=== PATIENT | female | born 1945 | race Caucasian/White ===

== ENCOUNTER 2017-03-30 16:43 | Observation (INO) | payer OTHER ==
[~2017-03-30] VITALS: Ht 160 cm; Wt 78.1 kg
[2017-03-30] MEDS ORDERED: SODIUM CHLORIDE 0.9% 1000ML 1,000 ML IV STA (17:08)
--- NOTE | 2017-03-30 17:30 | DIAGNOSTIC IMAGING REPORT ---
CHEST ONE VIEW PORTABLE CLINICAL HISTORY: 72 years-old Female presenting with EVALUATE WEAKNESS, carbon monoxide poisoning. TECHNIQUE: Portable upright AP view of the chest was obtained. COMPARISON: 08/19/2006. FINDINGS: Left subclavian implanted cardiac defibrillator with leads to the right atrium, right ventricular apex, and coronary sinus, which is new from prior exam in 2006. Atherosclerosis of aortic arch. Cardiac silhouette mildly prominent, unchanged. Lungs and pleural spaces clear. Osseous structures normal. Upper abdomen normal. IMPRESSION: 1. No acute cardiopulmonary disease. Electronically signed by: Filiberto Elizabeth M.D. 03/30/2017 5:28 PM Dictated Date/Time: 03/30/2017 5:27 PM
[2017-03-30 17:39] LABS: URINE APPEARANCE CLOUDY (CLEAR); URINE BILIRUBIN NEG (NEG); URINE COLOR YELLOW; URINE EPITHELIAL CELL AUTO >30 /lpf (0-5); URINE NITRITE NEG (NEG); URINE SPECIFIC GRAVITY 1.022 (1.000-1.030); UROBILINOGEN NEG (NEG)
[2017-03-30 17:40] LABS: MANUAL MICROSCOPIC REQUIRED? NO; REVIEW REQ? YES
[2017-03-30] MEDS ORDERED: ASPI81TA28 PO (17:56)
[2017-03-30] MEDS ORDERED: OXYC-609 PO (17:56)
[2017-03-30] MEDS ORDERED: LISI20TA3 PO (17:56)
[2017-03-30] MEDS ORDERED: CTP/1 PO (17:56)
[2017-03-30] MEDS ORDERED: METO100T44 PO (17:56)
[2017-03-30] MEDS ORDERED: AMLO2.5T PO (17:56)
[2017-03-30] MEDS ORDERED: ATOR-24 PO (17:56)
[2017-03-30] MEDS ORDERED: PANT40TA PO (18:01)
[2017-03-30 18:10] LABS: PROTHROMBIN TIME (PATIENT) 10.7 SECONDS (9.0-12.0)
[2017-03-30 18:18] LABS: ALT/SGPT 40 U/L (12-78); BLOOD UREA NITROGEN 53 mg/dl (7-18); BUN/CREATININE RATIO 32.1 (10-20); CALCIUM 8.7 mg/dl (8.5-10.1); CARBON DIOXIDE 27 mmol/L (21-32); CHLORIDE 98 mmol/L (98-107); CREATININE 1.64 mg/dl (0.60-1.20); GLUCOSE 90 mg/dl (70-99); MAGNESIUM 2.1 mg/dl (1.8-2.4); POTASSIUM 3.9 mmol/L (3.5-5.1); SODIUM 131 mmol/L (136-145)
[2017-03-30 18:29] LABS: ALKALINE PHOSPHATASE 73 U/L (45-117); AST/SGOT 56 U/L (15-37); THYROID STIMULATING HORMONE 0.313 uIu/ml (0.300-4.500)
[2017-03-30 18:37] LABS: HEMATOCRIT 38.3 % (37-47); MEAN CELL VOLUME 97.7 fL (80-100); MEAN CORPUSCULAR HEMOGLOBIN 33.2 pg (25-34); MEAN CORPUSCULAR HGB CONC 33.9 g/dl (32-36); MEAN PLATELET VOLUME 12.1 fL (7.4-10.4); PLATELET COUNT 107 K/uL (130-400); RED BLOOD COUNT 3.92 M/uL (4.2-5.4); WHITE BLOOD COUNT 10.16 K/uL (4.8-10.8)
[2017-03-30 18:39] LABS: BASO % 0.1 %; BASO ABS # 0.01 K/uL (0-0.2); COMPLETE YES; EOS % 1.2 %; IG% 0.3 %; LYMPH % 31.6 %; LYMPH ABS # 3.21 K/uL (1.2-3.4); MONO % 10.4 %; NEUT % 56.4 %; PLT ESTIMATE DECREASED
--- NOTE | 2017-03-30 18:52 | DIAGNOSTIC IMAGING REPORT ---
CT SCAN OF THE BRAIN WITHOUT IV CONTRAST CLINICAL HISTORY: Weakness. Change in mental status. COMPARISON STUDY: No priors. TECHNIQUE: Unenhanced axial CT scan of the brain is performed from the vertex to the skull base. CT DOSE: 537.48 mGy.cm FINDINGS: Brain parenchyma: There are age-related involutional changes noting mild subcortical and periventricular microangiopathic change. There is no hemorrhage, mass effect, or evidence of acute territorial ischemia by CT criteria. Roman-white matter is preserved. No extra-axial fluid collection is seen. Ventricles, sulci, cisterns: Prominent secondary to involutional change. Intracranial vasculature: There is atherosclerotic calcification of the cavernous carotid arteries. Calvarium: Unremarkable. Sinuses and mastoids: The visualized paranasal sinuses are clear. The mastoid air cells are well pneumatized. Orbits: The bony orbits are grossly intact. There is a right ocular lens implant. IMPRESSION: There is no hemorrhage, mass effect, or evidence of acute territorial ischemia by CT criteria. Electronically signed by: Saeed Guallpa M.D. 03/30/2017 6:51 PM Dictated Date/Time: 03/30/2017 6:49 PM
--- NOTE | 2017-03-30 20:35 | EMERGENCY ROOM VISIT NOTE ---
History Report prepared by Elida: Cely Naik Under the Supervision of: Dr. Roman Sanabria M.D. First contact with patient: 17:01 Chief Complaint: OTHER COMPLAINT Stated Complaint: CARBON MONOXIDE INTAKE/ COAX4 History of Present Illness The patient is a 72 year old female who presents to the Emergency Room with complaints of an episode of carbon monoxide intake occurring two hours ago. Per nursing staff, the patient was at the doctor today and went out to her car. They state that the patient was found 2 hours later, according to staff at [facility], sleeping in her car with the smell of exhaust. They state that the [place] sewer that found her removed her from the car and she was not able to ambulate on her own. They report that at this time they called 911. The patient states that she was confused last night and [place]. She states that she did today as well. She reports that she went to [facility] today for what she believed was an abscess on her eye. She states that while she was driving there she noticed that she had blurry vision and was struggling to focus her eyes. The patient complains of fatigue, vomiting this week, nausea this week, cough with phlegm production, shortness of breath, shakes recently, and difficulty urinating due to a prolapsed uterus. The patient denies remembering what happened. She notes that her car does have an exhaust leak. The patient notes that her 3 months ago. The patient currently rates her pain as a 4/10 in severity. Pt denies headache, fevers, chills, diaphoresis neck pain, chest pain, abdominal pain, new back pain, melena, hematochezia, numbness, weakness, lymphadenopathy, rash, or other complaints. Source of History: patient, nursing staff Onset: two hours ago Position: other (global) Symptom Intensity: 4/10 Quality: other (global) Timing: other (episode) Associated Symptoms: + cough, + SOB, + nausea, + vomiting, + urinary symptoms, + fatigue Note: The patient complains of vision changes and the shakes. Review of Systems See HPI for pertinent positives and negatives. A total of ten systems were reviewed and were otherwise negative. Past Medical & Surgical Medical Problems: (1) Altered mental status (2) H/O cardiac pacemaker Family History No pertinent family history Social History Smoking Status: Current Every Day Smoker Marital Status: Housing Status: lives alone Current/Historical Medications Scheduled Amlodipine (Norvasc), 2.5 MG PO QAM Aspirin (Aspirin Ec), 81 MG PO QAM Atorvastatin (Lipitor), 40 MG PO QPM Clonidine Hcl (Catapres), 0.1 MG PO BID Lisinopril (Prinivil), 20 MG PO BID Metoprolol Succ (Toprol Xl) (Toprol-Xl ), 100 MG PO QAM Pantoprazole (Protonix), 40 MG PO QAM Scheduled PRN Oxycodone HCl (Oxycodone HCl), 5 MG PO Q6 PRN for Pain Allergies Coded Allergies: NSAIDs (Unverified Allergy, Severe, GI ISSUES, 03/30/17) Isosorbide Nitrate (Unverified Allergy, Unknown, VOMIT/HEADACHE, 03/30/17) Tramadol (Unverified Allergy, Unknown, VOMITING, 03/30/17) Uncoded Allergies: NONSTEROIDAL (Allergy, Mild, 06/26/09) Physical Exam Vital Signs Date Time Temp Pulse Resp B/P (MAP) Pulse Ox O2 Delivery O2 Flow Rate FiO2 03/30/17 19:11 93 18 120/70 93 Room Air 03/30/17 18:17 89 20 96/60 97 Non-Rebreather 15.0 03/30/17 18:13 68 20 107/64 100 Non-Rebreather 15.0 72 107/67 75 93/60 03/30/17 17:22 99 Oxymask 15.0 03/30/17 17:22 99 Mask 15.0 03/30/17 17:20 69 03/30/17 16:57 37.0 64 20 93/58 91 Room Air Physical Exam GENERAL: Awake, alert, mildly depressed appearing, no distress HENT: Normocephalic, atraumatic. TM's normal. Oropharynx unremarkable. EYES: PERRL. EOMI. Normal conjunctiva. Sclera non-icteric. NECK: Supple. No nuchal rigidity. FROM. No JVD or bruit. RESPIRATORY: CTA CARDIAC: RRR. No murmur. ABDOMEN: Soft, non distended. No tenderness to palpation. No rebound or guarding. No masses. RECTAL: Deferred. MUSCULOSKELETAL: Unremarkable. No edema. No discoloration. Gross motor strength symmetric. NEURO: Cranial nerves 2-12 grossly intact. Normal sensorium. No sensory or motor deficits noted. Speech normal. No pronator drift. SKIN: No rash or jaundice noted. LYMPH: No adenopathy. Medical Decision & Procedures ER Provider Diagnostic Interpretation: Radiology results as stated below per my review and radiologist interpretation: CHEST ONE VIEW PORTABLE CLINICAL HISTORY: 72 years-old Female presenting with EVALUATE WEAKNESS, carbon monoxide poisoning. TECHNIQUE: Portable upright AP view of the chest was obtained. COMPARISON: 08/19/2006. FINDINGS: Left subclavian implanted cardiac defibrillator with leads to the right atrium, right ventricular apex, and coronary sinus, which is new from prior exam in 2006. Atherosclerosis of aortic arch. Cardiac silhouette mildly prominent, unchanged. Lungs and pleural spaces clear. Osseous structures normal. Upper abdomen normal. IMPRESSION: 1. No acute cardiopulmonary disease. Electronically signed by: Filiberto Elizabeth M.D. 03/30/2017 5:28 PM Dictated Date/Time: 03/30/2017 5:[address] SCAN OF THE BRAIN WITHOUT IV CONTRAST CLINICAL HISTORY: Weakness. Change in mental status. COMPARISON STUDY: No priors. TECHNIQUE: Unenhanced axial CT scan of the brain is performed from the vertex to the skull base. CT DOSE: 537.48 mGy.cm FINDINGS: Brain parenchyma: There are age-related involutional changes noting mild subcortical and periventricular microangiopathic change. There is no hemorrhage, mass effect, or evidence of acute territorial ischemia by CT criteria. Roman-white matter is preserved. No extra-axial fluid collection is seen. Ventricles, sulci, cisterns: Prominent secondary to involutional change. Intracranial vasculature: There is atherosclerotic calcification of the cavernous carotid arteries. Calvarium: Unremarkable. Sinuses and mastoids: The visualized paranasal sinuses are clear. The mastoid air cells are well pneumatized. Orbits: The bony orbits are grossly intact. There is a right ocular lens implant. IMPRESSION: There is no hemorrhage, mass effect, or evidence of acute territorial ischemia by CT criteria. Electronically signed by: Saeed Guallpa M.D. 03/30/2017 6:51 PM Dictated Date/Time: 03/30/2017 6:49 PM Laboratory Results 03/30/17 17:35 Red Blood Count 3.92, Mean Corpuscular Volume 97.7, Mean Corpuscular Hemoglobin 33.2, Mean Corpuscular Hemoglobin Concent 33.9, Mean Platelet Volume 12.1, Neutrophils (%) (Auto) 56.4, Lymphocytes (%) (Auto) 31.6, Monocytes (%) (Auto) 10.4, Eosinophils (%) (Auto) 1.2, Basophils (%) (Auto) 0.1, Neutrophils # (Auto ) 5.73, Lymphocytes # (Auto) 3.21, Monocytes # (Auto) 1.06, Eosinophils # (Auto ) 0.12, Basophils # (Auto) 0.01 03/30/17 17:35 Test 03/30/17 17:20 03/30/17 17:35 03/30/17 17:44 03/30/17 18:07 Urine Color YELLOW Urine Appearance CLOUDY (CLEAR) Urine pH 5.0 (4.5-7.5) Urine Specific [place] 1.022 (1.000-1.030) Urine Protein TRACE (NEG) Urine Glucose (UA) NEG (NEG) Urine Ketones NEG (NEG) Urine Occult Blood NEG (NEG) Urine Nitrite NEG (NEG) Urine Bilirubin NEG (NEG) Urine Urobilinogen NEG (NEG) Urine Leukocyte Esterase TRACE (NEG) Urine WBC (Auto) 5-10 /hpf (0-5) Urine RBC (Auto) 0-4 /hpf (0-4) Urine Hyaline Casts (Auto) 10-30 /lpf (0-5) Urine Epithelial Cells (Auto) >30 /lpf (0-5) Urine Bacteria (Auto) NEG (NEG) Urine Crystals CALCIUM OXALATE (NONE White Blood Count 10.16 K/uL (4.8-10.8) Red Blood Count 3.92 M/uL (4.2-5.4) Hemoglobin 13.0 g/dL (12.0-16.0) Hematocrit 38.3 % (37-47) Mean Corpuscular Volume 97.7 fL (80-100) Mean Corpuscular Hemoglobin 33.2 pg (25-34) Mean Corpuscular Hemoglobin Concent 33.9 g/dl (32-36) Platelet Count 107 K/uL (130-400) Mean Platelet Volume 12.1 fL (7.4-10.4) Neutrophils (%) (Auto) 56.4 % Lymphocytes (%) (Auto) 31.6 % Monocytes (%) (Auto) 10.4 % Eosinophils (%) (Auto) 1.2 % Basophils (%) (Auto) 0.1 % Neutrophils # (Auto) 5.73 K/uL (1.4-6.5) Lymphocytes # (Auto) 3.21 K/uL (1.2-3.4) Monocytes # (Auto) 1.06 K/uL (0.11-0.59) Eosinophils # (Auto) 0.12 K/uL (0-0.5) Basophils # (Auto) 0.01 K/uL (0-0.2) RDW Standard Deviation 46.7 fL (36.4-46.3) RDW Coefficient of Variation 13.1 % (11.5-14.5) Immature Granulocyte % (Auto) 0.3 % Immature Granulocyte # (Auto) 0.03 K/uL (0.00-0.02) Platelet Estimate DECREASED Prothrombin Time 10.7 SECONDS (9.0-12.0) Prothromb Time International Ratio 1.0 (0.9-1.1) Activated Partial Thromboplast Time 25.5 SECONDS (21.0-31.0) Partial Thromboplastin Ratio 1.0 Anion Gap 7.0 mmol/L (3-11) Est Creatinine Clear Calc Drug Dose 31.1 ml/min Estimated GFR () 36.3 Estimated GFR (Non- 31.4 BUN/Creatinine Ratio 32.1 (10-20) Calcium Level 8.7 mg/dl (8.5-10.1) Magnesium Level 2.1 mg/dl (1.8-2.4) Total Bilirubin 0.8 mg/dl (0.2-1) Direct Bilirubin 0.3 mg/dl (0-0.2) Aspartate Amino Transf (AST/SGOT) 56 U/L (15-37) Alanine Aminotransferase (ALT/SGPT) 40 U/L (12-78) Alkaline Phosphatase 73 U/L (45-117) Troponin I < 0.015 ng/ml (0-0.045) Total Protein 6.9 gm/dl (6.4-8.2) Albumin 3.3 gm/dl (3.4-5.0) Lipase 177 U/L (73-393) Thyroid Stimulating Hormone (TSH) 0.313 uIu/ml (0.300-4.500) Bedside Glucose 93 mg/dl (70-90) Carboxyhemoglobin 2.2 % [facility] results reviewed by me Medications Administered Medications (Trade) Dose Ordered Sig/Dnaiel Route Start Time Stop Time Status Last Admin Dose Admin Sodium Chloride 1,000 ml @ 125 mls/hr Q8H STAT IV 03/30/17 17:08 03/31/17 01:07 03/30/17 18:11 125 MLS/HR ECG Indication: toxicologic Rate (beats per minute): 63 Rhythm: other (paced rhythm) Findings: no acute ischemic change, no ectopy ED Course 1704: The patient was evaluated in room C11B. A complete history and physical exam was performed. 1707: Ordered NSS 1000 ml @ 125 mls/hr IV. 1937: I reevaluated the patient and she was resting comfortably. I updated her on her test results. 1941: Discussed the patient's case with Dr. Shin. The patient will be evaluated for further treatment and disposition. Medical Decision Triage Nursing notes reviewed. The patient's presentation and history were concerning for AMS. Etiologies such as metabolic, infection, hypo/hyperglycemia, electrolyte abnormalities, cardiac sources, intracerebral event, toxicologic, neurologic, as well as others were entertained. Patient was evaluated. She had a nonfocal examination. She noted confusion over the last [address] was unremarkable. Chest x-ray revealed no acute pathology. Her metabolic workup revealed some mild dehydration on chemistry panel. She had no significant abnormalities on CBC. She has a mild thrombocytopenia. The patient had an unremarkable urinalysis. She was hydrated. She was given dinner. Because of the confusion and situation further evaluation and management in the hospital was felt to be appropriate. The patient had a consultation placed with internal medicine. She was evaluated in the Emergency Room for further management. Medication Reconcilliation Current Medication List: was personally reviewed by me Blood Pressure Screening Patient's blood pressure: Normal blood pressure Will be further monitored by hospitalist. Consults Time Called: 1931 Consulting Physician: Dr. Pratik Henry Returned Call: 1941 Discussed the patient's case with Dr. Shin. The patient will be evaluated for further treatment and disposition. Impression Primary Impression: Altered mental status Additional Impression: Dehydration Scribe Attestation The scribe's documentation has been prepared under my direction and personally reviewed by me in its entirety. I confirm that the note above accurately reflects all work, treatment, procedures, and medical decision making performed by me. Departure Information Dispostion Being Evaluated By Hospitalist Referrals Rikki Beaulieu M.D. (PCP) Patient Instructions My [facility] Problem Qualifiers
[2017-03-30] MEDS ORDERED: NTRGSL/4 UT (20:48)
[2017-03-30] MEDS ORDERED: AMOX875T PO (20:48)
[2017-03-30] MEDS ORDERED: ACETAMINOPHEN 325 MG TAB PO PRN (21:00)
[2017-03-30 21:02] VITALS: BP 86/54; PULSE 75; TEMP 37; Ht 160 cm; Wt 78.1 kg
[2017-03-30] MEDS ORDERED: IV FLUIDS COMPLETED PRN (21:15)
[2017-03-30 22:39] VITALS: BP 83/53; PULSE 72; TEMP 37.2; O2SAT 95
--- NOTE | 2017-03-30 22:53 | History and Physical ---
History & Physical Date & Time of Service: Mar 30, 2017 at 20:45 Chief Complaint: Carbon Monoxide Intake/ Coax4 Primary Care Physician: Roman Ennis III, M.D. History of Present Illness Source: patient, clinic records, hospital records, friend 72 year old female with PMH LV mural thrombus, pacemaker, Dyslipidemia, Ischemic cardiomyopathy was brought to the Emergency Room with complaints of altered mental status. As per [facility] document Pt was at the [facility] to see Dr. Giron for cellulitis of right eyelid for which she was given Augmentin. She was sent home. Pt was found by a bystander in the parking lot inside her car with the engine one. As per ER chart, She was found 2 hours later after her office appointment, sleeping in her car with the smell of exhaust. She said that her car has an exhaust leaks. She was assessed by the [facility] staff and she was found to be confused and weak. Pt said that she had been vomiting for the last 4 days. She said that last night she got lost because she was not able to find her way to go home. She said that she recently moved to a new house about 1 week ago and she is not very familiar with the area. She said that she could not see well because of the right eyelid cellulitis that caused her to have blurry vision. Pt lost her 3 months ago. She said that her urine has been very concentrated. Currently she said that she feels better. she said that she is having neck pain because she fell asleep in her car. She denies any chest pain, palpitation, dizziness and SOB. Family History No pertinent family history Social History Smoking Status: Current Every Day Smoker Marital Status: Multi-Drug Resistant Organisms History of MDRO: No Allergies Coded Allergies: NSAIDs (Unverified Allergy, Severe, GI ISSUES, 03/30/17) Isosorbide Nitrate (Unverified Allergy, Unknown, VOMIT/HEADACHE, 03/30/17) Tramadol (Unverified Allergy, Unknown, VOMITING, 03/30/17) Uncoded Allergies: NONSTEROIDAL (Allergy, Mild, 06/26/09) Home Medications Scheduled Amlodipine (Norvasc), 2.5 MG PO QAM Amoxicillin & Pot Clavulanate (Augmentin 875-125 mg), 875 MG PO BID Aspirin (Aspirin Ec), 81 MG PO QAM Atorvastatin (Lipitor), 40 MG PO QPM Clonidine Hcl (Catapres), 0.1 MG PO BID Lisinopril (Prinivil), 20 MG PO BID Metoprolol Succ (Toprol Xl) (Toprol-Xl ), 100 MG PO QAM Nitroglycerin (Nitrostat), 0.4 MG UT PRN Pantoprazole (Protonix), 40 MG PO QAM Scheduled PRN Oxycodone HCl (Oxycodone HCl), 5 MG PO Q6 PRN for Pain Review of Systems Constitutional: + weakness, No fever, No chills Eyes: + worsening of vision, + diplopia ENT: No nasal symptoms, No sore throat Respiratory: No cough, No wheezing, No shortness of breath Cardiovascular: No chest pain, No orthopnea, No palpitations Abdomen: + nausea, + vomiting, No pain Musculoskeletal: No swelling, No calf pain Genitourinary - Female: + problem reported (urine concentrate) Neurologic: + weakness, + problem reported (altered mental status) Psychiatric: No substance abuse Endocrine: + fatigue Hematologic / Lymphatic: No abnormal bleeding/bruising Integumentary: No rash, No itch Physical Exam Vital Signs Date Time Temp Pulse Resp B/P (MAP) Pulse Ox O2 Delivery O2 Flow Rate FiO2 03/30/17 19:11 93 18 120/70 93 Room Air 03/30/17 18:17 89 20 96/60 97 Non-Rebreather 15.0 03/30/17 18:13 68 20 107/64 100 Non-Rebreather 15.0 72 107/67 75 93/60 03/30/17 17:22 99 Oxymask 15.0 03/30/17 17:22 99 Mask 15.0 03/30/17 17:20 69 03/30/17 16:57 37.0 64 20 93/58 91 Room Air General Appearance: WD/WN, no apparent distress Head: normocephalic, atraumatic Eyes: PERRL, EOMI, + pertinent finding (inferior right eyelid swelling) ENT: hearing grossly normal Neck: no JVD, trachea midline Respiratory/Chest: lungs clear, normal breath sounds, no respiratory distress, no accessory muscle use Cardiovascular: regular rate, rhythm, no JVD Abdomen/GI: normal bowel sounds, soft Back: no CVA tenderness Extremities/Musculoskelatal: no calf tenderness, no pedal edema Neurologic/Psych: neuro ophthalmologist II-XII nml as tested, no motor/sensory deficits, alert, normal mood/affect, oriented x 3 Skin: warm/dry, no rash Diagnostics Laboratory Results Results Past 24 Hours Test 03/30/17 17:20 03/30/17 17:35 03/30/17 17:44 03/30/17 18:07 Range/Units Urine Color YELLOW Urine Appearance CLOUDY CLEAR Urine pH 5.0 4.5-7.5 Urine Specific [place] 1.022 1.000-1.030 Urine Protein TRACE NEG Urine Glucose (UA) NEG NEG Urine Ketones NEG NEG Urine Occult Blood NEG NEG Urine Nitrite NEG NEG Urine Bilirubin NEG NEG Urine Urobilinogen NEG NEG Urine Leukocyte Esterase TRACE NEG Urine WBC (Auto) 5-10 0-5 /hpf Urine RBC (Auto) 0-4 0-4 /hpf Urine Hyaline Casts (Auto) 10-30 0-5 /lpf Urine Epithelial Cells (Auto) >30 0-5 /lpf Urine Bacteria (Auto) NEG NEG Urine Crystals CALCIUM OXALATE NONE PRSENT White Blood Count 10.16 4.8-10.8 K/uL Red Blood Count 3.92 4.2-5.4 M/uL Hemoglobin 13.0 12.0-16.0 g/dL Hematocrit 38.3 37-47 % Mean Corpuscular Volume 97.7 80-100 fL Mean Corpuscular Hemoglobin 33.2 25-34 pg Mean Corpuscular Hemoglobin Concent 33.9 32-36 g/dl Platelet Count 107 130-400 K/uL Mean Platelet Volume 12.1 7.4-10.4 fL Neutrophils (%) (Auto) 56.4 % Lymphocytes (%) (Auto) 31.6 % Monocytes (%) (Auto) 10.4 % Eosinophils (%) (Auto) 1.2 % Basophils (%) (Auto) 0.1 % Neutrophils # (Auto) 5.73 1.4-6.5 K/uL Lymphocytes # (Auto) 3.21 1.2-3.4 K/uL Monocytes # (Auto) 1.06 0.11-0.59 K/uL Eosinophils # (Auto) 0.12 0-0.5 K/uL Basophils # (Auto) 0.01 0-0.2 K/uL RDW Standard Deviation 46.7 36.4-46.3 fL RDW Coefficient of Variation 13.1 11.5-14.5 % Immature Granulocyte % (Auto) 0.3 % Immature Granulocyte # (Auto) 0.03 0.00-0.02 K/uL Platelet Estimate DECREASED Prothrombin Time 10.7 9.0-12.0 SECONDS Prothromb Time International Ratio 1.0 0.9-1.1 Activated Partial Thromboplast Time 25.5 21.0-31.0 SECONDS Partial Thromboplastin Ratio 1.0 Sodium Level 131 136-145 mmol/L Potassium Level 3.9 3.5-5.1 mmol/L Chloride Level 98 98-107 mmol/L Carbon Dioxide Level 27 21-32 mmol/L Anion Gap 7.0 3-11 mmol/L Blood Urea Nitrogen 53 7-18 mg/dl Creatinine 1.64 0.60-1.20 mg/dl Est Creatinine Clear Calc Drug Dose 31.1 ml/min Estimated GFR () 36.3 Estimated GFR (Non- 31.4 BUN/Creatinine Ratio 32.1 10-20 Random Glucose 90 70-99 mg/dl Calcium Level 8.7 8.5-10.1 mg/dl Magnesium Level 2.1 1.8-2.4 mg/dl Total Bilirubin 0.8 0.2-1 mg/dl Direct Bilirubin 0.3 0-0.2 mg/dl Aspartate Amino Transf (AST/SGOT) 56 15-37 U/L Alanine Aminotransferase (ALT/SGPT) 40 12-78 U/L Alkaline Phosphatase 73 45-117 U/L Troponin I < 0.015 0-0.045 ng/ml Total Protein 6.9 6.4-8.2 gm/dl Albumin 3.3 3.4-5.0 gm/dl Lipase 177 73-393 U/L Thyroid Stimulating Hormone (TSH) 0.313 0.300-4.500 uIu/ml Bedside Glucose 93 70-90 mg/dl Carboxyhemoglobin 2.2 % [facility] Microbiology Results 03/30/17 Urine Culture, Received Pending Diagnostic Radiology CT SCAN OF THE BRAIN WITHOUT IV CONTRAST CLINICAL HISTORY: Weakness. Change in mental status. COMPARISON STUDY: No priors. TECHNIQUE: Unenhanced axial CT scan of the brain is performed from the vertex to the skull base. CT DOSE: 537.48 mGy.cm FINDINGS: Brain parenchyma: There are age-related involutional changes noting mild subcortical and periventricular microangiopathic change. There is no hemorrhage, mass effect, or evidence of acute territorial ischemia by CT criteria. Roman-white matter is preserved. No extra-axial fluid collection is seen. Ventricles, sulci, cisterns: Prominent secondary to involutional change. Intracranial vasculature: There is atherosclerotic calcification of the cavernous carotid arteries. Calvarium: Unremarkable. Sinuses and mastoids: The visualized paranasal sinuses are clear. The mastoid air cells are well pneumatized. Orbits: The bony orbits are grossly intact. There is a right ocular lens implant. IMPRESSION: There is no hemorrhage, mass effect, or evidence of acute territorial ischemia by CT criteria. Electronically signed by: Saeed Guallpa M.D. 03/30/2017 6:51 PM Dictated Date/Time: 03/30/2017 6:49 PM CHEST ONE VIEW PORTABLE CLINICAL HISTORY: 72 years-old Female presenting with EVALUATE WEAKNESS, carbon monoxide poisoning. TECHNIQUE: Portable upright AP view of the chest was obtained. COMPARISON: 08/19/2006. FINDINGS: Left subclavian implanted cardiac defibrillator with leads to the right atrium, right ventricular apex, and coronary sinus, which is new from prior exam in 2006. Atherosclerosis of aortic arch. Cardiac silhouette mildly prominent, unchanged. Lungs and pleural spaces clear. Osseous structures normal. Upper abdomen normal. IMPRESSION: 1. No acute cardiopulmonary disease. Electronically signed by: Filiberto Elizabeth M.D. 03/30/2017 5:28 PM Dictated Date/Time: 03/30/2017 5:27 PM The status of this report is Signed. Impression Assessment and Plan Altered Mental Status Etiology Unknown Possible related to dehydration CT head showed no acute intracranial abnormality No focal neuro deficit Carboxyhemoglobin wnl UA showed trace leukocytes Continue neuro check Received IVF Unable to get MRI head due to pacemaker If symptoms reoccurs or develops any focal neuro deficit recommend to repeat CT head tomorrow PT/OT eval fall precaution Acute kidney injury Mostly related to hypovolemia, dehydration due to recent GI symptoms ( vomiting) Creatine on admission 1.64 Last creatine was 0.7 on 08/03 Received IVF 1L NS hold Lisinopril Avoid nephrotoxic agents Monitor BMP Viral Gastroenteritis Tolerated diet Received IVF symptoms resolved Hypotension Related to Hypovolemia/ dehydration Hold BP med for now Continue monitor BP Biventricular Pacemaker/ AICD Stable Weakness Fall precaution PT/OT CAD/Ischemic Cardiomyopathy Denies any chest pain Continue Lipitor/Asa Metoprolol on hold due to low BP Continue monitor in telemetry Recent ECHO on 03/07 The examination is adequate to evaluate the referral indication. The left ventricular cavity size is normal. The wall thickness is mildly increased in segments with normal wall motion. There is severe hypokinesis of the base and mid level wall segments of the inferior inferoseptal celeste and basal posterior wall. The qualitative LV ejection fraction is 4549% (mildly reduced). The left ventricular diastolic function is mildly abnormal (grade I). There is no left ventricular mural thrombus. No significant valvular disease is present. DVT px on heparin subq Code Status DNR Disposition Discharge home tomorrow if medically stable Level of Care Telemetry Resuscitation Status DO NOT RESUSCITATE VTE Prophylaxis VTE Risk Assessment Done? Y/N: Yes Risk Level: Moderate Given or contraindicated: Unfractionated heparin SQ
[2017-03-30] MEDS: AMOXICILLIN/CLAVULANATE TAB 875 MG TAB PO SCH (23:03)
[2017-03-30] MEDS: OXYCODONE HCL IR 5 MG TAB (IMMEDIATE RELEASE) PO PRN (23:04)
[2017-03-30] MEDS: ATORVASTATIN 20 MG TAB PO SCH (23:04)
[2017-03-30] MEDS: HEPARIN SOD 5000 UNIT/0.5 ML CARP SQ SCH (23:04)
[2017-03-30 23:49] VITALS: BP 80/51; PULSE 74; TEMP 36.7; O2SAT 91
[2017-03-31] VITALS (8 sets, daily range): BP systolic 85–128; BP diastolic 57–92; PULSE 77–92; TEMP 36.7–37.5; O2SAT 92–97
[2017-03-31] MEDS ORDERED: SODIUM CHLORIDE 0.9% 1000ML 1,000 ML IV SCH (01:15)
[2017-03-31] MEDS: HEPARIN SOD 5000 UNIT/0.5 ML CARP SQ SCH ×3 (05:51→20:58)
[2017-03-31 06:59] LABS: BUN/CREATININE RATIO 33.9 (10-20); CREATININE 1.1 mg/dl (0.60-1.20)
[2017-03-31 07:12] LABS: HEMATOCRIT 36.8 % (37-47); MEAN CELL VOLUME 97.6 fL (80-100); MEAN CORPUSCULAR HEMOGLOBIN 31.3 pg (25-34); MEAN CORPUSCULAR HGB CONC 32.1 g/dl (32-36); MEAN PLATELET VOLUME 12.3 fL (7.4-10.4); PLATELET COUNT 97 K/uL (130-400); RED BLOOD COUNT 3.77 M/uL (4.2-5.4)
[2017-03-31 07:13] LABS: PLT ESTIMATE DECREASED
[2017-03-31] MEDS: ASPIRIN 81 MG ECTAB PO SCH (07:58)
[2017-03-31] MEDS: PANTOprazole SOD 40 MG TAB PO SCH (07:58)
[2017-03-31] MEDS: AMOXICILLIN/CLAVULANATE TAB 875 MG TAB PO SCH ×2 (07:58→16:48)
[2017-03-31] MEDS ORDERED: SODIUM CHLORIDE 0.9% 500ML 500 ML IV ONE (11:30)
[2017-03-31] MEDS: SODIUM CHLORIDE 0.9% 1000ML 1,000 ML IV SCH ×2 (12:15→21:58)
[2017-03-31] MEDS: OXYCODONE HCL IR 5 MG TAB (IMMEDIATE RELEASE) PO PRN (13:48)
--- NOTE | 2017-03-31 16:48 | Progress Note ---
Internal Med Progress Note Date of Service: Mar 31, 2017. Provider Documentation: SUBJECTIVE: resting comfortably denies any chest pain or sob no nausea today tolerating regular diet says since last four days was having vomiting yesterday after seeing pcp for right eye lid infection when she went to car she suddenly passed out. Says felt somewhat shivering before passed out and dont remember what happened later.Denies any incontinence OBJECTIVE: Vital Signs-as noted below Exam: General-alert and oriented. Not in distress ENT-normal hearing Neck-no neck masses Lungs- cta b/l no wheezing or crackles Heart-s1 and s2 heard regular rate and rhythm no murmurs Abdomen-soft bowel sounds present no tenderness present no distension Extremities-no edema no erythema Neuro-alert and oriented moves extremities Lab data as noted below. ASSESSMENT & PLAN: Altered Mental Status Syncope CT head showed no acute intracranial abnormality Carboxyhemoglobin wnl Unable to get MRI head due to pacemaker possible dehydration as was having vomiting last few days and BP on lower side in ER IV fluids pace maker interrogation, echo, carotid Doppler and eeg monitor in tele Acute kidney injury Mostly related to hypovolemia, dehydration due to recent GI symptoms ( vomiting) Creatine on admission 1.64 holding Lisinopril on fluids resolved Viral Gastroenteritis n/v for last few days Tolerated regular diet today symptoms resolved Hypotension Related to Hypovolemia/ dehydration Holding BP med for now on iv fluids will monitor Biventricular Pacemaker/ AICD will do pace maker check Weakness Fall precaution PT/OT CAD/Ischemic Cardiomyopathy asymptomatic Continue Lipitor/Asa Metoprolol on hold due to low BP f/u echo. DVT px on heparin subq Code Status DNR Disposition pt/ot to be determined Vital Signs: Date Time Temp Pulse Resp B/P (MAP) Pulse Ox O2 Delivery O2 Flow Rate FiO2 03/31/17 12:39 37.5 77 16 109/62 (78) 94 03/31/17 12:00 Room Air 03/31/17 08:00 Room Air 03/31/17 07:29 37.2 77 18 93/58 (70) 92 Room Air 03/31/17 04:00 Room Air 03/31/17 03:55 36.7 79 16 91/57 (68) 94 Room Air 03/31/17 00:25 16 85/57 (66) Room Air 03/31/17 00:00 Room Air 03/30/17 23:49 36.7 74 16 80/51 (61) 91 Room Air 03/30/17 22:39 37.2 72 17 83/53 (63) 95 03/30/17 21:58 73 18 86/54 93 03/30/17 21:11 75 18 83/59 94 Room Air 03/30/17 21:02 37.0 75 18 86/54 Room Air 03/30/17 19:11 93 18 120/70 93 Room Air 03/30/17 18:17 89 20 96/60 97 Non-Rebreather 15.0 03/30/17 18:13 68 20 107/64 100 Non-Rebreather 15.0 72 107/67 75 93/60 03/30/17 17:22 99 Oxymask 15.0 03/30/17 17:22 99 Mask 15.0 03/30/17 17:20 69 03/30/17 16:57 37.0 64 20 93/58 91 Room Air Lab Results: Results Past 24 Hours Test 03/30/17 17:20 03/30/17 17:34 03/30/17 17:35 03/30/17 17:44 Range/Units Urine Color YELLOW Urine Appearance CLOUDY CLEAR Urine pH 5.0 4.5-7.5 Urine Specific [place] 1.022 1.000-1.030 Urine Protein TRACE NEG Urine Glucose (UA) NEG NEG Urine Ketones NEG NEG Urine Occult Blood NEG NEG Urine Nitrite NEG NEG Urine Bilirubin NEG NEG Urine Urobilinogen NEG NEG Urine Leukocyte Esterase TRACE NEG Urine WBC (Auto) 5-10 0-5 /hpf Urine RBC (Auto) 0-4 0-4 /hpf Urine Hyaline Casts (Auto) 10-30 0-5 /lpf Urine Epithelial Cells (Auto) >30 0-5 /lpf Urine Bacteria (Auto) NEG NEG Urine Crystals CALCIUM OXALATE NONE PRSENT Hepatitis C Antibody Screen PRELIM POS NEG White Blood Count 10.16 4.8-10.8 K/uL Red Blood Count 3.92 4.2-5.4 M/uL Hemoglobin 13.0 12.0-16.0 g/dL Hematocrit 38.3 37-47 % Mean Corpuscular Volume 97.7 80-100 fL Mean Corpuscular Hemoglobin 33.2 25-34 pg Mean Corpuscular Hemoglobin Concent 33.9 32-36 g/dl Platelet Count 107 130-400 K/uL Mean Platelet Volume 12.1 7.4-10.4 fL Neutrophils (%) (Auto) 56.4 % Lymphocytes (%) (Auto) 31.6 % Monocytes (%) (Auto) 10.4 % Eosinophils (%) (Auto) 1.2 % Basophils (%) (Auto) 0.1 % Neutrophils # (Auto) 5.73 1.4-6.5 K/uL Lymphocytes # (Auto) 3.21 1.2-3.4 K/uL Monocytes # (Auto) 1.06 0.11-0.59 K/uL Eosinophils # (Auto) 0.12 0-0.5 K/uL Basophils # (Auto) 0.01 0-0.2 K/uL RDW Standard Deviation 46.7 36.4-46.3 fL RDW Coefficient of Variation 13.1 11.5-14.5 % Immature Granulocyte % (Auto) 0.3 % Immature Granulocyte # (Auto) 0.03 0.00-0.02 K/uL Platelet Estimate DECREASED Prothrombin Time 10.7 9.0-12.0 SECONDS Prothromb Time International Ratio 1.0 0.9-1.1 Activated Partial Thromboplast Time 25.5 21.0-31.0 SECONDS Partial Thromboplastin Ratio 1.0 Sodium Level 131 136-145 mmol/L Potassium Level 3.9 3.5-5.1 mmol/L Chloride Level 98 98-107 mmol/L Carbon Dioxide Level 27 21-32 mmol/L Anion Gap 7.0 3-11 mmol/L Blood Urea Nitrogen 53 7-18 mg/dl Creatinine 1.64 0.60-1.20 mg/dl Est Creatinine Clear Calc Drug Dose 31.1 ml/min Estimated GFR () 36.3 Estimated GFR (Non- 31.4 BUN/Creatinine Ratio 32.1 10-20 Random Glucose 90 70-99 mg/dl Calcium Level 8.7 8.5-10.1 mg/dl Magnesium Level 2.1 1.8-2.4 mg/dl Total Bilirubin 0.8 0.2-1 mg/dl Direct Bilirubin 0.3 0-0.2 mg/dl Aspartate Amino Transf (AST/SGOT) 56 15-37 U/L Alanine Aminotransferase (ALT/SGPT) 40 12-78 U/L Alkaline Phosphatase 73 45-117 U/L Troponin I < 0.015 0-0.045 ng/ml Total Protein 6.9 6.4-8.2 gm/dl Albumin 3.3 3.4-5.0 gm/dl Lipase 177 73-393 U/L Thyroid Stimulating Hormone (TSH) 0.313 0.300-4.500 uIu/ml Bedside Glucose 93 70-90 mg/dl Test 03/30/17 18:07 03/31/17 06:04 03/31/17 12:38 Range/Units Carboxyhemoglobin 2.2 % [facility] White Blood Count 5.90 4.8-10.8 K/uL Red Blood Count 3.77 4.2-5.4 M/uL Hemoglobin 11.8 12.0-16.0 g/dL Hematocrit 36.8 37-47 % Mean Corpuscular Volume 97.6 80-100 fL Mean Corpuscular Hemoglobin 31.3 25-34 pg Mean Corpuscular Hemoglobin Concent 32.1 32-36 g/dl RDW Standard Deviation 46.1 36.4-46.3 fL RDW Coefficient of Variation 13.1 11.5-14.5 % Platelet Count 97 130-400 K/uL Mean Platelet Volume 12.3 7.4-10.4 fL Platelet Estimate DECREASED Sodium Level 137 136-145 mmol/L Potassium Level 4.0 3.5-5.1 mmol/L Chloride Level 104 98-107 mmol/L Carbon Dioxide Level 26 21-32 mmol/L Anion Gap 7.0 3-11 mmol/L Blood Urea Nitrogen 37 7-18 mg/dl Creatinine 1.10 0.60-1.20 mg/dl Est Creatinine Clear Calc Drug Dose 47.4 ml/min Estimated GFR () 58.9 Estimated GFR (Non- 50.8 BUN/Creatinine Ratio 33.9 10-20 Random Glucose 121 70-99 mg/dl Calcium Level 8.0 8.5-10.1 mg/dl Troponin I < 0.015 0-0.045 ng/ml Microbiology Results 03/30/17 Urine Culture - Preliminary, Resulted NO GROWTH - LESS THAN 1,000 COLONIES/...
--- NOTE | 2017-03-31 17:26 | ECHOCARDIOGRAM REPORT ---
*NOTICE TO RECEIVING CONSTITUTION PARTY AGENCY This information is strictly Confidential and protected under [place] law. [place] law prohibits you from making any further disclosure of this information unless further disclosure is expressly permitted by the written consent of the person to whom it pertains or is authorized by law. A general authorization for the release of medical or other information is not sufficient for this purpose. Hospital accepts no responsibility if the information is made available to any other person, INCLUDING THE PATIENT. Interpretation Summary * Name: JEAN-CLAUDE MIRELES Study Date: 03/31/2017 12:31 PM BP: 93/58 mmHg * Patient Location: .[facility]\S\N286\S\2 HR: 77 * : 1945 (M/d/yyyy) Gender: Female Height: 62 in * Age: 72 yrs Ethnicity: CA Weight: 169 lb * Ordering Physician: Humberto Rosenberg * Referring Physician: Self, Referred * Performed By: Danita Santiago RDCS * * Reason For Study: Syncope * BSA: 1.8 m2 * -- Conclusions -- * The left ventricle is normal in size. * There is normal left ventricular wall thickness. * There is severe hypokinesis of the base and mid level wall segments of the inferior inferoseptal celeste and basal posterior wall. * Apical wall motion abnormality may reflect pacemaker activation. * Ejection Fraction = 50-55%. * Grade I diastolic dysfunction, (abnormal relaxation pattern). * Aortic valve sclerosis mild, without significant aortic valvular stenosis. Procedure Details * A complete two-dimensional transthoracic echocardiogram was performed (2D, M-mode, Doppler and color flow Doppler). Left Ventricle * The left ventricle is normal in size. * There is normal left ventricular wall thickness. * Ejection Fraction = 50-55%. * Apical wall motion abnormality may reflect pacemaker activation. * There is severe hypokinesis of the base and mid level wall segments of the inferior inferoseptal celeste and basal posterior wall. Right Ventricle * The right ventricle is normal in size and function. * There is a pacemaker lead in the right ventricle. Atria * The left atrial size is normal. * Right atrial size is normal. * No ASD detected; PFO is not assessed. Mitral Valve * The mitral valve is normal. * There is no mitral valve stenosis. * There is trace mitral regurgitation. Tricuspid Valve * The tricuspid valve anatomy is normal. * There is no tricuspid stenosis. * There is trace tricuspid regurgitation. * Doppler findings do not suggest pulmonary hypertension. Aortic Valve * The aortic valve is trileaflet. * Aortic valve sclerosis mild, without significant aortic valvular stenosis. * No hemodynamically significant valvular aortic stenosis. * No aortic regurgitation is present. Pulmonic Valve * The pulmonic valve is not well visualized. Great Vessels * The aortic root is normal size. Pericardium/Pleural * There is no pericardial effusion. Great Vessels * Normal inferior vena cava diameter and respiratory variation suggests normal central venous pressure. Left Ventricular Diastolic Function * Grade I diastolic dysfunction, (abnormal relaxation pattern). MMode 2D Measurements and Calculations IVSd 0.88 cm IVSs 1.1 cm LVIDd 4.7 cm LVIDs 3.3 cm LVPWd 1.0 cm LVPWs 1.6 cm IVS/LVPW 0.85 FS 30.3 % EDV(Teich) 103.6 ml ESV(Teich) 43.9 ml EF(Teich) 57.7 % EDV(cubed) 105.5 ml ESV(cubed) 35.7 ml EF(cubed) 66.2 % % IVS thick 27.9 % % LVPW thick 53.8 % LV mass(C)d 156.6 grams LV mass(C)dI 88.0 grams/m\S\2 LV mass(C)s 151.7 grams LV mass(C)sI 85.2 grams/m\S\2 SV(Teich) 59.8 ml SI(Teich) 33.6 ml/m\S\2 SV(cubed) 69.8 ml SI(cubed) 39.2 ml/m\S\2 Ao root diam 2.8 cm Ao root area 6.3 cm\S\2 ACS 1.9 cm LA dimension 3.6 cm LA/Ao 1.3 LVOT diam 1.9 cm LVOT area 2.8 cm\S\2 LVAd ap4 29.1 cm\S\2 LVLd ap4 8.0 cm EDV(MOD-sp4) 89.1 ml EDV(sp4-el) 89.9 ml LVAs ap4 17.4 cm\S\2 LVLs ap4 6.2 cm ESV(MOD-sp4) 44.1 ml ESV(sp4-el) 41.7 ml EF(MOD-sp4) 50.5 % EF(sp4-el) 53.7 % LVAd ap2 27.8 cm\S\2 LVLd ap2 8.2 cm EDV(MOD-sp2) 87.6 ml EDV(sp2-el) 79.6 ml LVAs ap2 13.8 cm\S\2 LVLs ap2 6.7 cm ESV(MOD-sp2) 27.2 ml ESV(sp2-el) 24.2 ml EF(MOD-sp2) 69.0 % EF(sp2-el) 69.5 % LVLd %diff 3.0 % EDV(MOD-bp) 86.3 ml LVLs %diff 7.8 % ESV(MOD-bp) 35.4 ml EF(MOD-bp) 58.9 % SV(MOD-sp4) 45.0 ml SI(MOD-sp4) 25.3 ml/m\S\2 SV(MOD-sp2) 60.4 ml SI(MOD-sp2) 34.0 ml/m\S\2 SV(MOD-bp) 50.8 ml SI(MOD-bp) 28.6 ml/m\S\2 SV(sp4-el) 48.3 ml SI(sp4-el) 27.1 ml/m\S\2 SV(sp2-el) 55.3 ml SI(sp2-el) 31.1 ml/m\S\2 Doppler Measurements and Calculations MV E max josemanuel 66.0 cm/sec MV A max josemanuel 94.1 cm/sec MV E/A 0.70 MV dec time 0.15 sec Ao V2 max 202.7 cm/sec Ao max PG 16.5 mmHg Ao max PG (full) 7.5 mmHg Ao V2 mean 122.2 cm/sec Ao mean PG 7.2 mmHg Ao mean PG (full) 3.3 mmHg Ao V2 VTI 34.0 cm RAJESH(I,A) 2.0 cm\S\2 RAJESH(I,D) 2.0 cm\S\2 RAJESH(V,A) 2.1 cm\S\2 RAJESH(V,D) 2.1 cm\S\2 LV V1 max PG 8.9 mmHg LV V1 mean PG 3.9 mmHg LV V1 max 149.4 cm/sec LV V1 mean 92.0 cm/sec LV V1 VTI 23.6 cm SV(Ao) 215.6 ml SI(Ao) 121.2 ml/m\S\2 SV(LVOT) 66.3 ml SI(LVOT) 37.3 ml/m\S\2 PA V2 max 120.2 cm/sec PA max PG 5.8 mmHg TR max josemanuel 250.1 cm/sec
[2017-03-31] MEDS: ATORVASTATIN 20 MG TAB PO SCH (21:00)
[2017-04-01 04:00] VITALS: BP 128/75; PULSE 92; TEMP 37; O2SAT 93
[2017-04-01] MEDS: OXYCODONE HCL IR 5 MG TAB (IMMEDIATE RELEASE) PO PRN (04:44)
[2017-04-01] MEDS: HEPARIN SOD 5000 UNIT/0.5 ML CARP SQ SCH ×2 (05:53→14:00)
[2017-04-01 07:53] VITALS: BP 101/64; PULSE 81; TEMP 37; O2SAT 92
[2017-04-01 08:00] VITALS: O2SAT 92
[2017-04-01] MEDS: SODIUM CHLORIDE 0.9% 1000ML 1,000 ML IV SCH (08:00)
[2017-04-01 08:10] LABS: HEMATOCRIT 33.6 % (37-47); MEAN CELL VOLUME 96.6 fL (80-100); MEAN CORPUSCULAR HEMOGLOBIN 32.5 pg (25-34); MEAN CORPUSCULAR HGB CONC 33.6 g/dl (32-36); RED BLOOD COUNT 3.48 M/uL (4.2-5.4); WHITE BLOOD COUNT 5.33 K/uL (4.8-10.8)
[2017-04-01] MEDS: PANTOprazole SOD 40 MG TAB PO SCH (08:12)
[2017-04-01] MEDS: AMOXICILLIN/CLAVULANATE TAB 875 MG TAB PO SCH (08:12)
[2017-04-01] MEDS: ASPIRIN 81 MG ECTAB PO SCH (08:12)
[2017-04-01 08:25] LABS: BASO % 0.2 %; BASO ABS # 0.01 K/uL (0-0.2); COMPLETE YES; EOS % 1.9 %; IG% 0.4 %; LYMPH % 35.3 %; LYMPH ABS # 1.88 K/uL (1.2-3.4); MEAN PLATELET VOLUME 11.4 fL (7.4-10.4); MONO % 12.4 %; NEUT % 49.8 %; PLATELET COUNT 92 K/uL (130-400)
[2017-04-01 08:50] LABS: CALCIUM 7.9 mg/dl (8.5-10.1); CREATININE 0.69 mg/dl (0.60-1.20); MAGNESIUM 1.5 mg/dl (1.8-2.4); POTASSIUM 3.9 mmol/L (3.5-5.1)
[2017-04-01 12:00] VITALS: O2SAT 95
[2017-04-01 13:04] VITALS: BP 159/75; PULSE 93; TEMP 36.8; O2SAT 95
[2017-04-01] MEDS: MAGNESIUM SULFATE 1GM / D5W 1 GM in PREMIXED IN D5W 100 ML IV SCH ×2 (13:54→14:57)
--- NOTE | 2017-04-01 14:59 | Discharge Instructions ---
Discharge Instructions Date of Service Apr 01, 2017. Admission Reason for Admission: Altered Mental Status Discharge Discharge Diagnosis / Problem: SYNCOPE Discharge Goals Goal(s): Decrease discomfort, Improve function Activity Recommendations Activity Limitations: resume your previous activity . Instructions / Follow-Up Instructions / Follow-Up FOLLOWUP WITH FAMILY DOCTOR Roman Howe III, M.D ON Mar AT 10:45AM STOPPING METOPROLOL, AMLODIPINE AND LISINOPRIL UNTIL SEEN BY FAMILY DOCTOR. TO CONTINUE CLONIDINE TO CHECK BLOOD PRESSURE DAILY AT HOME AND IF ELEVATED PRIOR TO SEEING FAMILY DOCTOR CAN RESTART METOPROLOL Current Hospital Diet Patient's current hospital diet: Regular Diet Discharge Diet Recommended Diet: AHA Diet (Heart Healthy) Pending Studies Studies pending at discharge: no Medical Emergencies . Who to Call and When: Medical Emergencies: If at any time you feel your situation is an emergency, please call 911 immediately. . Non-Emergent Contact Non-Emergency issues call your: Primary Care Provider . . "Provider Documentation" section prepared by Humberto Rosenberg. . VTE Core Measure Inpt VTE Proph given/why not?: Unfractionated heparin SQ
[2017-04-01 15:43] VITALS: BP 159/75; PULSE 93; TEMP 36.8; O2SAT 95
--- NOTE | 2017-04-01 16:51 | Progress Note ---
Internal Med Progress Note Date of Service: Apr 01, 2017. Provider Documentation: SUBJECTIVE: resting comfortably denies any chest pain or sob no fevers eating fine afebrile wants to go home OBJECTIVE: Vital Signs-as noted below Exam: General-alert and oriented. Not in distress ENT-normal hearing Neck-no neck masses Lungs- cta b/l no wheezing or crackles Heart-s1 and s2 heard regular rate and rhythm no murmurs Abdomen-soft bowel sounds present no tenderness present no distension Extremities-no edema no erythema Neuro-alert and oriented moves extremities Lab data as noted below. ASSESSMENT & PLAN: Altered Mental Status Syncope CT head showed no acute intracranial abnormality Carboxyhemoglobin wnl Unable to get MRI head due to pacemaker possible dehydration as was having vomiting last few days and BP on lower side in ER IV fluids echo unremarkable stable wants to go home f/u with pcp closely Acute kidney injury Mostly related to hypovolemia, dehydration due to recent GI symptoms ( vomiting) Creatine on admission 1.64 holding Lisinopril on fluids resolved Viral Gastroenteritis n/v for last few days Tolerated regular diet today symptoms resolved Hypotension Related to Hypovolemia/ dehydration Holding BP med for now on iv fluids resolved HTN on clonidine, Metoprol. lisinopril and amlodipine all are held for hypotension on presentation restart clonidioe on discharge close followup with PCP on coming Monday for further adjustments Biventricular Pacemaker/ AICD says was checked recently Weakness Fall precaution PT/OT CAD/Ischemic Cardiomyopathy asymptomatic Continue Lipitor/Asa Metoprolol on hold due to low BP echo unremarkable. discharged home Vital Signs: Date Time Temp Pulse Resp B/P (MAP) Pulse Ox O2 Delivery O2 Flow Rate FiO2 04/01/17 15:43 36.8 93 20 95 Room Air 04/01/17 13:04 36.8 93 20 159/75 (103) 95 Room Air 04/01/17 12:00 95 Room Air 04/01/17 08:00 92 Room Air 04/01/17 07:53 37.0 81 20 101/64 (76) 92 Room Air 04/01/17 04:00 Room Air 04/01/17 04:00 37.0 92 20 128/75 (92) 93 Room Air 04/01/17 00:00 Room Air 03/31/17 22:59 36.7 83 20 125/73 (90) 97 Room Air 03/31/17 20:10 95 Room Air 03/31/17 19:28 36.9 92 20 128/64 (85) 96 Room Air Lab Results: Results Past 24 Hours Test 04/01/17 07:49 Range/Units White Blood Count 5.33 4.8-10.8 K/uL Red Blood Count 3.48 4.2-5.4 M/uL Hemoglobin 11.3 12.0-16.0 g/dL Hematocrit 33.6 37-47 % Mean Corpuscular Volume 96.6 80-100 fL Mean Corpuscular Hemoglobin 32.5 25-34 pg Mean Corpuscular Hemoglobin Concent 33.6 32-36 g/dl Platelet Count 92 130-400 K/uL Mean Platelet Volume 11.4 7.4-10.4 fL Neutrophils (%) (Auto) 49.8 % Lymphocytes (%) (Auto) 35.3 % Monocytes (%) (Auto) 12.4 % Eosinophils (%) (Auto) 1.9 % Basophils (%) (Auto) 0.2 % Neutrophils # (Auto) 2.66 1.4-6.5 K/uL Lymphocytes # (Auto) 1.88 1.2-3.4 K/uL Monocytes # (Auto) 0.66 0.11-0.59 K/uL Eosinophils # (Auto) 0.10 0-0.5 K/uL Basophils # (Auto) 0.01 0-0.2 K/uL RDW Standard Deviation 45.0 36.4-46.3 fL RDW Coefficient of Variation 12.9 11.5-14.5 % Immature Granulocyte % (Auto) 0.4 % Immature Granulocyte # (Auto) 0.02 0.00-0.02 K/uL Sodium Level 138 136-145 mmol/L Potassium Level 3.9 3.5-5.1 mmol/L Chloride Level 107 98-107 mmol/L Carbon Dioxide Level 25 21-32 mmol/L Anion Gap 6.0 3-11 mmol/L Blood Urea Nitrogen 15 7-18 mg/dl Creatinine 0.69 0.60-1.20 mg/dl Est Creatinine Clear Calc Drug Dose 75.1 ml/min Estimated GFR () 102.2 Estimated GFR (Non- 88.2 BUN/Creatinine Ratio 22.0 10-20 Random Glucose 100 70-99 mg/dl Calcium Level 7.9 8.5-10.1 mg/dl Magnesium Level 1.5 1.8-2.4 mg/dl
--- NOTE | 2017-04-01 18:24 | Discharge Summary ---
Discharge Summary Date of Service Apr 01, 2017. Discharge Summary Admission Date: Mar 30, 2017 at 20:34 Discharge Date: Apr 01, 2017 Discharge Disposition: Home Principal Diagnosis: AMS, syncope Secondary Diagnoses/Problems: LV mural thrombus, pacemaker, Dyslipidemia, Ischemic cardiomyopathy Procedures: CT HEAD: There is no hemorrhage, mass effect, or evidence of acute territorial ischemia by CT criteria. CXR: 1. No acute cardiopulmonary disease. ECHO: * The left ventricle is normal in size. * There is normal left ventricular wall thickness. * There is severe hypokinesis of the base and mid level wall segments of the inferior inferoseptal celeste and basal posterior wall. * Apical wall motion abnormality may reflect pacemaker activation. * Ejection Fraction = 50-55%. * Grade I diastolic dysfunction, (abnormal relaxation pattern). * Aortic valve sclerosis mild, without significant aortic valvular stenosis. Medication Reconciliation Continued Medications: Amoxicillin & Pot Clavulanate (Augmentin 875-125 mg) 1 Tab Tab 875 MG PO BID for 10 Days, TAB Aspirin (Aspirin Ec) 81 Mg Tab 81 MG PO QAM Atorvastatin (Lipitor) 40 Mg Tab 40 MG PO QPM, TAB Clonidine Hcl (Catapres) 0.1 Mg Tab 0.1 MG PO BID, TAB Nitroglycerin (Nitrostat) 0.4 Mg Tab 0.4 MG UT PRN, BTL Oxycodone HCl (Oxycodone HCl) 5 Mg Tab 5 MG PO Q6 PRN for Pain Pantoprazole (Protonix) 40 Mg Tab 40 MG PO QAM, #30 TAB Discontinued Medications: Amlodipine (Norvasc) 2.5 Mg Tab 2.5 MG PO QAM, TAB Lisinopril (Prinivil) 20 Mg Tab 20 MG PO BID, TAB Metoprolol Succ (Toprol Xl) (Toprol-Xl ) 100 Mg Tabcr 100 MG PO QAM, TAB Admission Information HPI (per Admitting provider): 72 year old female with PMH LV mural thrombus, pacemaker, Dyslipidemia, Ischemic cardiomyopathy was brought to the Emergency Room with complaints of altered mental status. As per Epic document Pt was at the [facility] to see Dr. Giron for cellulitis of right eyelid for which she was given Augmentin. She was sent home. Pt was found by a bystander in the parking lot inside her car with the engine one. As per ER chart, She was found 2 hours later after her office appointment, sleeping in her car with the smell of exhaust. She said that her car has an exhaust leaks. She was assessed by the [facility] staff and she was found to be confused and weak. Pt said that she had been vomiting for the last 4 days. She said that last night she got lost because she was not able to find her way to go home. She said that she recently moved to a new house about 1 week ago and she is not very familiar with the area. She said that she could not see well because of the right eyelid cellulitis that caused her to have blurry vision. Pt lost her 3 months ago. She said that her urine has been very concentrated. Currently she said that she feels better. she said that she is having neck pain because she fell asleep in her car. She denies any chest pain, palpitation, dizziness and SOB. Physical Exam (per Admitting): General Appearance: WD/WN, no apparent distress Head: normocephalic, atraumatic Eyes: PERRL, EOMI, + pertinent finding (inferior right eyelid swelling) ENT: hearing grossly normal Neck: no JVD, trachea midline Respiratory/Chest: lungs clear, normal breath sounds, no respiratory distress, no accessory muscle use Cardiovascular: regular rate, rhythm, no JVD Abdomen/GI: normal bowel sounds, soft Back: no CVA tenderness Extremities/Musculoskelatal: no calf tenderness, no pedal edema Neurologic/Psych: cardiac cath lab radiology technologist II-XII nml as tested, no motor/sensory deficits, alert , normal mood/affect, oriented x 3 Skin: warm/dry, no rash Hospital Course Altered Mental Status Syncope CT head showed no acute intracranial abnormality Carboxyhemoglobin wnl Unable to get MRI head due to pacemaker possible dehydration as was having vomiting last few days and BP on lower side in ER IV fluids echo unremarkable stable wants to go home f/u with pcp closely Acute kidney injury Mostly related to hypovolemia, dehydration due to recent GI symptoms ( vomiting) Creatine on admission 1.64 holding Lisinopril on fluids resolved Viral Gastroenteritis n/v for last few days Tolerated regular diet today symptoms resolved Hypotension Related to Hypovolemia/ dehydration Holding BP med for now on iv fluids resolved HTN on clonidine, Metoprol. lisinopril and amlodipine all are held for hypotension on presentation restart clonidioe on discharge close followup with PCP on coming Monday for further adjustments Biventricular Pacemaker/ AICD says was checked recently Weakness Fall precaution PT/OT CAD/Ischemic Cardiomyopathy asymptomatic Continue Lipitor/Asa Metoprolol on hold due to low BP echo unremarkable. discharged home Total time spent on discharge = 35MINUTES This includes examination of the patient, discharge planning, medication reconciliation, and communication with other providers. Discharge Instructions Discharge Instructions Date of Service Apr 01, 2017. Admission Reason for Admission: Altered Mental Status Discharge Discharge Diagnosis / Problem: SYNCOPE Discharge Goals Goal(s): Decrease discomfort, Improve function Activity Recommendations Activity Limitations: resume your previous activity . Instructions / Follow-Up Instructions / Follow-Up FOLLOWUP WITH FAMILY DOCTOR Roman Howe III, M.D ON Mar AT 10:45AM STOPPING METOPROLOL, AMLODIPINE AND LISINOPRIL UNTIL SEEN BY FAMILY DOCTOR. TO CONTINUE CLONIDINE TO CHECK BLOOD PRESSURE DAILY AT HOME AND IF ELEVATED PRIOR TO SEEING FAMILY DOCTOR CAN RESTART METOPROLOL Current Hospital Diet Patient's current hospital diet: Regular Diet Discharge Diet Recommended Diet: AHA Diet (Heart Healthy) Pending Studies Studies pending at discharge: no Medical Emergencies . Who to Call and When: Medical Emergencies: If at any time you feel your situation is an emergency, please call 911 immediately. . Non-Emergent Contact Non-Emergency issues call your: Primary Care Provider . . "Provider Documentation" section prepared by Humberto Rosenberg. . VTE Core Measure Inpt VTE Proph given/why not?: Unfractionated heparin SQ
== END 2017-04-01 16:22 | disposition home or self-care (01) ==
LOC: EDBD 16:43 → C.EDC 16:44 → C.MED 20:34 → ENRESERV 21:08
PROVIDERS: ADMIT Internal Medicine; ATTEND Internal Medicine
DX: R41.82 Altered mental status, unspecified (principal); R55 Syncope and collapse; I23.6 Thrombosis of atrium, auricular appendage, and ventricle as current complications following acute myocardial infarction; Z95.0 Presence of cardiac pacemaker; E78.5 Hyperlipidemia, unspecified; I25.5 Ischemic cardiomyopathy; N17.9 Acute kidney failure, unspecified; A08.4 Viral intestinal infection, unspecified; I95.9 Hypotension, unspecified; I25.10 Atherosclerotic heart disease of native coronary artery without angina pectoris; F17.200 Nicotine dependence, unspecified, uncomplicated; Z79.82 Long term (current) use of aspirin; Z79.899 Other long term (current) drug therapy

== ENCOUNTER 2017-07-27 08:42 | Inpatient (IN) | payer OTHER ==
[~2017-07-27] VITALS: Ht 160 cm; Wt 70.8 kg
[~2017-07-27 08:42] MED LIST: AMOX875T PO; ASPI81TA28 PO; ATOR-24 PO; CTP/1 PO; NTRGSL/4 UT; OXYC-609 PO; PANT40TA PO
--- NOTE | 2017-07-27 08:54 | EMERGENCY ROOM VISIT NOTE ---
History Report prepared by Elida: Earl Aguero Under the Supervision of: Dr. Sixto Baker M.D. First contact with patient: 08:49 Chief Complaint: CHEST PAIN Stated Complaint: CHEST PAIN History of Present Illness The patient is a 72 year old female with hepatitis C who presents to the Emergency Room via EMS with complaints of persistent chest pressure that started upon waking this morning. She states that she has a defibrillator. The patient says that she felt like "she was suffocating", and she still feels the chest pressure. She adds that she is very anxious. She notes that there is no pain. The patient says that she was given Nitroglycerin in the ambulance, which took "some" of the pressure away. The patient notes that she then started to get a headache. She says that she does not use breathing treatments at home. She denies any abdominal pain. The patient quit smoking 10 years ago. The medic was ordered to give 1 mg Ativan but the medic did not give anything. Source of History: patient Onset: This morning Position: chest Symptom Intensity: no pain Quality: other (pressure) Timing: other (persistent) Modifying Factors (Relieving): other (Nitro somewhat) Associated Symptoms: + headache Note: Associated symptoms: Very anxious. Review of Systems See HPI for pertinent positives & negatives. A total of 10 systems reviewed and were otherwise negative. Past Medical & Surgical Medical Problems: (1) Altered mental status (2) H/O cardiac pacemaker (3) Hypoxia Family History No pertinent family history Social History Smoking Status: Current Every Day Smoker Marital Status: Housing Status: lives alone Occupation Status: retired Current/Historical Medications Scheduled Albuterol (Ventolin Hfa), 2 PUFF INH Q4 Amlodipine (Norvasc), 0.5 TAB PO DAILY Aspirin (Aspirin Ec), 81 MG PO QAM Clonidine Hcl (Catapres), 0.1 MG PO BID Lisinopril (Lisinopril), 20 MG PO BID Metoprolol Succ (Toprol Xl) (Toprol-Xl ), 100 MG PO DAILY Nitroglycerin (Nitrostat), 0.4 MG UT PRN Pantoprazole (Protonix), 40 MG PO QAM Scheduled PRN Oxycodone HCl (Oxycodone HCl), 5 MG PO Q6 PRN for Pain Allergies Coded Allergies: NSAIDs (Unverified Allergy, Severe, GI ISSUES, 07/27/17) Isosorbide Nitrate (Unverified Allergy, Unknown, VOMIT/HEADACHE, 07/27/17) Statins (Unverified Allergy, Unknown, LIVER FUNCTION ELEVATES, 07/27/17) Tramadol (Unverified Allergy, Unknown, VOMITING, 07/27/17) Physical Exam Vital Signs Date Time Temp Pulse Resp B/P (MAP) Pulse Ox O2 Delivery O2 Flow Rate FiO2 07/27/17 12:46 77 20 123/61 95 Room Air 07/27/17 12:04 70 16 135/95 95 Nasal Cannula 3.0 07/27/17 10:49 Nasal Cannula 3.0 07/27/17 10:30 69 16 129/71 98 Nasal Cannula 3.0 07/27/17 09:51 95 Nasal Cannula 3.0 07/27/17 09:44 69 17 165/78 88 Room Air 07/27/17 09:32 73 16 90 Room Air 07/27/17 09:06 75 07/27/17 08:55 95 Room Air 07/27/17 08:47 37.2 81 19 183/114 94 Room Air 07/27/17 08:47 96 Room Air Physical Exam GENERAL: Awake, alert, well-appearing, in no acute distress HENT: Normocephalic, atraumatic. Oropharynx unremarkable. EYES: Normal conjunctiva. Sclera non-icteric. NECK: Supple. No nuchal rigidity. FROM. No JVD. RESPIRATORY: Bilateral wheezes throughout. CARDIAC: Regular rate, normal rhythm. Extremities warm and well perfused. Pulses equal. ABDOMEN: Soft, non-distended. No tenderness to palpation. No rebound or guarding. No masses. RECTAL: Deferred. MUSCULOSKELETAL: Chest examination reveals no tenderness. The back is symmetrical on inspection without obvious abnormality. There is no CVA tenderness to palpation. No joint edema. LOWER EXTREMITIES: Calves are equal size bilaterally and non-tender. No edema. No discoloration. NEURO: Normal sensorium. No sensory or motor deficits noted. SKIN: No rash or jaundice noted. Medical Decision & Procedures ER Provider Diagnostic Interpretation: X-ray results as stated below per interpretation by me and the radiologist: CHEST ONE VIEW PORTABLE CLINICAL HISTORY: Atypical chest pain COMPARISON STUDY: 03/30/2017 FINDINGS: The heart is mildly enlarged. There is a left subclavian pacer/defibrillator present. There is no focal pulmonary consolidation. There is mild interstitial thickening.[ No pleural effusions are visualized. IMPRESSION: 1. No evidence of focal pulmonary consolidation 2. Mild interstitial thickening Electronically signed by: Ant Reynaga M.D. 07/27/2017 9:27 AM Dictated Date/Time: 07/27/2017 9:26 AM Laboratory Results 07/27/17 09:30 Red Blood Count 4.62, Mean Corpuscular Volume 94.2, Mean Corpuscular Hemoglobin 32.5, Mean Corpuscular Hemoglobin Concent 34.5, Mean Platelet Volume 10.5, Neutrophils (%) (Auto) 76.8, Lymphocytes (%) (Auto) 16.7, Monocytes (%) (Auto) 5.9, Eosinophils (%) (Auto) 0.4, Basophils (%) (Auto) 0.0, Neutrophils # (Auto) 4.19, Lymphocytes # (Auto) 0.91, Monocytes # (Auto) 0.32, Eosinophils # (Auto) 0.02, Basophils # (Auto) 0.00 07/27/17 09:30 Test 07/27/17 09:30 White Blood Count 5.45 K/uL (4.8-10.8) Red Blood Count 4.62 M/uL (4.2-5.4) Hemoglobin 15.0 g/dL (12.0-16.0) Hematocrit 43.5 % (37-47) Mean Corpuscular Volume 94.2 fL (80-100) Mean Corpuscular Hemoglobin 32.5 pg (25-34) Mean Corpuscular Hemoglobin Concent 34.5 g/dl (32-36) Platelet Count 172 K/uL (130-400) Mean Platelet Volume 10.5 fL (7.4-10.4) Neutrophils (%) (Auto) 76.8 % Lymphocytes (%) (Auto) 16.7 % Monocytes (%) (Auto) 5.9 % Eosinophils (%) (Auto) 0.4 % Basophils (%) (Auto) 0.0 % Neutrophils # (Auto) 4.19 K/uL (1.4-6.5) Lymphocytes # (Auto) 0.91 K/uL (1.2-3.4) Monocytes # (Auto) 0.32 K/uL (0.11-0.59) Eosinophils # (Auto) 0.02 K/uL (0-0.5) Basophils # (Auto) 0.00 K/uL (0-0.2) RDW Standard Deviation 46.3 fL (36.4-46.3) RDW Coefficient of Variation 13.6 % (11.5-14.5) Immature Granulocyte % (Auto) 0.2 % Immature Granulocyte # (Auto) 0.01 K/uL (0.00-0.02) Anion Gap 6.0 mmol/L (3-11) Est Creatinine Clear Calc Drug Dose 75.0 ml/min Estimated GFR () 103.2 Estimated GFR (Non- 89.1 BUN/Creatinine Ratio 20.7 (10-20) Calcium Level 8.3 mg/dl (8.5-10.1) Magnesium Level 2.0 mg/dl (1.8-2.4) Total Bilirubin 0.3 mg/dl (0.2-1) Direct Bilirubin < 0.1 mg/dl (0-0.2) Aspartate Amino Transf (AST/SGOT) 33 U/L (15-37) Alanine Aminotransferase (ALT/SGPT) 38 U/L (12-78) Alkaline Phosphatase 74 U/L (45-117) Total Creatine Kinase 85 U/L (26-192) Creatine Kinase MB 2.2 ng/ml (0.5-3.6) Creatine Kinase MB Ratio 2.6 (0-3.0) Troponin I < 0.015 ng/ml (0-0.045) Total Protein 7.2 gm/dl (6.4-8.2) Albumin 3.2 gm/dl (3.4-5.0) Lipase 114 U/L (73-393) Influenza Type A Antigen Neg for Influ A (NEG) Influenza Type B Antigen Neg for Influ B (NEG) Labs reviewed by ED physician. Medications Administered Medications (Trade) Dose Ordered Sig/Daniel Route Start Time Stop Time Status Last Admin Dose Admin Lorazepam (Ativan Inj) 1 mg NOW STAT IV 07/27/17 08:55 07/27/17 08:59 DC 07/27/17 09:13 1 MG Metoclopramide HCl (Reglan Inj) 10 mg NOW STAT IV 07/27/17 08:55 3/8/18 08:59 DC 07/27/17 09:13 10 MG Nitroglycerin (Nitroglycerin 2% Oint) 1 inch NOW STAT EXT 07/27/17 08:55 07/27/17 08:59 DC 07/27/17 09:13 1 INCH Levalbuterol (Xopenex 1.25MG/ 3ML Neb) 1.25 mg NOW STAT INH 07/27/17 08:55 07/27/17 08:59 DC 07/27/17 08:55 1.25 MG Methylprednisolone Sodium Succinate (Solu-Medrol IV) 60 mg NOW STAT IV 07/27/17 10:12 07/27/17 10:13 DC 07/27/17 10:29 60 MG ECG Per My Interpretation Indication: chest pain Rate (beats per minute): 78 Rhythm: other (paced rhythm) Findings: other (no st elevation or depression) ED Course 0850: Past medical records reviewed. The patient was evaluated in room B9. A complete history and physical examination was performed. 0855: Xopenex 1.25MG/3ML Neb 1.25 mg INH, Nitroglycerin 2% Oint 1 inch EXT, Reglan Inj 10 mg IV, Ativan Inj 1 mg IV. 1012: Solu-Medrol IV 60 mg. 1025: Upon reexamination the patient is resting. I discussed results and treatment plan with the patient. She verbalizes agreement and understanding. The patient will be evaluated for further management. 1027: I discussed the patient's case with YOGESH Smith - she has agreed to evaluate the patient for further management and care. Medical Decision Differential diagnosis: Etiologies such as cardiac ischemia, aortic dissection, pulmonary embolism, pneumonia, pneumothorax, musculoskeletal, infections, pericarditis, myocarditis , esophageal rupture, gastrointestinal, as well as others were entertained. This is a 72-year-old female who presents the emergency department angry and belligerent. She arrives cursing at the Dr. the patient is upset that she did not receive Ativan in the ambulance. I explained to the patient that I did order Ativan for the ambulance however the medical did not give it. I also offered for the patient to see another physician coming on at 9:30 in the morning. The patient declined this however is demanding Ativan. She is wheezing in all lung gutierrez. She was given Xopenex breathing treatment here in the emergency department as well as Ativan. Chest x-ray does not show any evidence of pneumonia. She is flu negative. She is requiring oxygen here in the emergency department therefore I felt that the patient should be admitted. Patient was in agreement with treatment plan. Medication Reconcilliation Current Medication List: was personally reviewed by me Blood Pressure Screening Patient's blood pressure: Elevated blood pressure Referred to hospitalist. Consults Time Called: 1025 Consulting Physician: YOGESH Smith Returned Call: 1022 I discussed the patient's case with YOGESH Smith - she has agreed to evaluate the patient for further management and care. Impression Primary Impression: Precordial chest pain Scribe Attestation The scribe's documentation has been prepared under my direction and personally reviewed by me in its entirety. I confirm that the note above accurately reflects all work, treatment, procedures, and medical decision making performed by me. Departure Information Dispostion Being Evaluated By Hospitalist Referrals Roman Ennis III, M.D. (PCP) Patient Instructions My [facility]
[2017-07-27] MEDS ORDERED: METOCLOPRAMIDE HCL INJ 5 MG/ML 2 ML VIAL IV STA (08:55)
[2017-07-27] MEDS ORDERED: LEVALBUTEROL 1.25MG/3ML NEB INH STA (08:55)
[2017-07-27] MEDS ORDERED: LORAZEPAM 2 MG/ML 1 ML VIAL IV STA (08:55)
[2017-07-27] MEDS ORDERED: NITROGLYCERIN 2% OINTMENT 30GM TUBE EXT STA (08:55)
[2017-07-27] MEDS ORDERED: LSN20 PO (08:58)
[2017-07-27] MEDS ORDERED: METO100T44 PO (08:58)
[2017-07-27] MEDS ORDERED: AMLO2.5T PO (08:58)
--- NOTE | 2017-07-27 09:29 | DIAGNOSTIC IMAGING REPORT ---
CHEST ONE VIEW PORTABLE CLINICAL HISTORY: Atypical chest pain COMPARISON STUDY: 03/30/2017 FINDINGS: The heart is mildly enlarged. There is a left subclavian pacer/defibrillator present. There is no focal pulmonary consolidation. There is mild interstitial thickening.[ No pleural effusions are visualized. IMPRESSION: 1. No evidence of focal pulmonary consolidation 2. Mild interstitial thickening Electronically signed by: Ant Reynaga M.D. 07/27/2017 9:27 AM Dictated Date/Time: 07/27/2017 9:26 AM
[2017-07-27 09:32] VITALS: PULSE 73; O2SAT 90
[2017-07-27 10:02] LABS: ALBUMIN 3.2 gm/dl (3.4-5.0); ALT/SGPT 38 U/L (12-78); AST/SGOT 33 U/L (15-37); BLOOD UREA NITROGEN 14 mg/dl (7-18); CALCIUM 8.3 mg/dl (8.5-10.1); CARBON DIOXIDE 26 mmol/L (21-32); CREATININE 0.67 mg/dl (0.60-1.20); GLUCOSE 123 mg/dl (70-99); LIPASE 114 U/L (73-393); POTASSIUM 4.1 mmol/L (3.5-5.1); SODIUM 135 mmol/L (136-145)
[2017-07-27 10:08] LABS: ALKALINE PHOSPHATASE 74 U/L (45-117); CKMB 2.2 ng/ml (0.5-3.6); TOTAL PROTEIN 7.2 gm/dl (6.4-8.2)
[2017-07-27] MEDS ORDERED: METHYLPREDNISOLONE 125 MG VIAL IV STA (10:12)
[2017-07-27 10:13] LABS: INFLUENZA B ANTIGEN Neg for Influ B (NEG)
[2017-07-27 10:20] LABS: EOS % 0.4 %; EOS ABS # 0.02 K/uL (0-0.5); HEMATOCRIT 43.5 % (37-47); IG# 0.01 K/uL (0.00-0.02); LYMPH % 16.7 %; LYMPH ABS # 0.91 K/uL (1.2-3.4); MEAN CELL VOLUME 94.2 fL (80-100); MEAN CORPUSCULAR HEMOGLOBIN 32.5 pg (25-34); MEAN CORPUSCULAR HGB CONC 34.5 g/dl (32-36); MEAN PLATELET VOLUME 10.5 fL (7.4-10.4); MONO % 5.9 %; MONO ABS # 0.32 K/uL (0.11-0.59); NEUT % 76.8 %; NEUT ABS # 4.19 K/uL (1.4-6.5); PLATELET COUNT 172 K/uL (130-400); RED CELL DISTRIBUTION WIDTH CV 13.6 % (11.5-14.5); RED CELL DISTRIBUTION WIDTH SD 46.3 fL (36.4-46.3); WHITE BLOOD COUNT 5.45 K/uL (4.8-10.8)
[2017-07-27 10:49] VITALS: Ht 160 cm; Wt 70.8 kg
[2017-07-27] MEDS ORDERED: NITROGLYCERIN 0.4 MG SL PER TAB CHARGE SL PRN (11:45)
[2017-07-27] MEDS ORDERED: OPTIRAY 320 IV PRN (11:45)
[2017-07-27] MEDS ORDERED: ACETAMINOPHEN 325 MG TAB PO PRN (11:45)
[2017-07-27] MEDS ORDERED: PRVHFAIN INH (11:57)
[2017-07-27] MEDS ORDERED: AMLO-110 PO (11:57)
[2017-07-27] MEDS ORDERED: METOCLOPRAMIDE HCL INJ 5 MG/ML 2 ML VIAL IV. PRN (12:15)
[2017-07-27] MEDS ORDERED: LORAZEPAM 1 MG TAB PO PRN (12:30)
--- NOTE | 2017-07-27 12:52 | DIAGNOSTIC IMAGING REPORT ---
(CHEST FOR PE) ANGIO WITH CT DOSE: 320.10 mGy.cm HISTORY: Chest pain dyspnea TECHNIQUE: Multiaxial CT images of the chest were performed following the intravenous administration of contrast to evaluate the pulmonary arteries. Maximal intensity projection images were also obtained. A dose lowering technique was utilized adhering to the principles of ALARA. COMPARISON STUDY: None. FINDINGS: Moderate atherosclerotic change thoracic aorta. No evidence for aneurysm or dissection. Pulmonary vasculature enhances appropriately. Degenerative changes thoracic spine. Poorly defined bibasilar infiltrative/atelectatic change. Mid and upper lungs are considered clear. IMPRESSION: 1. Study is negative for pulmonary embolus. 2. Mild bibasilar infiltrative change The above report was generated using voice recognition software. It may contain grammatical, syntax or spelling errors. Electronically signed by: Joshua Shoemaker M.D. 07/27/2017 12:50 PM Dictated Date/Time: 07/27/2017 12:47 PM
[2017-07-27] MEDS ORDERED: IV FLUIDS COMPLETED PRN (13:45)
[2017-07-27 14:32] VITALS: BP 105/70; PULSE 85; TEMP 36.9; O2SAT 90
--- NOTE | 2017-07-27 14:46 | ECHOCARDIOGRAM REPORT ---
*NOTICE TO RECEIVING REPUBLICAN AGENCY This information is strictly Confidential and protected under [place] law. [place] law prohibits you from making any further disclosure of this information unless further disclosure is expressly permitted by the written consent of the person to whom it pertains or is authorized by law. A general authorization for the release of medical or other information is not sufficient for this purpose. Hospital accepts no responsibility if the information is made available to any other person, INCLUDING THE PATIENT. Interpretation Summary * Name: JEAN-CLAUDE MIRELES Study Date: 07/27/2017 01:23 PM BP: 123/61 mmHg * Patient Location: C.EDB\S\N286\S\2 HR: 77 * : 1945 (M/d/yyyy) Gender: Female Height: 62 in * Age: 72 yrs Ethnicity: CA Weight: 162 lb * Ordering Physician: Markos Matson * Referring Physician: Self, Referred * Performed By: Danita Santiago RDCS * * Reason For Study: Chest Pain * BSA: 1.7 m2 * -- Conclusions -- * The left ventricle is normal in size. * Left ventricular systolic function is normal. * Ejection Fraction = 60-65%. * The left ventricular wall motion is normal. * The right ventricular systolic function is normal. * No significant valvular pathology. * When compared to the previous study March 2017 the wall motion abnormalities described are no longer present. Procedure Details * A complete two-dimensional transthoracic echocardiogram was performed (2D, M-mode, Doppler and color flow Doppler). Left Ventricle * The left ventricle is normal in size. * There is normal left ventricular wall thickness. * Ejection Fraction = 60-65%. * Left ventricular systolic function is normal. * The left ventricular wall motion is normal. Right Ventricle * The right ventricle is normal size. * There is a pacemaker lead in the right ventricle. * The right ventricular systolic function is normal. Atria * The left atrial size is normal. * Right atrial size is normal. * The interatrial septum is intact with no evidence for an atrial septal defect. Mitral Valve * The mitral valve anatomy is normal. * Significant mitral regurgitation is absent. Tricuspid Valve * The tricuspid valve anatomy is normal. * Significant tricuspid regurgitation is absent. Aortic Valve * The aortic valve is tricuspid. The leaflet thickness if normal. There is no aortic stenosis, and no significant insufficiency. * The aortic valve opens well. * There is no significant aortic regurgitation. Pulmonic Valve * The pulmonic valve is not well visualized. * There is no significant pulmonary regurgitation. Great Vessels * The aortic root and proximal ascending aorta are normal sized. Pericardium/Pleural * There is no pericardial effusion. MMode 2D Measurements and Calculations IVSd 1.2 cm IVSs 1.4 cm LVIDd 4.0 cm LVIDs 2.6 cm LVPWd 1.2 cm LVPWs 1.8 cm IVS/LVPW 1.1 FS 35.3 % EDV(Teich) 72.1 ml ESV(Teich) 25.1 ml EF(Teich) 65.2 % EDV(cubed) 66.4 ml ESV(cubed) 18.0 ml EF(cubed) 72.9 % % IVS thick 11.6 % % LVPW thick 49.8 % LV mass(C)d 172.3 grams LV mass(C)dI 98.6 grams/m\S\2 LV mass(C)s 147.2 grams LV mass(C)sI 84.2 grams/m\S\2 SV(Teich) 47.0 ml SI(Teich) 26.9 ml/m\S\2 SV(cubed) 48.4 ml SI(cubed) 27.7 ml/m\S\2 Ao root diam 2.9 cm Ao root area 6.5 cm\S\2 LA dimension 3.2 cm LA/Ao 1.1 LVAd ap4 23.6 cm\S\2 LVLd ap4 7.9 cm EDV(MOD-sp4) 58.1 ml EDV(sp4-el) 59.6 ml LVAs ap4 12.6 cm\S\2 LVLs ap4 6.4 cm ESV(MOD-sp4) 23.4 ml ESV(sp4-el) 21.3 ml EF(MOD-sp4) 59.6 % EF(sp4-el) 64.3 % LVAd ap2 23.9 cm\S\2 LVLd ap2 7.8 cm EDV(MOD-sp2) 66.3 ml EDV(sp2-el) 62.1 ml LVAs ap2 13.7 cm\S\2 LVLs ap2 7.1 cm ESV(MOD-sp2) 26.3 ml ESV(sp2-el) 22.5 ml EF(MOD-sp2) 60.3 % EF(sp2-el) 63.8 % LVLd %diff -1.26 % EDV(MOD-bp) 61.8 ml LVLs %diff 9.6 % ESV(MOD-bp) 26.0 ml EF(MOD-bp) 57.9 % SV(MOD-sp4) 34.6 ml SI(MOD-sp4) 19.8 ml/m\S\2 SV(MOD-sp2) 40.0 ml SI(MOD-sp2) 22.9 ml/m\S\2 SV(MOD-bp) 35.8 ml SI(MOD-bp) 20.5 ml/m\S\2 SV(sp4-el) 38.3 ml SI(sp4-el) 21.9 ml/m\S\2 SV(sp2-el) 39.6 ml SI(sp2-el) 22.7 ml/m\S\2 Doppler Measurements and Calculations MV E max josemanuel 44.8 cm/sec MV A max josemanuel 93.3 cm/sec MV E/A 0.48 MV dec time 0.29 sec Ao V2 max 148.9 cm/sec Ao max PG 8.9 mmHg Ao max PG (full) 4.0 mmHg LV V1 max PG 4.9 mmHg LV V1 max 110.5 cm/sec PA V2 max 104.7 cm/sec PA max PG 4.4 mmHg TR max josemanuel 256.1 cm/sec
[2017-07-27] MEDS ORDERED: LEVALBUTEROL/IPRATROPIUM NEB INH SCH (15:00)
--- NOTE | 2017-07-27 15:43 | History and Physical ---
History & Physical Date & Time of Service: Jul 27, 2017 at 12:09 Chief Complaint: Chest Pain Primary Care Physician: Roman Ennis III, M.D. History of Present Illness Source: patient, clinic records, hospital records Pt is 72 y/o F with PMH CAD, ME in 2006, s/p PCI/Stent RCA, ischemic cardiomyopathy, biventricular ICD, HTN, HLD, migraine RODRIGUEZ, OA, GERD presented to ER with c/o chest pressure and SOB. Patient states was awakened from sleep this morning with anterior chest pressure and shortness of breath. She reports that she believes she was dreaming she was being suffocated and woke up to this chest pressure and shortness of breath. Patient states symptoms were making her feel very anxious. She reports with history of previous ME had chest pressure and she was concerned today. EMS was called and patient received aspirin and 1 spray of nitroglycerin in route. Patient reports improvement of the shortness of breath and chest pressure. Upon arrival to ER patient was given Ativan, Nitropaste. She was also given neb treatment and Solu-Medrol 60 mg IV. Patient denies any further chest pain or pressure or shortness of breath.Patient reports a possible history of COPD. Does not believe she has ever had PFTs. Does have albuterol inhaler to use as needed. Patient reports lost her inhaler approximately 6 months ago. Not on home oxygen. Patient reports that has had cough and nasal congestion 2 weeks. Cough is productive of yellow/green sputum. She has felt like she has had some wheezing with this. No prior treatment or OTC meds. Patient reports has been eating and drinking well. Patient does discuss that had a loss of her back in December 2016 and since she has been feeling sad and lonely. Patient denies any suicidal ideations and does not feel that she has been anxious until today. Denies fever/ chills, diaphoresis, N/V/D/C, RODRIGUEZ, dizziness, syncope, vision changes, neck pain , hemoptysis, orthopnea, palpitations, sore throat, choking, otalgia, abdominal pain, paresthesias, weakness, extremity edema, rashes, urinary symptoms. Past Medical/Surgical History Medical Problems: (1) Altered mental status Status: Resolved (2) CAD (coronary artery disease) Permanent Comment: ME 2006. S/P PCI/Stent RCA Status: Chronic (3) GERD (gastroesophageal reflux disease) Status: Chronic (4) HTN (hypertension) Status: Chronic (5) Hyperlipidemia Status: Chronic (6) Ischemic cardiomyopathy Status: Chronic (7) Migraine Status: Chronic (8) OA (osteoarthritis) Status: Chronic Surgical Problems: (1) Biventricular ICD (implantable cardioverter-defibrillator) in place Status: Resolved (2) Hx of cardiac catheterization Permanent Comment: 2007 - RCA bare metal stent Status: Resolved (3) Hx of cataract removal with insertion of prosthetic lens Status: Resolved (4) Hx of cholecystectomy Status: Resolved Family History FH: CAD (coronary artery disease) FH: prostate cancer FH: thyroid disease Social History Smoking Status: Former Smoker (quit 2006, smoked 1ppd x 20 years) Smokeless Tobacco Use: No Alcohol Use: none Drug Use: none Marital Status: Housing status: lives with family Occupational Status: retired Allergies Coded Allergies: NSAIDs (Unverified Allergy, Severe, GI ISSUES, 07/27/17) Isosorbide Nitrate (Unverified Allergy, Unknown, VOMIT/HEADACHE, 07/27/17) Statins (Unverified Allergy, Unknown, LIVER FUNCTION ELEVATES, 07/27/17) Tramadol (Unverified Allergy, Unknown, VOMITING, 07/27/17) Home Medications Scheduled Albuterol (Ventolin Hfa), 2 PUFF INH Q4 Amlodipine (Norvasc), 0.5 TAB PO DAILY Aspirin (Aspirin Ec), 81 MG PO QAM Clonidine Hcl (Catapres), 0.1 MG PO BID Lisinopril (Lisinopril), 20 MG PO BID Metoprolol Succ (Toprol Xl) (Toprol-Xl ), 100 MG PO DAILY Nitroglycerin (Nitrostat), 0.4 MG UT PRN Pantoprazole (Protonix), 40 MG PO QAM Scheduled PRN Oxycodone HCl (Oxycodone HCl), 5 MG PO Q6 PRN for Pain Review of Systems See HPI for pertinent positives & negatives. All other systems reviewed and were otherwise negative Physical Exam Vital Signs Date Time Temp Pulse Resp B/P (MAP) Pulse Ox O2 Delivery O2 Flow Rate FiO2 07/27/17 10:49 Nasal Cannula 3.0 07/27/17 10:30 69 16 129/71 98 Nasal Cannula 3.0 07/27/17 09:51 95 Nasal Cannula 3.0 07/27/17 09:44 69 17 165/78 88 Room Air 07/27/17 09:32 73 16 90 Room Air 07/27/17 09:06 75 07/27/17 08:55 95 Room Air 07/27/17 08:47 37.2 81 19 183/114 94 Room Air 07/27/17 08:47 96 Room Air General Appearance: WD/WN, no apparent distress Head: normocephalic, atraumatic Eyes: normal inspection, PERRL, EOMI, sclerae normal ENT: hearing grossly normal, pharynx normal, + pertinent finding (mucous membranes moist) Neck: supple, no JVD, trachea midline Respiratory/Chest: no respiratory distress, no accessory muscle use, + decreased breath sounds (diminished breath sounds throughout, no active wheezing at this time (pt received neb tx), no rales or rhonchi) Cardiovascular: regular rate, rhythm, no edema, normal peripheral pulses Abdomen/GI: normal bowel sounds, non tender, soft Extremities/Musculoskelatal: normal inspection, no calf tenderness, no pedal edema, normal range of motion Neurologic/Psych: alert, oriented x 3, + pertinent finding (pt does become tearful when talks about the passing of her , otherwise at this time does not appear anxious.) Skin: normal color, warm/dry Diagnostics Laboratory Results Results Past 24 Hours Test 07/27/17 09:30 Range/Units White Blood Count 5.45 4.8-10.8 K/uL Red Blood Count 4.62 4.2-5.4 M/uL Hemoglobin 15.0 12.0-16.0 g/dL Hematocrit 43.5 37-47 % Mean Corpuscular Volume 94.2 80-100 fL Mean Corpuscular Hemoglobin 32.5 25-34 pg Mean Corpuscular Hemoglobin Concent 34.5 32-36 g/dl Platelet Count 172 130-400 K/uL Mean Platelet Volume 10.5 7.4-10.4 fL Neutrophils (%) (Auto) 76.8 % Lymphocytes (%) (Auto) 16.7 % Monocytes (%) (Auto) 5.9 % Eosinophils (%) (Auto) 0.4 % Basophils (%) (Auto) 0.0 % Neutrophils # (Auto) 4.19 1.4-6.5 K/uL Lymphocytes # (Auto) 0.91 1.2-3.4 K/uL Monocytes # (Auto) 0.32 0.11-0.59 K/uL Eosinophils # (Auto) 0.02 0-0.5 K/uL Basophils # (Auto) 0.00 0-0.2 K/uL RDW Standard Deviation 46.3 36.4-46.3 fL RDW Coefficient of Variation 13.6 11.5-14.5 % Immature Granulocyte % (Auto) 0.2 % Immature Granulocyte # (Auto) 0.01 0.00-0.02 K/uL Sodium Level 135 136-145 mmol/L Potassium Level 4.1 3.5-5.1 mmol/L Chloride Level 103 98-107 mmol/L Carbon Dioxide Level 26 21-32 mmol/L Anion Gap 6.0 3-11 mmol/L Blood Urea Nitrogen 14 7-18 mg/dl Creatinine 0.67 0.60-1.20 mg/dl Est Creatinine Clear Calc Drug Dose 75.0 ml/min Estimated GFR () 103.2 Estimated GFR (Non- 89.1 BUN/Creatinine Ratio 20.7 10-20 Random Glucose 123 70-99 mg/dl Calcium Level 8.3 8.5-10.1 mg/dl Total Bilirubin 0.3 0.2-1 mg/dl Direct Bilirubin < 0.1 0-0.2 mg/dl Aspartate Amino Transf (AST/SGOT) 33 15-37 U/L Alanine Aminotransferase (ALT/SGPT) 38 12-78 U/L Alkaline Phosphatase 74 45-117 U/L Total Creatine Kinase 85 26-192 U/L Creatine Kinase MB 2.2 0.5-3.6 ng/ml Creatine Kinase MB Ratio 2.6 0-3.0 Troponin I < 0.015 0-0.045 ng/ml Total Protein 7.2 6.4-8.2 gm/dl Albumin 3.2 3.4-5.0 gm/dl Lipase 114 73-393 U/L Influenza Type A Antigen Neg for Influ A NEG Influenza Type B Antigen Neg for Influ B NEG Diagnostic Radiology CXR: IMPRESSION: 1. No evidence of focal pulmonary consolidation 2. Mild interstitial thickening CT CHEST: IMPRESSION: 1. Study is negative for pulmonary embolus. 2. Mild bibasilar infiltrative change EKG EKG: paced rhythm, rate 78 Impression Assessment and Plan CHEST PRESSURE/SOB Pt woke up with chest pressure and SOB. Pt given ASA and 1 spray nitro by EMS with relief CP. In ER had nitro paste placed and was given Ativan 1mg. No further CP or SOB. Negative CT chest for PE. R/O ACS Risk factors: HTN, hyperlipidemia, hx CAD. DDX: anxiety, bronchitis. -Monitor Vitals -Repeat EKG in am -Will trend troponin -ECHO -Cardiology consult -lipid panel, pt intolerant to statins -continue ASA & continue beta ann-marie -Nitro prn CP and repeat EKG for CP -ativan prn anxiety -pacer interrogation BRONCHITIS Pt with cough x 2 weeks with wheezing. No Infiltrate noted on CXR. Given neb and solumedrol 60mg in ER. No wheezing noted after neb tx. -xopenex/atrovent nebs HTN Initially BP: 183/114 down to 129/71 -continue amlodipine, lisinopril, clonidine OA -continue oxycodone prn pain GERD -continue PPI DVT Prophylaxis -heparin SQ Disposition admit tele DNR/DNI as per discussion with pt Follows with Dr Ennis for routine care Pt was seen with Dr Matson. See addendum Attending Physician Dr. Matson Addendum I have seen and examined the patient with SAVITA Evans and agree with the assessment and plan as above and would like to comment that since ED presentation and examine by hospitalist, the patient has been asymptomatic and blood pressure as improved significantly since initial ED vital sign. Troponins now negative x 2. Third troponin to be done. Further risk stratification for acute coronary artery disease given history of myocardial infarction years ago was discussed with cardiology and patient to be scheduled for nuclear stress test starting tomorrow. Patient agrees to the plan that she will be staying overnight for these tests to be performed as inpatient Advanced Directives Existing Living Will: Yes Existing Power of Training Mgr: Yes Resuscitation Status DNR/DNI VTE Prophylaxis Will order VTE Prophylaxis: Yes Additional Copies To Roman Ennis III, M.D.
[2017-07-27] MEDS: OXYCODONE HCL IR 5 MG TAB (IMMEDIATE RELEASE) PO PRN ×2 (16:09→22:15)
[2017-07-27] MEDS: NITROGLYCERIN 2% OINTMENT 30GM TUBE EXT SCH ×2 (16:10→21:03)
[2017-07-27 19:28] VITALS: PULSE 109; O2SAT 93
[2017-07-27] MEDS: IPRATROPIUM BROMIDE NEB SOLN 0.02% 2.5 ML VIAL INH SCH (19:28)
[2017-07-27] MEDS: LEVALBUTEROL 1.25MG/0.5ML NEB INH SCH (19:29)
[2017-07-27 19:49] VITALS: BP 113/76; PULSE 98; TEMP 37; O2SAT 92
[2017-07-27] MEDS: HEPARIN SOD 5000 UNIT/0.5 ML CARP SQ SCH (21:02)
[2017-07-27] MEDS: LISINOPRIL 20 MG TAB PO SCH (21:04)
[2017-07-27] MEDS: CLONIDINE HCL 0.1 MG TAB PO SCH (21:04)
[2017-07-27 23:10] VITALS: BP 115/74; PULSE 89; TEMP 36.8; O2SAT 92
[2017-07-28] VITALS (9 sets, daily range): BP systolic 125–149; BP diastolic 75–83; PULSE 75–98; TEMP 36.6–36.8; O2SAT 85–98
[2017-07-28] MEDS: IPRATROPIUM BROMIDE NEB SOLN 0.02% 2.5 ML VIAL INH SCH ×4 (01:50→19:27)
[2017-07-28] MEDS: LEVALBUTEROL 1.25MG/0.5ML NEB INH SCH ×4 (01:50→19:27)
[2017-07-28] MEDS: NITROGLYCERIN 2% OINTMENT 30GM TUBE EXT SCH (03:10)
[2017-07-28] MEDS: OXYCODONE HCL IR 5 MG TAB (IMMEDIATE RELEASE) PO PRN ×3 (04:04→16:05)
[2017-07-28] MEDS: HEPARIN SOD 5000 UNIT/0.5 ML CARP SQ SCH ×2 (06:00→14:00)
[2017-07-28 06:12] LABS: HEMATOCRIT 42.1 % (37-47); HEMOGLOBIN 14.2 g/dL (12.0-16.0); MEAN CELL VOLUME 94.6 fL (80-100); MEAN CORPUSCULAR HEMOGLOBIN 31.9 pg (25-34); MEAN CORPUSCULAR HGB CONC 33.7 g/dl (32-36); MEAN PLATELET VOLUME 10.7 fL (7.4-10.4); PLATELET COUNT 189 K/uL (130-400); RED CELL DISTRIBUTION WIDTH CV 13.7 % (11.5-14.5); RED CELL DISTRIBUTION WIDTH SD 47.4 fL (36.4-46.3); WHITE BLOOD COUNT 11.28 K/uL (4.8-10.8)
[2017-07-28 06:43] LABS: CALCIUM 8.6 mg/dl (8.5-10.1); CREATININE 0.79 mg/dl (0.60-1.20); POTASSIUM 4.5 mmol/L (3.5-5.1)
[2017-07-28] MEDS: CLONIDINE HCL 0.1 MG TAB PO SCH (08:30)
[2017-07-28] MEDS: LISINOPRIL 20 MG TAB PO SCH (08:31)
[2017-07-28] MEDS ORDERED: METOPROLOL SUCC 50MG EXT REL TAB PO SCH (09:00)
[2017-07-28] MEDS ORDERED: AMLODIPINE BESYLATE 5 MG TAB PO SCH (09:00)
[2017-07-28] MEDS ORDERED: PANTOprazole SOD 40 MG TAB PO SCH (09:00)
[2017-07-28] MEDS ORDERED: DOXYCYCLINE IV 100 MG in DEXTROSE 5% 100ML 100 ML IV SCH (09:00)
[2017-07-28] MEDS ORDERED: ASPIRIN 81 MG ECTAB PO SCH (09:00)
--- NOTE | 2017-07-28 09:48 | Clinical Documentation Query ---
CLINICAL DOCUMENTATION QUERY 72 yo female admitted with chest pressure and SOB/bronchitis. Patient states she may have a history of COPD, former 20 year pack smoker, and uses an albuterol inhaler at home. In your clinical opinion is this patient being managed for: ( ) Acute bronchitis with COPD ( ) Not Agree ( x ) Other explanation of clinical findings (Please Explain) ( ) Unable to determine (Please Define) ( ) Need to Discuss Patient primarily being managed to rule out acute coronary syndrome Patient does not appear to have pneumonia Not appear to be in COPD exacerbation Possible bronchitis given chronic cough The medical record reflects the following clinical findings, treatment, and risk factors. Clinical Indicators: As above Treatment: O2, CXR, Atrovent/Albuterol neb txs Risk Factors: Age, former smoker Please clarify and document your clinical opinion in the progress notes and discharge summary. Terms such as "probable", "suspected", "likely", "questionable", "possible", or "still to be ruled out" are acceptable. IF IN AGREEMENT, YOU MUST DOCUMENT ABOVE DIAGNOSTIC STATEMENT IN DAILY PROGRESS NOTES AND DISCHARGE SUMMARY. This document is not part of the patient's record. Thank You, Barbi Thomas RN [phone]
[2017-07-28] MEDS ORDERED: REGADENOSON 0.4 MG/5 ML SYR ONE (10:45)
[2017-07-28] MEDS ORDERED: NURSING VERBAL MED ORDER ONE (12:15)
[2017-07-28] MEDS ORDERED: BENZONATATE 100MG CAP PO ONE (16:30)
[2017-07-28] MEDS ORDERED: DXY100 OR (18:06)
[2017-07-28] MEDS ORDERED: BENZ100C7 PO (18:09)
--- NOTE | 2017-07-28 18:11 | Progress Note ---
Internal Med Progress Note Date of Service: Jul 28, 2017. Provider Documentation: SUBJECTIVE: Patient s/p nuclear stress test. Having coughs similar to yesterday OBJECTIVE: General- no distress, coughing, breathing on room air Eyes- EOMI Neck- no JVD Lungs- coughs, but no wheezing and lung exam is clear Heart- regular rate Abdomen- soft, nontender, + bowel sounds Extremities- no edema Neuro- awake, alert, no focal deficits ASSESSMENT & PLAN: Pt is 72 y/o F with PMH CAD, [place] in 2006, s/p PCI/Stent RCA, ischemic cardiomyopathy, biventricular ICD, HTN, HLD, migraine RODRIGUEZ, OA, GERD presented to ER for chest pressure and SOB and found to have blood pressure 183/114 Hypertension resolved in the ED, possible component of anxiety induced elevation in blood pressure Patient admitted for rule out acute coronary syndrome. has negative troponins and negative cardiac imaging studies Patient also reports of chronic cough CXR: 1. No evidence of focal pulmonary consolidation. 2. Mild interstitial thickening CTA: 1. Study is negative for pulmonary embolus. 2. Mild bibasilar infiltrative change Echocardiogram The left ventricle is normal in size. Left ventricular systolic function is normal. Ejection Fraction = 60-65%. The left ventricular wall motion is normal. The right ventricular systolic function is normal. No significant valvular pathology. When compared to the previous study March 2017 the wall motion abnormalities described are no longer present. Procedure Details A complete two-dimensional transthoracic echocardiogram was performed (2D, M- mode, Doppler and color flow Doppler). Left Ventricle The left ventricle is normal in size. There is normal left ventricular wall thickness. Ejection Fraction = 60-65%. Left ventricular systolic function is normal. The left ventricular wall motion is normal. Right Ventricle The right ventricle is normal size. There is a pacemaker lead in the right ventricle. The right ventricular systolic function is normal. Atria The left atrial size is normal. Right atrial size is normal. The interatrial septum is intact with no evidence for an atrial septal defect. Mitral Valve The mitral valve anatomy is normal. Significant mitral regurgitation is absent. Tricuspid Valve The tricuspid valve anatomy is normal. Significant tricuspid regurgitation is absent. Aortic Valve The aortic valve is tricuspid. The leaflet thickness if normal. There is no aortic stenosis, and no significant insufficiency. The aortic valve opens well. There is no significant aortic regurgitation. Pulmonic Valve The pulmonic valve is not well visualized. There is no significant pulmonary regurgitation. Great Vessels The aortic root and proximal ascending aorta are normal sized. Pericardium/Pleural There is no pericardial effusion. Patient had nuclear stress test - full report pending but preliminary read is nonischemic Patient also having chronic cough without evidence of pneumonia and likely has bronchitis Discharge diagnosis Noncardiac chest pain Hypertension bronchitis Discharge to home; continue home medications, new prescriptions for doxycycline and Tessalon Perles Upcoming appointments 08/01/2017 11:00 AM Pacer Clinic [facility] Cardiology [facility] 08/02/2017 11:00 AM Roman Ennis III, MD [facility] 08/03/2017 8:00 AM Tech Ultrasound Mov Radiology [facility] 08/04/2017 6:10 AM [facility] [place] [facility] [place] [facility] [place] Vital Signs: Date Time Temp Pulse Resp B/P (MAP) Pulse Ox O2 Delivery O2 Flow Rate FiO2 07/28/17 16:00 93 Room Air 07/28/17 14:57 36.8 75 18 135/79 (97) 92 Room Air 07/28/17 12:00 92 Room Air 07/28/17 11:13 36.8 78 18 149/83 (105) 91 Room Air 07/28/17 08:00 98 Room Air 07/28/17 07:08 36.8 78 16 137/76 (96) 98 07/28/17 04:00 Room Air 07/28/17 03:54 36.6 90 18 125/75 (92) 85 Room Air 07/28/17 01:50 98 16 90 Room Air 07/28/17 00:00 Room Air 07/27/17 23:10 36.8 89 18 115/74 (88) 92 Room Air 07/27/17 20:00 Room Air 07/27/17 19:49 37.0 98 20 113/76 (88) 92 Room Air 07/27/17 19:28 109 16 93 Room Air Lab Results: Results Past 24 Hours Test 07/27/17 21:43 07/28/17 05:54 Range/Units Troponin I < 0.015 0-0.045 ng/ml White Blood Count 11.28 4.8-10.8 K/uL Red Blood Count 4.45 4.2-5.4 M/uL Hemoglobin 14.2 12.0-16.0 g/dL Hematocrit 42.1 37-47 % Mean Corpuscular Volume 94.6 80-100 fL Mean Corpuscular Hemoglobin 31.9 25-34 pg Mean Corpuscular Hemoglobin Concent 33.7 32-36 g/dl RDW Standard Deviation 47.4 36.4-46.3 fL RDW Coefficient of Variation 13.7 11.5-14.5 % Platelet Count 189 130-400 K/uL Mean Platelet Volume 10.7 7.4-10.4 fL Sodium Level 135 136-145 mmol/L Potassium Level 4.5 3.5-5.1 mmol/L Chloride Level 102 98-107 mmol/L Carbon Dioxide Level 27 21-32 mmol/L Anion Gap 6.0 3-11 mmol/L Blood Urea Nitrogen 25 7-18 mg/dl Creatinine 0.79 0.60-1.20 mg/dl Est Creatinine Clear Calc Drug Dose 62.5 ml/min Estimated GFR () 87.9 Estimated GFR (Non- 75.8 BUN/Creatinine Ratio 32.3 10-20 Random Glucose 107 70-99 mg/dl Calcium Level 8.6 8.5-10.1 mg/dl Chemistry Specimen Hemolysis
--- NOTE | 2017-07-28 18:23 | Discharge Instructions ---
Discharge Instructions Date of Service Jul 28, 2017. Admission Reason for Admission: Chest Pain Discharge Discharge Diagnosis / Problem: non cardiac chest pain, hypertension, anxiety, bronchitis Discharge Goals Goal(s): Decrease discomfort Activity Recommendations Activity Limitations: per Instructions/Follow-up section Shower/Bathe: no limitations . Instructions / Follow-Up Instructions / Follow-Up Pt is 72 y/o F with PMH CAD, DC in 2007, s/p PCI/Stent RCA, ischemic cardiomyopathy, biventricular ICD, HTN, HLD, migraine RODRIGUEZ, OA, GERD presented to ER for chest pressure and SOB and found to have blood pressure 183/114 Hypertension resolved in the ED, possible component of anxiety induced elevation in blood pressure Patient admitted for rule out acute coronary syndrome. has negative troponins and negative cardiac imaging studies Patient also reports of chronic cough CXR: 1. No evidence of focal pulmonary consolidation. 2. Mild interstitial thickening CTA: 1. Study is negative for pulmonary embolus. 2. Mild bibasilar infiltrative change Echocardiogram The left ventricle is normal in size. Left ventricular systolic function is normal. Ejection Fraction = 60-65%. The left ventricular wall motion is normal. The right ventricular systolic function is normal. No significant valvular pathology. When compared to the previous study March 2017 the wall motion abnormalities described are no longer present. Procedure Details A complete two-dimensional transthoracic echocardiogram was performed (2D, M- mode, Doppler and color flow Doppler). Left Ventricle The left ventricle is normal in size. There is normal left ventricular wall thickness. Ejection Fraction = 60-65%. Left ventricular systolic function is normal. The left ventricular wall motion is normal. Right Ventricle The right ventricle is normal size. There is a pacemaker lead in the right ventricle. The right ventricular systolic function is normal. Atria The left atrial size is normal. Right atrial size is normal. The interatrial septum is intact with no evidence for an atrial septal defect. Mitral Valve The mitral valve anatomy is normal. Significant mitral regurgitation is absent. Tricuspid Valve The tricuspid valve anatomy is normal. Significant tricuspid regurgitation is absent. Aortic Valve The aortic valve is tricuspid. The leaflet thickness if normal. There is no aortic stenosis, and no significant insufficiency. The aortic valve opens well. There is no significant aortic regurgitation. Pulmonic Valve The pulmonic valve is not well visualized. There is no significant pulmonary regurgitation. Great Vessels The aortic root and proximal ascending aorta are normal sized. Pericardium/Pleural There is no pericardial effusion. Patient had nuclear stress test - full report pending but preliminary read is nonischemic Patient also having chronic cough without evidence of pneumonia and likely has bronchitis Discharge diagnosis Noncardiac chest pain Hypertension bronchitis Discharge to home; continue home medications, new prescriptions for doxycycline and Tessalon Perles Upcoming appointments 08/01/2017 11:00 AM Pacer Clinic [facility] [place] 08/02/2017 11:00 AM Roman Ennis III, MD [facility] 08/03/2017 8:00 AM Tech Ultrasound [facility]iology [place] 08/04/2017 6:10 AM [facility] [place] [facility], [facility] Diet Patient's current hospital diet: AHA Diet (Heart Healthy) Discharge Diet Recommended Diet: AHA Diet (Heart Healthy) Pending Studies Studies pending at discharge: yes List of pending studies: full report of nuclear stress test 07/28/17 Medical Emergencies . Who to Call and When: Medical Emergencies: If at any time you feel your situation is an emergency, please call 911 immediately. . Non-Emergent Contact Non-Emergency issues call your: Primary Care Provider Call Non-Emergent contact if: you have any medication questions . . "Provider Documentation" section prepared by Markos Matson. .
--- NOTE | 2017-07-28 18:24 | Discharge Summary ---
Discharge Summary Date of Service Jul 28, 2017. Discharge Summary Admission Date: Jul 27, 2017 at 13:13 Discharge Date: Jul 28, 2017 Discharge Disposition: Home Principal Diagnosis: non cardiac chest pain, hypertension, anxiety, bronchitis Medication Reconciliation New Medications: Doxycycline Hyclate (Doxycycline Hyclate) 100 Mg Cap 1 TAB OR BID for 5 Days, #10 TAB Benzonatate (Benzonatate) 100 Mg Cap 100 MG PO TID for 5 Days, #15 CAP Continued Medications: Albuterol (Ventolin Hfa) 60 Puffs/5400 Mcg Aers 2 PUFF INH Q4 for SOB/Wheezing Amlodipine (Norvasc) 5 Mg Tab 0.5 TAB PO DAILY, TAB Aspirin (Aspirin Ec) 81 Mg Tab 81 MG PO QAM Clonidine Hcl (Catapres) 0.1 Mg Tab 0.1 MG PO BID, TAB Lisinopril (Lisinopril) 20 Mg Tab 20 MG PO BID Metoprolol Succ (Toprol Xl) (Toprol-Xl ) 100 Mg Tabcr 100 MG PO DAILY, TAB Nitroglycerin (Nitrostat) 0.4 Mg Tab 0.4 MG UT PRN, BTL Oxycodone HCl (Oxycodone HCl) 5 Mg Tab 5 MG PO Q6 PRN for Pain Pantoprazole (Protonix) 40 Mg Tab 40 MG PO QAM, #30 TAB Admission Information HPI (per Admitting provider): Pt is 72 y/o F with PMH CAD, IA in 2006, s/p PCI/Stent RCA, ischemic cardiomyopathy, biventricular ICD, HTN, HLD, migraine RODRIGUEZ, OA, GERD presented to ER with c/o chest pressure and SOB. Patient states was awakened from sleep this morning with anterior chest pressure and shortness of breath. She reports that she believes she was dreaming she was being suffocated and woke up to this chest pressure and shortness of breath. Patient states symptoms were making her feel very anxious. She reports with history of previous IA had chest pressure and she was concerned today. EMS was called and patient received aspirin and 1 spray of nitroglycerin in route. Patient reports improvement of the shortness of breath and chest pressure. Upon arrival to ER patient was given Ativan, Nitropaste. She was also given neb treatment and Solu-Medrol 60 mg IV. Patient denies any further chest pain or pressure or shortness of breath.Patient reports a possible history of COPD. Does not believe she has ever had PFTs. Does have albuterol inhaler to use as needed. Patient reports lost her inhaler approximately 6 months ago. Not on home oxygen. Patient reports that has had cough and nasal congestion 2 weeks. Cough is productive of yellow/green sputum. She has felt like she has had some wheezing with this. No prior treatment or OTC meds. Patient reports has been eating and drinking well. Patient does discuss that had a loss of her back in December 2016 and since she has been feeling sad and lonely. Patient denies any suicidal ideations and does not feel that she has been anxious until today. Denies fever/ chills, diaphoresis, N/V/D/C, RODRIGUEZ, dizziness, syncope, vision changes, neck pain , hemoptysis, orthopnea, palpitations, sore throat, choking, otalgia, abdominal pain, paresthesias, weakness, extremity edema, rashes, urinary symptoms. Physical Exam (per Admitting): General Appearance: WD/WN, no apparent distress Head: normocephalic, atraumatic Eyes: normal inspection, PERRL, EOMI, sclerae normal ENT: hearing grossly normal, pharynx normal, + pertinent finding (mucous membranes moist) Neck: supple, no JVD, trachea midline Respiratory/Chest: no respiratory distress, no accessory muscle use, + decreased breath sounds (diminished breath sounds throughout, no active wheezing at this time (pt received neb tx), no rales or rhonchi) Cardiovascular: regular rate, rhythm, no edema, normal peripheral pulses Abdomen/GI: normal bowel sounds, non tender, soft Extremities/Musculoskelatal: normal inspection, no calf tenderness, no pedal edema, normal range of motion Neurologic/Psych: alert, oriented x 3, + pertinent finding (pt does become tearful when talks about the passing of her , otherwise at this time does not appear anxious.) Skin: normal color, warm/dry Hospital Course Pt is 72 y/o F with PMH CAD, IA in 2006, s/p PCI/Stent RCA, ischemic cardiomyopathy, biventricular ICD, HTN, HLD, migraine RODRIGUEZ, OA, GERD presented to ER for chest pressure and SOB and found to have blood pressure 183/114 Hypertension resolved in the ED, possible component of anxiety induced elevation in blood pressure Patient admitted for rule out acute coronary syndrome. has negative troponins and negative cardiac imaging studies Patient also reports of chronic cough CXR: 1. No evidence of focal pulmonary consolidation. 2. Mild interstitial thickening CTA: 1. Study is negative for pulmonary embolus. 2. Mild bibasilar infiltrative change Echocardiogram The left ventricle is normal in size. Left ventricular systolic function is normal. Ejection Fraction = 60-65%. The left ventricular wall motion is normal. The right ventricular systolic function is normal. No significant valvular pathology. When compared to the previous study March 2017 the wall motion abnormalities described are no longer present. Procedure Details A complete two-dimensional transthoracic echocardiogram was performed (2D, M- mode, Doppler and color flow Doppler). Left Ventricle The left ventricle is normal in size. There is normal left ventricular wall thickness. Ejection Fraction = 60-65%. Left ventricular systolic function is normal. The left ventricular wall motion is normal. Right Ventricle The right ventricle is normal size. There is a pacemaker lead in the right ventricle. The right ventricular systolic function is normal. Atria The left atrial size is normal. Right atrial size is normal. The interatrial septum is intact with no evidence for an atrial septal defect. Mitral Valve The mitral valve anatomy is normal. Significant mitral regurgitation is absent. Tricuspid Valve The tricuspid valve anatomy is normal. Significant tricuspid regurgitation is absent. Aortic Valve The aortic valve is tricuspid. The leaflet thickness if normal. There is no aortic stenosis, and no significant insufficiency. The aortic valve opens well. There is no significant aortic regurgitation. Pulmonic Valve The pulmonic valve is not well visualized. There is no significant pulmonary regurgitation. Great Vessels The aortic root and proximal ascending aorta are normal sized. Pericardium/Pleural There is no pericardial effusion. Patient had nuclear stress test - full report pending but preliminary read is nonischemic Patient also having chronic cough without evidence of pneumonia and likely has bronchitis Discharge diagnosis Noncardiac chest pain Hypertension bronchitis Discharge to home; continue home medications, new prescriptions for doxycycline and Tessalon Perles Upcoming appointments 08/01/2017 11:00 AM Pacer Clinic [facility] 08/02/2017 11:00 AM Roman Ennis III, MD [facility] 08/03/2017 8:00 AM Tech Ultrasound Mov Radiology [facility] 08/04/2017 6:10 AM [facility] [place] [facility] [place] Total time spent on discharge = 60 minutes This includes examination of the patient, discharge planning, medication reconciliation, and communication with other providers. Discharge Instructions see above
--- NOTE | 2017-07-28 19:02 | MYOCARDIAL PERFUSION SCAN ---
TECHNIQUE: For the stress portion of the study, 33.2 mCi of intravenous technetium-99m sestamibi was given by IV injection at 1340 p.m. on 07/28/2017. Thirty minutes following the injection, imaging of the heart was performed in multiple projections. The rest portion of the study, 10.8 mCi of technetium-99m sestamibi was injected IV at 11:45 a.m. One hour following the injection, imaging of the heart was performed in the same projections. Following the injection of Lexiscan, there were no significant EKG changes that would suggest ischemia and the patient was asymptomatic. When comparing the rest to stress sestamibi scans there is a large amount of radioisotope uptake within the diaphragm and the mesentery which washes out the inferior myocardium on both the rest and stress images. Gated analysis is helpful with this study. I believe overall myocardial perfusion is normal. There is normal wall motion during gaiting. The estimated left ventricular ejection fraction is around 50%. SUMMARY: Overall, this Lexiscan Cardiolite study is negative for ischemia and denotes a low probability for hemodynamically significant coronary artery disease.
[2017-07-28] MEDS ORDERED: BENZONATATE 100MG CAP PO SCH (21:00)
== END 2017-07-28 20:03 | disposition home or self-care (01) | DRG 203 ==
LOC: EDBD 08:42 → C.EDB 08:43 → ENRESERV 12:37 → C.MED 13:13
PROVIDERS: ADMIT Hospitalist; ATTEND Hospitalist
DX: J40 Bronchitis, not specified as acute or chronic (principal); F41.9 Anxiety disorder, unspecified; R07.89 Other chest pain; I10 Essential (primary) hypertension; I25.10 Atherosclerotic heart disease of native coronary artery without angina pectoris; I25.5 Ischemic cardiomyopathy; E78.5 Hyperlipidemia, unspecified; M19.90 Unspecified osteoarthritis, unspecified site; K21.9 Gastro-esophageal reflux disease without esophagitis; Z66 Do not resuscitate; I25.2 Old myocardial infarction; Z95.5 Presence of coronary angioplasty implant and graft; Z95.810 Presence of automatic (implantable) cardiac defibrillator; Z87.891 Personal history of nicotine dependence; Z79.52 Long term (current) use of systemic steroids; Z79.899 Other long term (current) drug therapy; Z88.5 Allergy status to narcotic agent; Z88.6 Allergy status to analgesic agent; Z88.8 Allergy status to other drugs, medicaments and biological substances; Z82.49 Family history of ischemic heart disease and other diseases of the circulatory system; Z83.49 Family history of other endocrine, nutritional and metabolic diseases; Z80.42 Family history of malignant neoplasm of prostate

== ENCOUNTER 2020-08-16 11:27 | Observation (INO) ==
[2020-08-16] MEDS ORDERED: ONDANSETRON INJ 2 MG/ML 2 ML VIAL IV STA (11:40)
[2020-08-16] MEDS ORDERED: SODIUM CHLORIDE 0.9% 1000ML 1,000 ML IV SCH (11:45)
[2020-08-16] MEDS ORDERED: ACETAMINOPHEN 500 MG TAB PO STA (11:48)
--- NOTE | 2020-08-16 11:48 | Emergency Department Note ---
Impression & Plan COVID-19, Nausea, Non-ST elevation RI (NSTEMI), Dehydration, Weakness, Abdominal pain ED Provider Note Provider: Herbert Jarrell MD DATE OF SERVICE: 08/16/2020 CHIEF COMPLAINT: Weakness, nausea, lethargy HISTORY OF PRESENT ILLNESS: Patient is a 75-year-old female with a past medical history including CAD and ischemic cardiomyopathy, hypertension, hyperlipidemia, migraine presenting today via ambulance from her home reportedly was lethargic this morning and very weak. Patient evidently tested positive on the for coronavirus and was hospitalized until yesterday at [facility]. Ports the patient was discharged home on 2 L of oxygen which is new for her. Patient states he got home yesterday and lives with other family members. She reports she was unable to eat or drink much overnight felt very nauseous had multiple episodes of nonbloody diarrhea. Denies significant chest pain but reports a headache. Patient's records also indicates she was treated for a Klebsiella UTI in [place] but she states she was not discharged on any antibiotics. EMS report they gave her 300 cc normal saline fluid bolus prior to arrival and she appeared more alert and awake she was initially lethargic upon their arrival in her house. Patient denies any falls or trauma. Patient states she is not that short of breath but still has a slight cough. EMS does report that the patient had negative Covid test prior to discharge from the hospital yesterday. REVIEW OF SYSTEMS: A total of 10 review of systems was obtained and negative except as stated above in the HPI. PAST MEDICAL HISTORY: As noted above MEDICATIONS: Reviewed home medication list SOCIAL HISTORY: Lives at home with family, former smoker PHYSICAL EXAM: GENERAL: alert and oriented in no acute distress on stretcher but appears fatigued resting initially with eyes closed Head: normocephalic and atraumatic EYES: No injection, discharge or icterus. NECK: Trachea midline. Supple. ENT: Mucous membranes pink and moist. LUNGS: Airway patent. No retractions. Breath sounds clear bilaterally HEART: Regular rate and rhythm. No chest wall tenderness ABDOMEN: Soft with some mild mid abdominal tenderness. No peritonitis. SKIN: Acyanotic, warm, dry, without rashes EXTREMITIES: Without swelling, tenderness or deformity NEUROLOGICAL: No focal deficits moving all extremities. No aphasia. No facial droop or slurred speech. EK bpm atrially sensed ventricular paced rhythm without PVC. No acute ST segment elevation is noted with some anterior T wave inversions and in comparison to previous from July 282017 the anterior T wave inversions do appear new. CONTINUOUS CARDIAC MONITORING: was ordered and showed a heart rate of 60s-50s bpm in normal sinus rhythm to sinus bradycardia Patient's laboratory studies and imaging reviewed. Differential includes Infection, dehydration, metabolic abnormality, hypo/hyperglycemia, electrolyte disturbance, anemia, hypoxia, cardiac sources, intracerebral event, toxicologic, neurologic, as well as other pathologies. IMPRESSION/MEDICAL DECISION MAKING: Patient presents with recent hospitalization for UTI and coronavirus at outside hospital with weakness lethargy and nausea persisting. Borderline hypoxic on room air at 89 to 90%. Placed on 2 L that she was discharged on. Nonfocal exam complains of some headache. Has some abdominal pain as well as some tenderness. Blood work was sent as well as repeat Covid test given her significant persistent symptoms. Lactate and cultures were sent. Patient denies active chest pain although EKG does show what appears to be some new T wave inversions. Nonfocal neurological exam and appears more alert now and do not believe she is suffering from acute stroke or CVA. Believe the weakness and lethargy she experienced are likely more metabolic and infectious related to some dehydration or coronavirus infection. EKG with a paced rhythm with new anterior T wave inversions. Troponin is mildly elevated. Patient denies active chest pain. Patient states she is on daily aspirin but given additional for full dose today. Patient with evidence of slight leukocytosis and still positive Covid test today. Urine looks clean today. No evidence influenza. Lipase not elevated and no significant transa minitis. Creatinine BUN elevated believe likely some component of dehydration and given a liter of IV fluid. Cautious given her history of some cardiac ischemic myopathy to prevent fluid overload. CRP is mildly elevated likely consistent with Covid infection. Lactate is not elevated. No acute parenchymal pneumonia or inflammatory process is no other question of possible pulmonary nodule. Lower suspicion at this time for acute sepsis. Patient also improved after fluid hydration. Discussed with her obtaining a CT of the abdomen pelvis without contrast given her renal function to exclude obstruction or possible renal stone. No acute pathologies concerning for obstruction or renal stone. Inflammatory pneumonitis of the lungs noted at the bases on the CT abdomen pelvis again consistent with Covid. She was in agreement with plan for admission here. Hospitalist was contacted. DIAGNOSIS: COVID-19, dehydration, nausea, abdominal pain, NSTEMI, weakness DISPOSITION: Hospitalist will evaluate Patient was agreeable with this plan. Critical Care I have personally spent 32 minutes of critical care time in the direct management of this patient. This includes bedside care, interpretation of diagnostic studies, and testing, discussion with consultants, patient, and family members, and other required patient management activities. These 32 minutes is in excess of all separately billable procedures. Past Med/Surg History Medical History (Updated 08/16/20 @ 18:19 by Herbert Jarrell M.D.) Acute anterior wall RI Anxiety CAD (coronary artery disease) "RI 2006. S/P PCI/Stent RCA" Chronic hepatitis C without hepatic coma CKD (chronic kidney disease), stage III COPD, group C, by GOLD 2017 classification Elevated troponin GERD (gastroesophageal reflux disease) H/O cardiac pacemaker HTN (hypertension) Hyperlipidemia Hypoxia Ischemic cardiomyopathy LBBB (left bundle branch block) Migraine OA (osteoarthritis) Surgical History (Updated 08/16/20 @ 15:11 by Erna Dunn PA-C) H/O release of tendon H/O: hysterectomy History of carpal tunnel surgery History of implantable cardioverter-defibrillator (ICD) placement Hx of cataract surgery S/P cardiac cath S/P cholecystectomy Family History (Updated 08/16/20 @ 15:12 by Erna Dunn PA-C) Father Prostate cancer Heart disease Thyroid disorder Mother Cancer Cervical Coronary heart disease s/p CABG Diabetes Social History (Updated 08/16/20 @ 15:12 by Erna Dunn PA-C) Smoking Status: Former smoker Tobacco Type: Cigarettes packs per day: 0.5; Years Smoked: 30; Second Hand Exposure: No; Do You Dip or Chew Tobacco: No; Tobacco Cessation Education Requested by Patient: No Hx Alcohol Use: No Hx Substance Use: No Preferred Language: Romanian Communication Ability: Effective Pulper Tender Required: No Beliefs That Will Affect Care: None Current Living Situation: Family Other Information That Helps Us Care for You: No Feels Safe at Home: Yes Safety Concerns: Feels Safe At This Time Assistive Devices: Denture - Upper and Denture - Lower Allergies Allergies Allergy/AdvReac Type Severity Reaction Status Date / Time NSAIDS (Non-Steroidal Allergy Severe GI ISSUES Unverified 08/16/20 12:39 Anti-Inflamma isosorbide Allergy Unknown VOMIT/HEADA Unverified 08/16/20 12:39 CARLOS Gwazlxs-Yeb-Sfx Reductase Allergy Unknown LIVER Unverified 08/16/20 12:39 Inhibitor FUNCTION ELEVATES tramadol Allergy Unknown VOMITING Unverified 08/16/20 12:39 Home Meds Home Medications Medication Instructions Recorded Confirmed aspirin [Aspirin Low-Strength] 81 mg PO DAILY #0 03/30/17 08/16/20 clonidine HCl 0.1 mg PO BID #0 tab 03/30/17 08/16/20 nitroglycerin 0.4 mg SUBLINGUAL UD #0 btl 03/30/17 08/16/20 pantoprazole 40 mg PO DAILY #30 tab 03/30/17 08/16/20 albuterol sulfate 2 puff INHALATION Q4H #0 07/27/17 08/16/20 lisinopril 20 mg PO BID #0 07/27/17 08/16/20 metoprolol succinate 100 mg PO DAILY #0 tab 07/27/17 08/16/20 hydroxyzine HCl 25 mg PO TID PRN 08/16/20 08/16/20 indapamide 2.5 mg PO DAILY 08/16/20 08/16/20 lorazepam 0.5 mg PO UD PRN 08/16/20 08/16/20 oxycodone 5 mg PO QID PRN 08/16/20 08/16/20 rosuvastatin 5 mg PO DAILY 08/16/20 08/16/20 trazodone 25 mg PO HS 08/16/20 08/16/20 umeclidinium-vilanterol [Anoro 1 inh INHALATION DAILY 08/16/20 08/16/20 Ellipta] venlafaxine 75 mg PO HS 08/16/20 08/16/20 Results & Data (ED) Vital Signs Vital Signs - 24 hr 08/16/20 11:27 08/16/20 11:33 08/16/20 11:38 Temperature 36.6 C Temperature Source Oral Pulse Rate 72 70 71 Pulse Rate [Apical] 72 Pulse Rate from SpO2 Sensor 70 72 Respiratory Rate 18 20 16 Respiratory Effort / Characteristics SOB on Exertion Blood Pressure 115/69 115/69 Blood Pressure [Left Arm] 111/88 Blood Pressure Mean 84 84 Blood Pressure Mean [Left Arm] 95 Blood Pressure Position Lying Blood Pressure Position [Left Arm] Lying Pulse Oximetry 89 L 93 94 Oxygen Delivery Method Room Air Oxygen Flow Rate Sepsis Recent Fever Within 48 Hours No Sepsis New/Unexplained Change in Mental Status N/A Sepsis Action Taken by Nursing No Action Required 08/16/20 12:00 08/16/20 12:01 08/16/20 12:30 Temperature Temperature Source Pulse Rate 56 L 57 L 57 L Pulse Rate [Apical] Pulse Rate from SpO2 Sensor 55 L 57 L 58 L Respiratory Rate 19 21 17 Respiratory Effort / Characteristics Blood Pressure 104/57 L Blood Pressure [Left Arm] Blood Pressure Mean 72 Blood Pressure Mean [Left Arm] Blood Pressure Position Blood Pressure Position [Left Arm] Pulse Oximetry 96 96 98 Oxygen Delivery Method Nasal Cannula Oxygen Flow Rate 2 Sepsis Recent Fever Within 48 Hours Sepsis New/Unexplained Change in Mental Status Sepsis Action Taken by Nursing 08/16/20 13:00 08/16/20 13:01 08/16/20 13:30 Temperature Temperature Source Pulse Rate 58 L 59 L 60 Pulse Rate [Apical] Pulse Rate from SpO2 Sensor 59 L 59 L 60 Respiratory Rate 17 24 16 Respiratory Effort / Characteristics Blood Pressure 128/56 L Blood Pressure [Left Arm] Blood Pressure Mean 80 Blood Pressure Mean [Left Arm] Blood Pressure Position Blood Pressure Position [Left Arm] Pulse Oximetry 99 98 97 Oxygen Delivery Method Oxygen Flow Rate Sepsis Recent Fever Within 48 Hours Sepsis New/Unexplained Change in Mental Status Sepsis Action Taken by Nursing 08/16/20 13:31 08/16/20 13:32 08/16/20 14:00 Temperature Temperature Source Pulse Rate 58 L 55 L 55 L Pulse Rate [Apical] Pulse Rate from SpO2 Sensor 58 L 54 L 54 L Respiratory Rate 23 23 20 Respiratory Effort / Characteristics Blood Pressure 119/83 119/80 Blood Pressure [Left Arm] Blood Pressure Mean 95 93 Blood Pressure Mean [Left Arm] Blood Pressure Position Blood Pressure Position [Left Arm] Pulse Oximetry 97 97 97 Oxygen Delivery Method Oxygen Flow Rate Sepsis Recent Fever Within 48 Hours Sepsis New/Unexplained Change in Mental Status Sepsis Action Taken by Nursing Laboratory Data Result diagrams: 08/16/20 12:31 08/16/20 12:31 Lab Results 08/16/20 08/16/20 08/16/20 Range/Units 11:43 11:43 11:52 WBC (4.8-10.8) K/uL RBC (4.2-5.4) M/uL Hgb (12.0-16.0) g/dL Hct (37-47) % MCV (80-100) fL MCH (25-34) pg MCHC (32-36) g/dL RDW Std Deviation (36.4-46.3) fL RDW Coeff of Julia (11.5-14.5) % Plt Count (130-400) K/uL MPV (7.4-10.4) fL Immature Gran % (Auto) % Neut % (Auto) % Lymph % (Auto) % [place] % (Auto) % Eos % (Auto) % Baso % (Auto) % Neut # (Auto) (1.4-6.5) K/uL Lymph # (Auto) (1.2-3.4) K/uL [place] # (Auto) (0.11-0.59) K/uL Eos # (Auto) (0-0.5) K/uL Baso # (Auto) (0-0.2) K/uL Immature Gran # (Auto) (0.00-0.02) K/uL PT (9.0-12.0) Seconds INR (0.9-1.1) D-Dimer (0-500) ug/L FEU Sodium (136-145) mmol/L Potassium (3.5-5.1) mmol/L Chloride (98-107) mmol/L Carbon Dioxide (21-32) mmol/L Anion Gap (3-11) BUN (7-18) mg/dl Creatinine (0.6-1.2) mg/dl Est Cr Clr Drug Dosing ml/min Est GFR ( Amer) Est GFR (Non-Af Amer) BUN/Creatinine Ratio (10-20) Glucose (70-99) mg/dl Lactate (0.4-2.0) mmol/L Calcium (8.5-10.1) mg/dl Magnesium (1.8-2.4) mg/dl Total Bilirubin (0.2-1) mg/dl AST (15-37) U/L ALT (12-78) U/L Alkaline Phosphatase (45-117) U/L Troponin I (0-0.045) ng/ml C-Reactive Protein (0-0.29) mg/dl Total Protein (6.4-8.2) gm/dl Albumin (3.4-5.0) gm/dl Globulin (2.5-4.0) gm/dl Albumin/Globulin Ratio (0.9-2) Lipase (73-393) U/L TSH (0.300-4.500) uIu/ml Urine Color Yellow Urine Appearance Clear (Clear) Urine pH 5.5 (4.5-7.5) Ur Specific [place] 1.022 (1.000-1.030) Urine Protein 2+ H (Negative) Urine Glucose (UA) Negative (Negative) Urine Ketones Negative (Negative) Urine Blood Negative (Negative) Urine Nitrite Negative (Negative) Urine Bilirubin Negative (Negative) Urine Urobilinogen Negative (Negative) Ur Leukocyte Esterase Negative (Negative) Urine WBC (Auto) 1-5 (0-5) /hpf Urine RBC (Auto) 0-4 (0-4) /hpf U Hyaline Cast (Auto) 5-10 H (0-5) /lpf U Epithel Cells (Auto) >30 H (0-5) /lpf Urine Bacteria (Auto) Negative (Negative) Ur Renal Epithelial Cell Not Reportable COVID-19 Eval Order [facility]FluRsv at [facility] SARS-CoV-2 (PCR) POSITIVE A* (Negative) Influenza Type A (PCR) Negative (Neg) Influenza Type B (PCR) Negative (Neg) RSV (RT-PCR) Negative (Neg) 08/16/20 08/16/20 08/16/20 Range/Units 12:31 12:31 12:31 WBC 11.40 H (4.8-10.8) K/uL RBC 4.54 (4.2-5.4) M/uL Hgb 15.3 (12.0-16.0) g/dL Hct 42.4 (37-47) % MCV 93.4 (80-100) fL MCH 33.7 (25-34) pg MCHC 36.1 H (32-36) g/dL RDW Std Deviation 45.4 (36.4-46.3) fL RDW Coeff of Julia 13.2 (11.5-14.5) % Plt Count 166 (130-400) K/uL MPV 11.8 H (7.4-10.4) fL Immature Gran % (Auto) 0.7 % Neut % (Auto) 82.8 % Lymph % (Auto) 11.9 % Cocke % (Auto) 4.5 % Eos % (Auto) 0.0 % Baso % (Auto) 0.1 % Neut # (Auto) 9.44 H (1.4-6.5) K/uL Lymph # (Auto) 1.36 (1.2-3.4) K/uL [place] # (Auto) 0.51 (0.11-0.59) K/uL Eos # (Auto) 0.00 (0-0.5) K/uL Baso # (Auto) 0.01 (0-0.2) K/uL Immature Gran # (Auto) 0.08 H (0.00-0.02) K/uL PT 11.7 (9.0-12.0) Seconds INR 1.2 H (0.9-1.1) D-Dimer 2310 H* (0-500) ug/L FEU Sodium 132 L (136-145) mmol/L Potassium 4.1 (3.5-5.1) mmol/L Chloride 98 (98-107) mmol/L Carbon Dioxide 27 (21-32) mmol/L Anion Gap 7.0 (3-11) BUN 73 H (7-18) mg/dl Creatinine 1.76 H (0.6-1.2) mg/dl Est Cr Clr Drug Dosing 26.3 ml/min Est GFR ( Amer) 32.7 Est GFR (Non-Af Amer) 28.2 BUN/Creatinine Ratio 41.6 H (10-20) Glucose 156 H (70-99) mg/dl Lactate (0.4-2.0) mmol/L Calcium 8.3 L (8.5-10.1) mg/dl Magnesium 2.5 H (1.8-2.4) mg/dl Total Bilirubin 0.6 (0.2-1) mg/dl AST 19 (15-37) U/L ALT 24 (12-78) U/L Alkaline Phosphatase 50 (45-117) U/L Troponin I 0.090 H* (0-0.045) ng/ml C-Reactive Protein 4.03 H (0-0.29) mg/dl Total Protein 7.0 (6.4-8.2) gm/dl Albumin 2.7 L (3.4-5.0) gm/dl Globulin 4.3 H (2.5-4.0) gm/dl Albumin/Globulin Ratio 0.6 L (0.9-2) Lipase 283 (73-393) U/L TSH 0.478 (0.300-4.500) uIu/ml Urine Color Urine Appearance (Clear) Urine pH (4.5-7.5) Ur Specific [place] (1.000-1.030) Urine Protein (Negative) Urine Glucose (UA) (Negative) Urine Ketones (Negative) Urine Blood (Negative) Urine Nitrite (Negative) Urine Bilirubin (Negative) Urine Urobilinogen (Negative) Ur Leukocyte Esterase (Negative) Urine WBC (Auto) (0-5) /hpf Urine RBC (Auto) (0-4) /hpf U Hyaline Cast (Auto) (0-5) /lpf U Epithel Cells (Auto) (0-5) /lpf Urine Bacteria (Auto) (Negative) Ur Renal Epithelial Cell COVID-19 Eval Order SARS-CoV-2 (PCR) (Negative) Influenza Type A (PCR) (Neg) Influenza Type B (PCR) (Neg) RSV (RT-PCR) (Neg) 08/16/20 Range/Units 12:31 WBC (4.8-10.8) K/uL RBC (4.2-5.4) M/uL Hgb (12.0-16.0) g/dL Hct (37-47) % MCV (80-100) fL MCH (25-34) pg MCHC (32-36) g/dL RDW Std Deviation (36.4-46.3) fL RDW Coeff of Julia (11.5-14.5) % Plt Count (130-400) K/uL MPV (7.4-10.4) fL Immature Gran % (Auto) % Neut % (Auto) % Lymph % (Auto) % [place] % (Auto) % Eos % (Auto) % Baso % (Auto) % Neut # (Auto) (1.4-6.5) K/uL Lymph # (Auto) (1.2-3.4) K/uL [place] # (Auto) (0.11-0.59) K/uL Eos # (Auto) (0-0.5) K/uL Baso # (Auto) (0-0.2) K/uL Immature Gran # (Auto) (0.00-0.02) K/uL PT (9.0-12.0) Seconds INR (0.9-1.1) D-Dimer (0-500) ug/L FEU Sodium (136-145) mmol/L Potassium (3.5-5.1) mmol/L Chloride (98-107) mmol/L Carbon Dioxide (21-32) mmol/L Anion Gap (3-11) BUN (7-18) mg/dl Creatinine (0.6-1.2) mg/dl Est Cr Clr Drug Dosing ml/min Est GFR ( Amer) Est GFR (Non-Af Amer) BUN/Creatinine Ratio (10-20) Glucose (70-99) mg/dl Lactate 1.6 (0.4-2.0) mmol/L Calcium (8.5-10.1) mg/dl Magnesium (1.8-2.4) mg/dl Total Bilirubin (0.2-1) mg/dl AST (15-37) U/L ALT (12-78) U/L Alkaline Phosphatase (45-117) U/L Troponin I (0-0.045) ng/ml C-Reactive Protein (0-0.29) mg/dl Total Protein (6.4-8.2) gm/dl Albumin (3.4-5.0) gm/dl Globulin (2.5-4.0) gm/dl Albumin/Globulin Ratio (0.9-2) Lipase (73-393) U/L TSH (0.300-4.500) uIu/ml Urine Color Urine Appearance (Clear) Urine pH (4.5-7.5) Ur Specific [place] (1.000-1.030) Urine Protein (Negative) Urine Glucose (UA) (Negative) Urine Ketones (Negative) Urine Blood (Negative) Urine Nitrite (Negative) Urine Bilirubin (Negative) Urine Urobilinogen (Negative) Ur Leukocyte Esterase (Negative) Urine WBC (Auto) (0-5) /hpf Urine RBC (Auto) (0-4) /hpf U Hyaline Cast (Auto) (0-5) /lpf U Epithel Cells (Auto) (0-5) /lpf Urine Bacteria (Auto) (Negative) Ur Renal Epithelial Cell COVID-19 Eval Order SARS-CoV-2 (PCR) (Negative) Influenza Type A (PCR) (Neg) Influenza Type B (PCR) (Neg) RSV (RT-PCR) (Neg) Administered Medications Al Hydrox/Mg Hydrox/Simethicone (Aluminum/Magnesium/Simeth (Maalox Max) 30 Ml Udc) 15 ml PO Q6H PRN PRN Reason: Dyspepsia Stop: 09/15/20 16:03 Last Admin: 08/16/20 17:32 Dose: 15 ml Documented by: [id number] Famotidine (Famotidine 10 Mg Tablet) 10 mg PO BID LISHA Stop: 09/15/20 15:42 Last Admin: 08/16/20 17:39 Dose: 10 mg Documented by: [id number] Sodium Chloride (Nss 1000ml) 1,000 mls @ 100 mls/hr IV .Q10H LISHA Stop: 08/17/20 11:02 Last Admin: 08/16/20 15:36 Dose: 100 mls/hr Documented by: [id number] Discontinued Medications Acetaminophen (Acetaminophen 500 Mg Tab) 1,000 mg PO NOW STA Stop: 08/16/20 11:49 Last Admin: 08/16/20 11:53 Dose: 1,000 mg Documented by: [id number] Aspirin (Aspirin 81 Mg Chew) 243 mg PO NOW STA Stop: 08/16/20 13:37 Last Admin: 08/16/20 13:56 Dose: 243 mg Documented by: [id number] Dexamethasone Sodium Phosphate (DexamethasonePf 10 Mg/Ml Vial) 6 mg IV NOW ONE Stop: 08/16/20 13:26 Last Admin: 08/16/20 13:34 Dose: 6 mg Documented by: [id number] Sodium Chloride (Nss 1000ml) 1,000 mls @ 999 mls/hr IV .Q1H1M LISHA Stop: 08/16/20 12:45 Last Infusion: 08/16/20 12:52 Dose: 0 mls/hr Documented by: [id number] Admin: 08/16/20 11:51 Dose: 999 mls/hr Documented by: [id number] Ioversol (Ioversol 100ml) 93 ml IV ONCE ONE Stop: 08/16/20 11:54 Last Admin: 08/16/20 11:53 Dose: 93 ml Documented by: [id number] Ondansetron HCl (Ondansetron Inj 2 Mg/Ml 2 Ml Vial) 4 mg IV NOW STA Stop: 08/16/20 11:41 Last Admin: 08/16/20 11:51 Dose: 4 mg Documented by: [id number] Discharge Plan Visit Data Chief Complaint: Illness ED Provider: Herbert Jarrell Discharge Problem: COVID-19, Nausea, Non-ST elevation RI (NSTEMI), Dehydration, Weakness, Abdominal pain Patient Disposition: Admitted As Inpatient Discharge Instructions Interventions: ED Discharge Assessment Last Done: 08/16/20 14:36 Discharge Problem: Abdominal pain Qualifiers: Abdominal location: periumbilical Qualified Code(s): R10.33 - Periumbilical pain
[2020-08-16] MEDS ORDERED: OPTIRAY 320 100ml IV ONE (11:53)
[2020-08-16 12:09] LABS: Appearance Urine Clear (Clear); Bacteria Urine Automated Negative (Negative); Bilirubin Urine Negative (Negative); Blood Urine Negative (Negative); Color Urine Yellow; Epithelial Cell Urine Auto >30 /lpf (0-5); Glucose Urine UA Negative (Negative); Ketones Urine Negative (Negative); Leukocyte Esterase Urine Negative (Negative); Nitrite Urine Negative (Negative); Protein Urine 2+ (Negative); RBC Urine Automated 0-4 /hpf (0-4); Specific Gravity Urine 1.022 (1.000-1.030); Urobilinogen Urine Negative (Negative); pH Urine 5.5 (4.5-7.5)
--- NOTE | 2020-08-16 12:25 | XRay Report ---
XR chest 1V portable HISTORY: 75 years-old Female weakness acute weakness COMPARISON: Chest radiograph and CTA chest 07/27/2017 TECHNIQUE: Portable AP view the chest FINDINGS: Left subclavian pacer/AICD. Cardiomediastinal and hilar silhouettes are unchanged. Calcified plaque o f the thoracic aorta. No pneumothorax, pleural effusion, airspace consolidation or overt pulmonary ed akbar. Ill-defined 12 mm left midlung opacity. Degenerative changes of the shoulders and spine. Cholecy stectomy. Degenerative changes of the shoulders and spine. IMPRESSION: 1. No acute process. 2. Ill-defined 12 mm nodular opacity of the left midlung is likely secondary to summation density. A pulmonary nodule is considered less likely. ACT 112: Negative or not required by law. The above report was generated using voice recognition software. It may contain grammatical, syntax o r spelling errors. Electronically signed by: Dave Claros M.D. 08/16/2020 12:24 PM
[2020-08-16 12:44] LABS: Basophils # (auto) 0.01 K/uL (0-0.2); Basophils % (auto) 0.1 %; Hematocrit (blood only) 42.4 % (37-47); Hemoglobin 15.3 g/dL (12.0-16.0); Immature Granulocytes # (auto) 0.08 K/uL (0.00-0.02); Immature Granulocytes % (auto) 0.7 %; Lymphocytes # (auto) 1.36 K/uL (1.2-3.4); Lymphocytes % (auto) 11.9 %; Mean Corpuscular Hemoglobin 33.7 pg (25-34); Mean Corpuscular Hgb Conc 36.1 g/dL (32-36); Mean Corpuscular Volume 93.4 fL (80-100); Mean Platelet Volume 11.8 fL (7.4-10.4); Monocytes # (auto) 0.51 K/uL (0.11-0.59); Monocytes % (auto) 4.5 %; Neutrophils # (auto) 9.44 K/uL (1.4-6.5); Neutrophils % (auto) 82.8 %; Platelet Count 166 K/uL (130-400); RDW Coefficient of Variation 13.2 % (11.5-14.5); RDW Standard Deviation 45.4 fL (36.4-46.3); Red Blood Count 4.54 M/uL (4.2-5.4)
[2020-08-16 12:45] LABS: Influenza A virus by PCR Negative (Neg); Influenza B virus by PCR Negative (Neg); RSV by PCR Negative (Neg)
[2020-08-16 12:58] LABS: INR 1.2 (0.9-1.1); Prothrombin Time 11.7 Seconds (9.0-12.0)
[2020-08-16 13:01] LABS: Albumin Level 2.7 gm/dl (3.4-5.0); BUN Creatinine Ratio 41.6 (10-20); Calcium 8.3 mg/dl (8.5-10.1); Creatinine Clr Calc Pharmacy 26.3 ml/min; Est GFR (African American) 32.7; Est GFR (Non-African American) 28.2; Magnesium 2.5 mg/dl (1.8-2.4); Potassium 4.1 mmol/L (3.5-5.1)
[2020-08-16 13:02] LABS: D Dimer 2310 ug/L FEU (0-500)
[2020-08-16 13:05] LABS: SARS CoV2 RNA(COVID-19) InHosp POSITIVE (Negative)
[2020-08-16 13:12] LABS: Albumin Globulin Ratio 0.6 (0.9-2); Bilirubin,Total 0.6 mg/dl (0.2-1); C Reactive Protein 4.03 mg/dl (0-0.29); Globulin 4.3 gm/dl (2.5-4.0); Thyroid Stimulating Hormone 0.478 uIu/ml (0.300-4.500); Troponin I 0.09 ng/ml (0-0.045)
[2020-08-16] MEDS ORDERED: dexAMETHasone**PF** 10 MG/ML VIAL IV ONE (13:25)
[2020-08-16] MEDS ORDERED: ASPIRIN 81 MG CHEW PO STA (13:36)
--- NOTE | 2020-08-16 14:25 | CT Scan Report ---
ABDOMEN AND PELVIS CT WITHOUT CONTRAST CT DOSE: 245.53 mGy.cm HISTORY: Acute nodule the with acute kidney injury and abdominal pain covid, nausea, abdominal pain, esmer TECHNIQUE: Multiaxial CT images of the abdomen and pelvis were performed without contrast. A dose lo wering technique was utilized adhering to the principles of ALARA. COMPARISON STUDY: None. FINDINGS: Partially imaged pacer leads. Coronary artery calcifications. Left lung base tree-in-bud no dules and bibasilar groundglass opacities. No pneumatosis or pneumoperitoneum. Spleen and adrenal gla nds are unremarkable. Cholecystectomy with extrahepatic biliary ductal dilation, likely postsurgical. Mild generalized pancreatic atrophy. Unremarkable liver. Indeterminate exophytic 1.5 cm lesion of the interpolar left kidney with [place] of 26. 5 mm nonob structing calculus of the superior pole right kidney. No ureteral calculi or obstructive uropathy. Ur inary bladder is unremarkable. Hysterectomy. No adnexal mass lesion. Phleboliths of the pelvis. Exten sive calcified plaque the abdominal aorta. Fusiform aneurysmal infrarenal abdominal aortic aneurysm, 3.0 x 2.6 cm. There is no adenopathy. No bowel obstruction or bowel wall thickening. Colonic diverticulosis. Air-fluid levels of the ascend ing and transverse colon. Visualized appendix is noninflamed. No ascites or mesenteric inflammation. No acute fracture. Degenerative changes of the spine, pelvis and hips. IMPRESSION: 1. No bowel obstruction or bowel wall thickening. 2. Patchy bibasilar groundglass densities are compatible with infectious or inflammatory pneumonitis. Tree-in-bud nodules of the left lung base suggest an associated infectious or inflammatory bronchiol itis. 3. Nonobstructing right nephrolithiasis. No ureteral calculi or shifted uropathy. 4. Indeterminate 2.5 cm intermediate attenuating lesion of the inferior pole left kidney. This could be correlated with a nonemergent follow-up renal ultrasound. 5. 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 6. Additional findings as above. ACT 112: Negative or not required by law. The above report was generated using voice recognition software. It may contain grammatical, syntax o r spelling errors. Electronically signed by: Dave Claros M.D. 08/16/2020 2:24 PM
--- NOTE | 2020-08-16 14:38 | History & Physical Report ---
Date of Service August 16, 2020 Assessment & Plan (1) MARIELLA (acute kidney injury): (2) Diarrhea: (3) Nausea: (4) CKD (chronic kidney disease), stage III: Patient is a 75 yo female recently admitted for an extended stay to [facility] for COVID-19 infection and hypoxia. She was discharged to home yesterday. She presented today via EMS with new onset MARIELLA, weakness, and lethargy. Admit to telemetry for continued monitoring and management. She has had nausea, abdominal pain, and diarrhea since discharge. No formed stools Concern for hospital acquired infection. Check C Diff, Stool culture, Giardia Continue fluids NSS 100 ml/hr x 2 bags. Monitor electrolytes and volume status closely Repeat CMP, CBC tomorrow AM Zofran PRN nausea. Advance diet as tolerated. Hold indapamide, lisinopril, clonidine pending improvement in renal function. Monitor BP closely. Added PRN clonidine for systolic BP >170 (5) COVID-19: (6) COPD, group C, by GOLD 2017 classification: (7) Respiratory failure with hypoxia: Patient diagnosed with COVID-19 infection on 07/28. Continue isolation precautions Continue supplemental O2 to maintain SaO2 >92% Patient is stable from a respiratory standpoint today otherwise, but with continued desaturation and EKG changes, will check Perfusion study of lungs in the AM. Cannot do CTA Chest due to renal function. Consider addition of Duoneb if needed. (8) T wave inversion in EKG: (9) Elevated troponin: (10) History of implantable cardioverter-defibrillator (ICD) placement: (11) CAD (coronary artery disease): (12) Ischemic cardiomyopathy: (13) HTN (hypertension): (14) Hyperlipidemia: Patient has an extensive cardiac history. Upon presentation, she was noted to have elevation of troponin and new T wave inversions in anterior leads. Elevated troponin may be NSTEMI vs demand ischemia Trend troponin Repeat EKG in AM and PRN chest pain Nitro PRN chest pain, but patient currently has no pain. Cardiology consultation for input as well Echo NPO after midnight pending cardiac eval. Heart healthy diet otherwise Continue ASA 81 mg, statin Repeat Lipids AM (15) GERD (gastroesophageal reflux disease): Continue Protonix (16) DVT prophylaxis: Heparin Q12h History of Present Illness Chief Complaint: MARIELLA, diarrhea, weakness Primary Care Provider: Roman Ennis MD Patient is a 75 yo female with PMHx including COPD, group C, HTN, CAD with history of WI and stenting, ischemic cardiomyopathy, Biventricular pacer/ICD in place, CKD III, chronic migraines, and anxiety who presented to the ED via EMS for concern of SOB and lethargy starting this AM. I spoke with the patient on the phone to receive historical information. Patient was admitted to [facility] with COVID-19 infection from 07/28 (initial dx) until yesterday 08/15/20. [facility] records available for review are limited, but upon review of initial labs/H&P, patient was treated with Remdesivir and Dexamethasone. She was also tx with Ceftriaxone for Klebsiella UTI. She was ultimately d/c'd home with 2L/min of O2 via nasal cannula continuously. The patient got home last night and was feeling run down, but over night and into this morning, she started to feel worse. She had severe nausea overnight with multiple episodes of diarrhea. No blood in stool. No formed stool since discharge though. She does have pain in her epigastric region today which is moderate/severe. She does take PPI daily chronically. She has moderate continued SOB but no worse from hospitalization previously. No chest pain. She does have extensive cardiac history with CAD, hx WI, hx apical thrombus, Biventricular Pacer/ICD placement, and ischemic cardiomyopathy. Upon presentation to the ED today, she had new anterior T wave inversions on EKG and elevated troponin which was new. Today's EKG and prior EKG reviewed today by me. Repeat COVID testing here was also +. WBC count mildly elevated. UA clean. DDimer 2310. Creatinine up to 1.7 from baseline of 1.1 outpatient. She was mildly hypoxic upon arrival on room air, down to 89%. She is currently on 2 L/min via nasal cannula and saturating well. CXR showed no acute process. CT abd/pelvis without contrast showed patchy grounglass opacities in the B/L LL consistent with possible infectious process. Allergies Allergy/AdvReac Type Severity Reaction Status Date / Time NSAIDS (Non-Steroidal Allergy Severe GI ISSUES Unverified 08/16/20 12:39 Anti-Inflamma isosorbide Allergy Unknown VOMIT/HEADA Unverified 08/16/20 12:39 CARLOS Gxdkplh-Dpx-Lfx Reductase Allergy Unknown LIVER Unverified 08/16/20 12:39 Inhibitor FUNCTION ELEVATES tramadol Allergy Unknown VOMITING Unverified 08/16/20 12:39 Home Medications Medication Instructions Recorded Confirmed Type aspirin [Aspirin Low-Strength] 81 mg PO DAILY #0 03/30/17 08/16/20 History clonidine HCl 0.1 mg PO BID #0 tab 03/30/17 08/16/20 History nitroglycerin 0.4 mg SUBLINGUAL UD #0 btl 03/30/17 08/16/20 History pantoprazole 40 mg PO DAILY #30 tab 03/30/17 08/16/20 History albuterol sulfate 2 puff INHALATION Q4H #0 07/27/17 08/16/20 History lisinopril 20 mg PO BID #0 07/27/17 08/16/20 History metoprolol succinate 100 mg PO DAILY #0 tab 07/27/17 08/16/20 History hydroxyzine HCl 25 mg PO TID PRN 08/16/20 08/16/20 History indapamide 2.5 mg PO DAILY 08/16/20 08/16/20 History lorazepam 0.5 mg PO UD PRN 08/16/20 08/16/20 History oxycodone 5 mg PO QID PRN 08/16/20 08/16/20 History rosuvastatin 5 mg PO DAILY 08/16/20 08/16/20 History trazodone 25 mg PO HS 08/16/20 08/16/20 History umeclidinium-vilanterol [Anoro 1 inh INHALATION DAILY 08/16/20 08/16/20 History Ellipta] venlafaxine 75 mg PO HS 08/16/20 08/16/20 History Past Med/Surg History Medical History (Updated 08/16/20 @ 18:19 by Herbert Jarrell M.D.) Acute anterior wall WI Anxiety CAD (coronary artery disease) "[place] 2006. S/P PCI/Stent RCA" Chronic hepatitis C without hepatic coma CKD (chronic kidney disease), stage III COPD, group C, by GOLD 2017 classification Elevated troponin GERD (gastroesophageal reflux disease) H/O cardiac pacemaker HTN (hypertension) Hyperlipidemia Hypoxia Ischemic cardiomyopathy LBBB (left bundle branch block) Migraine OA (osteoarthritis) Surgical History (Updated 08/16/20 @ 15:11 by Erna Dunn PA-C) H/O release of tendon H/O: hysterectomy History of carpal tunnel surgery History of implantable cardioverter-defibrillator (ICD) placement Hx of cataract surgery S/P cardiac cath S/P cholecystectomy Family History (Updated 08/16/20 @ 15:12 by Erna Dunn PA-C) Father Prostate cancer Heart disease Thyroid disorder Mother Cancer Cervical Coronary heart disease s/p CABG Diabetes Social History (Updated 08/16/20 @ 15:12 by Erna Dunn PA-C) Smoking Status: Former smoker Tobacco Type: Cigarettes packs per day: 0.5; Years Smoked: 30; Second Hand Exposure: No; Do You Dip or Chew Tobacco: No; Tobacco Cessation Education Requested by Patient: No Hx Alcohol Use: No Hx Substance Use: No Preferred Language: Kinyarwanda Communication Ability: Effective Ecology Teacher Required: No Beliefs That Will Affect Care: None Current Living Situation: Family Other Information That Helps Us Care for You: No Feels Safe at Home: Yes Safety Concerns: Feels Safe At This Time Assistive Devices: Denture - Upper and Denture - Lower Review of Systems Review of Systems: All systems reviewed & are unremarkable except as noted in HPI & below Physical Exam Physical Exam: Refer to supervising physician exam. Results & Data Results & Data ([facility]) Vital Signs (Past 12 Hours) Vital Signs Temp Pulse Pulse Resp BP BP Pulse Ox 08/16/20 14:15 66 21 148/74 H 95 08/16/20 14:13 66 23 94 08/16/20 14:00 55 L 20 119/80 97 08/16/20 13:32 55 L 23 97 08/16/20 13:31 58 L 23 119/83 97 08/16/20 13:30 60 16 97 08/16/20 13:01 59 L 24 128/56 L 98 08/16/20 13:00 58 L 17 99 08/16/20 12:30 57 L 17 98 08/16/20 12:01 57 L 21 96 08/16/20 12:00 56 L 19 104/57 L 96 08/16/20 11:38 71 16 94 08/16/20 11:33 70 20 115/69 93 08/16/20 11:27 36.6 C 72 72 18 115/69 111/88 89 L Laboratory Results Laboratory Results - last 24 hr 08/16/20 08/16/20 08/16/20 11:43 11:43 11:52 WBC RBC Hgb Hct MCV MCH MCHC RDW Std Deviation RDW Coeff of Julia Plt Count MPV Immature Gran % (Auto) Neut % (Auto) Lymph % (Auto) [place] % (Auto) Eos % (Auto) Baso % (Auto) Neut # (Auto) Lymph # (Auto) [place] # (Auto) Eos # (Auto) Baso # (Auto) Immature Gran # (Auto) PT INR D-Dimer Sodium Potassium Chloride Carbon Dioxide Anion Gap BUN Creatinine Est Cr Clr Drug Dosing Est GFR ( Amer) Est GFR (Non-Af Amer) BUN/Creatinine Ratio Glucose Lactate Calcium Magnesium Total Bilirubin AST ALT Alkaline Phosphatase Troponin I C-Reactive Protein Total Protein Albumin Globulin Albumin/Globulin Ratio Lipase TSH Urine Color Yellow Urine Appearance Clear Urine pH 5.5 Ur Specific [place] 1.022 Urine Protein 2+ H Urine Glucose (UA) Negative Urine Ketones Negative Urine Blood Negative Urine Nitrite Negative Urine Bilirubin Negative Urine Urobilinogen Negative Ur Leukocyte Esterase Negative Urine WBC (Auto) 1-5 Urine RBC (Auto) 0-4 U Hyaline Cast (Auto) 5-10 H U Epithel Cells (Auto) >30 H Urine Bacteria (Auto) Negative Ur Renal Epithelial Cell Not Reportable COVID-19 Eval Order CovFluRsv at [facility] SARS-CoV-2 (PCR) POSITIVE A* Influenza Type A (PCR) Negative Influenza Type B (PCR) Negative RSV (RT-PCR) Negative 08/16/20 08/16/20 08/16/20 12:31 12:31 12:31 WBC 11.40 H RBC 4.54 Hgb 15.3 Hct 42.4 MCV 93.4 MCH 33.7 MCHC 36.1 H RDW Std Deviation 45.4 RDW Coeff of Julia 13.2 Plt Count 166 MPV 11.8 H Immature Gran % (Auto) 0.7 Neut % (Auto) 82.8 Lymph % (Auto) 11.9 [place] % (Auto) 4.5 Eos % (Auto) 0.0 Baso % (Auto) 0.1 Neut # (Auto) 9.44 H Lymph # (Auto) 1.36 [place] # (Auto) 0.51 Eos # (Auto) 0.00 Baso # (Auto) 0.01 Immature Gran # (Auto) 0.08 H PT 11.7 INR 1.2 H D-Dimer 2310 H* Sodium 132 L Potassium 4.1 Chloride 98 Carbon Dioxide 27 Anion Gap 7.0 BUN 73 H Creatinine 1.76 H Est Cr Clr Drug Dosing 26.3 Est GFR ( Amer) 32.7 Est GFR (Non-Af Amer) 28.2 BUN/Creatinine Ratio 41.6 H Glucose 156 H Lactate Calcium 8.3 L Magnesium 2.5 H Total Bilirubin 0.6 AST 19 ALT 24 Alkaline Phosphatase 50 Troponin I 0.090 H* C-Reactive Protein 4.03 H Total Protein 7.0 Albumin 2.7 L Globulin 4.3 H Albumin/Globulin Ratio 0.6 L Lipase 283 TSH 0.478 Urine Color Urine Appearance Urine pH Ur Specific [place] Urine Protein Urine Glucose (UA) Urine Ketones Urine Blood Urine Nitrite Urine Bilirubin Urine Urobilinogen Ur Leukocyte Esterase Urine WBC (Auto) Urine RBC (Auto) U Hyaline Cast (Auto) U Epithel Cells (Auto) Urine Bacteria (Auto) Ur Renal Epithelial Cell COVID-19 Eval Order SARS-CoV-2 (PCR) Influenza Type A (PCR) Influenza Type B (PCR) RSV (RT-PCR) 08/16/20 12:31 WBC RBC Hgb Hct MCV MCH MCHC RDW Std Deviation RDW Coeff of Julia Plt Count MPV Immature Gran % (Auto) Neut % (Auto) Lymph % (Auto) [place] % (Auto) Eos % (Auto) Baso % (Auto) Neut # (Auto) Lymph # (Auto) [place] # (Auto) Eos # (Auto) Baso # (Auto) Immature Gran # (Auto) PT INR D-Dimer Sodium Potassium Chloride Carbon Dioxide Anion Gap BUN Creatinine Est Cr Clr Drug Dosing Est GFR ( Amer) Est GFR (Non-Af Amer) BUN/Creatinine Ratio Glucose Lactate 1.6 Calcium Magnesium Total Bilirubin AST ALT Alkaline Phosphatase Troponin I C-Reactive Protein Total Protein Albumin Globulin Albumin/Globulin Ratio Lipase TSH Urine Color Urine Appearance Urine pH Ur Specific [place] Urine Protein Urine Glucose (UA) Urine Ketones Urine Blood Urine Nitrite Urine Bilirubin Urine Urobilinogen Ur Leukocyte Esterase Urine WBC (Auto) Urine RBC (Auto) U Hyaline Cast (Auto) U Epithel Cells (Auto) Urine Bacteria (Auto) Ur Renal Epithelial Cell COVID-19 Eval Order SARS-CoV-2 (PCR) Influenza Type A (PCR) Influenza Type B (PCR) RSV (RT-PCR) Diagnostic Findings CXR: IMPRESSION: 1. No acute process. 2. Ill-defined 12 mm nodular opacity of the left midlung is likely secondary to summation density. A pulmonary nodule is considered less likely. Abd/Pelvis CT: IMPRESSION: 1. No bowel obstruction or bowel wall thickening. 2. Patchy bibasilar groundglass densities are compatible with infectious or inflammatory pneumonitis. Tree-in-bud nodules of the left lung base suggest an associated infectious or inflammatory bronchiolitis. 3. Nonobstructing right nephrolithiasis. No ureteral calculi or shifted uropathy. 4. Indeterminate 2.5 cm intermediate attenuating lesion of the inferior pole left kidney. This could be correlated with a nonemergent follow-up renal ultrasound. 5. 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 6. Additional findings as above. Code Status & VTE Plan VTE Prophylaxis Plan VTE Prophylaxis will be ordered: Yes Supervising Physician Co-Signing Physician Notes Patient is a 75-year-old female with history of COPD, hepatitis C, hypertension, coronary artery disease, CKD and other medical problems presents with history of shortness of breath, lethargy, nausea, diarrhea. She also states having epigastric abdominal pain. She was discharged yesterday from [facility] after being treated for acute respiratory failure with hypoxia secondary to Covid pneumonia and Klebsiella UTI. Patient was discharged home on supplemental oxygen. Please review HPI for complete details of presentation. She was noted to have elevated D-dimer, MARIELLA, hyponatremia and minimal elevation in troponins. T wave inversion noted on anterior leads on EKG. Chest x-ray showed No acute process. CT abdomen findings suggestive of bibasilar pneumonitis, bronchiolitis, nonobstructive nephrolithiasis, left kidney lesion and infrarenal abdominal aortic aneurysm. Physical Exam: Vitals signs as noted above General Appearance:Moderately built and nourished, no apparent distress Head: normocephalic, Atraumatic Eyes: normal inspection, EOMI Neck: supple, Trachea midline Respiratory/Chest: Decreased breath sounds, CTA, No accessory muscle use Chest+Pacemaker Cardiovascular: S1, S2, No murmur Abdomen/GI:Soft, Epigastric tender, Bowel sounds present Extremities/Musculoskelatal:normal inspection, no edema Neurologic/Psych:AAOX3, grossly no focal neurological deficits Skin: normal color, warm MARIELLA on CKD stage III Prerenal secondary to GI losses Hold home diuretics, lisinopril Avoid nephrotoxic agents as able Monitor renal function Continue IV fluids Nausea, diarrhea, epigastric pain CT abdomen as above Check lipase levels Check stool studies Symptoms likely secondary to Covid infection, steroid use Continue PPI, add Pepcid We will consider GI eval if needed EKG changes Mild troponin elevation R/O NSTEMI Likely demand ischemia secondary to dehydration, renal insufficiency Check resting echo Cardiology consulted Repeat EKG in AM Hyponatremia Likely secondary to dehydration Continue efforts Monitor sodium level Respiratory failure with hypoxia Secondary to recent Covid infection Continue supplemental oxygen as needed Completed treatment for Covid at [facility] I personally reviewed the record. Patient is interviewed and examined at bedside. Patient's care is coordinated with Erna Dunn PA-C. Please refer to the documentation above for details of patient's presentation and for discussion of other issues.
[2020-08-16] MEDS ORDERED: ONDANSETRON INJ 2 MG/ML 2 ML VIAL IV PRN (14:57)
[2020-08-16] MEDS ORDERED: ACETAMINOPHEN 325 MG TAB PO PRN (15:03)
[2020-08-16] MEDS ORDERED: cloNIDine HCL 0.1 MG TAB PO PRN (15:03)
[2020-08-16] MEDS ORDERED: NITROGLYCERIN SL 0.4 MG/TAB TAB SL PRN (15:03)
[2020-08-16] MEDS ORDERED: LORazepam 0.5 MG TAB PO PRN (15:03)
[2020-08-16] MEDS ORDERED: hydrOXYzine HCl 25 MG TAB PO PRN (15:03)
--- NOTE | 2020-08-16 15:17 | Electrocardiogram Report ---
Test Reason : Blood Pressure : / mmHG Vent. Rate : 070 BPM Atrial Rate : 070 BPM P-R Int : 128 ms QRS Dur : 138 ms QT Int : 442 ms P-R-T Axes : 071 -44 077 degrees QTc Int : 477 ms Atrial-sensed ventricular-paced rhythm Abnormal ECG When compared with ECG of 28-JUL-2017 07:29, Electronic ventricular pacemaker has replaced Sinus rhythm Confirmed by Rudolph Lerma ([id number]) on 08/16/2020 3:17:23 PM Referred By: REFERRED SELF Confirmed By:Rudolph Lerma
[2020-08-16] MEDS: SODIUM CHLORIDE 0.9% 1000ML 1,000 ML IV SCH (15:36)
[2020-08-16] MEDS ORDERED: ALUMINUM/MAGNESIUM/SIMETH (MAALOX MAX) 30 ML UDC PO PRN (16:04)
[2020-08-16] MEDS: FAMOTIDINE 10 MG TABLET PO SCH ×2 (17:39→20:11)
[2020-08-16] MEDS: VENLAFAXINE HCL XR 75 MG CAPXR PO SCH (20:12)
[2020-08-16] MEDS: traZODone HCL 50 MG TAB PO SCH (20:12)
[2020-08-16] MEDS: HEPARIN SOD 5,000 UNIT/0.5 ML VIAL SQ SCH (20:12)
[2020-08-16] MEDS: oxyCODONE HCL IR 5 MG TAB (IMMEDIATE RELEASE) PO PRN (20:45)
[2020-08-17 06:10] LABS: Hemoglobin 14.4 g/dL (12.0-16.0); Mean Corpuscular Hemoglobin 32.8 pg (25-34); Mean Corpuscular Hgb Conc 35.1 g/dL (32-36); Mean Corpuscular Volume 93.4 fL (80-100); Mean Platelet Volume 11.5 fL (7.4-10.4); Platelet Count 159 K/uL (130-400); RDW Coefficient of Variation 13.1 % (11.5-14.5); RDW Standard Deviation 45.4 fL (36.4-46.3); Red Blood Count 4.39 M/uL (4.2-5.4); White Blood Count 9.03 K/uL (4.8-10.8)
[2020-08-17 06:32] LABS: Estimated Average Glucose 157 mg/dl; Hemoglobin A1C 7.1 % (4.5-5.6)
[2020-08-17 06:41] LABS: Albumin Level 2.7 gm/dl (3.4-5.0); BUN Creatinine Ratio 44.8 (10-20); Calcium 8.6 mg/dl (8.5-10.1); Creatinine Clr Calc Pharmacy 38.2 ml/min; Est GFR (African American) 65.5; Est GFR (Non-African American) 56.5; Potassium 3.9 mmol/L (3.5-5.1)
[2020-08-17 06:42] LABS: Albumin Globulin Ratio 0.7 (0.9-2); Bilirubin,Total 0.7 mg/dl (0.2-1); Globulin 3.7 gm/dl (2.5-4.0); Total Protein 6.4 gm/dl (6.4-8.2)
--- NOTE | 2020-08-17 07:04 | Ultrasound Report ---
BILATERAL LOWER EXTREMITY VENOUS DOPPLER CLINICAL HISTORY: Elevated D dimer, R/O DVT COMPARISON STUDY: Right lower extremity venous Doppler ultrasound November 24, 2014. TECHNIQUE: Sonography of the deep venous system of the bilateral lower extremities was performed. Co mpression and augmentation were evaluated. FINDINGS: The bilateral common femoral, superficial femoral and popliteal veins were compressible. A ugmentation was normal. Note is made of superficial thrombus within the proximal right greater saphen ous vein that extends for 3.8 cm. IMPRESSION: 1. Superficial thrombus within the proximal right greater saphenous vein that extends for 3.8 cm, les s than 5 cm from the confluence with the common femoral vein. 2. No evidence of deep venous thrombus within the bilateral lower extremities. ACT 112: Negative or not required by law. Electronically signed by: Korey Cobb M.D. 08/17/2020 7:03 AM
[2020-08-17] MEDS: oxyCODONE HCL IR 5 MG TAB (IMMEDIATE RELEASE) PO PRN ×3 (08:54→19:41)
[2020-08-17] MEDS: UMECLIDINIUM/VILANTEROL 62.5/25MCG 7 PUFFS/INHALER INH SCH (09:09)
[2020-08-17] MEDS: PANTOprazole 40 MG TAB PO SCH (09:10)
[2020-08-17] MEDS: METOPROLOL SUCC 50MG EXT REL TAB PO SCH (09:10)
[2020-08-17] MEDS: ASPIRIN 81 MG ECTAB PO SCH (09:10)
[2020-08-17] MEDS: ROSUVASTATIN CALCIUM 5 MG TAB PO SCH (09:10)
[2020-08-17] MEDS: FAMOTIDINE 10 MG TABLET PO SCH ×2 (09:10→21:25)
[2020-08-17] MEDS: HEPARIN SOD 5,000 UNIT/0.5 ML VIAL SQ SCH (09:18)
--- NOTE | 2020-08-17 11:17 | Cardiology Consultation ---
Date of Consultation August 17, 2020 Assessment & Plan (1) Elevated troponin: Patient with longstanding ischemic CM. No symptoms suggestive of angina. I believe her shortness of breath is explained by her SARS-Cov-2 pneumonia illness with ongoing hypoxia. The T wave inversions in EKG leads V2, V3 are new compared to historical tracings as an outpatient, but are not helpful in setting of chronically V-paced rhythm. Her troponin I is likely minimally elevated (0.09-->0.085--> 0.065 ) related to myocardial strain from her acute illness. I have cancelled the echocardiogram order , as I do not think it would change her management at present. I do not think symptoms are suggestive of COVID myocarditis. Creatinine level of 1.7 down to 0.99 this am with IV fluid. (2) COVID-19: Noted superficial phlebitis on LE venous duplex. Given COVID illness, and risk of hypercoagulability, stasis as she recovers, would consider short term course of anticoagulation with lovenox or Eliquis. (3) History of implantable cardioverter-defibrillator (ICD) placement: Last ICD interrogation was on 06/05/20, at which time 3 months of generator longevity noted. Has already seen EP as outpatient with regards to planning generator change when she reaches [facility]. Keep plans for outpatient interrogation scheduled for 08/25. History of Present Illness Attending Physician: Lam Freed MD History of Present Illness Radha Tong is a 75 year old male seen in cardiology consultation per the [facility] of Er[facility] Dunn [facility] for the evaluation of abnormal EKG and mild troponin elevation. Patient has a history of complex cardiac disease as noted below. She had recently been hospitalized at [facility] where she was treated with dexamethasone and Remdesivir for SARS-Cov-2 pneumonia. She presented to this institution one day after discharge for evaluation of shortness of breath and nausea. Patient seen personally in negative pressure room 214. She describes feeling much improved. She is on 2 L nasal cannula oxygen with pulse oximetry of 91% , improved from 89%. She denies any chest pain , with no symptoms similar to her prior angina. PAST CARDIAC HISTORY: History of ischemic cardiomyopathy, past inferoposterior myocardial infarction in August 2006 status post PCI of the RCA, PCI in December 2006 for recurrent symptoms post PCI with 4 BMS, past apical thrombus, chronic left bundle branch block, status post November 24, 2008 cardiac resynchronization defibrillator implantation with biventricular defibrillator pulse generator replacement on 08/06/2013 complicated by the right ventricular high voltage pin not engaged into the header s/p revision on 08/06/2013. Additional problems include hypertension, dyslipidemia, prior tobacco abuse with continued exposure to secondhand smoke, hepatitis C, migraine headaches, chronic back pain, and osteoarthritis. Outpatient echocardiogram 01/14/20:Calculated LV ejection Fraction = 52% (three dimensional volumes). There is a moderate sized septal, inferior, and posterior wall motion abnormality with hypokinesis of the segments. The septal motion is abnormal consistent with right ventricular pacemaker. Mild aortic valve sclerosis is present. Compared to prior study of 03/09/2017, there is no significant change. Nuclear stress test 01/14/20: Lexiscan nuclear cardiac stress test is abnormal revealing myocardial scar in the inferior and inferoseptalwall(s) without ischemia. Allergies Allergy/AdvReac Type Severity Reaction Status Date / Time NSAIDS (Non-Steroidal Allergy Severe GI ISSUES Unverified 08/16/20 12:39 Anti-Inflamma isosorbide Allergy Unknown VOMIT/HEADA Unverified 08/16/20 12:39 CARLOS Rpgkega-Oox-Knl Reductase Allergy Unknown LIVER Unverified 08/16/20 12:39 Inhibitor FUNCTION ELEVATES tramadol Allergy Unknown VOMITING Unverified 08/16/20 12:39 Home Medications Medication Instructions Recorded Confirmed Type aspirin [Aspirin Low-Strength] 81 mg PO DAILY #0 03/30/17 08/16/20 History clonidine HCl 0.1 mg PO BID #0 tab 03/30/17 08/16/20 History nitroglycerin 0.4 mg SUBLINGUAL UD #0 btl 03/30/17 08/16/20 History pantoprazole 40 mg PO DAILY #30 tab 03/30/17 08/16/20 History albuterol sulfate 2 puff INHALATION Q4H #0 07/27/17 08/16/20 History lisinopril 20 mg PO BID #0 07/27/17 08/16/20 History metoprolol succinate 100 mg PO DAILY #0 tab 07/27/17 08/16/20 History hydroxyzine HCl 25 mg PO TID PRN 08/16/20 08/16/20 History indapamide 2.5 mg PO DAILY 08/16/20 08/16/20 History lorazepam 0.5 mg PO UD PRN 08/16/20 08/16/20 History oxycodone 5 mg PO QID PRN 08/16/20 08/16/20 History rosuvastatin 5 mg PO DAILY 08/16/20 08/16/20 History trazodone 25 mg PO HS 08/16/20 08/16/20 History umeclidinium-vilanterol [Anoro 1 inh INHALATION DAILY 08/16/20 08/16/20 History Ellipta] venlafaxine 75 mg PO HS 08/16/20 08/16/20 History Patient History Medical History Acute anterior wall GA Anxiety CAD (coronary artery disease) "[place] 2006. S/P PCI/Stent RCA" Chronic hepatitis C without hepatic coma CKD (chronic kidney disease), stage III COPD, group C, by GOLD 2017 classification Elevated troponin GERD (gastroesophageal reflux disease) H/O cardiac pacemaker HTN (hypertension) Hyperlipidemia Hypoxia Ischemic cardiomyopathy LBBB (left bundle branch block) Migraine OA (osteoarthritis) Surgical History H/O release of tendon H/O: hysterectomy History of carpal tunnel surgery History of implantable cardioverter-defibrillator (ICD) placement Hx of cataract surgery S/P cardiac cath S/P cholecystectomy Family History Father Prostate cancer Heart disease Thyroid disorder Mother Cancer Cervical Coronary heart disease s/p CABG Diabetes Social History Smoking Status: Former smoker Tobacco Type: Cigarettes packs per day: 0.5; Years Smoked: 30; Second Hand Exposure: No; Do You Dip or Chew Tobacco: No; Tobacco Cessation Education Requested by Patient: No Hx Alcohol Use: No Hx Substance Use: No Preferred Language: Yakut Communication Ability: Effective Spring Tacker Required: No Beliefs That Will Affect Care: None Current Living Situation: Family Other Information That Helps Us Care for You: No Feels Safe at Home: Yes Safety Concerns: Feels Safe At This Time Assistive Devices: None Review of Systems Review of Systems: All systems reviewed & are unremarkable except as noted in HPI & below Physical Exam Physical Exam: Temp Pulse Resp BP Pulse Ox 36.8 C 70 19 111/52 L 91 08/17/20 11:04 08/17/20 11:04 08/17/20 11:04 08/17/20 11:04 08/17/20 11:04 Patient in no acute distress. In good spirits. Mental status appropriate Pulm : no conversational dyspnea Telemetry: SR, Ventricular paced rythm in the 60s to 70s. Results & Data ([facility]) Vital Signs (Past 12 Hours) Vital Signs Temp Pulse Pulse Resp BP Pulse Ox 08/17/20 11:04 36.8 C 70 19 111/52 L 91 08/17/20 07:07 36.8 C 73 19 120/70 94 08/17/20 03:00 36.6 C 62 19 100/60 92 08/17/20 00:00 79 Laboratory Results Cardiac Enzymes 08/16/20 08/16/20 08/16/20 Range/Units 12:31 16:34 21:34 AST 19 (15-37) U/L Troponin I 0.090 H* 0.085 H* 0.065 H* (0-0.045) ng/ml 08/17/20 Range/Units 05:33 AST 14 L (15-37) U/L Troponin I (0-0.045) ng/ml Coagulation 08/16/20 Range/Units 12:31 PT 11.7 (9.0-12.0) Seconds Lipids 08/17/20 Range/Units 05:33 Triglycerides 179 H (0-150) mg/dl Cholesterol 153 (0-200) mg/dl HDL Cholesterol 38 mg/dl Cholesterol/HDL Ratio 4 CBC 08/16/20 08/17/20 Range/Units 12:31 05:33 WBC 11.40 H 9.03 (4.8-10.8) K/uL RBC 4.54 4.39 (4.2-5.4) M/uL Hgb 15.3 14.4 (12.0-16.0) g/dL Hct 42.4 41.0 (37-47) % Plt Count 166 159 (130-400) K/uL Neut # (Auto) 9.44 H (1.4-6.5) K/uL Lymph # (Auto) 1.36 (1.2-3.4) K/uL Burke # (Auto) 0.51 (0.11-0.59) K/uL Eos # (Auto) 0.00 (0-0.5) K/uL Baso # (Auto) 0.01 (0-0.2) K/uL Comprehensive Metabolic Panel 08/16/20 08/17/20 Range/Units 12:31 05:33 Sodium 132 L 131 L (136-145) mmol/L Potassium 4.1 3.9 (3.5-5.1) mmol/L Chloride 98 100 (98-107) mmol/L Carbon Dioxide 27 25 (21-32) mmol/L BUN 73 H 44 H (7-18) mg/dl Creatinine 1.76 H 0.99 D (0.6-1.2) mg/dl Glucose 156 H 102 H (70-99) mg/dl Calcium 8.3 L 8.6 (8.5-10.1) mg/dl AST 19 14 L (15-37) U/L ALT 24 18 (12-78) U/L Alkaline Phosphatase 50 41 L (45-117) U/L Total Protein 7.0 6.4 (6.4-8.2) gm/dl Albumin 2.7 L 2.7 L (3.4-5.0) gm/dl Intake and Output 08/16/20 08/17/20 08/17/20 22:59 06:59 14:59 Intake Total 350 / 1650 1000 / 1000 Balance 350 / 1650 1000 / 1000 Intake: IV 1000 / 1000 Nss 1000ML 1,000 ml @ 100 mls/ 1000 / 1000 hr IV .Q10H LISHA Rx#:[id number] Oral 350 / 350 Other: # Unmeasured Voids 1 Weight 56.9 kg 53.206 kg Weight Measurement Method Built in Bedscale Standing Scale Diagnostic Findings EKG tracing from this am revealed SR, with atrial sensed , ventricular paced QRS complexes. T wave inversions in the precordial leads V2, V3. Unchanged compared to 08/16. LE venous duplex: summary of radiology report 1. Superficial thrombus within the proximal right greater saphenous vein that extends for 3.8 cm, less than 5 cm from the confluence with the common femoral vein. 2. No evidence of deep venous thrombus within the bilateral lower extremities.
[2020-08-17] MEDS ORDERED: CARBOHYDRATES FOR HYPOGLYCEMIA PO PRN (12:20)
[2020-08-17] MEDS ORDERED: GLUCAGON FOR INJ 1 MG VIAL SQ PRN (12:20)
[2020-08-17] MEDS ORDERED: DEXTROSE 50% 50 ML SYRINGE IV PRN (12:20)
[2020-08-17] MEDS ORDERED: GLUCOSE 40% GEL 15 GM TUBE PO PRN (12:20)
[2020-08-17] MEDS ORDERED: GLUCOSE 10 TABS/TUBE PO PRN (12:20)
--- NOTE | 2020-08-17 12:38 | Electrocardiogram Report ---
Test Reason : Blood Pressure : / mmHG Vent. Rate : 071 BPM Atrial Rate : 071 BPM P-R Int : 140 ms QRS Dur : 136 ms QT Int : 424 ms P-R-T Axes : 062 -48 088 degrees QTc Int : 460 ms Atrial-sensed ventricular-paced rhythm Biventricular pacemaker detected Abnormal ECG When compared with ECG of 16-AUG-2020 11:36, No significant change was found Confirmed by Rudolph Lerma ([id number]) on 08/17/2020 12:37:58 PM Referred By: REFERRED SELF Confirmed By:Rudolph Lerma
[2020-08-17] MEDS: APIXABAN 5 MG TABLET PO SCH ×2 (13:53→21:25)
[2020-08-17] MEDS: INSULIN ASPART 100 UNITS/ML 3 ML PEN SC SCH ×3 (13:54→21:33)
[2020-08-17] MEDS: SODIUM CHLORIDE 0.9% 1000ML 1,000 ML IV SCH (15:24)
--- NOTE | 2020-08-17 16:56 | Hospitalist Progress Note ---
Date of Service August 17, 2020 Assessment & Plan (1) MAIRELLA (acute kidney injury): (2) Diarrhea: (3) Nausea: (4) CKD (chronic kidney disease), stage III: MARIELLA on CKD stage III Prerenal secondary to GI losses Cr:1.76>0.99 Hold home diuretics, lisinopril Avoid nephrotoxic agents as able Received IV fluids Continue to monitor renal function If renal function remains stable, plan to resume lisinopril tomorrow Nausea, diarrhea, epigastric pain --CT abdomen:No bowel obstruction or bowel wall thickening. Patchy bibasilar groundglass densities are compatible with infectious or inflammatory pneumonitis. Tree-in-bud nodules of the left lung base suggest an associated infectious or inflammatory bronchiolitis. Nonobstructing right nephrolithiasis. No ureteral calculi or shifted uropathy. Indeterminate 2.5 cm intermediate attenuating lesion of the inferior pole left kidney. This could be correlated with a nonemergent follow-up renal ultrasound. 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 -Normal lipase levels We will obtain stool studies if diarrhea recurs Continue PPI Diarrhea resolved Tolerating regular diet DM II H/O prediabetes New diagnosis HbA1C:7.1 clinical systems educator consulted Continue insulin therapy while hospitalized Monitor BGs Superficial thrombophlebitis -Venous Doppler:Superficial thrombus within the proximal right greater saphenous vein that extends for 3.8 cm, less than 5 cm from the confluence with the common femoral vein. No evidence of deep venous thrombus within the bilateral lower extremities. -Started on Eliquis for DVT prophylaxis -Advised to repeat Dopplers in 2 weeks as outpatient Type II NH likely due to COVID, MARIELLA H/O CAD EKG changes Noted Mild troponin elevation Appreciate Cardiology Input Continue home medication Hyponatremia Likely secondary to dehydration Received IV fluids Monitor sodium level Respiratory failure with hypoxia Secondary to recent Covid infection Continue supplemental oxygen as needed Completed treatment for Covid at [facility] Elevated D-dimer Likely due to COVID Infection Venous Doppler as above Perfusion Scan pending (5) COVID-19: (6) COPD, group C, by GOLD 2017 classification: (7) Respiratory failure with hypoxia: management as above (8) T wave inversion in EKG: (9) Elevated troponin: (10) History of implantable cardioverter-defibrillator (ICD) placement: (11) CAD (coronary artery disease): (12) Ischemic cardiomyopathy: (13) HTN (hypertension): (14) Hyperlipidemia: On statin (15) GERD (gastroesophageal reflux disease): Continue Protonix (16) DVT prophylaxis: Eliquis Code Status Full Code Admission and Anticipated Discharge Date Admission Date: August 16, 2020 Subjective Patient is seen and examined at bedside States feeling a lot better today Abdominal epigastric pain much improved No diarrhea today Reports minimal cough with no expectoration Denies any shortness of breath Offers no other complaints Discussed with cardiology today Review of Systems Review of Systems: All systems reviewed & are unremarkable except as noted in HPI & below Physical Exam Physical Exam: Physical Exam: Vitals signs as noted above General Appearance:Moderately built and nourished, no apparent distress Head: normocephalic, Atraumatic Eyes: normal inspection, EOMI Neck: supple, Trachea midline Respiratory/Chest: Decreased breath sounds, CTA, No accessory muscle use Chest+Pacemaker Cardiovascular: S1, S2, No murmur Abdomen/GI:Soft, non tender, Bowel sounds present Extremities/Musculoskeletal:normal inspection, no edema Neurologic/Psych:AAOX3, grossly no focal neurological deficits Skin: normal color, warm Results & Data Results & Data ([facility]) Vital Signs (Past 12 Hours) Vital Signs Temp Pulse Resp BP Pulse Ox 08/17/20 16:21 36.7 C 68 18 106/60 95 08/17/20 11:04 36.8 C 70 19 111/52 L 91 08/17/20 07:07 36.8 C 73 19 120/70 94 Laboratory Results Short CBC 08/17/20 Range/Units 05:33 WBC 9.03 (4.8-10.8) K/uL Hgb 14.4 (12.0-16.0) g/dL Hct 41.0 (37-47) % Plt Count 159 (130-400) K/uL BMP 08/17/20 05:33 Sodium 131 L Potassium 3.9 Chloride 100 Carbon Dioxide 25 BUN 44 H Creatinine 0.99 D Glucose 102 H Calcium 8.6 Cardiac Enzymes 08/16/20 08/16/20 Range/Units 16:34 21:34 Troponin I 0.085 H* 0.065 H* (0-0.045) ng/ml Liver Function 08/17/20 Range/Units 05:33 Total Bilirubin 0.7 (0.2-1) mg/dl AST 14 L (15-37) U/L ALT 18 (12-78) U/L Alkaline Phosphatase 41 L (45-117) U/L Albumin 2.7 L (3.4-5.0) gm/dl
--- NOTE | 2020-08-17 18:33 | Nuclear Medicine Report ---
NUCLEAR PULMONARY PERFUSION SCAN CLINICAL HISTORY: Dyspnea. Covid. COMPARISON STUDY: Chest x-ray dated 08/16/2020. Chest CT dated 07/27/2017. TECHNIQUE: Nuclear perfusion scan is performed following the IV administration of 6.1 mCi of techneti um 99m MAA. Perfusion images were acquired in the anterior, posterior, and oblique projections. FINDINGS: A chest x-ray performed 08/16/2020 shows cardiomegaly and a cardiac AICD. No airspace consolidation or pleural effusion is identified. Perfusion of both lungs is markedly heterogeneous. A photopenic defect projecting over the left lung is consistent with the patient's pacemaker. No segmental perfusion defects are clearly identified. IMPRESSION: Heterogeneous perfusion of both lungs with no clear segmental defects to suggest pulmonar y embolus. Note that this examination is insensitive in detecting pulmonary emboli. If there is stron g clinical concern for pulmonary embolus a CT angiogram should be obtained. ACT 112: Negative or not required by law. Electronically signed by: Saeed Guallpa M.D. 08/17/2020 6:32 PM
[2020-08-17] MEDS: VENLAFAXINE HCL XR 75 MG CAPXR PO SCH (21:25)
[2020-08-17] MEDS: traZODone HCL 50 MG TAB PO SCH (21:25)
[2020-08-18] MEDS: oxyCODONE HCL IR 5 MG TAB (IMMEDIATE RELEASE) PO PRN ×2 (07:45→14:02)
[2020-08-18] MEDS ORDERED: SODIUM CHLORIDE 0.9% 1000ML 1,000 ML IV ONE (08:22)
[2020-08-18 08:27] LABS: BUN Creatinine Ratio 42.9 (10-20); Calcium 8.5 mg/dl (8.5-10.1); Creatinine Clr Calc Pharmacy 47.9 ml/min; Est GFR (African American) 86.1; Est GFR (Non-African American) 74.3; Potassium 3.5 mmol/L (3.5-5.1)
[2020-08-18] MEDS: INSULIN ASPART 100 UNITS/ML 3 ML PEN SC SCH ×4 (08:45→20:52)
[2020-08-18] MEDS: UMECLIDINIUM/VILANTEROL 62.5/25MCG 7 PUFFS/INHALER INH SCH (09:02)
[2020-08-18] MEDS: ASPIRIN 81 MG ECTAB PO SCH (09:04)
[2020-08-18] MEDS: METOPROLOL SUCC 50MG EXT REL TAB PO SCH (09:04)
[2020-08-18] MEDS: FAMOTIDINE 10 MG TABLET PO SCH ×2 (09:04→19:27)
[2020-08-18] MEDS: ROSUVASTATIN CALCIUM 5 MG TAB PO SCH (09:04)
[2020-08-18] MEDS: APIXABAN 5 MG TABLET PO SCH ×2 (09:05→19:27)
[2020-08-18] MEDS: PANTOprazole 40 MG TAB PO SCH (09:05)
[2020-08-18] MEDS ORDERED: POTASSIUM CHLORIDE 10 MEQ TABCR PO STA (10:46)
--- NOTE | 2020-08-18 10:52 | Cardiology Progress Note ---
Date of Service August 18, 2020 Assessment & Plan (1) Elevated troponin: (2) COVID-19: (3) MARIELLA (acute kidney injury): (4) Ischemic cardiomyopathy: (5) Sinus tachycardia: 75 year old female with history of CAD, past complex PCI procedures, h/o RCA territory scar. Pt recently treated in [place] for COVID-19 pneumonia. Presented to this institution with generalized fatigue. No symptoms suggestive of angina. Troponin I measurements x3 minimally elevated on presentation, equivocal EKG changes in the setting of chronic biventricular paced rhythm. Acute kidney injury noted on presentation which is improved with IV fluids. And the patient feels well. This morning between 7 and 8:00, sinus tachycardia was noted, with heart rates up to 120 bpm, and there was also a brief run of wide-complex tachycardia last evening 08/17/2020 at 1615 consistent with nonsustained ventricular tachycardia or supraventricular tachycardia with aberrant conduction (has conduction delay / bundle branch block at baseline) with rate up to 170s. Will supplement potassium. Continue metoprolol. Proceed with limited echocardiogram for evaluation of tachycardia. DC IV Fluids. Superficial thrombophlebitis on LE venous duplex in setting of recent COVID-19 illness, will therefore proceed with short term anticoagulation , Eliquis 5 mg BID for 1-3 months. Hypoxia improving. No cough, afebrile. Admission and Anticipated Discharge Date Admission Date: August 16, 2020 Subjective Ms Tong was seen in follow up. Denies chest pain, shortness of breath. Feels well. Review of Systems Review of Systems: All systems reviewed & are unremarkable except as noted in HPI & below Physical Exam Physical Exam: Temp Pulse Resp BP Pulse Ox 37.0 C 141 H 18 115/70 92 08/18/20 07:34 08/18/20 07:34 08/18/20 07:34 08/18/20 07:34 08/18/20 07:34 Constitutional: WD/WN, vitals as above Respiratory: no labored breathing Cardiovascular: Extremities: no edema Results & Data ([facility]) Vital Signs (Past 12 Hours) Vital Signs Temp Pulse Resp BP Pulse Ox 08/18/20 07:34 37.0 C 141 H 18 115/70 92 08/18/20 03:15 36.8 C 68 19 104/62 90 08/18/20 00:05 36.7 C 84 19 124/63 93 Laboratory Results Comprehensive Metabolic Panel 08/18/20 Range/Units 07:24 Sodium 133 L (136-145) mmol/L Potassium 3.5 (3.5-5.1) mmol/L Chloride 100 (98-107) mmol/L Carbon Dioxide 25 (21-32) mmol/L BUN 34 H (7-18) mg/dl Creatinine 0.79 (0.6-1.2) mg/dl Glucose 83 (70-99) mg/dl Calcium 8.5 (8.5-10.1) mg/dl Intake and Output 08/17/20 08/18/20 08/18/20 22:59 06:59 14:59 Intake Total 1959 Balance 1959 Intake: Oral 480 / 960 240 / 960 Other: Weight 56.8 kg Weight Measurement Method Built in [facility]
[2020-08-18] MEDS ORDERED: OPTIRAY 320 125ml IV ONE (11:30)
--- NOTE | 2020-08-18 11:55 | CT Scan Report ---
CT ANGIOGRAPHY OF THE CHEST, PULMONARY EMBOLUS PROTOCOL CLINICAL HISTORY: Shortness of breath. Covid. COMPARISON STUDY: Chest CT July 27, 2017. Chest radiograph August 08, 2020. Nuclear medicine ventilat ion study August 17, 2020. TECHNIQUE: Following IV administration of 118 mL of Optiray-320, helical axial images of the chest we re obtained utilizing the pulmonary embolus protocol. Maximal intensity projections and sagittal and coronal reformats were viewed on an independent 3D workstation. IV contrast was administered withou t complication. Automated exposure control was utilized for the study. A dose lowering technique wa s utilized adhering to the principles of ALARA. CT DOSE: 361.26 mGycm FINDINGS: A left subclavian biventricular pacer/AICD is in place. No pulmonary emboli are identified . There is no thoracic aortic dissection. Mild cardiomegaly is noted. There is moderate coronary kenna ry calcification. No enlarged thoracic lymph nodes are present. There is no pneumothorax or pleural e ffusion. Note is made of bronchial wall thickening of multifocal mucus plugging most evident within t he left lower lobe. Extensive tree-in-bud nodules within the left lower lobe are noted. In addition, there are numerous small cavitary opacities within the lungs. Lungs are suboptimally assessed given r espiratory motion. No suspicious lesion or acute fractures identified within the bony thorax. IMPRESSION: 1. No pulmonary emboli identified. 2. Extensive irregular tree-in-bud nodules within the left lower lobe with numerous small cavitary op acities within the lungs. The findings represent an infectious process. The findings may reflect mil l pneumonia however cavitation is somewhat uncommon in Covid. ACT 112: Negative or not required by law. Electronically signed by: Korey Cobb M.D. 08/18/2020 11:54 AM
--- NOTE | 2020-08-18 15:11 | Electrocardiogram Report ---
Test Reason : Blood Pressure : / mmHG Vent. Rate : 067 BPM Atrial Rate : 067 BPM P-R Int : 146 ms QRS Dur : 138 ms QT Int : 436 ms P-R-T Axes : 053 -44 076 degrees QTc Int : 460 ms Atrial-sensed ventricular-paced rhythm Abnormal ECG When compared with ECG of 17-AUG-2020 07:27, Vent. rate has decreased BY 4 BPM Confirmed by Rudolph Lerma ([id number]) on 08/18/2020 3:11:21 PM Referred By: REFERRED SELF Confirmed By:Rudolph Lerma
--- NOTE | 2020-08-18 16:42 | Hospitalist Progress Note ---
Date of Service August 18, 2020 Assessment & Plan (1) MARIELLA (acute kidney injury): (2) Diarrhea: (3) Nausea: (4) CKD (chronic kidney disease), stage III: MARIELLA on CKD stage III Prerenal secondary to GI losses Cr:1.76>0.99>0.79 Resume diuretics, lisinopril as able Avoid nephrotoxic agents as able Received IV fluids Continue to monitor renal function Nausea, diarrhea, epigastric pain --CT abdomen:No bowel obstruction or bowel wall thickening. Patchy bibasilar groundglass densities are compatible with infectious or inflammatory pneumonitis. Tree-in-bud nodules of the left lung base suggest an associated infectious or inflammatory bronchiolitis. Nonobstructing right nephrolithiasis. No ureteral calculi or shifted uropathy. Indeterminate 2.5 cm intermediate attenuating lesion of the inferior pole left kidney. This could be correlated with a nonemergent follow-up renal ultrasound. 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 No evidence of deep venous thrombus within the bilateral lower extremities. -Started on Eliquis for DVT prophylaxis -Advised to repeat Dopplers in 2 weeks as outpatient Type II WA likely due to COVID, MARIELLA H/O CAD EKG changes Noted Mild troponin elevation Appreciate Cardiology Input Continue home medication Hyponatremia Likely secondary to dehydration Received IV fluids Monitor sodium level Respiratory failure with hypoxia Secondary to recent Covid infection Continue supplemental oxygen as needed Completed treatment for Covid at [facility] CTA showed no PE. Findings suggestive of extensive irregular tree-in-bud nodules within the left lower lobe with numerous small cavitary opacities within the lungs. Needs repeat CT chest and follow-up with pulmonology as outpatient Needs 2 step prior to discharge Elevated D-dimer Likely due to COVID Infection Venous Doppler as above CT showed no PE (5) COVID-19: (6) COPD, group C, by GOLD 2017 classification: (7) Respiratory failure with hypoxia: management as above (8) T wave inversion in EKG: (9) Elevated troponin: (10) History of implantable cardioverter-defibrillator (ICD) placement: (11) CAD (coronary artery disease): (12) Ischemic cardiomyopathy: (13) HTN (hypertension): (14) Hyperlipidemia: On statin (15) GERD (gastroesophageal reflux disease): Continue Protonix (16) DVT prophylaxis: Eliquis Code Status Full Code Admission and Anticipated Discharge Date Admission Date: August 16, 2020 Subjective Patient is seen and examined at bedside Reports only minimal cough Eager to get discharged Denies chest pain, abdominal pain Saturating low 90s on room air Discussed with cardiology today Had NSVT yesterday evening Review of Systems Review of Systems: All systems reviewed & are unremarkable except as noted in HPI & below Physical Exam Physical Exam: Physical Exam: Vitals signs as noted above General Appearance:Moderately built and nourished, no apparent distress Head: normocephalic, Atraumatic Eyes: normal inspection, EOMI Neck: supple, Trachea midline Respiratory/Chest: Decreased breath sounds, CTA, No accessory muscle use Chest+Pacemaker Cardiovascular: S1, S2, No murmur Abdomen/GI:Soft, non tender, Bowel sounds present Extremities/Musculoskeletal:normal inspection, no edema Neurologic/Psych:AAOX3, grossly no focal neurological deficits Skin: normal color, warm Results & Data Results & Data ([facility]) Vital Signs (Past 12 Hours) Vital Signs Temp Pulse Resp BP Pulse Ox 08/18/20 15:20 36.7 C 70 19 101/53 L 93 08/18/20 07:34 37.0 C 141 H 18 115/70 92 Laboratory Results [facility] 08/18/20 07:24 Sodium 133 L Potassium 3.5 Chloride 100 Carbon Dioxide 25 BUN 34 H Creatinine 0.79 Glucose 83 Calcium 8.5
[2020-08-18] MEDS: traZODone HCL 50 MG TAB PO SCH (19:27)
[2020-08-18] MEDS: VENLAFAXINE HCL XR 75 MG CAPXR PO SCH (19:28)
[2020-08-19 07:41] LABS: Hematocrit (blood only) 37.7 % (37-47); Mean Corpuscular Hemoglobin 32.6 pg (25-34); Mean Corpuscular Hgb Conc 34.5 g/dL (32-36); Mean Corpuscular Volume 94.5 fL (80-100); Mean Platelet Volume 11.1 fL (7.4-10.4); Platelet Count 108 K/uL (130-400); RDW Coefficient of Variation 13.1 % (11.5-14.5); RDW Standard Deviation 45.6 fL (36.4-46.3); Red Blood Count 3.99 M/uL (4.2-5.4); White Blood Count 7.24 K/uL (4.8-10.8)
[2020-08-19 08:12] LABS: BUN Creatinine Ratio 32.7 (10-20); Calcium 8.4 mg/dl (8.5-10.1); Est GFR (African American) 99.6; Magnesium 1.8 mg/dl (1.8-2.4); Potassium 3.7 mmol/L (3.5-5.1)
[2020-08-19] MEDS: ASPIRIN 81 MG ECTAB PO SCH (08:19)
[2020-08-19] MEDS: oxyCODONE HCL IR 5 MG TAB (IMMEDIATE RELEASE) PO PRN (08:19)
[2020-08-19] MEDS: METOPROLOL SUCC 50MG EXT REL TAB PO SCH (08:20)
[2020-08-19] MEDS: ROSUVASTATIN CALCIUM 5 MG TAB PO SCH (08:20)
[2020-08-19] MEDS: FAMOTIDINE 10 MG TABLET PO SCH (08:20)
[2020-08-19] MEDS: UMECLIDINIUM/VILANTEROL 62.5/25MCG 7 PUFFS/INHALER INH SCH (08:20)
[2020-08-19] MEDS: PANTOprazole 40 MG TAB PO SCH (08:20)
[2020-08-19] MEDS: APIXABAN 5 MG TABLET PO SCH (08:20)
[2020-08-19] MEDS: INSULIN ASPART 100 UNITS/ML 3 ML PEN SC SCH ×2 (09:00→13:49)
--- NOTE | 2020-08-19 10:57 | Cardiology Progress Note ---
Date of Service August 19, 2020 Assessment & Plan (1) Elevated troponin: (2) COVID-19: 75-year-old female with history of coronary heart disease, inferior posterior myocardial infarction 2006. She underwent PCI to the RCA territory on 2 separate occasions. She has a history of underlying left bundle branch block, and left ventricular systolic dysfunction for which she underwent cardiac resynchronization enabled biventricular pacemaker ICD in 2008 with generator change in 2013. She had tested positive for COVID-19 on 07/28/2020 and had previously been hospitalized at [facility]. Shortly after discharge she presented to this institution with ongoing fatigue. No residual cough or fever. Acute renal insufficiency noted on presentation, has since resolved. Superficial facial lower extremity thrombophlebitis noted on lower extremity venous duplex without DVT, no PE on follow-up CT angiogram. Echocardiogram reveals normal wall motion, normal LVEF. I have been concerned of sinus tachycardia yesterday, I think this was just appropriate sinus tachycardia while she was walking in her room and cleaning up in the morning. This is since resolved. Patient stable from a cardiac perspective for discharge. She likely needs to be assessed for candidacy for home oxygen prior to discharge as she is still on 2 L nasal cannula with a pulse oximetry of 92%. She previously completed a course of dexamethasone and remdesivir at [facility]. She is being followed closely by the device clinic at [facility] for weaning generator longevity of her device. She is scheduled for an in office device interrogation on 08/25/2020 at 9:30 AM. Based on her clinical status, I think is reasonable for this in person appointment to be kept. Medication plan: Discharge on Eliquis 5 mg BID , for planned 1-3 month course depending on her mobility, given risk of VTE post COVID-19. Cardio follow up in 4-6 weeks. Admission and Anticipated Discharge Date Admission Date: August 16, 2020 Subjective I spoke to patient on the telephone. In person physical exam was performed. She states that she feels "great". She is eager for discharge. She denies any chest discomfort or shortness of breath. CT angiogram performed yesterday revealed no pulmonary embolism, ongoing findings suggestive of pneumonia noted. Telemetry reveals predominantly sinus rhythm with ventricular paced QRS complexes in the 80s. She has occasional brief asymptomatic runs of wide-complex tachycardia, but these could very well be supraventricular beats rather than VT, as she has a seminole left bundle branch block when she is not BiV paced. Review of Systems Review of Systems: All systems reviewed & are unremarkable except as noted in HPI & below Physical Exam Physical Exam: Temp Pulse Resp BP Pulse Ox 37.3 C 74 17 107/60 92 08/19/20 07:34 08/19/20 07:34 08/19/20 07:34 08/19/20 07:34 08/19/20 07:34 Respiratory: No conversational dyspnea Results & Data ([facility]) Vital Signs (Past 12 Hours) Vital Signs Temp Pulse Pulse Resp BP BP Pulse Ox 08/19/20 07:34 37.3 C 74 17 107/60 92 08/19/20 07:00 77 08/19/20 03:32 37.2 C 70 18 123/68 90 08/19/20 00:03 36.9 C 74 18 109/59 L 92
--- NOTE | 2020-08-19 11:26 | Communication Note ---
Date of Service: August 19, 2020 Pt admitted with COVID 19 , dehydration , fatigue symptoms has resolved completed a course of dexamethasone and remdesivir at [facility]. Superficial facial lower extremity thrombophlebitis noted on lower extremity venous duplex without DVT, no PE on follow-up CT angiogram. given hypercoagulable conditions associated with COVID 19 infection , pt will be treated for 6 weeks of Eliquis Sinus tachycardia : appreciate input from cardiology Echocardiogram reveals normal wall motion, normal LVEF. Patient stable from a cardiac perspective for discharge. already have home 02-has not been compliant , asked pt to continue to wear it 12/12 Pacemaker battery check She is scheduled for an in office device interrogation on 08/25/2020 at 9:30 AM. tested positive for COVID-19 on 07/28/2020 -per current guideline pt can be off quarantine ( 10-14 days post positive test , if no ongoing symptoms ) Discharge Medication: Discharge on Eliquis 5 mg BID , for 6 weeks PO Doxycycline 100 mg PO BID for 7 days ( tree in bud change noted in CT chest ) for possible viral pneumonitis /high risk for bacterial co infection pt will be discharged home today Mendy Salgado MD
--- NOTE | 2020-08-19 14:35 | Discharge Summary ---
Date of Service August 19, 2020 Admission HPI Per Admitting Provider Patient is a 75 yo female with PMHx including COPD, group C, HTN, CAD with history of ID and stenting, ischemic cardiomyopathy, Biventricular pacer/ICD in place, CKD III, chronic migraines, and anxiety who presented to the ED via EMS for concern of SOB and lethargy starting this AM. I spoke with the patient on the phone to receive historical information. Patient was admitted to [facility] with COVID-19 infection from 07/28 (initial dx) until yesterday 08/15/20. [place] records available for review are limited, but upon review of initial labs/H&P, patient was treated with Remdesivir and Dexamethasone. She was also tx with Ceftriaxone for Klebsiella UTI. She was ultimately d/c'd home with 2L/min of O2 via nasal cannula continuously. The patient got home last night and was feeling run down, but over night and into this morning, she started to feel worse. She had severe nausea overnight with multiple episodes of diarrhea. No blood in stool. No formed stool since discharge though. She does have pain in her epigastric region today which is moderate/severe. She does take PPI daily chronically. She has moderate continued SOB but no worse from hospitalization previously. No chest pain. She does have extensive cardiac history with CAD, hx ID, hx apical thrombus, Biventricular Pacer/ICD placement, and ischemic cardiomyopathy. Upon presentation to the ED today, she had new anterior T wave inversions on EKG and elevated troponin which was new. Today's EKG and prior EKG reviewed today by me. Repeat COVID testing here was also +. WBC count mildly elevated. UA clean. DDimer 2310. Creatinine up to 1.7 from baseline of 1.1 outpatient. She was mildly hypoxic upon arrival on room air, down to 89%. She is currently on 2 L/min via nasal cannula and saturating well. CXR showed no acute process. CT abd/pelvis without contrast showed patchy grounglass opacities in the B/L LL consistent with possible infectious process. Principal Diagnosis COVID 19 pneumonia Sinus Tachycardia Discharge Data Allergies Allergy/AdvReac Type Severity Reaction Status Date / Time NSAIDS (Non-Steroidal Allergy Severe GI ISSUES Unverified 08/16/20 12:39 Anti-Inflamma isosorbide Allergy Unknown VOMIT/HEADA Unverified 08/16/20 12:39 CARLOS Vcmzgdc-Utc-Orq Reductase Allergy Unknown LIVER Unverified 08/16/20 12:39 Inhibitor FUNCTION ELEVATES tramadol Allergy Unknown VOMITING Unverified 08/16/20 12:39 Consultations 08/16/20 13:41 ED Decision to Admit Stat 08/16/20 15:03 Consult Cardiology Routine Ordered Studies 08/16/20 13:26 CT abd pelvis wo con Stat 08/16/20 18:33 US venous doppler LE BI Urgent 08/18/20 08:20 CT angio chest PE protocol Urgent Hospital Course (1) MARIELLA (acute kidney injury): (2) Diarrhea: (3) Nausea: (4) CKD (chronic kidney disease), stage III: resolved MARIELLA on CKD stage III Prerenal secondary to GI losses Cr:1.76>0.99>0.79 Resume diuretics, lisinopril Nausea, diarrhea, epigastric pain symptoms has resolved --CT abdomen:No bowel obstruction or bowel wall thickening. Patchy bibasilar groundglass densities are compatible with infectious or inflammatory pneumonitis. Tree-in-bud nodules of the left lung base suggest an associated infectious or inflammatory bronchiolitis. Nonobstructing right nephrolithiasis. No ureteral calculi or shifted uropathy. Indeterminate 2.5 cm intermediate attenuating lesion of the inferior pole left kidney. This could be correlated with a nonemergent follow-up renal ultrasound. 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 No evidence of deep venous thrombus within the bilateral lower extremities. -Started on Eliquis for DVT prophylaxis - Type II ID likely due to COVID, MARIELLA H/O CAD EKG changes Noted Mild troponin elevation Appreciate Cardiology Input /no ACS Continue home medication Respiratory failure with hypoxia resolved , has home 02 already Secondary to recent Covid infection Continue supplemental oxygen as needed Completed treatment for Covid 19 with decadron /remdesivir at [facility] CTA showed no PE. Findings suggestive of extensive irregular tree-in-bud nodules within the left lower lobe with numerous small cavitary opacities within the lungs. will be discharged home with PO Doxycycline (5) COVID-19: (6) COPD, group C, by GOLD 2017 classification: (7) Respiratory failure with hypoxia: management as above (8) T wave inversion in EKG: (9) Elevated troponin: (10) History of implantable cardioverter-defibrillator (ICD) placement: (11) CAD (coronary artery disease): (12) Ischemic cardiomyopathy: (13) HTN (hypertension): (14) Hyperlipidemia: On statin (15) GERD (gastroesophageal reflux disease): Continue Protonix (16) DVT prophylaxis: Eliquis Code Status Full Code Disposition: stable to be discharged home today Total Time Total Time Spent Total Time Spent (In Minutes): 35 mins Total Time Includes: Examination of the Patient, Discharge Planning, Medication Reconciliation and Communication With Other Providers Discharge Plan Discharge Items Patient Disposition: Home - Self-Care Reason For Visit: MARIELLA, DIARRHEA, COVID+ Discharge Diagnosis: COVID 19 pneumonia Sinus Tachycardia Activity: Resume your previous activity Non-emergency contact: Primary Care Provider Call non-emergency contact if: you have any medication questions Follow-up/Referrals: Roman Ennis MD [Primary Care Provider] - 08/24/20 11:00 am (Date & Time 08/24/2020 11:00 AM Provider Roman Ennis III, MD Department [facility] PLEASE NOTE THAT THIS IS A TELEPHONE APPOINTMENT. YOUR PHYSICIAN WILL CALL YOU AT THE APPOINTMENT TIME. IF YOU HAVE ANY QUESTIONS REGARDING THIS APPOINTMENT, PLEASE CALL ) Precious Sifuentes, [Physician] - Diet: Carb Consistent or DM2 Addtl Attending Provider Instructions: Please take all medications as instructed on discharge list below. It is recommended that you follow-up with your primary care physician within 1-2 weeks of hospital discharge to ensure you are still doing well. Please call if you have any questions or problems. 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 You should restrict activities outside your home, except for getting medical care. Do not go to work, school, or public areas. Avoid using public transportation, ride-sharing, or taxis. Separate yourself from other people and animals in your home People: As much as possible, you should stay in a specific room and away from other people in your home. Also, you should use a separate bathroom, if available. Animals: You should restrict contact with pets and other animals while you are sick with COVID-19, just like you would around other people. Although there have not been reports of pets or other animals becoming sick with COVID-19, it is still recommended that people sick with COVID-19 limit contact with animals until more information is known about the virus. When possible, have another m ember of your household care for your animals while you are sick. If you are sick with COVID-19, avoid contact with your pet, including petting, snuggling, being kissed or licked, and sharing food. If you must care for your pet or be around animals while you are sick, wash your hands before and after you interact with pets and wear a face mask. Call ahead before visiting your doctor If you have a medical appointment, call the healthcare provider and tell them that you have or may have COVID-19. This will help the healthcare providers office take steps to keep other people from getting infected or exposed. Wear a face mask You should wear a face mask when you are around other people (e.g., sharing a room or vehicle) or pets and before you enter a healthcare providers office. If you are not able to wear a face mask (for example, because it causes trouble breathing), then people who live with you should not stay in the same room with you, or they should wear a face mask if they enter your room. Cover your coughs and sneezes Cover your mouth and nose with a tissue when you cough or sneeze. Throw used tissues in a lined trash can. Immediately wash your hands with soap and water for at least 20 seconds or, if soap and water are not available, clean your hands with an alcohol-based hand carbon grinder that contains at least 60% alcohol. Clean your hands often Wash your hands often with soap and water for at least 20 seconds, especially after blowing your nose, coughing, or sneezing; going to the bathroom; and before eating or preparing food. If soap and water are not readily available, use an alcohol-based hand carbon grinder with at least 60% alcohol, covering all surfaces of your hands and rubbing them together until they feel dry. Soap and water are the best option if hands are visibly dirty. Avoid touching your eyes, nose, and mouth with unwashed hands. Avoid sharing personal household items You should not share dishes, drinking glasses, cups, eating utensils, towels, or bedding with other people or pets in your home. After using these items, they should be washed thoroughly with soap and water. Clean all high-touch surfaces everyday High touch surfaces include counters, tabletops, doorknobs, bathroom fixtures, t oilets, phones, keyboards, tablets, and bedside tables. Also, clean any surfaces that may have blood, stool, or body fluids on them. Use a household cleaning spray or wipe, according to the label instructions. Labels contain instructions for safe and effective use of the cleaning product including precautions you should take when applying the product, such as wearing gloves and making sure you have good ventilation during use of the product. Monitor your symptoms Seek prompt medical attention if your illness is worsening (e.g., difficulty breathing).Beforeseeking care, call your healthcare provider and tell them that you have, or are being evaluated for, COVID-19. Put on a face mask before you enter the facility. These steps will help the healthcare providers office to keep other people in the office or waiting room from getting infected or exposed. Ask your healthcare provider to call the local or [facility] health department. Persons who are placed under active monitoring or facilitated self- monitoring should follow instructions provided by their local health department or occupational health professionals, as appropriate. When working with your local health department check their available hours. If you have a medical emergency and need to call 911, notify the dispatch personnel that you have, or are being evaluated for COVID-19. If possible, put on a face mask before emergency medical services arrive. Discontinuing home isolation Patients with confirmed COVID-19 should remain under home isolation precautions until the risk of secondary transmission to others is thought to be low. The decision to discontinue home isolation precautions should be made on a [id number] basis, in consultation with healthcare providers and state and local health departments. PER CURRENT CDC GUIDELINE ; YOU CAN DISCONTINUE STRICT HOME QUARANTINE 10 DAYS FROM THE ONSET OF YOUR SYMPTOMS OR POSITIVE COVID 19 TEST , WHICH EVER IS EARLIER PROVIDED YOU DO NOT HAVE ANY SYMPTOMS -NO COUGH , DIARRHEA , NO FEVER WITHOUT TAKING FEVER REDUCING MEDICATIONS ( TYLENOL , MOTRIN) FOR PAST 24 HRS Pending Studies at Discharge: No Stand-Alone Forms: My [employer], Smoking Cessation Medications and DC Order Prescriptions: New Eliquis 5 mg Tablet 5 mg PO BID 42 Days Qty: 84 RF: 0 doxycycline hyclate 100 mg capsule 100 mg PO BID 7 Days Qty: 14 RF: 0 Continued clonidine HCl 0.1 mg Tablet 0.1 mg PO BID Qty: 0 RF: 0 aspirin 81 mg Tablet,Delayed Release (Dr/Ec) 81 mg PO DAILY Qty: 0 RF: 0 pantoprazole 40 mg Tablet,Delayed Release (Dr/Ec) 40 mg PO DAILY Qty: 30 RF: 0 nitroglycerin 0.4 mg Tablet, Sublingual 0.4 mg sublingual UD Qty: 0 RF: 0 lisinopril 20 mg Tablet 20 mg PO BID Qty: 0 RF: 0 metoprolol succinate 100 mg Tablet Extended Release 24 Hr 100 mg PO DAILY Qty: 0 RF: 0 albuterol sulfate 90 mcg/actuation Hfa Aerosol Inhaler 2 puff INHALATION Q4H Qty: 0 RF: 0 lorazepam 0.5 mg tablet 0.5 mg PO UD PRN (Reason: Anxiety) RF: 0 indapamide 1.25 mg tablet 2.5 mg PO DAILY RF: 0 hydroxyzine HCl 25 mg tablet 25 mg PO TID PRN (Reason: Anxiety) RF: 0 venlafaxine 75 mg capsule,extended release 24hr 75 mg PO HS RF: 0 trazodone 50 mg tablet 25 mg PO HS RF: 0 oxycodone 5 mg tablet 5 mg PO QID PRN (Reason: Severe Pain (Scale Score 7-10)) RF: 0 rosuvastatin 5 mg tablet 5 mg PO DAILY RF: 0 Anoro Ellipta 62.5-25 mcg/actuation blister with device 1 inh INHALATION DAILY RF: 0 Discharge Orders: Discharge Order (Routine); Ordered 08/19/20 Ordered By: Mendy Arnold/Other Patient Handouts: High Blood Sugar (Hyperglycemia), A1C Admission Data Admit Date/Time: 08/16/20 14:02 Attending Provider: Mendy Salgado Admit Provider: Lam Freed Primary Care Provider: Roman Ennis Other Providers: Lam Freed ; Forest Jones Other Interventions: Discharge Summary Assessment (RN) Last Done: 08/19/20 11:58
== END 2020-08-19 15:14 | disposition home or self-care (01) ==
LOC: ED 11:27 → INTOOBSV 14:02 → 2S 14:02 → SUATTDRO 14:02 → 2S 14:36

== ENCOUNTER 2022-10-05 09:09 | Inpatient (IN) ==
--- NOTE | 2022-10-05 09:19 | Emergency Department Note ---
Impression & Plan Seizure, MARIELLA (acute kidney injury), Rhabdomyolysis, Acute dehydration ED Provider Note NAME: JEAN-CLAUDE MIRELES AGE: 77 SEX: F : 1945 ARRIVES VIA: Ambulance INFORMANT: Patient, EMS ED PROVIDER(S): Rudolph Dukes DO CHIEF COMPLAINT: Altered mental status HPI: The patient is a 77-year-old female who presented to the emergency department by ambulance for an evaluation of altered mental status. The patient was last seen normal 3 days ago. She was found by family on the floor. She was helped to the couch. I did receive a prehospital notification about this patient for medic command. There was concern because the patient was not acting appropriately. She did receive Narcan prior to arrival because she has a history of oxycodone use but not abuse. The patient did not have a significant improvement in her mental status but prior to arrival the patient did start to respond more appropriately. At this time the patient does not remember what happened. There was clotted blood around her mouth. The patient does not remember having a seizure or a history of seizures. She denies any recent alcohol or drug abuse. She states that she has been compliant with her outpatient medications. Initially she was found to be hypotensive but received 800 mL of fluid prior to arrival with significant improvement of her blood pressure. She complains of pain along her left side. She denies having any fever. ROS: See above HPI for pertinent positives & negatives. A total of 10 systems reviewed and were otherwise negative. PAST MEDICAL HISTORY: See Below PAST SURGICAL HISTORY: See Below FAMILY HISTORY: See Below SOCIAL HISTORY: See Below HOME MEDICATIONS: See Below ALLERGIES: See Below VITALS: See Below PHYSICAL EXAMINATION: GENERAL: The patient is awake and alert. She is somewhat anxious appearing but overall comfortable. EYES: The conjunctivae are clear. The pupils are round and reactive. EARS, NOSE, MOUTH AND THROAT: The nose is without any evidence of any deformity. There was clotted blood in the oropharynx. NECK: The neck is nontender and supple. RESPIRATORY: Normal respiratory effort is noted there is no evidence of wheezing rhonchi or rales CARDIOVASCULAR: Regular rate and rhythm noted there no murmurs rubs or gallops normal S1 normal S2. GASTROINTESTINAL: The abdomen is soft. Abdomen is nontender. MUSCULOSKELETAL/EXTREMITIES: There is no evidence of gross deformity full range of motion is noted in the hips and shoulders. SKIN: Skin was cool and dry. Trace pedal edema was noted bilaterally. Skin was pale. NEUROLOGIC: Patient is awake alert and oriented x3. Strength is symmetric in both hand grasps. The patient is able to hold each leg off the bed for greater than 5 seconds but has some trouble with her left leg reportedly because of pain. MEDICAL DECISION MAKING: The patient is a 77-year-old female who presented to the emergency department for an evaluation of altered mental status. The patient was found on the floor in her home. She initially was not awake or alert. She received Narcan because she does have a history of taking pain medication. The patient did not respond to Narcan but eventually when she arrived to the emergency department she was awake and alert. Initially she was hypotensive but this improved with IV fluids. The patient was evaluated. She her neurologic exam was normal on my evaluation. During the time in the emergency department she did have an episode of altered mental status. She appeared to be having a seizure. The patient was treated with Ativan as well as Keppra in the emergency department. She was reevaluated multiple times. Condition slowly improved but she did not return to baseline completely. She did not appear to be seizing. I discussed the patient's laboratory and radiographic studies with the on-call [facility] group. They have agreed to evaluate the patient in the emergency department for further management and disposition. Triage Nursing notes reviewed. Prior medical records reviewed Vital Signs: reviewed and remarkable for initial hypotension. Differential diagnosis: Infection, hypoglycemia, electrolyte abnormalities, overdose, toxicologic, cardiac sources, intracerebral event, neurologic, trauma, as well as other pathologies. ER treatment provided: See below Diagnostics interpreted by me: ECG: EKG was obtained in the emergency department. My interpretation is atrial sensed and ventricular paced rhythm at 80 bpm. There were no [place] beats. Poor R wave progression was noted. This was compared to a tracing from August 18, 2020. No changes were noted. Cardiac Monitoring: An order was placed for continuous cardiac monitoring. The monitor shows a rate of 76 bpm with sinus rhythm. Laboratory studies: As stated above and show below. Imaging studies: See below. Radiographic imaging was reviewed by myself Consultation(s): I discussed this case with Debbie who is on-call for the [facility] group. ED COURSE: Procedures: none Critical Care: I have personally spent greater than 40 minutes of critical care time in the direct management of this patient. This includes bedside care, interpretation of diagnostic studies, and testing, discussion with consultants, patient, and family members, and other required patient management activities. This 40 minutes is in excess of all separately billable procedures. Past Med/Surg History Medical History (Updated 10/05/22 @ 12:23 by OSCAR Arroyo) Acute anterior wall HI Anxiety CAD (coronary artery disease) "HI 2006. S/P PCI/Stent RCA" Chronic hepatitis C without hepatic coma CKD (chronic kidney disease), stage III COPD, group C, by GOLD 2017 classification Elevated troponin GERD (gastroesophageal reflux disease) H/O cardiac pacemaker HTN (hypertension) Hyperlipidemia Hypoxia Ischemic cardiomyopathy LBBB (left bundle branch block) Migraine OA (osteoarthritis) Respiratory acidosis Surgical History H/O release of tendon H/O: hysterectomy History of carpal tunnel surgery History of implantable cardioverter-defibrillator (ICD) placement Hx of cataract surgery S/P cardiac cath S/P cholecystectomy Family History Father Prostate cancer Heart disease Thyroid disorder Mother Cancer Cervical Coronary heart disease s/p CABG Diabetes Social History Smoking Status: Current every day smoker Tobacco Type: Cigarettes packs per day: 0.5; Second Hand Exposure: No; Do You Dip or Chew Tobacco: No; Hx Alcohol Use: No Hx Substance Use: No Preferred Language: Nepali Communication Ability: Effective Experimental Preflight Mechanic Required: No Beliefs That Will Affect Care: None Current Living Situation: Family Feels Safe at Home: Yes Assistive Devices: None Allergies Allergies Allergy/AdvReac Type Severity Reaction Status Date / Time NSAIDS (Non-Steroidal Allergy Severe GI ISSUES Verified 10/05/22 13:35 Anti-Inflamma isosorbide Allergy Unknown VOMIT/HEADA Verified 10/05/22 13:35 CARLOS Kkriejl-IAP-CfF Reductase Allergy Unknown LIVER Verified 10/05/22 13:35 Inhibitor FUNCTION [Mrbgurq-Hga-Zon Reductase ELEVATES Inhibitor] tramadol Allergy Unknown VOMITING Verified 10/05/22 13:35 Home Meds Home Medications Medication Instructions Recorded Confirmed aspirin 81 mg tablet,delayed 81 mg PO DAILY ##0 11/09/17 05/17/23 release clonidine HCl 0.1 mg tablet 0 mg PO DAILY #0 tabs 03/30/17 10/05/22 nitroglycerin 0.4 mg sublingual 0.4 mg sublingual UD #0 BTLS 03/30/17 10/05/22 tablet pantoprazole 40 mg tablet,delayed 40 mg PO DAILY #30 tabs 03/30/17 10/05/22 release albuterol sulfate 90 mcg/actuation 2 puff inhalation Q4H SOB/Wheezing 07/27/17 10/05/22 aerosol inhaler ##0 lisinopril 20 mg tablet 20 mg PO DAILY ##0 07/27/17 10/05/22 metoprolol succinate 100 mg 100 mg PO DAILY #0 tabs 07/27/17 10/05/22 tablet,extended release 24 hr oxycodone 5 mg tablet 5 mg PO QID PRN Severe Pain (Scale 08/16/20 10/05/22 Score 7-10) trazodone 50 mg tablet 25 mg PO HS 08/16/20 10/05/22 atorvastatin 40 mg tablet 40 mg PO DAILY 10/05/22 10/05/22 cyanocobalamin (vitamin B-12) 1,000 mcg PO QAM 10/05/22 10/05/22 1,000 mcg tablet furosemide 40 mg tablet 40 mg PO DAILY 10/05/22 10/05/22 gabapentin 300 mg capsule 300 mg PO TID 10/05/22 10/05/22 nystatin 100,000 unit/gram topical 1 applic topical BID Rash on chest 10/05/22 10/05/22 ointment potassium chloride 20 mEq 20 meq PO DAILY 10/05/22 10/05/22 tablet,extended release(part/cryst) venlafaxine 150 mg 150 mg PO DAILY 10/05/22 10/05/22 capsule,extended release 24 hr Results & Data (ED) Vital Signs Vital Signs - 24 hr 10/05/22 09:19 10/05/22 09:27 10/05/22 09:49 Temperature 36.7 C Temperature Source Oral Pulse Rate 86 79 Pulse Rate [Apical] Pulse Rate from SpO2 Sensor Respiratory Rate 20 Respiratory Depth Normal Blood Pressure 139/83 Blood Pressure [Left Arm] Blood Pressure Mean 101 Blood Pressure Mean [Left Arm] Blood Pressure Position Lying Pulse Oximetry 99 93 Oxygen Delivery Method Room Air Room Air Oxygen Flow Rate Sepsis Recent Fever Within 48 Hours No Sepsis New/Unexplained Change in Mental Status No Sepsis Action Taken by Nursing No Action Required 10/05/22 09:20 10/05/22 09:42 10/05/22 09:46 Temperature Temperature Source Pulse Rate 78 77 86 Pulse Rate [Apical] Pulse Rate from SpO2 Sensor 78 100 H Respiratory Rate 23 18 29 H Respiratory Depth Blood Pressure Blood Pressure [Left Arm] Blood Pressure Mean Blood Pressure Mean [Left Arm] Blood Pressure Position Pulse Oximetry 96 Oxygen Delivery Method Oxygen Flow Rate Sepsis Recent Fever Within 48 Hours Sepsis New/Unexplained Change in Mental Status Sepsis Action Taken by Nursing 10/05/22 09:46 10/05/22 10:00 10/05/22 10:01 Temperature Temperature Source Pulse Rate 77 Pulse Rate [Apical] Pulse Rate from SpO2 Sensor Respiratory Rate 20 24 Respiratory Depth Blood Pressure 122/64 Blood Pressure [Left Arm] Blood Pressure Mean 83 Blood Pressure Mean [Left Arm] Blood Pressure Position Pulse Oximetry Oxygen Delivery Method Oxygen Flow Rate Sepsis Recent Fever Within 48 Hours Sepsis New/Unexplained Change in Mental Status Sepsis Action Taken by Nursing 10/05/22 10:01 10/05/22 10:30 10/05/22 10:32 Temperature Temperature Source Pulse Rate 94 H 80 Pulse Rate [Apical] Pulse Rate from SpO2 Sensor 81 80 Respiratory Rate 24 23 Respiratory Depth Blood Pressure 130/56 L 89/50 L Blood Pressure [Left Arm] Blood Pressure Mean 80 63 Blood Pressure Mean [Left Arm] Blood Pressure Position Pulse Oximetry 97 92 98 Oxygen Delivery Method Nasal Cannula Nasal Cannula Nasal Cannula Oxygen Flow Rate 2 2 2 Sepsis Recent Fever Within 48 Hours Sepsis New/Unexplained Change in Mental Status Sepsis Action Taken by Nursing 10/05/22 10:33 10/05/22 10:36 10/05/22 10:45 Temperature Temperature Source Pulse Rate 79 77 74 Pulse Rate [Apical] Pulse Rate from SpO2 Sensor 80 79 73 Respiratory Rate 26 H 20 16 Respiratory Depth Blood Pressure 94/65 L 93/54 L Blood Pressure [Left Arm] Blood Pressure Mean 74 67 Blood Pressure Mean [Left Arm] Blood Pressure Position Pulse Oximetry 92 97 99 Oxygen Delivery Method Nasal Cannula Nasal Cannula Nasal Cannula Oxygen Flow Rate 2 2 2 Sepsis Recent Fever Within 48 Hours Sepsis New/Unexplained Change in Mental Status Sepsis Action Taken by Nursing 10/05/22 11:10 10/05/22 12:56 10/05/22 13:00 Temperature Temperature Source Pulse Rate 76 Pulse Rate [Apical] 77 76 Pulse Rate from SpO2 Sensor Respiratory Rate 18 18 Respiratory Depth Blood Pressure Blood Pressure [Left Arm] 96/72 L 101/57 L Blood Pressure Mean Blood Pressure Mean [Left Arm] 80 71 Blood Pressure Position Pulse Oximetry 93 97 Oxygen Delivery Method Nasal Cannula Nasal Cannula Oxygen Flow Rate 2 2 Sepsis Recent Fever Within 48 Hours Sepsis New/Unexplained Change in Mental Status Sepsis Action Taken by Snf Medications Current Medication List: was personally reviewed by me Laboratory Data Attestation: I reviewed the patient's lab results. 10/05/22 09:24 10/05/22 09:24 Lab Results 10/05/22 10/05/22 10/05/22 Range/Units 09:20 09: 09:24 WBC (4.8-10.8) K/ul RBC (4.20-5.40) M/uL Hgb (12.0-16.0) g/dl Hct (37.0-47.0) % MCV (80.0-100.0) fL MCH (25.0-34.0) pg MCHC (32.0-36.0) g/dL RDW Std Deviation (36.4-46.3) fL RDW Coeff of Julia (11.5-14.5) % Plt Count (130-400) K/uL MPV (9.4-12.4) fL Immature Gran % (Auto) % Neut % (Auto) % Lymph % (Auto) % [place] % (Auto) % Eos % (Auto) % Baso % (Auto) % Neut # (Auto) (1.40-6.50) K/uL Lymph # (Auto) (1.2-3.4) K/uL [place] # (Auto) (0.11-0.59) K/uL Eos # (Auto) (0-0.50) K/uL Baso # (Auto) (0-0.2) K/uL Immature Gran # (Auto) (0.01-0.20) K/uL PT (9.0-12.0) Seconds INR (0.9-1.1) APTT (21.0-31.0) Seconds PTT Ratio VBG pH 7.23 L (7.36-7.41) VBG pCO2 64 H (38-50) mmHg VBG pO2 24 mmHg VBG HCO3 27 mmol/L VBG O2 Saturation < 60.0 % VBG Base Excess -2.1 mEq/L Sodium 138 (136-145) mmol/L Potassium 4.9 (3.5-5.1) mmol/L Chloride 104 (98-107) mmol/L Carbon Dioxide 27 (21-32) mmol/L Anion Gap 7 (3-11) BUN 50 H (6-23) mg/dl Creatinine 2.23 H (0.6-1.2) mg/dl Est Cr Clr Drug Dosing 19.3 ml/min Est GFR ( Amer) 24.2 ml/min Est GFR (Non-Af Amer) 20.9 ml/min BUN/Creatinine Ratio 22.4 H (10-20) Glucose 98 (70-99(Fasting)) mg/dl POC Glucose (70-99) mg/dl Lactate (0.4-2.0) mmol/L Calcium 8.6 (8.6-10.3) mg/dl Magnesium 2.0 (1.7-2.4) mg/dl Total Bilirubin 0.2 (0.2-1.0) mg/dl Direct Bilirubin 0.1 (0-0.2) mg/dl AST 41 H (13-39) U/L ALT 17 (7-52) U/L Alkaline Phosphatase 82 (34-104) U/L Total Creatine Kinase 2701 H (26-192) U/L Troponin I High Sens 9.8 (0-14) pg/ml Total Protein 6.3 (6.0-8.3) gm/dl Albumin 3.8 (3.4-5.0) gm/dl Triglycerides Cholesterol LDL Cholesterol, Calc VLDL Cholesterol, Calc HDL Cholesterol Cholesterol/HDL Ratio Procalcitonin (0-0.5) ng/ml Urine Color Urine Appearance (Clear) Urine pH (4.5-7.5) Ur Specific [place] (1.000-1.030) Urine Protein (Negative) Urine Glucose (UA) (Negative) Urine Ketones (Negative) Urine Blood (Negative) Urine Nitrite (Negative) Urine Bilirubin (Negative) Urine Urobilinogen (Negative) Ur Leukocyte Esterase (Negative) Urine WBC (Auto) (0-5) /hpf Urine RBC (Auto) (0-4) /hpf U Hyaline Cast (Auto) (0-5) /lpf U Epithel Cells (Auto) (0-5) /lpf Urine Bacteria (Auto) (Negative) Urine Crystals Calcium Oxalate Crystal (None Prsent) Urine Opiates Screen (Neg) Ur Methadone, Qual (Neg) Urine Barbiturates (Neg) Ur Phencyclidine (PCP) (Neg) U Amphetamin/Meth Scrn (Neg) MDMA (Ecstasy) Screen (Neg) U Benzodiazepines Scrn (Neg) Ur Cocaine Metabolite (Neg) U Marijuana (THC) Screen (Neg) Ethyl Alcohol mg/dL < 10.0 (<10.0) mg/dl SARS-CoV-2, RNA, NAAT (NEGATIVE) 10/05/22 10/05/22 10/05/22 Range/Units 09:24 09:24 09:24 WBC 7.36 (4.8-10.8) K/ul RBC 3.75 L (4.20-5.40) M/uL Hgb 12.3 (12.0-16.0) g/dl Hct 37.9 (37.0-47.0) % MCV 101.1 H (80.0-100.0) fL MCH 32.8 (25.0-34.0) pg MCHC 32.5 (32.0-36.0) g/dL RDW Std Deviation 53.5 H (36.4-46.3) fL RDW Coeff of Julia 14.2 (11.5-14.5) % Plt Count 139 (130-400) K/uL MPV 11.4 (9.4-12.4) fL Immature Gran % (Auto) 0.4 % Neut % (Auto) 74.0 % Lymph % (Auto) 17.5 % [place] % (Auto) 7.3 % Eos % (Auto) 0.4 % Baso % (Auto) 0.4 % Neut # (Auto) 5.44 (1.40-6.50) K/uL Lymph # (Auto) 1.29 (1.2-3.4) K/uL [place] # (Auto) 0.54 (0.11-0.59) K/uL Eos # (Auto) 0.03 (0-0.50) K/uL Baso # (Auto) 0.03 (0-0.2) K/uL Immature Gran # (Auto) 0.03 (0.01-0.20) K/uL PT 11.3 (9.0-12.0) Seconds INR 1.0 (0.9-1.1) APTT 25.1 (21.0-31.0) Seconds PTT Ratio 0.9 VBG pH (7.36-7.41) VBG pCO2 (38-50) mmHg VBG pO2 mmHg VBG HCO3 mmol/L VBG O2 Saturation % VBG Base Excess mEq/L Sodium (136-145) mmol/L Potassium (3.5-5.1) mmol/L Chloride (98-107) mmol/L Carbon Dioxide (21-32) mmol/L Anion Gap (3-11) BUN (6-23) mg/dl Creatinine (0.6-1.2) mg/dl Est Cr Clr Drug Dosing ml/min Est GFR ( Amer) ml/min Est GFR (Non-Af Amer) ml/min BUN/Creatinine Ratio (10-20) Glucose (70-99(Fasting)) mg/dl POC Glucose (70-99) mg/dl Lactate 0.9 (0.4-2.0) mmol/L Calcium (8.6-10.3) mg/dl Magnesium (1.7-2.4) mg/dl Total Bilirubin (0.2-1.0) mg/dl Direct Bilirubin (0-0.2) mg/dl AST (13-39) U/L ALT (7-52) U/L Alkaline Phosphatase (34-104) U/L Total Creatine Kinase (26-192) U/L Troponin I High Sens (0-14) pg/ml Total Protein (6.0-8.3) gm/dl Albumin (3.4-5.0) gm/dl Triglycerides Cholesterol LDL Cholesterol, Calc VLDL Cholesterol, Calc HDL Cholesterol Cholesterol/HDL Ratio Procalcitonin (0-0.5) ng/ml Urine Color Urine Appearance (Clear) Urine pH (4.5-7.5) Ur Specific [place] (1.000-1.030) Urine Protein (Negative) Urine Glucose (UA) (Negative) Urine Ketones (Negative) Urine Blood (Negative) Urine Nitrite (Negative) Urine Bilirubin (Negative) Urine Urobilinogen (Negative) Ur Leukocyte Esterase (Negative) Urine WBC (Auto) (0-5) /hpf Urine RBC (Auto) (0-4) /hpf U Hyaline Cast (Auto) (0-5) /lpf U Epithel Cells (Auto) (0-5) /lpf Urine Bacteria (Auto) (Negative) Urine Crystals Calcium Oxalate Crystal (None Prsent) Urine Opiates Screen (Neg) Ur Methadone, Qual (Neg) Urine Barbiturates (Neg) Ur Phencyclidine (PCP) (Neg) U Amphetamin/Meth Scrn (Neg) MDMA (Ecstasy) Screen (Neg) U Benzodiazepines Scrn (Neg) Ur Cocaine Metabolite (Neg) U Marijuana (THC) Screen (Neg) Ethyl Alcohol mg/dL (<10.0) mg/dl SARS-CoV-2, RNA, NAAT (NEGATIVE) 10/05/22 10/05/22 10/05/22 Range/Units 09:24 09:24 10:02 WBC (4.8-10.8) K/ul RBC (4.20-5.40) M/uL Hgb (12.0-16.0) g/dl Hct (37.0-47.0) % MCV (80.0-100.0) fL MCH (25.0-34.0) pg MCHC (32.0-36.0) g/dL RDW Std Deviation (36.4-46.3) fL RDW Coeff of Julia (11.5-14.5) % Plt Count (130-400) K/uL MPV (9.4-12.4) fL Immature Gran % (Auto) % Neut % (Auto) % Lymph % (Auto) % [place] % (Auto) % Eos % (Auto) % Baso % (Auto) % Neut # (Auto) (1.40-6.50) K/uL Lymph # (Auto) (1.2-3.4) K/uL [place] # (Auto) (0.11-0.59) K/uL Eos # (Auto) (0-0.50) K/uL Baso # (Auto) (0-0.2) K/uL Immature Gran # (Auto) (0.01-0.20) K/uL PT (9.0-12.0) Seconds INR (0.9-1.1) APTT (21.0-31.0) Seconds PTT Ratio VBG pH (7.36-7.41) VBG pCO2 (38-50) mmHg VBG pO2 mmHg VBG HCO3 mmol/L VBG O2 Saturation % VBG Base Excess mEq/L Sodium (136-145) mmol/L Potassium (3.5-5.1) mmol/L Chloride (98-107) mmol/L Carbon Dioxide (21-32) mmol/L Anion Gap (3-11) BUN (6-23) mg/dl Creatinine (0.6-1.2) mg/dl Est Cr Clr Drug Dosing ml/min Est GFR ( Amer) ml/min Est GFR (Non-Af Amer) ml/min BUN/Creatinine Ratio (10-20) Glucose (70-99(Fasting)) mg/dl POC Glucose (70-99) mg/dl Lactate (0.4-2.0) mmol/L Calcium (8.6-10.3) mg/dl Magnesium (1.7-2.4) mg/dl Total Bilirubin (0.2-1.0) mg/dl Direct Bilirubin (0-0.2) mg/dl AST (13-39) U/L ALT (7-52) U/L Alkaline Phosphatase (34-104) U/L Total Creatine Kinase (26-192) U/L Troponin I High Sens (0-14) pg/ml Total Protein (6.0-8.3) gm/dl Albumin (3.4-5.0) gm/dl Triglycerides Cancelled Cholesterol Cancelled LDL Cholesterol, Calc Cancelled VLDL Cholesterol, Calc Cancelled HDL Cholesterol Cancelled Cholesterol/HDL Ratio Cancelled Procalcitonin < 0.05 (0-0.5) ng/ml Urine Color Yellow Urine Appearance Clear (Clear) Urine pH 5.0 (4.5-7.5) Ur Specific [place] 1.018 (1.000-1.030) Urine Protein 1+ H (Negative) Urine Glucose (UA) Negative (Negative) Urine Ketones Negative (Negative) Urine Blood 3+ H (Negative) Urine Nitrite Negative (Negative) Urine Bilirubin Negative (Negative) Urine Urobilinogen Negative (Negative) Ur Leukocyte Esterase Negative (Negative) Urine WBC (Auto) 0 (0-5) /hpf Urine RBC (Auto) 0-4 (0-4) /hpf U Hyaline Cast (Auto) 1-5 (0-5) /lpf U Epithel Cells (Auto) 5-10 H (0-5) /lpf Urine Bacteria (Auto) Negative (Negative) Urine Crystals Not Reportable Calcium Oxalate Crystal Present A (None Prsent) Urine Opiates Screen (Neg) Ur Methadone, Qual (Neg) Urine Barbiturates (Neg) Ur Phencyclidine (PCP) (Neg) U Amphetamin/Meth Scrn (Neg) MDMA (Ecstasy) Screen (Neg) U Benzodiazepines Scrn (Neg) Ur Cocaine Metabolite (Neg) U Marijuana (THC) Screen (Neg) Ethyl Alcohol mg/dL (<10.0) mg/dl SARS-CoV-2, RNA, NAAT (NEGATIVE) 10/05/22 10/05/22 10/05/22 Range/Units 10:02 10:21 11:00 WBC (4.8-10.8) K/ul RBC (4.20-5.40) M/uL Hgb (12.0-16.0) g/dl Hct (37.0-47.0) % MCV (80.0-100.0) fL MCH (25.0-34.0) pg MCHC (32.0-36.0) g/dL RDW Std Deviation (36.4-46.3) fL RDW Coeff of Julia (11.5-14.5) % Plt Count (130-400) K/uL MPV (9.4-12.4) fL Immature Gran % (Auto) % Neut % (Auto) % Lymph % (Auto) % [place] % (Auto) % Eos % (Auto) % Baso % (Auto) % Neut # (Auto) (1.40-6.50) K/uL Lymph # (Auto) (1.2-3.4) K/uL [place] # (Auto) (0.11-0.59) K/uL Eos # (Auto) (0-0.50) K/uL Baso # (Auto) (0-0.2) K/uL Immature Gran # (Auto) (0.01-0.20) K/uL PT (9.0-12.0) Seconds INR (0.9-1.1) APTT (21.0-31.0) Seconds PTT Ratio VBG pH (7.36-7.41) VBG pCO2 (38-50) mmHg VBG pO2 mmHg VBG HCO3 mmol/L VBG O2 Saturation % VBG Base Excess mEq/L Sodium (136-145) mmol/L Potassium (3.5-5.1) mmol/L Chloride (98-107) mmol/L Carbon Dioxide (21-32) mmol/L Anion Gap (3-11) BUN (6-23) mg/dl Creatinine (0.6-1.2) mg/dl Est Cr Clr Drug Dosing ml/min Est GFR ( Amer) ml/min Est GFR (Non-Af Amer) ml/min BUN/Creatinine Ratio (10-20) Glucose (70-99(Fasting)) mg/dl POC Glucose 82 (70-99) mg/dl Lactate (0.4-2.0) mmol/L Calcium (8.6-10.3) mg/dl Magnesium (1.7-2.4) mg/dl Total Bilirubin (0.2-1.0) mg/dl Direct Bilirubin (0-0.2) mg/dl AST (13-39) U/L ALT (7-52) U/L Alkaline Phosphatase (34-104) U/L Total Creatine Kinase (26-192) U/L Troponin I High Sens (0-14) pg/ml Total Protein (6.0-8.3) gm/dl Albumin (3.4-5.0) gm/dl Triglycerides Cholesterol LDL Cholesterol, Calc VLDL Cholesterol, Calc HDL Cholesterol Cholesterol/HDL Ratio Procalcitonin (0-0.5) ng/ml Urine Color Urine Appearance (Clear) Urine pH (4.5-7.5) Ur Specific [place] (1.000-1.030) Urine Protein (Negative) Urine Glucose (UA) (Negative) Urine Ketones (Negative) Urine Blood (Negative) Urine Nitrite (Negative) Urine Bilirubin (Negative) Urine Urobilinogen (Negative) Ur Leukocyte Esterase (Negative) Urine WBC (Auto) (0-5) /hpf Urine RBC (Auto) (0-4) /hpf U Hyaline Cast (Auto) (0-5) /lpf U Epithel Cells (Auto) (0-5) /lpf Urine Bacteria (Auto) (Negative) Urine Crystals Calcium Oxalate Crystal (None Prsent) Urine Opiates Screen Pos H (Neg) Ur Methadone, Qual Neg (Neg) Urine Barbiturates Neg (Neg) Ur Phencyclidine (PCP) Neg (Neg) U Amphetamin/Meth Scrn Neg (Neg) MDMA (Ecstasy) Screen Neg (Neg) U Benzodiazepines Scrn Neg (Neg) Ur Cocaine Metabolite Neg (Neg) U Marijuana (THC) Screen Neg (Neg) Ethyl Alcohol mg/dL (<10.0) mg/dl SARS-CoV-2, RNA, NAAT NEGATIVE (NEGATIVE) 10/05/22 10/05/22 Range/Units 12:48 12:52 WBC (4.8-10.8) K/ul RBC (4.20-5.40) M/uL Hgb (12.0-16.0) g/dl Hct (37.0-47.0) % MCV (80.0-100.0) fL MCH (25.0-34.0) pg MCHC (32.0-36.0) g/dL RDW Std Deviation (36.4-46.3) fL RDW Coeff of Julia (11.5-14.5) % Plt Count (130-400) K/uL MPV (9.4-12.4) fL Immature Gran % (Auto) % Neut % (Auto) % Lymph % (Auto) % [place] % (Auto) % Eos % (Auto) % Baso % (Auto) % Neut # (Auto) (1.40-6.50) K/uL Lymph # (Auto) (1.2-3.4) K/uL [place] # (Auto) (0.11-0.59) K/uL Eos # (Auto) (0-0.50) K/uL Baso # (Auto) (0-0.2) K/uL Immature Gran # (Auto) (0.01-0.20) K/uL PT (9.0-12.0) Seconds INR (0.9-1.1) APTT (21.0-31.0) Seconds PTT Ratio VBG pH (7.36-7.41) VBG pCO2 (38-50) mmHg VBG pO2 mmHg VBG HCO3 mmol/L VBG O2 Saturation % VBG Base Excess mEq/L Sodium (136-145) mmol/L Potassium (3.5-5.1) mmol/L Chloride (98-107) mmol/L Carbon Dioxide (21-32) mmol/L Anion Gap (3-11) BUN (6-23) mg/dl Creatinine (0.6-1.2) mg/dl Est Cr Clr Drug Dosing ml/min Est GFR ( Amer) ml/min Est GFR (Non-Af Amer) ml/min BUN/Creatinine Ratio (10-20) Glucose (70-99(Fasting)) mg/dl POC Glucose (70-99) mg/dl Lactate 0.9 (0.4-2.0) mmol/L Calcium (8.6-10.3) mg/dl Magnesium (1.7-2.4) mg/dl Total Bilirubin (0.2-1.0) mg/dl Direct Bilirubin (0-0.2) mg/dl AST (13-39) U/L ALT (7-52) U/L Alkaline Phosphatase (34-104) U/L Total Creatine Kinase 3432 H (26-192) U/L Troponin I High Sens (0-14) pg/ml Total Protein (6.0-8.3) gm/dl Albumin (3.4-5.0) gm/dl Triglycerides Cholesterol LDL Cholesterol, Calc VLDL Cholesterol, Calc HDL Cholesterol Cholesterol/HDL Ratio Procalcitonin (0-0.5) ng/ml Urine Color Urine Appearance (Clear) Urine pH (4.5-7.5) Ur Specific [place] (1.000-1.030) Urine Protein (Negative) Urine Glucose (UA) (Negative) Urine Ketones (Negative) Urine Blood (Negative) Urine Nitrite (Negative) Urine Bilirubin (Negative) Urine Urobilinogen (Negative) Ur Leukocyte Esterase (Negative) Urine WBC (Auto) (0-5) /hpf Urine RBC (Auto) (0-4) /hpf U Hyaline Cast (Auto) (0-5) /lpf U Epithel Cells (Auto) (0-5) /lpf Urine Bacteria (Auto) (Negative) Urine Crystals Calcium Oxalate Crystal (None Prsent) Urine Opiates Screen (Neg) Ur Methadone, Qual (Neg) Urine Barbiturates (Neg) Ur Phencyclidine (PCP) (Neg) U Amphetamin/Meth Scrn (Neg) MDMA (Ecstasy) Screen (Neg) U Benzodiazepines Scrn (Neg) Ur Cocaine Metabolite (Neg) U Marijuana (THC) Screen (Neg) Ethyl Alcohol mg/dL (<10.0) mg/dl SARS-CoV-2, RNA, NAAT (NEGATIVE) Administered Medications Discontinued Medications Levetiracetam 1,400 mg/ Sodium (Chloride) 114 mls @ 440 mls/hr IV NOW STA Stop: 10/05/22 10:28 Last Infusion: 10/05/22 10:55 Dose: 0 mls/hr Documented By: Admin: 10/05/22 10:38 Dose: 440 mls/hr Documented By: LLUVIA Sodium Chloride (Nss 1000ml) 1,000 mls @ 999 mls/hr IV .Q1H1M ONE Stop: 10/05/22 11:26 Last Infusion: 10/05/22 11:43 Dose: 0 mls/hr Documented By: Admin: 10/05/22 10:37 Dose: 999 mls/hr Documented By: LLUVIA Lorazepam (Lorazepam 2 Mg/1 Ml Vial) Confirm Administered Dose 2 mg .ROUTE .STK- MED ONE Stop: 10/05/22 10:14 Last Admin: 10/05/22 10:42 Dose: Not Given Documented By: LLUVIA Lorazepam (Lorazepam 2 Mg/1 Ml Vial) 1 mg IV NOW STA Stop: 10/05/22 10:40 Last Admin: 10/05/22 10:42 Dose: 1 mg Documented By: LLUVIA Imaging Data Attestation: I personally reviewed and interpreted this imaging study as follows: My Impression: CT of the head was obtained in the emergency department. My interpretation is no intracranial hemorrhage, no mass effect, final report below. Radiologist's Impression: Cervical Spine CT 10/05/22 09:16 CT SCAN OF THE CERVICAL SPINE CLINICAL HISTORY: Change in mental status. Found down. Possible fall. COMPARISON STUDY: Chest CT dated 08/18/2020. TECHNIQUE: CT scan of the cervical spine is performed from the skull base to the upper thoracic spine. Images are reviewed in the axial, sagittal, and coronal planes. IV contrast was not administered for this examination. A dose lowering technique was utilized adhering to the principles of ALARA. The examination is degraded by motion artifact. CT DOSE: 1436.21 mGy.cm FINDINGS: Skeletal structures: The skeletal structures are osteopenic. There is no evidence of fracture or subluxation involving the cervical spine. Vertebral body height and alignment are maintained. There is straightening of the cervical lordosis. Anterior osteophytes are seen throughout. The odontoid process and lateral masses are intact. The atlantoaxial articulation is preserved noting advanced productive degenerative change. The spinous processes appear intact. There is a mild chronic superior endplate compression deformity of T3. There is moderate multilevel cervical spondylosis. Uncovertebral and facet arthropathy contribute to neural foraminal narrowing at several levels. Intervertebral discs: There is moderate disc space narrowing at C5-C6. Mild narrowing is seen at the remaining cervical levels. Central canal: A posterior disc osteophyte complex at C5-C6 may contribute to acquired compromise of the central canal. Soft tissues: The prevertebral and paraspinous soft tissues are within normal limits. There is atherosclerotic calcification of the carotid bulbs. Pacemaker leads are seen at the left thoracic inlet. Calvarium: The visualized calvarium at the skull base appears intact. Brain parenchyma: Partially visualized brain parenchyma at the skull base is wi thin normal limits. Sinuses and mastoids: The visualized paranasal sinuses are clear. The mastoid air cells are well pneumatized. Lung apices: Clear as visualized. IMPRESSION: 1. There is no evidence of fracture or subluxation involving the cervical spine. 2. Osteopenia and spondylotic change as above. ACT 112: Negative or not required by law. Electronically signed by: Saeed Guallpa M.D. 10/05/2022 10:[address] 10/05/22 09:16 CT head/brain wo con CLINICAL HISTORY: 77 years-old Female with ams. Acutely altered mental status TECHNIQUE: Multiple axial CT images of the head were obtained without contrast. A dose lowering technique was utilized adhering to the principles of ALARA. COMPARISON: CT cervical spine of same day, head CT 03/30/2017 FINDINGS: No acute intracranial hemorrhage, midline shift, intracranial mass, hydrocephalus, territorial ischemia or abnormal extra-axial collection. Involutional changes with chronic microvascular ischemic disease. The study is motion degraded. There is also streak artifact from the patient's bilateral rings. The calvarium is intact. Prior bilateral lens repair. Asymmetric soft tissue fullness is noted within the right nasopharynx nasopharynx measuring 2.9 x 1.9 cm, similar in appearance to the 2017 study. The paranasal sinuses, mastoid air cells, and middle ear cavities are clear. IMPRESSION: 1. Motion degraded exam without acute intracranial abnormality identified. 2. Indeterminate asymmetric soft tissue fullness within the right nasopharynx. Correlation with direct visualization recommended in order to exclude an underlying mucosal lesion.. ACT 112: Negative or not required by law. The above report was generated using voice recognition software. It may contain grammatical, syntax or spelling errors. Electronically signed by: Gurdeep Claros M.D. 10/05/2022 10:02 AM Chest X-Ray 10/05/22 09:17 XR chest 1V not portable CLINICAL HISTORY: Sepsis TECHNIQUE: Single frontal radiograph of the chest was obtained. Comparison: Comparison is made to chest radiograph 08/16/2030 FINDINGS: Pacemaker defibrillator is seen. Cardiomegaly is noted. The aortic arch is calcified. Reticular interstitial opacities are seen. No evidence of pleural effusion or pneumothorax. IMPRESSION: Interstitial disease without evidence of pneumonia. ACT 112: Negative or not required by law. Electronically signed by: Dennis Tobar M.D. 10/05/2022 11:46 AM Hip/Pelvis X-Ray 10/05/22 09:22 XR hip LT 2V w pelvis CLINICAL HISTORY: found on floor TECHNIQUE: 2 views of the left hip and single frontal view of the pelvis were obtained. Comparison: None available at the time of this dictation. FINDINGS: There is no evidence of an acute fracture. Degenerative changes are seen in the hip joint. No soft tissue abnormality is seen. IMPRESSION: Degenerative changes without evidence of acute abnormality. ACT 112: Negative or not required by law. Electronically signed by: Dennis Tobar M.D. 10/05/2022 11:40 AM Discharge Plan Visit Data Chief Complaint: Fall ED Provider: Rudolph Dukes Discharge Problem: Seizure, MARIELLA (acute kidney injury), Rhabdomyolysis, Acute dehydration Patient Disposition: Being Evaluated by Hospitalist Discharge Instructions Interventions: ED Discharge Assessment Last Done: 10/05/22 13:47 Forms Stand Alone Forms: Training Advisor Prescriptions Prescriptions: No Action clonidine HCl 0.1 mg Tablet 0 mg PO DAILY Qty: 0 Rx Instructions: Patient takes 0.5 tablet by mouth once daily aspirin 81 mg Tablet,Delayed Release (Dr/Ec) 81 mg PO DAILY Qty: 0 pantoprazole 40 mg Tablet,Delayed Release (Dr/Ec) 40 mg PO DAILY Qty: 30 nitroglycerin 0.4 mg Tablet, Sublingual 0.4 mg sublingual UD Qty: 0 lisinopril 20 mg Tablet 20 mg PO DAILY Qty: 0 metoprolol succinate 100 mg Tablet Extended Release 24 Hr 100 mg PO DAILY Qty: 0 albuterol sulfate 90 mcg/actuation Hfa Aerosol Inhaler 2 puff INHALATION Q4H Qty: 0 trazodone 50 mg tablet 25 mg PO HS oxycodone 5 mg tablet 5 mg PO QID PRN (Reason: Severe Pain (Scale Score 7-10)) furosemide 40 mg tablet 40 mg PO DAILY atorvastatin 40 mg tablet 40 mg PO DAILY nystatin 100,000 unit/gram ointment 1 applic TOPICAL BID venlafaxine 150 mg capsule,extended release 24hr 150 mg PO DAILY cyanocobalamin (vitamin B-12) 1,000 mcg Tablet 1,000 mcg PO QAM potassium chloride 20 mEq tablet,ER particles/crystals 20 meq PO DAILY gabapentin 300 mg capsule 300 mg PO TID Referrals Referrals: Roman Ennis MD [Primary Care Provider] -
[2022-10-05 09:30] LABS: Base Excess VBG -2.1 mEq/L; HCO3 VBG 27 mmol/L; Oxygen Saturation VBG < 60.0 %; PCO2 VBG 64 mmHg (38-50); PO2 VBG 24 mmHg; pH VBG 7.23 (7.36-7.41)
[2022-10-05 09:46] LABS: Basophils # (auto) 0.03 K/uL (0-0.2); Basophils % (auto) 0.4 %; Eosinophils # (auto) 0.03 K/uL (0-0.50); Eosinophils % (auto) 0.4 %; Hematocrit (blood only) 37.9 % (37.0-47.0); Hemoglobin 12.3 g/dl (12.0-16.0); Immature Granulocytes # (auto) 0.03 K/uL (0.01-0.20); Immature Granulocytes % (auto) 0.4 %; Lymphocytes # (auto) 1.29 K/uL (1.2-3.4); Lymphocytes % (auto) 17.5 %; Mean Corpuscular Hemoglobin 32.8 pg (25.0-34.0); Mean Corpuscular Hgb Conc 32.5 g/dL (32.0-36.0); Mean Corpuscular Volume 101.1 fL (80.0-100.0); Mean Platelet Volume 11.4 fL (9.4-12.4); Monocytes # (auto) 0.54 K/uL (0.11-0.59); Monocytes % (auto) 7.3 %; Neutrophils # (auto) 5.44 K/uL (1.40-6.50); Platelet Count 139 K/uL (130-400); RDW Coefficient of Variation 14.2 % (11.5-14.5); RDW Standard Deviation 53.5 fL (36.4-46.3); Red Blood Count 3.75 M/uL (4.20-5.40); White Blood Count 7.36 K/ul (4.8-10.8)
--- NOTE | 2022-10-05 10:02 | CT Scan Report ---
CT SCAN OF THE CERVICAL SPINE CLINICAL HISTORY: Change in mental status. Found down. Possible fall. COMPARISON STUDY: Chest CT dated 08/18/2020. TECHNIQUE: CT scan of the cervical spine is performed from the skull base to the upper thoracic spine . Images are reviewed in the axial, sagittal, and coronal planes. IV contrast was not administered fo r this examination. A dose lowering technique was utilized adhering to the principles of ALARA. The examination is degraded by motion artifact. CT DOSE: 1436.21 mGy.cm FINDINGS: Skeletal structures: The skeletal structures are osteopenic. There is no evidence of fracture or subl uxation involving the cervical spine. Vertebral body height and alignment are maintained. There is st raightening of the cervical lordosis. Anterior osteophytes are seen throughout. The odontoid process and lateral masses are intact. The atlantoaxial articulation is preserved noting advanced productive degenerative change. The spinous processes appear intact. There is a mild chronic superior endplate c ompression deformity of T3. There is moderate multilevel cervical spondylosis. Uncovertebral and face t arthropathy contribute to neural foraminal narrowing at several levels. Intervertebral discs: There is moderate disc space narrowing at C5-C6. Mild narrowing is seen at the remaining cervical levels. Central canal: A posterior disc osteophyte complex at C5-C6 may contribute to acquired compromise of the central canal. Soft tissues: The prevertebral and paraspinous soft tissues are within normal limits. There is athero sclerotic calcification of the carotid bulbs. Pacemaker leads are seen at the left thoracic inlet. Calvarium: The visualized calvarium at the skull base appears intact. Brain parenchyma: Partially visualized brain parenchyma at the skull base is within normal limits. Sinuses and mastoids: The visualized paranasal sinuses are clear. The mastoid air cells are well pneu matized. Lung apices: Clear as visualized. IMPRESSION: 1. There is no evidence of fracture or subluxation involving the cervical spine. 2. Osteopenia and spondylotic change as above. ACT 112: Negative or not required by law. Electronically signed by: Saeed Guallpa M.D. 10/05/2022 10:00 AM
[2022-10-05 10:03] LABS: BUN Creatinine Ratio 22.4 (10-20); Calcium 8.6 mg/dl (8.6-10.3); Creatinine Clr Calc Pharmacy 19.3 ml/min; Est GFR (African American) 24.2 ml/min; Est GFR (Non-African American) 20.9 ml/min; Potassium 4.9 mmol/L (3.5-5.1)
--- NOTE | 2022-10-05 10:04 | CT Scan Report ---
CT head/brain wo con CLINICAL HISTORY: 77 years-old Female with ams. Acutely altered mental status TECHNIQUE: Multiple axial CT images of the head were obtained without contrast. A dose lowering tech nique was utilized adhering to the principles of ALARA. COMPARISON: CT cervical spine of same day, head CT 03/30/2017 FINDINGS: No acute intracranial hemorrhage, midline shift, intracranial mass, hydrocephalus, territorial ischem ia or abnormal extra-axial collection. Involutional changes with chronic microvascular ischemic disea se. The study is motion degraded. There is also streak artifact from the patient's bilateral rings. The calvarium is intact. Prior bilateral lens repair. Asymmetric soft tissue fullness is noted within the right nasopharynx nasopharynx measuring 2.9 x 1.9 cm, similar in appearance to the 2017 study. T he paranasal sinuses, mastoid air cells, and middle ear cavities are clear. IMPRESSION: 1. Motion degraded exam without acute intracranial abnormality identified. 2. Indeterminate asymmetric soft tissue fullness within the right nasopharynx. Correlation with direc t visualization recommended in order to exclude an underlying mucosal lesion.. ACT 112: Negative or not required by law. The above report was generated using voice recognition software. It may contain grammatical, syntax o r spelling errors. Electronically signed by: Gurdeep Claros M.D. 10/05/2022 10:02 AM
[2022-10-05 10:09] LABS: Troponin I High Sensitivity 9.8 pg/ml (0-14)
[2022-10-05] MEDS ORDERED: SODIUM CHLORIDE 0.9% IV STA (10:13)
[2022-10-05] MEDS ORDERED: LEVETIRACETAM IV STA (10:13)
[2022-10-05] MEDS ORDERED: LORazepam 2 MG/1 ML VIAL ONE (10:13)
[2022-10-05 10:16] LABS: Partial Thromboplastin Ratio 0.9; Partial Thromboplastin Time 25.1 Seconds (21.0-31.0); Prothrombin Time 11.3 Seconds (9.0-12.0)
[2022-10-05 10:19] LABS: Appearance Urine Clear (Clear); Bacteria Urine Automated Negative (Negative); Bilirubin Urine Negative (Negative); Blood Urine 3+ (Negative); Color Urine Yellow; Glucose Urine UA Negative (Negative); Ketones Urine Negative (Negative); Leukocyte Esterase Urine Negative (Negative); Nitrite Urine Negative (Negative); Protein Urine 1+ (Negative); RBC Urine Automated 0-4 /hpf (0-4); Specific Gravity Urine 1.018 (1.000-1.030); Urobilinogen Urine Negative (Negative); WBC Urine Automated 0 /hpf (0-5)
[2022-10-05 10:22] LABS: Albumin Level 3.8 gm/dl (3.4-5.0); Bilirubin Direct 0.1 mg/dl (0-0.2); Bilirubin,Total 0.2 mg/dl (0.2-1.0); Total Protein 6.3 gm/dl (6.0-8.3)
[2022-10-05] MEDS ORDERED: SODIUM CHLORIDE 0.9% 1000ML 1,000 ML IV ONE (10:26)
--- NOTE | 2022-10-05 10:31 | Electrocardiogram Report ---
Test Reason : Blood Pressure : / mmHG Vent. Rate : 080 BPM Atrial Rate : 080 BPM P-R Int : 164 ms QRS Dur : 136 ms QT Int : 430 ms P-R-T Axes : 108 232 116 degrees QTc Int : 495 ms Atrial-sensed ventricular-paced rhythm Abnormal ECG When compared with ECG of 18-AUG-2020 06:31, Vent. rate has increased BY 13 BPM Confirmed by Craig Frias ([id number]) on 10/05/2022 10:31:16 AM Referred By: Confirmed By:Krish Frias
[2022-10-05] MEDS ORDERED: LORazepam 2 MG/1 ML VIAL IV STA (10:39)
[2022-10-05 10:55] LABS: Calcium Oxalate Crystals Urine Present (None Prsent)
[2022-10-05 11:33] LABS: Amphetamines+Metham, Urine Neg (Neg); Barbiturates, Urine Neg (Neg); Benzodiazepine, Urine Neg (Neg); Cocaine, Urine Neg (Neg); MDMA (Ecstacy), Urine Neg (Neg); Methadone, Urine Neg (Neg); Opiate, Urine Pos (Neg); Phencyclidine, Urine Neg (Neg)
--- NOTE | 2022-10-05 11:41 | XRay Report ---
XR hip LT 2V w pelvis CLINICAL HISTORY: found on floor TECHNIQUE: 2 views of the left hip and single frontal view of the pelvis were obtained. Comparison: None available at the time of this dictation. FINDINGS: There is no evidence of an acute fracture. Degenerative changes are seen in the hip joint. No soft ti ssue abnormality is seen. IMPRESSION: Degenerative changes without evidence of acute abnormality. ACT 112: Negative or not required by law. Electronically signed by: Dennis Tobar M.D. 10/05/2022 11:40 AM
--- NOTE | 2022-10-05 11:47 | XRay Report ---
XR chest 1V not portable CLINICAL HISTORY: Sepsis TECHNIQUE: Single frontal radiograph of the chest was obtained. Comparison: Comparison is made to chest radiograph 08/16/2030 FINDINGS: Pacemaker defibrillator is seen. Cardiomegaly is noted. The aortic arch is calcified. Reticular inter stitial opacities are seen. No evidence of pleural effusion or pneumothorax. IMPRESSION: Interstitial disease without evidence of pneumonia. ACT 112: Negative or not required by law. Electronically signed by: Dennis Tobar M.D. 10/05/2022 11:46 AM
[2022-10-05] MEDS ORDERED: MAGNESIUM HYDROXIDE SUSP 30 ML UDC PO PRN (12:12)
[2022-10-05] MEDS ORDERED: ONDANSETRON INJ 2 MG/ML 2 ML VIAL IV PRN (12:12)
[2022-10-05] MEDS ORDERED: POLYETHYLENE (MIRALAX) 17 GM PACK PO PRN (12:12)
[2022-10-05] MEDS ORDERED: ALUMINUM/MAGNESIUM SUSP 30 ML UDC PO PRN (12:12)
--- NOTE | 2022-10-05 12:25 | History & Physical Report ---
Date of Service October 05, 2022 Assessment & Plan (1) Altered mental status: (2) MARIELLA (acute kidney injury): (3) CKD (chronic kidney disease), stage III: (4) COPD, group C, by GOLD 2017 classification: (5) Respiratory acidosis: (6) CAD (coronary artery disease): (7) Ischemic cardiomyopathy: (8) HTN (hypertension): (9) Hyperlipidemia: (10) Chronic pain: Plan 77 year old presented with AMS; found down at home. Work up for AMS, MARIELLA, possible seizures, and syncope as cause. Pt does have a ventricular pacer; will interrogate. 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 Pt independent at baseline. Altered mental status: Seizure like activity: last known well 3 days prior; found down by daughter. Narcan admin by EMS; little change. AAOx3 in ED; noted rhythmic 'seizure like activity' head CT: soft tissue inflammation; direct visual imaging recommended d/t possible underlying mucosal lesion MRI brain not performed due to pacer EEG ordered Seizure precautions ordered NPO Neuro consult placed; discussed with Dr. Winter via tiger text MARIELLA superimposed on CKD stage III: Creatinine 2.23; baseline 1.4 Suspect related to dehydration Renal US to r/o nephrolithiasis Total 1.8L in ED; appears euvolemic; keep on NSS @80mL/hour; recheck BMP at 1800 CK 2701; repeat in AM COPD with hypercapnia: Respiratory acidosis: Does not wear baseline supplemental O2; VBG done pH 7.23, CO2 64, HCO3 27; respiratory acidosis; place on Bipap ABG after 2 hours on Bipap; ordered for 150 CAD: Ischemic cardiomyopathy: AAA: HTN: Has V-pacer; will interrogate to r/o syncopal cause Recently had an aortic duplex scan on 09/22: 3.0 cm x 3.0 cm abdominal aortic aneurysm. ECHO: EF 60-65% with trace AR, no pHTN, normal LV wall motion. Takes Lisinopril; hold for now due to MARIELLA Takes Lasix daily; continue Takes Clonidine; continue appears euvolemic HLD: Takes Atorvastatin; continue Check lipid panel Chronic pain: Sciatica and feet neuropathy Current Pain Medications: Oxycodone 5 mg PRN, Venlafaxine, Gabapentin and Trazadone HOLD Oxycodone, Gabapentin, and Oxy for AMS; reassess with mental status improves Knee erythema: No leukocytosis WBC 7.36 Lactate 0.9 Will start Ceftriaxone; continue x5 days Does not appear any opportunity for wound culture R>L leg swelling; venous Doppler US ordered to r/o DVT GERD: Takes Protonic; continue Disposition: PCP: Dr. Ennis CODE STATUS: Full code VTE prophylaxis: TEDS and SCDS for now; may transition to heparin pending imaging testing I spent a total of 87 minutes coordinating, documenting, and providing care for this patient excluding time spent in the performance of separately billed services. All of the aforementioned completed while collaborating with the assigned attending physician for a full treatment plan. Please see their addendum for further details. History of Present Illness Chief Complaint: altered mental status Primary Care Provider: Roman Ennis MD Ms. Tong is a 77-year-old female that presented to the [facility] ED via EMS after family found her down on the floor with altered mental status. Patient last well seen 3 days ago. EMS gave Narcan due to chronic oxycodone use for chronic pain with minimal change after administration. Patient does have known history of alcohol use. Patient found to be hypotensive and given 800 mL fluid resuscitation prior to arrival to ED. In the ED, numerous imaging studies performed including cervical spine CT, head CT, chest x-ray, hip pelvic x-ray; all unremarkable outside of osteopenia. On arrival patient was AAO x3 with only complaint being left side pain due to her laying on her left side for numerous days. Patient denies history of seizures. 1L NSB in ED; SBP mid 90s. Nursing reported rhythmic shaking to ED physician started on Keppra and received a total of 3 mg of Ativan over a few hour period. Pt son Earl said she was complaining of not feeling well and had some (approximately 3) episodes of vomiting; was able to tolerate eating toast. Son said she did say it did not have blood in it. Patient VBG respiratory acidosis; pH 7.23, CO2 64. BUN 50, creatinine 2.23 (baseline 1.4), CK 2701, troponin 9.8, procalcitonin negative, drugs screen pending. Recently had an aortic duplex scan on 09/22: 3.0 cm x 3.0 cm abdominal aortic aneurysm. ECHO in ED: EF 60-65% with trace AR, no pHTN, normal LV wall motion. Additional PMH includes: AAA, ischemic cardiomyopathy with left bundle branch block, CAD AMI 2007 status post PCI with stent to RCA, COPD, CKD, osteoarthritis, HLD. Patient does hav chronic sciatica pain; Previous medications that patient took for pain that did not provide relief: Tylenol , Percocet Vicodin and Cymbalta 60 mg daily -nausea. Currently patient takes Oxy PRN, Velafaxine, Gabapentin and Trazadone; will hold sedative meds. Upon examination patient is obtunded likely secondary to Ativan administration. Patient does grimace with pressing on her abdomen and per attending physician who saw her separately did say she had pain in her leg. Patient left leg is greater in size than the right for which we will rule out DVT as she may have had a syncopal episode. Patient unable to participate in ROS. Patient will be admitted for further evaluation and management. Please see A/P for further details. Allergies Allergy/AdvReac Type Severity Reaction Status Date / Time NSAIDS (Non-Steroidal Allergy Severe GI ISSUES Verified 10/05/22 13:35 Anti-Inflamma isosorbide Allergy Unknown VOMIT/HEADA Verified 10/05/22 13:35 CARLOS Gjzgcvl-EWN-QxV Reductase Allergy Unknown LIVER Verified 10/05/22 13:35 Inhibitor FUNCTION [Wezpefq-Cip-Vze Reductase ELEVATES Inhibitor] tramadol Allergy Unknown VOMITING Verified 10/05/22 13:35 Home Medications Medication Instructions Recorded Confirmed Type aspirin 81 mg tablet,delayed 81 mg PO DAILY ##0 03/30/17 10/05/22 History release clonidine HCl 0.1 mg tablet 0.1 mg PO DAILY #0 tabs 03/30/17 10/05/22 History nitroglycerin 0.4 mg sublingual 0.4 mg sublingual UD #0 BTLS 03/30/17 10/05/22 History tablet pantoprazole 40 mg tablet,delayed 40 mg PO DAILY #30 tabs 03/30/17 10/05/22 History release albuterol sulfate 90 mcg/actuation 2 puff inhalation Q4H SOB/Wheezing 07/27/17 10/05/22 History aerosol inhaler ##0 lisinopril 20 mg tablet 20 mg PO DAILY ##0 07/27/17 10/05/22 History metoprolol succinate 100 mg 100 mg PO DAILY #0 tabs 07/27/17 10/05/22 History tablet,extended release 24 hr oxycodone 5 mg tablet 5 mg PO QID PRN Severe Pain (Scale 08/16/20 10/05/22 History Score 7-10) trazodone 50 mg tablet 25 mg PO HS 08/16/20 10/05/22 History atorvastatin 40 mg tablet 40 mg PO DAILY 10/05/22 10/05/22 History cyanocobalamin (vitamin B-12) 1,000 mcg PO QAM 10/05/22 10/05/22 History 1,000 mcg tablet furosemide 40 mg tablet 40 mg PO DAILY 10/05/22 10/05/22 History gabapentin 300 mg capsule 300 mg PO TID 10/05/22 10/05/22 History nystatin 100,000 unit/gram topical 1 applic topical BID Rash on chest 10/05/22 10/05/22 History ointment potassium chloride 20 mEq 20 meq PO DAILY 10/05/22 10/05/22 History tablet,extended release(part/cryst) venlafaxine 150 mg 150 mg PO DAILY 10/05/22 10/05/22 History capsule,extended release 24 hr Past Med/Surg History Medical History (Updated 10/05/22 @ 14:26 by OSCAR Arroyo) Acute anterior wall VT Anxiety CAD (coronary artery disease) "VT 2006. S/P PCI/Stent RCA" Chronic hepatitis C without hepatic coma Chronic pain CKD (chronic kidney disease), stage III COPD, group C, by GOLD 2017 classification Elevated troponin GERD (gastroesophageal reflux disease) H/O cardiac pacemaker HTN (hypertension) Hyperlipidemia Hypoxia Ischemic cardiomyopathy LBBB (left bundle branch block) Migraine OA (osteoarthritis) Respiratory acidosis Surgical History H/O release of tendon H/O: hysterectomy History of carpal tunnel surgery History of implantable cardioverter-defibrillator (ICD) placement Hx of cataract surgery S/P cardiac cath S/P cholecystectomy Family History Father Prostate cancer Heart disease Thyroid disorder Mother Cancer Cervical Coronary heart disease s/p CABG Diabetes Social History (Reviewed 05/17/23 @ 09:19 by FELIX Boateng Smoking Status: Current every day smoker Tobacco Type: Cigarettes packs per day: 0.5; Second Hand Exposure: No; Do You Dip or Chew Tobacco: No; Tobacco Cessation Education Requested by Patient: No Hx Alcohol Use: No Hx Substance Use: No Preferred Language: Kinyarwanda Communication Ability: Effective Bleach Chlorinator Required: No Beliefs That Will Affect Care: None Current Living Situation: Family Other Information That Helps Us Care for You: No Feels Safe at Home: Yes Safety Concerns: Feels Safe At This Time Assistive Devices: None Review of Systems Review of Systems: Unobtainable due to reduced consciousness Physical Exam Physical Exam: Neuro: AAOx4, PERRLA, no aphagia, memory changes, CNII-XII grossly intact HEENT: head normocephalic, moist mucus membranes CV: S1/S2, (-) M/G/R, (-) edema, cap refill < 3 seconds Resp: Lungs CTA in all gutierrez. On RA; placing on bipap for respiratory acidosis GI: Abdomen S/NT/ND, no grimacing with palpation, Ax4 bowel sounds, (-) CVA tenderness Musculoskeletal: unable to participate Skin: (-) rashes , (+) erythema over right knee. Psych: euthymic mood Results & Data Results & Data Vital Signs (Past 12 Hours) Vital Signs Temp Pulse Pulse Resp BP BP Pulse Ox 10/05/22 11:10 77 18 96/72 L 93 10/05/22 10:45 74 16 93/54 L 99 10/05/22 10:36 77 20 94/65 L 97 10/05/22 10:33 79 26 H 92 10/05/22 10:32 80 23 89/50 L 98 10/05/22 10:30 94 H 24 92 10/05/22 10:01 130/56 L 97 10/05/22 10:01 24 10/05/22 10:00 77 20 10/05/22 09:46 122/64 10/05/22 09:46 86 29 H 10/05/22 09:42 77 18 10/05/22 09:20 78 23 96 10/05/22 09:49 93 10/05/22 09:27 79 10/05/22 09:19 36.7 C 86 20 139/83 99 O2 Del Method O2 Flow Rate 10/05/22 11:10 Nasal Cannula 2 10/05/22 10:45 Nasal Cannula 2 10/05/22 10:36 Nasal Cannula 2 10/05/22 10:33 Nasal Cannula 2 10/05/22 10:32 Nasal Cannula 2 10/05/22 10:30 Nasal Cannula 2 10/05/22 10:01 Nasal Cannula 2 10/05/22 10:01 10/05/22 10:00 10/05/22 09:46 10/05/22 09:46 10/05/22 09:42 10/05/22 09:20 10/05/22 09:49 Room Air 10/05/22 09:27 10/05/22 09:19 Room Air Laboratory Results Short CBC 10/05/22 Range/Units 09:24 WBC 7.36 (4.8-10.8) K/ul Hgb 12.3 (12.0-16.0) g/dl Hct 37.9 (37.0-47.0) % Plt Count 139 (130-400) K/uL BMP 10/05/22 09:24 Sodium 138 Potassium 4.9 Chloride 104 Carbon Dioxide 27 BUN 50 H Creatinine 2.23 H Glucose 98 Calcium 8.6 Cardiac Enzymes 10/05/22 Range/Units 09:24 Total Creatine Kinase 2701 H (26-192) U/L Liver Function 10/05/22 Range/Units 09:24 Total Bilirubin 0.2 (0.2-1.0) mg/dl Direct Bilirubin 0.1 (0-0.2) mg/dl AST 41 H (13-39) U/L ALT 17 (7-52) U/L Alkaline Phosphatase 82 (34-104) U/L Albumin 3.8 (3.4-5.0) gm/dl Urine 10/05/22 Range/Units 10:02 Urine Color Yellow Urine Appearance Clear (Clear) Urine pH 5.0 (4.5-7.5) Ur Specific [place] 1.018 (1.000-1.030) Urine Protein 1+ H (Negative) Urine Glucose (UA) Negative (Negative) Diagnostic Findings Cervical Spine CT 10/05/22 09:16 CT SCAN OF THE CERVICAL SPINE CLINICAL HISTORY: Change in mental status. Found down. Possible fall. COMPARISON STUDY: Chest CT dated 08/18/2020. TECHNIQUE: CT scan of the cervical spine is performed from the skull base to the upper thoracic spine. Images are reviewed in the axial, sagittal, and coronal planes. IV contrast was not administered for this examination. A dose lowering technique was utilized adhering to the principles of ALARA. The examination is degraded by motion artifact. CT DOSE: 1436.21 mGy.cm FINDINGS: Skeletal structures: The skeletal structures are osteopenic. There is no evidence of fracture or subluxation involving the cervical spine. Vertebral body height and alignment are maintained. There is straightening of the cervical lordosis. Anterior osteophytes are seen throughout. The odontoid process and lateral masses are intact. The atlantoaxial articulation is preserved noting advanced productive degenerative change. The spinous processes appear intact. There is a mild chronic superior endplate compression deformity of T3. There is moderate multilevel cervical spondylosis. Uncovertebral and facet arthropathy contribute to neural foraminal narrowing at several levels. Intervertebral discs: There is moderate disc space narrowing at C5-C6. Mild narrowing is seen at the remaining cervical levels. Central canal: A posterior disc osteophyte complex at C5-C6 may contribute to acquired compromise of the central canal. Soft tissues: The prevertebral and paraspinous soft tissues are within normal limits. There is atherosclerotic calcification of the carotid bulbs. Pacemaker leads are seen at the left thoracic inlet. Calvarium: The visualized calvarium at the skull base appears intact. Brain parenchyma: Partially visualized brain parenchyma at the skull base is within normal limits. Sinuses and mastoids: The visualized paranasal sinuses are clear. The mastoid air cells are well pneumatized. Lung apices: Clear as visualized. IMPRESSION: 1. There is no evidence of fracture or subluxation involving the cervical spine. 2. Osteopenia and spondylotic change as above. ACT 112: Negative or not required by law. Electronically signed by: Saeed Guallpa M.D. 10/05/2022 10:[address] 10/05/22 09:16 CT head/brain wo con CLINICAL HISTORY: 77 years-old Female with ams. Acutely altered mental status TECHNIQUE: Multiple axial CT images of the head were obtained without contrast. A dose lowering technique was utilized adhering to the principles of ALARA. COMPARISON: CT cervical spine of same day, head CT 03/30/2017 FINDINGS: No acute intracranial hemorrhage, midline shift, intracranial mass, hydrocephalus, territorial ischemia or abnormal extra-axial collection. Involutional changes with chronic microvascular ischemic disease. The study is motion degraded. There is also streak artifact from the patient's bilateral rings. The calvarium is intact. Prior bilateral lens repair. Asymmetric soft tissue fullness is noted within the right nasopharynx nasopharynx measuring 2.9 x 1.9 cm, similar in appearance to the 2017 study. The paranasal sinuses, mastoid air cells, and middle ear cavities are clear. IMPRESSION: 1. Motion degraded exam without acute intracranial abnormality identified. 2. Indeterminate asymmetric soft tissue fullness within the right nasopharynx. Correlation with direct visualization recommended in order to exclude an underlying mucosal lesion.. ACT 112: Negative or not required by law. The above report was generated using voice recognition software. It may contain grammatical, syntax or spelling errors. Electronically signed by: Gurdeep Claros M.D. 10/05/2022 10:02 AM Chest X-Ray 10/05/22 09:17 XR chest 1V not portable CLINICAL HISTORY: Sepsis TECHNIQUE: Single frontal radiograph of the chest was obtained. Comparison: Comparison is made to chest radiograph 08/16/2030 FINDINGS: Pacemaker defibrillator is seen. Cardiomegaly is noted. The aortic arch is calcified. Reticular interstitial opacities are seen. No evidence of pleural effusion or pneumothorax. IMPRESSION: Interstitial disease without evidence of pneumonia. ACT 112: Negative or not required by law. Electronically signed by: Dennis Tobar M.D. 10/05/2022 11:46 AM Hip/Pelvis X-Ray 10/05/22 09:22 XR hip LT 2V w pelvis CLINICAL HISTORY: found on floor TECHNIQUE: 2 views of the left hip and single frontal view of the pelvis were obtained. Comparison: None available at the time of this dictation. FINDINGS: There is no evidence of an acute fracture. Degenerative changes are seen in the hip joint. No soft tissue abnormality is seen. IMPRESSION: Degenerative changes without evidence of acute abnormality. ACT 112: Negative or not required by law. Electronically signed by: Dennis Tobar M.D. 10/05/2022 11:40 AM Code Status & VTE Plan Code Status Full code in the event of cardiac or respiratory arrest. VTE Prophylaxis Plan VTE Prophylaxis will be ordered: Yes Supervising Physician Co-Signing Physician Notes Patient seen and examined independently. Discussed with above provider. Patient is a 77-year-old female with multiple comorbid condition found down at her home. In the ED, patient had seizure-like activity for which she was loaded with Keppra. She was also given IV Ativan. Assessment/plan Fall/syncope at home; questionable seizure. Started on Keppra. Neuro consult. EEG ordered. MRI brain not performed due to pacer. Pacemaker interrogation. Also obtain venous duplex to rule out DVT as her right leg appears to be slightly bigger than her left. MARIELLA, rhabdomyolysis -continue IV fluids. BMP and CK tomorrow AM. Hold Lasix Acute hypercapnic respiratory failure; likely due to hypoventilation secondary to seizure. Placed on BiPAP. Repeat ABG shows improvement. Continue to monitor On antibiotic for right knee erythema.
--- NOTE | 2022-10-05 14:45 | XRay Report ---
XR knee RT 1 or 2V routine HISTORY: 77 years-old Female s/p fall acute right knee pain status post fall COMPARISON: None TECHNIQUE: 2 views of the right knee FINDINGS: Demineralized appearance of the bones. Minimal tricompartment osteoarthritis. No acute fracture, disl ocation or radiopaque foreign body. Arterial calcifications. IMPRESSION: No acute fracture or dislocation. ACT 112: Negative or not required by law. The above report was generated using voice recognition software. It may contain grammatical, syntax o r spelling errors. Electronically signed by: Gurdeep Claros M.D. 10/05/2022 2:44 PM
[2022-10-05] MEDS: cefTRIAXone SODIUM 1,000 MG in DEXTROSE 5% AD-VAN 50 ML IV SCH (15:03)
[2022-10-05] MEDS: SODIUM CHLORIDE 0.9% 1000ML 1,000 ML IV SCH (15:03)
[2022-10-05 16:02] LABS: Base Excess ABG -3.6 mEq/L (-9-1.8); HCO3 ABG 23 mmol/L (19-24); Oxygen Saturation ABG 97.4 % (90-95); PCO2 ABG 48 mmHg (35-46); PO2 ABG 80 mmHg (80-95); pH ABG 7.29 (7.35-7.45)
[2022-10-05 16:08] LABS: Allen Test Pos (Pos)
[2022-10-05 18:47] LABS: BUN Creatinine Ratio 27.2 (10-20); Calcium 8.5 mg/dl (8.6-10.3); Creatinine Clr Calc Pharmacy 28.7 ml/min; Est GFR (African American) 36.7 ml/min; Est GFR (Non-African American) 31.7 ml/min; Potassium 4.7 mmol/L (3.5-5.1)
[2022-10-05] MEDS: levETIRAcetam 500 MG in 0.9 % SODIUM CHLORIDE 100 ML IV SCH (20:43)
[2022-10-05] MEDS ORDERED: GABAPENTIN 300 MG CAP PO SCH (21:00)
--- NOTE | 2022-10-05 21:09 | Ultrasound Report ---
Exam(s): US VENOUS BILATERAL LOWER EXTREMITIES EXAM: US Duplex Bilateral Lower Extremities Veins CLINICAL HISTORY: Reason for exam: rule out DVT. TECHNIQUE: Real-time duplex ultrasound scan of the bilateral lower extremity veins integrating B-mode two-dimensional vascular structure, Doppler spectral analysis, color flow Doppler imaging and compression. COMPARISON: No relevant prior studies available. FINDINGS: Right deep veins: Positive for DVT in 1 of the 2 RIGHT posterior tibial veins. Right superficial veins: Chronic thrombus in the superficial RIGHT greater saphenous vein. Left deep veins: Unremarkable. No DVT in the left common femoral, femoral, proximal deep femoral or popliteal veins. The veins demonstrate normal color flow, are normally compressible, with normal phasic flow and/or augmentation response. Left superficial veins: Unremarkable. No thrombus in the visualized left great saphenous vein. Soft tissues: No acute findings. No popliteal cyst. IMPRESSION: 1. Positive for DVT in 1 of the 2 RIGHT posterior tibial veins. 2. Chronic thrombus in the superficial RIGHT greater saphenous vein. Electronically signed by: Sukhdev Callahan MD 10/05/22 21:09 PM
--- NOTE | 2022-10-05 23:01 | Ultrasound Report ---
ULTRASOUND KIDNEYS AND BLADDER CLINICAL HISTORY: Acute renal insufficiency. COMPARISON STUDY: Abdominal CT dated 08/16/2020 TECHNIQUE: Real-time, grayscale, and color flow sonography of the kidneys and bladder is performed. I mages are reviewed in the transverse and longitudinal planes. FINDINGS: Kidneys: The left kidney was suboptimally assessed due to body habitus. The kidneys are normal in siz e and echotexture. The right kidney measures 9.3 x 4.5 x 5.1 cm and the left kidney measures 8.0 x 4. 3 x 3.6 cm. There is no hydronephrosis. There is a 4 mm nonobstructing right renal calculus. A 1.4 c m cyst is seen in the right upper pole. There is no sonographic evidence of contour deforming renal m ass lesion. No perinephric fluid is identified. Bladder: The bladder is decompressed around a Horne catheter and not well evaluated. IMPRESSION: 1. The kidneys are normal in size and without hydronephrosis. 2. Right-sided nephrolithiasis. 3. The bladder was decompressed around a Horne catheter and not well evaluated. ACT 112: Negative or not required by law. Electronically signed by: Saeed Guallpa M.D. 10/05/2022 10:58 PM
[2022-10-05] MEDS ORDERED: Heparin IV Adult Wt-Based Low-Dose *NO* Bolus Protocol IV SCH (23:24)
[2022-10-05] MEDS: HEPARIN SODIUM/DEXTROSE 25,000 UNITS/500 ML BAG IV SCH (23:40)
[2022-10-06 00:16] LABS: Partial Thromboplastin Ratio 0.9; Partial Thromboplastin Time 24.9 Seconds (21.0-31.0)
[2022-10-06] MEDS: SODIUM CHLORIDE 0.9% 1000ML 1,000 ML IV SCH ×5 (02:34→17:53)
[2022-10-06 06:18] LABS: Hematocrit (blood only) 32.9 % (37.0-47.0); Hemoglobin 10.6 g/dl (12.0-16.0); Mean Corpuscular Hemoglobin 32.9 pg (25.0-34.0); Mean Corpuscular Hgb Conc 32.2 g/dL (32.0-36.0); Mean Corpuscular Volume 102.2 fL (80.0-100.0); Platelet Count 110 K/uL (130-400); RDW Coefficient of Variation 14.4 % (11.5-14.5); RDW Standard Deviation 53.8 fL (36.4-46.3); Red Blood Count 3.22 M/uL (4.20-5.40); White Blood Count 4.69 K/ul (4.8-10.8)
[2022-10-06 06:39] LABS: Albumin Globulin Ratio 1.5 (0.9-2); Albumin Level 3.2 gm/dl (3.4-5.0); BUN Creatinine Ratio 28.4 (10-20); Bilirubin,Total 0.3 mg/dl (0.2-1.0); Calcium 8.2 mg/dl (8.6-10.3); Creatinine Clr Calc Pharmacy 47.7 ml/min; Est GFR (African American) 67.9 ml/min; Est GFR (Non-African American) 58.6 ml/min; Globulin 2.1 gm/dl (2.5-4.0); Potassium 4.1 mmol/L (3.5-5.1); Total Protein 5.3 gm/dl (6.0-8.3)
[2022-10-06 06:47] LABS: Partial Thromboplastin Ratio 1.1; Partial Thromboplastin Time 32.2 Seconds (21.0-31.0)
[2022-10-06] MEDS ORDERED: HEPARIN SOD (PORCINE) 1000 UNIT/ML IV ONE (06:50)
[2022-10-06] MEDS: levETIRAcetam 500 MG in 0.9 % SODIUM CHLORIDE 100 ML IV SCH ×2 (07:53→19:54)
--- NOTE | 2022-10-06 08:05 | Electroencephalogram ---
EEG Procedure Note Date of Service October 06, 2022 Start / End Times Start Time: 726 End Time: 746 Referring Physician OSCAR Zhang History patient is a 77-year-old with history of seizure-like activity and confusion Home Medication List Medication Instructions Recorded Confirmed Type aspirin 81 mg tablet,delayed 81 mg PO DAILY ##0 03/30/17 10/05/22 History release clonidine HCl 0.1 mg tablet 0.1 mg PO DAILY #0 tabs 03/30/17 10/05/22 History nitroglycerin 0.4 mg sublingual 0.4 mg sublingual UD #0 BTLS 03/30/17 10/05/22 History tablet pantoprazole 40 mg tablet,delayed 40 mg PO DAILY #30 tabs 03/30/17 10/05/22 History release albuterol sulfate 90 mcg/actuation 2 puff inhalation Q4H SOB/Wheezing 07/27/17 10/05/22 History aerosol inhaler ##0 lisinopril 20 mg tablet 20 mg PO DAILY ##0 07/27/17 10/05/22 History metoprolol succinate 100 mg 100 mg PO DAILY #0 tabs 07/27/17 10/05/22 History tablet,extended release 24 hr oxycodone 5 mg tablet 5 mg PO QID PRN Severe Pain (Scale 08/16/20 10/05/22 History Score 7-10) trazodone 50 mg tablet 25 mg PO HS 08/16/20 10/05/22 History atorvastatin 40 mg tablet 40 mg PO DAILY 10/05/22 10/05/22 History cyanocobalamin (vitamin B-12) 1,000 mcg PO QAM 10/05/22 10/05/22 History 1,000 mcg tablet furosemide 40 mg tablet 40 mg PO DAILY 10/05/22 10/05/22 History gabapentin 300 mg capsule 300 mg PO TID 10/05/22 10/05/22 History nystatin 100,000 unit/gram topical 1 applic topical BID Rash on chest 10/05/22 10/05/22 History ointment potassium chloride 20 mEq 20 meq PO DAILY 10/05/22 10/05/22 History tablet,extended release(part/cryst) venlafaxine 150 mg 150 mg PO DAILY 10/05/22 10/05/22 History capsule,extended release 24 hr Inpatient Medication List Sodium Chloride (Nss 1000ml) 1,000 mls @ 125 mls/hr IV .Q8H LISHA Stop: 11/04/22 12:44 Last Admin: 10/06/22 07:54 Dose: 125 mls/hr Documented By: Infusion: 10/06/22 07:54 Dose: 125 mls/hr Documented By: Admin: 10/06/22 02:34 Dose: 125 mls/hr Documented By: Infusion: 10/06/22 02:34 Dose: 80 mls/hr Documented By: Infusion: 10/05/22 20:10 Dose: 80 mls/hr Documented By: AIDA(2) Infusion: 10/05/22 19:35 Dose: 0 mls/hr Documented By: AIDA(2) Admin: 10/05/22 15:03 Dose: 80 mls/hr Documented By: DENNYS Levetiracetam 500 mg/ Sodium (Chloride) 105 mls @ 440 mls/hr IV BID LISHA Stop: 11/04/22 20:59 Last Admin: 10/06/22 07:53 Dose: 440 mls/hr Documented By: Infusion: 10/05/22 21:20 Dose: 0 mls/hr Documented By: AIDA(2) Admin: 10/05/22 20:43 Dose: 440 mls/hr Documented By: AIDA(2) Ceftriaxone Sodium 1,000 mg/ (Dextrose) 50 mls @ 100 mls/hr IV Q24H LISHA; Protocol Stop: 10/12/22 14:29 Last Infusion: 10/05/22 15:35 Dose: 0 mls/hr Documented By: Admin: 10/05/22 15:03 Dose: 100 mls/hr Documented By: DENNYS Heparin Sodium/Dextrose (Heparin Sodium/Dextrose) 25,000 units in 500 mls @ 16 mls/hr IV .Q24H LISHA; Protocol Stop: 11/04/22 23:29 Last Titration: 10/06/22 07:09 Dose: 800 units/hr, 16 mls/hr Documented By: AIDA(2) Co-signed By: DENNYS Titration: 10/06/22 06:49 Dose: 800 units/hr, 16 mls/hr Documented By: AIDA(2) Co-signed By: AIDA Admin: 10/05/22 23:40 Dose: 700 units/hr, 14 mls/hr Documented By: AIDA(2) Co-signed By: NICK Discontinued Medications Heparin Sodium (Porcine) (Heparin Sod (Porcine) 1000 Unit/Ml) 2,000 units IV N OW ONE Stop: 10/06/22 06:51 Last Admin: 10/06/22 07:42 Dose: 2,000 units Documented By: DONA Co-signed By: DENNYS Levetiracetam 1,400 mg/ Sodium (Chloride) 114 mls @ 440 mls/hr IV NOW STA Stop: 10/05/22 10:28 Last Infusion: 10/05/22 10:55 Dose: 0 mls/hr Documented By: Admin: 10/05/22 10:38 Dose: 440 mls/hr Documented By: LLUVIA Sodium Chloride (Nss 1000ml) 1,000 mls @ 999 mls/hr IV .Q1H1M ONE Stop: 10/05/22 11:26 Last Infusion: 10/05/22 11:43 Dose: 0 mls/hr Documented By: Admin: 10/05/22 10:37 Dose: 999 mls/hr Documented By: LLUVIA Lorazepam (Lorazepam 2 Mg/1 Ml Vial) Confirm Administered Dose 2 mg .ROUTE .STK- MED ONE Stop: 10/05/22 10:14 Last Admin: 10/05/22 10:42 Dose: Not Given Documented By: LLUVIA Lorazepam (Lorazepam 2 Mg/1 Ml Vial) 1 mg IV NOW STA Stop: 10/05/22 10:40 Last Admin: 10/05/22 10:42 Dose: 1 mg Documented By: LLUVIA Description This is a 21 electrode EEG with a single channel dedicated to limited EKG. The electrodes were placed in accordance with the International 10-20 system. Interpretation The predominant background activity consists of an irregular 8 Hz activity, of up to 40 mV in amplitude, seen symmetrically distributed over the posterior head regions bilaterally, spreading anteriorly. This activity attenuates some with eye-opening and other alerting procedures. add mixed with this background activity with some irregular 6-7 hertz activity from time to time, diffusely. Photic stimulation was performed and elicited no change in the background activity and no abnormal responses were seen. Hyperventilation was not performed. A mild amount of muscle and movement artifact activity contaminated the recording, yet did not hinder interpretation to any significant degree. Throughout the waking portion of the recording, no focal abnormalities or potentially epileptogenic discharges are seen. The patient entered the drowsy state and brief periods of stage II sleep with no further activation. In summary, this EEG Showed evidence of some very mild generalized dysrhythmia during the wakeful state, with no further activation during drowsiness or sleep. No focal abnormalities or, potentially epileptogenic discharges were seen. Clinical Correlation The absence of potentially epileptogenic activity does not exclude a seizure disorder, since interictally, EEGs can be normal. The presence of very mild generalized cerebral dysrhythmia is indicative of very mild encephalopathy, which could be due to wide variety of causes. Clinical correlation is required. [facility] EEG Procedure Codes Indication for Procedure (1) Seizure: Neurology Neurology: [id number] EEG include record awake & sleepy
[2022-10-06 08:28] LABS: A calco-baum cmplx NotReported Not Detected (NotDetected); Bact fragilis Not Reported Not Detected (NotDetected); C auris Not Reported Not Detected (NotDetected); Calbicans Not Reported Not Detected (NotDetected); Candida glabrata Not Reported Not Detected (NotDetected); Candida krusei Not Reported Not Detected (NotDetected); Cneoformans/gatti Not Reported Not Detected (NotDetected); Cparapsilosis Not Reported Not Detected (NotDetected); Ctropicalis Not Reported Not Detected (NotDetected); E cloacae compx Not Reported Not Detected (NotDetected); Efaecalis Not Reported Not Detected (NotDetected); Efaecium Not Reported Not Detected (NotDetected); Enterobacterales Not Reported Not Detected (NotDetected); Escherichia coli Not Reported Not Detected (NotDetected); H influenzae Not Reported Not Detected (NotDetected); K aerogenes Not Reported Not Detected (NotDetected); Koxytoca Not Reported Not Detected (NotDetected); Kpneumoniae grp Not Reported Not Detected (NotDetected); Lmonocyt Not Reported Not Detected (NotDetected); N meningitidis Not Reported Not Detected (NotDetected); P aeruginosa Not Reported Not Detected (NotDetected); Proteus spp Not Reported Not Detected (NotDetected); Salmonella spp Not Reported Not Detected (NotDetected); Smarcescens Not Reported Not Detected (NotDetected); Staph lugdunensis Not Reported Not Detected (NotDetected); Staph spp. Not Reported DETECTED (NotDetected); Staphaureus Not Reported Not Detected (NotDetected); Staphepi Not Reported DETECTED (NotDetected); Staphylococcus spp. DETECTED (NotDetected); Stenmaltophilia Not Reported Not Detected (NotDetected); Strep agal(GrpB) Not Reported Not Detected (NotDetected); Strep pneum Not Reported Not Detected (NotDetected); Strep pyog (GrpA) Not Reported Not Detected (NotDetected); Strep spp Not Reported Not Detected (NotDetected); mecAC Resistant Gene DETECTED (NotDetected)
[2022-10-06 08:35] LABS: Allen Test Pos (Pos); Base Excess ABG -3.8 mEq/L (-9-1.8); HCO3 ABG 22 mmol/L (19-24); Oxygen Saturation ABG 97.2 % (90-95); PCO2 ABG 43 mmHg (35-46); PO2 ABG 77 mmHg (80-95); pH ABG 7.32 (7.35-7.45)
[2022-10-06 08:43] LABS: Basophils # (auto) 0.03 K/uL (0-0.2); Basophils % (auto) 0.5 %; Eosinophils # (auto) 0.06 K/uL (0-0.50); Hematocrit (blood only) 32.6 % (37.0-47.0); Hemoglobin 10.6 g/dl (12.0-16.0); Immature Granulocytes # (auto) 0.02 K/uL (0.01-0.20); Immature Granulocytes % (auto) 0.3 %; Lymphocytes # (auto) 1.24 K/uL (1.2-3.4); Lymphocytes % (auto) 21.2 %; Mean Corpuscular Hemoglobin 32.5 pg (25.0-34.0); Mean Corpuscular Hgb Conc 32.5 g/dL (32.0-36.0); Mean Platelet Volume 11.8 fL (9.4-12.4); Monocytes # (auto) 0.49 K/uL (0.11-0.59); Monocytes % (auto) 8.4 %; Neutrophils # (auto) 4.01 K/uL (1.40-6.50); Neutrophils % (auto) 68.6 %; Platelet Count 115 K/uL (130-400); RDW Coefficient of Variation 14.4 % (11.5-14.5); RDW Standard Deviation 52.2 fL (36.4-46.3); Red Blood Count 3.26 M/uL (4.20-5.40); White Blood Count 5.85 K/ul (4.8-10.8)
[2022-10-06 08:45] LABS: Staphylococcus epidermidis DETECTED (NotDetected)
[2022-10-06] MEDS ORDERED: ATORVASTATIN 40 MG TAB PO SCH (09:00)
[2022-10-06] MEDS ORDERED: FUROSEMIDE 40 MG TAB PO SCH (09:00)
[2022-10-06] MEDS ORDERED: POTASSIUM CHLORIDE CRTAB 20 MEQ TABCR PO SCH (09:00)
[2022-10-06 09:06] LABS: Albumin Globulin Ratio 1.5 (0.9-2); Albumin Level 3.2 gm/dl (3.4-5.0); BUN Creatinine Ratio 27.5 (10-20); Bilirubin,Total 0.3 mg/dl (0.2-1.0); Calcium 8.2 mg/dl (8.6-10.3); Creatinine Clr Calc Pharmacy 49.8 ml/min; Est GFR (African American) 71.5 ml/min; Est GFR (Non-African American) 61.7 ml/min; Globulin 2.1 gm/dl (2.5-4.0); Magnesium 1.8 mg/dl (1.7-2.4); Phosphorus 2.3 mg/dl (2.5-4.9); Potassium 4.1 mmol/L (3.5-5.1); Total Protein 5.3 gm/dl (6.0-8.3)
--- NOTE | 2022-10-06 09:26 | Neurology Consultation ---
Date of Consultation October 06, 2022 Assessment & Plan (1) Acute encephalopathy: (2) Seizure: (3) Myoclonic jerking: (4) Gait disturbance: (5) Idiopathic polyneuropathy: (6) Acute dehydration: (7) Rhabdomyolysis: (8) Right leg DVT: Plan This patient was found on the ground at home, confused, with a history of balance problems and falling of a progressive nature. This may have been going on as much as 2 years. She has progressive numbness in her legs since Covid-19 in July of 2020 and on examination displayed signs of a sensory polyneuropathy. This could give her a sensory ataxia and gait disturbance. Also, I note myoclonic jerking (not tremor ) right greater than left side, legs greater than arms. Etiology of this is not apparent. She does not have a history of seizure disorder but displayed some seizure-like activity in the ER 10/05. I am not convinced she has a primary seizure disorder. EEG was largely unremarkable. Her mental status has essentially cleared this morning. The patient has some brisk reflexes in the lower extremities with clonus but no other upper motor neuron signs. There is no abnormalities on exam that would suggest stroke, but never the less, I cannot exclude a small stroke. Patient has right leg DVT on heparin. She has multiple cardiac issues and multiple risk factors for stroke including hypertension, dyslipidemia, and cigarette smoking. Recommendations: 1. Obtain MRI of the brain with and without contrast -make sure this is obtainable with her pacemaker. 2. laboratory studies to include B12, folate, TSH, Lyme antibody titers, ESR 3. I may consider MRI of the spine depending on her clinical course and the abo ve test results. 4. It is reasonable, for now, to continue levetiracetam 500 mg twice a day. This can also be helpful for myoclonic jerking as well as seizures 5. Increase activity as able Overall, I spent a total of 120 minutes with this case including review of records, review of CT films, direct evaluation the patient at bedside, reports generation, and discussing the case with the patient and RN at bedside, and Dr. Gonzales, including differential diagnosis and treatment options. History of Present Illness Reason for Consultation: Patient is a 77-year-old, who was asked to see at the request of OSCAR Zhang, for neurologic evaluation regarding altered mental status and seizure-like activity. Requesting Physician: OSCAR Zhang Attending Physician: Vidal Gonzales MD History of Present Illness this patient has a history of multiple issues including coronary artery disease, post CO and stenting, ischemic cardiomyopathy, history of pacemaker, hypertension, COPD ( chronic smoker ), CKD 3, anxiety, remote history of migraines, and dyslipidemia. The patient has no history of seizures in the past. Patient tells me that ever since she had a Covid-19 infection ( July of 2020) she has had numbness in her feet and some pain in the soles of her feet. Gabapentin apparently was not of much help and the numbness has progressed up her lower extremities to her mid lower legs bilaterally. She denies numbness in the hands. She has had some balance problems over the last 2 years and has had falling. For the last month or so she has been "not feeling well". She has been experiencing "tremors", which seem like myoclonic jerking of her legs and arms. These jerks occur as single isolated transients and not repetitive. There are not associated with any alteration of consciousness and she has never had any incontinence of urine or tongue biting. When she is up and active she might notice a jerk of her limb but she can also get them when she is resting. Over the last month or so her balance has been off and she feels wobbly. She claims to have had numerous falls. She remembers going over to a friend's house 2 days prior to admission (probably October 04), in order to help that friend clean her house. She noted wobbling gait in the jerking of the limbs and then went home. She remembers being unable to navigate well feeling very to wobbly. She did not have lightheadedness or vertigo. She did not have headaches or pain. She was found on the floor in the morning of October 05, confused. She had some dry blood on her face and mouth but it was determined that she had had a nosebleed with the dry blood as opposed to biting her tongue. She arrived to the emergency room October 05 at 9:19 a.m. with a temperature of 36.7, pulse 86 and regular, respiratory rate 20, blood pressure 139/83, and O2 saturation 99%. She was given Narcan and this did not help. She was a little bit hypotensive at times and she had some left-sided pain. At 1 point in the emergency room, she had some rhythmic shaking of her limbs and was given Ativan 2 mg and then was loaded with levetiracetam. She has had no seizure activity since. CBC was unremarkable on a Chem profile showed a BUN of 50 and a car at BT if 2.2. AST was slightly elevated at 41 alcohol level was 0. Urinalysis was unremarkable and lactate was 0.9. Tox screen was negative. CK was elevated at 2701, and a repeat CK was 3432. CT scan of the head was unremarkable. CT of the cervical spine was under my for acute fractures. Chest x-ray was unremarkable plain x-rays of the hip and pelvis were without fracture. Ultrasound showed a right leg DVT. This morning the patient has been less confused and CBC shows mild anemia ( after hydration ). BUN was 27 and creatinine 0.95. Calcium is 8.2 and AST 45. CK was 2159. The patient has no complaint of pain or headache. She does feel like she is having the twitching and jerking of the limbs as before. She denies dizziness or lightheadedness, vision problems or confusion. An EEG this morning (729) showed very mild generalized cerebral dysrhythmia but nothing focal and no potentially epileptogenic discharges. Blood pressure this morning is 134/81 and she is afebrile. Allergies Allergy/AdvReac Type Severity Reaction Status Date / Time NSAIDS (Non-Steroidal Allergy Severe GI ISSUES Verified 10/05/22 13:35 Anti-Inflamma isosorbide Allergy Unknown VOMIT/HEADA Verified 10/05/22 13:35 CARLOS Uqqvmpo-CZY-TgS Reductase Allergy Unknown LIVER Verified 10/05/22 13:35 Inhibitor FUNCTION [Jqvsfmo-Yzu-Ppa Reductase ELEVATES Inhibitor] tramadol Allergy Unknown VOMITING Verified 10/05/22 13:35 Home Medications Medication Instructions Recorded Confirmed Type aspirin 81 mg tablet,delayed 81 mg PO DAILY ##0 03/30/17 10/05/22 History release clonidine HCl 0.1 mg tablet 0.1 mg PO DAILY #0 tabs 03/30/17 10/05/22 History nitroglycerin 0.4 mg sublingual 0.4 mg sublingual UD #0 BTLS 03/30/17 10/05/22 History tablet pantoprazole 40 mg tablet,delayed 40 mg PO DAILY #30 tabs 03/30/17 10/05/22 History release albuterol sulfate 90 mcg/actuation 2 puff inhalation Q4H SOB/Wheezing 07/27/17 10/05/22 History aerosol inhaler ##0 lisinopril 20 mg tablet 20 mg PO DAILY ##0 07/27/17 10/05/22 History metoprolol succinate 100 mg 100 mg PO DAILY #0 tabs 07/27/17 10/05/22 History tablet,extended release 24 hr oxycodone 5 mg tablet 5 mg PO QID PRN Severe Pain (Scale 08/16/20 10/05/22 History Score 7-10) trazodone 50 mg tablet 25 mg PO HS 08/16/20 10/05/22 History atorvastatin 40 mg tablet 40 mg PO DAILY 10/05/22 10/05/22 History cyanocobalamin (vitamin B-12) 1,000 mcg PO QAM 10/05/22 10/05/22 History 1,000 mcg tablet furosemide 40 mg tablet 40 mg PO DAILY 10/05/22 10/05/22 History gabapentin 300 mg capsule 300 mg PO TID 10/05/22 10/05/22 History nystatin 100,000 unit/gram topical 1 applic topical BID Rash on chest 10/05/22 10/05/22 History ointment potassium chloride 20 mEq 20 meq PO DAILY 10/05/22 10/05/22 History tablet,extended release(part/cryst) venlafaxine 150 mg 150 mg PO DAILY 10/05/22 10/05/22 History capsule,extended release 24 hr Patient History Medical History Acute anterior wall CO Anxiety CAD (coronary artery disease) "CO 2006. S/P PCI/Stent RCA" Chronic hepatitis C without hepatic coma Chronic pain CKD (chronic kidney disease), stage III COPD, group C, by GOLD 2017 classification Elevated troponin GERD (gastroesophageal reflux disease) H/O cardiac pacemaker HTN (hypertension) Hyperlipidemia Hypoxia Ischemic cardiomyopathy LBBB (left bundle branch block) Migraine OA (osteoarthritis) Respiratory acidosis Surgical History H/O release of tendon H/O: hysterectomy History of carpal tunnel surgery History of implantable cardioverter-defibrillator (ICD) placement Hx of cataract surgery S/P cardiac cath S/P cholecystectomy Family History (Updated 10/06/22 @ 09:45 by Silvestre Winter MD) Father , age 81 of lung cancer Prostate cancer Heart disease Thyroid disorder Lung cancer Mother , age 80 with COPD Cancer Cervical Coronary heart disease s/p CABG Diabetes COPD (chronic obstructive pulmonary disease) Social History Smoking Status: Current every day smoker Tobacco Type: Cigarettes Age Started Using Tobacco: 23; packs per day: 0.5; Second Hand Exposure: No; Do You Dip or Chew Tobacco: No; Hx Alcohol Use: No Hx Substance Use: No Preferred Language: Marshallese Communication Ability: Effective Garnetter Required: No Beliefs That Will Affect Care: None Current Living Situation: Family current occupational status: retired 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 [employer] Feels Safe at Home: Yes Assistive Devices: None Review of Systems Constitutional: + fatigue; no fever and no weakness Eyes: no diplopia, no eye pain and no worsening vision Ear, Nose, Mouth, Throat: + hearing loss; no ear pain, no tinnitus, no dizziness, no snoring, no hoarseness and no dysphagia Respiratory: no cough and no dyspnea Cardiovascular: no chest pain, no palpitations and no lightheadedness Gastrointestinal: no abdominal pain, no nausea and no vomiting Genitourinary: no dysuria, no urinary frequency and no urinary incontinence Musculoskeletal: no back pain, no neck pain, no radicular pain, no joint pain and no myalgia Integumentary: no rash and no lesions Neurologic: + gait abnormality, + numbness and + abnormal movements; no localized weakness, no generalized weakness, no tingling, no tremor(s), no headache(s), no abnormal speech, no confusion and no memory loss Psychiatric: no depression, no irritability, no anxiety, no difficulty concentrating, no confusion and no hallucinations Endocrine: no fatigue and no flushing Hematologic / Lymphatic: no easy bleeding and no easy bruising Allergy / Immunological: no urticaria and no problem reported Exam (Neuro) Physical Exam: The patient is right-handed. The patient is awake, alert, and attentive. Speech is normal without any aphasia or dysarthria. The patient can name objects, repeat phrases, and has normal spontaneous speech. Mentation and thought processes are intact, with orientation to person, place and time, and normal fund of knowledge. Attention and concentration are normal. Mood and affect are normal and appropriate. General appearance and grooming are normal. Short and long-term memory are reasonable to conversation Pupils are 3 mm bilaterally and reactive to light. Extraocular eye muscles are intact without nystagmus. Visual acuity and visual gutierrez seem normal grossly to confrontation. There are no deficits to sensation in the face in all 3 distributions of the fifth cranial nerve bilaterally. Corneal reflexes are positive bilaterally. Facial strength and symmetry was normal bilaterally. Hearing seems mildly decreased bilaterally. Palate moves well without asymmetry. There is normal sternocleidomastoid and trapezius (shoulder shrug) strength bilaterally. Tongue is midline with good strength bilaterally. Neck has a full range of motion without discomfort. There are no cervical bruits bilaterally. There are no cranial or ocular bruits. Heart is without murmur. There is a regular rhythm and rate. Cervical, thoracic, and lumbar spine are nontender to palpation. Gait is very cautious and narrow based with no ataxia. She tends to fall backwards with her stance. Sitting on bed with her feet dangling is normal. With outstretched arms there is no drift. There are no resting, postural, or action tremors. There is no ataxia with finger to nose testing. There is good facility in the hands. No other abnormal involuntary movements are noted. Although she does not have tried her, she does have twitching and myoclonic jerks in the right greater than left leg, and right upper extremity greater than left upper extremity. It was more frequent in the legs than the arms. Motor strength is 5/5 diffusely in the arms bilaterally including deltoids, biceps, triceps, brachioradialis, wrist flexors and extensors, head of talent management, and intrinsic hand muscles. Motor strength is 5/5 diffusely in the legs bilaterally including hip flexors, quadriceps, hamstrings, gastrocnemius, tibialis anterior, tibialis posterior, and Peroneii muscles. Toe extensors are normal and there is good bulk in the extensor digitorum brevis muscles bilaterally. The limbs have good tone without rigidity or spasticity. There is no atrophy noted in the muscles. Muscle bulk is normal, there is no tenderness to palpation, no myotonia to percussion, and no fasciculations seen. Sensory examination Reveals a stocking decreased pinprick to the mid lower legs bilaterally. Reflexes are 1/4 in the biceps, triceps, and brachioradialis tendons bilaterally. Quadriceps reflexes are 3/4 on the left and 2/4 on the right. Achilles tendon reflexes were absent bilaterally. There was 2-3 beats of clonus with the knee reflex on the left. Toes are downgoing with plantar stimulation bilaterally. Peripheral pulses are present and of normal quality distally in all 4 limbs. There is no peripheral edema noted in the limbs. Results & Data Vital Signs (Past 12 Hours) Vital Signs Temp Pulse Pulse Resp BP BP Pulse Ox 10/06/22 06:59 36.6 C 88 18 134/81 93 10/06/22 03:00 37.1 C 84 21 110/61 94 10/06/22 02:18 85 19 93 10/05/22 23:30 73 10/05/22 23:00 36.7 C 75 22 92/53 L 92 10/05/22 21:44 70 19 96 O2 Del Method O2 Flow Rate 10/06/22 06:59 Nasal Cannula 3 10/06/22 03:00 Nasal Cannula 10/06/22 02:18 4 10/05/22 23:30 10/05/22 23:00 Nasal Cannula 10/05/22 21:44 2 PG Care Time/CCT Total # of Minutes Spent Total Time Spent with Patient: Total time spent is greater than 50% in coordination of care (as documented) at patient's floor/unit and/or counseling patient: Coding Level of Care Code 38440 INT INP/OBS CARE 3/75MIN Diagnoses Acute encephalopathy G93.40 Seizure R56.9 Myoclonic jerking G25.3 Gait disturbance R26.9 Idiopathic polyneuropathy G60.9 Acute dehydration E86.0 Rhabdomyolysis M62.82 Rhabdomyolysis type: non-traumatic Right leg DVT I82.401 Time Spent (min) 120 (7) Rhabdomyolysis Rhabdomyolysis type: non-traumatic Qualified Code(s): M62.82 - Rhabdomyolysis
[2022-10-06] MEDS: DAPTOmycin 350 MG in SYRINGE 0 ML IV SCH (09:30)
[2022-10-06] MEDS: CYANOCOBALAMIN (B-12) 500 MCG TABLET PO SCH (09:30)
[2022-10-06] MEDS: ASPIRIN 81 MG ECTAB PO SCH (09:30)
[2022-10-06] MEDS: PANTOprazole 40 MG TAB PO SCH (09:30)
[2022-10-06] MEDS: VENLAFAXINE HCL XR 150 MG CAPXR PO SCH (09:30)
[2022-10-06] MEDS: cloNIDine HCL 0.1 MG TAB PO SCH (09:32)
--- NOTE | 2022-10-06 10:40 | Electrocardiogram Report ---
Test Reason : Blood Pressure : / mmHG Vent. Rate : 098 BPM Atrial Rate : 098 BPM P-R Int : 000 ms QRS Dur : 132 ms QT Int : 386 ms P-R-T Axes : 000 270 093 degrees QTc Int : 492 ms Poor data quality, interpretation may be adversely affected Ventricular-paced rhythm Biventricular pacemaker detected Abnormal ECG When compared with ECG of 05-OCT-2022 09:19, Vent. rate has increased BY 18 BPM Confirmed by Craig Frias ([id number]) on 10/06/2022 10:40:14 AM Referred By: REFERRED SELF Confirmed By:Krish Frias
[2022-10-06] MEDS: cefTRIAXone SODIUM 1,000 MG in DEXTROSE 5% AD-VAN 50 ML IV SCH (14:28)
[2022-10-06] MEDS ORDERED: Nursing to Pharmacy Communication SCH (14:30)
[2022-10-06 15:46] LABS: Partial Thromboplastin Ratio 1.6
--- NOTE | 2022-10-06 15:59 | Hospitalist Progress Note ---
Date of Service October 06, 2022 Assessment & Plan (1) Altered mental status: (2) MARIELLA (acute kidney injury): (3) CKD (chronic kidney disease), stage III: (4) COPD, group C, by GOLD 2017 classification: (5) Respiratory acidosis: (6) CAD (coronary artery disease): (7) Ischemic cardiomyopathy: (8) HTN (hypertension): (9) Hyperlipidemia: (10) Chronic pain: Plan Per admitting service notes with addendum: 77 year old presented with AMS; found down at home. Work up for AMS, MARIELLA, possible seizures, and syncope as cause. Pt does have a ventricular pacer; will interrogate. 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 Pt independent at baseline. Altered mental status, Multifactorial: Possible seizure Evaluated by neurology service EEG: Pending Brain MRI: Pending pacemaker compatibility check Continue Keppra 500 mg twice daily Acute respiratory acidosis From seizure? From oxycodone ABG improving, pH now 7.3, patient is awake and alert DC BiPAP at this point Continue to monitor closely Rule out arrhythmia Pacemaker check performed: Unrevealing May need to rule out PE Patient positive for right posterior tibial vein DVT Right posterior tibial vein DVT Right greater saphenous vein thrombus, chronic Currently on heparin drip Hematology service consulted CT chest rule out PE? Possible bacteremia Initial blood cultures: Positive 1 out of 2 bottles for gram-positive cocci Repeat blood cultures: Pending Start daptomycin MARIELLA superimposed on CKD stage III: Creatinine 2.23; baseline 1.4 Secondary to dehydration Creatinine now 0.9 CK level 2150 Continue gentle IV fluid COPD with hypercapnia: Respiratory acidosis: Management per above CAD: Ischemic cardiomyopathy: AAA: HTN: Has V-pacer; will interrogate to r/o syncopal cause Recently had an aortic duplex scan on 09/22: 3.0 cm x 3.0 cm abdominal aortic aneurysm. ECHO: EF 60-65% with trace AR, no pHTN, normal LV wall motion. Takes Lisinopril; hold for now due to MARIELLA Hold Lasix Takes Clonidine HLD: Takes Atorvastatin Chronic pain: Sciatica and feet neuropathy Current Pain Medications: Oxycodone 5 mg PRN, Venlafaxine, Gabapentin and Trazadone HOLD Oxycodone, Gabapentin, and Oxy for AMS; reassess with mental status improves Knee erythema: No leukocytosis WBC 7.36 Lactate 0.9 Continue ceftriaxone R>L leg swelling GERD: Takes Protonic; continue Disposition: PCP: Dr. Ennis CODE STATUS: Full code VTE prophylaxis: On a heparin drip will need PT and OT evaluate Admission and Anticipated Discharge Date Admission Date: October 05, 2022 Subjective Follow-up for altered mental status, etc. Seen resting in bed, comfortable, sleeping but easily awakened Using BiPAP but awake and alert, oriented x3, answers all questions appropriately States she feels fine overall No recollection of recent events, does not remember events preceding her syncopal episode, only remembers she was being picked up on the floor after being found Denies headache, dizziness, neurologic deficits, weakness or numbness Denies shortness of breath, chest pain, fevers or chills Has occasional dry cough Denies abdominal pain, nausea or vomiting, problems with urination or bowel movement Review of Systems Review of Systems: all noted and negative except for above Physical Exam Physical Exam: General- oriented x 3, not in distress, speaks in sentences with no effort or accessory muscle use Head- atraumatic Eyes- PERRL, EOMI, anicteric ENT- oropharynx clear Neck- supple, no JVD, no adenopathy, no thyromegaly; carotids +2/2, no bruits appreciated Lungs- clear to auscultation bilaterally, no rales/wheezes Heart- normal rate, regular rhythm; no murmur, no gallop, no rub appreciated Abdomen- normal bowel sounds, nondistended, soft, nontender, no masses or hepatosplenomegaly Extremities- no pretibial edema, no calf tenderness; peripheral pulses intact Neuro- alert, oriented x 3; CN 2-12 grossly intact; motor 5/5 bilaterally;sensation 100% on all extremities; no other gross focal neurologic deficits Skin- warm & dry Results & Data Results & Data Vital Signs (Past 12 Hours) Vital Signs Temp Pulse Resp BP BP Pulse Ox O2 Del Method 10/06/22 15:30 36.8 C 87 19 125/60 96 Room Air 10/06/22 10:59 37.4 C 84 22 119/72 95 BiPAP 10/06/22 08:00 Nasal Cannula 10/06/22 06:59 36.6 C 88 18 134/81 93 Nasal Cannula O2 Flow Rate 10/06/22 15:30 10/06/22 10:59 10/06/22 08:00 3 10/06/22 06:59 3 all noted and reviewed including below
[2022-10-06 16:23] LABS: Partial Thromboplastin Time 46.4 Seconds (21.0-31.0)
--- NOTE | 2022-10-06 18:44 | Consultation ---
Date of Consultation October 06, 2022 Assessment & Plan (1) Right leg DVT: Patient had a previous superficial thrombosis in the greater saphenous vein of the right leg this was apparently in the specific context of COVID-19 infection which she general has a well-established association with a "hypercoagulable" syndrome that can last at least 1 year after infection. Thus I think we can consider that initial event "provoked" She is admitted after what sounds like a collapse at home with prolonged immobility and almost certain compromise of venous return from the leg. DVT in this setting could also be considered "provoked." Although she never took control pills she had no issues during her 5 pregnancies and at least if her history is accurate there is no family history to suggest one of the familial hypercoagulable syndromes. Chest x-ray is unremarkable and she does not give specific symptoms but 1 always has to be concerned about an underlying malignancy exacerbating coagulation risk. Given her smoking history at some point a chest CT scan to exclude any occult lung process would be worthwhile though that is not necessarily an emergent procedure. Would otherwise be sure that she is up-to-date with "routine" cancer screening procedures (mammography, pelvic/Pap smears, colonoscopy, comprehensive skin exam) at least historically. Not sure how hard we need to press for those to be done past the usual cutoff age in the absence of other symptoms and again given that this current episode was provoked. Anticoagulation for a minimum of 3 months would certainly be worthwhile starting with heparin while she is an inpatient and then based on recovery of renal function deciding whether she should stay on anticoagulation as warfarin or can use apixaban. Duration of anticoagulation could be somewhat of a discussion. Although each event was theoretically "provoked," anytime there is recurrent thrombosis that has to make one be concerned about more prolonged risk. In fact, the persistent vascular changes related to the previous SVT in and of itself would suggest a postphlebitic syndrome that would further modulate that risk. Hypercoagulable work-up looking both for familial mutations and any APLS like changes might be to consideration to further inform discussions of duration of anticoagulation though likely low yield. Beyond the immediate anticoagulation and stabilization of her neurological and other medical issues, none of the other work-up is immediately required or would change immediate management. We can certainly let her stabilize more completely and then determine the degree to which we pursue screening chest CT, other cancer screening issues, hypercoagulable work-up, etc. The decision to go beyond 3 months of anticoagulation obviously does not need to be made until that time point is reached Plan 1. As she stabilizes can transition from heparin to an oral agent either apixaban or warfarin depending on renal function and patient choice 2. Would pursue chest CT screening for lung cancer in time given her smoking history and this presentation though that does not necessarily need to be done emergently 3. Would review historical "routine" cancer screening studies for any suggestion of a possible early indication of a malignancy elsewhere. Without major symptoms and with what appears to have been provoked episodes both in 202 and currently, not clear that we need to press too hard on extending screening beyond routine indicated studies and age thresholds but can certainly continue to discuss 4. Hypercoagulable work-up for familial mutations or APLS-like changes is not needed for acute management decisions and can be deferred to follow-up as an outpatient. Likely low yield but may help to enhance discussions regarding duration of anticoagulation. 5. We will certainly plan for a minimum of 3 months anticoagulation and then as we reached that time point based on whether or not additional information has been generated from some of the above suggested studies, determine whether defined or indefinite anticoagulation is a consideration My focus has been on the issues related to the DVT and would defer to the hospitalist and neurology teams for more general work-up and medical stabilization. History of Present Illness Reason for Consultation: Right leg acute DVT in the context of a previous right leg superficial thrombosis in 2020. Attending Physician: Vidal Gonzales MD History of Present Illness History is assembled from a combination of review of the hospital chart and speaking with the patient. Although she seems to be much improved in terms of mental status, she does not seem to have a completely reliable memory. In 2020 in the wake of a COVID19 infection she did develop a right leg superficial venous thrombosis in the greater with graft saphenous vein. She was treated with apixaban for 3 months and had seem to stabilize. She is now admitted after what may be up to a several day period of immobility with a right posterior tibial vein deep venous thrombosis and as well some persistent changes in the right leg greater saphenous vein. She is currently on heparin and without acute issues. Patient is unaware of other episodes of deep venous thrombosis or pulmonary embolism though she did not herself specifically recall the episode of superficial venous thrombosis. She did indicate that she had been on warfarin in the past for a "clot in my heart from atrial fibrillation" though I am not finding specific corroboration of that. She is 5 para 5 apparently with no miscarriages or other obstetrical complications and she reports there is no known family history of DVT/PE or major blood disorder. She is a longtime tobacco user who stopped just a couple of months ago. She has significant comorbidities including coronary artery disease status post AMI/ischemic cardiomyopathy/pacemaker with chronic kidney disease and acute exacerbation this admission, COPD, hypertension, hyperlipidemia, osteoarthritis, and an AAA. Allergies Allergy/AdvReac Type Severity Reaction Status Date / Time NSAIDS (Non-Steroidal Allergy Severe GI ISSUES Verified 10/05/22 13:35 Anti-Inflamma isosorbide Allergy Unknown VOMIT/HEADA Verified 10/05/22 13:35 CARLOS Rzskuuh-ISW-AzS Reductase Allergy Unknown LIVER Verified 10/05/22 13:35 Inhibitor FUNCTION [Phjqmqb-Zpz-Dmx Reductase ELEVATES Inhibitor] tramadol Allergy Unknown VOMITING Verified 10/05/22 13:35 Home Medications Medication Instructions Recorded Confirmed Type aspirin 81 mg tablet,delayed 81 mg PO DAILY ##0 03/30/17 10/05/22 History release clonidine HCl 0.1 mg tablet 0.1 mg PO DAILY #0 tabs 03/30/17 10/05/22 History nitroglycerin 0.4 mg sublingual 0.4 mg sublingual UD #0 BTLS 03/30/17 10/05/22 History tablet pantoprazole 40 mg tablet,delayed 40 mg PO DAILY #30 tabs 03/30/17 10/05/22 History release albuterol sulfate 90 mcg/actuation 2 puff inhalation Q4H SOB/Wheezing 07/27/17 10/05/22 History aerosol inhaler ##0 lisinopril 20 mg tablet 20 mg PO DAILY ##0 07/27/17 10/05/22 History metoprolol succinate 100 mg 100 mg PO DAILY #0 tabs 07/27/17 10/05/22 History tablet,extended release 24 hr oxycodone 5 mg tablet 5 mg PO QID PRN Severe Pain (Scale 08/16/20 10/05/22 History Score 7-10) trazodone 50 mg tablet 25 mg PO HS 08/16/20 10/05/22 History atorvastatin 40 mg tablet 40 mg PO DAILY 10/05/22 10/05/22 History cyanocobalamin (vitamin B-12) 1,000 mcg PO QAM 10/05/22 10/05/22 History 1,000 mcg tablet furosemide 40 mg tablet 40 mg PO DAILY 10/05/22 10/05/22 History gabapentin 300 mg capsule 300 mg PO TID 10/05/22 10/05/22 History nystatin 100,000 unit/gram topical 1 applic topical BID Rash on chest 10/05/22 10/05/22 History ointment potassium chloride 20 mEq 20 meq PO DAILY 10/05/22 10/05/22 History tablet,extended release(part/cryst) venlafaxine 150 mg 150 mg PO DAILY 10/05/22 10/05/22 History capsule,extended release 24 hr Patient History Medical History Acute anterior wall NV Anxiety CAD (coronary artery disease) "NV 2006. S/P PCI/Stent RCA" Chronic hepatitis C without hepatic coma Chronic pain CKD (chronic kidney disease), stage III COPD, group C, by GOLD 2017 classification Elevated troponin GERD (gastroesophageal reflux disease) H/O cardiac pacemaker HTN (hypertension) Hyperlipidemia Hypoxia Ischemic cardiomyopathy LBBB (left bundle branch block) Migraine OA (osteoarthritis) Respiratory acidosis Surgical History H/O release of tendon H/O: hysterectomy History of carpal tunnel surgery History of implantable cardioverter-defibrillator (ICD) placement Hx of cataract surgery S/P cardiac cath S/P cholecystectomy Family History (Updated 10/06/22 @ 09:45 by Silvestre Winter MD) Father , age 81 of lung cancer Prostate cancer Heart disease Thyroid disorder Lung cancer Mother , age 80 with COPD Cancer Cervical Coronary heart disease s/p CABG Diabetes COPD (chronic obstructive pulmonary disease) Social History Smoking Status: Current every day smoker Tobacco Type: Cigarettes Age Started Using Tobacco: 23; packs per day: 0.5; Second Hand Exposure: No; Do You Dip or Chew Tobacco: No; Tobacco Cessation Education Requested by Patient: No Hx Alcohol Use: No Hx Substance Use: No Preferred Language: Kyrgyz Communication Ability: Effective 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 No pathologic adenopathy in cervical supraclavicular or axillary regions Her lungs do seem clear Cardiac rhythm currently seems regular The abdomen is soft and nontender without suggestion of mass or organomegaly She has only some modest asymmetry of the right calf compared to the left with minimal compression tenderness and no dramatic cord Neurologically she is alert and her speech is fluent but she clearly struggles with memory suggesting only some cognitive dysfunction. There is no dramatic focality to her exam otherwise Results & Data Vital Signs (Past 12 Hours) Vital Signs Temp Pulse Resp BP BP Pulse Ox O2 Del Method 10/06/22 15:30 36.8 C 87 19 125/60 96 Room Air 10/06/22 10:59 37.4 C 84 22 119/72 95 BiPAP 10/06/22 08:00 Nasal Cannula 10/06/22 06:59 36.6 C 88 18 134/81 93 Nasal Cannula O2 Flow Rate 10/06/22 15:30 10/06/22 10:59 10/06/22 08:00 3 10/06/22 06:59 3 Laboratory Results Laboratory Results - last 24 hr 10/05/22 10/05/22 10/05/22 09:24 18:03 23:32 WBC RBC Hgb Hct MCV MCH MCHC RDW Std Deviation RDW Coeff of Julia Plt Count MPV Immature Gran % (Auto) Neut % (Auto) Lymph % (Auto) [place] % (Auto) Eos % (Auto) Baso % (Auto) Neut # (Auto) Lymph # (Auto) [place] # (Auto) Eos # (Auto) Baso # (Auto) Immature Gran # (Auto) APTT 24.9 PTT Ratio 0.9 ABG pH ABG pCO2 ABG pO2 ABG HCO3 ABG O2 Saturation ABG Base Excess Joaquin Test Oxygen Given Sodium 139 Potassium 4.7 Chloride 110 H Carbon Dioxide 23 Anion Gap 6 BUN 43 H Creatinine 1.58 H D Est Cr Clr Drug Dosing 28.7 Est GFR ( Amer) 36.7 Est GFR (Non-Af Amer) 31.7 BUN/Creatinine Ratio 27.2 H Glucose 70 Calcium 8.5 L Phosphorus Magnesium Total Bilirubin AST ALT Alkaline Phosphatase Total Creatine Kinase Total Protein Albumin Globulin Albumin/Globulin Ratio Staphylococcus sp PCR DETECTED A mecA/C-Methicil Resis Gene DETECTED A Staph epidermidis (PCR) DETECTED A Bld Cult ID Panel PCR See PCR Comment 10/06/22 10/06/22 10/06/22 05:44 05:44 05:44 WBC 4.69 L RBC 3.22 L Hgb 10.6 L Hct 32.9 L MCV 102.2 H MCH 32.9 MCHC 32.2 RDW Std Deviation 53.8 H RDW Coeff of Julia 14.4 Plt Count 110 L MPV 12.0 Immature Gran % (Auto) Neut % (Auto) Lymph % (Auto) [place] % (Auto) Eos % (Auto) Baso % (Auto) Neut # (Auto) Lymph # (Auto) [place] # (Auto) Eos # (Auto) Baso # (Auto) Immature Gran # (Auto) APTT 32.2 H PTT Ratio 1.1 ABG pH ABG pCO2 ABG pO2 ABG HCO3 ABG O2 Saturation ABG Base Excess Joaquin Test Oxygen Given Sodium 141 Potassium 4.1 Chloride 113 H Carbon Dioxide 23 Anion Gap 5 BUN 27 H Creatinine 0.95 D Est Cr Clr Drug Dosing 47.7 Est GFR ( Amer) 67.9 Est GFR (Non-Af Amer) 58.6 BUN/Creatinine Ratio 28.4 H Glucose 83 Calcium 8.2 L Phosphorus Magnesium Total Bilirubin 0.3 AST 45 H ALT 18 Alkaline Phosphatase 67 Total Creatine Kinase 2159 H Total Protein 5.3 L Albumin 3.2 L Globulin 2.1 L Albumin/Globulin Ratio 1.5 Staphylococcus sp PCR mecA/C-Methicil Resis Gene Staph epidermidis (PCR) Bld Cult ID Panel PCR 10/06/22 10/06/22 10/06/22 08:21 08:21 08:21 WBC 5.85 RBC 3.26 L Hgb 10.6 L Hct 32.6 L MCV 100.0 MCH 32.5 MCHC 32.5 RDW Std Deviation 52.2 H RDW Coeff of Julia 14.4 Plt Count 115 L MPV 11.8 Immature Gran % (Auto) 0.3 Neut % (Auto) 68.6 Lymph % (Auto) 21.2 [place] % (Auto) 8.4 Eos % (Auto) 1.0 Baso % (Auto) 0.5 Neut # (Auto) 4.01 Lymph # (Auto) 1.24 [place] # (Auto) 0.49 Eos # (Auto) 0.06 Baso # (Auto) 0.03 Immature Gran # (Auto) 0.02 APTT PTT Ratio ABG pH 7.32 L ABG pCO2 43 ABG pO2 77 L ABG HCO3 22 ABG O2 Saturation 97.2 H ABG Base Excess -3.8 Joaquin Test Pos Oxygen Given 2L Sodium 140 Potassium 4.1 Chloride 113 H Carbon Dioxide 22 Anion Gap 5 BUN 25 H Creatinine 0.91 Est Cr Clr Drug Dosing 49.8 Est GFR ( Amer) 71.5 Est GFR (Non-Af Amer) 61.7 BUN/Creatinine Ratio 27.5 H Glucose 80 Calcium 8.2 L Phosphorus 2.3 L Magnesium 1.8 Total Bilirubin 0.3 AST 45 H ALT 17 Alkaline Phosphatase 66 Total Creatine Kinase Total Protein 5.3 L Albumin 3.2 L Globulin 2.1 L Albumin/Globulin Ratio 1.5 Staphylococcus sp PCR mecA/C-Methicil Resis Gene Staph epidermidis (PCR) Bld Cult ID Panel PCR 10/06/22 14:54 WBC RBC Hgb Hct MCV MCH MCHC RDW Std Deviation RDW Coeff of Julia Plt Count MPV Immature Gran % (Auto) Neut % (Auto) Lymph % (Auto) [place] % (Auto) Eos % (Auto) Baso % (Auto) Neut # (Auto) Lymph # (Auto) [place] # (Auto) Eos # (Auto) Baso # (Auto) Immature Gran # (Auto) APTT 46.4 H* PTT Ratio 1.6 ABG pH ABG pCO2 ABG pO2 ABG HCO3 ABG O2 Saturation ABG Base Excess Joaquin Test Oxygen Given Sodium Potassium Chloride Carbon Dioxide Anion Gap BUN Creatinine Est Cr Clr Drug Dosing Est GFR ( Amer) Est GFR (Non-Af Amer) BUN/Creatinine Ratio Glucose Calcium Phosphorus Magnesium Total Bilirubin AST ALT Alkaline Phosphatase Total Creatine Kinase Total Protein Albumin Globulin Albumin/Globulin Ratio Staphylococcus sp PCR mecA/C-Methicil Resis Gene Staph epidermidis (PCR) Bld Cult ID Panel PCR Diagnostic Findings Cervical Spine CT 10/05/22 09:16 CT SCAN OF THE CERVICAL SPINE CLINICAL HISTORY: Change in mental status. Found down. Possible fall. COMPARISON STUDY: Chest CT dated 08/18/2020. TECHNIQUE: CT scan of the cervical spine is performed from the skull base to the upper thoracic spine. Images are reviewed in the axial, sagittal, and coronal planes. IV contrast was not administered for this examination. A dose lowering technique was utilized adhering to the principles of ALARA. The examination is degraded by motion artifact. CT DOSE: 1436.21 mGy.cm FINDINGS: Skeletal structures: The skeletal structures are osteopenic. There is no evidence of fracture or subluxation involving the cervical spine. Vertebral body height and alignment are maintained. There is straightening of the cervical lordosis. Anterior osteophytes are seen throughout. The odontoid process and lateral masses are intact. The atlantoaxial articulation is preserved noting advanced productive degenerative change. The spinous processes appear intact. There is a mild chronic superior endplate compression deformity of T3. There is moderate multilevel cervical spondylosis. Uncovertebral and facet arthropathy contribute to neural foraminal narrowing at several levels. Intervertebral discs: There is moderate disc space narrowing at C5-C6. Mild narrowing is seen at the remaining cervical levels. Central canal: A posterior disc osteophyte complex at C5-C6 may contribute to acquired compromise of the central canal. Soft tissues: The prevertebral and paraspinous soft tissues are within normal limits. There is atherosclerotic calcification of the carotid bulbs. Pacemaker leads are seen at the left thoracic inlet. Calvarium: The visualized calvarium at the skull base appears intact. Brain parenchyma: Partially visualized brain parenchyma at the skull base is within normal limits. Sinuses and mastoids: The visualized paranasal sinuses are clear. The mastoid air cells are well pneumatized. Lung apices: Clear as visualized. IMPRESSION: 1. There is no evidence of fracture or subluxation involving the cervical spine. 2. Osteopenia and spondylotic change as above. ACT 112: Negative or not required by law. Electronically signed by: Saeed Guallpa M.D. 10/05/2022 10:[address] 10/05/22 09:16 CT head/brain wo con CLINICAL HISTORY: 77 years-old Female with ams. Acutely altered mental status TECHNIQUE: Multiple axial CT images of the head were obtained without contrast. A dose lowering technique was utilized adhering to the principles of ALARA. COMPARISON: CT cervical spine of same day, head CT 03/30/2017 FINDINGS: No acute intracranial hemorrhage, midline shift, intracranial mass, hydrocephalus, territorial ischemia or abnormal extra-axial collection. Involutional changes with chronic microvascular ischemic disease. The study is motion degraded. There is also streak artifact from the patient's bilateral rings. The calvarium is intact. Prior bilateral lens repair. Asymmetric soft tissue fullness is noted within the right nasopharynx nasopharynx measuring 2.9 x 1.9 cm, similar in appearance to the 2017 study. The paranasal sinuses, mastoid air cells, and middle ear cavities are clear. IMPRESSION: 1. Motion degraded exam without acute intracranial abnormality identified. 2. Indeterminate asymmetric soft tissue fullness within the right nasopharynx. Correlation with direct visualization recommended in order to exclude an underlying mucosal lesion.. ACT 112: Negative or not required by law. The above report was generated using voice recognition software. It may contain grammatical, syntax or spelling errors. Electronically signed by: Gurdeep Claros M.D. 10/05/2022 10:02 AM Chest X-Ray 10/05/22 09:17 XR chest 1V not portable CLINICAL HISTORY: Sepsis TECHNIQUE: Single frontal radiograph of the chest was obtained. Comparison: Comparison is made to chest radiograph 08/16/2030 FINDINGS: Pacemaker defibrillator is seen. Cardiomegaly is noted. The aortic arch is calcified. Reticular interstitial opacities are seen. No evidence of pleural effusion or pneumothorax. IMPRESSION: Interstitial disease without evidence of pneumonia. ACT 112: Negative or not required by law. Electronically signed by: Dennis Tobar M.D. 10/05/2022 11:46 AM Hip/Pelvis X-Ray 10/05/22 09:22 XR hip LT 2V w pelvis CLINICAL HISTORY: found on floor TECHNIQUE: 2 views of the left hip and single frontal view of the pelvis were obtained. Comparison: None available at the time of this dictation. FINDINGS: There is no evidence of an acute fracture. Degenerative changes are seen in the hip joint. No soft tissue abnormality is seen. IMPRESSION: Degenerative changes without evidence of acute abnormality. ACT 112: Negative or not required by law. Electronically signed by: Dennis Tobar M.D. 10/05/2022 11:40 AM Renal Ultrasound 10/05/22 12:15 ULTRASOUND KIDNEYS AND BLADDER CLINICAL HISTORY: Acute renal insufficiency. COMPARISON STUDY: Abdominal CT dated 08/16/2020 TECHNIQUE: Real-time, grayscale, and color flow sonography of the kidneys and bladder is performed. Images are reviewed in the transverse and longitudinal planes. FINDINGS: Kidneys: The left kidney was suboptimally assessed due to body habitus. The kidneys are normal in size and echotexture. The right kidney measures 9.3 x 4.5 x 5.1 cm and the left kidney measures 8.0 x 4.3 x 3.6 cm. There is no hydronephrosis. There is a 4 mm nonobstructing right renal calculus. A 1.4 cm cyst is seen in the right upper pole. There is no sonographic evidence of contour deforming renal mass lesion. No perinephric fluid is identified. Bladder: The bladder is decompressed around a Horne catheter and not well eval uated. IMPRESSION: 1. The kidneys are normal in size and without hydronephrosis. 2. Right-sided nephrolithiasis. 3. The bladder was decompressed around a Horne catheter and not well evaluated. ACT 112: Negative or not required by law. Electronically signed by: Saeed Guallpa M.D. 10/05/2022 10:58 PM Knee X-Ray 10/05/22 12:58 XR knee RT 1 or 2V routine HISTORY: 77 years-old Female s/p fall acute right knee pain status post fall COMPARISON: None TECHNIQUE: 2 views of the right knee FINDINGS: Demineralized appearance of the bones. Minimal tricompartment osteoarthritis. No acute fracture, dislocation or radiopaque foreign body. Arterial calcifications. IMPRESSION: No acute fracture or dislocation. ACT 112: Negative or not required by law. The above report was generated using voice recognition software. It may contain grammatical, syntax or spelling errors. Electronically signed by: Gurdeep Claros M.D. 10/05/2022 2:44 PM Venous Doppler Study 10/05/22 13:22 Exam(s): US VENOUS BILATERAL LOWER EXTREMITIES EXAM: US Duplex Bilateral Lower Extremities Veins CLINICAL HISTORY: Reason for exam: rule out DVT. TECHNIQUE: Real-time duplex ultrasound scan of the bilateral lower extremity veins integrating B-mode two-dimensional vascular structure, Doppler spectral analysis, color flow Doppler imaging and compression. COMPARISON: No relevant prior studies available. FINDINGS: Right deep veins: Positive for DVT in 1 of the 2 RIGHT posterior tibial veins. Right superficial veins: Chronic thrombus in the superficial RIGHT greater saphenous vein. Left deep veins: Unremarkable. No DVT in the left common femoral, femoral, proximal deep femoral or popliteal veins. The veins demonstrate normal color flow, are normally compressible, with normal phasic flow and/or augmentation response. Left superficial veins: Unremarkable. No thrombus in the visualized left great saphenous vein. Soft tissues: No acute findings. No popliteal cyst. IMPRESSION: 1. Positive for DVT in 1 of the 2 RIGHT posterior tibial veins. 2. Chronic thrombus in the superficial RIGHT greater saphenous vein. Electronically signed by: Sukhdev Callahan MD 10/05/22 21:09 PM PG Care Time/CCT Total # of Minutes Spent Total Time Spent with Patient: Total time spent is greater than 50% in coordination of care (as documented) at patient's floor/unit and/or counseling patient: Coding Level of Care Code 26369 IN/OBS CONSULT LVL 4,60M History Expanded Problem Focused Exam Expanded Problem Focused Medical Decision Making Moderate Complexity Diagnoses Right leg DVT I82.401
[2022-10-06] MEDS: ACETAMINOPHEN 325 MG TAB PO PRN (19:53)
[2022-10-07] MEDS: HEPARIN SODIUM/DEXTROSE 25,000 UNITS/500 ML BAG IV SCH (05:01)
[2022-10-07 05:48] LABS: Basophils # (auto) 0.01 K/uL (0-0.2); Basophils % (auto) 0.2 %; Eosinophils # (auto) 0.05 K/uL (0-0.50); Hematocrit (blood only) 30.8 % (37.0-47.0); Hemoglobin 10.2 g/dl (12.0-16.0); Immature Granulocytes # (auto) 0.01 K/uL (0.01-0.20); Immature Granulocytes % (auto) 0.2 %; Lymphocytes # (auto) 1.08 K/uL (1.2-3.4); Lymphocytes % (auto) 21.2 %; Mean Corpuscular Hemoglobin 32.9 pg (25.0-34.0); Mean Corpuscular Hgb Conc 33.1 g/dL (32.0-36.0); Mean Corpuscular Volume 99.4 fL (80.0-100.0); Mean Platelet Volume 11.9 fL (9.4-12.4); Monocytes # (auto) 0.47 K/uL (0.11-0.59); Monocytes % (auto) 9.2 %; Neutrophils # (auto) 3.48 K/uL (1.40-6.50); Neutrophils % (auto) 68.2 %; Platelet Count 105 K/uL (130-400); RDW Coefficient of Variation 14.3 % (11.5-14.5); RDW Standard Deviation 52.1 fL (36.4-46.3)
[2022-10-07 06:05] LABS: Albumin Globulin Ratio 1.4 (0.9-2); BUN Creatinine Ratio 18.7 (10-20); Bilirubin,Total 0.3 mg/dl (0.2-1.0); Calcium 8.4 mg/dl (8.6-10.3); Creatinine Clr Calc Pharmacy 58.4 ml/min; Est GFR (African American) 90.4 ml/min; Globulin 2.2 gm/dl (2.5-4.0); Magnesium 1.6 mg/dl (1.7-2.4); Phosphorus 1.8 mg/dl (2.5-4.9); Potassium 3.8 mmol/L (3.5-5.1); Total Protein 5.2 gm/dl (6.0-8.3)
[2022-10-07 06:32] LABS: Partial Thromboplastin Ratio 1.6
[2022-10-07 06:42] LABS: Partial Thromboplastin Time 45.1 Seconds (21.0-31.0)
[2022-10-07] MEDS: VENLAFAXINE HCL XR 150 MG CAPXR PO SCH (08:15)
[2022-10-07] MEDS: ASPIRIN 81 MG ECTAB PO SCH (08:15)
[2022-10-07] MEDS: levETIRAcetam 500 MG in 0.9 % SODIUM CHLORIDE 100 ML IV SCH ×2 (08:16→20:23)
[2022-10-07] MEDS: PANTOprazole 40 MG TAB PO SCH (08:16)
[2022-10-07] MEDS: cloNIDine HCL 0.1 MG TAB PO SCH (08:16)
[2022-10-07] MEDS: CYANOCOBALAMIN (B-12) 500 MCG TABLET PO SCH (08:16)
[2022-10-07] MEDS: DAPTOmycin 350 MG in SYRINGE 0 ML IV SCH (08:32)
[2022-10-07 10:11] LABS: Codeine Urine NEGATIVE ng/mL (<50); Hydrocodone Urine NEGATIVE ng/mL (<50); Hydromor Urine NEGATIVE ng/mL (<50); Morphine Urine NEGATIVE ng/mL (<50); Norhydrocodone Conf Ur NEGATIVE ng/mL (<50); Noroxycodone Urine >10000 ng/mL (<50); Oxycodone Urine 2960 ng/mL (<50); Oxymorph Urine 2560 ng/mL (<50)
--- NOTE | 2022-10-07 13:57 | CT Scan Report ---
CT OF THE RIGHT KNEE WITHOUT CONTRAST CLINICAL HISTORY: Right knee pain, edema. COMPARISON STUDY: Right knee radiographs October 05, 2022. TECHNIQUE: Axial images of the right knee were obtained without IV contrast. Sagittal and coronal rec onstructions were viewed. Automated exposure control was utilized for the study. A dose lowering hua hnique was utilized adhering to the principles of ALARA FINDINGS: Alignment of the right knee is anatomic. There is no acute fracture. No osseous lesion is n oted. A small popliteal cyst measures 3.3 x 1.8 x 1.2 cm. There is a small joint effusion. The joint spaces are preserved. There is mild osteophytosis of the right knee. No fluid collection is present. There is no soft tissue gas. The adjacent musculature is unremarkable by CT. IMPRESSION: 1. No acute fracture. 2. Mild right knee osteoarthritis. 3. Small joint effusion and a small popliteal cyst. ACT 112: Negative or not required by law. Electronically signed by: Korey Cobb M.D. 10/07/2022 1:56 PM
[2022-10-07] MEDS: cefTRIAXone SODIUM 1,000 MG in DEXTROSE 5% AD-VAN 50 ML IV SCH (14:05)
[2022-10-07] MEDS ORDERED: MAGNESIUM SULFATE / D5W 1 GM/100 ML BAG IV ONE (14:33)
--- NOTE | 2022-10-07 15:16 | Neurology Progress Note ---
Date of Service October 07, 2022 Assessment & Plan (1) Myoclonic jerking: Plan A 77 year old female admitted with encephalopathy and possible seizure. EEG negative for epileptiform discharges or spike and wave. No involuntary movements or myoclonic jerks noted on examine this afternoon. Recommend to continue Keppra 500 mg BID as patient is tolerating well and denies any further myoclonic jerks. Recommend outpatient neurology follow up to consider where this should be continued or weaned off. PLease contact with any additional questions or concerns. Admission and Anticipated Discharge Date Admission Date: October 05, 2022 Subjective Patient was seen and examined this afternoon. She is awake and alert. Following command. Reports feeling tired but feeling better. Denies any involuntary movements. Physical Exam Physical Exam: Awake and alert. Face symmetric. Eyes midline. EOMI. No tremor or myoclonic jerks noted. No asterixis. No dysmetria. Sensation intact. Results & Data Vital Signs (Past 12 Hours) Vital Signs Temp Pulse Resp BP Pulse Ox O2 Del Method 10/07/22 11:54 37.5 C 78 18 131/71 94 Room Air 10/07/22 07:52 Room Air 10/07/22 07:47 37.2 C 84 18 170/75 H 93 Room Air Diagnostic Findings EEG Negative for epileptiform activity.
--- NOTE | 2022-10-07 15:28 | Electrocardiogram Report ---
Test Reason : Blood Pressure : / mmHG Vent. Rate : 085 BPM Atrial Rate : 085 BPM P-R Int : 156 ms QRS Dur : 136 ms QT Int : 430 ms P-R-T Axes : 077 -37 066 degrees QTc Int : 511 ms Atrial-sensed ventricular-paced rhythm Abnormal ECG When compared with ECG of 06-OCT-2022 05:12, Vent. rate has decreased BY 13 BPM Confirmed by Craig Frias ([id number]) on 10/07/2022 3:28:04 PM Referred By: REFERRED SELF Confirmed By:Krish Frias
--- NOTE | 2022-10-07 16:29 | Hospitalist Progress Note ---
Date of Service October 07, 2022 Assessment & Plan (1) Altered mental status: (2) MARIELLA (acute kidney injury): (3) CKD (chronic kidney disease), stage III: (4) COPD, group C, by GOLD 2017 classification: (5) Respiratory acidosis: (6) CAD (coronary artery disease): (7) Ischemic cardiomyopathy: (8) HTN (hypertension): (9) Hyperlipidemia: (10) Chronic pain: Plan Per admitting service notes with addendum: 77 year old presented with AMS; found down at home. Work up for AMS, MARIELLA, possible seizures, and syncope as cause. Pt does have a ventricular pacer; will interrogate. 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 Pt independent at baseline. Altered mental status, Multifactorial: Possible seizure Evaluated by neurology service EEG: Pending Brain MRI: cannot be done- PM not compatible with MRI Continue Keppra 500 mg twice daily discussed with Neuro Acute respiratory acidosis From seizure? From oxycodone ABG improving, pH now 7.3, patient is awake and alert DC BiPAP at this point -- resolved patient awake and alert Arrhythmia ruled out Pacemaker check performed: Unrevealing recommended to use Oxycodone only BID Right posterior tibial vein DVT Right greater saphenous vein thrombus, chronic Currently on heparin drip Hematology service consulted -- will transition to Eliquis tonight Possible bacteremia Initial blood cultures: Positive 1 out of 2 bottles for Coag Neg staph Repeat blood cultures: Pending on Ceftriaxone MARIELLA superimposed on CKD stage III: Creatinine 2.23; baseline 1.4 Secondary to dehydration Creatinine now 0.9 CK level 2150--> 1,000s given gentle IV fluid COPD with hypercapnia: Respiratory acidosis: Management per above CAD: Ischemic cardiomyopathy: AAA: HTN: Has V-pacer; will interrogate to r/o syncopal cause Recently had an aortic duplex scan on 09/22: 3.0 cm x 3.0 cm abdominal aortic aneurysm. ECHO: EF 60-65% with trace AR, no pHTN, normal LV wall motion. Takes Lisinopril; hold for now due to MARIELLA Hold Lasix Takes Clonidine HLD: Takes Atorvastatin Chronic pain: Sciatica and feet neuropathy Current Pain Medications: Oxycodone 5 mg PRN, Venlafaxine, Gabapentin and Trazadone HOLD Oxycodone, Gabapentin, and Oxy for AMS; reassess with mental status improves Knee erythema: No leukocytosis WBC 7.[address] scan: no hematoma, fractures monitor GERD: Takes Protonic; continue Disposition: PCP: Dr. Ennis CODE STATUS: Full code VTE prophylaxis: On a heparin drip--> eliquis tonight PT/OT eval patient lives with granddaughter Admission and Anticipated Discharge Date Admission Date: October 05, 2022 Subjective ff up for possible seizure, etc resting in bed, awake, alert, oriented x 3 in good spirits, bright states she feels fine overall no headache, dizziness no chest pain, dyspnea, palpitations, dizziness has mild R knee pain no other pain no bleeding no fever/chills no other symptoms Review of Systems Review of Systems: all noted and negative except for above Physical Exam Physical Exam: General- oriented x 3, not in distress, speaks in sentences with no effort or accessory muscle use Eyes- anicteric Neck- no JVD Lungs- clear breath sounds bilaterally, no rales/wheezes Heart- normal rate, regular rhythm; no murmurs Abdomen- normal bowel sounds, nondistended, soft, nontender Extremities-R knee: mild edema, no warmth, no tenderness, good ROM Neuro- alert, oriented x 3; no gross focal neurologic deficits Skin- warm & dry Results & Data Results & Data Vital Signs (Past 12 Hours) Vital Signs Temp Pulse Resp BP Pulse Ox O2 Del Method 10/07/22 15:50 37.2 C 79 20 151/73 H 94 Room Air 10/07/22 15:41 80 16 158/77 H Room Air 10/07/22 11:54 37.5 C 78 18 131/71 94 Room Air 10/07/22 07:52 Room Air 10/07/22 07:47 37.2 C 84 18 170/75 H 93 Room Air all noted and reviewed including below
[2022-10-07] MEDS ORDERED: POTASSIUM PHOS 3 MMOL/1 ML INFUSION IV STA (16:34)
[2022-10-07] MEDS: MAGNESIUM SULFATE / D5W 1 GM/100 ML BAG IV SCH ×2 (16:39→17:31)
[2022-10-07] MEDS ORDERED: POTASSIUM PHOSPHATE 21 MMOL in SODIUM CHLORIDE 0.9% 500 ML IV ONE (17:00)
[2022-10-07] MEDS ORDERED: HEPARIN STOP ORDER ONE (20:00)
[2022-10-07] MEDS: APIXABAN 5 MG TABLET PO SCH (20:23)
[2022-10-07] MEDS ORDERED: METOPROLOL TARTRATE 1 MG/ML VIAL IV STA (22:13)
[2022-10-08] MEDS ORDERED: METOPROLOL TARTRATE 1 MG/ML VIAL IV ONE (00:25)
[2022-10-08 06:24] LABS: Basophils # (auto) 0.02 K/uL (0-0.2); Basophils % (auto) 0.4 %; Eosinophils # (auto) 0.05 K/uL (0-0.50); Eosinophils % (auto) 1.1 %; Hematocrit (blood only) 31.7 % (37.0-47.0); Hemoglobin 10.7 g/dl (12.0-16.0); Immature Granulocytes # (auto) 0.02 K/uL (0.01-0.20); Immature Granulocytes % (auto) 0.4 %; Lymphocytes # (auto) 0.85 K/uL (1.2-3.4); Lymphocytes % (auto) 18.7 %; Mean Corpuscular Hemoglobin 32.8 pg (25.0-34.0); Mean Corpuscular Hgb Conc 33.8 g/dL (32.0-36.0); Mean Corpuscular Volume 97.2 fL (80.0-100.0); Mean Platelet Volume 11.4 fL (9.4-12.4); Monocytes # (auto) 0.42 K/uL (0.11-0.59); Monocytes % (auto) 9.3 %; Neutrophils # (auto) 3.18 K/uL (1.40-6.50); Neutrophils % (auto) 70.1 %; Platelet Count 116 K/uL (130-400); RDW Coefficient of Variation 13.9 % (11.5-14.5); RDW Standard Deviation 49.2 fL (36.4-46.3); Red Blood Count 3.26 M/uL (4.20-5.40); White Blood Count 4.54 K/ul (4.8-10.8)
[2022-10-08 06:39] LABS: Albumin Globulin Ratio 1.3 (0.9-2); Albumin Level 3.1 gm/dl (3.4-5.0); BUN Creatinine Ratio 11.5 (10-20); Bilirubin,Total 0.3 mg/dl (0.2-1.0); Calcium 8.3 mg/dl (8.6-10.3); Creatinine Clr Calc Pharmacy 69.2 ml/min; Est GFR (African American) 102.8 ml/min; Est GFR (Non-African American) 88.7 ml/min; Globulin 2.3 gm/dl (2.5-4.0); Potassium 3.8 mmol/L (3.5-5.1); Total Protein 5.4 gm/dl (6.0-8.3)
[2022-10-08 06:55] LABS: Partial Thromboplastin Time 29.2 Seconds (21.0-31.0)
[2022-10-08] MEDS: levETIRAcetam 500 MG in 0.9 % SODIUM CHLORIDE 100 ML IV SCH ×2 (08:26→20:42)
[2022-10-08] MEDS: ASPIRIN 81 MG ECTAB PO SCH (08:27)
[2022-10-08] MEDS: METOPROLOL SUCC 50MG EXT REL TAB PO SCH (08:27)
[2022-10-08] MEDS: CYANOCOBALAMIN (B-12) 500 MCG TABLET PO SCH (08:27)
[2022-10-08] MEDS: VENLAFAXINE HCL XR 150 MG CAPXR PO SCH (08:27)
[2022-10-08] MEDS: PANTOprazole 40 MG TAB PO SCH (08:27)
[2022-10-08] MEDS: APIXABAN 5 MG TABLET PO SCH ×2 (08:27→20:42)
[2022-10-08] MEDS: cloNIDine HCL 0.1 MG TAB PO SCH (08:27)
[2022-10-08] MEDS: ACETAMINOPHEN 325 MG TAB PO PRN (11:55)
--- NOTE | 2022-10-08 16:55 | Hospitalist Progress Note ---
Date of Service October 08, 2022 Assessment & Plan (1) Altered mental status: (2) MARIELLA (acute kidney injury): (3) CKD (chronic kidney disease), stage III: (4) COPD, group C, by GOLD 2017 classification: (5) Respiratory acidosis: (6) CAD (coronary artery disease): (7) Ischemic cardiomyopathy: (8) HTN (hypertension): (9) Hyperlipidemia: (10) Chronic pain: Plan Per admitting service notes with addendum: 77 year old presented with AMS; found down at home. Work up for AMS, MARIELLA, possible seizures, and syncope as cause. Pt does have a ventricular pacer; will interrogate. 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 Pt independent at baseline. Altered mental status, Multifactorial: Possible seizure Evaluated by neurology service EEG: Pending Brain MRI: cannot be done- PM not compatible with MRI Continue Keppra 500 mg twice daily discussed with Neuro -- tolerating Keppra well Acute respiratory acidosis From seizure? From oxycodone ABG improving, pH now 7.3, patient is awake and alert DC BiPAP at this point -- resolved patient awake and alert Arrhythmia ruled out Pacemaker check performed: Unrevealing recommended to use Oxycodone only BID Right posterior tibial vein DVT Right greater saphenous vein thrombus, chronic Currently on heparin drip Hematology service consulted -- tolerating Eliquis well Possible bacteremia Initial blood cultures: Positive 1 out of 2 bottles for Coag Neg staph Repeat blood cultures: negative d/c Ceftri check for Cdiff MARIELLA superimposed on CKD stage III: Creatinine 2.23; baseline 1.4 Secondary to dehydration Creatinine now 0.9 CK level 2150--> 1,000s given gentle IV fluid COPD with hypercapnia: Respiratory acidosis: Management per above CAD: Ischemic cardiomyopathy: AAA: HTN: Has V-pacer; will interrogate to r/o syncopal cause Recently had an aortic duplex scan on 09/22: 3.0 cm x 3.0 cm abdominal aortic aneurysm. ECHO: EF 60-65% with trace AR, no pHTN, normal LV wall motion. Resume Lisinopril Takes Clonidine HLD: Takes Atorvastatin Chronic pain: Sciatica and feet neuropathy Current Pain Medications: Oxycodone 5 mg PRN, Venlafaxine, Gabapentin and Trazadone HOLD Oxycodone, Gabapentin, and Oxy for AMS; reassess with mental status improves Knee erythema: No leukocytosis WBC 7.[address] scan: no hematoma, fractures monitor GERD: Takes Protonic; continue Disposition: PCP: Dr. Ennis CODE STATUS: Full code VTE prophylaxis: On a heparin drip--> eliquis tonight anticipate d/c home tomorrow Admission and Anticipated Discharge Date Admission Date: October 05, 2022 Subjective ff up for altered mental status, etc seen resting bed, sitting up in good spirits, bright, alert states she feels much better overall denies headache, dizziness, neuro deficits no chest pain, dyspnea, palpitations, dizziness no fever/chills (+) 3 diarrhea episodes no other symptoms eager for discharge Review of Systems Review of Systems: all noted and negative except for above Physical Exam Physical Exam: General- oriented x 3, not in distress, speaks in sentences with no effort or accessory muscle use Eyes- anicteric Neck- no JVD Lungs- clear BS BL Heart- normal rate, regular rhythm; no murmurs Abdomen- normal bowel sounds, nondistended, soft, no tenderness Extremities- R knee: edema improving no pretibial edema, no calf tenderness Neuro- alert, oriented x 3; no gross focal neurologic deficits Skin- warm & dry Results & Data Results & Data Vital Signs (Past 12 Hours) Vital Signs Temp Pulse Pulse Resp BP BP Pulse Ox 10/08/22 15:08 36.8 C 69 16 163/80 H 95 10/08/22 11:28 37.4 C 64 18 142/75 H 95 10/08/22 08:00 80 10/08/22 07:09 36.9 C 84 17 155/81 H 94 O2 Del Method 10/08/22 15:08 Room Air 10/08/22 11:28 Room Air 10/08/22 08:00 10/08/22 07:09 Room Air all noted and reviewed including below
[2022-10-08] MEDS: lisinopril 20 MG TAB PO SCH (18:10)
[2022-10-09 06:36] LABS: Basophils # (auto) 0.02 K/uL (0-0.2); Basophils % (auto) 0.4 %; Eosinophils # (auto) 0.05 K/uL (0-0.50); Eosinophils % (auto) 1.1 %; Hematocrit (blood only) 31.6 % (37.0-47.0); Hemoglobin 10.5 g/dl (12.0-16.0); Immature Granulocytes # (auto) 0.02 K/uL (0.01-0.20); Immature Granulocytes % (auto) 0.4 %; Lymphocytes # (auto) 1.01 K/uL (1.2-3.4); Mean Corpuscular Hemoglobin 32.7 pg (25.0-34.0); Mean Corpuscular Hgb Conc 33.2 g/dL (32.0-36.0); Mean Corpuscular Volume 98.4 fL (80.0-100.0); Mean Platelet Volume 11.4 fL (9.4-12.4); Monocytes # (auto) 0.44 K/uL (0.11-0.59); Monocytes % (auto) 9.6 %; Neutrophils # (auto) 3.05 K/uL (1.40-6.50); Neutrophils % (auto) 66.5 %; Platelet Count 125 K/uL (130-400); RDW Coefficient of Variation 14.1 % (11.5-14.5); Red Blood Count 3.21 M/uL (4.20-5.40); White Blood Count 4.59 K/ul (4.8-10.8)
[2022-10-09 06:56] LABS: Albumin Globulin Ratio 1.4 (0.9-2); Albumin Level 3.2 gm/dl (3.4-5.0); BUN Creatinine Ratio 13.2 (10-20); Bilirubin,Total 0.2 mg/dl (0.2-1.0); Calcium 8.5 mg/dl (8.6-10.3); Creatinine Clr Calc Pharmacy 62.4 ml/min; Est GFR (African American) 99.2 ml/min; Est GFR (Non-African American) 85.6 ml/min; Globulin 2.3 gm/dl (2.5-4.0); Potassium 3.9 mmol/L (3.5-5.1); Total Protein 5.5 gm/dl (6.0-8.3)
--- NOTE | 2022-10-09 07:38 | Hospitalist Progress Note ---
Date of Service October 09, 2022 Assessment & Plan (1) Right leg DVT: Plan: Uneventful transition from heparin to apixaban and from the strict standpoint of DVT is currently stable. Would continue treatment for at least 3 months but thereafter as this would qualify as a "provoked" event, in the absence of new concerns or issues could discontinue anticoagulation at that time. Combination of anticoagulation and antiplatelet therapy is certainly commonly needed approach but one associated with increased bleeding risk. Should be sure patient and her caregivers are aware and monitoring ongoing for any signs of such Plan Stable on apixaban, should continue for 3 months of anticoagulation and then after review of intervening situation consider its discontinuation and close monitoring. She will be at some risk for future DVT based on postphlebitic changes in her vascular valves Monitor for any signs of bleeding particularly as she is on dual anticoagulation and antiplatelet therapy We will sign off but are happy to see the patient in follow-up as an outpatient if additional questions or concerns arise Admission and Anticipated Discharge Date Admission Date: October 05, 2022 Subjective Stable with transition to apixaban Physical Exam Physical Exam: VSS Results & Data Results & Data Vital Signs (Past 12 Hours) Vital Signs Temp Pulse Resp BP BP Pulse Ox O2 Del Method 10/09/22 03:31 171/88 H 10/09/22 02:38 36.5 C 77 18 96 Room Air 10/08/22 22:51 37.2 C 72 18 156/85 H 95 Room Air PG Care Time/CCT Total # of Minutes Spent Total Time Spent with Patient: Total time spent is greater than 50% in coordination of care (as documented) at patient's floor/unit and/or counseling patient: Coding Level of Care Code None Diagnoses Right leg DVT I82.401
[2022-10-09] MEDS: lisinopril 20 MG TAB PO SCH (08:14)
[2022-10-09] MEDS: VENLAFAXINE HCL XR 150 MG CAPXR PO SCH (08:15)
[2022-10-09] MEDS: METOPROLOL SUCC 50MG EXT REL TAB PO SCH (08:15)
[2022-10-09] MEDS: CYANOCOBALAMIN (B-12) 500 MCG TABLET PO SCH (08:15)
[2022-10-09] MEDS: PANTOprazole 40 MG TAB PO SCH (08:15)
[2022-10-09] MEDS: cloNIDine HCL 0.1 MG TAB PO SCH (08:15)
[2022-10-09] MEDS: APIXABAN 5 MG TABLET PO SCH (08:16)
[2022-10-09] MEDS: ASPIRIN 81 MG ECTAB PO SCH (08:16)
[2022-10-09] MEDS: levETIRAcetam 500 MG in 0.9 % SODIUM CHLORIDE 100 ML IV SCH (10:26)
--- NOTE | 2022-10-09 19:13 | Hospitalist Progress Note ---
Date of Service October 09, 2022 Assessment & Plan (1) Altered mental status: (2) MARIELLA (acute kidney injury): (3) CKD (chronic kidney disease), stage III: (4) COPD, group C, by GOLD 2017 classification: (5) Respiratory acidosis: (6) CAD (coronary artery disease): (7) Ischemic cardiomyopathy: (8) HTN (hypertension): (9) Hyperlipidemia: (10) Chronic pain: Plan Per admitting service notes with addendum: 77 year old presented with AMS; found down at home. Work up for AMS, MARIELLA, possible seizures, and syncope as cause. Pt does have a ventricular pacer; will interrogate. 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 Pt independent at baseline. Altered mental status, Multifactorial: Possible seizure Evaluated by neurology service EEG: In summary, this EEG Showed evidence of some very mild generalized dysrhythmia during the wakeful state, with no further activation during drowsiness or sleep. No focal abnormalities or, potentially epileptogenic di scharges were seen. Brain MRI: cannot be done- PM not compatible with MRI Recommend Keppra 500 mg twice daily -- tolerating Keppra well Acute respiratory acidosis From seizure? From oxycodone Hypercapnia resolved with BiPAP -- resolved patient awake and alert -- Recommend to limit oxycodone use Arrhythmia ruled out Pacemaker check performed: Unrevealing Right posterior tibial vein DVT Right greater saphenous vein thrombus, chronic Currently on heparin drip Hematology service consulted Dr. Bettencourt-recommend Eliquis twice daily "continue treatment for at least 3 months but thereafter as this would qualify as a "provoked" event, in the absence of new concerns or issues could discontinue anticoagulation at that time." -- tolerating Eliquis well Monitor closely as patient is also on aspirin Bacteremia ruled out Initial blood cultures: Positive 1 out of 2 bottles for Coag Neg staph Repeat blood cultures: negative d/c Ceftri MARIELLA superimposed on CKD stage III: Creatinine 2.23; baseline 1.4 Secondary to dehydration Creatinine now 0.9 CK level 2150--> 1,000s given gentle IV fluid COPD with hypercapnia: Respiratory acidosis: Management per above CAD: Ischemic cardiomyopathy: AAA: HTN: Has V-pacer; will interrogate to r/o syncopal cause Recently had an aortic duplex scan on 09/22: 3.0 cm x 3.0 cm abdominal aortic aneurysm. ECHO: EF 60-65% with trace AR, no pHTN, normal LV wall motion. Resume Lisinopril Takes Clonidine HLD: Takes Atorvastatin Chronic pain: Sciatica and feet neuropathy Current Pain Medications: Oxycodone 5 mg PRN, Venlafaxine, Gabapentin and Trazadone Advised to limit oxycodone use Gabapentin decreased to 300 mg daily, then stop, in light of addition of Keppra for possible seizure Knee erythema: No leukocytosis WBC 7.[address] scan: no hematoma, fractures Likely secondary to fall Improved, no problems ambulating GERD: Takes Protonic; continue Disposition: Discharge to home Follow-up with PCP in 1 week Admission and Anticipated Discharge Date Admission Date: October 05, 2022 Subjective Follow-up for altered mental status, etc. Seen resting in bed, comfortable, not in distress In good spirits States she feels much better overall No headache, dizziness, drowsiness, neurologic deficits No abdominal pain, nausea vomiting, chest pain, shortness of breath Ambulating in the room with no problems No other symptoms States she is ready for discharge Review of Systems Review of Systems: all noted and negative except for above Physical Exam Physical Exam: General- oriented x 3, not in distress, speaks in sentences with no effort or accessory muscle use Eyes- anicteric Neck- no JVD Lungs- clear breath sounds bilaterally, no rales/wheezes Heart- normal rate, regular rhythm; no murmurs Abdomen- normal bowel sounds, nondistended, soft, nontender Extremities- no pretibial edema, no calf tenderness Neuro- alert, oriented x 3; no gross focal neurologic deficits Skin- warm & dry Results & Data Results & Data Vital Signs (Past 12 Hours) Vital Signs Temp Pulse Resp BP BP Pulse Ox O2 Del Method 10/09/22 11:11 36.4 C L 63 18 157/81 H 97 Room Air 10/09/22 11:04 37.0 C 81 16 156/85 H 144/92 H 93 10/09/22 07:33 37.0 C 81 16 144/92 H 93 Room Air all noted and reviewed including below
--- NOTE | 2022-10-10 16:42 | Discharge Summary ---
Discharge Summary Date of Service October 10, 2022 Notes For Next Care Provider Medication Changes From Visit KEPPRA- for treatment of seizure ELIQUIS- blood thinner, treatment for blood clot in the leg - take 10mg twice a day, until October 14, 2022, then take 5mg twice a day Gabapentin decreased to 300 mg daily Admission HPI Per Admitting Provider Ms. Tong is a 77-year-old female that presented to the [facility] ED via EMS after family found her down on the floor with altered mental status. Patient last well seen 3 days ago. EMS gave Narcan due to chronic oxycodone use for chronic pain with minimal change after administration. Patient does have known history of alcohol use. Patient found to be hypotensive and given 800 mL fluid resuscitation prior to arrival to ED. In the ED, numerous imaging studies performed including cervical spine CT, head CT, chest x-ray, hip pelvic x-ray; all unremarkable outside of osteopenia. On arrival patient was AAO x3 with only complaint being left side pain due to her laying on her left side for numerous days. Patient denies history of seizures. 1L NSB in ED; SBP mid 90s. Nursing reported rhythmic shaking to ED physician started on Keppra and received a total of 3 mg of Ativan over a few hour period. Pt son Earl said she was complaining of not feeling well and had some (approximately 3) episodes of vomiting; was able to tolerate eating toast. Son said she did say it did not have blood in it. Patient VBG respiratory acidosis; pH 7.23, CO2 64. BUN 50, creatinine 2.23 (baseline 1.4), CK 2701, troponin 9.8, procalcitonin negative, drugs screen pending. Recently had an aortic duplex scan on 09/22: 3.0 cm x 3.0 cm abdominal aortic aneurysm. ECHO in ED: EF 60-65% with trace AR, no pHTN, normal LV wall motion. Additional PMH includes: AAA, ischemic cardiomyopathy with left bundle branch block, CAD AMI 2006 status post PCI with stent to RCA, COPD, CKD, osteoarthritis, HLD. Patient does hav chronic sciatica pain; Previous medications that patient took for pain that did not provide relief: Tylenol , Percocet Vicodin and Cymbalta 60 mg daily -nausea. Currently patient takes Oxy PRN, Velafaxine, Gabapentin and Trazadone; will hold sedative meds. Upon examination patient is obtunded likely secondary to Ativan administration. Patient does grimace with pressing on her abdomen and per attending physician who saw her separately did say she had pain in her leg. Patient left leg is greater in size than the right for which we will rule out DVT as she may have had a syncopal episode. Patient unable to participate in ROS. Patient will be admitted for further evaluation and management. Please see A/P for further details. Admission Exam Per Admitting Provider Neuro: AAOx4, PERRLA, no aphagia, memory changes, CNII-XII grossly intact HEENT: head normocephalic, moist mucus membranes CV: S1/S2, (-) M/G/R, (-) edema, cap refill < 3 seconds Resp: Lungs CTA in all gutierrez. On RA; placing on bipap for respiratory acidosis GI: Abdomen S/NT/ND, no grimacing with palpation, Ax4 bowel sounds, (-) CVA tenderness Musculoskeletal: unable to participate Skin: (-) rashes , (+) erythema over right knee. Psych: euthymic mood Principal Dx & Hospital Course #1 = Principal Diagnosis (1) Altered mental status: (2) MARIELLA (acute kidney injury): (3) CKD (chronic kidney disease), stage III: (4) COPD, group C, by GOLD 2017 classification: (5) Respiratory acidosis: (6) CAD (coronary artery disease): (7) Ischemic cardiomyopathy: (8) HTN (hypertension): (9) Hyperlipidemia: (10) Chronic pain: Plan Per admitting service notes with addendum: 77 year old presented with AMS; found down at home. Work up for AMS, MARIELLA, possible seizures, and syncope as cause. Pt does have a ventricular pacer; will interrogate. Additional PMH includes: COPD with hypercapnia, CAD, AAA, ischemic [employer], HTN, HLD, MARIELLA superimposed on CKD stage III, and GERD. Pt independent at baseline. Altered mental status, Multifactorial: Possible seizure Evaluated by neurology service EEG: In summary, this EEG Showed evidence of some very mild generalized dysrhythmia during the wakeful state, with no further activation during drowsiness or sleep. No focal abnormalities or, potentially epileptogenic discharges were seen. Brain MRI: cannot be done- PM not compatible with MRI Recommend Keppra 500 mg twice daily -- tolerating Keppra well Acute respiratory acidosis From seizure? From oxycodone Hypercapnia resolved with BiPAP -- resolved patient awake and alert -- Recommend to limit oxycodone use Arrhythmia ruled out Pacemaker check performed: Unrevealing Right posterior tibial vein DVT Right greater saphenous vein thrombus, chronic Currently on heparin drip Hematology service consulted Dr. Bettencourt-recommend Eliquis twice daily "continue treatment for at least 3 months but thereafter as this would qualify as a "provoked" event, in the absence of new concerns or issues could discontinue anticoagulation at that time." -- tolerating Eliquis well Monitor closely as patient is also on aspirin Bacteremia ruled out Initial blood cultures: Positive 1 out of 2 bottles for Coag Neg staph Repeat blood cultures: negative d/c Ceftri Abnormal CT findings Indeterminate asymmetric soft tissue fullness within the right nasopharynx. Correlation with direct visualization recommended in order to exclude an underlying mucosal lesion.. Further work up, management, and ff up as outpatient MARIELLA superimposed on CKD stage III: Creatinine 2.23; baseline 1.4 Secondary to dehydration Creatinine now 0.9 CK level 2150--> 1,000s given gentle IV fluid COPD with hypercapnia: Respiratory acidosis: Management per above CAD: Ischemic cardiomyopathy: AAA: HTN: Has V-pacer; will interrogate to r/o syncopal cause Recently had an aortic duplex scan on 09/22: 3.0 cm x 3.0 cm abdominal aortic aneurysm. ECHO: EF 60-65% with trace AR, no pHTN, normal LV wall motion. Resume Lisinopril Takes Clonidine HLD: Takes Atorvastatin Chronic pain: Sciatica and feet neuropathy Current Pain Medications: Oxycodone 5 mg PRN, Venlafaxine, Gabapentin and Trazadone Advised to limit oxycodone use Gabapentin decreased to 300 mg daily, then stop, in light of addition of Keppra for possible seizure Knee erythema: No leukocytosis WBC 7.[address] scan: no hematoma, fractures Likely secondary to fall Improved, no problems ambulating GERD: Takes Protonic; continue Disposition: Discharge to home Follow-up with PCP in 1 week Discharge Exam General- oriented x 3, not in distress, speaks in sentences with no effort or accessory muscle use Eyes- anicteric Neck- no JVD Lungs- clear breath sounds bilaterally, no rales/wheezes Heart- normal rate, regular rhythm; no murmurs Abdomen- normal bowel sounds, nondistended, soft, nontender Extremities- no pretibial edema, no calf tenderness Neuro- alert, oriented x 3; no gross focal neurologic deficits Skin- warm & dry Updated Medication List Medication Instructions Recorded Confirmed Type aspirin 81 mg tablet,delayed 81 mg PO DAILY ##0 03/30/17 10/05/22 History release clonidine HCl 0.1 mg tablet 0.1 mg PO DAILY #0 tabs 03/30/17 10/05/22 History nitroglycerin 0.4 mg sublingual 0.4 mg sublingual UD #0 BTLS 03/30/17 10/05/22 History tablet pantoprazole 40 mg tablet,delayed 40 mg PO DAILY #30 tabs 03/30/17 10/05/22 History release albuterol sulfate 90 mcg/actuation 2 puff inhalation Q4H SOB/Wheezing 07/27/17 10/05/22 History aerosol inhaler ##0 lisinopril 20 mg tablet 20 mg PO DAILY ##0 07/27/17 10/05/22 History metoprolol succinate 100 mg 100 mg PO DAILY #0 tabs 07/27/17 10/05/22 History tablet,extended release 24 hr oxycodone 5 mg tablet 5 mg PO QID PRN Severe Pain (Scale 08/16/20 10/05/22 History Score 7-10) trazodone 50 mg tablet 25 mg PO HS 08/16/20 10/05/22 History atorvastatin 40 mg tablet 40 mg PO DAILY 10/05/22 10/05/22 History cyanocobalamin (vitamin B-12) 1,000 mcg PO QAM 10/05/22 10/05/22 History 1,000 mcg tablet furosemide 40 mg tablet 40 mg PO DAILY 10/05/22 10/05/22 History nystatin 100,000 unit/gram topical 1 applic topical BID Rash on chest 10/05/22 10/05/22 History ointment potassium chloride 20 mEq 20 meq PO DAILY 10/05/22 10/05/22 History tablet,extended release(part/cryst) venlafaxine 150 mg 150 mg PO DAILY 10/05/22 10/05/22 History capsule,extended release 24 hr apixaban 5 mg tablet (Eliquis) 5 mg PO BID #45 tabs 10/09/22 Rx gabapentin 300 mg capsule 300 mg PO DAILY 7 days #0 caps 10/09/22 10/05/22 Rx levetiracetam 500 mg tablet 500 mg PO BID 30 days #60 tabs 10/09/22 Rx Hospital Stay Data Consultations 10/05/22 11:59 ED Decision to Admit Stat 10/05/22 12:12 Consult Neurology Routine 10/06/22 08:00 Consult Hematology Routine Diagnostic Imagining Performed 10/05/22 09:16 CT cervical spine wo con Stat FINDINGS: Skeletal structures: The skeletal structures are osteopenic. There is no evidence of fracture or subluxation involving the cervical spine. Vertebral body height and alignment are maintained. There is straightening of the cervical lordosis. Anterior osteophytes are seen throughout. The odontoid process and lateral masses are intact. The atlantoaxial articulation is preserved noting advanced productive degenerative change. The spinous processes appear intact. There is a mild chronic superior endplate compression deformity of T3. There is moderate multilevel cervical spondylosis. Uncovertebral and facet arthropathy contribute to neural foraminal narrowing at several levels. Intervertebral discs: There is moderate disc space narrowing at C5-C6. Mild narrowing is seen at the remaining cervical levels. Central canal: A posterior disc osteophyte complex at C5-C6 may contribute to acquired compromise of the central canal. Soft tissues: The prevertebral and paraspinous soft tissues are within normal limits. There is atherosclerotic calcification of the carotid bulbs. Pacemaker leads are seen at the left thoracic inlet. Calvarium: The visualized calvarium at the skull base appears intact. Brain parenchyma: Partially visualized brain parenchyma at the skull base is within normal limits. Sinuses and mastoids: The visualized paranasal sinuses are clear. The mastoid air cells are well pneumatized. Lung apices: Clear as visualized. IMPRESSION: 1. There is no evidence of fracture or subluxation involving the cervical spine. 2. Osteopenia and spondylotic change as above. ACT 112: Negative or not required by law. CT head/brain wo con Stat COMPARISON: CT cervical spine of same day, head CT 03/30/2017 FINDINGS: No acute intracranial hemorrhage, midline shift, intracranial mass, h ydrocephalus, territorial ischemia or abnormal extra-axial collection. Involutional changes with chronic microvascular ischemic disease. The study is motion degraded. There is also streak artifact from the patient's bilateral rings. The calvarium is intact. Prior bilateral lens repair. Asymmetric soft tissue fullness is noted within the right nasopharynx nasopharynx measuring 2.9 x 1.9 cm, similar in appearance to the 2017 study. The paranasal sinuses, mastoid air cells, and middle ear cavities are clear. IMPRESSION: 1. Motion degraded exam without acute intracranial abnormality identified. 2. Indeterminate asymmetric soft tissue fullness within the right nasopharynx. Correlation with direct visualization recommended in order to exclude an underlying mucosal lesion.. ACT 112: Negative or not required by law. 10/05/22 12:15 US Kidney Bladder [US renal/blad retro comp] Routine IMPRESSION: 1. The kidneys are normal in size and without hydronephrosis. 2. Right-sided nephrolithiasis. 3. The bladder was decompressed around a Horne catheter and not well evaluated. ACT 112: Negative or not required by law. 10/05/22 13:22 US venous duplex leg [US venous doppler LE BI] Stat FINDINGS: Right deep veins: Positive for DVT in 1 of the 2 RIGHT posterior tibial veins. Right superficial veins: Chronic thrombus in the superficial RIGHT greater saphenous vein. Left deep veins: Unremarkable. No DVT in the left common femoral, femoral, proximal deep femoral or popliteal veins. The veins demonstrate normal color flow, are normally compressible, with normal phasic flow and/or augmentation response. Left superficial veins: Unremarkable. No thrombus in the visualized left great saphenous vein. Soft tissues: No acute findings. No popliteal cyst. IMPRESSION: 1. Positive for DVT in 1 of the 2 RIGHT posterior tibial veins. 2. Chronic thrombus in the superficial RIGHT greater saphenous vein. 10/07/22 11:15 CT knee RT wo con Routine FINDINGS: Alignment of the right knee is anatomic. There is no acute fracture. No osseous lesion is noted. A small popliteal cyst measures 3.3 x 1.8 x 1.2 cm. There is a small joint effusion. The joint spaces are preserved. There is mild osteophytosis of the right knee. No fluid collection is present. There is no soft tissue gas. The adjacent musculature is unremarkable by CT. IMPRESSION: 1. No acute fracture. 2. Mild right knee osteoarthritis. 3. Small joint effusion and a small popliteal cyst. ACT 112: Negative or not required by law. Pending Results Patient Have Any Pending Studies at Discharge: No Discharge Instructions Given to Patient (Per Discharging Provider) PLEASE REFER TO YOUR NEW MEDICATION LIST AND FOLLOW INSTRUCTIONS CAREFULLY. YOUR NEW MEDICATIONS INCLUDE: KEPPRA- for treatment of seizure ELIQUIS- blood thinner, treatment for blood clot in the leg - take 10mg twice a day, until October 14, 2022, then take 5mg twice a day PLEASE CALL YOUR PRIMARY CARE PHYSICIAN OR RETURN TO THE ER IF WITH WORSENING OF SYMPTOMS, INCLUDING altered mental state, confusion, seizure, headache, dizziness, chest pain, shortness of breath, leg pain or swelling, bleeding, etc FOLLOW UP WITH PRIMARY CARE PHYSICIAN IN 1 WEEK. THE CLINIC WILL BE CALLING YOU SOON FOR THE APPOINTMENT. FOLLOW UP WITH NEUROLOGIST DR. PALMA IN 2-3 WEEKS. PLEASE CALL HIS OFFICE FOR AN APPOINTMENT. CONTACT INFORMATION OUTLINED ABOVE. NO DRIVING, BATHING IN THE TUB, SWIMMING, OPERATING MACHINERIES, ETC. RETURN TO ER IMMEDIATELY IF YOU HAVE ANY HEAD TRAUMA. TAKE CARE! Total Time Total Time Spent Total Time Spent (In Minutes): >30 minutes
[2022-10-14] MEDS ORDERED: APIXABAN 5 MG TABLET PO SCH (21:00)
== END 2022-10-09 12:32 | disposition home or self-care (01) | DRG 312 ==
LOC: ED 09:09 → 2E 12:12 → SUATTDRO 12:12 → 2E 13:47
DX: Z79.899 Other long term (current) drug therapy; G89.29 Other chronic pain; K21.9 Gastro-esophageal reflux disease without esophagitis; Z88.5 Allergy status to narcotic agent; G93.40 Encephalopathy, unspecified; N18.30 Chronic kidney disease, stage 3 unspecified; F17.210 Nicotine dependence, cigarettes, uncomplicated; Z79.82 Long term (current) use of aspirin; N17.9 Acute kidney failure, unspecified; I12.9 Hypertensive chronic kidney disease with stage 1 through stage 4 chronic kidney disease, or unspecified chronic kidney disease; Z88.8 Allergy status to other drugs, medicaments and biological substances; M62.82 Rhabdomyolysis; I82.401 Acute embolism and thrombosis of unspecified deep veins of right lower extremity; J96.02 Acute respiratory failure with hypercapnia; I25.5 Ischemic cardiomyopathy; R55 Syncope and collapse; I25.10 Atherosclerotic heart disease of native coronary artery without angina pectoris; E87.29 Other acidosis; E78.5 Hyperlipidemia, unspecified; Z88.6 Allergy status to analgesic agent; Z79.52 Long term (current) use of systemic steroids; J44.9 Chronic obstructive pulmonary disease, unspecified

== ENCOUNTER 2022-12-17 19:54 | Inpatient (IN) ==
[2022-12-17] MEDS ORDERED: IOVERSOL 350 MG 125mL Prefilled Syringe IV ONE (20:09)
--- NOTE | 2022-12-17 20:11 | Emergency Department Note ---
Impression & Plan Acute CVA (cerebrovascular accident), Acute left-sided weakness, Arm paresthesia, left ED Provider Note Name: JEAN-CLAUDE MIRELES Age: 77 Sex: F Arrives Via: Walk-In Informant: Patient ED Provider: Manny Denney MD Chief Complaint: Left hand weakness Impression: As per impressions above Medical Decision Makin-year-old female with extensive past medical history include CAD, hypertension, cardiomyopathy, migraines, hyperlipidemia, GERD, COPD, CKD, who continues to be a daily smoker who had gone out to her garage to smoke a cigarette. Patient noted left arm paresthesia at around 7 PM and came in by private vehicle for evaluation. In triage nursing noted left arm weakness and leg weakness and thus called stroke alert. I emergently went over to CT to evaluate patient. Patient is very clear on initial arrival that she was awake at 7 PM when she noticed that the hand went numb and then weak. This was confirmed by nursing who are at bedside in CT scanner. She has left arm weakness ataxia and significant decrease sensation of left arm as well as proximal left leg weakness and decreased sensation. She is unable to lift the left leg off the bed even. CT of the head was obtained which on my initial read is negative thus Marta neurology was consulted. Discussed with Dr. Clinton who agreed the patient would likely be a TNKase candidate. Dr. Clinton evaluated the patient via telemetry stroke cart. It was at this point the pat ient actually notes that her stroke symptoms were noted at 7 PM but she had actually taken a nap between 5 PM and 7 PM. She is very clear though that at 5 PM as she was laying down for a nap she had no weakness. She also notes that she does not believe she slept awkwardly on the arm. Patient is still within 4 to 5 hours of initial symptoms even at 5 PM is last known well. Discussed risks benefits with patient x2 both by myself on initial arrival and by Dr. Clinton via telestroke. Patient agrees both times to receive the TNKase and understands the risks of bleeding, allergic reaction, no improvement, etc. She would like to proceed with TNKase. CT head is negative per stat rad for intracranial hemorrhage. I will note there was a slight display just discussing that patient surely is not on Eliquis any longer which she confirms was at least a month ago she last took it and that she has not had any nasal bleeding from the mass seen on CT. At this point TNKase was given at 8:45 PM. Patient did have mildly low blood pressure initially though on repeat when in the room it was systolic 115. She was given a 500 mL IV fluid bolus during her care. There is no evidence of sepsis or cardiac event at this time. Patient was reevaluated multiple times after TNKase. She has no headache abdominal pain, other complaints. Left arm did seem to improve some though she still has a fair amount of contracture of the left hand. Hospitalist was consulted for further management. In short this is a wake-up stroke arrives via private vehicle with acute left- sided weakness and received TNKase while in the ER. Patient has a reported history of seizures but she is adamant she is never act ually had a seizure. This does not appear to be seizure in nature either. Prior Medical Record and Triage/Nursing Notes reviewed by Me External chart reviewed by me including outpatient records Differentials:Stroke, large vessel occlusion, intracranial hemorrhage, mass eff ect, infectious etiology, rhabdo, neuropathy, DVT, atrial occlusion, metabolic abnormality, cardiac source, stroke amongst many other pathologies considered. Vital Signs: reviewed and remarkable for mildly hypotensive on triage with labs resolved on repeat when in the room. Interventions: Normal saline bolus 5 mL IV, TNKase IV Labs:Reviewed and remarkable for no significant abnormalities Imaging:CT of the head without contrast as per my informal interpretation there is no intracranial hemorrhage or mass appreciated. This was confirmed by radiologist who also note a soft tissue mass in the right naris partially visualized EKG:As per my interpretation. Indication strokelike symptoms. Atrial sensed ventricular paced at 71 bpm no ischemia. When compared to EKG of October 07, 2022 there is no significant change. Cardiac/Tele Monitoring: Cardiac Monitoring: An Order was placed for continuous cardiac monitoring. The monitor shows a rate of 70 with a paced rhythm. Consults:Dr Mary Beth Lozano neurologist who agrees with proceeding with TNKase Dr. Leon of [facility] Hospitalist consulted for admission Plan: Disposition:Hospitalization. Condition: Fair History of Present Illness: 77-year-old female arrives for evaluation of cute onset left-sided weakness. Patient states she had gone out to her garage to smoke a cigarette. At about 7 PM she noticed her left hand stopped working. It was associated with lack of sensation in the hand. She also felt like her left leg was a bit weak but she notes that her left leg always feels a bit weak. She immediately was concerned so she went inside and called a friend who drove her to the ER. Patient denies any headache, neck pain, visual changes, abdominal pain, chest pain, nausea, vomiting, fevers, chills or any other concerning signs or symptoms. She had no recent falls, trauma, injuries. Patient recently had a DVT and had been on Eliquis for 3 months. She states she has not been on the Eliquis for the last month now. She does have a history of cardiac disease with a pacemaker and is on aspirin 81 mg daily. She denies any headache, head trauma. She denies any abdominal pain or history of bleeding ulcer. She has not had any other bleeding or black stools recently. She has not had any bruising that she has noticed that is unusual. No medications prior to arrival. Patient denies any previous strokelike symptoms. Of note after evaluation by telestroke neurologist patient admits that she was actually taking a nap which she had gone to sleep at about 5 PM and then woke up at 7 PM when she had noticed the left hand weakness. Past Medical History:CAD, hypertension, cardiomyopathy, migraines, hyperlipidemia, GERD, COPD, CKD, Home Medications:See Below -patient makes clear she has not taken Eliquis in at least 1 month. Allergies:NSAIDs, statins, isosorbide, tramadol Vitals:Blood Pressure: 136/71, Pulse 64, RR 18, T 36.8C, O2 93% on RA Physical Exam: GENERAL: Patient is in appearing and in mild distress. HEAD: AT/NC EYES: No scleral icterus, unremarkable pupils. ENT: Mucous membranes moist, no nasal congestion. NECK: No masses appreciated, nomeningismus, trachea is midline. RESPIRATORY: No dyspnea. Clear to auscultation and equal bilaterally. No wheeze, no rhonchi. CARDIOVASCULAR: Regular rate and rhythm.No murmurs, rubs, gallops appreciated. GASTROINTESTINAL: Abdomen soft, non-tender, no peritonitis.Bowel sounds positive.No masses appreciated. BACK: No midline tenderness, no CVA tenderness EXTREMITIES: no cyanosis, no edema, normal pulses. NEUROLOGIC: Alert and oriented. Patient without any cranial nerve deficits on examination. Patient has 4-5 strength of the left proximal arm, 3-5 strength in the left hand and ataxia of the left hand. She has decreased sensation of the left arm as well. Patient has 4-5 strength proximal left leg with 5 out of 5 distal strength. She has mildly decreased sensation to left leg. Patient with 5 out of 5 strength right arm and leg with no ataxia noted of those extremities. SKIN: No rash, no jaundice, no diaphoresis. PSYCH: Appropriate GCS: 15 ED Course: Times/Reassessments: Stroke alert called from triage and I immediately went to CT to evaluate the patient. 8:01 PM patient arrived to ER stroke alert from triage. 8:08 PM I was at bedside and CT evaluating the patient 8:12 PM paged neurology 8:23 PM Neuro returned call (Dr Clinton) 8:28 PM stat rad reports negative CT head other than mass in the right naris. At this point TNKase was ordered. 8:44 PM decision to give TNKase made. 8:45 PM TNKase given 8:50 PM patient stable still weakness. 9:00 PM patient appears to have some mild improvement in her left arm and leg though still is unable to fully use her left hand Multiple repeat evaluations over the next hour or so patient stable no headache abdominal pain or other concerning signs. She continues to have some ataxia weakness in the left hand but it is markedly improved from arrival Critical Care: I have personally spent 45 minutes of critical care time in the direct management of this patient. Acute stroke requiring stroke alert and thrombolytics given. This was a life/limb threatening event. This 45 minutes is in excess of all separately billable procedures. Manny Denney MD Past Med/Surg History Medical History Acute anterior wall LA Anxiety CAD (coronary artery disease) "LA 2006. S/P PCI/Stent RCA" Chronic hepatitis C without hepatic coma Chronic pain CKD (chronic kidney disease), stage III COPD, group C, by GOLD 2017 classification Elevated troponin GERD (gastroesophageal reflux disease) H/O cardiac pacemaker HTN (hypertension) Hyperlipidemia Hypoxia Ischemic cardiomyopathy LBBB (left bundle branch block) Migraine OA (osteoarthritis) Respiratory acidosis Surgical History H/O release of tendon H/O: hysterectomy History of carpal tunnel surgery History of implantable cardioverter-defibrillator (ICD) placement Hx of cataract surgery S/P cardiac cath S/P cholecystectomy Family History (Updated 10/06/22 @ 09:45 by Silvestre Winter MD) Father , age 81 of lung cancer Prostate cancer Heart disease Thyroid disorder Lung cancer Mother , age 80 with COPD Cancer Cervical Coronary heart disease s/p CABG Diabetes COPD (chronic obstructive pulmonary disease) Social History Smoking Status: Current every day smoker Tobacco Type: Cigarettes Age Started Using Tobacco: 23; packs per day: 0.5; Second Hand Exposure: No; Do You Dip or Chew Tobacco: No; Hx Alcohol Use: No Hx Substance Use: No Preferred Language: [place] Communication Ability: Effective [employer] Required: No Beliefs That Will Affect Care: None Current Living Situation: Family current occupational status: retired 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 [employer] Feels Safe at Home: Yes Assistive Devices: None Allergies Allergies Allergy/AdvReac Type Severity Reaction Status Date / Time NSAIDS (Non-Steroidal AdvReac Severe GI ISSUES Verified 12/17/22 20:25 Anti-Inflamma Suarbyi-TPH-YqZ Reductase AdvReac Severe LIVER Verified 12/17/22 20:25 Inhibitor FUNCTION [Viyekax-Sdn-Yyv Reductase ELEVATES Inhibitor] isosorbide AdvReac Intermediate VOMIT/HEADA Verified 12/17/22 20:25 CARLOS tramadol AdvReac Intermediate VOMITING Verified 12/17/22 20:25 Home Meds Home Medications Medication Instructions Recorded Confirmed aspirin 81 mg tablet,delayed 81 mg PO DAILY ##0 03/30/17 12/17/22 release clonidine HCl 0.1 mg tablet 0.05 mg PO DAILY #0 tabs 03/30/17 12/17/22 nitroglycerin 0.4 mg sublingual 0.4 mg sublingual DIRECTED PRN 03/30/17 12/17/22 tablet Chest Pain #0 BTLS pantoprazole 40 mg tablet,delayed 40 mg PO DAILYBB #30 tabs 03/30/17 12/17/22 release lisinopril 20 mg tablet 20 mg PO DAILY ##0 07/27/17 12/17/22 metoprolol succinate 100 mg 100 mg PO DAILY #0 tabs 07/27/17 12/17/22 tablet,extended release 24 hr oxycodone 5 mg tablet 5 mg PO Q6H PRN Severe Pain (Scale 08/16/20 12/17/22 Score 7-10) trazodone 50 mg tablet 25 mg PO HS 08/16/20 12/17/22 atorvastatin 40 mg tablet 20 mg PO DAILY 10/05/22 12/17/22 furosemide 40 mg tablet 40 mg PO DAILY 10/05/22 12/17/22 potassium chloride 20 mEq 20 meq PO DAILY 10/05/22 12/17/22 tablet,extended release(part/cryst) venlafaxine 150 mg 150 mg PO HS 10/05/22 12/17/22 capsule,extended release 24 hr albuterol sulfate 90 mcg/actuation 2 puff inhalation Q4H PRN 12/17/22 12/17/22 aerosol inhaler Shortness Of Breath Or Wheezing gabapentin 300 mg capsule 300 mg PO TID 12/17/22 12/17/22 hydroxyzine HCl 25 mg tablet 25 mg PO TID PRN Anxiety 12/17/22 12/17/22 ondansetron HCl 4 mg tablet 4 mg PO Q8H PRN Nausea 12/17/22 12/17/22 umeclidinium 62.5 mcg-vilanterol 1 inh inhalation DAILY 12/17/22 12/17/22 25 mcg/actuation powdr for inhalation (Anoro Ellipta) Previous Rx's Medication Instructions Recorded apixaban 5 mg tablet (Eliquis) 5 mg PO BID #45 tabs 10/09/22 levetiracetam 500 mg tablet 500 mg PO BID 30 days #60 tabs 10/09/22 Results & Data (ED) Vital Signs Vital Signs - 24 hr 12/17/22 20:01 12/17/22 20:23 12/17/22 20:23 Temperature 36.8 C Temperature Source Temporal Artery Scan Pulse Rate 63 68 68 Pulse Rate [Right] Pulse Rate from SpO2 Sensor 69 Respiratory Rate 18 21 Respiratory Effort / Characteristics Respiratory Depth Normal Blood Pressure 98/58 L Blood Pressure [Right Arm] Blood Pressure Mean 71 Blood Pressure Mean [Right Arm] Pulse Oximetry 98 97 Oxygen Delivery Method Room Air Sepsis Recent Fever Within 48 Hours No Sepsis New/Unexplained Change in Mental Status No Sepsis Action Taken by Nursing No Action Required 12/17/22 20:30 12/17/22 20:40 12/17/22 20:42 Temperature Temperature Source Pulse Rate 68 70 69 Pulse Rate [Right] Pulse Rate from SpO2 Sensor 68 70 63 Respiratory Rate 20 28 H 20 Respiratory Effort / Characteristics Respiratory Depth Blood Pressure 115/78 Blood Pressure [Right Arm] Blood Pressure Mean 90 Blood Pressure Mean [Right Arm] Pulse Oximetry 98 97 95 Oxygen Delivery Method Sepsis Recent Fever Within 48 Hours Sepsis New/Unexplained Change in Mental Status Sepsis Action Taken by Nursing 12/17/22 20:49 12/17/22 20:50 12/17/22 21:00 Temperature Temperature Source Pulse Rate 68 68 71 Pulse Rate [Right] Pulse Rate from SpO2 Sensor 68 68 71 Respiratory Rate 21 21 18 Respiratory Effort / Characteristics Respiratory Depth Blood Pressure 126/71 122/87 Blood Pressure [Right Arm] Blood Pressure Mean 89 98 Blood Pressure Mean [Right Arm] Pulse Oximetry 98 97 98 Oxygen Delivery Method Sepsis Recent Fever Within 48 Hours Sepsis New/Unexplained Change in Mental Status Sepsis Action Taken by Nursing 12/17/22 21:10 12/17/22 21:15 12/17/22 21:30 Temperature Temperature Source Pulse Rate 69 69 Pulse Rate [Right] 67 Pulse Rate from SpO2 Sensor 70 69 Respiratory Rate 22 22 18 Respiratory Effort / Characteristics Non-Labored Respiratory Depth Normal Blood Pressure 130/69 Blood Pressure [Right Arm] 129/75 Blood Pressure Mean 89 Blood Pressure Mean [Right Arm] 93 Pulse Oximetry 96 95 97 Oxygen Delivery Method Room Air Sepsis Recent Fever Within 48 Hours Sepsis New/Unexplained Change in Mental Status Sepsis Action Taken by Nursing 12/17/22 21:45 12/17/22 22:00 12/17/22 22:15 Temperature Temperature Source Pulse Rate Pulse Rate [Right] 64 63 68 Pulse Rate from SpO2 Sensor Respiratory Rate 18 20 18 Respiratory Effort / Characteristics Non-Labored Non-Labored Respiratory Depth Normal Normal Blood Pressure Blood Pressure [Right Arm] 121/79 129/74 125/73 Blood Pressure Mean Blood Pressure Mean [Right Arm] 93 92 90 Pulse Oximetry 95 94 98 Oxygen Delivery Method Room Air Room Air Room Air Sepsis Recent Fever Within 48 Hours Sepsis New/Unexplained Change in Mental Status Sepsis Action Taken by Nursing Laboratory Data 12/17/22 20:10 12/17/22 20:10 Lab Results 12/17/22 12/17/22 12/17/22 Range/Units 20:10 20:10 20:10 WBC 7.39 (4.8-10.8) K/ul RBC 3.37 L (4.20-5.40) M/uL Hgb 10.5 L (12.0-16.0) g/dl Hct 32.6 L (37.0-47.0) % MCV 96.7 (80.0-100.0) fL MCH 31.2 (25.0-34.0) pg MCHC 32.2 (32.0-36.0) g/dL RDW Std Deviation 50.4 H (36.4-46.3) fL RDW Coeff of Julia 14.3 (11.5-14.5) % Plt Count 190 (130-400) K/uL MPV 10.8 (9.4-12.4) fL Immature Gran % (Auto) 0.4 % Neut % (Auto) 55.5 % Lymph % (Auto) 34.5 % Trego % (Auto) 8.0 % Eos % (Auto) 1.2 % Baso % (Auto) 0.4 % Neut # (Auto) 4.10 (1.40-6.50) K/uL Lymph # (Auto) 2.55 (1.2-3.4) K/uL Trego # (Auto) 0.59 (0.11-0.59) K/uL Eos # (Auto) 0.09 (0-0.50) K/uL Baso # (Auto) 0.03 (0-0.2) K/uL Immature Gran # (Auto) 0.03 (0.01-0.20) K/uL PT 11.4 (9.0-12.0) Seconds INR 1.0 (0.9-1.1) APTT 25.5 (21.0-31.0) Seconds PTT Ratio 0.9 Sodium 137 (136-145) mmol/L Potassium 3.7 (3.5-5.1) mmol/L Chloride 105 (98-107) mmol/L Carbon Dioxide 24 (21-32) mmol/L Anion Gap 8 (3-11) BUN 36 H (6-23) mg/dl Creatinine 1.82 H (0.6-1.2) mg/dl Est Cr Clr Drug Dosing 22.3 ml/min Est GFR ( Amer) 30.9 ml/min Est GFR (Non-Af Amer) 26.7 ml/min BUN/Creatinine Ratio 19.8 (10-20) Glucose 98 (70-99(Fasting)) mg/dl Calcium 8.6 (8.6-10.3) mg/dl Magnesium 1.8 (1.7-2.4) mg/dl Total Bilirubin 0.2 (0.2-1.0) mg/dl AST 13 (13-39) U/L ALT 7 (7-52) U/L Alkaline Phosphatase 46 (34-104) U/L Troponin I High Sens 6.1 (0-14) pg/ml Total Protein 6.7 (6.0-8.3) gm/dl Albumin 4.0 (3.4-5.0) gm/dl Globulin 2.7 (2.5-4.0) gm/dl Albumin/Globulin Ratio 1.5 (0.9-2) Blood Type Antibody Screen 12/17/22 Range/Units 20:23 WBC (4.8-10.8) K/ul RBC (4.20-5.40) M/uL Hgb (12.0-16.0) g/dl Hct (37.0-47.0) % MCV (80.0-100.0) fL MCH (25.0-34.0) pg MCHC (32.0-36.0) g/dL RDW Std Deviation (36.4-46.3) fL RDW Coeff of Julia (11.5-14.5) % Plt Count (130-400) K/uL MPV (9.4-12.4) fL Immature Gran % (Auto) % Neut % (Auto) % Lymph % (Auto) % Trego % (Auto) % Eos % (Auto) % Baso % (Auto) % Neut # (Auto) (1.40-6.50) K/uL Lymph # (Auto) (1.2-3.4) K/uL Trego # (Auto) (0.11-0.59) K/uL Eos # (Auto) (0-0.50) K/uL Baso # (Auto) (0-0.2) K/uL Immature Gran # (Auto) (0.01-0.20) K/uL PT (9.0-12.0) Seconds INR (0.9-1.1) APTT (21.0-31.0) Seconds PTT Ratio Sodium (136-145) mmol/L Potassium (3.5-5.1) mmol/L Chloride (98-107) mmol/L Carbon Dioxide (21-32) mmol/L Anion Gap (3-11) BUN (6-23) mg/dl Creatinine (0.6-1.2) mg/dl Est Cr Clr Drug Dosing ml/min Est GFR ( Amer) ml/min Est GFR (Non-Af Amer) ml/min BUN/Creatinine Ratio (10-20) Glucose (70-99(Fasting)) mg/dl Calcium (8.6-10.3) mg/dl Magnesium (1.7-2.4) mg/dl Total Bilirubin (0.2-1.0) mg/dl AST (13-39) U/L ALT (7-52) U/L Alkaline Phosphatase (34-104) U/L Troponin I High Sens (0-14) pg/ml Total Protein (6.0-8.3) gm/dl Albumin (3.4-5.0) gm/dl Globulin (2.5-4.0) gm/dl Albumin/Globulin Ratio (0.9-2) Blood Type A Positive Antibody Screen NEGATIVE Administered Medications Sodium Chloride (Nss 1000ml) 1,000 mls @ 60 mls/hr IV .[id number] ONE Stop: 12/18/22 14:22 Last Admin: 12/18/22 01:07 Dose: 60 mls/hr Documented By: ANIKA Insulin Aspart (Insulin Aspart Per Unit Charge) 0 units SC ACHS LISHA Stop: 01/17/23 00:00 Last Admin: 12/18/22 01:07 Dose: Not Given Documented By: ANIKA Discontinued Medications Sodium Chloride (Nss) 500 mls @ 999 mls/hr IV .Q31M ONE Stop: 12/17/22 20:55 Last Infusion: 12/17/22 21:07 Dose: 0 mls/hr Documented By: Admin: 12/17/22 20:29 Dose: 999 mls/hr Documented By: BASTHEVA Tenecteplase 15 mg/ Syringe 3 mls @ 36 mls/min IV NOW ONE; Protocol Stop: 12/17/22 20:39 Last Admin: 12/17/22 20:45 Dose: 36 mls/min Documented By: BATSHEVA Co-signed By: ULICES Magnesium Sulfate/Dextrose (Magnesium Sulfate / D5w) 1 gm in 100 mls @ 50 mls/hr IV ONE ONE Stop: 12/17/22 23:38 Last Admin: 12/17/22 21:49 Dose: 50 mls/hr Documented By: BATSHEVA Ioversol (Ioversol 350 Mg 125ml Prefilled Syringe) 113 ml IV ONCE ONE Stop: 12/17/22 20:10 Last Admin: 12/17/22 20:09 Dose: 113 ml Documented By: NARA Miscellaneous (Stat Iv) 1 each N/A NOW STA Stop: 12/17/22 20:29 Last Admin: 12/17/22 20:47 Dose: 1 each Documented By: BATSHEVA Sodium Chloride (Sodium Chloride 0.9% 10ml Flush) 20 ml IV NOW STA Stop: 12/17/22 20:29 Last Admin: 12/17/22 20:47 Dose: 20 ml Documented By: BATSHEVA Imaging Data Radiologist's Impression: Head CT 12/17/22 20:06 CR Exam(s): CT HEAD Without Contrast EXAM: CT Head Without Intravenous Contrast CLINICAL HISTORY: Reason for exam: neuro deficit, acute stroke suspected. TECHNIQUE: Axial computed tomography images of the head/brain without intravenous contrast. CTDI is 46.02 mGy and DLP is 1058.53 mGy-cm. Automated exposure control was utilized for the study. A dose lowering technique was utilized adhering to the principles of ALARA. COMPARISON: No relevant prior studies available. FINDINGS: Brain: Mild ischemic microangiopathy. No hemorrhage. Ventricles: Unremarkable. No ventriculomegaly. Bones/joints: Unremarkable. No acute fracture. Soft tissues: Unremarkable. Sinuses: Unremarkable as visualized. No acute sinusitis. Mastoid air cells: Unremarkable as visualized. No mastoid effusion. Nasopharynx: soft tissue mass within the right side of the nasopharynx incompletely evaluated on this exam. IMPRESSION: 1. Soft tissue mass in the right side of the nasopharynx is incompletely evaluated on this exam but may represent underlying mass. Direct visual inspection is recommended for further evaluation 2. Head CT negative for acute intracranial abnormality. Communications: Call Doctor Stroke Electronically signed by: Garry Fields MD 12/17/22 20:26 PM Head CTA 12/17/22 20:06 Exam(s): CTA HEAD With Contrast IV Amt: 113ML OPITRAY 350 EXAM: CT Angiography Head With Intravenous Contrast CLINICAL HISTORY: Reason for exam: neuro deficit, acute stroke suspected. TECHNIQUE: Axial computed tomographic angiography images of the head with intravenous contrast. CTDI is 46.02 mGy and DLP is 1058.53 mGy-cm. Automated exposure control was utilized for the study. A dose lowering technique was utilized adhering to the principles of ALARA. MIP reconstructed images were created and reviewed. CONTRAST: Patient received 113ML OPITRAY 350 of IV contrast COMPARISON: No relevant prior studies available. FINDINGS: Limitations: Exam somewhat limited secondary to venous contamination. Right internal carotid artery: No acute findings. Intracranial segment is patent with no significant stenosis. No aneurysm. Right anterior cerebral artery: Unremarkable. No occlusion or significant stenosis. No aneurysm. Right middle cerebral artery: Unremarkable. No occlusion or significant stenosis. No aneurysm. Right posterior cerebral artery: Unremarkable. No stenosis, dissection, or occlusion. There is a suggestion of a 0.5 cm aneurysm involving the distal branches of the [employer] best appreciated on axial image 31 series 64. Right vertebral artery: Unremarkable as visualized. Left internal carotid artery: No acute findings. Intracranial segment is patent with no significant stenosis. No aneurysm. Left anterior cerebral artery: Unremarkable. No occlusion or significant stenosis. No aneurysm. Left middle cerebral artery: Unremarkable. No occlusion or significant stenosis. No aneurysm. Left posterior cerebral artery: See above. Left vertebral artery: Unremarkable as visualized. Basilar artery: Unremarkable. No occlusion or significant stenosis. No aneurysm. IMPRESSION: 1. Exam limited as described above 2. 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 Electronically signed by: Garry Fields MD 12/17/22 20:47 PM Neck CTA 12/17/22 20:06 Exam(s): CTA NECK With Contrast IV Amt: 113ML OPTIRAY 350 EXAM: CT Angiography Neck With Intravenous Contrast CLINICAL HISTORY: Reason for exam: neuro deficit, acute stroke suspected. TECHNIQUE: Routine carotid CT angiography protocol was performed with intravenous contrast. NASCET criteria using the distal ICAs for comparison were used for evaluation of stenoses. CTDI is 46.02 mGy and DLP is 1058.53 mGy-cm. Automated exposure control was utilized for the study. A dose lowering technique was utilized adhering to the principles of ALARA. MIP reconstructed images were created and reviewed. CONTRAST: Patient received 113ML OPTIRAY 350 of IV contrast COMPARISON: None. FINDINGS: VASCULATURE: Right common carotid artery: Unremarkable. No occlusion or significant stenosis. No dissection. Right internal carotid artery: Unremarkable. Extracranial segment is patent with no occlusion or significant stenosis. No dissection. Right external carotid artery: Unremarkable. No occlusion. Right vertebral artery: Unremarkable. No occlusion or significant stenosis. No dissection. Left common carotid artery: Unremarkable. No occlusion or significant stenosis. No dissection. Left internal carotid artery: Unremarkable. Extracranial segment is patent with no occlusion or significant stenosis. No dissection. Left external carotid artery: Unremarkable. No occlusion. Left vertebral artery: Unremarkable. No occlusion or significant stenosis. No dissection. NECK: Bones/joints: Unremarkable. Soft tissues: Unremarkable. Nasopharynx: 2.9 x 2 cm soft tissue mass originating at the level of the right side of the nasopharynx extending inferiorly to the oropharynx consistent with asymmetric soft tissue prominence of the right palatine tonsil. Lung apices: Clear. CAROTID STENOSIS REFERENCE USING NASCET CRITERIA: % ICA stenosis = (1 - narrowest ICA diameter/diameter of distal cervical ICA) x 100. Mild - <50% stenosis. Moderate - 50-69% stenosis. Severe - 70-94% stenosis. Near occlusion - 95-99% stenosis. Occluded - 100% stenosis. IMPRESSION: 1. Extracranial circulation is within normal limits without evidence of dissection, aneurysm, stenosis or occlusion 2. 2.9 x 2 cm asymmetric soft tissue thickening involving the right palatine tonsil extending from the nasopharynx inferiorly is worrisome for underlying mass. Direct visual inspection is recommended. Electronically signed by: Garry Fields MD 12/17/22 20:58 PM Chest X-Ray 12/17/22 20:14 SINGLE VIEW CHEST CLINICAL HISTORY: Strokelike symptoms. FINDINGS: An AP, portable, upright chest radiograph is compared to study dated 10/05/2022. A 3-lead cardiac AICD is unchanged in position and partially obscures the left lower chest. The heart is enlarged and noting atherosclerotic calcification of the thoracic aorta. The pulmonary vasculature is noncongested. Chronic interstitial thickening is similar to previous. There is mild bibasilar scarring/atelectasis. No airspace consolidation or large pleural effusion is identified. No pneumothorax is seen. The skeletal structures are osteopenic. The bony thorax is grossly intact. Cholecystectomy clips are noted in the right upp er quadrant. IMPRESSION: 1. Cardiomegaly and AICD without radiographic evidence of congestive failure. 2. No airspace consolidation or large pleural effusion is identified. ACT 112: Negative or not required by law. Electronically signed by: Saeed Guallpa M.D. 12/17/2022 8:39 PM Discharge Plan Visit Data Chief Complaint: Stroke Alert Stated Complaint: LEFT HAND PAIN AND NUMB ED Provider: Manny Denney Discharge Problem: Acute CVA (cerebrovascular accident), Acute left-sided weakness, Arm paresthesia, left Patient Disposition: Admitted As Inpatient Discharge Instructions Interventions: ED Discharge Assessment Last Done: 12/17/22 23:19
[2022-12-17] MEDS ORDERED: SODIUM CHLORIDE 0.9% 500 ML IV ONE (20:25)
--- NOTE | 2022-12-17 20:27 | CT Scan Report ---
Exam(s): CT HEAD Without Contrast EXAM: CT Head Without Intravenous Contrast CLINICAL HISTORY: Reason for exam: neuro deficit, acute stroke suspected. TECHNIQUE: Axial computed tomography images of the head/brain without intravenous contrast. CTDI is 46.02 mGy and DLP is 1058.53 mGy-cm. Automated exposure control was utilized for the study. A dose lowering technique was utilized adhering to the principles of ALARA. COMPARISON: No relevant prior studies available. FINDINGS: Brain: Mild ischemic microangiopathy. No hemorrhage. Ventricles: Unremarkable. No ventriculomegaly. Bones/joints: Unremarkable. No acute fracture. Soft tissues: Unremarkable. Sinuses: Unremarkable as visualized. No acute sinusitis. Mastoid air cells: Unremarkable as visualized. No mastoid effusion. Nasopharynx: soft tissue mass within the right side of the nasopharynx incompletely evaluated on this exam. IMPRESSION: 1. Soft tissue mass in the right side of the nasopharynx is incompletely evaluated on this exam but may represent underlying mass. Direct visual inspection is recommended for further evaluation 2. Head CT negative for acute intracranial abnormality. Communications: Call Doctor Stroke Electronically signed by: Garry Fields MD 12/17/22 20:26 PM
[2022-12-17] MEDS ORDERED: SODIUM CHLORIDE 0.9% 10ML FLUSH IV STA (20:28)
[2022-12-17] MEDS ORDERED: STAT IV STA (20:28)
[2022-12-17] MEDS ORDERED: No Aspirin within 24hrs of THROMBOLYTIC-Stroke PO SCH (20:30)
[2022-12-17 20:33] LABS: Basophils # (auto) 0.03 K/uL (0-0.2); Basophils % (auto) 0.4 %; Eosinophils # (auto) 0.09 K/uL (0-0.50); Eosinophils % (auto) 1.2 %; Hematocrit (blood only) 32.6 % (37.0-47.0); Hemoglobin 10.5 g/dl (12.0-16.0); Immature Granulocytes # (auto) 0.03 K/uL (0.01-0.20); Immature Granulocytes % (auto) 0.4 %; Lymphocytes # (auto) 2.55 K/uL (1.2-3.4); Lymphocytes % (auto) 34.5 %; Mean Corpuscular Hemoglobin 31.2 pg (25.0-34.0); Mean Corpuscular Hgb Conc 32.2 g/dL (32.0-36.0); Mean Corpuscular Volume 96.7 fL (80.0-100.0); Mean Platelet Volume 10.8 fL (9.4-12.4); Monocytes # (auto) 0.59 K/uL (0.11-0.59); Neutrophils % (auto) 55.5 %; Platelet Count 190 K/uL (130-400); RDW Coefficient of Variation 14.3 % (11.5-14.5); RDW Standard Deviation 50.4 fL (36.4-46.3); Red Blood Count 3.37 M/uL (4.20-5.40); White Blood Count 7.39 K/ul (4.8-10.8)
[2022-12-17] MEDS ORDERED: TENECTEPLASE 15 MG in SYRINGE 0 ML IV ONE (20:38)
--- NOTE | 2022-12-17 20:40 | XRay Report ---
SINGLE VIEW CHEST CLINICAL HISTORY: Strokelike symptoms. FINDINGS: An AP, portable, upright chest radiograph is compared to study dated 10/05/2022. A 3-lead ca rdiac AICD is unchanged in position and partially obscures the left lower chest. The heart is enlarge d and noting atherosclerotic calcification of the thoracic aorta. The pulmonary vasculature is noncon gested. Chronic interstitial thickening is similar to previous. There is mild bibasilar scarring/atel ectasis. No airspace consolidation or large pleural effusion is identified. No pneumothorax is seen. The skeletal structures are osteopenic. The bony thorax is grossly intact. Cholecystectomy clips are noted in the right upper quadrant. IMPRESSION: 1. Cardiomegaly and AICD without radiographic evidence of congestive failure. 2. No airspace consolidation or large pleural effusion is identified. ACT 112: Negative or not required by law. Electronically signed by: Saeed Guallpa M.D. 12/17/2022 8:39 PM
[2022-12-17 20:44] LABS: Albumin Globulin Ratio 1.5 (0.9-2); BUN Creatinine Ratio 19.8 (10-20); Bilirubin,Total 0.2 mg/dl (0.2-1.0); Calcium 8.6 mg/dl (8.6-10.3); Creatinine Clr Calc Pharmacy 22.3 ml/min; Est GFR (African American) 30.9 ml/min; Est GFR (Non-African American) 26.7 ml/min; Globulin 2.7 gm/dl (2.5-4.0); Magnesium 1.8 mg/dl (1.7-2.4); Potassium 3.7 mmol/L (3.5-5.1); Total Protein 6.7 gm/dl (6.0-8.3)
--- NOTE | 2022-12-17 20:48 | CT Scan Report ---
Exam(s): CTA HEAD With Contrast IV Amt: 113ML OPITRAY 350 EXAM: CT Angiography Head With Intravenous Contrast CLINICAL HISTORY: Reason for exam: neuro deficit, acute stroke suspected. TECHNIQUE: Axial computed tomographic angiography images of the head with intravenous contrast. CTDI is 46.02 mGy and DLP is 1058.53 mGy-cm. Automated exposure control was utilized for the study. A dose lowering technique was utilized adhering to the principles of ALARA. MIP reconstructed images were created and reviewed. CONTRAST: Patient received 113ML OPITRAY 350 of IV contrast COMPARISON: No relevant prior studies available. FINDINGS: Limitations: Exam somewhat limited secondary to venous contamination. Right internal carotid artery: No acute findings. Intracranial segment is patent with no significant stenosis. No aneurysm. Right anterior cerebral artery: Unremarkable. No occlusion or significant stenosis. No aneurysm. Right middle cerebral artery: Unremarkable. No occlusion or significant stenosis. No aneurysm. Right posterior cerebral artery: Unremarkable. No stenosis, dissection, or occlusion. There is a suggestion of a 0.5 cm aneurysm involving the distal branches of the [employer] best appreciated on axial image 31 series 64. Right vertebral artery: Unremarkable as visualized. Left internal carotid artery: No acute findings. Intracranial segment is patent with no significant stenosis. No aneurysm. Left anterior cerebral artery: Unremarkable. No occlusion or significant stenosis. No aneurysm. Left middle cerebral artery: Unremarkable. No occlusion or significant stenosis. No aneurysm. Left posterior cerebral artery: See above. Left vertebral artery: Unremarkable as visualized. Basilar artery: Unremarkable. No occlusion or significant stenosis. No aneurysm. IMPRESSION: 1. Exam limited as described above 2. 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 Electronically signed by: Garry Fields MD 12/17/22 20:47 PM
[2022-12-17 20:51] LABS: Troponin I High Sensitivity 6.1 pg/ml (0-14)
[2022-12-17 20:57] LABS: Partial Thromboplastin Ratio 0.9; Partial Thromboplastin Time 25.5 Seconds (21.0-31.0); Prothrombin Time 11.4 Seconds (9.0-12.0)
--- NOTE | 2022-12-17 20:59 | CT Scan Report ---
Exam(s): CTA NECK With Contrast IV Amt: 113ML OPTIRAY 350 EXAM: CT Angiography Neck With Intravenous Contrast CLINICAL HISTORY: Reason for exam: neuro deficit, acute stroke suspected. TECHNIQUE: Routine carotid CT angiography protocol was performed with intravenous contrast. NASCET criteria using the distal ICAs for comparison were used for evaluation of stenoses. CTDI is 46.02 mGy and DLP is 1058.53 mGy-cm. Automated exposure control was utilized for the study. A dose lowering technique was utilized adhering to the principles of ALARA. MIP reconstructed images were created and reviewed. CONTRAST: Patient received 113ML OPTIRAY 350 of IV contrast COMPARISON: None. FINDINGS: VASCULATURE: Right common carotid artery: Unremarkable. No occlusion or significant stenosis. No dissection. Right internal carotid artery: Unremarkable. Extracranial segment is patent with no occlusion or significant stenosis. No dissection. Right external carotid artery: Unremarkable. No occlusion. Right vertebral artery: Unremarkable. No occlusion or significant stenosis. No dissection. Left common carotid artery: Unremarkable. No occlusion or significant stenosis. No dissection. Left internal carotid artery: Unremarkable. Extracranial segment is patent with no occlusion or significant stenosis. No dissection. Left external carotid artery: Unremarkable. No occlusion. Left vertebral artery: Unremarkable. No occlusion or significant stenosis. No dissection. NECK: Bones/joints: Unremarkable. Soft tissues: Unremarkable. Nasopharynx: 2.9 x 2 cm soft tissue mass originating at the level of the right side of the nasopharynx extending inferiorly to the oropharynx consistent with asymmetric soft tissue prominence of the right palatine tonsil. Lung apices: Clear. CAROTID STENOSIS REFERENCE USING NASCET CRITERIA: % ICA stenosis = (1 - narrowest ICA diameter/diameter of distal cervical ICA) x 100. Mild - <50% stenosis. Moderate - 50-69% stenosis. Severe - 70-94% stenosis. Near occlusion - 95-99% stenosis. Occluded - 100% stenosis. IMPRESSION: 1. Extracranial circulation is within normal limits without evidence of dissection, aneurysm, stenosis or occlusion 2. 2.9 x 2 cm asymmetric soft tissue thickening involving the right palatine tonsil extending from the nasopharynx inferiorly is worrisome for underlying mass. Direct visual inspection is recommended. Electronically signed by: Garry Fields MD 12/17/22 20:58 PM
[2022-12-17] MEDS ORDERED: MAGNESIUM SULFATE / D5W 1 GM/100 ML BAG IV ONE (21:39)
[2022-12-17] MEDS ORDERED: SODIUM CHLORIDE 0.9% 1000ML 1,000 ML IV ONE (21:43)
--- NOTE | 2022-12-17 22:19 | History & Physical Report ---
Date of Service December 17, 2022 Assessment & Plan (1) Acute CVA (cerebrovascular accident): Plan: Presenting as left upper extremity weakness ? Possible aspirin failure Significant improvement status post thrombolytic therapy at the ER chronic systolic/diastolic heart failure status post ICD (recent EF of 60 to 65%, TTE 2022), patient on the dry side ARF CAD status post stent chronic LBBB mild aortic regurgitation AAA, stable at 3 cm measurement as of 2022 outpatient aortic duplex hypertension, BP on the lower side hyperlipidemia, on statin Rx COPD, status at baseline DM2 diet-controlled, patient unaware of diagnosis documented in outpatient problem list. Documented inpatient hemoglobin A1c of 7.1 from 2020 HCV status post tx chronic anemia, hemoglobin at baseline history of RLE DVT, patient supposedly to complete 3 months Eliquis anticoagulation (last dose 01/05/2023), unable to take Eliquis the last 6 weeks due to PCP office miscommunication possible seizure disorder supposedly on Keppra Rx, patient prefers not to take Keppra until Neuroliogy follow-up right nasopharyngeal mass, outpatient ENT evaluation slated for January 2023 chronic pain ongoing tobacco abuse ICU monitoring post TNK Neurochecks Repeat CT head 24 hours post TNK MRI precluded by patient's ICD. TTE for stroke work-up Neurology consult Re: Left upper extremity weakness status post thrombolytic therapy Baseline UA, monitor creatinine response to IVF, appropriate to hold home diuretic, lisinopril until creatinine back to baseline. Hold clonidine, appropriate to decrease maintenance beta-ann-marie dose given borderline BP in the setting of acute CVA ISS BG goal 1 40-1 80, carb count coverage, update hemoglobin A1c Nicotine patch as needed DVT prophylaxis. SCDs Re: Recent TNK Resume Eliquis if follow-up CT head after 24 hours without bleed Full code Text document was generated using [employer] voice recognition software. It may contain grammatical or spelling errors. Kindly contact undersigned for clarification of any documentation item in [employer] ion. History of Present Illness Chief Complaint: Left upper extremity weakness, numbness Primary Care Provider: Roman Ennis MD History obtained from patient and records. Medical history significant for chronic systolic/diastolic heart failure status post ICD (recent EF of 60 to 65%, TTE 2022), CAD status post stent, chronic LBBB, mild aortic regurgitation, AAA, hypertension, hyperlipidemia, COPD, DM2 diet-controlled, HCV status post tx, chronic anemia (baseline hemoglobin of 10), history of DVT supposedly on Eliquis Rx, possible seizure disorder supposedly on Keppra Rx, right nasopharyngeal mass, 6 chronic pain, ongoing tobacco abuse. Recent confinement last September 2022 altered mental status. Patient noted to have myoclonic jerks. Neurology recommended Keppra for possible seizure disorder. Patient also discharged on 3-month course of Eliquis for new onset RLE DVT as per Hematology recommendations. Incidental finding of right nasopharyngeal mass noted on CT head. Outpatient ENT evaluation scheduled for January 2023. Patient stopped taking Keppra and Eliquis medications more than a month ago because she thought she did not need to take the 2 medications because PCP did not refill meds. Few hours ago, patient noted sudden onset left upper extremity weakness and numbness without neck pain or shoulder pain. Headache symptoms. Patient compliant with home aspirin Rx. No previous episodes. Stroke alert called upon arrival at the ER. TNK administered at the ER following [facility] telestroke recommendations. Improving LUE weakness/numbness. 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 Allergy/AdvReac Type Severity Reaction Status Date / Time NSAIDS (Non-Steroidal AdvReac Severe GI ISSUES Verified 12/17/22 20:25 Anti-Inflamma Mrwhvzs-WTX-LcG Reductase AdvReac Severe LIVER Verified 12/17/22 20:25 Inhibitor FUNCTION [Gwjzzdz-Bnc-Wvq Reductase ELEVATES Inhibitor] isosorbide AdvReac Intermediate VOMIT/HEADA Verified 12/17/22 20:25 CARLOS tramadol AdvReac Intermediate VOMITING Verified 12/17/22 20:25 Home Medications Medication Instructions Recorded Confirmed Type aspirin 81 mg tablet,delayed 81 mg PO DAILY ##0 03/30/17 12/17/22 History release clonidine HCl 0.1 mg tablet 0.05 mg PO DAILY #0 tabs 03/30/17 12/17/22 History nitroglycerin 0.4 mg sublingual 0.4 mg sublingual DIRECTED PRN 03/30/17 12/17/22 History tablet Chest Pain #0 BTLS pantoprazole 40 mg tablet,delayed 40 mg PO DAILYBB #30 tabs 03/30/17 12/17/22 History release lisinopril 20 mg tablet 20 mg PO DAILY ##0 07/27/17 12/17/22 History metoprolol succinate 100 mg 100 mg PO DAILY #0 tabs 07/27/17 12/17/22 History tablet,extended release 24 hr oxycodone 5 mg tablet 5 mg PO Q6H PRN Severe Pain (Scale 08/16/20 12/17/22 History Score 7-10) trazodone 50 mg tablet 25 mg PO HS 08/16/20 12/17/22 History atorvastatin 40 mg tablet 20 mg PO DAILY 10/05/22 12/17/22 History furosemide 40 mg tablet 40 mg PO DAILY 10/05/22 12/17/22 History potassium chloride 20 mEq 20 meq PO DAILY 10/05/22 12/17/22 History tablet,extended release(part/cryst) venlafaxine 150 mg 150 mg PO HS 10/05/22 12/17/22 History capsule,extended release 24 hr apixaban 5 mg tablet (Eliquis) 5 mg PO BID #45 tabs 10/09/22 12/17/22 Rx levetiracetam 500 mg tablet 500 mg PO BID 30 days #60 tabs 10/09/22 12/17/22 Rx albuterol sulfate 90 mcg/actuation 2 puff inhalation Q4H PRN 12/17/22 12/17/22 History aerosol inhaler Shortness Of Breath Or Wheezing gabapentin 300 mg capsule 300 mg PO TID 12/17/22 12/17/22 History hydroxyzine HCl 25 mg tablet 25 mg PO TID PRN Anxiety 12/17/22 12/17/22 History ondansetron HCl 4 mg tablet 4 mg PO Q8H PRN Nausea 12/17/22 12/17/22 History umeclidinium 62.5 mcg-vilanterol 1 inh inhalation DAILY 12/17/22 12/17/22 History 25 mcg/actuation powdr for inhalation (Anoro Ellipta) Past Med/Surg History Medical History Acute anterior wall [place] Anxiety CAD (coronary artery disease) "[place] 2006. S/P PCI/Stent RCA" Chronic hepatitis C without hepatic coma Chronic pain CKD (chronic kidney disease), stage III COPD, group C, by GOLD 2017 classification Elevated troponin GERD (gastroesophageal reflux disease) H/O cardiac pacemaker HTN (hypertension) Hyperlipidemia Hypoxia Ischemic cardiomyopathy LBBB (left bundle branch block) Migraine OA (osteoarthritis) Respiratory acidosis Surgical History H/O release of tendon H/O: hysterectomy History of carpal tunnel surgery History of implantable cardioverter-defibrillator (ICD) placement Hx of cataract surgery S/P cardiac cath S/P cholecystectomy Family History (Updated 10/06/22 @ 09:45 by Silvestre Winter MD) Father , age 81 of lung cancer Prostate cancer Heart disease Thyroid disorder Lung cancer Mother , age 80 with COPD Cancer Cervical Coronary heart disease s/p CABG Diabetes COPD (chronic obstructive pulmonary disease) Social History Smoking Status: Current every day smoker Tobacco Type: Cigarettes Age Started Using Tobacco: 23; packs per day: 0.5; Second Hand Exposure: No; Do You Dip or Chew Tobacco: No; Hx Alcohol Use: No Hx Substance Use: No Preferred Language: Luxembourgish Communication Ability: Effective Collections And Archives Director Required: No Beliefs That Will Affect Care: None Current Living Situation: Family current occupational status: retired 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 Feels Safe at Home: Yes Assistive Devices: None Review of Systems Review of Systems: As per HPI, all other systems reviewed and negative Physical Exam Physical Exam: GENERAL: Comfortable, pleasant, no respiratory distress SKIN: Pallor, warm HEENT: Pale palpebral conjunctivae, no ptosis, dry buccal mucosa NECK : Supple, no tenderness CHEST : Decreased breath sounds, no tenderness HEART : RRR, no obvious murmurs ABDOMEN: Some distention, nontender EXTREMITIES : Minimal LE swelling, no LE tenderness, no other conspicuous deformities noted NEUROLOGIC : Coherent, no facial asymmetry, slightly hard of hearing, MMTS BUE 4/5, BLE 4/5, gait and stance not assessed Results & Data Results & Data Vital Signs (Past 12 Hours) Vital Signs Temp Pulse Pulse Resp BP BP Pulse Ox 12/17/22 22:00 63 20 129/74 94 12/17/22 21:45 64 18 121/79 95 12/17/22 21:30 67 18 129/75 97 12/17/22 21:15 69 22 130/69 95 12/17/22 21:10 69 22 96 12/17/22 21:00 71 18 122/87 98 12/17/22 20:50 68 21 97 12/17/22 20:49 68 21 126/71 98 12/17/22 20:42 69 20 115/78 95 12/17/22 20:40 70 28 H 97 12/17/22 20:30 68 20 98 12/17/22 20:23 68 21 97 12/17/22 20:23 68 12/17/22 20:01 36.8 C 63 18 98/58 L 98 O2 Del Method 12/17/22 22:00 Room Air 12/17/22 21:45 Room Air 12/17/22 21:30 Room Air 12/17/22 21:15 12/17/22 21:10 12/17/22 21:00 12/17/22 20:50 12/17/22 20:49 12/17/22 20:42 12/17/22 20:40 12/17/22 20:30 12/17/22 20:23 12/17/22 20:23 12/17/22 20:01 Room Air Laboratory Results Laboratory Results WBC 7.39 K/ul (4.8-10.8) 12/17/22 20:10 RBC 3.37 M/uL (4.20-5.40) L 12/17/22 20:10 Hgb 10.5 g/dl (12.0-16.0) L 12/17/22 20:10 Hct 32.6 % (37.0-47.0) L 12/17/22 20:10 MCV 96.7 fL (80.0-100.0) 12/17/22 20:10 MCH 31.2 pg (25.0-34.0) 12/17/22 20:10 MCHC 32.2 g/dL (32.0-36.0) 12/17/22 20:10 RDW Std Deviation 50.4 fL (36.4-46.3) H 12/17/22 20:10 RDW Coeff of Julia 14.3 % (11.5-14.5) 12/17/22 20:10 Plt Count 190 K/uL (130-400) 12/17/22 20:10 MPV 10.8 fL (9.4-12.4) 12/17/22 20:10 Immature Gran % (Auto) 0.4 % 12/17/22 20:10 Neut % (Auto) 55.5 % 12/17/22 20:10 Lymph % (Auto) 34.5 % 12/17/22 20:10 Ble[place] % (Auto) 8.0 % 12/17/22 20:10 Eos % (Auto) 1.2 % 12/17/22 20:10 Baso % (Auto) 0.4 % 12/17/22 20:10 Neut # (Auto) 4.10 K/uL (1.40-6.50) 12/17/22 20:10 Lymph # (Auto) 2.55 K/uL (1.2-3.4) 12/17/22 20:10 Bleckley # (Auto) 0.59 K/uL (0.11-0.59) 12/17/22 20:10 Eos # (Auto) 0.09 K/uL (0-0.50) 12/17/22 20:10 Baso # (Auto) 0.03 K/uL (0-0.2) 12/17/22 20:10 Immature Gran # (Auto) 0.03 K/uL (0.01-0.20) 12/17/22 20:10 PT 11.4 Seconds (9.0-12.0) 12/17/22 20:10 INR 1.0 (0.9-1.1) 12/17/22 20:10 APTT 25.5 Seconds (21.0-31.0) 12/17/22 20:10 PTT Ratio 0.9 12/17/22 20:10 Sodium 137 mmol/L (136-145) 12/17/22 20:10 Potassium 3.7 mmol/L (3.5-5.1) 12/17/22 20:10 Chloride 105 mmol/L (98-107) 12/17/22 20:10 Carbon Dioxide 24 mmol/L (21-32) 12/17/22 20:10 Anion Gap 8 (3-11) 12/17/22 20:10 BUN 36 mg/dl (6-23) H 12/17/22 20:10 Creatinine 1.82 mg/dl (0.6-1.2) H 12/17/22 20:10 Est Cr Clr Drug Dosing 22.3 ml/min 12/17/22 20:10 Est GFR ( Amer) 30.9 ml/min 12/17/22 20:10 Est GFR (Non-Af Amer) 26.7 ml/min 12/17/22 20:10 BUN/Creatinine Ratio 19.8 (10-20) 12/17/22 20:10 Glucose 98 mg/dl (70-99(Fasting)) 12/17/22 20:10 Calcium 8.6 mg/dl (8.6-10.3) 12/17/22 20:10 Magnesium 1.8 mg/dl (1.7-2.4) 12/17/22 20:10 Total Bilirubin 0.2 mg/dl (0.2-1.0) 12/17/22 20:10 AST 13 U/L (13-39) 12/17/22 20:10 ALT 7 U/L (7-52) 12/17/22 20:10 Alkaline Phosphatase 46 U/L (34-104) 12/17/22 20:10 Troponin I High Sens 6.1 pg/ml (0-14) 12/17/22 20:10 Total Protein 6.7 gm/dl (6.0-8.3) 12/17/22 20:10 Albumin 4.0 gm/dl (3.4-5.0) 12/17/22 20:10 Globulin 2.7 gm/dl (2.5-4.0) 12/17/22 20:10 Albumin/Globulin Ratio 1.5 (0.9-2) 12/17/22 20:10 Blood Type A Positive 12/17/22 20:23 Antibody Screen NEGATIVE 12/17/22 20:[address] 12/17/22 20:06 CR Exam(s): CT HEAD Without Contrast EXAM: CT Head Without Intravenous Contrast CLINICAL HISTORY: Reason for exam: neuro deficit, acute stroke suspected. TECHNIQUE: Axial computed tomography images of the head/brain without intravenous contrast. CTDI is 46.02 mGy and DLP is 1058.53 mGy-cm. Automated exposure control was utilized for the study. A dose lowering technique was utilized adhering to the principles of ALARA. COMPARISON: No relevant prior studies available. FINDINGS: Brain: Mild ischemic microangiopathy. No hemorrhage. Ventricles: Unremarkable. No ventriculomegaly. Bones/joints: Unremarkable. No acute fracture. Soft tissues: Unremarkable. Sinuses: Unremarkable as visualized. No acute sinusitis. Mastoid air cells: Unremarkable as visualized. No mastoid effusion. Nasopharynx: soft tissue mass within the right side of the nasopharynx incompletely evaluated on this exam. IMPRESSION: 1. Soft tissue mass in the right side of the nasopharynx is incompletely evaluated on this exam but may represent underlying mass. Direct visual inspection is recommended for further evaluation 2. Head CT negative for acute intracranial abnormality. Communications: Call Doctor Stroke Electronically signed by: Garry Fields MD 12/17/22 20:26 PM Head CTA 12/17/22 20:06 Exam(s): CTA HEAD With Contrast IV Amt: 113ML OPITRAY 350 EXAM: CT Angiography Head With Intravenous Contrast CLINICAL HISTORY: Reason for exam: neuro deficit, acute stroke suspected. TECHNIQUE: Axial computed tomographic angiography images of the head with intravenous contrast. CTDI is 46.02 mGy and DLP is 1058.53 mGy-cm. Automated exposure control was utilized for the study. A dose lowering technique was utilized adhering to the principles of ALARA. MIP reconstructed images were created and reviewed. CONTRAST: Patient received 113ML OPITRAY 350 of IV contrast COMPARISON: No relevant prior studies available. FINDINGS: Limitations: Exam somewhat limited secondary to venous contamination. Right internal carotid artery: No acute findings. Intracranial segment is patent with no significant stenosis. No aneurysm. Right anterior cerebral artery: Unremarkable. No occlusion or significant stenosis. No aneurysm. Right middle cerebral artery: Unremarkable. No occlusion or significant stenosis. No aneurysm. Right posterior cerebral artery: Unremarkable. No stenosis, dissection, or occlusion. There is a suggestion of a 0.5 cm aneurysm involving the distal branches of the WOMEN SPECIALIST best appreciated on axial image 31 series 64. Right vertebral artery: Unremarkable as visualized. Left internal carotid artery: No acute findings. Intracranial segment is patent with no significant stenosis. No aneurysm. Left anterior cerebral artery: Unremarkable. No occlusion or significant stenosis. No aneurysm. Left middle cerebral artery: Unremarkable. No occlusion or significant stenosis. No aneurysm. Left posterior cerebral artery: See above. Left vertebral artery: Unremarkable as visualized. Basilar artery: Unremarkable. No occlusion or significant stenosis. No aneurysm. IMPRESSION: 1. Exam limited as described above 2. 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 Electronically signed by: Garry Fields MD 12/17/22 20:47 PM Neck CTA 12/17/22 20:06 Exam(s): CTA NECK With Contrast IV Amt: 113ML OPTIRAY 350 EXAM: CT Angiography Neck With Intravenous Contrast CLINICAL HISTORY: Reason for exam: neuro deficit, acute stroke suspected. TECHNIQUE: Routine carotid CT angiography protocol was performed with intravenous contrast. NASCET criteria using the distal ICAs for comparison were used for evaluation of stenoses. CTDI is 46.02 mGy and DLP is 1058.53 mGy-cm. Automated exposure control was utilized for the study. A dose lowering technique was utilized adhering to the principles of ALARA. MIP reconstructed images were created and reviewed. CONTRAST: Patient received 113ML OPTIRAY 350 of IV contrast COMPARISON: None. FINDINGS: VASCULATURE: Right common carotid artery: Unremarkable. No occlusion or significant stenosis. No dissection. Right internal carotid artery: Unremarkable. Extracranial segment is patent with no occlusion or significant stenosis. No dissection. Right external carotid artery: Unremarkable. No occlusion. Right vertebral artery: Unremarkable. No occlusion or significant stenosis. No dissection. Left common carotid artery: Unremarkable. No occlusion or significant stenosis. No dissection. Left internal carotid artery: Unremarkable. Extracranial segment is patent with no occlusion or significant stenosis. No dissection. Left external carotid artery: Unremarkable. No occlusion. Left vertebral artery: Unremarkable. No occlusion or significant stenosis. No dissection. NECK: Bones/joints: Unremarkable. Soft tissues: Unremarkable. Nasopharynx: 2.9 x 2 cm soft tissue mass originating at the level of the right side of the nasopharynx extending inferiorly to the oropharynx consistent with asymmetric soft tissue prominence of the right palatine tonsil. Lung apices: Clear. CAROTID STENOSIS REFERENCE USING NASCET CRITERIA: % ICA stenosis = (1 - narrowest ICA diameter/diameter of distal cervical ICA) x 100. Mild - <50% stenosis. Moderate - 50-69% stenosis. Severe - 70-94% stenosis. Near occlusion - 95-99% stenosis. Occluded - 100% stenosis. IMPRESSION: 1. Extracranial circulation is within normal limits without evidence of dissection, aneurysm, stenosis or occlusion 2. 2.9 x 2 cm asymmetric soft tissue thickening involving the right palatine tonsil extending from the nasopharynx inferiorly is worrisome for underlying mass. Direct visual inspection is recommended. Electronically signed by: Garry Fields MD 12/17/22 20:58 PM Chest X-Ray 12/17/22 20:14 SINGLE VIEW CHEST CLINICAL HISTORY: Strokelike symptoms. FINDINGS: An AP, portable, upright chest radiograph is compared to study dated 10/05/2022. A 3-lead cardiac AICD is unchanged in position and partially obscures the left lower chest. The heart is enlarged and noting atherosclerotic calcification of the thoracic aorta. The pulmonary vasculature is noncongested. Chronic interstitial thickening is similar to previous. There is mild bibasilar scarring/atelectasis. No airspace consolidation or large pleural effusion is identified. No pneumothorax is seen. The skeletal structures are osteopenic. The bony thorax is grossly intact. Cholecystectomy clips are noted in the right upper quadrant. IMPRESSION: 1. Cardiomegaly and AICD without radiographic evidence of congestive failure. 2. No airspace consolidation or large pleural effusion is identified. ACT 112: Negative or not required by law. Electronically signed by: Saeed Guallpa M.D. 12/17/2022 8:39 PM Diagnostic Findings EKG as per my interpretation : Rate 70, paced rhythm
[2022-12-18] MEDS ORDERED: hydrOXYzine HCl 25 MG TAB PO PRN
[2022-12-18] MEDS ORDERED: ACETAMINOPHEN 325 MG TAB PO PRN
[2022-12-18] MEDS ORDERED: CARBOHYDRATES FOR HYPOGLYCEMIA PO PRN
[2022-12-18] MEDS ORDERED: GLUCAGON FOR INJ 1 MG VIAL SQ PRN
[2022-12-18] MEDS ORDERED: GLUCOSE 10 TAB/TUBE PO PRN
[2022-12-18] MEDS ORDERED: oxyCODONE HCL IR 5 MG TAB (IMMEDIATE RELEASE) PO PRN
[2022-12-18] MEDS ORDERED: DEXTROSE 50% 50 ML SYRINGE IV PRN
[2022-12-18] MEDS ORDERED: PROMETHAZINE HCL 6.25 MG in SODIUM CHLORIDE 0.9% 50 ML IV PRN
[2022-12-18] MEDS ORDERED: GLUCOSE 40% GEL 15 GM TUBE PO PRN
--- NOTE | 2022-12-18 00:32 | Critical Care Consultation ---
Date of Consultation December 17, 2022 Assessment & Plan (1) Acute CVA (cerebrovascular accident): Impression: 77-year-old female presents to the ICU following strokelike symptoms with left-sided weakness, now s/p TNKase administration at 2044. Admitted to ICU for post TNKase 24-hour protocol. Neuro - Acute CVAlast NIH score of 2. Patient continues to have left hand weakness and numbness along with left lower extremity weakness and numbness. 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 Consider ENT consult? -Pacemaker incompatible for MRI -TNKase 24-hour monitoring in ICU per protocol -Neurology consulted, follow-up recommendations -Follow-up echo -Follow-up hemoglobin A1c, lipid profile -Follow-up 24-hour CT History of seizures?Questionable history of seizures and was temporarily on Keppra. Patient reports that she is no longer taking this medication and has not had episodes since. Cardiac - Ischemic cardiomyopathylast echo 10/11 with normal EF 60 to 65%, mild concentric left ventricular hypertrophy, trace aortic regurg -Repeat echo pending poststroke -Restart ASA after 24 hours post TNKase -Hold Lasix for now HLDcontinue statin HTNcontinue MTP, holding lisinopril for MARIELLA Respiratory - COPDno issue at this time. Lungs clear to auscultation. Continue nebs. Continuous monitoring pulse ox for now GI - N.p.o., advance diet pending swallow study GERDPPI RENAL/LYTES - MARIELLA on CKD stage IIIcreatinine 1.8 with prior baseline 0.68. Unsure of etiology at this time, although patient did receive - Strict I's and O's ENDO - No history of diabetes or thyroid disease. ICU hyperglycemic protocol -Follow-up hemoglobin A1c HEME - H&H stable, monitor routine CBCs. Monitor for signs of bleeding ID - No indication for infectious process at this time LINES/IV ACCESS - Peripheral IV DVT PROPHYLAXIS - SCDs, holding anticoagulation following TNKase administration DVT historypatient states that she was diagnosed with right lower extremity DVT and underwent 60 days of Eliquis. Patient reports that her doctor did not renew the prescription, so she stopped taking after 60 days. This happened a few months ago. Consider lower extremity Doppler. Thank you for allowing us to participate in the care of this patient. Please refer to my attending physician's documentation for any further recommendations. (2) MARIELLA (acute kidney injury): (3) DVT prophylaxis: (4) COPD, group C, by GOLD 2017 classification: (5) CKD (chronic kidney disease), stage III: (6) GERD (gastroesophageal reflux disease): (7) Hyperlipidemia: (8) H/O cardiac pacemaker: (9) CAD (coronary artery disease): (10) Ischemic cardiomyopathy: (11) HTN (hypertension): (12) OA (osteoarthritis): History of Present Illness History of Present Illness Patient is a 77-year-old female with a past medical history significant for COPD, ischemic cardiomyopathy, HTN, OA, GERD, HLD, CKD stage III, DVTs who presented to the emergency department earlier this afternoon with complaints of left-sided weakness and gait change. Patient began to have strokelike symptoms at approximately 1900 when she noticed that her left hand and left foot were numb. She was noted to have left-sided facial droop by EMS and was taken to the emergency department. She underwent CT head which was negative for acute intracranial findings. 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 Patient was evaluated by [facility] neurology telestroke, and decision was made to administer thrombolytics, which she received at 2044. Patient now transferred to the ICU for post TNKase 24-hour management. On arrival to the ICU the patient is alert and oriented, with no acute distress. She complains of left-sided numbness and weakness to the upper and lower extremities, but states this is improving from earlier. She denies headache, dizziness, visual changes, trouble speaking. She denies congestion or sore throat, shortness of breath, chest pain, palpitations, abdominal pain, nausea vomiting or diarrhea, fevers, recent illness. Allergies Allergy/AdvReac Type Severity Reaction Status Date / Time NSAIDS (Non-Steroidal AdvReac Severe GI ISSUES Verified 12/17/22 20:25 Anti-Inflamma Bfjslrc-NMU-SoB Reductase AdvReac Severe LIVER Verified 12/17/22 20:25 Inhibitor FUNCTION [Flnvfpz-Ozk-Raf Reductase ELEVATES Inhibitor] isosorbide AdvReac Intermediate VOMIT/HEADA Verified 12/17/22 20:25 CARLOS tramadol AdvReac Intermediate VOMITING Verified 12/17/22 20:25 Home Medications Medication Instructions Recorded Confirmed Type aspirin 81 mg tablet,delayed 81 mg PO DAILY ##0 03/30/17 12/17/22 History release clonidine HCl 0.1 mg tablet 0.05 mg PO DAILY #0 tabs 03/30/17 12/17/22 History nitroglycerin 0.4 mg sublingual 0.4 mg sublingual DIRECTED PRN 03/30/17 12/17/22 History tablet Chest Pain #0 BTLS pantoprazole 40 mg tablet,delayed 40 mg PO DAILYBB #30 tabs 03/30/17 12/17/22 History release lisinopril 20 mg tablet 20 mg PO DAILY ##0 07/27/17 12/17/22 History metoprolol succinate 100 mg 100 mg PO DAILY #0 tabs 07/27/17 12/17/22 History tablet,extended release 24 hr oxycodone 5 mg tablet 5 mg PO Q6H PRN Severe Pain (Scale 08/16/20 12/17/22 History Score 7-10) trazodone 50 mg tablet 25 mg PO HS 08/16/20 12/17/22 History atorvastatin 40 mg tablet 20 mg PO DAILY 10/05/22 12/17/22 History furosemide 40 mg tablet 40 mg PO DAILY 10/05/22 12/17/22 History potassium chloride 20 mEq 20 meq PO DAILY 10/05/22 12/17/22 History tablet,extended release(part/cryst) venlafaxine 150 mg 150 mg PO HS 10/05/22 12/17/22 History capsule,extended release 24 hr apixaban 5 mg tablet (Eliquis) 5 mg PO BID #45 tabs 10/09/22 12/17/22 Rx levetiracetam 500 mg tablet 500 mg PO BID 30 days #60 tabs 10/09/22 12/17/22 Rx albuterol sulfate 90 mcg/actuation 2 puff inhalation Q4H PRN 12/17/22 12/17/22 History aerosol inhaler Shortness Of Breath Or Wheezing gabapentin 300 mg capsule 300 mg PO TID 12/17/22 12/17/22 History hydroxyzine HCl 25 mg tablet 25 mg PO TID PRN Anxiety 12/17/22 12/17/22 History ondansetron HCl 4 mg tablet 4 mg PO Q8H PRN Nausea 12/17/22 12/17/22 History umeclidinium 62.5 mcg-vilanterol 1 inh inhalation DAILY 12/17/22 12/17/22 History 25 mcg/actuation powdr for inhalation (Anoro Ellipta) Patient History Medical History Acute anterior wall [place] Anxiety CAD (coronary artery disease) "[place] 2006. S/P PCI/Stent RCA" Chronic hepatitis C without hepatic coma Chronic pain CKD (chronic kidney disease), stage III COPD, group C, by GOLD 2017 classification Elevated troponin GERD (gastroesophageal reflux disease) H/O cardiac pacemaker HTN (hypertension) Hyperlipidemia Hypoxia Ischemic cardiomyopathy LBBB (left bundle branch block) Migraine OA (osteoarthritis) Respiratory acidosis Surgical History H/O release of tendon H/O: hysterectomy History of carpal tunnel surgery History of implantable cardioverter-defibrillator (ICD) placement Hx of cataract surgery S/P cardiac cath S/P cholecystectomy Family History (Updated 10/06/22 @ 09:45 by Silvestre Winter MD) Father , age 81 of lung cancer Prostate cancer Heart disease Thyroid disorder Lung cancer Mother , age 80 with COPD Cancer Cervical Coronary heart disease s/p CABG Diabetes COPD (chronic obstructive pulmonary disease) Social History Smoking Status: Current every day smoker Tobacco Type: Cigarettes Age Started Using Tobacco: 23; packs per day: 0.5; Second Hand Exposure: No; Do You Dip or Chew Tobacco: No; Hx Alcohol Use: No Hx Substance Use: No Preferred Language: Bulgarian Communication Ability: Effective Materials Technician Required: No Beliefs That Will Affect Care: None Current Living Situation: Family current occupational status: retired 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 Feels Safe at Home: Yes Assistive Devices: None Review of Systems Review of Systems: All systems reviewed & are unremarkable except as noted in HPI & below Physical Exam Constitutional: cooperative and comfortable; no acute distress Eyes: PERRL, conjunctivae normal, anicteric sclerae ENMT: external ear and nose normal, oropharynx normal Neck: trachea midline, no thyromegaly Respiratory: normal respiratory effort, lungs clear to auscultation Cardiovascular: RRR, no murmur, no edema Heart Sounds: normal S1 and normal S2 Extremities: no edema Gastrointestinal (Abdomen): normal bowel sounds, soft, nontender, no hepatosplenomegaly Musculoskeletal: no cyanosis or clubbing, extremities motor strength 5/5 Skin: no rashes, warm and dry Neurologic: Slight left-sided facial droop, left sided weakness in upper and lower extremity. No dysarthria. PERRLA Psychiatric: A+Ox3, euthymic affect Results & Data Results & Data Vital Signs (Past 12 Hours) Vital Signs Temp Pulse Pulse Resp BP BP Pulse Ox 12/17/22 23:15 64 18 136/71 93 12/17/22 22:45 63 18 118/71 98 12/17/22 22:30 67 18 134/78 98 12/17/22 22:15 68 18 125/73 98 12/17/22 22:00 63 20 129/74 94 12/17/22 21:45 64 18 121/79 95 12/17/22 21:30 67 18 129/75 97 12/17/22 21:15 69 22 130/69 95 12/17/22 21:10 69 22 96 12/17/22 21:00 71 18 122/87 98 12/17/22 20:50 68 21 97 12/17/22 20:49 68 21 126/71 98 12/17/22 20:42 69 20 115/78 95 12/17/22 20:40 70 28 H 97 12/17/22 20:30 68 20 98 12/17/22 20:23 68 21 97 12/17/22 20:23 68 12/17/22 20:01 36.8 C 63 18 98/58 L 98 O2 Del Method 12/17/22 23:15 Room Air 12/17/22 22:45 Room Air 12/17/22 22:30 Room Air 12/17/22 22:15 Room Air 12/17/22 22:00 Room Air 12/17/22 21:45 Room Air 12/17/22 21:30 Room Air 12/17/22 21:15 12/17/22 21:10 12/17/22 21:00 12/17/22 20:50 12/17/22 20:49 12/17/22 20:42 12/17/22 20:40 12/17/22 20:30 12/17/22 20:23 12/17/22 20:23 12/17/22 20:01 Room Air Coding Level of Care Code 13163 IN/OBS CONSULT LVL 3,45M Diagnoses Acute CVA (cerebrovascular accident) I63.9 MARIELLA (acute kidney injury) N17.9 DVT prophylaxis Z29.9 COPD, group C, by GOLD 2017 classification J44.9 CKD (chronic kidney disease), stage III N18.30 GERD (gastroesophageal reflux disease) K21.9 Hyperlipidemia E78.5 H/O cardiac pacemaker Z95.0 CAD (coronary artery disease) I25.10 Ischemic cardiomyopathy I25.5 HTN (hypertension) I10 OA (osteoarthritis) M19.90
[2022-12-18] MEDS: INSULIN ASPART PER UNIT CHARGE SC SCH ×5 (01:07→20:01)
[2022-12-18 04:57] LABS: Chol HDL Ratio 4.1 (0-5)
[2022-12-18 06:54] LABS: Basophils # (auto) 0.03 K/uL (0-0.2); Basophils % (auto) 0.4 %; Eosinophils # (auto) 0.14 K/uL (0-0.50); Eosinophils % (auto) 1.9 %; Hematocrit (blood only) 30.9 % (37.0-47.0); Hemoglobin 10.1 g/dl (12.0-16.0); Immature Granulocytes # (auto) 0.03 K/uL (0.01-0.20); Immature Granulocytes % (auto) 0.4 %; Lymphocytes # (auto) 2.75 K/uL (1.2-3.4); Lymphocytes % (auto) 37.9 %; Mean Corpuscular Hemoglobin 31.5 pg (25.0-34.0); Mean Corpuscular Hgb Conc 32.7 g/dL (32.0-36.0); Mean Corpuscular Volume 96.3 fL (80.0-100.0); Mean Platelet Volume 10.9 fL (9.4-12.4); Monocytes # (auto) 0.59 K/uL (0.11-0.59); Monocytes % (auto) 8.1 %; Neutrophils # (auto) 3.71 K/uL (1.40-6.50); Neutrophils % (auto) 51.3 %; Platelet Count 154 K/uL (130-400); RDW Coefficient of Variation 14.2 % (11.5-14.5); Red Blood Count 3.21 M/uL (4.20-5.40); White Blood Count 7.25 K/ul (4.8-10.8)
[2022-12-18 07:03] LABS: BUN Creatinine Ratio 21.3 (10-20); Calcium 8.3 mg/dl (8.6-10.3); Creatinine Clr Calc Pharmacy 29.9 ml/min; Magnesium 2.1 mg/dl (1.7-2.4); Phosphorus 2.8 mg/dl (2.5-4.9); Potassium 3.1 mmol/L (3.5-5.1)
[2022-12-18 07:46] LABS: Estimated Average Glucose 134 mg/dl; Hemoglobin A1C 6.3 % (4.5-5.6)
[2022-12-18] MEDS ORDERED: POTASSIUM CHLORIDE CRTAB 20 MEQ TABCR PO STA (08:06)
[2022-12-18 08:11] LABS: Appearance Urine Clear (Clear); Bacteria Urine Automated Negative (Negative); Bilirubin Urine Negative (Negative); Blood Urine Negative (Negative); Cast Urine Automated 0 /lpf (0-5); Color Urine Yellow; Epithelial Cell Urine Auto >30 /lpf (0-5); Glucose Urine UA Negative (Negative); Ketones Urine Negative (Negative); Leukocyte Esterase Urine Negative (Negative); Nitrite Urine Negative (Negative); Protein Urine Trace (Negative); RBC Urine Automated 0-4 /hpf (0-4); Specific Gravity Urine 1.025 (1.000-1.030); Urobilinogen Urine Negative (Negative); pH Urine 5.5 (4.5-7.5)
[2022-12-18] MEDS: METOPROLOL SUCC 25MG EXT REL TAB PO SCH (08:17)
[2022-12-18] MEDS: ATORVASTATIN 20 MG TAB PO SCH (08:17)
[2022-12-18] MEDS: PANTOprazole 40 MG TAB PO SCH (08:17)
[2022-12-18] MEDS: UMECLIDINIUM/VILANTEROL 62.5/25MCG 7 PUFFS/INHALER INH SCH (08:17)
[2022-12-18] MEDS: GABAPENTIN 100 MG CAP PO SCH ×3 (08:17→20:01)
[2022-12-18 09:59] LABS: Iron 63 mcg/dl (35-150); Unsaturated Iron Binding Cap 314 mcg/dl (155-355)
--- NOTE | 2022-12-18 11:17 | Electrocardiogram Report ---
Test Reason : Blood Pressure : / mmHG Vent. Rate : 071 BPM Atrial Rate : 071 BPM P-R Int : 144 ms QRS Dur : 132 ms QT Int : 460 ms P-R-T Axes : 061 -71 065 degrees QTc Int : 499 ms Atrial-sensed ventricular-paced rhythm Biventricular pacemaker detected Abnormal ECG When compared with ECG of 07-OCT-2022 05:22, Vent. rate has decreased BY 14 BPM Confirmed by Earnest Jauregui ([id number]) on 12/18/2022 11:17:26 AM Referred By: REFERRED SELF Confirmed By:Earnest Jaureugi
--- NOTE | 2022-12-18 11:29 | Critical Care Progress Note ---
Date of Service December 18, 2022 Assessment & Plan (1) Acute CVA (cerebrovascular accident): Plan: The patient presented with strokelike symptoms with left hand discoordination and left foot numbness. A head CT scan did not show any acute bleed or infarction so she received TNK without difficulty. She is scheduled to have her 24-hour CT scan at 9:00 tonight. There are some residual discoordination of her left hand and arm. But her left leg seems to be working well. We are managing her blood pressure and making sure she does not become excessively hypertensive. She will not receive any anticoagulation for 24 hours. The biggest concern is that on neck CT scan there was a 2.9 x 2.4 cm mass and asymmetry in her right tonsil. It could not be appreciated on physical exam. She is a current smoker and the concern would be for head and neck cancer. We have requested an ENT consult for tomorrow. 1. Neuropsych: Repeat head CT scan at 9:00 tonight is a 24-hour marker. She will need occupational and physical therapy for her discoordination of her left hand. I believe she is a righty so that is useful. She does have a history of seizures so we will resume her Keppra and she is already written for her home Neurontin. An MRI was recommended but apparently her pacemaker cannot be proven to be MRI compatible. Currently no clinical signs of deterioration or intracranial bleed from the TNK. 2. Cardiac: Her blood pressure is slightly elevated at 145/75 but do not want to bring it down too much further during this Jose stroke. But also would not want her to go much higher than 160 systolic. She is being maximized on her atorvastatin. Her metoprolol is home dose and it is being resumed. We are holding the lisinopril though because of some higher renal function. She does have a pacemaker and is continuously paced. She is on atorvastatin. 3. Pulmonary: She is on room air though has slightly low saturations about 92. We did discuss smoking cessation and for many reasons including her stroke, possible head and neck cancer and pending emphysema. Blood gas showed 7.3 62/43/77 so she is marginal with regards to her PO2. 4. GI. She is being seen by speech to sure that she could have a regular diet. 5. Renal: Concern with some relative acute renal failure. On admission she had a creatinine of 1.82 and it did come down today to 1.36. But her baseline from September 2022 is 0.68. I do not know if it is relative dehydration or the lisinopril but the latter has been stopped. She is also on Lasix and clonidine at home in the to have been discontinued. Her electrolytes are essentially normal except for potassium of 3.1 which is being repleted. Also to help normalize her creatinine she will be on normal saline with 40 of K at 60 an hour and follow her creatinine. We do not want to make her blood pressure go up too high though with the sodium load. 6. ID: There are is some yeast in her urine but only 1-5 white blood cells so that will not be treated for asymptomatic funguria. Also, her white count is normal at 7.25. A chest x-ray was done which shows no acute cardiopulmonary disease. 7. 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 All anticoagulation including her home Eliquis is being held until the 24-hour nicole when a head CT scan will be repeated. She is anemic but her iron level is normal at 63. Likely secondary to anemia of chronic disease. 8. Endocrine: No active issues at this time. (2) Acute left-sided weakness: (3) Acute CVA (cerebrovascular accident): (4) Seizure: (5) Tonsillar mass: Admission and Anticipated Discharge Date Admission Date: December 17, 2022 Subjective The patient is a 77-year-old woman who presented with strokelike symptoms. She received TNK yesterday in the emergency room without complications. There was some numbness in her left foot which now seems to have resolved. She is able to move her left hand but her fine motor skills are lacking and she has some ataxia in that left arm. It is hard for her to find her target consistently. She is denying any hemoptysis or hematemesis. There is no dysphagia or soreness in her throat or pain upon swallowing. No trouble speaking or feeling of fullness in her throat. No shortness of breath, cough or phlegm production. No chest pain arm or jaw pain. No nausea vomiting or diarrhea. No blurry vision or headache. Physical Exam Physical Exam: The patient is normocephalic atraumatic. There is no facial droop that I could appreciate on smile and her facies are symmetrical. 5/5 handgrip on both hands bicep and tricep. But her [id number] is very discoordinated with her left hand and having to compensate for finding a target. Intact neurologic function and strength in both lower extremities 5 out of 5. Neck is supple without adenopathy that could be appreciated. In viewing the back of her throat I could not appreciate any fullness or ulcerations. Abdomen is soft nontender without dependence and megaly extremities are with distant bilaterally heart is regular rate and rhythm without murmurs rubs or gallops. Results & Data Results & Data Vital Signs (Past 12 Hours) Vital Signs Temp Pulse Pulse Resp BP BP Pulse Ox 12/18/22 10:45 36.8 C 62 20 168/86 H 90 12/18/22 10:00 12/18/22 09:45 65 18 99/42 L 94 12/18/22 08:00 55 L 12/18/22 08:45 37.0 C 60 18 117/94 93 12/18/22 07:45 36.8 C 68 18 145/83 H 95 12/18/22 07:10 55 L 18 12/18/22 07:00 56 L 18 12/18/22 07:00 142/75 H 12/18/22 06:50 62 19 12/18/22 06:40 56 L 19 12/18/22 06:30 56 L 17 12/18/22 06:30 139/71 12/18/22 06:20 58 L 18 12/18/22 06:10 61 21 12/18/22 06:01 139/75 12/18/22 06:01 63 24 12/18/22 06:00 61 18 12/18/22 05:50 59 L 20 12/18/22 05:40 56 L 18 12/18/22 05:30 57 L 18 12/18/22 05:30 98/59 L 12/18/22 05:20 61 18 12/18/22 00:00 12/18/22 06:45 36.6 C 56 L 18 139/71 94 12/18/22 05:45 36.6 C 57 L 19 102/62 94 12/18/22 05:15 58 L 19 12/18/22 05:01 102/62 12/18/22 05:01 57 L 19 12/18/22 05:00 56 L 18 12/18/22 04:45 55 L 19 94 12/18/22 04:31 55 L 20 12/18/22 04:31 128/83 12/18/22 04:30 56 L 20 12/18/22 04:15 55 L 18 12/18/22 04:00 55 L 17 12/18/22 04:00 91/46 L 12/18/22 03:45 56 L 19 12/18/22 03:30 56 L 18 12/18/22 03:30 89/55 L 12/18/22 03:15 58 L 19 94 12/18/22 03:00 59 L 19 12/18/22 03:00 98/60 L 12/18/22 02:45 64 20 94 12/18/22 02:30 69 24 96 12/18/22 02:30 137/80 12/18/22 02:15 71 18 96 12/18/22 02:00 69 17 12/18/22 02:00 145/87 H 12/18/22 01:50 66 22 12/18/22 01:50 145/80 H 12/18/22 01:45 66 21 12/18/22 00:00 69 12/18/22 04:45 36.7 C 55 L 18 128/83 94 12/18/22 04:15 36.4 C L 53 L 17 91/46 L 94 12/18/22 03:45 36.6 C 54 L 18 89/55 L 94 12/18/22 03:15 37 C 60 20 98/60 L 95 12/18/22 02:45 36.6 C 64 19 137/80 95 12/18/22 02:15 36.6 C 73 14 145/87 H 95 12/18/22 01:45 36.5 C 68 21 145/80 H 96 12/18/22 01:31 71 24 12/18/22 01:30 25 H 12/18/22 01:18 67 18 97 12/18/22 01:18 142/75 H 12/18/22 01:15 64 18 12/18/22 01:00 67 17 100 12/18/22 00:45 65 24 12/18/22 00:30 28 H 96 12/18/22 00:30 141/85 H 12/18/22 00:15 87 21 97 12/18/22 00:00 92 H 19 12/18/22 00:00 142/75 H 12/17/22 23:45 22 96 12/17/22 23:44 21 96 12/17/22 23:44 151/77 H 12/17/22 23:35 74 36 H 12/17/22 23:35 164/96 H 12/17/22 23:33 98 H 23 12/18/22 01:15 36.6 C 65 19 142/75 H 96 12/18/22 00:45 36.8 C 56 L 23 140/80 94 12/18/22 00:15 36.6 C 62 21 141/85 H 98 12/17/22 23:45 36.5 C 70 21 151/77 H 99 12/17/22 23:44 36.5 C 88 18 142/75 H 94 12/17/22 23:15 64 18 136/71 93 O2 Del Method O2 Flow Rate 12/18/22 10:45 Room Air 12/18/22 10:00 Room Air 12/18/22 09:45 Nasal Cannula 4 12/18/22 08:00 12/18/22 08:45 Room Air 12/18/22 07:45 Room Air 12/18/22 07:10 12/18/22 07:00 12/18/22 07:00 12/18/22 06:50 12/18/22 06:40 12/18/22 06:30 12/18/22 06:30 12/18/22 06:20 12/18/22 06:10 12/18/22 06:01 12/18/22 06:01 12/18/22 06:00 12/18/22 05:50 12/18/22 05:40 12/18/22 05:30 12/18/22 05:30 12/18/22 05:20 12/18/22 00:00 Room Air 12/18/22 06:45 Room Air 12/18/22 05:45 Room Air 12/18/22 05:15 12/18/22 05:01 12/18/22 05:01 12/18/22 05:00 12/18/22 04:45 12/18/22 04:31 12/18/22 04:31 12/18/22 04:30 12/18/22 04:15 12/18/22 04:00 12/18/22 04:00 12/18/22 03:45 12/18/22 03:30 12/18/22 03:30 12/18/22 03:15 12/18/22 03:00 12/18/22 03:00 12/18/22 02:45 12/18/22 02:30 12/18/22 02:30 12/18/22 02:15 12/18/22 02:00 12/18/22 02:00 12/18/22 01:50 12/18/22 01:50 12/18/22 01:45 12/18/22 00:00 12/18/22 04:45 Room Air 12/18/22 04:15 Room Air 12/18/22 03:45 Room Air 12/18/22 03:15 Room Air 12/18/22 02:45 Room Air 12/18/22 02:15 Room Air 12/18/22 01:45 Room Air 12/18/22 01:31 12/18/22 01:30 12/18/22 01:18 12/18/22 01:18 12/18/22 01:15 12/18/22 01:00 12/18/22 00:45 12/18/22 00:30 12/18/22 00:30 12/18/22 00:15 12/18/22 00:00 12/18/22 00:00 12/17/22 23:45 12/17/22 23:44 12/17/22 23:44 12/17/22 23:35 12/17/22 23:35 12/17/22 23:33 12/18/22 01:15 Room Air 12/18/22 00:45 Room Air 12/18/22 00:15 Room Air 12/17/22 23:45 Room Air 12/17/22 23:44 Room Air 12/17/22 23:15 Room Air Laboratory Results Laboratory Results WBC 7.25 K/ul (4.8-10.8) 12/18/22 04:30 RBC 3.21 M/uL (4.20-5.40) L 12/18/22 04:30 Hgb 10.1 g/dl (12.0-16.0) L 12/18/22 04:30 Hct 30.9 % (37.0-47.0) L 12/18/22 04:30 MCV 96.3 fL (80.0-100.0) 12/18/22 04:30 MCH 31.5 pg (25.0-34.0) 12/18/22 04:30 MCHC 32.7 g/dL (32.0-36.0) 12/18/22 04:30 RDW Std Deviation 50.0 fL (36.4-46.3) H 12/18/22 04:30 RDW Coeff of Julia 14.2 % (11.5-14.5) 12/18/22 04:30 Plt Count 154 K/uL (130-400) 12/18/22 04:30 MPV 10.9 fL (9.4-12.4) 12/18/22 04:30 Immature Gran % (Auto) 0.4 % 12/18/22 04:30 Neut % (Auto) 51.3 % 12/18/22 04:30 Lymph % (Auto) 37.9 % 12/18/22 04:30 [place] % (Auto) 8.1 % 12/18/22 04:30 Eos % (Auto) 1.9 % 12/18/22 04:30 Baso % (Auto) 0.4 % 12/18/22 04:30 Neut # (Auto) 3.71 K/uL (1.40-6.50) 12/18/22 04:30 Lymph # (Auto) 2.75 K/uL (1.2-3.4) 12/18/22 04:30 [place] # (Auto) 0.59 K/uL (0.11-0.59) 12/18/22 04:30 Eos # (Auto) 0.14 K/uL (0-0.50) 12/18/22 04:30 Baso # (Auto) 0.03 K/uL (0-0.2) 12/18/22 04:30 Immature Gran # (Auto) 0.03 K/uL (0.01-0.20) 12/18/22 04:30 PT 11.4 Seconds (9.0-12.0) 12/17/22 20:10 INR 1.0 (0.9-1.1) 12/17/22 20:10 APTT 25.5 Seconds (21.0-31.0) 12/17/22 20:10 PTT Ratio 0.9 12/17/22 20:10 Sodium 139 mmol/L (136-145) 12/18/22 04:30 Potassium 3.1 mmol/L (3.5-5.1) L 12/18/22 04:30 Chloride 108 mmol/L (98-107) H 12/18/22 04:30 Carbon Dioxide 23 mmol/L (21-32) 12/18/22 04:30 Anion Gap 8 (3-11) 12/18/22 04:30 BUN 29 mg/dl (6-23) H 12/18/22 04:30 Creatinine 1.36 mg/dl (0.6-1.2) H D 12/18/22 04:30 Est Cr Clr Drug Dosing 29.9 ml/min 12/18/22 04:30 Est GFR ( Amer) 44.0 ml/min 12/18/22 04:30 Est GFR (Non-Af Amer) 38.0 ml/min 12/18/22 04:30 BUN/Creatinine Ratio 21.3 (10-20) H 12/18/22 04:30 Glucose 119 mg/dl (70-99(Fasting)) H 12/18/22 04:30 POC Glucose 90 mg/dl (70-99) 12/18/22 11:01 Estimat Average Glucose 134 mg/dl 12/18/22 04:30 Hemoglobin A1c 6.3 % (4.5-5.6) H 12/18/22 04:30 Calcium 8.3 mg/dl (8.6-10.3) L 12/18/22 04:30 Phosphorus 2.8 mg/dl (2.5-4.9) 12/18/22 04:30 Magnesium 2.1 mg/dl (1.7-2.4) 12/18/22 04:30 Iron 63 mcg/dl (35-150) 12/18/22 04:30 Unsaturated IBC 314 mcg/dl (155-355) 12/18/22 04:30 Total Bilirubin 0.2 mg/dl (0.2-1.0) 12/17/22 20:10 AST 13 U/L (13-39) 12/17/22 20:10 ALT 7 U/L (7-52) 12/17/22 20:10 Alkaline Phosphatase 46 U/L (34-104) 12/17/22 20:10 Troponin I High Sens 6.1 pg/ml (0-14) 12/17/22 20:10 Total Protein 6.7 gm/dl (6.0-8.3) 12/17/22 20:10 Albumin 4.0 gm/dl (3.4-5.0) 12/17/22 20:10 Globulin 2.7 gm/dl (2.5-4.0) 12/17/22 20:10 Albumin/Globulin Ratio 1.5 (0.9-2) 12/17/22 20:10 Triglycerides 216 mg/dl (0-150) H 12/18/22 04:30 Cholesterol 134 mg/dl (0-200) 12/18/22 04:30 LDL Cholesterol, Calc 58 mg/dl 12/18/22 04:30 VLDL Cholesterol, Calc 43 mg/dl (0-30) H 12/18/22 04:30 HDL Cholesterol 33 mg/dl 12/18/22 04:30 Cholesterol/HDL Ratio 4.1 (0-5) 12/18/22 04:30 Urine Color Yellow 12/18/22 07:50 Urine Appearance Clear (Clear) 12/18/22 07:50 Urine pH 5.5 (4.5-7.5) 12/18/22 07:50 Ur Specific [place] 1.025 (1.000-1.030) 12/18/22 07:50 Urine Protein Trace (Negative) H 12/18/22 07:50 Urine Glucose (UA) Negative (Negative) 12/18/22 07:50 Urine Ketones Negative (Negative) 12/18/22 07:50 Urine Blood Negative (Negative) 12/18/22 07:50 Urine Nitrite Negative (Negative) 12/18/22 07:50 Urine Bilirubin Negative (Negative) 12/18/22 07:50 Urine Urobilinogen Negative (Negative) 12/18/22 07:50 Ur Leukocyte Esterase Negative (Negative) 12/18/22 07:50 Urine WBC (Auto) 1-5 /hpf (0-5) 12/18/22 07:50 Urine RBC (Auto) 0-4 /hpf (0-4) 12/18/22 07:50 U Hyaline Cast (Auto) 0 /lpf (0-5) 12/18/22 07:50 U Epithel Cells (Auto) >30 /lpf (0-5) H 12/18/22 07:50 Urine Bacteria (Auto) Negative (Negative) 12/18/22 07:50 Urine Yeast Budding (None Prsent) A 12/18/22 07:50 Nasal Screen MRSA (PCR) Negative (Negative) 12/18/22 01:45 Blood Type A Positive 12/17/22 20:23 Antibody Screen NEGATIVE 12/17/22 20:[address] 12/17/22 20:06 CR Exam(s): CT HEAD Without Contrast EXAM: CT Head Without Intravenous Contrast CLINICAL HISTORY: Reason for exam: neuro deficit, acute stroke suspected. TECHNIQUE: Axial computed tomography images of the head/brain without intravenous contrast. CTDI is 46.02 mGy and DLP is 1058.53 mGy-cm. Automated exposure control was utilized for the study. A dose lowering technique was utilized adhering to the principles of ALARA. COMPARISON: No relevant prior studies available. FINDINGS: Brain: Mild ischemic microangiopathy. No hemorrhage. Ventricles: Unremarkable. No ventriculomegaly. Bones/joints: Unremarkable. No acute fracture. Soft tissues: Unremarkable. Sinuses: Unremarkable as visualized. No acute sinusitis. Mastoid air cells: Unremarkable as visualized. No mastoid effusion. Nasopharynx: soft tissue mass within the right side of the nasopharynx incompletely evaluated on this exam. IMPRESSION: 1. Soft tissue mass in the right side of the nasopharynx is incompletely evaluated on this exam but may represent underlying mass. Direct visual inspection is recommended for further evaluation 2. Head CT negative for acute intracranial abnormality. Communications: Call Doctor Stroke Electronically signed by: Garry Fields MD 12/17/22 20:26 PM Head CTA 12/17/22 20:06 Exam(s): CTA HEAD With Contrast IV Amt: 113ML OPITRAY 350 EXAM: CT Angiography Head With Intravenous Contrast CLINICAL HISTORY: Reason for exam: neuro deficit, acute stroke suspected. TECHNIQUE: Axial computed tomographic angiography images of the head with intravenous contrast. CTDI is 46.02 mGy and DLP is 1058.53 mGy-cm. Automated exposure control was utilized for the study. A dose lowering technique was utilized adhering to the principles of ALARA. MIP reconstructed images were created and reviewed. CONTRAST: Patient received 113ML OPITRAY 350 of IV contrast COMPARISON: No relevant prior studies available. FINDINGS: Limitations: Exam somewhat limited secondary to venous contamination. Right internal carotid artery: No acute findings. Intracranial segment is patent with no significant stenosis. No aneurysm. Right anterior cerebral artery: Unremarkable. No occlusion or significant stenosis. No aneurysm. Right middle cerebral artery: Unremarkable. No occlusion or significant stenosis. No aneurysm. Right posterior cerebral artery: Unremarkable. No stenosis, dissection, or occlusion. There is a suggestion of a 0.5 cm aneurysm involving the distal branches of the RODENT EXTERMINATOR best appreciated on axial image 31 series 64. Right vertebral artery: Unremarkable as visualized. Left internal carotid artery: No acute findings. Intracranial segment is patent with no significant stenosis. No aneurysm. Left anterior cerebral artery: Unremarkable. No occlusion or significant stenosis. No aneurysm. Left middle cerebral artery: Unremarkable. No occlusion or significant stenosis. No aneurysm. Left posterior cerebral artery: See above. Left vertebral artery: Unremarkable as visualized. Basilar artery: Unremarkable. No occlusion or significant stenosis. No aneurysm. IMPRESSION: 1. Exam limited as described above 2. 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 Electronically signed by: Garry Fields MD 12/17/22 20:47 PM Neck CTA 12/17/22 20:06 Exam(s): CTA NECK With Contrast IV Amt: 113ML OPTIRAY 350 EXAM: CT Angiography Neck With Intravenous Contrast CLINICAL HISTORY: Reason for exam: neuro deficit, acute stroke suspected. TECHNIQUE: Routine carotid CT angiography protocol was performed with intravenous contrast. NASCET criteria using the distal ICAs for comparison were used for evaluation of stenoses. CTDI is 46.02 mGy and DLP is 1058.53 mGy-cm. Automated exposure control was utilized for the study. A dose lowering technique was utilized adhering to the principles of ALARA. MIP reconstructed images were created and reviewed. CONTRAST: Patient received 113ML OPTIRAY 350 of IV contrast COMPARISON: None. FINDINGS: VASCULATURE: Right common carotid artery: Unremarkable. No occlusion or significant stenosis. No dissection. Right internal carotid artery: Unremarkable. Extracranial segment is patent with no occlusion or significant stenosis. No dissection. Right external carotid artery: Unremarkable. No occlusion. Right vertebral artery: Unremarkable. No occlusion or significant stenosis. No dissection. Left common carotid artery: Unremarkable. No occlusion or significant stenosis. No dissection. Left internal carotid artery: Unremarkable. Extracranial segment is patent with no occlusion or significant stenosis. No dissection. Left external carotid artery: Unremarkable. No occlusion. Left vertebral artery: Unremarkable. No occlusion or significant stenosis. No dissection. NECK: Bones/joints: Unremarkable. Soft tissues: Unremarkable. Nasopharynx: 2.9 x 2 cm soft tissue mass originating at the level of the right side of the nasopharynx extending inferiorly to the oropharynx consistent with asymmetric soft tissue prominence of the right palatine tonsil. Lung apices: Clear. CAROTID STENOSIS REFERENCE USING NASCET CRITERIA: % ICA stenosis = (1 - narrowest ICA diameter/diameter of distal cervical ICA) x 100. Mild - <50% stenosis. Moderate - 50-69% stenosis. Severe - 70-94% stenosis. Near occlusion - 95-99% stenosis. Occluded - 100% stenosis. IMPRESSION: 1. Extracranial circulation is within normal limits without evidence of dissection, aneurysm, stenosis or occlusion 2. 2.9 x 2 cm asymmetric soft tissue thickening involving the right palatine tonsil extending from the nasopharynx inferiorly is worrisome for underlying mass. Direct visual inspection is recommended. Electronically signed by: Garry Fields MD 12/17/22 20:58 PM Chest X-Ray 12/17/22 20:14 SINGLE VIEW CHEST CLINICAL HISTORY: Strokelike symptoms. FINDINGS: An AP, portable, upright chest radiograph is compared to study dated 10/05/2022. A 3-lead cardiac AICD is unchanged in position and partially obscures the left lower chest. The heart is enlarged and noting atherosclerotic calcification of the thoracic aorta. The pulmonary vasculature is noncongested. Chronic interstitial thickening is similar to previous. There is mild bibasilar scarring/atelectasis. No airspace consolidation or large pleural effusion is identified. No pneumothorax is seen. The skeletal structures are osteopenic. The bony thorax is grossly intact. Cholecystectomy clips are noted in the right upper quadrant. IMPRESSION: 1. Cardiomegaly and AICD without radiographic evidence of congestive failure. 2. No airspace consolidation or large pleural effusion is identified. ACT 112: Negative or not required by law. Electronically signed by: Saeed Guallpa M.D. 12/17/2022 8:39 PM Medications Administered Current Inpatient Medications Acetaminophen (Acetaminophen 325 Mg Tab) 650 mg PO Q6H PRN PRN Reason: Fever/Pain Stop: 01/17/23 00:00 Aspirin (No Aspirin Within 24hrs Of Thrombolytic-Stroke) 1 each PO UD [facility] Stop: 12/18/22 20:29 Atorvastatin Calcium (Atorvastatin 20 Mg Tab) 20 mg PO DAILY LISHA Stop: 01/17/23 08:59 Last Admin: 12/18/22 08:17 Dose: 20 mg Dextrose (Dextrose 50% 50 Ml Syringe) 25 - 50 ml IV UD PRN; Protocol PRN Reason: Hypoglycemia Protocol Stop: 01/17/23 00:00 Gabapentin (Gabapentin 100 Mg Cap) 200 mg PO TID LISHA Stop: 01/17/23 08:59 Last Admin: 12/18/22 08:17 Dose: 200 mg Glucagon (Glucagon For Inj 1 Mg Vial) 1 mg SQ UD PRN; Protocol PRN Reason: Hypoglycemia Protocol Stop: 01/17/23 00:00 Glucose (Glucose 10 Tab/Tube) 4 - 8 tab PO UD PRN; Protocol PRN Reason: Hypoglycemia Treatment Stop: 01/17/23 00:00 Glucose (Glucose 40% Gel 15 Gm Tube) 15 - 30 gm PO UD PRN; Protocol PRN Reason: Hypoglycemia Protocol Stop: 01/17/23 00:00 Hydroxyzine HCl (Hydroxyzine Hcl 25 Mg Tab) 25 mg PO TID PRN PRN Reason: Anxiety Stop: 01/17/23 00:00 Sodium Chloride (Nss 1000ml) 1,000 mls @ 60 mls/hr IV .[id number] ONE Stop: 12/18/22 14:22 Last Admin: 12/18/22 01:07 Dose: 60 mls/hr Promethazine HCl 6.25 mg/ (Sodium Chloride) 50.25 mls @ 201 mls/hr IV Q6H PRN PRN Reason: Nausea And Vomiting Stop: 01/17/23 00:00 Insulin Aspart (Insulin Aspart Per Unit Charge) 0 units SC ACHS [facility] Stop: 01/17/23 00:00 Last Admin: 12/18/22 08:17 Dose: 1 units Metoprolol Succinate (Metoprolol Succ 25mg Ext Rel Tab) 25 mg PO DAILY [facility] Stop: 01/17/23 08:59 Last Admin: 12/18/22 08:17 Dose: 25 mg Miscellaneous (Carbohydrates For Hypoglycemia ) 15 - 30 gm PO UD PRN PRN Reason: Hypoglycemia Protocol Stop: 01/17/23 00:00 Oxycodone HCl (Oxycodone Hcl Ir 5 Mg Tab (Immediate Release)) 5 mg PO Q4H PRN PRN Reason: Pain Stop: 01/01/23 00:00 Pantoprazole Sodium (Pantoprazole 40 Mg Tab) 40 mg PO DAILYBB LISHA Stop: 01/17/23 06:29 Last Admin: 12/18/22 08:17 Dose: 40 mg Trazodone HCl (Trazodone Hcl 50 Mg Tab) 25 mg PO HS [facility] Stop: 01/17/23 20:59 Umeclidinium/Vilanterol (Umeclidinium/Vilanterol 62.5/25mcg 7 Puffs/Inhaler) 1 puffs INH DAILY LISHA Stop: 01/17/23 08:59 Last Admin: 12/18/22 08:17 Dose: 1 puffs Venlafaxine HCl (Venlafaxine Hcl Xr 150 Mg Capxr) 150 mg PO HS [facility] Stop: 01/17/23 20:59 Coding Level of Care Code 75400 CRITICAL CARE 1ST 30-74M History Detailed Medical Decision Making Moderate Complexity Diagnoses Acute CVA (cerebrovascular accident) I63.9 Acute left-sided weakness R53.1 Seizure R56.9 Tonsillar mass J35.8 Time Spent (min) 45
[2022-12-18 12:32] LABS: BUN Creatinine Ratio 20.2 (10-20); Calcium 8.6 mg/dl (8.6-10.3); Creatinine Clr Calc Pharmacy 37.3 ml/min; Est GFR (African American) 57.5 ml/min; Est GFR (Non-African American) 49.6 ml/min; Potassium 3.9 mmol/L (3.5-5.1)
[2022-12-18] MEDS: NSS + 20MEQ KCL 20 MEQ/1,000 ML BAG IV SCH (13:06)
[2022-12-18] MEDS: levETIRAcetam 500 MG TAB PO SCH ×2 (13:06→22:09)
--- NOTE | 2022-12-18 13:46 | Hospitalist Progress Note ---
Date of Service December 18, 2022 Assessment & Plan (1) Acute CVA (cerebrovascular accident): Plan 77-year-old lady with PMH of chronic systolic/diastolic heart failure s/p ICD [recent EF of 60 to 65%, TTE 2022], CAD s/p stent, chronic LBBB, mild aortic regurgitation, AAA, HTN, HLD, COPD, DM 2 diet controlled, HCV status post treatment, chronic anemia [baseline hemoglobin of 10], history of DVT supposedly on Eliquis, possible seizure disorder supposedly on Keppra treatment, right n asopharyngeal mass, ongoing tobacco abuse presented to the ED 12/17 with acute onset of left upper extremity weakness and numbness without neck pain or shoulder pain. She is being managed for the following: Acute CVA Patient came in with LUE weakness and numbness, LLE numbness. CT head, CTA head and neck, CXR done at admission, reviewed. MRI could not be done/her pacemaker could not be verified as MRI compatible. Patient is status post TNKase evening of 12/17 at around 8:45 PM. Patient reports resolution of LLE numbness, reports improving LUE symptoms. No concerns of hemoptysis, GI bleed, headache. Aspirin and Eliquis on hold until 24 hours [address] T[address]ase. Repeat CT Head later in the evening today prior to resuming them. Of note, patient was not taking Eliquis for a month prior to arrival ?? Noncompliance LDL 58, A1c 6.3. Neurology consulted, await recommendation. Patient being monitored in ICU status post TNKase for 24 hours. Acute kidney injury: Creatinine of 1.82 at presentation, status post IV fluid, resolved. History of seizure disorder: Recent confinement in September 2022 with altered mental status when patient was noted to have myoclonic jerk and neurology evaluated, was discharged on Keppra. Patient has not been taking Keppra for about a month prior to arrival. Resume keppra. History of DVT: history of RLE DVT, patient supposedly to complete 3 months Eliquis anticoagulation (last dose 01/05/2023), unable to take Eliquis the last 6 weeks due to PCP office miscommunication Recent history of incidental finding of right nasopharyngeal mass: Again noted in CT head and neck this admission. ENT consult. Follow-up ENT as an outpatient. Appears outpatient ENT evaluation is scheduled for January 2023. Other chronic medical conditions: c/w or resume home meds as and when able. Systolic/diastolic heart failure s/p ICD (recent EF of 60 to 65%, TTE 2022), patient on the dry side CAD status post stent chronic LBBB mild aortic regurgitation AAA, stable at 3 cm measurement as of 2022 outpatient aortic duplex hypertension hyperlipidemia, on statin Rx COPD, status at baseline DM2 diet-controlled, patient unaware of diagnosis documented in outpatient problem list. Documented inpatient hemoglobin A1c of 7.1 from 2020. A1C 6.3 this admission. HCV status post tx chronic anemia, hemoglobin at baseline chronic pain ongoing tobacco abuse: needs counselling. DVT Px: SCDs, TNKase last evening Full Code. Admission and Anticipated Discharge Date Admission Date: December 17, 2022 Subjective Patient seen and examined at bedside as a follow-up of acute CVA. Patient was lying in bed, on room air, NAD, reports no new acute event overnight, denies any headache or dizziness, denies any chest pain or palpitation or belly pain, no acute problems with bowel or bladder habit per patient. Reports improving left upper extremity weakness and numbness tingling. Reports improvement in her numbness of the left foot. Physical Exam Physical Exam: GENERAL: Alert and oriented x3. NAD, on RA. HEENT: No pallor, no icterus. Pupils equal, round and reactive to light. Oral mucosa moist. NECK: No JVD, no neck masses. HEART: S1 and S2 heard. Regular rate and rhythm. No murmur, no gallop. RESPIRATORY SYSTEM: Normal AP diameter. No accessory muscle use. No wheezing, no crackles. ABDOMEN: Soft, bowel sounds present, nontender, no distention. CENTRAL NERVOUS SYSTEM: No facial droop. Speech is clear. Obeys simple commands. Moves extremities. 5/5 perfusionist BUE EXTREMITIES: No edema, no erythema seen. Results & Data Results & Data Vital Signs (Past 12 Hours) Vital Signs Temp Pulse Pulse Resp BP BP Pulse Ox 12/18/22 12:45 37.0 C 74 20 129/71 95 12/18/22 11:45 36.8 C 86 18 145/72 H 97 12/18/22 10:45 36.8 C 62 20 168/86 H 90 12/18/22 10:00 12/18/22 09:45 65 18 99/42 L 94 12/18/22 08:00 55 L 12/18/22 08:45 37.0 C 60 18 117/94 93 12/18/22 07:45 36.8 C 68 18 145/83 H 95 12/18/22 07:10 55 L 18 12/18/22 07:00 56 L 18 12/18/22 07:00 142/75 H 12/18/22 06:50 62 19 12/18/22 06:40 56 L 19 12/18/22 06:30 56 L 17 12/18/22 06:30 139/71 12/18/22 06:20 58 L 18 12/18/22 06:10 61 21 12/18/22 06:01 139/75 12/18/22 06:01 63 24 12/18/22 06:00 61 18 12/18/22 05:50 59 L 20 12/18/22 05:40 56 L 18 12/18/22 05:30 57 L 18 12/18/22 05:30 98/59 L 12/18/22 05:20 61 18 12/18/22 06:45 36.6 C 56 L 18 139/71 94 12/18/22 05:45 36.6 C 57 L 19 102/62 94 12/18/22 05:15 58 L 19 12/18/22 05:01 102/62 12/18/22 05:01 57 L 19 12/18/22 05:00 56 L 18 12/18/22 04:45 55 L 19 94 12/18/22 04:31 55 L 20 12/18/22 04:31 128/83 12/18/22 04:30 56 L 20 12/18/22 04:15 55 L 18 12/18/22 04:00 55 L 17 12/18/22 04:00 91/46 L 12/18/22 03:45 56 L 19 12/18/22 03:30 56 L 18 12/18/22 03:30 89/55 L 12/18/22 03:15 58 L 19 94 12/18/22 03:00 59 L 19 12/18/22 03:00 98/60 L 12/18/22 02:45 64 20 94 12/18/22 02:30 69 24 96 12/18/22 02:30 137/80 12/18/22 02:15 71 18 96 12/18/22 02:00 69 17 12/18/22 02:00 145/87 H 12/18/22 01:50 66 22 12/18/22 01:50 145/80 H 12/18/22 01:45 66 21 12/18/22 04:45 36.7 C 55 L 18 128/83 94 12/18/22 04:15 36.4 C L 53 L 17 91/46 L 94 12/18/22 03:45 36.6 C 54 L 18 89/55 L 94 12/18/22 03:15 37 C 60 20 98/60 L 95 12/18/22 02:45 36.6 C 64 19 137/80 95 12/18/22 02:15 36.6 C 73 14 145/87 H 95 12/18/22 01:45 36.5 C 68 21 145/80 H 96 12/18/22 01:31 71 24 12/18/22 01:30 25 H O2 Del Method O2 Flow Rate 12/18/22 12:45 Room Air 12/18/22 11:45 Room Air 12/18/22 10:45 Room Air 12/18/22 10:00 Room Air 12/18/22 09:45 Nasal Cannula 4 12/18/22 08:00 12/18/22 08:45 Room Air 12/18/22 07:45 Room Air 12/18/22 07:10 12/18/22 07:00 12/18/22 07:00 12/18/22 06:50 12/18/22 06:40 12/18/22 06:30 12/18/22 06:30 12/18/22 06:20 12/18/22 06:10 12/18/22 06:01 12/18/22 06:01 12/18/22 06:00 12/18/22 05:50 12/18/22 05:40 12/18/22 05:30 12/18/22 05:30 12/18/22 05:20 12/18/22 06:45 Room Air 12/18/22 05:45 Room Air 12/18/22 05:15 12/18/22 05:01 12/18/22 05:01 12/18/22 05:00 12/18/22 04:45 12/18/22 04:31 12/18/22 04:31 12/18/22 04:30 12/18/22 04:15 12/18/22 04:00 12/18/22 04:00 12/18/22 03:45 12/18/22 03:30 12/18/22 03:30 12/18/22 03:15 12/18/22 03:00 12/18/22 03:00 12/18/22 02:45 12/18/22 02:30 12/18/22 02:30 12/18/22 02:15 12/18/22 02:00 12/18/22 02:00 12/18/22 01:50 12/18/22 01:50 12/18/22 01:45 12/18/22 04:45 Room Air 12/18/22 04:15 Room Air 12/18/22 03:45 Room Air 12/18/22 03:15 Room Air 12/18/22 02:45 Room Air 12/18/22 02:15 Room Air 12/18/22 01:45 Room Air 12/18/22 01:31 12/18/22 01:30
--- NOTE | 2022-12-18 13:52 | Neurology Consultation ---
Date of Consultation December 18, 2022 Assessment & Plan (1) Acute ischemic right MCA stroke: A 77 year old female with multiple stroke risk factors including CAD s/p stent / defibillator on ASA, HTN, type II and chronic smoker admitted with acute onste left hand numbness and weakness s/p IV TNK. ON examine she has weakness with extension, flexion, and abduction of the fingers as well as wrist flexion. Face is symmetric. Suspect lacunar or smal vessel ischemic stroke. CT head and CTA head and neck Negative although unlikely to see small lacunar stroke on CT. Unable to get MRI brain due to defibulator. Agree with repeat CT head in 24 hours post TNK. Patient intolerant to statins (LDL is 58). Would start Plavix 75 daily for secondary stroke prevention. Would resume home Eliquis for DVT. Discussed importance of smoking cessation. HA1c is well controlled. Blood pressure is well controlled. PT/OT for rehab needs. Follow up with Neuro in 8 weeks as outpatient. (2) Acute left-sided weakness: History of Present Illness Reason for Consultation: Left hand weakness Requesting Physician: Dr. Crawford Attending Physician: Yonny Crawford MD History of Present Illness A 77-year-old female with Hx of chronic systolic/diastolic heart failure s/p ICD [recent EF of 60 to 65%, TTE 2022], CAD s/p stent on ASA, chronic LBBB, mild aortic regurgitation, AAA, HTN, HLD, COPD, type II DM, HCV status post treatment, chronic anemia [baseline hemoglobin of 10], history of DVT supposedly on Eliquis, possible seizure disorder supposedly on Keppra treatment, right nasopharyngeal mass, ongoing tobacco abuse admitted with acute left hand weakness. Symptom onset yesterday. Presented to the ER and recieve IV TNK. Patient continues to have left hand weakness and numbness. Symptoms occured after waking from a nap. She was in chair and did not sleep on hand. No EtOH. She smokes 8-10 cigarettes per day. Diagnosed w right leg DVT. Not on Eliquis due to miscommunication. Denies left leg or facial weakness. Has chronic left foot numbness. Allergies Allergy/AdvReac Type Severity Reaction Status Date / Time NSAIDS (Non-Steroidal AdvReac Severe GI ISSUES Verified 12/17/22 20:25 Anti-Inflamma Yhjrnum-OXK-YjC Reductase AdvReac Severe LIVER Verified 12/17/22 20:25 Inhibitor FUNCTION [Qeltpan-Txm-Was Reductase ELEVATES Inhibitor] isosorbide AdvReac Intermediate VOMIT/HEADA Verified 12/17/22 20:25 CARLOS tramadol AdvReac Intermediate VOMITING Verified 12/17/22 20:25 Home Medications Medication Instructions Recorded Confirmed Type aspirin 81 mg tablet,delayed 81 mg PO DAILY ##0 03/30/17 12/17/22 History release clonidine HCl 0.1 mg tablet 0.05 mg PO DAILY #0 tabs 03/30/17 12/17/22 History nitroglycerin 0.4 mg sublingual 0.4 mg sublingual DIRECTED PRN 03/30/17 12/17/22 History tablet Chest Pain #0 BTLS pantoprazole 40 mg tablet,delayed 40 mg PO DAILYBB #30 tabs 03/30/17 12/17/22 History release lisinopril 20 mg tablet 20 mg PO DAILY ##0 07/27/17 12/17/22 History metoprolol succinate 100 mg 100 mg PO DAILY #0 tabs 07/27/17 12/17/22 History tablet,extended release 24 hr oxycodone 5 mg tablet 5 mg PO Q6H PRN Severe Pain (Scale 08/16/20 12/17/22 History Score 7-10) trazodone 50 mg tablet 25 mg PO HS 08/16/20 12/17/22 History atorvastatin 40 mg tablet 20 mg PO DAILY 10/05/22 12/17/22 History furosemide 40 mg tablet 40 mg PO DAILY 10/05/22 12/17/22 History potassium chloride 20 mEq 20 meq PO DAILY 10/05/22 12/17/22 History tablet,extended release(part/cryst) venlafaxine 150 mg 150 mg PO HS 10/05/22 12/17/22 History capsule,extended release 24 hr apixaban 5 mg tablet (Eliquis) 5 mg PO BID #45 tabs 10/09/22 12/17/22 Rx levetiracetam 500 mg tablet 500 mg PO BID 30 days #60 tabs 10/09/22 12/17/22 Rx albuterol sulfate 90 mcg/actuation 2 puff inhalation Q4H PRN 12/17/22 12/17/22 History aerosol inhaler Shortness Of Breath Or Wheezing gabapentin 300 mg capsule 300 mg PO TID 12/17/22 12/17/22 History hydroxyzine HCl 25 mg tablet 25 mg PO TID PRN Anxiety 12/17/22 12/17/22 History ondansetron HCl 4 mg tablet 4 mg PO Q8H PRN Nausea 12/17/22 12/17/22 History umeclidinium 62.5 mcg-vilanterol 1 inh inhalation DAILY 12/17/22 12/17/22 History 25 mcg/actuation powdr for inhalation (Anoro Ellipta) Patient History Medical History Acute anterior wall AR Anxiety CAD (coronary artery disease) "AR 2006. S/P PCI/Stent RCA" Chronic hepatitis C without hepatic coma Chronic pain CKD (chronic kidney disease), stage III COPD, group C, by GOLD 2017 classification Elevated troponin GERD (gastroesophageal reflux disease) H/O cardiac pacemaker HTN (hypertension) Hyperlipidemia Hypoxia Ischemic cardiomyopathy LBBB (left bundle branch block) Migraine OA (osteoarthritis) Respiratory acidosis Surgical History H/O release of tendon H/O: hysterectomy History of carpal tunnel surgery History of implantable cardioverter-defibrillator (ICD) placement Hx of cataract surgery S/P cardiac cath S/P cholecystectomy Family History (Updated 10/06/22 @ 09:45 by Silvestre Winter MD) Father , age 81 of lung cancer Prostate cancer Heart disease Thyroid disorder Lung cancer Mother , age 80 with COPD Cancer Cervical Coronary heart disease s/p CABG Diabetes COPD (chronic obstructive pulmonary disease) Social History Smoking Status: Current every day smoker Tobacco Type: Cigarettes Age Started Using Tobacco: 23; packs per day: 0.5; Cigarettes Per Day: 8-10; Second Hand Exposure: No; Do You Dip or Chew Tobacco: No; Tobacco Cessation Education Requested by Patient: No Hx Alcohol Use: No Hx Substance Use: No Preferred Language: Tamazight Communication Ability: Effective Bog Cutter Required: No Beliefs That Will Affect Care: None Current Living Situation: Alone current occupational status: retired 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 Awake and alert. Speech is clear and fluent. Followin g command.s Eyes midline. EOMI. No drift in upper extremities. Left hand is weak unable to make fist or extend wrist. Interosseous are weak. Sensation reduced in left hand. Face symmetric . Tongue midline. Results & Data Vital Signs (Past 12 Hours) Vital Signs Temp Pulse Pulse Resp BP BP Pulse Ox 12/18/22 13:45 37.1 C 72 20 125/67 93 12/18/22 12:45 37.0 C 74 20 129/71 95 12/18/22 11:45 36.8 C 86 18 145/72 H 97 12/18/22 10:45 36.8 C 62 20 168/86 H 90 12/18/22 10:00 12/18/22 09:45 65 18 99/42 L 94 12/18/22 08:00 55 L 12/18/22 08:45 37.0 C 60 18 117/94 93 12/18/22 07:45 36.8 C 68 18 145/83 H 95 12/18/22 07:10 55 L 18 12/18/22 07:00 56 L 18 12/18/22 07:00 142/75 H 12/18/22 06:50 62 19 12/18/22 06:40 56 L 19 12/18/22 06:30 56 L 17 12/18/22 06:30 139/71 12/18/22 06:20 58 L 18 12/18/22 06:10 61 21 12/18/22 06:01 139/75 12/18/22 06:01 63 24 12/18/22 06:00 61 18 12/18/22 05:50 59 L 20 12/18/22 05:40 56 L 18 12/18/22 05:30 57 L 18 12/18/22 05:30 98/59 L 12/18/22 05:20 61 18 12/18/22 06:45 36.6 C 56 L 18 139/71 94 12/18/22 05:45 36.6 C 57 L 19 102/62 94 12/18/22 05:15 58 L 19 12/18/22 05:01 102/62 12/18/22 05:01 57 L 19 12/18/22 05:00 56 L 18 12/18/22 04:45 55 L 19 94 12/18/22 04:31 55 L 20 12/18/22 04:31 128/83 12/18/22 04:30 56 L 20 12/18/22 04:15 55 L 18 12/18/22 04:00 55 L 17 12/18/22 04:00 91/46 L 12/18/22 03:45 56 L 19 12/18/22 03:30 56 L 18 12/18/22 03:30 89/55 L 12/18/22 03:15 58 L 19 94 12/18/22 03:00 59 L 19 12/18/22 03:00 98/60 L 12/18/22 02:45 64 20 94 12/18/22 02:30 69 24 96 12/18/22 02:30 137/80 12/18/22 02:15 71 18 96 12/18/22 02:00 69 17 12/18/22 02:00 145/87 H 12/18/22 04:45 36.7 C 55 L 18 128/83 94 12/18/22 04:15 36.4 C L 53 L 17 91/46 L 94 12/18/22 03:45 36.6 C 54 L 18 89/55 L 94 12/18/22 03:15 37 C 60 20 98/60 L 95 12/18/22 02:45 36.6 C 64 19 137/80 95 12/18/22 02:15 36.6 C 73 14 145/87 H 95 O2 Del Method O2 Flow Rate 12/18/22 13:45 Room Air 12/18/22 12:45 Room Air 12/18/22 11:45 Room Air 12/18/22 10:45 Room Air 12/18/22 10:00 Room Air 12/18/22 09:45 Nasal Cannula 4 12/18/22 08:00 12/18/22 08:45 Room Air 12/18/22 07:45 Room Air 12/18/22 07:10 12/18/22 07:00 12/18/22 07:00 12/18/22 06:50 12/18/22 06:40 12/18/22 06:30 12/18/22 06:30 12/18/22 06:20 12/18/22 06:10 12/18/22 06:01 12/18/22 06:01 12/18/22 06:00 12/18/22 05:50 12/18/22 05:40 12/18/22 05:30 12/18/22 05:30 12/18/22 05:20 12/18/22 06:45 Room Air 12/18/22 05:45 Room Air 12/18/22 05:15 12/18/22 05:01 12/18/22 05:01 12/18/22 05:00 12/18/22 04:45 12/18/22 04:31 12/18/22 04:31 12/18/22 04:30 12/18/22 04:15 12/18/22 04:00 12/18/22 04:00 12/18/22 03:45 12/18/22 03:30 12/18/22 03:30 12/18/22 03:15 12/18/22 03:00 12/18/22 03:00 12/18/22 02:45 12/18/22 02:30 12/18/22 02:30 12/18/22 02:15 12/18/22 02:00 12/18/22 02:00 12/18/22 04:45 Room Air 12/18/22 04:15 Room Air 12/18/22 03:45 Room Air 12/18/22 03:15 Room Air 12/18/22 02:45 Room Air 12/18/22 02:15 Room Air Laboratory Results HA1c 6.3 LDL 58 Diagnostic Findings CTA head and neck Right internal carotid artery: No acute findings. Intracranial segment is patent with no significant stenosis. No aneurysm. Right anterior cerebral artery: Unremarkable. No occlusion or significant stenosis. No aneurysm. Right middle cerebral artery: Unremarkable. No occlusion or significant stenosis. No aneurysm. Right posterior cerebral artery: Unremarkable. No stenosis, dissection, or occlusion. There is a suggestion of a 0.5 cm aneurysm involving the distal branches of the SENIOR ENLISTED ADVISOR best appreciated on axial image 31 series 64. Right vertebral artery: Unremarkable as visualized. Left internal carotid artery: No acute findings. Intracranial segment is patent with no significant stenosis. No aneurysm. Left anterior cerebral artery: Unremarkable. No occlusion or significant stenosis. No aneurysm. Left middle cerebral artery: Unremarkable. No occlusion or significant stenosis. No aneurysm. Left posterior cerebral artery: See above. Left vertebral artery: Unremarkable as visualized. Basilar artery: Unremarkable. No occlusion or significant stenosis. No aneurysm. IMPRESSION: 1. Exam limited as described above 2. 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 head: Brain: Mild ischemic microangiopathy. No hemorrhage. Ventricles: Unremarkable. No ventriculomegaly. Bones/joints: Unremarkable. No acute fracture. Soft tissues: Unremarkable. Sinuses: Unremarkable as visualized. No acute sinusitis. Mastoid air cells: Unremarkable as visualized. No mastoid effusion. Nasopharynx: soft tissue mass within the right side of the nasopharynx incompletely evaluated on this exam. IMPRESSION: 1. Soft tissue mass in the right side of the nasopharynx is incompletely evaluated on this exam but may represent underlying mass. Direct visual inspection is recommended for further evaluation 2. Head CT negative for acute intracranial abnormality.
[2022-12-18] MEDS ORDERED: traZODone HCL 50 MG TAB PO SCH (21:00)
[2022-12-18] MEDS ORDERED: VENLAFAXINE HCL XR 150 MG CAPXR PO SCH (21:00)
--- NOTE | 2022-12-18 22:08 | CT Scan Report ---
Exam(s): CT HEAD Without Contrast EXAM: CT Head Without Intravenous Contrast CLINICAL HISTORY: Reason for exam: 24 hr post tnkase. TECHNIQUE: Axial computed tomography images of the head/brain without intravenous contrast. CTDI is 81.95 mGy and DLP is 741.31 mGy-cm. Automated exposure control was utilized for the study. A dose lowering technique was utilized adhering to the principles of ALARA. COMPARISON: No relevant prior studies available. FINDINGS: No acute intracranial hemorrhage. No midline shift or mass effect. The territorial ramirez-white matter differentiation is maintained throughout. Age-related cerebral volume loss. Periventricular and subcortical white matter hypoattenuation, consistent with chronic microangiopathy. The visualized orbits appear grossly unremarkable. The calvarium is intact. The visualized paranasal sinuses and mastoid air cells are grossly clear. IMPRESSION: No acute intracranial hemorrhage, midline shift, or mass effect. Electronically signed by: Sukhdev Callahan MD 12/18/22 22:07 PM
[2022-12-19] MEDS ORDERED: NOREPINEPHRINE/D5W 4 MG/250 ML IV ONE (04:54)
[2022-12-19 05:16] LABS: Basophils # (auto) 0.03 K/uL (0-0.2); Basophils % (auto) 0.6 %; Eosinophils # (auto) 0.08 K/uL (0-0.50); Eosinophils % (auto) 1.6 %; Hematocrit (blood only) 29.4 % (37.0-47.0); Hemoglobin 9.4 g/dl (12.0-16.0); Immature Granulocytes # (auto) 0.01 K/uL (0.01-0.20); Immature Granulocytes % (auto) 0.2 %; Lymphocytes % (auto) 32.5 %; Mean Corpuscular Hemoglobin 30.9 pg (25.0-34.0); Mean Corpuscular Volume 96.7 fL (80.0-100.0); Mean Platelet Volume 10.8 fL (9.4-12.4); Monocytes # (auto) 0.45 K/uL (0.11-0.59); Monocytes % (auto) 9.1 %; Neutrophils # (auto) 2.75 K/uL (1.40-6.50); Platelet Count 137 K/uL (130-400); RDW Coefficient of Variation 14.4 % (11.5-14.5); RDW Standard Deviation 50.8 fL (36.4-46.3); Red Blood Count 3.04 M/uL (4.20-5.40); White Blood Count 4.92 K/ul (4.8-10.8)
[2022-12-19 05:33] LABS: BUN Creatinine Ratio 17.6 (10-20); Creatinine Clr Calc Pharmacy 37.7 ml/min; Est GFR (African American) 58.2 ml/min; Est GFR (Non-African American) 50.2 ml/min; Magnesium 1.8 mg/dl (1.7-2.4); Phosphorus 2.2 mg/dl (2.5-4.9); Potassium 3.9 mmol/L (3.5-5.1)
[2022-12-19] MEDS: PANTOprazole 40 MG TAB PO SCH (05:57)
[2022-12-19] MEDS: NSS + 20MEQ KCL 20 MEQ/1,000 ML BAG IV SCH ×2 (05:58→09:31)
[2022-12-19] MEDS: levETIRAcetam 500 MG TAB PO SCH (08:10)
[2022-12-19] MEDS: METOPROLOL SUCC 25MG EXT REL TAB PO SCH (08:10)
[2022-12-19] MEDS: ATORVASTATIN 20 MG TAB PO SCH (08:10)
[2022-12-19] MEDS: GABAPENTIN 100 MG CAP PO SCH ×2 (08:10→13:20)
[2022-12-19] MEDS: UMECLIDINIUM/VILANTEROL 62.5/25MCG 7 PUFFS/INHALER INH SCH (08:11)
[2022-12-19] MEDS: INSULIN ASPART PER UNIT CHARGE SC SCH ×2 (08:14→12:34)
[2022-12-19] MEDS ORDERED: POTASSIUM PHOS 3 MMOL/1 ML INFUSION IV STA (08:30)
[2022-12-19] MEDS ORDERED: APIXABAN 5 MG TABLET PO SCH (09:00)
[2022-12-19] MEDS ORDERED: CLOPIDOGREL BISULFATE 75 MG TAB PO SCH (09:00)
[2022-12-19] MEDS ORDERED: POTASSIUM PHOSPHATE 9 MMOL in SODIUM CHLORIDE 0.9% 250 ML IV ONE (09:00)
--- NOTE | 2022-12-19 12:58 | Discharge Summary ---
Date of Service December 19, 2022 Admission HPI Per Admitting Provider History obtained from patient and records. Medical history significant for chronic systolic/diastolic heart failure status post ICD (recent EF of 60 to 65%, TTE 2022), CAD status post stent, chronic LBBB, mild aortic regurgitation, AAA, hypertension, hyperlipidemia, COPD, DM2 diet-controlled, HCV status post tx, chronic anemia (baseline hemoglobin of 10), history of DVT supposedly on Eliquis Rx, possible seizure disorder supposedly on Keppra Rx, right nasopharyngeal mass, 6 chronic pain, ongoing tobacco abuse. Recent confinement last September 2022 altered mental status. Patient noted to have myoclonic jerks. Neurology recommended Keppra for possible seizure disorder. Patient also discharged on 3-month course of Eliquis for new onset RLE DVT as per Hematology recommendations. Incidental finding of right nasopharyngeal mass noted on CT head. Outpatient ENT evaluation scheduled for January 2023. Patient stopped taking Keppra and Eliquis medications more than a month ago because she thought she did not need to take the 2 medications because PCP did not refill meds. Few hours ago, patient noted sudden onset left upper extremity weakness and numbness without neck pain or shoulder pain. Headache symptoms. Patient compliant with home aspirin Rx. No previous episodes. Stroke alert called upon arrival at the ER. TNK administered at the ER following [facility] telestroke recommendations. Improving LUE weakness/numbness. 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 Exam Per Admitting Provider GENERAL: Comfortable, pleasant, no respiratory distress SKIN: Pallor, warm HEENT: Pale palpebral conjunctivae, no ptosis, dry buccal mucosa NECK : Supple, no tenderness CHEST : Decreased breath sounds, no tenderness HEART : RRR, no obvious murmurs ABDOMEN: Some distention, nontender EXTREMITIES : Minimal LE swelling, no LE tenderness, no other conspicuous deformities noted NEUROLOGIC : Coherent, no facial asymmetry, slightly hard of hearing, MMTS BUE 4/5, BLE 4/5, gait and stance not assessed Principal Diagnosis Acute ischemic right MCA stroke Acute kidney injury History of seizure disorder History of DVT Incidental finding of right nasopharyngeal mass, patient to follow-up with ENT Discharge Exam GENERAL: Alert and oriented x3. NAD, on RA. HEENT: No pallor, no icterus. Pupils equal, round and reactive to light. Oral mucosa moist. NECK: No JVD, no neck masses. HEART: S1 and S2 heard. Regular rate and rhythm. No murmur, no gallop. RESPIRATORY SYSTEM: Normal AP diameter. No accessory muscle use. No wheezing, no crackles. ABDOMEN: Soft, bowel sounds present, nontender, no distention. CENTRAL NERVOUS SYSTEM: No facial droop. Speech is clear. Obeys simple commands. Moves extremities. 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 Discharge Data Allergies Allergy/AdvReac Type Severity Reaction Status Date / Time NSAIDS (Non-Steroidal AdvReac Severe GI ISSUES Verified 12/17/22 20:25 Anti-Inflamma Zzbhlwa-BCM-IgX Reductase AdvReac Severe LIVER Verified 12/17/22 20:25 Inhibitor FUNCTION [Upkyyfj-Ter-Swh Reductase ELEVATES Inhibitor] isosorbide AdvReac Intermediate VOMIT/HEADA Verified 12/17/22 20:25 CARLOS tramadol AdvReac Intermediate VOMITING Verified 12/17/22 20:25 Consultations 12/17/22 21:25 ED Decision to Admit Stat 12/18/22 00:00 Consult [employer] Routine Consult Neurology Routine 12/19/22 09:59 Consult Otolaryngology (Head and Neck) Routine Ordered Studies 12/17/22 20:06 CT angio head w con Stat CT angio neck with con Stat CT head/brain wo con Stat 12/18/22 06:59 CT head/brain wo con Routine Hospital Course (1) Acute CVA (cerebrovascular accident): Plan 77-year-old lady with PMH of chronic systolic/diastolic heart failure s/p ICD [recent EF of 60 to 65%, TTE 2022], CAD s/p stent, chronic LBBB, mild aortic regurgitation, AAA, HTN, HLD, COPD, DM 2 diet controlled, HCV status post treatment, chronic anemia [baseline hemoglobin of 10], history of DVT supposedly on Eliquis, possible seizure disorder supposedly on Keppra treatment, right nasopharyngeal mass, ongoing tobacco abuse presented to the ED 12/17 with acute onset of left upper extremity weakness and numbness without neck pain or shoulder pain. She was managed for the following: Acute CVA/Acute ischemic right MCA stroke: Patient came in with LUE weakness and numbness, LLE numbness. CT head, CTA head and neck, CXR done at admission, reviewed. MRI could not be done/her pacemaker could not be verified as MRI compatible. Patient is status post TNKase evening of 12/17 at around 8:45 PM. Patient reports resolution of LLE numbness, reports improving LUE symptoms - no numbness/significant improvement w/ weakness. No concerns of hemoptysis, GI bleed, headache. Repeat CT head 12/18 evening reviewed. Neurology evaluated, resumed Eliquis, Plavix added, aspirin discontinued. LDL 58, A1c 6.3. Patient intolerant to statin, continue with current low-dose. Patient to follow-up with neurology in 8 weeks time upon discharge. Acute kidney injury: Creatinine of 1.82 at presentation, status post IV fluid, resolved. History of seizure disorder: Recent confinement in September 2022 with altered mental status when patient was noted to have myoclonic jerk and neurology evaluated, was discharged on Keppra. Patient has not been taking Keppra for about a month prior to arrival. Resume keppra. History of DVT: history of RLE DVT, patient supposedly to complete 3 months Eliquis anticoagulation (last dose 01/05/2023), unable to take Eliquis the last 6 weeks due to PCP office miscommunication Recent history of incidental finding of right nasopharyngeal mass: Again noted in CT head and neck this admission. Follow-up ENT as an outpatient. Appears outpatient ENT evaluation is scheduled for January 2023 per patient. Other chronic medical conditions: c/w or resume home meds as and when able. Systolic/diastolic heart failure s/p ICD (recent EF of 60 to 65%, TTE 2022), patient on the dry side CAD status post stent chronic LBBB mild aortic regurgitation AAA, stable at 3 cm measurement as of 2022 outpatient aortic duplex hypertension hyperlipidemia, on statin Rx COPD, status at baseline DM2 diet-controlled, patient unaware of diagnosis documented in outpatient problem list. Documented inpatient hemoglobin A1c of 7.1 from 2020. A1C 6.3 this admission. HCV status post tx chronic anemia, hemoglobin at baseline chronic pain ongoing tobacco abuse: needs counselling. DVT Px: Eliquis Full Code. Patient being discharged to home with home health with following instruction at the point of discharge: Follow-up with your primary care physician within a week time and likely you will need labs CBC/CMP/magnesium/phosphorus. Neurology evaluated you while in the hospital for your acute stroke, you received IV therapy called Sara. You will continue your Eliquis as prior, your aspirin will be discontinued, you are started on Plavix. Follow-up with neurology in 8 weeks time. Continue with PT and OT upon discharge. For your history of seizure disorder, you were prescribed Keppra in your last admission. Please continue the medication, maintain compliance. For your history of right nasopharyngeal mass, follow-up with ENT doctor as an outpatient. Coordinate with your PCP office for referral. Take your medications as prescribed. Please make sure that you are able to get your medications today by calling your pharmacy before you leave the hospital so that your treatment continuity is not broken. Home Health Attestation I certify that this patient is under my care and that I, or a physicians kennel assistant working with me, had a face to-face encounter that meets the home health [id number] encounter requirements with this patient. The encounter with the patient was in whole, or in part, for the following medical condition, which is the primary reason for home health care (list medical condition): I certify that, based on my findings, the following services are medically necessary home health services: My clinical findings support the need for the above services because: Further, I certify that my clinical findings support that this patient is homebound (i.e. absences from home require considerable and taxing effort and are for medical reasons or faith services or infrequently or of short duration when for other reasons) because: Certification for Home Health Services: Based on the above findings, I certify that this patient is confined to the home and needs intermittent fdc care, physical therapy and/or speech therapy or continues to need occupational therapy. The patient is under my care, and I have initiated the establishment of the plan of care. This patient will be followed by a physician who will periodically review the plan of care. Total Time Total Time Spent Total Time Spent (In Minutes): 45 Discharge Plan Discharge Items Patient Disposition: Home - Home Health Services Reason For Visit: CVA Discharge Diagnosis: Acute ischemic right MCA stroke Acute kidney injury History of seizure disorder History of DVT Incidental finding of right nasopharyngeal mass, patient to follow-up with ENT Activity: Resume your previous activity Non-emergency contact: Primary Care Provider Call non-emergency contact if: you have any medication questions, your symptoms worsen and your temperature is above 101 Follow-up/Referrals: Roman Ennis MD [Primary Care Provider] - (Date & Time 12/26/2022 1:20 PM Provider Pamela Lopez PA-C Department [facility] ) Diet: Regular and Carb Consistent or DM2 Addtl Attending Provider Instructions: Follow-up with your primary care physician within a week time and likely you will need labs CBC/CMP/magnesium/phosphorus. Neurology evaluated you while in the hospital for your acute stroke, you received IV therapy called Sara. You will continue your Eliquis as prior, your aspirin will be discontinued, you are started on Plavix. Follow-up with neurology in 8 weeks time. Continue with PT and OT upon discharge. For your history of seizure disorder, you were prescribed Keppra in your last admission. Please continue the medication, maintain compliance. For your history of right nasopharyngeal mass, follow-up with ENT doctor as an outpatient. Coordinate with your PCP office for referral. Take your medications as prescribed. Please make sure that you are able to get your medications today by calling your pharmacy before you leave the hospital so that your treatment continuity is not broken. Pending Studies at Discharge: Yes Stand-Alone Forms: My [employer], Smoking Cessation Medications and DC Order Prescriptions: New clopidogrel 75 mg Tablet 75 mg PO QAM Qty: 30 0RF Continued clonidine HCl 0.1 mg Tablet 0.05 mg PO DAILY Qty: 0 pantoprazole 40 mg Tablet,Delayed Release (Dr/Ec) 40 mg PO DAILYBB Qty: 30 nitroglycerin 0.4 mg Tablet, Sublingual 0.4 mg sublingual DIRECTED PRN (Reason: Chest Pain) Qty: 0 lisinopril 20 mg Tablet 20 mg PO DAILY Qty: 0 metoprolol succinate 100 mg Tablet Extended Release 24 Hr 100 mg PO DAILY Qty: 0 ondansetron HCl [Zofran] 4 mg Tablet 4 mg PO Q8H PRN (Reason: Nausea) hydroxyzine HCl 25 mg Tablet 25 mg PO TID PRN (Reason: Anxiety) albuterol sulfate 90 mcg/actuation Hfa Aerosol Inhaler 2 puff INHALATION Q4H PRN (Reason: Shortness Of Breath Or Wheezing) Anoro Ellipta 62.5-25 mcg/actuation Blister With Device 1 inh INHALATION DAILY gabapentin 300 mg capsule 300 mg PO TID levetiracetam 500 mg tablet 500 mg PO BID 30 Days Qty: 60 1RF Eliquis 5 mg Tablet 5 mg PO BID Qty: 60 0RF trazodone 50 mg tablet 25 mg PO HS oxycodone 5 mg tablet 5 mg PO Q6H PRN (Reason: Severe Pain (Scale Score 7-10)) furosemide 40 mg tablet 40 mg PO DAILY atorvastatin 40 mg tablet 20 mg PO DAILY Rx Instructions: [place] [facility] [place] "PT TAKING 1/2 TAB DAILY". venlafaxine 150 mg capsule,extended release 24hr 150 mg PO HS potassium chloride 20 mEq tablet,ER particles/crystals 20 meq PO DAILY Discontinued aspirin 81 mg Tablet,Delayed Release (Dr/Ec) 81 mg PO DAILY Qty: 0 Discharge Orders: Discharge Order (Routine); Ordered 12/19/22 Ordered By: Yonny Arnold/Other Patient Handouts: A1C, 5 Steps for Eating Healthier Admission Data Admit Date/Time: 12/17/22 22:22 Attending Provider: Yonny Crawford Admit Provider: Trung Leon Primary Care Provider: Roman Ennis Other Providers: Trung Leon ; Adriano Lin ; Adriano Sweeney ; Silvestre Winter ; Precious Dominguez ; Roman Raya ; Precious Bales ; Charanjit Dhillon ; Janusz Giron ; Hernando Ha ; Vineet Villalpando ; Avelina Munoz ; Gil Pollock ; Rogelio Monteiro ; Yadira Yuen ; Alexi Yao ; Krista Pedraza ; Laurie Herrmann ; Nelly Dobbs ; Sonny Cormier ; Joshua Joyce
== END 2022-12-19 15:40 | disposition home health service (06) | DRG 65 ==
LOC: ED 19:54 → 1E 22:22
DX: F17.210 Nicotine dependence, cigarettes, uncomplicated; I25.10 Atherosclerotic heart disease of native coronary artery without angina pectoris; I25.2 Old myocardial infarction; Z87.891 Personal history of nicotine dependence; J44.9 Chronic obstructive pulmonary disease, unspecified; Z66 Do not resuscitate; I25.5 Ischemic cardiomyopathy; G89.29 Other chronic pain; N18.30 Chronic kidney disease, stage 3 unspecified; I63.511 Cerebral infarction due to unspecified occlusion or stenosis of right middle cerebral artery; Z88.8 Allergy status to other drugs, medicaments and biological substances; I50.42 Chronic combined systolic (congestive) and diastolic (congestive) heart failure; Z95.5 Presence of coronary angioplasty implant and graft; Z88.5 Allergy status to narcotic agent; Z79.82 Long term (current) use of aspirin; R56.9 Unspecified convulsions; M19.90 Unspecified osteoarthritis, unspecified site; Z88.6 Allergy status to analgesic agent; K21.9 Gastro-esophageal reflux disease without esophagitis; Z95.810 Presence of automatic (implantable) cardiac defibrillator; Z79.52 Long term (current) use of systemic steroids; E78.5 Hyperlipidemia, unspecified; I12.9 Hypertensive chronic kidney disease with stage 1 through stage 4 chronic kidney disease, or unspecified chronic kidney disease; Z79.899 Other long term (current) drug therapy

== ENCOUNTER 2022-12-27 19:30 | Inpatient (IN) ==
[2022-12-27] MEDS ORDERED: ALBUT/IPRATROP 3MG/0.5MG NEB 3 ML VIAL NEB STA ×2 (20:11→23:26)
[2022-12-27] MEDS ORDERED: methylPREDNISolone 125 MG/2 ML VIAL IV STA (20:11)
--- NOTE | 2022-12-27 20:33 | Emergency Department Note ---
History of Present Illness General Chief complaint: Abdominal Pain Stated complaint: N/V/D, Abdominal Pain Time Seen by Provider: 12/27/22 19:43 History of Present Illness Provider Complaint: + nausea, + vomiting, + diarrhea and + abdominal pain Onset (ago): day(s) 1 Description of Vomiting: no bilious, no blood-streaked, no bloody or no coffee grounds Description of Diarrhea: no mucousy, no tarry, no blood-streaked or no bloody (bright red) Associated Abdominal Pain: Yes Location of pain: + LLQ Severity: moderate Quality: + stabbing and + sharp Pain Consistency: + intermittent Relieved By: + none Exacerbated By: + none Context: no foreign travel, no recent antibiotic use, no alcohol abuse, no trauma, no anticoagulant use, no NSAID use, no caffeine, no smoking or no marijuana use Associated symptoms: + cough; no myalgias, no chest pain, no fever/chills, no dysuria or no syncope Home Medications Medication Instructions Recorded Confirmed Type clonidine HCl 0.1 mg tablet 0.05 mg PO QAM #0 tabs 03/30/17 12/27/22 History nitroglycerin 0.4 mg sublingual 0.4 mg sublingual DIRECTED PRN 03/30/17 12/27/22 History tablet Chest Pain #0 BTLS pantoprazole 40 mg tablet,delayed 40 mg PO DAILYBB #30 tabs 03/30/17 12/27/22 History release lisinopril 20 mg tablet 20 mg PO DAILY ##0 07/27/17 12/27/22 History metoprolol succinate 100 mg 100 mg PO DAILY #0 tabs 07/27/17 12/27/22 History tablet,extended release 24 hr oxycodone 5 mg tablet 5 mg PO Q6H PRN Severe Pain (Scale 08/16/20 12/27/22 History Score 7-10) trazodone 50 mg tablet 25 mg PO HS 08/16/20 12/27/22 History atorvastatin 40 mg tablet 20 mg PO DAILY 10/05/22 12/27/22 History furosemide 40 mg tablet 40 mg PO QAM 10/05/22 12/27/22 History potassium chloride 20 mEq 20 meq PO DAILY 10/05/22 12/27/22 History tablet,extended release(part/cryst) albuterol sulfate 90 mcg/actuation 2 puff inhalation Q4H PRN 12/17/22 12/27/22 History aerosol inhaler Shortness Of Breath Or Wheezing gabapentin 300 mg capsule 300 mg PO TID 12/17/22 12/27/22 History hydroxyzine HCl 25 mg tablet 25 mg PO TID PRN Anxiety 12/17/22 12/27/22 History ondansetron HCl 4 mg tablet 4 mg PO Q8H PRN Nausea 12/17/22 12/27/22 History umeclidinium 62.5 mcg-vilanterol 1 inh inhalation DAILY 12/17/22 12/27/22 History 25 mcg/actuation powdr for inhalation (Anoro Ellipta) apixaban 5 mg tablet (Eliquis) 5 mg PO BID #60 tabs 12/19/22 12/27/22 Rx clopidogrel 75 mg tablet 75 mg PO QAM #30 tabs 12/19/22 12/27/22 Rx levetiracetam 500 mg tablet 500 mg PO BID 30 days #60 tabs 12/19/22 12/27/22 Rx venlafaxine 75 mg capsule,extended 225 mg PO QAM 12/27/22 12/27/22 History release 24 hr Allergies Allergy/AdvReac Type Severity Reaction Status Date / Time NSAIDS (Non-Steroidal AdvReac Severe GI ISSUES Verified 12/17/22 20:25 Anti-Inflamma [id number] Reductase AdvReac Severe LIVER Verified 12/17/22 20:25 Inhibitor FUNCTION [[id number]-[id number]-Ucs Reductase ELEVATES Inhibitor] isosorbide AdvReac Intermediate VOMIT/HEADA Verified 12/17/22 20:25 CARLOS tramadol AdvReac Intermediate VOMITING Verified 12/17/22 20:25 Past Med/Surg History Medical History Acute anterior wall [place] Anxiety CAD (coronary artery disease) "[place] 2006. S/P PCI/Stent RCA" Chronic hepatitis C without hepatic coma Chronic pain CKD (chronic kidney disease), stage III COPD, group C, by GOLD 2017 classification Elevated troponin GERD (gastroesophageal reflux disease) H/O cardiac pacemaker HTN (hypertension) Hyperlipidemia Hypoxia Ischemic cardiomyopathy LBBB (left bundle branch block) Migraine OA (osteoarthritis) Respiratory acidosis Surgical History H/O release of tendon H/O: hysterectomy History of carpal tunnel surgery History of implantable cardioverter-defibrillator (ICD) placement Hx of cataract surgery S/P cardiac cath S/P cholecystectomy Family History Father , age 81 of lung cancer Prostate cancer Heart disease Thyroid disorder Lung cancer Mother , age 80 with COPD Cancer Cervical Coronary heart disease s/p CABG Diabetes COPD (chronic obstructive pulmonary disease) Social History Smoking Status: Current every day smoker Tobacco Type: Cigarettes Age Started Using Tobacco: 23; packs per day: 0.5; Cigarettes Per Day: 8-10; Second Hand Exposure: No; Do You Dip or Chew Tobacco: No; Hx Alcohol Use: No Hx Substance Use: No Preferred Language: Yi Communication Ability: Effective Diamond Expert Required: No Beliefs That Will Affect Care: None Current Living Situation: Alone current occupational status: retired 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 [employer] Feels Safe at Home: Yes Assistive Devices: None Physical Exam Vital Signs: Vital Signs - 24 hr 12/27/22 19:44 12/27/22 19:59 12/27/22 20:17 Temperature 36.8 C Temperature Source Oral Pulse Rate 64 63 67 Pulse Rate [Right Finger] Pulse Rhythm [Righ t Finger] Pulse Strength [Ri ght Finger] Respiratory Rate 22 22 Respiratory Effort / Characteristics Respiratory Depth Blood Pressure 113/67 Blood Pressure [Ri ght Arm] Blood Pressure Sidra n 82 Blood Pressure Sidra n [Right Arm] Blood Pressure Pos ition Lying Blood Pressure Pos ition [Right Arm] Pulse Oximetry 98 99 Oxygen Delivery Me thod Room Air Nasal Cannula Oxygen Flow Rate 2 Sepsis Recent Feve r Within 48 Hours No Sepsis New/Unexpla ined Change in Men anjum Status No Sepsis Action Take n by Nursing No Action Required Oxygen Flow Rate - Titration Pulse Oximetry Pos t Tiitration 12/27/22 20:17 12/27/22 20:56 12/27/22 21:17 Temperature 36.8 C Temperature Source Oral Pulse Rate Pulse Rate [Right Finger] 68 Pulse Rhythm [Righ t Finger] Regular Pulse Strength [Ri ght Finger] Normal Respiratory Rate 22 Respiratory Effort / Characteristics Respiratory Depth Blood Pressure Blood Pressure [Ri ght Arm] 113/67 Blood Pressure Sidra n Blood Pressure Sidra n [Right Arm] 82 Blood Pressure Pos ition Blood Pressure Pos ition [Right Arm] Semi-fowlers Pulse Oximetry 88 L 89 L 92 Oxygen Delivery Me thod Room Air Nasal Can nula Nasal Cannula Nasal Cannula Oxygen Flow Rate 2 2 Sepsis Recent Feve r Within 48 Hours Sepsis New/Unexpla ined Change in Men anjum Status Sepsis Action Take n by Nursing Oxygen Flow Rate - Titration 2 4 Pulse Oximetry Pos t Tiitration 92 92 12/27/22 23:03 12/27/22 23:57 Temperature Temperature Source Pulse Rate 64 Pulse Rate [Right Finger] 66 Pulse Rhythm [Righ t Finger] Regular Pulse Strength [Ri ght Finger] Normal Respiratory Rate 20 Respiratory Effort / Characteristics Non-Labored Sponta neous Respiratory Depth Normal Blood Pressure Blood Pressure [Ri ght Arm] 130/73 Blood Pressure Sidra n Blood Pressure Sidra n [Right Arm] 92 Blood Pressure Pos ition Blood Pressure Pos ition [Right Arm] Pulse Oximetry 94 Oxygen Delivery Me thod Nasal Cannula Oxygen Flow Rate 4 Sepsis Recent Feve r Within 48 Hours Sepsis New/Unexpla ined Change in Men anjum Status Sepsis Action Take n by Nursing Oxygen Flow Rate - Titration Pulse Oximetry Pos t Tiitration Physical Exam: Physical Exam GENERAL: She is oriented to person, place, and time. She appears well-developed and well-nourished. She does not appear distressed. HENT: Exam performed. -Head: Normocephalic and atraumatic. -Right Ear: External ear normal. No mastoid erythema -Left Ear: External ear normal. No mastoid erythema -Mouth/Throat: The oropharynx is clear and moist. No trismus in the jaw. No dental abscesses or uvula swelling. No oropharyngeal exudate or tonsillar abscesses. EYES: Conjunctivae and EOM are normal.Right eye exhibits no discharge. Left eye exhibits no discharge. No scleral icterus. NECK: Normal range of motion. Neck supple. No JVD present. No tracheal deviation and normal range of motion present. CV: Normal rate, regular rhythm, normal heart sounds and intact distal pulses. There is no peripheral edema. Palpable radial pulses bue. PULM/CHEST: Effort normal and breath sounds normal. Wheezing bilaterally. -Chest Wall: She exhibits no tenderness. ABD: The abdomen is soft. Bowel sounds are normal. She has no distension. No mass is present. There is tenderness to palpation of the left lower quadrant. There is no rebound, no guarding, no Estrada's sign and no tenderness at M cBurney's point. Rovsig negative MUSC/SKEL: Normal range of motion. There is no peripheral edema, tenderness or deformity. PSYCH: She has a normal mood and affect. Behavior is normal. Judgment and tho ught content normal. Course Course 1942: The patient was evaluated in room C6. A complete history and physical exam was performed Cardiac monitoring: An order was placed for continuous cardiac monitoring. The monitor shows a rate of 70 with sinus rhythm interpreted by me Patient found to be hypoxic on room air. Supplemental oxygen was applied via nasal cannula. DuoNeb treatment and steroids ordered for the patient. Patient does not usually use oxygen. 2330: Vital signs stable supplemental oxygen via nasal cannula. Labs within normal limits. Venous pH 7.26 venous PCO2 52. Normal leukocytosis. High-sensitivity troponin negative. Patient still wheezing. Patient was given additional DuoNebs. [facility] hypoxia. Dr. Rosenberg notified. Administered Medications Discontinued Medications Albuterol (Albut/Ipratrop 3mg/0.5mg Neb 3 Ml Vial) 3 ml NEB NOW STA; Protocol Stop: 12/27/22 20:12 Last Admin: 12/27/22 20:27 Dose: 3 ml Documented By: CHARITY Albuterol (Albut/Ipratrop 3mg/0.5mg Neb 3 Ml Vial) 3 ml NEB NOW STA; Protocol Stop: 12/27/22 23:27 Last Admin: 12/27/22 23:34 Dose: 3 ml Documented By: PATTI Ioversol (Optiray 350 500ml) 90 ml IV ONCE ONE Stop: 12/27/22 21:28 Last Admin: 12/27/22 21:27 Dose: 90 ml Documented By: DANITA Methylprednisolone (Methylprednisolone 125 Mg/2 Ml Vial) 125 mg IV NOW STA Stop: 12/27/22 20:12 Last Admin: 12/27/22 20:26 Dose: 125 mg Documented By: CHARITY Morphine Sulfate (Morphine Sulfate 2 Mg/Ml Carp) 2 mg IV NOW STA Stop: 12/27/22 22:07 Last Admin: 12/27/22 22:44 Dose: Not Given Documented By: QGV Medical Decision Making Laboratory Data Attestation: I reviewed the patient's lab results. 12/27/22 20:15 Lab Results 12/27/22 12/27/22 12/27/22 Range/Units 20:15 20:15 20:22 WBC 8.13 (4.8-10.8) K/ul RBC 3.09 L (4.20-5.40) M/uL Hgb 9.5 L (12.0-16.0) g/dl POC Hgb 10.2 L (12.0-16.0) g/dl Hct 29.9 L (37.0-47.0) % POC Hct 30 L (37-47) % MCV 96.8 (80.0-100.0) fL MCH 30.7 (25.0-34.0) pg MCHC 31.8 L (32.0-36.0) g/dL RDW Std Deviation 51.8 H (36.4-46.3) fL RDW Coeff of Julia 15.0 H (11.5-14.5) % Plt Count 258 (130-400) K/uL MPV 10.6 (9.4-12.4) fL Immature Gran % (Auto) 0.4 % Neut % (Auto) 70.6 % Lymph % (Auto) 19.4 % [place] % (Auto) 8.2 % Eos % (Auto) 1.2 % Baso % (Auto) 0.2 % Neut # (Auto) 5.73 (1.40-6.50) K/uL Lymph # (Auto) 1.58 (1.2-3.4) K/uL [place] # (Auto) 0.67 H (0.11-0.59) K/uL Eos # (Auto) 0.10 (0-0.50) K/uL Baso # (Auto) 0.02 (0-0.2) K/uL Immature Gran # (Auto) 0.03 (0.01-0.20) K/uL VBG pH (7.36-7.41) VBG pCO2 (38-50) mmHg VBG pO2 mmHg VBG HCO3 mmol/L VBG O2 Saturation % VBG Base Excess mEq/L POC Sodium 144 (135-144) mmol/L Sodium 142 (136-145) mmol/L POC Potassium 3.8 (3.3-5.0) mmol/L Potassium 3.8 (3.5-5.1) mmol/L POC Chloride 109 (101-112) mmol/L Chloride 112 H (98-107) mmol/L Carbon Dioxide 24 (21-32) mmol/L POC Total CO2 24 (24-31) mmol/L Anion Gap 6 (3-11) POC Anion Gap 16.0 (16-25) mmol/L POC BUN 33 H (7-18) mg/dl BUN 35 H (6-23) mg/dl Creatinine 1.20 (0.6-1.2) mg/dl POC Creatinine 1.3 (0.6-1.3) mg/dl Est Cr Clr Drug Dosing 30.6 ml/min Est GFR ( Amer) 51.2 ml/min Est GFR (Non-Af Amer) 44.2 ml/min BUN/Creatinine Ratio 29.2 H (10-20) Glucose 100 H (70-99(Fasting)) mg/dl POC Glucose (other) 101 H (70-99) mg/dl Calcium 8.4 L (8.6-10.3) mg/dl POC Ioniz Calcium Delvin 1.18 (1.12-1.32) mmol/l Total Bilirubin 0.2 (0.2-1.0) mg/dl Direct Bilirubin 0.0 (0-0.2) mg/dl AST 17 (13-39) U/L ALT 12 (7-52) U/L Alkaline Phosphatase 43 (34-104) U/L Troponin I High Sens 8.5 (0-14) pg/ml Total Protein 6.6 (6.0-8.3) gm/dl Albumin 3.9 (3.4-5.0) gm/dl Globulin 2.7 (2.5-4.0) gm/dl Albumin/Globulin Ratio 1.4 (0.9-2) Lipase 76 (11-82) U/L SARS-CoV-2, RNA, NAAT (NEGATIVE) 12/27/22 12/27/22 Range/Units 20:36 Unknown WBC (4.8-10.8) K/ul RBC (4.20-5.40) M/uL Hgb (12.0-16.0) g/dl POC Hgb (12.0-16.0) g/dl Hct (37.0-47.0) % POC Hct (37-47) % MCV (80.0-100.0) fL MCH (25.0-34.0) pg MCHC (32.0-36.0) g/dL RDW Std Deviation (36.4-46.3) fL RDW Coeff of Julia (11.5-14.5) % Plt Count (130-400) K/uL MPV (9.4-12.4) fL Immature Gran % (Auto) % Neut % (Auto) % Lymph % (Auto) % [place] % (Auto) % Eos % (Auto) % Baso % (Auto) % Neut # (Auto) (1.40-6.50) K/uL Lymph # (Auto) (1.2-3.4) K/uL [place] # (Auto) (0.11-0.59) K/uL Eos # (Auto) (0-0.50) K/uL Baso # (Auto) (0-0.2) K/uL Immature Gran # (Auto) (0.01-0.20) K/uL VBG pH 7.26 L (7.36-7.41) VBG pCO2 52 H (38-50) mmHg VBG pO2 24 mmHg VBG HCO3 23 mmol/L VBG O2 Saturation < 60.0 % VBG Base Excess -4.3 mEq/L POC Sodium (135-144) mmol/L Sodium (136-145) mmol/L POC Potassium (3.3-5.0) mmol/L Potassium (3.5-5.1) mmol/L POC Chloride (101-112) mmol/L Chloride (98-107) mmol/L Carbon Dioxide (21-32) mmol/L POC Total CO2 (24-31) mmol/L Anion Gap (3-11) POC Anion Gap (16-25) mmol/L POC BUN (7-18) mg/dl BUN (6-23) mg/dl Creatinine (0.6-1.2) mg/dl POC Creatinine (0.6-1.3) mg/dl Est Cr Clr Drug Dosing ml/min Est GFR ( Amer) ml/min Est GFR (Non-Af Amer) ml/min BUN/Creatinine Ratio (10-20) Glucose (70-99(Fasting)) mg/dl POC Glucose (other) (70-99) mg/dl Calcium (8.6-10.3) mg/dl POC Ioniz Calcium Delvin (1.12-1.32) mmol/l Total Bilirubin (0.2-1.0) mg/dl Direct Bilirubin (0-0.2) mg/dl AST (13-39) U/L ALT (7-52) U/L Alkaline Phosphatase (34-104) U/L Troponin I High Sens (0-14) pg/ml Total Protein (6.0-8.3) gm/dl Albumin (3.4-5.0) gm/dl Globulin (2.5-4.0) gm/dl Albumin/Globulin Ratio (0.9-2) Lipase (11-82) U/L SARS-CoV-2, RNA, NAAT NEGATIVE (NEGATIVE) Imaging Data Attestation: I personally reviewed and interpreted this imaging study as follows: My Impression: Chest x-ray negative. Airway clear. No pneumothorax. No consolidation. No cardiomegaly or cephalization.. No free air under the diaphragm. No fractures of the skeletal structures. Radiologist's Impression: Abdomen/Pelvis CT 12/27/22 20:03 Exam(s): CT ABDOMEN + PELVIS With Contrast IV Amt: 90 ml optiray 350 EXAM: CT Abdomen and Pelvis With Intravenous Contrast CLINICAL HISTORY: Reason for exam: llq pain. TECHNIQUE: Axial computed tomography images of the abdomen and pelvis with intravenous contrast. CTDI is 15.35 mGy and DLP is 649.02 mGy-cm. Automated exposure control was utilized for the study. A dose lowering technique was utilized adhering to the principles of ALARA. CONTRAST: Patient received 90 ml optiray 350 of IV contrast COMPARISON: August 16, 2020 FINDINGS: Lung bases: Unremarkable. No mass. No consolidation. ABDOMEN: Liver: Unremarkable. No mass. Gallbladder and bile ducts: Previous cholecystectomy. There is diffuse biliary duct dilation with the common bile duct measuring 1.2 cm. This is similar to previous. No choledocholithiasis is seen. Pancreas: Unremarkable. No mass. No ductal dilation. Spleen: Unremarkable. No splenomegaly. Adrenals: Unremarkable. No mass. Kidneys and ureters: Nonobstructive 7 mm calyceal calculus in the lower pole the right kidney. No hydronephrosis or ureterolithiasis is seen. Stomach and bowel: Bowel loops are nondilated. The colon is contracted which gives the appearance of mild wall thickening. No definite surrounding inflammation is seen but mild colitis is suspected. PELVIS: Appendix: No findings to suggest acute appendicitis. Bladder: Unremarkable. No mass. Reproductive: Unremarkable as visualized. ABDOMEN and PELVIS: Intraperitoneal space: The uterus has been removed. No free fluid is seen in the pelvis. No free air. Bones/joints: Mild degenerative changes throughout the spine. No acute fracture or subluxation is seen. Soft tissues: Unremarkable. Vasculature: There is a 3.4 cm infrarenal abdominal aortic aneurysm without evidence of rupture. Lymph nodes: Unremarkable. No enlarged lymph nodes. IMPRESSION: 1. Bowel loops are nondilated. The colon is contracted which gives the appearance of mild wall thickening. No definite surrounding inflammation is seen but mild colitis is suspected. 2. Previous cholecystectomy. There is diffuse biliary duct dilation with the common bile duct measuring 1.2 cm. This is similar to previous. No choledocholithiasis is seen. Electronically signed by: Herbert Oakley MD 12/27/22 22:59 PM ECG Data Attestation: I personally reviewed and interpreted this ECG as follows: Additional Comments: Paced rhythm with a rate of 65. WA 142 QRS 126 QTc 497. No ectopy. [facility] Narrative 194: The patient was evaluated in room C6. A complete history and physical exam was performed Cardiac monitoring: An order was placed for continuous cardiac monitoring. The monitor shows a rate of 70 with sinus rhythm interpreted by me Patient found to be hypoxic on room air. Supplemental oxygen was applied via nasal cannula. DuoNeb treatment and steroids ordered for the patient. Patient does not usually use oxygen. 2330: Vital signs stable supplemental oxygen via nasal cannula. Labs within normal limits. Venous pH 7.26 venous PCO2 52. Normal leukocytosis. High- sensitivity troponin negative. Patient still wheezing. Patient was given additional DuoNebs. [facility] hypoxia. Dr. Rosenberg notified. Impression & Plan Hypoxia, COPD exacerbation, Colitis Discharge Plan Visit Data Chief Complaint: Abdominal Pain Stated Complaint: N/V/D, Abdominal Pain ED Provider: Ran Jorgensen Discharge Problem: Hypoxia, COPD exacerbation, Colitis Patient Disposition: Admitted As Inpatient Forms Stand Alone Forms: My [facility] Prescriptions Prescriptions: No Action clonidine HCl 0.1 mg Tablet 0.05 mg PO QAM Qty: 0 pantoprazole 40 mg Tablet,Delayed Release (Dr/Ec) 40 mg PO DAILYBB Qty: 30 nitroglycerin 0.4 mg Tablet, Sublingual 0.4 mg sublingual DIRECTED PRN (Reason: Chest Pain) Qty: 0 lisinopril 20 mg Tablet 20 mg PO DAILY Qty: 0 metoprolol succinate 100 mg Tablet Extended Release 24 Hr 100 mg PO DAILY Qty: 0 ondansetron HCl 4 mg Tablet 4 mg PO Q8H PRN (Reason: Nausea) hydroxyzine HCl 25 mg Tablet 25 mg PO TID PRN (Reason: Anxiety) albuterol sulfate 90 mcg/actuation Hfa Aerosol Inhaler 2 puff INHALATION Q4H PRN (Reason: Shortness Of Breath Or Wheezing) Anoro Ellipta 62.5-25 mcg/actuation Blister With Device 1 inh INHALATION DAILY gabapentin 300 mg capsule 300 mg PO TID clopidogrel 75 mg Tablet 75 mg PO QAM Qty: 30 0RF levetiracetam 500 mg tablet 500 mg PO BID 30 Days Qty: 60 1RF Eliquis 5 mg Tablet 5 mg PO BID Qty: 60 0RF trazodone 50 mg tablet 25 mg PO HS oxycodone 5 mg tablet 5 mg PO Q6H PRN (Reason: Severe Pain (Scale Score 7-10)) furosemide 40 mg tablet 40 mg PO QAM atorvastatin 40 mg tablet 20 mg PO DAILY Rx Instructions: PER [facility] MED LIST "PT TAKING 1/2 TAB DAILY". potassium chloride 20 mEq tablet,ER particles/crystals 20 meq PO DAILY venlafaxine 75 mg capsule,extended release 24hr 225 mg PO QAM Referrals Referrals: Roman Ennis MD [Primary Care Provider] -
[2022-12-27 20:35] LABS: iSTAT Creatinine 1.3 mg/dl (0.6-1.3); iSTAT Hemoglobin 10.2 g/dl (12.0-16.0); iSTAT Ionized Calcium 1.18 mmol/l (1.12-1.32); iSTAT Potassium 3.8 mmol/L (3.3-5.0)
[2022-12-27 20:49] LABS: Albumin Globulin Ratio 1.4 (0.9-2); Albumin Level 3.9 gm/dl (3.4-5.0); BUN Creatinine Ratio 29.2 (10-20); Bilirubin,Total 0.2 mg/dl (0.2-1.0); Calcium 8.4 mg/dl (8.6-10.3); Creatinine Clr Calc Pharmacy 30.6 ml/min; Est GFR (African American) 51.2 ml/min; Est GFR (Non-African American) 44.2 ml/min; Globulin 2.7 gm/dl (2.5-4.0); Potassium 3.8 mmol/L (3.5-5.1); Total Protein 6.6 gm/dl (6.0-8.3)
[2022-12-27 20:52] LABS: Base Excess VBG -4.3 mEq/L; HCO3 VBG 23 mmol/L; Oxygen Saturation VBG < 60.0 %; PCO2 VBG 52 mmHg (38-50); PO2 VBG 24 mmHg; pH VBG 7.26 (7.36-7.41)
[2022-12-27 20:54] LABS: Troponin I High Sensitivity 8.5 pg/ml (0-14)
[2022-12-27] MEDS ORDERED: OPTIRAY 350 500ml IV ONE (21:27)
[2022-12-27] MEDS ORDERED: MoRPHine SULFATE 2 MG/ML CARP IV STA (22:06)
--- NOTE | 2022-12-27 23:00 | CT Scan Report ---
Exam(s): CT ABDOMEN + PELVIS With Contrast IV Amt: 90 ml optiray 350 EXAM: CT Abdomen and Pelvis With Intravenous Contrast CLINICAL HISTORY: Reason for exam: llq pain. TECHNIQUE: Axial computed tomography images of the abdomen and pelvis with intravenous contrast. CTDI is 15.35 mGy and DLP is 649.02 mGy-cm. Automated exposure control was utilized for the study. A dose lowering technique was utilized adhering to the principles of ALARA. CONTRAST: Patient received 90 ml optiray 350 of IV contrast COMPARISON: August 16, 2020 FINDINGS: Lung bases: Unremarkable. No mass. No consolidation. ABDOMEN: Liver: Unremarkable. No mass. Gallbladder and bile ducts: Previous cholecystectomy. There is diffuse biliary duct dilation with the common bile duct measuring 1.2 cm. This is similar to previous. No choledocholithiasis is seen. Pancreas: Unremarkable. No mass. No ductal dilation. Spleen: Unremarkable. No splenomegaly. Adrenals: Unremarkable. No mass. Kidneys and ureters: Nonobstructive 7 mm calyceal calculus in the lower pole the right kidney. No hydronephrosis or ureterolithiasis is seen. Stomach and bowel: Bowel loops are nondilated. The colon is contracted which gives the appearance of mild wall thickening. No definite surrounding inflammation is seen but mild colitis is suspected. PELVIS: Appendix: No findings to suggest acute appendicitis. Bladder: Unremarkable. No mass. Reproductive: Unremarkable as visualized. ABDOMEN and PELVIS: Intraperitoneal space: The uterus has been removed. No free fluid is seen in the pelvis. No free air. Bones/joints: Mild degenerative changes throughout the spine. No acute fracture or subluxation is seen. Soft tissues: Unremarkable. Vasculature: There is a 3.4 cm infrarenal abdominal aortic aneurysm without evidence of rupture. Lymph nodes: Unremarkable. No enlarged lymph nodes. IMPRESSION: 1. Bowel loops are nondilated. The colon is contracted which gives the appearance of mild wall thickening. No definite surrounding inflammation is seen but mild colitis is suspected. 2. Previous cholecystectomy. There is diffuse biliary duct dilation with the common bile duct measuring 1.2 cm. This is similar to previous. No choledocholithiasis is seen. Electronically signed by: Herbert Oakley MD 12/27/22 22:59 PM
[2022-12-27 23:12] LABS: Basophils # (auto) 0.02 K/uL (0-0.2); Basophils % (auto) 0.2 %; Eosinophils % (auto) 1.2 %; Hematocrit (blood only) 29.9 % (37.0-47.0); Hemoglobin 9.5 g/dl (12.0-16.0); Immature Granulocytes # (auto) 0.03 K/uL (0.01-0.20); Immature Granulocytes % (auto) 0.4 %; Lymphocytes # (auto) 1.58 K/uL (1.2-3.4); Lymphocytes % (auto) 19.4 %; Mean Corpuscular Hemoglobin 30.7 pg (25.0-34.0); Mean Corpuscular Hgb Conc 31.8 g/dL (32.0-36.0); Mean Corpuscular Volume 96.8 fL (80.0-100.0); Mean Platelet Volume 10.6 fL (9.4-12.4); Monocytes # (auto) 0.67 K/uL (0.11-0.59); Monocytes % (auto) 8.2 %; Neutrophils # (auto) 5.73 K/uL (1.40-6.50); Neutrophils % (auto) 70.6 %; Platelet Count 258 K/uL (130-400); RDW Standard Deviation 51.8 fL (36.4-46.3); Red Blood Count 3.09 M/uL (4.20-5.40); White Blood Count 8.13 K/ul (4.8-10.8)
--- NOTE | 2022-12-28 01:48 | History & Physical Report ---
Date of Service December 28, 2022 Assessment & Plan (1) COPD exacerbation: Plan: 76-year-old female with past med significant for chronic systolic/diastolic heart failure status post ICD EF of 60 to 65%, echo in November 2022, CAD status post stent, chronic LBBB, mild aortic regurgitation, AAA, hypertension, hyperlipidemia, COPD, DM2 diet-controlled, HCV status post tx, chronic anemia (baseline hemoglobin of 10), history of DVT on Eliquis , possible seizure disorder on Keppra Rx, right nasopharyngeal mass, chronic pain, ongoing tobacco abuse presents with cough with whitish phlegm and shortness of breath since last couple of days and also since yesterday has severe abdominal pain with nausea and vomiting and had 4 episodes of diarrhea yesterday. COPD exacerbation Says smoking 3 to 4 cigarettes daily IV Solu-Medrol, DuoNebs [id number] and as needed, doxycycline Monitor the response Abdominal pain nausea vomiting and diarrhea Seems currently diarrhea improved CT scan showing mild colitis We will follow stool for C. difficile N.p.o. for now and IV fluids Consult GI in a.m. Chronic acute systolic and diastolic CHF S/p ICD Echo in November 2022 shows EF of 60 to 65% Mild aortic, mitral, tricuspid regurgitation On Lasix and potassium supplements which we will continued Getting fluids we will monitor for volume overload CAD s/p stent On statin and Plavix and beta-ann-marie Possible seizures On Keppra Right lower extremity DVT diagnosed in September 2022 On Eliquis Recent CVA and status posttreatment with tPA On Plavix statin and Eliquis Hypertension On metoprolol succinate, lisinopril, clonidine and and diuretics will monitor Hyperlipidemia Statin Diabetes diet controlled We will follow HbA1c levels History of HCV s/p treatment Chronic anemia Baseline hemoglobin around 10 Hemoglobin 9.5 today We will follow labs Right nasopharyngeal mass Recently found on CT of the head Seems has appointment with ENT in January CKD stage III Presented with creatinine 1.2 We will follow labs DVT prophylaxis on Eliquis Disposition med/telemetry Full code History of Present Illness Chief Complaint: COPD exacerbation and abdominal pain Primary Care Provider: Roman Ennis MD 76-year-old female with past med significant for chronic systolic/diastolic heart failure status post ICD EF of 60 to 65%, echo in2022, CAD status post stent, chronic LBBB, mild aortic regurgitation, AAA, hypertension, hyperlipidemia, COPD, DM2 diet-controlled, HCV status post tx, chronic anemia (baseline hemoglobin of 10), history of DVT on Eliquis , possible seizure disorder on Keppra Rx, right nasopharyngeal mass, chronic pain, ongoing tobacco abuse presents with cough with whitish phlegm and shortness of breath since last couple of days and also since yesterday has severe abdominal pain associated with nausea and vomiting and had 4 episodes of diarrhea yesterday. Denies any blood in the stools or black stools. Currently sleepy but arousable and answers appropriately. Denies any chest pain. No fevers. No headaches. No earache or runny nose or sore throat. Normal micturition. Currently hemodynamically stable. Patient was admitted September 2022 with altered mental status and myoclonic jerks neurology recommended Keppra for possible seizure disorder at that time she was also found to have new onset right lower extremity DVT and discharged on 3-month course of Eliquis per heme-onc recommendations. There is incidental finding of right nasopharyngeal mass noted on CT head and outpatient ENT evaluation seems has appointment in January 2023. But she stopped taking Keppra and Eliquis a month prior to admission in end of November when she was admitted for acute CVA with left upper extremity weakness and LLE numbness and s/p tPA. At the time aspirin was stopped and Plavix were started and Eliquis was resumed. Supposed to follow with neurology in 8 weeks Allergies Allergy/AdvReac Type Severity Reaction Status Date / Time NSAIDS (Non-Steroidal AdvReac Severe GI ISSUES Verified 12/17/22 20:25 Anti-Inflamma [id number]-[id number]-[id number] Reductase AdvReac Severe LIVER Verified 12/17/22 20:25 Inhibitor FUNCTION [Gpcbpdx-Psm-Dwt Reductase ELEVATES Inhibitor] isosorbide AdvReac Intermediate VOMIT/HEADA Verified 12/17/22 20:25 CARLOS tramadol AdvReac Intermediate VOMITING Verified 12/17/22 20:25 Home Medications Medication Instructions Recorded Confirmed Type clonidine HCl 0.1 mg tablet 0.05 mg PO QAM #0 tabs 03/30/17 12/27/22 History nitroglycerin 0.4 mg sublingual 0.4 mg sublingual DIRECTED PRN 03/30/17 12/27/22 History tablet Chest Pain #0 BTLS pantoprazole 40 mg tablet,delayed 40 mg PO DAILYBB #30 tabs 03/30/17 12/27/22 History release lisinopril 20 mg tablet 20 mg PO DAILY ##0 07/27/17 12/27/22 History metoprolol succinate 100 mg 100 mg PO DAILY #0 tabs 07/27/17 12/27/22 History tablet,extended release 24 hr oxycodone 5 mg tablet 5 mg PO Q6H PRN Severe Pain (Scale 08/16/20 12/27/22 History Score 7-10) trazodone 50 mg tablet 25 mg PO HS 08/16/20 12/27/22 History atorvastatin 40 mg tablet 20 mg PO DAILY 10/05/22 12/27/22 History furosemide 40 mg tablet 40 mg PO QAM 10/05/22 12/27/22 History potassium chloride 20 mEq 20 meq PO DAILY 10/05/22 12/27/22 History tablet,extended release(part/cryst) albuterol sulfate 90 mcg/actuation 2 puff inhalation Q4H PRN 12/17/22 12/27/22 History aerosol inhaler Shortness Of Breath Or Wheezing gabapentin 300 mg capsule 300 mg PO TID 12/17/22 12/27/22 History hydroxyzine HCl 25 mg tablet 25 mg PO TID PRN Anxiety 12/17/22 12/27/22 History ondansetron HCl 4 mg tablet 4 mg PO Q8H PRN Nausea 12/17/22 12/27/22 History umeclidinium 62.5 mcg-vilanterol 1 inh inhalation DAILY 12/17/22 12/27/22 History 25 mcg/actuation powdr for inhalation (Anoro Ellipta) apixaban 5 mg tablet (Eliquis) 5 mg PO BID #60 tabs 12/19/22 12/27/22 Rx clopidogrel 75 mg tablet 75 mg PO QAM #30 tabs 12/19/22 12/27/22 Rx levetiracetam 500 mg tablet 500 mg PO BID 30 days #60 tabs 12/19/22 12/27/22 Rx venlafaxine 75 mg capsule,extended 225 mg PO QAM 12/27/22 12/27/22 History release 24 hr Past Med/Surg History Medical History Acute anterior wall AK Anxiety CAD (coronary artery disease) "AK 2006. S/P PCI/Stent RCA" Chronic hepatitis C without hepatic coma Chronic pain CKD (chronic kidney disease), stage III COPD, group C, by GOLD 2017 classification Elevated troponin GERD (gastroesophageal reflux disease) H/O cardiac pacemaker HTN (hypertension) Hyperlipidemia Hypoxia Ischemic cardiomyopathy LBBB (left bundle branch block) Migraine OA (osteoarthritis) Respiratory acidosis Surgical History H/O release of tendon H/O: hysterectomy History of carpal tunnel surgery History of implantable cardioverter-defibrillator (ICD) placement Hx of cataract surgery S/P cardiac cath S/P cholecystectomy Family History Father , age 81 of lung cancer Prostate cancer Heart disease Thyroid disorder Lung cancer Mother , age 80 with COPD Cancer Cervical Coronary heart disease s/p CABG Diabetes COPD (chronic obstructive pulmonary disease) Social History Smoking Status: Current every day smoker Tobacco Type: Cigarettes Age Started Using Tobacco: 23; packs per day: 0.5; Cigarettes Per Day: 4; Second Hand Exposure: No; Do You Dip or Chew Tobacco: No; Tobacco Cessation Education Requested by Patient: No Hx Alcohol Use: No Hx Substance Use: No Preferred Language: Montserratian Communication Ability: Effective Director Supply Chain Required: No Beliefs That Will Affect Care: None Current Living Situation: Alone current occupational status: retired 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 Extremities- no pretibial edema, no erythema seen Neuro- alert, oriented EOMI; no facial palsy; no dysarthria; obeys commands, moves extremities. Results & Data Results & Data Vital Signs (Past 12 Hours) Vital Signs Temp Pulse Pulse Resp BP BP Pulse Ox 12/27/22 23:57 64 12/27/22 23:03 66 20 130/73 94 12/27/22 21:17 36.8 C 68 22 113/67 92 12/27/22 20:56 89 L 12/27/22 20:17 88 L 12/27/22 20:17 67 22 99 12/27/22 19:59 63 12/27/22 19:44 36.8 C 64 22 113/67 98 O2 Del Method O2 Flow Rate 12/27/22 23:57 12/27/22 23:03 Nasal Cannula 4 12/27/22 21:17 Nasal Cannula 2 12/27/22 20:56 Nasal Cannula 2 12/27/22 20:17 Room Air, Nasal Cannula 12/27/22 20:17 Nasal Cannula 2 12/27/22 19:59 12/27/22 19:44 Room Air Diagnostic Findings Laboratory Results WBC 8.13 K/ul (4.8-10.8) 12/27/22 20:15 RBC 3.09 M/uL (4.20-5.40) L 12/27/22 20:15 Hgb 9.5 g/dl (12.0-16.0) L 12/27/22 20:15 POC Hgb 10.2 g/dl (12.0-16.0) L 12/27/22 20:22 Hct 29.9 % (37.0-47.0) L 12/27/22 20:15 POC Hct 30 % (37-47) L 12/27/22 20:22 MCV 96.8 fL (80.0-100.0) 12/27/22 20:15 MCH 30.7 pg (25.0-34.0) 12/27/22 20:15 MCHC 31.8 g/dL (32.0-36.0) L 12/27/22 20:15 RDW Std Deviation 51.8 fL (36.4-46.3) H 12/27/22 20:15 RDW Coeff of Julia 15.0 % (11.5-14.5) H 12/27/22 20:15 Plt Count 258 K/uL (130-400) 12/27/22 20:15 MPV 10.6 fL (9.4-12.4) 12/27/22 20:15 Immature Gran % (Auto) 0.4 % 12/27/22 20:15 Neut % (Auto) 70.6 % 12/27/22 20:15 Lymph % (Auto) 19.4 % 12/27/22 20:15 [place] % (Auto) 8.2 % 12/27/22 20:15 Eos % (Auto) 1.2 % 12/27/22 20:15 Baso % (Auto) 0.2 % 12/27/22 20:15 Neut # (Auto) 5.73 K/uL (1.40-6.50) 12/27/22 20:15 Lymph # (Auto) 1.58 K/uL (1.2-3.4) 12/27/22 20:15 [place] # (Auto) 0.67 K/uL (0.11-0.59) H 12/27/22 20:15 Eos # (Auto) 0.10 K/uL (0-0.50) 12/27/22 20:15 Baso # (Auto) 0.02 K/uL (0-0.2) 12/27/22 20:15 Immature Gran # (Auto) 0.03 K/uL (0.01-0.20) 12/27/22 20:15 VBG pH 7.26 (7.36-7.41) L 12/27/22 20:36 VBG pCO2 52 mmHg (38-50) H 12/27/22 20:36 VBG pO2 24 mmHg 12/27/22 20:36 VBG HCO3 23 mmol/L 12/27/22 20:36 VBG O2 Saturation < 60.0 % 12/27/22 20:36 VBG Base Excess -4.3 mEq/L 12/27/22 20:36 POC Sodium 144 mmol/L (135-144) 12/27/22 20:22 Sodium 142 mmol/L (136-145) 12/27/22 20:15 POC Potassium 3.8 mmol/L (3.3-5.0) 12/27/22 20:22 Potassium 3.8 mmol/L (3.5-5.1) 12/27/22 20:15 POC Chloride 109 mmol/L (101-112) 12/27/22 20:22 Chloride 112 mmol/L (98-107) H 12/27/22 20:15 Carbon Dioxide 24 mmol/L (21-32) 12/27/22 20:15 POC Total CO2 24 mmol/L (24-31) 12/27/22 20:22 Anion Gap 6 (3-11) 12/27/22 20:15 POC Anion Gap 16.0 mmol/L (16-25) 12/27/22 20:22 POC BUN 33 mg/dl (7-18) H 12/27/22 20:22 BUN 35 mg/dl (6-23) H 12/27/22 20:15 Creatinine 1.20 mg/dl (0.6-1.2) 12/27/22 20:15 POC Creatinine 1.3 mg/dl (0.6-1.3) 12/27/22 20:22 Est Cr Clr Drug Dosing 30.6 ml/min 12/27/22 20:15 Est GFR ( Amer) 51.2 ml/min 12/27/22 20:15 Est GFR (Non-Af Amer) 44.2 ml/min 12/27/22 20:15 BUN/Creatinine Ratio 29.2 (10-20) H 12/27/22 20:15 Glucose 100 mg/dl (70-99(Fasting)) H 12/27/22 20:15 POC Glucose (other) 101 mg/dl (70-99) H 12/27/22 20:22 Calcium 8.4 mg/dl (8.6-10.3) L 12/27/22 20:15 POC Ioniz Calcium Delvin 1.18 mmol/l (1.12-1.32) 12/27/22 20:22 Total Bilirubin 0.2 mg/dl (0.2-1.0) 12/27/22 20:15 Direct Bilirubin 0.0 mg/dl (0-0.2) 12/27/22 20:15 AST 17 U/L (13-39) 12/27/22 20:15 ALT 12 U/L (7-52) 12/27/22 20:15 Alkaline Phosphatase 43 U/L (34-104) 12/27/22 20:15 Troponin I High Sens 8.5 pg/ml (0-14) 12/27/22 20:15 Total Protein 6.6 gm/dl (6.0-8.3) 12/27/22 20:15 Albumin 3.9 gm/dl (3.4-5.0) 12/27/22 20:15 Globulin 2.7 gm/dl (2.5-4.0) 12/27/22 20:15 Albumin/Globulin Ratio 1.4 (0.9-2) 12/27/22 20:15 Lipase 76 U/L (11-82) 12/27/22 20:15 SARS-CoV-2, RNA, NAAT NEGATIVE (NEGATIVE) 12/27/22 Unknown Impressions Abdomen/Pelvis CT 12/27/22 20:03 Exam(s): CT ABDOMEN + PELVIS With Contrast IV Amt: 90 ml optiray 350 EXAM: CT Abdomen and Pelvis With Intravenous Contrast CLINICAL HISTORY: Reason for exam: llq pain. TECHNIQUE: Axial computed tomography images of the abdomen and pelvis with intravenous contrast. CTDI is 15.35 mGy and DLP is 649.02 mGy-cm. Automated exposure control was utilized for the study. A dose lowering technique was utilized adhering to the principles of ALARA. CONTRAST: Patient received 90 ml optiray 350 of IV contrast COMPARISON: August 16, 2020 FINDINGS: Lung bases: Unremarkable. No mass. No consolidation. ABDOMEN: Liver: Unremarkable. No mass. Gallbladder and bile ducts: Previous cholecystectomy. There is diffuse biliary duct dilation with the common bile duct measuring 1.2 cm. This is similar to previous. No choledocholithiasis is seen. Pancreas: Unremarkable. No mass. No ductal dilation. Spleen: Unremarkable. No splenomegaly. Adrenals: Unremarkable. No mass. Kidneys and ureters: Nonobstructive 7 mm calyceal calculus in the lower pole the right kidney. No hydronephrosis or ureterolithiasis is seen. Stomach and bowel: Bowel loops are nondilated. The colon is contracted which gives the appearance of mild wall thickening. No definite surrounding inflammation is seen but mild colitis is suspected. PELVIS: Appendix: No findings to suggest acute appendicitis. Bladder: Unremarkable. No mass. Reproductive: Unremarkable as visualized. ABDOMEN and PELVIS: Intraperitoneal space: The uterus has been removed. No free fluid is seen in the pelvis. No free air. Bones/joints: Mild degenerative changes throughout the spine. No acute fracture or subluxation is seen. Soft tissues: Unremarkable. Vasculature: There is a 3.4 cm infrarenal abdominal aortic aneurysm without evidence of rupture. Lymph nodes: Unremarkable. No enlarged lymph nodes. IMPRESSION: 1. Bowel loops are nondilated. The colon is contracted which gives the appearance of mild wall thickening. No definite surrounding inflammation is seen but mild colitis is suspected. 2. Previous cholecystectomy. There is diffuse biliary duct dilation with the common bile duct measuring 1.2 cm. This is similar to previous. No choledocholithiasis is seen. Electronically signed by: Herbert Oakley MD 12/27/22 22:59 PM ECG Additional Comments: ECG atrial sensed ventricular paced rhythm with rate of 65. Code Status & VTE Plan VTE Prophylaxis Plan VTE Prophylaxis will be ordered: Yes
[2022-12-28] MEDS ORDERED: SODIUM CHLORIDE 0.9% 1,000 ML IV SCH (02:57)
[2022-12-28] MEDS ORDERED: ACETAMINOPHEN 325 MG TAB PO PRN (02:57)
[2022-12-28] MEDS ORDERED: oxyCODONE HCL IR 5 MG TAB (IMMEDIATE RELEASE) PO PRN (02:57)
[2022-12-28] MEDS ORDERED: NITROGLYCERIN SL 0.4 MG/TAB TAB SL PRN ×2 (02:57)
[2022-12-28] MEDS ORDERED: ALBUT/IPRATROP 3MG/0.5MG NEB 3 ML VIAL NEB PRN (02:57)
[2022-12-28] MEDS ORDERED: ONDANSETRON INJ 2 MG/ML 2 ML VIAL IV PRN (02:57)
[2022-12-28] MEDS ORDERED: hydrOXYzine HCl 25 MG TAB PO PRN (02:57)
[2022-12-28] MEDS ORDERED: ALBUTEROL HFA 8 GM INHALER INH PRN (02:57)
[2022-12-28 03:20] LABS: Appearance Urine Clear (Clear); Bacteria Urine Automated Negative (Negative); Bilirubin Urine Negative (Negative); Blood Urine Negative (Negative); Color Urine Yellow; Epithelial Cell Urine Auto >30 /lpf (0-5); Glucose Urine UA Negative (Negative); Ketones Urine Negative (Negative); Leukocyte Esterase Urine Negative (Negative); Nitrite Urine Negative (Negative); Protein Urine Trace (Negative); RBC Urine Automated 0-4 /hpf (0-4); Urobilinogen Urine Negative (Negative); pH Urine 5.5 (4.5-7.5)
[2022-12-28] MEDS: methylPREDNISolone 40 MG in SYRINGE 0 ML IV SCH ×3 (04:21→21:10)
[2022-12-28] MEDS: PANTOprazole 40 MG TAB PO SCH (05:58)
[2022-12-28] MEDS: ALBUT/IPRATROP 3MG/0.5MG NEB 3 ML VIAL NEB SCH ×4 (07:24→19:12)
--- NOTE | 2022-12-28 07:40 | XRay Report ---
XR chest 1V portable CLINICAL HISTORY: sob TECHNIQUE: Single frontal radiograph of the chest was obtained. Comparison: Comparison is made to chest radiograph 12/17/2022 FINDINGS: Pacemaker defibrillator is seen. Calcified aortic knob is seen. The lungs are clear. No evidence of p leural effusion or pneumothorax. IMPRESSION: No acute chest disease. ACT 112: Negative or not required by law. Electronically signed by: Dennis Tobar M.D. 12/28/2022 7:39 AM
[2022-12-28 07:41] LABS: Basophils # (auto) 0.01 K/uL (0-0.2); Basophils % (auto) 0.2 %; Hematocrit (blood only) 30.4 % (37.0-47.0); Hemoglobin 9.6 g/dl (12.0-16.0); Immature Granulocytes # (auto) 0.04 K/uL (0.01-0.20); Immature Granulocytes % (auto) 0.8 %; Lymphocytes # (auto) 0.61 K/uL (1.2-3.4); Mean Corpuscular Hemoglobin 30.9 pg (25.0-34.0); Mean Corpuscular Hgb Conc 31.6 g/dL (32.0-36.0); Mean Corpuscular Volume 97.7 fL (80.0-100.0); Mean Platelet Volume 10.2 fL (9.4-12.4); Monocytes # (auto) 0.08 K/uL (0.11-0.59); Monocytes % (auto) 1.7 %; Neutrophils # (auto) 3.97 K/uL (1.40-6.50); Neutrophils % (auto) 84.3 %; Platelet Count 249 K/uL (130-400); RDW Coefficient of Variation 14.8 % (11.5-14.5); RDW Standard Deviation 53.1 fL (36.4-46.3); Red Blood Count 3.11 M/uL (4.20-5.40); White Blood Count 4.71 K/ul (4.8-10.8)
[2022-12-28 07:49] LABS: BUN Creatinine Ratio 27.7 (10-20); Calcium 8.8 mg/dl (8.6-10.3); Creatinine Clr Calc Pharmacy 35.5 ml/min; Est GFR (African American) 55.6 ml/min; Magnesium 1.9 mg/dl (1.7-2.4); Potassium 4.1 mmol/L (3.5-5.1)
[2022-12-28] MEDS: VENLAFAXINE HCL XR 75 MG CAPXR PO SCH (08:25)
[2022-12-28] MEDS: levETIRAcetam 500 MG TAB PO SCH ×2 (08:25→21:13)
[2022-12-28] MEDS: cloNIDine HCL 0.1 MG TAB PO SCH (08:25)
[2022-12-28] MEDS: ATORVASTATIN 20 MG TAB PO SCH (08:26)
[2022-12-28] MEDS: CLOPIDOGREL BISULFATE 75 MG TAB PO SCH (08:26)
[2022-12-28] MEDS: FUROSEMIDE 40 MG TAB PO SCH (08:27)
[2022-12-28] MEDS: METOPROLOL SUCC 50MG EXT REL TAB PO SCH (08:27)
[2022-12-28] MEDS: lisinopril 20 MG TAB PO SCH (08:27)
[2022-12-28] MEDS: APIXABAN 5 MG TABLET PO SCH ×2 (08:27→21:11)
[2022-12-28] MEDS: GABAPENTIN 300 MG CAP PO SCH ×3 (08:27→21:11)
[2022-12-28] MEDS: UMECLIDINIUM/VILANTEROL 62.5/25MCG 7 PUFFS/INHALER INH SCH (08:30)
[2022-12-28] MEDS: POTASSIUM CHLORIDE CRTAB 20 MEQ TABCR PO SCH (08:32)
[2022-12-28] MEDS: DOXYCYCLINE HYCLATE 100 MG in DEXTROSE 5% 100 ML IV SCH ×2 (08:40→21:13)
[2022-12-28] MEDS ORDERED: SODIUM CHLORIDE 0.45 % 1,000 ML IV SCH (09:15)
--- NOTE | 2022-12-28 09:24 | Gastrointestinal Consultation ---
Date of Consultation December 28, 2022 Assessment & Plan (1) Colitis: 77 year old female with chronic comorbidities admitted with nausea/vomiting and diarrhea, symptoms fully resolved, clinically feeling well from a gastrointestinal standpoint and would like to eat and be discharged. Can submit stools if diarrhea returns Start with a clear liquid diet, advance as tolerated She would like an outpatient colonoscopy to follow up findings on CT scan Thank you for allowing us to participate in the care of this patient. Please call with any acute changes, questions or concerns. Please see addendum below with additional recommendation from my supervising physician. Supervising Physician Co-Signing Physician Notes Attending attestation I have seen, examined this patient, and agree with the findings and above by our mid-level provider OSCAR Kilgore, with the following additions: Clinically improved Plan for outpt Colonoscopy History of Present Illness Reason for Consultation: N/V/D abd pain Requesting Physician: Ty Attending Physician: Yonny Crawford MD History of Present Illness 77 year old female with history of chronic systolic/diastolic heart failure status post ICD EF of 60 to 65%, echo in November 2022, CAD status post stent, chronic LBBB, mild aortic regurgitation, AAA, hypertension, hyperlipidemia, COPD, DM2 diet-controlled, HCV status post tx, chronic anemia (baseline hemoglobin of 10), history of DVT on Eliquis , possible seizure disorder on Keppra Rx, right nasopharyngeal mass, chronic pain, ongoing tobacco abuse admitted with COPD exacerbation - GI asked to evaluate for abd pain, n/v/d. Pt was seen and evaluated, chart reviewed. Notes yesterday she had generalized abd pain followed by severe nausea/vomiting and loose watery stools. Denies any black/bloody stools. Notes that this AM her symptoms are fully resolved. No abd pain. No nausea. Last episode of emesis was yesterday. No further episodes of loose stools. Wants to eat. Wants to go home. CTAP 2022: Bowel loops are nondilated. The colon is contracted which gives the appearance of mild wall thickening. No definite surrounding inflammation is seen but mild colitis is suspected. Previous cholecystectomy. There is diffuse biliary duct dilation with the common bile duct measuring 1.2 cm. This is similar to previous. No choledocholithiasis is seen. Allergies Allergy/AdvReac Type Severity Reaction Status Date / Time NSAIDS (Non-Steroidal AdvReac Severe GI ISSUES Verified 12/17/22 20:25 Anti-Inflamma Uhpkddp-IRG-MjA Reductase AdvReac Severe LIVER Verified 12/17/22 20:25 Inhibitor FUNCTION [Gbbnmbb-Kkc-Ssw Reductase ELEVATES Inhibitor] isosorbide AdvReac Intermediate VOMIT/HEADA Verified 12/17/22 20:25 CARLOS tramadol AdvReac Intermediate VOMITING Verified 12/17/22 20:25 Home Medications Medication Instructions Recorded Confirmed Type clonidine HCl 0.1 mg tablet 0.05 mg PO QAM #0 tabs 03/30/17 12/27/22 History nitroglycerin 0.4 mg sublingual 0.4 mg sublingual DIRECTED PRN 03/30/17 12/27/22 History tablet Chest Pain #0 BTLS pantoprazole 40 mg tablet,delayed 40 mg PO DAILYBB #30 tabs 03/30/17 12/27/22 History release lisinopril 20 mg tablet 20 mg PO DAILY ##0 07/27/17 12/27/22 History metoprolol succinate 100 mg 100 mg PO DAILY #0 tabs 07/27/17 12/27/22 History tablet,extended release 24 hr oxycodone 5 mg tablet 5 mg PO Q6H PRN Severe Pain (Scale 08/16/20 12/27/22 History Score 7-10) trazodone 50 mg tablet 25 mg PO HS 08/16/20 12/27/22 History atorvastatin 40 mg tablet 20 mg PO DAILY 10/05/22 12/27/22 History furosemide 40 mg tablet 40 mg PO QAM 10/05/22 12/27/22 History potassium chloride 20 mEq 20 meq PO DAILY 10/05/22 12/27/22 History tablet,extended release(part/cryst) albuterol sulfate 90 mcg/actuation 2 puff inhalation Q4H PRN 12/17/22 12/27/22 History aerosol inhaler Shortness Of Breath Or Wheezing gabapentin 300 mg capsule 300 mg PO TID 12/17/22 12/27/22 History hydroxyzine HCl 25 mg tablet 25 mg PO TID PRN Anxiety 12/17/22 12/27/22 History ondansetron HCl 4 mg tablet 4 mg PO Q8H PRN Nausea 12/17/22 12/27/22 History umeclidinium 62.5 mcg-vilanterol 1 inh inhalation DAILY 12/17/22 12/27/22 Hist ory 25 mcg/actuation powdr for inhalation (Anoro Ellipta) apixaban 5 mg tablet (Eliquis) 5 mg PO BID #60 tabs 12/19/22 12/27/22 Rx clopidogrel 75 mg tablet 75 mg PO QAM #30 tabs 12/19/22 12/27/22 Rx levetiracetam 500 mg tablet 500 mg PO BID 30 days #60 tabs 12/19/22 12/27/22 Rx venlafaxine 75 mg capsule,extended 225 mg PO QAM 12/27/22 12/27/22 History release 24 hr Patient History Medical History Acute anterior wall VT Anxiety CAD (coronary artery disease) "VT 2006. S/P PCI/Stent RCA" Chronic hepatitis C without hepatic coma Chronic pain CKD (chronic kidney disease), stage III COPD, group C, by GOLD 2017 classification Elevated troponin GERD (gastroesophageal reflux disease) H/O cardiac pacemaker HTN (hypertension) Hyperlipidemia Hypoxia Ischemic cardiomyopathy LBBB (left bundle branch block) Migraine OA (osteoarthritis) Respiratory acidosis Surgical History H/O release of tendon H/O: hysterectomy History of carpal tunnel surgery History of implantable cardioverter-defibrillator (ICD) placement Hx of cataract surgery S/P cardiac cath S/P cholecystectomy Family History Father , age 81 of lung cancer Prostate cancer Heart disease Thyroid disorder Lung cancer Mother , age 80 with COPD Cancer Cervical Coronary heart disease s/p CABG Diabetes COPD (chronic obstructive pulmonary disease) Social History Smoking Status: Current every day smoker Tobacco Type: Cigarettes Age Started Using Tobacco: 23; packs per day: 0.5; Cigarettes Per Day: 4; Second Hand Exposure: No; Do You Dip or Chew Tobacco: No; Tobacco Cessation Education Requested by Patient: No Hx Alcohol Use: No Hx Substance Use: No Preferred Language: Wolof Communication Ability: Effective Honeycomb Blanket Maker Required: No Beliefs That Will Affect Care: None Current Living Situation: Alone current occupational status: retired 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 Other Information That Helps Us Care for You: No Feels Safe at Home: Yes Safety Concerns: Feels Safe At This Time Assistive Devices: None Review of Systems Review of Systems: All systems reviewed & are unremarkable except as noted in HPI & below Physical Exam Constitutional: WD/WN, vitals as above Respiratory: normal respiratory effort, lungs clear to auscultation Cardiovascular: Rate/Rhythm: regular rate and regular rhythm Gastrointestinal (Abdomen): normal bowel sounds, soft, nontender, no hepatosplenomegaly Skin: no rashes, warm and dry Results & Data Vital Signs (Past 12 Hours) Vital Signs Temp Pulse Pulse Pulse Resp BP Pulse Ox 12/28/22 07:30 37.1 C 73 14 164/76 H 91 12/28/22 07:00 12/28/22 07:28 69 12/28/22 07:26 68 18 96 12/28/22 02:50 70 12/28/22 02:50 12/28/22 02:50 36.6 C 81 18 132/61 96 12/28/22 01:42 69 20 112/68 93 12/27/22 23:57 64 12/27/22 23:03 66 20 130/73 94 O2 Del Method O2 Flow Rate 12/28/22 07:30 Nasal Cannula 4 12/28/22 07:00 Nasal Cannula 2 12/28/22 07:28 12/28/22 07:26 Nasal Cannula 4 12/28/22 02:50 12/28/22 02:50 Nasal Cannula 4 12/28/22 02:50 Nasal Cannula 4 12/28/22 01:42 Nasal Cannula 4 12/27/22 23:57 12/27/22 23:03 Nasal Cannula 4 Laboratory Results 12/28/22 12/28/22 12/28/22 Range/Units 06:58 06:58 02:55 WBC 4.71 L (4.8-10.8) K/ul RBC 3.11 L (4.20-5.40) M/uL Hgb 9.6 L (12.0-16.0) g/dl POC Hgb (12.0-16.0) g/dl Hct 30.4 L (37.0-47.0) % POC Hct (37-47) % MCV 97.7 (80.0-100.0) fL MCH 30.9 (25.0-34.0) pg MCHC 31.6 L (32.0-36.0) g/dL RDW Std Deviation 53.1 H (36.4-46.3) fL RDW Coeff of Julia 14.8 H (11.5-14.5) % Plt Count 249 (130-400) K/uL MPV 10.2 (9.4-12.4) fL Immature Gran % (Auto) 0.8 % Neut % (Auto) 84.3 % Lymph % (Auto) 13.0 % [place] % (Auto) 1.7 % Eos % (Auto) 0.0 % Baso % (Auto) 0.2 % Neut # (Auto) 3.97 (1.40-6.50) K/uL Lymph # (Auto) 0.61 L (1.2-3.4) K/uL [place] # (Auto) 0.08 L (0.11-0.59) K/uL Eos # (Auto) 0.00 (0-0.50) K/uL Baso # (Auto) 0.01 (0-0.2) K/uL Immature Gran # (Auto) 0.04 (0.01-0.20) K/uL VBG pH (7.36-7.41) VBG pCO2 (38-50) mmHg VBG pO2 mmHg VBG HCO3 mmol/L VBG O2 Saturation % VBG Base Excess mEq/L POC Sodium (135-144) mmol/L Sodium 141 (136-145) mmol/L POC Potassium (3.3-5.0) mmol/L Potassium 4.1 (3.5-5.1) mmol/L POC Chloride (101-112) mmol/L Chloride 112 H (98-107) mmol/L Carbon Dioxide 23 (21-32) mmol/L POC Total CO2 (24-31) mmol/L Anion Gap 6 (3-11) POC Anion Gap (16-25) mmol/L POC BUN (7-18) mg/dl BUN 31 H (6-23) mg/dl Creatinine 1.12 (0.6-1.2) mg/dl POC Creatinine (0.6-1.3) mg/dl Est Cr Clr Drug Dosing 35.5 ml/min Est GFR ( Amer) 55.6 ml/min Est GFR (Non-Af Amer) 48.0 ml/min BUN/Creatinine Ratio 27.7 H (10-20) Glucose 164 H (70-99(Fasting)) mg/dl POC Glucose (other) (70-99) mg/dl Calcium 8.8 (8.6-10.3) mg/dl POC Ioniz Calcium Delvin (1.12-1.32) mmol/l Magnesium 1.9 (1.7-2.4) mg/dl Total Bilirubin (0.2-1.0) mg/dl Direct Bilirubin (0-0.2) mg/dl AST (13-39) U/L ALT (7-52) U/L Alkaline Phosphatase (34-104) U/L Troponin I High Sens (0-14) pg/ml Total Protein (6.0-8.3) gm/dl Albumin (3.4-5.0) gm/dl Globulin (2.5-4.0) gm/dl Albumin/Globulin Ratio (0.9-2) Lipase (11-82) U/L Urine Color Yellow Urine Appearance Clear (Clear) Urine pH 5.5 (4.5-7.5) Ur Specific [place] 1.040 H (1.000-1.030) Urine Protein Trace H (Negative) Urine Glucose (UA) Negative (Negative) Urine Ketones Negative (Negative) Urine Blood Negative (Negative) Urine Nitrite Negative (Negative) Urine Bilirubin Negative (Negative) Urine Urobilinogen Negative (Negative) Ur Leukocyte Esterase Negative (Negative) Urine WBC (Auto) 1-5 (0-5) /hpf Urine RBC (Auto) 0-4 (0-4) /hpf U Hyaline Cast (Auto) 1-5 (0-5) /lpf U Epithel Cells (Auto) >30 H (0-5) /lpf Urine Bacteria (Auto) Negative (Negative) SARS-CoV-2, RNA, NAAT (NEGATIVE) 12/27/22 12/27/22 12/27/22 Range/Units Unknown 20:36 20:22 WBC (4.8-10.8) K/ul RBC (4.20-5.40) M/uL Hgb (12.0-16.0) g/dl POC Hgb 10.2 L (12.0-16.0) g/dl Hct (37.0-47.0) % POC Hct 30 L (37-47) % MCV (80.0-100.0) fL MCH (25.0-34.0) pg MCHC (32.0-36.0) g/dL RDW Std Deviation (36.4-46.3) fL RDW Coeff of Julia (11.5-14.5) % Plt Count (130-400) K/uL MPV (9.4-12.4) fL Immature Gran % (Auto) % Neut % (Auto) % Lymph % (Auto) % [place] % (Auto) % Eos % (Auto) % Baso % (Auto) % Neut # (Auto) (1.40-6.50) K/uL Lymph # (Auto) (1.2-3.4) K/uL [place] # (Auto) (0.11-0.59) K/uL Eos # (Auto) (0-0.50) K/uL Baso # (Auto) (0-0.2) K/uL Immature Gran # (Auto) (0.01-0.20) K/uL VBG pH 7.26 L (7.36-7.41) VBG pCO2 52 H (38-50) mmHg VBG pO2 24 mmHg VBG HCO3 23 mmol/L VBG O2 Saturation < 60.0 % VBG Base Excess -4.3 mEq/L POC Sodium 144 (135-144) mmol/L Sodium (136-145) mmol/L POC Potassium 3.8 (3.3-5.0) mmol/L Potassium (3.5-5.1) mmol/L POC Chloride 109 (101-112) mmol/L Chloride (98-107) mmol/L Carbon Dioxide (21-32) mmol/L POC Total CO2 24 (24-31) mmol/L Anion Gap (3-11) POC Anion Gap 16.0 (16-25) mmol/L POC BUN 33 H (7-18) mg/dl BUN (6-23) mg/dl Creatinine (0.6-1.2) mg/dl POC Creatinine 1.3 (0.6-1.3) mg/dl Est Cr Clr Drug Dosing ml/min Est GFR ( Amer) ml/min Est GFR (Non-Af Amer) ml/min BUN/Creatinine Ratio (10-20) Glucose (70-99(Fasting)) mg/dl POC Glucose (other) 101 H (70-99) mg/dl Calcium (8.6-10.3) mg/dl POC Ioniz Calcium Delvin 1.18 (1.12-1.32) mmol/l Magnesium (1.7-2.4) mg/dl Total Bilirubin (0.2-1.0) mg/dl Direct Bilirubin (0-0.2) mg/dl AST (13-39) U/L ALT (7-52) U/L Alkaline Phosphatase (34-104) U/L Troponin I High Sens (0-14) pg/ml Total Protein (6.0-8.3) gm/dl Albumin (3.4-5.0) gm/dl Globulin (2.5-4.0) gm/dl Albumin/Globulin Ratio (0.9-2) Lipase (11-82) U/L Urine Color Urine Appearance (Clear) Urine pH (4.5-7.5) Ur Specific [place] (1.000-1.030) Urine Protein (Negative) Urine Glucose (UA) (Negative) Urine Ketones (Negative) Urine Blood (Negative) Urine Nitrite (Negative) Urine Bilirubin (Negative) Urine Urobilinogen (Negative) Ur Leukocyte Esterase (Negative) Urine WBC (Auto) (0-5) /hpf Urine RBC (Auto) (0-4) /hpf U Hyaline Cast (Auto) (0-5) /lpf U Epithel Cells (Auto) (0-5) /lpf Urine Bacteria (Auto) (Negative) SARS-CoV-2, RNA, NAAT NEGATIVE (NEGATIVE) 12/27/22 12/27/22 Range/Units 20:15 20:15 WBC 8.13 (4.8-10.8) K/ul RBC 3.09 L (4.20-5.40) M/uL Hgb 9.5 L (12.0-16.0) g/dl POC Hgb (12.0-16.0) g/dl Hct 29.9 L (37.0-47.0) % POC Hct (37-47) % MCV 96.8 (80.0-100.0) fL MCH 30.7 (25.0-34.0) pg MCHC 31.8 L (32.0-36.0) g/dL RDW Std Deviation 51.8 H (36.4-46.3) fL RDW Coeff of Julia 15.0 H (11.5-14.5) % Plt Count 258 (130-400) K/uL MPV 10.6 (9.4-12.4) fL Immature Gran % (Auto) 0.4 % Neut % (Auto) 70.6 % Lymph % (Auto) 19.4 % [place] % (Auto) 8.2 % Eos % (Auto) 1.2 % Baso % (Auto) 0.2 % Neut # (Auto) 5.73 (1.40-6.50) K/uL Lymph # (Auto) 1.58 (1.2-3.4) K/uL [place] # (Auto) 0.67 H (0.11-0.59) K/uL Eos # (Auto) 0.10 (0-0.50) K/uL Baso # (Auto) 0.02 (0-0.2) K/uL Immature Gran # (Auto) 0.03 (0.01-0.20) K/uL VBG pH (7.36-7.41) VBG pCO2 (38-50) mmHg VBG pO2 mmHg VBG HCO3 mmol/L VBG O2 Saturation % VBG Base Excess mEq/L POC Sodium (135-144) mmol/L Sodium 142 (136-145) mmol/L POC Potassium (3.3-5.0) mmol/L Potassium 3.8 (3.5-5.1) mmol/L POC Chloride (101-112) mmol/L Chloride 112 H (98-107) mmol/L Carbon Dioxide 24 (21-32) mmol/L POC Total CO2 (24-31) mmol/L Anion Gap 6 (3-11) POC Anion Gap (16-25) mmol/L POC BUN (7-18) mg/dl BUN 35 H (6-23) mg/dl Creatinine 1.20 (0.6-1.2) mg/dl POC Creatinine (0.6-1.3) mg/dl Est Cr Clr Drug Dosing 30.6 ml/min Est GFR ( Amer) 51.2 ml/min Est GFR (Non-Af Amer) 44.2 ml/min BUN/Creatinine Ratio 29.2 H (10-20) Glucose 100 H (70-99(Fasting)) mg/dl POC Glucose (other) (70-99) mg/dl Calcium 8.4 L (8.6-10.3) mg/dl POC Ioniz Calcium [place]vin (1.12-1.32) mmol/l Magnesium (1.7-2.4) mg/dl Total Bilirubin 0.2 (0.2-1.0) mg/dl Direct Bilirubin 0.0 (0-0.2) mg/dl AST 17 (13-39) U/L ALT 12 (7-52) U/L Alkaline Phosphatase 43 (34-104) U/L Troponin I High Sens 8.5 (0-14) pg/ml Total Protein 6.6 (6.0-8.3) gm/dl Albumin 3.9 (3.4-5.0) gm/dl Globulin 2.7 (2.5-4.0) gm/dl Albumin/Globulin Ratio 1.4 (0.9-2) Lipase 76 (11-82) U/L Urine Color Urine Appearance (Clear) Urine pH (4.5-7.5) Ur Specific [place] (1.000-1.030) Urine Protein (Negative) Urine Glucose (UA) (Negative) Urine Ketones (Negative) Urine Blood (Negative) Urine Nitrite (Negative) Urine Bilirubin (Negative) Urine Urobilinogen (Negative) Ur Leukocyte Esterase (Negative) Urine WBC (Auto) (0-5) /hpf Urine RBC (Auto) (0-4) /hpf U Hyaline Cast (Auto) (0-5) /lpf U Epithel Cells (Auto) (0-5) /lpf Urine Bacteria (Auto) (Negative) SARS-CoV-2, RNA, NAAT (NEGATIVE)
--- NOTE | 2022-12-28 14:13 | Electrocardiogram Report ---
Test Reason : Blood Pressure : / mmHG Vent. Rate : 065 BPM Atrial Rate : 065 BPM P-R Int : 142 ms QRS Dur : 126 ms QT Int : 478 ms P-R-T Axes : 067 -48 063 degrees QTc Int : 497 ms Atrial-sensed ventricular-paced rhythm Abnormal ECG When compared with ECG of 17-DEC-2022 20:21, Vent. rate has decreased BY 6 BPM Confirmed by Craig Frias ([id number]) on 12/28/2022 2:13:05 PM Referred By: REFERRED SELF Confirmed By:Krish Frias
--- NOTE | 2022-12-28 16:42 | Communication Note ---
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 She is being managed for the following: COPD exacerbation: Continues to smoke despite multiple counseling during your workup recent admission. 3 to 4 cigarettes daily. Continue with Solu-Medrol, RTC nebs, doxycycline. Improving. Abdominal pain: Associated with nausea, vomiting, diarrhea. Patient reports improvement in her symptoms. Does not have abdominal tenderness on exam. CTAP with no significant acute findings. GI evaluated, appreciate recommendation. C. difficile if with further diarrhea. Follow-up with GI as an outpatient for possible outpatient colonoscopy eval. Recent acute ischemic right MCA stroke: Continue with statin low-dose, follow-up with neurology in 4 to 6 weeks and discharge. Continue with Eliquis and Plavix. History of seizure disorder:Recent confinement in September 2022 with altered mental status when patient was noted to have myoclonic jerk and neurology evaluated, was discharged on Keppra. Continue with home Keppra. History of DVT:history of RLE DVT, continue with Eliquis. Recent history of incidental finding of right nasopharyngeal mass: Follow-up ENT as an outpatient. Appears outpatient ENT evaluation is scheduled for January 2023 per patient. Other chronic medical conditions:c/w or resume home meds as and when able. Systolic/diastolic heart failure s/p ICD (recent EF of 60 to 65%, TTE 2022), patient on the dry side CAD status post stent chronic LBBB mild aortic regurgitation AAA, stable at 3 cm measurement as of 2022 outpatient aortic duplex hypertension hyperlipidemia, on statin Rx DM2 diet-controlled, Documented inpatient hemoglobin A1c of 7.1 from 2020. A1C 6.3 in November HCV status post tx chronic anemia, hemoglobin at baseline chronic pain ongoing tobacco abuse: needs counselling. DVT Px: Eliquis Full Code. On examination, patient on 2 L oxygen, occasional wheezing bilaterally. Rest of the examination as per today's H&P note. For detailed information on the patient, refer to today's H&P note.
[2022-12-28] MEDS ORDERED: traZODone HCL 50 MG TAB PO SCH (21:00)
[2022-12-29] MEDS: PANTOprazole 40 MG TAB PO SCH (04:59)
[2022-12-29] MEDS: methylPREDNISolone 40 MG in SYRINGE 0 ML IV SCH (04:59)
[2022-12-29 06:29] LABS: Hematocrit (blood only) 27.4 % (37.0-47.0); Hemoglobin 8.7 g/dl (12.0-16.0); Mean Corpuscular Hgb Conc 31.8 g/dL (32.0-36.0); Mean Corpuscular Volume 97.5 fL (80.0-100.0); Platelet Count 249 K/uL (130-400); RDW Coefficient of Variation 14.8 % (11.5-14.5); RDW Standard Deviation 52.4 fL (36.4-46.3); Red Blood Count 2.81 M/uL (4.20-5.40); White Blood Count 9.49 K/ul (4.8-10.8)
[2022-12-29 06:34] LABS: BUN Creatinine Ratio 32.6 (10-20); Calcium 8.6 mg/dl (8.6-10.3); Creatinine Clr Calc Pharmacy 44.7 ml/min; Est GFR (African American) 73.5 ml/min; Est GFR (Non-African American) 63.4 ml/min; Magnesium 1.7 mg/dl (1.7-2.4); Phosphorus 3.3 mg/dl (2.5-4.9); Potassium 4.1 mmol/L (3.5-5.1)
[2022-12-29] MEDS: ALBUT/IPRATROP 3MG/0.5MG NEB 3 ML VIAL NEB SCH ×4 (07:00→19:21)
[2022-12-29] MEDS: APIXABAN 5 MG TABLET PO SCH (08:24)
[2022-12-29] MEDS: GABAPENTIN 300 MG CAP PO SCH ×2 (08:24→14:15)
[2022-12-29] MEDS: lisinopril 20 MG TAB PO SCH (08:25)
[2022-12-29] MEDS: VENLAFAXINE HCL XR 75 MG CAPXR PO SCH (08:25)
[2022-12-29] MEDS: POTASSIUM CHLORIDE CRTAB 20 MEQ TABCR PO SCH (08:25)
[2022-12-29] MEDS: levETIRAcetam 500 MG TAB PO SCH (08:25)
[2022-12-29] MEDS: cloNIDine HCL 0.1 MG TAB PO SCH (08:25)
[2022-12-29] MEDS: METOPROLOL SUCC 50MG EXT REL TAB PO SCH (08:25)
[2022-12-29] MEDS: ATORVASTATIN 20 MG TAB PO SCH (08:25)
[2022-12-29] MEDS: FUROSEMIDE 40 MG TAB PO SCH (08:26)
[2022-12-29] MEDS: CLOPIDOGREL BISULFATE 75 MG TAB PO SCH (08:26)
[2022-12-29] MEDS: UMECLIDINIUM/VILANTEROL 62.5/25MCG 7 PUFFS/INHALER INH SCH (08:28)
[2022-12-29] MEDS: DOXYCYCLINE HYCLATE 100 MG in DEXTROSE 5% 100 ML IV SCH (08:31)
[2022-12-29] MEDS ORDERED: guaiFENesin 600 MG TABCR PO SCH (10:40)
--- NOTE | 2022-12-29 15:59 | Discharge Summary ---
Date of Service December 29, 2022 Admission HPI Per Admitting Provider 76-year-old female with past med significant for chronic systolic/diastolic heart failure status post ICD EF of 60 to 65%, echo in2022, CAD status post stent, chronic LBBB, mild aortic regurgitation, AAA, hypertension, hyperlipidemia, COPD, DM2 diet-controlled, HCV status post tx, chronic anemia (baseline hemoglobin of 10), history of DVT on Eliquis , possible seizure disorder on Keppra Rx, right nasopharyngeal mass, chronic pain, ongoing tobacco abuse presents with cough with whitish phlegm and shortness of breath since last couple of days and also since yesterday has severe abdominal pain associated with nausea and vomiting and had 4 episodes of diarrhea yesterday. Denies any blood in the stools or black stools. Currently sleepy but arousable and answers appropriately. Denies any chest pain. No fevers. No headaches. No earache or runny nose or sore throat. Normal micturition. Currently hemodynamically stable. Patient was admitted September 2022 with altered mental status and myoclonic jerks neurology recommended Keppra for possible seizure disorder at that time she was also found to have new onset right lower extremity DVT and discharged on 3-month course of Eliquis per heme-onc recommendations. There is incidental finding of right nasopharyngeal mass noted on CT head and outpatient ENT evaluation seems has appointment in January 2023. But she stopped taking Keppra and Eliquis a month prior to admission in end of November when she was admitted for acute CVA with left upper extremity weakness and LLE numbness and s/p tPA. At the time aspirin was stopped and Plavix were started and Eliquis was resumed. Supposed to follow with neurology in 8 weeks Admission Exam Per Admitting Provider General- Not in distress Head- atraumatic Eyes- EOMI, ENT- oropharynx clear Neck- supple, no JVD, Lungs- clear to auscultation B/l rhonchi heard occasional wheezing Heart- regular rate and rhythm; no murmur, no gallop Abdomen- normal bowel sounds, soft, mild diffuse tenderness, no guarding, no distension. Extremities- no pretibial edema, no erythema seen Neuro- alert, oriented EOMI; no facial palsy; no dysarthria; obeys commands, moves extremities. Principal Diagnosis COPD exacerbation Abdominal pain Discharge Exam GENERAL: Alert and oriented x3. NAD, on 2L NC O2. HEENT: No pallor, no icterus. Pupils equal, round and reactive to light. Oral mucosa moist. NECK: No JVD, no neck masses. HEART: S1 and S2 heard. Regular rate and rhythm. No murmur, no gallop. RESPIRATORY SYSTEM: Normal AP diameter. No accessory muscle use. No wheezing, no crackles. ABDOMEN: Soft, bowel sounds present, nontender, no distention. CENTRAL NERVOUS SYSTEM: No facial droop. Speech is clear. Obeys simple commands. Moves extremities. EXTREMITIES: No edema, no erythema seen. Discharge Data Allergies Allergy/AdvReac Type Severity Reaction Status Date / Time NSAIDS (Non-Steroidal AdvReac Severe GI ISSUES Verified 12/17/22 20:25 Anti-Inflamma Jrouitl-YHI-PaA Reductase AdvReac Severe LIVER Verified 12/17/22 20:25 Inhibitor FUNCTION [Nvwlogn-Hhb-Ksb Reductase ELEVATES Inhibitor] isosorbide AdvReac Intermediate VOMIT/HEADA Verified 12/17/22 20:25 CARLOS tramadol AdvReac Intermediate VOMITING Verified 12/17/22 20:25 Consultations 12/27/22 23:28 ED Decision to Admit Stat 12/28/22 08:00 Consult Gastroenterology Routine Ordered Studies 12/27/22 20:03 CT abd pelvis IV con only Stat Hospital Course (1) COPD exacerbation: Plan 76-year-old female with PMH of chronic systolic/diastolic heart failure s/p ICD [recent EF of 60 to 65%, TTE 2022], CAD s/p stent, chronic LBBB, mild aortic regurgitation, AAA, HTN, HLD, COPD, DM 2 diet controlled, HCV status post treatment, chronic anemia [baseline hemoglobin of 10], history of DVT on Eliquis, possible seizure disorder on Keppra treatment, right nasopharyngeal mass, ongoing tobacco abuse presented to the ED 12/27 with cough with whitish phlegm and shortness of breath since last couple of days [employer] and had severe abdominal pain with nausea and vomiting and 4 episodes of diarrhea the day prior to admission. She was managed for the following: COPD exacerbation:Continues to smoke despite multiple counseling . 3 to 4 cigarettes daily. Continue with prednisone, home nebs, doxycycline. Improving. No rhonchi heard on exam today. Patient reports feeling better, two-step test was done and patient needs 2 L oxygen with rest and ambulation. Abdominal pain:Associated with nausea, vomiting, diarrhea. Patient reports improvement in her symptoms. Does not have abdominal tenderness on exam. CTAP with no significant acute findings. GI evaluated, appreciate recommendation. No further diarrhea. Follow-up with GI as an outpatient for possible outpatient colonoscopy eval. patient is aware about this. Recent acute ischemic right MCA stroke:Continue with statin low-dose, follow-up with neurology in 4 to 6 weeks and discharge. Continue with Eliquis and Plavix. History of seizure disorder:Recent confinement in September 2022 with altered mental status when patient was noted to have myoclonic jerk and neurology evaluated, was discharged on Keppra. Continue with home Keppra. History of DVT:history of RLE DVT, continue with Eliquis. Recent history of incidental finding of right nasopharyngeal mass:Follow-up ENT as an outpatient. Appears outpatient ENT evaluation is scheduled for January 2023 per patient. Other chronic medical conditions:c/w or resume home meds as and when able. Systolic/diastolic heart failure s/p ICD (recent EF of 60 to 65%, TTE 2022), patient on the dry side CAD status post stent chronic LBBB mild aortic regurgitation AAA, stable at 3 cm measurement as of 2022 outpatient aortic duplex hypertension hyperlipidemia, on statin Rx DM2 diet-controlled, Documented inpatient hemoglobin A1c of 7.1 from 2020. A1C 6.3 in November HCV status post tx chronic anemia, hemoglobin at baseline chronic pain ongoing tobacco abuse: needs counselling. DVT Px: Eliquis Full Code. Patient being discharged home with following instruction at the point of discharge: Follow-up with your primary care physician within a week time and likely you will need labs CBC/CMP/magnesium/phosphorus. For your COPD exacerbation, you will be discharged on doxycycline and prednisone. Continue with your nebulizations as prior. Again I strictly recommend smoking cessation. Follow-up with GI as an outpatient for possible outpatient colonoscopy eval Take your medications as prescribed. Please make sure that you are able to get your medications today by calling your pharmacy before you leave the hospital so that your treatment continuity is not broken. [facility] Attestation I certify that this patient is under my care and that I, or a physicians information assistant working with me, had a face to-face encounter that meets the [facility] [id number] encounter requirements with this patient. The encounter with the patient was in whole, or in part, for the following medical condition, which is the primary reason for home health care (list medical condition): I certify that, based on my findings, the following services are medically necessary home health services: My clinical findings support the need for the above services because: Further, I certify that my clinical findings support that this patient is homebound (i.e. absences from home require considerable and taxing effort and are for medical reasons or holiness services or infrequently or of short duration when for other reasons) because: Certification for Home Health Services: Based on the above findings, I certify that this patient is confined to the home and needs intermittent chcf care, physical therapy and/or speech therapy or continues to need occupational therapy. The patient is under my care, and I have initiated the establishment of the plan of care. This patient will be followed by a physician who will periodically review the plan of care. Total Time Total Time Spent Total Time Spent (In Minutes): 45 Discharge Plan Discharge Items Patient Disposition: Home - Home Health Services Reason For Visit: COPD EX, ABDOMIANL PAIN Discharge Diagnosis: COPD exacerbation Abdominal pain Activity: Resume your previous activity Non-emergency contact: Primary Care Provider Call non-emergency contact if: you have any medication questions, your symptoms worsen and your temperature is above 101 Follow-up/Referrals: Roman Ennis MD [Primary Care Provider] - (Date & Time 01/04/2023 5:00 PM Provider Pamela Lopez PA-C Department [facility] ) Ramila Quiros CRNP [Nurse Practitioner] - (The GI office will call you with an appointment for follow up.) Diet: Heart Healthy Diet Texture: Easy to Chew Addtl Attending Provider Instructions: Follow-up with your primary care physician within a week time and likely you will need labs CBC/CMP/magnesium/phosphorus. For your COPD exacerbation, you will be discharged on doxycycline and prednisone. Continue with your nebulizations as prior. Again I strictly recommend smoking cessation. Follow-up with GI as an outpatient for possible outpatient colonoscopy eval Take your medications as prescribed. Please make sure that you are able to get your medications today by calling your pharmacy before you leave the hospital so that your treatment continuity is not broken. Pending Studies at Discharge: No Stand-Alone Forms: [facility], Smoking Cessation Medications and DC Order Prescriptions: New guaifenesin [Mucinex] 600 mg Tablet Extended Release 12hr 600 mg PO Q12 5 Days Qty: 10 0RF doxycycline hyclate 100 mg tablet 100 mg PO BID 5 Days Qty: 10 0RF prednisone 20 mg tablet 40 mg PO DAILY 4 Days Qty: 8 0RF Continued clonidine HCl 0.1 mg Tablet 0.05 mg PO QAM Qty: 0 pantoprazole 40 mg Tablet,Delayed Release (Dr/Ec) 40 mg PO DAILYBB Qty: 30 nitroglycerin 0.4 mg Tablet, Sublingual 0.4 mg sublingual DIRECTED PRN (Reason: Chest Pain) Qty: 0 lisinopril 20 mg Tablet 20 mg PO DAILY Qty: 0 metoprolol succinate 100 mg Tablet Extended Release 24 Hr 100 mg PO DAILY Qty: 0 ondansetron HCl 4 mg Tablet 4 mg PO Q8H PRN (Reason: Nausea) hydroxyzine HCl 25 mg Tablet 25 mg PO TID PRN (Reason: Anxiety) albuterol sulfate 90 mcg/actuation Hfa Aerosol Inhaler 2 puff INHALATION Q4H PRN (Reason: Shortness Of Breath Or Wheezing) Anoro Ellipta 62.5-25 mcg/actuation Blister With Device 1 inh INHALATION DAILY gabapentin 300 mg capsule 300 mg PO TID clopidogrel 75 mg Tablet 75 mg PO QAM Qty: 30 0RF levetiracetam 500 mg tablet 500 mg PO BID 30 Days Qty: 60 1RF Eliquis 5 mg Tablet 5 mg PO BID Qty: 60 0RF trazodone 50 mg tablet 25 mg PO HS oxycodone 5 mg tablet 5 mg PO Q6H PRN (Reason: Severe Pain (Scale Score 7-10)) furosemide 40 mg tablet 40 mg PO QAM atorvastatin 40 mg tablet 20 mg PO DAILY Rx Instructions: PER [facility] MED LIST "PT TAKING 1/2 TAB DAILY". potassium chloride 20 mEq tablet,ER particles/crystals 20 meq PO DAILY venlafaxine 75 mg capsule,extended release 24hr 225 mg PO QAM Discharge Orders: Discharge Order (Routine); Ordered 12/29/22 Ordered By: Yonny Crawford Admission Data Admit Date/Time: 12/28/22 01:30 Attending Provider: Yonny Crawford Admit Provider: Humberto Rosenberg Primary Care Provider: Roman Ennis Other Providers: Humberto Rosenberg ; Yajaira Aguirre ; Andrea Velasquez ; Linda Montemayor ; Bettina Allison ; Mili Lawrence ; Gisell Howard ; Dre Patino ; Santos Saavedra ; Roxy Roberts ; Arvind Hawkins ; Maurice Palmer ; Ramila Quiros ; Jacki Prabhakar ; Yolanda Pollack ; Queenie Gonzalez ; Tammie Torres ; Godfrey Bal ; Link Fairchild ; Eunice Gayle ; Rodríguez French Jr
[2022-12-29] MEDS ORDERED: methylPREDNISolone 40 MG in SYRINGE 0 ML IV SCH (21:00)
== END 2022-12-29 20:35 | disposition home health service (06) | DRG 191 ==
LOC: ED 19:30 → 2W 12-28 01:30

== ENCOUNTER 2023-01-11 20:21 | Inpatient (IN) ==
--- NOTE | 2023-01-11 20:35 | Emergency Department Note ---
Impression & Plan ARF (acute renal failure), Elevated troponin, Dehydration, Weakness, Atrial fibrillation with RVR ED Provider Note NAME: JEAN-CLAUDE MIRELES AGE: 77 SEX: F : 1945 ARRIVES VIA: Ambulance INFORMANT: [Patient][, ] ED PROVIDER(S): [Kilo Osorio MD] CHIEF COMPLAINT: Found down in the garage MEDICAL DECISION MAKING: Patient presents after being found down in the garage for approximately 2 days in duration. IV was established and blood was obtained. Initial EKG did show A-fib with RVR but currently in a paced rhythm. Patient was ordered empiric cefepime IV fluids and Keppra. CT of the head obtained along with a chest and abdominal x-ray. Rectal temperature also obtained given to be 31.9. The patient did have a bear hugger applied and fluid warmer was also initiated to help with IV fluid administration. Patient's white count was 16 with mild anemia hemoglobin of 10. Platelet count was unremarkable. Acute renal failure with a BUN/creatinine of 21 and 4 respectively. Patient's magnesium is high at 3.2. CK5 52 and troponin is 63. Patient's initial plain x-ray does not show any obvious bowel obstruction. No evidence of obvious pneumothorax. Patient does have a metabolic acidosis and the patient does have a lactate of 2.9. Patient is awake alert and following commands. She did complain of some pain in her toes but do believe this is secondary to reperfusion given the patient's significant hypothermia and dehydration. I did speak the on-call hospitalist service Dr. Leon. CT of the head and cervical spine negative. The patient was admitted to the medicine service. Upon reassessment the patient did seem to be improving after her fluid administration. Critical Care: I have personally spent 45 minutes of critical care time in direct management of this patient. This includes bedside care, interpretation of diagnostic studies, and testing, discussion with consultants, patient, and family members, and other require inpatient management activities. This 45 minutes is in excess of all separately billable procedures. Prior /Outside records reviewed: Did review discharge summary from Dr. Crawford from December 19, 2022. Patient with history of chronic systolic diastolic heart failure status post AICD the TTE in 2022 showing an EF of 60 to 65% CAD status post stent chronic left lower branch block, mild aortic regurg, AAA, hypertension, hyperlipidemia, COPD, type 2 diabetes DVT on Eliquis and possible seizure disorder on Keppra patient did receive TNK at that time. Differential diagnosis: Rhabdomyolysis, seizure, dehydration, acute renal failure, electrolyte abnormality, infection among others were considered Diagnostics, as interpreted by me: ECG: A-fib with RVR, rate of 146, wide QRS, left axis deviation. Cardiac monitoring: An order was placed for continuous cardiac monitoring. The monitor shows a rate of 88 with paced rhythm. [Patient was placed on pulse oximetry] Medical decision rules: Citizen Of [place] head CT rule, Nexus rule Imaging studies: See below I informally reviewed the patient's chest and abdominal x-rays which does not show obvious evidence of pneumothorax or pneumoperitoneum. I informally reviewed the patient's CT of the head which does not show obvious ICH. HPI: Patient presents reportedly after being found down in the garage for approximately 2 days in duration. The patient states that she fell. The patient does complain of some mild left-sided posterior head pain. Patient's medication list does show Plavix and clopidogrel. Patient denies any abdominal pain nausea vomiting or diarrhea. Patient has not had her medications since she fell. The patient was found by her granddaughter in the garage today. The patient does complain of being very thirsty and cold. The patient denies any chest pains or shortness of breath. Patient reportedly had had a root witnessed seizure by the granddaughter lasting about 1 to 2 minutes. PAST MEDICAL HISTORY: [See Below] PAST SURGICAL HISTORY: [See Below] SOCIAL HISTORY: [See Below] HOME MEDICATIONS: [See Below] ALLERGIES: [See Below] VITALS: [See Below] PHYSICAL EXAMINATION: GENERAL: NAD, non-toxic. Dirty appearing face, wearing glasses. EYE EXAM: Normal conjunctiva. PERRL, no anisocoria and EOM's grossly intact w/o pain. OROPHARYNX: Moist mucus membranes, grossly normal dentition. NECK: Supple, no nuchal rigidity, no adenopathy, non-tender. No signs of meningismus. FROM of the neck with good chin to chest and neck extension. No stridor. LUNGS: Clear to auscultation. Normal chest wall mechanics. HEART: NSR, no MRG. ABDOMEN: Abdomen soft, mild epigastric discomfort without lower abdominal pain no masses, no rebound or guarding. BACK: No CVA TTP. SKIN: No rashes and no bruising. UPPER EXTREMITIES: Upper extremities are grossly normal. Cool to touch but sen sate. LOWER EXTREMITIES: Grossly normal, no edema. Cool to touch but sensate. NEURO EXAM: A&O x3, cranial nerves II-XII grossly intact, normal speech, moves all 4 extremities. Past Med/Surg History Medical History Acute anterior wall CT Anxiety CAD (coronary artery disease) "CT 2006. S/P PCI/Stent RCA" Chronic hepatitis C without hepatic coma Chronic pain CKD (chronic kidney disease), stage III COPD, group C, by GOLD 2017 classification Elevated troponin GERD (gastroesophageal reflux disease) H/O cardiac pacemaker HTN (hypertension) Hyperlipidemia Hypoxia Ischemic cardiomyopathy LBBB (left bundle branch block) Migraine OA (osteoarthritis) Respiratory acidosis Surgical History H/O release of tendon H/O: hysterectomy History of carpal tunnel surgery History of implantable cardioverter-defibrillator (ICD) placement Hx of cataract surgery S/P cardiac cath S/P cholecystectomy Family History Father , age 81 of lung cancer Prostate cancer Heart disease Thyroid disorder Lung cancer Mother , age 80 with COPD Cancer Cervical Coronary heart disease s/p CABG Diabetes COPD (chronic obstructive pulmonary disease) Social History Smoking Status: Current every day smoker Tobacco Type: Cigarettes Age Started Using Tobacco: 23; packs per day: 0.5; Cigarettes Per Day: 4; Second Hand Exposure: No; Do You Dip or Chew Tobacco: No; Hx Alcohol Use: No Hx Substance Use: No Preferred Language: Lithuanian Communication Ability: Impaired Training And Development Head Required: No Beliefs That Will Affect Care: None Current Living Situation: Alone current occupational status: retired 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 Other Information That Helps Us Care for You: No Feels Safe at Home: Declines to Answer Assistive Devices: Glasses Allergies Allergies Allergy/AdvReac Type Severity Reaction Status Date / Time NSAIDS (Non-Steroidal AdvReac Severe GI ISSUES Verified 12/17/22 20:25 Anti-Inflamma Xcvccim-ZGO-QiI Reductase AdvReac Severe LIVER Verified 12/17/22 20:25 Inhibitor FUNCTION [Gdlwbnh-Agq-Mfa Reductase ELEVATES Inhibitor] isosorbide AdvReac Intermediate VOMIT/HEADA Verified 12/17/22 20:25 CARLOS tramadol AdvReac Intermediate VOMITING Verified 12/17/22 20:25 Home Meds Home Medications Medication Instructions Recorded Confirmed clonidine HCl 0.1 mg tablet 0.05 mg PO QAM #0 tabs 03/30/17 01/11/23 nitroglycerin 0.4 mg sublingual 0.4 mg sublingual DIRECTED PRN 03/30/17 01/11/23 tablet Chest Pain #0 BTLS pantoprazole 40 mg tablet,delayed 40 mg PO DAILYBB #30 tabs 03/30/17 01/11/23 release lisinopril 20 mg tablet 20 mg PO DAILY ##0 07/27/17 01/11/23 metoprolol succinate 100 mg 100 mg PO DAILY #0 tabs 07/27/17 01/11/23 tablet,extended release 24 hr oxycodone 5 mg tablet 5 mg PO Q6H PRN Severe Pain (Scale 08/16/20 01/11/23 Score 7-10) trazodone 50 mg tablet 25 mg PO HS 08/16/20 01/11/23 atorvastatin 40 mg tablet 20 mg PO DAILY 10/05/22 01/11/23 furosemide 40 mg tablet 40 mg PO QAM 10/05/22 01/11/23 potassium chloride 20 mEq 20 meq PO DAILY 10/05/22 01/11/23 tablet,extended release(part/cryst) albuterol sulfate 90 mcg/actuation 2 puff inhalation Q4H PRN 12/17/22 01/11/23 aerosol inhaler Shortness Of Breath Or Wheezing gabapentin 300 mg capsule 300 mg PO TID 12/17/22 01/11/23 hydroxyzine HCl 25 mg tablet 25 mg PO TID PRN Anxiety 12/17/22 01/11/23 ondansetron HCl 4 mg tablet 4 mg PO Q8H PRN Nausea 12/17/22 01/11/23 umeclidinium 62.5 mcg-vilanterol 1 inh inhalation DAILY 12/17/22 01/11/23 25 mcg/actuation powdr for inhalation (Anoro Ellipta) venlafaxine 75 mg capsule,extended 225 mg PO QAM 12/27/22 01/11/23 release 24 hr levetiracetam 500 mg tablet 500 mg PO AMHS 01/11/23 01/11/23 Previous Rx's Medication Instructions Recorded apixaban 5 mg tablet (Eliquis) 5 mg PO BID #60 tabs 12/19/22 clopidogrel 75 mg tablet 75 mg PO QAM #30 tabs 12/19/22 Results & Data (ED) Vital Signs Vital Signs - 24 hr 01/11/23 20:28 01/11/23 20:53 01/11/23 21:36 Temperature 31.2 C L Temperature Source Rectal Pulse Rate 87 Pulse Rate [Apical] 82 93 H Pulse Rate from SpO2 Sensor Respiratory Rate 16 20 22 Blood Pressure 114/92 Blood Pressure [Left Arm] 114/92 140/67 Blood Pressure Mean 99 Blood Pressure Mean [Left Arm] 99 91 Pulse Oximetry 98 100 100 Oxygen Delivery Method Room Air Room Air Room Air Sepsis Recent Fever Within 48 Hours Yes Sepsis New/Unexplained Change in Mental Status No Sepsis Action Taken by Nursing No Action Required 01/11/23 21:58 01/11/23 22:32 01/11/23 21:37 Temperature 33.9 C L Temperature Source Rectal Pulse Rate 81 Pulse Rate [Apical] 96 H Pulse Rate from SpO2 Sensor 88 Respiratory Rate 16 19 Blood Pressure Blood Pressure [Left Arm] 116/60 Blood Pressure Mean Blood Pressure Mean [Left Arm] 78 Pulse Oximetry 100 100 Oxygen Delivery Method Room Air Sepsis Recent Fever Within 48 Hours Sepsis New/Unexplained Change in Mental Status Sepsis Action Taken by Nursing 01/11/23 21:50 01/11/23 21:50 01/11/23 22:00 Temperature Temperature Source Pulse Rate 86 87 Pulse Rate [Apical] Pulse Rate from SpO2 Sensor 87 88 Respiratory Rate 17 18 Blood Pressure 104/53 L 104/53 L Blood Pressure [Left Arm] Blood Pressure Mean 70 70 Blood Pressure Mean [Left Arm] Pulse Oximetry 99 100 Oxygen Delivery Method Sepsis Recent Fever Within 48 Hours Sepsis New/Unexplained Change in Mental Status Sepsis Action Taken by Nursing 01/11/23 22:30 01/11/23 22:33 01/11/23 23:00 Temperature Temperature Source Pulse Rate 96 H 93 H 94 H Pulse Rate [Apical] Pulse Rate from SpO2 Sensor 97 H 93 H 98 H Respiratory Rate 19 19 20 Blood Pressure 116/60 Blood Pressure [Left Arm] Blood Pressure Mean 78 Blood Pressure Mean [Left Arm] Pulse Oximetry 100 100 100 Oxygen Delivery Method Sepsis Recent Fever Within 48 Hours Sepsis New/Unexplained Change in Mental Status Sepsis Action Taken by Nursing 01/11/23 23:00 Temperature Temperature Source Pulse Rate Pulse Rate [Apical] Pulse Rate from SpO2 Sensor Respiratory Rate Blood Pressure Blood Pressure [Left Arm] 96/62 L Blood Pressure Mean Blood Pressure Mean [Left Arm] 73 Pulse Oximetry Oxygen Delivery Method Sepsis Recent Fever Within 48 Hours Sepsis New/Unexplained Change in Mental Status Sepsis Action Taken by Long Term Medications Current Medication List: was personally reviewed by me Laboratory Data Attestation: I reviewed the patient's lab results. 01/11/23 20:45 01/11/23 20:45 Lab Results 01/11/23 01/11/23 01/11/23 Range/Units 20:45 20:45 20:45 WBC 16.38 H (4.8-10.8) K/ul RBC 3.48 L (4.20-5.40) M/uL Hgb 10.3 L (12.0-16.0) g/dl Hct 31.1 L (37.0-47.0) % MCV 89.4 (80.0-100.0) fL MCH 29.6 (25.0-34.0) pg MCHC 33.1 (32.0-36.0) g/dL RDW Std Deviation 52.3 H (36.4-46.3) fL RDW Coeff of Julia 16.1 H (11.5-14.5) % Plt Count 209 (130-400) K/uL MPV 11.6 (9.4-12.4) fL Immature Gran % (Auto) 0.6 % Neut % (Auto) 90.6 % Lymph % (Auto) 3.9 % Assumption % (Auto) 4.8 % Eos % (Auto) 0.0 % Baso % (Auto) 0.1 % Neut # (Auto) 14.84 H (1.40-6.50) K/uL Lymph # (Auto) 0.64 L (1.20-3.40) K/uL Assumption # (Auto) 0.78 H (0.11-0.59) K/uL Eos # (Auto) 0.00 (0.00-0.50) K/uL Baso # (Auto) 0.02 (0.00-0.20) K/uL Immature Gran # (Auto) 0.10 (0.01-0.20) K/uL Echinocytes 1+ APTT (21.0-31.0) Seconds PTT Ratio Sodium 142 (136-145) mmol/L Potassium 4.3 (3.5-5.1) mmol/L Chloride 102 (98-107) mmol/L Carbon Dioxide 14 L (21-32) mmol/L Anion Gap 26 H (3-11) BUN 181 H (6-23) mg/dl Creatinine 4.27 H (0.6-1.2) mg/dl Est Cr Clr Drug Dosing Not Reportable Est GFR ( Amer) 11.0 ml/min Est GFR (Non-Af Amer) 9.5 ml/min BUN/Creatinine Ratio 42.4 H (10-20) Glucose 98 (70-99(Fasting)) mg/dl Lactate 2.9 H* (0.4-2.0) mmol/L Calcium 9.7 (8.6-10.3) mg/dl Phosphorus 12.9 H (2.5-4.9) mg/dl Magnesium 3.2 H (1.7-2.4) mg/dl Total Bilirubin 0.7 (0.2-1.0) mg/dl Direct Bilirubin 0.1 (0-0.2) mg/dl AST 44 H (13-39) U/L ALT 19 (7-52) U/L Alkaline Phosphatase 66 (34-104) U/L Total Creatine Kinase 552 H (26-192) U/L Troponin I High Sens 63.7 H* (0-14) pg/ml Total Protein 6.9 (6.0-8.3) gm/dl Albumin 3.7 (3.4-5.0) gm/dl Procalcitonin (0-0.5) ng/ml TSH (0.300-4.500) uIu/ml Free T4 (0.61-1.60) ng/dl 01/11/23 01/11/23 01/11/23 Range/Units 20:45 20:45 20:45 WBC (4.8-10.8) K/ul RBC (4.20-5.40) M/uL Hgb (12.0-16.0) g/dl Hct (37.0-47.0) % MCV (80.0-100.0) fL MCH (25.0-34.0) pg MCHC (32.0-36.0) g/dL RDW Std Deviation (36.4-46.3) fL RDW Coeff of Julia (11.5-14.5) % Plt Count (130-400) K/uL MPV (9.4-12.4) fL Immature Gran % (Auto) % Neut % (Auto) % Lymph % (Auto) % Assumption % (Auto) % Eos % (Auto) % Baso % (Auto) % Neut # (Auto) (1.40-6.50) K/uL Lymph # (Auto) (1.20-3.40) K/uL Assumption # (Auto) (0.11-0.59) K/uL Eos # (Auto) (0.00-0.50) K/uL Baso # (Auto) (0.00-0.20) K/uL Immature Gran # (Auto) (0.01-0.20) K/uL Echinocytes APTT 30.3 (21.0-31.0) Seconds PTT Ratio 1.1 Sodium (136-145) mmol/L Potassium (3.5-5.1) mmol/L Chloride (98-107) mmol/L Carbon Dioxide (21-32) mmol/L Anion Gap (3-11) BUN (6-23) mg/dl Creatinine (0.6-1.2) mg/dl Est Cr Clr Drug Dosing Est GFR ( Amer) ml/min Est GFR (Non-Af Amer) ml/min BUN/Creatinine Ratio (10-20) Glucose (70-99(Fasting)) mg/dl Lactate (0.4-2.0) mmol/L Calcium (8.6-10.3) mg/dl Phosphorus (2.5-4.9) mg/dl Magnesium (1.7-2.4) mg/dl Total Bilirubin (0.2-1.0) mg/dl Direct Bilirubin (0-0.2) mg/dl AST (13-39) U/L ALT (7-52) U/L Alkaline Phosphatase (34-104) U/L Total Creatine Kinase (26-192) U/L Troponin I High Sens (0-14) pg/ml Total Protein (6.0-8.3) gm/dl Albumin (3.4-5.0) gm/dl Procalcitonin 0.22 (0-0.5) ng/ml TSH 0.092 L (0.300-4.500) uIu/ml Free T4 1.30 (0.61-1.60) ng/dl Administered Medications Glucose (Glucose 10 Tab/Tube) 4 - 8 tab PO UD PRN; Protocol PRN Reason: Hypoglycemia Treatment Stop: 02/10/23 23:10 Last Admin: 01/12/23 02:12 Dose: 4 tab Documented By: ULICES Lactated Ringer's (Lr) 1,000 mls @ 100 mls/hr IV .Q10H LISHA Stop: 01/13/23 09:59 Last Infusion: 01/12/23 11:59 Dose: 0 mls/hr Documented By: Admin: 01/12/23 10:08 Dose: 100 mls/hr Documented By: BRYON Piperacillin Sod/Tazobactam (Sod 4.5 gm/ Dextrose) 120 mls @ 30 mls/hr IV Q12H LISHA; Protocol Stop: 01/14/23 17:59 Last Infusion: 01/12/23 19:03 Dose: 30 mls/hr Documented By: Admin: 01/12/23 18:54 Dose: 30 mls/hr Documented By: ANSELMO Levetiracetam 250 mg/ Sodium (Chloride) 102.5 mls @ 420 mls/hr IV Q12H LISHA Stop: 02/11/23 10:44 Last Infusion: 01/12/23 11:59 Dose: 0 mls/hr Documented By: Admin: 01/12/23 11:25 Dose: 420 mls/hr Documented By: CROW Norepinephrine Bitartrate (Levophed/D5w) 4 mg in 250 mls @ 28.275 mls/hr IV .Q8H51M LISHA; Protocol Stop: 02/11/23 12:59 Last Titration: 01/12/23 19:08 Dose: 0.13 mcg/kg/min, 28.3 mls/hr Documented By: PATRICK Co-signed By: ANSELMO Titration: 01/12/23 19:03 Dose: 0.13 mcg/kg/min, 28.3 mls/hr Documented By: ANSELMO Co-signed By: PATRICK Titration: 01/12/23 18:54 Dose: 0.13 mcg/kg/min, 28.3 mls/hr Documented By: Titration: 01/12/23 18:37 Dose: 0.15 mcg/kg/min, 32.6 mls/hr Documented By: Titration: 01/12/23 17:12 Dose: 0.2 mcg/kg/min, 43.5 mls/hr Documented By: Titration: 01/12/23 16:32 Dose: 0.17 mcg/kg/min, 37 mls/hr Documented By: Titration: 01/12/23 14:26 Dose: 0.15 mcg/kg/min, 32.6 mls/hr Documented By: Titration: 01/12/23 14:20 Dose: 0.1 mcg/kg/min, 21.8 mls/hr Documented By: Admin: 01/12/23 14:05 Dose: 0.05 mcg/kg/min, 10.9 mls/hr Documented By: ANSELMO Co-signed By: DONA Parenteral Electrolytes (Plasma-Lyte A Ph 7.4) 1,000 mls @ 100 mls/hr IV .Q10H LISHA Stop: 02/11/23 16:29 Last Infusion: 01/12/23 19:03 Dose: 100 mls/hr Documented By: Admin: 01/12/23 16:53 Dose: 100 mls/hr Documented By: ANSELMO Vasopressin 20 units/ Sodium (Chloride) 101 mls @ 12.12 mls/hr IV .Q8H20M LISHA Stop: 02/11/23 16:44 Last Infusion: 01/12/23 19:08 Dose: 0.04 unit/min, 12.1 mls/hr Documented By: PATRICK Co-signed By: ANSELMO Infusion: 01/12/23 19:03 Dose: 0.04 unit/min, 12.1 mls/hr Documented By: ANSELMO Co-signed By: PATRICK Admin: 01/12/23 17:39 Dose: 0.04 unit/min, 12.1 mls/hr Documented By: ANSELMO Co-signed By: BRIAN Insulin Aspart (Insulin Aspart Per Unit Charge) 0 units SC ACHS LISHA Stop: 02/11/23 00:59 Last Admin: 01/12/23 15:35 Dose: Not Given Documented By: Admin: 01/12/23 12:37 Dose: Not Given Documented By: Admin: 01/12/23 08:29 Dose: Not Given Documented By: BRYON Co-signed By: COLLINS Admin: 01/12/23 01:21 Dose: Not Given Documented By: ULIECS Miscellaneous (Carbohydrates For Hypoglycemia ) 15 - 30 gm PO UD PRN PRN Reason: Hypoglycemia Protocol Stop: 02/10/23 23:10 Last Admin: 01/12/23 01:35 Dose: 15 gm Documented By: Admin: 01/12/23 01:19 Dose: 15 gm Documented By: ULICES Umeclidinium/Vilanterol (Umeclidinium/Vilanterol 62.5/25mcg 7 Puffs/Inhaler) 1 puffs INH DAILY LISHA Stop: 02/11/23 08:59 Last Admin: 01/12/23 10:07 Dose: Not Given Documented By: BRYON Venlafaxine HCl (Venlafaxine Hcl Xr 37.5 Mg Capxr) 112.5 mg PO QAM LISHA Stop: 02/11/23 08:59 Last Admin: 01/12/23 10:08 Dose: Not Given Documented By: BRYON Discontinued Medications Hydromorphone HCl (Hydromorphone Inj 0.5 Mg/0.5 Ml Syr) 0.25 mg IV Q4H PRN PRN Reason: Pain Stop: 01/25/23 23:08 Last Admin: 01/12/23 02:48 Dose: 0.25 mg Documented By: ULICES Sodium Chloride (Nss 1000ml) 1,000 mls @ 999 mls/hr IV .Q1H1M LISHA Stop: 01/11/23 21:45 Last Infusion: 01/11/23 21:56 Dose: 0 mls/hr Documented By: Admin: 01/11/23 20:50 Dose: 999 mls/hr Documented By: RICHARD Cefepime HCl (Maxipime) 2,000 mg in 20 mls @ 5 mls/min IV NOW STA; Protocol Stop: 01/11/23 20:45 Last Admin: 01/11/23 21:44 Dose: 5 mls/min Documented By: RICHARD Levetiracetam 1,000 mg/ Sodium (Chloride) 110 mls @ 440 mls/hr IV NOW STA Stop: 01/11/23 20:56 Last Infusion: 01/11/23 22:31 Dose: 0 mls/hr Documented By: Admin: 01/11/23 21:56 Dose: 440 mls/hr Documented By: RICHARD Sodium Chloride (Nss) 500 mls @ 999 mls/hr IV .Q31M ONE Stop: 01/11/23 21:40 Last Infusion: 01/11/23 22:31 Dose: 0 mls/hr Documented By: Admin: 01/11/23 21:43 Dose: 999 mls/hr Documented By: RICHARD Sodium Chloride (Nss) 500 mls @ 999 mls/hr IV .Q31M ONE Stop: 01/11/23 22:41 Last Infusion: 01/12/23 00:07 Dose: 0 mls/hr Documented By: Admin: 01/11/23 22:35 Dose: 999 mls/hr Documented By: RICHARD Lactated Ringer's (Lr) 1,000 mls @ 100 mls/hr IV .Q10H ONE Stop: 01/12/23 09:59 Last Infusion: 01/12/23 12:47 Dose: 0 mls/hr Documented By: Admin: 01/12/23 01:21 Dose: 100 mls/hr Documented By: ULICES Piperacillin Sod/Tazobactam (Sod 4.5 gm/ Dextrose) 120 mls @ 240 mls/hr IV NOW ONE; Protocol Stop: 01/12/23 10:29 Last Infusion: 01/12/23 12:00 Dose: 0 mls/hr Documented By: Admin: 01/12/23 11:23 Dose: 240 mls/hr Documented By: CROW Sodium Bicarbonate 150 meq/Potassium Chloride 20 meq/Dextrose 1,160 mls @ 125 mls/hr IV .Q9H17M STA Stop: 01/12/23 21:10 Last Infusion: 01/12/23 18:57 Dose: 0 mls/hr Documented By: Infusion: 01/12/23 16:32 Dose: 0 mls/hr Documented By: Admin: 01/12/23 12:38 Dose: 125 mls/hr Documented By: CROW Parenteral Electrolytes (Plasma-Lyte A Ph 7.4) 1,000 mls @ 999 mls/hr IV .Q1H1M ONE Stop: 01/12/23 15:58 Last Infusion: 01/12/23 16:32 Dose: 0 mls/hr Documented By: Admin: 01/12/23 15:28 Dose: 999 mls/hr Documented By: ANSELMO Hydrocortisone Sodium (Succinate 200 mg/ Syringe) 4 mls @ 4 mls/min IV NOW STA Stop: 01/12/23 15:11 Last Admin: 01/12/23 15:36 Dose: 4 mls/min Documented By: ANSELMO Levetiracetam (Levetiracetam 250 Mg Tab) 250 mg PO AMHS LISHA Stop: 02/11/23 08:59 Last Admin: 01/12/23 10:07 Dose: Not Given Documented By: BRYON Metoprolol Succinate (Metoprolol Succ 25mg Ext Rel Tab) 25 mg PO DAILY LISHA Stop: 02/11/23 08:59 Last Admin: 01/12/23 10:00 Dose: Not Given Documented By: BRYON Naloxone HCl (Naloxone Hcl 0.4 Mg/1 Ml Vial/Carp) 0.4 mg IV NOW STA Stop: 01/12/23 15:20 Last Admin: 01/12/23 15:28 Dose: 0.4 mg Documented By: ANSELMO Ondansetron HCl (Ondansetron Inj 2 Mg/Ml 2 Ml Vial) Confirm Administered Dose 4 mg .ROUTE .STK-MED ONE Stop: 01/11/23 21:45 Last Admin: 01/11/23 21:47 Dose: Not Given Documented By: RANDA Ondansetron HCl (Ondansetron Inj 2 Mg/Ml 2 Ml Vial) 4 mg IV NOW STA Stop: 01/11/23 21:48 Last Admin: 01/11/23 21:48 Dose: 4 mg Documented By: RANDA Oxycodone HCl (Oxycodone Hcl Ir 5 Mg Tab (Immediate Release)) 5 mg PO NOW STA Stop: 01/11/23 23:03 Last Admin: 01/11/23 23:08 Dose: 5 mg Documented By: ULICES Pantoprazole Sodium (Pantoprazole 40 Mg Tab) 40 mg PO DAILYBB LISHA Stop: 02/11/23 06:29 Last Admin: 01/12/23 10:07 Dose: Not Given Documented By: SM Sodium Bicarbonate (Sodium Bicarb 8.4% Inj 50 Meq/50 Ml Syr) 100 meq IV NOW STA Stop: 01/12/23 17:36 Last Admin: 01/12/23 17:40 Dose: 100 meq Documented By: ANSELMO Imaging Data Radiologist's Impression: Cervical Spine CT 01/11/23 20:42 Exam(s): CT C SPINE EXAM: CT Cervical Spine Without Intravenous Contrast CLINICAL HISTORY: Reason for exam: fall, L sided paraspinal TTP. TECHNIQUE: Axial computed tomography images of the cervical spine without intravenous contrast. Automated exposure control was utilized for the study. A dose lowering technique was utilized adhering to the principles of ALARA. COMPARISON: 09/30/2022 FINDINGS: No fracture or subluxations are noted. The vertebral body heights and alignment are preserved. No prevertebral soft tissue swelling. Note is made of multilevel cervical spondylosis with varying degrees of central canal and foramina stenoses. IMPRESSION: 1. No cervical fractures. 2. Cervical spondylosis with varying degrees of central canal and foramina stenoses. Electronically signed by: Garry Fields MD 01/11/23 22:04 PM Chest/Abdomen X-ray 01/11/23 20:42 PA CHEST RADIOGRAPH AND UPRIGHT AND SUPINE AP RADIOGRAPHS OF THE ABDOMEN CLINICAL HISTORY: Abdominal discomfort. COMPARISON STUDY: CT of the abdomen and pelvis and chest radiograph December 27, 2022. FINDINGS: Left subclavian pacer/AICD is in place. There is no pneumothorax or pleural effusion. There is no consolidation to suggest pneumonia. There is no evidence for pulmonary edema. There is no evidence for free air. The bowel gas pattern is normal. There are cholecystectomy clips. Amount of stool is within normal limits. IMPRESSION: 1. No free air or evidence for a bowel obstruction. 2. No acute cardiopulmonary findings. ACT 112: Negative or not required by law. Electronically signed by: Korey Cobb M.D. 01/12/2023 6:[address] 01/11/23 20:42 Exam(s): CT HEAD Without Contrast EXAM: CT Head Without Intravenous Contrast CLINICAL HISTORY: Reason for exam: fall. TECHNIQUE: Axial computed tomography images of the head/brain without intravenous contrast. Automated exposure control was utilized for the study. A dose lowering technique was utilized adhering to the principles of ALARA. COMPARISON: 12/18/2022 FINDINGS: Brain: Mild ischemic microangiopathy. Age appropriate cerebral volume loss. No hemorrhage. Ventricles: Unremarkable. No ventriculomegaly. Bones/joints: Unremarkable. No acute fracture. Soft tissues: Unremarkable. Sinuses: Unremarkable as visualized. No acute sinusitis. Mastoid air cells: Unremarkable as visualized. No mastoid effusion. Oropharynx: Asymmetric enlargement of the right palatine tonsil is uncertain etiology. IMPRESSION: 1. Head CT negative for acute intracranial abnormality 2. Asymmetric enlargement of the right palatine tonsil this is of uncertain etiology underlying mass cannot be excluded. This is unchanged when compared with the prior exam. Electronically signed by: Garry Fields MD 01/11/23 21:54 PM Abdomen/Pelvis CT 01/11/23 23:02 Exam(s): CT ABDOMEN + PELVIS Without Contrast EXAM: CT Abdomen and Pelvis Without Intravenous Contrast CLINICAL HISTORY: Reason for exam: abd pain. TECHNIQUE: Axial computed tomography images of the abdomen and pelvis without intravenous contrast. CTDI is 10.96 mGy and DLP is 485.26 mGy-cm. Automated exposure control was utilized for the study. A dose lowering technique was utilized adhering to the principles of ALARA. COMPARISON: 12/27/2022 FINDINGS: Lung bases: Unremarkable. No mass. No consolidation. ABDOMEN: Liver: Unremarkable. Gallbladder and bile ducts: Postoperative changes prior cholecystectomy. No ductal dilation. Pancreas: Unremarkable. No ductal dilation. Spleen: Unremarkable. No splenomegaly. Adrenals: Unremarkable. No mass. Kidneys and ureters: Nonobstructing right renal calculi. No hydronephrosis. 1.5 cm hypodensity projecting off the lower pole left kidney. Stomach and bowel: Unremarkable. No obstruction. No mucosal thickening. PELVIS: Appendix: No findings to suggest acute appendicitis. Bladder: Unremarkable. No stones. Reproductive: Unremarkable as visualized. ABDOMEN and PELVIS: Intraperitoneal space: Unremarkable. No significant fluid collection. No free air or intestinal obstruction. Bones/joints: No acute fracture. No dislocation. Soft tissues: Unremarkable. Vasculature: Unremarkable. No abdominal aortic aneurysm. Lymph nodes: Unremarkable. No enlarged lymph nodes. IMPRESSION: 1. 1.5 cm hypodensity projecting of the lower pole left kidney is greater than fluid density and may represent a complicated cyst. Renal ultrasound recommended for further evaluation 2. Postoperative changes prior cholecystectomy Electronically signed by: Garry Fields MD 01/12/23 01:32 AM Discharge Plan Visit Data Chief Complaint: Seizure ED Provider: Kilo Osorio Discharge Problem: ARF (acute renal failure), Elevated troponin, Dehydration, Weakness, Atrial fibrillation with RVR Patient Disposition: Admitted As Inpatient Discharge Instructions Interventions: ED Discharge Assessment Last Done: 01/12/23 01:41
[2023-01-11] MEDS ORDERED: levETIRAcetam 1,000 MG in 0.9 % SODIUM CHLORIDE 100 ML IV STA (20:42)
[2023-01-11] MEDS ORDERED: CEFEPIME 2,000 MG/20 ML VIAL IV STA (20:42)
[2023-01-11] MEDS ORDERED: SODIUM CHLORIDE 0.9% 1,000 ML IV SCH (20:45)
[2023-01-11] MEDS ORDERED: SODIUM CHLORIDE 0.9% 500 ML IV ONE ×2 (21:10→22:11)
[2023-01-11 21:42] LABS: Hematocrit (blood only) 31.1 % (37.0-47.0); Hemoglobin 10.3 g/dl (12.0-16.0); Mean Corpuscular Hemoglobin 29.6 pg (25.0-34.0); Mean Corpuscular Hgb Conc 33.1 g/dL (32.0-36.0); Mean Corpuscular Volume 89.4 fL (80.0-100.0); Mean Platelet Volume 11.6 fL (9.4-12.4); Platelet Count 209 K/uL (130-400); RDW Coefficient of Variation 16.1 % (11.5-14.5); RDW Standard Deviation 52.3 fL (36.4-46.3); Red Blood Count 3.48 M/uL (4.20-5.40); White Blood Count 16.38 K/ul (4.8-10.8)
[2023-01-11] MEDS ORDERED: ONDANSETRON INJ 2 MG/ML 2 ML VIAL ONE (21:44)
[2023-01-11] MEDS ORDERED: ONDANSETRON INJ 2 MG/ML 2 ML VIAL IV STA (21:47)
[2023-01-11 21:53] LABS: Alanine Aminotransferase 19 U/L (7-52); Albumin Level 3.7 gm/dl (3.4-5.0); Alkaline Phosphatase 66 U/L (34-104); Anion Gap 26 (3-11); Aspartate Aminotransferase 44 U/L (13-39); Bilirubin Direct 0.1 mg/dl (0-0.2); Bilirubin,Total 0.7 mg/dl (0.2-1.0); Calcium 9.7 mg/dl (8.6-10.3); Carbon Dioxide 14 mmol/L (21-32); Chloride 102 mmol/L (98-107); Creatine Kinase 552 U/L (26-192); Est GFR (Non-African American) 9.5 ml/min; Glucose 98 mg/dl (70-99(Fasting)); Magnesium 3.2 mg/dl (1.7-2.4); Phosphorus 12.9 mg/dl (2.5-4.9); Potassium 4.3 mmol/L (3.5-5.1); Sodium 142 mmol/L (136-145); Total Protein 6.9 gm/dl (6.0-8.3); Troponin I High Sensitivity 63.7 pg/ml (0-14)
--- NOTE | 2023-01-11 21:55 | CT Scan Report ---
Exam(s): CT HEAD Without Contrast EXAM: CT Head Without Intravenous Contrast CLINICAL HISTORY: Reason for exam: fall. TECHNIQUE: Axial computed tomography images of the head/brain without intravenous contrast. Automated exposure control was utilized for the study. A dose lowering technique was utilized adhering to the principles of ALARA. COMPARISON: 12/18/2022 FINDINGS: Brain: Mild ischemic microangiopathy. Age appropriate cerebral volume loss. No hemorrhage. Ventricles: Unremarkable. No ventriculomegaly. Bones/joints: Unremarkable. No acute fracture. Soft tissues: Unremarkable. Sinuses: Unremarkable as visualized. No acute sinusitis. Mastoid air cells: Unremarkable as visualized. No mastoid effusion. Oropharynx: Asymmetric enlargement of the right palatine tonsil is uncertain etiology. IMPRESSION: 1. Head CT negative for acute intracranial abnormality 2. Asymmetric enlargement of the right palatine tonsil this is of uncertain etiology underlying mass cannot be excluded. This is unchanged when compared with the prior exam. Electronically signed by: Garry Fields MD 01/11/23 21:54 PM
[2023-01-11 21:57] LABS: BUN Creatinine Ratio 42.4 (10-20); Blood Urea Nitrogen 181 mg/dl (6-23)
--- NOTE | 2023-01-11 22:05 | CT Scan Report ---
Exam(s): CT C SPINE EXAM: CT Cervical Spine Without Intravenous Contrast CLINICAL HISTORY: Reason for exam: fall, L sided paraspinal TTP. TECHNIQUE: Axial computed tomography images of the cervical spine without intravenous contrast. Automated exposure control was utilized for the study. A dose lowering technique was utilized adhering to the principles of ALARA. COMPARISON: 09/30/2022 FINDINGS: No fracture or subluxations are noted. The vertebral body heights and alignment are preserved. No prevertebral soft tissue swelling. Note is made of multilevel cervical spondylosis with varying degrees of central canal and foramina stenoses. IMPRESSION: 1. No cervical fractures. 2. Cervical spondylosis with varying degrees of central canal and foramina stenoses. Electronically signed by: Garry Fields MD 01/11/23 22:04 PM
[2023-01-11 22:14] LABS: Basophils # (auto) 0.02 K/uL (0.00-0.20); Basophils % (auto) 0.1 %; Echinocytes 1+; Immature Granulocytes % (auto) 0.6 %; Lymphocytes # (auto) 0.64 K/uL (1.20-3.40); Lymphocytes % (auto) 3.9 %; Monocytes # (auto) 0.78 K/uL (0.11-0.59); Monocytes % (auto) 4.8 %; Neutrophils # (auto) 14.84 K/uL (1.40-6.50); Neutrophils % (auto) 90.6 %
[2023-01-11] MEDS ORDERED: oxyCODONE HCL IR 5 MG TAB (IMMEDIATE RELEASE) PO STA (23:02)
--- NOTE | 2023-01-11 23:03 | History & Physical Report ---
Date of Service January 11, 2023 Assessment & Plan (1) ARF (acute renal failure): Plan: Secondary to rhabdomyolysis Recurrent A-fib secondary to illness, patient currently paced rhythm History A-fib on outpatient device interrogation Troponin elevation secondary to above Hypothermia secondary to illness chronic systolic/diastolic heart failure status post ICD ( EF of 60%, TTE 2022), patient on the dry side hx CAD status post stent/hx CVA chronic LBBB valvular heart disease (mild AR/MR/TR) AAA, stable at 3 cm measurement as of 2022 outpatient aortic duplex HTN, BP on the lower side hyperlipidemia, on statin Rx hx COPD, lung status at baseline DM2 diet-controlled, well-controlled as of recent hemoglobin A1c of 6.22 October 2022 HCV status post tx chronic anemia, hemoglobin at baseline history of DVT (09/2022) Eliquis Rx currently on hold as per PCP note due to LGIB concerns, 3 months have elapsed since discovery of DVT seizure disorder on Keppra Rx, breakthrough seizure secondary to missed medications R nasopharyngeal mass, outpatient ENT consult contemplated chronic pain Left renal cyst on CT ongoing tobacco abuse possible functional disability given recurrent admissions/patient current living situation detrimental to receiving important communications in PCP's office (e.g. message to hold Eliquis) Medical telemetry given troponin elevation and PAF Baseline UA monitor CPK, creatinine response to IVF Appropriate to hold home diuretic, lisinopril for now until creatinine back to baseline Dose neuropsychotropic medication for current renal function Warming blanket for hypothermia CS, hold off on antibiotics until definite source of bacterial infection found. TTE, Cardiology consult RE recurrent AF Device interrogation Hold antiplatelet and Eliquis Rx for now given LGIB Decision to resume Eliquis for PAF thromboembolic prophylaxis needs to be carefully weighed given patient individual circumstance. ISS BG goal 1 10-1 40, carb count coverage Renal ultrasound for further investigation of left renal cyst as per recommendation Nicotine patch as needed PT OT eval DVT prophylaxis. SCDs Re: Possible LGIB Full code Attempted to contact multiple family members to coordinate care given patient's probable functional disability. Phone numbers unable to receive messages. Mr. Earl Tong (son), contact #[phone]. Ms. Lacy Tong (daughter), contact # [phone]. Ms. Nadiya Tong (daughter), contact #[phone]. Text document was generated using [employer] voice recognition software. It may contain grammatical or spelling errors. Kindly contact undersigned for clarification of any documentation item in question. History of Present Illness Chief Complaint: Fall Primary Care Provider: Roman Ennis MD History obtained from patient and records. Medical history significant for chronic systolic/diastolic heart failure status post ICD ( EF of 60%, TTE 2022), CAD status post stent, hx CVA, chronic LBBB, valvular heart disease (mild AR/MR/TR), PAF, AAA, hypertension, hyperlipidemia, COPD, DM2 diet-controlled, HCV status post tx, chronic anemia (baseline hemoglobin of 9-10), history of DVT (Eliquis Rx currently on hold as per PCP note), seizure disorder on Keppra Rx, right nasopharyngeal mass, chronic pain, ongoing tobacco abuse. Two admissions since last month. Recent confinement 2 weeks ago for COPD exacerbation. Patient seen at PCPs office on follow-up visit last week. Concern for hematochezia. Patient complaining of upper abdominal pain. Outpatient FOBT positive. Outpatient provider messaged case consultant to contact patient to go for lab work and stop Eliquis interim. Office unable to contact patient/family due to unanswered calls as per outpatient documentation. Patient unaware of instructions to hold Eliquis. Poor appetite the last few days. Patient increasingly weak. Usual pain in toes of the left foot for which patient is supposed to see a manager golf. Outpatient arterial duplex June 2022 negative for vascular disease. Patient fell at garage in her home today. Unable to get up. Patient denies headache, chest pain, SOB. Later found by granddaughter who witnessed seizure activity lasting for a minute. Patient has not been able to take Keppra in the last couple of days as per report. Patient brought to the ER for evaluation. Patient to be in rapid A-fib on EKG done at the ER. IV cefepime administered at the ER. 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 Allergies Allergy/AdvReac Type Severity Reaction Status Date / Time NSAIDS (Non-Steroidal AdvReac Severe GI ISSUES Verified 12/17/22 20:25 Anti-Inflamma Ncnwknq-NHC-AvB Reductase AdvReac Severe LIVER Verified 12/17/22 20:25 Inhibitor FUNCTION [Whdyoml-Xjx-Spq Reductase ELEVATES Inhibitor] isosorbide AdvReac Intermediate VOMIT/HEADA Verified 12/17/22 20:25 CARLOS tramadol AdvReac Intermediate VOMITING Verified 12/17/22 20:25 Home Medications Medication Instructions Recorded Confirmed Type clonidine HCl 0.1 mg tablet 0.05 mg PO QAM #0 tabs 03/30/17 01/11/23 History nitroglycerin 0.4 mg sublingual 0.4 mg sublingual DIRECTED PRN 03/30/17 01/11/23 History tablet Chest Pain #0 BTLS pantoprazole 40 mg tablet,delayed 40 mg PO DAILYBB #30 tabs 03/30/17 01/11/23 History release lisinopril 20 mg tablet 20 mg PO DAILY ##0 07/27/17 01/11/23 History metoprolol succinate 100 mg 100 mg PO DAILY #0 tabs 07/27/17 01/11/23 History tablet,extended release 24 hr oxycodone 5 mg tablet 5 mg PO Q6H PRN Severe Pain (Scale 08/16/20 01/11/23 History Score 7-10) trazodone 50 mg tablet 25 mg PO HS 08/16/20 01/11/23 History atorvastatin 40 mg tablet 20 mg PO DAILY 10/05/22 01/11/23 History furosemide 40 mg tablet 40 mg PO QAM 10/05/22 01/11/23 History potassium chloride 20 mEq 20 meq PO DAILY 10/05/22 01/11/23 History tablet,extended release(part/cryst) albuterol sulfate 90 mcg/actuation 2 puff inhalation Q4H PRN 12/17/22 01/11/23 History aerosol inhaler Shortness Of Breath Or Wheezing gabapentin 300 mg capsule 300 mg PO TID 12/17/22 01/11/23 History hydroxyzine HCl 25 mg tablet 25 mg PO TID PRN Anxiety 12/17/22 01/11/23 History ondansetron HCl 4 mg tablet 4 mg PO Q8H PRN Nausea 12/17/22 01/11/23 History umeclidinium 62.5 mcg-vilanterol 1 inh inhalation DAILY 12/17/22 01/11/23 History 25 mcg/actuation powdr for inhalation (Anoro Ellipta) apixaban 5 mg tablet (Eliquis) 5 mg PO BID #60 tabs 12/19/22 01/11/23 Rx clopidogrel 75 mg tablet 75 mg PO QAM #30 tabs 12/19/22 01/11/23 Rx venlafaxine 75 mg capsule,extended 225 mg PO QAM 12/27/22 01/11/23 History release 24 hr levetiracetam 500 mg tablet 500 mg PO AMHS 01/11/23 01/11/23 History Past Med/Surg History Medical History Acute anterior wall [place] Anxiety CAD (coronary artery disease) "[place] 2006. S/P PCI/Stent RCA" Chronic hepatitis C without hepatic coma Chronic pain CKD (chronic kidney disease), stage III COPD, group C, by GOLD 2017 classification Elevated troponin GERD (gastroesophageal reflux disease) H/O cardiac pacemaker HTN (hypertension) Hyperlipidemia Hypoxia Ischemic cardiomyopathy LBBB (left bundle branch block) Migraine OA (osteoarthritis) Respiratory acidosis Surgical History H/O release of tendon H/O: hysterectomy History of carpal tunnel surgery History of implantable cardioverter-defibrillator (ICD) placement Hx of cataract surgery S/P cardiac cath S/P cholecystectomy Family History Father , age 81 of lung cancer Prostate cancer Heart disease Thyroid disorder Lung cancer Mother , age 80 with COPD Cancer Cervical Coronary heart disease s/p CABG Diabetes COPD (chronic obstructive pulmonary disease) Social History Smoking Status: Current every day smoker Tobacco Type: Cigarettes Age Started Using Tobacco: 23; packs per day: 0.5; Cigarettes Per Day: 4; Second Hand Exposure: No; Do You Dip or Chew Tobacco: No; Hx Alcohol Use: No Hx Substance Use: No Preferred Language: Swedish Communication Ability: Effective Cutting Pressman Required: No Beliefs That Will Affect Care: None Current Living Situation: Alone current occupational status: retired 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 Feels Safe at Home: Yes Assistive Devices: None Review of Systems Review of Systems: As per HPI, all other systems reviewed and negative Physical Exam Physical Exam: GENERAL: uncomfortable, no respiratory distress SKIN: Pallor, warm HEENT: Pale palpebral conjunctivae, no ptosis, dry buccal mucosa NECK : Supple, no tenderness CHEST : Decreased breath sounds, no tenderness HEART : RRR, no obvious murmurs ABDOMEN: Some distention, minimal epigastric tenderness EXTREMITIES : no LE swelling, no LE tenderness, no other conspicuous deformities noted NEUROLOGIC : Coherent, no facial asymmetry, slightly hard of hearing, gait and stance not assessed Results & Data Results & Data Vital Signs (Past 12 Hours) Vital Signs Temp Pulse Pulse Resp BP BP Pulse Ox 01/11/23 22:32 33.9 C L 96 H 16 116/60 100 01/11/23 21:58 81 01/11/23 21:36 93 H 22 140/67 100 01/11/23 20:53 82 20 114/92 100 01/11/23 20:28 31.2 C L 87 16 114/92 98 O2 Del Method 01/11/23 22:32 Room Air 01/11/23 21:58 01/11/23 21:36 Room Air 01/11/23 20:53 Room Air 01/11/23 20:28 Room Air Laboratory Results Laboratory Results WBC 16.38 K/ul (4.8-10.8) H 01/11/23 20:45 RBC 3.48 M/uL (4.20-5.40) L 01/11/23 20:45 Hgb 10.3 g/dl (12.0-16.0) L 01/11/23 20:45 Hct 31.1 % (37.0-47.0) L 01/11/23 20:45 MCV 89.4 fL (80.0-100.0) 01/11/23 20:45 MCH 29.6 pg (25.0-34.0) 01/11/23 20:45 MCHC 33.1 g/dL (32.0-36.0) 01/11/23 20:45 RDW Std Deviation 52.3 fL (36.4-46.3) H 01/11/23 20:45 RDW Coeff of Julia 16.1 % (11.5-14.5) H 01/11/23 20:45 Plt Count 209 K/uL (130-400) 01/11/23 20:45 MPV 11.6 fL (9.4-12.4) 01/11/23 20:45 Immature Gran % (Auto) 0.6 % 01/11/23 20:45 Neut % (Auto) 90.6 % 01/11/23 20:45 Lymph % (Auto) 3.9 % 01/11/23 20:45 [place] % (Auto) 4.8 % 01/11/23 20:45 Eos % (Auto) 0.0 % 01/11/23 20:45 Baso % (Auto) 0.1 % 01/11/23 20:45 Neut # (Auto) 14.84 K/uL (1.40-6.50) H 01/11/23 20:45 Lymph # (Auto) 0.64 K/uL (1.20-3.40) L 01/11/23 20:45 [place] # (Auto) 0.78 K/uL (0.11-0.59) H 01/11/23 20:45 Eos # (Auto) 0.00 K/uL (0.00-0.50) 01/11/23 20:45 Baso # (Auto) 0.02 K/uL (0.00-0.20) 01/11/23 20:45 Immature Gran # (Auto) 0.10 K/uL (0.01-0.20) 01/11/23 20:45 Echinocytes 1+ 01/11/23 20:45 Sodium 142 mmol/L (136-145) 01/11/23 20:45 Potassium 4.3 mmol/L (3.5-5.1) 01/11/23 20:45 Chloride 102 mmol/L (98-107) 01/11/23 20:45 Carbon Dioxide 14 mmol/L (21-32) L 01/11/23 20:45 Anion Gap 26 (3-11) H 01/11/23 20:45 BUN 181 mg/dl (6-23) H 01/11/23 20:45 Creatinine 4.27 mg/dl (0.6-1.2) H 01/11/23 20:45 Est Cr Clr Drug Dosing Not Reportable 01/11/23 20:45 Est GFR ( Amer) 11.0 ml/min 01/11/23 20:45 Est GFR (Non-Af Amer) 9.5 ml/min 01/11/23 20:45 BUN/Creatinine Ratio 42.4 (10-20) H 01/11/23 20:45 Glucose 98 mg/dl (70-99(Fasting)) 01/11/23 20:45 Lactate 2.9 mmol/L (0.4-2.0) H* 01/11/23 20:45 Calcium 9.7 mg/dl (8.6-10.3) 01/11/23 20:45 Phosphorus 12.9 mg/dl (2.5-4.9) H 01/11/23 20:45 Magnesium 3.2 mg/dl (1.7-2.4) H 01/11/23 20:45 Total Bilirubin 0.7 mg/dl (0.2-1.0) 01/11/23 20:45 Direct Bilirubin 0.1 mg/dl (0-0.2) 01/11/23 20:45 AST 44 U/L (13-39) H 01/11/23 20:45 ALT 19 U/L (7-52) 01/11/23 20:45 Alkaline Phosphatase 66 U/L (34-104) 01/11/23 20:45 Total Creatine Kinase 552 U/L (26-192) H 01/11/23 20:45 Troponin I High Sens 63.7 pg/ml (0-14) H* 01/11/23 20:45 Total Protein 6.9 gm/dl (6.0-8.3) 01/11/23 20:45 Albumin 3.7 gm/dl (3.4-5.0) 01/11/23 20:45 Procalcitonin 0.22 ng/ml (0-0.5) 01/11/23 20:[address] 01/11/23 20:42 Exam(s): CT C SPINE EXAM: CT Cervical Spine Without Intravenous Contrast CLINICAL HISTORY: Reason for exam: fall, L sided paraspinal TTP. TECHNIQUE: Axial computed tomography images of the cervical spine without intravenous contrast. Automated exposure control was utilized for the study. A dose lowering technique was utilized adhering to the principles of ALARA. COMPARISON: 09/30/2022 FINDINGS: No fracture or subluxations are noted. The vertebral body heights and alignment are preserved. No prevertebral soft tissue swelling. Note is made of multilevel cervical spondylosis with varying degrees of central canal and foramina stenoses. IMPRESSION: 1. No cervical fractures. 2. Cervical spondylosis with varying degrees of central canal and foramina stenoses. Electronically signed by: Garry Fields MD 01/11/23 22:[address] 01/11/23 20:42 Exam(s): CT HEAD Without Contrast EXAM: CT Head Without Intravenous Contrast CLINICAL HISTORY: Reason for exam: fall. TECHNIQUE: Axial computed tomography images of the head/brain without intravenous contrast. Automated exposure control was utilized for the study. A dose lowering technique was utilized adhering to the principles of ALARA. COMPARISON: 12/18/2022 FINDINGS: Brain: Mild ischemic microangiopathy. Age appropriate cerebral volume loss. No hemorrhage. Ventricles: Unremarkable. No ventriculomegaly. Bones/joints: Unremarkable. No acute fracture. Soft tissues: Unremarkable. Sinuses: Unremarkable as visualized. No acute sinusitis. Mastoid air cells: Unremarkable as visualized. No mastoid effusion. Oropharynx: Asymmetric enlargement of the right palatine tonsil is uncertain etiology. IMPRESSION: 1. Head CT negative for acute intracranial abnormality 2. Asymmetric enlargement of the right palatine tonsil this is of uncertain etiology underlying mass cannot be excluded. This is unchanged when compared with the prior exam. Electronically signed by: Garry Fields MD 01/11/23 21:[address] Abdomen pelvis: 1. 1.5 cm hypodensity projecting of the lower pole left kidney is greater than fluid density and may represent a complicated cyst. Renal ultrasound recommended for further evaluation 2. Postoperative changes prior cholecystectomy Diagnostic Findings EKG as per my interpretation :Rate 150, A-fib, LAD, LAFB, inferior infarct
[2023-01-11] MEDS ORDERED: HYDROmorphone INJ 0.5 MG/0.5 ML SYR IV PRN (23:09)
[2023-01-11] MEDS ORDERED: PROMETHAZINE HCL 6.25 MG in SODIUM CHLORIDE 0.9% 50 ML IV PRN (23:09)
[2023-01-11] MEDS ORDERED: hydrOXYzine HCl 10 MG TAB PO PRN (23:09)
[2023-01-11] MEDS ORDERED: oxyCODONE HCL IR 5 MG TAB (IMMEDIATE RELEASE) PO PRN (23:09)
[2023-01-11 23:11] LABS: Partial Thromboplastin Ratio 1.1; Partial Thromboplastin Time 30.3 Seconds (21.0-31.0)
[2023-01-11] MEDS ORDERED: DEXTROSE 50% 50 ML SYRINGE IV PRN (23:11)
[2023-01-11] MEDS ORDERED: GLUCOSE 10 TAB/TUBE PO PRN (23:11)
[2023-01-11] MEDS ORDERED: GLUCAGON FOR INJ 1 MG VIAL SQ PRN (23:11)
[2023-01-11] MEDS ORDERED: GLUCOSE 40% GEL 15 GM TUBE PO PRN (23:11)
[2023-01-11 23:30] LABS: Thyroid Stimulating Hormone 0.092 uIu/ml (0.300-4.500)
[2023-01-11 23:56] LABS: Appearance Urine Clear (Clear); Bacteria Urine Automated Negative (Negative); Bilirubin Urine Negative (Negative); Blood Urine 1+ (Negative); Color Urine Yellow; Glucose Urine UA Negative (Negative); Ketones Urine Negative (Negative); Leukocyte Esterase Urine Negative (Negative); Nitrite Urine Negative (Negative); Protein Urine Trace (Negative); Specific Gravity Urine 1.014 (1.000-1.030); Urobilinogen Urine Negative (Negative)
[2023-01-12] MEDS ORDERED: LACTATED RINGER'S 1,000 ML IV ONE
[2023-01-12 00:05] LABS: BUN Creatinine Ratio 42.2 (10-20); Calcium 8.2 mg/dl (8.6-10.3); Est GFR (Non-African American) 10.4 ml/min; Phosphorus 10.7 mg/dl (2.5-4.9); Potassium 4.2 mmol/L (3.5-5.1); Troponin I High Sensitivity 56.1 pg/ml (0-14)
[2023-01-12 00:26] LABS: RBC Urine Automated 0-4 /hpf (0-4)
[2023-01-12 00:26] LABS: T4 Free Thyroxine 1.3 ng/dl (0.61-1.60)
[2023-01-12] MEDS: CARBOHYDRATES FOR HYPOGLYCEMIA PO PRN ×2 (01:19→01:35)
[2023-01-12] MEDS: INSULIN ASPART PER UNIT CHARGE SC SCH ×5 (01:21→20:35)
--- NOTE | 2023-01-12 01:33 | CT Scan Report ---
Exam(s): CT ABDOMEN + PELVIS Without Contrast EXAM: CT Abdomen and Pelvis Without Intravenous Contrast CLINICAL HISTORY: Reason for exam: abd pain. TECHNIQUE: Axial computed tomography images of the abdomen and pelvis without intravenous contrast. CTDI is 10.96 mGy and DLP is 485.26 mGy-cm. Automated exposure control was utilized for the study. A dose lowering technique was utilized adhering to the principles of ALARA. COMPARISON: 12/27/2022 FINDINGS: Lung bases: Unremarkable. No mass. No consolidation. ABDOMEN: Liver: Unremarkable. Gallbladder and bile ducts: Postoperative changes prior cholecystectomy. No ductal dilation. Pancreas: Unremarkable. No ductal dilation. Spleen: Unremarkable. No splenomegaly. Adrenals: Unremarkable. No mass. Kidneys and ureters: Nonobstructing right renal calculi. No hydronephrosis. 1.5 cm hypodensity projecting off the lower pole left kidney. Stomach and bowel: Unremarkable. No obstruction. No mucosal thickening. PELVIS: Appendix: No findings to suggest acute appendicitis. Bladder: Unremarkable. No stones. Reproductive: Unremarkable as visualized. ABDOMEN and PELVIS: Intraperitoneal space: Unremarkable. No significant fluid collection. No free air or intestinal obstruction. Bones/joints: No acute fracture. No dislocation. Soft tissues: Unremarkable. Vasculature: Unremarkable. No abdominal aortic aneurysm. Lymph nodes: Unremarkable. No enlarged lymph nodes. IMPRESSION: 1. 1.5 cm hypodensity projecting of the lower pole left kidney is greater than fluid density and may represent a complicated cyst. Renal ultrasound recommended for further evaluation 2. Postoperative changes prior cholecystectomy Electronically signed by: Garry Fields MD 01/12/23 01:32 AM
[2023-01-12 04:25] LABS: Hematocrit (blood only) 26.9 % (37.0-47.0); Hemoglobin 8.9 g/dl (12.0-16.0); Mean Corpuscular Hemoglobin 29.5 pg (25.0-34.0); Mean Corpuscular Hgb Conc 33.1 g/dL (32.0-36.0); Mean Corpuscular Volume 89.1 fL (80.0-100.0); Mean Platelet Volume 11.9 fL (9.4-12.4); Platelet Count 160 K/uL (130-400); RDW Coefficient of Variation 16.5 % (11.5-14.5); RDW Standard Deviation 53.6 fL (36.4-46.3); Red Blood Count 3.02 M/uL (4.20-5.40); White Blood Count 16.93 K/ul (4.8-10.8)
[2023-01-12 04:54] LABS: BUN Creatinine Ratio 42.2 (10-20); Calcium 8.3 mg/dl (8.6-10.3); Creatinine Clr Calc Pharmacy 10.3 ml/min; Est GFR (African American) 12.5 ml/min; Est GFR (Non-African American) 10.8 ml/min; Potassium 3.9 mmol/L (3.5-5.1)
[2023-01-12 04:55] LABS: Basophils # (auto) 0.02 K/uL (0.00-0.20); Basophils % (auto) 0.1 %; Echinocytes 1+; Immature Granulocytes # (auto) 0.13 K/uL (0.01-0.20); Immature Granulocytes % (auto) 0.8 %; Lymphocytes # (auto) 0.64 K/uL (1.20-3.40); Lymphocytes % (auto) 3.8 %; Monocytes # (auto) 0.86 K/uL (0.11-0.59); Monocytes % (auto) 5.1 %; Neutrophils # (auto) 15.28 K/uL (1.40-6.50); Neutrophils % (auto) 90.2 %; Polychromasia 1+
[2023-01-12] MEDS ORDERED: PANTOprazole 40 MG TAB PO SCH (06:30)
--- NOTE | 2023-01-12 06:46 | XRay Report ---
PA CHEST RADIOGRAPH AND UPRIGHT AND SUPINE AP RADIOGRAPHS OF THE ABDOMEN CLINICAL HISTORY: Abdominal discomfort. COMPARISON STUDY: CT of the abdomen and pelvis and chest radiograph December 27, 2022. FINDINGS: Left subclavian pacer/AICD is in place. There is no pneumothorax or pleural effusion. There is no consolidation to suggest pneumonia. There is no evidence for pulmonary edema. There is no evid ence for free air. The bowel gas pattern is normal. There are cholecystectomy clips. Amount of stool is within normal limits. IMPRESSION: 1. No free air or evidence for a bowel obstruction. 2. No acute cardiopulmonary findings. ACT 112: Negative or not required by law. Electronically signed by: Korey Cobb M.D. 01/12/2023 6:44 AM
[2023-01-12] MEDS ORDERED: levETIRAcetam 250 MG TAB PO SCH (09:00)
[2023-01-12] MEDS ORDERED: levETIRAcetam 500 MG TAB PO SCH (09:00)
[2023-01-12] MEDS ORDERED: VENLAFAXINE HCL XR 37.5 MG CAPXR PO SCH (09:00)
[2023-01-12] MEDS ORDERED: METOPROLOL SUCC 25MG EXT REL TAB PO SCH (09:00)
--- NOTE | 2023-01-12 09:10 | Cardiology Consultation ---
Date of Consultation January 12, 2023 Assessment & Plan (1) ARF (acute renal failure): (2) Rhabdomyolysis: (3) Acute dehydration: (4) Elevated troponin: Plan 1. Interrogate device. [employer] client relations representative personally contacted. Device is NOT MR Conditional. 2. Refer for resting echocardiography 3. Continue beta-ann-marie therapy for heart rate control, as blood pressure permits, adding digoxin if needed for rate control 4. Resume anticoagulation (Eliquis) and antiplatelet therapy (Clopidogrel) when determined to be safe 5. Hold furosemide, lisinopril, clonidine, and atorvastatin secondary to acute renal dysfunction, dehydration, hypotension, mild rhabdomyolysis 6. Maintain telemetry Supervising Physician Co-Signing Physician Notes Patient seen and examined at the bedside. Vasopressor therapy initiated in ICU due to hypotension. Patient responds to verbal stimuli. Denies chest pain or shortness of breath. Remains somnolent. Patient fell in her garage yesterday and was unable to get up. On ground for at least 24 hours per review of records. Found by her granddaughter who witnessed seizure activity lasting more than 1 minute. Noncompliance with Keppra noted. Rapid atrial fibrillation on admission. PE: Hypotensive. Heart: Irregular rhythm. Normal S1S2. No murmur. Lungs: clear B/L. No R/R/W. Ext: No edema. A/P: Agree with above PA-C history, physical exam, assessment and plan. 77-year-old female mated with rhabdomyolysis, seizure, acute renal failure, anemia, dehydration with hypovolemic shock and possible sepsis. Mildly elevated troponin secondary to acute renal insufficiency, hypoperfusion, demand ischemia. No evidence of ACS/plaque rupture event. Echocardiogram demonstrates borderline hyperdynamic LV function without regional wall motion abnormality. Telemetry reveals a paced rhythm. Cardiac medications including furosemide, lisinopril, clonidine, atorvastatin currently on hold. Continue beta-ann-marie as blood pressure permits. Consider addition of digoxin as needed for heart rate control. IV hydration, transfusion of PRBCs, and pressor management as per critical care. History of Present Illness Reason for Consultation: Recurrent atrial fibrillation Requesting Physician: Dr. Leon Attending Physician: Dr. Crawford History of Present Illness No recent outpatient [facility] Cardiology evaluations, last in 2020 Hospitalized at [facility] July 2020 with COVID-19 pneumonia. Course complicated by acute renal dysfunction, superficial phlebitis, prescribed Eliquis anticoagulation for DVT prophylaxis at that time Hospitalized at [facility] in September 2022 after being found down at home, possible seizure. Started on Keppra. Course complicated by acute renal dysfunction, respiratory acidosis, and right posterior tibial vein DVT. Imaging notable for indeterminate asymmetric soft tissue fullness within the right nasopharynx Hospitalized at [facility] in November 2022 with an acute ischemic right MCA CVA. Course complicated by acute kidney injury. 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 Noncompliance with Eliquis and Keppra noted. Hospitalized at [facility] this month (December 2022) with a COPD exacerbation and abdominal pain. Evaluated by [facility] on January 04, 2023, concern for hematochezia. Documentation not available for review. Outpatient FOBT positive. As per provider documentation, patient experiencing decreased appetite and generalized weakness a few days prior to admission. Patient was found on the ground in her garage on January 11, 2023. Seizure type activity witnessed by granddaughter. Noncompliance with Keppra noted for the last few days. Admission EKG revealed wide-complex tachycardia with intermittent ventricular paced complexes, possible atrial fibrillation with a rapid ventricular response. Patient with a history of chronic left bundle branch block. Hypothermic on presentation, 31.2 C Laboratory work with significant acute on chronic renal dysfunction (BUN 168, creatinine 3.98), mild rhabdomyolysis (552) High-sensitivity troponin I elevated at 63.7 then 56.1 pg/mL Chest x-ray without acute cardiopulmonary findings Past Medical and Surgical History: Ischemic cardiomyopathy History of inferoposterior myocardial infarction in August 2006 Status post PCI of the RCA Status post PCI in December 2006 for recurrent symptoms post PCI with 4 BMS History of apical thrombus Chronic left bundle branch block Status post November 24, 2008 BiV ICD implantation. Pulse generator replacement on 08/06/2013 complicated by the right ventricular high voltage pin not engaged into the header s/p revision on 08/06/2013. Status post ? October 2020 generator replacement in [place]. AAA, stable at 3 cm measurement as of 2022 outpatient aortic duplex Hypertension Dyslipidemia COPD Type II diabetes mellitus Chronic anemia Chronic tobacco abuse Hepatitis C status post treatment Migraine headaches Chronic back pain Osteoarthritis. Bilateral carpale tunnel Status post hysterectomy Status post cataract extraction Status post cholecystectomy Status post bilateral trigger finger release Family History: Mother with cervical cancer and CAD status post CABG. Father with CAD and prostate cancer. Social History: Smoker. . Five children. Disabled. Allergies Allergy/AdvReac Type Severity Reaction Status Date / Time NSAIDS (Non-Steroidal AdvReac Severe GI ISSUES Verified 12/17/22 20:25 Anti-Inflamma Sjeptow-CTZ-TlT Reductase AdvReac Severe LIVER Verified 12/17/22 20:25 Inhibitor FUNCTION [Wwtclqh-Avf-Ynm Reductase ELEVATES Inhibitor] isosorbide AdvReac Intermediate VOMIT/HEADA Verified 12/17/22 20:25 CARLOS tramadol AdvReac Intermediate VOMITING Verified 12/17/22 20:25 Home Medications Medication Instructions Recorded Confirmed Type clonidine HCl 0.1 mg tablet 0.05 mg PO QAM #0 tabs 03/30/17 01/11/23 History nitroglycerin 0.4 mg sublingual 0.4 mg sublingual DIRECTED PRN 03/30/17 01/11/23 History tablet Chest Pain #0 BTLS pantoprazole 40 mg tablet,delayed 40 mg PO DAILYBB #30 tabs 03/30/17 01/11/23 History release lisinopril 20 mg tablet 20 mg PO DAILY ##0 07/27/17 01/11/23 History metoprolol succinate 100 mg 100 mg PO DAILY #0 tabs 07/27/17 01/11/23 History tablet,extended release 24 hr oxycodone 5 mg tablet 5 mg PO Q6H PRN Severe Pain (Scale 08/16/20 01/11/23 History Score 7-10) trazodone 50 mg tablet 25 mg PO HS 08/16/20 01/11/23 History atorvastatin 40 mg tablet 20 mg PO DAILY 10/05/22 01/11/23 History furosemide 40 mg tablet 40 mg PO QAM 10/05/22 01/11/23 History potassium chloride 20 mEq 20 meq PO DAILY 10/05/22 01/11/23 History tablet,extended release(part/cryst) albuterol sulfate 90 mcg/actuation 2 puff inhalation Q4H PRN 12/17/22 01/11/23 History aerosol inhaler Shortness Of Breath Or Wheezing gabapentin 300 mg capsule 300 mg PO TID 12/17/22 01/11/23 History hydroxyzine HCl 25 mg tablet 25 mg PO TID PRN Anxiety 12/17/22 01/11/23 History ondansetron HCl 4 mg tablet 4 mg PO Q8H PRN Nausea 12/17/22 01/11/23 History umeclidinium 62.5 mcg-vilanterol 1 inh inhalation DAILY 12/17/22 01/11/23 History 25 mcg/actuation powdr for inhalation (Anoro Ellipta) apixaban 5 mg tablet (Eliquis) 5 mg PO BID #60 tabs 12/19/22 01/11/23 Rx clopidogrel 75 mg tablet 75 mg PO QAM #30 tabs 12/19/22 01/11/23 Rx venlafaxine 75 mg capsule,extended 225 mg PO QAM 12/27/22 01/11/23 History release 24 hr levetiracetam 500 mg tablet 500 mg PO AMHS 01/11/23 01/11/23 History Patient History Medical History Acute anterior wall OR Anxiety CAD (coronary artery disease) "OR 2006. S/P PCI/Stent RCA" Chronic hepatitis C without hepatic coma Chronic pain CKD (chronic kidney disease), stage III COPD, group C, by GOLD 2017 classification Elevated troponin GERD (gastroesophageal reflux disease) H/O cardiac pacemaker HTN (hypertension) Hyperlipidemia Hypoxia Ischemic cardiomyopathy LBBB (left bundle branch block) Migraine OA (osteoarthritis) Respiratory acidosis Surgical History H/O release of tendon H/O: hysterectomy History of carpal tunnel surgery History of implantable cardioverter-defibrillator (ICD) placement Hx of cataract surgery S/P cardiac cath S/P cholecystectomy Family History Father , age 81 of lung cancer Prostate cancer Heart disease Thyroid disorder Lung cancer Mother , age 80 with COPD Cancer Cervical Coronary heart disease s/p CABG Diabetes COPD (chronic obstructive pulmonary disease) Social History Smoking Status: Current every day smoker Tobacco Type: Cigarettes Age Started Using Tobacco: 23; packs per day: 0.5; Cigarettes Per Day: 4; Second Hand Exposure: No; Do You Dip or Chew Tobacco: No; Hx Alcohol Use: No Hx Substance Use: No Preferred Language: Moroccan Communication Ability: Impaired Daycare Worker Required: No Beliefs That Will Affect Care: None Current Living Situation: Alone current occupational status: retired 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 Physical Exam Physical Exam: General: Alert to person and place. Ashen. Cachectic. HENT: Normocephalic. Atraumatic. Eyes: PER. Conjunctiva pink, sclera clear. Neck: Neck veins are flat. Heart: Regular at 90 bpm. + Systolic murmur. No rub. Lungs: Scattered rhonchi. No wheeze. Abdomen: +BS. Soft. Nontender. No masses or organomegaly. + Horne catheter Extremities: No cyanosis. No edema. Pulses: radial=2/4, posterior tibial=1/4. Results & Data Vital Signs (Past 12 Hours) Vital Signs Temp Pulse Pulse Resp BP BP Pulse Ox 01/12/23 08:22 99 H 01/12/23 08:12 01/12/23 08:12 36.3 C L 101 H 20 105/59 L 100 01/12/23 08:12 01/12/23 07:09 99 01/12/23 06:30 94 H 22 113/74 100 01/12/23 06:15 92 H 27 H 109/65 100 01/12/23 06:00 92 H 21 98/54 L 100 01/12/23 05:15 91 H 22 90/54 L 100 01/12/23 05:07 105/69 01/12/23 05:07 96 H 24 100 01/12/23 05:00 93 H 19 100 01/12/23 04:58 84/45 L 01/12/23 04:58 93 H 20 100 01/12/23 04:30 92 H 17 100 01/12/23 04:30 93/52 L 01/12/23 04:15 82/54 L 01/12/23 04:15 91 H 18 100 01/12/23 04:00 93 H 19 100 01/12/23 04:00 91/53 L 01/12/23 03:45 79/50 L 01/12/23 03:45 91 H 19 100 01/12/23 03:32 94 H 20 100 01/12/23 03:32 83/51 L 01/12/23 03:30 78/53 L 01/12/23 03:30 93 H 22 100 01/12/23 03:15 96 H 19 100/65 100 01/12/23 03:07 36.2 C L 95 H 22 98/63 L 100 01/12/23 03:04 96 H 21 79/58 L 99 01/12/23 03:00 94 H 19 100 01/12/23 02:46 98 H 19 102/57 L 100 01/12/23 02:30 93 H 20 95/75 L 100 01/12/23 02:15 94 H 20 101/53 L 100 01/12/23 02:00 93 H 20 100 01/12/23 02:00 88/60 L 01/12/23 01:46 93 H 19 100 01/12/23 01:46 88/52 L 01/12/23 01:30 94 H 20 100 01/12/23 01:15 97 H 16 86/55 L 100 01/12/23 01:11 98 H 17 96/62 L 99 01/12/23 01:00 96 H 29 H 99 01/12/23 01:35 93 H 01/11/23 23:00 96/62 L 01/12/23 00:30 94 H 21 100 01/12/23 00:15 117 H 20 01/11/23 23:30 35.5 C L 97 H 21 100 01/11/23 23:00 94 H 20 116/60 100 01/11/23 22:33 93 H 19 100 01/11/23 22:30 96 H 19 100 01/11/23 22:00 87 18 100 01/11/23 21:50 104/53 L 01/11/23 21:50 86 17 104/53 L 99 01/11/23 21:37 19 100 01/11/23 22:32 33.9 C L 96 H 16 116/60 100 01/11/23 21:58 81 01/11/23 21:36 93 H 22 140/67 100 Pulse Ox O2 Del Method O2 Del Method 01/12/23 08:22 01/12/23 08:12 100 Room Air 01/12/23 08:12 Room Air 01/12/23 08:12 Room Air 01/12/23 07:09 Room Air 01/12/23 06:30 01/12/23 06:15 01/12/23 06:00 01/12/23 05:15 01/12/23 05:07 01/12/23 05:07 01/12/23 05:00 01/12/23 04:58 01/12/23 04:58 01/12/23 04:30 01/12/23 04:30 01/12/23 04:15 01/12/23 04:15 01/12/23 04:00 01/12/23 04:00 01/12/23 03:45 01/12/23 03:45 01/12/23 03:32 01/12/23 03:32 01/12/23 03:30 01/12/23 03:30 01/12/23 03:15 01/12/23 03:07 01/12/23 03:04 01/12/23 03:00 01/12/23 02:46 01/12/23 02:30 01/12/23 02:15 01/12/23 02:00 01/12/23 02:00 01/12/23 01:46 01/12/23 01:46 01/12/23 01:30 01/12/23 01:15 01/12/23 01:11 01/12/23 01:00 01/12/23 01:35 01/11/23 23:00 01/12/23 00:30 01/12/23 00:15 01/11/23 23:30 01/11/23 23:00 01/11/23 22:33 01/11/23 22:30 01/11/23 22:00 01/11/23 21:50 01/11/23 21:50 01/11/23 21:37 01/11/23 22:32 Room Air 01/11/23 21:58 01/11/23 21:36 Room Air Laboratory Results Cardiac Enzymes 01/11/23 01/11/23 Range/Units 20:45 23:11 AST 44 H (13-39) U/L Troponin I High Sens 63.7 H* 56.1 H* (0-14) pg/ml Coagulation 01/11/23 Range/Units 20:45 APTT 30.3 (21.0-31.0) Seconds CBC 01/11/23 01/12/23 Range/Units 20:45 03:52 WBC 16.38 H 16.93 H (4.8-10.8) K/ul RBC 3.48 L 3.02 L (4.20-5.40) M/uL Hgb 10.3 L 8.9 L (12.0-16.0) g/dl Hct 31.1 L 26.9 L (37.0-47.0) % Plt Count 209 160 (130-400) K/uL Neut # (Auto) 14.84 H 15.28 H (1.40-6.50) K/uL Lymph # (Auto) 0.64 L 0.64 L (1.20-3.40) K/uL [place] # (Auto) 0.78 H 0.86 H (0.11-0.59) K/uL Eos # (Auto) 0.00 0.00 (0.00-0.50) K/uL Baso # (Auto) 0.02 0.02 (0.00-0.20) K/uL Comprehensive Metabolic Panel 01/11/23 01/11/23 01/12/23 Range/Units 20:45 23:11 03:52 Sodium 142 140 139 (136-145) mmol/L Potassium 4.3 4.2 3.9 (3.5-5.1) mmol/L Chloride 102 109 H 108 H (98-107) mmol/L Carbon Dioxide 14 L 11 L 14 L (21-32) mmol/L BUN 181 H 168 H 163 H (6-23) mg/dl Creatinine 4.27 H 3.98 H 3.86 H (0.6-1.2) mg/dl Glucose 98 64 L 81 (70-99(Fasting)) mg/dl Calcium 9.7 8.2 L 8.3 L (8.6-10.3) mg/dl Direct Bilirubin 0.1 (0-0.2) mg/dl AST 44 H (13-39) U/L ALT 19 (7-52) U/L Alkaline Phosphatase 66 (34-104) U/L Total Protein 6.9 (6.0-8.3) gm/dl Albumin 3.7 3.0 L (3.4-5.0) gm/dl Intake and Output 01/11/23 01/12/23 01/12/23 22:59 06:59 14:59 Intake Total 1610 / 2110 500 / 2110 Output Total 400 / 400 Balance 1609 / 2109 500 / 2109 -400 / -400 Intake: IV 1610 / 2110 500 / 2110 Sodium Chloride 0.9% 1000ML 1, 1000 / 1000 000 ml @ 999 mls/hr IV .Q1H1M LISHA Rx#:[id number] Sodium Chloride 0.9% 500 ml @ 500 / 1000 500 / 1000 999 mls/hr IV .Q31M ONE Rx#: [id number] levETIRAcetam 1,000 mg In 0.9 % 110 / 110 Sodium Chloride 100 ml @ 440 mls/hr IV NOW STA Rx#:[id number] Output: Urine Amount (Catheter) 400 / 400 Temp Sensing Horne 400 / 400 # Bowel Movements Other: Weight 58 kg 58 kg 58 kg Weight [facility] Patient Weight 01/13/23 06:59 Weight 58 kg (2) Rhabdomyolysis Rhabdomyolysis type: non-traumatic Qualified Code(s): M62.82 - Rhabdomyolysis
[2023-01-12] MEDS ORDERED: PIPERACILLIN/TAZOBACTAM 4.5 GM in DEXTROSE 5% 100 ML IV ONE (10:00)
[2023-01-12] MEDS: UMECLIDINIUM/VILANTEROL 62.5/25MCG 7 PUFFS/INHALER INH SCH (10:07)
[2023-01-12] MEDS: LACTATED RINGER'S 1,000 ML IV SCH ×2 (10:08→20:26)
--- NOTE | 2023-01-12 11:18 | Ultrasound Report ---
BILATERAL LOWER EXTREMITY VENOUS DOPPLER HISTORY: Bilateral lower extremity pain. COMPARISON STUDY: Lower extremity venous Doppler 10/05/2022. FINDINGS: There is normal compressibility, flow, and augmentation within the bilateral lower extremit y deep venous systems. Chronic thrombus again noted within the right greater saphenous vein. This is similar to the prior study IMPRESSION: 1. No DVT within the right or left lower extremity. 2. Chronic superficial thrombus again noted within the right greater saphenous vein. ACT 112: Negative or not required by law. Electronically signed by: Severino Blunt M.D. 01/12/2023 11:17 AM
[2023-01-12] MEDS: levETIRAcetam 250 MG in 0.9 % SODIUM CHLORIDE 100 ML IV SCH ×2 (11:25→22:24)
--- NOTE | 2023-01-12 11:25 | Nephrology Consultation ---
Date of Consultation January 12, 2023 Assessment & Plan (1) ARF (acute renal failure): stage 3 MARIELLA w/ baseline creatinine most recently 1.1 during inpatient stay here in past month. p/w creatinine 4.3, down to 3.9 this am. in the setting of AG metabolic acidosis, profound hyperphosphatemia. hyperchloremia has emerged since arrival. History is unclear; CK not c/w rhabdomyolysis. notably no ketonuria. ? rp BUN elevation may reflect heme in GI tract >concern for sepsis given hypothermia, leukocytosis, MARIELLA, hypotension, elevated lactate; however no clear/documented source > continue zosyn -started bicarb gtt for acidosis; also w/ small amount of K in fluid -ordered ABG >> shows straight up AG metabolic acidosis from renal failure >recheck bmp 1400 > pending >added keppra level (hx is inconsistent and if did take this w/ worsening renal failure could cause ataxia/gait instability/altered MS) >care coordinated w/ Dr Crawford > recommend ICU eval for possible pressors >no emergent HD but cannot rule out need Care coordinated w/ Dr Crawford History of Present Illness Reason for Consultation: MARIELLA on CKD Requesting Physician: Dr Crawford Attending Physician: Yonny Crawford MD History of Present Illness 77-year-old female whom I am asked to see for acute on chronic renal failure was admitted overnight for acute kidney injury attributed to rhabdomyolysis after a fall; also in A fib w/ HR 90s since presentation. Past medical history includes chronic combined heart failure with valvular heart disease and an ejection fraction of 60% on echocardiogram this year, coronary artery disease status post stenting, chronic left bundle branch block, stroke, COPD, active tobacco abuse, hypertension, diet-controlled diabetes, hepatitis C status post therapy, DVT September 2022, seizure disorder, right nasopharyngeal mass (ENT consult under consideration). This is her third admission in a month, most recently 2 weeks back for COPD exacerbation. Concern also about patient's curre nt home situation contributing to recurrent admissions. Hx of medication nonadherence (possibly d/t cost issues) and missing important messages from PCP (PCP recently unable to reach patient with instructions to stop Eliquis after FOBT positive). Progressive CKD 3 w/ baseline creatinine about 0.9 most recently had been 0.7 one year back. Recurrent MARIELLA in September and in November of this year short duration but at least stage 2. The patient fell at home in her garage and was found later an unspecified time (history from family variable per Dr Crawford) later by her granddaughter who also witnessed seizure activity lasting for approximately 1 minute. Patient has been unable to take Keppra for the last few days. Presenting creatinine 4.3, down to 3.9 today. Creatinine was on December 29, 2022. presenting phos 10.7, calcium 8.3, mag, 3.2, BUN 181. Anion gap 26. Presenting CK500, CKD 462 today. Lipase 1649. TSH 0.092. Hypothermic w/ sbp 90s and WBC 16K on presentation. when I saw her at approximately 1030 AM she was very lethargic and unable to give any history. Allergies Allergy/AdvReac Type Severity Reaction Status Date / Time NSAIDS (Non-Steroidal AdvReac Severe GI ISSUES Verified 12/17/22 20:25 Anti-Inflamma Pbxvepu-SIF-TuG Reductase AdvReac Severe LIVER Verified 12/17/22 20:25 Inhibitor FUNCTION [Ggarxfl-Ajm-Njz Reductase ELEVATES Inhibitor] isosorbide AdvReac Intermediate VOMIT/HEADA Verified 12/17/22 20:25 CARLOS tramadol AdvReac Intermediate VOMITING Verified 12/17/22 20:25 Home Medications Medication Instructions Recorded Confirmed Type clonidine HCl 0.1 mg tablet 0.05 mg PO QAM #0 tabs 03/30/17 01/11/23 History nitroglycerin 0.4 mg sublingual 0.4 mg sublingual DIRECTED PRN 03/30/17 01/11/23 History tablet Chest Pain #0 BTLS pantoprazole 40 mg tablet,delayed 40 mg PO DAILYBB #30 tabs 03/30/17 01/11/23 History release lisinopril 20 mg tablet 20 mg PO DAILY ##0 07/27/17 01/11/23 History metoprolol succinate 100 mg 100 mg PO DAILY #0 tabs 07/27/17 01/11/23 History tablet,extended release 24 hr oxycodone 5 mg tablet 5 mg PO Q6H PRN Severe Pain (Scale 08/16/20 01/11/23 History Score 7-10) trazodone 50 mg tablet 25 mg PO HS 08/16/20 01/11/23 History atorvastatin 40 mg tablet 20 mg PO DAILY 10/05/22 01/11/23 History furosemide 40 mg tablet 40 mg PO QAM 10/05/22 01/11/23 History potassium chloride 20 mEq 20 meq PO DAILY 10/05/22 01/11/23 History tablet,extended release(part/cryst) albuterol sulfate 90 mcg/actuation 2 puff inhalation Q4H PRN 12/17/22 01/11/23 History aerosol inhaler Shortness Of Breath Or Wheezing gabapentin 300 mg capsule 300 mg PO TID 12/17/22 01/11/23 History hydroxyzine HCl 25 mg tablet 25 mg PO TID PRN Anxiety 12/17/22 01/11/23 History ondansetron HCl 4 mg tablet 4 mg PO Q8H PRN Nausea 12/17/22 01/11/23 History umeclidinium 62.5 mcg-vilanterol 1 inh inhalation DAILY 12/17/22 01/11/23 History 25 mcg/actuation powdr for inhalation (Anoro Ellipta) apixaban 5 mg tablet (Eliquis) 5 mg PO BID #60 tabs 12/19/22 01/11/23 Rx clopidogrel 75 mg tablet 75 mg PO QAM #30 tabs 12/19/22 01/11/23 Rx venlafaxine 75 mg capsule,extended 225 mg PO QAM 12/27/22 01/11/23 History release 24 hr levetiracetam 500 mg tablet 500 mg PO AMHS 01/11/23 01/11/23 History Patient History Medical History Acute anterior wall [place] Anxiety CAD (coronary artery disease) "[place] 2006. S/P PCI/Stent RCA" Chronic hepatitis C without hepatic coma Chronic pain CKD (chronic kidney disease), stage III COPD, group C, by GOLD 2017 classification Elevated troponin GERD (gastroesophageal reflux disease) H/O cardiac pacemaker HTN (hypertension) Hyperlipidemia Hypoxia Ischemic cardiomyopathy LBBB (left bundle branch block) Migraine OA (osteoarthritis) Respiratory acidosis Surgical History H/O release of tendon H/O: hysterectomy History of carpal tunnel surgery History of implantable cardioverter-defibrillator (ICD) placement Hx of cataract surgery S/P cardiac cath S/P cholecystectomy Family History Father , age 81 of lung cancer Prostate cancer Heart disease Thyroid disorder Lung cancer Mother , age 80 with COPD Cancer Cervical Coronary heart disease s/p CABG Diabetes COPD (chronic obstructive pulmonary disease) Social History Smoking Status: Current every day smoker Tobacco Type: Cigarettes Age Started Using Tobacco: 23; packs per day: 0.5; Cigarettes Per Day: 4; Second Hand Exposure: No; Do You Dip or Chew Tobacco: No; Hx Alcohol Use: No Hx Substance Use: No Preferred Language: Croatian Communication Ability: Impaired Sap Security Architect Required: No Beliefs That Will Affect Care: None Current Living Situation: Alone current occupational status: retired 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 [employer] Other Information That Helps Us Care for You: No Feels Safe at Home: Declines to Answer Assistive Devices: Glasses Review of Systems Review of Systems: Unobtainable due to reduced consciousness Physical Exam Constitutional: well developed, + ill appearing, + thin, + altered mental status, + disheveled and + lethargic; no acute distress Eyes: EOM intact bilaterally ENMT: Ears: no external ear abnormality Nose: no external nose abnormality Mouth: + dry oral mucous membranes Neck: no nuchal rigidity Respiratory: normal respiratory effort and + prolonged expiratory phase; no cough Auscultation: + diminished lung sounds and + rhonchi Cardiovascular: Rate/Rhythm: regular rate and + tachycardic Extremities: no edema Gastrointestinal (Abdomen): Inspection/Auscultation: + abdomen distended (slight) and normal bowel sounds Percussion/Palpation: abdomen soft; abdomen nontender Musculoskeletal: Extremities: strength 5/5 throughout Skin: no rashes, warm and dry Neurologic: vega, under heavy /repeated stimulation will say her name barely intelligbly, shiver versus axial tremor Psychiatric: Orientation: oriented to person; + not alert Genitourinary: mccarthy w/ ample yellow urine Results & Data Vital Signs (Past 12 Hours) Vital Signs Temp Pulse Pulse Resp BP BP Pulse Ox 01/12/23 10:18 93 H 18 97/54 L 100 01/12/23 08:22 99 H 01/12/23 08:12 01/12/23 08:12 36.3 C L 101 H 20 105/59 L 100 01/12/23 08:12 01/12/23 07:09 99 01/12/23 06:30 94 H 22 113/74 100 01/12/23 06:15 92 H 27 H 109/65 100 01/12/23 06:00 92 H 21 98/54 L 100 01/12/23 05:15 91 H 22 90/54 L 100 01/12/23 05:07 105/69 01/12/23 05:07 96 H 24 100 01/12/23 05:00 93 H 19 100 01/12/23 04:58 84/45 L 01/12/23 04:58 93 H 20 100 01/12/23 04:30 92 H 17 100 01/12/23 04:30 93/52 L 01/12/23 04:15 82/54 L 01/12/23 04:15 91 H 18 100 01/12/23 04:00 93 H 19 100 01/12/23 04:00 91/53 L 01/12/23 03:45 79/50 L 01/12/23 03:45 91 H 19 100 01/12/23 03:32 94 H 20 100 01/12/23 03:32 83/51 L 01/12/23 03:30 78/53 L 01/12/23 03:30 93 H 22 100 01/12/23 03:15 96 H 19 100/65 100 01/12/23 03:07 36.2 C L 95 H 22 98/63 L 100 01/12/23 03:04 96 H 21 79/58 L 99 01/12/23 03:00 94 H 19 100 01/12/23 02:46 98 H 19 102/57 L 100 01/12/23 02:30 93 H 20 95/75 L 100 01/12/23 02:15 94 H 20 101/53 L 100 01/12/23 02:00 93 H 20 100 01/12/23 02:00 88/60 L 01/12/23 01:46 93 H 19 100 01/12/23 01:46 88/52 L 01/12/23 01:30 94 H 20 100 01/12/23 01:15 97 H 16 86/55 L 100 01/12/23 01:11 98 H 17 96/62 L 99 01/12/23 01:00 96 H 29 H 99 01/12/23 01:35 93 H 01/12/23 00:30 94 H 21 100 01/12/23 00:15 117 H 20 01/11/23 23:30 35.5 C L 97 H 21 100 Pulse Ox O2 Del Method O2 Del Method 01/12/23 10:18 Room Air 01/12/23 08:22 01/12/23 08:12 100 Room Air 01/12/23 08:12 Room Air 01/12/23 08:12 Room Air 01/12/23 07:09 Room Air 01/12/23 06:30 01/12/23 06:15 01/12/23 06:00 01/12/23 05:15 01/12/23 05:07 01/12/23 05:07 01/12/23 05:00 01/12/23 04:58 01/12/23 04:58 01/12/23 04:30 01/12/23 04:30 01/12/23 04:15 01/12/23 04:15 01/12/23 04:00 01/12/23 04:00 01/12/23 03:45 01/12/23 03:45 01/12/23 03:32 01/12/23 03:32 01/12/23 03:30 01/12/23 03:30 01/12/23 03:15 01/12/23 03:07 01/12/23 03:04 01/12/23 03:00 01/12/23 02:46 01/12/23 02:30 01/12/23 02:15 01/12/23 02:00 01/12/23 02:00 01/12/23 01:46 01/12/23 01:46 01/12/23 01:30 01/12/23 01:15 01/12/23 01:11 01/12/23 01:00 01/12/23 01:35 01/12/23 00:30 01/12/23 00:15 01/11/23 23:30 Laboratory Results 01/12/23 03:52 01/12/23 03:52 UA > trace protein 1+ blood clear yellow sg 1014; pH 5; 1+ yeast else negative indices ASA, tylenol levels not elevated Diagnostic Findings *CT a/p L lower pole complex cyst BLE doppers > no DVT; chronic R saphenous superficial thrombus renal u/s pending *cxr no acute processes head CT no acute process, unchnaged asymmetric R palatine tonsil enlargement/cannot r/o mass * = reviewed imaging personally
--- NOTE | 2023-01-12 11:31 | Ultrasound Report ---
RENAL ULTRASOUND HISTORY: left renal abn in CT scan COMPARISON: CT abdomen and pelvis 12/27/2022, 01/12/2023, 08/16/2020, renal ultrasound 10/05/2022 FINDINGS: Right kidney: 8.9 cm. No solid renal mass lesions identified. The right renal calculus is not visuali zed by ultrasound. A 1.8 cm cyst is noted within the superior pole right kidney. No hydronephrosis. N ormal corticomedullary differentiation and cortical thickness. Left kidney: 7.7 cm. No hydronephrosis. No solid renal mass lesions identified. Suboptimal visualizat ion of the left kidney secondary to obscuring bowel gas. The complex cysts of the left kidney are not visualized by ultrasound. Normal corticomedullary differentiation and cortical thickness. Bladder: No bladder wall thickening. The bilateral ureteral jets were identified. IMPRESSION: 1. No hydronephrosis. 2. Left kidney is not well-visualized secondary to obscuring bowel gas. Between the contrast and nonc ontrast CT studies dated 01/12/2023 and 12/27/2022 the left renal lesions demonstrate no enhancement com patible with complex cysts. 3. The patient's known right renal calculus is not visualized by ultrasound. ACT 112: Negative or not required by law. Electronically signed by: Gurdeep Claros M.D. 01/12/2023 11:29 AM
[2023-01-12] MEDS ORDERED: SODIUM BICARBONATE 8.4% 150 MEQ, POTASSIUM CHLORIDE 20 MEQ in DEXTROSE 5% 1,000 ML IV STA (11:54)
--- NOTE | 2023-01-12 12:01 | XRay Report ---
XR knee LT 1 or 2V routine, XR knee RT 1 or 2V routine HISTORY: 77 years-old Female painful rom acute bilateral knee pain with limited range of motion COMPARISON: None TECHNIQUE: 2 views of the bilateral knees FINDINGS: LEFT: Demineralized appearance of the bones. Minimal tricompartmental osteoarthritis without acute fracture , dislocation or opaque foreign body. Trace joint effusion. Arterial calcifications. RIGHT: Demineralized appearance of the bones. Minimal tricompartmental osteoarthritis without acute fracture , dislocation or opaque foreign body. Trace joint effusion. Arterial calcifications. IMPRESSION: No acute fracture or dislocation. ACT 112: Negative or not required by law. The above report was generated using voice recognition software. It may contain grammatical, syntax o r spelling errors. Electronically signed by: Gurdeep Claros M.D. 01/12/2023 12:00 PM
--- NOTE | 2023-01-12 12:13 | XRay Report ---
XR ankle RT 2V, XR ankle LT 2V HISTORY: 77 years-old Female ? pain chronic bilateral ankle pain COMPARISON: None TECHNIQUE: 2 views of the ankles for a total of 4 images FINDINGS: RIGHT: Demineralized appearance of the bones. Mild osteoarthritis. No acute fracture, dislocation, osseous e rosion or osteochondral defect identified. LEFT: Demineralized appearance of the bones. Mild osteoarthritis. Moderate-sized Achilles enthesophytes of the calcaneus. No acute fracture, dislocation, osseous erosion or osteochondral defect identified. IMPRESSION: Mild osteoarthritis without acute osseous abnormality. ACT 112: Negative or not required by law. The above report was generated using voice recognition software. It may contain grammatical, syntax o r spelling errors. Electronically signed by: Gurdeep Claros M.D. 01/12/2023 12:11 PM
[2023-01-12] MEDS ORDERED: STAT IV Infusion **Titration per Protocol STA ×2 (12:48→16:31)
[2023-01-12 13:02] LABS: iSTAT Arterial Blood Gas HCO3 15 meg/L (19-24); iSTAT Arterial Blood Gas pCO2 31 mmHg (35-46); iSTAT Arterial Blood Gas pO2 92 mmHg (80-95); iSTAT Carbon Dioxide 16 mmol/L (24-31); iSTAT Hematocrit 32 % (37-47); iSTAT Hemoglobin 10.9 g/dl (12.0-16.0); iSTAT Potassium 3.6 mmol/L (3.3-5.0); iSTAT Sodium 137 mmol/L (135-144)
[2023-01-12] MEDS: NOREPINEPHRINE/D5W 4 MG/250 ML PLCT IV SCH ×3 (14:05→22:57)
--- NOTE | 2023-01-12 14:14 | Critical Care Consultation ---
Date of Consultation January 12, 2023 Assessment & Plan (1) ARF (acute renal failure): (2) Acute ischemic right MCA stroke: (3) Rhabdomyolysis: (4) CKD (chronic kidney disease), stage III: (5) COPD, group C, by GOLD 2017 classification: (6) GERD (gastroesophageal reflux disease): (7) Metabolic encephalopathy: (8) Shock circulatory: (9) Transaminitis: Plan Reason Critically Ill: 77-year-old female with past medical history: Diastolic CHF, coronary artery disease s/p stent, A-fib, history of CVA, diabetes type 2, history of DVT present to the hospital for generalized weakness and fall for 2 days. She was found to be in rhabdo my cysts, MARIELLA and shock. Transferred to ICU for further management Neuro - -- Metabolic encephalopathy Multifactorial Elevated BUN, hypoglycemia when the patient came in CT head negative TSH 0.092 with normal free T4, sodium, calcium within normal limit --History of seizures On Keppra at home Cardiac - -- Shock Etiology is not clear No clear source of sepsis Follow-up random cortisol Continue vasopressor support to keep MAP greater than 65 2D echo 01/12/2023: EF 65-70%, mild concentric LVH, RV normal in size, grade 1 diastolic dysfunction --History of A-fib On apixaban and metoprolol at home for rate control --Elevated troponin Likely type II PR Continue to trend Respiratory - -- Not in any respiratory distress right now --History of COPD On Anoro at home GI - -- Transaminitis Likely from shock Continue to trend -- Elevated lipase Nonspecific Patient does not have any abdominal tenderness RENAL/LYTES - -- MARIELLA Follow-up urine lites Monitor BUN/creatinine Avoid nephrotoxic medications Strict ins and outs -- HAGMA Delta-delta: 1.4, pure anion gap metabolic acidosis Likely sec to elevated BUN with starvation ketosis Follow up serum osm, urine osm, urine lytes ABG 7. on room air 01/12/2023 Monitor --Rhabdomyolysis With IV fluids -- Possible complex cyst left kidney Given the urine is clean I doubt pyelonephritis - With Horne catheter ENDO - -- ICU hypoglycemia protocol HEME - -- Monitor H&H ID - -- Leukocytosis with no clear source of infection Urine is clean, chest x-ray clean CT abdomen pelvis does not show any abnormalities POCUS and 0.2 to --Prophylaxis VTE: IPC GI: Pantoprazole Lines: Peripheral Diet: N.p.o. Plan: Repeat CMP, CBC Follow-up random cortisol, will give stress dose steroid Strict in and out. Give another liter bolus of Normosol Follow-up urine tox screen Give a dose of Narcan There is any risk of compromise of airway will intubate I have personally spent 62 minutes of critical care time in the direct management of this patient. This is a life/limb threatening event. This includes time spent evaluating patient, direct bedside care, chart review, placing orders, interpretation of diagnostic studies, discussion with consultants, patient, and family members, as well as other required patient management activities. This time is exclusive of all separately billable procedures, and teaching time and separate from and in addition to any other critical care service time. History of Present Illness Attending Physician: Yonny Crawford MD History of Present Illness 77-year-old female present to the hospital for generalized weakness Past medical history: Diastolic CHF, coronary artery disease s/p stent, A-fib, history of CVA, diabetes type 2, history of DVT In the ER patient was found to be hypotensive Sent to the ICU for further management At the time of examination in the ICU patient map was in the low 50s. Levophed was started. It was increased to 0.15 Heart rate was in the 80s. She was somnolent. Arousable but not answering any questions She was moving all extremities appropriately Pupils were pinpoint not reacting to light When she presented her initial temperature was 31 C but in the ICU she was 36.8 C She Horne catheter and there was dark urine appreciated History obtained from previous chart and ER record Allergies Allergy/AdvReac Type Severity Reaction Status Date / Time NSAIDS (Non-Steroidal AdvReac Severe GI ISSUES Verified 12/17/22 20:25 Anti-Inflamma Brktulv-UVR-PeO Reductase AdvReac Severe LIVER Verified 12/17/22 20:25 Inhibitor FUNCTION [Txekkvo-Lgl-Xaz Reductase ELEVATES Inhibitor] isosorbide AdvReac Intermediate VOMIT/HEADA Verified 12/17/22 20:25 CARLOS tramadol AdvReac Intermediate VOMITING Verified 12/17/22 20:25 Home Medications Medication Instructions Recorded Confirmed Type clonidine HCl 0.1 mg tablet 0.05 mg PO QAM #0 tabs 03/30/17 01/11/23 History nitroglycerin 0.4 mg sublingual 0.4 mg sublingual DIRECTED PRN 03/30/17 01/11/23 History tablet Chest Pain #0 BTLS pantoprazole 40 mg tablet,delayed 40 mg PO DAILYBB #30 tabs 03/30/17 01/11/23 History release lisinopril 20 mg tablet 20 mg PO DAILY ##0 07/27/17 01/11/23 History metoprolol succinate 100 mg 100 mg PO DAILY #0 tabs 07/27/17 01/11/23 History tablet,extended release 24 hr oxycodone 5 mg tablet 5 mg PO Q6H PRN Severe Pain (Scale 08/16/20 01/11/23 History Score 7-10) trazodone 50 mg tablet 25 mg PO HS 08/16/20 01/11/23 History atorvastatin 40 mg tablet 20 mg PO DAILY 10/05/22 01/11/23 History furosemide 40 mg tablet 40 mg PO QAM 10/05/22 01/11/23 History potassium chloride 20 mEq 20 meq PO DAILY 10/05/22 01/11/23 History tablet,extended release(part/cryst) albuterol sulfate 90 mcg/actuation 2 puff inhalation Q4H PRN 12/17/22 01/11/23 History aerosol inhaler Shortness Of Breath Or Wheezing gabapentin 300 mg capsule 300 mg PO TID 12/17/22 01/11/23 History hydroxyzine HCl 25 mg tablet 25 mg PO TID PRN Anxiety 12/17/22 01/11/23 History ondansetron HCl 4 mg tablet 4 mg PO Q8H PRN Nausea 12/17/22 01/11/23 History umeclidinium 62.5 mcg-vilanterol 1 inh inhalation DAILY 12/17/22 01/11/23 History 25 mcg/actuation powdr for inhalation (Anoro Ellipta) apixaban 5 mg tablet (Eliquis) 5 mg PO BID #60 tabs 12/19/22 01/11/23 Rx clopidogrel 75 mg tablet 75 mg PO QAM #30 tabs 12/19/22 01/11/23 Rx venlafaxine 75 mg capsule,extended 225 mg PO QAM 12/27/22 01/11/23 History release 24 hr levetiracetam 500 mg tablet 500 mg PO AMHS 01/11/23 01/11/23 History Patient History Medical History Acute anterior wall PR Anxiety CAD (coronary artery disease) "PR 2006. S/P PCI/Stent RCA" Chronic hepatitis C without hepatic coma Chronic pain CKD (chronic kidney disease), stage III COPD, group C, by GOLD 2017 classification Elevated troponin GERD (gastroesophageal reflux disease) H/O cardiac pacemaker HTN (hypertension) Hyperlipidemia Hypoxia Ischemic cardiomyopathy LBBB (left bundle branch block) Migraine OA (osteoarthritis) Respiratory acidosis Surgical History H/O release of tendon H/O: hysterectomy History of carpal tunnel surgery History of implantable cardioverter-defibrillator (ICD) placement Hx of cataract surgery S/P cardiac cath S/P cholecystectomy Family History Father , age 81 of lung cancer Prostate cancer Heart disease Thyroid disorder Lung cancer Mother , age 80 with COPD Cancer Cervical Coronary heart disease s/p CABG Diabetes COPD (chronic obstructive pulmonary disease) Social History Smoking Status: Current every day smoker Tobacco Type: Cigarettes Age Started Using Tobacco: 23; packs per day: 0.5; Cigarettes Per Day: 4; Second Hand Exposure: No; Do You Dip or Chew Tobacco: No; Hx Alcohol Use: No Hx Substance Use: No Preferred Language: Occitan Communication Ability: Impaired Fire Services Plumber Required: No Beliefs That Will Affect Care: None Current Living Situation: Alone current occupational status: retired 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 Other Information That Helps Us Care for You: No Feels Safe at Home: Declines to Answer Assistive Devices: Glasses Review of Systems Review of Systems: Unobtainable due to mental health condition and Unobtainable due to cognitive status Physical Exam Physical Exam: Constitutional: No acute distress HEENT: Pupils pinpoint, nonreactive to right Respiratory system: Good air entry bilaterally, no wheeze, no rhonchi, no crackles CVS: S1-S2 positive, no murmurs or gallops, positive left-sided AICD Abdomen: Soft, nontender, nondistended, positive bowel sounds x4 Extremities: +2 pulses bilaterally radialis/ dorsalis pedis, no cyanosis, no edema Neuro: Somnolent, moving all the extremities appropriately Psych: Able to assess G/U: Positive Horne Skin: no rashes, warm and dry Lymphatic: no cervical or axillary lymphadenopathy Results & Data Results & Data Vital Signs (Past 12 Hours) Vital Signs Temp Pulse Pulse Resp BP BP Pulse Ox 01/12/23 11:29 36.6 C 87 19 84/52 L 99 01/12/23 10:18 93 H 18 97/54 L 100 01/12/23 08:22 99 H 01/12/23 08:12 01/12/23 08:12 36.3 C L 101 H 20 105/59 L 100 01/12/23 08:12 01/12/23 07:09 99 01/12/23 06:30 94 H 22 113/74 100 01/12/23 06:15 92 H 27 H 109/65 100 01/12/23 06:00 92 H 21 98/54 L 100 01/12/23 05:15 91 H 22 90/54 L 100 01/12/23 05:07 105/69 01/12/23 05:07 96 H 24 100 01/12/23 05:00 93 H 19 100 01/12/23 04:58 84/45 L 01/12/23 04:58 93 H 20 100 01/12/23 04:30 92 H 17 100 01/12/23 04:30 93/52 L 01/12/23 04:15 82/54 L 01/12/23 04:15 91 H 18 100 01/12/23 04:00 93 H 19 100 01/12/23 04:00 91/53 L 01/12/23 03:45 79/50 L 01/12/23 03:45 91 H 19 100 01/12/23 03:32 94 H 20 100 01/12/23 03:32 83/51 L 01/12/23 03:30 78/53 L 01/12/23 03:30 93 H 22 100 01/12/23 03:15 96 H 19 100/65 100 01/12/23 03:07 36.2 C L 95 H 22 98/63 L 100 01/12/23 03:04 96 H 21 79/58 L 99 01/12/23 03:00 94 H 19 100 01/12/23 02:46 98 H 19 102/57 L 100 01/12/23 02:30 93 H 20 95/75 L 100 01/12/23 02:15 94 H 20 101/53 L 100 Pulse Ox O2 Del Method O2 Del Method 01/12/23 11:29 Room Air 01/12/23 10:18 Room Air 01/12/23 08:22 01/12/23 08:12 100 Room Air 01/12/23 08:12 Room Air 01/12/23 08:12 Room Air 01/12/23 07:09 Room Air 01/12/23 06:30 01/12/23 06:15 01/12/23 06:00 01/12/23 05:15 01/12/23 05:07 01/12/23 05:07 01/12/23 05:00 01/12/23 04:58 01/12/23 04:58 01/12/23 04:30 01/12/23 04:30 01/12/23 04:15 01/12/23 04:15 01/12/23 04:00 01/12/23 04:00 01/12/23 03:45 01/12/23 03:45 01/12/23 03:32 01/12/23 03:32 01/12/23 03:30 01/12/23 03:30 01/12/23 03:15 01/12/23 03:07 01/12/23 03:04 01/12/23 03:00 01/12/23 02:46 01/12/23 02:30 01/12/23 02:15 Laboratory Results 01/12/23 03:52 01/12/23 03:52 Coding Level of Care Code 35166 CRITICAL CARE 1ST 30-74M Diagnoses ARF (acute renal failure) N17.9 Acute ischemic right MCA stroke I63.511 Rhabdomyolysis M62.82 Rhabdomyolysis type: non-traumatic CKD (chronic kidney disease), stage III N18.30 COPD, group C, by GOLD 2017 classification J44.9 GERD (gastroesophageal reflux disease) K21.9 Metabolic encephalopathy G93.41 Shock circulatory R57.9 Transaminitis R74.01 Time Spent (min) 62 (3) Rhabdomyolysis Rhabdomyolysis type: non-traumatic Qualified Code(s): M62.82 - Rhabdomyolysis
[2023-01-12] MEDS ORDERED: Nursing to Pharmacy Communication SCH (14:30)
[2023-01-12] MEDS ORDERED: PLASMA-LYTE A 1,000 ML IV ONE (14:58)
[2023-01-12 15:00] LABS: Hematocrit (blood only) 22.1 % (37.0-47.0); Hemoglobin 7.4 g/dl (12.0-16.0)
[2023-01-12] MEDS ORDERED: HYDROCORTISONE SOD 200 MG in SYRINGE 0 ML IV STA (15:10)
[2023-01-12] MEDS ORDERED: NALOXONE HCL 0.4 MG/1 ML VIAL/CARP IV STA (15:19)
[2023-01-12 15:50] LABS: Acetaminophen < 3 ug/ml (10-30); Salicylate < 3.0 mg/dl (3.0-30)
--- NOTE | 2023-01-12 16:21 | Hospitalist Progress Note ---
Date of Service January 12, 2023 Assessment & Plan (1) ARF (acute renal failure): Plan: 76-year-old female with PMH of chronic systolic/diastolic heart failure s/p ICD [recent EF of 60 to 65%, TTE 2022], CAD s/p stent, chronic LBBB, mild aortic regurgitation, AAA, HTN, HLD, COPD, DM 2 diet controlled, HCV status post treatment, chronic anemia [baseline hemoglobin of 10], history of DVT on Eliquis [currently on hold as per PCP note], seizure disorder on Keppra treatment, right nasopharyngeal mass, ongoing tobacco abuse presented to the ED 01/11 after being found lying in the garage by her granddaughter who also witnessed seizure activity lasting for a minute. 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 Of note, she was recently seen at PCP office/concern for hematochezia/FOBT was positive/patient was instructed to stop Eliquis temporarily until repeat lab work/patient unaware of instruction to hold Eliquis. She is being managed for the following: Likely metabolic versus toxic versus both encephalopathy: Hypoglycemia/hypothermia/elevated BUN at presentation ? Breakthrough seizure: Pt noted to have seizure per pt's grand daughter per HnP note. Fall: Patient was found lying in the garage floor by granddaughter. CPK elevated at 552, does not qualify for rhabdomyolysis diagnosis. History of seizure disorder:Recent confinement in September 2022 with altered mental status when patient was noted to have myoclonic jerk and neurology evaluated, was discharged on Keppra 500 mg bid. Imagings at presentation: C-spine CT/chest and abdomen x-ray/head CT/bilateral knee x-ray/bilateral ankle x-ray: With no acute findings US venous Doppler: No DVT. Chronic superficial thrombus within the greater saphenous vein. CTAP with 1.5 cm hypodensity projecting from the lower pole of left kidney,?? Complicated cyst. Ultrasound recommended. Renal ultrasound: Suggestive of complex cyst. No hydronephrosis. Patient lethargic and confused, oriented to self at bedside exam, denied any pain to me. Bedside swallow screen prior to resuming diet, continue IV fluid for now. Nephro Managing IVF. Continue renally dosed Keppra in IV form. Neurology consult. Urine tox screen pending. Hypothermia and hypoglycemia: likely 2/2 starvation and being out in garage. Warming blanket for hypothermia. Hypoglycemia protocol. Shock: At admissionWBC of 16.38 K (procal neg), temperature 31.2 C, pulse rate elevated, blood pressure soft with continued to deteriorate despite 3.5 L IV fluid hydration in the ED --> transferred to ICU for pressor support. No clear source of sepsis. Holding home diuretics and blood pressure medications. Follow admitting blood and urine culture, empiric Zosyn. Patient received cefepime in ED. random cortisol pending. Pt under icu care. Transaminitis/Lipase elevation/increase blood lactic acid level: likely from shock, trend. Getting IV fluids. Getting pressor support. Acute kidney injury over CKD stage III: Admitting BUN of 181 and creatinine of 4.27. Hold nephrotoxins. Nephrology on board. IV fluid. Labs in AM. AGMA: likely 2/2 starvation ketosis. ABG reviewed, Nephro on board, started on bicarb drip. GI Bleed: Recent PCP visit for hematochezia, FOBT positive, was instructed to hold Eliquis transiently and get the labs repeated as outpatient. Currently Eliquis and Plavix on hold. Uremia noted. Continue with IV fluids, IV PPI twice daily, GI consult. Trend hemoglobin. Currently in ICU care. Afib w/ RVR: EKG w/ Afib rvr at presentation, likely 2/2 acute illness (above). Cardio on board, rate better now. Likely demand ischemia: Likely secondary to A-fib RVR and acute illness. Troponin elevated at presentation, downtrending. EKG with A-fib RVR. Echo with EF of 65 to 70%, left ventricle normal in size and systolic function. Possible functional disability: given recurrent admissions/patient current living situation detrimental to receiving important communications in PCP's office (e.g. message to hold Eliquis). CM consult. PT/OT. Recent acute ischemic right MCA stroke:Continue with statin low-dose, follow-up with neurology in 2-3 weeks on DC. Continue with Eliquis and Plavix as able (see above). History of DVT:history of RLE DVT, continue with Eliquis as able [see above]. Recent history of incidental finding of right nasopharyngeal mass:Follow-up ENT as an outpatient. Appears outpatient ENT evaluation is scheduled for January 2023 per d/w patient in the past. Other chronic medical conditions:c/w or resume home meds as and when able. Systolic/diastolic heart failure s/p ICD (recent EF of 60 to 65%, TTE 2022). CAD status post stent chronic LBBB mild aortic regurgitation AAA, stable at 3 cm measurement as of 2022 outpatient aortic duplex hypertension hyperlipidemia, on statin Rx COPD: no wheezing, c/w home inhalers as able. Was discharged on 2L O2 with rest and ambulation in her last discharge. DM2 diet-controlled, Documented inpatient hemoglobin A1c of 7.1 from 2020. A1C 6.3 in November HCV status post tx chronic anemia, hemoglobin at baseline chronic pain ongoing tobacco abuse: Continues to smoke despite multiple counseling . 3 to 4 cigarettes daily.Nicotine patch as needed DVT Px: scd Full Code. DVT prophylaxis. SCDs Re: Possible GIB Full code Mr. Earl Tong (son), contact #[phone]. Ms. Lacy Tong (daughter), contact # [phone]. Ms. Nadiya Tong (daughter), contact #[phone]. Called all of the above lines turn by turn, either call was not placed or i wasn't able to leave voicemail. Approx 90 minutes spent in the care/coordination of this patient. Discussed with ICU and Nephrology Admission and Anticipated Discharge Date Admission Date: January 11, 2023 Subjective Patient seen and examined at bedside. Multiple active issues. Patient was lying in bed, drowsy and lethargic, oriented to self, denied any pain, further ROS was not able as patient was not communicating effectively. Physical Exam Physical Exam: GENERAL: uncomfortable, no respiratory distress SKIN: Pallor, warm HEENT: Pale palpebral conjunctivae, no ptosis, dry buccal mucosa NECK : Supple, no tenderness CHEST : Decreased breath sounds, no tenderness HEART : RRR, no obvious murmurs ABDOMEN: Some distention, no epigastric tenderness EXTREMITIES : no LE swelling, no LE tenderness, no other conspicuous deformities noted NEUROLOGIC : drowsy lethargic, no facial asymmetry, slightly hard of hearing, gait and stance not assessed Results & Data Results & Data Vital Signs (Past 12 Hours) Vital Signs Temp Pulse Pulse Resp BP BP Pulse Ox 01/12/23 14:32 36.8 C 85 22 64/42 L 98 01/12/23 11:29 36.6 C 87 19 84/52 L 99 01/12/23 10:18 93 H 18 97/54 L 100 01/12/23 08:22 99 H 01/12/23 08:12 01/12/23 08:12 36.3 C L 101 H 20 105/59 L 100 01/12/23 08:12 01/12/23 07:09 99 01/12/23 06:30 94 H 22 113/74 100 01/12/23 06:15 92 H 27 H 109/65 100 01/12/23 06:00 92 H 21 98/54 L 100 01/12/23 05:15 91 H 22 90/54 L 100 01/12/23 05:07 105/69 01/12/23 05:07 96 H 24 100 01/12/23 05:00 93 H 19 100 01/12/23 04:58 84/45 L 01/12/23 04:58 93 H 20 100 01/12/23 04:30 92 H 17 100 01/12/23 04:30 93/52 L 01/12/23 04:15 82/54 L 01/12/23 04:15 91 H 18 100 01/12/23 04:00 93 H 19 100 01/12/23 04:00 91/53 L 01/12/23 03:45 79/50 L 01/12/23 03:45 91 H 19 100 Pulse Ox O2 Del Method O2 Del Method 01/12/23 14:32 Room Air 01/12/23 11:29 Room Air 01/12/23 10:18 Room Air 01/12/23 08:22 01/12/23 08:12 100 Room Air 01/12/23 08:12 Room Air 01/12/23 08:12 Room Air 01/12/23 07:09 Room Air 01/12/23 06:30 01/12/23 06:15 01/12/23 06:00 01/12/23 05:15 01/12/23 05:07 01/12/23 05:07 01/12/23 05:00 01/12/23 04:58 01/12/23 04:58 01/12/23 04:30 01/12/23 04:30 01/12/23 04:15 01/12/23 04:15 01/12/23 04:00 01/12/23 04:00 01/12/23 03:45 01/12/23 03:45
--- NOTE | 2023-01-12 16:39 | Electrocardiogram Report ---
Test Reason : Blood Pressure : / mmHG Vent. Rate : 146 BPM Atrial Rate : 000 BPM P-R Int : 000 ms QRS Dur : 120 ms QT Int : 322 ms P-R-T Axes : 000 269 194 degrees QTc Int : 501 ms Atrial fibrillation with rapid ventricular response with frequent ventricular-paced complexes Poor R wave progression, consider anterior VT vs. lead placement vs. LVH Abnormal ECG When compared with ECG of 27-DEC-2022 19:36, Vent. rate has increased BY 81 BPM Sinus rhythm no longer present Confirmed by Vineet Peoples ([id number]) on 01/12/2023 4:39:09 PM Referred By: REFERRED SELF Confirmed By:Vineet Peoples
[2023-01-12] MEDS ORDERED: VASOPRESSIN 20 UNITS in 0.9 % SODIUM CHLORIDE 100 ML IV SCH (16:45)
[2023-01-12] MEDS: PLASMA-LYTE A 1,000 ML IV SCH (16:53)
--- NOTE | 2023-01-12 17:03 | Neurology Consultation ---
Date of Consultation January 12, 2023 Assessment & Plan (1) Breakthrough seizure: Breakthrough seizure in the setting of medication noncompliance. Please continue keppra. Patient is encephalopathic as evidenced by her asterixis and lab derrangements but not in status as she briskly follows commands. No need for further neurologic testing. Would not change her keppra dosing, only encourage compliance. We will sign off. Telehealth Consultation Telehealth Information Telehealth Information: I performed this visit using a real-time telehealth connection between my location and the patients location ([facility]). After connecting through interactive tele-video, patient was identified by name and date of and/or wristband check.Patient (or authorized healthcare field representatives director) was informed that this was a telemedicine visit and it was being conducted confidentially over secure lines. My office door was closed and no one else was present in the room with me.Patient (or authorized healthcare field representatives director) provided consent to proceed with the visit, expressed an understanding of privacy and security of the telemedicine visit, and gave permission to have a hospital field representatives director in the room in order to assist with the visit and to conduct portions of the visit, as needed. I informed the patient (or authorized healthcare field representatives director) that I reviewed their record and presented the opportunity for them to ask any questions regarding the visit today. The patient agreed to participate. History of Present Illness Reason for Consultation: Seizure Requesting Physician: Dr. Crawford Attending Physician: Yonny Crawford MD History of Present Illness Radha Tong is a 77 yo F presenting with altered mental status after a fall at home with a witnessed seizure in the setting of not taking her medication including Keppra. She has been seen by neurology during the recent admissions this summer and has had workup for her seizures in the past. She most recently was admitted for a L MCA stroke and was started on plavix by Dr. Ha. She is currently encephalopathic and can not contribute to the history. Allergies Allergy/AdvReac Type Severity Reaction Status Date / Time NSAIDS (Non-Steroidal AdvReac Severe GI ISSUES Verified 12/17/22 20:25 Anti-Inflamma Gmsrwmj-OJO-CaN Reductase AdvReac Severe LIVER Verified 12/17/22 20:25 Inhibitor FUNCTION [Fydcqfy-Bbi-Pat Reductase ELEVATES Inhibitor] isosorbide AdvReac Intermediate VOMIT/HEADA Verified 12/17/22 20:25 CARLOS tramadol AdvReac Intermediate VOMITING Verified 12/17/22 20:25 Home Medications Medication Instructions Recorded Confirmed Type clonidine HCl 0.1 mg tablet 0.05 mg PO QAM #0 tabs 03/30/17 01/11/23 History nitroglycerin 0.4 mg sublingual 0.4 mg sublingual DIRECTED PRN 03/30/17 01/11/23 History tablet Chest Pain #0 BTLS pantoprazole 40 mg tablet,delayed 40 mg PO DAILYBB #30 tabs 03/30/17 01/11/23 History release lisinopril 20 mg tablet 20 mg PO DAILY ##0 07/27/17 01/11/23 History metoprolol succinate 100 mg 100 mg PO DAILY #0 tabs 07/27/17 01/11/23 History tablet,extended release 24 hr oxycodone 5 mg tablet 5 mg PO Q6H PRN Severe Pain (Scale 08/16/20 01/11/23 History Score 7-10) trazodone 50 mg tablet 25 mg PO HS 08/16/20 01/11/23 History atorvastatin 40 mg tablet 20 mg PO DAILY 10/05/22 01/11/23 History furosemide 40 mg tablet 40 mg PO QAM 10/05/22 01/11/23 History potassium chloride 20 mEq 20 meq PO DAILY 10/05/22 01/11/23 History tablet,extended release(part/cryst) albuterol sulfate 90 mcg/actuation 2 puff inhalation Q4H PRN 12/17/22 01/11/23 History aerosol inhaler Shortness Of Breath Or Wheezing gabapentin 300 mg capsule 300 mg PO TID 12/17/22 01/11/23 History hydroxyzine HCl 25 mg tablet 25 mg PO TID PRN Anxiety 12/17/22 01/11/23 History ondansetron HCl 4 mg tablet 4 mg PO Q8H PRN Nausea 12/17/22 01/11/23 History umeclidinium 62.5 mcg-vilanterol 1 inh inhalation DAILY 12/17/22 01/11/23 History 25 mcg/actuation powdr for inhalation (Anoro Ellipta) apixaban 5 mg tablet (Eliquis) 5 mg PO BID #60 tabs 12/19/22 01/11/23 Rx clopidogrel 75 mg tablet 75 mg PO QAM #30 tabs 12/19/22 01/11/23 Rx venlafaxine 75 mg capsule,extended 225 mg PO QAM 12/27/22 01/11/23 History release 24 hr levetiracetam 500 mg tablet 500 mg PO AMHS 01/11/23 01/11/23 History Patient History Medical History Acute anterior wall [place] Anxiety CAD (coronary artery disease) "[place] 2006. S/P PCI/Stent RCA" Chronic hepatitis C without hepatic coma Chronic pain CKD (chronic kidney disease), stage III COPD, group C, by GOLD 2017 classification Elevated troponin GERD (gastroesophageal reflux disease) H/O cardiac pacemaker HTN (hypertension) Hyperlipidemia Hypoxia Ischemic cardiomyopathy LBBB (left bundle branch block) Migraine OA (osteoarthritis) Respiratory acidosis Surgical History H/O release of tendon H/O: hysterectomy History of carpal tunnel surgery History of implantable cardioverter-defibrillator (ICD) placement Hx of cataract surgery S/P cardiac cath S/P cholecystectomy Family History Father , age 81 of lung cancer Prostate cancer Heart disease Thyroid disorder Lung cancer Mother , age 80 with COPD Cancer Cervical Coronary heart disease s/p CABG Diabetes COPD (chronic obstructive pulmonary disease) Social History Smoking Status: Current every day smoker Tobacco Type: Cigarettes Age Started Using Tobacco: 23; packs per day: 0.5; Cigarettes Per Day: 4; Second Hand Exposure: No; Do You Dip or Chew Tobacco: No; Hx Alcohol Use: No Hx Substance Use: No Preferred Language: Marshallese Communication Ability: Impaired Packaging Machine Supplies Distributor Required: No Beliefs That Will Affect Care: None Current Living Situation: Alone current occupational status: retired 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 Able to follow commands briskly. Cranial Nerves: III/IV/: Spontaneous versions intact without nystagmus, no gaze preference. VII: Facial expression symmetric VIII: Hearing intact to voice Motor: Strength was antigravity in the upper extremities with asterixis. Coordination: No dysmetria Reflexes: Unable to assess over telemedicine Results & Data Vital Signs (Past 12 Hours) Vital Signs Temp Pulse Pulse Resp BP BP Pulse Ox 01/12/23 16:00 99 H 01/12/23 14:32 36.8 C 85 22 64/42 L 98 01/12/23 11:29 36.6 C 87 19 84/52 L 99 01/12/23 10:18 93 H 18 97/54 L 100 01/12/23 08:22 99 H 01/12/23 08:12 01/12/23 08:12 36.3 C L 101 H 20 105/59 L 100 01/12/23 08:12 01/12/23 07:09 99 01/12/23 06:30 94 H 22 113/74 100 01/12/23 06:15 92 H 27 H 109/65 100 01/12/23 06:00 92 H 21 98/54 L 100 01/12/23 05:15 91 H 22 90/54 L 100 01/12/23 05:07 105/69 01/12/23 05:07 96 H 24 100 01/12/23 05:00 93 H 19 100 01/12/23 04:58 84/45 L 01/12/23 04:58 93 H 20 100 Pulse Ox O2 Del Method O2 Del Method 01/12/23 16:00 01/12/23 14:32 Room Air 01/12/23 11:29 Room Air 01/12/23 10:18 Room Air 01/12/23 08:22 01/12/23 08:12 100 Room Air 01/12/23 08:12 Room Air 01/12/23 08:12 Room Air 01/12/23 07:09 Room Air 01/12/23 06:30 01/12/23 06:15 01/12/23 06:00 01/12/23 05:15 01/12/23 05:07 01/12/23 05:07 01/12/23 05:00 01/12/23 04:58 08/24/23 04:58 Laboratory Results Abnormal lab results 01/11/23 01/11/23 01/11/23 Range/Units 20:45 20:45 20:45 WBC 16.38 H (4.8-10.8) K/ul RBC 3.48 L (4.20-5.40) M/uL Hgb 10.3 L (12.0-16.0) g/dl POC Hgb (12.0-16.0) g/dl Hct 31.1 L (37.0-47.0) % POC Hct (37-47) % RDW Std Deviation 52.3 H (36.4-46.3) fL RDW Coeff of Julia 16.1 H (11.5-14.5) % Neut # (Auto) 14.84 H (1.40-6.50) K/uL Lymph # (Auto) 0.64 L (1.20-3.40) K/uL Terrell # (Auto) 0.78 H (0.11-0.59) K/uL POC pH (7.35-7.45) POC pCO2 (35-46) mmHg POC HCO3 (19-24) grace/L POC Total CO2 (24-31) mmol/L POC Base Excess (-9-1.8) grace/L POC ABG O2 Sat (90-95) % Chloride (98-107) mmol/L Carbon Dioxide 14 L (21-32) mmol/L Anion Gap 26 H (3-11) BUN 181 H (6-23) mg/dl Creatinine 4.27 H (0.6-1.2) mg/dl BUN/Creatinine Ratio 42.4 H (10-20) Glucose (70-99(Fasting)) mg/dl POC Glucose (70-99) mg/dl Osmolality (280-300) mOsm/kg Lactate 2.9 H* (0.4-2.0) mmol/L Calcium (8.6-10.3) mg/dl Phosphorus 12.9 H (2.5-4.9) mg/dl Magnesium 3.2 H (1.7-2.4) mg/dl AST 44 H (13-39) U/L Total Creatine Kinase 552 H (26-192) U/L Troponin I High Sens 63.7 H* (0-14) pg/ml Albumin (3.4-5.0) gm/dl Lipase (11-82) U/L TSH (0.300-4.500) uIu/ml Urine Protein (Negative) Urine Blood (Negative) U Epithel Cells (Auto) (0-5) /lpf Urine Yeast (None Prsent) Salicylates (3.0-30) mg/dl Acetaminophen (10-30) ug/ml 01/11/23 01/11/23 01/11/23 Range/Units 20:45 23:11 23:38 WBC (4.8-10.8) K/ul RBC (4.20-5.40) M/uL Hgb (12.0-16.0) g/dl POC Hgb (12.0-16.0) g/dl Hct (37.0-47.0) % POC Hct (37-47) % RDW Std Deviation (36.4-46.3) fL RDW Coeff of Julia (11.5-14.5) % Neut # (Auto) (1.40-6.50) K/uL Lymph # (Auto) (1.20-3.40) K/uL Terrell # (Auto) (0.11-0.59) K/uL POC pH (7.35-7.45) POC pCO2 (35-46) mmHg POC HCO3 (19-24) grace/L POC Total CO2 (24-31) mmol/L POC Base Excess (-9-1.8) grace/L POC ABG O2 Sat (90-95) % Chloride 109 H (98-107) mmol/L Carbon Dioxide 11 L (21-32) mmol/L Anion Gap 20 H (3-11) BUN 168 H (6-23) mg/dl Creatinine 3.98 H (0.6-1.2) mg/dl BUN/Creatinine Ratio 42.2 H (10-20) Glucose 64 L (70-99(Fasting)) mg/dl POC Glucose (70-99) mg/dl Osmolality (280-300) mOsm/kg Lactate (0.4-2.0) mmol/L Calcium 8.2 L (8.6-10.3) mg/dl Phosphorus 10.7 H (2.5-4.9) mg/dl Magnesium (1.7-2.4) mg/dl AST (13-39) U/L Total Creatine Kinase (26-192) U/L Troponin I High Sens 56.1 H* (0-14) pg/ml Albumin 3.0 L (3.4-5.0) gm/dl Lipase 1649 H (11-82) U/L TSH 0.092 L (0.300-4.500) uIu/ml Urine Protein Trace H (Negative) Urine Blood 1+ H (Negative) U Epithel Cells (Auto) 10-20 H (0-5) /lpf Urine Yeast Budding A (None Prsent) Salicylates (3.0-30) mg/dl Acetaminophen (10-30) ug/ml 01/12/23 01/12/23 01/12/23 Range/Units 01:10 01:13 01:33 WBC (4.8-10.8) K/ul RBC (4.20-5.40) M/uL Hgb (12.0-16.0) g/dl POC Hgb (12.0-16.0) g/dl Hct (37.0-47.0) % POC Hct (37-47) % RDW Std Deviation (36.4-46.3) fL RDW Coeff of Julia (11.5-14.5) % Neut # (Auto) (1.40-6.50) K/uL Lymph # (Auto) (1.20-3.40) K/uL Terrell # (Auto) (0.11-0.59) K/uL POC pH (7.35-7.45) POC pCO2 (35-46) mmHg POC HCO3 (19-24) grace/L POC Total CO2 (24-31) mmol/L POC Base Excess (-9-1.8) grace/L POC ABG O2 Sat (90-95) % Chloride (98-107) mmol/L Carbon Dioxide (21-32) mmol/L Anion Gap (3-11) BUN (6-23) mg/dl Creatinine (0.6-1.2) mg/dl BUN/Creatinine Ratio (10-20) Glucose (70-99(Fasting)) mg/dl POC Glucose 53 L* 60 L* 60 L* (70-99) mg/dl Osmolality (280-300) mOsm/kg Lactate (0.4-2.0) mmol/L Calcium (8.6-10.3) mg/dl Phosphorus (2.5-4.9) mg/dl Magnesium (1.7-2.4) mg/dl AST (13-39) U/L Total Creatine Kinase (26-192) U/L Troponin I High Sens (0-14) pg/ml Albumin (3.4-5.0) gm/dl Lipase (11-82) U/L TSH (0.300-4.500) uIu/ml Urine Protein (Negative) Urine Blood (Negative) U Epithel Cells (Auto) (0-5) /lpf Urine Yeast (None Prsent) Salicylates (3.0-30) mg/dl Acetaminophen (10-30) ug/ml 01/12/23 01/12/23 01/12/23 Range/Units 01:49 03:52 03:52 WBC 16.93 H (4.8-10.8) K/ul RBC 3.02 L (4.20-5.40) M/uL Hgb 8.9 L (12.0-16.0) g/dl POC Hgb (12.0-16.0) g/dl Hct 26.9 L (37.0-47.0) % POC Hct (37-47) % RDW Std Deviation 53.6 H (36.4-46.3) fL RDW Coeff of Julia 16.5 H (11.5-14.5) % Neut # (Auto) 15.28 H (1.40-6.50) K/uL Lymph # (Auto) 0.64 L (1.20-3.40) K/uL Terrell # (Auto) 0.86 H (0.11-0.59) K/uL POC pH (7.35-7.45) POC pCO2 (35-46) mmHg POC HCO3 (19-24) grace/L POC Total CO2 (24-31) mmol/L POC Base Excess (-9-1.8) grace/L POC ABG O2 Sat (90-95) % Chloride 108 H (98-107) mmol/L Carbon Dioxide 14 L (21-32) mmol/L Anion Gap 17 H (3-11) BUN 163 H (6-23) mg/dl Creatinine 3.86 H (0.6-1.2) mg/dl BUN/Creatinine Ratio 42.2 H (10-20) Glucose (70-99(Fasting)) mg/dl POC Glucose 64 L* (70-99) mg/dl Osmolality (280-300) mOsm/kg Lactate (0.4-2.0) mmol/L Calcium 8.3 L (8.6-10.3) mg/dl Phosphorus (2.5-4.9) mg/dl Magnesium (1.7-2.4) mg/dl AST (13-39) U/L Total Creatine Kinase 462 H (26-192) U/L Troponin I High Sens (0-14) pg/ml Albumin (3.4-5.0) gm/dl Lipase (11-82) U/L TSH (0.300-4.500) uIu/ml Urine Protein (Negative) Urine Blood (Negative) U Epithel Cells (Auto) (0-5) /lpf Urine Yeast (None Prsent) Salicylates (3.0-30) mg/dl Acetaminophen (10-30) ug/ml 01/12/23 01/12/23 01/12/23 Range/Units 12:47 13:26 14:42 WBC (4.8-10.8) K/ul RBC (4.20-5.40) M/uL Hgb (12.0-16.0) g/dl POC Hgb 10.9 L (12.0-16.0) g/dl Hct (37.0-47.0) % POC Hct 32 L (37-47) % RDW Std Deviation (36.4-46.3) fL RDW Coeff of Julia (11.5-14.5) % Neut # (Auto) (1.40-6.50) K/uL Lymph # (Auto) (1.20-3.40) K/uL Terrell # (Auto) (0.11-0.59) K/uL POC pH 7.30 L (7.35-7.45) POC pCO2 31 L (35-46) mmHg POC HCO3 15 L (19-24) grace/L POC Total CO2 16 L (24-31) mmol/L POC Base Excess -11.0 L (-9-1.8) grace/L POC ABG O2 Sat 96.0 H (90-95) % Chloride (98-107) mmol/L Carbon Dioxide (21-32) mmol/L Anion Gap (3-11) BUN (6-23) mg/dl Creatinine (0.6-1.2) mg/dl BUN/Creatinine Ratio (10-20) Glucose (70-99(Fasting)) mg/dl POC Glucose 111 H (70-99) mg/dl Osmolality (280-300) mOsm/kg Lactate (0.4-2.0) mmol/L Calcium (8.6-10.3) mg/dl Phosphorus (2.5-4.9) mg/dl Magnesium (1.7-2.4) mg/dl AST (13-39) U/L Total Creatine Kinase (26-192) U/L Troponin I High Sens (0-14) pg/ml Albumin (3.4-5.0) gm/dl Lipase (11-82) U/L TSH 0.074 L (0.300-4.500) uIu/ml Urine Protein (Negative) Urine Blood (Negative) U Epithel Cells (Auto) (0-5) /lpf Urine Yeast (None Prsent) Salicylates (3.0-30) mg/dl Acetaminophen (10-30) ug/ml 01/12/23 01/12/23 01/12/23 Range/Units 14:42 14:42 14:43 WBC (4.8-10.8) K/ul RBC (4.20-5.40) M/uL Hgb 7.4 L (12.0-16.0) g/dl POC Hgb (12.0-16.0) g/dl Hct 22.1 L (37.0-47.0) % POC Hct (37-47) % RDW Std Deviation (36.4-46.3) fL RDW Coeff of Julia (11.5-14.5) % Neut # (Auto) (1.40-6.50) K/uL Lymph # (Auto) (1.20-3.40) K/uL Terrell # (Auto) (0.11-0.59) K/uL POC pH (7.35-7.45) POC pCO2 (35-46) mmHg POC HCO3 (19-24) grace/L POC Total CO2 (24-31) mmol/L POC Base Excess (-9-1.8) grace/L POC ABG O2 Sat (90-95) % Chloride (98-107) mmol/L Carbon Dioxide (21-32) mmol/L Anion Gap (3-11) BUN (6-23) mg/dl Creatinine (0.6-1.2) mg/dl BUN/Creatinine Ratio (10-20) Glucose (70-99(Fasting)) mg/dl POC Glucose (70-99) mg/dl Osmolality 337 H (280-300) mOsm/kg Lactate (0.4-2.0) mmol/L Calcium (8.6-10.3) mg/dl Phosphorus (2.5-4.9) mg/dl Magnesium (1.7-2.4) mg/dl AST (13-39) U/L Total Creatine Kinase (26-192) U/L Troponin I High Sens (0-14) pg/ml Albumin (3.4-5.0) gm/dl Lipase (11-82) U/L TSH (0.300-4.500) uIu/ml Urine Protein (Negative) Urine Blood (Negative) U Epithel Cells (Auto) (0-5) /lpf Urine Yeast (None Prsent) Salicylates < 3.0 L (3.0-30) mg/dl Acetaminophen < 3 L (10-30) ug/ml 01/12/23 Range/Units 15:35 WBC (4.8-10.8) K/ul RBC (4.20-5.40) M/uL Hgb (12.0-16.0) g/dl POC Hgb (12.0-16.0) g/dl Hct (37.0-47.0) % POC Hct (37-47) % RDW Std Deviation (36.4-46.3) fL RDW Coeff of Julia (11.5-14.5) % Neut # (Auto) (1.40-6.50) K/uL Lymph # (Auto) (1.20-3.40) K/uL Terrell # (Auto) (0.11-0.59) K/uL POC pH (7.35-7.45) POC pCO2 (35-46) mmHg POC HCO3 (19-24) grace/L POC Total CO2 (24-31) mmol/L POC Base Excess (-9-1.8) grace/L POC ABG O2 Sat (90-95) % Chloride (98-107) mmol/L Carbon Dioxide (21-32) mmol/L Anion Gap (3-11) BUN (6-23) mg/dl Creatinine (0.6-1.2) mg/dl BUN/Creatinine Ratio (10-20) Glucose (70-99(Fasting)) mg/dl POC Glucose 102 H (70-99) mg/dl Osmolality (280-300) mOsm/kg Lactate (0.4-2.0) mmol/L Calcium (8.6-10.3) mg/dl Phosphorus (2.5-4.9) mg/dl Magnesium (1.7-2.4) mg/dl AST (13-39) U/L Total Creatine Kinase (26-192) U/L Troponin I High Sens (0-14) pg/ml Albumin (3.4-5.0) gm/dl Lipase (11-82) U/L TSH (0.300-4.500) uIu/ml Urine Protein (Negative) Urine Blood (Negative) U Epithel Cells (Auto) (0-5) /lpf Urine Yeast (None Prsent) Salicylates (3.0-30) mg/dl Acetaminophen (10-30) ug/ml Diagnostic Findings CT head unremarkable
[2023-01-12 17:16] LABS: Creatinine Urine Random 18.2 mg/dl; Potassium Random Urine 14.2 mmol/L
[2023-01-12 17:17] LABS: Amphetamines+Metham, Urine Neg (Neg); Barbiturates, Urine Neg (Neg); Benzodiazepine, Urine Neg (Neg); Cocaine, Urine Neg (Neg); MDMA (Ecstacy), Urine Neg (Neg); Methadone, Urine Neg (Neg); Opiate, Urine Neg (Neg); Phencyclidine, Urine Neg (Neg)
[2023-01-12 17:31] LABS: Albumin Level 2.6 gm/dl (3.4-5.0); Bilirubin Direct 0.1 mg/dl (0-0.2); Bilirubin,Total 0.6 mg/dl (0.2-1.0); Calcium 7.5 mg/dl (8.6-10.3); Potassium 3.9 mmol/L (3.5-5.1)
[2023-01-12] MEDS ORDERED: SODIUM BICARB 8.4% INJ 50 MEQ/50 ML SYR IV STA (17:35)
[2023-01-12 17:59] LABS: Hematocrit (blood only) 23.9 % (37.0-47.0); Hemoglobin 8.3 g/dl (12.0-16.0); Mean Corpuscular Hemoglobin 30.2 pg (25.0-34.0); Mean Corpuscular Hgb Conc 34.7 g/dL (32.0-36.0); Mean Corpuscular Volume 86.9 fL (80.0-100.0); Mean Platelet Volume 11.7 fL (9.4-12.4); Platelet Count 146 K/uL (130-400); RDW Coefficient of Variation 16.6 % (11.5-14.5); RDW Standard Deviation 50.7 fL (36.4-46.3); Red Blood Count 2.75 M/uL (4.20-5.40); White Blood Count 14.16 K/ul (4.8-10.8)
[2023-01-12 18:01] LABS: BUN Creatinine Ratio 42.1 (10-20); Creatinine Clr Calc Pharmacy 11.5 ml/min; Est GFR (African American) 14.2 ml/min; Est GFR (Non-African American) 12.2 ml/min; Total Protein 4.8 gm/dl (6.0-8.3)
[2023-01-12] MEDS: PIPERACILLIN/TAZOBACTAM 4.5 GM in DEXTROSE 5% 100 ML IV SCH (18:54)
[2023-01-12 19:27] LABS: Influenza A virus by PCR Negative (Neg); Influenza B virus by PCR Negative (Neg); RSV by PCR Negative (Neg); SARS CoV2 RNA(COVID-19) Ceph NEGATIVE (Negative)
[2023-01-12 19:36] LABS: A calco-baum cmplx NotReported Not Detected (NotDetected); Bact fragilis Not Reported Not Detected (NotDetected); C auris Not Reported Not Detected (NotDetected); Calbicans Not Reported Not Detected (NotDetected); Candida glabrata Not Reported Not Detected (NotDetected); Candida krusei Not Reported Not Detected (NotDetected); Cneoformans/gatti Not Reported Not Detected (NotDetected); Cparapsilosis Not Reported Not Detected (NotDetected); Ctropicalis Not Reported Not Detected (NotDetected); E cloacae compx Not Reported Not Detected (NotDetected); Efaecalis Not Reported Not Detected (NotDetected); Efaecium Not Reported Not Detected (NotDetected); Enterobacterales Not Reported Not Detected (NotDetected); Escherichia coli Not Reported Not Detected (NotDetected); H influenzae Not Reported Not Detected (NotDetected); K aerogenes Not Reported Not Detected (NotDetected); Koxytoca Not Reported Not Detected (NotDetected); Kpneumoniae grp Not Reported Not Detected (NotDetected); Lmonocyt Not Reported Not Detected (NotDetected); N meningitidis Not Reported Not Detected (NotDetected); P aeruginosa Not Reported Not Detected (NotDetected); Proteus spp Not Reported Not Detected (NotDetected); Salmonella spp Not Reported Not Detected (NotDetected); Smarcescens Not Reported Not Detected (NotDetected); Staph lugdunensis Not Reported Not Detected (NotDetected); Staph spp. Not Reported DETECTED (NotDetected); Staphaureus Not Reported Not Detected (NotDetected); Staphepi Not Reported DETECTED (NotDetected); Stenmaltophilia Not Reported Not Detected (NotDetected); Strep agal(GrpB) Not Reported Not Detected (NotDetected); Strep pneum Not Reported Not Detected (NotDetected); Strep pyog (GrpA) Not Reported Not Detected (NotDetected); Strep spp Not Reported Not Detected (NotDetected); mecAC Resistant Gene DETECTED (NotDetected)
[2023-01-12 20:23] LABS: Staphylococcus spp. DETECTED (NotDetected)
[2023-01-12 20:24] LABS: Staphylococcus epidermidis DETECTED (NotDetected)
[2023-01-12] MEDS ORDERED: traZODone HCL 50 MG TAB PO SCH (21:00)
[2023-01-12] MEDS ORDERED: SODIUM BICARBONATE 8.4% 150 MEQ, POTASSIUM CHLORIDE 20 MEQ in DEXTROSE 5% 1,000 ML IV SCH (21:10)
[2023-01-12] MEDS: ACETAMINOPHEN 325 MG TAB PO PRN (23:35)
[2023-01-13] MEDS: PLASMA-LYTE A 1,000 ML IV SCH ×2 (02:02→11:04)
[2023-01-13] MEDS: PIPERACILLIN/TAZOBACTAM 4.5 GM in DEXTROSE 5% 100 ML IV SCH ×2 (05:03→16:46)
[2023-01-13 05:14] LABS: Hematocrit (blood only) 21.9 % (37.0-47.0); Hemoglobin 7.6 g/dl (12.0-16.0); Mean Corpuscular Hgb Conc 34.7 g/dL (32.0-36.0); Mean Corpuscular Volume 86.6 fL (80.0-100.0); Mean Platelet Volume 11.9 fL (9.4-12.4); Platelet Count 133 K/uL (130-400); RDW Coefficient of Variation 16.6 % (11.5-14.5); RDW Standard Deviation 50.6 fL (36.4-46.3); Red Blood Count 2.53 M/uL (4.20-5.40)
[2023-01-13 05:32] LABS: Anion Gap 15 (3-11); Blood Urea Nitrogen 110 mg/dl (6-23); Calcium 7.6 mg/dl (8.6-10.3); Carbon Dioxide 24 mmol/L (21-32); Chloride 107 mmol/L (98-107); Creatine Kinase 617 U/L (26-192); Creatinine Clr Calc Pharmacy 15.2 ml/min; Est GFR (African American) 19.9 ml/min; Est GFR (Non-African American) 17.2 ml/min; Glucose 159 mg/dl (70-99(Fasting)); Magnesium 2.6 mg/dl (1.7-2.4); Phosphorus 5.3 mg/dl (2.5-4.9); Sodium 146 mmol/L (136-145)
[2023-01-13 05:57] LABS: Lipase 788 U/L (11-82)
[2023-01-13] MEDS ORDERED: POTASSIUM CHLORIDE CRTAB 20 MEQ TABCR PO STA ×2 (06:30→17:36)
[2023-01-13] MEDS: POTASSIUM CHLORIDE / WTR 10 MEQ/100 ML PLCT IV SCH ×4 (06:40→09:33)
[2023-01-13] MEDS: INSULIN ASPART PER UNIT CHARGE SC SCH ×4 (07:53→21:28)
--- NOTE | 2023-01-13 08:21 | Critical Care Progress Note ---
Date of Service January 13, 2023 Assessment & Plan (1) ARF (acute renal failure): (2) Acute ischemic right MCA stroke: (3) Rhabdomyolysis: (4) CKD (chronic kidney disease), stage III: (5) COPD, group C, by GOLD 2017 classification: (6) GERD (gastroesophageal reflux disease): (7) Metabolic encephalopathy: (8) Shock circulatory: (9) Transaminitis: Plan Reason Critically Ill: 77-year-old female with past medical history: Diastolic CHF, coronary artery disease s/p stent, A-fib, history of CVA, diabetes type 2, history of DVT present to the hospital for generalized weakness and fall for 2 days. She was found to be in rhabdo my cysts, MARIELLA and shock. Transferred to ICU for further management Neuro - -- Metabolic encephalopathy --> improving Multifactorial Elevated BUN, hypoglycemia when the patient came in CT head negative TSH 0.092 with normal free T4, sodium, calcium within normal limit --History of seizures On Keppra at home Cardiac - -- Shock Etiology is not clear No clear source of sepsis Random cortisol 32, would expect to be higher in somebody who was in shock, did get a dose of hydrocortisone on 01/12/2023 Continue vasopressor support to keep MAP greater than 65 2D echo 01/12/2023: EF 65-70%, mild concentric LVH, RV normal in size, grade 1 diastolic dysfunction --History of A-fib On apixaban and metoprolol at home for rate control --Elevated troponin Likely type II MO Continue to trend Respiratory - -- Not in any respiratory distress right now --History of COPD On Anoro at home GI - -- Transaminitis Likely from shock Continue to trend -- Elevated lipase Nonspecific Patient does not have any abdominal tenderness RENAL/LYTES - -- MARIELLA --> improving Monitor BUN/creatinine Avoid nephrotoxic medications Strict ins and outs -- S/p HAGMA Delta-delta: 1.4, pure anion gap metabolic acidosis Likely sec to elevated BUN with starvation ketosis Follow up serum osm, urine osm, urine lytes ABG 7. on room air 01/12/2023 Monitor --Rhabdomyolysis Continue with IV fluids -- Possible complex cyst left kidney Given the urine is clean I doubt pyelonephritis - Continue with Horne catheter ENDO - -- ICU hypoglycemia protocol HEME - -- Normocytic anemia Hemoglobin is trending down Monitor H&H Transfuse if hemoglobin goes less than 7 ID - -- Leukocytosis, one of the blood cultures positive for MRSE Urine is clean, chest x-ray clean CT abdomen pelvis does not show any abnormalities Procalcitonin 0.22 Continue with antibiotic --Prophylaxis VTE: IPC GI: Pantoprazole Lines: Peripheral Diet: Start cardiac renal diet Plan: In/out: +2.8 L, urine output 3075 Potassium being replaced Hemoglobin is trending down. We will repeat H&H later today Decrease Plasma-Lyte to 75 mill an hour, add D5 half NS at 75 mill an hour with 40 of KCl in it. One of the 2 blood cultures are positive for MRSE. I will give a dose of vancomycin Repeat blood cultures today Try to titrate off vasopressors while keeping MAP greater than 65 Case was discussed with Dr. Wylie I have personally spent 42 minutes of critical care time in the direct management of this patient. This is a life/limb threatening event. This includes time spent evaluating patient, direct bedside care, chart review, placing orders, interpretation of diagnostic studies, discussion with consultants, patient, and family members, as well as other required patient management activities. This time is exclusive of all separately billable procedures, and teaching time and separate from and in addition to any other critical care service time. Admission and Anticipated Discharge Date Admission Date: January 11, 2023 Subjective Patient seen and examined at bedside. No acute distress, no adverse events overnight She was on 0.05 of Levophed at the time of examination with MAP in 71 Denies any abdominal pain, no chest pain, no shortness of breath She was saturating 96% on room air Moving all the extremities. Review of Systems Review of Systems: All systems reviewed & are unremarkable except as noted in Subjective Physical Exam Physical Exam: Constitutional: No acute distress HEENT: Pupils pinpoint, nonreactive to right Respiratory system: Good air entry bilaterally, no wheeze, no rhonchi, mild crackles bilateral lower lobes CVS: S1-S2 positive, no murmurs or gallops, positive left-sided AICD Abdomen: Soft, nontender, nondistended, positive bowel sounds x4 Extremities: +2 pulses bilaterally radialis/ dorsalis pedis, no cyanosis, no edema Neuro: Awake alert oriented to self and place Psych: Normal mood and affect G/U: Positive Horne Skin: no rashes, warm and dry Lymphatic: no cervical or axillary lymphadenopathy Results & Data Results & Data Vital Signs (Past 12 Hours) Vital Signs Temp Pulse Resp BP Pulse Ox O2 Del Method 01/13/23 07:30 36.9 C 99 H 15 116/76 95 Room Air 01/13/23 07:00 36.8 C 94 H 24 120/66 94 Room Air 01/13/23 06:30 36.8 C 91 H 17 105/57 L 95 Room Air 01/13/23 06:00 36.7 C 86 22 124/68 98 Room Air 01/13/23 05:30 36.7 C 88 19 102/57 L 94 Room Air 01/13/23 05:00 36.7 C 91 H 24 117/64 95 Room Air 01/13/23 04:30 36.7 C 91 H 17 97/61 L 95 Room Air 01/13/23 04:00 36.7 C 92 H 18 108/59 L 96 Room Air 01/13/23 03:30 36.8 C 86 15 97/51 L 94 Room Air 01/13/23 03:00 36.9 C 87 17 88/50 L 94 Room Air 01/13/23 02:31 37.0 C 87 20 85/50 L 95 Room Air 01/13/23 02:00 37.1 C 86 20 91/50 L 93 Room Air 01/13/23 01:30 37.2 C 89 19 85/50 L 96 Room Air 01/13/23 01:00 37.2 C 97 H 17 93/52 L 96 Room Air 01/13/23 00:30 37.3 C 102 H 18 101/61 95 Room Air 01/13/23 00:00 37.3 C 102 H 16 99/60 L 95 Room Air 01/12/23 23:00 37.3 C 100 H 20 93/68 L 97 Room Air 01/12/23 22:30 37.3 C 95 H 20 118/69 96 Room Air 01/12/23 22:00 37.3 C 86 18 139/63 95 Room Air 01/12/23 21:30 37.2 C 82 17 123/63 96 Room Air 01/12/23 21:00 37.2 C 87 20 139/67 96 Room Air 01/12/23 20:30 37.3 C 88 22 125/64 95 Room Air Laboratory Results 01/13/23 04:53 01/13/23 05:38 Coding Level of Care Code 32776 CRITICAL CARE 1ST 30-74M Diagnoses ARF (acute renal failure) N17.9 Acute renal failure type: unspecified Acute ischemic right MCA stroke I63.511 Rhabdomyolysis M62.82 Rhabdomyolysis type: non-traumatic CKD (chronic kidney disease), stage III N18.30 COPD, group C, by GOLD 2017 classification J44.9 GERD (gastroesophageal reflux disease) K21.9 Metabolic encephalopathy G93.41 Shock circulatory R57.9 Transaminitis R74.01 Time Spent (min) 42 (1) ARF (acute renal failure) Acute renal failure type: unspecified Qualified Code(s): N17.9 - Acute kidney failure, unspecified (3) Rhabdomyolysis Rhabdomyolysis type: non-traumatic Qualified Code(s): M62.82 - Rhabdomyolysis
[2023-01-13] MEDS ORDERED: ACETAMINOPHEN 1,000 MG/100 ML VIAL IV PRN (09:10)
[2023-01-13] MEDS: UMECLIDINIUM/VILANTEROL 62.5/25MCG 7 PUFFS/INHALER INH SCH (09:44)
--- NOTE | 2023-01-13 09:46 | Cardiology Progress Note ---
Date of Service January 13, 2023 Assessment & Plan (1) ARF (acute renal failure): (2) Rhabdomyolysis: (3) Acute dehydration: (4) Elevated troponin: Plan Complex 77-year-old female admitted after being found down in the garage, with rhabdomyolysis, seizure, acute renal failure, anemia, significant volume depletion, hypovolemic shock and possible sepsis. 1 of 2 blood cultures positive for gram-positive cocci in clusters. Troponin mildly elevated secondary to acute illness, significant renal dysfunction, hypoperfusion, demand ischemia. No evidence of ACS/plaque rupture. Echo with borderline hyperdynamic LV function without regional wall motion abnormality. Telemetry with atrial fibrillation, heart rates acceptable for present/acute illness. Device interrogation performed on January 12, 2023 demonstrated appropriate function (NOT MR conditional) Recommendations: 1. Continue IV hydration, transfusion of PRBCs as per Critical Care 2. Add/resume beta-ann-marie therapy as blood pressure permits 3. Consider digoxin if/when needed for heart rate control 4. Resume anticoagulation (Eliquis) and antiplatelet therapy (Clopidogrel) when determined to be safe 5. Dr. Marks is covering the service on the weekend if questions or cardiac concerns arise. Admission and Anticipated Discharge Date Admission Date: January 11, 2023 Supervising Physician Co-Signing Physician Notes Patient seen and examined at the bedside. No changes overnight. Remains on norepinephrine. Denies chest pain or shortness of breath. PE: VSS. Heart: Irregular rhythm. Normal S1S2. No murmur. Lungs: clear B/L. No R/R/W. Ext: No edema. A/P: Agree with above PA-C history, physical exam, assessment and plan. 77-year-old female admitted with rhabdomyolysis, seizure, acute renal failure, anemia, dehydration with hypovolemic shock and possible sepsis. Mildly elevated troponin secondary to acute renal insufficiency, hypoperfusion, demand ischemia. No evidence of ACS/plaque rupture event. Echocardiogram demonstrates borderline hyperdynamic LV function without regional wall motion abnormality. Telemetry reveals a paced rhythm. Cardiac medications including furosemide, lisinopril, clonidine, atorvastatin remain on hold. Continue beta-ann-marie as blood pressure permits. Consider addition of digoxin as needed for heart rate control. Further management as per internal medicine and critical care. Cardiology will sign off. Please call with questions. Subjective Patient seen and examined. Chart, medications, and telemetry reviewed. Somnolent, lethargic, intermittently answering questions appropriately Denies chest pain, difficulty breathing, or palpitations 1 of 2 blood cultures from January 11, 2023 with gram-positive cocci in clusters. Telemetry: Atrial fibrillation. Ventricular paced. Short run of nonsustained ventricular tachycardia versus A-fib with aberrancy Echo on January 12, 2023: EF 65 to 70%. Mild concentric LVH. Septal motion consistent with conduction abnormality. Normal RV size, with hyperdynamic function. Poorly visualized valvular anatomy, without significant stenosis or regurgitation Review of Systems Review of Systems: A Complete and Accurate Review of Systems was unable to be obtained. Physical Exam Physical Exam: General: Alert to person and place. Overall improved from initial evaluation in the ER yesterday morning HENT: Normocephalic. Atraumatic. Eyes: PER. Neck: Neck veins are flat. Heart: Irregular at 100 at 90 bpm. + Systolic murmur. No rub. Lungs: Scattered rhonchi. Abdomen: +BS. Soft. Nontender. No masses or organomegaly. + Horne catheter Extremities: No cyanosis. No edema. Pulses: radial=2/4, posterior tibial=1/4. Results & Data Vital Signs (Past 12 Hours) Vital Signs Temp Pulse Resp BP Pulse Ox O2 Del Method 01/13/23 07:30 36.9 C 99 H 15 116/76 95 Room Air 01/13/23 07:00 36.8 C 94 H 24 120/66 94 Room Air 01/13/23 06:30 36.8 C 91 H 17 105/57 L 95 Room Air 01/13/23 06:00 36.7 C 86 22 124/68 98 Room Air 01/13/23 05:30 36.7 C 88 19 102/57 L 94 Room Air 01/13/23 05:00 36.7 C 91 H 24 117/64 95 Room Air 01/13/23 04:30 36.7 C 91 H 17 97/61 L 95 Room Air 01/13/23 04:00 36.7 C 92 H 18 108/59 L 96 Room Air 01/13/23 03:30 36.8 C 86 15 97/51 L 94 Room Air 01/13/23 03:00 36.9 C 87 17 88/50 L 94 Room Air 01/13/23 02:31 37.0 C 87 20 85/50 L 95 Room Air 01/13/23 02:00 37.1 C 86 20 91/50 L 93 Room Air 01/13/23 01:30 37.2 C 89 19 85/50 L 96 Room Air 01/13/23 01:00 37.2 C 97 H 17 93/52 L 96 Room Air 01/13/23 00:30 37.3 C 102 H 18 101/61 95 Room Air 01/13/23 00:00 37.3 C 102 H 16 99/60 L 95 Room Air 01/12/23 23:00 37.3 C 100 H 20 93/68 L 97 Room Air 01/12/23 22:30 37.3 C 95 H 20 118/69 96 Room Air 01/12/23 22:00 37.3 C 86 18 139/63 95 Room Air Laboratory Results Cardiac Enzymes 01/12/23 01/12/23 Range/Units 14:42 14:42 AST 38 Cancelled (13-39) U/L CBC 01/12/23 01/12/23 01/13/23 Range/Units 14:43 17:42 04:53 WBC 14.16 H 11.10 H (4.8-10.8) K/ul RBC 2.75 L 2.53 L (4.20-5.40) M/uL Hgb 7.4 L 8.3 L 7.6 L (12.0-16.0) g/dl Hct 22.1 L 23.9 L 21.9 L (37.0-47.0) % Plt Count 146 133 (130-400) K/uL Comprehensive Metabolic Panel 01/12/23 01/12/23 01/13/23 Range/Units 14:42 14:42 04:53 Sodium 139 146 H (136-145) mmol/L Potassium 3.9 TNP (3.5-5.1) mmol/L Chloride 107 107 (98-107) mmol/L Carbon Dioxide 15 L 24 (21-32) mmol/L BUN 146 H 110 H D (6-23) mg/dl Creatinine 3.47 H D 2.62 H D (0.6-1.2) mg/dl Glucose 114 H 159 H (70-99(Fasting)) mg/dl Calcium 7.5 L 7.6 L (8.6-10.3) mg/dl Direct Bilirubin 0.1 Cancelled (0-0.2) mg/dl AST 38 Cancelled (13-39) U/L ALT 16 Cancelled (7-52) U/L Alkaline Phosphatase 43 Cancelled (34-104) U/L Total Protein 4.8 L D Cancelled (6.0-8.3) gm/dl Albumin 2.6 L Cancelled (3.4-5.0) gm/dl 01/13/23 Range/Units 05:38 Sodium (136-145) mmol/L Potassium 3.0 L D (3.5-5.1) mmol/L Chloride (98-107) mmol/L Carbon Dioxide (21-32) mmol/L BUN (6-23) mg/dl Creatinine (0.6-1.2) mg/dl Glucose (70-99(Fasting)) mg/dl Calcium (8.6-10.3) mg/dl Direct Bilirubin (0-0.2) mg/dl AST (13-39) U/L ALT (7-52) U/L Alkaline Phosphatase (34-104) U/L Total Protein (6.0-8.3) gm/dl Albumin (3.4-5.0) gm/dl Intake and Output 01/12/23 01/13/23 01/13/23 22:59 06:59 14:59 Intake Total 2200.296 / 5862.834 1435.133 / 5862.834 438.108 / 438.108 Output Total 1350 / 3075 1325 / 3075 375 / 375 Balance 850.296 / 2787.834 110.133 / 2787.834 63.108 / 63.108 Intake: IV 2200.296 / 5742.834 1315.133 / 5742.834 438.108 / 438.108 Norepinephrine/D5w 4 mg In 250 217.969 / 394.674 171.80 / 394.674 33.108 / 33.108 ml @ 0.1 MCG/KG/MIN 21.75 mls/ hr IV .[id number] [facility] Rx#:[id number] Piperacillin/Tazobactam 4.5 gm 120.0 / 120.0 120 / 120 In Dextrose 5% 100 ml @ 30 mls/ hr IV Q12H [facility] Rx#:[id number] Plasma-Lyte A 1,000 ml @ 100 1216.667 / 2360.000 1143.333 / 2360.000 mls/hr IV .Q10H [facility] Rx#: [id number] Potassium Chloride / Wtr 10 meq 285 / 285 In 100 ml @ 100 mls/hr IV Q1H [facility] Rx#:[id number] Sodium Bicarbonate 8.4% 150 meq 487.5 / 487.5 Potassium Chloride 20 meq In Dextrose 5% 1,000 ml @ 125 mls/ hr IV .Q9H17M [facility] Rx#:[id number] Vasopressin 20 units In 0.9 % 55.660 / 55.660 Sodium Chloride 100 ml @ 0 UNIT /MIN IV .Q0M [facility] Rx#:[id number] levETIRAcetam 250 mg In 0.9 % 102.5 / 205.0 Sodium Chloride 100 ml @ 420 mls/hr IV Q12H [facility] Rx#:[id number] Oral 0 / 120 120 / 120 Output: Urine Amount (Catheter) 1350 / 3075 1325 / 3075 375 / 375 Temp Sensing Horne 1350 / 3075 1325 / 3075 375 / 375 # Bowel Movements 0 / 0 0 / 0 Other: Weight 57.4 kg Weight Measurement Method Built in [facility] Diagnostic Findings Cardiac Enzymes 01/12/23 01/12/23 Range/Units 14:42 14:42 AST 38 Cancelled (13-39) U/L CBC 01/12/23 01/12/23 01/13/23 Range/Units 14:43 17:42 04:53 WBC 14.16 H 11.10 H (4.8-10.8) K/ul RBC 2.75 L 2.53 L (4.20-5.40) M/uL Hgb 7.4 L 8.3 L 7.6 L (12.0-16.0) g/dl Hct 22.1 L 23.9 L 21.9 L (37.0-47.0) % Plt Count 146 133 (130-400) K/uL Comprehensive Metabolic Panel 01/12/23 01/12/23 01/13/23 Range/Units 14:42 14:42 04:53 Sodium 139 146 H (136-145) mmol/L Potassium 3.9 TNP (3.5-5.1) mmol/L Chloride 107 107 (98-107) mmol/L Carbon Dioxide 15 L 24 (21-32) mmol/L BUN 146 H 110 H D (6-23) mg/dl Creatinine 3.47 H D 2.62 H D (0.6-1.2) mg/dl Glucose 114 H 159 H (70-99(Fasting)) mg/dl Calcium 7.5 L 7.6 L (8.6-10.3) mg/dl Direct Bilirubin 0.1 Cancelled (0-0.2) mg/dl AST 38 Cancelled (13-39) U/L ALT 16 Cancelled (7-52) U/L Alkaline Phosphatase 43 Cancelled (34-104) U/L Total Protein 4.8 L D Cancelled (6.0-8.3) gm/dl Albumin 2.6 L Cancelled (3.4-5.0) gm/dl 01/13/23 Range/Units 05:38 Sodium (136-145) mmol/L Potassium 3.0 L D (3.5-5.1) mmol/L Chloride (98-107) mmol/L Carbon Dioxide (21-32) mmol/L BUN (6-23) mg/dl Creatinine (0.6-1.2) mg/dl Glucose (70-99(Fasting)) mg/dl Calcium (8.6-10.3) mg/dl Direct Bilirubin (0-0.2) mg/dl AST (13-39) U/L ALT (7-52) U/L Alkaline Phosphatase (34-104) U/L Total Protein (6.0-8.3) gm/dl Albumin (3.4-5.0) gm/dl Intake and Output 01/12/23 01/13/23 01/13/23 22:59 06:59 14:59 Intake Total 2200.296 / 5862.834 1435.133 / 5862.834 438.108 / 438.108 Output Total 1350 / 3075 1325 / 3075 375 / 375 Balance 850.296 / 2787.834 110.133 / 2787.834 63.108 / 63.108 Intake: IV 2200.296 / 5742.834 1315.133 / 5742.834 438.108 / 438.108 Norepinephrine/D5w 4 mg In 250 217.969 / 394.674 171.80 / 394.674 33.108 / 33.108 ml @ 0.1 MCG/KG/MIN 21.75 mls/ hr IV .[id number] [facility] Rx#:[id number] Piperacillin/Tazobactam 4.5 gm 120.0 / 120.0 120 / 120 In Dextrose 5% 100 ml @ 30 mls/ hr IV Q12H [facility] Rx#:[id number] Plasma-Lyte A 1,000 ml @ 100 1216.667 / 2360.000 1143.333 / 2360.000 mls/hr IV .Q10H [facility] Rx#: [id number] Potassium Chloride / Wtr 10 meq 285 / 285 In 100 ml @ 100 mls/hr IV Q1H [facility] Rx#:[id number] Sodium Bicarbonate 8.4% 150 meq 487.5 / 487.5 Potassium Chloride 20 meq In Dextrose 5% 1,000 ml @ 125 mls/ hr IV .Q9H17M [facility] Rx#:[id number] Vasopressin 20 units In 0.9 % 55.660 / 55.660 Sodium Chloride 100 ml @ 0 UNIT /MIN IV .Q0M [facility] Rx#:[id number] levETIRAcetam 250 mg In 0.9 % 102.5 / 205.0 Sodium Chloride 100 ml @ 420 mls/hr IV Q12H [facility] Rx#:[id number] Oral 0 / 120 120 / 120 Output: Urine Amount (Catheter) 1350 / 3075 1325 / 3075 375 / 375 Temp Sensing Horne 1350 / 3075 1325 / 3075 375 / 375 # Bowel Movements 0 / 0 0 / 0 Other: Weight 57.4 kg Weight Measurement Method Built in [facility] (1) ARF (acute renal failure) Acute renal failure type: unspecified Qualified Code(s): N17.9 - Acute kidney failure, unspecified (2) Rhabdomyolysis Rhabdomyolysis type: non-traumatic Qualified Code(s): M62.82 - Rhabdomyolysis
--- NOTE | 2023-01-13 10:10 | Gastrointestinal Consultation ---
Date of Consultation January 13, 2023 Assessment & Plan (1) MARIELLA (acute kidney injury): (2) Breakthrough seizure: (3) Atrial fibrillation with RVR: (4) Shock circulatory: (5) Rhabdomyolysis: (6) Anemia: Plan Patient is a 77 years old female who was admitted after found laying in the garage by granddaughter who witnessed seizure activity, noted to be in rapid A- fib on presentation also with MARIELLA, rhabdomyolysis and septic shock. She is currently on pressure support and is lethargic on my examination. GI had been consulted as patient's blood count has been trending down the last couple of days, current hemoglobin 7.6 without gross GI bleeding signs. She reportedly had hematochezia with a week ago prior to admission and had been on Eliquis for history of DVT but medication was held per PCPs direction in light of the hematochezia. Last bowel movement charted during this admission was yesterday with stools described as liquid and brown in color. No signs of melena or hematochezia per RN report this morning. Given patient's complicated medical illness, and currently on pressure support, she would be unstable and at high risk for any endoscopy procedures requiring anesthesia. Status we will defer EGD or colonoscopy. Recommend checking stool cx and Cdiff if diarrhea occurs. Would increase her Protonix IV dose to twice daily. Monitor blood count and transfuse PRBC for goal hemoglobin above 7. Continue to monitor and please recall GI if she develops any gross GI bleeding symptoms. Otherwise we will follow along peripherally. Recall PRN. Supervising Physician Co-Signing Physician Notes Saw and evaluated the patient. We were consulted with regard to a history of hematochezia as an outpatient. Of note the patient had been seen by one of my partners several weeks ago at which time recommendations for an outpatient colonoscopy for being completed. The patient notes no recent bleeding, and is admitted for complications related to rhabdomyolysis. Physical examination No abdominal tenderness noted Impression: Patient with a history of scant hematochezia, as the patient presently does not have evidence of active bleeding and has many comorbid problems requiring an ICU admission I would not recommend elective colonoscopy for the present time. We would recommend an outpatient colonoscopy in 6 to 8 weeks after she is recovered from her rhabdomyolysis and renal dysfunction. Please call with any additional questions or concerns. History of Present Illness Reason for Consultation: Anemia, history of hematochezia Requesting Physician: Dr. Yonny Crawford Attending Physician: Dr. Roxy Roberts History of Present Illness Unable to obtain history from patient due to her lethargic and altered mental status. Chart has been reviewed. Ms. Tong is a 77 years old female with past medical histories including chronic systolic and diastolic heart failure status post ICD placement, CAD status post cardiac stent placements, left bundle branch block, aortic regurgitation, AAA, hypertension, hyperlipidemia, COPD, diabetes mellitus type 2, HCV status posttreatment, chronic anemia with baseline hemoglobin around 9-10, DVT on Eliquis, seizure disorder on Keppra treatment and ongoing tobacco abuse. She presented to the ED 2 days ago after found laying in the garage by granddaughter who witnessed seizure activity lasting for about a minute. Patient had not been taking her Keppra for the last couple of days prior to admission. She was also found to be in rapid A-fib on presentation currently rate controlled, has MARIELLA, rhabdomyolosis and in shock. Blood ct growing GPCs. Our service is consulted as patient's blood count has been trending down since admission from hemoglobin around 8 to mid 7s with positive FOBT. There was report of patient having hematochezia last week, and her Eliquis was held per direction of her PCP. It is noted that patient was last seen by GI service few weeks ago while she was admitted and noted to have po ssible colitis on imaging studies. Follow-up colonoscopy had been recommended in the outpatient setting but patient has not been able to be contacted for appointment. Last charted bowel movement was yesterday, with stools described as brown and liquid. RN this morning reports that patient was awake enough to eat some bananas independently. However on my exam she seems very lethargic and unable to follow much commands or answer questions. She received oxycodone around midnight. Levophed was trying to get weaned down but she developed hypotension with blood pressure 60s over 40s and Levophed was then titrated back up. Colonoscopy 2012: Hyperplastic polyp, diverticulosis, unremarkable random colon biopsies Allergies Allergy/AdvReac Type Severity Reaction Status Date / Time NSAIDS (Non-Steroidal AdvReac Severe GI ISSUES Verified 12/17/22 20:25 Anti-Inflamma Qjakdql-NNS-TiK Reductase AdvReac Severe LIVER Verified 12/17/22 20:25 Inhibitor FUNCTION [Dionjhu-Ssz-Ujq Reductase ELEVATES Inhibitor] isosorbide AdvReac Intermediate VOMIT/HEADA Verified 12/17/22 20:25 CARLOS tramadol AdvReac Intermediate VOMITING Verified 12/17/22 20:25 Home Medications Medication Instructions Recorded Confirmed Type clonidine HCl 0.1 mg tablet 0.05 mg PO QAM #0 tabs 03/30/17 01/11/23 History nitroglycerin 0.4 mg sublingual 0.4 mg sublingual DIRECTED PRN 03/30/17 01/11/23 History tablet Chest Pain #0 BTLS pantoprazole 40 mg tablet,delayed 40 mg PO DAILYBB #30 tabs 03/30/17 01/11/23 History release lisinopril 20 mg tablet 20 mg PO DAILY ##0 07/27/17 01/11/23 History metoprolol succinate 100 mg 100 mg PO DAILY #0 tabs 07/27/17 01/11/23 History tablet,extended release 24 hr oxycodone 5 mg tablet 5 mg PO Q6H PRN Severe Pain (Scale 08/16/20 01/11/23 History Score 7-10) trazodone 50 mg tablet 25 mg PO HS 08/16/20 01/11/23 History atorvastatin 40 mg tablet 20 mg PO DAILY 10/05/22 01/11/23 History furosemide 40 mg tablet 40 mg PO QAM 10/05/22 01/11/23 History potassium chloride 20 mEq 20 meq PO DAILY 10/05/22 01/11/23 History tablet,extended release(part/cryst) albuterol sulfate 90 mcg/actuation 2 puff inhalation Q4H PRN 12/17/22 01/11/23 History aerosol inhaler Shortness Of Breath Or Wheezing gabapentin 300 mg capsule 300 mg PO TID 12/17/22 01/11/23 History hydroxyzine HCl 25 mg tablet 25 mg PO TID PRN Anxiety 12/17/22 01/11/23 History ondansetron HCl 4 mg tablet 4 mg PO Q8H PRN Nausea 12/17/22 01/11/23 History umeclidinium 62.5 mcg-vilanterol 1 inh inhalation DAILY 12/17/22 01/11/23 History 25 mcg/actuation powdr for inhalation (Anoro Ellipta) apixaban 5 mg tablet (Eliquis) 5 mg PO BID #60 tabs 12/19/22 01/11/23 Rx clopidogrel 75 mg tablet 75 mg PO QAM #30 tabs 12/19/22 01/11/23 Rx venlafaxine 75 mg capsule,extended 225 mg PO QAM 12/27/22 01/11/23 History release 24 hr levetiracetam 500 mg tablet 500 mg PO AMHS 01/11/23 01/11/23 History Patient History Medical History Acute anterior wall OK Anxiety CAD (coronary artery disease) "OK 2006. S/P PCI/Stent RCA" Chronic hepatitis C without hepatic coma Chronic pain CKD (chronic kidney disease), stage III COPD, group C, by GOLD 2017 classification Elevated troponin GERD (gastroesophageal reflux disease) H/O cardiac pacemaker HTN (hypertension) Hyperlipidemia Hypoxia Ischemic cardiomyopathy LBBB (left bundle branch block) Migraine OA (osteoarthritis) Respiratory acidosis Surgical History H/O release of tendon H/O: hysterectomy History of carpal tunnel surgery History of implantable cardioverter-defibrillator (ICD) placement Hx of cataract surgery S/P cardiac cath S/P cholecystectomy Family History Father , age 81 of lung cancer Prostate cancer Heart disease Thyroid disorder Lung cancer Mother , age 80 with COPD Cancer Cervical Coronary heart disease s/p CABG Diabetes COPD (chronic obstructive pulmonary disease) Social History Smoking Status: Current every day smoker Tobacco Type: Cigarettes Age Started Using Tobacco: 23; packs per day: 0.5; Cigarettes Per Day: 4; Second Hand Exposure: No; Do You Dip or Chew Tobacco: No; Hx Alcohol Use: No Hx Substance Use: No Preferred Language: Colombian Communication Ability: Impaired Ultrasound Applications Specialist Required: No Beliefs That Will Affect Care: None Current Living Situation: Alone current occupational status: retired 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 [employer] Other Information That Helps Us Care for You: No Feels Safe at Home: Declines to Answer Assistive Devices: Glasses Review of Systems Review of Systems: Unobtainable due to reduced consciousness Physical Exam Constitutional: WD/WN, vitals as above cooperative, comfortable and + lethargic Eyes: PERRL, conjunctivae normal, anicteric sclerae ENMT: external ear and nose normal, oropharynx normal Respiratory: No signs of respiratory distress noted, bilateral lung sounds diminished Cardiovascular: RRR, no murmur, no edema Gastrointestinal (Abdomen): normal bowel sounds, soft, nontender, no hepatosplenomegaly Skin: no rashes, warm and dry no jaundice Psychiatric: Lethargic, not able to hold conversation or follow much commands. Lymphatic: no lymphedema Results & Data Vital Signs (Past 12 Hours) Vital Signs Temp Pulse Resp BP Pulse Ox O2 Del Method 01/13/23 09:45 36.9 C 79 18 93 01/13/23 09:45 92/51 L 01/13/23 09:44 36.9 C 80 19 95 01/13/23 09:44 36.9 C 80 22 91/50 L 94 Room Air 01/13/23 09:30 36.9 C 98 H 21 69/46 L 95 Room Air 01/13/23 09:15 36.9 C 83 18 93 01/13/23 09:09 36.9 C 90 22 94/62 L 94 Room Air 01/13/23 09:00 36.9 C 86 17 88/50 L 96 Room Air 01/13/23 08:30 37.0 C 88 19 97/53 L 92 Room Air 01/13/23 08:00 37.0 C 96 H 24 91/65 L 94 Room Air 01/13/23 07:56 37.0 C 94 H 20 90/55 L 01/13/23 07:30 36.9 C 99 H 15 116/76 95 Room Air 01/13/23 07:00 36.8 C 94 H 24 120/66 94 Room Air 01/13/23 06:30 36.8 C 91 H 17 105/57 L 95 Room Air 01/13/23 06:00 36.7 C 86 22 124/68 98 Room Air 01/13/23 05:30 36.7 C 88 19 102/57 L 94 Room Air 01/13/23 05:00 36.7 C 91 H 24 117/64 95 Room Air 01/13/23 04:30 36.7 C 91 H 17 97/61 L 95 Room Air 01/13/23 04:00 36.7 C 92 H 18 108/59 L 96 Room Air 01/13/23 03:30 36.8 C 86 15 97/51 L 94 Room Air 01/13/23 03:00 36.9 C 87 17 88/50 L 94 Room Air 01/13/23 02:31 37.0 C 87 20 85/50 L 95 Room Air 01/13/23 02:00 37.1 C 86 20 91/50 L 93 Room Air 01/13/23 01:30 37.2 C 89 19 85/50 L 96 Room Air 01/13/23 01:00 37.2 C 97 H 17 93/52 L 96 Room Air 01/13/23 00:30 37.3 C 102 H 18 101/61 95 Room Air 01/13/23 00:00 37.3 C 102 H 16 99/60 L 95 Room Air 01/12/23 23:00 37.3 C 100 H 20 93/68 L 97 Room Air 01/12/23 22:30 37.3 C 95 H 20 118/69 96 Room Air (5) Rhabdomyolysis Rhabdomyolysis type: non-traumatic Qualified Code(s): M62.82 - Rhabdomyolysis
[2023-01-13 10:38] LABS: BUN Creatinine Ratio 41.3 (10-20); Calcium 7.6 mg/dl (8.6-10.3); Creatinine Clr Calc Pharmacy 16.9 ml/min; Est GFR (African American) 22.7 ml/min; Est GFR (Non-African American) 19.6 ml/min; Potassium 3.5 mmol/L (3.5-5.1)
[2023-01-13] MEDS: levETIRAcetam 250 MG in 0.9 % SODIUM CHLORIDE 100 ML IV SCH (10:54)
[2023-01-13] MEDS ORDERED: PANTOprazole 40 MG in SYRINGE 0 ML IV SCH ×2 (11:00→21:00)
[2023-01-13] MEDS ORDERED: VANCOMYCIN HCL 1,250 MG in SODIUM CHLORIDE 0.9% 250 ML IV ONE (11:00)
[2023-01-13] MEDS: POTASSIUM CHLORIDE 40 MEQ in D5W AND 1/2NSS 1,000 ML IV SCH (11:01)
[2023-01-13] MEDS: levETIRAcetam 500 MG in 0.9 % SODIUM CHLORIDE 100 ML IV SCH ×2 (11:02→23:27)
[2023-01-13] MEDS: NOREPINEPHRINE/D5W 4 MG/250 ML PLCT IV SCH (11:07)
[2023-01-13] MEDS: PANTOprazole 40 MG TAB PO SCH ×2 (11:12→21:59)
[2023-01-13] MEDS: VENLAFAXINE HCL XR 37.5 MG CAPXR PO SCH (11:42)
--- NOTE | 2023-01-13 14:28 | Hospitalist Progress Note ---
Date of Service January 13, 2023 Assessment & Plan (1) ARF (acute renal failure): Plan: 76-year-old female with PMH of chronic systolic/diastolic heart failure s/p ICD [recent EF of 60 to 65%, TTE 2022], CAD s/p stent, chronic LBBB, mild aortic regurgitation, AAA, HTN, HLD, COPD, DM 2 diet controlled, HCV status post treatment, chronic anemia [baseline hemoglobin of 10], history of DVT on Eliquis [currently on hold as per PCP note], seizure disorder on Keppra treatment, right nasopharyngeal mass, ongoing tobacco abuse presented to the ED 01/11 after being found lying in the garage by her granddaughter who also witnessed seizure activity lasting for a minute. Patient reported to be not taking her Keppra the last couple of days [employer]. Of note, she was recently seen at PCP office/concern for hematochezia/FOBT was positive/patient was instructed to stop Eliquis temporarily until repeat lab work/patient unaware of instruction to hold Eliquis. She is being managed for the following: Likely metabolic versus toxic versus both encephalopathy: Hypoglycemia/hypothermia/elevated BUN at presentation ? Breakthrough seizure: Pt noted to have seizure per pt's grand daughter per HnP note. Fall: Patient was found lying in the garage floor by granddaughter. CPK elevated at 552, does not qualify for rhabdomyolysis diagnosis. History of seizure disorder:Recent confinement in September 2022 with altered mental status when patient was noted to have myoclonic jerk and neurology evaluated, was discharged on Keppra 500 mg bid. Imagings at presentation: C-spine CT/chest and abdomen x-ray/head CT/bilateral knee x-ray/bilateral ankle x-ray: With no acute findings US venous Doppler: No DVT. Chronic superficial thrombus within the greater saphenous vein. CTAP with 1.5 cm hypodensity projecting from the lower pole of left kidney,?? Complicated cyst. Ultrasound recommended. Renal ultrasound: Suggestive of complex cyst. No hydronephrosis. Patient more awake but not very much communicative, denied any pain to me. Eating ok Continue renally dosed Keppra in IV form. Neurology evaled, appreciate. Urine tox screen neg Hypothermia and hypoglycemia: likely 2/2 starvation and being out in garage. Warming blanket for hypothermia. Hypoglycemia protocol. Shock: At admissionWBC of 16.38 K (procal neg), temperature 31.2 C, pulse rate elevated, blood pressure soft with continued to deteriorate despite 3.5 L IV fluid hydration in the ED --> transferred to ICU for pressor support. No clear source of sepsis. Holding home diuretics and blood pressure medications. Follow admitting blood and urine culture, empiric Zosyn, vanc give per icu today. Patient received cefepime in ED. Pt under icu care. Still requiring pressor. Transaminitis/Lipase elevation/increase blood lactic acid level: likely from shock, trend. Getting IV fluids. Getting pressor support. Improving. Acute kidney injury over CKD stage III: Admitting BUN of 181 and creatinine of 4.27. Hold nephrotoxins. Nephrology on board. IV fluid. Labs in AM. AGMA: likely 2/2 starvation ketosis. ABG reviewed, Nephro on board, appreciate recs. GI Bleed: Recent PCP visit for hematochezia, FOBT positive, was instructed to hold Eliquis transiently and get the labs repeated as outpatient. Currently Eliquis and Plavix on hold. Uremia noted. Continue with IV fluids, PPI twice daily, GI evaled --appreciate. Trend hemoglobin. Currently in ICU care. Afib w/ RVR: EKG w/ Afib rvr at presentation, likely 2/2 acute illness (above). Cardio on board, rate better now. Likely demand ischemia: Likely secondary to A-fib RVR and acute illness. Troponin elevated at presentation, downtrending. EKG with A-fib RVR. Echo with EF of 65 to 70%, left ventricle normal in size and systolic function. Possible functional disability: given recurrent admissions/patient current living situation detrimental to receiving important communications in PCP's office (e.g. message to hold Eliquis). CM consult. PT/OT. Recent acute ischemic right MCA stroke:Continue with statin low-dose, follow-up with neurology in 2-3 weeks on DC. Continue with Eliquis and Plavix as able (see above). History of DVT:history of RLE DVT, continue with Eliquis as able [see above]. Recent history of incidental finding of right nasopharyngeal mass:Follow-up ENT as an outpatient. Appears outpatient ENT evaluation is scheduled for January 2023 per d/w patient in the past. Other chronic medical conditions:c/w or resume home meds as and when able. Systolic/diastolic heart failure s/p ICD (recent EF of 60 to 65%, TTE 2022). CAD status post stent chronic LBBB mild aortic regurgitation AAA, stable at 3 cm measurement as of 2022 outpatient aortic duplex hypertension hyperlipidemia, on statin Rx COPD: no wheezing, c/w home inhalers as able. Was discharged on 2L O2 with rest and ambulation in her last discharge. DM2 diet-controlled, Documented inpatient hemoglobin A1c of 7.1 from 2020. A1C 6.3 in November HCV status post tx chronic anemia, hemoglobin at baseline chronic pain ongoing tobacco abuse: Continues to smoke despite multiple counseling . 3 to 4 cigarettes daily.Nicotine patch as needed DVT Px: scd Full Code. DVT prophylaxis. SCDs Re: Possible GIB Full code Mr. Earl Tong (son), contact #[phone]. Ms. Lacy Tong (daughter), contact # [phone]. Ms. Nadiya Tong (daughter), contact #[phone]. Admission and Anticipated Discharge Date Admission Date: January 11, 2023 Subjective Patient seen and examined at bedside. Multiple active issues. Patient was sitting up in bed, eating her lunch, appears confused, not much communicative, denies pain, did not answer most of the question, was able to cooperate through exam somewhat. Per RN, patient with good urine output, no new acute event overnight, eating okay. Physical Exam Physical Exam: GENERAL: alert confused, no respiratory distress, On RA. SKIN: Pallor, warm HEENT: Pale palpebral conjunctivae, no ptosis, dry buccal mucosa NECK : Supple, no tenderness CHEST : Decreased breath sounds, no tenderness HEART : RRR, no obvious murmurs ABDOMEN: Some distention, no epigastric tenderness EXTREMITIES : no LE swelling, no LE tenderness, no other conspicuous deformities noted NEUROLOGIC : drowsy lethargic, no facial asymmetry, slightly hard of hearing, gait and stance not assessed Results & Data Results & Data Vital Signs (Past 12 Hours) Vital Signs Temp Pulse Resp BP Pulse Ox O2 Del Method 01/13/23 14:00 37.0 C 78 21 86/51 L 94 Room Air 01/13/23 13:44 97 01/13/23 13:30 37.0 C 83 23 109/61 98 Room Air 01/13/23 13:00 37.1 C 78 19 90/48 L 96 Room Air 01/13/23 12:45 37.1 C 82 20 94/47 L 95 Room Air 01/13/23 12:00 37.1 C 91 H 21 99/60 L 94 Room Air 01/13/23 11:30 37.0 C 91 H 18 103/55 L 95 Room Air 01/13/23 11:15 37.0 C 89 18 106/64 93 Room Air 01/13/23 11:01 36.9 C 86 16 100/62 95 Room Air 01/13/23 10:45 36.9 C 83 17 78/51 L 94 Room Air 01/13/23 10:30 36.9 C 76 24 96/54 L Room Air 01/13/23 10:15 36.9 C 92 H 17 122/60 96 Room Air 01/13/23 09:45 36.9 C 79 18 93 01/13/23 09:45 92/51 L 01/13/23 09:44 36.9 C 80 19 95 01/13/23 09:44 36.9 C 80 22 91/50 L 94 Room Air 01/13/23 09:30 36.9 C 98 H 21 69/46 L 95 Room Air 01/13/23 09:15 36.9 C 83 18 93 01/13/23 09:09 36.9 C 90 22 94/62 L 94 Room Air 01/13/23 09:00 36.9 C 86 17 88/50 L 96 Room Air 01/13/23 08:30 37.0 C 88 19 97/53 L 92 Room Air 01/13/23 08:00 37.0 C 96 H 24 91/65 L 94 Room Air 01/13/23 07:56 37.0 C 94 H 20 90/55 L 01/13/23 07:30 36.9 C 99 H 15 116/76 95 Room Air 01/13/23 07:00 36.8 C 94 H 24 120/66 94 Room Air 01/13/23 06:30 36.8 C 91 H 17 105/57 L 95 Room Air 01/13/23 06:00 36.7 C 86 22 124/68 98 Room Air 01/13/23 05:30 36.7 C 88 19 102/57 L 94 Room Air 01/13/23 05:00 36.7 C 91 H 24 117/64 95 Room Air 01/13/23 04:30 36.7 C 91 H 17 97/61 L 95 Room Air 01/13/23 04:00 36.7 C 92 H 18 108/59 L 96 Room Air 01/13/23 03:30 36.8 C 86 15 97/51 L 94 Room Air 01/13/23 03:00 36.9 C 87 17 88/50 L 94 Room Air 01/13/23 02:31 37.0 C 87 20 85/50 L 95 Room Air (1) ARF (acute renal failure) Acute renal failure type: unspecified Qualified Code(s): N17.9 - Acute kidney failure, unspecified
--- NOTE | 2023-01-13 15:54 | Nephrology Progress Note ---
Date of Service January 13, 2023 Assessment & Plan (1) ARF (acute renal failure): Plan: improving stage 3 MARIELLA w/ baseline creatinine most recently 1.1 during inpatient stay here in past month. behaving like prerenal process; cannot r/o ischemic ATN component. p/w creatinine 4.3, down to 2.6 this am. in the setting of AG metabolic acidosis, profound hyperphosphatemia. hyperchloremia has emerged since arrival. History is unclear; CK not c/w rhabdomyolysis. notably no ketonuria. ? rp BUN elevation may reflect heme in GI tract >concern for sepsis given hypothermia, leukocytosis, MARIELLA, hypotension, elevated lactate; however no clear/documented source > continue zosyn -on plasmalyte, D5W NS >> hypernatremia from AM improved -ordered ABG >> shows straight up AG metabolic acidosis from renal failure >f/u pending keppra level (hx is inconsistent and if did take this w/ worsening renal failure could cause ataxia/gait instability/altered MS) > continue pressor support to keep MAP > 60 > K aggressively repleted Care coordinated w/ Godwin Crawford and Edmundo Admission and Anticipated Discharge Date Admission Date: January 11, 2023 Subjective seen on AM rounds today at about 0810; vaso off since 2200 yesterday approx. NE remained this am. more awake but tired, not taking much po. cardiology, GI following. denies musculoskeletal pain or sob. no edema. she is still deeply fatigued, which limits ROS. Review of Systems Review of Systems: Other (limited by fatigue pt) Physical Exam Constitutional: well developed, + ill appearing, + thin, + altered mental status and + lethargic; no acute distress Eyes: EOM intact bilaterally ENMT: Ears: no external ear abnormality Nose: no external nose abnormality Mouth: + dry oral mucous membranes Neck: no nuchal rigidity Respiratory: normal respiratory effort and + prolonged expiratory phase; no cough Auscultation: + diminished lung sounds and + rhonchi Cardiovascular: Rate/Rhythm: regular rate and regular rhythm Extremities: no edema Gastrointestinal (Abdomen): Inspection/Auscultation: + abdomen distended (slight) and normal bowel sounds Percussion/Palpation: abdomen soft; abdomen nontender Musculoskeletal: Extremities: strength 5/5 throughout Skin: no rashes, warm and dry Psychiatric: Orientation: oriented to person and oriented to place; + not alert Results & Data Vital Signs (Past 12 Hours) Vital Signs Temp Pulse Resp BP Pulse Ox Pulse Ox O2 Del Method 01/13/23 14:45 36.9 C 87 22 101/65 95 Room Air 01/13/23 14:30 36.9 C 82 20 96/57 L 95 Room Air 01/13/23 14:15 36.9 C 74 18 89/46 L 94 Room Air 01/13/23 14:32 97 01/13/23 14:00 37.0 C 78 21 86/51 L 94 Room Air 01/13/23 13:44 97 01/13/23 13:30 37.0 C 83 23 109/61 98 Room Air 01/13/23 13:00 37.1 C 78 19 90/48 L 96 Room Air 01/13/23 12:45 37.1 C 82 20 94/47 L 95 Room Air 01/13/23 12:00 37.1 C 91 H 21 99/60 L 94 Room Air 01/13/23 11:30 37.0 C 91 H 18 103/55 L 95 Room Air 01/13/23 11:15 37.0 C 89 18 106/64 93 Room Air 01/13/23 11:01 36.9 C 86 16 100/62 95 Room Air 01/13/23 10:45 36.9 C 83 17 78/51 L 94 Room Air 01/13/23 10:30 36.9 C 76 24 96/54 L Room Air 01/13/23 10:15 36.9 C 92 H 17 122/60 96 Room Air 01/13/23 09:45 36.9 C 79 18 93 01/13/23 09:45 92/51 L 01/13/23 09:44 36.9 C 80 19 95 01/13/23 09:44 36.9 C 80 22 91/50 L 94 Room Air 01/13/23 09:30 36.9 C 98 H 21 69/46 L 95 Room Air 01/13/23 09:15 36.9 C 83 18 93 01/13/23 09:09 36.9 C 90 22 94/62 L 94 Room Air 01/13/23 09:00 36.9 C 86 17 88/50 L 96 Room Air 01/13/23 08:30 37.0 C 88 19 97/53 L 92 Room Air 01/13/23 08:00 37.0 C 96 H 24 91/65 L 94 Room Air 01/13/23 07:56 37.0 C 94 H 20 90/55 L 01/13/23 07:30 36.9 C 99 H 15 116/76 95 Room Air 01/13/23 07:00 36.8 C 94 H 24 120/66 94 Room Air 01/13/23 06:30 36.8 C 91 H 17 105/57 L 95 Room Air 01/13/23 06:00 36.7 C 86 22 124/68 98 Room Air 01/13/23 05:30 36.7 C 88 19 102/57 L 94 Room Air 01/13/23 05:00 36.7 C 91 H 24 117/64 95 Room Air 01/13/23 04:30 36.7 C 91 H 17 97/61 L 95 Room Air 01/13/23 04:00 36.7 C 92 H 18 108/59 L 96 Room Air O2 Flow Rate 01/13/23 14:45 01/13/23 14:30 01/13/23 14:15 01/13/23 14:32 0 01/13/23 14:00 01/13/23 13:44 01/13/23 13:30 01/13/23 13:00 01/13/23 12:45 01/13/23 12:00 01/13/23 11:30 01/13/23 11:15 01/13/23 11:01 01/13/23 10:45 01/13/23 10:30 01/13/23 10:15 01/13/23 09:45 01/13/23 09:45 01/13/23 09:44 01/13/23 09:44 01/13/23 09:30 01/13/23 09:15 01/13/23 09:09 01/13/23 09:00 01/13/23 08:30 01/13/23 08:00 01/13/23 07:56 01/13/23 07:30 01/13/23 07:00 01/13/23 06:30 01/13/23 06:00 01/13/23 05:30 01/13/23 05:00 01/13/23 04:30 01/13/23 04:00 Laboratory Results 01/13/23 04:53 01/13/23 10:04 (1) ARF (acute renal failure) Acute renal failure type: unspecified Qualified Code(s): N17.9 - Acute kidney failure, unspecified
[2023-01-13 17:00] LABS: BUN Creatinine Ratio 42.2 (10-20); Calcium 7.4 mg/dl (8.6-10.3); Creatinine Clr Calc Pharmacy 19.4 ml/min; Est GFR (Non-African American) 23.3 ml/min; Potassium 3.4 mmol/L (3.5-5.1)
[2023-01-13 18:21] LABS: Hematocrit (blood only) 20.3 % (37.0-47.0); Hemoglobin 7.1 g/dl (12.0-16.0)
[2023-01-13] MEDS ORDERED: SODIUM CHLORIDE 0.9% 250 ML IV PRN (18:50)
[2023-01-14] MEDS: POTASSIUM CHLORIDE 40 MEQ in D5W AND 1/2NSS 1,000 ML IV SCH (00:04)
[2023-01-14] MEDS: PLASMA-LYTE A 1,000 ML IV SCH (00:05)
[2023-01-14] MEDS: ACETAMINOPHEN 325 MG TAB PO PRN (03:44)
[2023-01-14] MEDS: NOREPINEPHRINE/D5W 4 MG/250 ML PLCT IV SCH (04:30)
[2023-01-14 05:51] LABS: Hematocrit (blood only) 24.7 % (37.0-47.0); Hemoglobin 8.3 g/dl (12.0-16.0); Mean Corpuscular Hemoglobin 30.2 pg (25.0-34.0); Mean Corpuscular Hgb Conc 33.6 g/dL (32.0-36.0); Mean Corpuscular Volume 89.8 fL (80.0-100.0); Mean Platelet Volume 11.8 fL (9.4-12.4); Platelet Count 87 K/uL (130-400); Platelet Estimate Decreased (Normal); RDW Coefficient of Variation 16.4 % (11.5-14.5); RDW Standard Deviation 51.8 fL (36.4-46.3); Red Blood Count 2.75 M/uL (4.20-5.40); White Blood Count 10.19 K/ul (4.8-10.8)
[2023-01-14] MEDS: PIPERACILLIN/TAZOBACTAM 4.5 GM in DEXTROSE 5% 100 ML IV SCH ×3 (05:51→21:59)
[2023-01-14 06:01] LABS: Calcium 7.4 mg/dl (8.6-10.3); Creatinine Clr Calc Pharmacy 27.1 ml/min; Est GFR (African American) 40.4 ml/min; Est GFR (Non-African American) 34.8 ml/min; Phosphorus 1.6 mg/dl (2.5-4.9); Potassium 4.5 mmol/L (3.5-5.1)
[2023-01-14] MEDS ORDERED: SODIUM PHOSPHATE 3 MMOL/1 ML 5 ML VIAL IV STA (06:48)
[2023-01-14] MEDS ORDERED: SODIUM PHOSPHATE 15 MMOL in SODIUM CHLORIDE 0.9% 250 ML IV ONE (07:15)
[2023-01-14] MEDS: INSULIN ASPART PER UNIT CHARGE SC SCH ×4 (07:48→21:56)
--- NOTE | 2023-01-14 08:02 | Critical Care Progress Note ---
Date of Service January 14, 2023 Assessment & Plan (1) ARF (acute renal failure): (2) Acute ischemic right MCA stroke: (3) Rhabdomyolysis: (4) CKD (chronic kidney disease), stage III: (5) COPD, group C, by GOLD 2017 classification: (6) GERD (gastroesophageal reflux disease): (7) Metabolic encephalopathy: (8) Shock circulatory: (9) Transaminitis: Plan Reason Critically Ill: 77-year-old female with past medical history: Diastolic CHF, coronary artery disease s/p stent, A-fib, history of CVA, diabetes type 2, history of DVT present to the hospital for generalized weakness and fall for 2 days. She was found to be in rhabdo my cysts, MARIELLA and shock. Transferred to ICU for further management Neuro - -- S/p metabolic encephalopathy Multifactorial Elevated BUN, hypoglycemia when the patient came in CT head negative TSH 0.092 with normal free T4, sodium, calcium within normal limit --History of seizures On Keppra at home Cardiac - -- S/p shock Etiology is not clear No clear source of sepsis Random cortisol 32, would expect to be higher in somebody who was in shock, did get a dose of hydrocortisone on 01/12/2023 Continue vasopressor support to keep MAP greater than 65 2D echo 01/12/2023: EF 65-70%, mild concentric LVH, RV normal in size, grade 1 diastolic dysfunction --History of A-fib On apixaban and metoprolol at home for rate control --Elevated troponin Likely type II W[place] Continue to trend Respiratory - -- Not in any respiratory distress right now --History of COPD On Anoro at home GI - -- Transaminitis Likely from shock Continue to trend -- Elevated lipase Nonspecific Patient does not have any abdominal tenderness RENAL/LYTES - -- MARIELLA --> improving Monitor BUN/creatinine Avoid nephrotoxic medications Strict ins and outs -- S/p HAGMA Delta-delta: 1.4, pure anion gap metabolic acidosis Likely sec to elevated BUN with starvation ketosis Follow up serum osm, urine osm, urine lytes ABG 7. on room air 01/12/2023 Monitor --Rhabdomyolysis Continue with IV fluids -- Possible complex cyst left kidney Given the urine is clean I doubt pyelonephritis - Continue with Horne catheter ENDO - -- ICU hypoglycemia protocol HEME - -- Acute on chronic normocytic anemia S/p 1 unit PRBC 01/13/2023 Monitor H&H Transfuse if hemoglobin goes less than 7 --New onset thrombocytopenia Continue to monitor ID - -- Leukocytosis, one of the blood cultures positive for MRSE Urine is clean, chest x-ray clean CT abdomen pelvis does not show any abnormalities Procalcitonin 0.22 Got a dose of vancomycin on 01/13/2023 Repeat blood culture 01/13/2023 negative to date Continue with antibiotic --Prophylaxis VTE: IPC GI: Pantoprazole Lines: Peripheral Diet: cardiac renal diet Plan: In/out: +1.8 L, urine output 2670 DC half NS with bicarb. DC Plasma-Lyte and give only half NS at 80 mill an hour. Phosphorus being replaced New onset thrombocytopenia. Continue to trend. She is not on any blood thinners No swelling in the legs. No hypoxia Patient hemodynamically stable to be downgrade to medical floor Please note the above document was generated using voice recognition software. It may contain grammatical, syntax or spelling errors.Any formal questions or concerns about the content, text or information contained within the body of this dictation should be directly addressed to the provider for clarification. Admission and Anticipated Discharge Date Admission Date: January 11, 2023 Subjective Patient seen and examined at bedside. No acute distress, no adverse events overnight She has been off of vasopressors. MAP at the time of examination was in the 80s. Denies any chest pain, no shortness of breath Had her breakfast without any issues, no nausea or vomiting Still complaining of pain in the legs Review of Systems Review of Systems: All systems reviewed & are unremarkable except as noted in Subjective Physical Exam Physical Exam: Constitutional: No acute distress HEENT: EOMI, PERRLA Respiratory system: Good air entry bilaterally, no wheeze, no rhonchi, mild crackles bilateral lower lobes CVS: S1-S2 positive, no murmurs or gallops, positive left-sided AICD Abdomen: Soft, nontender, nondistended, positive bowel sounds x4 Extremities: +2 pulses bilaterally radialis/ dorsalis pedis, no cyanosis, no edema Neuro: Awake alert oriented to self and place Psych: Normal mood and affect G/U: Positive Horne Skin: no rashes, warm and dry Lymphatic: no cervical or axillary lymphadenopathy Results & Data Results & Data Vital Signs (Past 12 Hours) Vital Signs Temp Pulse Resp BP Pulse Ox O2 Del Method 01/14/23 07:45 36.6 C 79 20 107/70 95 Room Air 01/14/23 07:31 36.7 C 80 18 103/63 96 Room Air 01/14/23 07:15 36.6 C 84 21 123/76 96 Room Air 01/14/23 07:00 36.7 C 75 23 96 01/14/23 07:00 120/71 01/14/23 06:45 36.7 C 77 20 97 01/14/23 06:30 36.7 C 76 23 95 01/14/23 06:30 116/68 01/14/23 06:15 36.7 C 76 26 H 96 01/14/23 06:00 36.6 C 79 21 94 01/14/23 05:45 36.6 C 79 19 96 01/14/23 05:30 36.5 C 77 20 96 01/14/23 05:30 99/64 L 01/14/23 05:15 36.5 C 82 23 86 L 01/14/23 05:00 36.5 C 67 20 95 01/14/23 05:00 124/72 01/14/23 04:45 36.5 C 73 23 94 01/14/23 04:30 36.5 C 75 27 H 93 01/14/23 04:30 117/72 01/14/23 04:15 36.5 C 76 25 H 94 01/14/23 04:00 36.5 C 77 26 H 93 01/14/23 04:00 117/70 01/14/23 03:45 36.6 C 83 19 95 01/14/23 03:30 36.6 C 79 24 96 01/14/23 03:30 126/72 01/14/23 03:15 36.6 C 80 26 H 95 01/14/23 03:15 133/69 01/14/23 03:00 36.6 C 79 30 H 94 01/14/23 03:00 105/69 01/14/23 02:45 36.6 C 79 25 H 94 01/14/23 02:45 113/71 01/14/23 00:00 78 01/14/23 02:30 36.6 C 79 29 H 97 01/14/23 02:30 122/73 08/26/23 02:25 36.6 C 76 25 H 97 01/14/23 02:25 126/66 01/14/23 02:16 58/28 L 01/14/23 02:16 36.6 C 75 35 H 96 01/14/23 02:15 36.6 C 77 26 H 95 01/14/23 02:00 36.7 C 79 29 H 96 01/14/23 02:00 106/67 01/14/23 01:46 82/69 L 01/14/23 01:46 36.7 C 66 17 95 01/14/23 01:45 36.7 C 72 21 86 L 01/14/23 01:30 36.6 C 77 24 94 01/14/23 01:30 103/59 L 01/14/23 01:15 36.6 C 79 16 93 01/14/23 01:15 99/62 L 01/14/23 01:00 36.6 C 78 32 H 95 01/14/23 01:00 106/69 01/14/23 00:46 36.6 C 82 27 H 95 01/14/23 00:46 112/64 01/14/23 00:45 36.6 C 79 30 H 94 01/14/23 00:30 36.6 C 75 22 91 01/14/23 00:30 77/55 L 01/14/23 00:15 36.6 C 77 23 96 01/14/23 00:15 96/53 L 01/14/23 00:00 36.6 C 80 19 93 01/14/23 00:00 80/45 L 01/13/23 23:45 36.6 C 82 31 H 94 01/13/23 23:30 36.7 C 72 26 H 93 01/13/23 23:30 87/55 L 01/13/23 23:15 36.7 C 76 19 96 01/13/23 23:03 101/74 01/13/23 23:03 36.7 C 81 26 H 87 L 01/13/23 23:00 36.7 C 79 19 94 01/13/23 22:45 36.7 C 82 23 94 01/13/23 22:30 36.6 C 79 24 93 01/13/23 22:16 36.6 C 83 19 96 01/13/23 22:16 119/76 01/13/23 22:15 36.6 C 85 17 90 01/13/23 22:00 36.6 C 84 12 90 01/13/23 22:00 97/56 L 01/13/23 21:45 36.6 C 72 24 94 01/13/23 21:45 92/55 L 01/13/23 20:48 36.5 C 82 18 101/59 L 94 01/13/23 23:07 36.7 C 81 20 101/74 96 01/13/23 21:30 36.6 C 78 23 93 01/13/23 21:30 96/59 L 01/13/23 21:15 36.6 C 79 23 01/13/23 21:15 87/58 L 01/13/23 21:00 36.6 C 79 24 93 01/13/23 21:00 98/52 L 01/13/23 20:45 36.5 C 82 19 94 01/13/23 20:45 101/59 L 01/13/23 20:30 36.5 C 80 19 93 01/13/23 20:30 97/58 L 01/13/23 20:15 36.6 C 70 19 01/13/23 20:15 80/52 L 01/13/23 20:27 36.5 C 77 18 80/52 L 95 Laboratory Results 01/14/23 05:10 01/14/23 05:10 Coding Level of Care Code 58327 SUB INP/OBS CARE 3/50MIN Diagnoses ARF (acute renal failure) N17.9 Acute renal failure type: unspecified Acute ischemic right MCA stroke I63.511 Rhabdomyolysis M62.82 Rhabdomyolysis type: non-traumatic CKD (chronic kidney disease), stage III N18.30 COPD, group C, by GOLD 2017 classification J44.9 GERD (gastroesophageal reflux disease) K21.9 Metabolic encephalopathy G93.41 Shock circulatory R57.9 Transaminitis R74.01 (1) ARF (acute renal failure) Acute renal failure type: unspecified Qualified Code(s): N17.9 - Acute kidney failure, unspecified (3) Rhabdomyolysis Rhabdomyolysis type: non-traumatic Qualified Code(s): M62.82 - Rhabdomyolysis
[2023-01-14] MEDS: SODIUM CHLORIDE 0.45 % 1,000 ML IV SCH ×2 (08:16→21:29)
[2023-01-14] MEDS: UMECLIDINIUM/VILANTEROL 62.5/25MCG 7 PUFFS/INHALER INH SCH (08:33)
[2023-01-14] MEDS: VENLAFAXINE HCL XR 37.5 MG CAPXR PO SCH (08:33)
[2023-01-14] MEDS: PANTOprazole 40 MG TAB PO SCH ×2 (08:33→21:33)
[2023-01-14] MEDS: levETIRAcetam 500 MG in 0.9 % SODIUM CHLORIDE 100 ML IV SCH ×2 (10:31→22:00)
--- NOTE | 2023-01-14 13:08 | Nephrology Progress Note ---
Date of Service January 14, 2023 Assessment & Plan (1) ARF (acute renal failure): Plan: improving stage 3 MARIELLA w/ baseline creatinine most recently 1.1 during inpatient stay here in past month. behaving like prerenal process; cannot r/o ischemic ATN component. p/w creatinine 4.3, down to 2.6 this am. in the setting of AG metabolic acidosis, profound hyperphosphatemia. hyperchloremia has emerged since arrival. History is unclear; CK not c/w rhabdomyolysis. notably no ketonuria. ? rp BUN elevation may reflect heme in GI tract >concern for sepsis given hypothermia, leukocytosis, MARIELLA, hypotension, elevated lactate; however no clear/documented source - Continue on, 1/2 NS >> hypernatremia and renal functions improved. > Keep K > 4 Care coordinated w/ Godwin Wyatt Admission and Anticipated Discharge Date Admission Date: January 11, 2023 Subjective Patient seen and examined at bedside. No acute distress, no adverse events ove rnight off vasopressors. s Review of Systems Review of Systems: All systems reviewed & are unremarkable except as noted in HPI & below Results & Data Vital Signs (Past 12 Hours) Vital Signs Temp Pulse Resp BP Pulse Ox O2 Del Method 01/14/23 12:00 36.9 C 71 22 120/74 96 Room Air 01/14/23 11:00 36.8 C 71 18 113/68 96 Room Air 01/14/23 10:00 36.7 C 74 20 106/62 95 Room Air 01/14/23 09:00 36.6 C 71 22 105/64 95 Room Air 01/14/23 08:45 36.6 C 73 15 116/70 97 Room Air 01/14/23 08:30 36.6 C 75 18 100/67 95 Room Air 01/14/23 08:15 36.6 C 73 20 114/68 95 Room Air 01/14/23 08:00 36.6 C 82 20 114/70 95 Room Air 01/14/23 07:45 36.6 C 79 20 107/70 95 Room Air 01/14/23 07:31 36.7 C 80 18 103/63 96 Room Air 01/14/23 07:15 36.6 C 84 21 123/76 96 Room Air 01/14/23 07:00 36.7 C 75 23 96 01/14/23 07:00 120/71 01/14/23 06:45 36.7 C 77 20 97 01/14/23 06:30 36.7 C 76 23 95 01/14/23 06:30 116/68 01/14/23 06:15 36.7 C 76 26 H 96 01/14/23 06:00 36.6 C 79 21 94 01/14/23 05:45 36.6 C 79 19 96 01/14/23 05:30 36.5 C 77 20 96 01/14/23 05:30 99/64 L 01/14/23 05:15 36.5 C 82 23 86 L 01/14/23 05:00 36.5 C 67 20 95 01/14/23 05:00 124/72 01/14/23 04:45 36.5 C 73 23 94 01/14/23 04:30 36.5 C 75 27 H 93 01/14/23 04:30 117/72 01/14/23 04:15 36.5 C 76 25 H 94 01/14/23 04:00 36.5 C 77 26 H 93 01/14/23 04:00 117/70 01/14/23 03:45 36.6 C 83 19 95 01/14/23 03:30 36.6 C 79 24 96 01/14/23 03:30 126/72 01/14/23 03:15 36.6 C 80 26 H 95 01/14/23 03:15 133/69 01/14/23 03:00 36.6 C 79 30 H 94 01/14/23 03:00 105/69 01/14/23 02:45 36.6 C 79 25 H 94 01/14/23 02:45 113/71 01/14/23 02:30 36.6 C 79 29 H 97 01/14/23 02:30 122/73 01/14/23 02:25 36.6 C 76 25 H 97 01/14/23 02:25 126/66 01/14/23 02:16 58/28 L 01/14/23 02:16 36.6 C 75 35 H 96 01/14/23 02:15 36.6 C 77 26 H 95 01/14/23 02:00 36.7 C 79 29 H 96 01/14/23 02:00 106/67 01/14/23 01:46 82/69 L 01/14/23 01:46 36.7 C 66 17 95 01/14/23 01:45 36.7 C 72 21 86 L 01/14/23 01:30 36.6 C 77 24 94 01/14/23 01:30 103/59 L 01/14/23 01:15 36.6 C 79 16 93 01/14/23 01:15 99/62 L Laboratory Results 01/14/23 05:10 01/14/23 05:10 (1) ARF (acute renal failure) Acute renal failure type: unspecified Qualified Code(s): N17.9 - Acute kidney failure, unspecified
--- NOTE | 2023-01-14 15:28 | Hospitalist Progress Note ---
Date of Service January 14, 2023 Assessment & Plan (1) ARF (acute renal failure): Plan: 76-year-old female with PMH of chronic systolic/diastolic heart failure s/p ICD [recent EF of 60 to 65%, TTE 2022], CAD s/p stent, chronic LBBB, mild aortic regurgitation, AAA, HTN, HLD, COPD, DM 2 diet controlled, HCV status post treatment, chronic anemia [baseline hemoglobin of 10], history of DVT on Eliquis [currently on hold as per PCP note], seizure disorder on Keppra treatment, right nasopharyngeal mass, ongoing tobacco abuse presented to the ED 01/11 after being found lying in the garage by her granddaughter who also witnessed seizure activity lasting for a minute. 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 Of note, she was recently seen at PCP office/concern for hematochezia/FOBT was positive/patient was instructed to stop Eliquis temporarily until repeat lab work/patient unaware of instruction to hold Eliquis. She is being managed for the following: Likely metabolic versus toxic versus both encephalopathy: Hypoglycemia/hypothermia/elevated BUN at presentation ? Breakthrough seizure: Pt noted to have seizure per pt's grand daughter per HnP note. ?noncompliance Fall: Patient was found lying in the garage floor by granddaughter. CPK elevated at 552, does not qualify for rhabdomyolysis diagnosis. History of seizure disorder:Recent confinement in September 2022 with altered mental status when patient was noted to have myoclonic jerk and neurology evaluated, was discharged on Keppra 500 mg bid. Imagings at presentation: C-spine CT/chest and abdomen x-ray/head CT/bilateral knee x-ray/bilateral ankle x-ray: With no acute findings US venous Doppler: No DVT. Chronic superficial thrombus within the greater saphenous vein. CTAP with 1.5 cm hypodensity projecting from the lower pole of left kidney,?? Complicated cyst. Ultrasound recommended. Renal ultrasound: Suggestive of complex cyst. No hydronephrosis. Patient more awake but not very much communicative, denied any pain to me. Eating ok, moving bowels c/w home keppra Neurology evaled, appreciate. Urine tox screen neg Delirium precaution. Hypothermia and hypoglycemia: likely 2/2 starvation and being out in garage. Warming blanket for hypothermia. Hypoglycemia protocol. resolved. Shock: At admissionWBC of 16.38 K (procal neg), temperature 31.2 C, pulse rate elevated, blood pressure soft with continued to deteriorate despite 3.5 L IV fluid hydration in the ED --> transferred to ICU for pressor support. No clear source of sepsis. Not requiring pressors now, out of ICU today. Holding home diuretics and blood pressure medications. Admitting blood and urine culture---> 01/11 bl cx likely contaminant, follow repeat Cx. Will complete antibiotic course, source not clear. Transaminitis/Lipase elevation/increase blood lactic acid level: likely from shock, trend. Getting IV fluids. Improving. Acute kidney injury over CKD stage III: Admitting BUN of 181 and creatinine of 4.27. Hold nephrotoxins. Nephrology on board. IV fluid. Labs in AM. Improving. AGMA: likely 2/2 starvation ketosis. ABG reviewed, Nephro on board, appreciate recs. GI Bleed: Recent PCP visit for hematochezia, FOBT positive, was instructed to hold Eliquis transiently and get the labs repeated as outpatient. Currently Eliquis and Plavix on hold. Continue with IV fluids, PPI twice daily, GI evaled --appreciate. Trend hemoglobin. If Hb stable consistently will resume anticaog in 1-2 days. Afib w/ RVR: EKG w/ Afib rvr at presentation, likely 2/2 acute illness (above). Cardio on board, rate better now. Likely demand ischemia: Likely secondary to A-fib RVR and acute illness. Troponin elevated at presentation, downtrending. EKG with A-fib RVR. Echo with EF of 65 to 70%, left ventricle normal in size and systolic function. Possible functional disability: given recurrent admissions/patient current living situation detrimental to receiving important communications in PCP's office (e.g. message to hold Eliquis). CM consult. PT/OT. Recent acute ischemic right MCA stroke:Continue with statin low-dose, follow-up with neurology in 2-3 weeks on DC. Continue with Eliquis and Plavix as able (see above). History of DVT:history of RLE DVT, continue with Eliquis as able [see above]. Recent history of incidental finding of right nasopharyngeal mass:Follow-up ENT as an outpatient. Appears outpatient ENT evaluation is scheduled for January 2023 per d/w patient in the past. Other chronic medical conditions:c/w or resume home meds as and when able. Systolic/diastolic heart failure s/p ICD (recent EF of 60 to 65%, TTE 2022). CAD status post stent chronic LBBB mild aortic regurgitation AAA, stable at 3 cm measurement as of 2022 outpatient aortic duplex hypertension hyperlipidemia, on statin Rx COPD: no wheezing, c/w home inhalers as able. Was discharged on 2L O2 with rest and ambulation in her last discharge. DM2 diet-controlled, Documented inpatient hemoglobin A1c of 7.1 from 2020. A1C 6.3 in November HCV status post tx chronic anemia, hemoglobin at baseline chronic pain ongoing tobacco abuse: Continues to smoke despite multiple counseling . 3 to 4 cigarettes daily.Nicotine patch as needed DVT Px: scd Full Code. DVT prophylaxis. SCDs Re: Possible GIB Full code Admission and Anticipated Discharge Date Admission Date: January 11, 2023 Subjective Patient seen and examined at bedside. Multiple active issues. Patient was sitting up in bed, appears confused, not much communicative, denies pain, did not answer most of the question, was able to cooperate through exam. Per RN, patient with good urine output, no new acute event overnight, eating 25% of her meals, had soft brown bm in AM, no cough, has been off of pressors. Physical Exam Physical Exam: GENERAL: alert, confused, no respiratory distress, On RA. SKIN: Pallor, warm HEENT: Pale palpebral conjunctivae, no ptosis, dry buccal mucosa NECK : Supple, no tenderness CHEST : Decreased breath sounds, no tenderness HEART : RRR, no obvious murmurs ABDOMEN: Some distention, no epigastric tenderness EXTREMITIES : no LE swelling, no LE tenderness, no other conspicuous deformities noted NEUROLOGIC : lethargic, no facial asymmetry, slightly hard of hearing, gait and stance not assessed Results & Data Results & Data Vital Signs (Past 12 Hours) Vital Signs Temp Pulse Resp BP Pulse Ox O2 Del Method 01/14/23 13:25 36.9 C 70 22 104/58 L 97 Room Air 01/14/23 12:00 36.9 C 71 22 120/74 96 Room Air 01/14/23 11:00 36.8 C 71 18 113/68 96 Room Air 01/14/23 10:00 36.7 C 74 20 106/62 95 Room Air 01/14/23 09:00 36.6 C 71 22 105/64 95 Room Air 01/14/23 08:45 36.6 C 73 15 116/70 97 Room Air 01/14/23 08:30 36.6 C 75 18 100/67 95 Room Air 01/14/23 08:15 36.6 C 73 20 114/68 95 Room Air 01/14/23 08:00 36.6 C 82 20 114/70 95 Room Air 01/14/23 07:45 36.6 C 79 20 107/70 95 Room Air 01/14/23 07:31 36.7 C 80 18 103/63 96 Room Air 01/14/23 07:15 36.6 C 84 21 123/76 96 Room Air 01/14/23 07:00 36.7 C 75 23 96 01/14/23 07:00 120/71 01/14/23 06:45 36.7 C 77 20 97 01/14/23 06:30 36.7 C 76 23 95 01/14/23 06:30 116/68 01/14/23 06:15 36.7 C 76 26 H 96 01/14/23 06:00 36.6 C 79 21 94 01/14/23 05:45 36.6 C 79 19 96 01/14/23 05:30 36.5 C 77 20 96 01/14/23 05:30 99/64 L 01/14/23 05:15 36.5 C 82 23 86 L 01/14/23 05:00 36.5 C 67 20 95 01/14/23 05:00 124/72 01/14/23 04:45 36.5 C 73 23 94 01/14/23 04:30 36.5 C 75 27 H 93 01/14/23 04:30 117/72 01/14/23 04:15 36.5 C 76 25 H 94 01/14/23 04:00 36.5 C 77 26 H 93 01/14/23 04:00 117/70 01/14/23 03:45 36.6 C 83 19 95 01/14/23 03:30 36.6 C 79 24 96 01/14/23 03:30 126/72 (1) ARF (acute renal failure) Acute renal failure type: unspecified Qualified Code(s): N17.9 - Acute kidney failure, unspecified
[2023-01-14] MEDS: METOPROLOL SUCC 25MG EXT REL TAB PO SCH (18:06)
[2023-01-15] MEDS: PIPERACILLIN/TAZOBACTAM 4.5 GM in DEXTROSE 5% 100 ML IV SCH ×3 (06:25→22:52)
[2023-01-15 07:17] LABS: Mean Corpuscular Hemoglobin 29.7 pg (25.0-34.0); Mean Corpuscular Hgb Conc 33.3 g/dL (32.0-36.0); Mean Corpuscular Volume 89.2 fL (80.0-100.0); Mean Platelet Volume 12.1 fL (9.4-12.4); Nucleated RBC # (auto) 0.02 K/uL (0.00-0.12); Nucleated RBC % (auto) 0.2 %; Platelet Count 77 K/uL (130-400); RDW Coefficient of Variation 16.7 % (11.5-14.5); RDW Standard Deviation 53.8 fL (36.4-46.3); Red Blood Count 2.69 M/uL (4.20-5.40); White Blood Count 9.07 K/ul (4.8-10.8)
[2023-01-15] MEDS: ATORVASTATIN 20 MG TAB PO SCH (07:31)
[2023-01-15] MEDS: PANTOprazole 40 MG TAB PO SCH ×2 (07:31→21:10)
[2023-01-15] MEDS: VENLAFAXINE HCL XR 37.5 MG CAPXR PO SCH (07:31)
[2023-01-15] MEDS: METOPROLOL SUCC 25MG EXT REL TAB PO SCH (07:31)
[2023-01-15] MEDS: UMECLIDINIUM/VILANTEROL 62.5/25MCG 7 PUFFS/INHALER INH SCH (07:32)
[2023-01-15 07:56] LABS: Calcium 7.6 mg/dl (8.6-10.3); Creatinine Clr Calc Pharmacy 35.8 ml/min; Est GFR (African American) 56.3 ml/min; Est GFR (Non-African American) 48.5 ml/min; Magnesium 1.5 mg/dl (1.7-2.4); Potassium 3.9 mmol/L (3.5-5.1)
[2023-01-15] MEDS ORDERED: POTASSIUM PHOS 3 MMOL/1 ML INFUSION IV STA (08:53)
[2023-01-15] MEDS ORDERED: POTASSIUM PHOSPHATE 15 MMOL in SODIUM CHLORIDE 0.9% 250 ML IV ONE (09:30)
[2023-01-15] MEDS: MAGNESIUM SULFATE / D5W 1 GM/100 ML BAG IV SCH ×2 (10:18→13:00)
[2023-01-15] MEDS: SODIUM CHLORIDE 0.45 % 1,000 ML IV SCH (10:21)
[2023-01-15] MEDS: INSULIN ASPART PER UNIT CHARGE SC SCH ×4 (10:26→21:10)
--- NOTE | 2023-01-15 11:42 | Ultrasound Report ---
BILATERAL LOWER EXTREMITY VENOUS DOPPLER HISTORY: r/o dvt, platelet drop. Left leg pain. COMPARISON STUDY: None. FINDINGS: There is normal compressibility, flow, and augmentation within the bilateral lower extremit y deep venous systems. IMPRESSION: No DVT within the right or left lower extremity. ACT 112: Negative or not required by law. Electronically signed by: Severino Blunt M.D. 01/15/2023 11:41 AM
[2023-01-15] MEDS: levETIRAcetam 500 MG in 0.9 % SODIUM CHLORIDE 100 ML IV SCH ×2 (12:03→22:22)
--- NOTE | 2023-01-15 15:24 | Hospitalist Progress Note ---
Date of Service January 15, 2023 Assessment & Plan (1) ARF (acute renal failure): Plan: 76-year-old female with PMH of chronic systolic/diastolic heart failure s/p ICD [recent EF of 60 to 65%, TTE 2022], CAD s/p stent, chronic LBBB, mild aortic regurgitation, AAA, HTN, HLD, COPD, DM 2 diet controlled, HCV status post treatment, chronic anemia [baseline hemoglobin of 10], history of DVT on Eliquis [currently on hold as per PCP note], seizure disorder on Keppra treatment, right nasopharyngeal mass, ongoing tobacco abuse presented to the ED 01/11 after being found lying in the garage by her granddaughter who also witnessed seizure activity lasting for a minute. 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 Of note, she was recently seen at PCP office/concern for hematochezia/FOBT was positive/patient was instructed to stop Eliquis temporarily until repeat lab work/patient unaware of instruction to hold Eliquis. She is being managed for the following: Likely metabolic versus toxic versus both encephalopathy: Hypoglycemia/hypothermia/elevated BUN at presentation ? Breakthrough seizure: Pt noted to have seizure per pt's grand daughter per HnP note. ?noncompliance Fall: Patient was found lying in the garage floor by granddaughter. CPK elevated at 552, does not qualify for rhabdomyolysis diagnosis. History of seizure disorder:Recent confinement in September 2022 with altered mental status when patient was noted to have myoclonic jerk and neurology evaluated, was discharged on Keppra 500 mg bid. Imagings at presentation: C-spine CT/chest and abdomen x-ray/head CT/bilateral knee x-ray/bilateral ankle x-ray: With no acute findings US venous Doppler: No DVT. Chronic superficial thrombus within the greater saphenous vein. CTAP with 1.5 cm hypodensity projecting from the lower pole of left kidney,?? Complicated cyst. Ultrasound recommended. Renal ultrasound: Suggestive of complex cyst. No hydronephrosis. Mentation gradually improving, follow. Poor appetite today, loose stools - send for c diff. c/w home keppra Neurology evaled, appreciate. Urine tox screen neg Delirium precaution. Hypothermia and hypoglycemia: likely 2/2 starvation and being out in garage. resolved. Shock: At admissionWBC of 16.38 K (procal neg), temperature 31.2 C, pulse rate elevated, blood pressure soft with continued to deteriorate despite 3.5 L IV fluid hydration in the ED --> transferred to ICU for pressor support. No clear source of sepsis. s/p pressor support. Holding home diuretics and blood pressure medications. Admitting blood and urine culture---> 01/11 bl cx likely contaminant, follow repeat Cx. Will complete antibiotic course, source not clear. Transaminitis/Lipase elevation/increase blood lactic acid level: likely from shock, trend. s/p IV fluids. Improving. Acute kidney injury over CKD stage III: Admitting BUN of 181 and creatinine of 4.27. Hold nephrotoxins. Nephrology on board. s/p IV fluid. Labs in AM. resolved. d/w nephrology, plan to dc ivf. AGMA: likely 2/2 starvation ketosis. resolved GI Bleed: Recent PCP visit for hematochezia, FOBT positive, was instructed to hold Eliquis transiently and get the labs repeated as outpatient. Currently Eliquis and Plavix on hold. Continue with PPI twice daily, GI evaled --appreciate. Trend hemoglobin. If Hb stable consistently will resume anticaog in 1-2 days. Afib w/ RVR: EKG w/ Afib rvr at presentation, likely 2/2 acute illness (above). Cardio on board, rate better now. Likely demand ischemia: Likely secondary to A-fib RVR and acute illness. Troponin elevated at presentation, downtrending. EKG with A-fib RVR. Echo with EF of 65 to 70%, left ventricle normal in size and systolic function. Possible functional disability: given recurrent admissions/patient current living situation detrimental to receiving important communications in PCP's office (e.g. message to hold Eliquis). CM consult. PT/OT. Recent acute ischemic right MCA stroke:Continue with statin low-dose, follow-up with neurology in 2-3 weeks on DC. Continue with Eliquis and Plavix as able (see above). History of DVT:history of RLE DVT, continue with Eliquis as able [see above]. Recent history of incidental finding of right nasopharyngeal mass:Follow-up ENT as an outpatient. Appears outpatient ENT evaluation is scheduled for January 2023 per d/w patient in the past. Other chronic medical conditions:c/w or resume home meds as and when able. Systolic/diastolic heart failure s/p ICD (recent EF of 60 to 65%, TTE 2022). CAD status post stent chronic LBBB mild aortic regurgitation AAA, stable at 3 cm measurement as of 2022 outpatient aortic duplex hypertension hyperlipidemia, on statin Rx COPD: no wheezing, c/w home inhalers as able. Was discharged on 2L O2 with rest and ambulation in her last discharge. DM2 diet-controlled, Documented inpatient hemoglobin A1c of 7.1 from 2020. A1C 6.3 in November HCV status post tx chronic anemia, hemoglobin at baseline chronic pain ongoing tobacco abuse: Continues to smoke despite multiple counseling . 3 to 4 cigarettes daily.Nicotine patch as needed DVT Px: scd Full Code. DVT prophylaxis. SCDs Re: Possible GIB Full code Admission and Anticipated Discharge Date Admission Date: January 11, 2023 Subjective Patient seen and examined at bedside. Multiple active issues. Patient was lying semiupright in bed, appears lethargic, improving awareness, denies pain, reports not feeling well/some epigastric discomfort, was able to cooperate through exam. Per RN, patient w/ poor appetite, has loose stools today (will send for c diff) but more awake. d/w nephro, replaced electrolytes. Physical Exam Physical Exam: GENERAL: alert, confused, no respiratory distress, On RA. SKIN: Pallor, warm HEENT: Pale palpebral conjunctivae, no ptosis, dry buccal mucosa NECK : Supple, no tenderness CHEST : Decreased breath sounds, no tenderness HEART : RRR, no obvious murmurs ABDOMEN: Some distention, no epigastric tenderness EXTREMITIES : no LE swelling, no LE tenderness, no other conspicuous deformities noted NEUROLOGIC : lethargic, no facial asymmetry, slightly hard of hearing, gait and stance not assessed Results & Data Results & Data Vital Signs (Past 12 Hours) Vital Signs Temp Pulse Pulse Resp BP Pulse Ox O2 Del Method 01/15/23 15:00 36.7 C 69 18 124/75 96 Room Air 01/15/23 07:15 63 01/15/23 11:00 36.6 C 67 18 129/81 95 Room Air 01/15/23 07:38 36.7 C 78 16 155/85 H 96 Room Air (1) ARF (acute renal failure) Acute renal failure type: unspecified Qualified Code(s): N17.9 - Acute kidney failure, unspecified
[2023-01-15] MEDS ORDERED: SIMETHICONE 80 MG CHEW PO PRN (15:26)
[2023-01-16] MEDS: PIPERACILLIN/TAZOBACTAM 4.5 GM in DEXTROSE 5% 100 ML IV SCH ×3 (06:04→22:59)
[2023-01-16 06:30] LABS: Hematocrit (blood only) 26.4 % (37.0-47.0); Hemoglobin 8.7 g/dl (12.0-16.0); Mean Corpuscular Hemoglobin 29.6 pg (25.0-34.0); Mean Corpuscular Volume 89.8 fL (80.0-100.0); Mean Platelet Volume 11.5 fL (9.4-12.4); Platelet Count 73 K/uL (130-400); RDW Coefficient of Variation 16.7 % (11.5-14.5); RDW Standard Deviation 54.4 fL (36.4-46.3); Red Blood Count 2.94 M/uL (4.20-5.40); White Blood Count 7.83 K/ul (4.8-10.8)
[2023-01-16 06:59] LABS: Calcium 7.9 mg/dl (8.6-10.3); Creatinine Clr Calc Pharmacy 30.4 ml/min; Est GFR (Non-African American) 39.7 ml/min; Magnesium 1.5 mg/dl (1.7-2.4); Phosphorus 2.3 mg/dl (2.5-4.9); Potassium 3.4 mmol/L (3.5-5.1)
[2023-01-16] MEDS: INSULIN ASPART PER UNIT CHARGE SC SCH ×4 (07:51→21:31)
[2023-01-16] MEDS: VENLAFAXINE HCL XR 37.5 MG CAPXR PO SCH (08:34)
[2023-01-16] MEDS: PANTOprazole 40 MG TAB PO SCH ×2 (08:34→21:32)
[2023-01-16] MEDS: UMECLIDINIUM/VILANTEROL 62.5/25MCG 7 PUFFS/INHALER INH SCH (08:35)
[2023-01-16] MEDS: ATORVASTATIN 20 MG TAB PO SCH (08:35)
[2023-01-16] MEDS: METOPROLOL SUCC 25MG EXT REL TAB PO SCH (08:35)
[2023-01-16] MEDS ORDERED: POTASSIUM CHLORIDE CRTAB 20 MEQ TABCR PO STA (08:45)
[2023-01-16] MEDS: POT PHOSPHATE MONOBASIC W/ SOD TAB PO SCH ×4 (09:47→21:49)
[2023-01-16] MEDS: MAGNESIUM SULFATE / D5W 1 GM/100 ML BAG IV SCH ×2 (10:14→12:06)
[2023-01-16] MEDS: levETIRAcetam 500 MG in 0.9 % SODIUM CHLORIDE 100 ML IV SCH ×2 (12:53→23:34)
--- NOTE | 2023-01-16 15:16 | Hospitalist Progress Note ---
Date of Service January 16, 2023 Assessment & Plan (1) ARF (acute renal failure): Plan: 76-year-old female with PMH of chronic systolic/diastolic heart failure s/p ICD [recent EF of 60 to 65%, TTE 2022], CAD s/p stent, chronic LBBB, mild aortic regurgitation, AAA, HTN, HLD, COPD, DM 2 diet controlled, HCV status post treatment, chronic anemia [baseline hemoglobin of 10], history of DVT on Eliquis [currently on hold as per PCP note], seizure disorder on Keppra treatment, right nasopharyngeal mass, ongoing tobacco abuse presented to the ED 01/11 after being found lying in the garage by her granddaughter who also witnessed seizure activity lasting for a minute. 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 Of note, she was recently seen at PCP office/concern for hematochezia/FOBT was positive/patient was instructed to stop Eliquis temporarily until repeat lab work/patient unaware of instruction to hold Eliquis. She is being managed for the following: Likely metabolic versus toxic versus both encephalopathy: Hypoglycemia/hypothermia/elevated BUN at presentation. Resolved. ? Breakthrough seizure: Pt noted to have seizure per pt's grand daughter per HnP note. ?noncompliance . Pt reports she was down in garage for 2 days/reports compliance w/ keppra prior to fall. Fall: Patient was found lying in the garage floor by granddaughter. CPK elevated at 552, does not qualify for rhabdomyolysis diagnosis. History of seizure disorder:Recent confinement in September 2022 with altered mental status when patient was noted to have myoclonic jerk and neurology evaluated, was discharged on Keppra 500 mg bid. Imagings at presentation: C-spine CT/chest and abdomen x-ray/head CT/bilateral knee x-ray/bilateral ankle x-ray: With no acute findings US venous Doppler: No DVT. Chronic superficial thrombus within the greater saphenous vein. CTAP with 1.5 cm hypodensity projecting from the lower pole of left kidney,?? Complicated cyst. Ultrasound recommended. Renal ultrasound: Suggestive of complex cyst. No hydronephrosis. Alert and oriented, she reports she was down in garage for 2 days/reports compliance to keppra prior to fall/noted to have seizure per grand dtr/will likely need zio patch monitoring on discharge. Pt remembers falling ab ruptly/doesn't remember any events prior to fall. Improving appetite and bowel movements, still w/ lack of hunger. c/w home julian Neurology evaled, appreciate. Urine tox screen neg Delirium precaution. Hypothermia and hypoglycemia: likely 2/2 starvation and being out in garage. resolved. Shock: At admissionWBC of 16.38 K (procal neg), temperature 31.2 C, pulse rate elevated, blood pressure soft with continued to deteriorate despite 3.5 L IV fluid hydration in the ED --> transferred to ICU for pressor support. No clear source of sepsis. s/p pressor support. Resolved. Admitting blood and urine culture---> 01/11 bl cx likely contaminant, follow repeat Cx. Will complete antibiotic course, source not clear. Transaminitis/Lipase elevation/increase blood lactic acid level: likely from shock, trend. s/p IV fluids. Improving. Acute kidney injury over CKD stage III: Admitting BUN of 181 and creatinine of 4.27. Hold nephrotoxins. Nephrology on board. s/p IV fluid. Labs in AM. resolved. AGMA: likely 2/2 starvation ketosis. resolved GI Bleed: Recent PCP visit for hematochezia, FOBT positive, was instructed to hold Eliquis transiently and get the labs repeated as outpatient. Currently Eliquis and Plavix on hold. Continue with PPI twice daily, GI evaled --appreciate. Trend hemoglobin. If Hb stable consistently will resume anticaog likely jonh Afib w/ RVR: EKG w/ Afib rvr at presentation, likely 2/2 acute illness (above). Cardio evaled, rate better now. Likely demand ischemia: Likely secondary to A-fib RVR and acute illness. Troponin elevated at presentation, downtrending. EKG with A-fib RVR. Echo with EF of 65 to 70%, left ventricle normal in size and systolic function. Possible functional disability: given recurrent admissions/patient current living situation detrimental to receiving important communications in PCP's office (e.g. message to hold Eliquis). CM consult. PT/OT. Recent acute ischemic right MCA stroke:Continue with statin low-dose, follow-up with neurology in 2-3 weeks on DC. Continue with Eliquis and Plavix as able (see above). History of DVT:history of RLE DVT, continue with Eliquis as able [see above]. Recent history of incidental finding of right nasopharyngeal mass:Follow-up ENT as an outpatient. Appears outpatient ENT evaluation is scheduled for January 2023 per d/w patient in the past. Other chronic medical conditions:c/w or resume home meds as and when able. Systolic/diastolic heart failure s/p ICD (recent EF of 60 to 65%, TTE 2022). CAD status post stent chronic LBBB mild aortic regurgitation AAA, stable at 3 cm measurement as of 2022 outpatient aortic duplex hypertension hyperlipidemia, on statin Rx COPD: no wheezing, c/w home inhalers as able. Was discharged on 2L O2 with rest and ambulation in her last discharge. DM2 diet-controlled, Documented inpatient hemoglobin A1c of 7.1 from 2020. A1C 6.3 in November HCV status post tx chronic anemia, hemoglobin at baseline chronic pain ongoing tobacco abuse: Continues to smoke despite multiple counseling . 3 to 4 cigarettes daily.Nicotine patch as needed DVT Px: scd Full Code. DVT prophylaxis. SCDs Re: Possible GIB Full code Admission and Anticipated Discharge Date Admission Date: January 11, 2023 Subjective Patient seen and examined at bedside. Multiple active issues. Patient was lying semiupright in bed, alert and oriented today, denies pain, reports feeling better/denies any abdominal discomfort today, reports eating better, no loose stool today. Physical Exam Physical Exam: GENERAL: alert, oriented, no respiratory distress, On RA. SKIN: Pallor, warm HEENT: Pale palpebral conjunctivae, no ptosis, dry buccal mucosa NECK : Supple, no tenderness CHEST : Decreased breath sounds, no tenderness HEART : RRR, no obvious murmurs ABDOMEN: Some distention, no epigastric tenderness EXTREMITIES : no LE swelling, no LE tenderness, no other conspicuous deformities noted NEUROLOGIC : lethargic, no facial asymmetry, slightly hard of hearing, gait and stance not assessed Results & Data Results & Data Vital Signs (Past 12 Hours) Vital Signs Temp Pulse Pulse Resp BP Pulse Ox O2 Del Method 01/16/23 14:57 63 01/16/23 11:38 36.6 C 70 20 134/72 95 Room Air 01/16/23 08:00 Room Air 01/16/23 07:41 68 08/28/23 07:40 37.1 C 75 20 146/77 H 95 Room Air (1) ARF (acute renal failure) Acute renal failure type: unspecified Qualified Code(s): N17.9 - Acute kidney failure, unspecified
[2023-01-16] MEDS: ACETAMINOPHEN 325 MG TAB PO PRN (18:27)
[2023-01-17] MEDS: ACETAMINOPHEN 325 MG TAB PO PRN (03:17)
[2023-01-17] MEDS: PIPERACILLIN/TAZOBACTAM 4.5 GM in DEXTROSE 5% 100 ML IV SCH ×3 (05:33→21:21)
[2023-01-17 07:48] LABS: Hematocrit (blood only) 28.3 % (37.0-47.0); Hemoglobin 9.3 g/dl (12.0-16.0)
[2023-01-17 08:03] LABS: Calcium 7.8 mg/dl (8.6-10.3); Creatinine Clr Calc Pharmacy 32.3 ml/min; Est GFR (African American) 47.8 ml/min; Est GFR (Non-African American) 41.2 ml/min; Magnesium 1.8 mg/dl (1.7-2.4); Phosphorus 2.7 mg/dl (2.5-4.9); Potassium 3.2 mmol/L (3.5-5.1)
[2023-01-17] MEDS: INSULIN ASPART PER UNIT CHARGE SC SCH ×4 (08:05→21:12)
[2023-01-17] MEDS: METOPROLOL SUCC 25MG EXT REL TAB PO SCH (08:42)
[2023-01-17] MEDS: ATORVASTATIN 20 MG TAB PO SCH (08:43)
[2023-01-17] MEDS: PANTOprazole 40 MG TAB PO SCH ×2 (08:43→21:21)
[2023-01-17] MEDS: POT PHOSPHATE MONOBASIC W/ SOD TAB PO SCH ×4 (08:44→21:21)
[2023-01-17] MEDS: VENLAFAXINE HCL XR 37.5 MG CAPXR PO SCH (08:44)
[2023-01-17] MEDS: UMECLIDINIUM/VILANTEROL 62.5/25MCG 7 PUFFS/INHALER INH SCH (08:45)
[2023-01-17] MEDS: POTASSIUM CHLORIDE CRTAB 20 MEQ TABCR PO SCH ×2 (10:33→11:06)
[2023-01-17] MEDS: levETIRAcetam 500 MG in 0.9 % SODIUM CHLORIDE 100 ML IV SCH (10:36)
[2023-01-17] MEDS: CLOPIDOGREL BISULFATE 75 MG TAB PO SCH (11:28)
[2023-01-17] MEDS: APIXABAN 5 MG TABLET PO SCH ×2 (11:28→21:22)
[2023-01-17] MEDS: oxyCODONE HCL IR 5 MG TAB (IMMEDIATE RELEASE) PO PRN ×2 (12:18→21:31)
[2023-01-17] MEDS: LOPERAMIDE HCL 2 MG CAP PO PRN ×2 (12:19→18:30)
[2023-01-17] MEDS: GABAPENTIN 300 MG CAP PO SCH ×2 (13:36→21:22)
--- NOTE | 2023-01-17 14:05 | Hospitalist Progress Note ---
Date of Service January 17, 2023 Assessment & Plan (1) ARF (acute renal failure): Plan: 76-year-old female with PMH of chronic systolic/diastolic heart failure s/p ICD [recent EF of 60 to 65%, TTE 2022], CAD s/p stent, chronic LBBB, mild aortic regurgitation, AAA, HTN, HLD, COPD, DM 2 diet controlled, HCV status post treatment, chronic anemia [baseline hemoglobin of 10], history of DVT on Eliquis [currently on hold as per PCP note], seizure disorder on Keppra treatment, right nasopharyngeal mass, ongoing tobacco abuse presented to the ED 01/11 after being found lying in the garage by her granddaughter who also witnessed seizure activity lasting for a minute. Patient reported to be not taking her Keppra the last couple of days [employer]. Of note, she was recently seen at PCP office/concern for hematochezia/FOBT was positive/patient was instructed to stop Eliquis temporarily until repeat lab work/patient unaware of instruction to hold Eliquis. She is being managed for the following: Likely metabolic versus toxic versus both encephalopathy: Hypoglycemia/hypothermia/elevated BUN at presentation. Resolved. ? Breakthrough seizure: Pt noted to have seizure per pt's grand daughter per HnP note. ?noncompliance . Pt reports she was down in garage for 2 days/reports compliance w/ keppra prior to fall. Fall: Patient was found lying in the garage floor by granddaughter. CPK elevated at 552, does not qualify for rhabdomyolysis diagnosis. History of seizure disorder:Recent confinement in September 2022 with altered mental status when patient was noted to have myoclonic jerk and neurology evaluated, was discharged on Keppra 500 mg bid. Imagings at presentation: C-spine CT/chest and abdomen x-ray/head CT/bilateral knee x-ray/bilateral ankle x-ray: With no acute findings US venous Doppler: No DVT. Chronic superficial thrombus within the greater saphenous vein. CTAP with 1.5 cm hypodensity projecting from the lower pole of left kidney,?? Complicated cyst. Ultrasound recommended. Renal ultrasound: Suggestive of complex cyst. No hydronephrosis. Alert and oriented, she reports she was down in garage for 2 days/reports compliance to keppra prior to fall/noted to have seizure per grand dtr/will likely need zio patch monitoring on discharge. Pt remembers falling ab ruptly/doesn't remember any events prior to fall. Improving appetite. With multiple loose stools overnight and in the morning. Electrolyte abnormality noted, repleted. c/w home julian Neurology evaled, appreciate. Urine tox screen neg Delirium precaution. Hypothermia and hypoglycemia: likely 2/2 starvation and being out in garage. resolved. Shock: At admissionWBC of 16.38 K (procal neg), temperature 31.2 C, pulse rate elevated, blood pressure soft with continued to deteriorate despite 3.5 L IV fluid hydration in the ED --> transferred to ICU for pressor support. No clear source of sepsis. s/p pressor support. Resolved. Admitting blood and urine culture---> 01/11 bl cx likely contaminant, follow repeat Cx. Will complete antibiotic course , source not clear. Transaminitis/Lipase elevation/increase blood lactic acid level: likely from shock, trend. s/p IV fluids. Improving. Acute kidney injury over CKD stage III: Admitting BUN of 181 and creatinine of 4.27. Hold nephrotoxins. Nephrology on board. s/p IV fluid. Labs in AM. resolved. AGMA: likely 2/2 starvation ketosis. resolved GI Bleed: Recent PCP visit for hematochezia, FOBT positive, was instructed to hold Eliquis transiently and get the labs repeated as outpatient. Currently Eliquis and Plavix on hold. Continue with PPI twice daily, GI evaled --appreciate. Trend hemoglobin. Hemoglobin has been stable, resume Eliquis and Plavix. Monitor H&H closely while inpatient and upon discharge. Afib w/ RVR: EKG w/ Afib rvr at presentation, likely 2/2 acute illness (above). Cardio evaled, rate better now. Likely demand ischemia: Likely secondary to A-fib RVR and acute illness. Troponin elevated at presentation, downtrending. EKG with A-fib RVR. Echo with EF of 65 to 70%, left ventricle normal in size and systolic function. Possible functional disability: given recurrent admissions/patient current living situation detrimental to receiving important communications in PCP's office (e.g. message to hold Eliquis). CM consult. PT/OT. Recent acute ischemic right MCA stroke:Continue with statin low-dose, follow-up with neurology in 2-3 weeks on DC. Continue with Eliquis and Plavix as able (see above). History of DVT:history of RLE DVT, continue with Eliquis as able [see above]. Recent history of incidental finding of right nasopharyngeal mass:Follow-up ENT as an outpatient. Appears outpatient ENT evaluation is scheduled for January 2023 per d/w patient in the past. Other chronic medical conditions:c/w or resume home meds as and when able. Systolic/diastolic heart failure s/p ICD (recent EF of 60 to 65%, TTE 2022). CAD status post stent chronic LBBB mild aortic regurgitation AAA, stable at 3 cm measurement as of 2022 outpatient aortic duplex hypertension hyperlipidemia, on statin Rx COPD: no wheezing, c/w home inhalers as able. Was discharged on 2L O2 with rest and ambulation in her last discharge. DM2 diet-controlled, Documented inpatient hemoglobin A1c of 7.1 from 2020. A1C 6.3 in November HCV status post tx chronic anemia, hemoglobin at baseline chronic pain ongoing tobacco abuse: Continues to smoke despite multiple counseling . 3 to 4 cigarettes daily.Nicotine patch as needed DVT prophylaxis.eliquis Full code Admission and Anticipated Discharge Date Admission Date: January 11, 2023 Subjective Patient seen and examined at bedside. Multiple active issues. Patient was lying semiupright in bed, alert and oriented, denies pain, reports feeling better/denies any abdominal discomfort today, reports eating better. Multiple loose stools overnight and in the morning, electrolytes abnormalities noted, repleted. Patient reports good appetite. Patient reports weakness. Will need PT/OT reeval. Physical Exam Physical Exam: GENERAL: alert, oriented, no respiratory distress, On RA. SKIN: Pallor, warm HEENT: Pale palpebral conjunctivae, no ptosis, dry buccal mucosa NECK : Supple, no tenderness CHEST : Decreased breath sounds, no tenderness HEART : RRR, no obvious murmurs ABDOMEN: Some distention, no epigastric tenderness EXTREMITIES : no LE swelling, no LE tenderness, no other conspicuous deformities noted NEUROLOGIC : lethargic, no facial asymmetry, slightly hard of hearing, gait and stance not assessed Results & Data Results & Data Vital Signs (Past 12 Hours) Vital Signs Temp Pulse Pulse Resp BP Pulse Ox O2 Del Method 01/17/23 11:07 36.6 C 70 20 138/82 96 Room Air 01/17/23 08:00 Room Air 01/17/23 07:32 36.6 C 66 20 118/72 93 Room Air 01/17/23 07:31 68 01/17/23 02:59 36.6 C 70 17 156/87 H 97 Room Air (1) ARF (acute renal failure) Acute renal failure type: unspecified Qualified Code(s): N17.9 - Acute kidney failure, unspecified
[2023-01-17] MEDS: ADVANCED PROBIOTIC 1250 MG CAPSULE PO SCH (15:03)
[2023-01-17 20:17] LABS: Uric Acid, Random Urine 7 mg/dL
[2023-01-17] MEDS: levETIRAcetam 500 MG TAB PO SCH (21:19)
[2023-01-18] MEDS: oxyCODONE HCL IR 5 MG TAB (IMMEDIATE RELEASE) PO PRN ×3 (05:16→21:12)
[2023-01-18 08:41] LABS: Hemoglobin 8.6 g/dl (12.0-16.0); Mean Corpuscular Hemoglobin 29.5 pg (25.0-34.0); Mean Corpuscular Hgb Conc 31.9 g/dL (32.0-36.0); Mean Corpuscular Volume 92.5 fL (80.0-100.0); Mean Platelet Volume 10.6 fL (9.4-12.4); Platelet Count 98 K/uL (130-400); RDW Coefficient of Variation 16.4 % (11.5-14.5); RDW Standard Deviation 55.3 fL (36.4-46.3); Red Blood Count 2.92 M/uL (4.20-5.40); White Blood Count 8.63 K/ul (4.8-10.8)
[2023-01-18] MEDS: INSULIN ASPART PER UNIT CHARGE SC SCH ×4 (08:55→21:03)
[2023-01-18 09:03] LABS: Albumin Globulin Ratio 1.1 (0.9-2); Albumin Level 2.6 gm/dl (3.4-5.0); BUN Creatinine Ratio 10.1 (10-20); Bilirubin,Total 0.2 mg/dl (0.2-1.0); Calcium 7.7 mg/dl (8.6-10.3); Creatinine Clr Calc Pharmacy 31.9 ml/min; Est GFR (African American) 46.9 ml/min; Est GFR (Non-African American) 40.5 ml/min; Globulin 2.4 gm/dl (2.5-4.0); Magnesium 1.4 mg/dl (1.7-2.4); Phosphorus 2.8 mg/dl (2.5-4.9); Potassium 3.7 mmol/L (3.5-5.1)
[2023-01-18] MEDS: APIXABAN 5 MG TABLET PO SCH ×2 (09:55→21:11)
[2023-01-18] MEDS: UMECLIDINIUM/VILANTEROL 62.5/25MCG 7 PUFFS/INHALER INH SCH (09:55)
[2023-01-18] MEDS: GABAPENTIN 300 MG CAP PO SCH ×3 (09:55→21:11)
[2023-01-18] MEDS: ATORVASTATIN 20 MG TAB PO SCH (09:56)
[2023-01-18] MEDS: VENLAFAXINE HCL XR 37.5 MG CAPXR PO SCH (09:57)
[2023-01-18] MEDS: PANTOprazole 40 MG TAB PO SCH ×2 (09:57→21:01)
[2023-01-18] MEDS: CLOPIDOGREL BISULFATE 75 MG TAB PO SCH (09:58)
[2023-01-18] MEDS: ADVANCED PROBIOTIC 1250 MG CAPSULE PO SCH (09:58)
[2023-01-18] MEDS: levETIRAcetam 500 MG TAB PO SCH ×2 (09:58→21:00)
[2023-01-18] MEDS: METOPROLOL SUCC 25MG EXT REL TAB PO SCH (09:59)
[2023-01-18] MEDS: LOPERAMIDE HCL 2 MG CAP PO PRN ×2 (10:29→13:43)
[2023-01-18] MEDS: CARBOHYDRATES FOR HYPOGLYCEMIA PO PRN (11:08)
[2023-01-18] MEDS: MAGNESIUM SULFATE / D5W 1 GM/100 ML BAG IV SCH ×2 (11:24→13:37)
--- NOTE | 2023-01-18 11:44 | Hospitalist Progress Note ---
Date of Service January 18, 2023 Assessment & Plan (1) ARF (acute renal failure): Plan: 76-year-old female with PMH of chronic systolic/diastolic heart failure s/p ICD [recent EF of 60 to 65%, TTE 2022], CAD s/p stent, chronic LBBB, mild aortic regurgitation, AAA, HTN, HLD, COPD, DM 2 diet controlled, HCV status post treatment, chronic anemia [baseline hemoglobin of 10], history of DVT on Eliquis [was reportedly on hold as per PCP note], seizure disorder on Keppra treatment, right nasopharyngeal mass, ongoing tobacco abuse presented to the ED 01/11 after being found lying in the garage by her granddaughter who also witnessed seizure activity lasting for a minute. Patient reported to be not taking her Keppra the last couple of days [employer]. Of note, she was recently seen at PCP office/concern for hematochezia/FOBT was positive/patient was instructed to stop Eliquis temporarily until repeat lab work/patient unaware of instruction to hold Eliquis. She is being managed for the following: Encephalopathy Likely metabolic versus toxic Possible Breakthrough seizure: Pt noted to have seizure per chart review. ?noncompliance Fall: Patient was found lying in the garage floor by granddaughter. CPK elevated at 552 History of seizure disorder:Recent confinement in September 2022 with altered mental status when patient was noted to have myoclonic jerk and neurology evaluated, was discharged on Keppra 500 mg bid. Imagings at presentation: C-spine CT/chest and abdomen x-ray/head CT/bilateral knee x-ray/bilateral ankle x-ray: With no acute findings US venous Doppler: No DVT. Chronic superficial thrombus within the greater saphenous vein. CTAP with 1.5 cm hypodensity projecting from the lower pole of left kidney,?? Complicated cyst. Ultrasound recommended. Renal ultrasound: Suggestive of complex cyst. No hydronephrosis. Reported she was down in garage for 2 days/reports compliance to keppra prior to fall Noted to have seizure per grand daughter Patient remembers falling abruptly/doesn't remember any events prior to fall. Urine tox screen neg Encephalopathy resolved Continue home keppra Neurology evaluation noted Delirium precaution. PCP can arrange Zio patch monitoring Hypothermia and hypoglycemia: Likely 2/2 starvation and being out in garage. Now resolved. Shock: On admissionWBC of 16.38 K (procal neg), temperature 31.2 C, pulse rate elevated, blood pressure soft with continued to deteriorate despite 3.5 L IV fluid hydration in the ED --> transferred to ICU for pressor support. No clear source of sepsis. However, completed antibiotic treatment Shock resolved Blood cultures negative Urine culture - yeast (contaminant) Transaminitis/Elevated lactate Likely from shock Resolved Acute kidney injury over CKD stage III: AGMA: Resolved Admitting BUN of 181 and creatinine of 4.27. Nephrology recs noted Cr down to 1.29 GI Bleed: Recent PCP visit for hematochezia, FOBT positive, was instructed to hold Eliquis transiently and get the labs repeated as outpatient. Home Eliquis and Plavix has been resumed. Hb stable GI evaluation noted Continue with PPI twice daily Follow up GI outpatient for scopes Afib w/ RVR: Likely demand ischemia EKG w/ Afib rvr at presentation Cards eval noted Troponin elevated at presentatio Echo with EF of 65 to 70%, left ventricle normal in size and systolic function. Possible functional disability: Patient declined placement at this time Recent acute ischemic right MCA stroke: Continue with statin low-dose, Follow-up with neurology in 2-3 weeks on DC. Continue with Eliquis and Plavix as able History of DVT: History of RLE DVT, continue with Eliquis Recent history of incidental finding of right nasopharyngeal mass: Follow-up ENT as an outpatient. Appears outpatient ENT evaluation is scheduled for January 2023 per patient Diarrhea Hypomagnesemia C diff negative Trial of imodium Replete electrolytes and monitor Other chronic medical conditions: Systolic/diastolic heart failure s/p ICD (recent EF of 60 to 65%, TTE 2022). CAD status post stent chronic LBBB mild aortic regurgitation AAA, stable at 3 cm measurement as of 2022 outpatient aortic duplex hypertension hyperlipidemia, on statin Rx COPD: no wheezing, c/w home inhalers as able. Was discharged on 2L O2 with rest and ambulation in her last discharge. DM2 diet-controlled, Documented inpatient hemoglobin A1c of 7.1 from 2020. A1C 6.3 in November HCV status post tx Chronic anemia, hemoglobin at baseline Chronic pain Ongoing tobacco abuse: Continues to smoke despite multiple counseling DVT prophylaxis.Ganesh Full code I spent a total of 50 minutes coordinating, documenting and providing care for this patient excluding time spent in performance of separately billed services Admission and Anticipated Discharge Date Admission Date: January 11, 2023 Subjective Patient seen and examined Reports loose stool today Denied all other complaints Stating she wants to leave right away After multiple conversations with patient, her RN and myself, she agreed to stay Physical Exam Constitutional: + well hydrated; no acute distress Eyes: PERRL, conjunctivae normal, anicteric sclerae ENMT: external ear and nose normal, oropharynx normal Respiratory: normal respiratory effort, lungs clear to auscultation Cardiovascular: Rate/Rhythm: regular rate and regular rhythm S1 S2 Gastrointestinal (Abdomen): normal bowel sounds, soft, nontender, no hepatosplenomegaly Musculoskeletal: No pedal edema Neurologic: PERRL, EOMI, accommodation nl, no face palsy, no dysarthria Psychiatric: A+Ox3, euthymic affect Results & Data Results & Data Vital Signs (Past 12 Hours) Vital Signs Temp Pulse Resp BP Pulse Ox O2 Del Method 01/18/23 10:42 36.6 C 72 20 116/71 96 Room Air 01/18/23 07:49 36.6 C 96 H 20 101/61 94 Room Air 01/18/23 03:26 37.0 C 79 18 92/53 L Room Air Laboratory Results Abnormal lab results 01/17/23 01/17/23 01/18/23 Range/Units 16:33 20:33 07:21 RBC (4.20-5.40) M/uL Hgb (12.0-16.0) g/dl Hct (37.0-47.0) % MCHC (32.0-36.0) g/dL RDW Std Deviation (36.4-46.3) fL RDW Coeff of Julia (11.5-14.5) % Plt Count (130-400) K/uL Chloride (98-107) mmol/L Creatinine (0.6-1.2) mg/dl Glucose (70-99(Fasting)) mg/dl POC Glucose 111 H 109 H 140 H (70-99) mg/dl Calcium (8.6-10.3) mg/dl Magnesium (1.7-2.4) mg/dl Total Protein (6.0-8.3) gm/dl Albumin (3.4-5.0) gm/dl Globulin (2.5-4.0) gm/dl 01/18/23 01/18/23 01/18/23 Range/Units 08:25 08:25 11:03 RBC 2.92 L (4.20-5.40) M/uL Hgb 8.6 L (12.0-16.0) g/dl Hct 27.0 L (37.0-47.0) % MCHC 31.9 L (32.0-36.0) g/dL RDW Std Deviation 55.3 H (36.4-46.3) fL RDW Coeff of Julia 16.4 H (11.5-14.5) % Plt Count 98 L (130-400) K/uL Chloride 108 H (98-107) mmol/L Creatinine 1.29 H (0.6-1.2) mg/dl Glucose 177 H (70-99(Fasting)) mg/dl POC Glucose 63 L* (70-99) mg/dl Calcium 7.7 L (8.6-10.3) mg/dl Magnesium 1.4 L (1.7-2.4) mg/dl Total Protein 5.0 L (6.0-8.3) gm/dl Albumin 2.6 L (3.4-5.0) gm/dl Globulin 2.4 L (2.5-4.0) gm/dl 01/18/23 Range/Units 11:16 RBC (4.20-5.40) M/uL Hgb (12.0-16.0) g/dl Hct (37.0-47.0) % MCHC (32.0-36.0) g/dL RDW Std Deviation (36.4-46.3) fL RDW Coeff of Julia (11.5-14.5) % Plt Count (130-400) K/uL Chloride (98-107) mmol/L Creatinine (0.6-1.2) mg/dl Glucose (70-99(Fasting)) mg/dl POC Glucose 56 L* (70-99) mg/dl Calcium (8.6-10.3) mg/dl Magnesium (1.7-2.4) mg/dl Total Protein (6.0-8.3) gm/dl Albumin (3.4-5.0) gm/dl Globulin (2.5-4.0) gm/dl (1) ARF (acute renal failure) Acute renal failure type: unspecified Qualified Code(s): N17.9 - Acute kidney failure, unspecified
[2023-01-19] MEDS: oxyCODONE HCL IR 5 MG TAB (IMMEDIATE RELEASE) PO PRN ×2 (02:27→08:12)
[2023-01-19 07:10] LABS: Hematocrit (blood only) 28.2 % (37.0-47.0); Hemoglobin 8.8 g/dl (12.0-16.0); Mean Corpuscular Hemoglobin 29.8 pg (25.0-34.0); Mean Corpuscular Hgb Conc 31.2 g/dL (32.0-36.0); Mean Corpuscular Volume 95.6 fL (80.0-100.0); Mean Platelet Volume 11.6 fL (9.4-12.4); Platelet Count 119 K/uL (130-400); RDW Coefficient of Variation 16.3 % (11.5-14.5); RDW Standard Deviation 57.2 fL (36.4-46.3); Red Blood Count 2.95 M/uL (4.20-5.40); White Blood Count 8.45 K/ul (4.8-10.8)
[2023-01-19 07:23] LABS: BUN Creatinine Ratio 10.8 (10-20); Creatinine Clr Calc Pharmacy 33.7 ml/min; Est GFR (African American) 51.2 ml/min; Est GFR (Non-African American) 44.2 ml/min; Magnesium 1.6 mg/dl (1.7-2.4); Phosphorus 2.5 mg/dl (2.5-4.9); Potassium 3.7 mmol/L (3.5-5.1)
[2023-01-19] MEDS ORDERED: MAGNESIUM SULFATE / D5W 1 GM/100 ML BAG IV SCH (07:45)
[2023-01-19] MEDS: GABAPENTIN 300 MG CAP PO SCH (08:14)
[2023-01-19] MEDS: CLOPIDOGREL BISULFATE 75 MG TAB PO SCH (08:14)
[2023-01-19] MEDS: VENLAFAXINE HCL XR 37.5 MG CAPXR PO SCH (08:15)
[2023-01-19] MEDS: APIXABAN 5 MG TABLET PO SCH (08:15)
[2023-01-19] MEDS: levETIRAcetam 500 MG TAB PO SCH (08:17)
[2023-01-19] MEDS: ADVANCED PROBIOTIC 1250 MG CAPSULE PO SCH (08:17)
[2023-01-19] MEDS: METOPROLOL SUCC 25MG EXT REL TAB PO SCH (08:19)
[2023-01-19] MEDS: PANTOprazole 40 MG TAB PO SCH (08:20)
[2023-01-19] MEDS: UMECLIDINIUM/VILANTEROL 62.5/25MCG 7 PUFFS/INHALER INH SCH (08:22)
[2023-01-19] MEDS: INSULIN ASPART PER UNIT CHARGE SC SCH ×2 (08:25→12:12)
[2023-01-19] MEDS: ATORVASTATIN 20 MG TAB PO SCH (11:06)
--- NOTE | 2023-01-19 13:46 | Discharge Summary ---
Date of Service January 19, 2023 Admission HPI Per Admitting Provider History obtained from patient and records. Medical history significant for chronic systolic/diastolic heart failure status post ICD ( EF of 60%, TTE 2022), CAD status post stent, hx CVA, chronic LBBB, valvular heart disease (mild AR/MR/TR), PAF, AAA, hypertension, hyperlipidemia, COPD, DM2 diet-controlled, HCV status post tx, chronic anemia (baseline hemoglobin of 9-10), history of DVT (Eliquis Rx currently on hold as per PCP note), seizure disorder on Keppra Rx, right nasopharyngeal mass, chronic pain, ongoing tobacco abuse. Two admissions since last month. Recent confinement 2 weeks ago for COPD exacerbation. Patient seen at PCPs office on follow-up visit last week. Concern for hematochezia. Patient complaining of upper abdominal pain. Outpatient FOBT positive. Outpatient provider messaged spring encaser to contact patient to go for lab work and stop Eliquis interim. Office unable to contact patient/family due to unanswered calls as per outpatient documentation. Patient unaware of instructions to hold Eliquis. Poor appetite the last few days. Patient increasingly weak. Usual pain in toes of the left foot for which patient is supposed to see a data systems analyst. Outpatient arterial duplex June 2022 negative for vascular disease. Patient fell at garage in her home today. Unable to get up. Patient denies headache, chest pain, SOB. Later found by granddaughter who witnessed seizure activity lasting for a minute. Patient has not been able to take Keppra in the last couple of days as per report. Patient brought to the ER for evaluation. Patient to be in rapid A-fib on EKG done at the ER. IV cefepime administered at the ER. 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 Exam Per Admitting Provider GENERAL: uncomfortable, no respiratory distress SKIN: Pallor, warm HEENT: Pale palpebral conjunctivae, no ptosis, dry buccal mucosa NECK : Supple, no tenderness CHEST : Decreased breath sounds, no tenderness HEART : RRR, no obvious murmurs ABDOMEN: Some distention, minimal epigastric tenderness EXTREMITIES : no LE swelling, no LE tenderness, no other conspicuous deformities noted NEUROLOGIC : Coherent, no facial asymmetry, slightly hard of hearing, gait and stance not assessed Principal Diagnosis Fall Encephalopathy vs Breakthrough seizure Shock Acute kidney injury Atrial fibrillation Discharge Exam Constitutional + well hydrated; no acute distress Eyes PERRL, conjunctivae normal, anicteric sclerae ENMT external ear and nose normal, oropharynx normal Respiratory normal respiratory effort, lungs clear to auscultation Cardiovascular Rate/Rhythm: regular rate and regular rhythm S1 S2 Gastrointestinal (Abdomen) normal bowel sounds, soft, nontender, no hepatosplenomegaly Musculoskeletal No pedal edema Neurologic PERRL, EOMI, accommodation nl, no face palsy, no dysarthria Psychiatric A+Ox3, euthymic affect Discharge Data Allergies Allergy/AdvReac Type Severity Reaction Status Date / Time NSAIDS (Non-Steroidal AdvReac Severe GI ISSUES Verified 12/17/22 20:25 Anti-Inflamma Xtxfwcm-PQK-UxI Reductase AdvReac Severe LIVER Verified 12/17/22 20:25 Inhibitor FUNCTION [Zbsbbbv-Drx-Uwe Reductase ELEVATES Inhibitor] isosorbide AdvReac Intermediate VOMIT/HEADA Verified 12/17/22 20:25 CARLOS tramadol AdvReac Intermediate VOMITING Verified 12/17/22 20:25 Consultations 01/11/23 22:12 ED Decision to Admit Stat 01/12/23 02:00 Consult Cardiology Routine 01/12/23 09:45 Consult Nephrology Routine 01/12/23 15:28 Consult Gastroenterology Routine 01/12/23 16:08 Consult Neurology Routine 01/12/23 20:08 Consult Tier And Detonator Routine Ordered Studies 01/11/23 20:42 CT cervical spine wo con Stat CT head/brain wo con Stat 01/11/23 23:02 CT abd pelvis wo con Stat 01/12/23 09:52 US Renal Bladder [US renal/blad retro comp] Routine 01/12/23 09:55 US venous doppler LE BI Urgent 01/15/23 08:54 US venous doppler LE BI Routine Hospital Course (1) ARF (acute renal failure): 76-year-old female with PMH of chronic systolic/diastolic heart failure s/p ICD [recent EF of 60 to 65%, TTE 2022], CAD s/p stent, chronic LBBB, mild aortic regurgitation, AAA, HTN, HLD, COPD, DM 2 diet controlled, HCV status post treatment, chronic anemia [baseline hemoglobin of 10], history of DVT on Eliquis [was reportedly on hold as per PCP note], seizure disorder on Keppra treatment, right nasopharyngeal mass, ongoing tobacco abuse presented to the ED 01/11 after being found lying in the garage by her granddaughter who also witnessed seizure activity lasting for a minute. 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 Of note, she was recently seen at PCP office/concern for hematochezia/FOBT was positive/patient was instructed to stop Eliquis temporarily until repeat lab work/patient unaware of instruction to hold Eliquis. She was managed for the following: Encephalopathy Likely metabolic versus toxic Possible Breakthrough seizure: Pt noted to have seizure per chart review. ?noncompliance Fall: Patient was found lying in the garage floor by granddaughter. CPK elevated at 552 History of seizure disorder:Recent confinement in September 2022 with altered mental status when patient was noted to have myoclonic jerk and neurology evaluated, was discharged on Keppra 500 mg bid. Imagings at presentation: C-spine CT/chest and abdomen x-ray/head CT/bilateral knee x-ray/bilateral ankle x-ray: With no acute findings US venous Doppler: No DVT. Chronic superficial thrombus within the greater saphenous vein. CTAP with 1.5 cm hypodensity projecting from the lower pole of left kidney,?? Complicated cyst. Ultrasound recommended. Renal ultrasound: Suggestive of complex cyst. No hydronephrosis. Reported she was down in garage for 2 days/reports compliance to keppra prior to fall Noted to have seizure per grand daughter Patient remembers falling abruptly/doesn't remember any events prior to fall. Urine tox screen neg Encephalopathy resolved Continue home keppra Neurology evaluatied PCP can arrange Zio patch monitoring Trazodone, hydroxyzine discontinued Hypothermia and hypoglycemia: Likely 2/2 starvation and being out in garage. Now resolved. Shock: On admissionWBC of 16.38 K (procal neg), temperature 31.2 C, pulse rate elevated, blood pressure soft with continued to deteriorate despite 3.5 L IV fluid hydration in the ED --> transferred to ICU for pressor support. No clear source of sepsis. However, completed antibiotic treatment Shock resolved Blood cultures negative Urine culture - yeast (contaminant) Transaminitis/Elevated lactate Likely from shock Resolved Acute kidney injury over CKD stage III: AGMA: Resolved Admitting BUN of 181 and creatinine of 4.27. Nephrology recs noted Cr down to 1.2 GI Bleed: Recent PCP visit for hematochezia, FOBT positive, was instructed to hold Eliquis transiently and get the labs repeated as outpatient. Home Eliquis and Plavix was resumed. Hb has been stable Was evaluated by GI inpatient. Recommend outpatient followup for endoscopies/colonoscopy Continue with PPI Afib w/ RVR: Likely demand ischemia EKG w/ Afib rvr at presentation Was evaluated by Cardiology Troponin elevated at presentation Echo with EF of 65 to 70%, left ventricle normal in size and systolic function. Medications changes based on inpatient's clinical status Lisinopril, lasix, potassium discontinued on admission BP has been stable since Metoprolol succinate dose reduced to 25mg daily. HR has been controlled since Possible functional disability: PT/OT evaluated Rehab recommended Patient declined this despite ambulatory dysfunction CM arranged HH/PT Recent acute ischemic right MCA stroke: Continue with statin low-dose, Follow-up with neurology in 2 weeks Continue with Eliquis and Plavix History of DVT: History of RLE DVT, continue with Eliquis Recent history of incidental finding of right nasopharyngeal mass: Follow-up ENT as an outpatient. Appears outpatient ENT evaluation is scheduled for January 2023 per patient Diarrhea Hypomagnesemia C diff negative Diarrhea resolved Other chronic medical conditions: Systolic/diastolic heart failure s/p ICD (recent EF of 60 to 65%, TTE 2022). CAD status post stent chronic LBBB mild aortic regurgitation AAA, stable at 3 cm measurement as of 2022 outpatient aortic duplex hypertension hyperlipidemia, on statin Rx COPD: no wheezing, c/w home inhalers as able. Was discharged on 2L O2 with rest and ambulation in her last discharge. DM2 diet-controlled, Documented inpatient hemoglobin A1c of 7.1 from 2020. A1C 6.3 in November HCV status post tx Chronic anemia, hemoglobin at baseline Chronic pain Ongoing tobacco abuse: Continues to smoke despite multiple counseling High risk readmission Concern for poor adherence She stated she has all her meds and does not need refills Total Time Total Time Spent Total Time Spent (In Minutes): 45 Total Time Includes: Examination of the Patient, Discharge Planning and Medication Reconciliation Discharge Plan Discharge Items Patient Disposition: Home - Home Health Services Reason For Visit: Fall Discharge Diagnosis: Fall Encephalopathy vs Breakthrough seizure Shock Acute kidney injury Atrial fibrillation Activity: As commented below Activity Comment: Per Physical therapist recommendations Non-emergency contact: Primary Care Provider, Licensed Chemical Spray Technician and Neurologist Call non-emergency contact if: you have any medication questions and your symptoms worsen Follow-up/Referrals: Roman Ennis MD [Primary Care Provider] - (Date & Time 01/24/2023 10:20 AM Provider Roman Ennis III, MD Department [facility] ) Diet: Heart Healthy and Low Sodium (2gm) Addtl Attending Provider Instructions: Mrs Tong You were brought into the hospital after fall at home. You were managed for the above listed diagnoses. You were evaluated by Neck Cutter, Controls Technician and Licensed Chemical Spray Technician while inpatient. You need to follow up with Gastroenterology in the office for colonoscopy. Rehab was strongly recommended based on your functional status but you vehemently declined that. You are being discharged home with home health and home PT. You also reported you have all your medications at home. Please ensure you follow up with your Primary Doctor as well as Neurology due to your recent stroke. Please continue taking your eliquis and clopidogrel. Please stop taking the following medications: -Clonidine, Lisinopril, Furosemide, Potassium, Hydroxyzine, Potassium Please stop taking 100mg tab of Metoprolol succinate and start taking the 25mg tab of metoprolol succinate daily Your doctors will reassess need for medications on follow up and make changes as needed Pending Studies at Discharge: No Stand-Alone Forms: [facility], Smoking Cessation Medications and DC Order Prescriptions: New metoprolol succinate 25 mg Tablet Extended Release 24 Hr 25 mg PO QAM 30 Days Qty: 30 0RF Continued pantoprazole 40 mg Tablet,Delayed Release (Dr/Ec) 40 mg PO DAILYBB Qty: 30 nitroglycerin 0.4 mg Tablet, Sublingual 0.4 mg sublingual DIRECTED PRN (Reason: Chest Pain) Qty: 0 ondansetron HCl 4 mg Tablet 4 mg PO Q8H PRN (Reason: Nausea) albuterol sulfate 90 mcg/actuation Hfa Aerosol Inhaler 2 puff INHALATION Q4H PRN (Reason: Shortness Of Breath Or Wheezing) Anoro Ellipta 62.5-25 mcg/actuation Blister With Device 1 inh INHALATION DAILY gabapentin 300 mg capsule 300 mg PO TID clopidogrel 75 mg Tablet 75 mg PO QAM Qty: 30 0RF Eliquis 5 mg Tablet 5 mg PO BID Qty: 60 0RF Rx Instructions: dc as per pcp note 01/11/23 levetiracetam 500 mg tablet 500 mg PO [facility] oxycodone 5 mg tablet 5 mg PO Q6H PRN (Reason: Severe Pain (Scale Score 7-10)) atorvastatin 40 mg tablet 20 mg PO DAILY Rx Instructions: PER [facility] MED LIST "PT TAKING 1/2 TAB DAILY". venlafaxine 75 mg capsule,extended release 24hr 225 mg PO QAM Discontinued clonidine HCl 0.1 mg Tablet 0.05 mg PO QAM Qty: 0 lisinopril 20 mg Tablet 20 mg PO DAILY Qty: 0 metoprolol succinate 100 mg Tablet Extended Release 24 Hr 100 mg PO DAILY Qty: 0 hydroxyzine HCl 25 mg Tablet 25 mg PO TID PRN (Reason: Anxiety) trazodone 50 mg tablet 25 mg PO HS furosemide 40 mg tablet 40 mg PO QAM potassium chloride 20 mEq tablet,ER particles/crystals 20 meq PO DAILY Discharge Orders: Discharge Order (Routine); Ordered 01/19/23 Ordered By: Sharifa Olguin Admission Data Admit Date/Time: 01/11/23 23:08 Attending Provider: Sharifa Olguin I. Admit Provider: Trung Leon Primary Care Provider: Roman Ennis Other Providers: Trung Leon ; Carmen Ramirez ; Yajaira Aguirre ; Andrea Velasquez ; Linda Montemayor ; Bettina Allison ; Mili Lawrence ; Gisell Howard ; Dre Patino ; Santos Saavedra ; Roxy Roberts ; Arvind Hawkins ; Maurice Palmer ; Ramila Quiros ; Jacki Prabhakar ; Yolanda Pollack ; uQeenie Gonzalez ; Tammie Torres ; Godfrey Bal ; Link Fairchild ; Eunice Gayle ; Rodríguez French Jr ; Vineet Villalpando ; Alejandrina Wyatt ; Yonny Crawford ; [facility] Other Interventions: Discharge Summary Assessment (RN) Last Done: 01/19/23 15:10
== END 2023-01-19 13:48 | disposition home health service (06) | DRG 682 ==
LOC: ED 20:21 → SUATTDRO 23:08 → EDINP 23:08 → 1E 01-12 01:41 → 2S 01-14 14:06

== ENCOUNTER 2023-06-28 17:26 | Inpatient (IN) ==
--- NOTE | 2023-06-28 17:53 | Emergency Department Note ---
Impression & Plan CHF exacerbation, Hypoxia, Symptomatic anemia ED Provider Note NAME: JEAN-CLAUDE MIRELES AGE: 78 SEX: F ARRIVES VIA: Ambulance INFORMANT: Patient ED PROVIDER(S): Ming Felton MD CHIEF COMPLAINT: Weakness, headache, dizziness, nausea PLAN: Disposition: Admit MEDICAL DECISION MAKING: The patient is a pleasant 78-year-old woman with a past medical history of CKD, atrial fibrillation on Eliquis, chronic hypoxic respiratory failure on as needed home oxygen, history of COPD, history of CVA, history of DVT, CAD history ischemic cardiomyopathy who presents to the emergency department via EMS for worsening generalized weakness, body aches, feverishness, cough congestion over the past 24 hours. She denies any diarrhea and reports she has had brown stool without blood or melena/black stool. She denies any chest pain or abdominal pain. She reports feeling lightheaded/dizzy. On my evaluation the patient is fatigued appearing but in no acute distress, afebrile with stable vital signs. She is 80% on room air improving to upper 90s on 4 L nasal cannula. She has moderate pallor. Abdomen is nontender. Diminished breath sounds of bilateral lower lung gutierrez. EKG is paced. Chest x-ray demonstrates vascular congestion otherwise no focal infiltrates per my preliminary independent interpretation. WBC 4.5K, with lymphopenia, nonspecific. H/H 6.8/24.0 without recent for comparison but decreased from prior. Platelets within normal limits. Chemistry without metabolic acidosis. Electrolytes LFTs without significant abnormality. High-sensitivity troponin 80, nonspecific and similar to prior. BNP 1030. Lipase is not elevated. Respiratory BioFire was negative. Iron studies were obtained and were notable for low iron. I did review the patient's anemia with the patient and she did consent for blood transfusion. Patient was crossed for 2 units of PRBCs with order to transfuse 1 unit for now. She does agree with plan for admission for further management. Urinalysis is pending. Blood cultures, lactate and procalcitonin ordered and pending. CT of the head and abdomen pelvis ordered for completeness and are pending. IV Lasix ordered for component of hypervolemia in setting of history of CHF. Case was discussed with Dr. Roach, [facility] hospitalist, who will evaluate the patient for admission. CT of the head negative for acute normality. CT of the pelvis also negative for acute intra-abdominal process. Infrarenal AAA is noted similarly described in December 2022. UA did result with 1+ bacteria but epithelial cells present and no WBCs. Further management per admitting team. Triage Nursing notes reviewed and agree them. Prior/external medical records reviewed Vital Signs: reviewed Differential diagnosis: Infection, dehydration, metabolic abnormality, hypo/hyperglycemia, electrolyte disturbance, anemia, hypoxia, cardiac sources, intracerebral event, toxicologic, neurologic, as well as other pathologies. ER treatment provided: See below. Diagnostics interpreted by me: ECG: Atrial sensed ventricular paced rhythm, 89 bpm, no ectopy, no overt acute ischemia Cardiac monitoring: An order for continuous cardiac monitoring was placed and demonstrated atrial sensed, ventricular paced rhythm, 89 bpm. No ectopy. Laboratory studies: See below Imaging studies: See below Consultation(s): Case was discussed with Dr. Roach, [facility] hospitalist, who will evaluate the patient for admission. HPI: The patient is a pleasant 78-year-old woman with a past medical history of CKD, atrial fibrillation on Eliquis, chronic hypoxic respiratory failure on as needed home oxygen, history of COPD, history of CVA, history of DVT, CAD history ischemic cardiomyopathy who presents to the emergency department via EMS for worsening generalized weakness, body aches, feverishness, cough congestion over the past 24 hours. She denies any diarrhea and reports she has had brown stool without blood or melena/black stool. She denies any chest pain or abdominal pain. She reports feeling lightheaded/dizzy. ROS: See above HPI for pertinent positives & negatives. A total of 10 systems reviewed and were otherwise negative. VITALS:See Below PHYSICAL EXAMINATION: GENERAL: Awake, alert, fatigued-appearing, in no distress HENT: Normocephalic, atraumatic. Oropharynx unremarkable. EYES: Normal conjunctiva. Sclera non-icteric. NECK: Supple. No nuchal rigidity. FROM. No JVD. RESPIRATORY: Diminished breath sounds of bilateral lower lung gutierrez. CARDIAC: Regular rate, normal rhythm. Extremities warm and well perfused. Pulses equal. ABDOMEN: Soft, non-distended. No tenderness to palpation. No rebound or guarding. No masses. RECTAL: Deferred. MUSCULOSKELETAL: Chest examination reveals no tenderness. The back is symmetrical on inspection without obvious abnormality. There is no CVA tenderness to palpation. No joint edema. LOWER EXTREMITIES: Calves are equal size bilaterally and non-tender. No edema. No discoloration. NEURO: Normal sensorium. No sensory or motor deficits noted. SKIN: Moderate pallor. No rash or jaundice noted. ED COURSE: Critical Care: I have personally spent greater than 35 minutes of critical care time in the direct management of this patient. This includes bedside care, interpretation of diagnostic studies, and testing, discussion with consultants, patient, and family members, and other required patient management activities. This 35 minutes is in excess of all separately billable procedures. Ming Felton MD Past Med/Surg History Medical History History of DVT (deep vein thrombosis) Seizure disorder Paroxysmal atrial fibrillation Diabetes mellitus, type II History of CVA (cerebrovascular accident) Chronic pain Respiratory acidosis Elevated troponin Anxiety Chronic hepatitis C without hepatic coma CKD (chronic kidney disease), stage III COPD, group C, by GOLD 2017 classification Acute anterior wall [place] LBBB (left bundle branch block) Migraine GERD (gastroesophageal reflux disease) OA (osteoarthritis) Hyperlipidemia HTN (hypertension) Ischemic cardiomyopathy CAD (coronary artery disease) "[place] 2006. S/P PCI/Stent RCA" Hypoxia H/O cardiac pacemaker Surgical History H/O release of tendon History of carpal tunnel surgery H/O: hysterectomy Hx of cataract surgery S/P cardiac cath S/P cholecystectomy History of implantable cardioverter-defibrillator (ICD) placement Family History Father , age 81 of lung cancer Prostate cancer Heart disease Thyroid disorder Lung cancer Mother , age 80 with COPD Cancer Cervical Coronary heart disease s/p CABG Diabetes COPD (chronic obstructive pulmonary disease) Social History Smoking Status: Current some day smoker Tobacco Type: Cigarettes Age Started Using Tobacco: 23; packs per day: 0.5; Cigarettes Per Day: 4; Second Hand Exposure: No; Do You Dip or Chew Tobacco: No; Hx Alcohol Use: No Hx Substance Use: No Preferred Language: Kazakh Communication Ability: Impaired Claim Adjuster Required: No Beliefs That Will Affect Care: None Current Living Situation: Alone current occupational status: retired 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 Feels Safe at Home: Yes Assistive Devices: Glasses Allergies Allergies Allergy/AdvReac Type Severity Reaction Status Date / Time NSAIDS (Non-Steroidal AdvReac Severe GI ISSUES Verified 06/28/23 18:11 Anti-Inflamma Xdtmnuy-[id number]-PdT Reductase AdvReac Severe LIVER Verified 06/28/23 18:11 Inhibitor FUNCTION [Pqeuzly-Qlt-Rdq Reductase ELEVATES Inhibitor] isosorbide AdvReac Intermediate VOMIT/HEADA Verified 06/28/23 18:11 CARLOS tramadol AdvReac Intermediate VOMITING Verified 06/28/23 18:11 Home Meds Home Medications Medication Instructions Recorded Confirmed nitroglycerin 0.4 mg sublingual 0.4 mg sublingual DIRECTED PRN 03/30/17 06/28/23 tablet Chest Pain #0 BTLS pantoprazole 40 mg tablet,delayed 40 mg PO DAILYBB #30 tabs 03/30/17 06/28/23 release oxycodone 5 mg tablet 5 mg PO Q6H PRN Severe Pain (Scale 08/16/20 06/28/23 Score 7-10) atorvastatin 40 mg tablet 20 mg PO DAILY 10/05/22 06/28/23 gabapentin 300 mg capsule See Rx Instructions .Route .COMPLEX 12/17/22 06/28/23 ondansetron HCl 4 mg tablet 4 mg PO Q8H PRN Nausea 12/17/22 06/28/23 umeclidinium 62.5 mcg-vilanterol 1 inh inhalation DAILY 12/17/22 06/28/23 25 mcg/actuation powdr for inhalation (Anoro Ellipta) levetiracetam 500 mg tablet 500 mg PO AMHS 01/11/23 06/28/23 cyanocobalamin (vitamin B-12) 1,000 mcg PO QAM 06/28/23 06/28/23 1,000 mcg tablet (Vitamin B-12) furosemide 40 mg tablet See Rx Instructions .Route .COMPLEX 06/28/23 06/28/23 lisinopril 20 mg tablet 20 mg PO QAM 06/28/23 06/28/23 metoprolol succinate 25 mg 25 mg PO BID 06/28/23 06/28/23 tablet,extended release 24 hr trazodone 50 mg tablet 25 mg PO HS 06/28/23 06/28/23 Previous Rx's Medication Instructions Recorded apixaban 5 mg tablet (Eliquis) 5 mg PO BID #60 tabs 12/19/22 clopidogrel 75 mg tablet 75 mg PO QAM #30 tabs 12/19/22 Results & Data (ED) Vital Signs Vital Signs - 24 hr 06/28/23 17:45 06/28/23 17:50 06/28/23 18:01 Temperature 37.3 C Temperature Source Oral Pulse Rate 91 H 87 86 Pulse Rate from SpO2 Sensor Pulse Rhythm Regular Respiratory Rate 15 12 Blood Pressure 127/71 Blood Pressure Mean 89 Pulse Oximetry 88 L 99 Oxygen Delivery Method Room Air Nasal Cannula Oxygen Flow Rate 4 Sepsis Recent Fever Within 48 Hours No Sepsis New/Unexplained Change in Mental Status No Sepsis Action Taken by Nursing No Action Required 06/28/23 20:58 06/28/23 21:00 06/28/23 21:00 Temperature 37.0 C Temperature Source Oral Pulse Rate 83 85 Pulse Rate from SpO2 Sensor 85 Pulse Rhythm Respiratory Rate 18 23 Blood Pressure 111/68 122/70 Blood Pressure Mean 82 94 Pulse Oximetry 97 98 Oxygen Delivery Method Oxygen Flow Rate Sepsis Recent Fever Within 48 Hours Sepsis New/Unexplained Change in Mental Status Sepsis Action Taken by Nursing Laboratory Data Attestation: I reviewed the patient's lab results. 06/28/23 18:00 06/28/23 18:00 Lab Results 06/28/23 06/28/23 06/28/23 Range/Units 18:00 18:01 18:10 WBC 4.54 L (4.8-10.8) K/ul RBC 3.21 L (4.20-5.40) M/uL Hgb 6.8 L* (12.0-16.0) g/dl Hct 24.0 L (37.0-47.0) % MCV 74.8 L (80.0-100.0) fL MCH 21.2 L (25.0-34.0) pg MCHC 28.3 L (32.0-36.0) g/dL RDW Std Deviation 48.5 H (36.4-46.3) fL RDW Coeff of Julia 18.3 H (11.5-14.5) % Plt Count 285 (130-400) K/uL MPV 9.9 (9.4-12.4) fL Immature Gran % (Auto) 0.7 % Neut % (Auto) 75.7 % Lymph % (Auto) 11.7 % Summers % (Auto) 11.5 % Eos % (Auto) 0.0 % Baso % (Auto) 0.4 % Reticulocyte % (Auto) 2.56 H (0.50-2.00) % Neut # (Auto) 3.44 (1.40-6.50) K/uL Lymph # (Auto) 0.53 L (1.20-3.40) K/uL Summers # (Auto) 0.52 (0.11-0.59) K/uL Eos # (Auto) 0.00 (0.00-0.50) K/uL Baso # (Auto) 0.02 (0.00-0.20) K/uL Reticulocyte # 0.080 (0.020-0.100) 10^6/uL Immature Gran # (Auto) 0.03 (0.01-0.20) K/uL Absolute Nucleated RBC 0.02 (0.00-0.12) K/uL Nucleated RBC % (auto) 0.4 % Polychromasia 1+ Hypochromasia Present Tear Drop Cells 1+ Ovalocytes 1+ PT 11.9 (9.0-12.0) Seconds INR 1.1 (0.9-1.1) Sodium 139 (136-145) mmol/L Potassium 4.2 (3.5-5.1) mmol/L Chloride 105 (98-107) mmol/L Carbon Dioxide 27 (21-32) mmol/L Anion Gap 7 (3-11) BUN 20 (6-23) mg/dl Creatinine 0.86 (0.6-1.2) mg/dl Est Cr Clr Drug Dosing 54.8 ml/min Est GFR ( Amer) 76.1 ml/min Est GFR (Non-Af Amer) 65.6 ml/min BUN/Creatinine Ratio 23.3 H (10-20) Glucose 123 H (70-99(Fasting)) mg/dl Lactate (0.4-2.0) mmol/L Calcium 8.7 (8.6-10.3) mg/dl Magnesium 2.2 (1.7-2.4) mg/dl Iron 11 L (35-150) mcg/dl Unsaturated IBC 515 H (155-355) mcg/dl Transferrin 438 H (200-360) mg/dl Ferritin 3.8 L (8-388) ng/ml Total Bilirubin 0.4 (0.2-1.0) mg/dl AST 15 (13-39) U/L ALT 6 L (7-52) U/L Alkaline Phosphatase 68 (34-104) U/L Troponin I High Sens 80.4 H* (0-14) pg/ml B-Natriuretic Peptide 1031 H (0-100) pg/ml Total Protein 6.5 (6.0-8.3) gm/dl Albumin 3.8 (3.4-5.0) gm/dl Globulin 2.7 (2.5-4.0) gm/dl Albumin/Globulin Ratio 1.4 (0.9-2) Lipase 9 L (11-82) U/L Procalcitonin (0-0.5) ng/ml Adenovirus (PCR) Not Detected (NotDetected) B. pertussis DNA (PCR) Not Detected (NotDetected) B.parapertussis DNA PCR Not Detected (NotDetected) C. pneumoniae DNA (PCR) Not Detected (NotDetected) Coronavirus OC43 (PCR) Not Detected (NotDetected) Coronavirus HKU1 (PCR) Not Detected (NotDetected) Coronavirus 229E (PCR) Not Detected (NotDetected) SARS-CoV-2 (PCR) Not Detected (NotDetected) Coronavirus NL63 (PCR) Not Detected (NotDetected) Human Metapneumovir PCR Not Detected (NotDetected) Influenza Type A (PCR) Not Detected (NotDetected) Influenza Type B (PCR) Not Detected (NotDetected) M. pneumoniae (PCR) Not Detected (NotDetected) Parainfluenza 1 (PCR) Not Detected (NotDetected) Parainfluenza 2 (PCR) Not Detected (NotDetected) Parainfluenza 3 (PCR) Not Detected (NotDetected) Parainfluenza 4 (PCR) Not Detected (NotDetected) RSV (PCR) Not Detected (NotDetected) Entero/Rhino (PCR) Not Detected (NotDetected) Blood Type Antibody Screen Crossmatch 06/28/23 06/28/23 Range/Units 19:45 20:49 WBC (4.8-10.8) K/ul RBC (4.20-5.40) M/uL Hgb (12.0-16.0) g/dl Hct (37.0-47.0) % MCV (80.0-100.0) fL MCH (25.0-34.0) pg MCHC (32.0-36.0) g/dL RDW Std Deviation (36.4-46.3) fL RDW Coeff of Julia (11.5-14.5) % Plt Count (130-400) K/uL MPV (9.4-12.4) fL Immature Gran % (Auto) % Neut % (Auto) % Lymph % (Auto) % Summers % (Auto) % Eos % (Auto) % Baso % (Auto) % Reticulocyte % (Auto) (0.50-2.00) % Neut # (Auto) (1.40-6.50) K/uL Lymph # (Auto) (1.20-3.40) K/uL Summers # (Auto) (0.11-0.59) K/uL Eos # (Auto) (0.00-0.50) K/uL Baso # (Auto) (0.00-0.20) K/uL Reticulocyte # (0.020-0.100) 10^6/uL Immature Gran # (Auto) (0.01-0.20) K/uL Absolute Nucleated RBC (0.00-0.12) K/uL Nucleated RBC % (auto) % Polychromasia Hypochromasia Tear Drop Cells Ovalocytes PT (9.0-12.0) Seconds INR (0.9-1.1) Sodium (136-145) mmol/L Potassium (3.5-5.1) mmol/L Chloride (98-107) mmol/L Carbon Dioxide (21-32) mmol/L Anion Gap (3-11) BUN (6-23) mg/dl Creatinine (0.6-1.2) mg/dl Est Cr Clr Drug Dosing ml/min Est GFR ( Amer) ml/min Est GFR (Non-Af Amer) ml/min BUN/Creatinine Ratio (10-20) Glucose (70-99(Fasting)) mg/dl Lactate 0.9 (0.4-2.0) mmol/L Calcium (8.6-10.3) mg/dl Magnesium (1.7-2.4) mg/dl Iron (35-150) mcg/dl Unsaturated IBC (155-355) mcg/dl Transferrin (200-360) mg/dl Ferritin (8-388) ng/ml Total Bilirubin (0.2-1.0) mg/dl AST (13-39) U/L ALT (7-52) U/L Alkaline Phosphatase (34-104) U/L Troponin I High Sens 87.8 H* (0-14) pg/ml B-Natriuretic Peptide (0-100) pg/ml Total Protein (6.0-8.3) gm/dl Albumin (3.4-5.0) gm/dl Globulin (2.5-4.0) gm/dl Albumin/Globulin Ratio (0.9-2) Lipase (11-82) U/L Procalcitonin < 0.05 (0-0.5) ng/ml Adenovirus (PCR) (NotDetected) B. pertussis DNA (PCR) (NotDetected) B.parapertussis DNA PCR (NotDetected) C. pneumoniae DNA (PCR) (NotDetected) Coronavirus OC43 (PCR) (NotDetected) Coronavirus HKU1 (PCR) (NotDetected) Coronavirus 229E (PCR) (NotDetected) SARS-CoV-2 (PCR) (NotDetected) Coronavirus NL63 (PCR) (NotDetected) Human Metapneumovir PCR (NotDetected) Influenza Type A (PCR) (NotDetected) Influenza Type B (PCR) (NotDetected) M. pneumoniae (PCR) (NotDetected) Parainfluenza 1 (PCR) (NotDetected) Parainfluenza 2 (PCR) (NotDetected) Parainfluenza 3 (PCR) (NotDetected) Parainfluenza 4 (PCR) (NotDetected) RSV (PCR) (NotDetected) Entero/Rhino (PCR) (NotDetected) Blood Type A Positive Antibody Screen NEGATIVE Crossmatch See Detail Administered Medications Discontinued Medications Albuterol (Albuterol 0.083% Nebu Soln 3 Ml Vial) 2.5 mg NEB NOW STA; Protocol Stop: 06/28/23 21:19 Last Admin: 06/28/23 21:31 Dose: 2.5 mg Documented By: TON Furosemide (Furosemide 40 Mg/4 Ml Vial) 40 mg IV ONE ONE Stop: 06/28/23 20:11 Last Admin: 06/28/23 20:33 Dose: 40 mg Documented By: TON Acetaminophen (Ofirmev) 1,000 mg in 100 mls @ 400 mls/hr IV NOW STA Stop: 06/28/23 19:44 Last Infusion: 06/28/23 20:05 Dose: Infused Documented By: Admin: 06/28/23 19:41 Dose: 400 mls/hr Documented By: TON Famotidine (Pepcid 20mg Iv Push) 20 mg in 5 mls @ 2.5 mls/min IV NOW STA Stop: 06/28/23 19:31 Last Admin: 06/28/23 19:41 Dose: 2.5 mls/min Documented By: TON Ioversol (Optiray 320 500ml) 82 ml IV ONCE ONE Stop: 06/28/23 20:22 Last Admin: 06/28/23 20:22 Dose: 82 ml Documented By: DANITA Ondansetron HCl (Ondansetron Inj 2 Mg/Ml 2 Ml Vial) 4 mg IV NOW STA Stop: 06/28/23 19:31 Last Admin: 06/28/23 19:41 Dose: 4 mg Documented By: TON Imaging Data Radiologist's Impression: Chest X-Ray 06/28/23 17:52 XR chest 1V portable HISTORY: 78 years-old Female weakness acute weakness COMPARISON: 01/11/2023 TECHNIQUE: AP view the chest FINDINGS: Cardiac silhouette is enlarged. Left subclavian pacer/AICD. Atherosclerosis of the aorta. Pulmonary vascular congestion. No pneumothorax pleural effusion or airspace consolidation. Bones appear grossly intact. IMPRESSION: Cardiomegaly with pulmonary vascular congestion. ACT 112: Negative or not required by law. The above report was generated using voice recognition software. It may contain grammatical, syntax or spelling errors. Electronically signed by: Gurdeep Claros M.D. 06/28/2023 6:39 PM Abdomen/Pelvis CT 06/28/23 19:29 Exam(s): CT ABDOMEN + PELVIS With Contrast IV Amt: 82 ml optiray 320 EXAM: CT Abdomen and Pelvis With Intravenous Contrast CLINICAL HISTORY: Reason for exam: anemia, weakness, nausea. TECHNIQUE: Axial computed tomography images of the abdomen and pelvis with intravenous contrast. CTDI is 26.31 mGy and DLP is 1139 mGy-cm. Automated exposure control was utilized for the study. A dose lowering technique was utilized adhering to the principles of ALARA. CONTRAST: Patient received 82 ml optiray 320 of IV contrast COMPARISON: CT abdomen and pelvis January 12, 2023. FINDINGS: Lung bases: Unremarkable. No mass. No consolidation. ABDOMEN: Liver: Unremarkable. No mass. Gallbladder and bile ducts: Cholecystectomy. No ductal dilation. Pancreas: Unremarkable. No mass. No ductal dilation. Spleen: Unremarkable. No splenomegaly. Adrenals: Unremarkable. No mass. Kidneys and ureters: Nonobstructing 5 mm RIGHT mid pole renal calculus. Renal cysts. Stomach and bowel: Diverticulosis, without acute diverticulitis. No small bowel obstruction. No free intraperitoneal air. PELVIS: Appendix: No findings to suggest acute appendicitis. Bladder: Unremarkable. No mass. Reproductive: Unremarkable as visualized. ABDOMEN and PELVIS: Intraperitoneal space: Unremarkable. No free air. No significant fluid collection. Bones/joints: Degenerative changes of the spine. No acute fracture. No dislocation. Soft tissues: Unremarkable. Vasculature: Infrarenal abdominal aortic aneurysm, measures 3.0 cm. Atherosclerotic changes of the aorta. Lymph nodes: Unremarkable. No enlarged lymph nodes. Tubes, lines and devices: Pacemaker leads. IMPRESSION: 1. Infrarenal abdominal aortic aneurysm, measures 3.0 cm. 2. Cholecystectomy. 3. Nonobstructing 5 mm RIGHT mid pole renal calculus. 4. Diverticulosis, without acute diverticulitis. No small bowel obstruction. No free intraperitoneal air. Electronically signed by: Sukhdev Callahan MD 06/28/23 20:[address] 06/28/23 19:29 Exam(s): CT HEAD Without Contrast EXAM: CT Head Without Intravenous Contrast CLINICAL HISTORY: Reason for exam: headache. TECHNIQUE: Axial computed tomography images of the head/brain without intravenous contrast. CTDI is 36 mGy and DLP is 546.36 mGy-cm. Automated exposure control was utilized for the study. A dose lowering technique was utilized adhering to the principles of ALARA. COMPARISON: No relevant prior studies available. FINDINGS: No acute intracranial hemorrhage. No midline shift or mass effect. The territorial ramirez-white matter differentiation is maintained throughout. Age-related cerebral volume loss. Periventricular and subcortical white matter hypoattenuation, consistent with chronic microangiopathy. The visualized orbits appear grossly unremarkable. The calvarium is intact. The visualized paranasal sinuses and mastoid air cells are grossly clear. IMPRESSION: No acute intracranial hemorrhage, midline shift, or mass effect. Electronically signed by: Sukhdev Callahan MD 06/28/23 20:40 PM Discharge Plan Visit Data Chief Complaint: Illness Stated Complaint: NAUSEA, VOMITING COUGH, HYPOXIA ED Provider: Ming Felton Discharge Problem: CHF exacerbation, Hypoxia, Symptomatic anemia Discharge Problem: CHF exacerbation Qualifiers: Heart failure type: unspecified Qualified Code(s): I50.9 - Heart failure, unspecified
[2023-06-28 18:36] LABS: Hemoglobin 6.8 g/dl (12.0-16.0); Mean Corpuscular Hemoglobin 21.2 pg (25.0-34.0); Mean Corpuscular Hgb Conc 28.3 g/dL (32.0-36.0); Mean Corpuscular Volume 74.8 fL (80.0-100.0); Mean Platelet Volume 9.9 fL (9.4-12.4); Nucleated RBC # (auto) 0.02 K/uL (0.00-0.12); Nucleated RBC % (auto) 0.4 %; Platelet Count 285 K/uL (130-400); RDW Coefficient of Variation 18.3 % (11.5-14.5); RDW Standard Deviation 48.5 fL (36.4-46.3); Red Blood Count 3.21 M/uL (4.20-5.40); White Blood Count 4.54 K/ul (4.8-10.8)
--- NOTE | 2023-06-28 18:41 | XRay Report ---
XR chest 1V portable HISTORY: 78 years-old Female weakness acute weakness COMPARISON: 01/11/2023 TECHNIQUE: AP view the chest FINDINGS: Cardiac silhouette is enlarged. Left subclavian pacer/AICD. Atherosclerosis of the aorta. Pulmonary v ascular congestion. No pneumothorax pleural effusion or airspace consolidation. Bones appear grossly intact. IMPRESSION: Cardiomegaly with pulmonary vascular congestion. ACT 112: Negative or not required by law. The above report was generated using voice recognition software. It may contain grammatical, syntax o r spelling errors. Electronically signed by: Gurdeep Claros M.D. 06/28/2023 6:39 PM
[2023-06-28 18:45] LABS: Reticulocyte % 2.56 % (0.50-2.00)
[2023-06-28 18:56] LABS: Basophils # (auto) 0.02 K/uL (0.00-0.20); Basophils % (auto) 0.4 %; Hypochromasia Present; Immature Granulocytes # (auto) 0.03 K/uL (0.01-0.20); Immature Granulocytes % (auto) 0.7 %; Lymphocytes # (auto) 0.53 K/uL (1.20-3.40); Lymphocytes % (auto) 11.7 %; Monocytes # (auto) 0.52 K/uL (0.11-0.59); Monocytes % (auto) 11.5 %; Neutrophils # (auto) 3.44 K/uL (1.40-6.50); Neutrophils % (auto) 75.7 %; Ovalocytes 1+; Polychromasia 1+; Tear Drop Cells 1+
[2023-06-28 19:05] LABS: Albumin Globulin Ratio 1.4 (0.9-2); Albumin Level 3.8 gm/dl (3.4-5.0); BUN Creatinine Ratio 23.3 (10-20); Bilirubin,Total 0.4 mg/dl (0.2-1.0); Calcium 8.7 mg/dl (8.6-10.3); Creatinine Clr Calc Pharmacy 54.8 ml/min; Est GFR (African American) 76.1 ml/min; Est GFR (Non-African American) 65.6 ml/min; Globulin 2.7 gm/dl (2.5-4.0); Magnesium 2.2 mg/dl (1.7-2.4); Potassium 4.2 mmol/L (3.5-5.1); Total Protein 6.5 gm/dl (6.0-8.3)
[2023-06-28 19:14] LABS: Adenovirus PCR Not Detected (NotDetected); Bordetella parapertussis PCR Not Detected (NotDetected); Bordetella pertussis PCR Not Detected (NotDetected); Chlamydia pneumoniae PCR Not Detected (NotDetected); Coronavirus 229E PCR Not Detected (NotDetected); Coronavirus CoV-2 (COVID19)PCR Not Detected (NotDetected); Coronavirus HKU1 PCR Not Detected (NotDetected); Coronavirus NL63 PCR Not Detected (NotDetected); Coronavirus OC43PCR Not Detected (NotDetected); Human Metapneumovirus PCR Not Detected (NotDetected); Influenza A PCR Not Detected (NotDetected); Influenza B PCR Not Detected (NotDetected); Mycoplasma pneumoniae PCR Not Detected (NotDetected); Parainfluenza Virus 1 PCR Not Detected (NotDetected); Parainfluenza Virus 2 PCR Not Detected (NotDetected); Parainfluenza Virus 3 PCR Not Detected (NotDetected); Parainfluenza Virus 4 PCR Not Detected (NotDetected); Respiratory Syncytial VirusPCR Not Detected (NotDetected); Rhinovirus/Enterovirus PCR Not Detected (NotDetected)
[2023-06-28] MEDS ORDERED: SODIUM CHLORIDE 0.9% 250 ML IV PRN (19:14)
[2023-06-28 19:20] LABS: Troponin I High Sensitivity 80.4 pg/ml (0-14)
[2023-06-28 19:25] LABS: INR 1.1 (0.9-1.1); Prothrombin Time 11.9 Seconds (9.0-12.0)
[2023-06-28] MEDS: FAMOTIDINE 20MG IV PUSH 20 MG/5 ML SYR IV STA (19:41)
[2023-06-28] MEDS: ONDANSETRON INJ 2 MG/ML 2 ML VIAL IV STA (19:41)
[2023-06-28] MEDS: ACETAMINOPHEN 1,000 MG/100 ML VIAL IV STA (19:41)
[2023-06-28 20:07] LABS: Ferritin 3.8 ng/ml (8-388)
[2023-06-28 20:20] LABS: Appearance Urine Clear (Clear); Bilirubin Urine Negative (Negative); Blood Urine Negative (Negative); Color Urine Yellow; Epithelial Cell Urine Auto >30 /lpf (0-5); Glucose Urine UA Negative (Negative); Ketones Urine Negative (Negative); Leukocyte Esterase Urine Negative (Negative); Nitrite Urine Negative (Negative); Protein Urine Trace (Negative); RBC Urine Automated 0-4 /hpf (0-4); Specific Gravity Urine 1.012 (1.000-1.030); Urobilinogen Urine Negative (Negative)
[2023-06-28] MEDS: OPTIRAY 320 500ml IV ONE (20:22)
[2023-06-28] MEDS: FUROSEMIDE 40 MG/4 ML VIAL IV ONE (20:33)
[2023-06-28 20:39] LABS: Bacteria Urine Automated 1+ (Negative)
--- NOTE | 2023-06-28 20:41 | CT Scan Report ---
Exam(s): CT HEAD Without Contrast EXAM: CT Head Without Intravenous Contrast CLINICAL HISTORY: Reason for exam: headache. TECHNIQUE: Axial computed tomography images of the head/brain without intravenous contrast. CTDI is 36 mGy and DLP is 546.36 mGy-cm. Automated exposure control was utilized for the study. A dose lowering technique was utilized adhering to the principles of ALARA. COMPARISON: No relevant prior studies available. FINDINGS: No acute intracranial hemorrhage. No midline shift or mass effect. The territorial ramirez-white matter differentiation is maintained throughout. Age-related cerebral volume loss. Periventricular and subcortical white matter hypoattenuation, consistent with chronic microangiopathy. The visualized orbits appear grossly unremarkable. The calvarium is intact. The visualized paranasal sinuses and mastoid air cells are grossly clear. IMPRESSION: No acute intracranial hemorrhage, midline shift, or mass effect. Electronically signed by: Sukhdev Callahan MD 06/28/23 20:40 PM
--- NOTE | 2023-06-28 20:43 | CT Scan Report ---
Exam(s): CT ABDOMEN + PELVIS With Contrast IV Amt: 82 ml optiray 320 EXAM: CT Abdomen and Pelvis With Intravenous Contrast CLINICAL HISTORY: Reason for exam: anemia, weakness, nausea. TECHNIQUE: Axial computed tomography images of the abdomen and pelvis with intravenous contrast. CTDI is 26.31 mGy and DLP is 1139 mGy-cm. Automated exposure control was utilized for the study. A dose lowering technique was utilized adhering to the principles of ALARA. CONTRAST: Patient received 82 ml optiray 320 of IV contrast COMPARISON: CT abdomen and pelvis January 12, 2023. FINDINGS: Lung bases: Unremarkable. No mass. No consolidation. ABDOMEN: Liver: Unremarkable. No mass. Gallbladder and bile ducts: Cholecystectomy. No ductal dilation. Pancreas: Unremarkable. No mass. No ductal dilation. Spleen: Unremarkable. No splenomegaly. Adrenals: Unremarkable. No mass. Kidneys and ureters: Nonobstructing 5 mm RIGHT mid pole renal calculus. Renal cysts. Stomach and bowel: Diverticulosis, without acute diverticulitis. No small bowel obstruction. No free intraperitoneal air. PELVIS: Appendix: No findings to suggest acute appendicitis. Bladder: Unremarkable. No mass. Reproductive: Unremarkable as visualized. ABDOMEN and PELVIS: Intraperitoneal space: Unremarkable. No free air. No significant fluid collection. Bones/joints: Degenerative changes of the spine. No acute fracture. No dislocation. Soft tissues: Unremarkable. Vasculature: Infrarenal abdominal aortic aneurysm, measures 3.0 cm. Atherosclerotic changes of the aorta. Lymph nodes: Unremarkable. No enlarged lymph nodes. Tubes, lines and devices: Pacemaker leads. IMPRESSION: 1. Infrarenal abdominal aortic aneurysm, measures 3.0 cm. 2. Cholecystectomy. 3. Nonobstructing 5 mm RIGHT mid pole renal calculus. 4. Diverticulosis, without acute diverticulitis. No small bowel obstruction. No free intraperitoneal air. Electronically signed by: Sukhdev Clalahan MD 06/28/23 20:42 PM
[2023-06-28] MEDS: ALBUTEROL 0.083% NEBU SOLN 3 ML VIAL NEB STA (21:31)
--- NOTE | 2023-06-28 21:31 | Communication Note ---
Date of Service: June 28, 2023 HOSPITALIST ATTENDING ADDENDUM: 78 yo smoker with chronic anemia who presents with lightheadedness and a Hb 6.8. She denies dark stool or blood per rectum and no other signs of bleeding. She appears to have iron deficiency with an elevated reticulocyte count. She is also reporting significant weight gain of "25 lbs in one week." She reports exercise intolerance, now only able to walk "3 steps" before being short of breath. She has a h/o ischemic cardiomyopathy with a preserved EF on echo performed last fall when she was previously admitted. She reports cough, fevers and chills for the past few days and is also now requiring oxygen which is new for her. In fact, she does have oxygen she is supposed to use at home but "I'm too lazy to put it on." Per RN,her son reportedly took her oxycodone because she is taking them too frequently. He was also reportedly upset because the patient is smoking 1 ppd of cigarettes. She reports smoking only 2 per day. She is hemodynamically stable and afebrile at this time. She is WNWD. She has diffuse wheezing in all lung gutierrez on exam and no conversational dyspnea or increased respiratory effort. Cardiac exam reveals S1/2 heard without murmurs, gallops or rubs. She is in a regular rate and rhythm and there is only trace swelling of her lower extremities without pitting edema. Abdomen is soft NTND. She is mentating clearly. BNP is elevated >1000, CXR reveals some pulmonary vascular congestion and the patient reports weight gain. Outpatient record review shows that in fact her weight has been trending up 63kg (Apr 13), 68 kg (Jun 14) and now 77kg today (bed weight and may not be accurate. She does take Lasix at home and received an additional 40mg IV of Lasix this evening with her 1 unit of blood ordered. Hb has fallen 2 grams since last check a couple of months ago. She appears to have iron deficiency. Possible COPD exacerbation present given the wheezing, known smoking and reports or new respiratory symptoms. Agree with holding steroids until we can rule out GI bleed. Cont with scheduled nebs and azithromycin. Hold her apixaban. Per inpatient record review, she was noted to have a normal H/H until September 2022 when she was placed on apixaban for acute RLE DVT. She presented again in November 2022 for possible stroke and was administered TN kinase and observed in the ICU. She was given the thrombolytic after H&P states that she had not started her apixaban due to an outpatient PCP office miscommunication. So when she was discharged on 12/19/22, she left with two new blood thinners, including apixaban and clopidogrel (for secondary stroke prevention). Anemia has worsened ever since this time. She did require 1 unit of blood in Dec 2022 during an admission, and GI was consulted as hematochezia was also present. An outpatient colonoscopy was recommended but this didn't happen. Overall, her clinical picture is consistent with a symptomatic chronic blood loss anemia related to anticoagulation and antiplatelet therapy. Further investigation with endoscopy either inpatient or outpatient would be recommended. She may also have some fluid overload but this is not significant on exam and would repeat a standing weight in the morning on her with standing weights only moving forward. Would place her on iron supplementation at discharge, and she is getting an additional iron load with her blood this evening. Cont to hold blood thinners at this time. Smoking cessation is strongly recommended. I spent a total [id number] coordinating, documenting, and providing care for this patient excluding time spent in the performance of separately billed services. DO Doc
--- NOTE | 2023-06-28 21:41 | History & Physical Report ---
Date of Service June 28, 2023 Assessment & Plan (1) Symptomatic anemia: (2) Iron deficiency anemia: Plan: Possible GI bleed Patient 78-year-old female with PMH HTN, HLD, diet-controlled DM II, CKD III, CVA, CAD s/p stent, history of cardiomyopathy, s/p ICD, seizure disorder, paroxysmal atrial fibrillation, anticoagulated on Eliquis, history of DVT 09/2022, COPD, tobacco use, and others listed below presented to ER with complaint of generalized weakness x 1 week. Denies melena or hematochezia. Known iron deficiency anemia on outpatient labs in 02/2023. In ER afebrile, hypoxic on RA at 88% up to 99% on 4L via NC, other vitals stable. Hgb: 6.8 (was 8.4 on 03/15/23 and Hgb 12 on 10/05/22 prior to starting Eliquis) CT abd/pelvis: Infrarenal abdominal aortic aneurysm, measures 3.0 cm. Cholecystectomy. Nonobstructing 5 mm RIGHT mid pole renal calculus. Diverticulosis, without acute diverticulitis. No small bowel obstruction. No free intraperitoneal air. In ER given Pepcid Obtain Hemoccult stool Hold home oral Protonix and start IV protonix Last colonoscopy 2012. (Was recommended last year to have outpatient colonoscopy but was lost to follow up) Clear liquid diet NPO midnight In ER 1 Unit PRBC ordered. Transfuse and repeat H&H to determine further transfusion needs Hold home Eliquis and Plavix CBC, BMP in am GI consult (3) COPD exacerbation: (4) Acute hypoxic respiratory failure: Plan: In ER afebrile, hypoxic on RA at 88% up to 99% on 4L via NC. CXR: Cardiomegaly with pulmonary vascular congestion Negative biofire respiratory panel. WBC: 4.5. Lactate WNL, procalcitonin: <0.05 Duonebs Supplemental oxygen, goal O2 89-92% Holding on steroids currently with possible GI bleed Rocephin currently as also covering for possible UTI Continue home inhaler (5) Ischemic cardiomyopathy: (6) History of implantable cardioverter-defibrillator (ICD) placement: (7) Elevated troponin: (8) CAD (coronary artery disease): Plan: History ischemic cardiomyopathy. S/P ICD. S/P Stent 01/08/2023 echo: EF: 65-70%, mild LVH Troponin: 80-->87. EKG paced rhythm. Denies CP. Possible demand ischemia Trend troponin Echo Continue metoprolol succinate, atorvastatin If uptrending troponins consider cardiology consult (9) Abnormal finding on urinalysis: Plan: UA: >30 epithelial, 1+bacteria Patient denied urinary frequency, hematuria, dysuria Urine culture pending Covered with Rocephin for now (10) Paroxysmal atrial fibrillation: Plan: Anticoagulated on Eliquis Hold Eliquis currently with possible GI bleed Continue metoprolol succinate (11) HTN (hypertension): Plan: Stable Continue lisinopril, metoprolol succinate (12) Hyperlipidemia: Plan: Continue atorvastatin (13) History of CVA (cerebrovascular accident): Plan: Continue atorvastatin. Hold Plavix with possible GI bleed (14) CKD (chronic kidney disease), stage III: Plan: Cr: 0.8. Was 1.5 on 04/18/2023, history of prior MARIELLA, recent baseline several months ago was ~1.0-1.2 Monitor renal functions (15) Diabetes mellitus, type II: Plan: A1c: 5.8 on 03/02/2023 Diet controlled Monitor BSG on a.m. labs (16) Seizure disorder: Plan: Denies recent seizure-like activity Continue Keppra (17) History of DVT (deep vein thrombosis): Plan: History lower extremity DVT 09/2022 Currently holding Eliquis secondary to possible GI bleed (18) Tobacco use: Plan: Reported to be trying to cut back Denies nicotine patch Encouraged smoking cessation DVT Prophylaxis SCDs DNR/DNI as per discussion with pt Follows with Dr Ennis for routine care Pt was seen and care coordinated with Dr Roach. See addendum I spent a total of 80 minutes reviewing notes, outpatient records, labs, medication, coordinating, documenting and providing care for this patient excluding time spent in the performance of separately billed services. History of Present Illness Chief Complaint: generalized weakness Primary Care Provider: Roman Ennis MD Patient 78-year-old female with PMH HTN, HLD, diet-controlled DM II, CKD III, CVA, CAD s/p stent, history of cardiomyopathy, s/p ICD, seizure disorder, paroxysmal atrial fibrillation, anticoagulated on Eliquis, history of DVT 09/2022, COPD, tobacco use, and others listed below presented to ER with complaint of generalized weakness x 1 week. History obtained from patient as well as outpatient and inpatient chart review. Patient states for the past week has had generalized weakness. States can only walk a few steps without becoming quickly fatigued. Patient also reports increased shortness of breath past couple days. Patient states past couple days has had productive cough but is unable to describe sputum, and worsening exertional dyspnea. Feeling lightheaded with ambulating. Denies rhinorrhea. Admits to still smoking but states is trying to cut back. Since feeling SOB states only smoked 2 cigarettes yesterday. She states she has home oxygen to use as needed but doesn't use it. She also reports has gained weight. She states weighed self at home 2 days ago and was 167 pounds and she thinks she weighed around 150 pounds a couple of months ago. Does not weigh herself regularly. States some decreased appetite past couple of days. Denies fever/chills, diaphoresis, N/V/D/C, melena, hematochezia, syncope, vision changes, neck pain, CP, orthopnea, palpitations, hemoptysis, sore throat, otalgia, rhinorrhea, abdominal pain, paresthesias, weakness, extremity weakness, extremity edema, rashes, dysuria, hematuria, urinary frequency. Allergies Allergy/AdvReac Type Severity Reaction Status Date / Time NSAIDS (Non-Steroidal AdvReac Severe GI ISSUES Verified 06/28/23 18:11 Anti-Inflamma Bgykzgy-ICL-RmK Reductase AdvReac Severe LIVER Verified 06/28/23 18:11 Inhibitor FUNCTION [Vunaeuz-Xgd-Ala Reductase ELEVATES Inhibitor] isosorbide AdvReac Intermediate VOMIT/HEADA Verified 06/28/23 18:11 CARLOS tramadol AdvReac Intermediate VOMITING Verified 06/28/23 18:11 Home Medications Medication Instructions Recorded Confirmed Type nitroglycerin 0.4 mg sublingual 0.4 mg sublingual DIRECTED PRN 03/30/17 06/28/23 History tablet Chest Pain #0 BTLS pantoprazole 40 mg tablet,delayed 40 mg PO DAILYBB #30 tabs 03/30/17 06/28/23 History release oxycodone 5 mg tablet 5 mg PO Q6H PRN Severe Pain (Scale 08/16/20 06/28/23 History Score 7-10) atorvastatin 40 mg tablet 20 mg PO DAILY 10/05/22 06/28/23 History gabapentin 300 mg capsule See Rx Instructions .Route .COMPLEX 12/17/22 06/28/23 History ondansetron HCl 4 mg tablet 4 mg PO Q8H PRN Nausea 12/17/22 06/28/23 History umeclidinium 62.5 mcg-vilanterol 1 inh inhalation DAILY 12/17/22 06/28/23 History 25 mcg/actuation powdr for inhalation (Anoro Ellipta) apixaban 5 mg tablet (Eliquis) 5 mg PO BID #60 tabs 12/19/22 06/28/23 Rx clopidogrel 75 mg tablet 75 mg PO QAM #30 tabs 12/19/22 06/28/23 Rx levetiracetam 500 mg tablet 500 mg PO AMHS 01/11/23 06/28/23 History cyanocobalamin (vitamin B-12) 1,000 mcg PO QAM 06/28/23 06/28/23 History 1,000 mcg tablet (Vitamin B-12) furosemide 40 mg tablet See Rx Instructions .Route .COMPLEX 06/28/23 06/28/23 History lisinopril 20 mg tablet 20 mg PO QAM 06/28/23 06/28/23 History metoprolol succinate 25 mg 25 mg PO BID 06/28/23 06/28/23 History tablet,extended release 24 hr trazodone 50 mg tablet 25 mg PO HS 06/28/23 06/28/23 History Past Med/Surg History Medical History History of DVT (deep vein thrombosis) Seizure disorder Paroxysmal atrial fibrillation Diabetes mellitus, type II History of CVA (cerebrovascular accident) Chronic pain Respiratory acidosis Elevated troponin Anxiety Chronic hepatitis C without hepatic coma CKD (chronic kidney disease), stage III COPD, group C, by GOLD 2017 classification Acute anterior wall OK LBBB (left bundle branch block) Migraine GERD (gastroesophageal reflux disease) OA (osteoarthritis) Hyperlipidemia HTN (hypertension) Ischemic cardiomyopathy CAD (coronary artery disease) "OK 2006. S/P PCI/Stent RCA" Hypoxia H/O cardiac pacemaker Surgical History H/O release of tendon History of carpal tunnel surgery H/O: hysterectomy Hx of cataract surgery S/P cardiac cath S/P cholecystectomy History of implantable cardioverter-defibrillator (ICD) placement Family History Father , age 81 of lung cancer Prostate cancer Heart disease Thyroid disorder Lung cancer Mother , age 80 with COPD Cancer Cervical Coronary heart disease s/p CABG Diabetes COPD (chronic obstructive pulmonary disease) Social History Smoking Status: Current every day smoker Tobacco Type: Cigarettes Age Started Using Tobacco: 23; packs per day: 0.5; Cigarettes Per Day: 4; Second Hand Exposure: No; Do You Dip or Chew Tobacco: No; Hx Alcohol Use: No Hx Substance Use: No Preferred Language: Slovak Communication Ability: Effective Proposal Development Manager Required: No Beliefs That Will Affect Care: None Current Living Situation: Alone current occupational status: retired 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 Other Information That Helps Us Care for You: No Feels Safe at Home: Yes Safety Concerns: Feels Safe At This Time Assistive Devices: Cane and Glasses Review of Systems Review of Systems: All systems reviewed & are unremarkable except as noted in HPI & below Physical Exam Physical Exam: General: no acute distress, WDWN Head: normocephalic, atraumatic Eyes: conjunctiva non-injected, pale conjunctiva, anicteric ENT: normal inspection external ears, nose, mucous membranes moist Neck: supple, trachea midline, non-tender Lungs: clear, no respiratory distress on 3L via NC with O2 sat 99%, +expiratory wheezing, no rhonchi/rales noted CV: RRR, no murmur, 1+ pretibial edema Abd: normal BS, soft, non-tender Ext: no cyanosis, no calf tenderness Neuro: A&O x 3, no focal deficits noted, normal affect Skin: pale, warm, dry Results & Data Results & Data Vital Signs (Past 12 Hours) Vital Signs Temp Pulse Resp BP Pulse Ox O2 Del Method O2 Flow Rate 06/28/23 21:30 37.0 C 83 16 124/74 98 06/28/23 21:15 37.3 C 79 16 121/69 97 06/28/23 21:00 85 23 98 06/28/23 21:00 122/70 06/28/23 20:58 37.0 C 83 18 111/68 97 06/28/23 18:01 86 12 99 Nasal Cannula 4 06/28/23 17:50 87 06/28/23 17:45 37.3 C 91 H 15 127/71 88 L Room Air Laboratory Results Short CBC 06/28/23 Range/Units 18:00 WBC 4.54 L (4.8-10.8) K/ul Hgb 6.8 L* (12.0-16.0) g/dl Hct 24.0 L (37.0-47.0) % Plt Count 285 (130-400) K/uL BMP 06/28/23 18:00 Sodium 139 Potassium 4.2 Chloride 105 Carbon Dioxide 27 BUN 20 Creatinine 0.86 Glucose 123 H Calcium 8.7 Liver Function 06/28/23 Range/Units 18:00 Total Bilirubin 0.4 (0.2-1.0) mg/dl AST 15 (13-39) U/L ALT 6 L (7-52) U/L Alkaline Phosphatase 68 (34-104) U/L Albumin 3.8 (3.4-5.0) gm/dl Urine 06/28/23 Range/Units Unknown Urine Color Yellow Urine Appearance Clear (Clear) Urine pH 6.0 (4.5-7.5) Ur Specific [place] 1.012 (1.000-1.030) Urine Protein Trace H (Negative) Urine Glucose (UA) Negative (Negative) Diagnostic Findings Chest X-Ray 06/28/23 17:52 XR chest 1V portable HISTORY: 78 years-old Female weakness acute weakness COMPARISON: 01/11/2023 TECHNIQUE: AP view the chest FINDINGS: Cardiac silhouette is enlarged. Left subclavian pacer/AICD. Atherosclerosis of the aorta. Pulmonary vascular congestion. No pneumothorax pleural effusion or airspace consolidation. Bones appear grossly intact. IMPRESSION: Cardiomegaly with pulmonary vascular congestion. ACT 112: Negative or not required by law. The above report was generated using voice recognition software. It may contain grammatical, syntax or spelling errors. Electronically signed by: Gurdeep Claros M.D. 06/28/2023 6:39 PM Abdomen/Pelvis CT 06/28/23 19:29 Exam(s): CT ABDOMEN + PELVIS With Contrast IV Amt: 82 ml optiray 320 EXAM: CT Abdomen and Pelvis With Intravenous Contrast CLINICAL HISTORY: Reason for exam: anemia, weakness, nausea. TECHNIQUE: Axial computed tomography images of the abdomen and pelvis with intravenous contrast. CTDI is 26.31 mGy and DLP is 1139 mGy-cm. Automated exposure control was utilized for the study. A dose lowering technique was utilized adhering to the principles of ALARA. CONTRAST: Patient received 82 ml optiray 320 of IV contrast COMPARISON: CT abdomen and pelvis January 12, 2023. FINDINGS: Lung bases: Unremarkable. No mass. No consolidation. ABDOMEN: Liver: Unremarkable. No mass. Gallbladder and bile ducts: Cholecystectomy. No ductal dilation. Pancreas: Unremarkable. No mass. No ductal dilation. Spleen: Unremarkable. No splenomegaly. Adrenals: Unremarkable. No mass. Kidneys and ureters: Nonobstructing 5 mm RIGHT mid pole renal calculus. Renal cysts. Stomach and bowel: Diverticulosis, without acute diverticulitis. No small bowel obstruction. No free intraperitoneal air. PELVIS: Appendix: No findings to suggest acute appendicitis. Bladder: Unremarkable. No mass. Reproductive: Unremarkable as visualized. ABDOMEN and PELVIS: Intraperitoneal space: Unremarkable. No free air. No significant fluid collection. Bones/joints: Degenerative changes of the spine. No acute fracture. No dislocation. Soft tissues: Unremarkable. Vasculature: Infrarenal abdominal aortic aneurysm, measures 3.0 cm. Atherosclerotic changes of the aorta. Lymph nodes: Unremarkable. No enlarged lymph nodes. Tubes, lines and devices: Pacemaker leads. IMPRESSION: 1. Infrarenal abdominal aortic aneurysm, measures 3.0 cm. 2. Cholecystectomy. 3. Nonobstructing 5 mm RIGHT mid pole renal calculus. 4. Diverticulosis, without acute diverticulitis. No small bowel obstruction. No free intraperitoneal air. Electronically signed by: Sukhdev Callahan MD 06/28/23 20:[address] 06/28/23 19:29 Exam(s): CT HEAD Without Contrast EXAM: CT Head Without Intravenous Contrast CLINICAL HISTORY: Reason for exam: headache. TECHNIQUE: Axial computed tomography images of the head/brain without intravenous contrast. CTDI is 36 mGy and DLP is 546.36 mGy-cm. Automated exposure control was utilized for the study. A dose lowering technique was utilized adhering to the principles of ALARA. COMPARISON: No relevant prior studies available. FINDINGS: No acute intracranial hemorrhage. No midline shift or mass effect. The territorial ramirez-white matter differentiation is maintained throughout. Age-related cerebral volume loss. Periventricular and subcortical white matter hypoattenuation, consistent with chronic microangiopathy. The visualized orbits appear grossly unremarkable. The calvarium is intact. The visualized paranasal sinuses and mastoid air cells are grossly clear. IMPRESSION: No acute intracranial hemorrhage, midline shift, or mass effect. Electronically signed by: Sukhdev Callahan MD 06/28/23 20:40 PM ECG Findings: + paced rhythm Code Status & VTE Plan VTE Prophylaxis Plan VTE Prophylaxis will be ordered: Yes Supervising Physician Co-Signing Physician Notes I have seen and examined the patient and have discussed the case with the provider above. I have reviewed the advanced practitioner's documentation, and I agree with, and take responsibility for that plan of care. 78 yo smoker with chronic anemia who presents with lightheadedness and a Hb 6.8. She denies dark stool or blood per rectum and no other signs of bleeding. She appears to have iron deficiency with an elevated reticulocyte count. She is also reporting significant weight gain of "25 lbs in one week." She reports exercise intolerance, now only able to walk "3 steps" before being short of breath. She has a h/o ischemic cardiomyopathy with a preserved EF on echo performed last fall when she was previously admitted. She reports cough, fevers and chills for the past few days and is also now requiring oxygen which is new for her. In fact, she does have oxygen she is supposed to use at home but "I'm too lazy to put it on." Per RN,her son reportedly took her oxycodone because she is taking them too frequently. He was also reportedly upset because the patient is smoking 1 ppd of cigarettes. She reports smoking only 2 per day. She is hemodynamically stable and afebrile at this time. She is WNWD. She has diffuse wheezing in all lung gutierrez on exam and no conversational dyspnea or increased respiratory effort. Cardiac exam reveals S1/2 heard without murmurs, gallops or rubs. She is in a regular rate and rhythm and there is only trace swelling of her lower extremities without pitting edema. Abdomen is soft NTND. She is mentating clearly. BNP is elevated >1000, CXR reveals some pulmonary vascular congestion and the patient reports weight gain. Outpatient record review shows that in fact her weight has been trending up 63kg (Apr 13), 68 kg (Jun 14) and now 77kg today (bed weight and may not be accurate. She does take Lasix at home and received an additional 40mg IV of Lasix this evening with her 1 unit of blood ordered. Hb has fallen 2 grams since last check a couple of months ago. She appears to have iron deficiency. Possible COPD exacerbation present given the wheezing, known smoking and reports or new respiratory symptoms. Agree with holding steroids until we can rule out GI bleed. Cont with scheduled nebs and azithromycin. Hold her apixaban. Per inpatient record review, she was noted to have a normal H/H until September 2022 when she was placed on apixaban for acute RLE D VT. She presented again in November 2022 for possible stroke and was administered TN kinase and observed in the ICU. She was given the thrombolytic after H&P states that she had not started her apixaban due to an outpatient PCP office miscommunication. So when she was discharged on 12/19/22, she left with two new blood thinners, including apixaban and clopidogrel (for secondary stroke prevention). Anemia has worsened ever since this time. She did require 1 unit of blood in Dec 2022 during an admission, and GI was consulted as hematochezia was also present. An outpatient colonoscopy was recommended but this didn't happen. Overall, her clinical picture is consistent with a symptomatic chronic blood loss anemia related to anticoagulation and antiplatelet therapy. Further investigation with endoscopy either inpatient or outpatient would be recommended. She may also have some fluid overload but this is not significant on exam and would repeat a standing weight in the morning on her with standing weights only moving forward. Would place her on iron supplementation at discharge, and she is getting an additional iron load with her blood this evening. Cont to hold blood thinners at this time. Smoking cessation is strongly recommended. I spent a total [id number] coordinating, documenting, and providing care for this patient excluding time spent in the performance of separately billed services. DO Doc
[2023-06-28] MEDS ORDERED: POLYETHYLENE (MIRALAX) 17 GM PACK PO PRN (22:03)
[2023-06-28] MEDS ORDERED: ACETAMINOPHEN 325 MG TAB PO PRN (22:03)
[2023-06-28] MEDS: AZITHROMYCIN 500 MG in DEXTROSE 5% 250 ML IV SCH (22:52)
[2023-06-28] MEDS: PANTOprazole 40 MG in SYRINGE 0 ML IV SCH (23:27)
[2023-06-28] MEDS: cefTRIAXone SODIUM 2,000 MG in DEXTROSE 5 % MINI-B 50 ML IV SCH (23:28)
[2023-06-29 03:08] LABS: Hematocrit (blood only) 25.4 % (37.0-47.0); Hemoglobin 7.6 g/dl (12.0-16.0); Mean Corpuscular Hemoglobin 22.6 pg (25.0-34.0); Mean Corpuscular Hgb Conc 29.9 g/dL (32.0-36.0); Mean Corpuscular Volume 75.6 fL (80.0-100.0); Mean Platelet Volume 10.2 fL (9.4-12.4); Nucleated RBC # (auto) 0.03 K/uL (0.00-0.12); Nucleated RBC % (auto) 0.6 %; Platelet Count 258 K/uL (130-400); RDW Coefficient of Variation 18.9 % (11.5-14.5); RDW Standard Deviation 51.3 fL (36.4-46.3); Red Blood Count 3.36 M/uL (4.20-5.40)
[2023-06-29 03:17] LABS: BUN Creatinine Ratio 20.2 (10-20); Calcium 8.5 mg/dl (8.6-10.3); Est GFR (African American) 64.2 ml/min; Est GFR (Non-African American) 55.4 ml/min; Potassium 3.9 mmol/L (3.5-5.1)
[2023-06-29 03:26] LABS: Troponin I High Sensitivity 94.9 pg/ml (0-14)
--- OUTSIDE RECORDS SUMMARY | 2023-06-29 05:25 | External Medical Summary | Summary of Care ---
Author Name Unknown Organization [facility] Address [address] [place] [address] Phone [phone] Care Team Providers Care Marketing Program Manager Name Role Phone Loli NORWOOD MD, Roman Barraza Primary Care Provider [phone] Reason for Referral * Evaluate & Treat - Unlimited Visits (Within 10 days (routine)) - Authorized Specialty Diagnoses / Procedures Referred By Xuan bey Referred To Contact HOME CARE / Home Care Diagnoses Pain of left hip Primary osteoarthritis of one hip, left Degeneration of lumbar intervertebral disc Lumbar radiculopathy Rosemarie Amanda MD [address] [place] [address] Referral ID Status Reason Start Date Expiration Date Visits Requested Visits Authorized [id number] Authorized Specialty Services Required [phone] Question Answer Referral Priority Within 10 days (routine) Where should this appointment be scheduled? Elaine Comments Documentation of Lelg-aj-Ysiw Encounter Addendum Patient Name: Radha Tong I certify that this patient is under my care and that I, or a nurse practitioner or physician's physician office assistant working with me, had a [id number] encounter that meets the physician [id number] encounter requirements with this patient on: 05/03/2023 The encounter with the patient was in whole, or in part, for the following medical condition, which is the primary reason for home health care (List medical condition): Gait dysfunction I certify that, based on my findings, the following services are medically necessary home health services: Physical Therapy To provide the following care/treatments: (All hospitalists not following the patient after discharge should complete this section): Core strengthening program, hip abductor and quad strengthening program, balance Primary Care Physician to follow home care plan of care after discharge: Yes My clinical findings support the need for the above services because: Patient was significant quad weakness and core weakness contributing to back pain and radiculopathy and gait dysfunction that increases risk of falls Further, I certify that my clinical findings support that this patient is homebound (i.e. Absences from home require considerable and taxing effort and are for medical reasons or holiness services or infrequently or of short duration when for other reason) because: Does not drive, inability to get out of the house for physical therapy on a frequent enough basis to see improvement Physician Signature: Date of Signature: Physician Printed Name: Rosemarie Amanda MD Reason for Visit * Reason Comments NEW PATIENT Left hip * Evaluate & Treat - Unlimited Visits (Within 30 days (routine)) - Authorized Specialty Diagnoses / Procedures Referred By Xuan bey Referred To Contact Orthopaedic Surgery / Orthopedics Diagnoses Hip pain, left Goyoluz Xuan Todd, [address] [place] [address] Referral ID Status Reason Start Date Expiration Date Visits Requested Visits Authorized [id number] Authorized Specialty Services Required 3 [phone] Encounter Details Date Type Department Care Team (Latest Contact Info) Description 05/03/2023 2:00 PM EST Office Visit Orthopaedics [facility] [address] [id number] Rosemarie Amanda MD [address] [place] [address] Pain of left hip*; Primary osteoarthritis of one hip, left; Degeneration of lumbar intervertebral disc; Lumbar radiculopathy Allergies Active Allergy Reactions Criticality Noted Date Comments Isosorbide Mononitrate 12/24/2007 Severe headaches Nsaids 05/29/2002 Tramadol Hcl Nausea/vomiting Low 01/09/2008 UGI distress documented as of this encounter (statuses as of 05/05/2023) Medications Medication Sig Dispensed Refills Start Date End Date Status Ventolin HFA 108 (90 Base) MCG/ACT Inhalation Aerosol Solution Inhale 2 Puffs by mouth every 4 hours as needed for Wheezing or Dyspnea. 54 g 1 04/21/2021 Active Additional Information Patient not taking.Reported on 04/04/2023 Cyanocobalamin 1000 MCG Oral Tablet (Cyanocobalamin) Take by mouth 1 Tablet in the morning. 100 Tablet 5 02/24/2022 Active Ondansetron HCl 4 MG Oral Tablet (Zofran)Indications :Nausea Take 1 Tablet by mouth every 8 hours as needed for Nausea. 20 Tablet 0 02/27/2023 Active Nitroglycerin 0.4 MG Sublingual Tablet Sublingual (Nitrostat)Indicati ons:ASCVD (arteriosclerotic cardiovascular disease),Chest pain, unspecified type DISSOLVE ONE TABLET UNDER THE TONGUE NEEDED FOR CHEST pain, maximum THREE doses 25 Tablet 5 03/01/2023 Active Apixaban 5 MG Oral Tablet (Eliquis) Take 1 Tablet by mouth 2 times a day. 60 Tablet 3 03/09/2023 Active Clopidogrel Bisulfate 75 MG Oral Tablet (Plavix) Take 1 Tablet by mouth in the morning. 30 Tablet 5 03/09/2023 Active Lisinopril 20 MG Oral Tablet (Prinivil)Indicatio ns:HTN, goal to be determined Take 1 Tablet by mouth in the morning. 90 Tablet 3 03/09/2023 Active Pantoprazole Sodium 40 MG Oral Tablet Delayed Release (Protonix)Indicatio ns:Abdominal pain, epigastric TAKE ONE TABLET BY MOUTH DAILY 30 MINUTES BEFORE FIRST meal of THE DAY 90 Tablet 3 03/09/2023 Active traZODone HCl 50 MG Oral Tablet (Desyrel) Take 0.5 Tablets by mouth at bedtime. 30 Tablet 5 03/09/2023 Active levETIRAcetam 500 MG Oral Tablet (Keppra) Take 1 Tablet by mouth in the morning and 1 Tablet before bedtime. 60 Tablet 6 03/09/2023 Active Atorvastatin Calcium 20 MG Oral Tablet (Lipitor) Take 1 Tablet by mouth in the morning. 90 Tablet 5 03/09/2023 Active Metoprolol Succinate ER 25 MG Oral Tablet Extended Release 24 Hour (toPROL XL) Take 1 Tablet by mouth in the morning and 1 Tablet before bedtime. 200 Tablet 5 03/13/2023 Active Furosemide 40 MG Oral Tablet (Lasix) Take 1 Tablet by mouth daily AND 0.5 Tablets daily at noon. 135 Tablet 3 03/23/2023 Active Anoro Ellipta 62.5-25 MCG/ACT Inhalation Aerosol Powder Breath Activated (umeclidinium-vilan terol) INHALE ONE PUFF EVERY DAY 180 Blister Dosing Unit 1 03/31/2023 Active Venlafaxine HCl ER 225 MG Oral Tablet Extended Release 24 Hour Take 1 Tablet by mouth in the morning. 0 Active hydrOXYzine HCl 25 MG Oral Tablet Take 1 Tablet by mouth 3 times a day as needed. 0 Active oxyCODONE HCl 5 MG Oral Tablet (Oxy IR)Indications:Media Librarian fernando pain syndrome Take 1 Tablet by mouth every 6 hours as needed (pain). 100 Tablet 0 04/12/2023 Active Gabapentin 300 MG Oral Capsule (Neurontin) Take 1 Capsule by mouth in the morning and 1 Capsule at noon and 1 Capsule before bedtime. 90 Capsule 11 03/09/2023 05/03/20 23 Discontinu ed(Refill) documented as of this encounter (statuses as of 05/05/2023) Active Problems Problem Noted Date Diagnosed Date Food insecurity 05/01/2023 Overview: [facility] Protocol Hip pain, left 04/28/2023 Atrial fibrillation 02/27/2023 Last Assessment & Plan: Eliquis 5mg BID Other disorders of phosphorus metabolism 023 Breakthrough seizure 02/27/2023 Hypertensive heart and kidne y disease with chronic combined systolic and diastolic congestive heart failure and stage 3 chronic kidney disease 02/20/2023 Last Assessment & Plan: Current Status : "Stable" for patient / At or near baseline Degree of Condition Awareness : Demonstrates very good awareness of condition, disease course, and prognosis "RED FLAG" HF Symptoms: Leg Swelling (Examples: "I can't wear certain socks or shoes", "My pants feel tight") Increased dyspnea on exertion (Example: "I can't walk to the kitchen or up the stairs") Increased shortness of breath at rest (Example: "I struggle to breathe even when watching TV") Current Heart Failure Classifications: With ordinary activity such as doing housework, yard work or shopping ([employer] [place] [employer] CLASS II) Diagnostic Review: Recent Labs Units 04/18/23 1114 03/15/23 0738 ESTIMATED GLOMERULAR FILTRATION RATE - [facility] mL/min 37* 54* HGB - [facility] g/dL -- 8.4* Medication Regimen: Beta Luna Therapy: Metoprolol Succinate (ER) BREANNE Inhibitor/ARB Therapy: Lisinopril Diuretic therapy: Lasix Self - Management Plan Double dose of Furosemide for 3 days Exacerbation Plan Anticipated IV Lasix dose: 80 mg BMP Pro-BNP Chronic combined systolic an d diastolic congestive heart failure 01/04/2023 Monoplegia, upper limb, nond ominant side S/P CVA (cerebrovascular acc) 01/04/2023 Right leg DVT 01/04/2023 Infrarenal abdominal aortic aneurysm (AAA) witho ut rupture 10/14/2022 Type 2 diabetes mellitus wit h diabetic chronic kidney disease 10/14/2022 Last Assessment & Plan: DM2 - diet controlled CKD - 3b, GFR 37 Cigarette smoker 08/03/2022 Type 2 diabetes mellitus wit h hemoglobin A1c goal of less than 8.0% 06/02/2022 Benign hypertension with CKD (chronic kidney disease) stage III 06/02/2022 Last Assessment & Plan: HTN - Prinivil 20mg daily, Metoprolol 25mg BID Abdominal aortic aneurysm (AAA) without rupture 09/09/2020 History of 2019 novel coronavirus disease (COVID -19) 07/29/2020 Carpal tunnel syndrome, bilateral 12/27/2019 Trigger ring finger of right hand 12/27/2019 Trigger ring finger of left hand 12/27/2019 Essential hypertension with goal blood pressure less than 140/90 07/23/2019 COPD, group C, by GOLD 2017 classification 06/03 Overview: Per COPD GOLD Classification Last Assessment & Plan: Current Status : "Stable" for patient / At or near baseline Degree of Condition Awareness: Demonstrates very good awareness of condition, disease course, and prognosis "RED FLAG" COPD symptoms: Increased dyspnea on exertion ("I can't walk to the kitchen or up the stairs without coughing and wheezing", "My chest feels tight any time I move") Increased shortness of breath at rest ("I struggle to breathe even when watching TV", "I have to wear or turn up my oxygen just when I'm sitting on the couch") Medication Regimen Class B - LABA Self-Management plan Prednisone tapering dose Rx Exacerbation plan Solumedrol 40mg IM/IV History of ischemic cardiomyopathy 07/18/2018 Kidney disease, chronic, stage III (GFR 30-59 ml /min) 05/11/2018 Coronary artery disease invo lving [place] coronary artery of [place] heart without angina pectoris 05/08/2018 Anxiety state 05/08/2018 ADVANCE DIRECTIVE INFORMATION 03/23/2018 Overview: No, Advance Directive brochure offered , patient declined. Incomplete uterovaginal prolapse 09/29/2017 Cystocele, lateral 09/29/2017 Vaginal atrophy 09/29/2017 Hepatitis C antibody test positive 05/09/2017 Overview: HCV treated; SVR Confirmed 03/05/2018 Controlled substance agreement signed 02/23/2017 Biventricular implantable ca rdioverter-defibrillator in situ 08/07/2013 Last Assessment & Plan: Followed by [facility] cardiology History of colonic polyps 09/04/2012 Overview: 09/01/2012: adenoma, repeat in 3 years ICD-10 update of inactive term DYSLIPIDEMIA, GOAL LDL BELOW 100 05/07/2009 Overview: Per Lipid Taxonomy. OLD MYOCARDIAL INFARCT 12/11/2008 Overview: Modified by [facility] [place] Protocol #5. [facility] right coronary bare metal stents S/P angioplasty with stent 09/07/2006 History of tobacco use documented as of this encounter (statuses as of 05/05/2023) Resolved Problems Problem Noted Date Diagnosed Date Resolved Date Atrial fibrillation 02/27/2023 03/16/20 23 Atrial fibrillation 02/27/2023 03/16/20 23 Migraine 10/14/2022 10/14/2022 Acute inferior myocardial infarction 02/17/2020 09/09/2020 COPD, group C, by GOLD 2017 classification 07/23/2019 03/31/2020 Chronic hepatitis C without hepatic coma 08/28/2018 10/14/2022 COPD, moderate 07/18/2018 06/06/2019 Overview: Per COPD GOLD Classification Obstructive lung disease 04/02/2018 Hypertensive heart disease with heart failure 04/02/20 18 07/18/2018 Chronic hepatitis C without hepatic coma 08/02/2017 03/12/2018 Overview: HCV treated; SVR Confirmed 03/05/2018 Abnormal blood chemistry 08/14/2014 HTN, goal below 130/80 10/24/201302/23 Ischemic cardiomyopathy 08/07/201206/23 Warfarin anticoagulation 03/28/201209/2016 Abdominal aortic aneurysm 11/04/2010 Overview: tiny 2.50 cm infrarenal aneurysm seen on xray Repeat US 06/2011 Other nonspecific abnormal c ardiovascular system function study 11/07/2007 10/04/2017 EXAMINATION OF PARTICIPANT I N CLINICAL TRIAL - GENOMICS 01/15/2007 09/04/2009 Overview: Renamed Per Clinical Trials Billing Project. Study Title: Genomic Markers for Patients with Cardiovascular Disease Project #: [id number] PI: Peyton Conn MD [phone] GENOMICS CARDIO RESEARCH OTHER*[id number] 01/15/2007 06/28/2016 Overview: Renamed Per Clinical Trials Billing Project. Study Title: Genomic Markers for Patients with Cardiovascular Disease Project #: [id number] PI: Peyton Conn MD [phone] LV (left ventricular) mural thrombus 10/30/2006 12/28/2017 Tobacco use disorder 09/07/2006 010 Acute inferior myocardial infarction 08/19/2006 12/11/2008 Overview: Modified by [facility] [place] Protocol #5. [facility] right coronary bare metal stents EXAMINATION OF PARTICIPANT I N CLINICAL TRIAL - HORIZONS 08/19/2006 09/04/2009 Overview: Renamed Per Clinical Trials Billing Project. [facility] AMI clinical trial 263 Single blind trial comparing heparin and IIB/IIIA with bivalirudin, and Taxus vs bare metal stent. Patient Follow-up for 5 years Bench Shear Operator: Trent Verduzco [phone] [facility] Clinical Trial*[id number] 08/19/2006 09/08/2014 Overview: Renamed Per Clinical Trials Billing Project. [facility] AMI clinical trial 263 Single blind trial comparing heparin and IIB/IIIA with bivalirudin, and Taxus vs bare metal stent. Patient Follow-up for 5 years Bench Shear Operator: Trent Verduzco [phone] Menopause 08/29/2002 02/23/2017 LOC PRIM [id number] 05/29/200206/23 Dyslipidemia, goal to be determined 05/29/2002 05/07/2009 Overview: Per Lipid Taxonomy. 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 02/23/2017 documented as of this encounter (statuses as of 05/05/2023) Immunizations Name Administration Dates Next Due COVID-19 mRNA, LNP-s, No Pre serve, 2-Dose Series (Moderna) 11/12/2020,10/01/2020 H1N1 2009 Influenza, IM 06/08/2009 HEP A - Hepatitis A (Adult > 18 yrs) 04/02/2018, 07/24/2017 01/24/2018 Hepatitis B, 20+ yrs 04/02/2018,09/29/2017,07/2408/24/2017 Pneumococcal Conjugate Vacc, 13 Valent (Prevnar) 10/22/2014 Pneumococcal Polysaccharide PPV23 (Pneumovax) 02/23/2017,02/26/2007 Seasonal Influenza Intranasal 03/29/2013 Seasonal Influenza, PF, 6 M & above, IM , (FluLaval or Fluzone) 04/02/2018 Seasonal Influenza, Quadriva lent Hd (Fluzone Hd) 02/27/2023 Seasonal Influenza, Quadriva lent, No Preserve, IM 02/23/2017 Seasonal Influenza, Split, I IV3, No Preserve, Inj 04/10/2006 Seasonal Influenza, Split, I IV3, With Preserve, Inj 03/26/2014,04/20/2013,03/27/2012,01/21,02/17/2010,06/08/2009,02/27/20 07 Seasonal Influenza, Trivalen t, Adjuvanted, 65+ yrs 02/21/2022,02/03/2020,01/31/2019 TDAP (age 10 and older)(Boostrix) 06/02/2022 TDAP (age 11 and older)(Adacel) 02/11/2011 Zoster Vaccine Recombinant (Shingrix) 01/20/2020 ,07/23/2019 documented as of this encounter Social History Tobacco Use Types Packs/Day Years Used Date Smoking Tobacco: Every Day Cigarettes 0.3 20 Smokeless Tobacco: Never Comments:"About 6 cigarettes a day." Alcohol Use Standard Drinks/Week Comments No 0 (1 standard drink = 0.6 oz pur e alcohol) PHQ-2 Answer Date Recorded PHQ Adult Total Score 0 06/02/2022 Hunger Vital Sign Answer Date Recorded Within the past 12 months, y ou worried that your food would run out before you got the money to buy more. Often true 12/22/19 23 Within the past 12 months, t he food you bought just didn't last and you didn't have money to get more. Often true 12/21/2022 Sex and Gender Information Value Date Recorded Sex Assigned at Not on file Gender Identity Not on file Sexual Orientation Not on file Job Start Date Occupation Industry Not on file Not on file Not on file documented as of this encounter Progress Notes * Rosemarie Amanda MD - 05/03/2023 3:03 PM EST Radha Tong is a 78 year old female who presents for consultation to [facility] for left hip injury/pain. Consult requested by Mable Gonzalez [facility] Radha Tong is here with his/her daughter daughter in law History: Chief Complaint Patient presents with NEW PATIENT Left hip Nursing Notes: Carlita Gerardo, MED ASSIST 05/03/23 1344 Signed Patient presents today for new patient visit for left hip pain for a few months. Has not tried any treatment regarding hip pain, declines trying PT Patient reports left hip pain ongoing for many months if not years. Points more towards the SI joint and buttock as the location of the pain. Occasionally gets radiation into the groin as well as down the leg. She notes weakness of the left leg as well. No bowel or bladder incontinence. No saddle anesthesia. No progressive weakness. No fevers chills or weight loss. Is on Eliquis and Plavix, can not take NSAIDs. Is already on chronic oxycodone. Has not done PT, refuses to. States that they just take her money. Review of systems: All others negative except those noted above in HPI. Review of patient's allergies indicates: Allergen Reactions Imdur [Isosorbide Mononitrate] Severe headaches Nsaids Ultram [Tramadol Hcl] Nausea/vomiting UGI distress Current Outpatient Medications Medication Sig Dispense Refill Ventolin HFA 108 (90 Base) MCG/ACT Inhalation Aerosol Solution Inhale 2 Puffs by mouth every 4 hours as needed for Wheezing or Dyspnea. (Patient not taking: Reported on 04/04/2023) 54 g 1 Cyanocobalamin 1000 MCG Oral Tablet (Cyanocobalamin) Take by mouth 1 Tablet in the morning. 100 Tablet 5 Ondansetron HCl 4 MG Oral Tablet (Zofran) Take 1 Tablet by mouth every 8 hours as needed for Nausea. 20 Tablet 0 Nitroglycerin 0.4 MG Sublingual Tablet Sublingual (Nitrostat) DISSOLVE ONE TABLET UNDER THE TONGUE NEEDED FOR CHEST pain, maximum THREE doses 25 Tablet 5 Apixaban 5 MG Oral Tablet (Eliquis) Take 1 Tablet by mouth 2 times a day. 60 Tablet 3 Clopidogrel Bisulfate 75 MG Oral Tablet (Plavix) Take 1 Tablet by mouth in the morning. 30 Tablet 5 Gabapentin 300 MG Oral Capsule (Neurontin) Take 1 Capsule by mouth in the morning and 1 Capsule at noon and 1 Capsule before bedtime. 90 Capsule 11 Lisinopril 20 MG Oral Tablet (Prinivil) Take 1 Tablet by mouth in the morning. 90 Tablet 3 Pantoprazole Sodium 40 MG Oral Tablet Delayed Release (Protonix) TAKE ONE TABLET BY MOUTH DAILY 30 MINUTES BEFORE FIRST meal of THE DAY 90 Tablet 3 traZODone HCl 50 MG Oral Tablet (Desyrel) Take 0.5 Tablets by mouth at bedtime. 30 Tablet 5 levETIRAcetam 500 MG Oral Tablet (Keppra) Take 1 Tablet by mouth in the morning and 1 Tablet beforebedtime. 60 Tablet 6 Atorvastatin Calcium 20 MG Oral Tablet (Lipitor) Take 1 Tablet by mouth in the morning. 90 Tablet 5 Metoprolol Succinate ER 25 MG Oral Tablet Extended Release 24 Hour (toPROL XL) Take 1 Tablet by mouth in the morning and 1 Tablet before bedtime. 200 Tablet 5 Furosemide 40 MG Oral Tablet (Lasix) Take 1 Tablet by mouth daily AND 0.5 Tablets daily at noon. 135 Tablet 3 Anoro Ellipta 62.5-25 MCG/ACT Inhalation Aerosol Powder Breath Activated (umeclidinium-vilanterol) INHALE ONE PUFF EVERY DAY 180 Blister Dosing Unit 1 Venlafaxine HCl ER 225 MG Oral Tablet Extended Release 24 Hour Take 1 Tablet by mouth in the morning. hydrOXYzine HCl 25 MG Oral Tablet Take 1 Tablet by mouth 3 times a day as needed. oxyCODONE HCl 5 MG Oral Tablet (Oxy IR) Take 1 Tablet by mouth every 6 hours as needed (pain). 100 Tablet 0 No current facility-administered medications for this visit. Past Medical History: Diagnosis Date Acute inferior myocardial infarction (HCC) 08/19/2006 [facility] right coronary bare metal stents Automatic implantable cardiac defibrillator in situ 11/24/2008 [facility], Dr Bhavani Loya EF 20-25% COMMON MIGRAINE WITHOUT MENTION OF INTRACTABLE MIGRAINE Dyslipidemia, goal to be determined 05/29/2002 Echocardiogram abnormal 07/01/11 EF improved slightly to 30-35% Family history of diabetes mellitus 05/29/2002 History of 2019 novel coronavirus disease (COVID-19) 07/29/2020 History of tobacco use stopped 2006 Hyperplastic colon polyp 08/28/12 Dr. Spencer GILMORE Left bundle branch block 2004 Menopause Osteoarthrosis, unspecified whether generalized or localized, lower leg knee Other specified forms of chronic ischemic heart disease Personal history of colonic polyps 09/04/2012 09/01/2012: adenoma, repeat in 3 years Primary localized osteoarthrosis of shoulder region Patient Active Problem List Diagnosis Code ADVANCE DIRECTIVE INFORMATION S/P angioplasty with stent Z95.820 OLD MYOCARDIAL INFARCT I25.2 DYSLIPIDEMIA, GOAL LDL BELOW 100 E78.5 History of tobacco use Z87.891 History of colonic polyps Z86.010 Biventricular implantable cardioverter-defibrillator in situ Z95.810 Controlled substance agreement signed Z79.899 Hepatitis C antibody test positive R76.8 Incomplete uterovaginal prolapse N81.2 Cystocele, lateral N81.12 Vaginal atrophy N95.2 Coronary artery disease involving [place] coronary artery of [place] heart without angina pectoris I25.10 Anxiety state F41.1 Kidney disease, chronic, stage III (GFR 30-59 ml/min) ([facility]) N18.30 History of ischemic cardiomyopathy Z86.79 COPD, group C, by GOLD 2017 classification ([facility]) J44.9 Essential hypertension with goal blood pressure less than 140/90 I10 Carpal tunnel syndrome, bilateral G56.03 Trigger ring finger of right hand M65.341 Trigger ring finger of left hand M65.342 History of 2019 novel coronavirus disease (COVID-19) Z86.16 Abdominal aortic aneurysm (AAA) without rupture ([facility]) I71.40 Type 2 diabetes mellitus with hemoglobin A1c goal of less than 8.0% ([facility]) E11.9 Benign hypertension with CKD (chronic kidney disease) stage III ([facility]) I12.9, N18.30 Cigarette smoker F17.210 Infrarenal abdominal aortic aneurysm (AAA) without rupture ([facility]) I71.43 Type 2 diabetes mellitus with diabetic chronic kidney disease ([facility]) E11.22 Chronic combined systolic and diastolic congestive heart failure ([facility]) I50.42 Monoplegia, upper limb, nondominant side S/P CVA (cerebrovascular acc) ([facility]) I69.339 Right leg DVT ([facility]) I82.401 Hypertensive heart and kidney disease 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 and stage 3 chronic kidney disease (HCC) I13.0, I50.42, N18.30 Atrial fibrillation (HCC) I48.91 Other disorders of phosphorus metabolism E83.39 Breakthrough seizure ([facility]) G40.919 Hip pain, left M25.552 Past Surgical History: Procedure Laterality Date CARDIAC CATH-CARDIOLOGY ONLY 08/19/2006 right coronary artery 3 bare metal stents, [facility] CARPAL TUNNEL SURGERY Bilateral 02/20/2020 NEUROPLASTY MEDIAN NERVE AT CARPAL TUNNEL performed by Lore Richey DO at OR [facility] INSERT PULSE GENERATOR, EXISTING SINGLE LEAD 08/06/2013 NEW ICD GENERATOR ONLY performed by Tylor Loya MD at CARDIAC LABS [facility] LAP;W/HYSTERECTOMY 02/04/2020 LEFT VENTRICULAR PACING ELECTRODE, ADD-ON 11/24/08 CS LEAD PLACEMENT WITH INITIAL DEVICE performed by TYLOR LOYA at [facility]S [facility] MAMMOGRAM - BILATERAL 07/17/02 Birad Code 2 PACEMAKER-DEFIBRILLATOR ELECTRODE INSERT, SINGLE 08/09/2013 REPLACE LEAD (1 LEAD) performed by Monik Arnold IV, MD at [facility] REMOVE CATARACT, INSERT LENS PROSTH Right REMOVE GALLBLADDER 1990s Cholecystectomy, [place] TENDON SHEATH INCISION, FINGER Bilateral 02/20/2020 TRIGGER FINGER RELEASE performed by Lore Richey DO at [facility] [facility] VAGINAL DELIVERY ONLY times 5 Social History Socioeconomic History Marital status: Spouse name: Maurice Number of children: 5 Years of education: 12 Highest education level: Not on file Occupational History Occupation: disabled since 08/18/06, [employer] Employer: [employer] Tobacco Use Smoking status: Every Day Packs/day: 0.25 Years: 20.00 Additional pack years: 0.00 Total pack years: 5.00 Types: Cigarettes Smokeless tobacco: Never Tobacco comments: "About 6 cigarettes a day." Vaping Use Vaping Use: Never used Substance and Sexual Activity Alcohol use: No Drug use: No Sexual activity: Not Currently Partners: Male Other Topics Concern Service No Blood Transfusions No Caffeine Concern No Occupational Exposure No Hobby Hazards No Sleep Concern No Stress Concern No Weight Concern Yes Special Diet No Back Care No Exercise No Bike Helmet Not Asked Seat Belt Yes Self-Exams Yes Social History Narrative Not on file Social Determinants of Health Financial Resource Strain: Not on file Food Insecurity: Food Insecurity Present (12/21/2022) Hunger Vital Sign Worried About Running Out of Food in the Last Year: Often true Ran Out of Food in the Last Year: Often true Transportation Needs: Not on file Physical Activity: Not on file Stress: Not on file Social Connections: Not on file Intimate Partner Violence: Not on file Housing Stability: Not on file Family History Problem Relation Age of Onset Cancer Mother cervical cancer Heart Disorder Mother CABG Diabetes Mother Cancer Father prostate cancer Heart Disorder Father Thyroid Disorder Father Thyroid Disorder Sister Ear Problems Sister meniers Cancer Brother No Past Hx Brother No Past Hx Daughter No Past Hx Son No Past Hx Son No Past Hx Son No Past Hx Son Family History; none relevant to today's HPI Objective: Physical Exam There were no vitals filed for this visit. Estimated body mass index is 26.86 kg/m as calculated from the following: Height as of 02/27/23: 1.574 m (5' 1.97"). Weight as of 04/04/23: 66.5 kg (146 lb 11.2 oz). General: generally well-nourished and in no acute distress HEENT: normocephalic, atraumatic, sclera anicteric. Psych: mood and affect normal , cooperative Card: Peripheral pulses: normal in affected extremity (s) Resp: equal chest rise, non-tachypneic, non-labored breathing Skin: no rash, normal Neuro: Sensation: normal on affected extremity (s) MSK: Antalgic Hip Exam Inspection: No obvious deformity, no redness, swelling, warmth, bruising, abrasion. Palpation: Tender to palpation at the left lumbar paraspinals, left SI joint, left piriformis. Minimal greater troch tenderness. ROM: Range of motion limited but symmetric bilaterally. Strength: Abduction: R - 4/5 L - 4/5 Internal Rotation: R - 4/5 L - 4/5 Quads: R - 5/5 L - 4/5 Hams: R - 5/5 L - 5/5 Adduction: R - 5/5 L - 5/5 Special Tests: Negative logroll and FADIR. Positive JACOB. Vanessa's positive straight leg raise and slump Radiology (I have personally reviewed the following films): AP pelvis and two-view right hip, and lumbar spine series obtained today reveal degenerative disc disease at L3-L4. Atherosclerotic disease. Mild to moderate left hip osteoarthritis. - per my interpretation. Awaiting formal radiology interpretation. Assessment and Plan: ICD-10-CM 1. Pain of left hip M25.552 2. Primary osteoarthritis of one hip, left M16.12 3. Degeneration of lumbar intervertebral disc M51.36 4. Lumbar radiculopathy M54.16 Radha is a 78-year-old female who presents today for left hip and leg pain. I suspect that the majority of her pain is actually coming from a lumbar radiculopathy. She does have some pain that is consistent with left hip osteoarthritis but the majority of her symptoms are exacerbated more on straight leg raise and slump testing and are in a pattern more consistent with radiculopathy. We discussed these findings in detail and recommendation to proceed with a course of physical therapy. She doesnot drive due to a seizure disorder, and home health PT was requested. If we are unable to get thiswithin a reasonable time frame we will try to arrange transportation from the family but this will not happen frequently and she would benefit from more frequent therapy. I will see her back in about 2 months. If no improvement consider MRI and referral to pain management. The above assessment and plan were discussed at length. All questions were answered, and the patient expressed understanding. Rosemarie Amanda MD Primary Care Sports Medicine [facility] [address] [address] documented in this encounter Nursing Notes * Carlita Gerardo MED ASSIST - 05/03/2023 1:42 PM EST Patient presents today for new patient visit for left hip pain for a few months. Has not tried any treatment regarding hip pain, declines trying PT documented in this encounter Plan of Treatment Upcoming Encounters Date Type Department Care Team (Late st Contact Info) Description 05/25/2023 4:00 PM EST Home Visit [facility] at [address] [place] [address] Areli Washburn, RN [address] [place] [address] 06/29/2023 8:30 AM EST Office Visit Cardiology, [facility] [address] [facility] [place] [address] Nikole Crenshaw, PAOlivaC [address] [place] [address] 06/29/2023 9:00 AM EST Office Visit Pharmacy, [facility] [address] [place] [address] [facility] [address] [facility] [place] [id number] 06/29/2023 11:00 AM EST Office Visit Otol[facility]ology [facility] [address] [facility] [place] [address] Laurie Herrmann PA-C [address] [place] [address] 07/05/2023 1:30 PM EST Office Visit Orthopaedics [facility] [address] [facility] [place] [address] Rosemarie Amanda MD [facility] [place] [address] 07/05/2023 3:40 PM EST Office Visit Neurology [facility] [address] [place] [address] Ashlie Swift MD [address] [place] [address] 08/01/2023 9:30 AM EDT Imaging Vascular Lab, [facility] 2nd Floor, [place] [address] [facility] [place] [address] 08/09/2023 2:30 PM EDT Office Visit Vascular Surgery, [facility] [address] [place] [address] Trent Stewart MD [address] [place] [address] Pending Results Name Type Priority Associated Diagnoses Date /Time XR HIP UNILAT 2-3 VIEWS INCLUDING AP PELVIS Medical Imaging Routine Pain of left hip 05/03/2023 1:58 PM EST XR L SPINE COMPLETE Medical Imaging Routine Pain of left hip 05/03/2023 2:35 PM EST Scheduled Referrals Name Type Priority Associated Diagnoses Orde r Schedule HOME HEALTH REFERRAL OP Referral Within 10 days (routine) Pain of left hip Primary osteoarthritis of one hip, left Degeneration of lumbar intervertebral disc Lumbar radiculopathy Ordered: 05/03/2023 Health Maintenance Due Date Last Done Comments DISCUSS TOBACCO CESSATION (REFER TO SMARTSET #[id number]) 1945 Alpha-1 Antitrypsin 1965 Diabetic Eye Exam 1965 Diabetic Foot Exam 1965 DXA Scan 09/04/2016 09/04/2013, 09/04/2013 *ADVANCE DIRECTIVE NOT ON FILE 06/09/2019 COVID-19 Vaccine ( season) 2023 11/12/2020, 10/01/2020 Depression Screening 06/02/2023 06/02/2022 HbA1c 09/01/2023 03/02/2023, 12/21, 08/19/2006, Additional history exists GFR 10/17/2023 04/18/2023, 02/20, 03/13/2023, Additional history exists Albumin/Creatinine Ratio 03/02/2024 023, 02/21/2022, 07/23/2019 CKD PHOS USE SMARTSET 96471 03/02/202402/19, 10/07/2022, 02/21/2022, Additional history exists CKD HGB USE SMARTSET 54763 03/15/202403/15, 03/02/2023, 03/02/2023, Additional history exists O2 ASSESSMENT COMPLETED IN PAST YEAR FOR COPD 04/28/2024 04/28/2023 DTaP,Tdap,and Td Vaccines (4 - Td or Tdap) 06/02/2032 06/02/2022, 02/11/2011, 05/22/1995 Colonoscopy Discontinued 08/28/2012 Colorectal Cancer Screening Discontinued Pneumococcal Vaccine: 65+ Years Completed 02/23/2017, 10/22/2014, 02/26/2007 Hepatitis B Completed 04/02/2018, 09/19, 07/24/2017 Zoster Vaccines Completed 01/20/2020, 07/23/2019 Influenza Vaccine (FLU shot) Completed 02/27/2023, 02/21/2022, 02/03/2020, Additional history exists Cologuard Discontinued Fecal Occult Blood Test Discontinued GARDASIL-HPV IMMUNIZATION SERIES Aged Out No longer eligible based on patient's age to complete this topic MENINGOCOCCAL (MENACTRA/MENVEO) Aged Out No longer eligible based on patient's age to complete this topic Sigmoidoscopy Discontinued documented as of this encounter Medical Devices Not on filedocumented as of this encounter Visit Diagnoses Diagnosis Pain of left hip- Primary Primary osteoarthritis of one hip, left Degeneration of lumbar intervertebral disc Degeneration of lumbar or lumbosacral intervertebral disc Lumbar radiculopathy Thoracic or lumbosacral neuritis or radiculitis, unspecified documented in this encounter Advance Directives Latest Code Status on File Code Status Date Activated Date Inactivated Comments Full Code 02/20/2020 5:50 PM 02/20/2020 11:10 PM This order reflects the patients wishes and were consensually agreed upon. Code Status History Code Status Date Activated Date Inactivated Comments Full Code 11/24/2008 2:13 PM 11/25/2008 12:53 PM This o rder reflects the patients wishes and were consensually agreed upon. Question Answer Comments Discussion of Advance Directives occurred with: Patient Does the patient have a Living Will? No Does the patient have Health Care Power of Turbo Generator Oiler? No Healthcare Agents on File Name Relationship Healthcare Agent Relationshi p Communication Lacy Tong Adult Child Health Care Repr esentative (appointed verbally by patient or by statute hierarchy) Care Teams Marketing Program Manager Relationship Specialty Start Date End Date Roman Ennis III, MD [address] [facility] [place] [address] PCP - General Family Medicine 06/28/18 documented as of this encounter
--- OUTSIDE RECORDS SUMMARY | 2023-06-29 05:25 | External Medical Summary | Summary of Care ---
Author Name Unknown Organization [facility] Address [address] [facility] [place] [address] Phone [phone] Care Team Providers Care Business Functional Analyst Name Role Phone Loli NORWOOD MD, Roman Barraza Primary Care Provider [phone] Reason for Visit * Reason Comments [facility]: Maintenance Encounter Details Date Type Department Care Team (Late st Contact Info) Description 05/25/2023 4:00 PM EST Home Visit [facility], [facility] [address] [facility] [place] [address] Areli Washburn, RN [address] [place] [address] Advanced care planning/counseling discussion* Allergies Active Allergy Reactions Criticality Noted Date Comments Isosorbide Mononitrate 12/24/2007 Severe headaches Nsaids 05/29/2002 Tramadol Hcl Nausea/vomiting Low 01/09/2008 UGI distress documented as of this encounter (statuses as of 05/25/2023) Medications Medication Sig Dispensed Refills Start Date [...] 180 Blister Dosing Unit 1 03/31/2023 Active hydrOXYzine HCl 25 MG Oral Tablet Take 1 Tablet by mouth 3 times a day as needed. 0 Active Gabapentin 300 MG Oral Capsule (Neurontin)Indicati ons:Hip pain, left Take one tablet by mouth in the morning and at noon and two tablets by mouth before bed. 120 Capsule 11 05/03/2023 Active oxyCODONE HCl 5 MG Oral Tablet (Oxy IR)Indications:Lecturer Of Portuguese fernando pain syndrome Take 1 Tablet by mouth every 6 hours as needed (pain). 100 Tablet 0 05/05/2023 Active Venlafaxine HCl ER 225 MG Oral Tablet Extended Release 24 Hour Take 1 Tablet by mouth in the morning. 0 05/25/19 24 Discontinu ed(Medicat ion List Clean Up) documented as of this encounter (statuses as of 05/25/2023) Active Problems Problem Noted Date Diagnosed Date Food insecurity 05/01/2023 Overview: Per [facility] Protocol Hip pain, left 04/28/2023 Atrial [...] /min) 05/11/2018 Coronary artery disease invo lving [place] coronary artery of [place] heart without angina pectoris 05/08/2018 Anxiety state 05/08/2018 ADVANCE DIRECTIVE INFORMATION 03/23/2018 Overview: No, Advance Directive brochure offered , patient declined. Incomplete uterovaginal prolapse 09/29/2017 Cystocele, lateral 09/29/2017 Vaginal atrophy 09/29/2017 Hepatitis C antibody test positive 05/09/2017 Overview: HCV treated; SVR Confirmed 03/05/2018 Controlled substance agreement signed 02/23/2017 Biventricular implantable ca rdioverter-defibrillator in situ 08/07/2013 Last Assessment & Plan: Followed by [facility] cardiology History of colonic polyps 09/04/2012 Overview: 09/01/2012: adenoma, repeat in 3 years ICD-10 update of inactive term DYSLIPIDEMIA, GOAL LDL BELOW 100 05/07/2009 Overview: Per Lipid Taxonomy. OLD MYOCARDIAL INFARCT 12/11/2008 Overview: Modified by Acute [place] Protocol #5. [facility] right coronary bare metal stents S/P angioplasty with stent 09/07/2006 History of tobacco use documented as of this encounter (statuses as of 05/25/2023) Resolved Problems Problem Noted Date Diagnosed Date [...] for Patients with Cardiovascular Disease Project #: [id number] PI: Peyton Conn MD [phone] GENOMICS CARDIO RESEARCH OTHER*[id number] 01/15/2007 06/28/2016 Overview: Renamed Per Clinical Trials Billing Project. Study Title: Genomic Markers for Patients with Cardiovascular Disease Project #: [id number] PI: Peyton Conn MD [phone] LV (left ventricular) mural thrombus 10/30/2006 12/28/2017 Tobacco use disorder 09/07/2006 010 Acute inferior myocardial infarction 08/19/2006 12/11/2008 Overview: Modified by Acute [place] Protocol #5. [facility] right coronary bare metal stents EXAMINATION OF PARTICIPANT I N CLINICAL TRIAL - HORIZONS 08/19/2006 09/04/2009 Overview: Renamed Per Clinical Trials Billing Project. [facility] AMI clinical trial 2004- 0264 Single blind trial comparing heparin and IIB/IIIA with bivalirudin, and Taxus vs bare metal stent. Patient Follow-up for 5 years Shift Engineer: Trent Verduzco [phone] [facility] Clinical Trial*[id number] 08/19/2006 09/08/2014 Overview: Renamed Per Clinical Trials Billing Project. [facility] AMI clinical trial 263 Single blind trial comparing heparin and IIB/IIIA with bivalirudin, and Taxus vs bare metal stent. Patient Follow-up for 5 years Shift Engineer: Trent GeovannySarah Verduzco [phone] Menopause 08/29/2002 02/23/2017 LOC PRIM [id number] 05/29/200206/23 Dyslipidemia, goal to be determined 05/29/2002 05/07/2009 Overview: Per Lipid Taxonomy. 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 02/23/2017 documented as of this encounter (statuses as of 05/25/2023) Immunizations Name Administration Dates Next Due COVID-19 [...] on file documented as of this encounter Last Filed Vital Signs Vital Sign Reading Time Taken Comments Blood Pressure 118/60 05/25/2023 12:10 PM EST Pulse 76 05/25/2023 12:10 PM EST Temperature 36.3 C (97.3 F) 05/25/2023 12:[address] Respiratory Rate 18 05/25/2023 12:10 PM EST Oxygen Saturation 96% 05/25/2023 12:10 PM EST Inhaled Oxygen Concentration - - Weight 68 kg (150 lb) 05/25/2023 12:10 PM EST Height - - Body Mass Index 27.46 02/27/2023 4:30 PM EDT documented in this encounter Progress Notes * Areli Washburn RN - 05/25/2023 11:45 AM EST [facility] Public Relations Professional Visit Date: 05/25/2023 Time: 11:45 AM Name: Radha Tong : 1945 Current Concerns: Patient seen for follow up- COPD, CHF, CKD, Afib, HTN Reports doing very well. Weighing daily- own scale- Weight today- 150lbs VS wnl Lungs clear slightly diminished Sob with exertion No LE edema noted Voiding without difficulty Bowels wnl- per report Appetite good Taking fluids well Pain managed with Gabapentin/ Oxycodone/ APAP Receives pill packs from [employer] complete- Epic reflects current regimen Problems/Symptoms: Review of Systems Constitutional: Negative. HENT: Negative. Respiratory: Positive for shortness of breath. Cardiovascular: Negative. Gastrointestinal: Negative. Endocrine: Negative. Genitourinary: Negative. Musculoskeletal: Positive for gait problem. Skin: Negative. Allergic/Immunologic: Negative. Physical Exam: BP 118/60 (BP Site: Left Arm, BP Position: Sitting, BP Cuff Size: Regular) | Pulse 76 | Temp 36.3 C (97.3 F) (Tympanic) | Resp 18 | Wt 68 kg (150 lb) | SpO2 96% | BMI 27.46 kg/m | BSA 1.72 m Pain 7- hips Physical Exam Constitutional: Appearance: Normal appearance. Cardiovascular: Rate and Rhythm: Normal rate. Rhythm irregular. Pulses: Normal pulses. Pulmonary: Effort: Pulmonary effort is normal. Breath sounds: Normal breath sounds. Abdominal: General: Bowel sounds are normal. Palpations: Abdomen is soft. Musculoskeletal: General: Normal range of motion. Skin: General: Skin is warm and dry. Capillary Refill: Capillary refill takes 2 to 3 seconds. Neurological: General: No focal deficit present. Mental Status: She is alert and oriented to person, place, and time. Psychiatric: Mood and Affect: Mood normal. Behavior: Behavior normal. [facility]-10 Completed this Visit: No. Routine visit Treatment/Plan: Weigh daily- keep log Continue medications as prescribed Keep all upcoming MD appointments Fall precautions Fluids encouraged Elevate ble prn edema Low na diet RN CM follow up in 6 weeks Home Interventions Provided: Reinforced current Plan of Care, including self-management and medication regimen Patient's Goals of Care: Go to [facility] every Mon/Mon Stay at home with her cats Patient's 'Red Flags': Increase of 2-3lbs/ 24 hours Increase in shortness of breath/ edema Lightheadedness/ dizziness Voices understanding of red flags Patient Needs to Remember: Call [facility] with any medical concerns/ red flags Referrals Needed: N/a Follow Up: Is there cellular connectivity/connectivity in the home? Yes Does the patient have internet in the home? No Patient encouraged to call the intake phone number for all urgent but not emergent issues. Scheduled to follow up with patient in 6 weeks. Areli Coates RN 05/25/2023 11:45 AM documented in this encounter Miscellaneous Notes * ACP (Advance Care Planning) - Areli Washburn RN - 05/25/2023 11:59 AM EST Patient-centered Communication 05/25/2023 The patient/surrogate voluntarily agreed to participate in advance care planning discussion. They were advised that this is a separate service which may incur out of pocket cost in the form of copayment and/or deductibles. Location: Home Individual(s) present for conversation: Patient Decisions Synopsis SmartLink Most Recent Value Past ~10 years 05/25/2023 11:59 Decisions CPR decision: Declines CPR 05/25/2023 Declines CPR Intubation/Mechanical Ventilation decision: Declines Intubation/mechanical ventilation 05/25/2023 Declines Intubation/mechanical ventilation Non-invasive ventilation or BIPAP decision: Patient chooses non-invasive ventilation. Select interventions below 05/25/2023 Patient chooses non-invasive ventilation. Select interventions below Non-Invasive Ventilation Interventions: NIV 05/25/2023 NIV Antibiotic therapy decision: Patient chooses Antibiotic therapy 05/25/2023 Patient chooses Antibiotic therapy Artificial nutrition decision: Declines Artificial nutrition 05/25/2023 Declines Artificial nutrition IV hydration decision: Patient chooses IV hydration 05/25/2023 Patient chooses IV hydration Chemotherapy decision: Undecided about Chemotherapy 05/25/2023 Undecided about Chemotherapy Radiation therapy decision: Undecided about Radiation therapy 05/25/2023 Undecided about Radiation therapy Surgical procedure(s) decision: Patient chooses Surgical procedure 05/25/2023 Patient chooses Surgical procedure Blood transfusion decision: Patient chooses Blood transfusion 05/25/2023 Patient chooses Blood transfusion Lab draw decision: Patient chooses Lab draws 05/25/2023 Patient chooses Lab draws Hospice decision: Patient chooses Hospice 04/28/2023 Transport decision: Patient chooses Transport 05/25/2023 Patient chooses Transport Dying at home decision: Patient chooses Dying at home 04/28/2023 Dialysis decision: Declines Dialysis 05/25/2023 Declines Dialysis Additional Comments Discerning What Matters Most to the Patient: Synopsis SmartLink Most Recent Value Past ~10 years 05/25/2023 12:03 Discerning What Matters Most to the Patient Their current SYMPTOMS include: Pain 05/25/2023 Pain They say their illness has CHANGED THEIR LIFE by: Feel like a burden to family/loved ones 05/25/2023 Feel like a burden to family/loved ones The patient thinks COMPLICATIONS in the future may be: More hospitalizations;More pain 05/25/2023 More hospitalizations;More pain Was PROGNOSIS discussed? No 12/21/2022 The patient's HOPES are: Maintain current functional abilities;Avoid further hospitalization 05/25/2023 Maintain current functional abilities;Avoid further hospitalization The patient defines LIVING WELL as: taking care of my own houshold, cooking for myself- being happ 05/25/2023 taking care of my own houshold, cooking for myself- being happ The patient's FEARS/WORRIES about illness are: Being a burden to family 05/25/2023 Being a burden to family The patient's cultural or spiritual BELIEFS that may affect health care decisions: Synagogue 05/25/2023 Synagogue Source: Content from Respecting Choices Program Aligning Care With What Matters Most: Synopsis [place] Most Recent Value Past ~10 years 05/25/2023 11:59 Aligning Care With What Matters Most Interventions/Choices: CPR;Intubation/mechanical ventilation;Non-invasive ventilation or BIPAP;IV hydration;Transport;Dialysis;Lab draws;Blood transfusion;Surgical procedure;Antibiotic therapy;Artificial nutrition;Radiation therapy;Chemotherapy 05/25/2023 CPR;Intubation/mechanical ventilation;Non-invasive ventilation or BIPAP;IV hydration;Transport;Dialysis;Lab draws;Blood transfusion;Surgical procedure;Antibiotic therapy;Artificial nutrition;Radiation therapy;Chemotherapy Rationale for Decisions Source: Content from Respecting Choices Program 20 minutes spent in direct [id number] discussion today, Areli Coates, RN documented in this encounter Plan of Treatment Upcoming Encounters Date Type Department Care Team (Late st Contact Info) Description 06/29/2023 8:30 AM EST Office Visit Cardiology, [facility] [address] [place] [address] Nikole Crenshaw PA-C [address] [place] [address] 06/29/2023 9:00 AM EST Office Visit Pharmacy, [facility] [address] [facility] [address] [facility] [address] [place] [address] 06/29/2023 11:00 AM EST Office Visit Otolaryngology [facility] [address] [place] [address] Laurie Herrmann PA-C [address] [place] [address] 07/05/2023 1:30 PM EST Office Visit Orthopaedics [facility] [address] [place] [address] Rosemarie Amanda MD [address] [place] [address] 07/05/2023 3:40 PM EST Office Visit Neurology [facility] [address] [facility] [place] [address] Ashlie Swift MD [address] [facility] [place] [address] 07/10/2023 10:00 AM EST Home Visit [facility], [facility] [address] [place] [address] Areli Washburn, RN [address] [place] [address] 08/01/2023 9:30 AM EDT Imaging Vascular Lab, [facility] [facility] [address] [place] [address] 08/09/2023 2:30 PM EDT Office Visit Vascular Surgery, [facility] [address] [place] [address] Trent Stewart MD [address] [place] [address] Health Maintenance Due Date Last Done Comments [...] 023, 02/21/2022, 07/23/2019 CKD PHOS USE SMARTSET 29638 03/02/202402/19, 10/07/2022, 02/21/2022, Additional history exists CKD HGB USE SMARTSET 49193 03/15/202403/153, 03/02/2023, 03/02/2023, Additional history exists O2 ASSESSMENT [...] as of this encounter Visit Diagnoses Diagnosis Advanced care planning/counseling discussion- Primary Other specified counseling documented in this encounter Advance Directives Latest [...] the patient have Health Care Power of Industrial Court Magistrate? No Healthcare Agents on File Name Relationship Healthcare Agent Relationshi p Communication Lacymark anthony Tong Adult Child Health Care Repr esentative (appointed verbally by patient or by statute hierarchy) Care Teams Business Functional Analyst Relationship Specialty Start Date End Date Roman Ennis III, MD [address] [place] [address] PCP - General Family Medicine 06/28/18 documented as of this encounter
--- OUTSIDE RECORDS SUMMARY | 2023-06-29 05:25 | External Medical Summary | Summary of Care ---
Author Name Unknown Organization [facility] Address [address] [place] [address] Phone [phone] Care Team Providers Care Boat Tender Name Role Phone Loli NORWOOD MD, Roman Barraza Primary Care Provider [phone] Encounter Details Date Type Department Care Team (Late st Contact Info) Description 06/01/2023 Population Health External Data Unspecified Department Allergies Active Allergy Reactions Criticality Noted Date Comments Isosorbide Mononitrate 12/24/2007 Severe headaches Nsaids 05/29/2002 Tramadol Hcl Nausea/vomiting Low 01/09/2008 UGI distress documented as of this encounter (statuses as of 06/05/2023) Medications Medication Sig Dispensed Refills Start Date [...] Active Ondansetron HCl 4 MG Oral Tablet (Zofran)Indications: Nausea Take 1 Tablet by mouth every 8 hours as needed for Nausea. 20 Tablet 0 02/27/2023 Active Nitroglycerin 0.4 MG Sublingual Tablet Sublingual (Nitrostat)Indicatio ns:ASCVD (arteriosclerotic cardiovascular disease),Chest pain, unspecified type DISSOLVE [...] 03/09/2023 Active Lisinopril 20 MG Oral Tablet (Prinivil)Indication s:HTN, goal to be determined Take 1 Tablet by mouth in the morning. 90 Tablet 3 03/09/2023 Active Pantoprazole Sodium 40 MG Oral Tablet Delayed Release (Protonix)Indication s:Abdominal pain, epigastric TAKE ONE TABLET BY MOUTH [...] 62.5-25 MCG/ACT Inhalation Aerosol Powder Breath Activated (umeclidinium-vilant gaurav) INHALE ONE PUFF EVERY DAY 180 Blister Dosing Unit 1 03/31/2023 Active hydrOXYzine HCl 25 MG Oral Tablet Take 1 Tablet by mouth 3 times a day as needed. 0 Active Gabapentin 300 MG Oral Capsule (Neurontin)Indicatio ns:Hip pain, left Take one tablet by mouth in the morning and at noon and two tablets by mouth before bed. 120 Capsule 11 05/03/2023 Active oxyCODONE HCl 5 MG Oral Tablet (Oxy IR)Indications:Chron ic pain syndrome Take 1 Tablet by mouth every 6 hours as needed (pain). 100 Tablet 0 05/31/2023 Active documented as of this encounter (statuses as of 06/05/2023) Active Problems Problem Noted Date Diagnosed Date [...] /min) 05/11/2018 Coronary artery disease invo lving [place] coronary artery of [place] heart without angina pectoris 05/08/2018 Anxiety state 05/08/2018 ADVANCE DIRECTIVE INFORMATION 03/23/2018 Overview: No, Advance Directive brochure offered , patient declined. Incomplete uterovaginal prolapse 09/29/2017 Cystocele, lateral 09/29/2017 Vaginal atrophy 09/29/2017 Hepatitis C antibody test positive 05/09/2017 Overview: HCV treated; SVR Confirmed 03/05/2018 Controlled substance agreement signed 02/23/2017 Biventricular implantable ca rdioverter-defibrillator in situ 08/07/2013 Last Assessment & Plan: Followed by [facility] [place] [place] cardiology History of colonic polyps 09/04/2012 Overview: 09/01/2012: adenoma, repeat in 3 years ICD-10 update of inactive term DYSLIPIDEMIA, GOAL LDL BELOW 100 05/07/2009 Overview: Per Lipid Taxonomy. OLD MYOCARDIAL INFARCT 12/11/2008 Overview: Modified by Acute [place] Protocol #5. [facility] [place] [place] right coronary bare metal stents S/P angioplasty with stent 09/07/2006 History of tobacco use documented as of this encounter (statuses as of 06/05/2023) Resolved Problems Problem Noted Date Diagnosed Date [...] for Patients with Cardiovascular Disease Project #: [id number] PI: Peyton Conn MD [phone] GENOMICS CARDIO RESEARCH OTHER*[id number] 01/15/2007 06/28/2016 Overview: Renamed Per Clinical Trials Billing Project. Study Title: Genomic Markers for Patients with Cardiovascular Disease Project #: [id number] PI: Peyton Conn MD [phone] LV (left ventricular) mural thrombus 10/30/2006 12/28/2017 Tobacco use disorder 09/07/2006 010 Acute inferior myocardial infarction 08/19/2006 12/11/2008 Overview: Modified by Acute [place] Protocol #5. [facility] [place] [place] right coronary bare metal stents EXAMINATION OF PARTICIPANT I N CLINICAL TRIAL - HORIZONS 08/19/2006 09/04/2009 Overview: Renamed Per Clinical Trials Billing Project. [facility] AMI clinical trial 263 Single blind trial comparing heparin and IIB/IIIA with bivalirudin, and Taxus vs bare metal stent. Patient Follow-up for 5 years Production Utility Worker: Trent Verduzco [phone] [facility] Clinical Trial*[id number] 08/19/2006 09/08/2014 Overview: Renamed Per Clinical Trials Billing Project. [facility] AMI clinical trial 263 Single blind trial comparing heparin and IIB/IIIA with bivalirudin, and Taxus vs bare metal stent. Patient Follow-up for 5 years Production Utility Worker: Trent Verduzco [phone] Menopause 08/29/2002 02/23/2017 LOC PRIM [id number] 05/29/200206/23 Dyslipidemia, goal to be determined 05/29/2002 05/07/2009 Overview: Per Lipid Taxonomy. 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 02/23/2017 documented as of this encounter (statuses as of 06/05/2023) Immunizations Name Administration Dates Next Due COVID-19 [...] on file documented as of this encounter Plan of Treatment Upcoming Encounters Date Type Department Care Team (Late st Contact Info) Description 06/29/2023 11:00 AM EST Office Visit Otolaryngology [facility] [address] [place] [address] Laurie Herrmann PA-C [address] [place] [address] 07/05/2023 1:30 PM EST Office Visit Orthopaedics [facility] [address] [place] [address] Rosemarie Amanda MD [address] [place] [address] 07/05/2023 3:40 PM EST Office Visit Neurology [facility] [address] [facility] [place] [address] Ashlie Swift MD [address] [facility] [place] [address] 07/10/2023 10:00 AM EST Home Visit [facility], [facility] [address] [place] [address] Areli Washburn, RN [address] [place] [address] 07/18/2023 9:00 AM EST Office Visit Cardiology, [facility] [address] [facility] [place] [address] Nikole Crenshaw PA-C [address] [place] [address] 07/18/2023 9:30 AM EST Office Visit Pharmacy, [facility] [address] [facility] [place] [address] [facility] [address] [place] [address] 08/01/2023 9:30 AM EDT Imaging Vascular Lab, [facility] 2nd Floor, [place] [address] [facility] [place] [address] 08/09/2023 2:30 PM EDT Office Visit Vascular Surgery, [facility] [address] [facility] [place] [address] Trent Stewart MD [address] [place], [place] [id number] Health Maintenance Due Date Last Done Comments [...] 023, 02/21/2022, 07/23/2019 CKD PHOS USE SMARTSET [id number] 03/02/202402/19, 10/07/2022, 02/21/2022, Additional history exists CKD HGB USE SMARTSET 78609 03/15/202403/15, 03/02/2023, 03/02/2023, Additional history exists O2 ASSESSMENT COMPLETED IN PAST YEAR FOR COPD 05/25/2024 05/25/2023 DTaP,Tdap,and Td Vaccines (4 - Td or [...] Not on filedocumented as of this encounter Advance Directives Latest Code Status [...] the patient have Health Care Power of Information Clerk? No Healthcare Agents on File Name Relationship Healthcare Agent Relationshi p Communication Lacy Tong Adult Child Health Care Repr esentative (appointed verbally by patient or by statute hierarchy) Care Teams Boat Tender Relationship Specialty Start Date End Date Roman Ennis III, MD [address] [place] [address] PCP - General Family Medicine 06/28/18 documented as of this encounter
--- OUTSIDE RECORDS SUMMARY | 2023-06-29 05:25 | External Medical Summary | Summary of Care ---
Author Name Unknown Organization [facility] Address [address] [facility] [place] [address] Phone [phone] Care Team Providers Care Franchise Field Consultant Name Role Phone Loli NORWOOD MD, Roman Barraza Primary Care Provider [phone] Reason for Referral * Medication Prior Authorization - Closed Specialty Diagnoses / Procedures Referred By Xuan bey Referred To Contact Diagnoses Chronic pain syndrome Beto Cosby DO [address] [place] [address] Referral ID Status Reason Start Date Expiration Date Visits Re quested Visits Authorized [id number] Closed [phone] Reason for Visit * Reason Onset Date Comments Medication Refill 05/05/2023 Encounter Details Date Type Department Care Team (Late st Contact Info) Description 05/05/2023 Refill Family Practice [facility] [address] [place] [address] Roman Ennis III, MD [address] [place] [address] Chronic pain syndrome Allergies Active Allergy Reactions Criticality Noted Date [...] oxyCODONE HCl 5 MG Oral Tablet (Oxy IR)Indications:Bridge Worker fernando pain syndrome Take 1 Tablet by mouth every 6 hours as needed (pain). 100 Tablet 0 05/05/2023 Active oxyCODONE HCl 5 MG Oral Tablet (Oxy IR)Indications:Bridge Worker fernando pain syndrome Take 1 Tablet by mouth every 6 hours as needed (pain). 100 Tablet 0 04/12/2023 05/05/20 23 Discontinu ed(Refill) documented as of this encounter (statuses as of 05/05/2023) Active Problems Problem Noted Date Diagnosed Date Food insecurity 05/01/2023 Overview: Per [facility] Protocol Hip pain, left 04/28/2023 [...] /min) 05/11/2018 Coronary artery disease invo lving [place] coronary artery of [place] heart without angina pectoris 05/08/2018 Anxiety state 05/08/2018 ADVANCE DIRECTIVE INFORMATION 03/23/2018 Overview: No, Advance Directive brochure offered , patient declined. Incomplete uterovaginal prolapse 09/29/2017 Cystocele, lateral 09/29/2017 Vaginal atrophy 09/29/2017 Hepatitis C antibody test positive 05/09/2017 Overview: HCV treated; SVR Confirmed 03/05/2018 Controlled substance agreement signed 02/23/2017 Biventricular implantable ca rdioverter-defibrillator in situ 08/07/2013 Last Assessment & Plan: Followed by [facility] cardiology History of colonic polyps 09/04/2012 Overview: 09/01/2012: adenoma, repeat in 3 years ICD-10 update of inactive term DYSLIPIDEMIA, GOAL LDL BELOW 100 05/07/2009 Overview: Per Lipid Taxonomy. OLD MYOCARDIAL INFARCT 12/11/2008 Overview: Modified by Acute [place] Protocol #5. [facility] right coronary bare metal stents S/P angioplasty [...] for Patients with Cardiovascular Disease Project #: [id number] PI: Peyton Conn MD [phone] GENOMICS CARDIO RESEARCH OTHER*[id number] 01/15/2007 06/28/2016 Overview: Renamed Per Clinical Trials Billing Project. Study Title: Genomic Markers for Patients with Cardiovascular Disease Project #: [id number] PI: Peyton Conn MD [phone] LV (left ventricular) mural thrombus 10/30/2006 12/28/2017 Tobacco use disorder 09/07/2006 010 Acute inferior myocardial infarction 08/19/2006 12/11/2008 Overview: Modified by Acute [place] Protocol #5. [facility] right coronary bare metal stents EXAMINATION OF PARTICIPANT I N CLINICAL TRIAL - [facility] 08/19/2006 09/04/2009 Overview: Renamed Per Clinical Trials Billing Project. [facility] AMI clinical trial 263 Single blind trial comparing heparin and IIB/IIIA with bivalirudin, and Taxus vs bare metal stent. Patient Follow-up for 5 years Design Engineering Specialist: Trent Verduzco [phone] [facility] Clinical Trial*[id number] 08/19/2006 09/08/2014 Overview: Renamed Per Clinical Trials Billing Project. [facility] AMI clinical trial 263 Single blind trial comparing heparin and IIB/IIIA with bivalirudin, and Taxus vs bare metal stent. Patient Follow-up for 5 years Design Engineering Specialist: Trent Verduzco [phone] Menopause 08/29/2002 02/23/2017 LOC PRIM [id number] 05/29/200206/23 Dyslipidemia, goal to be determined 05/29/2002 [...] on file documented as of this encounter Miscellaneous Notes * Telephone Encounter - Beto oCsby DO - 05/05/2023 4:52 PM ESTSigned Prescriptions: Disp Refills oxyCODONE HCl 5 MG Oral Tablet (Oxy IR) 100 Ta*0 Sig: Take 1 Tablet by mouth every 6 hours as needed (pain). Authorizing Provider: BETO COSBY * Telephone Encounter - Adriano Carney [facility] - 05/05/2023 12:05 PM ESTPending Prescriptions: Disp Refills oxyCODONE HCl 5 MG Oral Tablet (Oxy IR) 100 Ta*0 Sig: Take 1 Tablet by mouth every 6 hours as needed (pain). * Telephone Encounter - Adriano Carney [facility] - 05/05/2023 12:05 PM EST I have reviewed the patients controlled substance dispensing history in the Prescription Drug Monitoring Program in compliance with the [facility] regulations before prescribing a controlled substance. PDMP checked on 05/05/2023. Pending Prescriptions: Disp Refills oxyCODONE HCl 5 MG Oral Tablet (Oxy IR) 100 Ta*0 Sig: Take 1 Tablet by mouth every 6 hours as needed (pain). Last Visit: 02/27/2023 (in office), 08/24/2020 (telemedicine) Next Visit: Visit date not found Date medication was last filled: 04-14-23 Date medication is due for refill: 05-08-23 Pharmacy: [facility], [address] [place] Is this request for a controlled substance?and Urine Drug Screen was completed Toxicology results: Results for orders placed or performed in visit on 03/02/23 TOXICOLOGY, URINE SCREEN W/ CONFIRMATION Result Value Amphetamine Negative Benzodiazepines Negative Cannabinoids Negative Cocaine Metabolite Negative Fentanyl Negative Hydrocodone / Hydromorphone Negative Methadone Metabolite Negative Morphine / Codeine Negative Oxycodone / Oxymorphone Positive (A) Narrative Cutoff Concentrations: Drug Level Amphetamines 500 ng/mL Benzodiazepines 100 ng/mL Cannabinoids 50 ng/mL Cocaine Metabolite 150 ng/mL Fentanyl 1 ng/mL Hydrocodone / Hydromorphone 300 ng/mL Methadone Metabolite 100 ng/mL Morphine / Codeine 300 ng/mL Oxycodone / Oxymorphone 100 ng/mL Screening results are presumptive and can only be used for medical purposes. Positive screening results are reflexed to confirmatory testing. *Note: Due to a large number of results and/or encounters for the requested time period, some results have not been displayed. A complete set of results can be found in Results Review. Please approve if appropriate. Thanks, Adriano Carney, Bhavani.Ph. Clinical Pharmacist Telepharmacy [phone] 05/05/2023,12:05 PM * Telephone Encounter - Shannan Laureano CPhT - 05/05/2023 8:32 AM EST Did you pend patient's preferred pharmacy and medication before forwarding?yes Pharmacy: [facility], [address] [place] Pending Prescriptions: Disp Refills oxyCODONE HCl 5 MG Oral Tablet (Oxy IR) 100 Ta*0 Sig: Take 1 Tablet by mouth every 6 hours as needed (pain). Last Visit: 02/27/2023 (in office), 08/24/2020 (telemedicine) Next Visit: Visit date not found If no future appointments scheduled, and last appointment is greater than a year ago, please schedule patient for a follow-up appointment Last date the medication was ordered: 04/12/2023 Is this request for a controlled substance?Yes, What was the last refill date 04/12/2023 w/ quantity 100 and dosage 5 and Urine Drug Screen was completed Urine Drug Screen: Results for orders placed or performed in visit on 03/02/23 TOXICOLOGY, URINE SCREEN W/ CONFIRMATION Result Value Amphetamine Negative Benzodiazepines Negative Cannabinoids Negative Cocaine Metabolite Negative Fentanyl Negative Hydrocodone / Hydromorphone Negative Methadone Metabolite Negative Morphine / Codeine Negative Oxycodone / Oxymorphone Positive (A) Narrative Cutoff Concentrations: Drug Level Amphetamines 500 ng/mL Benzodiazepines 100 ng/mL Cannabinoids 50 ng/mL Cocaine Metabolite 150 ng/mL Fentanyl 1 ng/mL Hydrocodone / Hydromorphone 300 ng/mL Methadone Metabolite 100 ng/mL Morphine / Codeine 300 ng/mL Oxycodone / Oxymorphone 100 ng/mL Screening results are presumptive and can only be used for medical purposes. Positive screening results are reflexed to confirmatory testing. *Note: Due to a large number of results and/or encounters for the requested time period, some results have not been displayed. A complete set of results can be found in Results Review. Patient Phone Numbers Labs: Lab Results Component Value Date/Time CREAT 1.5 (H) 04/18/2023 11:14 AM CREAT 0.75 10/07/2022 12:00 AM CREAT 1.1 (H) 02/17/2020 01:00 PM POTASSIUM 5.2 (H) 04/18/2023 11:14 AM POTASSIUM 3.8 10/07/2022 12:00 AM POTASSIUM 4.5 02/17/2020 01:00 PM TSH 0.85 03/02/2023 09:17 AM TSH 0.79 04/04/2017 11:34 AM LDLCALC 54 02/21/2022 03:23 PM LDLCALC 75 04/04/2017 11:34 AM LDLDIRECT 150 (H) 07/18/2018 12:17 PM ALT 15 03/02/2023 09:17 AM ALT 12 02/17/2020 01:00 PM HGBA1C 5.8 (H) 03/02/2023 09:17 AM HGBA1C 6.4 (H) 01/15/2007 11:30 AM documented in this encounter Plan of Treatment Upcoming Encounters Date Type Department Care Team (Late st Contact Info) Description 05/25/2023 4:00 PM EST [facility] [address] [place] [address] Areli Washburn, LISA [address] [place] [address] 06/29/2023 8:30 AM EST Office Visit Cardiology, [facility] [address] [facility] [place] [address] Nikole Crenshaw PAOlivaC [address] [facility] [place] [address] 06/29/2023 9:00 AM EST Office Visit Pharmacy, [facility] [address] [place] [address] [facility] [address] [facility] [place] [address] 06/29/2023 11:00 AM EST Office Visit Otolaryngology [facility] [address] [facility] [facility] [place] [address] Laurie Herrmann PA-C [address] [facility] [place] [address] 07/05/2023 1:30 PM EST Office Visit Orthopaedics [facility] [address] [facility] [address] Rosemarie Amanda MD [address] [facility] [place] [address] 07/05/2023 3:40 PM EST Office Visit Neurology [facility] [address] [place] [address] Ashlie Swift MD [address] [place] [address] 08/01/2023 9:30 AM EDT Imaging Vascular Lab, [facility] 2nd Floor, [place] [address] [place] [address] 08/09/2023 2:30 PM EDT Office Visit Vascular Surgery, [facility] [address] [place] [address] Trent Stewart MD [address] [place] [facility] [place] [address] Health Maintenance Due Date Last Done Comments [...] 023, 02/21/2022, 07/23/2019 CKD PHOS USE SMARTSET 12210 03/02/202402/19, 10/07/2022, 02/21/2022, Additional history exists CKD HGB USE SMARTSET 64388 03/15/202403/15, 03/02/2023, 03/02/2023, Additional history exists O2 [...] as of this encounter Visit Diagnoses Diagnosis Chronic pain syndrome documented in this encounter Advance Directives Latest [...] the patient have Health Care Power of Aircraft Engine Dismantler? No Healthcare Agents on File Name Relationship Healthcare Agent Relationshi p Communication Lacy Tong Adult Child Health Care Repr esentative (appointed verbally by patient or by statute hierarchy) Care Teams Franchise Field Consultant Relationship Specialty Start Date End Date Roman Ennis III, MD [address] [facility] [place] [address] PCP - General Family Medicine 06/28/18 documented as of this encounter
--- OUTSIDE RECORDS SUMMARY | 2023-06-29 05:25 | External Medical Summary | Summary of Care ---
Author Name Unknown Organization [facility] Address [address] [place] [facility] [place] [address] Phone [phone] Care Team Providers Care Web Interface Developer Name Role Phone Loli NORWOOD MD, Roman Barraza Primary Care Provider [phone] Reason for Visit * Reason Onset Date Comments Medication Refill 06/21/2023 Encounter Details Date Type Department Care Team (Late st Contact Info) Description 06/21/2023 Refill Family Practice [facility] [place] [address] [facility] [address] [place] [address] Roman Ennis III, MD [address] [facility] [place] [address] Chronic pain syndrome Allergies Active Allergy Reactions Criticality Noted Date Comments Isosorbide Mononitrate 12/24/2007 Severe headaches Nsaids 05/29/2002 Tramadol Hcl Nausea/vomiting Low 01/09/2008 UGI distress documented as of this encounter (statuses as of 06/22/2023) Medications Medication Sig Dispensed Refills Start Date [...] oxyCODONE HCl 5 MG Oral Tablet (Oxy IR)Indications:Paper Testing Supervisor fernando pain syndrome Take 1 Tablet by mouth every 6 hours as needed (pain). 100 Tablet 0 06/22/2023 Active oxyCODONE HCl 5 MG Oral Tablet (Oxy IR)Indications:Paper Testing Supervisor fernando pain syndrome Take 1 Tablet by mouth every 6 hours as needed (pain). 100 Tablet 0 05/31/2023 06/21/19 24 Discontinu ed(Refill) documented as of this encounter (statuses as of 06/22/2023) Active Problems Problem Noted Date Diagnosed Date [...] /min) 05/11/2018 Coronary artery disease invo lving [place] coronary artery of [place] heart without angina pectoris 05/08/2018 Anxiety state 05/08/2018 ADVANCE DIRECTIVE INFORMATION 03/23/2018 Overview: No, Advance Directive brochure offered , patient declined. Incomplete uterovaginal prolapse 09/29/2017 Cystocele, lateral 09/29/2017 Vaginal atrophy 09/29/2017 Hepatitis C antibody test positive 05/09/2017 Overview: HCV treated; SVR Confirmed 03/05/2018 Controlled substance agreement signed 02/23/2017 Biventricular implantable ca rdioverter-defibrillator in situ 08/07/2013 Last Assessment & Plan: Followed by [facility] cardiology History of colonic polyps 09/04/2012 Overview: 09/01/2012: adenoma, repeat in 3 years ICD-10 update of inactive term DYSLIPIDEMIA, GOAL LDL BELOW 100 05/07/2009 Overview: Per Lipid Taxonomy. OLD MYOCARDIAL INFARCT 12/11/2008 Overview: Modified by Acute [place] Protocol #5. [facility] right coronary bare metal stents S/P angioplasty with stent 09/07/2006 History of tobacco use documented as of this encounter (statuses as of 06/22/2023) Resolved Problems Problem Noted Date Diagnosed Date [...] for Patients with Cardiovascular Disease Project #: [id number] PI: Peyton Conn MD [phone] GENOMICS CARDIO RESEARCH OTHER*[id number] 01/15/2007 06/28/2016 Overview: Renamed Per Clinical Trials Billing Project. Study Title: Genomic Markers for Patients with Cardiovascular Disease Project #: [id number] PI: Peyton Conn MD [phone] LV (left ventricular) mural thrombus 10/30/2006 12/28/2017 Tobacco use disorder 09/07/2006 010 Acute inferior myocardial infarction 08/19/2006 12/11/2008 Overview: Modified by Acute [place] Protocol #5. [facility] right coronary bare metal stents EXAMINATION OF PARTICIPANT I N CLINICAL TRIAL - [place] 08/19/2006 09/04/2009 Overview: Renamed Per Clinical Trials Billing Project. [facility] AMI clinical trial 4 Single blind trial comparing heparin and IIB/IIIA with bivalirudin, and Taxus vs bare metal stent. Patient Follow-up for 5 years Chop Saw Operator: Trent Verduzco [phone] [facility] Clinical Trial*[id number] 08/19/2006 09/08/2014 Overview: Renamed Per Clinical Trials Billing Project. [facility] AMI clinical trial 263 Single blind trial comparing heparin and IIB/IIIA with bivalirudin, and Taxus vs bare metal stent. Patient Follow-up for 5 years Chop Saw Operator: Trent [place] Verduzco [phone] Menopause 08/29/2002 02/23/2017 LOC PRIM [id number] 05/29/200206/23 Dyslipidemia, goal to be determined 05/29/2002 05/07/2009 Overview: Per Lipid Taxonomy. 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 Authorizing Provider: BETO COSBY * Telephone Encounter - Justina Jackson [facility] - 06/22/2023 2:05 PM ESTPending Prescriptions: Disp Refills oxyCODONE HCl 5 MG Oral Tablet (Oxy IR) 100 Ta*0 Sig: Take 1 Tablet by mouth every 6 hours as needed (pain). * Telephone Encounter - Justina Jackson [facility] - 06/22/2023 2:04 PM EST I have reviewed the patients controlled substance dispensing history in the Prescription Drug Monitoring Program in compliance with the [facility] regulations before prescribing a controlled substance. PDMP checked on 06/22/2023. Pending Prescriptions: Disp Refills oxyCODONE HCl 5 MG Oral Tablet (Oxy IR) 100 Ta*0 Sig: Take 1 Tablet by mouth every 6 hours as needed (pain). Last Visit: 02/27/2023 (in office), 08/24/2020 (telemedicine) Next Visit: Visit date not found Date medication was last filled: 05/31/23 Date medication is due for refill: 06/24/23 Pharmacy: [facility], [address] [place] Is this request for a controlled substance? Yes and Urine Drug Screen was completed Toxicology results: Results for orders placed or performed in visit on 03/02/23 TOXICOLOGY, URINE SCREEN W/ CONFIRMATION Result Value Amphetamines Screen, U Negative Benzodiazepines Screen, U Negative Cannabinoids Screen, U Negative Cocaine Metabolite Screen, U Negative Fentanyl Screen, U Negative Hydrocodone Screen, U Negative Methadone Metabolite Screen, U Negative Morphine/Codeine Screen, U Negative Oxycodone Screen, U Positive (A) Narrative Cutoff Concentrations: Drug Level [...] Results Review. Please approve if appropriate. Thanks, Justina Jackson Clinical Pharmacist [facility] ([facility]) (Formerly Telepharmacy) [phone] 06/22/2023, 2:04 PM * Telephone Encounter - Alberta Heath CPhT - 06/21/2023 3:29 PM EST Did you pend patient's preferred pharmacy and medication before forwarding?yes Pharmacy: [facility], [address] [place] Pending Prescriptions: Disp Refills [...] appointment Last date the medication was ordered: 05/31/2023 Is this request for a controlled substance?Yes, What was the last refill date 05/31/2023 w/ quantity 100 and dosage 5mg and Urine Drug Screen was completed Urine Drug Screen: Results for orders placed or performed in visit on 03/02/23 TOXICOLOGY, URINE SCREEN W/ CONFIRMATION Result Value Amphetamines Screen, U Negative Benzodiazepines Screen, U Negative Cannabinoids Screen, U Negative Cocaine Metabolite Screen, U Negative Fentanyl Screen, U Negative Hydrocodone Screen, U Negative Methadone Metabolite Screen, U Negative Morphine/Codeine Screen, U Negative Oxycodone Screen, U Positive (A) Narrative Cutoff Concentrations: Drug Level [...] 06/29/2023 11:00 AM EST Office Visit Otolaryngology [facility] [address] [place] [address] Laurie Herrmann PA-C [address] [place] [address] 07/05/2023 3:40 PM EST Office Visit Neurology [facility] [address] [place] [address] Ashlie Swift MD [address] [place] [address] 07/10/2023 10:00 AM EST [facility] Visit [facility], [facility] [address] [facility] [address] Areli Washburn, RN [address] [place] [address] 07/18/2023 9:00 AM EST Office Visit Cardiology, [facility] [address] [facility] [place] [address] Nikole Crenshaw PA-C [address] [place] [address] 07/18/2023 9:30 AM EST Office Visit Pharmacy, [facility] [address] [place] [address] [facility] [address] [facility] [place] [address] 08/01/2023 9:30 AM EDT Imaging Vascular Lab, [facility] 2nd Floor, [place] [address] [facility] [place] [address] 08/09/2023 2:30 PM EDT Office Visit Vascular Surgery, [facility] [address] [facility] [place] [address] Trent Stewart MD [address] [place] [facility] [place] [address] Health Maintenance Due Date Last Done Comments DISCUSS TOBACCO CESSATION (REFER TO SMARTSET #4611) 1945 Alpha-1 Antitrypsin 1965 Diabetic Foot Exam 1965 DXA Scan 09/04/2016 09/04/2013, 09/04/2013 *ADVANCE DIRECTIVE NOT ON FILE 06/09/2019 COVID-19 Vaccine ( season) 2023 11/12/2020, 10/01/2020 Depression Screening 06/02/2023 06/02/2022 Diabetic Eye Exam 07/21/2023 07/20/2022 HbA1c 09/01/2023 03/02/2023, 12/21, 08/19/2006, Additional history exists GFR 10/17/2023 04/18/2023, 02/20, 03/13/2023, Additional history exists Albumin/Creatinine Ratio 03/02/2024 023, 02/21/2022, 07/23/2019 CKD PHOS USE SMARTSET 91904 03/02/202402/19, 10/07/2022, 02/21/2022, Additional history exists CKD HGB USE SMARTSET 55387 03/15/202403/15, 03/02/2023, 03/02/2023, Additional history exists O2 [...] the patient have Health Care Power of Senior Web Analyst? No Healthcare Agents on File Name Relationship Healthcare Agent Relationshi p Communication Lacy Tong Adult Child Health Care Repr esentative (appointed verbally by patient or by statute hierarchy) Care Teams Web Interface Developer Relationship Specialty Start Date End Date Roman Ennis III, MD [address] [place] [address] PCP - General Family Medicine 06/28/18 documented as of this encounter
--- OUTSIDE RECORDS SUMMARY | 2023-06-29 05:25 | External Medical Summary | Summary of Care ---
Author Name Unknown Organization [facility] Address [address] [place] [facility] [place] [address] Phone [phone] Care Team Providers Care Sleep Medicine Physician Name Role Phone Loli NORWOOD MD, Marilyn Barraza Primary Care Provider [phone] Reason for Visit * Reason Onset Date Comments Medication Refill 05/30/2023 Encounter Details Date Type Department Care Team (Late st Contact Info) Description 05/30/2023 Refill Family Practice [facility] [place] [address] [facility] [address] [place] [address] Marilyn Nogueira III, MD [address] [facility] [place] [address] Chronic pain syndrome Allergies Active Allergy Reactions Criticality Noted Date Comments Isosorbide Mononitrate 12/24/2007 Severe headaches Nsaids 05/29/2002 Tramadol Hcl Nausea/vomiting Low 01/09/2008 UGI distress documented as of this encounter (statuses as of 05/31/2023) Medications Medication Sig Dispensed Refills Start Date [...] oxyCODONE HCl 5 MG Oral Tablet (Oxy IR)Indications:Photograph Finisher fernando pain syndrome Take 1 Tablet by mouth every 6 hours as needed (pain). 100 Tablet 0 05/31/2023 Active oxyCODONE HCl 5 MG Oral Tablet (Oxy IR)Indications:Photograph Finisher fernando pain syndrome Take 1 Tablet by mouth every 6 hours as needed (pain). 100 Tablet 0 05/05/2023 05/30/19 24 Discontinu ed(Refill) documented as of this encounter (statuses as of 05/31/2023) Active Problems Problem Noted Date Diagnosed Date [...] /min) 05/11/2018 Coronary artery disease invo lving [place] coronary artery of [place] heart without angina pectoris 05/08/2018 Anxiety state 05/08/2018 ADVANCE DIRECTIVE INFORMATION 03/23/2018 Overview: No, Advance Directive brochure offered , patient declined. Incomplete uterovaginal prolapse 09/29/2017 Cystocele, lateral 09/29/2017 Vaginal atrophy 09/29/2017 Hepatitis C antibody test positive 05/09/2017 Overview: HCV treated; SVR Confirmed 03/05/2018 Controlled substance agreement signed 02/23/2017 Biventricular implantable ca rdioverter-defibrillator in situ 08/07/2013 Last Assessment & Plan: Followed by [facility] [place] History of colonic polyps 09/04/2012 Overview: 09/01/2012: adenoma, repeat in 3 years ICD-10 update of inactive term DYSLIPIDEMIA, GOAL LDL BELOW 100 05/07/2009 Overview: Per Lipid Taxonomy. OLD MYOCARDIAL INFARCT 12/11/2008 Overview: Modified by Acute [place] Protocol #5. [facility] right coronary bare metal stents S/P angioplasty with stent 09/07/2006 History of tobacco use documented as of this encounter (statuses as of 05/31/2023) Resolved Problems Problem Noted Date Diagnosed Date [...] for Patients with Cardiovascular Disease Project #: [id number] PI: Peyton Conn MD [phone] GENOMICS CARDIO RESEARCH OTHER*[id number] 01/15/2007 06/28/2016 Overview: Renamed Per Clinical Trials Billing Project. Study Title: Genomic Markers for Patients with Cardiovascular Disease Project #: [id number] PI: Peyton Conn MD [phone] LV (left ventricular) mural thrombus 10/30/2006 12/28/2017 Tobacco use disorder 09/07/2006 010 Acute inferior myocardial infarction 08/19/2006 12/11/2008 Overview: Modified by Acute [place] Protocol #5. [facility] right coronary bare metal stents EXAMINATION OF PARTICIPANT I N CLINICAL TRIAL - HORIZONS 08/19/2006 09/04/2009 Overview: Renamed Per Clinical Trials Billing Project. [facility] AMI clinical trial 4 Single blind trial comparing heparin and IIB/IIIA with bivalirudin, and Taxus vs bare metal stent. Patient Follow-up for 5 years Dial Polisher: Trent Verduzco [phone] [facility] Clinical Trial*[id number] 08/19/2006 09/08/2014 Overview: Renamed Per Clinical Trials Billing Project. [facility] AMI clinical trial 263 Single blind trial comparing heparin and IIB/IIIA with bivalirudin, and Taxus vs bare metal stent. Patient Follow-up for 5 years Dial Polisher: Trent Sevilla Verduzco [phone] Menopause 08/29/2002 02/23/2017 LOC PRIM [id number] 05/29/200206/23 Dyslipidemia, goal to be determined 05/29/2002 05/07/2009 Overview: Per Lipid Taxonomy. 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 02/23/2017 documented as of this encounter (statuses as of 05/31/2023) Immunizations Name Administration Dates Next Due COVID-19 [...] encounter Miscellaneous Notes * Telephone Encounter - Marilyn Nogueira III, MD - 05/31/2023 9:11 AM ESTSigned Prescriptions: Disp Refills oxyCODONE HCl 5 MG Oral Tablet (Oxy IR) 100 Ta*0 Sig: Take 1 Tablet by mouth every 6 hours as needed (pain).Authorizing Provider: MARILYN NOGUEIRA III * Telephone Encounter - Laurie Ralph [facility] - 05/31/2023 8:13 AM EST Pending Prescriptions: Disp Refills oxyCODONE HCl 5 MG Oral Tablet (Oxy IR) 100 Ta*0 Sig: Take 1 Tablet by mouth every 6 hours as needed (pain). * Telephone Encounter - Laurie Ralph [facility] - 05/31/2023 8:13 AM EST I have reviewed the patients controlled substance dispensing history in the Prescription Drug Monitoring Program in compliance with the [facility] regulations before prescribing a controlled substance. PDMP checked on 05/31/2023. Pending Prescriptions: Disp Refills oxyCODONE HCl 5 MG Oral Tablet (Oxy IR) 100 Ta*0 Sig: Take 1 Tablet by mouth every 6 hours as needed (pain). Last Visit: 02/27/2023 (in office), 08/24/2020 (telemedicine) Next Visit: Visit date not found Date medication was last filled: 05/06 Date medication is due for refill: 05/31 Pharmacy: [facility], [address] [place] Is this request for [...] in Results Review. Please approve if appropriate. Thank you, Laurie Ralph, PharmD. Clinical Pharmacist Centralized Clinical Pharmacy Services (CCPS) (formerly Telepharmacy) 05/31/2023, 8:13 AM * Telephone Encounter - Mercedes Clinton CPhT - 05/30/2023 8:14 AM EST Did you pend patient's preferred pharmacy and medication before forwarding?yes Pharmacy: [facility], [address] [place] Pending Prescriptions: Disp Refills [...] appointment Last date the medication was ordered: 05/05/23 Is this request for a controlled substance?Yes, What was the last refill date 05/05/23 w/ quantity 100 and dosage 5 MG and Urine Drug Screen was completed Urine [...] 06/29/2023 8:30 AM EST Office Visit Cardiology, [address] [place] [address] Nikole Crenshaw PA-C [address] [facility] [place] [address] 06/29/2023 9:00 AM EST Office Visit Pharmacy, [facility] [address] [facility] [place] [address] [facility] [place] [address] 06/29/2023 11:00 AM EST Office Visit Otolaryngology [facility] [address] [facility] [place] [address] Laurie Herrmann PA-C [address] [place] [address] 07/05/2023 1:30 PM EST Office Visit Orthopaedics [facility] [address] [facility] [place] [address] Rosemarie Amanda MD [address] [facility] [place] [address] 07/05/2023 3:40 PM EST Office Visit Neurology [facility] [address] [place] [address] Ashlie Swift MD [address] [facility] [place] [address] 07/10/2023 10:00 AM EST Home Visit [facility] [address] [facility] [place] [address] Areli Washburn RN [address] [facility] [place] [address] 08/01/2023 9:30 AM EDT [facility] [address] [place] [address] 08/09/2023 2:30 PM EDT Office Visit Vascular Surgery, [facility] [address] [facility] [place] [address] Trent Stewart [facility] [address] [facility] [address] Health Maintenance Due Date Last Done Comments DISCUSS TOBACCO CESSATION (REFER TO SMARTSET #6882) 1945 Alpha-1 Antitrypsin 1965 Diabetic Eye Exam 1965 Diabetic Foot Exam 1965 DXA Scan 09/04/2016 09/04/2013, 09/04/2013 *ADVANCE DIRECTIVE NOT ON FILE 06/09/2019 COVID-19 Vaccine ( season) 2023 11/12/2020, 10/01/2020 Depression Screening 06/02/2023 06/02/2022 HbA1c 09/01/2023 03/02/2023, 12/21, 08/19/2006, Additional history exists GFR 10/17/2023 04/18/2023, 02/20, 03/13/2023, Additional history exists Albumin/Creatinine Ratio 03/02/2024 023, 02/21/2022, 07/23/2019 CKD PHOS USE SMARTSET 74276 03/02/202402/19, 10/07/2022, 02/21/2022, Additional history exists CKD HGB USE SMARTSET 93536 03/15/202403/15, 03/02/2023, 03/02/2023, Additional history exists O2 [...] the patient have Health Care Power of Government Service Executive? No Healthcare Agents on File Name Relationship Healthcare Agent Relationshi p Communication Lacy Tong Adult Child Health Care Repr esentative (appointed verbally by patient or by statute hierarchy) Care Teams Sleep Medicine Physician Relationship Specialty Start Date End Date Marilyn Nogueira III, MD [address] [place] [address] PCP - General Family Medicine 06/28/18 documented as of this encounter
--- OUTSIDE RECORDS SUMMARY | 2023-06-29 05:26 | External Medical Summary | Summary of Care ---
Author Name Unknown Organization [facility] Address [address] [place] [address] Phone [phone] Care Team Providers Care Pill Machine Operator Name Role Phone Loli NORWOOD MD, Roman Barraza Primary Care Provider [phone] Reason for Visit * Reason Onset Date Comments [facility]: Maintenance 04/29/2023 Encounter Details Date Type Department Care Team (Late st Contact Info) Description 04/29/2023 11:30 AM EST Scheduled Telephone [facility], [facility] [address] [facility] [place] [address] [facility] [address] [facility] [place] [address] Allergies Active Allergy Reactions Criticality Noted Date Comments Isosorbide Mononitrate 12/24/2007 Severe headaches Nsaids 05/29/2002 Tramadol Hcl Nausea/vomiting Low 01/09/2008 UGI distress documented as of this encounter (statuses as of 05/01/2023) Medications Medication Sig Dispensed Refills Start Date [...] the morning. 30 Tablet 5 03/09/2023 Active Gabapentin 300 MG Oral Capsule (Neurontin) Take 1 Capsule by mouth in the morning and 1 Capsule at noon and 1 Capsule before bedtime. 90 Capsule 11 03/09/2023 Active Lisinopril 20 MG Oral Tablet [...] needed (pain). 100 Tablet 0 04/12/2023 Active documented as of this encounter (statuses as of 05/01/2023) Active Problems Problem Noted Date Diagnosed Date Hip pain, left 04/28/2023 Atrial fibrillation 02/27/2023 Other disorders of phosphorus metabolism 023 Breakthrough seizure 02/27/2023 Hypertensive heart and kidne y disease with chronic combined systolic and diastolic congestive heart failure and stage 3 chronic kidney disease 02/20/2023 Chronic combined systolic an d diastolic congestive heart failure 01/04/2023 Monoplegia, upper limb, nond ominant side S/P CVA (cerebrovascular acc) 01/04/2023 Right leg DVT 01/04/2023 Infrarenal abdominal aortic aneurysm (AAA) witho ut rupture 10/14/2022 Type 2 diabetes mellitus wit h diabetic chronic kidney disease 10/14/2022 Cigarette smoker 08/03/2022 Type 2 diabetes mellitus wit h hemoglobin A1c goal of less than 8.0% 06/02/2022 Benign hypertension with CKD (chronic kidney disease) stage III 06/02/2022 Abdominal aortic aneurysm (AAA) without rupture 09/09/2020 History of 2019 novel coronavirus disease (COVID -19) 07/29/2020 Carpal tunnel syndrome, bilateral 12/27/2019 Trigger ring finger of right hand 12/27/2019 Trigger ring finger of left hand 12/27/2019 Essential hypertension with goal blood pressure less than 140/90 07/23/2019 COPD, group C, by GOLD 2017 classification 06/03 Overview: Per COPD GOLD Classification History of ischemic cardiomyopathy 07/18/2018 Kidney disease, chronic, stage III (GFR 30-59 ml /min) 05/11/2018 Coronary artery disease invo lving [place] coronary artery of [place] heart without angina pectoris 05/08/2018 Anxiety state 05/08/2018 ADVANCE DIRECTIVE INFORMATION 03/23/2018 Overview: No, Advance Directive brochure offered , patient declined. Incomplete uterovaginal prolapse 09/29/2017 Cystocele, lateral 09/29/2017 Vaginal atrophy 09/29/2017 Hepatitis C antibody test positive 05/09/2017 Overview: HCV treated; SVR Confirmed 03/05/2018 Controlled substance agreement signed 02/23/2017 Biventricular implantable ca rdioverter-defibrillator in situ 08/07/2013 History of colonic polyps 09/04/2012 Overview: 09/01/2012: adenoma, repeat in 3 years ICD-10 update of inactive term DYSLIPIDEMIA, GOAL LDL BELOW 100 05/07/2009 Overview: Per Lipid Taxonomy. OLD MYOCARDIAL INFARCT 12/11/2008 Overview: Modified by Acute [place] Protocol #5. [facility] right coronary bare metal stents S/P angioplasty with stent 09/07/2006 History of tobacco use documented as of this encounter (statuses as of 05/01/2023) Resolved Problems Problem Noted Date Diagnosed Date [...] for Patients with Cardiovascular Disease Project #: [id number] PI: Peyton Conn MD [phone] GENOMICS CARDIO RESEARCH OTHER*[id number] 01/15/2007 06/28/2016 Overview: Renamed Per Clinical Trials Billing Project. Study Title: Genomic Markers for Patients with Cardiovascular Disease Project #: [id number] PI: Peyton Conn MD [phone] LV (left ventricular) mural thrombus 10/30/2006 12/28/2017 Tobacco use disorder 09/07/2006 010 Acute inferior myocardial infarction 08/19/2006 12/11/2008 Overview: Modified by Acute [place] Protocol #5. [facility] right coronary bare metal stents EXAMINATION OF PARTICIPANT I N CLINICAL TRIAL - HORIZONS 08/19/2006 09/04/2009 Overview: Renamed Per Clinical Trials Billing Project. [facility] AMI clinical trial 263 Single blind trial comparing heparin and IIB/IIIA with bivalirudin, and Taxus vs bare metal stent. Patient Follow-up for 5 years Financial Aid Advisor: Trent Verduzco [phone] [facility] Clinical Trial*[id number] 08/19/2006 09/08/2014 Overview: Renamed Per Clinical Trials Billing Project. [facility] AMI clinical trial 263 Single blind trial comparing heparin and IIB/IIIA with bivalirudin, and Taxus vs bare metal stent. Patient Follow-up for 5 years Financial Aid Advisor: Trent Verduzco [phone] Menopause 08/29/2002 02/23/2017 LOC PRIM [id number] 05/29/200206/23 Dyslipidemia, goal to be determined 05/29/2002 05/07/2009 Overview: Per Lipid Taxonomy. 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 02/23/2017 documented as of this encounter (statuses as of 05/01/2023) Immunizations Name Administration Dates Next Due COVID-19 mRNA, LNP-s, No Pre serve, 2-Dose Series (Moderna) 11/12/2020,10/01/2020 DT - Diptheria/Tetanus (PEDS) 05/22/1995 H1N1 2009 Influenza, IM 06/08/2009 HEP A - Hepatitis A (Adult > 18 yrs) 04/02/2018, 07/24/2017 01/24/2018 Hepatitis B, 20+ yrs 04/02/2018,09/29/2017,07/2408/24/2017 Pneumococcal Conjugate Vacc, 13 Valent (Prevnar) 10/22/2014 Pneumococcal Polysaccharide PPV23 (Pneumovax) 02/23/2017,02/26/2007 SEASONAL INFLUENZA, PF, 6 M & Above, IM , (FLULAVAL or FLUZONE) 04/02/2018 Seasonal Influenza Intranasal 03/29/2013 Seasonal Influenza, Quadriva lent Hd (Fluzone Hd) [...] encounter Miscellaneous Notes * Telephone Encounter - Donna Jules RN - 05/01/2023 4:49 PM EST Spoke with patient she is aware gabapentin can not be increased at this time She has ortho appt on Monday she is aware to write down all questions/concerns and address with ortho and also call neurology about possible start of lyrica Donna Jules RN, BSN [facility] assisted living managerLivestock Exhibitor * Telephone Encounter - Manny Roman PA-C - 05/01/2023 11:50 AM EST [facility] Remote Medical Command Phone Encounter Thank you for your assistance in the care of this patient today. 78 year old year old female patient who presents today with continued complaints of pain. It was discussed that possibly patient could have an increase in the gabapentin dosing however on further review recommended dose for this patient with a creatinine clearance that she has does not support additional gabapentin. Please note this pain is not new and is ongoing and her neurologist is aware of it. It may be related to her left sciatica. Recommendations: Follow-up with her neurologist as they may have other suggestions suggestions and this pain is not new as was led to believe last week. Also please note that this patient [facility] enrollment status was resolved April 03, 2023. I spoke with Carmen Ivey, nurse case resolution specialist and she states that this resolved status is mistake. The patient is to be actively enrolled in [facility]. This note was prepared with the help of fluency and if there is any mis-spelled words , sentences or something which doesn't represent the content of the subject that could be technical error and please refer to the author for clarification. * Telephone Encounter - Prceious Frederick LPN - 04/29/2023 11:39 AM EST [facility] Telephonic Nurse Follow-Up Call [facility] Subprogram: Focused Care Management (3-9 months) Follow Up Call Type: 48 hour follow up Acute issue requiring follow-up call: Other: L foot pain Objective: 04/28/2023 3:17 PM 04/17/2023 12:01 PM 04/04/2023 2:07 PM 03/24/2023 11:42 AM 03/16/2023 10:13 AM VITALS ACROSS ENCOUNTERS BP 120/70 104/60 100/50 100/58 118/60 Pulse 83 76 70 80 80 Weight 66.5 kg 63.5 kg BMI 26.86 kg/m2 25.63 kg/m2 Lab Results Component Value Date PROTEIN - [facility] 6.9 03/02/2023 WBC AUTO - [facility] 5.21 03/15/2023 Lab Results Component Value Date WBC AUTO - [facility] 5.21 03/15/2023 HGB - [facility] 8.4 (L) 03/15/2023 PLATELET AUTO - [facility] 209 03/15/2023 Lab Results Component Value Date SODIUM - [facility] 138 04/18/2023 POTASSIUM - [facility] 5.2 (H) 04/18/2023 MAGNESIUM - [facility] 2.4 03/13/2023 CO2 - [facility] 30 04/18/2023 CREATININE - [facility] 1.5 (H) 04/18/2023 ESTIMATED GLOMERULAR FILTRATION RATE - [facility] 37 (L) 04/18/2023 ALBUMIN - [facility] 4.6 03/02/2023 AST - [facility] 12 03/02/2023 ALT - [facility] 15 03/02/2023 ALKALINE PHOSPHATASE - [facility] 64 03/02/2023 No results found for: "PRO BNP", "LEFT VENTRICULAR EJECTION FRACTION" Remote Patient Monitoring: NONE Oxygen Needs: NO supplemental oxygen needs identified DME Needs: NO DME needs identified Medications: Dose adjustment(s) made: Pt reports Gabapentin was to be increased but not noted Subjective: Condition Status: No change in symptoms Current Concerns: poke with pt L foot pain continues, did not sleep very much last night because ofit. Reports she was told a telemed yesterday Gabapentin would be increased but no new RX noted. Gets meds in a pill pack so unable to pull from supply Disposition: Routed to [facility] and/or [facility] Care Team for further advice Future Visits Scheduled: Future Appointments-next 60 days Date/Time Provider Specialty Dept Phone 05/03/2023 2:00 PM (Arrive by 1:45 PM) Rosemarie Amanda MD Orthopedics [phone] 05/25/2023 4:00 PM Areli Washburn RN [facility] [phone] 06/29/2023 8:30 AM (Arrive by 8:15 AM) Nikole Crenshaw PA-C Cardiology [phone] 06/29/2023 9:00 AM [facility] [phone] 06/29/2023 11:00 AM (Arrive by 10:45 AM) Laurie Herrmann PA-C Otolaryngology [phone] 07/05/2023 3:40 PM (Arrive by 3:25 PM) Ashlie Swift MD Neurology [phone] Precious Frederick LPN documented in this encounter Plan of Treatment Upcoming Encounters Date Type Department Care Team (Late st Contact Info) Description 05/03/2023 2:00 PM EST Office Visit Orthopaedics [facility] [address] [place] [address] Rosemarie Amanda MD [address] [place] [address] 05/25/2023 4:00 PM EST Home Visit [facility] [address] [place] [address] Areli Washburn, LISA [address] [place] [address] 06/29/2023 8:30 AM EST Office Visit Cardiology, [facility] [address] [place] [address] Nikole Crenshaw PA-C [address] [place] [address] 06/29/2023 9:00 AM EST Office [facility], [facility] [place] [address] [facility] [address] [place] [address] 06/29/2023 11:00 AM EST Office Visit Otolaryngology [facility] [address] [place] [address] Laurie Herrmann PA-C [address] [place] [address] 07/05/2023 3:40 PM EST Office Visit Neurology [facility] [address] [place] [address] Ashlie Swift MD [address] [place], [place] [address] Health Maintenance Due Date Last Done Comments DISCUSS TOBACCO CESSATION (REFER TO SMARTSET #5084) 1945 Alpha-1 Antitrypsin 1965 Diabetic Eye Exam 1965 Diabetic Foot Exam 1965 DXA Scan 09/04/2016 09/04/2013, 09/04/2013 *ADVANCE DIRECTIVE NOT ON FILE 06/09/2019 COVID-19 Vaccine ( season) 2023 11/12/2020, 10/01/2020 Depression Screening 06/02/2023 06/02/2022 HbA1c 09/01/2023 03/02/2023, 12/21, 08/19/2006, Additional history exists GFR 10/17/2023 04/18/2023, 02/20, 03/13/2023, Additional history exists Albumin/Creatinine Ratio 03/02/2024 023, 02/21/2022, 07/23/2019 CKD PHOS USE SMARTSET 86339 03/02/202402/19, 10/07/2022, 02/21/2022, Additional history exists CKD HGB USE SMARTSET 61879 03/15/202403/15, 03/02/2023, 03/02/2023, Additional history exists O2 [...] the patient have Health Care Power of Game Manager? No Healthcare Agents on File Name Relationship Healthcare Agent Relationshi p Communication Lacy Tong Adult Child Health Care Repr esentative (appointed verbally by patient or by statute hierarchy) Care Teams Pill Machine Operator Relationship Specialty Start Date End Date Roman Ennis III, MD [address] [facility] [place] [address] PCP - General Family Medicine 06/28/18 documented as of this encounter
--- OUTSIDE RECORDS SUMMARY | 2023-06-29 05:26 | External Medical Summary | Summary of Care ---
Author Name Unknown Organization [facility] Address [address] [place] [address] Phone [phone] Care Team Providers Care Ski Edge Painter Name Role Phone Loli NORWOOD MD, Roman Barraza Primary Care Provider [phone] Reason for Visit * Reason Comments [facility]: Maintenance Encounter Details Date Type Department Care Team (Late st Contact Info) Description 04/28/2023 3:00 PM EST Telemedicine [facility] [address] [place] [address] Shama Tang PA-C [address] [place] [address] Judy Hunt [facility] Bat Lathe Operator [address] [place] [address] Hip pain, left*; Paroxysmal atrial fibrillation (HCC); Biventricular implantable cardioverter-defibrill ator in situ; COPD, group C, by GOLD 2017 classification ([facility]); 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 and stage 3a chronic kidney disease (HCC); Type 2 diabetes mellitus with stage 3b chronic kidney disease, without long-term current use of insulin ([facility]) Allergies Active Allergy Reactions Criticality Noted Date Comments Isosorbide Mononitrate 12/24/2007 Severe headaches Nsaids 05/29/2002 Tramadol Hcl Nausea/vomiting Low 01/09/2008 UGI distress documented as of this encounter (statuses as of 05/03/2023) Medications Medication Sig Dispensed Refills Start Date [...] oxyCODONE HCl 5 MG Oral Tablet (Oxy IR)Indications: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 100 Tablet 0 04/12/2023 Active Gabapentin 300 MG Oral Capsule (Neurontin)Indicati ons:Hip pain, left Take one tablet by mouth in the morning and at noon and two tablets by mouth before bed. 120 Capsule 11 05/03/2023 Active Gabapentin 300 MG Oral Capsule (Neurontin) Take 1 Capsule by mouth in the morning and 1 Capsule at noon and 1 Capsule before bedtime. 90 Capsule 11 03/09/2023 05/03/20 23 Discontinu ed(Refill) documented as of this encounter (statuses as of 05/03/2023) Active Problems Problem Noted Date Diagnosed Date [...] /min) 05/11/2018 Coronary artery disease invo lving augustine coronary artery of augustine heart without angina pectoris 05/08/2018 Anxiety state 05/08/2018 ADVANCE DIRECTIVE INFORMATION 03/23/2018 Overview: No, Advance Directive brochure offered , patient declined. Incomplete uterovaginal prolapse 09/29/2017 Cystocele, lateral 09/29/2017 Vaginal atrophy 09/29/2017 Hepatitis C antibody test positive 05/09/2017 Overview: HCV treated; SVR Confirmed 03/05/2018 Controlled substance agreement signed 02/23/2017 Biventricular implantable ca rdioverter-defibrillator in situ 08/07/2013 Last Assessment & Plan: Followed by [facility] cardiology History of colonic polyps 09/04/2012 Overview: 09/01/2012: adenoma, repeat in 3 years ICD-10 update of inactive term DYSLIPIDEMIA, GOAL LDL BELOW 100 05/07/2009 Overview: Per Lipid Taxonomy. OLD MYOCARDIAL INFARCT 12/11/2008 Overview: Modified by Acute MA Protocol #5. [facility] right coronary bare metal stents S/P angioplasty with stent 09/07/2006 History of tobacco use documented as of this encounter (statuses as of 05/03/2023) Resolved Problems Problem Noted Date Diagnosed Date Resolved Date Atrial fibrillation 02/27/2023 03/16/20 Atrial fibrillation 02/27/2023 03/16/20 23 Migraine 10/14/2022 10/14/2022 Acute inferior myocardial infarction 02/17/2020 09/09/2020 COPD, group C, by GOLD 2017 classification 07/23/2019 03/31/2020 Chronic hepatitis C without hepatic coma 08/28/2018 10/14/2022 COPD, moderate 07/18/2018 06/06/2019 Overview: Per COPD GOLD Classification Obstructive lung disease 04/02/2018 Hypertensive heart disease with heart failure 04/02/2007/18/2018 Chronic hepatitis C without hepatic coma 08/02/2017 [...] for Patients with Cardiovascular Disease Project #: [id number] PI: Peyton Conn MD [phone] GENOMICS CARDIO RESEARCH OTHER*[id number] 01/15/2007 06/28/2016 Overview: Renamed Per Clinical Trials Billing Project. Study Title: Genomic Markers for Patients with Cardiovascular Disease Project #: [id number] PI: Peyton Conn MD [phone] LV (left ventricular) mural thrombus 10/30/2006 12/28/2017 Tobacco use disorder 09/07/2006 010 Acute inferior myocardial infarction 08/19/2006 12/11/2008 Overview: Modified by Acute MA Protocol #5. [facility] right coronary bare metal stents EXAMINATION OF PARTICIPANT I N CLINICAL TRIAL - [facility] 08/19/2006 09/04/2009 Overview: Renamed Per Clinical Trials Billing Project. [facility] AMI clinical trial 263 Single blind trial comparing heparin and IIB/IIIA with bivalirudin, and Taxus vs bare metal stent. Patient Follow-up for 5 years Promotions Representative: Trent Verduzco [phone] [facility] Clinical Trial*[id number] 08/19/2006 09/08/2014 Overview: Renamed Per Clinical Trials Billing Project. [facility] AMI clinical trial 263 Single blind trial comparing heparin and IIB/IIIA with bivalirudin, and Taxus vs bare metal stent. Patient Follow-up for 5 years Promotions Representative: Trent Verduzco [phone] Menopause 08/29/2002 02/23/2017 LOC PRIM [id number] 05/29/200206/23 Dyslipidemia, goal to be determined 05/29/2002 05/07/2009 Overview: Per Lipid Taxonomy. 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 02/23/2017 documented as of this encounter (statuses as of 05/03/2023) Immunizations Name Administration Dates Next Due COVID-19 [...] Sign Reading Time Taken Comments Blood Pressure 120/70 04/28/2023 3:17 PM EST Pulse 83 04/28/2023 3:17 PM EST Temperature 37.6 C (99.6 F) 04/28/2023 3:17 PM ES T Respiratory Rate 20 04/28/2023 3:17 PM EST Oxygen Saturation 97% 04/28/2023 3:17 PM EST Inhaled Oxygen Concentration - - Weight - - Height - - Body Mass Index - - documented in this encounter Progress Notes * Judy Hunt [facility] Bat Lathe Operator - 04/28/2023 3:54 PM EST Telemedicine visit: Yes Patient location: HOME. I was not in a hospital or clinic location. After connecting through Document Agility[employer], patient was verified with two unique identifiers. Patient (or authorized legal healthcare representative) was then informed that this was a Telemedicine visit and being conducted confidentially over secure lines. Methods to assure confidentiality were taken. Patient acknowledged consent and understanding of privacy and security of the Telemedicine visit. The patient agreed to participate. [facility] Bat Lathe Operator (MARILYN) documentation: Assisted with telehealth visit this date. Electronically signed by Judy Hunt [facility] Bat Lathe Operator at 05/03/2023 4:19 PM EST * Shama Tang PA-C - 04/28/2023 3:05 PM EST Images from the original note were not included. [facility] Problem Oriented [facility]ing Provider Visit Date: 04/28/2023 Time: 3:10 PM [facility] Sub-Program: Focused Care Management (3-9 months) [facility] Episode Start Date: No linked episodes Assessment and Plan #1 Hip pain, left (Primary) - Gabapentin; Take one tablet by mouth in the morning and at noon and two tablets by mouth before bed. 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 Will allow pt to take one extra gabapentin at bedtime. Prescription sent to pharmacy Scheduled appointments in the next 60 days: Future Appointments-next 60 days Date/Time Provider Specialty Dept Phone 04/29/2023 11:30 AM Amilcar, Nurse [facility] [phone] 05/03/2023 2:00 PM (Arrive by 1:45 PM) Rosemarie Amanda MD Orthopedics [phone] 05/25/2023 4:00 PM Areli Washburn RN [facility] [phone] 06/29/2023 8:30 AM (Arrive by 8:15 AM) Nikole Crenshaw PA-C Cardiology [phone] 06/29/2023 9:00 AM [facility] [phone] 06/29/2023 11:00 AM (Arrive by 10:45 AM) Laurie Herrmann PA-C Otolaryngology [phone] 07/05/2023 3:40 PM (Arrive by 3:25 PM) Ashlie Swift MD Neurology [phone] A total of 65 minutes was spent face to face (via video-based telemedicine if designated as a telemedicine visit) Subjective Subjective Is this a Telemedicine Visit? Yes, Patient location: HOME. I was not in a hospital or clinic location. After connecting through televideo, patient was verified with two unique identifiers. Patient (or authorized legal healthcare representative) was then informed that this was a Telemedicine visit and being conducted confidentially over secure lines. Methods to assure confidentiality were taken. Patient acknowledged consent and understanding of privacy and security of the Telemedicine visit. The patient agreed to participate. Reason For [facility] Visit: Follow-Up Current Concerns: Radha Tong is a 78 year old female seen today for a [facility] provider visit. Pt states that she is doing well today. Last night she slept for the first time in 3 days. She increased hergabapentin yesterday to 600mg TID yesterday. She states that she called into [facility] and spoke with Adenike from intake and was unhappy about the decision to not increase her gabapentin. She states that sheisn't able to control her pain and was hoping to get something different for pain or an increased dose of gabapentin. When "he" didn't approve of the increase, pt admits to yelling at intake nurse. She states that she took it upon herself to increase if but now she is concerned that she will run out. She has no other issues today. Her last admission was to [facility] at the end of December for a fall in her garage with seizure activity. Pt states that she isn't sure how she fell but she laid out in the garage overnight until late the next day when her grandson's girlfriend found her. She tells me that she didn't have a seizure, that she was shivering from being on the concrete floor for so long. She states that this is when she hurt her hip. No fractures found in ED. She has not had any additional falls. Today's concerns are: Paroxysmal atrial fibrillation, benign hypertension with CKD (chronic kidney disease) stage III, biventricular implantable cardioverter- defibrillator in situ, COPD, group C, by GOLD 2017 classification, hypertensive heart and kidney disease with chronic combined systolic and diastolic congestive heart failure and stage 3a chronic kidney disease, type 2 diabetes mellitus with stage 3b chronic kidney disease, with long-term current use of insulin. Additional Review of Systems Respiratory: Positive for shortness of breath (VALLEJO). Cardiovascular: Positive for leg swelling. Musculoskeletal: Positive for arthralgias (left hip pain) and back pain. Neurological: Positive for dizziness and numbness (left foot). Objective Objective Vitals: 04/28/23 1517 Temp: 37.6 C (99.6 F) Pulse: 83 Resp: 20 SpO2: 97% BP: 120/70 BP Readings from Last 3 Encounters: 04/28/23 120/70 04/17/23 104/60 04/04/23 100/50 Last Weights: Wt Readings from Last 3 Encounters: 04/04/23 66.5 kg (146 lb 11.2 oz) 03/24/23 63.5 kg (140 lb) 03/13/23 64.3 kg (141 lb 12 oz) Last BPs: BP Readings from Last 4 Encounters: 04/28/23 120/70 04/17/23 104/60 04/04/23 100/50 03/24/23 100/58 Physical Exam Constitutional: Appearance: Normal appearance. HENT: Head: Normocephalic and atraumatic. Right Ear: External ear normal. Left Ear: External ear normal. Nose: Nose normal. Mouth/Throat: Mouth: Mucous membranes are moist. Eyes: Extraocular Movements: Extraocular movements intact. Cardiovascular: Rate and Rhythm: Normal rate. Rhythm irregular. Pulses: Normal pulses. Heart sounds: Normal heart sounds. No murmur heard. No friction rub. No gallop. Pulmonary: Effort: Pulmonary effort is normal. No respiratory distress. Breath sounds: Normal breath sounds. No stridor. No wheezing, rhonchi or rales. Chest: Chest wall: No tenderness. Abdominal: General: Abdomen is flat. There is no distension. Palpations: Abdomen is soft. There is no mass. Tenderness: There is no abdominal tenderness. There is no guarding. Hernia: No hernia is present. Musculoskeletal: General: No swelling, tenderness, deformity or signs of injury. Cervical back: Neck supple. Right lower leg: Edema (2+ from feet to just below knee) present. Left lower leg: Edema (2+ from feet to just below knee) present. Comments: Decreased internal rotation of the left hip Skin: General: Skin is warm and dry. Capillary Refill: Capillary refill takes less than 2 seconds. Neurological: Mental Status: She is alert and oriented to person, place, and time. Cranial Nerves: No cranial nerve deficit. Sensory: No sensory deficit. Coordination: Coordination normal. Psychiatric: Mood and Affect: Mood normal. Behavior: Behavior normal. Thought Content: Thought content normal. Judgment: Judgment normal. Lab Review: I have reviewed the following results: BMP results Recent Labs Units 04/18/23 1114 03/15/23 0738 03/13/23 1210 SODIUM - [facility] mmol/L 138 140 142 POTASSIUM - [facility] mmol/L 5.2* 5.1 5.4* CHLORIDE - [facility] mmol/L 98 106 108* CO2 - [facility] mmol/L 30 24 25 CREATININE - [facility] mg/dL 1.5* 1.1* 1.0 BUN - [facility] mg/dL 36* 30* 27* Medication Review "Bottles Out" medication review performed today and medication list in EMR updated Shama Tang PA-C 3:10 PM *Communication sent to PCP (via autofax if non[facility]), [facility] Health Care Team members,relevant Specialty Care Physicians* documented in this encounter Miscellaneous Notes * Assessment & Plan Note - Shama Tang PA-C - 05/03/2023 4:17 PM ESTAssociated Problem(s): Type 2 diabetes mellitus with diabetic chronic kidney disease (HCC) DM2 - diet controlled CKD - 3b, GFR 37 * Assessment & Plan Note - Shama Tang PA-C - 05/03/2023 4:16 PM ESTAssociated Problem(s): COPD, group C, by GOLD 2017 classification ([facility]) Current Status : "Stable" for patient / [...] dose Rx Exacerbation plan Solumedrol 40mg IM/IV * Assessment & Plan Note - Shama Tang PA-C - 05/03/2023 4:12 PM ESTAssociated Problem(s): 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 and stage 3 chronic kidney disease (HCC) Current Status : "Stable" for patient / [...] IV Lasix dose: 80 mg BMP Pro-BNP * Assessment & Plan Note - Shama Tang PA-C - 05/03/2023 4:10 PM ESTAssociated Problem(s): Biventricular implantable cardioverter-defibrillator in situ Followed by [facility] cardiology * Assessment & Plan Note - Shama Tang PA-C - 05/03/2023 4:10 PM ESTAssociated Problem(s): Benign hypertension with CKD (chronic kidney disease) stage III (HCC) HTN - Prinivil 20mg daily, Metoprolol 25mg BID * Assessment & Plan Note - Shama Tang PA-C - 05/03/2023 4:09 PM ESTAssociated Problem(s): Atrial fibrillation (HCC) Eliquis 5mg BID * ACP (Advance Care Planning) - Shama Tang PA-C - 04/28/2023 3:56 PM EST Images from the original note were not included. Patient-centered Communication 04/28/2023 The patient/surrogate voluntarily agreed to participate in advance care planning discussion. They were advised that this is a separate service which may incur out of pocket cost in the form of copayment and/or deductibles. Location: Home Individual(s) present for conversation: Patient Decisions Additional Comments Discerning What Matters Most to the Patient: Synopsis SmartLink Most Recent Value Past ~10 years 12/21/2022 Discerning What Matters Most to the Patient Their current SYMPTOMS include: Reduced overall well being 12/21/2022 Reduced overall well being They say their illness has CHANGED THEIR LIFE by: Financial strain/stress 12/21/2022 Financial strain/stress The patient thinks COMPLICATIONS in the future may be: More hospitalizations 12/21/2022 More hospitalizations Was PROGNOSIS discussed? No 12/21/2022 No The patient's HOPES are: Maintain current functional abilities;Avoid further hospitalization;Avoid the assisted 12/21/2022 Maintain current functional abilities;Avoid further hospitalization;Avoid the assisted The patient defines LIVING WELL as: Being active and caring for family 12/21/2022 Being active and caring for family The patient's FEARS/WORRIES about illness are: Being a burden to family;Going back to the hospital;Going to a assisted 12/21/2022 Being a burden to family;Going back to the hospital;Going to a assisted Source: Content from Respecting Choices Program Aligning Care With What Matters Most: No data to display Rationale for Decisions Source: Content from Respecting Choices Program 10 minutes spent in direct [id number] discussion today, Shama Tang PA-C documented in this encounter Plan of Treatment Upcoming Encounters Date Type Department Care Team (Late st Contact Info) Description 05/25/2023 4:00 PM EST Home Visit [facility] [address] [address] Areli Washburn, RN [address] [address] 06/29/2023 8:30 AM EST Office Visit Cardiology, [facility] [address] [facility] [place], [place] [address] Nikole Crenshaw, PAOlivaC [address] [place] [address] 06/29/2023 9:00 AM EST Office Visit Pharmacy, [facility] [address] [facility] [place] [address] [facility] [address] [facility] [place] [address] 06/29/2023 11:00 AM EST Office Visit Otolaryngology [facility] [address] [facility] [place] [address] Laurie Herrmann PA-C [address] [facility] [place] [address] 07/05/2023 1:30 PM EST Office Visit Orthopaedics [facility] [address] [facility] [place] [address] Rosemarie Amanda MD [address] [facility] [place] [address] 07/05/2023 3:40 PM EST Office Visit Neurology [facility] [address] [place] [address] Ashlie Swift MD [address] [place] [address] 08/01/2023 9:30 AM EDT Imaging Vascular Lab, [facility] II 2nd Floor, [place] [address] [facility] [place] [address] 08/09/2023 2:30 PM EDT Office Visit Vascular Surgery, [facility] [address] [facility] [place] [address] Trent Stewart MD [address] [place] [facility] [place] [address] Health Maintenance Due Date Last Done Comments DISCUSS TOBACCO CESSATION (REFER TO SMARTSET #2830) 1947 Alpha-1 Antitrypsin 1965 Diabetic Eye Exam 1965 Diabetic Foot Exam 1965 DXA Scan 09/04/2016 09/04/2013, 09/04/2013 *ADVANCE DIRECTIVE NOT ON FILE 06/09/2019 COVID-19 Vaccine ( season) 2023 11/12/2020, 10/01/2020 Depression Screening 06/02/2023 06/02/2022 HbA1c 09/01/2023 03/02/2023, 12/21, 08/19/2006, Additional history exists GFR 10/17/2023 04/18/2023, 02/20, 03/13/2023, Additional history exists Albumin/Creatinine Ratio 03/02/2024 023, 02/21/2022, 07/23/2019 CKD PHOS USE SMARTSET 34890 03/02/202402/19, 10/07/2022, 02/21/2022, Additional history exists CKD HGB USE SMARTSET 91184 03/15/202403/15, 03/02/2023, 03/02/2023, Additional history exists O2 [...] as of this encounter Visit Diagnoses Diagnosis Hip pain, left- Primary Pain in joint, pelvic region and thigh Paroxysmal atrial fibrillation (HCC) Atrial fibrillation Biventricular implantable cardioverter-defibrillator in situ COPD, group C, by GOLD 2017 classification (HCC) 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 and stage 3a chronic kidney disease (HCC) Type 2 diabetes mellitus with stage 3b chronic kidney disease, without long-term current use of insulin (HCC) documented in this encounter Advance Directives Latest [...] the patient have Health Care Power of Hygiene Teacher? No Healthcare Agents on File Name Relationship Healthcare Agent Relationshi p Communication Lacy Tong Adult Child Health Care Repr esentative (appointed verbally by patient or by statute hierarchy) Care Teams Ski Edge Painter Relationship Specialty Start Date End Date Roman Ennis III, MD [address] [place] [address] PCP - General Family Medicine 06/28/18 documented as of this encounter
--- OUTSIDE RECORDS SUMMARY | 2023-06-29 05:26 | External Medical Summary | Summary of Care ---
Author Name Unknown Organization [facility] Address [address] [place] [place] [address] Phone [phone] Care Team Providers Care Environmental Engineering Technician Name Role Phone Loli NORWOOD MD, Roman Barraza Primary Care Provider [phone] Reason for Visit * Reason Onset Date Comments [facility]: Maintenance 04/29/2023 Encounter Details Date Type Department Care Team (Late st Contact Info) Description 04/29/2023 11:30 AM EST Scheduled Telephone [facility], [facility] [address] [facility] [place] [address] [facility], Nurse [facility] [address] [facility] [place] [address] Allergies Active Allergy Reactions Criticality Noted Date Comments Isosorbide Mononitrate 12/24/2007 Severe headaches Nsaids 05/29/2002 Tramadol Hcl Nausea/vomiting Low 01/09/2008 UGI distress documented as of this encounter (statuses as of 04/29/2023) Medications Medication Sig Dispensed Refills Start Date [...] as of this encounter (statuses as of 04/29/2023) Active Problems Problem Noted Date Diagnosed Date [...] /min) 05/11/2018 Coronary artery disease invo lving [place] coronary artery of [place] heart without angina pectoris 05/08/2018 Anxiety state [...] MYOCARDIAL INFARCT 12/11/2008 Overview: Modified by Acute [place] Protocol #5. [facility] right coronary bare metal stents S/P angioplasty with stent 09/07/2006 History of tobacco use documented as of this encounter (statuses as of 04/29/2023) Resolved Problems Problem Noted Date Diagnosed Date [...] for Patients with Cardiovascular Disease Project #: [id number] PI: Peyton Conn MD [phone] GENOMICS CARDIO RESEARCH OTHER*[id number] 01/15/2007 06/28/2016 Overview: Renamed Per Clinical Trials Billing Project. Study Title: Genomic Markers for Patients with Cardiovascular Disease Project #: [id number] PI: Peyton Conn MD [phone] LV (left ventricular) mural thrombus 10/30/2006 12/28/2017 Tobacco use disorder 09/07/2006 010 Acute inferior myocardial infarction 08/19/2006 12/11/2008 Overview: Modified by Acute [place] Protocol #5. [facility] right coronary bare metal stents EXAMINATION OF PARTICIPANT I N CLINICAL TRIAL - HORIZONS 08/19/2006 09/04/2009 Overview: Renamed Per Clinical Trials Billing Project. [facility] AMI clinical trial 263 Single blind trial comparing heparin and IIB/IIIA with bivalirudin, and Taxus vs bare metal stent. Patient Follow-up for 5 years Wood Type Cutter: Trent Verduzco [phone] [facility] Clinical Trial*[id number] 08/19/2006 09/08/2014 Overview: Renamed Per Clinical Trials Billing Project. [facility] AMI clinical trial 263 Single blind trial comparing heparin and IIB/IIIA with bivalirudin, and Taxus vs bare metal stent. Patient Follow-up for 5 years Wood Type Cutter: Trent Steeleenship [phone] Menopause 08/29/2002 02/23/2017 LOC PRIM [id number] 05/29/200206/23 Dyslipidemia, goal to be determined 05/29/2002 05/07/2009 Overview: Per Lipid Taxonomy. 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 02/23/2017 documented as of this encounter (statuses as of 04/29/2023) Immunizations Name Administration Dates Next Due COVID-19 [...] encounter Miscellaneous Notes * Telephone Encounter - Precious Frederick LPN - 04/29/2023 11:39 AM EST [facility] Telephonic Nurse Follow-Up Call [facility] Subprogram: Focused Care Management (3-9 months) [...] to pull from supply Disposition: Routed to [facility] and/or [facility] Care Team for further advice Future Visits Scheduled: Future Appointments-next 60 days Date/Time Provider Specialty Dept Phone 05/03/2023 2:00 PM (Arrive by 1:45 PM) Rosemarie Amanda MD Orthopedics [phone] 05/25/2023 4:00 PM Areli Washburn RN [facility] [phone] 06/29/2023 8:30 AM (Arrive by 8:15 AM) Nikole Crenshaw PA-C Cardiology [phone] 06/29/2023 9:00 AM [facility] [phone] 06/29/2023 11:00 AM (Arrive by 10:45 AM) Laurie Herrmann PA-C Otolaryngology [phone] 07/05/2023 3:40 PM (Arrive by 3:25 PM) Ashlie Swift MD Neurology [phone] Precious Frederick LPN documented in this encounter Plan of Treatment Upcoming Encounters Date Type Department Care Team (Late st Contact Info) Description 05/03/2023 2:00 PM EST Office Visit Orthopaedics [facility] [address] [place] [address] Rosemarie Amanda MD [address] [place] [address] 05/25/2023 4:00 PM EST Home Visit [facility] [address] [place] [address] Areli Washburn RN [address] [place] [address] 06/29/2023 8:30 AM EST Office Visit Cardiology, [facility] [address] [place] [address] Nikole Crenshaw PA-C [address] [place] [address] 06/29/2023 9:00 AM EST Office Visit Pharmacy, [facility] [address] [place] [address] [facility] [address] [place] [address] 06/29/2023 11:00 AM EST Office Visit Otolaryngology [facility] [address] [place] [address] Laurie Herrmann PA-C [address] [place] [address] 07/05/2023 3:40 PM EST Office Visit Neurology [facility] [address] [facility] [address] [place] [address] Ashlie Swift MD [address] [facility] [place] [address] Health Maintenance Due Date Last Done Comments [...] 023, 02/21/2022, 07/23/2019 CKD PHOS USE SMARTSET 87741 03/02/202402/19, 10/07/2022, 02/21/2022, Additional history exists CKD HGB USE SMARTSET 51626 03/15/202403/15, 03/02/2023, 03/02/2023, Additional history exists O2 [...] the patient have Health Care Power of Cake Stripper? No Healthcare Agents on File Name Relationship Healthcare Agent Relationshi p Communication Lacy Tong Adult Child Health Care Repr esentative (appointed verbally by patient or by statute hierarchy) Care Teams Environmental Engineering Technician Relationship Specialty Start Date End Date Roman Ennis III, MD [address] [facility] [place] [place] [address] PCP - General Family Medicine 06/28/18 documented as of this encounter
--- OUTSIDE RECORDS SUMMARY | 2023-06-29 05:26 | External Medical Summary | Summary of Care ---
Author Name Unknown Organization [facility] Address [address] [facility] [place] [address] Phone [phone] Care Team Providers Care Light Industrial Name Role Phone Loli NORWOOD MD, Roman Barraza Primary Care Provider [phone] Reason for Visit * Reason Onset Date Comments [facility]: Maintenance 04/29/2023 Encounter Details Date Type Department Care Team (Late st Contact Info) Description 04/29/2023 11:30 AM EST Scheduled Telephone [facility], [facility] 132 [facility] [place] [address] [facility], Nurse [facility] [address] [employer] [place] [address] Allergies Active Allergy Reactions Criticality Noted Date [...] /min) 05/11/2018 Coronary artery disease invo lving [place] coronary artery of [place] heart without angina pectoris 05/08/2018 Anxiety state [...] MYOCARDIAL INFARCT 12/11/2008 Overview: Modified by Acute [place] Protocol #5. [facility] right coronary bare metal [...] for Patients with Cardiovascular Disease Project #: [id number] PI: Peyton Conn MD [phone] GENOMICS CARDIO RESEARCH OTHER*[id number] 01/15/2007 06/28/2016 Overview: Renamed Per Clinical Trials Billing Project. Study Title: Genomic Markers for Patients with Cardiovascular Disease Project #: [id number] PI: Peyton Conn MD [phone] LV (left ventricular) mural thrombus 10/30/2006 12/28/2017 Tobacco use disorder 09/07/2006 010 Acute inferior myocardial infarction 08/19/2006 12/11/2008 Overview: Modified by Acute [place] Protocol #5. [facility] right coronary bare metal stents EXAMINATION OF PARTICIPANT I N CLINICAL TRIAL - HORIZONS 08/19/2006 09/04/2009 Overview: Renamed Per Clinical Trials Billing Project. [facility] AMI clinical trial 263 Single blind trial comparing heparin and IIB/IIIA with bivalirudin, and Taxus vs bare metal stent. Patient Follow-up for 5 years Mill Washer: Trent Verduzco [phone] [facility] Clinical Trial*[id number] 08/19/2006 09/08/2014 Overview: Renamed Per Clinical Trials Billing Project. [facility] AMI clinical trial 263 Single blind trial comparing heparin and IIB/IIIA with bivalirudin, and Taxus vs bare metal stent. Patient Follow-up for 5 years Mill Washer: Trent Steeleenship [phone] Menopause 08/29/2002 02/23/2017 LOC PRIM [id number] 05/29/200206/23 Dyslipidemia, goal to be determined 05/29/2002 [...] [facility] Telephonic Nurse Follow-Up Call [facility] Subprogram: Focused Care Management (3-9 months) [...] to pull from supply Disposition: Routed to [facility] and/or [facility] Care Team for further advice Future Visits Scheduled: Future Appointments-next 60 days Date/Time Provider Specialty Dept Phone 05/03/2023 2:00 PM (Arrive by 1:45 PM) Rosemarie Amanda MD Orthopedics [phone] 05/25/2023 4:00 PM Areli Washburn RN [facility] [phone] 06/29/2023 8:30 AM (Arrive by 8:15 AM) Nikole Crenshaw PA-C Cardiology [phone] 06/29/2023 9:00 AM [facility] [phone] 06/29/2023 11:00 AM (Arrive by 10:45 AM) Laurie Herrmann PA-C Otolaryngology [phone] 07/05/2023 3:40 PM (Arrive by 3:25 PM) Ashlie Swift MD Neurology [phone] Precious Frederick LPN documented in this encounter Plan of Treatment Upcoming Encounters Date Type Department Care Team (Late st Contact Info) Description 05/03/2023 2:00 PM EST Office Visit Orthopaedics [facility] [address] [place] [address] Rosemarie Amanda MD [address] [place] [address] 05/25/2023 4:00 PM EST Home Visit [facility] [address] [place] [address] Areli Washburn RN [address] [place] [address] 06/29/2023 8:30 AM EST Office Visit Cardiology, [facility] [address] [place] [address] Nikole Crenshaw PA-C [address] [place] [address] 06/29/2023 9:00 AM EST Office Visit Pharmacy, [facility] [address] [place] [address] [facility] [address] [place] [address] 06/29/2023 11:00 AM EST Office Visit Otolaryngology [facility] [address] [place] [address] Laurie Herrmann PA-C [address] [place] [address] 07/05/2023 3:40 PM EST Office Visit Neurology [facility] [address] [facility] [address] [place] [address] Ashlie Swift MD [address] [facility] [place] [address] Health Maintenance Due Date Last Done Comments [...] 023, 02/21/2022, 07/23/2019 CKD PHOS USE SMARTSET 07087 03/02/202402/19, 10/07/2022, 02/21/2022, Additional history exists CKD HGB USE SMARTSET 47992 03/15/202403/15, 03/02/2023, 03/02/2023, Additional history exists O2 [...] the patient have Health Care Power of Tnt Powder Worker? No Healthcare Agents on File Name Relationship Healthcare Agent Relationshi p Communication Lacy Tong Adult Child Health Care Repr esentative (appointed verbally by patient or by statute hierarchy) Care Teams Light Industrial Relationship Specialty Start Date End Date Roman Ennis III, MD [address] [facility] [place] [address] PCP - General Family Medicine 06/28/18 documented as of this encounter
--- OUTSIDE RECORDS SUMMARY | 2023-06-29 05:26 | External Medical Summary | Summary of Care ---
Author Name Unknown Organization [facility] Address [address] [place] [facility] [place] [address] Phone [phone] Care Team Providers Care Media Analyst Name Role Phone Loli NORWOOD MD, Roman Barraza Primary Care Provider [phone] Reason for Visit * Reason Onset Date Comments [facility]: Maintenance 04/29/2023 Encounter Details Date Type Department Care Team (Late st Contact Info) Description 04/29/2023 11:30 AM EST Scheduled Telephone [facility], [facility] [address] [facility] [place] [address] [facility], Nurse [facility] [address] [facility] [place] [address] Allergies Active Allergy Reactions Criticality Noted Date [...] /min) 05/11/2018 Coronary artery disease invo lving [place] coronary artery of [place] heart without angina pectoris 05/08/2018 Anxiety state [...] Overview: Modified by Acute [place] Protocol #5. [facility] right coronary bare metal [...] for Patients with Cardiovascular Disease Project #: [id number] PI: Peyton Conn MD [phone] GENOMICS CARDIO RESEARCH OTHER*[id number] 01/15/2007 06/28/2016 Overview: Renamed Per Clinical Trials Billing Project. Study Title: Genomic Markers for Patients with Cardiovascular Disease Project #: [id number] PI: Peyton Conn MD [phone] LV (left ventricular) mural thrombus 10/30/2006 12/28/2017 Tobacco use disorder 09/07/2006 010 Acute inferior myocardial infarction 08/19/2006 12/11/2008 Overview: Modified by Acute [place] Protocol #5. [facility] right coronary bare metal stents EXAMINATION OF PARTICIPANT I N CLINICAL TRIAL - HORIZONS 08/19/2006 09/04/2009 Overview: Renamed Per Clinical Trials Billing Project. [facility] AMI clinical trial 263 Single blind trial comparing heparin and IIB/IIIA with bivalirudin, and Taxus vs bare metal stent. Patient Follow-up for 5 years Faculty Member: Trent Verduzco [phone] [facility] Clinical Trial*[id number] 08/19/2006 09/08/2014 Overview: Renamed Per Clinical Trials Billing Project. [facility] AMI clinical trial 263 Single blind trial comparing heparin and IIB/IIIA with bivalirudin, and Taxus vs bare metal stent. Patient Follow-up for 5 years Faculty Member: Trent Verduzco [phone] Menopause 08/29/2002 02/23/2017 LOC PRIM [id number] 05/29/200206/23 Dyslipidemia, goal to be determined 05/29/2002 [...] encounter Miscellaneous Notes * Telephone Encounter - Manny Roman PA-C - 05/01/2023 11:50 AM EST [facility] Phone Encounter Thank you [...] week. Also please note that this patient [facility] enrollment status was resolved April 03, 2023. I spoke with Carmen Ivey, nurse supervisor case loading and she states that this resolved status is mistake. The patient is to be actively enrolled in [facility]. This note was prepared with the help of fluency and if there is any mis-spelled words , sentences or something which doesn't represent the content of the subject that could be technical error and please refer to the author for clarification. * Telephone Encounter - Yoly Precious B, EDITA - 04/29/2023 11:39 AM EST [facility] Telephonic Nurse Follow-Up Call [facility] Subprogram: Focused Care Management (3-9 months) [...] to pull from supply Disposition: Routed to [facility] and/or [facility] Care Team for further advice Future Visits Scheduled: Future Appointments-next 60 days Date/Time Provider Specialty Dept Phone 05/03/2023 2:00 PM (Arrive by 1:45 PM) Rosemarie Amanda MD Orthopedics [phone] 05/25/2023 4:00 PM Areli Washburn RN [facility] [phone] 06/29/2023 8:30 AM (Arrive by 8:15 AM) Nikole Crenshaw PA-C Cardiology [phone] 06/29/2023 9:00 AM [facility] [phone] 06/29/2023 11:00 AM (Arrive by 10:45 AM) Laurie Herrmann PA-C Otolaryngology [phone] 07/05/2023 3:40 PM (Arrive by 3:25 PM) Ashlie Swift MD Neurology [phone] Precious Frederick LPN documented in this encounter Plan of Treatment Upcoming Encounters Date Type Department Care Team (Late st Contact Info) Description 05/03/2023 2:00 PM EST Office Visit Orthopaedics [facility] [address] [place] [address] Rosemarie Amanda MD [address] [place] [address] 05/25/2023 4:00 PM EST Home Visit [facility], [facility] [place] [address] Areli Washburn, RN [address] [place] [address] 06/29/2023 8:30 AM EST Office Visit Cardiology, [facility] [address] [facility] [place] [address] Nikole Crenshaw, PA-C 132 [facility] [place] [address] 06/29/2023 9:00 AM EST Office Visit Pharmacy, [facility] 132 [facility] [place] [address] [facility] 132 [facility] [place] [address] 06/29/2023 11:00 AM EST Office Visit Otolaryngology [facility] [address] [facility] [place] [address] Laurie Herrmann PAOlivaC [facility] [place] [address] 07/05/2023 3:40 PM EST Office Visit Neurology [facility] [address] [place] [address] Ashlie Swift MD [address] [place] [address] Health Maintenance Due Date Last Done Comments [...] 023, 02/21/2022, 07/23/2019 CKD PHOS USE SMARTSET 11435 03/02/202402/19, 10/07/2022, 02/21/2022, Additional history exists CKD HGB USE SMARTSET 98250 03/15/202403/15, 03/02/2023, 03/02/2023, Additional history exists O2 [...] the patient have Health Care Power of Mule Tender? No Healthcare Agents on File Name Relationship Healthcare Agent Relationshi p Communication Lacy Tong Adult Child Health Care Repr esentative (appointed verbally by patient or by statute hierarchy) Care Teams Media Analyst Relationship Specialty Start Date End Date Roman Ennis III, MD [address] [place] [address] PCP - General Family Medicine 06/28/18 documented as of this encounter
--- OUTSIDE RECORDS SUMMARY | 2023-06-29 05:27 | External Medical Summary | Summary of Care ---
Author Name Unknown Organization [facility] Address [address] [facility] [place] [address] Phone [phone] Care Team Providers Care Project Asst Name Role Phone Loli NORWOOD MD, Roman Braraza Primary Care Provider [phone] Reason for Visit * Reason Onset Date Comments [facility]: Maintenance 04/29/2023 Encounter Details Date Type Department Care Team (Late st Contact Info) Description 04/29/2023 11:30 AM EST Scheduled Telephone [facility], [facility] 132 [facility] [place] [address] [facility], Nurse [facility] 132 [facility] [place] [address] Allergies Active Allergy Reactions Criticality Noted Date [...] /min) 05/11/2018 Coronary artery disease invo lving [place] coronary artery of [place] heart without angina pectoris 05/08/2018 Anxiety state [...] MYOCARDIAL INFARCT 12/11/2008 Overview: Modified by Acute [place] Protocol #5. [facility] right coronary bare metal stents S/P angioplasty [...] for Patients with Cardiovascular Disease Project #: [id number] PI: Peyton Conn MD [phone] GENOMICS CARDIO RESEARCH OTHER*[id number] 01/15/2007 06/28/2016 Overview: Renamed Per Clinical Trials Billing Project. Study Title: Genomic Markers for Patients with Cardiovascular Disease Project #: [id number] PI: Peyton Conn MD [phone] LV (left ventricular) mural thrombus 10/30/2006 12/28/2017 Tobacco use disorder 09/07/2006 010 Acute inferior myocardial infarction 08/19/2006 12/11/2008 Overview: Modified by Acute [place] Protocol #5. [facility] right coronary bare metal stents EXAMINATION OF PARTICIPANT I N CLINICAL TRIAL - HORIZONS 08/19/2006 09/04/2009 Overview: Renamed Per Clinical Trials Billing Project. [facility] AMI clinical trial 263 Single blind trial comparing heparin and IIB/IIIA with bivalirudin, and Taxus vs bare metal stent. Patient Follow-up for 5 years Electrical Tech/Project Manager: Trent Verduzco [phone] [facility] Clinical Trial*[id number] 08/19/2006 09/08/2014 Overview: Renamed Per Clinical Trials Billing Project. [facility] AMI clinical trial 263 Single blind trial comparing heparin and IIB/IIIA with bivalirudin, and Taxus vs bare metal stent. Patient Follow-up for 5 years Electrical Tech/Project Manager: Trent Steeleenship [phone] Menopause 08/29/2002 02/23/2017 LOC PRIM [id number] 05/29/200206/23 Dyslipidemia, goal to be determined 05/29/2002 [...] [facility] Telephonic Nurse Follow-Up Call [facility] Subprogram: Focused Care Management (3-9 months) [...] to pull from supply Disposition: Routed to [facility] and/or [facility] Care Team for further advice Future Visits Scheduled: Future Appointments-next 60 days Date/Time Provider Specialty Dept Phone 05/03/2023 2:00 PM (Arrive by 1:45 PM) Rosemarie Amanda MD Orthopedics [phone] 05/25/2023 4:00 PM Areli Washburn RN [facility] [phone] 06/29/2023 8:30 AM (Arrive by 8:15 AM) Nikole Crenshaw PA-C Cardiology [phone] 06/29/2023 9:00 AM [facility] [phone] 06/29/2023 11:00 AM (Arrive by 10:45 AM) Laurie Herrmann PA-C Otolaryngology [phone] 07/05/2023 3:40 PM (Arrive by 3:25 PM) Ashlie Swift MD Neurology [phone] Precious Frederick LPN documented in this encounter Plan of Treatment Upcoming Encounters Date Type Department Care Team (Late st Contact Info) Description 05/03/2023 2:00 PM EST Office Visit Orthopaedics [facility] [address] [place] [address] Rosemarie Amanda MD [address] [place] [address] 05/25/2023 4:00 PM EST Home Visit [facility] [address] [place] [address] Areli Washburn RN [address] [place] [address] 06/29/2023 8:30 AM EST Office Visit Cardiology, [facility] [address] [place] [address] Nikole Crenshaw PA-C [address] [place] [address] 06/29/2023 9:00 AM EST Office Visit Pharmacy, [facility] [address] [place] [address] [facility] [address] [place] [address] 06/29/2023 11:00 AM EST Office Visit Otolaryngology [facility] [address] [place] [address] Laurie Herrmann PA-C [address] [place] [address] 07/05/2023 3:40 PM EST Office Visit Neurology [place] [address] [facility] [address] [place] [address] Ashlie Swift MD [address] [facility] [place] [address] Health Maintenance Due Date Last Done Comments [...] 023, 02/21/2022, 07/23/2019 CKD PHOS USE SMARTSET 05683 03/02/202402/19, 10/07/2022, 02/21/2022, Additional history exists CKD HGB USE SMARTSET 78472 03/15/202403/15, 03/02/2023, 03/02/2023, Additional history exists O2 [...] the patient have Health Care Power of Telecom Assistant? No Healthcare Agents on File Name Relationship Healthcare Agent Relationshi p Communication Lacy Tong Adult Child Health Care Repr esentative (appointed verbally by patient or by statute hierarchy) Care Teams Project Asst Relationship Specialty Start Date End Date Roman Ennis III, MD [address] [facility] [place] [address] PCP - General Family Medicine 06/28/18 documented as of this encounter
--- OUTSIDE RECORDS SUMMARY | 2023-06-29 05:27 | External Medical Summary | Summary of Care ---
Author Name Unknown Organization [facility] Address [address] [facility] [place] [address] Phone [phone] Care Team Providers Care Cash Poster Name Role Phone Loli NORWOOD MD, Roman Barraza Primary Care Provider [phone] Reason for Visit * Reason Onset Date Comments [facility]: Acute 04/27/2023 Encounter Details Date Type Department Care Team (Late st Contact Info) Description 04/27/2023 Telephone [facility], [facility] [address] [facility] [place] [address] [facility], Nurse [facility] [address] [place] [address] [facility]: Acute Allergies Active Allergy Reactions Criticality Noted Date Comments Isosorbide Mononitrate 12/24/2007 Severe headaches Nsaids 05/29/2002 Tramadol Hcl Nausea/vomiting Low 01/09/2008 UGI distress documented as of this encounter (statuses as of 04/27/2023) Medications Medication Sig Dispensed Refills Start Date [...] as of this encounter (statuses as of 04/27/2023) Active Problems Problem Noted Date Diagnosed Date Atrial fibrillation 02/27/2023 Other disorders of phosphorus [...] /min) 05/11/2018 Coronary artery disease invo lving [place] coronary artery of [place] heart without angina pectoris 05/08/2018 Anxiety state [...] MYOCARDIAL INFARCT 12/11/2008 Overview: Modified by Acute CT Protocol #5. [facility] right coronary bare metal stents S/P angioplasty with stent 09/07/2006 History of tobacco use documented as of this encounter (statuses as of 04/27/2023) Resolved Problems Problem Noted Date Diagnosed Date [...] for Patients with Cardiovascular Disease Project #: [id number] PI: Peyton Conn MD [phone] [employer] CARDIO RESEARCH OTHER*[id number] 01/15/2007 06/28/2016 Overview: Renamed Per Clinical Trials Billing Project. Study Title: Genomic Markers for Patients with Cardiovascular Disease Project #: [id number] PI: Peyton Conn MD [phone] LV (left ventricular) mural thrombus 10/30/2006 12/28/2017 Tobacco use disorder 09/07/2006 010 Acute inferior myocardial infarction 08/19/2006 12/11/2008 Overview: Modified by Acute CT Protocol #5. [facility] right coronary bare metal stents EXAMINATION OF PARTICIPANT I N CLINICAL TRIAL - HORIZONS 08/19/2006 09/04/2009 Overview: Renamed Per Clinical Trials Billing Project. [facility] AMI clinical trial 263 Single blind trial comparing heparin and IIB/IIIA with bivalirudin, and Taxus vs bare metal stent. Patient Follow-up for 5 years Spar Cap Beveler: Trent Verduzco [phone] [facility] Clinical Trial*[id number] 08/19/2006 09/08/2014 Overview: Renamed Per Clinical Trials Billing Project. [facility] AMI clinical trial 263 Single blind trial comparing heparin and IIB/IIIA with bivalirudin, and Taxus vs bare metal stent. Patient Follow-up for 5 years Spar Cap Beveler: Trent Verduzco [phone] Menopause 08/29/2002 02/23/2017 LOC PRIM [id number] 05/29/200206/23 Dyslipidemia, goal to be determined 05/29/2002 05/07/2009 Overview: Per Lipid Taxonomy. 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 02/23/2017 documented as of this encounter (statuses as of 04/27/2023) Immunizations Name Administration Dates Next Due COVID-19 [...] 06/02/2022 Hunger Vital Sign Answer Date Recorded Worried About Running Out of Food in the Last Ye ar Never true 01/31/2019 Ran Out of Food in the Last Year Never true 01/31/2019 Sex and Gender Information Value Date Recorded Sex Assigned at Not on file Gender Identity Not on file Sexual Orientation Not on file Job Start Date Occupation Industry Not on file Not on file Not on file documented as of this encounter Miscellaneous Notes * Telephone Encounter - Adenike De Leon RN - 04/27/2023 5:23 PM EST Call to patient to make her aware of provider's recommendations. He was to increase Gabapentin but max dose is 600 mg. Will address after evaluation tomorrow. Telemed scheduled for tomorrow. Patient not happy, yelling in phone. Also, instructed her on s/s of zoster for look for. Adenike De Leon. RN [facility] commercial front load driver [phone] * Telephone Encounter - Manny Roman PA-C - 04/27/2023 4:24 PM EST [facility] Phone Encounter Thank you for your assistance in the care of this patient today. 78 year old year old female patient who presents today with complaint of increased neuropathy on her foot. She describes the pain as a burning sensation on the top skin of the foot that is worse thanher typical neuropathy she denies any erythema rash or swelling associated with the it developed the proximally 3 days ago. She also notes that the pain is worse when she is at rest and better with walking. She offers no other complaints. Assessment without seeing the patient involves concern for zoster associated pain as the pain is on the surface of the foot and not deep in the foot. Patient does have neuropathy but this do does notes not appear to me to be a typical neuropathy. Lastly with the pain relieved with activity and increased with rest 1 could consider clarification. Again though the pains on the surface of the skin of the foot. Also even though clarification could occur in the foot it is less likely. Recommendations: The patient is currently taking 300 mg of Neurontin 3 times a day. We can try increasing it by 300 in the morning and 300 in the evening in the short term to see if there is any improvement in the pain. The patient was instructed of signs and symptoms of zoster to look for. We will schedule the patient tomorrow for visit. So physical exam can be done to help delineate more what may be going on Note: I reviewed the profile on Neurontin and unfortunately the maximum dose this patient can have a day is 600 mg Age: 18 - 274 years (6,570 - 99,999 days), Route: Oral, Creatinine Clearance: 15 - 29.9999 mL/min, Dose Type: Maintenance Dose <=600 mg We will have to review this tomorrow when we see the patient. As it would be no immediate change inthe patient would not be able get in the wants night I think it i best to review all the avenues that we have tomorrow during the visit. This note was prepared with the help of fluency and if there is any mis-spelled words , sentences or something which doesn't represent the content of the subject that could be technical error and please refer to the author for clarification. * Telephone Encounter - Adenike De Leon RN - 04/27/2023 10:43 AM EST [facility] commercial front load driver Acute Call Date: 04/27/2023 Time: 10:43 AM Name: Radha Tong : 1945 Caller: Radha Relationship to Self No chief complaint on file. HPI: Radha Tong is a 78 year old female that is calling [facility] Intake to report Neuropathy. Nursing Assessment: Patient with Neuropathy pain in top of L foot Neuropathy pain started a week ago but has increased It is a burning pain Described as "burning like hell if that's what hell is It has keep her up for past 3 night The only time it does not burn is when she is walking Swelling to foot (swelling is chronic) Denies redness, blisters, heat, or trauma She elevates it but still guzman Is on Gabapentin 300 mg 3 x day Pain Denies pain Baseline Assessment Able to performing ADLs at baseline (walking, daily tasks, etc.): No Unable to sleep Chief Complaint is related to a chronic condition: Yes Chronic Condition: Neuropathy Chief Complaint is a change in baseline: Yes, Burning Patient prescribed oxygen? No Patient has been ordered DME equipment (assistive devices, respiratory equipment, etc.): No Medication Reconciliation: (See medication list) Received flu shot this season: Yes Taking medication as ordered: Yes Medications ordered/taking to treat reason for call: No Heart failure symptoms: No COPD exacerbation symptoms: No Reinforcement Education: Take all medications as ordered Drink fluids to stay hydrated Continue with TEDs Elevations of legs Ice to top of foot Treatment/Plan: (need to report) Level of call: Non-Acute Recommended treatment plan: PCs scheduled Clinical advice given over the phone Routing to care team to review and make recommendations if warranted. Call back instructions provided to patient. Adenike De Leon. LISA [facility] commercial front load driver [phone] documented in this encounter Plan of Treatment Upcoming Encounters Date Type Department Care Team (Late st Contact Info) Description 04/28/2023 2:30 PM EST Scheduled Telephone [facility], [facility] [address] [place] [address] Coordinator, [facility] [address] [place] [address] 04/28/2023 3:00 PM EST Telemedicine [facility], [facility] [address] [place] [address] Shama Tang PA-C [address] [facility] [address] Ciara Driver, Community Health Element Setter [address] [facility] [place] [address] 04/29/2023 11:30 AM EST Scheduled Telephone [facility], [facility] [address] [place] [address] [facility], [facility] [address] [facility] [place] [address] 05/03/2023 2:00 PM EST Office Visit Orthopaedics [facility] [address] [place] [address] Rosemarie Amanda MD [address] [facility] [place] [address] 05/25/2023 4:00 PM EST Home Visit [facility], [facility] [address] [place] [address] Areli Washburn RN [address] [facility] [place] [address] 06/29/2023 8:30 AM EST Office Visit Cardiology, [facility] [address] [facility] [facility] [place] [address] Nikole Crenshaw PA-C [address] [place] [address] 06/29/2023 9:00 AM EST Office Visit Pharmacy, [facility] [address] [facility] [place] [address] [facility] [address] [facility] [place] [address] 06/29/2023 11:00 AM EST Office Visit Otolaryngology [facility] [address] [place] [address] Laurie Herrmann PA-C [address] [place] [address] 07/05/2023 3:40 PM EST Office Visit Neurology [facility] [address] [place] [address] Ashlie Swift MD [address] [facility] [place] [address] Health Maintenance Due Date Last Done Comments DISCUSS TOBACCO CESSATION (REFER TO SMARTSET #8758) 1945 Alpha-1 Antitrypsin 1965 Diabetic Eye Exam 1965 Diabetic Foot Exam 1965 DXA Scan 09/04/2016 09/04/2013, 09/04/2013 *ADVANCE DIRECTIVE NOT ON FILE 06/09/2019 COVID-19 Vaccine ( season) 2023 11/12/2020, 10/01/2020 Depression Screening 06/02/2023 06/02/2022 HbA1c 09/01/2023 03/02/2023, 12/21, 08/19/2006, Additional history exists GFR 10/17/2023 04/18/2023, 02/20, 03/13/2023, Additional history exists Albumin/Creatinine Ratio 03/02/2024 023, 02/21/2022, 07/23/2019 CKD PHOS USE SMARTSET 37564 03/02/202402/19, 10/07/2022, 02/21/2022, Additional history exists CKD HGB USE SMARTSET 69197 03/15/202403/15, 03/02/2023, 03/02/2023, Additional history exists O2 ASSESSMENT COMPLETED IN PAST YEAR FOR COPD 04/17/2024 04/17/2023 DTaP,Tdap,and Td Vaccines (4 - Td or [...] the patient have Health Care Power of Garage Worker? No Healthcare Agents on File Name Relationship Healthcare Agent [facility] Communication Lacy Tong Adult Child Health Care Repr esentative (appointed verbally by patient or by statute hierarchy) Care Teams Cash Poster Relationship Specialty Start Date End Date Roman Ennis III, MD [address] [facility] [place] [address] PCP - General Family Medicine 06/28/18 documented as of this encounter
--- OUTSIDE RECORDS SUMMARY | 2023-06-29 05:27 | External Medical Summary | Summary of Care ---
Author Name Unknown Organization [facility] Address [address] [facility] [place] [address] Phone [phone] Care Team Providers Care Community Service Organization Director Name Role Phone Loli NORWOOD MD, Roman Barraza Primary Care Provider [phone] Reason for Visit * Reason Onset Date Comments [facility]: Acute 04/27/2023 Encounter Details Date Type Department Care Team (Late st Contact Info) Description 04/27/2023 Telephone [facility], [facility] [address] [facility] [place] [address] [facility], Nurse [facility] [address] [facility] [place] [address] [facility]: Acute Allergies Active Allergy [...] /min) 05/11/2018 Coronary artery disease invo lving [place] coronary artery of [place] heart without angina pectoris 05/08/2018 Anxiety state [...] MYOCARDIAL INFARCT 12/11/2008 Overview: Modified by Acute [place] Protocol #5. [facility] right coronary bare metal stents S/P angioplasty [...] for Patients with Cardiovascular Disease Project #: [id number] PI: Peyton Conn MD [phone] [employer] CARDIO RESEARCH OTHER*[id number] 01/15/2007 06/28/2016 Overview: Renamed Per Clinical Trials Billing Project. Study Title: Genomic Markers for Patients with Cardiovascular Disease Project #: [id number] PI: Peyton Conn MD [phone] LV (left ventricular) mural thrombus 10/30/2006 12/28/2017 Tobacco use disorder 09/07/2006 010 Acute inferior myocardial infarction 08/19/2006 12/11/2008 Overview: Modified by Acute [place] Protocol #5. [facility] right coronary bare metal stents EXAMINATION OF PARTICIPANT I N CLINICAL TRIAL - HORIZONS 08/19/2006 09/04/2009 Overview: Renamed Per Clinical Trials Billing Project. [facility] AMI clinical trial 263 Single blind trial comparing heparin and IIB/IIIA with bivalirudin, and Taxus vs bare metal stent. Patient Follow-up for 5 years Site Interpreter: Trent Verduzco [phone] [facility] Clinical Trial*[id number] 08/19/2006 09/08/2014 Overview: Renamed Per Clinical Trials Billing Project. [facility] AMI clinical trial 263 Single blind trial comparing heparin and IIB/IIIA with bivalirudin, and Taxus vs bare metal stent. Patient Follow-up for 5 years Site Interpreter: Trent Verduzco [phone] Menopause 08/29/2002 02/23/2017 LOC PRIM [id number] 05/29/200206/23 Dyslipidemia, goal to be determined 05/29/2002 05/07/2009 Overview: Per Lipid Taxonomy. FAM HX-DIABETES MELLITUS 05/29/200209/2016 cystocoele 09/29/2017 Prolapse of vaginal celetse Overview: ICD-10 update of inactive term LEFT [...] Roman PA-C - 04/27/2023 4:24 PM EST [facility] Phone Encounter [...] Leon RN - 04/27/2023 10:43 AM EST [facility] resident programs assistant Acute Call Date: 04/27/2023 Time: 10:43 AM Name: Radha Tong : 1945 Caller: Radha Relationship to Self No chief complaint on file. HPI: Radha Tong is a 78 year old female that is calling [facility] Int[facility] to report Neuropathy. Nursing [...] provided to patient. Adenike De Leon. LISA [facility] RN [phone] documented in this encounter Plan of Treatment Upcoming Encounters Date Type Department Care Team (Late st Contact Info) Description 04/28/2023 2:30 PM EST Scheduled Telephone [facility], [address] [place] [address] Coordinator, [address] [place] [address] 04/28/2023 3:00 PM EST Telemedicine [facility], [facility] [address] [place] [address] Shama Tang PA-C [address] [place] [address] Ciara Driver, Community Health Logistics Tech [address] [place] [address] 04/29/2023 11:30 AM EST Scheduled Telephone [facility], [facility] [address] [facility] [place] [address] Region, Nurse [address] [place] [address] 05/03/2023 2:00 PM EST Office Visit Orthopaedics [facility] [address] [facility] [place] [address] Rosemarie Amanda MD [address] [place] [address] 05/25/2023 4:00 PM EST Home Visit [facility], [facility] [address] [place] [address] Areli Washburn, LISA [address] [place] [address] 06/29/2023 8:30 AM EST Office Visit Cardiology, [facility] [address] [facility] [place] [address] Nikole Crenshaw P[facility]o [facility] [place] [address] 06/29/2023 9:00 AM EST Office Visit Pharmacy, [facility] [address] [place] [address] [facility] [address] [facility] [place] [address] 06/29/2023 11:00 AM EST Office Visit Otolaryngology [facility] [address] [place] [address] Laurie Herrmann PABo [address] [place] [address] 07/05/2023 3:40 PM EST Office Visit Neurology [facility] [address] [place] [address] Ashlie Swift MD [address] [place] [address] Health Maintenance Due Date Last Done Comments DISCUSS TOBACCO CESSATION (REFER TO SMARTSET #7820) 1945 Alpha-1 Antitrypsin 1965 Diabetic Eye Exam 1965 Diabetic Foot Exam 1965 DXA Scan 09/04/2016 09/04/2013, 09/04/2013 *ADVANCE DIRECTIVE NOT ON FILE 06/09/2019 COVID-19 Vaccine ( season) 2023 11/12/2020, 10/01/2020 Depression Screening 06/02/2023 06/02/2022 HbA1c 09/01/2023 03/02/2023, 12/21, 08/19/2006, Additional history exists GFR 10/17/2023 04/18/2023, 02/20, 03/13/2023, Additional history exists Albumin/Creatinine Ratio 03/02/2024 023, 02/21/2022, 07/23/2019 CKD PHOS USE SMARTSET 36598 03/02/202402/19, 10/07/2022, 02/21/2022, Additional history exists CKD HGB USE SMARTSET 43722 03/15/202403/15, 03/02/2023, 03/02/2023, Additional history exists O2 [...] the patient have Health Care Power of Fitness Worker? No Healthcare Agents on File Name Relationship Healthcare Agent Relationshi p Communication Lacy Tong Adult Child Health Care Repr esentative (appointed verbally by patient or by statute hierarchy) Care Teams Community Service Organization Director Relationship Specialty Start Date End Date Roman Ennis III, MD [address] [place] [address] PCP - General Family Medicine 06/28/18 documented as of this encounter
--- OUTSIDE RECORDS SUMMARY | 2023-06-29 05:27 | External Medical Summary | Summary of Care ---
Author Name Unknown Organization [facility] Address [address] [facility] [place] [address] Phone [phone] Care Team Providers Care Map Plotter Name Role Phone Loli NORWOOD MD, Roman Barraza Primary Care Provider [phone] Reason for Visit * Reason Onset Date Comments [facility]: Maintenance 04/28/2023 Encounter Details Date Type Department Care Team (Late st Contact Info) Description 04/28/2023 2:30 PM EST Scheduled Telephone [facility], [facility] [address] [place] [address] Coordinator, [facility] [address] [place] [address] Allergies Active Allergy Reactions Criticality Noted Date Comments Isosorbide Mononitrate 12/24/2007 Severe headaches Nsaids 05/29/2002 Tramadol Hcl Nausea/vomiting Low 01/09/2008 UGI distress documented as of this encounter (statuses as of 04/28/2023) Medications Medication Sig Dispensed Refills Start Date [...] as of this encounter (statuses as of 04/28/2023) Active Problems Problem Noted Date Diagnosed Date [...] /min) 05/11/2018 Coronary artery disease invo lving [place] coronary artery of [place] heart without angina pectoris 05/08/2018 Anxiety state [...] Overview: Modified by Acute MA Protocol #5. [facility] right coronary bare metal stents S/P angioplasty with stent 09/07/2006 History of tobacco use documented as of this encounter (statuses as of 04/28/2023) Resolved Problems Problem Noted Date Diagnosed Date [...] for Patients with Cardiovascular Disease Project #: [id number] PI: Peyton Conn MD [phone] [email or web address] CARDIO RESEARCH OTHER*[id number] 01/15/2007 06/28/2016 Overview: Renamed Per Clinical Trials Billing Project. Study Title: Genomic Markers for Patients with Cardiovascular Disease Project #: [id number] PI: Peyton Conn MD [phone] LV (left ventricular) mural thrombus 10/30/2006 12/28/2017 Tobacco use disorder 09/07/2006 010 Acute inferior myocardial infarction 08/19/2006 12/11/2008 Overview: Modified by Acute MA Protocol #5. [facility] right coronary bare metal stents EXAMINATION OF PARTICIPANT I N CLINICAL TRIAL - HORIZONS 08/19/2006 09/04/2009 Overview: Renamed Per Clinical Trials Billing Project. [facility] AMI clinical trial 263 Single blind trial comparing heparin and IIB/IIIA with bivalirudin, and Taxus vs bare metal stent. Patient Follow-up for 5 years Monument Stonecutter: Trent Verduzoc [phone] [facility] Clinical Trial*[id number] 08/19/2006 09/08/2014 Overview: Renamed Per Clinical Trials Billing Project. [facility] AMI clinical trial 263 Single blind trial comparing heparin and IIB/IIIA with bivalirudin, and Taxus vs bare metal stent. Patient Follow-up for 5 years Monument Stonecutter: Trent Verduzco [phone] Menopause 08/29/2002 02/23/2017 LOC PRIM [id number] 05/29/200206/23 Dyslipidemia, goal to be determined 05/29/2002 05/07/2009 Overview: Per Lipid Taxonomy. 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 Jessy Barillas RN, BSN [facility] colorman Navigator documented in this encounter Plan of Treatment Upcoming Encounters Date Type Department Care Team (Late st Contact Info) Description 04/28/2023 3:00 PM EST Telemedicine [facility] [address] [place] [address] Shama Tang PA-C [address] [place] [address] Judy Hunt, Community Health Director Index [address] [place] [address] 04/29/2023 11:30 AM EST Scheduled Telephone [facility] [place], [facility] [address] [place] [address] [facility], Nurse [facility] [address] [place] [address] 05/03/2023 2:00 PM EST Office Visit Orthopaedics [facility] [address] [facility] [place] [address] Rosemarie Amanda MD [address] [place] [address] 05/25/2023 4:00 PM EST [facility] Visit [facility], [facility] [address] [place] [address] Areli Washburn RN [address] [place] [address] 06/29/2023 8:30 AM EST Office Visit Cardiology, [facility] [address] [facility] [place] [address] Nikole Crenshaw PA-C [address] [place] [address] 06/29/2023 9:00 AM EST Office Visit Pharmacy, [facility] [address] [facility] [place] [address] [facility] [address] [facility] [place] [address] 06/29/2023 11:00 AM EST Office Visit Otolaryngology [facility] [address] [facility] [place] [address] Laurie Herrmann PA-C [address] [place] [address] 07/05/2023 3:40 PM EST Office Visit Neurology [facility] [address] [place] [address] Ashlie Swift MD [address] [place] [address] Health Maintenance Due Date Last Done Comments [...] 023, 02/21/2022, 07/23/2019 CKD PHOS USE SMARTSET 32133 03/02/202402/19, 10/07/2022, 02/21/2022, Additional history exists CKD HGB USE SMARTSET 66705 03/15/202403/15, 03/02/2023, 03/02/2023, Additional history exists O2 [...] the patient have Health Care Power of Business Analyst Sales Operations? No Healthcare Agents on File Name Relationship Healthcare Agent Relationshi p Communication Lacy Tong Adult Child Health Care Repr esentative (appointed verbally by patient or by statute hierarchy) Care Teams Map Plotter Relationship Specialty Start Date End Date Roman Ennis III, MD [address] [place] [address] PCP - General Family Medicine 06/28/18 documented as of this encounter
--- OUTSIDE RECORDS SUMMARY | 2023-06-29 05:27 | External Medical Summary | Summary of Care ---
Author Name Unknown Organization [facility] Address [address] [facility] [place] [address] Phone [phone] Care Team Providers Care Shift Production Associate Name Role Phone Loli NORWOOD MD, Roman Barraza Primary Care Provider [phone] Encounter Details Date Type Department Care Team (Late st Contact Info) Description 04/26/2023 Result Scan Unspecified Department Trent Wu, DO [address] [place] [address] <No scans attached> Allergies Active Allergy Reactions Criticality Noted Date Comments Isosorbide Mononitrate 12/24/2007 Severe headaches Nsaids 05/29/2002 Tramadol Hcl Nausea/vomiting Low 01/09/2008 UGI distress documented as of this encounter (statuses as of 04/26/2023) Medications Medication Sig Dispensed Refills Start Date [...] as of this encounter (statuses as of 04/26/2023) Active Problems Problem Noted Date Diagnosed Date [...] /min) 05/11/2018 Coronary artery disease invo lving [place] coronary artery of [place] heart without angina pectoris 05/08/2018 Anxiety state [...] Overview: Modified by Acute [place] Protocol #5. [facility] right coronary bare metal stents S/P angioplasty with stent 09/07/2006 History of tobacco use documented as of this encounter (statuses as of 04/26/2023) Resolved Problems Problem Noted Date Diagnosed Date [...] for Patients with Cardiovascular Disease Project #: [id number] PI: Peyton Conn MD [phone] [employer] CARDIO RESEARCH OTHER*[id number] 01/15/2007 06/28/2016 Overview: Renamed Per Clinical Trials Billing Project. Study Title: Genomic Markers for Patients with Cardiovascular Disease Project #: [id number] PI: Peyton Conn MD [phone] LV (left ventricular) mural thrombus 10/30/2006 12/28/2017 Tobacco use disorder 09/07/2006 010 Acute inferior myocardial infarction 08/19/2006 12/11/2008 Overview: Modified by Acute [place] Protocol #5. [facility] right coronary bare metal stents EXAMINATION OF PARTICIPANT I N CLINICAL TRIAL - HORIZONS 08/19/2006 09/04/2009 Overview: Renamed Per Clinical Trials Billing Project. [facility] AMI clinical trial 263 Single blind trial comparing heparin and IIB/IIIA with bivalirudin, and Taxus vs bare metal stent. Patient Follow-up for 5 years Park Police: Trent Verduzco [phone] [facility] Clinical Trial*[id number] 08/19/2006 09/08/2014 Overview: Renamed Per Clinical Trials Billing Project. [facility] AMI clinical trial 263 Single blind trial comparing heparin and IIB/IIIA with bivalirudin, and Taxus vs bare metal stent. Patient Follow-up for 5 years Park Police: Trent Verduzco [phone] Menopause 08/29/2002 02/23/2017 LOC PRIM [id number] 05/29/200206/23 Dyslipidemia, goal to be determined 05/29/2002 05/07/2009 Overview: Per Lipid Taxonomy. 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 02/23/2017 documented as of this encounter (statuses as of 04/26/2023) Immunizations Name Administration Dates Next Due COVID-19 [...] 05/03/2023 2:00 PM EST Office Visit Orthopaedics [facility] [address] [place] [address] Rosemarie Amanda MD [address] [place] [address] 05/25/2023 4:00 PM EST [facility] [address] [place] [address] Areli Washburn, RN [address] [place] [address] 06/29/2023 8:30 AM EST Office Visit Cardiology, [facility] [address] [place] [address] Nikole Crenshwa PA-C [address] [place] [address] 06/29/2023 9:00 AM EST Office Visit Pharmacy, [facility] [address] [place] [address] [facility] [address] [place] [address] 06/29/2023 11:00 AM EST Office Visit Otolaryngology [facility] [address] [place] [address] Laurie Herrmann PA-C [address] [place] [address] 07/05/2023 3:40 PM EST Office Visit Neurology [facility] [address] [place] [address] Ashlie Swift MD [address] [place] [address] Health Maintenance Due Date Last Done Comments DISCUSS TOBACCO CESSATION (REFER TO SMARTSET #1625) 1945 Alpha-1 Antitrypsin 1965 Diabetic Eye Exam 1965 Diabetic Foot Exam 1965 DXA Scan 09/04/2016 09/04/2013, 09/04/2013 *ADVANCE DIRECTIVE NOT ON FILE 06/09/2019 COVID-19 Vaccine ( season) 2023 11/12/2020, 10/01/2020 Depression Screening 06/02/2023 06/02/2022 HbA1c 09/01/2023 03/02/2023, 12/21, 08/19/2006, Additional history exists GFR 10/17/2023 04/18/2023, 02/20, 03/13/2023, Additional history exists Albumin/Creatinine Ratio 03/02/2024 023, 02/21/2022, 07/23/2019 CKD PHOS USE SMARTSET 01790 03/02/202402/19, 10/07/2022, 02/21/2022, Additional history exists CKD HGB USE SMARTSET 33514 03/15/202403/15, 03/02/2023, 03/02/2023, Additional history exists O2 [...] Not on filedocumented as of this encounter Procedures Procedure Name Priority Date/Time Associated Diagnosis Comments CARDIOLOGY SCANNED RESULT 04/26/2023 documented in this encounter Results * CARDIOLOGY SCANNED RESULT (04/26/2023) 04/26/2023 Trent Wu DO OTHER documented in this encounter Advance Directives Latest [...] the patient have Health Care Power of Hand Meat Salter? No Healthcare Agents on File Name Relationship Healthcare Agent Relationshi p Communication Lacy Tong Adult Child Health Care Repr esentative (appointed verbally by patient or by statute hierarchy) Care Teams Shift Production Associate Relationship Specialty Start Date End Date Roman Ennis III, MD [address] [place] [address] PCP - General Family Medicine 06/28/18 documented as of this encounter
--- OUTSIDE RECORDS SUMMARY | 2023-06-29 05:27 | External Medical Summary | Summary of Care ---
Author Name Unknown Organization [facility] Address [address] [facility] [place] [address] Phone [phone] Care Team Providers Care Poultry Picker Name Role Phone Loli NORWOOD MD, Roman Barraza Primary Care Provider [phone] Reason for Visit * Reason Onset Date Comments Test Results 04/21/2023 Labs- symptom up date- LMTCB 04/21/23 Encounter Details Date Type Department Care Team (Late st Contact Info) Description 04/21/2023 Telephone Cardiology, [facility] [address] [place] [address] Nikole Crenshaw PA-C [address] [place] [address] Test Results (Labs- symptom update- LMTCB ... Allergies Active Allergy Reactions Criticality Noted Date [...] /min) 05/11/2018 Coronary artery disease invo lving [place] coronary artery of [place] heart without angina pectoris 05/08/2018 Anxiety state [...] MYOCARDIAL INFARCT 12/11/2008 Overview: Modified by Acute [place] Protocol #5. [facility] right coronary bare metal stents S/P angioplasty [...] for Patients with Cardiovascular Disease Project #: [id number] PI: Pyeton Conn MD [phone] [employer] CARDIO RESEARCH OTHER*[id number] 01/15/2007 06/28/2016 Overview: Renamed Per Clinical Trials Billing Project. Study Title: Genomic Markers for Patients with Cardiovascular Disease Project #: [id number] PI: Peyton Conn MD [phone] LV (left ventricular) mural thrombus 10/30/2006 12/28/2017 Tobacco use disorder 09/07/2006 010 Acute inferior myocardial infarction 08/19/2006 12/11/2008 Overview: Modified by Acute [place] Protocol #5. [facility] right coronary bare metal stents EXAMINATION OF PARTICIPANT I N CLINICAL TRIAL - HORIZONS 08/19/2006 09/04/2009 Overview: Renamed Per Clinical Trials Billing Project. [facility] AMI clinical trial 263 Single blind trial comparing heparin and IIB/IIIA with bivalirudin, and Taxus vs bare metal stent. Patient Follow-up for 5 years Traveling Passenger Agent: Trent Verduzco [phone] [facility] Clinical Trial*[id number] 08/19/2006 09/08/2014 Overview: Renamed Per Clinical Trials Billing Project. [facility] AMI clinical trial 263 Single blind trial comparing heparin and IIB/IIIA with bivalirudin, and Taxus vs bare metal stent. Patient Follow-up for 5 years Traveling Passenger Agent: Trent Verduzco [phone] Menopause 08/29/2002 02/23/2017 LOC PRIM [id number] 05/29/200206/23 Dyslipidemia, goal to be determined 05/29/2002 [...] encounter Miscellaneous Notes * Telephone Encounter - Camila Bello LPN - 04/27/2023 1:17 PM EST Primary number listed for pt is Daughter in law Nadiya Spoke with Daughter in law Nadiya gave info in this encounter. She will pass information along to pt. * Telephone Encounter - Nikole Crenshaw PA-C - 04/24/2023 9:48 AM EST Agree with the gabapentin likely contributing to the swelling. Continue current dose of furosemide with LULY hose. * Telephone Encounter - Camila Bello LPN - 04/21/2023 2:48 PM EST Swelling has not improved, using LULY hose Weight 140-150 fluctuating Pt drinks 56oz of fluid daily - "Fruit 2O" bottled zero calorie flavored water, 3 -16oz bottles daily plus 1 cup of tea daily. Will increase fluid slightly. Pt said her neurologist wondered if gabapentin was causing swelling and asked pt to discuss alternative with PCP. * Telephone Encounter - aTnya Pelaez NRCMA - 04/21/2023 2:34 PM EST [facility] 04/21/2023 2:35 PM * Telephone Encounter - Tanya Pelaez NRCMA - 04/21/2023 2:34 PM EST ----- Message from Nikole Crenshaw PA-C sent at 04/19/2023 4:04 PM EST ----- Mild worsening renal function since adjustments in diuretics. See how patient is doing? Did swelling/edema improve? Has she been tracking her weight - Going up or down? Would increase water intake slightly. Await update on patient's status, then will make further recommendations in medications documented in this encounter Plan of Treatment Upcoming Encounters Date Type Department Care Team (Late st Contact Info) Description 04/28/2023 2:30 PM EST Scheduled Telephone [facility] [address] [facility] [place] [address] Coordinator, [address] [place] [address] 04/29/2023 11:30 AM EST Scheduled Telephone [facility] [place], [facility] [address] [place] [address] Region, Nurse [address] [place] [address] 05/03/2023 2:00 PM EST Office Visit Orthopaedics [facility] [address] [facility] [place] [address] Rosemarie Amanda MD [address] [place] [address] 05/25/2023 4:00 PM EST [facility] Visit [facility], [facility] [address] [place] [address] Areli Washburn, LISA [address] [place] [address] 06/29/2023 8:30 AM EST Office Visit Cardiology, [facility] [address] [facility] [place] [address] Nikole Crenshaw PA-C [address] [facility] [place] [address] 06/29/2023 9:00 AM EST Office Visit Pharmacy, [facility] [address] [facility] [place] [address] [facility] [address] [facility] [place] [address] 06/29/2023 11:00 AM EST Office Visit Otolaryngology [facility] [address] [facility] [place] [address] Laurie Herrmann PA-C [address] [place] [address] 07/05/2023 3:40 PM EST Office Visit Neurology [facility] [address] [place] [address] Ashlie Swift MD [address] [place] [address] Health Maintenance Due Date Last Done Comments DISCUSS TOBACCO CESSATION (REFER TO SMARTSET #6169) 1945 Alpha-1 Antitrypsin 1965 Diabetic Eye Exam 1965 Diabetic Foot Exam 1965 DXA Scan 09/04/2016 09/04/2013, 09/04/2013 *ADVANCE DIRECTIVE NOT ON FILE 06/09/2019 COVID-19 Vaccine ( season) 2023 11/12/2020, 10/01/2020 Depression Screening 06/02/2023 06/02/2022 HbA1c 09/01/2023 03/02/2023, 12/21, 08/19/2006, Additional history exists GFR 10/17/2023 04/18/2023, 02/20, 03/13/2023, Additional history exists Albumin/Creatinine Ratio 03/02/2024 023, 02/21/2022, 07/23/2019 CKD PHOS USE SMARTSET 47266 03/02/202402/19, 10/07/2022, 02/21/2022, Additional history exists CKD HGB USE SMARTSET 65124 03/15/202403/15, 03/02/2023, 03/02/2023, Additional history exists O2 [...] the patient have Health Care Power of Sagger Soak? No Healthcare Agents on File Name Relationship Healthcare Agent Relationshi p Communication Lacy Tong Adult Child Health Care Repr esentative (appointed verbally by patient or by statute hierarchy) Care Teams Poultry Picker Relationship Specialty Start Date End Date Roman Ennis III, MD [address] [place] [address] PCP - General Family Medicine 06/28/18 documented as of this encounter
--- OUTSIDE RECORDS SUMMARY | 2023-06-29 05:27 | External Medical Summary | Summary of Care ---
Author Name Unknown Organization [facility] Address [address] [place] [address] Phone [phone] Care Team Providers Care Job Coach/Job Developer Name Role Phone Loli NORWOOD MD, Roman Barraza Primary Care Provider [phone] Reason for Visit * Reason Onset Date Comments Appointment 04/27/2023 Encounter Details Date Type Department Care Team (Late st Contact Info) Description 04/27/2023 Telephone [facility], [place] [address] [place] [address] Services, Scheduling [address] [place] [address] Appointment (//) Allergies Active Allergy Reactions Criticality Noted Date [...] /min) 05/11/2018 Coronary artery disease invo lving [place] coronary artery of [place] heart without angina pectoris 05/08/2018 Anxiety state [...] MYOCARDIAL INFARCT 12/11/2008 Overview: Modified by Acute [place] Protocol #5. [facility] right coronary bare [...] for Patients with Cardiovascular Disease Project #: [id number] PI: Peyton Conn MD [phone] [employer] CARDIO RESEARCH OTHER*[id number] 01/15/2007 06/28/2016 Overview: Renamed Per Clinical Trials Billing Project. Study Title: Genomic Markers for Patients with Cardiovascular Disease Project #: [id number] PI: Peyton Conn MD [phone] LV (left ventricular) mural thrombus 10/30/2006 12/28/2017 Tobacco use disorder 09/07/2006 010 Acute inferior myocardial infarction 08/19/2006 12/11/2008 Overview: Modified by Acute [place] Protocol #5. [facility] right coronary bare metal stents EXAMINATION OF PARTICIPANT I N CLINICAL TRIAL - HORIZONS 08/19/2006 09/04/2009 Overview: Renamed Per Clinical Trials Billing Project. [facility] AMI clinical trial 263 Single blind trial comparing heparin and IIB/IIIA with bivalirudin, and Taxus vs bare metal stent. Patient Follow-up for 5 years Medical Clerk: Trent Verduzco [phone] [facility] Clinical Trial*[id number] 08/19/2006 09/08/2014 Overview: Renamed Per Clinical Trials Billing Project. [facility] AMI clinical trial 263 Single blind trial comparing heparin and IIB/IIIA with bivalirudin, and Taxus vs bare metal stent. Patient Follow-up for 5 years Medical Clerk: Trent Verduzco [phone] Menopause 08/29/2002 02/23/2017 LOC PRIM [id number] 05/29/200206/23 Dyslipidemia, goal to be determined 05/29/2002 [...] encounter Miscellaneous Notes * Telephone Encounter - Amanda Salas RN - 04/27/2023 4:54 PM EST Pt called back. Telemed visit time and date given to her. She is happy with telemed visit tomorrow. Amanda Salas RN [facility] Intake Triage Coordinator [phone] * Telephone Encounter - Jerzy Martinez OSA - 04/27/2023 4:50 PM EST Tt request to sched acute telemed for 04/28, schedule 3pm, lmom for pt to confirm visit documented in this encounter Plan of Treatment Upcoming Encounters Date Type Department Care Team (Late st Contact Info) Description 04/28/2023 2:30 PM EST Scheduled Telephone [facility] [place], [facility] 132 [facility] [place] [address] Coordinator, [facility] [address] [place] [address] 04/28/2023 3:00 PM EST Telemedicine [facility], [facility] [address] [facility] [address] Shama Tang PA-C [address] [place] [address] Ciara Driver, Community Health Glass Blowing Lathe Operator [address] [place] [address] 04/29/2023 11:30 AM EST Scheduled Telephone [facility], [facility] [address] [facility] [place] [address] [facility], Nurse [facility] [address] [facility] [place] [address] 05/03/2023 2:00 PM EST Office Visit Orthopaedics [facility] [address] [place] [address] Rosemarie Amanda MD [address] [place] [address] 05/25/2023 4:00 PM EST Home Visit [facility], [facility] [address] [place] [address] Areli Washburn RN [address] [place] [address] 06/29/2023 8:30 AM EST Office Visit Cardiology, [facility] 132 [facility] [address] Nikole Crenshaw PA-C [address] [place] [address] 06/29/2023 9:00 AM EST Office Visit Pharmacy, [facility] 132 [facility] [place] [address] [facility] [address] [place] [address] 06/29/2023 11:00 AM EST Office Visit Otolaryngology [facility] [address] [place] [address] Laurie Herrmann PA-C [address] [place] [address] 07/05/2023 3:40 PM EST Office Visit Neurology [facility] [place] 200 [facility] [place] [address] Ashlie Swift MD [address] [place] [address] Health Maintenance Due Date Last Done Comments [...] 023, 02/21/2022, 07/23/2019 CKD PHOS USE SMARTSET 71485 03/02/202402/19, 10/07/2022, 02/21/2022, Additional history exists CKD HGB USE SMARTSET 76930 03/15/202403/15, 03/02/2023, 03/02/2023, Additional history exists O2 [...] the patient have Health Care Power of Household Cook? No Healthcare Agents on File Name Relationship Healthcare Agent Relationshi p Communication Lacy Tong Adult Child Health Care Repr esentative (appointed verbally by patient or by statute hierarchy) Care Teams Job Coach/Job Developer Relationship Specialty Start Date End Date Roman Ennis III, MD [address] [place] [address] PCP - General Family Medicine 06/28/18 documented as of this encounter
--- OUTSIDE RECORDS SUMMARY | 2023-06-29 05:27 | External Medical Summary | Summary of Care ---
Author Name Unknown Organization [facility] Address [address] [facility] [place] [address] Phone [phone] Care Team Providers Care Wage Adjuster Name Role Phone Loli NORWOOD MD, Roman Barraza Primary Care Provider [phone] Reason for Visit * Reason Onset Date Comments [facility]: Acute 04/27/2023 Encounter Details Date Type Department Care Team (Late st Contact Info) Description 04/27/2023 Telephone [facility], [facility] 132 [facility] [place] [address] [facility], Nurse [facility] [address] [facility] [place] [address] [facility]: Acute Allergies Active Allergy [...] /min) 05/11/2018 Coronary artery disease invo lving [place] coronary artery of [place] heart without angina pectoris 05/08/2018 Anxiety state [...] MYOCARDIAL INFARCT 12/11/2008 Overview: Modified by Acute [place] Protocol #5. [facility] right coronary bare metal stents S/P angioplasty [...] for Patients with Cardiovascular Disease Project #: [id number] PI: Peyton Conn MD [phone] [employer] CARDIO RESEARCH OTHER*[id number] 01/15/2007 06/28/2016 Overview: Renamed Per Clinical Trials Billing Project. Study Title: Genomic Markers for Patients with Cardiovascular Disease Project #: [id number] PI: Peyton Conn MD [phone] LV (left ventricular) mural thrombus 10/30/2006 12/28/2017 Tobacco use disorder 09/07/2006 010 Acute inferior myocardial infarction 08/19/2006 12/11/2008 Overview: Modified by Acute [place] Protocol #5. [facility] right coronary bare metal stents EXAMINATION OF PARTICIPANT I N CLINICAL TRIAL - HORIZONS 08/19/2006 09/04/2009 Overview: Renamed Per Clinical Trials Billing Project. [facility] AMI clinical trial 263 Single blind trial comparing heparin and IIB/IIIA with bivalirudin, and Taxus vs bare metal stent. Patient Follow-up for 5 years Cvor Nurse: Trent Verduzco [phone] [facility] [place] Clinical Trial*[id number] 08/19/2006 09/08/2014 Overview: Renamed Per Clinical Trials Billing Project. [facility] AMI clinical trial 263 Single blind trial comparing heparin and IIB/IIIA with bivalirudin, and Taxus vs bare metal stent. 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 HPI: Radha Tong is a 78 year old female that is calling [employer] to report Neuropathy. Nursing [...] provided to patient. Adenike De Leon. LISA [facility] RN [phone] documented in this encounter Plan of Treatment Upcoming Encounters Date Type Department Care Team (Late st Contact Info) Description 04/28/2023 2:30 PM EST Scheduled Telephone [facility], [place] [address] [address] [place] [address] Coordinator, [place] [address] [address] [place] [address] 04/29/2023 11:30 AM EST Scheduled Telephone [facility], [facility] [address] [place] [address] Region, Nurse [place] [address] [address] [place] [address] 05/03/2023 2:00 PM EST Office Visit Orthopaedics [facility] [address] [place] [address] Rosemarie Amanda MD [address] [place] [address] 05/25/2023 4:00 PM EST Home Visit [facility], [facility] [address] [place] [address] Areli Washburn RN [address] [place] [address] 06/29/2023 8:30 AM EST Office Visit Cardiology, [facility] [address] [place] [address] Nikole Crenhsaw PABo [address] [place] [address] 06/29/2023 9:00 AM EST Office Visit Pharmacy, [facility] [place] [address] [facility] [address] [facility] [place] [address] 06/29/2023 11:00 AM EST Office Visit Otolaryngology [facility] [address] [place] [address] Laurie Herrmann PA-C [address] [place] [address] 07/05/2023 3:40 PM EST Office Visit Neurology [facility] 200 [facility] [place] [address] Ashlie Swift MD 200 [facility] [place] [address] Health Maintenance Due Date Last Done Comments [...] 023, 02/21/2022, 07/23/2019 CKD PHOS USE SMARTSET 86240 03/02/202402/19, 10/07/2022, 02/21/2022, Additional history exists CKD HGB USE SMARTSET 66872 03/15/202403/15, 03/02/2023, 03/02/2023, Additional history exists O2 [...] the patient have Health Care Power of Auditor Internal? No Healthcare Agents on File Name Relationship Healthcare Agent Relationshi p Communication Lacy Tong Adult Child Health Care Repr esentative (appointed verbally by patient or by statute hierarchy) Care Teams Wage Adjuster Relationship Specialty Start Date End Date Roman Ennis III, MD 200 [facility] [place] [address] PCP - General Family Medicine 06/28/18 documented as of this encounter
--- OUTSIDE RECORDS SUMMARY | 2023-06-29 05:27 | External Medical Summary | Summary of Care ---
Author Name Unknown Organization [facility] Address [address] [place] [address] Phone [phone] Care Team Providers Care Certified Industrial Hygienist Name Role Phone Loli NORWOOD MD, Roman Barraza Primary Care Provider [phone] Reason for Visit * Reason Onset Date Comments Appointment 04/27/2023 Encounter Details Date Type Department Care Team (Late st Contact Info) Description 04/27/2023 Telephone [facility], [place] [address] [place] [address] Services, Scheduling [address] [place] [address] Appointment (//) Allergies Active Allergy Reactions Criticality [...] /min) 05/11/2018 Coronary artery disease invo lving [place] coronary artery of [place] heart without angina pectoris 05/08/2018 Anxiety [...] MYOCARDIAL INFARCT 12/11/2008 Overview: Modified by Acute [place] Protocol #5. [facility] right coronary bare metal [...] for Patients with Cardiovascular Disease Project #: [id number] PI: Peyton Conn MD [phone] GENOMICS CARDIO RESEARCH OTHER*[id number] 01/15/2007 06/28/2016 Overview: Renamed Per Clinical Trials Billing Project. Study Title: Genomic Markers for Patients with Cardiovascular Disease Project #: [id number] PI: Peyton Conn MD [phone] LV (left ventricular) mural thrombus 10/30/2006 12/28/2017 Tobacco use disorder 09/07/2006 010 Acute inferior myocardial infarction 08/19/2006 12/11/2008 Overview: Modified by Acute [place] Protocol #5. [facility] right coronary bare metal stents EXAMINATION OF PARTICIPANT I N CLINICAL TRIAL - HORIZONS 08/19/2006 09/04/2009 Overview: Renamed Per Clinical Trials Billing Project. [facility] AMI clinical trial 263 Single blind trial comparing heparin and IIB/IIIA with bivalirudin, and Taxus vs bare metal stent. Patient Follow-up for 5 years Water Mechanic: Trent Verduzco [phone] [facility] [place] Clinical Trial*[id number] 08/19/2006 09/08/2014 Overview: Renamed Per Clinical Trials Billing Project. [facility] AMI clinical trial 263 Single blind trial comparing heparin and IIB/IIIA with bivalirudin, and Taxus vs bare metal stent. Patient Follow-up for 5 years Water Mechanic: Trent Verduzco [phone] Menopause 08/29/2002 02/23/2017 LOC PRIM [id number] 05/29/200206/23 Dyslipidemia, goal to be determined 05/29/2002 [...] with telemed visit tomorrow. Amanda Salas RN [facility] Intake Triage Coordinator [phone] * Telephone Encounter - Jerzy Martinez OSA - 04/27/2023 4:50 PM EST Tt request to sched acute telemed for 04/28, schedule 3pm, lmom for pt to confirm visit documented in this encounter Plan of Treatment Upcoming Encounters Date Type Department Care Team (Late st Contact Info) Description 04/28/2023 2:30 PM EST Scheduled Telephone [facility] [place], [facility] 132 [facility] [place] [address] Coordinator, [facility] [address] [place] [address] 04/28/2023 3:00 PM EST Telemedicine [facility], [facility] [address] [facility] [address] Shama Tang PA-C [address] [place] [address] Ciara Driver, Community Health Donor Relations Officer [address] [place] [address] 04/29/2023 11:30 AM EST Scheduled Telephone [facility], [facility] [place] [address] [facility], Nurse [facility] [place] [address] 05/03/2023 2:00 PM EST Office Visit Orthopaedics [facility] [address] [place] [address] Rosemarie Amanda MD [address] [place] [address] 05/25/2023 4:00 PM EST Home Visit [facility], [facility] [address] [place] [address] Areli Washburn RN [address] [place] [address] 06/29/2023 8:30 AM EST Office Visit Cardiology, [facility] 132 [place] [address] Nikole Crenshaw PA-C [address] [place] [address] 06/29/2023 9:00 AM EST Office Visit Pharmacy, [facility] 132 [facility] [place] [address] [facility] [address] [place] [address] 06/29/2023 11:00 AM EST Office Visit Otolaryngology [facility] [address] [place] [address] Laurie Herrmann PA-C [address] [place] [address] 07/05/2023 3:40 PM EST Office Visit Neurology [facility] [place] 200 [facility] [place] [address] Ashlie Swift MD [address] [place] [address] Health Maintenance Due Date Last Done Comments [...] 023, 02/21/2022, 07/23/2019 CKD PHOS USE SMARTSET 19297 03/02/202402/19, 10/07/2022, 02/21/2022, Additional history exists CKD HGB USE SMARTSET 97172 03/15/202403/15, 03/02/2023, 03/02/2023, Additional history exists O2 [...] the patient have Health Care Power of Equipment Operator Warehouse? No Healthcare Agents on File Name Relationship Healthcare Agent Relationshi p Communication Lacy Tong Adult Child Health Care Repr esentative (appointed verbally by patient or by statute hierarchy) Care Teams Certified Industrial Hygienist Relationship Specialty Start Date End Date Roman Ennis III, MD [address] [place] [address] PCP - General Family Medicine 06/28/18 documented as of this encounter
--- OUTSIDE RECORDS SUMMARY | 2023-06-29 05:27 | External Medical Summary | Summary of Care ---
Author Name Unknown Organization [facility] Address [address] [place] [address] Phone [phone] Care Team Providers Care Automotive Service Director Name Role Phone Loli NORWOOD MD, Roman Barraza Primary Care Provider [phone] Reason for Visit * Reason Comments Defibrillator Clinic Encounter Details Date Type Department Care Team (Latest Contact Info) Description 04/18/2023 10:30 AM EST Cardiac Studies Cardiology, [facility] 132 [place] [address] [place], [facility] 132 [place] [address] Biventricular implantable cardioverter-defibrill ator in situ*; History of ischemic cardiomyopathy Allergies Active Allergy Reactions Criticality Noted Date Comments Isosorbide Mononitrate 12/24/2007 Severe headaches Nsaids 05/29/2002 Tramadol Hcl Nausea/vomiting Low 01/09/2008 UGI distress documented as of this encounter (statuses as of 04/25/2023) Medications Medication Sig Dispensed Refills Start Date [...] as of this encounter (statuses as of 04/25/2023) Active Problems Problem Noted Date Diagnosed Date [...] /min) 05/11/2018 Coronary artery disease invo lving [place] coronary artery of [place] heart without angina pectoris 05/08/2018 Anxiety state [...] MYOCARDIAL INFARCT 12/11/2008 Overview: Modified by Acute [place] Protocol #5. [facility] right coronary bare metal stents S/P angioplasty with stent 09/07/2006 History of tobacco use documented as of this encounter (statuses as of 04/25/2023) Resolved Problems Problem Noted Date Diagnosed Date [...] for Patients with Cardiovascular Disease Project #: [id number] PI: Peyton Conn MD [phone] [employer] CARDIO RESEARCH OTHER*[id number] 01/15/2007 06/28/2016 Overview: Renamed Per Clinical Trials Billing Project. Study Title: Genomic Markers for Patients with Cardiovascular Disease Project #: [id number] PI: Peyton Conn MD [phone] LV (left ventricular) mural thrombus 10/30/2006 12/28/2017 Tobacco use disorder 09/07/2006 010 Acute inferior myocardial infarction 08/19/2006 12/11/2008 Overview: Modified by Acute [place] Protocol #5. [facility] right coronary bare metal stents EXAMINATION OF PARTICIPANT I N CLINICAL TRIAL - HORIZONS 08/19/2006 09/04/2009 Overview: Renamed Per Clinical Trials Billing Project. [facility] AMI clinical trial 263 Single blind trial comparing heparin and IIB/IIIA with bivalirudin, and Taxus vs bare metal stent. Patient Follow-up for 5 years Air Director: Trent Verduzco [phone] [facility] [place] Clinical Trial*[id number] 08/19/2006 09/08/2014 Overview: Renamed Per Clinical Trials Billing Project. [facility] AMI clinical trial 263 Single blind trial comparing heparin and IIB/IIIA with bivalirudin, and Taxus vs bare metal stent. Patient Follow-up for 5 years Air Director: Trent Verduzco [phone] Menopause 08/29/2002 02/23/2017 LOC PRIM [id number] 05/29/200206/23 Dyslipidemia, goal to be determined 05/29/2002 05/07/2009 Overview: Per Lipid Taxonomy. 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 Providers please see scanned report in the Scans tab. Eliza Sanchez RN documented in this encounter Nursing Notes * Kelly Franks RN - 04/20/2023 1:29 PM EST Patient and implanted device were evaluated today in the [facility]. Providers please see scanned report in the Scans tab. ICD reprogramming B>AX performed as per [employer] advisory. Tech: Sobeida Gallegos documented in this encounter Plan of Treatment Upcoming Encounters Date Type Department Care Team (Late st Contact Info) Description 05/03/2023 2:00 PM EST Office Visit Orthopaedics [facility] [address] [place] [address] Rosemarie Amanda MD [address] [place] [address] 05/25/2023 4:00 PM EST [facility] Visit [facility], [facility] 132 [facility] [place] [address] Areli Washburn, RN 132 [facility] [place] [address] 06/29/2023 8:30 AM EST Office Visit Cardiology, [facility] 132 [facility] [place] [address] Nikole Crenshaw PA-C [facility] [address] 06/29/2023 9:00 AM EST Office Visit [facility]acy, [facility] [place] [address] [facility] Clinic [facility] 132 [place] [address] 06/29/2023 11:00 AM EST Office Visit [facility] [place] [address] Laurie Herrmann PA-C [address] [facility] [place] [address] 07/05/2023 3:40 PM EST Office Visit Neurology [facility] [address] [place] [address] Ashlie Swift MD 200 [facility] [place] [address] Scheduled Orders Name Type Priority Associated Diagnoses Orde r Schedule MULTI-LEAD DEFIBRILLATOR + REPROGRAM Procedures Routine Biventricular implantable cardioverter-defibrillat or in situ History of ischemic cardiomyopathy Ordered: 04/20/2023 Health Maintenance Due Date Last Done Comments [...] 023, 02/21/2022, 07/23/2019 CKD PHOS USE SMARTSET 52196 03/02/202402/19, 10/07/2022, 02/21/2022, Additional history exists CKD HGB USE SMARTSET 71606 03/15/202403/15, 03/02/2023, 03/02/2023, Additional history exists O2 [...] as of this encounter Visit Diagnoses Diagnosis Biventricular implantable cardioverter-defibrillator in situ- Primary History of ischemic cardiomyopathy documented in this encounter Advance Directives Latest [...] the patient have Health Care Power of Political Director? No Healthcare Agents on File Name Relationship Healthcare Agent Relationshi p Communication Lacy Tong Adult Child Health Care Repr esentative (appointed verbally by patient or by statute hierarchy) Care Teams Automotive Service Director Relationship Specialty Start Date End Date Roman Ennis III, MD 200 [facility] [place] [address] PCP - General Family Medicine 06/28/18 documented as of this encounter
--- OUTSIDE RECORDS SUMMARY | 2023-06-29 05:28 | External Medical Summary | Summary of Care ---
Author Name Unknown Organization [facility] Address [address] [place] [address] Phone [phone] Care Team Providers Care Hospital Wellness Coordinator Name Role Phone Loli NORWOOD MD, oRman Barraza Primary Care Provider [phone] Reason for Referral * Evaluate & Treat - Unlimited Visits (Within 30 days (routine)) - Authorized Specialty Diagnoses / Procedures Referred By Xuan bey Referred To Contact Orthopaedic Surgery / Orthopedics Diagnoses Hip pain, left Xuan Xie DO [address] [place] [address] Referral ID Status Reason Start Date Expiration Date Visits Requested Visits Authorized [id number] Authorized Specialty Services Required 3 [phone] Question Answer Referral Priority Within 30 days (routine) Where should this appointment be scheduled? [facility] What body part is the patient being seen for? Hip What condition is the patient being seen for? Arthritis including related infection Encounter Details Date Type Department Care Team (Late st Contact Info) Description 04/18/2023 Telephone Pharmacy, [facility] [address] [facility] [place] [address] Mable Gonzalez, [facility] [address] [facility] [place] [address] Allergies Active Allergy Reactions Criticality Noted Date Comments Isosorbide Mononitrate 12/24/2007 Severe headaches Nsaids 05/29/2002 Tramadol Hcl Nausea/vomiting Low 01/09/2008 UGI distress documented as of this encounter (statuses as of 04/20/2023) Medications Medication Sig Dispensed Refills Start Date [...] as of this encounter (statuses as of 04/20/2023) Active Problems Problem Noted Date Diagnosed Date [...] /min) 05/11/2018 Coronary artery disease invo lving [place] coronary artery of [place] heart without angina pectoris 05/08/2018 Anxiety state [...] MYOCARDIAL INFARCT 12/11/2008 Overview: Modified by Acute [place] Protocol #5. [facility] [place] right coronary bare metal stents S/P angioplasty with stent 09/07/2006 History of tobacco use documented as of this encounter (statuses as of 04/20/2023) Resolved Problems Problem Noted Date Diagnosed Date [...] for Patients with Cardiovascular Disease Project #: [id number] PI: Peyton Conn MD [phone] [employer] CARDIO RESEARCH OTHER*[id number] 01/15/2007 06/28/2016 Overview: Renamed Per Clinical Trials Billing Project. Study Title: Genomic Markers for Patients with Cardiovascular Disease Project #: [id number] PI: Peyton Conn MD [phone] LV (left ventricular) mural thrombus 10/30/2006 12/28/2017 Tobacco use disorder 09/07/2006 010 Acute inferior myocardial infarction 08/19/2006 12/11/2008 Overview: Modified by Acute [place] Protocol #5. [facility] right coronary bare metal stents EXAMINATION OF PARTICIPANT I N CLINICAL TRIAL - [place] 08/19/2006 09/04/2009 Overview: Renamed Per Clinical Trials Billing Project. [facility] AMI clinical trial 263 Single blind trial comparing heparin and IIB/IIIA with bivalirudin, and Taxus vs bare metal stent. Patient Follow-up for 5 years Radiation Physicist: Trent Verduzco [phone] [facility] Clinical Trial*[id number] 08/19/2006 09/08/2014 Overview: Renamed Per Clinical Trials Billing Project. [facility] AMI clinical trial 263 Single blind trial comparing heparin and IIB/IIIA with bivalirudin, and Taxus vs bare metal stent. Patient Follow-up for 5 years Radiation Physicist: Trent Verduzco [phone] Menopause 08/29/2002 02/23/2017 LOC PRIM [id number] 05/29/200206/23 Dyslipidemia, goal to be determined 05/29/2002 05/07/2009 Overview: Per Lipid Taxonomy. 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 * Telephone Encounter - Mable Gonzalez RPh - 04/18/2023 12:03 PM EST Nikki, Patient seen in [facility] Pharmacy pain today. Recommending to be seen by ortho as having left hip pain that is limiting mobility and function. Please place referral if agreeable. Thank you, Mable Gonzalez, Pharm D, [facility] Clinical Pharmacist 04/18/2023, 12:04 PM documented in this encounter Plan of Treatment Upcoming Encounters Date Type Department Care Team (Late st Contact Info) Description 05/03/2023 2:00 PM EST Office Visit Orthopaedics [facility] [address] [place] [address] Rosemarie Amanda MD [address] [place] [address] 05/25/2023 4:00 PM EST Home Visit [facility] [address] [place] [address] Areli Washburn RN [address] [place] [address] 06/29/2023 8:30 AM EST Office Visit Cardiology, [facility] [address] [place] [address] Nikole Crenshaw PA-C [address] [place] [address] 06/29/2023 9:00 AM EST Office Visit Pharmacy, [facility] 132 [facility] [place] [address] Jah [facility] [place] [address] 06/29/2023 11:00 AM EST Office Visit Otolaryngology [facility] [address] [facility] [place] [address] Laurie Herrmann PA-C [facility] [place] [address] 07/05/2023 3:40 PM EST Office Visit Neurology [facility] [address] [facility] [place] [address] Ashlie Swift MD [address] [facility] [place] [address] Scheduled Referrals Name Type Priority Associated Diagnoses Order Schedule ORTHOPAEDICS REFERRAL OP Referral Within 30 days (routine) Hip pain, left Ordered: 04/18/2023 Health Maintenance Due Date Last Done Comments DISCUSS TOBACCO CESSATION (REFER TO SMARTSET #2499) 1945 Alpha-1 Antitrypsin 1965 Diabetic Eye Exam 1965 Diabetic Foot Exam 1965 DXA Scan 09/04/2016 09/04/2013, 09/04/2013 *ADVANCE DIRECTIVE NOT ON FILE 06/09/2019 COVID-19 Vaccine ( season) 2023 11/12/2020, 10/01/2020 Depression Screening 06/02/2023 06/02/2022 HbA1c 09/01/2023 03/02/2023, 12/21, 08/19/2006, Additional history exists GFR 10/17/2023 04/18/2023, 02/20, 03/13/2023, Additional history exists Albumin/Creatinine Ratio 03/02/2024 023, 02/21/2022, 07/23/2019 CKD PHOS USE SMARTSET 44736 03/02/202402/19, 10/07/2022, 02/21/2022, Additional history exists CKD HGB USE SMARTSET 83867 03/15/202403/15, 03/02/2023, 03/02/2023, Additional history exists O2 [...] Pain in joint, pelvic region and thigh documented in this encounter Advance Directives Latest [...] the patient have Health Care Power of Felt Finishing Supervisor? No Healthcare Agents on File Name Relationship [facility] Agent [facility] Communication Lacy Tong Adult Child Health Care Repr esentative (appointed verbally by patient or by statute hierarchy) Care Teams Hospital Wellness Coordinator Relationship Specialty Start Date End Date Roman Ennis III, MD [address] [place] [address] PCP - General Family Medicine 06/28/18 documented as of this encounter
--- OUTSIDE RECORDS SUMMARY | 2023-06-29 05:28 | External Medical Summary | Summary of Care ---
Author Name Unknown Organization [facility] Address [address] [place] [address] Phone [phone] Care Team Providers Care Rfid Engineer Name Role Phone Loli NORWOOD MD, Roman Barraza Primary Care Provider [phone] Reason for Visit * Reason Onset Date Comments Test Results 04/21/2023 Labs- symptom up date- LMTCB 04/21/23 Encounter Details Date Type Department Care Team (Late st Contact Info) Description 04/21/2023 Telephone Cardiology, [facility] [address] [place] [address] Nikole Crenshaw PA-C [address] [place] [address] Test Results (Labs- symptom update- LMTCB ... Allergies Active Allergy Reactions Criticality Noted Date Comments Isosorbide Mononitrate 12/24/2007 Severe headaches Nsaids 05/29/2002 Tramadol Hcl Nausea/vomiting Low 01/09/2008 UGI distress documented as of this encounter (statuses as of 04/24/2023) Medications Medication Sig Dispensed Refills Start Date [...] as of this encounter (statuses as of 04/24/2023) Active Problems Problem Noted Date Diagnosed Date [...] /min) 05/11/2018 Coronary artery disease invo lving [place] coronary artery of [place] heart without angina pectoris 05/08/2018 Anxiety state [...] MYOCARDIAL INFARCT 12/11/2008 Overview: Modified by Acute [place] Protocol #5. [facility] [place] bare metal stents S/P angioplasty with stent 09/07/2006 History of tobacco use documented as of this encounter (statuses as of 04/24/2023) Resolved Problems Problem Noted Date Diagnosed Date [...] for Patients with Cardiovascular Disease Project #: [id number] PI: Peyton Conn MD [phone] [employer] CARDIO RESEARCH OTHER*[id number] 01/15/2007 06/28/2016 Overview: Renamed Per Clinical Trials Billing Project. Study Title: Genomic Markers for Patients with Cardiovascular Disease Project #: [id number] PI: Peyton Conn MD [phone] LV (left ventricular) mural thrombus 10/30/2006 12/28/2017 Tobacco use disorder 09/07/2006 010 Acute inferior myocardial infarction 08/19/2006 12/11/2008 Overview: Modified by Acute [place] Protocol #5. [facility] [place] coronary bare metal stents EXAMINATION OF PARTICIPANT I N CLINICAL TRIAL - [place] 08/19/2006 09/04/2009 Overview: Renamed Per Clinical Trials Billing Project. [facility] AMI clinical trial 263 Single blind trial comparing heparin and IIB/IIIA with bivalirudin, and Taxus vs bare metal stent. Patient Follow-up for 5 years Reel Cutter: Ternt Verduzco [phone] [facility] Clinical Trial*[id number] 08/19/2006 09/08/2014 Overview: Renamed Per Clinical Trials Billing Project. [facility] AMI clinical trial 263 Single blind trial comparing heparin and IIB/IIIA with bivalirudin, and Taxus vs bare metal stent. Patient Follow-up for 5 years Reel Cutter: Trent Verduzco [phone] Menopause 08/29/2002 02/23/2017 LOC PRIM [id number] 05/29/200206/23 Dyslipidemia, goal to be determined 05/29/2002 05/07/2009 Overview: Per Lipid Taxonomy. 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 * Tele[facility] En[facility] - 04/21/[facility]23 2:34 PM EST LMTCB. HUNG Frank 04/21/2023 2:35 PM * Telephone Encounter - [...] 05/03/2023 2:00 PM EST Office Visit Orthopaedics [facility] [address] [place] [address] Rosemarie Amanda MD [address] [place] [address] 05/25/2023 4:00 PM EST Home Visit [facility] [address] [place] [address] Areli Washburn RN [address] [place] [address] 06/29/2023 8:30 AM EST Office Visit Cardiology, [facility] [address] [place] [address] Nikole Crenshaw PA-C [address] [place] [address] 06/29/2023 9:00 AM EST Office Visit Pharmacy, [facility] [address] [place] [address] Jah [facility] [place] [address] 06/29/2023 11:00 AM EST Office Visit [facility]ol[facility]ology [facility] [place] [address] Laurie Herrmann PA-C [address] [place] [address] 07/05/2023 3:40 PM EST Office Visit Neurology [facility] [address] [facility] [place] [address] Ashlie Swift MD 200 [facility] [place] [address] Health Maintenance Due Date Last Done Comments [...] 023, 02/21/2022, 07/23/2019 CKD PHOS USE SMARTSET 72305 03/02/202402/19, 10/07/2022, 02/21/2022, Additional history exists CKD HGB USE SMARTSET 89013 03/15/202403/15, 03/02/2023, 03/02/2023, Additional history exists O2 [...] the patient have Health Care Power of Ballast Inspector? No Healthcare Agents on File Name Relationship Healthcare Agent Relationshi p Communication Lacy Tong Adult Child Health Care Repr esentative (appointed verbally by patient or by statute hierarchy) Care Teams Rfid Engineer Relationship Specialty Start Date End Date Roman Ennis III, MD [address] [place] [address] PCP - General Family Medicine 06/28/18 documented as of this encounter
--- OUTSIDE RECORDS SUMMARY | 2023-06-29 05:28 | External Medical Summary | Summary of Care ---
Author Name Unknown Organization [facility] Address [address] [facility] [place] [address] Phone [phone] Care Team Providers Care Shelf Filler Name Role Phone Loli NORWOOD MD, Roman Barraza Primary Care Provider [phone] Reason for Visit * Reason Onset Date Comments Hospital Follow-Up 01/20/2023 Encounter Details Date Type Department Care Team (Late st Contact Info) Description 01/20/2023 Telephone General Internal Medicine [facility] [place] [address] [facility] [place] [address] Roman Ennis III, MD [address] [facility] [place] [address] Hospital Follow-Up Allergies Active Allergy Reactions Criticality Noted Date Comments Isosorbide Mononitrate 12/24/2007 Severe headaches Nsaids 05/29/2002 Tramadol Hcl Nausea/vomiting Low 01/09/2008 UGI distress documented as of this encounter (statuses as of 04/21/2023) Medications Medication Sig Dispensed Refills Start Date End Date Status Ventolin HFA 108 (90 Base) MCG/ACT Inhalation Aerosol Solution Inhale 2 Puffs by mouth every 4 hours as needed for Wheezing or Dyspnea. 54 g 1 1 Active Additional Information Patient not taking.Reported on 04/04/2023 Cyanocobalamin 1000 MCG Oral Tablet (Cyanocobalamin) Take by mouth 1 Tablet in the morning. 100 Tablet 5 2 Active Aspirin 81 MG TabletIndications: F/u of acute inferior myocardial infarction Take 1 Tablet by mouth in the morning. 0 7 023 Discontinued nitroglycerin (NITROSTAT) 0.4 MG SUBLIndications: CVD (arteriosclerotic cardiovascular disease),Chest pain, unspecified type one tab under tongue as needed for chest pain maximum 3 doses 25 Tab 5 9 023 Discontinued Anoro Ellipta 62.5-25 MCG/INH Inhalation Aerosol Powder Breath Activated (umeclidinium-eusebia nterol) Inhale 1 Puff by mouth daily. 180 Blister Dosing Unit 1 1 023 Discontinued Pantoprazole Sodium 40 MG Oral Tablet Delayed Release (Protonix)Indicati ons:Abdominal pain, epigastric TAKE ONE TABLET BY MOUTH DAILY 30 MINUTES BEFORE FIRST meal of THE DAY 90 Tablet 3 2 023 Discontinued(Re fill) Lisinopril 20 MG Oral Tablet (Prinivil)Indicati ons:HTN, goal to be determined TAKE ONE TABLET BY MOUTH EVERY DAY 90 Tablet 3 2 023 Discontinued(Re fill) Gabapentin 300 MG Oral Capsule (Neurontin) Take 1 Capsule by mouth in the morning and 1 Capsule at noon and 1 Capsule before bedtime. 90 Capsule 11 3 023 Discontinued(Re fill) Atorvastatin Calcium 40 MG Oral Tablet (Lipitor) TAKE ONE TABLET BY MOUTH EVERY DAY 90 Tablet 1 3 023 Discontinued Metoprolol Succinate ER 100 MG Oral Tablet Extended Release 24 Hour (toPROL XL)Indications:Acu te inferior myocardial infarction (HCC),ASCVD (arteriosclerotic cardiovascular disease) TAKE ONE TABLET BY MOUTH EVERY DAY 90 Tablet 1 3 023 Discontinued Apixaban 5 MG Oral Tablet (Eliquis) Take 1 Tablet by mouth 2 times a day. 0 3 023 Discontinued(Re fill) levETIRAcetam 500 MG Oral Tablet (Keppra) Take 1 Tablet by mouth in the morning and 1 Tablet before bedtime. 0 3 023 Discontinued(Re fill) Venlafaxine HCl ER 150 MG Oral Capsule Extended Release 24 Hour (Effexor XR) Take 1 Capsule by mouth at bedtime. 0 023 Discontinued(Fl dication List Clean Up) traZODone HCl 50 MG Oral Tablet (Desyrel) Take 0.5 Tablets by mouth at bedtime. 30 Tablet 5 3 023 Discontinued(Re fill) cloNIDine HCl 0.1 MG Oral Tablet (Catapres) Take 0.5 Tablets by mouth in the morning. 15 Tablet 11 3 023 Discontinued(Re fill) Furosemide 40 MG Oral Tablet (Lasix) Take 1 Tablet by mouth in the morning. 30 Tablet 11 3 023 Discontinued(Re fill) Potassium Chloride Kim ER 20 MEQ Oral Tablet Extended Release TAKE ONE TABLET BY MOUTH EVERY DAY 30 Tablet 11 3 023 Discontinued(Re fill) oxyCODONE HCl 5 MG Oral Tablet (Oxy IR)Indications:Chr onic pain syndrome Take 1 Tablet by mouth every 6 hours as needed for Pain, Severe. 100 Tablet 0 3 023 Discontinued Ondansetron HCl 4 MG Oral Tablet (Zofran)Indication s:Nausea Take 1 Tablet by mouth every 8 hours as needed for Nausea. 20 Tablet 0 3 023 Discontinued(Re fill) hydrOXYzine HCl 25 MG Oral Tablet TAKE ONE TABLET BY MOUTH THREE TIMES DAILY NEEDED FOR ANXIETY 90 Tablet 2 3 023 Discontinued(Re fill) Clopidogrel Bisulfate 75 MG Oral Tablet (Plavix) Take 1 Tablet by mouth in the morning. 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 [facility] right coronary bare metal stents S/P angioplasty with stent 09/07/2006 History of tobacco use documented as of this encounter (statuses as of 04/21/2023) Resolved Problems Problem Noted Date Diagnosed Date [...] for Patients with Cardiovascular Disease Project #: [id number] PI: Peyton Conn MD [phone] GENOMICS CARDIO RESEARCH OTHER*[id number] 01/15/2007 06/28/2016 Overview: Renamed Per Clinical Trials Billing Project. Study Title: Genomic Markers for Patients with Cardiovascular Disease Project #: [id number] PI: Peyton Conn MD [phone] LV (left ventricular) mural thrombus 10/30/2006 12/28/2017 Tobacco use disorder 09/07/2006 010 Acute inferior myocardial infarction 08/19/2006 12/11/2008 Overview: Modified by Acute [place] Protocol #5. [facility] right coronary bare metal stents EXAMINATION OF PARTICIPANT I N CLINICAL TRIAL - [facility] 08/19/2006 09/04/2009 Overview: Renamed Per Clinical Trials Billing Project. [facility] AMI clinical trial 263 Single blind trial comparing heparin and IIB/IIIA with bivalirudin, and Taxus vs bare metal stent. Patient Follow-up for 5 years Cart Driver: Trent Verduzco [phone] [facility] Clinical Trial*[id number] 08/19/2006 09/08/2014 Overview: Renamed Per Clinical Trials Billing Project. [facility] AMI clinical trial 263 Single blind trial comparing heparin and IIB/IIIA with bivalirudin, and Taxus vs bare metal stent. Patient Follow-up for 5 years Cart Driver: Trent Verduzco [phone] Menopause 08/29/2002 02/23/2017 LOC PRIM [id number] 05/29/200206/23 Dyslipidemia, goal to be determined 05/29/2002 05/07/2009 Overview: Per Lipid Taxonomy. 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. * Telephone Encounter - Charissa Michelle LPN - 01/24/2023 10:32 AM EDT Please advise if pt needs hospital f/u visit. If so will request appt at [facility]. * Telephone Encounter - Guanako Whitten RN - 01/20/2023 3:35 PM EDT Patient discharged to home from [facility] 01/19/23. While inpt, Nephrology was consulted for ARF. No recommendations provided, unsure if follow up is needed. Please determine and reach out to patient if needed. Thank you documented in this encounter Plan of Treatment Upcoming Encounters Date Type Department Care Team (Late st Contact Info) Description 05/03/2023 2:00 PM EST Office Visit Orthopaedics [facility] [address] [place] [address] Rosemarie Amanda MD [address] [place] [address] 05/25/2023 4:00 PM EST Home Visit [facility] [address] [place] [address] Areli Washburn RN [address] [place] [address] 06/29/2023 8:30 AM EST Office Visit Cardiology, [facility] [address] [facility] [place] [address] Nikole Crenshaw PABo [address] [place] [address] 06/29/2023 9:00 AM EST Office Visit Pharmacy, [facility] [address] [facility] [place] [address] [facility] 132 [facility] [place] [address] 06/29/2023 11:00 AM EST Office Visit Otolaryngology [facility] [address] [facility] [place] [address] Laurie Herrmann PA-C [address] [place] [address] 07/05/2023 3:40 PM EST Office Visit Neurology [facility] 200 [facility] [place] [address] Ashlie Swift MD 200 [facility] [place] [address] Health Maintenance Due Date Last Done Comments [...] 023, 02/21/2022, 07/23/2019 CKD PHOS USE SMARTSET 15534 03/02/202402/19, 10/07/2022, 02/21/2022, Additional history exists CKD HGB USE SMARTSET 35817 03/15/202403/15, 03/02/2023, 03/02/2023, Additional history exists O2 [...] the patient have Health Care Power of Amusement Or Recreation Card Checker? No Healthcare Agents on File Name Relationship Healthcare Agent Relationshi p Communication Lacy Tong Adult Child Health Care Repr esentative (appointed verbally by patient or by statute hierarchy) Care Teams Shelf Filler Relationship Specialty Start Date End Date Roman Ennis III, MD [address] [facility] [place] [address] PCP - General Family Medicine 06/28/18 documented as of this encounter
--- OUTSIDE RECORDS SUMMARY | 2023-06-29 05:29 | External Medical Summary | Summary of Care ---
Author Name Unknown Organization [facility] Address [address] [place] [address] Phone [phone] Care Team Providers Care Division Order Technician Name Role Phone Loli NORWOOD MD, Roman Barraza Primary Care Provider [phone] Reason for Visit * Reason Onset Date Comments Appointment 04/17/2023 Encounter Details Date Type Department Care Team (Late st Contact Info) Description 04/17/2023 Telephone Cardiology, [facility] [address] [facility] [address] Appointment Allergies Active Allergy Reactions Criticality Noted Date Comments Isosorbide Mononitrate 12/24/2007 Severe headaches Nsaids 05/29/2002 Tramadol Hcl Nausea/vomiting Low 01/09/2008 UGI distress documented as of this encounter (statuses as of 04/17/2023) Medications Medication Sig Dispensed Refills Start Date [...] as of this encounter (statuses as of 04/17/2023) Active Problems Problem Noted Date Diagnosed Date [...] /min) 05/11/2018 Coronary artery disease invo lving camp[place] coronary artery of campo heart without angina pectoris 05/08/2018 Anxiety state [...] MYOCARDIAL INFARCT 12/11/2008 Overview: Modified by Acute [place] Protocol #5. [facility] [place] coronary bare metal stents S/P angioplasty with stent 09/07/2006 History of tobacco use documented as of this encounter (statuses as of 04/17/2023) Resolved Problems Problem Noted Date Diagnosed Date [...] for Patients with Cardiovascular Disease Project #: [id number] PI: Peyton Conn MD [phone] GENOMICS CARDIO RESEARCH OTHER*[id number] 01/15/2007 06/28/2016 Overview: Renamed Per Clinical Trials Billing Project. Study Title: Genomic Markers for Patients with Cardiovascular Disease Project #: [id number] PI: Peyton Conn MD [phone] LV (left ventricular) mural thrombus 10/30/2006 12/28/2017 Tobacco use disorder 09/07/2006 010 Acute inferior myocardial infarction 08/19/2006 12/11/2008 Overview: Modified by Acute [place] Protocol #5. [facility] right coronary bare metal stents EXAMINATION OF PARTICIPANT I N CLINICAL TRIAL - HORIZONS 08/19/2006 09/04/2009 Overview: Renamed Per Clinical Trials Billing Project. [facility] AMI clinical trial 263 Single blind trial comparing heparin and IIB/IIIA with bivalirudin, and Taxus vs bare metal stent. Patient Follow-up for 5 years Hostess Cashier: Trent Verduzco [phone] [facility] Clinical Trial*[id number] 08/19/2006 09/08/2014 Overview: Renamed Per Clinical Trials Billing Project. [facility] AMI clinical trial 263 Single blind trial comparing heparin and IIB/IIIA with bivalirudin, and Taxus vs bare metal stent. Patient Follow-up for 5 years Hostess Cashier: Trent Verduzco [phone] Menopause 08/29/2002 02/23/2017 LOC PRIM [id number] 05/29/200206/23 Dyslipidemia, goal to be determined 05/29/2002 05/07/2009 Overview: Per Lipid Taxonomy. 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 Pt's daughter who will be bringing her is aware. Phamacy appt also moved up from 1400 to 1110. documented in this encounter Plan of Treatment Upcoming Encounters Date Type Department Care Team (Late st Contact Info) Description 04/18/2023 10:30 AM EST Cardiac Studies Cardiology, [facility] 132 [facility] [place] [address] [facility] [address] [place] [address] 04/18/2023 11:10 AM EST Office Visit Pharmacy, [facility] [address] [facility] [place] [address] [facility] [address] [place] [address] 05/25/2023 4:00 PM EST [facility] Visit [facility] [place], [facility] [address] [place] [address] Areli Washburn, RN [address] [place] [address] 06/29/2023 8:30 AM EST Office Visit Cardiology, [facility] [address] [place] [address] Nikole Crenshaw, YOGESH [address] [place] [address] 07/05/2023 3:40 PM EST Office Visit Neurology [facility] 200 [place] [address] Ashlie Swift MD [address] [place] [address] Health Maintenance Due Date Last Done Comments DISCUSS TOBACCO CESSATION (REFER TO SMARTSET #3291) 1945 Alpha-1 Antitrypsin 1965 Diabetic Eye Exam 1965 Diabetic Foot Exam 1965 DXA Scan 09/04/2016 09/04/2013, 09/04/2013 *ADVANCE DIRECTIVE NOT ON FILE 06/09/2019 COVID-19 Vaccine ( season) 2023 11/12/2020, 10/01/2020 Depression Screening 06/02/2023 06/02/2022 HbA1c 09/01/2023 03/02/2023, 12/21, 08/19/2006, Additional history exists GFR 09/14/2023 03/15/2023, 02/20, 03/02/2023, Additional history exists Albumin/Creatinine Ratio 03/02/2024 023, 02/21/2022, 07/23/2019 CKD PHOS USE SMARTSET 85159 03/02/202402/19, 10/07/2022, 02/21/2022, Additional history exists CKD HGB USE SMARTSET 12815 03/15/202403/15, 03/02/2023, 03/02/2023, Additional history exists O2 ASSESSMENT COMPLETED IN PAST YEAR FOR COPD 04/04/2024 04/04/2023 DTaP,Tdap,and Td Vaccines (4 - Td or [...] the patient have Health Care Power of Transportation Planning Engineer? No Healthcare Agents on File Name Relationship Healthcare Agent Relationshi p Communication Lacy Tong Adult Child Health Care Repr esentative (appointed verbally by patient or by statute hierarchy) Care Teams Division Order Technician Relationship Specialty Start Date End Date Roman Ennis III, MD [address] [facility] [place] [address] PCP - General Family Medicine 06/28/18 documented as of this encounter
--- OUTSIDE RECORDS SUMMARY | 2023-06-29 05:29 | External Medical Summary | Summary of Care ---
Author Name Unknown Organization [facility] Address [address] [place] [facility] [place] [address] Phone [phone] Care Team Providers Care Rag Baler Name Role Phone Loli NORWOOD MD, Roman Barraza Primary Care Provider [phone] Reason for Visit * Reason Comments Dosage Adjustment In Person (Anticoag Cl inic) Pain Encounter Details Date Type Department Care Team (Late st Contact Info) Description 04/18/2023 11:10 AM EST Office Visit Pharmacy, [facility] 132 [facility] [place] [address] [facility] 132 [facility] [place] [address] Chronic pain syndrome* Allergies Active Allergy Reactions Criticality Noted Date Comments Isosorbide Mononitrate 12/24/2007 Severe headaches Nsaids 05/29/2002 Tramadol Hcl Nausea/vomiting Low 01/09/2008 UGI distress documented as of this encounter (statuses as of 04/18/2023) Medications Medication Sig Dispensed Refills Start Date [...] as of this encounter (statuses as of 04/18/2023) Active Problems Problem Noted Date Diagnosed Date [...] /min) 05/11/2018 Coronary artery disease invo lving [place] coronary artery of [place] heart without angina pectoris 05/08/2018 Anxiety state [...] Overview: Modified by Acute [place] Protocol #5. [facility] right coronary bare metal stents S/P angioplasty with stent 09/07/2006 History of tobacco use documented as of this encounter (statuses as of 04/18/2023) Resolved Problems Problem Noted Date Diagnosed Date [...] for Patients with Cardiovascular Disease Project #: [id number] PI: Peyton Conn MD [phone] GENOMICS CARDIO RESEARCH OTHER*[id number] 01/15/2007 06/28/2016 Overview: Renamed Per Clinical Trials Billing Project. Study Title: Genomic Markers for Patients with Cardiovascular Disease Project #: [id number] PI: Peyton Conn MD [phone] LV (left ventricular) mural thrombus 10/30/2006 12/28/2017 Tobacco use disorder 09/07/2006 010 Acute inferior myocardial infarction 08/19/2006 12/11/2008 Overview: Modified by Acute [place] Protocol #5. [facility] right coronary bare metal stents EXAMINATION OF PARTICIPANT I N CLINICAL TRIAL - HORIZONS 08/19/2006 09/04/2009 Overview: Renamed Per Clinical Trials Billing Project. [facility] AMI clinical trial 263 Single blind trial comparing heparin and IIB/IIIA with bivalirudin, and Taxus vs bare metal stent. Patient Follow-up for 5 years Punchboard Assembler: Trent Verduzco [phone] [facility] Clinical Trial*[id number] 08/19/2006 09/08/2014 Overview: Renamed Per Clinical Trials Billing Project. [facility] AMI clinical trial 263 Single blind trial comparing heparin and IIB/IIIA with bivalirudin, and Taxus vs bare metal stent. Patient Follow-up for 5 years Punchboard Assembler: Trent Verduzco [phone] Menopause 08/29/2002 02/23/2017 LOC PRIM [id number] 05/29/200206/23 Dyslipidemia, goal to be determined 05/29/2002 05/07/2009 Overview: Per Lipid Taxonomy. 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 Patient presents to pain MTM clinic for return visit. Referring Physician: Dr. Roman Ennis Medication Agreement: on file 07/18/[address] Ennis Patient's Pharmacy: [facility] Chief Complaint: sciatic pain HPI: Patient dealing with left hip pain, has not had imaging or seen for this yet Daughter in law was with patient today Notes that her oxycodone is not lasting and giving enough pain relief, interested in rotating medications Psych History: anxiety state Cardiac Hx: [place] Renal Hx: kidney disease Hepatic Hx: Hep C-cured Other: COPD Illicit Substance/Rx/Alcohol Abuse: no Opioid Risk Assessment Tool (BRQ): 0 Functional Goal: QOL Current Pain Level (04/18/23): stable Pain Level (10/19/22): stable Pain Level (04/20/22): stable Pain Level (10/19/21):stable Pain Level (05/12/21): stable Pain Level: Stable Pain Level (09/29/20): stable, but the sciatica pain is very bothersome Pain Level (3/9/21): stable Pain Level (06/02/20): stable Pain Level (03/03/20): stable Pain Level (01/21/20):stable Pain Level (01/31/19):improved Pain Level (12/18/18):improving Pain Level (10/30/18):improving Pain Level Initial Visit (09/18/2018): not accessed today due to anxiety Past Pain Medications: Tylenol Percocet vicodin Cymbalta 60 mg daily -nausea Current Pain Medications: Oxycodone 5 mg X1wdlqu max 4 per day/100 per month (03/29/22 for 100 tabs) - feels not helping Venlafaxine 75 mg HS Gabapentin 100 mg TID *trazadone , eliquis Creatinine Clearance: Serum creatinine: 1.1 mg/dL (H) 03/15/23 0738 Estimated creatinine clearance: 38.9 mL/min (A) Creatinine Results: Recent Labs Units 03/15/23 0738 03/13/23 1210 03/02/23 0917 CREATININE - [facility] mg/dL 1.1* 1.0 1.5* Hepatic Function (ALT): Recent Labs Units 03/02/23 0917 02/21/22 1523 ALT - [facility] U/L 15 15 Comprehensive Metabolic Panel Results: Results for orders placed or performed in visit on 03/02/23 COMPREHENSIVE METABOLIC PANEL Result Value Ref Range BUN 37 (H) 6 - 20 mg/dL Creatinine 1.5 (H) 0.5 - 1.0 mg/dL Estimated Glomerular Filtration Rate 36 (L) >=60 mL/min Sodium 138 135 - 146 mmol/L Potassium 5.6 (H) 3.5 - 5.1 mmol/L Chloride 102 98 - 107 mmol/L CO2 24 22 - 32 mmol/L Anion Gap 12 7 - 15 mmol/L Glucose 98 70 - 120 mg/dL Albumin 4.6 3.8 - 5.0 g/dL AST 12 10 - 35 U/L Alkaline Phosphatase 64 35 - 130 U/L Bilirubin, Total 0.3 <=1.2 mg/dL Calcium 9.3 8.4 - 10.2 mg/dL Protein 6.9 6.0 - 8.3 g/dL ALT 15 10 - 35 U/L ASSESSMENT: Patient aware MTM is a clinical pharmacist visit, with focus on medication options for current diagnoses referred by Primary Care Provider for review and optimization. Focus of this visit is Medication Optimization. Current concerns: left hip pain Adherence: Reviewed current regimen, patient is adherent to regimen. Treatment options: rotate oxycodone to hydrocodone Treatment concerns: left hip pain Education provided: discussed seeing ortho and rotating opioids I have evaluated the patient for the appropriateness and necessity of opioid pain medications. Patient has been educated towards the benefits and risks of opioid medications, including dependence, addiction, and overdose. Patient is aware of the requirements set out in the medication use agreement,including the need for routine urine drug screening. No red flags for abuse or misuse have been exhibited. PLAN: Rotate: Stop oxycodone Start hydrocodone 5 mg/325 mg QID prn Medication changes: yes, see below Pain Medications: STOP: Oxycodone 5 mg Q6kngwq max 4 per day/100 per month (03/29/22 for 100 tabs) - feels not helping START: hydrocodone 5/325 mg QID prn Venlafaxine 75 mg HS Gabapentin 100 mg TID *jonnathan toddquis Patient verbalized understanding of the plan. Contact clinic with any issues. FOLLOW UP: Return to clinic in 12 weeks 06/29/2023 Mable Gonzalez RPh Clinical Pharmacist - Showroom Sales Assistant Medication Therapy Management Clinic 04/18/2023, 10:54 AM documented in this encounter Plan of Treatment Upcoming Encounters Date Type Department Care Team (Late st Contact Info) Description 05/25/2023 4:00 PM EST Home Visit [facility] [address] [place] [address] Areli Washburn, LISA [address] [place] [address] 06/29/2023 8:30 AM EST Office Visit Cardiology, [facility] [address] [place] [address] Nikole Crenshaw PA-C [address] [place] [address] 06/29/2023 9:00 AM EST [facility] [address] [place] [address] [facility] [address] [place] [address] 07/05/2023 3:40 PM EST Office Visit Neurology [facility] [place] [address] [place] [address] Ashlie Swift MD [address] [place] [address] Health Maintenance Due Date Last Done Comments DISCUSS TOBACCO CESSATION (REFER TO SMARTSET #5898) 1945 Alpha-1 Antitrypsin 1965 Diabetic Eye Exam 1965 Diabetic Foot Exam 1965 DXA Scan 09/04/2016 09/04/2013, 09/04/2013 *ADVANCE DIRECTIVE NOT ON FILE 06/09/2019 COVID-19 Vaccine ( season) 2023 11/12/2020, 10/01/2020 Depression Screening 06/02/2023 06/02/2022 HbA1c 09/01/2023 03/02/2023, 12/21, 08/19/2006, Additional history exists GFR 09/14/2023 03/15/2023, 02/20, 03/02/2023, Additional history exists Albumin/Creatinine Ratio 03/02/2024 023, 02/21/2022, 07/23/2019 CKD PHOS USE SMARTSET 11384 03/02/202402/19, 10/07/2022, 02/21/2022, Additional history exists CKD HGB USE SMARTSET 98772 03/15/202403/15, 03/02/2023, 03/02/2023, Additional history exists O2 [...] this encounter Visit Diagnoses Diagnosis Chronic pain syndrome- Primary documented in this encounter Advance Directives Latest [...] the patient have Health Care Power of Data Communications Engineer? No Healthcare Agents on File Name Relationship Healthcare Agent Relationshi p Communication Lacy Tong Adult Child Health Care Repr esentative (appointed verbally by patient or by statute hierarchy) Care Teams Rag Baler Relationship Specialty Start Date End Date Roman Ennis III, MD [address] [place] [address] PCP - General Family Medicine 06/28/18 documented as of this encounter
--- OUTSIDE RECORDS SUMMARY | 2023-06-29 05:29 | External Medical Summary | Summary of Care ---
Author Name Unknown Organization [facility] Address [address] [facility] [place] [address] Phone [phone] Care Team Providers Care Yeast Washer Name Role Phone Loli NORWOOD MD, Roman Barraza Primary Care Provider [phone] Reason for Visit * Reason Onset Date Comments Follow Up 04/17/2023 Encounter Details Date Type Department Care Team (Late st Contact Info) Description 04/17/2023 Telephone [facility], [facility] [address] [employer] [address] [place] [address] Areli Washburn, LISA [address] [employer] [place] [address] Follow Up Allergies Active Allergy Reactions Criticality Noted Date [...] oxyCODONE HCl 5 MG Oral Tablet (Oxy IR)Indications:After School Coordinator fernando pain syndrome Take 1 Tablet by mouth every 6 hours as needed (pain). 100 Tablet 0 04/12/2023 Active cloNIDine HCl 0.1 MG Oral Tablet (Catapres) Take 0.5 Tablets by mouth in the morning. 0 04/17/20 23 Discontinu ed(Medicat ion List Clean Up) documented [...] /min) 05/11/2018 Coronary artery disease invo lving ramp[place] coronary artery of rampart heart without angina pectoris 05/08/2018 Anxiety state [...] MYOCARDIAL INFARCT 12/11/2008 Overview: Modified by Acute [place] Protocol #5. [facility] [...] for Patients with Cardiovascular Disease Project #: [id number] PI: Peyton Conn MD [phone] GENOMICS CARDIO RESEARCH OTHER*[id number] 01/15/2007 06/28/2016 Overview: Renamed Per Clinical Trials Billing Project. Study Title: Genomic Markers for Patients with Cardiovascular Disease Project #: [id number] PI: Peyton Conn MD [phone] LV (left ventricular) mural thrombus 10/30/2006 12/28/2017 Tobacco use disorder 09/07/2006 010 Acute inferior myocardial infarction 08/19/2006 12/11/2008 Overview: Modified by Acute [place] Protocol #5. [facility] [place] right coronary bare metal stents EXAMINATION OF PARTICIPANT I N CLINICAL TRIAL - HORIZONS 08/19/2006 09/04/2009 Overview: Renamed Per Clinical Trials Billing Project. [facility] AMI clinical trial 263 Single blind trial comparing heparin and IIB/IIIA with bivalirudin, and Taxus vs bare metal stent. Patient Follow-up for 5 years Aeronautical Inspector: Trent Verduzco [phone] [facility] Clinical Trial*[id number] 08/19/2006 09/08/2014 Overview: Renamed Per Clinical Trials Billing Project. [facility] AMI clinical trial 263 Single blind trial comparing heparin and IIB/IIIA with bivalirudin, and Taxus vs bare metal stent. Patient Follow-up for 5 years Aeronautical Inspector: Trent [place] Verduzco [phone] Menopause 08/29/2002 02/23/2017 LOC PRIM [id number] 05/29/200206/23 Dyslipidemia, goal to be determined 05/29/2002 [...] encounter Miscellaneous Notes * Telephone Encounter - Kelly Tracy LPN - 04/18/2023 4:38 PM EST Spoke with patient making her aware form has been completed. Requests it be mailed to her. Address verified. * Telephone Encounter - Lianna Olguin LPN - 04/18/2023 12:40 PM EST Started and placed on desk for completion * Telephone Encounter - Xuan Xie DO - 04/18/2023 12:28 PM EST I can fill out if you want to start form and I will sign, place on my desk, TY Xuan Xie DO * Telephone Encounter - Areli Washburn RN - 04/17/2023 11:[address] Ennis, Patient is asking for a handicap parking permit. Would you be willing to fill out the form and Radha could pick it up at the office? Thank you! Areli documented in this encounter Plan of Treatment Upcoming Encounters Date Type Department Care Team (Late st Contact Info) Description 05/25/2023 4:00 PM EST Home Visit [facility] [place], [facility] [address] [place] [address] Areli Washburn RN [address] [place] [address] 06/29/2023 8:30 AM EST Office Visit Cardiology, [facility] [address] [place] [address] Nikole Crenshaw PA-C [address] [place] [address] 06/29/2023 9:00 AM EST Office Visit Pharmacy, [facility] [address] [place] [address] [facility] [address] [place] [address] 07/05/2023 3:40 PM EST Office Visit Neurology [facility] [place] [address] [facility] [address] Ashlie Swift MD [address] [facility] [place] [address] Health Maintenance Due Date Last Done Comments [...] 023, 02/21/2022, 07/23/2019 CKD PHOS USE SMARTSET 12623 03/02/202402/19, 10/07/2022, 02/21/2022, Additional history exists CKD HGB USE SMARTSET 30836 03/15/202403/15, 03/02/2023, 03/02/2023, Additional history exists O2 [...] the patient have Health Care Power of Gluing Machine Feeder? No Healthcare Agents on File Name Relationship Healthcare Agent Relationshi p Communication Lacy Tong Adult Child Health Care Repr esentative (appointed verbally by patient or by statute hierarchy) Care Teams Yeast Washer Relationship Specialty Start Date End Date Roman Ennis III, MD [address] [place] [address] PCP - General Family Medicine 06/28/18 documented as of this encounter
--- OUTSIDE RECORDS SUMMARY | 2023-06-29 05:29 | External Medical Summary | Summary of Care ---
Author Name Unknown Organization [facility] Address [address] [facility] [facility] [address] Phone [phone] Care Team Providers Care Radio Television Announcer Name Role Phone Loli NORWOOD MD, Roman Barraza Primary Care Provider [phone] Reason for Visit * Reason Comments Outpatient Testing Encounter Details Date Type Department Care Team (Late st Contact Info) Description 04/18/2023 11:40 AM EST Laboratory Laboratory, [facility] [address] [place] [id number] [facility] [address] [place] [address] Encounter for monitoring diuretic therapy Allergies Active Allergy Reactions Criticality Noted Date [...] /min) 05/11/2018 Coronary artery disease invo lving [place] coronary artery of [place] heart without angina pectoris 05/08/2018 Anxiety state [...] Overview: Modified by Acute [place] Protocol #5. [facility] right coronary bare metal stents [...] for Patients with Cardiovascular Disease Project #: [id number] PI: Peyton Conn MD [phone] GENOMICS CARDIO RESEARCH OTHER*[id number] 01/15/2007 06/28/2016 Overview: Renamed Per Clinical Trials Billing Project. Study Title: Genomic Markers for Patients with Cardiovascular Disease Project #: [id number] PI: Peyton Conn MD [phone] LV (left ventricular) mural thrombus 10/30/2006 12/28/2017 Tobacco use disorder 09/07/2006 010 Acute inferior myocardial infarction 08/19/2006 12/11/2008 Overview: Modified by Acute [place] Protocol #5. [facility] right coronary bare metal stents EXAMINATION OF PARTICIPANT I N CLINICAL TRIAL - HORIZONS 08/19/2006 09/04/2009 Overview: Renamed Per Clinical Trials Billing Project. [facility] [place] AMI clinical trial 263 Single blind trial comparing heparin and IIB/IIIA with bivalirudin, and Taxus vs bare metal stent. Patient Follow-up for 5 years Oncology Nurse Navigator: Trent Verduzco [phone] [facility] Clinical Trial*[id number] 08/19/2006 09/08/2014 Overview: Renamed Per Clinical Trials Billing Project. [facility] [place] AMI clinical trial 263 Single blind trial comparing heparin and IIB/IIIA with bivalirudin, and Taxus vs bare metal stent. Patient Follow-up for 5 years Oncology Nurse Navigator: Trent Verduzco [phone] Menopause 08/29/2002 02/23/2017 LOC PRIM [id number] 05/29/200206/23 Dyslipidemia, goal to be determined 05/29/2002 [...] Description 05/25/2023 4:00 PM EST Home Visit [facility] [address] [place] [address] Areli Washburn RN [address] [place] [address] 06/29/2023 8:30 AM EST Office Visit Cardiology, [facility] [address] [place] [address] Nikole Crenshaw PA-C [address] [place] [address] 07/05/2023 3:40 PM EST Office Visit Neurology [facility] [place] [address] [place] [address] Ashlie Swift MD [address] [facility] [place] [address] Pending Results Name Type Priority Associated Diagnoses Date /Time BASIC METABOLIC PANEL Lab Routine Encounter for monitoring diuretic therapy 04/18/2023 11:14 AM EST Health Maintenance Due Date Last Done Comments DISCUSS TOBACCO CESSATION (REFER TO SMARTSET #7414) 1945 Alpha-1 Antitrypsin 1965 Diabetic Eye Exam 1965 Diabetic Foot Exam 1965 DXA Scan 09/04/2016 09/04/2013, 09/04/2013 *ADVANCE DIRECTIVE NOT ON FILE 06/09/2019 COVID-19 Vaccine ( season) 2023 11/12/2020, 10/01/2020 Depression Screening 06/02/2023 06/02/2022 HbA1c 09/01/2023 03/02/2023, 12/21, 08/19/2006, Additional history exists GFR 09/14/2023 03/15/2023, 02/20, 03/02/2023, Additional history exists Albumin/Creatinine Ratio 03/02/2024 023, 02/21/2022, 07/23/2019 CKD PHOS USE SMARTSET 68507 03/02/202402/19, 10/07/2022, 02/21/2022, Additional history exists CKD HGB USE SMARTSET 34928 03/15/202403/15, 03/02/2023, 03/02/2023, Additional history exists O2 [...] as of this encounter Visit Diagnoses Diagnosis Encounter for monitoring diuretic therapy Encounter for therapeutic drug monitoring documented in this encounter Advance Directives Latest [...] patient have Health Care Power of Industrial Coffee Grinder? No Healthcare Agents on File Name Relationship Healthcare Agent Relationshi p Communication Lacy Tong Adult Child Health Care Repr esentative (appointed verbally by patient or by statute hierarchy) Care Teams Radio Television Announcer Relationship Specialty Start Date End Date Roman Ennis III, MD [address] [place] [address] PCP - General Family Medicine 06/28/18 documented as of this encounter
--- OUTSIDE RECORDS SUMMARY | 2023-06-29 05:29 | External Medical Summary | Summary of Care ---
Author Name Unknown Organization [facility] Address [address] [facility] [place] [address] Phone [phone] Care Team Providers Care Concrete Mixing Plant Laborer Name Role Phone Loli NORWOOD MD, Roman Barraza Primary Care Provider [phone] Reason for Visit * Reason Onset Date Comments Follow Up 04/17/2023 Encounter Details Date Type Department Care Team (Late st Contact Info) Description 04/17/2023 Telephone [facility], [facility] [address] [place] [address] Areli Washburn, LISA [address] [place] [address] Follow Up Allergies Active Allergy Reactions Criticality [...] oxyCODONE HCl 5 MG Oral Tablet (Oxy IR)Indications:Coyote Hunter fernando pain syndrome Take 1 Tablet by [...] /min) 05/11/2018 Coronary artery disease invo lving [place] coronary artery of [place] heart without angina pectoris 05/08/2018 Anxiety state [...] Overview: Modified by Acute [place] Protocol #5. [facility] right coronary [...] for Patients with Cardiovascular Disease Project #: [id number] PI: Peyton Conn MD [phone] GENOMICS CARDIO RESEARCH OTHER*[id number] 01/15/2007 06/28/2016 Overview: Renamed Per Clinical Trials Billing Project. Study Title: Genomic Markers for Patients with Cardiovascular Disease Project #: [id number] PI: Peyton Conn MD [phone] LV (left ventricular) mural thrombus 10/30/2006 12/28/2017 Tobacco use disorder 09/07/2006 010 Acute inferior myocardial infarction 08/19/2006 12/11/2008 Overview: Modified by Acute ID Protocol #5. [facility] right coronary bare metal stents EXAMINATION OF PARTICIPANT I N CLINICAL TRIAL - HORIZONS 08/19/2006 09/04/2009 Overview: Renamed Per Clinical Trials Billing Project. [facility] AMI clinical trial 263 Single blind trial comparing heparin and IIB/IIIA with bivalirudin, and Taxus vs bare metal stent. Patient Follow-up for 5 years Field Care Manager: Trent Verduzco [phone] [facility] Clinical Trial*[id number] 08/19/2006 09/08/2014 Overview: Renamed Per Clinical Trials Billing Project. [facility]I clinical trial 263 Single blind trial comparing heparin and IIB/IIIA with bivalirudin, and Taxus vs bare metal stent. Patient Follow-up for 5 years Field Care Manager: Trent [place] Verduzco [phone] Menopause 08/29/2002 02/23/2017 LOC PRIM [id number] 05/29/200206/23 Dyslipidemia, goal to be determined 05/29/2002 [...] encounter Miscellaneous Notes * Telephone Encounter - Lianna Olguin LPN [...] Description 05/25/2023 4:00 PM EST Home Visit [facility], [facility] [address] [facility] [place] [address] Areli Washburn, RN [address] [place] [address] 06/29/2023 8:30 AM EST Office Visit Cardiology, [facility] [address] [facility] [place] [address] Nikole Crenshaw PA-C [address] [facility] [place] [address] 06/29/2023 9:00 AM EST Office Visit Pharmacy, [facility] [address] [facility] [place] [address] [facility] [address] [facility] [place] [address] 07/05/2023 3:40 PM EST [facility] [address] [place] [address] Ashlie Swift MD [address] [place] [address] Health Maintenance Due Date Last Done Comments DISCUSS TOBACCO CESSATION (REFER TO SMARTSET #3295) 1945 Alpha-1 Antitrypsin 1965 Diabetic Eye Exam 1965 Diabetic Foot Exam 1965 DXA Scan 09/04/2016 09/04/2013, 09/04/2013 *ADVANCE DIRECTIVE NOT ON FILE 06/09/2019 COVID-19 Vaccine ( season) 2023 11/12/2020, 10/01/2020 Depression Screening 06/02/2023 06/02/2022 HbA1c 09/01/2023 03/02/2023, 12/21, 08/19/2006, Additional history exists GFR 10/17/2023 04/18/2023, 02/20, 03/13/2023, Additional history exists Albumin/Creatinine Ratio 03/02/2024 023, 02/21/2022, 07/23/2019 CKD PHOS USE SMARTSET 03437 03/02/202402/19, 10/07/2022, 02/21/2022, Additional history exists CKD HGB USE SMARTSET 03498 03/15/202403/15, 03/02/2023, 03/02/2023, Additional history exists O2 [...] the patient have Health Care Power of Greenhouse Technician? No Healthcare Agents on File Name Relationship Healthcare Agent Relationshi p Communication Lacy Tong Adult Child Health Care Repr esentative (appointed verbally by patient or by statute hierarchy) Care Teams Concrete Mixing Plant Laborer Relationship Specialty Start Date End Date Roman Ennis III, MD [address] [place] [address] PCP - General Family Medicine 06/28/18 documented as of this encounter
--- OUTSIDE RECORDS SUMMARY | 2023-06-29 05:29 | External Medical Summary | Summary of Care ---
Author Name Unknown Organization [facility] Address [address] [place] [address] Phone [phone] Care Team Providers Care Length Control Tester Name Role Phone Loli NORWOOD MD, Roman Barraza Primary Care Provider [phone] Reason for Visit * Reason Comments NEW PATIENT * Evaluate & Treat - Unlimited Visits (Within 30 days (routine)) - Authorized Specialty Diagnoses / Procedures Referred By Xuan bey Referred To Contact Neurology Diagnoses Convulsions, unspecified convulsion type (HCC) Xuan Xie DO [address] [place] [address] Referral ID Status Reason Start Date Expiration Date Visits Requested Visits Authorized [id number] Authorized Specialty Services Required 02/27/2023 999 999 Encounter Details Date Type Department Care Team (Late st Contact Info) Description 04/04/2023 2:00 PM EST Office Visit Neurology [facility] [address] [place] [address] Ashlie Swift MD [address] [place] [address] New onset seizure (HCC)* Allergies Active Allergy Reactions Criticality Noted Date Comments Isosorbide Mononitrate 12/24/2007 Severe headaches Nsaids 05/29/2002 Tramadol Hcl Nausea/vomiting Low 01/09/2008 UGI distress documented as of this encounter (statuses as of 04/19/2023) Medications Medication Sig Dispensed Refills Start Date [...] oxyCODONE HCl 5 MG Oral Tablet (Oxy IR)Indications: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 100 Tablet 0 03/22/2023 04/11/20 23 Discontinu ed(Refill) cloNIDine HCl 0.1 MG Oral Tablet (Catapres) Take 0.5 Tablets by mouth in the morning. 0 04/17/20 23 Discontinu ed(Medicat ion List Clean Up) documented as of this encounter (statuses as of 04/19/2023) Active Problems Problem Noted Date Diagnosed Date [...] /min) 05/11/2018 Coronary artery disease invo lving [place] coronary artery of [place] heart without angina pectoris 05/08/2018 Anxiety state [...] MYOCARDIAL INFARCT 12/11/2008 Overview: Modified by Acute [place] Protocol [place]5. [facility] [place] coronary bare metal stents S/P angioplasty with stent 09/07/2006 History of tobacco use documented as of this encounter (statuses as of 04/19/2023) Resolved Problems Problem Noted Date Diagnosed Date [...] for Patients with Cardiovascular Disease Project #: [id number] PI: Peyton Conn MD [phone] GENOMICS CARDIO RESEARCH OTHER*[id number] 01/15/2007 06/28/2016 Overview: Renamed Per Clinical Trials Billing Project. Study Title: Genomic Markers for Patients with Cardiovascular Disease Project #: [id number] PI: Peyton Conn MD [phone] LV (left ventricular) mural thrombus 10/30/2006 12/28/2017 Tobacco use disorder 09/07/2006 010 Acute inferior myocardial infarction 08/19/2006 12/11/2008 Overview: Modified by Acute [place] Protocol #5. [facility] right coronary bare metal stents EXAMINATION OF PARTICIPANT I N CLINICAL TRIAL - HORIZONS 08/19/2006 09/04/2009 Overview: Renamed Per Clinical Trials Billing Project. [facility] AMI clinical trial 263 Single blind trial comparing heparin and IIB/IIIA with bivalirudin, and Taxus vs bare metal stent. Patient Follow-up for 5 years Adjunct Latin Professor: Trent Verduzco [phone] [facility] Clinical Trial*[id number] 08/19/2006 09/08/2014 Overview: Renamed Per Clinical Trials Billing Project. [facility] AMI clinical trial 263 Single blind trial comparing heparin and IIB/IIIA with bivalirudin, and Taxus vs bare metal stent. Patient Follow-up for 5 years Adjunct Latin Professor: Trent Verduzco [phone] Menopause 08/29/2002 02/23/2017 LOC PRIM [id number] 05/29/200206/23 Dyslipidemia, goal to be determined 05/29/2002 05/07/2009 Overview: Per Lipid Taxonomy. 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 02/23/2017 documented as of this encounter (statuses as of 04/19/2023) Immunizations Name Administration Dates Next Due COVID-19 [...] Sign Reading Time Taken Comments Blood Pressure 100/50 04/04/2023 2:07 PM EST Pulse 70 04/04/2023 2:07 PM EST Temperature 37.1 C (98.7 F) 04/04/2023 2:07 PM ES T Respiratory Rate 18 04/04/2023 2:07 PM EST Oxygen Saturation 96% 04/04/2023 2:07 PM EST Inhaled Oxygen Concentration - - Weight 66.5 kg (146 lb 11.2 oz) 04/04/2023 2:07 PM EST Height - - Body Mass Index 26.86 02/27/2023 4:30 PM EDT documented in this encounter Progress Notes * Ashlie Swift MD - 04/19/2023 11:28 AM EST 04/19/23 I reviewed reports from [facility]; see scanned notes. Event in [facility] was multifactorial, including a fib, akf, and epilepsy; There is a question regarding compliance with her AEDs. * Ashlie Swift MD - 04/04/2023 2:41 PM EST HISTORY AND PHYSICAL EXAMINATION [place] [address] NAME: Radha Tong Date of : 1945 Date of Visit: 04/04/23 Chief Complaint: Chief Complaint Patient presents with NEW PATIENT HPI: Radha Tong is a 78 year old female presenting with a seizure. The patient found herself lying on the floor placed a face all bloody. She was taken to [facility] in the hospital had an EEG and was told she had had a seizure. This is now modified by the use of levetiracetam. She has no complaint with the use of this medicine. She is had no further seizures (see below), and has had no aurae. The above occurred in December and later that month she found herself on the garage floor for about 48 hours. She is not certain how she got there, or even why she went into the garage. She was unable to lift herself up and was eventually rescued by her son's girlfriend. She was hospitalized, once again, at [facility], was in the hospital 8 days and released to home. Several months being for the seizure she had a stroke involving the right side of the brain treatedwith tPA. At that point it was discovered that she had atrial fibrillation and she was started on apixaban and Plavix. HOME MEDICATIONS : Current Outpatient Medications Medication Sig Dispense Refill Cyanocobalamin 1000 MCG Oral Tablet (Cyanocobalamin) Take [...] 1 Tablet before bedtime. 200 Tablet 5 oxyCODONE HCl 5 MG Oral Tablet (Oxy IR) Take 1 Tablet by mouth every 6 hours as needed (pain). 100 Tablet 0 Furosemide 40 MG Oral Tablet (Lasix) Take 1 Tablet by mouth daily AND 0.5 Tablets daily at noon. 135 Tablet 3 Anoro Ellipta 62.5-25 MCG/ACT Inhalation Aerosol Powder Breath Activated (umeclidinium-vilanterol) INHALE ONE PUFF EVERY DAY 180 Blister Dosing Unit 1 Venlafaxine HCl ER 225 MG Oral Tablet Extended Release 24 Hour Take 1 Tablet by mouth in the morning. cloNIDine HCl 0.1 MG Oral Tablet (Catapres) Take 0.5 Tablets by mouth in the morning. hydrOXYzine HCl 25 MG Oral Tablet Take 1 Tablet by mouth 3 times a day as needed. Ventolin HFA 108 (90 Base) MCG/ACT Inhalation Aerosol Solution Inhale 2 Puffs by mouth every 4 hours as needed for Wheezing or Dyspnea. (Patient not taking: Reported on 04/04/2023) 54 g 1 No current facility-administered medications for this visit. Review of patient's allergies indicates: Allergen Reactions Imdur [Isosorbide Mononitrate] Severe headaches Nsaids Ultram [Tramadol Hcl] Nausea/vomiting UGI distress Past Medical History: Diagnosis Date Acute inferior myocardial infarction (HCC) 08/19/2006 [facility] [place] coronary bare metal stents Automatic implantable cardiac defibrillator in situ 11/24/2008 [facility], [place] Bhavani oLya EF 20-25% COMMON MIGRAINE WITHOUT MENTION OF [...] years Primary localized osteoarthrosis of shoulder region Past Surgical History: Procedure Laterality Date CARDIAC CATH-CARDIOLOGY ONLY 08/19/2006 right coronary artery 3 bare metal stents, [facility] CARPAL TUNNEL SURGERY Bilateral 02/20/2020 NEUROPLASTY MEDIAN NERVE AT CARPAL TUNNEL performed by Lore Richey DO at [place] [facility] INSERT PULSE GENERATOR, EXISTING SINGLE LEAD 08/06/2013 NEW ICD GENERATOR ONLY performed by Tylor Loya MD at [facility] LAP;W/HYSTERECTOMY 02/04/2020 LEFT VENTRICULAR PACING ELECTRODE, ADD-ON 11/24/08 CS LEAD PLACEMENT WITH INITIAL DEVICE performed by TYLOR LOYA at [facility] MAMMOGRAM - BILATERAL 07/17/02 Birad Code 2 PACEMAKER-DEFIBRILLATOR ELECTRODE INSERT, SINGLE 08/09/2013 REPLACE LEAD (1 LEAD) performed by Monik Arnold IV, MD at [facility] REMOVE CATARACT, INSERT LENS PROSTH Right REMOVE GALLBLADDER 1990s Cholecystectomy, [place] TENDON SHEATH INCISION, FINGER Bilateral 02/20/2020 TRIGGER FINGER RELEASE performed by Lore Richey DO at OR [facility] VAGINAL DELIVERY ONLY times 5 Family History Problem Relation Age of Onset Cancer Mother cervical cancer Heart Disorder Mother CABG Diabetes Mother Cancer Father prostate cancer Heart Disorder Father Thyroid Disorder Father Thyroid Disorder Sister Ear Problems Sister meniers Cancer Brother No Past Hx Brother No Past Hx Daughter No Past Hx Son No Past Hx Son No Past Hx Son No Past Hx Son Social History Socioeconomic History Marital status: Spouse name: Maurice Number of children: 5 Years of education: 12 Highest education level: Not on file Occupational History Occupation: disabled since 08/18/06, SSI Employer: [employer] Tobacco Use Smoking status: [...] on file Housing Stability: Not on file ROS: Review of Systems Constitutional: Negative. HENT: Negative. Eyes: Negative. Respiratory: Negative. Cardiovascular: Negative. Gastrointestinal: Negative. Endocrine: Negative. Genitourinary: Negative. Musculoskeletal: Negative. Allergic/Immunologic: Negative. Neurological: Negative. Hematological: Negative. Psychiatric/Behavioral: Negative. All other systems reviewed and are negative. Left sciatic pain with painful parasthesiae of the associated foot PHYSICAL EXAMINATION: Vital Signs: BP 100/50 | Pulse 70 | Temp 37.1 C (98.7 F) (Tympanic) | Resp 18 | Wt 66.5 kg (146 lb 11.2 oz) | SpO2 96% | BMI 26.86 kg/m | BSA 1.71 m EXAM: Constitutional: appearance normally developed, with no deformities Heart sounds demonstrate a systolic murmur Examination of the peripheral vascular system by observation does not reveal varicosity, but 3+ edema. Palpation reveals normal pulses and temperature Carotid arteries reveal no bruit. NEUROLOGIC EXAMINATION: Appearance: no acute distress Opthalmoscopic: disc flat, normal fundus The patient has obviously intact higher integrative functioning to orientation, language, fund of knowledge, attention to the examiner, and memory Speech: no dysarthria Cranial Nerves: CN 2 - no visual defect on confrontation. CN 3, 4, 6 - extra-ocular movements intact and no nystagmus; with round pupils appropriately reactive to light and accomodation CN 5 - facial sensation intact CN 7 - no facial asymmetry CN 8 - intact hearing CN 9, 10 - palate symmetric CN 11 - good shoulder shrug CN 12 - tongue midline Gait and station: antalgic and careful Coordination: normal finger to nose testing and rapid alternating movements of the lower extremities. No tremor is seen. Sensory: intact to light touch and pain Muscle Tone: normal Muscle exam: Arm Right Left Leg Right Left Deltoid 5/5 5/5 Iliopsoas 5/5 5/5 Biceps 5/5 5/5 Quads 5/5 5/5 Triceps 5/5 5/5 Hamstrings 5/5 5/5 Wrist Extension 5/5 5/5 Ankle Dorsi Flexion 5/5 5/5 Wrist Flexion 5/5 5/5 Ankle Plantar Flexion 5/5 5/5 Interossei 5/5 5/5 Toe Extension 4/ 4/5 APBs 5/5 5/5 Reflexes: Biceps Patellar Achilles Plantars Right 0 0 0 Flexor Left 0 0 0 Flexor IMPRESSION / PLAN: Clearly Radha has a seizure disorder is being properly managed with levetiracetam. I would not change this. Driving is not an issue since she does not drive and is transported by her children. In terms of the stroke I think she is also being managed properly with medications for atrial fibrillation. She also has a pacemaker and defibrillator. It is entirely unclear to me what happened in her [facility] for 8 days. She is obtaining records from [facility] for my review. She also has left-sided sciatica with painful paresthesia. Physical therapy may help this. If not done previously x-rays and appropriate workup of the left hip and lumbar spine should be considered. She does have significant edema. This may be related to her cardiac disorder but a gabapentin may be contributing significantly. I could taper her off this and put her on a different medicine for neuropathic pain. Please let me know. She also has evidence of a peripheral neuropathy; she wishes to follow with this I will see her back in 3 months. Thank you very much for the opportunity of seeing this patient. Ashlie Swift MD documented in this encounter Nursing Notes * Anastasia Reveles LPN - 04/04/2023 2:06 PM EST Chief Complaint Patient presents with NEW PATIENT documented in this encounter Plan of Treatment Upcoming Encounters Date Type Department Care Team (Late st Contact Info) Description 05/03/2023 2:00 PM EST Office Visit Orthopaedics [facility] [address] [place] [address] Rosemarie Amanda MD [address] [place] [address] 05/25/2023 4:00 PM EST Home Visit [facility] [address] [place] [address] Areli Washburn RN [address] [place] [address] 06/29/2023 8:30 AM EST Office Visit Cardiology, [facility] [address] [place] [address] [address] Nikole Crenshaw PA-C [address] [place] [address] 06/29/2023 9:00 AM EST Office Visit Pharmacy, [facility] [address] [place] [address] [facility] [address] [place] [address] 06/29/2023 11:00 AM EST Office Visit Otolaryngology [facility] [place] [address] [place] [address] Laurie Herrmann PA-C [address] [place] [address] 07/05/2023 3:40 PM EST Office Visit Neurology [facility] [place] [address] [facility] [place] [address] Ashlie Swift MD [address] [facility] [place] [address] Health Maintenance Due Date Last Done Comments [...] 023, 02/21/2022, 07/23/2019 CKD PHOS USE SMARTSET 53124 03/02/202402/19, 10/07/2022, 02/21/2022, Additional history exists CKD HGB USE SMARTSET 37824 03/15/202403/15, 03/02/2023, 03/02/2023, Additional history exists O2 [...] as of this encounter Visit Diagnoses Diagnosis New onset seizure (HCC)- Primary Other convulsions documented in this encounter Advance Directives Latest [...] the patient have Health Care Power of Conventional Mortgage Underwriter? No Healthcare Agents on File Name Relationship Healthcare Agent Relationshi p Communication Lacy Tong Adult Child Health Care Repr esentative (appointed verbally by patient or by statute hierarchy) Care Teams Length Control Tester Relationship Specialty Start Date End Date Roman Ennis III, MD [address] [facility] [place] [address] PCP - General Family Medicine 06/28/18 documented as of this encounter
--- OUTSIDE RECORDS SUMMARY | 2023-06-29 05:29 | External Medical Summary | Summary of Care ---
Author Name Unknown Organization [facility] Address [address] [facility] [place] [address] Phone [phone] Care Team Providers Care Asl Interpreter Name Role Phone Loli NORWOOD MD, Roman Barraza Primary Care Provider [phone] Reason for Visit * Reason Onset Date Comments Follow Up 04/17/2023 Encounter Details Date Type Department Care Team (Late st Contact Info) Description 04/17/2023 Telephone [facility], [facility] [address] [place] [address] Areli Washburn, LISA [address] [place] [address] Follow Up Allergies Active Allergy Reactions Criticality [...] oxyCODONE HCl 5 MG Oral Tablet (Oxy IR)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 [facility] right coronary bare metal stents S/P angioplasty [...] for Patients with Cardiovascular Disease Project #: [id number] PI: Peyton Conn MD [phone] GENOMICS CARDIO RESEARCH OTHER*[id number] 01/15/2007 06/28/2016 Overview: Renamed Per Clinical Trials Billing Project. Study Title: Genomic Markers for Patients with Cardiovascular Disease Project #: [id number] PI: Peyton Conn MD [phone] LV (left ventricular) mural thrombus 10/30/2006 12/28/2017 Tobacco use disorder 09/07/2006 010 Acute inferior myocardial infarction 08/19/2006 12/11/2008 Overview: Modified by [place] Protocol #5. [facility] right coronary bare metal stents EXAMINATION OF PARTICIPANT I N CLINICAL TRIAL - [place]IZ[place] 08/19/2006 09/04/2009 Overview: Renamed Per Clinical Trials Billing Project. [facility] clinical trial 263 Single blind trial comparing heparin and IIB/IIIA with bivalirudin, and Taxus vs bare metal stent. Patient Follow-up for 5 years Sales Product Specialist: Trent Verduzco [phone] [place] Clinical Trial*[id number] 08/19/2006 09/08/2014 Overview: Renamed Per Clinical Trials Billing Project. [facility] clinical trial 263 Single blind trial comparing heparin and IIB/IIIA with bivalirudin, and Taxus vs bare metal stent. Patient Follow-up for 5 years Sales Product Specialist: Trent [place] Verduzco [phone] Menopause 08/29/2002 02/23/2017 LOC PRIM [id number] 05/29/200206/23 Dyslipidemia, goal to be determined 05/29/2002 [...] encounter Miscellaneous Notes * Telephone Encounter - Xuan Xie DO [...] PM EST Home Visit [facility], [facility] [place] [address] Areli Washburn, LISA [address] [place] [address] 06/29/2023 8:30 AM EST Office Visit Cardiology, [facility] [address] [facility] [place] [address] Nikole Crenshaw PA-C [address] [facility] [place] [address] 06/29/2023 9:00 AM EST Office Visit Pharmacy, [facility] [address] [facility] [place] [address] [facility] [address] [facility] [place] [address] 07/05/2023 3:40 PM EST Office Visit Neurology [facility] [address] [facility] [place] [address] Ashlie Swift MD [address] [facility] [place] [address] Health Maintenance Due Date Last Done Comments DISCUSS TOBACCO CESSATION (REFER TO SMARTSET #1059) 1945 Alpha-1 Antitrypsin 1965 Diabetic Eye Exam 1965 Diabetic Foot Exam 1965 DXA Scan 09/04/2016 09/04/2013, 09/04/2013 *ADVANCE DIRECTIVE NOT ON FILE 06/09/2019 COVID-19 Vaccine ( season) 2023 11/12/2020, 10/01/2020 Depression Screening 06/02/2023 06/02/2022 HbA1c 09/01/2023 03/02/2023, 12/21, 08/19/2006, Additional history exists GFR 09/14/2023 03/15/2023, 02/20, 03/02/2023, Additional history exists Albumin/Creatinine Ratio 03/02/2024 023, 02/21/2022, 07/23/2019 CKD PHOS USE SMARTSET 69122 03/02/202402/19, 10/07/2022, 02/21/2022, Additional history exists CKD HGB USE SMARTSET 92497 03/15/202403/15, 03/02/2023, 03/02/2023, Additional history exists O2 [...] the patient have Health Care Power of Repairer Handtools? No Healthcare Agents on File Name Relationship Healthcare Agent [facility] Communication Lacy Tong Adult Child Health Care Repr esentative (appointed verbally by patient or by statute hierarchy) Care Teams Asl Interpreter Relationship Specialty Start Date End Date Roman Ennis III, MD [address] [place] [address] PCP - General Family Medicine 06/28/18 documented as of this encounter
--- OUTSIDE RECORDS SUMMARY | 2023-06-29 05:29 | External Medical Summary ---
Author Name Unknown Address Unknown Organization [facility] [place] [address] Laboratory Report Ordering Provider Test Date Status NAE BEY 04/18/2023 11:14:54 Final Observation Date Value Abnormality Reference (Units ) Status BUN 04/18/2023 11:14:54 36 Above high normal 6-20 (mg/dL) Final Creatinine 04/18/2023 11:14:54 1.5 Above high normal 0.5-1.0 (mg/dL) Final Glomerular filtration rate/1.73 sq M.predicted [Volume Rate/Area] in Serum, Plasma or Blood by Creatinine-based formula (CKD-EPI) 04/18/2023 11:14:54 37 Below low normal >=60 (mL/min) Final eGFR is calculated based on the CKD-EPI 2020 equation SODIUM 04/18/2023 11:14:54 138 135-146 (m mol/L) Final Potassium 04/18/2023 11:14:54 5.2 Above high normal 3. 5-5.1 (mmol/L) Final Cl 04/18/2023 11:14:54 98 98-107 (mm ol/L) Final CO2 04/18/2023 11:14:54 30 22-32 (mmo l/L) Final Anion gap 04/18/2023 11:14:54 10 7-15 (mmol /L) Final Glucose 04/18/2023 11:14:54 88 70-120 (mg /dL) Final Calcium 04/18/2023 11:14:54 8.9 8.4-10.2 ( mg/dL) Final Performing Location [facility] [address] [place] [address]
--- OUTSIDE RECORDS SUMMARY | 2023-06-29 05:29 | External Medical Summary | Summary of Care ---
Author Name Unknown Organization [facility] Address [address] [place] [address] Phone [phone] Care Team Providers Care Tile Helper Name Role Phone Loli NORWOOD MD, Roman Barraza Primary Care Provider [phone] Reason for Referral * Evaluate & Treat - Unlimited Visits (Within 30 days (routine)) - Authorized Specialty Diagnoses / Procedures Referred By Xuan bey Referred To Contact Orthopaedic Surgery / Orthopedics Diagnoses Hip pain, left Xuan Xie DO [address] [place] [address] Referral ID Status Reason Start Date Expiration Date Visits Requested Visits Authorized [id number] Authorized Specialty Services Required 3 [phone] Question Answer Referral Priority Within 30 days (routine) Where should this appointment be scheduled? [facility] What body part is the patient being seen for? Hip What condition is the patient being seen for? Arthritis including related infection Encounter Details Date Type Department Care Team (Late st Contact Info) Description 04/18/2023 Telephone Pharmacy, [facility] [address] [place] [address] Mable Gonzalez, [facility] [address] [place] [address] Allergies Active Allergy Reactions Criticality Noted Date [...] /min) 05/11/2018 Coronary artery disease invo lving [place] coronary artery of [place] heart without angina pectoris 05/08/2018 Anxiety state [...] MYOCARDIAL INFARCT 12/11/2008 Overview: Modified by Acute [place] Protocol #5. [facility] [place] coronary bare metal stents [...] for Patients with Cardiovascular Disease Project #: [id number] PI: Peyton Conn MD [phone] GENOMICS CARDIO RESEARCH OTHER*[id number] 01/15/2007 06/28/2016 Overview: Renamed Per Clinical Trials Billing Project. Study Title: Genomic Markers for Patients with Cardiovascular Disease Project #: [id number] PI: Peyton Conn MD [phone] LV (left ventricular) mural thrombus 10/30/2006 12/28/2017 Tobacco use disorder 09/07/2006 010 Acute inferior myocardial infarction 08/19/2006 12/11/2008 Overview: Modified by Acute [place] Protocol #5. [facility] right coronary bare metal stents EXAMINATION OF PARTICIPANT I N CLINICAL TRIAL - HORIZONS 08/19/2006 09/04/2009 Overview: Renamed Per Clinical Trials Billing Project. [facility] AMI clinical trial 263 Single blind trial comparing heparin and IIB/IIIA with bivalirudin, and Taxus vs bare metal stent. Patient Follow-up for 5 years Project Construction Manager: Trent Verduzco [phone] [facility] Clinical Trial*[id number] 08/19/2006 09/08/2014 Overview: Renamed Per Clinical Trials Billing Project. [facility] AMI clinical trial 263 Single blind trial comparing heparin and IIB/IIIA with bivalirudin, and Taxus vs bare metal stent. Patient Follow-up for 5 years Project Construction Manager: Trent Verduzco [phone] Menopause 08/29/2002 02/23/2017 LOC PRIM [id number] 05/29/200206/23 Dyslipidemia, goal to be determined 05/29/2002 [...] sched. * Telephone Encounter - Mable Gonzalez [facility] - 04/18/2023 12:03 PM EST Nikki, Patient seen in [facility] Pharmacy pain today. Recommending to be seen by ortho as having left hip pain that is limiting mobility and function. Please place referral if agreeable. Thank you, Mable Gonzalez, Pharm D, BCACP Clinical Pharmacist 04/18/2023, 12:04 PM documented in this encounter Plan of Treatment Upcoming Encounters Date Type Department Care Team (Late st Contact Info) Description 05/25/2023 4:00 PM EST Home Visit [facility] at [facility] [address] [place] [address] Areli Washburn RN [address] [place] [address] 06/29/2023 8:30 AM EST Office Visit Cardiology, [facility] [address] [place] [address] Nikole Crenshaw PA-C [address] [place] [address] 06/29/2023 9:00 AM EST Office Visit Pharmacy, [facility] [address] [place] [address] [facility] [address] [place] [address] 07/05/2023 3:40 PM EST Office Visit Neurology [facility] [place] [address] [place] [address] Ashlie Swift MD [address] [place] [address] Scheduled Referrals Name Type Priority Associated Diagnoses Order Schedule ORTHOPAEDICS REFERRAL OP Referral Within 30 days (routine) Hip pain, left Ordered: 04/18/2023 Health Maintenance Due Date Last Done Comments DISCUSS TOBACCO CESSATION (REFER TO SMARTSET #4315) 1945 Alpha-1 Antitrypsin 1965 Diabetic Eye Exam 1965 Diabetic Foot Exam 1965 DXA Scan 09/04/2016 09/04/2013, 09/04/2013 *ADVANCE DIRECTIVE NOT ON FILE 06/09/2019 COVID-19 Vaccine ( season) 2023 11/12/2020, 10/01/2020 Depression Screening 06/02/2023 06/02/2022 HbA1c 09/01/2023 03/02/2023, 12/21, 08/19/2006, Additional history exists GFR 10/17/2023 04/18/2023, 02/20, 03/13/2023, Additional history exists Albumin/Creatinine Ratio 03/02/2024 023, 02/21/2022, 07/23/2019 CKD PHOS USE SMARTSET 79071 03/02/202402/19, 10/07/2022, 02/21/2022, Additional history exists CKD HGB USE SMARTSET 74524 03/15/202403/15, 03/02/2023, 03/02/2023, Additional history exists O2 [...] the patient have Health Care Power of Consultant Internship? No Healthcare Agents on File Name Relationship Healthcare Agent Relationshi p Communication Lacy Tong Adult Child Health Care Repr esentative (appointed verbally by patient or by statute hierarchy) Care Teams Tile Helper Relationship Specialty Start Date End Date Roman Ennis III, MD [address] [place] [address] PCP - General Family Medicine 06/28/18 documented as of this encounter
--- OUTSIDE RECORDS SUMMARY | 2023-06-29 05:29 | External Medical Summary | Summary of Care ---
Author Name Unknown Organization [facility] Address [address] [facility] [place] [address] Phone [phone] Care Team Providers Care Resource Protection Specialist Name Role Phone Loli NORWOOD MD, Roman Barraza Primary Care Provider [phone] Reason for Visit * Reason Comments [facility]: Maintenance Encounter Details Date Type Department Care Team (Late st Contact Info) Description 04/17/2023 10:00 AM EST [facility] Visit [facility], [facility] [address] [place] [address] Areli Washburn, RN [address] [place] [address] Allergies Active Allergy Reactions Criticality Noted Date [...] oxyCODONE HCl 5 MG Oral Tablet (Oxy IR)Indications:Electrolysis Operator fernando pain syndrome Take 1 Tablet [...] /min) 05/11/2018 Coronary artery disease invo lving [place] coronary artery of [place] heart without angina pectoris 05/08/2018 Anxiety state [...] MYOCARDIAL INFARCT 12/11/2008 Overview: Modified by Acute [place] Protocol #5. [facility] right coronary bare metal stents S/P angioplasty [...] for Patients with Cardiovascular Disease Project #: [id number] PI: Peyton Conn MD [phone] GENOMICS CARDIO RESEARCH OTHER*[id number] 01/15/2007 06/28/2016 Overview: Renamed Per Clinical Trials Billing Project. Study Title: Genomic Markers for Patients with Cardiovascular Disease Project #: [id number] PI: Peyton Conn MD [phone] LV (left ventricular) mural thrombus 10/30/2006 12/28/2017 Tobacco use disorder 09/07/2006 010 Acute inferior myocardial infarction 08/19/2006 12/11/2008 Overview: Modified by Acute [place] Protocol #5. [facility] right coronary bare metal stents EXAMINATION OF PARTICIPANT I N CLINICAL TRIAL - HORIZONS 08/19/2006 09/04/2009 Overview: Renamed Per Clinical Trials Billing Project. [facility] AMI clinical trial 263 Single blind trial comparing heparin and IIB/IIIA with bivalirudin, and Taxus vs bare metal stent. Patient Follow-up for 5 years Airplane Cover Maker: Trent Verduzco [phone] [facility] Clinical Trial*[id number] 08/19/2006 09/08/2014 Overview: Renamed Per Clinical Trials Billing Project. [facility] AMI clinical trial 263 Single blind trial comparing heparin and IIB/IIIA with bivalirudin, and Taxus vs bare metal stent. Patient Follow-up for 5 years Airplane Cover Maker: Trent Sev[place] Verduzco [phone] Menopause 08/29/2002 02/23/2017 LOC PRIM [id number] 05/29/200206/23 Dyslipidemia, goal to be determined 05/29/2002 [...] Sign Reading Time Taken Comments Blood Pressure 104/60 04/17/2023 12:01 PM EST Pulse 76 04/17/2023 12:01 PM EST Temperature 36.1 C (97 F) 04/17/2023 12:01 PM EST Respiratory Rate 18 04/17/2023 12:01 PM EST Oxygen Saturation 100% 04/17/2023 12:01 PM EST Inhaled Oxygen Concentration - - Weight - - Height - - Body Mass Index - - documented in this encounter Progress Notes * Areli Washburn RN - 04/17/2023 11:20 AM EST [facility] Contract Technical Writer Visit Date: 04/17/2023 Time: 11:20 AM Name: Radha Tong : 1945 Current Concerns: Patient seen for follow up- COPD, CHF, CKD, Afib, HTN Reports feeling well. Has pacer check/MTM visit tomorrow- DIL to take VS wnl Lungs clear bilaterally Sob with exertion Mild nonpitting edema BLE Weighs daily- ranging 142-146 Voiding without difficulty Bowels wnl- per report Appetite good Taking fluids well. Problems/Symptoms: Review of Systems Constitutional: Negative. HENT: Negative. Respiratory: Positive for shortness of breath. Cardiovascular: Positive for leg swelling. Gastrointestinal: Negative. Endocrine: Negative. Genitourinary: Negative. Musculoskeletal: Positive for arthralgias and gait problem. Skin: Negative. Allergic/Immunologic: Negative. Hematological: Bruises/bleeds easily. Psychiatric/Behavioral: Negative. Physical Exam: BP 104/60 (BP Site: Left Arm, BP Position: Sitting, BP Cuff Size: Regular) | Pulse 76 | Temp 36.1 C (97 F) (Tympanic) | Resp 18 | SpO2 100% Pain 4- left hip Physical Exam Constitutional: Appearance: Normal appearance. Cardiovascular: Rate and Rhythm: Normal rate and regular rhythm. Pulses: Normal pulses. Pulmonary: Effort: Pulmonary effort is normal. Breath sounds: Normal breath sounds. Abdominal: General: Bowel sounds are normal. Palpations: Abdomen is soft. Musculoskeletal: Right lower leg: Edema present. Left lower leg: Edema present. Skin: General: Skin is warm and dry. Capillary Refill: Capillary refill takes 2 to 3 seconds. Neurological: General: No focal deficit present. Mental Status: She is alert and oriented to person, place, and time. Psychiatric: Mood and Affect: Mood normal. Behavior: Behavior normal. [facility]-10 Completed this Visit: No. Routine visit Treatment/Plan: Elevate ble- edema Low na/potassium diet Continue medications as prescribed Keep all upcoming MD appointments Weight daily Fluids encouraged RN CM follow up in 5 weeks Home Interventions Provided: Reinforced current Plan of Care, including self-management and medication regimen Patient Needs to Remember: Call [facility] with any medical concerns/ red flags Referrals Needed: N/a Follow Up: Is there cellular connectivity/connectivity in the home? Yes Does the patient have internet in the home? No Patient encouraged to call the intake phone number for all urgent but not emergent issues. Scheduled to follow up with patient in 5 weeks. Areli Coates RN 04/17/2023 11:20 AM documented in this encounter Plan of Treatment Upcoming Encounters Date Type Department Care Team (Late st Contact Info) Description 04/18/2023 10:30 AM EST Cardiac Studies Cardiology, [facility] [address] [facility] [place] [address] [facility] [address] [facility] [place] [address] 04/18/2023 11:10 AM EST Office Visit Pharmacy, [facility] [address] [facility] [place] [address] [facility] [address] [facility] [place] [address] 05/25/2023 4:00 PM EST [facility] [address] [facility] [place] [address] Areli Washburn RN [address] [facility] [place] [address] 06/29/2023 8:30 AM EST Office Visit Cardiology, [facility] [address] [facility] [place] [address] Nikole Crenshaw [facility]C [facility] [place] [address] 07/05/2023 3:40 PM EST Office Visit Neurology [facility] [place] [address] [place], [place] [address] Ashlie Swift MD [address] [place] [address] Health Maintenance Due Date Last Done Comments [...] 023, 02/21/2022, 07/23/2019 CKD PHOS USE SMARTSET 63181 03/02/202402/19, 10/07/2022, 02/21/2022, Additional history exists CKD HGB USE SMARTSET 50248 03/15/202403/15, 03/02/2023, 03/02/2023, Additional history exists O2 [...] the patient have Health Care Power of Dairy Cattle Farm Worker? No Healthcare Agents on File Name Relationship Healthcare Agent Relationshi p Communication Lacy Tong Adult Child Health Care Repr esentative (appointed verbally by patient or by statute hierarchy) Care Teams Resource Protection Specialist Relationship Specialty Start Date End Date Roman Ennis III, MD [address] [place] [address] PCP - General Family Medicine 06/28/18 documented as of this encounter
--- OUTSIDE RECORDS SUMMARY | 2023-06-29 05:30 | External Medical Summary | Summary of Care ---
Author Name Unknown Organization [facility] Address [address] [place] [address] Phone [phone] Care Team Providers Care Wellness Educator Name Role Phone Loli NORWOOD MD, Roman Barraza Primary Care Provider [phone] Reason for Visit * Reason Onset Date Comments Follow Up 04/17/2023 Encounter Details Date Type Department Care Team (Late st Contact Info) Description 04/17/2023 Telephone [facility], [facility] [address] [employer] [address] [place] [address] Areli Washburn, [place]ISA [address] [employer] [address] [place] [address] Follow Up Allergies Active Allergy Reactions Criticality [...] oxyCODONE HCl 5 MG Oral Tablet (Oxy IR)Indications:Mold Carrier fernando pain syndrome Take 1 Tablet by [...] /min) 05/11/2018 Coronary artery disease invo lving [place] coronary artery of [place] heart without angina pectoris 05/08/2018 Anxiety state [...] MYOCARDIAL INFARCT 12/11/2008 Overview: Modified by Acute [place] Protocol #5. [facility] right coronary bare metal stents S/P angioplasty [...] for Patients with Cardiovascular Disease Project #: [id number] PI: Peyton Conn MD [phone] GENOMICS CARDIO RESEARCH OTHER*[id number] 01/15/2007 06/28/2016 Overview: Renamed Per Clinical Trials Billing Project. Study Title: Genomic Markers for Patients with Cardiovascular Disease Project #: [id number] PI: Peyton Conn MD [phone] LV (left ventricular) mural thrombus 10/30/2006 12/28/2017 Tobacco use disorder 09/07/2006 010 Acute inferior myocardial infarction 08/19/2006 12/11/2008 Overview: Modified by Acute [place] Protocol #5. [facility] right coronary bare metal stents EXAMINATION OF PARTICIPANT I N CLINICAL TRIAL - HORIZONS 08/19/2006 09/04/2009 Overview: Renamed Per Clinical Trials Billing Project. [facility] AMI clinical trial 263 Single blind trial comparing heparin and IIB/IIIA with bivalirudin, and Taxus vs bare metal stent. Patient Follow-up for 5 years Public Health Internship: Trent Verduzco [phone] [facility] Clinical Trial*[id number] 08/19/2006 09/08/2014 Overview: Renamed Per Clinical Trials Billing Project. [facility] AMI clinical trial 263 Single blind trial comparing heparin and IIB/IIIA with bivalirudin, and Taxus vs bare metal stent. Patient Follow-up for 5 years Public Health Internship: Trent Steeleenship [phone] Menopause 08/29/2002 02/23/2017 LOC PRIM [id number] 05/29/200206/23 Dyslipidemia, goal to be determined 05/29/2002 [...] encounter Miscellaneous Notes * Telephone Encounter - Areli Washburn RN - 04/17/2023 11:[address] Ennis, Patient is asking for a handicap parking permit. Would you be willing to fill out the form and Radha could pick it up at the office? Thank you! Areli documented in this encounter Plan of Treatment Upcoming Encounters Date Type Department Care Team (Late st Contact Info) Description 04/18/2023 1:30 PM EST Cardiac Studies Cardiology, [facility] [address] [facility] [place] [address] [facility] [address] [place] [address] 04/18/2023 2:00 PM EST Office Visit Pharmacy, [facility] [address] [place] [address] [facility] [address] [place] [address] 05/25/2023 4:00 PM EST [facility], [facility] [address] [place] [address] Areli Washburn, LISA [address] [place] [address] 06/29/2023 8:30 AM EST Office Visit Cardiology, [facility] [address] [place] [address] Nikole Crenshaw, YOGESH [address] [place] [address] 07/05/2023 3:40 PM EST Office Visit Neurology [facility] [address] [facility] [place], [place] [address] Ashlie Swift MD [address] [facility] [place] [address] Health Maintenance Due Date Last Done Comments DISCUSS TOBACCO CESSATION (REFER TO SMARTSET #2284) 1945 Alpha-1 Antitrypsin 1965 Diabetic Eye Exam 1965 Diabetic Foot Exam 1965 DXA Scan 09/04/2016 09/04/2013, 09/04/2013 *ADVANCE DIRECTIVE NOT ON FILE 06/09/2019 COVID-19 Vaccine ( season) 2023 11/12/2020, 10/01/2020 Depression Screening 06/02/2023 06/02/2022 HbA1c 09/01/2023 03/02/2023, 12/21, 08/19/2006, Additional history exists GFR 09/14/2023 03/15/2023, 02/20, 03/02/2023, Additional history exists Albumin/Creatinine Ratio 03/02/2024 023, 02/21/2022, 07/23/2019 CKD PHOS USE SMARTSET 45432 03/02/202402/19, 10/07/2022, 02/21/2022, Additional history exists CKD HGB USE SMARTSET 34941 03/15/202403/15, 03/02/2023, 03/02/2023, Additional history exists O2 [...] the patient have Health Care Power of Vp Corporate Development? No Healthcare Agents on File Name Relationship Healthcare Agent Relationshi p Communication Lacy Tong Adult Child Health Care Repr esentative (appointed verbally by patient or by statute hierarchy) Care Teams Wellness Educator Relationship Specialty Start Date End Date Roman Ennis III, MD [address] [place] [address] PCP - General Family Medicine 06/28/18 documented as of this encounter
--- OUTSIDE RECORDS SUMMARY | 2023-06-29 05:30 | External Medical Summary | Summary of Care ---
Author Name Unknown Organization [facility] Address [address] [facility] [place] [address] Phone [phone] Care Team Providers Care Dietary Aide Cook Name Role Phone Loli NORWOOD MD, Marilyn Barraza Primary Care Provider [phone] Reason for Visit * Reason Comments eRx-Medication Refill Encounter Details Date Type Department Care Team (Late st Contact Info) Description 03/30/2023 Refill Family Practice [facility] [place] [facility] [place] [address] [facility] [place] [address] Marilyn Nogueira III, MD [address] [facility] [place] [address] Allergies Active Allergy Reactions Criticality Noted Date Comments Isosorbide Mononitrate 12/24/2007 Severe headaches Nsaids 05/29/2002 Tramadol Hcl Nausea/vomiting Low 01/09/2008 UGI distress documented as of this encounter (statuses as of 03/31/2023) Medications Medication Sig Dispensed Refills Start Date End Date Status Ventolin HFA 108 (90 Base) MCG/ACT Inhalation Aerosol Solution Inhale 2 Puffs by mouth every 4 hours as needed for Wheezing or Dyspnea. 54 g 1 1 Active Cyanocobalamin 1000 MCG Oral Tablet (Cyanocobalamin) Take by mouth 1 Tablet in the morning. 100 Tablet 5 2 Active Additional Information Patient not taking.Reported on 03/08/2023 Ondansetron HCl 4 MG Oral Tablet (Zofran)Indications :Nausea Take 1 Tablet by mouth every 8 hours as needed for Nausea. 20 Tablet 0 3 Active Nitroglycerin 0.4 MG Sublingual Tablet Sublingual (Nitrostat)Indicati ons:ASCVD (arteriosclerotic cardiovascular disease),Chest pain, unspecified type DISSOLVE ONE TABLET UNDER THE TONGUE NEEDED FOR CHEST pain, maximum THREE doses 25 Tablet 5 3 Active Additional Information Patient not taking.Reported on 03/13/2023 Apixaban 5 MG Oral Tablet (Eliquis) Take 1 Tablet by mouth 2 times a day. 60 Tablet 3 3 Active Clopidogrel Bisulfate 75 MG Oral Tablet (Plavix) Take 1 Tablet by mouth in the morning. 30 Tablet 5 3 Active Gabapentin 300 MG Oral Capsule (Neurontin) Take 1 Capsule by mouth in the morning and 1 Capsule at noon and 1 Capsule before bedtime. 90 Capsule 11 3 Active Lisinopril 20 MG Oral Tablet (Prinivil)Indicatio ns:HTN, goal to be determined Take 1 Tablet by mouth in the morning. 90 Tablet 3 3 Active Pantoprazole Sodium 40 MG Oral Tablet Delayed Release (Protonix)Indicatio ns:Abdominal pain, epigastric TAKE ONE TABLET BY MOUTH DAILY 30 MINUTES BEFORE FIRST meal of THE DAY 90 Tablet 3 3 Active traZODone HCl 50 MG Oral Tablet (Desyrel) Take 0.5 Tablets by mouth at bedtime. 30 Tablet 5 3 Active levETIRAcetam 500 MG Oral Tablet (Keppra) Take 1 Tablet by mouth in the morning and 1 Tablet before bedtime. 60 Tablet 6 3 Active Atorvastatin Calcium 20 MG Oral Tablet (Lipitor) Take 1 Tablet by mouth in the morning. 90 Tablet 5 3 Active Metoprolol Succinate ER 25 MG Oral Tablet Extended Release 24 Hour (toPROL XL) Take 1 Tablet by mouth in the morning and 1 Tablet before bedtime. 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 100 Tablet 0 3 Active Furosemide 40 MG Oral Tablet (Lasix) Take 1 Tablet by mouth daily AND 0.5 Tablets daily at noon. 135 Tablet 3 3 Active Anoro Ellipta 62.5-25 MCG/ACT Inhalation Aerosol Powder Breath Activated (umeclidinium-vilan terol) INHALE ONE PUFF EVERY DAY 180 Blister Dosing Unit 1 3 Active Anoro Ellipta 62.5-25 MCG/INH Inhalation Aerosol Powder Breath Activated (umeclidinium-vilan terol) Inhale 1 Puff by mouth daily. 180 Blister Dosing Unit 1 1 03/31/20 23 Discontinued documented as of this encounter (statuses as of 03/31/2023) Active Problems Problem Noted Date Diagnosed Date [...] /min) 05/11/2018 Coronary artery disease invo lving [place] coronary artery of [place] heart without angina pectoris 05/08/2018 Anxiety state [...] Overview: Modified by Acute [place] Protocol #5. [facility] [place] right coronary bare metal stents S/P angioplasty with stent 09/07/2006 History of tobacco use documented as of this encounter (statuses as of 03/31/2023) Resolved Problems Problem Noted Date Diagnosed Date [...] for Patients with Cardiovascular Disease Project #: [id number] PI: Peyton Conn MD [phone] [email or web address] CARDIO RESEARCH OTHER*[id number] 01/15/2007 06/28/2016 Overview: Renamed Per Clinical Trials Billing Project. Study Title: Genomic Markers for Patients with Cardiovascular Disease Project #: [id number] PI: Peyton Conn MD [phone] LV (left ventricular) mural thrombus 10/30/2006 12/28/2017 Tobacco use disorder 09/07/2006 010 Acute inferior myocardial infarction 08/19/2006 12/11/2008 Overview: Modified by Acute [place] Protocol #5. [facility] right coronary bare metal stents EXAMINATION OF PARTICIPANT I N CLINICAL TRIAL - HORIZONS 08/19/2006 09/04/2009 Overview: Renamed Per Clinical Trials Billing Project. [facility] AMI clinical trial 263 Single blind trial comparing heparin and IIB/IIIA with bivalirudin, and Taxus vs bare metal stent. Patient Follow-up for 5 years Health Sciences Dean: Trent Verduzco [phone] [facility] Clinical Trial*[id number] 08/19/2006 09/08/2014 Overview: Renamed Per Clinical Trials Billing Project. [facility] AMI clinical trial 263 Single blind trial comparing heparin and IIB/IIIA with bivalirudin, and Taxus vs bare metal stent. Patient Follow-up for 5 years Health Sciences Dean: Trent Verduzco [phone] Menopause 08/29/2002 02/23/2017 LOC PRIM [id number] 05/29/200206/23 Dyslipidemia, goal to be determined 05/29/2002 05/07/2009 Overview: Per Lipid Taxonomy. 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 02/23/2017 documented as of this encounter (statuses as of 03/31/2023) Immunizations Name Administration Dates Next Due COVID-19 [...] encounter Miscellaneous Notes * Telephone Encounter - Burak Weathers RPh - 03/31/2023 7:38 AM ESTSigned Prescriptions: Disp Refills Anoro Ellipta 62.5-25 MCG/ACT Inhalation A*180 Bl*1 Sig: INHALEONE PUFF EVERY DAYAuthorizing Provider: MARILYN NOGUEIRA III User: BURAK WEATHERS documented in this encounter Plan of Treatment Upcoming Encounters Date Type Department Care Team (Late st Contact Info) Description 04/04/2023 2:00 PM EST Office Visit [facility] [address] [place] [address] Ashlie Swift MD [address] [place] [address] 04/17/2023 10:00 AM EST [facility] Visit [facility], [facility] [address] [place] [address] Areli Washburn, RN [address] [place] [phone] 04/18/2023 1:30 PM EST Cardiac Studies Cardiology, [facility] [address] [place] [address] [facility] [address] [place] [phone] 04/18/2023 2:00 PM EST Office Visit Pharmacy, [facility] [address] [place] [address] [facility] [address] [place] [address] 06/29/2023 8:30 AM EST Office Visit Cardiology, [facility] [address] [place] [address] Nikole Crenshaw PA-C [address] [place] [address] Health Maintenance Due Date Last Done Comments DISCUSS TOBACCO CESSATION (REFER TO SMARTSET #2975) 1945 Alpha-1 Antitrypsin 1965 Diabetic Eye Exam 1965 Diabetic Foot Exam 1965 DXA Scan 09/04/2016 09/04/2013, 09/04/2013 *ADVANCE DIRECTIVE NOT ON FILE 06/09/2019 COVID-19 Vaccine ( season) 2023 11/12/2020, 10/01/2020 Depression Screening 06/02/2023 06/02/2022 HbA1c 09/01/2023 03/02/2023, 12/21, 08/19/2006, Additional history exists GFR 09/14/2023 03/15/2023, 02/20, 03/02/2023, Additional history exists Albumin/Creatinine Ratio 03/02/2024 023, 02/21/2022, 07/23/2019 CKD PHOS USE SMARTSET 94703 03/02/202402/19, 10/07/2022, 02/21/2022, Additional history exists CKD HGB USE SMARTSET 64485 03/15/202403/15, 03/02/2023, 03/02/2023, Additional history exists O2 ASSESSMENT COMPLETED IN PAST YEAR FOR COPD 03/24/2024 03/24/2023 DTaP,Tdap,and Td Vaccines (4 - Td or [...] the patient have Health Care Power of Grader Green Meat? No Healthcare Agents on File Name Relationship Healthcare Agent Relationshi p Communication Lacy Boycery Adult Child Health Care Repr esentative (appointed verbally by patient or by statute hierarchy) Care Teams Dietary Aide Cook Relationship Specialty Start Date End Date Marilyn Nogueira III, MD [address] [facility] [place] [address] PCP - General Family Medicine 06/28/18 documented as of this encounter
--- OUTSIDE RECORDS SUMMARY | 2023-06-29 05:30 | External Medical Summary | Summary of Care ---
Author Name Unknown Organization [facility] Address [address] [facility] [place] [address] Phone [phone] Care Team Providers Care Childrens Club Attendant Name Role Phone Loli NORWOOD MD, Roman Barraza Primary Care Provider [phone] Reason for Visit * Reason Comments [facility]: Maintenance Encounter Details Date Type Department Care Team (Late st Contact Info) Description 03/24/2023 8:30 AM EDT Home Visit [facility], [facility] [address] [place] [address] Areli Washburn, LISA [address] [place] [address] Allergies Active Allergy Reactions Criticality Noted Date Comments Isosorbide Mononitrate 12/24/2007 Severe headaches Nsaids 05/29/2002 Tramadol Hcl Nausea/vomiting Low 01/09/2008 UGI distress documented as of this encounter (statuses as of 03/27/2023) Medications Medication Sig Dispensed Refills Start Date End Date Status Anoro Ellipta 62.5-25 MCG/INH Inhalation Aerosol Powder Breath Activated (umeclidinium-vilant gaurav) Inhale 1 Puff by mouth daily. 180 Blister Dosing Unit 1 04/21/2021 Active Ventolin HFA 108 (90 Base) MCG/ACT Inhalation Aerosol Solution Inhale 2 Puffs by mouth every 4 hours as needed for Wheezing or Dyspnea. 54 g 1 04/21/2021 Active Cyanocobalamin 1000 MCG Oral Tablet (Cyanocobalamin) Take by mouth 1 Tablet in the morning. 100 Tablet 5 02/24/2022 Active Additional Information Patient not taking.Reported on 03/08/2023 Ondansetron HCl 4 MG Oral Tablet (Zofran)Indications: Nausea Take 1 Tablet by mouth every 8 hours as needed for Nausea. 20 Tablet 0 02/27/2023 Active Nitroglycerin 0.4 MG Sublingual Tablet Sublingual (Nitrostat)Indicatio ns:ASCVD (arteriosclerotic cardiovascular disease),Chest pain, unspecified type DISSOLVE ONE TABLET UNDER THE TONGUE NEEDED FOR CHEST pain, maximum THREE doses 25 Tablet 5 03/01/2023 Active Additional Information Patient not taking.Reported on [...] before bedtime. 200 Tablet 5 03/13/2023 Active oxyCODONE HCl 5 MG Oral Tablet (Oxy IR)Indications:Chron ic pain syndrome Take 1 Tablet by mouth every 6 hours as needed (pain). 100 Tablet 0 03/22/2023 Active Furosemide 40 MG Oral Tablet (Lasix) Take 1 Tablet by mouth daily AND 0.5 Tablets daily at noon. 135 Tablet 3 03/23/2023 Active documented as of this encounter (statuses as of 03/27/2023) Active Problems Problem Noted Date Diagnosed Date [...] /min) 05/11/2018 Coronary artery disease invo lving [place] coronary artery of [place] heart without angina pectoris 05/08/2018 Anxiety state [...] MYOCARDIAL INFARCT 12/11/2008 Overview: Modified by Acute [place] Protocol [place]5. [facility] [place] bare [place] stents S/P angioplasty with stent 09/07/2006 History of tobacco use documented as of this encounter (statuses as of 03/27/2023) Resolved Problems Problem Noted Date Diagnosed Date [...] for Patients with Cardiovascular Disease Project #: [id number] PI: Peyton Conn MD [phone] GENOMICS CARDIO RESEARCH OTHER*[id number] 01/15/2007 06/28/2016 Overview: Renamed Per Clinical Trials Billing Project. Study Title: Genomic Markers for Patients with Cardiovascular Disease Project #: [id number] PI: Peyton Conn MD [phone] LV (left ventricular) mural thrombus 10/30/2006 12/28/2017 Tobacco use disorder 09/07/2006 010 Acute inferior myocardial infarction 08/19/2006 12/11/2008 Overview: Modified by Acute [place] Protocol #5. [facility] [place] [place] bare metal stents EXAMINATION OF PARTICIPANT I N CLINICAL TRIAL - HORIZONS 08/19/2006 09/04/2009 Overview: Renamed Per Clinical Trials Billing Project. [facility] AMI clinical trial 263 Single blind trial comparing heparin and IIB/IIIA with bivalirudin, and Taxus vs bare metal stent. Patient Follow-up for 5 years Lighter: Trent Verduzco [phone] [facility] Clinical Trial*[id number] 08/19/2006 09/08/2014 Overview: Renamed Per Clinical Trials Billing Project. [facility] AMI clinical trial 263 Single blind trial comparing heparin and IIB/IIIA with bivalirudin, and Taxus vs bare metal stent. Patient Follow-up for 5 years Lighter: Trent Verduzco [phone] Menopause 08/29/2002 02/23/2017 LOC PRIM [id number] 05/29/200206/23 Dyslipidemia, goal to be determined 05/29/2002 05/07/2009 Overview: Per Lipid Taxonomy. 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 02/23/2017 documented as of this encounter (statuses as of 03/27/2023) Immunizations Name Administration Dates Next Due COVID-19 [...] Sign Reading Time Taken Comments Blood Pressure 100/58 03/24/2023 11:42 AM EDT Pulse 80 03/24/2023 11:42 AM EDT Temperature 36.2 C (97.2 F) 03/24/2023 11:42 AM E DT Respiratory Rate 18 03/24/2023 11:42 AM EDT Oxygen Saturation 94% 03/24/2023 11:42 AM EDT Inhaled Oxygen Concentration - - Weight 63.5 kg (140 lb) 03/24/2023 11:42 AM EDT Height - - Body Mass Index 25.63 02/27/2023 4:30 PM EDT documented in this encounter Progress Notes * Areli Washburn RN - 03/24/2023 11:22 AM EDT [facility] Senior Compliance Analyst Visit Date: 03/24/2023 Time: 11:23 AM Name: Radha Tong : 1945 Current Concerns: Patient seen for follow up- COPD, CHF, CKD, Afib, HTN Recent cardiology appointment. Lasix increased to 40mg daily and 20mg in the afternoon. Kidney function slowly returning to normal. Potassium discontinued. Hemoglobin 8.4- denies dizziness/lightheadedness Weighing daily. Ranging 140-145. Weight today- 140lb VS wnl Lungs clear bilaterally Sob with exertion Edema much improved to BLE- trace nonpitting Voiding without difficulty Bowels wnl- per report Appetite good Taking fluids well Problems/Symptoms: Review of Systems Constitutional: Negative. HENT: Negative. Eyes: Negative. Respiratory: Positive for shortness of breath. Cardiovascular: Negative. Gastrointestinal: Negative. Endocrine: Negative. Genitourinary: Negative. Musculoskeletal: Positive for arthralgias. Skin: Negative. Allergic/Immunologic: Negative. Neurological: Negative. Hematological: Negative. Psychiatric/Behavioral: Negative. Physical Exam: BP 100/58 (BP Site: Left Arm, BP Position: Sitting, BP Cuff Size: Regular) | Pulse 80 | Temp 36.2 C (97.2 F) (Tympanic) | Resp 18 | Wt 63.5 kg (140 lb) | SpO2 94% | BMI 25.63 kg/m | BSA 1.67 m Pain 5- knees Physical Exam Constitutional: Appearance: Normal appearance. Cardiovascular: Rate and Rhythm: Normal rate. Rhythm irregular. Pulses: Normal pulses. Heart sounds: Normal heart sounds. Pulmonary: Effort: Pulmonary effort is normal. Breath [...] and Affect: Mood normal. Behavior: Behavior normal. [facility] Completed this Visit: No. Routine visit Treatment/Plan: Continue medications as prescribed Keep all upcoming MD appointments Avoid foods high in potassium. Low na diet Elevate ble prn edema Fluids encouraged RN CM follow up in 3 weeks. Home Interventions Provided: Reinforced current Plan of Care, including self-management and medication regimen Patient Needs to Remember: Call [facility] with any medical concerns/ red flags Referrals Needed: N/a Follow Up: Is there cellular connectivity/connectivity in the home? Yes Does the patient have internet in the home? No Patient encouraged to call the intake phone number for all urgent but not emergent issues. Scheduled to follow up with patient in 3 weeks. Areli Coates RN 03/24/2023 11:23 AM documented in this encounter Plan of Treatment Upcoming Encounters Date Type Department Care Team (Late st Contact Info) Description 03/31/2023 1:15 PM EST Cardiac Studies Cardiology, [facility] [address] [place] [address] [facility] [address] [place] [address] 04/04/2023 2:00 PM EST Office Visit Neurology [facility] [address] [place] [address] Ashlie Swift MD [address] [facility] [place] [address] 04/17/2023 10:00 AM EST Home Visit [facility] [address] [place] [address] Areli Washburn RN [address] [place] [address] 04/18/2023 2:00 PM EST Office Visit Pharmacy, [facility] [address] [place] [address] [facility] [address] [place] [address] 06/29/2023 8:30 AM EST Office Visit Cardiology, [facility] [address] [place] [address] Nikole Crenshaw PA-C [address] [place] [address] Health Maintenance Due Date Last Done Comments DISCUSS TOBACCO CESSATION (REFER TO SMARTSET #3916) 1945 Alpha-1 Antitrypsin 1965 Diabetic Eye Exam 1965 Diabetic Foot Exam 1965 DXA Scan 09/04/2016 09/04/2013, 09/04/2013 *ADVANCE DIRECTIVE NOT ON FILE 06/09/2019 COVID-19 Vaccine ( season) 2023 11/12/2020, 10/01/2020 Depression Screening 06/02/2023 06/02/2022 HbA1c 09/01/2023 03/02/2023, 12/21, 08/19/2006, Additional history exists GFR 09/14/2023 03/15/2023, 02/20, 03/02/2023, Additional history exists Albumin/Creatinine Ratio 03/02/2024 023, 02/21/2022, 07/23/2019 CKD PHOS USE SMARTSET 06951 03/02/202402/19, 10/07/2022, 02/21/2022, Additional history exists O2 ASSESSMENT COMPLETED IN PAST YEAR FOR COPD 03/10/2024 03/10/2023 CKD HGB USE SMARTSET 12369 03/15/202403/15, 03/02/2023, 03/02/2023, Additional history exists DTaP,Tdap,and Td Vaccines (4 - Td or [...] patient or by statute hierarchy) Care Teams Childrens Club Attendant Relationship Specialty Start Date End Date Roman Ennis III, MD [address] [place] [address] PCP - General Family Medicine 06/28/18 documented as of this encounter
--- OUTSIDE RECORDS SUMMARY | 2023-06-29 05:30 | External Medical Summary | Summary of Care ---
Author Name Unknown Organization [facility] Address [address] [place] [address] Phone [phone] Care Team Providers Care Knocker Out Name Role Phone Loli NORWOOD MD, Roman Barraza Primary Care Provider [phone] Reason for Visit * Reason Comments NEW PATIENT * Evaluate & Treat - Unlimited Visits (Within 30 days (routine)) - Authorized Specialty Diagnoses / Procedures Referred By Xuan bey Referred To Contact Neurology Diagnoses Convulsions, unspecified convulsion type (HCC) Xuan Xie DO [address] [place] [address] Referral ID Status Reason Start Date Expiration Date Visits Requested Visits Authorized [id number] Authorized Specialty Services Required 02/27/[phone] Encounter Details Date Type Department Care Team (Late st Contact Info) Description 04/04/2023 2:00 PM EST Office Visit Neurology [facility] [address] [place] [address] Ashlie Swift MD [address] [place] [address] New onset seizure (HCC)* Allergies Active Allergy Reactions Criticality Noted Date Comments Isosorbide Mononitrate 12/24/2007 Severe headaches Nsaids 05/29/2002 Tramadol Hcl Nausea/vomiting Low 01/09/2008 UGI distress documented as of this encounter (statuses as of 04/04/2023) Medications Medication Sig Dispensed Refills Start Date [...] by mouth in the morning. 0 Active cloNIDine HCl 0.1 MG Oral Tablet (Catapres) Take 0.5 Tablets by mouth in the morning. 0 Active hydrOXYzine HCl 25 MG Oral Tablet Take 1 Tablet by mouth 3 times a day as needed. 0 Active documented as of this encounter (statuses as of 04/04/2023) Active Problems Problem Noted Date Diagnosed Date [...] /min) 05/11/2018 Coronary artery disease invo lving sitka coronary artery of sitka heart without angina pectoris 05/08/2018 Anxiety state [...] MYOCARDIAL INFARCT 12/11/2008 Overview: Modified by Acute [place] Protocol #5. [facility] right coronary bare metal stents S/P angioplasty with stent 09/07/2006 History of tobacco use documented as of this encounter (statuses as of 04/04/2023) Resolved Problems Problem Noted Date Diagnosed Date [...] for Patients with Cardiovascular Disease Project #: [id number] PI: Peyton Conn MD [phone] GENOMICS CARDIO RESEARCH OTHER*[id number] 01/15/2007 06/28/2016 Overview: Renamed Per Clinical Trials Billing Project. Study Title: Genomic Markers for Patients with Cardiovascular Disease Project #: [id number] PI: Peyton Conn MD [phone] LV (left ventricular) mural thrombus 10/30/2006 12/28/2017 Tobacco use disorder 09/07/2006 010 Acute inferior myocardial infarction 08/19/2006 12/11/2008 Overview: Modified by Acute [place] Protocol #5. [facility] right coronary bare metal stents EXAMINATION OF PARTICIPANT I N CLINICAL TRIAL - [facility] 08/19/2006 09/04/2009 Overview: Renamed Per Clinical Trials Billing Project. [facility] AMI clinical trial 2004- 4 Single blind trial comparing heparin and IIB/IIIA with bivalirudin, and Taxus vs bare metal stent. Patient Follow-up for 5 years Radar Operator: Trent Verduzco [phone] [facility] Clinical Trial*[id number] 08/19/2006 09/08/2014 Overview: Renamed Per Clinical Trials Billing Project. [facility] AMI clinical trial 263 Single blind trial comparing heparin and IIB/IIIA with bivalirudin, and Taxus vs bare metal stent. Patient Follow-up for 5 years Radar Operator: Trent Verduzco [phone] Menopause 08/29/2002 02/23/2017 LOC PRIM [id number] 05/29/200206/23 Dyslipidemia, goal to be determined 05/29/2002 05/07/2009 Overview: Per Lipid Taxonomy. 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 The patient found herself lying on the floor placed a face all bloody. She was taken to [facility] in the hospital had an EEG and [...] girlfriend. She was hospitalized, once again, at [facility], was in the hospital 8 days and [...] Date Acute inferior myocardial infarction (HCC) 08/19/2006 [facility] right coronary bare metal stents Automatic implantable cardiac defibrillator in situ 11/24/2008 [facility], Dr Bhavani Loay EF 20-25% COMMON MIGRAINE WITHOUT MENTION OF [...] right coronary artery 3 bare metal stents, [facility] CARPAL TUNNEL SURGERY Bilateral 02/20/2020 NEUROPLASTY MEDIAN NERVE AT CARPAL TUNNEL performed by Lore Richey DO at OR [facility] INSERT PULSE GENERATOR, EXISTING SINGLE LEAD 08/06/2013 NEW ICD GENERATOR ONLY performed by Tylor Loya MD at [facility] LAP;W/HYSTERECTOMY 02/04/2020 LEFT VENTRICULAR PACING ELECTRODE, ADD-ON 11/24/08 CS LEAD PLACEMENT WITH INITIAL DEVICE performed by TYLOR LOYA at [facility] MAMMOGRAM - BILATERAL 07/17/02 Birad Code 2 PACEMAKER-DEFIBRILLATOR ELECTRODE INSERT, SINGLE 08/09/2013 REPLACE LEAD (1 LEAD) performed by Monik Arnold IV, MD at [facility] REMOVE CATARACT, INSERT LENS PROSTH Right REMOVE GALLBLADDER 1990s Cholecystectomy, Erick TENDON SHEATH INCISION, FINGER Bilateral 02/20/2020 TRIGGER FINGER RELEASE performed by Lore Richey DO at OR [facility] VAGINAL DELIVERY ONLY times 5 Family History [...] unclear to me what happened in her [place] [facility] for 8 days. She is obtaining records from [facility] for my review. She also has left-sided [...] Description 04/17/2023 10:00 AM EST Home Visit [facility], [facility] [address] [place] [address] Areli Washburn, RN [address] [place] [address] 04/18/2023 1:30 PM EST Cardiac Studies Cardiology, [facility] [place] [address] [facility] [place] [address] 04/18/2023 2:00 PM EST Office Visit Pharmacy, [facility] [address] [facility] [place] [address] [facility] [place] [address] 06/29/2023 8:30 AM EST Office Visit Cardiology, [facility] [address] [facility] [place] [address] Nikole Crenshaw, YOGESH 132 [facility] [place] [address] 07/05/2023 3:40 PM EST Office Visit Neurology [facility] [place] [address] [place] [address] Ashlie Swift MD [address] [place] [address] Health Maintenance Due Date Last Done Comments DISCUSS TOBACCO CESSATION (REFER TO SMARTSET #329) 1945 Alpha-1 Antitrypsin 1965 Diabetic Eye Exam 1965 Diabetic Foot Exam 1965 DXA Scan 09/04/2016 09/04/2013, 09/04/2013 *ADVANCE DIRECTIVE NOT ON FILE 06/09/2019 COVID-19 Vaccine ( season) 2023 11/12/2020, 10/01/2020 Depression Screening 06/02/2023 06/02/2022 HbA1c 09/01/2023 03/02/2023, 12/21, 08/19/2006, Additional history exists GFR 09/14/2023 03/15/2023, 02/20, 03/02/2023, Additional history exists Albumin/Creatinine Ratio 03/02/2024 023, 02/21/2022, 07/23/2019 CKD PHOS USE SMARTSET 48131 03/02/202402/19, 10/07/2022, 02/21/2022, Additional history exists CKD HGB USE SMARTSET 49619 03/15/202403/15, 03/02/2023, 03/02/2023, Additional history exists O2 [...] the patient have Health Care Power of Network Project Manager? No Healthcare Agents on File Name Relationship Healthcare Agent Relationshi p Communication Lacy Tong Adult Child Health Care Repr esentative (appointed verbally by patient or by statute hierarchy) Care Teams Knocker Out Relationship Specialty Start Date End Date Roman Ennis III, MD [address] [place] [address] PCP - General Family Medicine 06/28/18 documented as of this encounter
--- OUTSIDE RECORDS SUMMARY | 2023-06-29 05:30 | External Medical Summary | Summary of Care ---
Author Name Unknown Organization [facility] Address [address] [place] [address] Phone [phone] Care Team Providers Care Cyber Software Engineer Name Role Phone Loli NORWOOD MD, Marilyn Barraza Primary Care Provider [phone] Reason for Referral * Medication Prior Authorization - Closed Specialty Diagnoses / Procedures Referred By Xuan bey Referred To Contact Diagnoses Chronic pain syndrome Marilyn Nogueira III, MD [address] [place] [address] Referral ID Status Reason Start Date Expiration Date Visits Re quested Visits Authorized [id number] Closed [phone] Reason for Visit * Reason Onset Date Comments Medication Refill 04/11/2023 Encounter Details Date Type Department Care Team (Late st Contact Info) Description 04/11/2023 Refill Family Practice [facility] [address] [place] [address] Marilyn Nogueira III, MD [address] [place] [address] Chronic pain syndrome Allergies Active Allergy Reactions Criticality Noted Date Comments Isosorbide Mononitrate 12/24/2007 Severe headaches Nsaids 05/29/2002 Tramadol Hcl Nausea/vomiting Low 01/09/2008 UGI distress documented as of this encounter (statuses as of 04/12/2023) Medications Medication Sig Dispensed Refills Start Date [...] oxyCODONE HCl 5 MG Oral Tablet (Oxy IR)Indications:Router Tender fernando pain syndrome Take 1 Tablet by mouth every 6 hours as needed (pain). 100 Tablet 0 04/12/2023 Active oxyCODONE HCl 5 MG Oral Tablet (Oxy IR)Indications:Router Tender fernando pain syndrome Take 1 Tablet by mouth every 6 hours as needed (pain). 100 Tablet 0 03/22/2023 04/11/20 23 Discontinu ed(Refill) documented as of this encounter (statuses as of 04/12/2023) Active Problems Problem Noted Date Diagnosed Date [...] /min) 05/11/2018 Coronary artery disease invo lving crow coronary artery of crow heart without angina pectoris 05/08/2018 Anxiety state [...] Overview: Modified by [place] Protocol #5. [facility] right coronary bare metal stents S/P angioplasty with stent 09/07/2006 History of tobacco use documented as of this encounter (statuses as of 04/12/2023) Resolved Problems Problem Noted Date Diagnosed Date [...] for Patients with Cardiovascular Disease Project #: [id number] PI: Peyton Conn MD [phone] GENOMICS CARDIO RESEARCH OTHER*[id number] 01/15/2007 06/28/2016 Overview: Renamed Per Clinical Trials Billing Project. Study Title: Genomic Markers for Patients with Cardiovascular Disease Project #: [id number] PI: Peyton Conn MD [phone] LV (left ventricular) mural thrombus 10/30/2006 12/28/2017 Tobacco use disorder 09/07/2006 010 Acute inferior myocardial infarction 08/19/2006 12/11/2008 Overview: Modified by Acute [place] Protocol #5. [facility] right coronary bare metal stents EXAMINATION OF PARTICIPANT I N CLINICAL TRIAL - [facility] 08/19/2006 09/04/2009 Overview: Renamed Per Clinical Trials Billing Project. [facility] AMI clinical trial 263 Single blind trial comparing heparin and IIB/IIIA with bivalirudin, and Taxus vs bare metal stent. Patient Follow-up for 5 years Inlayer: Trent Verduzco [phone] [facility] Clinical Trial*[id number] 08/19/2006 09/08/2014 Overview: Renamed Per Clinical Trials Billing Project. [facility] AMI clinical trial 263 Single blind trial comparing heparin and IIB/IIIA with bivalirudin, and Taxus vs bare metal stent. Patient Follow-up for 5 years Inlayer: Trent Verduzco [phone] Menopause 08/29/2002 02/23/2017 LOC PRIM [id number] 05/29/200206/23 Dyslipidemia, goal to be determined 05/29/2002 05/07/2009 Overview: Per Lipid Taxonomy. 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 02/23/2017 documented as of this encounter (statuses as of 04/12/2023) Immunizations Name Administration Dates Next Due COVID-19 [...] Encounter - Marilyn Nogueira III, MD - 04/12/2023 11:29 AM ESTSigned Prescriptions: Disp Refills oxyCODONE HCl 5 MG Oral Tablet (Oxy IR) 100 Ta*0 Sig: Take 1 Tablet by mouth every 6 hours as needed (pain).Authorizing Provider: MARILYN NOGUEIRA III * Telephone Encounter - Sonia Luis [facility] - 04/12/2023 10:52 AM ESTPending Prescriptions: Disp Refills oxyCODONE HCl 5 MG Oral Tablet (Oxy IR) 100 Ta*0 Sig: Take 1 Tablet by mouth every 6 hours as needed (pain). * Telephone Encounter - Sonia Luis [facility] - 04/12/2023 10:52 AM EST I have reviewed the patients controlled substance dispensing history in the Prescription Drug Monitoring Program in compliance with the [facility] regulations before prescribing a controlled substance. PDMP checked on 04/12/2023. Pending Prescriptions: Disp Refills oxyCODONE HCl 5 MG Oral Tablet (Oxy IR) 100 Ta*0 Sig: Take 1 Tablet by mouth every 6 hours as needed (pain). Last Visit: 02/27/2023 (in office), 08/24/2020 (telemedicine) Next Visit: Visit date not found Date medication was last filled: 03/22/23 Date medication is due for refill: 04/15/23 [facility] [address] [place] Is this request for [...] Results Review. Please approve if appropriate. Thank You, Sonia Luis [facility] Clinical Pharmacist Centralized Clinical Pharmacy Services (CCPS) (formerly Telepharmacy) [phone] 04/12/2023, 10:52 AM * Telephone Encounter - Mercedes Clinton [facility] - 04/11/2023 10:00 AM EST Pt requesting the medication today because she does not know if her pharmacy will be open Monday because of the holiday Did you pend patient's preferred pharmacy and medication before forwarding?yes Pharmacy: [facility], [address] [place] Pending Prescriptions: Disp Refills [...] appointment Last date the medication was ordered: 03/22/23 Is this request for a controlled substance?Yes, What was the last refill date 03/22/23 w/ quantity 100 and dosage 5 MG [...] Labs: Lab Results Component Value Date/Time CREAT 1.1 (H) 03/15/2023 07:38 AM CREAT 0.75 10/07/2022 12:00 AM CREAT 1.1 (H) 02/17/2020 01:00 PM POTASSIUM 5.1 03/15/2023 07:38 AM POTASSIUM 3.8 10/07/2022 12:00 AM POTASSIUM [...] Description 04/17/2023 10:00 AM EST [facility] [address] [place] [address] Areli Washburn RN [address] [place] [address] 04/18/2023 1:30 PM EST Cardiac Studies Cardiology, [facility] [address] [facility] [place] [address] [facility] [address] [facility] [place] [address] 04/18/2023 2:00 PM EST Office Visit Pharmacy, [facility] [address] [facility] [place] [address] [facility] [address] [facility] [place] [address] 06/29/2023 8:30 AM EST Office Visit Cardiology, [facility] 132 [facility] [place] [address] Nikole Crenshaw PA-C 132 [facility] [place] [address] 07/05/2023 3:40 PM EST Office Visit [facility]rology [facility] 200 [facility] [place] [address] Ashlie Swift MD [address] [facility] [place] [address] Health Maintenance Due Date Last Done Comments [...] 023, 02/21/2022, 07/23/2019 CKD PHOS USE SMARTSET 50902 03/02/202402/19, 10/07/2022, 02/21/2022, Additional history exists CKD HGB USE SMARTSET 01822 03/15/202403/15, 03/02/2023, 03/02/2023, Additional history exists O2 [...] the patient have Health Care Power of Telephone Messenger? No Healthcare Agents on File Name Relationship Healthcare Agent Relationshi p Communication Lacy Tong Adult Child Health Care Repr esentative (appointed verbally by patient or by statute hierarchy) Care Teams Cyber Software Engineer Relationship Specialty Start Date End Date Marilyn Nogueira III, MD [address] [place] [address] PCP - General Family Medicine 06/28/18 documented as of this encounter
--- OUTSIDE RECORDS SUMMARY | 2023-06-29 05:30 | External Medical Summary | Summary of Care ---
Author Name Unknown Organization [facility] Address [address] [facility] [place] [address] Phone [phone] Care Team Providers Care Twisting Frame Changer Name Role Phone Loli NORWOOD MD, Roman Barraza Primary Care Provider [phone] Encounter Details Date Type Department Care Team (Late st Contact Info) Description 12/21/2022 Population Health External Data Unspecified Department Allergies Active Allergy Reactions Criticality Noted Date Comments Isosorbide Mononitrate 12/24/2007 Severe headaches Nsaids 05/29/2002 Tramadol Hcl Nausea/vomiting Low 01/09/2008 UGI distress documented as of this encounter (statuses as of 04/03/2023) Medications Medication Sig Dispensed Refills Start Date [...] Additional Information Patient not taking.Reported on 03/08/2023 documented as of this encounter (statuses as of 04/03/2023) Active Problems Problem Noted Date Diagnosed Date [...] /min) 05/11/2018 Coronary artery disease invo lving [place] coronary artery of [place] heart without angina pectoris 05/08/2018 Anxiety [...] Overview: Modified by Acute [place] Protocol #5. [facility] right coronary bare metal stents S/P angioplasty with stent 09/07/2006 History of tobacco use documented as of this encounter (statuses as of 04/03/2023) Resolved Problems Problem Noted Date Diagnosed Date [...] for Patients with Cardiovascular Disease Project #: [id number] PI: Peyton Conn MD [phone] GENOMICS CARDIO RESEARCH OTHER*[id number] 01/15/2007 06/28/2016 Overview: Renamed Per Clinical Trials Billing Project. Study Title: Genomic Markers for Patients with Cardiovascular Disease Project #: [id number] PI: Peyton Conn MD [phone] LV (left ventricular) mural thrombus 10/30/2006 12/28/2017 Tobacco use disorder 09/07/2006 010 Acute inferior myocardial infarction 08/19/2006 12/11/2008 Overview: Modified by Acute [place] Protocol #5. [facility] right coronary bare metal stents EXAMINATION OF PARTICIPANT I N CLINICAL TRIAL - [facility] 08/19/2006 09/04/2009 Overview: Renamed Per Clinical Trials Billing Project. [facility] AMI clinical trial 263 Single blind trial comparing heparin and IIB/IIIA with bivalirudin, and Taxus vs bare metal stent. Patient Follow-up for 5 years Site Project Manager: Trent Verduzco [phone] [facility] Clinical Trial*[id number] 08/19/2006 09/08/2014 Overview: Renamed Per Clinical Trials Billing Project. [facility] AMI clinical trial 263 Single blind trial comparing heparin and IIB/IIIA with bivalirudin, and Taxus vs bare metal stent. Patient Follow-up for 5 years Site Project Manager: Trent Verduzco [phone] Menopause 08/29/2002 02/23/2017 LOC PRIM [id number] 05/29/200206/23 Dyslipidemia, goal to be determined 05/29/2002 05/07/2009 Overview: Per Lipid Taxonomy. 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 200 [facility] [place], [place] [address] Ashlie Swift MD 200 [facility] [address] [place] [address] 04/17/2023 10:00 AM EST Home Visit [facility] [address] [place] [address] Areli Washburn, LISA [address] [place] [address] 04/18/2023 1:30 PM EST Cardiac Studies Cardiology, [facility] [address] [facility] [place] [address] [facility] [address] [facility] [place] [address] 04/18/2023 2:00 PM EST Office Visit Pharmacy, [facility] [address] [facility] [place] [address] [facility] [address] [facility] [place] [address] 06/29/2023 8:30 AM EST Office Visit Cardiology, [facility] [address] [facility] [place] [address] Nikole Crenshaw PA-C 132 [facility] [place] [address] Health Maintenance Due Date Last Done Comments [...] 023, 02/21/2022, 07/23/2019 CKD PHOS USE SMARTSET 55191 03/02/202402/19, 10/07/2022, 02/21/2022, Additional history exists CKD HGB USE SMARTSET 76299 03/15/202403/15, 03/02/2023, 03/02/2023, Additional history exists O2 [...] patient have Health Care Power of Senior Maintenance Mechanic? No Healthcare Agents on File Name Relationship Healthcare Agent Relationshi p Communication Lacy Tong Adult Child Health Care Repr esentative (appointed verbally by patient or by statute hierarchy) Care Teams Twisting Frame Changer Relationship Specialty Start Date End Date Roman Ennis III, MD 200 [facility] [place] [address] PCP - General Family Medicine 06/28/18 documented as of this encounter
--- OUTSIDE RECORDS SUMMARY | 2023-06-29 05:30 | External Medical Summary | Summary of Care ---
Author Name Unknown Organization [facility] Address [address] [facility] [place] [address] Phone [phone] Care Team Providers Care Toe Stripper Name Role Phone Loli NORWOOD MD, Roman Barraza Primary Care Provider [phone] Encounter Details Date Type Department Care Team (Late st Contact Info) Description 10/19/2022 Population Health External Data Unspecified Department Allergies [...] /min) 05/11/2018 Coronary artery disease invo lving [place] coronary artery of [place] heart without angina pectoris 05/08/2018 Anxiety state [...] MYOCARDIAL INFARCT 12/11/2008 Overview: Modified by Acute [place] Protocol #5. [facility] right coronary bare [...] for Patients with Cardiovascular Disease Project #: [id number] PI: Peyton Conn MD [phone] GENOMICS CARDIO RESEARCH OTHER*[id number] 01/15/2007 06/28/2016 Overview: Renamed Per Clinical Trials Billing Project. Study Title: Genomic Markers for Patients with Cardiovascular Disease Project #: [id number] PI: Peyton Conn MD [phone] LV (left ventricular) mural thrombus 10/30/2006 12/28/2017 Tobacco use disorder 09/07/2006 010 Acute inferior myocardial infarction 08/19/2006 12/11/2008 Overview: Modified by Acute [place] Protocol #5. [facility] right coronary bare metal stents EXAMINATION OF PARTICIPANT I N CLINICAL TRIAL - [facility] 08/19/2006 09/04/2009 Overview: Renamed Per Clinical Trials Billing Project. [facility] AMI clinical trial 263 Single blind trial comparing heparin and IIB/IIIA with bivalirudin, and Taxus vs bare metal stent. Patient Follow-up for 5 years Escrow Agent: Trent Verduzco [phone] [facility] Clinical Trial*[id number] 08/19/2006 09/08/2014 Overview: Renamed Per Clinical Trials Billing Project. [facility] AMI clinical trial 263 Single blind trial comparing heparin and IIB/IIIA with bivalirudin, and Taxus vs bare metal stent. Patient Follow-up for 5 years Escrow Agent: Trent Verduzco [phone] Menopause 08/29/2002 02/23/2017 LOC PRIM [id number] 05/29/200206/23 Dyslipidemia, goal to be determined 05/29/2002 [...] 04/04/2023 2:00 PM EST Office Visit Neurology [facility] [address] [facility] [place], [place] [address] Ashlie Swift MD [address] [facility] [place] [address] 04/17/2023 10:00 AM EST Home Visit [facility] [address] [place] [address] Areli Washburn, LISA [address] [place] [address] 04/18/2023 1:30 PM EST Cardiac Studies Cardiology, [facility] [address] [facility] [place] [address] [facility] [address] [facility] [place] [address] 04/18/2023 2:00 PM EST Office Visit Pharmacy, [facility] [address] [facility] [place] [address] [facility] [address] [facility] [place] [address] 06/29/2023 8:30 AM EST Office Visit Cardiology, [facility] [address] [facility] [place] [address] Nikole Crenshaw PA-C [address] [facility] [place] [address] Health Maintenance Due Date Last Done Comments [...] 023, 02/21/2022, 07/23/2019 CKD PHOS USE SMARTSET 31234 03/02/202402/19, 10/07/2022, 02/21/2022, Additional history exists CKD HGB USE SMARTSET 91364 03/15/202403/15, 03/02/2023, 03/02/2023, Additional history exists O2 [...] the patient have Health Care Power of Stunner Animal? No Healthcare Agents on File Name Relationship Healthcare Agent Relationshi p Communication Lacy Tong Adult Child Health Care Repr esentative (appointed verbally by patient or by statute hierarchy) Care Teams Toe Stripper Relationship Specialty Start Date End Date Roman Ennis III, MD [address] [place] [address] PCP - General Family Medicine 06/28/18 documented as of this encounter
--- OUTSIDE RECORDS SUMMARY | 2023-06-29 05:31 | External Medical Summary | Summary of Care ---
Author Name Unknown Organization [facility] Address [address] [place] [address] Phone [phone] Care Team Providers Care Internal Medicine Doctor Name Role Phone Loli NORWOOD MD, Roman Barraza Primary Care Provider [phone] Reason for Visit * Reason Comments [facility]: Maintenance Encounter Details Date Type Department Care Team (Late st Contact Info) Description 03/10/2023 12:30 PM EDT [facility], [facility] [address] [place] [address] Areli Washburn, LISA [address] [place] [address] Allergies Active Allergy Reactions Criticality Noted Date Comments Isosorbide Mononitrate 12/24/2007 Severe headaches Nsaids 05/29/2002 Tramadol Hcl Nausea/vomiting Low 01/09/2008 UGI distress documented as of this encounter (statuses as of 03/20/2023) Medications Medication Sig Dispensed Refills Start Date [...] Additional Information Patient not taking.Reported on 03/08/2023 oxyCODONE HCl 5 MG Oral Tablet (Oxy IR)Indications:Area Development Manager fernando pain syndrome Take 1 Tablet by mouth every 6 hours as needed (pain). 100 Tablet 0 02/26/2023 Active Ondansetron HCl 4 MG Oral Tablet [...] the morning. 30 Tablet 5 03/09/2023 Active Furosemide 40 MG Oral Tablet (Lasix) Take 1 Tablet by mouth in the morning. 30 Tablet 11 03/09/2023 Active Gabapentin 300 MG Oral Capsule [...] the morning. 90 Tablet 5 03/09/2023 Active cloNIDine HCl 0.1 MG Oral Tablet (Catapres) Take 0.5 Tablets by mouth in the morning. 15 Tablet 11 03/09/2023 03/10/20 Discontinu ed(Medicat ion List Clean Up) hydrOXYzine HCl 25 MG Oral Tablet TAKE ONE TABLET BY MOUTH THREE TIMES DAILY NEEDED FOR ANXIETY 90 Tablet 2 03/09/2023 03/10/20 Discontinu ed(Medicat ion List Clean Up) Potassium Chloride Kim ER 20 MEQ Oral Tablet Extended Release Take 1 Tablet by mouth in the morning. 30 Tablet 11 03/09/2023 03/13/20 Discontinu ed(Adverse reaction) Metoprolol Succinate ER 25 MG Oral Tablet Extended Release 24 Hour (toPROL XL) Take 1 Tablet by mouth in the morning. 90 Tablet 5 03/09/2023 03/13/20 Discontinu ed(Refill) documented as of this encounter (statuses as of 03/20/2023) Active Problems Problem Noted Date Diagnosed Date [...] /min) 05/11/2018 Coronary artery disease invo lving [place] coronary artery of [place] heart without angina pectoris 05/08/2018 Anxiety state [...] Overview: Modified by Acute MD Protocol #5. [facility] right coronary bare metal stents S/P angioplasty with stent 09/07/2006 History of tobacco use documented as of this encounter (statuses as of 03/20/2023) Resolved Problems Problem Noted Date Diagnosed Date [...] for Patients with Cardiovascular Disease Project #: [id number] PI: Peyton Conn MD [phone] GENOMICS CARDIO RESEARCH OTHER*[id number] 01/15/2007 06/28/2016 Overview: Renamed Per Clinical Trials Billing Project. Study Title: Genomic Markers for Patients with Cardiovascular Disease Project #: [id number] PI: Peyton Conn MD [phone] LV (left ventricular) mural thrombus 10/30/2006 12/28/2017 Tobacco use disorder 09/07/2006 010 Acute inferior myocardial infarction 08/19/2006 12/11/2008 Overview: Modified by Acute MD Protocol #5. [facility] right coronary bare metal stents EXAMINATION OF PARTICIPANT I N CLINICAL TRIAL - [place] 08/19/2006 09/04/2009 Overview: Renamed Per Clinical Trials Billing Project. [facility] AMI clinical trial 2004- 0264 Single blind trial comparing heparin and IIB/IIIA with bivalirudin, and Taxus vs bare metal stent. Patient Follow-up for 5 years Loom Mechanic: Trent Verduzco [phone] [facility] Clinical Trial*[id number] 08/19/2006 09/08/2014 Overview: Renamed Per Clinical Trials Billing Project. [facility] AMI clinical trial 263 Single blind trial comparing heparin and IIB/IIIA with bivalirudin, and Taxus vs bare metal stent. Patient Follow-up for 5 years Loom Mechanic: Trent GeovannySarah Verduzco [phone] Menopause 08/29/2002 02/23/2017 LOC PRIM [id number] 05/29/200206/23 Dyslipidemia, goal to be determined 05/29/2002 05/07/2009 Overview: Per Lipid Taxonomy. 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 02/23/2017 documented as of this encounter (statuses as of 03/20/2023) Immunizations Name Administration Dates Next Due COVID-19 [...] Sign Reading Time Taken Comments Blood Pressure 98/58 03/10/2023 1:16 PM EDT Pulse 84 03/10/2023 1:16 PM EDT Temperature 36.4 C (97.6 F) 03/10/2023 1:16 PM ED T Respiratory Rate 18 03/10/2023 1:16 PM EDT Oxygen Saturation 93% 03/10/2023 1:16 PM EDT Inhaled Oxygen Concentration - - Weight - - Height - - Body Mass Index - - documented in this encounter Progress Notes * Areli Washburn RN - 03/10/2023 12:09 PM EDT [facility] Band Saw Operator Cake Cutting Visit Date: 03/10/2023 Time: 12:09 PM Name: Radha Tong : 1945 Current Concerns: Patient seen for close follow up- medications discrepancies- see 01/19 [facility] discharge. Patient to have stopped Clonidine, Lisinopril, Furosemide, Potassium, Trazodone, Hydroxyzine. Bottle med review with enrollment visit- patient was taking above medications with exception of Hydroxyzine. Son present for visit. Spoke with Kilo Foster PA-C regarding above. Patient to continue to hold Potassium and discontinue Clonidine and Hydroxyzine. Continue Lisinopril and Furosemide. Patient and son in agreement. Call to [facility] pharmacy. Spoke with Eddie. Made aware of above. They will begin to prepare pill packs per request of patient and DIL. Cardiology appointment made for 03/13- DIL able to take- patient aware of card/mobile lab appointments. VS wnl Lungs clear but diminished Continues to smoke Sob with exertion Edema unchanged from 03/08 Voiding without difficulty Bowels wnl- per report Denies discomfort Problems/Symptoms: Review of Systems Constitutional: Negative. HENT: Negative. Eyes: Negative. Respiratory: Positive for shortness of breath. Cardiovascular: Positive for leg swelling. Gastrointestinal: Negative. Endocrine: Negative. Genitourinary: Negative. Musculoskeletal: Positive for arthralgias and gait problem. Skin: Negative. Allergic/Immunologic: Negative. Hematological: Negative. Psychiatric/Behavioral: Negative. Physical Exam: BP 98/58 (BP Site: Left Arm, BP Position: Sitting, BP Cuff Size: Regular) | Pulse 84 | Temp 36.4 C (97.6 F) (Tympanic) | Resp 18 | SpO2 93% Pain 0 [facility]-10 Completed this Visit: No. No falls since last visit Treatment/Plan: Clonidine removed from pill box. Potassium removed 03/08. Will await visit with Cardiology for further direction Mobile lab 03/15- BMP and CBC Continue medications as prescribed Keep all upcoming MD appointments Fall precautions- walker with ambulation Fluids encouraged Elevate ble- edema RN CM follow up in 2 weeks Home Interventions Provided: Consulted PCP/Specialist Reinforced current Plan of Care, including self-management and medication regimen Patient's Goals of Care: To be healthier Maintain my weight Stay at home Patient's 'Red Flags': Increase dizziness, weakness Increase shortness of breath Patient Needs to Remember: Call [facility] with any medical concerns/ red flags Referrals Needed: N/a Follow Up: Is there cellular connectivity/connectivity in the home? Yes Does the patient have internet in the home? No Patient encouraged to call the intake phone number for all urgent but not emergent issues. Scheduled to follow up with patient in 2 weeks. Areli Coates RN 03/10/2023 12:09 PM documented in this encounter Plan of Treatment Upcoming Encounters Date Type Department Care Team (Late st Contact Info) Description 03/24/2023 8:30 AM EDT Home Visit [facility] [address] [place] [address] Areli Washburn, LISA [address] [place] [address] 03/31/2023 1:15 PM EST Cardiac Studies Cardiology, [facility] [address] [place] [address] [facility] [address] [place] [address] 04/19/2023 9:30 AM EST Office Visit Pharmacy, [facility] [address] [facility] [place] [address] [facility] [address] [facility] [place] [address] 06/29/2023 8:30 AM EST Office Visit Cardiology, [facility] [address] [place] [address] Nikole Crenshaw PA-C [address] [place] [address] Health Maintenance Due Date Last Done Comments DISCUSS TOBACCO CESSATION (REFER TO SMARTSET #3292) 1945 Alpha-1 Antitrypsin 1965 Diabetic Eye Exam 1965 Diabetic Foot Exam 1965 DXA Scan 09/04/2016 09/04/2013, 09/04/2013 *ADVANCE DIRECTIVE NOT ON FILE 06/09/2019 COVID-19 Vaccine ( season) 2023 11/12/2020, 10/01/2020 Depression Screening 06/02/2023 06/02/2022 HbA1c 09/01/2023 03/02/2023, 12/21, 08/19/2006, Additional history exists GFR 09/14/2023 03/15/2023, 02/20, 03/02/2023, Additional history exists Albumin/Creatinine Ratio 03/02/2024 023, 02/21/2022, 07/23/2019 CKD PHOS USE SMARTSET 73866 03/02/202402/19, 10/07/2022, 02/21/2022, Additional history exists O2 ASSESSMENT COMPLETED IN PAST YEAR FOR COPD 03/10/2024 03/10/2023 CKD HGB USE SMARTSET 49551 03/15/202403/15, 03/02/2023, 03/02/2023, Additional history exists DTaP,Tdap,and [...] the patient have Health Care Power of Hall Supervisor? No Healthcare Agents on File Name Relationship Healthcare Agent Relationshi p Communication Lacy Tong Adult Child Health Care Repr esentative (appointed verbally by patient or by statute hierarchy) Care Teams Internal Medicine Doctor Relationship Specialty Start Date End Date Roman Ennis III, MD [address] [place] [address] PCP - General Family Medicine 06/28/18 documented as of this encounter
--- OUTSIDE RECORDS SUMMARY | 2023-06-29 05:31 | External Medical Summary | Summary of Care ---
Author Name Unknown Organization [facility] Address [address] [place] [address] Phone [phone] Care Team Providers Care Forge Press Operator Name Role Phone Loli NORWOOD MD, Roman Barraza Primary Care Provider [phone] Reason for Visit * Reason Onset Date Comments Medication Question 03/17/2023 Encounter Details Date Type Department Care Team (Late st Contact Info) Description 03/17/2023 Telephone Family Practice [facility] [place] [address] [facility] [place] [address] Roman Ennis III, MD [address] [facility] [place] [address] Medication Question Allergies Active Allergy Reactions Criticality Noted Date Comments Isosorbide Mononitrate 12/24/2007 Severe headaches Nsaids 05/29/2002 Tramadol Hcl Nausea/vomiting Low 01/09/2008 UGI distress documented as of this encounter (statuses as of 03/17/2023) Medications Medication Sig Dispensed Refills Start Date [...] before bedtime. 200 Tablet 5 03/13/2023 Active documented as of this encounter (statuses as of 03/17/2023) Active Problems Problem Noted Date Diagnosed Date [...] /min) 05/11/2018 Coronary artery disease invo lving [place] coronary artery of [place] heart without angina pectoris 05/08/2018 Anxiety state [...] Overview: Modified by Acute [place] Protocol #5. [facility] right coronary bare metal stents S/P angioplasty with stent 09/07/2006 History of tobacco use documented as of this encounter (statuses as of 03/17/2023) Resolved Problems Problem Noted Date Diagnosed Date [...] for Patients with Cardiovascular Disease Project #: [id number] PI: Peyton Conn MD [phone] GENOMICS CARDIO RESEARCH OTHER*[id number] 01/15/2007 06/28/2016 Overview: Renamed Per Clinical Trials Billing Project. Study Title: Genomic Markers for Patients with Cardiovascular Disease Project #: [id number] PI: Peyton Conn MD [phone] LV (left ventricular) mural thrombus 10/30/2006 12/28/2017 Tobacco use disorder 09/07/2006 010 Acute inferior myocardial infarction 08/19/2006 12/11/2008 Overview: Modified by Acute [place] Protocol #5. [facility] right coronary bare metal stents EXAMINATION OF PARTICIPANT I N CLINICAL TRIAL - [place] 08/19/2006 09/04/2009 Overview: Renamed Per Clinical Trials Billing Project. [facility] AMI clinical trial 263 Single blind trial comparing heparin and IIB/IIIA with bivalirudin, and Taxus vs bare metal stent. Patient Follow-up for 5 years Vision Rehabilitation Therapist: Trent Verduzco [phone] [facility] Clinical Trial*[id number] 08/19/2006 09/08/2014 Overview: Renamed Per Clinical Trials Billing Project. [facility] AMI clinical trial 263 Single blind trial comparing heparin and IIB/IIIA with bivalirudin, and Taxus vs bare metal stent. Patient Follow-up for 5 years Vision Rehabilitation Therapist: Trent Verduzco [phone] Menopause 08/29/2002 02/23/2017 LOC PRIM [id number] 05/29/200206/23 Dyslipidemia, goal to be determined 05/29/2002 05/07/2009 Overview: Per Lipid Taxonomy. 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 Thank you, Chrystal Montes De Oca PharmD, SALLY Clinical Pharmacist [facility] ([facility]) (formerly Telepharmacy) 03/17/23 9:32 AM [phone] * Telephone Encounter - Earl Keys PHARM Tech - 03/17/2023 9:19 AM EDT [facility] requesting med list be faxed to them for pt. Please fax it to [phone]. Thank You, Earl Keys [facility] Cement Storage Worker II [facility] (Formerly Telepharmacy) 03/17/2023, 9:20 AM documented in this encounter Plan of Treatment Upcoming Encounters Date Type Department Care Team (Late st Contact Info) Description 03/24/2023 8:30 AM EDT Home Visit [facility], [facility] [address] [place] [address] Areli Washburn, LISA [address] [facility] [place] [address] 03/31/2023 1:15 PM EST Cardiac Studies Cardiology, [facility] [address] [facility] [place] [address] [facility] [place] [address] 04/19/2023 9:30 AM EST Office Visit Pharmacy, [facility] [address] [facility] [place] [address] [facility] [address] [facility] [place] [address] 06/29/2023 8:30 AM EST Office Visit Cardiology, [facility] [place] [address] Nikole Crenshaw PA-C [address] [facility] [place] [address] Health Maintenance Due Date Last Done Comments DISCUSS TOBACCO CESSATION (REFER TO SMARTSET #3291) 1945 Alpha-1 Antitrypsin 1965 DIABETES-EYE EXAM 1965 Diabetic Foot Exam 1965 DXA Scan 09/04/2016 09/04/2013, 09/04/2013 *ADVANCE DIRECTIVE NOT ON FILE 06/09/2019 COVID-19 Vaccine ( season) 2023 11/12/2020, 10/01/2020 Depression Screening 06/02/2023 06/02/2022 HbA1c 09/01/2023 03/02/2023, 12/21, 08/19/2006, Additional history exists GFR 09/14/2023 03/15/2023, 02/20, 03/02/2023, Additional history exists Albumin/Creatinine Ratio 03/02/2024 023, 02/21/2022, 07/23/2019 CKD PHOS USE SMARTSET 75157 03/02/202402/19, 10/07/2022, 02/21/2022, Additional history exists O2 ASSESSMENT COMPLETED IN PAST YEAR FOR COPD 03/10/2024 03/10/2023 CKD HGB USE SMARTSET 21837 03/15/202403/15, 03/02/2023, 03/02/2023, Additional history exists DTaP,Tdap,and [...] the patient have Health Care Power of Book Cutter? No Healthcare Agents on File Name Relationship Healthcare Agent Relationshi p Communication Lacy Tong Adult Child Health Care Repr esentative (appointed verbally by patient or by statute hierarchy) Care Teams Forge Press Operator Relationship Specialty Start Date End Date Roman Ennis III, MD [address] [place] [address] PCP - General Family Medicine 06/28/18 documented as of this encounter
--- OUTSIDE RECORDS SUMMARY | 2023-06-29 05:31 | External Medical Summary | Summary of Care ---
Author Name Unknown Organization [facility] Address [address] [facility] [place] [address] Phone [phone] Care Team Providers Care Hydrology Professor Name Role Phone Loli NORWOOD MD, Roman Barraza Primary Care Provider [phone] Reason for Visit * Reason Comments eRx-Medication Refill Encounter Details Date Type Department Care Team (Late st Contact Info) Description 03/21/2023 Refill Family Practice [facility] [place] [address] [facility] [place] [address] Roman Ennis III, MD [address] [facility] [place] [address] Chronic pain syndrome Allergies Active Allergy Reactions Criticality Noted Date Comments Isosorbide Mononitrate 12/24/2007 Severe headaches Nsaids 05/29/2002 Tramadol Hcl Nausea/vomiting Low 01/09/2008 UGI distress documented as of this encounter (statuses as of 03/22/2023) Medications Medication Sig Dispensed Refills Start Date [...] as of this encounter (statuses as of 03/22/2023) Active Problems Problem Noted Date Diagnosed Date [...] /min) 05/11/2018 Coronary artery disease invo lving ione coronary artery of ione heart without angina pectoris 05/08/2018 Anxiety state [...] Overview: Modified by Acute [place] Protocol #5. [facility] right coronary bare metal stents S/P angioplasty with stent 09/07/2006 History of tobacco use documented as of this encounter (statuses as of 03/22/2023) Resolved Problems Problem Noted Date Diagnosed Date [...] for Patients with Cardiovascular Disease Project #: [id number] PI: Peyton Conn MD [phone] GENOMICS CARDIO RESEARCH OTHER*[id number] 01/15/2007 06/28/2016 Overview: Renamed Per Clinical Trials Billing Project. Study Title: Genomic Markers for Patients with Cardiovascular Disease Project #: [id number] PI: Peyton Conn MD [phone] LV (left ventricular) mural thrombus 10/30/2006 12/28/2017 Tobacco use disorder 09/07/2006 010 Acute inferior myocardial infarction 08/19/2006 12/11/2008 Overview: Modified by Acute [place] Protocol #5. [facility] right coronary bare metal stents EXAMINATION OF PARTICIPANT I N CLINICAL TRIAL - HORIZONS 08/19/2006 09/04/2009 Overview: Renamed Per Clinical Trials Billing Project. [facility] AMI clinical trial 263 Single blind trial comparing heparin and IIB/IIIA with bivalirudin, and Taxus vs bare metal stent. Patient Follow-up for 5 years Surgical Supervisor: Trent Verduzco [phone] [facility] Clinical Trial*[id number] 08/19/2006 09/08/2014 Overview: Renamed Per Clinical Trials Billing Project. [facility] AMI clinical trial 263 Single blind trial comparing heparin and IIB/IIIA with bivalirudin, and Taxus vs bare metal stent. Patient Follow-up for 5 years Surgical Supervisor: Trent Verduzco [phone] [facility] 08/29/2002 02/23/2017 LOC PRIM [id number] 05/29/200206/23 Dyslipidemia, goal to be determined 05/29/2002 05/07/2009 Overview: Per Lipid Taxonomy. 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 02/23/2017 documented as of this encounter (statuses as of 03/22/2023) Immunizations Name Administration Dates Next Due COVID-19 [...] encounter Miscellaneous Notes * Telephone Encounter - Emily Scanlon RPh - 03/22/2023 9:49 AM EDTRefused Prescriptions: Disp Refills oxyCODONE HCl 5 MG Oral Tablet (Oxy IR) 100 Ta*0 Sig: Take 1 Tablet by mouth every 6 hours as needed (pain).Refused By: Maria Victoria SCANLONon for Refusal: Duplicate Re quest documented in this encounter Plan of Treatment Upcoming Encounters Date Type Department Care Team (Late st Contact Info) Description 03/24/2023 8:30 AM EDT Home Visit [facility] [address] [place] [address] Areli Washburn, RN [address] [place] [address] 03/31/2023 1:15 PM EST Cardiac Studies Cardiology, [facility] [address] [address] [address] [facility] [address] [place] [address] 04/04/2023 2:00 PM EST Office Visit Neurology [facility] [address] [facility] [place] [address] Ashlie Swift MD [address] [place] [address] 04/18/2023 2:00 PM EST Office Visit Pharmacy, [facility] [address] [facility] [place] [address] [facility] 132 [facility] [place] [address] 06/29/2023 8:30 AM EST Office Visit Cardiology, [facility] [address] [place] [address] Nikole Crenshaw, YOGESH [address] [place] [address] Health Maintenance Due Date Last Done Comments [...] 023, 02/21/2022, 07/23/2019 CKD PHOS USE SMARTSET 39107 03/02/202402/19, 10/07/2022, 02/21/2022, Additional history exists O2 ASSESSMENT COMPLETED IN PAST YEAR FOR COPD 03/10/2024 03/10/2023 CKD HGB USE SMARTSET 75492 03/15/202403/15, 03/02/2023, 03/02/2023, Additional history exists DTaP,Tdap,and [...] the patient have Health Care Power of Cloth Tester Quality? No Healthcare Agents on File Name Relationship Healthcare Agent Relationshi p Communication Lacy Tong Adult Child Health Care Repr esentative (appointed verbally by patient or by statute hierarchy) Care Teams Hydrology Professor Relationship Specialty Start Date End Date Roman Ennis III, MD [address] [place] [address] PCP - General Family Medicine 06/28/18 documented as of this encounter
--- OUTSIDE RECORDS SUMMARY | 2023-06-29 05:31 | External Medical Summary | Summary of Care ---
Author Name Unknown Organization [facility] Address [address] [place] [address] Phone [phone] Care Team Providers Care Shot Lighter Name Role Phone Loli NORWOOD MD, Marilyn Barraza Primary Care Provider [phone] Reason for Referral * Medication Prior Authorization - Closed Specialty Diagnoses / Procedures Referred By Xuan bey Referred To Contact Diagnoses Chronic pain syndrome Marilyn Nogueira III, MD [address] [place] [address] Referral ID Status Reason Start Date Expiration Date Visits Re quested Visits Authorized [id number] Closed 999 999 Reason for Visit * Reason Onset Date Comments Medication Refill 03/20/2023 Encounter Details Date Type Department Care Team (Late st Contact Info) Description 03/20/2023 Refill Family [facility] [address] [place] [address] Marilyn Nogueira III, MD [address] [place] [address] Chronic pain syndrome Allergies Active Allergy Reactions [...] oxyCODONE HCl 5 MG Oral Tablet (Oxy IR)Indications: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 100 Tablet 0 03/22/2023 Active oxyCODONE HCl 5 MG Oral Tablet (Oxy IR)Indications: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 100 Tablet 0 02/26/2023 03/20/20 23 Discontinu ed(Refill) documented as of this [...] MYOCARDIAL INFARCT 12/11/2008 Overview: Modified by Acute [place] Protocol #5. [facility] right coronary bare metal stents [...] for Patients with Cardiovascular Disease Project #: [id number] PI: Peyton Conn MD [phone] GENOMICS CARDIO RESEARCH OTHER*[id number] 01/15/2007 06/28/2016 Overview: Renamed Per Clinical Trials Billing Project. Study Title: Genomic Markers for Patients with Cardiovascular Disease Project #: [id number] PI: Peyton Conn MD [phone] LV (left ventricular) mural thrombus 10/30/2006 12/28/2017 Tobacco use disorder 09/07/2006 010 Acute inferior myocardial infarction 08/19/2006 12/11/2008 Overview: Modified by Acute [place] Protocol #5. [facility] right coronary bare metal stents EXAMINATION OF PARTICIPANT I N CLINICAL TRIAL - HORIZONS 08/19/2006 09/04/2009 Overview: Renamed Per Clinical Trials Billing Project. [employer] AMI clinical trial 2004- 0264 Single blind trial comparing heparin and IIB/IIIA with bivalirudin, and Taxus vs bare metal stent. Patient Follow-up for 5 years Home Extension Agent: Trent Steeleenship [phone] [facility] Clinical Trial*[id number] 08/19/2006 09/08/2014 Overview: Renamed Per Clinical Trials Billing Project. [facility] AMI clinical trial 263 Single blind trial comparing heparin and IIB/IIIA with bivalirudin, and Taxus vs bare metal stent. Patient Follow-up for 5 years Home Extension Agent: Trent Verduzco [phone] Menopause 08/29/2002 02/23/2017 LOC PRIM [id number] 05/29/200206/23 Dyslipidemia, goal to be determined 05/29/2002 [...] Encounter - Marilyn Nogueira III, MD - 03/22/2023 10:17 AM EDTSigned Prescriptions: Disp Refills oxyCODONE HCl 5 MG Oral Tablet (Oxy IR) 100 Ta*0 Sig: Take 1 Tablet by mouth every 6 hours as needed (pain).Authorizing Provider: MARILYN NOGUEIRA III * Telephone Encounter - Laurie Ralph [facility] - 03/21/2023 5:34 AM EDT Pending Prescriptions: Disp Refills oxyCODONE HCl 5 MG Oral Tablet (Oxy IR) 100 Ta*0 Sig: Take 1 Tablet by mouth every 6 hours as needed (pain). * Telephone Encounter - Laurie Ralph RP - 03/21/2023 5:34 AM EDT I have reviewed the patients controlled substance dispensing history in the Prescription Drug Monitoring Program in compliance with the [facility] regulations before prescribing a controlled substance. PDMP checked on 03/21/2023. Pending Prescriptions: Disp Refills oxyCODONE HCl 5 MG Oral Tablet (Oxy IR) 100 Ta*0 Sig: Take 1 Tablet by mouth every 6 hours as needed (pain). Last Visit: 02/27/2023 (in office), 08/24/2020 (telemedicine) Next Visit: Visit date not found Date medication was last filled: 02/26 Date medication is due for refill: 05/23 Pharmacy: [facility], [address] [place] Is this request for [...] Please approve if appropriate. Thank you, Laurie Ralph PharmD. Clinical Pharmacist Centralized Clinical Pharmacy Services (CCPS) (formerly Telepharmacy) 03/21/2023, 5:34 AM * Telephone Encounter - Pamela Ferrari, grape picker - 03/20/2023 8:32 AM EDT Did you pend patient's preferred pharmacy and medication before forwarding?yes Pharmacy: [facility], [address] [place] Pending Prescriptions: Disp Refills [...] appointment Last date the medication was ordered: 02/26/2023 Is this request for a controlled substance?Take 1 Tablet by mouth every 6 hours as needed (pain). Urine Drug Screen: Results for orders placed [...] Description 03/24/2023 8:30 AM EDT Home Visit [facility] [address] [place] [address] [address] Areli Washburn, RN [address] [place] [address] 03/31/2023 1:15 PM EST Cardiac Studies Cardiology, [facility] [address] [address] [address] [facility] [address] [place] [address] 04/04/2023 2:00 PM EST Office Visit [facility]rology [facility] [address] [place], [place] [address] Ashlie Swift MD 200 [facility] [place] [address] 04/18/2023 2:00 PM EST Office Visit [facility], [facility] [place] [address] [facility] 132 [facility] [place] [address] 06/29/2023 8:30 AM EST Office Visit Cardiology, [facility] 132 [facility] [place] [address] Nikole Crenshaw, YOGESH [facility] [place] [address] Health Maintenance Due Date Last Done Comments [...] 023, 02/21/2022, 07/23/2019 CKD PHOS USE SMARTSET 67767 03/02/202402/19, 10/07/2022, 02/21/2022, Additional history exists O2 ASSESSMENT COMPLETED IN PAST YEAR FOR COPD 03/10/2024 03/10/2023 CKD HGB USE SMARTSET 73807 03/15/202403/15, 03/02/2023, 03/02/2023, Additional history exists DTaP,Tdap,and [...] the patient have Health Care Power of Packaging Mechanic? No Healthcare Agents on File Name Relationship Healthcare Agent Relationshi p Communication Lacy Boycery Adult Child Health Care Repr esentative (appointed verbally by patient or by statute hierarchy) Care Teams Shot Lighter Relationship Specialty Start Date End Date Marilyn Nogueira III, MD [address] [place] [address] PCP - General Family Medicine 06/28/18 documented as of this encounter
--- OUTSIDE RECORDS SUMMARY | 2023-06-29 05:31 | External Medical Summary | Summary of Care ---
Author Name Unknown Organization [facility] Address [address] [facility] [address] Phone [phone] Care Team Providers Care Pantograph Operator Name Role Phone Loli NORWOOD MD, Roman Barraza Primary Care Provider [phone] Reason for Visit * Reason Onset Date Comments Test Results 03/23/2023 Encounter Details Date Type Department Care Team (Late st Contact Info) Description 03/23/2023 Telephone Cardiology, [facility] [address] [place] [address] Nikole Crenshaw PA-C [address] [place] [phone] Test Results Allergies Active Allergy Reactions Criticality Noted Date Comments Isosorbide Mononitrate 12/24/2007 Severe headaches Nsaids 05/29/2002 Tramadol Hcl Nausea/vomiting Low 01/09/2008 UGI distress documented as of this encounter (statuses as of 03/23/2023) Medications Medication Sig Dispensed Refills Start Date [...] oxyCODONE HCl 5 MG Oral Tablet (Oxy IR)Indications: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 100 Tablet 0 03/22/2023 Active Furosemide 40 MG Oral Tablet (Lasix) Take 1 Tablet by mouth daily AND 0.5 Tablets daily at noon. 135 Tablet 3 03/23/2023 Active Furosemide 40 MG Oral Tablet (Lasix) Take 1 Tablet by mouth in the morning. 30 Tablet 11 03/09/2023 03/23/20 23 Discontinu ed(Refill) documented as of this encounter (statuses as of 03/23/2023) Active Problems Problem Noted Date Diagnosed Date [...] /min) 05/11/2018 Coronary artery disease invo lving [place] coronary artery of [place] heart without angina pectoris 05/08/2018 Anxiety state [...] MYOCARDIAL INFARCT 12/11/2008 Overview: Modified by Acute [place] Protocol #5. [facility] right coronary bare metal stents S/P angioplasty with stent 09/07/2006 History of tobacco use documented as of this encounter (statuses as of 03/23/2023) Resolved Problems Problem Noted Date Diagnosed Date [...] for Patients with Cardiovascular Disease Project #: [id number] PI: Peyton Conn MD [phone] GENOMICS CARDIO RESEARCH OTHER*[id number] 01/15/2007 06/28/2016 Overview: Renamed Per Clinical Trials Billing Project. Study Title: Genomic Markers for Patients with Cardiovascular Disease Project #: [id number] PI: Peyton Conn MD [phone] LV (left ventricular) mural thrombus 10/30/2006 12/28/2017 Tobacco use disorder 09/07/2006 010 Acute inferior myocardial infarction 08/19/2006 12/11/2008 Overview: Modified by Acute [place] Protocol #5. [facility] right coronary bare metal stents EXAMINATION OF PARTICIPANT I N CLINICAL TRIAL - HORIZONS 08/19/2006 09/04/2009 Overview: Renamed Per Clinical Trials Billing Project. [facility] AMI clinical trial 263 Single blind trial comparing heparin and IIB/IIIA with bivalirudin, and Taxus vs bare metal stent. Patient Follow-up for 5 years News Technical Director: Tretn Verduzco [phone] [facility] Clinical Trial*[id number] 08/19/2006 09/08/2014 Overview: Renamed Per Clinical Trials Billing Project. [facility] AMI clinical trial 263 Single blind trial comparing heparin and IIB/IIIA with bivalirudin, and Taxus vs bare metal stent. Patient Follow-up for 5 years News Technical Director: Trent Steeleenship [phone] Menopause 08/29/2002 02/23/2017 LOC PRIM [id number] 05/29/200206/23 Dyslipidemia, goal to be determined 05/29/2002 05/07/2009 Overview: Per Lipid Taxonomy. 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 Orders signed as requested. * Telephone Encounter - Sixto Melissa LPN - 03/23/2023 11:05 AM EDT Called patient and spoke to Nadiya who verbalized understanding. Lab ordered. Medication pended. ----- Message from Nikole Crenshaw PA-C sent at 03/16/2023 4:29 PM EDT ----- Renal function continues to improve. Back to baseline. Good news. Potassium remains high. Remain off potassium supplements. Low potassium diet encouraged. No salt substitutes. Given issues with LE edema/weight gain, recommend increasing furosemide to 40 mg - 1 tablet in the morning and an additional 20 mg (1/2 tab) in the afternoon (about 4-6 hours apart. Keep track of daily weight. Repeat BMP in 1-2 weeks with change in diuretics documented in this encounter Plan of Treatment Upcoming Encounters Date Type Department Care Team (Late st Contact Info) Description 03/24/2023 8:30 AM EDT [facility] Visit [facility] [address] [place] [address] Areli Washburn, RN [address] [place] [address] 03/31/2023 1:15 PM EST Cardiac Studies Cardiology, [facility] 132 [facility] [place] [address] [facility] [address] [place] [address] 04/04/2023 2:00 PM EST Office Visit Neurology [facility] [address] [place] [address] Ashlie Swift MD 200 [place] [address] 04/18/2023 2:00 PM EST Office Visit Pharmacy, [facility] [address] [place] [address] [facility] 132 [facility] [place] [address] 06/29/2023 8:30 AM EST Office Visit Cardiology, [facility] [address] [facility] [place] [address] Nikole Crenshaw PA-C [address] [place] [address] Scheduled Orders Name Type Priority Associated Diagnoses Orde r Schedule BASIC METABOLIC PANEL Lab Routine Encounter for monitoring diuretic therapy Expected: 03/30/2023 (Approximate), Expires: 03/23/2024 Health Maintenance Due Date Last Done Comments DISCUSS TOBACCO CESSATION (REFER TO SMARTSET #3297) 1945 Alpha-1 Antitrypsin 1965 Diabetic Eye Exam 1965 Diabetic Foot Exam 1965 DXA Scan 09/04/2016 09/04/2013, 09/04/2013 *ADVANCE DIRECTIVE NOT ON FILE 06/09/2019 COVID-19 Vaccine ( season) 2023 11/12/2020, 10/01/2020 Depression Screening 06/02/2023 06/02/2022 HbA1c 09/01/2023 03/02/2023, 12/21, 08/19/2006, Additional history exists GFR 09/14/2023 03/15/2023, 02/20, 03/02/2023, Additional history exists Albumin/Creatinine Ratio 03/02/2024 023, 02/21/2022, 07/23/2019 CKD PHOS USE SMARTSET 90267 03/02/202402/19, 10/07/2022, 02/21/2022, Additional history exists O2 ASSESSMENT COMPLETED IN PAST YEAR FOR COPD 03/10/2024 03/10/2023 CKD HGB USE SMARTSET 73508 03/15/202403/15, 03/02/2023, 03/02/2023, Additional history exists DTaP,Tdap,and [...] Visit Diagnoses Diagnosis Encounter for monitoring diuretic therapy- Primary Encounter for therapeutic drug monitoring documented in [...] the patient have Health Care Power of Rougher Merchant Mill? No Healthcare Agents on File Name Relationship Healthcare Agent Relationshi p Communication Lacy Tong Adult Child Health Care Repr esentative (appointed verbally by patient or by statute hierarchy) Care Teams Pantograph Operator Relationship Specialty Start Date End Date Roman Ennis III, MD [address] [place] [address] PCP - General Family Medicine 06/28/18 documented as of this encounter
--- OUTSIDE RECORDS SUMMARY | 2023-06-29 05:32 | External Medical Summary ---
Author Name Unknown Address Unknown Organization K01:[facility] [address] [place] [address] Laboratory Report Ordering Provider Test Date Status NAE BEY 03/13/2023 12:10:36 Final Observation Date Value Abnormality Reference (Units ) Status Magnesium 03/13/2023 12:10:36 2.4 1.5-2.6 (m g/dL) Final Performing Location [facility] - [address] [place] [address]
--- OUTSIDE RECORDS SUMMARY | 2023-06-29 05:32 | External Medical Summary ---
Author Name Unknown Address Unknown Organization K01:[facility] [address] [place] [address] Laboratory Report Ordering Provider Test Date Status LYDIA LEVIN 03/15/2023 07:38:00 Final Observation Date Value Abnormality Reference (Units ) Status BUN 03/15/2023 07:38:00 30 Above high normal 6-20 (mg/dL) Final Creatinine 03/15/2023 07:38:00 1.1 Above high normal 0.5-1.0 (mg/dL) Final Glomerular filtration rate/1.73 sq M.predicted [Volume Rate/Area] in Serum, Plasma or Blood by Creatinine-based formula (CKD-EPI) 03/15/2023 07:38:00 54 Below low normal >=60 (mL/min) Final eGFR is calculated based on the CKD-EPI 2020 equation SODIUM 03/15/2023 07:38:00 140 135-146 (m mol/L) Final Potassium 03/15/2023 07:38:00 5.1 3.5-5.1 (m mol/L) Final Cl 03/15/2023 07:38:00 106 98-107 (mm ol/L) Final CO2 03/15/2023 07:38:00 24 22-32 (mmo l/L) Final Anion gap 03/15/2023 07:38:00 10 7-15 (mmol /L) Final Glucose 03/15/2023 07:38:00 152 Above high normal 70 -120 (mg/dL) Final Calcium 03/15/2023 07:38:00 8.5 8.4-10.2 ( mg/dL) Final Performing Location [facility] [address] [place] [address]
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
--- OUTSIDE RECORDS SUMMARY | 2023-06-29 05:32 | External Medical Summary | Summary of Care ---
Author Name Unknown Organization [facility] Address [address] [place] [address] Phone [phone] Care Team Providers Care Auto Claim Representative Name Role Phone Loli NORWOOD MD, Roman Barraza Primary Care Provider [phone] Reason for Visit * Reason Comments EEG Encounter Details Date Type Department Care Team (Late st Contact Info) Description 03/07/2023 2:00 PM EDT NeuroDiagnostic Study Neurophysiology [facility] [address] [facility] [place] [address] Sp, Neurophys Tech [address] [place] [address] Allergies Active Allergy Reactions Criticality Noted Date Comments Isosorbide Mononitrate 12/24/2007 Severe headaches Nsaids 05/29/2002 Tramadol Hcl Nausea/vomiting Low 01/09/2008 UGI distress documented as of this encounter (statuses as of 03/15/2023) Medications Medication Sig Dispensed Refills Start Date [...] Additional Information Patient not taking.Reported on 03/13/2023 documented as of this encounter (statuses as of 03/15/2023) Active Problems Problem Noted Date Diagnosed Date Atrial fibrillation 02/27/2023 Atrial fibrillation 02/27/2023 Atrial fibrillation 02/27/2023 Other disorders of phosphorus [...] /min) 05/11/2018 Coronary artery disease invo lving [place] coronary artery of [place] heart without angina pectoris 05/08/2018 Anxiety state [...] Overview: Modified by Acute [place] Protocol #5. [facility] right coronary bare metal stents S/P angioplasty with stent 09/07/2006 History of tobacco use documented as of this encounter (statuses as of 03/15/2023) Resolved Problems Problem Noted Date Diagnosed Date Resolved Date Migraine 10/14/2022 10/14/2022 Acute inferior myocardial infarction [...] for Patients with Cardiovascular Disease Project #: [id number] PI: Peyton Conn MD [phone] GENOMICS CARDIO RESEARCH OTHER*[id number] 01/15/2007 06/28/2016 Overview: Renamed Per Clinical Trials Billing Project. Study Title: Genomic Markers for Patients with Cardiovascular Disease Project #: [id number] PI: Peyton Conn MD [phone] LV (left ventricular) mural thrombus 10/30/2006 12/28/2017 Tobacco use disorder 09/07/2006 010 Acute inferior myocardial infarction 08/19/2006 12/11/2008 Overview: Modified by Acute [place] Protocol #5. [facility] right coronary bare metal stents EXAMINATION OF PARTICIPANT I N CLINICAL TRIAL - [place] 08/19/2006 09/04/2009 Overview: Renamed Per Clinical Trials Billing Project. [facility] AMI clinical trial 263 Single blind trial comparing heparin and IIB/IIIA with bivalirudin, and Taxus vs bare metal stent. Patient Follow-up for 5 years Program Officer: Trent Verduzco [phone] [facility] Clinical Trial*[id number] 08/19/2006 09/08/2014 Overview: Renamed Per Clinical Trials Billing Project. [facility] AMI clinical trial 2004- 2794 Single blind trial comparing heparin and IIB/IIIA with bivalirudin, and Taxus vs bare metal stent. Patient Follow-up for 5 years Program Officer: Trent GeovannySarah Verduzco [phone] Menopause 08/29/2002 02/23/2017 LOC PRIM [id number] 05/29/200206/23 Dyslipidemia, goal to be determined 05/29/2002 05/07/2009 Overview: Per Lipid Taxonomy. 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 02/23/2017 documented as of this encounter (statuses as of 03/15/2023) Immunizations Name Administration Dates Next Due COVID-19 [...] as of this encounter Progress Notes * Hernando Ha DO - 03/15/2023 6:26 AM EDT ROUTINE EEG REPORT Name: Radha Tong Date of study: 03/07/23 Age: [age] year old Outpatient Referring Physician: Xuan Xie DO TECHNICAL REMARKS: This is a technically satisfactory eighteen channel record employing 21 disc electrodes applied according to a measured international 10-20 electrode placement system. There were no significant technical difficulties. CLINICAL INFORMATION: A 77 year old female with convulsions. EEG performed for evaluation of epileptiform activity. MEDICATIONS: Current Outpatient Medications Medication Sig Dispense Refill [...] No current facility-administered medications for this visit. REPORT: At the onset of the EEG, the patient is awake. The background activity consist of 6-7 Hz, persistent, posteriorly dominant, moderate amplitude, symmetric and rhythmic activity that is reactive to eye opening. Anteriorly, it consist of a mixture of low voltage indeterminate activity and 15-25 Hz, persistent, low amplitude, symmetric and rhythmic activity. Stepwise intermittent photic stimulation (1-21 Hz) does not induce any abnormalities. IMPRESSION: This is an abnormal awake routine EEG due to mild generalized background slowing suggestive of a mild non specific encephalopathy. No epileptiform activity is seen. Hernando Ha DO documented in this encounter Plan of Treatment Upcoming Encounters Date Type Department Care Team (Late st Contact Info) Description 03/15/2023 9:20 AM EDT Laboratory Lab Mobile Phlebotomy [facility] [address] [place] [address] [facility] Mobile Home Draw [address] [place] [address] Benign hypertension with CKD (chronic kidney disease) stage III (HCC) 03/20/2023 10:30 AM EDT Telemedicine [facility], [facility] [address] [facility] [place] [address] Timoteo Duggan PA-C [address] [facility] [place] [address] [facility] [address] [place] [address] [place] [address] 03/24/2023 8:30 AM EDT Home Visit [facility], [facility] [address] [place] [address] Areli Washburn, RN [address] [facility] [place] [address] 03/31/2023 1:15 PM EST Cardiac Studies Cardiology, [facility] [address] [facility] [place] [address] [facility] [address] [place] [address] 04/19/2023 9:30 AM EST Office Visit Pharmacy, [facility] [address] [address] [facility] [address] [place] [address] 06/29/2023 8:30 AM EST Office Visit Cardiology, [facility] [address] [place] [address] Nikole Crenshaw PA-C [address] [place] [address] Health Maintenance Due Date Last Done Comments DISCUSS TOBACCO CESSATION (REFER TO SMARTSET #[id number]) 1945 Alpha-1 Antitrypsin 1965 DIABETES-EYE EXAM 1965 Diabetic Foot Exam 1965 DXA Scan 09/04/2016 09/04/2013, 09/04/2013 *ADVANCE DIRECTIVE NOT ON FILE 06/09/2019 COVID-19 Vaccine ( season) 2023 11/12/2020, 10/01/2020 Depression Screening 06/02/2023 06/02/2022 HbA1c 09/01/2023 03/02/2023, 12/21, 08/19/2006, Additional history exists GFR 09/12/2023 03/13/2023, 02/19, 10/07/2022, Additional history exists Albumin/Creatinine Ratio 03/02/2024 023, 02/21/2022, 07/23/2019 CKD HGB USE SMARTSET [id number] 03/02/202403/02, 03/02/2023, 10/07/2022, Additional history exists CKD PHOS USE SMARTSET [id number] 03/02/202402/19, 10/07/2022, 02/21/2022, Additional history exists O2 ASSESSMENT COMPLETED IN PAST YEAR FOR COPD 03/10/2024 03/10/2023 DTaP,Tdap,and Td Vaccines (4 - Td or [...] as of this encounter Visit Diagnoses Diagnosis Convulsions, unspecified convulsion type (HCC) [R56.9]- Primary Syncope and collapse [R55] Syncope and collapse Benign hypertension with CKD (chronic kidney disease) stage III (HCC) Benign hypertensive kidney disease with chronic kidney disease stage I through stage IV, or unspecified documented in this encounter Advance Directives [...] patient have Health Care Power of Manager Country? No Healthcare Agents on File Name Relationship Healthcare Agent Relationshi p Communication Lacy Tong Adult Child Health Care Repr esentative (appointed verbally by patient or by statute hierarchy) Care Teams Auto Claim Representative Relationship Specialty Start Date End Date Roman Ennis III, MD [address] [place] [address] PCP - General Family Medicine 06/28/18 documented as of this encounter
--- OUTSIDE RECORDS SUMMARY | 2023-06-29 05:32 | External Medical Summary ---
Author Name Unknown Address Unknown Organization K01:[facility] [place] [facility] [address] [place] [address] Laboratory Report Ordering Provider Test Date Status LYDIA LEVIN 03/15/2023 07:38:00 Final Observation Date Value Abnormality Reference (Units ) Status WBC, Total 03/15/2023 07:38:00 5.21 4.00-10.80 (K/uL) Final RBC 03/15/2023 07:38:00 3.04 3.85-5.15 (M/uL) Final Hemoglobin 03/15/2023 07:38:00 8.4 Below low normal 12.0-15.3 (g/dL) Final HCT 03/15/2023 07:38:00 31.6 Below low normal 36.0-45.2 (%) Final MCV 03/15/2023 07:38:00 103.9 81.5-97.5 (fL) Final MCH 03/15/2023 07:38:00 27.6 27.0-34.0 (pg) Final MCHC 03/15/2023 07:38:00 26.6 32.0-36.0 (g/dL) Final RDW 03/15/2023 07:38:00 16.5 11.5-15.5 (%) Final Platelets 03/15/2023 07:38:00 209 140-400 (K/uL) Final MPV 03/15/2023 07:38:00 11.5 6.6-11.1 (fL) Final Nucleated erythrocytes/100 leukocytes [Ratio] in Blood by Automated count 03/15/2023 07:38:00 0 <=0 (/100 WBCs) Final Performing Location [facility] [place] [address] [place] [address]
--- OUTSIDE RECORDS SUMMARY | 2023-06-29 05:32 | External Medical Summary | Summary of Care ---
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; Essential hypertension with goal blood pressure less than 140/90; Biventricular implantable cardioverter-defibrill ator in situ; Paroxysmal atrial fibrillation (HCC) Allergies Active Allergy Reactions Criticality Noted Date Comments Isosorbide Mononitrate 12/24/2007 Severe headaches Nsaids 05/29/2002 Tramadol Hcl Nausea/vomiting Low 01/09/2008 UGI distress documented as of this encounter (statuses as of 03/13/2023) Medications Medication Sig Dispensed Refills Start Date [...] as of this encounter (statuses as of 03/13/2023) Active Problems Problem Noted Date Diagnosed Date [...] Trigger ring finger of left hand 12/27/2019 HTN, goal to be determined 07/23/2019 COPD, group C, by GOLD 2017 [...] Overview: Modified by Acute [place] Protocol #5. [facility] right coronary bare metal stents S/P angioplasty with stent 09/07/2006 History of tobacco use documented as of this encounter (statuses as of 03/13/2023) Resolved Problems Problem Noted Date Diagnosed Date [...] for Patients with Cardiovascular Disease Project #: [id number] PI: Peyton Conn MD [phone] GENOMICS CARDIO RESEARCH OTHER*[id number] 01/15/2007 06/28/2016 Overview: Renamed Per Clinical Trials Billing Project. Study Title: Genomic Markers for Patients with Cardiovascular Disease Project #: [id number] PI: Peyton Conn MD [phone] LV (left ventricular) mural thrombus 10/30/2006 12/28/2017 Tobacco use disorder 09/07/2006 010 Acute inferior myocardial infarction 08/19/2006 12/11/2008 Overview: Modified by Acute [place] Protocol #5. [facility] right coronary bare metal stents EXAMINATION OF PARTICIPANT I N CLINICAL TRIAL - HORIZONS 08/19/2006 09/04/2009 Overview: Renamed Per Clinical Trials Billing Project. [facility] AMI clinical trial 263 Single blind trial comparing heparin and IIB/IIIA with bivalirudin, and Taxus vs bare metal stent. Patient Follow-up for 5 years First Line Supervisor: Trent Verduzco [phone] [facility] Clinical Trial*[id number] 08/19/2006 09/08/2014 Overview: Renamed Per Clinical Trials Billing Project. [facility] AMI clinical trial 263 Single blind trial comparing heparin and IIB/IIIA with bivalirudin, and Taxus vs bare metal stent. Patient Follow-up for 5 years First Line Supervisor: Trent Verduzco [phone] [facility] 08/29/2002 02/23/2017 LOC PRIM [id number] 05/29/200206/23 Dyslipidemia, goal to be determined 05/29/2002 05/07/2009 Overview: Per Lipid Taxonomy. 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 02/23/2017 documented as of this encounter (statuses as of 03/13/2023) Immunizations Name Administration Dates Next Due COVID-19 [...] 9:20 AM EDT Laboratory Lab Mobile Phlebotomy [facility] [address] [place] [address] [facility], [facility] Mobile Home Draw [address] [place] [address] 03/20/2023 10:30 AM EDT Telemedicine [facility], [facility] [address] [facility] [place] [address] Timoteo Duggan PA-C [address] [facility] [address] Cortney Benoit, [facility]ist Mobile Coordinator [address] [place] [address] [place] [address] 03/24/2023 8:30 AM EDT Home Visit [facility], [facility] [address] [address] Areli Washburn, RN [address] [place] [address] 03/31/2023 1:15 PM EST Cardiac Studies Cardiology, [facility] [address] [place] [address] [facility] [address] [place], [place] [address] 04/19/2023 9:30 AM EST Office Visit Pharmacy, [facility] [place] [address] [facility] [address] [place], [place] [address] 06/29/2023 8:30 AM EST Office Visit Cardiology, [facility] [address] [place] [address] Nikole Crenshaw PA-C [address] [place] [address] Pending Results Name Type Priority Associated Diagnoses Date /Time MAGNESIUM Lab Routine Hyperkalemia Dyslipidemia, goal LDL below 70 Coronary artery disease involving [place] coronary artery of little river heart without angina pectoris Essential hypertension with goal blood pressure less than 140/90 Biventricular implantable cardioverter-defibrillator in situ Paroxysmal atrial fibrillation (HCC) 03/13/2023 12:10 PM EDT BASIC METABOLIC PANEL Lab Routine Hyperkalemia Dyslipidemia, goal LDL below 70 Coronary artery disease involving [place] coronary artery of [place] river heart without angina pectoris Essential hypertension with goal blood pressure less than 140/90 Biventricular implantable cardioverter-defibrillator in situ Paroxysmal atrial fibrillation (HCC) 03/13/2023 12:10 PM EDT Health Maintenance Due Date Last Done Comments DISCUSS TOBACCO CESSATION (REFER TO SMARTSET #7841) 1945 Alpha-1 Antitrypsin 1965 DIABETES-EYE EXAM 1965 Diabetic Foot Exam 1965 DXA Scan 09/04/2016 09/04/2013, 09/04/2013 *ADVANCE DIRECTIVE NOT ON FILE 06/09/2019 COVID-19 Vaccine ( season) 2023 11/12/2020, 10/01/2020 Depression Screening 06/02/2023 06/02/2022 GFR 09/01/2023 03/02/2023, 09/19, 02/21/2022, Additional history exists HbA1c 09/01/2023 03/02/2023, 12/21, 08/19/2006, Additional history exists Albumin/Creatinine Ratio 03/02/2024 023, 02/21/2022, 07/23/2019 CKD HGB USE SMARTSET 91676 03/02/202403/02, 03/02/2023, 10/07/2022, Additional history exists CKD PHOS USE SMARTSET 06206 03/02/202402/19, 10/07/2022, 02/21/2022, Additional history exists O2 [...] as of this encounter Visit Diagnoses Diagnosis Hyperkalemia Hyperpotassemia Dyslipidemia, goal LDL below 70 Other and unspecified hyperlipidemia Coronary artery disease involving little river coronary artery of little river heart without angina pectoris Essential hypertension with goal blood pressure less than 140/90 Biventricular implantable cardioverter-defibrillator in situ Paroxysmal atrial fibrillation (HCC) Atrial fibrillation documented in this encounter Advance Directives Latest [...] the patient have Health Care Power of Credit Review Analyst? No Healthcare Agents on File Name Relationship Healthcare Agent Relationshi p Communication Lacy Tong Adult Child Health Care Repr esentative (appointed verbally by patient or by statute hierarchy) Care Teams Rehabilitation Technician Relationship Specialty Start Date End Date Roman Ennis III, MD [address] [facility] [place] [address] PCP - General Family Medicine 06/28/18 documented as of this encounter
--- OUTSIDE RECORDS SUMMARY | 2023-06-29 05:32 | External Medical Summary ---
Author Name Unknown Address Unknown Organization K01:[facility] [place] [facility] [address] [facility] [address] [place] [address] Laboratory Report Ordering Provider Test Date Status ANE BEY 03/13/2023 12:10:36 Final Observation Date Value Abnormality Reference (Units ) Status BUN 03/13/2023 12:10:36 27 Above high normal 6-20 (mg/dL) Final Creatinine 03/13/2023 12:10:36 1.0 0.5-1.0 (mg/dL) Final Glomerular filtration rate/1.73 sq M.predicted [Volume Rate/Area] in Serum, Plasma or Blood by Creatinine-based formula (CKD-EPI) 03/13/2023 12:10:36 60 >=60 (mL/min) Final eGFR is calculated based on the CKD-EPI 2020 equation SODIUM 03/13/2023 12:10:36 142 135-146 (m mol/L) Final Potassium 03/13/2023 12:10:36 5.4 Above high normal 3. 5-5.1 (mmol/L) Final Cl 03/13/2023 12:10:36 108 Above high normal 98 -107 (mmol/L) Final CO2 03/13/2023 12:10:36 25 22-32 (mmo l/L) Final Anion gap 03/13/2023 12:10:36 9 7-15 (mmol /L) Final Glucose 03/13/2023 12:10:36 93 70-120 (mg /dL) Final Calcium 03/13/2023 12:10:36 8.9 8.4-10.2 ( mg/dL) Final Performing Location [facility] [place] [facility] [address] [facility] [address] [place] [address]
--- OUTSIDE RECORDS SUMMARY | 2023-06-29 05:32 | External Medical Summary | Summary of Care ---
Author Name Unknown Organization [facility] Address [address] [place] [address] Phone [phone] Care Team Providers Care Vehicle Return Associate Name Role Phone Loli NORWOOD MD, Roman Barraza Primary Care Provider [phone] Encounter Details Date Type Department Care Team (Late st Contact Info) Description 01/12/2023 Result Scan Unspecified Department <No scans attached> Allergies Active Allergy Reactions Criticality Noted Date Comments Isosorbide Mononitrate 12/24/2007 Severe headaches Nsaids 05/29/2002 Tramadol Hcl Nausea/vomiting Low 01/09/2008 UGI distress documented as of this encounter (statuses as of 03/14/2023) Medications Medication Sig Dispensed Refills Start Date End Date Status Anoro Ellipta 62.5-25 MCG/INH Inhalation Aerosol Powder Breath Activated (umeclidinium-francis anterol) Inhale 1 Puff by mouth daily. 180 [...] as of this encounter (statuses as of 03/14/2023) Active Problems Problem Noted Date Diagnosed Date [...] /min) 05/11/2018 Coronary artery disease invo lving [place] coronary artery of [place] heart without angina pectoris 05/08/2018 Anxiety state [...] MYOCARDIAL INFARCT 12/11/2008 Overview: Modified by Acute [place] Protocol [place]5. [facility] [place] coronary bare metal stents S/P angioplasty with stent 09/07/2006 History of tobacco use documented as of this encounter (statuses as of 03/14/2023) Resolved Problems Problem Noted Date Diagnosed Date [...] for Patients with Cardiovascular Disease Project #: [id number] PI: Peyton Conn MD [phone] GENOMICS CARDIO RESEARCH OTHER*[id number] 01/15/2007 06/28/2016 Overview: Renamed Per Clinical Trials Billing Project. Study Title: Genomic Markers for Patients with Cardiovascular Disease Project #: [id number] PI: Peyton Conn MD [phone] LV (left ventricular) mural thrombus 10/30/2006 12/28/2017 Tobacco use disorder 09/07/2006 010 Acute inferior myocardial infarction 08/19/2006 12/11/2008 Overview: Modified by Acute [place] Protocol #5. [facility] [place] coronary bare metal stents EXAMINATION OF PARTICIPANT I N CLINICAL TRIAL - HORIZONS 08/19/2006 09/04/2009 Overview: Renamed Per Clinical Trials Billing Project. [facility] AMI clinical trial 263 Single blind trial comparing heparin and IIB/IIIA with bivalirudin, and Taxus vs bare metal stent. Patient Follow-up for 5 years Musical Instrument Maker: Trent Verduzco [phone] [facility] Clinical Trial*[id number] 08/19/2006 09/08/2014 Overview: Renamed Per Clinical Trials Billing Project. [facility] AMI clinical trial 263 Single blind trial comparing heparin and IIB/IIIA with bivalirudin, and Taxus vs bare metal stent. Patient Follow-up for 5 years Musical Instrument Maker: Trent Verduzco [phone] Menopause 08/29/2002 02/23/2017 LOC PRIM [id number] 05/29/200206/23 Dyslipidemia, goal to be determined 05/29/2002 05/07/2009 Overview: Per Lipid Taxonomy. 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 02/23/2017 documented as of this encounter (statuses as of 03/14/2023) Immunizations Name Administration Dates Next Due COVID-19 [...] 9:20 AM EDT Laboratory Lab Mobile Phlebotomy [facility] [place] [place] [address] [place] [address] [facility], [facility] Mobile Home Draw [address] [place] [address] 03/20/2023 10:30 AM EDT Telemedicine [facility], [facility] [address] [facility] [place] [address] Timoteo Duggan PA-C [address] [facility] [place] [address] Cortney Benoit, [address] [place] [address] 03/24/2023 8:30 AM EDT Home Visit [facility], [facility] [address] [facility] [place] [address] Areli Washburn RN [address] [facility] [place] [address] 03/31/2023 1:15 PM EST Cardiac Studies Cardiology, [facility] [address] [facility] [place] [address] [facility] [address] [facility] [place] [address] 04/19/2023 9:30 AM EST Office Visit Pharmacy, [facility] [address] [place] [address] [facility] [address] [facility] [place] [address] 06/29/2023 8:30 AM EST Office Visit Cardiology, [facility] [address] [place] [address] Nikole Crenshaw PA-C [address] [place] [address] Health Maintenance Due Date Last Done Comments DISCUSS TOBACCO CESSATION (REFER TO SMARTSET #4965) 1945 Alpha-1 Antitrypsin 1965 DIABETES-EYE EXAM 1965 Diabetic Foot Exam 1965 DXA Scan 09/04/2016 09/04/2013, 09/04/2013 *ADVANCE DIRECTIVE NOT ON FILE 06/09/2019 COVID-19 Vaccine ( season) 2023 11/12/2020, 10/01/2020 Depression Screening 06/02/2023 06/02/2022 HbA1c 09/01/2023 03/02/2023, 12/21, 08/19/2006, Additional history exists GFR 09/12/2023 03/13/2023, 02/19, 10/07/2022, Additional history exists Albumin/Creatinine Ratio 03/02/2024 023, 02/21/2022, 07/23/2019 CKD HGB USE SMARTSET 79644 03/02/202403/02, 03/02/2023, 10/07/2022, Additional history exists CKD PHOS USE SMARTSET 61040 03/02/202402/19, 10/07/2022, 02/21/2022, Additional history exists O2 [...] Date/Time Associated Diagnosis Comments CARDIOLOGY SCANNED RESULT 01/12/2023 documented in this encounter Results * CARDIOLOGY SCANNED RESULT (01/12/2023) 01/12/2023 No Physician Data Unknown OTHER documented in this encounter Advance Directives [...] the patient have Health Care Power of Scrap Sawyer? No Healthcare Agents on File Name Relationship Healthcare Agent Relationshi p Communication Lacy Tong Adult Child Health Care Repr esentative (appointed verbally by patient or by statute hierarchy) Care Teams Vehicle Return Associate Relationship Specialty Start Date End Date Roman Ennis III, MD [address] [place] [address] PCP - General Family Medicine 06/28/18 documented as of this encounter
--- OUTSIDE RECORDS SUMMARY | 2023-06-29 05:32 | External Medical Summary | Summary of Care ---
Author Name Unknown Organization [facility] Address [address] [place] [address] Phone [phone] Care Team Providers Care Elevator Installer Name Role Phone Loli NORWOOD MD, Roman Barraza Primary Care Provider [phone] Encounter Details Date Type Department Care Team [...] /min) 05/11/2018 Coronary artery disease invo lving [place] coronary artery of [place] heart without angina pectoris 05/08/2018 Anxiety state [...] Overview: Modified by Acute [place] Protocol #5. [facility] right coronary bare metal stents S/P angioplasty [...] for Patients with Cardiovascular Disease Project #: [id number] PI: Peyton Conn MD [phone] GENOMICS CARDIO RESEARCH OTHER*[id number] 01/15/2007 06/28/2016 Overview: Renamed Per Clinical Trials Billing Project. Study Title: Genomic Markers for Patients with Cardiovascular Disease Project #: [id number] PI: Peyton Conn MD [phone] LV (left ventricular) mural thrombus 10/30/2006 12/28/2017 Tobacco use disorder 09/07/2006 010 Acute inferior myocardial infarction 08/19/2006 12/11/2008 Overview: Modified by Acute [place] Protocol #5. [facility] right coronary bare metal stents EXAMINATION OF PARTICIPANT I N CLINICAL TRIAL - HORIZONS 08/19/2006 09/04/2009 Overview: Renamed Per Clinical Trials Billing Project. [facility] AMI clinical trial 263 Single blind trial comparing heparin and IIB/IIIA with bivalirudin, and Taxus vs bare metal stent. Patient Follow-up for 5 years Citrus Peeler: Trent Verduzco [phone] [facility] Clinical Trial*[id number] 08/19/2006 09/08/2014 Overview: Renamed Per Clinical Trials Billing Project. [facility] AMI clinical trial 263 Single blind trial comparing heparin and IIB/IIIA with bivalirudin, and Taxus vs bare metal stent. Patient Follow-up for 5 years Citrus Peeler: Trent Verduzco [phone] Menopause 08/29/2002 02/23/2017 LOC PRIM [id number] 05/29/200206/23 Dyslipidemia, goal to be determined 05/29/2002 [...] 9:20 AM EDT Laboratory Lab Mobile Phlebotomy [facility] [address] [place] [address] [facility], [facility] Mobile Home Draw [address] [place] [address] 03/20/2023 10:30 AM EDT Telemedicine [facility], [facility] [address] [facility] [place] [address] Timoteo Duggan PA-C [address] [facility] [place] [address] Cortney Benoit, [address] [place] [address] 03/24/2023 8:30 AM EDT Home Visit [facility], [facility] [address] [facility] [place] [address] Areli Washburn RN [address] [facility] [place] [address] 03/31/2023 1:15 PM EST Cardiac Studies Cardiology, [facility] [address] [facility] [place] [address] [facility] [address] [facility] [place] [address] 04/19/2023 9:30 AM EST Office Visit Pharmacy, [facility] [address] [place] [address] [facility] [address] [facility] [place] [address] 06/29/2023 8:30 AM EST Office Visit Cardiology, [facility] [address] [place] [address] Nikole Crenshaw PA-C [address] [place] [address] Health Maintenance Due Date Last Done Comments DISCUSS TOBACCO CESSATION (REFER TO SMARTSET #7099) 1945 Alpha-1 Antitrypsin 1965 DIABETES-EYE EXAM 1965 Diabetic Foot Exam 1965 DXA Scan 09/04/2016 09/04/2013, 09/04/2013 *ADVANCE DIRECTIVE NOT ON FILE 06/09/2019 COVID-19 Vaccine ( season) 2023 11/12/2020, 10/01/2020 Depression Screening 06/02/2023 06/02/2022 HbA1c 09/01/2023 03/02/2023, 12/21, 08/19/2006, Additional history exists GFR 09/12/2023 03/13/2023, 02/19, 10/07/2022, Additional history exists Albumin/Creatinine Ratio 03/02/2024 023, 02/21/2022, 07/23/2019 CKD HGB USE SMARTSET 67380 03/02/202403/02, 03/02/2023, 10/07/2022, Additional history exists CKD PHOS USE SMARTSET 45524 03/02/202402/19, 10/07/2022, 02/21/2022, Additional history exists O2 [...] Procedure Name Priority Date/Time Associated Diagnosis Comments ECHOCARDIOLOGY SCANNED RESULT 01/12/2023 documented in this encounter Results * ECHOCARDIOLOGY SCANNED RESULT (01/12/2023) 01/12/2023 No Physician Data Unknown ECHOCARDIOLOGY documented in this encounter Advance Directives Latest [...] the patient have Health Care Power of Air Traffic Control Supervisor? No Healthcare Agents on File Name Relationship Healthcare Agent Relationshi p Communication Lacy Tong Adult Child Health Care Repr esentative (appointed verbally by patient or by statute hierarchy) Care Teams Elevator Installer Relationship Specialty Start Date End Date Roman Ennis III, MD [address] [place] [address] PCP - General Family Medicine 06/28/18 documented as of this encounter
--- OUTSIDE RECORDS SUMMARY | 2023-06-29 05:32 | External Medical Summary | Summary of Care ---
Author Name Unknown Organization [facility] Address [address] [place] [address] Phone [phone] Care Team Providers Care Cyber Security Manager Name Role Phone Loli NORWOOD MD, Roman Barraza Primary Care Provider [phone] Reason for Referral * Ancillary Services (Within 10 days (routine)) - Authorized Specialty Diagnoses / Procedures Referred By Contac t Referred To Contact Plant Operations Worker Diagnoses Benign hypertension with CKD (chronic kidney disease) stage III (HCC) Areli Washburn RN [address] [place] [address] Referral ID Status Reason Start Date Expiration Date Visits Requested Visits Authorized [id number] Authorized Ancillary Services Required 3 [phone] Question Answer Referral Priority Within 10 days (routine) Where should this appointment be scheduled? Elaine Comments Is Patient homebound? Yes All sections of this form must be filled out completely. Forms with missing or illegible information will be returned for completion. This form should not be modified in any way. Forms that have been modified will be returned. This form may not be submitted by a home health agency. It must be complete and submitted by the ordering provider. One full business day lead time is required and service will be scheduled based on the next service day for the [facility] Home Phlebotomy does not service every geographical location on a daily basis. Contact [facility] Client Services at to find out service days for a specific location. Medical Laboratory Home phlebotomy- [facility] Patient Name: Radha Tong : 1945 Sex: female Address [address] [place] [address] [address] AD[address]ESS- [address] across from post office Provider: Self? Roman Ennis III, MD? Diagnosis: I12.9,N18.30 Benign hypertension with CKD (chronic kidney disease) stage III (HCC) (primary encounter diagnosis) Tests Requested BMP - once starting March 09, 2023 Reason for Visit * Reason Comments [facility]: Enrollment Encounter Details Date Type Department Care Team (Late st Contact Info) Description 03/08/2023 2:00 PM EDT Home Visit [facility], [facility] [address] [place] [address] Areli Washburn RN [address] [place] [id number] Benign hypertension with CKD (chronic kidney disease) stage III (HCC)* Allergies Active Allergy Reactions Criticality Noted [...] daily. 180 Blister Dosing Unit 1 1 Active Ventolin HFA 108 (90 Base) MCG/ACT [...] needed (pain). 100 Tablet 0 3 Active Ondansetron HCl 4 MG Oral Tablet (Zofran)Indication s:Nausea Take 1 Tablet by mouth every 8 hours as needed for Nausea. 20 Tablet 0 3 Active Nitroglycerin 0.4 MG Sublingual Tablet Sublingual (Nitrostat)Indicat ions:ASCVD (arteriosclerotic cardiovascular disease),Chest pain, unspecified type DISSOLVE ONE TABLET UNDER THE TONGUE NEEDED FOR CHEST pain, maximum THREE doses 25 Tablet 5 3 Active Additional Information Patient not taking.Reported on 03/13/2023 Pantoprazole Sodium 40 MG Oral Tablet Delayed [...] DAY 90 Tablet 1 3 023 Discontinued levETIRAcetam 500 MG Oral Tablet (Keppra) Take 1 Tablet by mouth in the morning and 1 Tablet before bedtime. 0 3 023 Discontinued(Re fill) Venlafaxine HCl ER 150 MG Oral Capsule Extended Release 24 Hour (Effexor XR) Take 1 Capsule by mouth at bedtime. 0 023 Discontinued(Ar dication List Clean Up) traZODone HCl 50 [...] 11 3 023 Discontinued(Re fill) Potassium Chloride Ikm ER 20 MEQ Oral Tablet Extended Release TAKE ONE TABLET BY MOUTH EVERY DAY 30 Tablet 11 3 023 Discontinued(Re fill) hydrOXYzine HCl 25 MG Oral Tablet TAKE ONE TABLET BY MOUTH THREE TIMES DAILY NEEDED FOR ANXIETY 90 Tablet 2 3 023 Discontinued(Re fill) Clopidogrel Bisulfate 75 MG Oral Tablet (Plavix) Take 1 Tablet by mouth in the morning. 30 Tablet 5 3 023 Discontinued(Re fill) Apixaban 5 MG Oral Tablet (Eliquis) Take 1 Tablet by mouth 2 times a day. 60 Tablet 1 3 023 Discontinued(Re fill) documented as of [...] /min) 05/11/2018 Coronary artery disease invo [place]ving [place] coronary artery of [place] heart without angina pectoris 05/08/2018 Anxiety [...] Overview: Modified by Acute [place] Protocol #5. [facility] right coronary bare metal stents S/P angioplasty [...] for Patients with Cardiovascular Disease Project #: [id number] PI: Peyton Conn MD [phone] GENOMICS CARDIO RESEARCH OTHER*[id number] 01/15/2007 06/28/2016 Overview: Renamed Per Clinical Trials Billing Project. Study Title: Genomic Markers for Patients with Cardiovascular Disease Project #: [id number] PI: Peyton Conn MD [phone] LV (left ventricular) mural thrombus 10/30/2006 12/28/2017 Tobacco use disorder 09/07/2006 010 Acute inferior myocardial infarction 08/19/2006 12/11/2008 Overview: Modified by Acute NM Protocol #5. [facility] right coronary bare metal stents EXAMINATION OF PARTICIPANT I N CLINICAL TRIAL - HORIZONS 08/19/2006 09/04/2009 Overview: Renamed Per Clinical Trials Billing Project. [facility] AMI clinical trial 263 Single blind trial comparing heparin and IIB/IIIA with bivalirudin, and Taxus vs bare metal stent. Patient Follow-up for 5 years Textile Broker: Trent Verduzco [phone] [facility] Clinical Trial*[id number] 08/19/2006 09/08/2014 Overview: Renamed Per Clinical Trials Billing Project. [facility] AMI clinical trial 263 Single blind trial comparing heparin and IIB/IIIA with bivalirudin, and Taxus vs bare metal stent. Patient Follow-up for 5 years Textile Broker: Trent Verduzco [phone] Menopause 08/29/2002 02/23/2017 LOC PRIM [id number] 05/29/200206/23 Dyslipidemia, goal to be determined 05/29/2002 [...] Sign Reading Time Taken Comments Blood Pressure 106/62 03/08/2023 2:35 PM EDT Pulse 76 03/08/2023 2:35 PM EDT Temperature 36.6 C (97.8 F) 03/08/2023 2:35 PM ED T Respiratory Rate 18 03/08/2023 2:35 PM EDT Oxygen Saturation 96% 03/08/2023 2:35 PM EDT Inhaled Oxygen Concentration - - Weight - - Height - - Body Mass Index - - documented in this encounter Progress Notes * Areli Washburn RN - 03/08/2023 12:42 PM EDT [facility] Armored Car Guard Visit Date: 03/08/2023 Time: 12:43 PM Name: Radha Tong : 1945 Current Concerns: Patient seen for [facility] enrollment- frequent utilization in the last five months- [facility] 01/11-01/19- ? Seizure, found on garage floor after 2 days, encephalopathy, MARIELLA, Afib 12/27-12/29- COPD exacerbation 12/17-12/19 10/05- 10/10 Patient reports that during these utilizations- her son and granddaughter was living in the home. Son is a drug addict. Living situation was not good. After most recent hospitalization- son took patients car/ appliances and belongings and sold in a yard sale prior to her discharge. Currently other son Don and DIL Nadiya providing meals/ groceries. Assisting with care/pill box fill. Bottle out med review- medications listed in EPIC reflects medications in home that patient has been taking on regular basis. Upon reviewing discharge instructions on 01/19- patient was to discontinueHydroxyzine, Trazodone, Clonidine, Furosemide, Lisinopril, Potassium. None of which was done with ex ception of not taking Hydroxyzine.Has Metoprolol 100mg in home but not correct dose of 25mg daily. Gabapentin as well not in home. Medication refills sent to PCP to [facility] for pill packs monthly as DIL was filling pill box according to medications in home. PCP sent refills. Call to pharmacy to hold on pill packs until clarification. Also of note- Potassium level 03/02- 5.6 Hemoglobin 8.9- Potassium placed on hold. Continues on Eliquis. Repeat BMP, CBC in one week. Patient denies any signs of bleeding. Denies dizziness/lightheadedness at this time. Reports doing better. VS wnl Lungs clear but diminished Sob with exertion Trace nonpitting edema RLE- +1 pitting edema LLE Encouraged to elevate Voiding without difficulty Bowels wnl- per report Appetite good Taking fluids Denies discomfort at present time- Oxycodone prn pain Physical Exam: BP 106/62 (BP Site: Left Arm, BP Position: Sitting, BP Cuff Size: Regular) | Pulse 76 | Temp 36.6 C (97.8 F) (Tympanic) | Resp 18 | SpO2 96% Pain 0 Physical Exam Constitutional: Appearance: Normal appearance. Cardiovascular: Rate and Rhythm: Normal rate. Rhythm irregular. Pulses: Normal pulses. Pulmonary: Effort: Pulmonary effort is normal. Breath sounds: Normal breath sounds. Abdominal: General: Bowel sounds are normal. Palpations: Abdomen is soft. Musculoskeletal: General: Normal range of motion. Right lower leg: Edema present. Left lower leg: Edema present. Skin: General: Skin is warm. Capillary Refill: Capillary refill takes 2 to 3 seconds. Neurological: General: No focal deficit present. Mental Status: She is alert and oriented to person, place, and time. Psychiatric: Mood and Affect: Mood normal. Behavior: Behavior normal. Problems/Symptoms: Review of Systems Constitutional: Negative. HENT: Negative. Eyes: Negative. Respiratory: Positive for shortness of breath. Cardiovascular: Positive for leg swelling. Gastrointestinal: Negative. Endocrine: Negative. Genitourinary: Negative. Musculoskeletal: Positive for arthralgias. Allergic/Immunologic: Negative. Neurological: Negative. Hematological: Negative. Psychiatric/Behavioral: Negative. Medication Reconciliation: (See medication list) Does patient take medications as ordered: Yes- discrepancies noted. Patient Well Being: PHQ2/9: No questionnaires available. Within normal limits Lives alone one level home- rents [facility] Completed this Visit: Yes. [facility]: Reason Completed: Enrollment [facility] ([facility]) Fall Risk Assessment Tool Age 65+: Yes (03/08/231299) Diagnosis (3 or more co-existing): Yes (03/08/231299) Prior history of falls within 3 months: Yes (03/08/231299) Incontinence: No (03/08/231299) Visual impairment: Yes (03/08/231299) Impaired functional mobility: Yes (03/08/231299) Environmental hazards: No (03/08/231299) Poly Pharmacy (4 or more prescriptions - any type): Yes (03/08/231299) Pain affecting level of function: No (03/08/231299) Cognitive impairment: No (03/08/231299) Score - a score of 4 or more is considered at risk for fallin (03/08/231299) [facility] Interventions: Fall education provided, reviewed/provided Fall brochure Advanced Care Planning: Living Will. Reinforcement/Education: Educated on home safety: Create a fall proof home Clear floors of clutter, loose wires, throw rugs, and cords. Make sure halls, stairways, and entrances are well lit. Install a nightlight in your bedroom, hallway and bathroom. Install grab bars or handrails in the bathroom and on stairs. Use a non-skid tub/shower mat. Avoid climbing on a chair; instead use a step stool with a high handrail. Keep sidewalks and steps in good repair Keep steps and sidewalks free of snow and ice. Using aids to support and prevent falls If you have poor balance or have fallen in the past, consider additional support such as a cane or walker. Use a cane with good support and that is the proper length for you. Use a walker if a cane doesnt provide enough support. Avoid medications that increase the risk of falling by causing dizziness, change in sensation or slowed reflexes. Certain medicines may cause falls - blood pressure pills, heart medicines, water pills, or sleepingpills. Be sure to understand each medicine that you are taking and any side effects that may occur. Improve your balance and flexibility with muscle strengthening exercises. Ask your health care provider for some exercises that will be right for you. Reinforced medication regimen. Timing., Dosing., and Purspose. Treatment/Plan: Low na diet Elevate ble- edema Compression stockings encouraged Encouraged to weigh daily- DIL to purchase scale Continue medications as prescribed- hold potassium Keep all upcoming MD appointments Fall precautions- walker with ambulation Fluids encouraged LISA CM follow up in 2 days. Home Interventions Provided: Reinforced current Plan of Care, including self-management and medication regimen Patient Needs to Remember: Call [facility] with any medical concerns/ red flags Referrals Needed: N/a Follow Up: Is there cellular connectivity/connectivity in the home? Yes Does the patient have internet in the home? No Patient encouraged to call the intake phone number for all urgent but not emergent issues. Is the patient new to [facility] within the last 30 days? Yes, Is this a Transitions of Care visit? No Provider is in agreement with Plan of Care: Yes Scheduled to follow up with patient in 2 weeks. Areli Coates RN 03/08/2023 12:43 PM documented in this encounter Plan of Treatment Upcoming Encounters Date Type Department Care Team (Late st Contact Info) Description 03/15/2023 9:20 AM EDT Laboratory Lab Mobile Phlebotomy [facility] [address] [place] [address] [facility] Mobile Home Draw [address] [place] [address] 03/20/2023 10:30 AM EDT Telemedicine [facility], [facility] [address] [facility] [place] [address] Timoteo Duggan PA-C [address] [place] [address] Cortney Benoit [address] [place] [address] 03/24/2023 8:30 AM EDT Home Visit [facility], [facility] [address] [place] [address] Areli Washburn, LISA [address] [facility] [place] [address] 03/31/2023 1:15 PM EST Cardiac Studies Cardiology, [facility] [address] [place] [address] [facility] [address] [place] [address] 04/19/2023 9:30 AM EST Office Visit Pharmacy, [facility] [address] [place] [address] Jah [facility] [address] [place] [address] 06/29/2023 8:30 AM EST Office Visit Cardiology, [facility] [address] [place] [address] Nikole Crenshaw PA-C [address] [place] [address] Scheduled Orders Name Type Priority Associated Diagnoses Orde r Schedule BASIC METABOLIC PANEL Lab Routine Benign hypertension with CKD (chronic kidney disease) stage III (HCC) Expected: 03/08/2023 (Approximate), Expires: 03/07/2024 CBC Lab Routine Benign hypertension with CKD (chronic kidney disease) stage III (HCC) Expected: 03/09/2023 (Approximate), Expires: 03/08/2024 Scheduled Referrals Name Type Priority Associated Diagnoses Orde r Schedule HOME PHLEBOTOMY REFERRAL OP Referral Within 10 days (routine) Benign hypertension with CKD (chronic kidney disease) stage III (HCC) Ordered: 03/09/2023 Health Maintenance Due Date Last Done Comments [...] 023, 02/21/2022, 07/23/2019 CKD HGB USE SMARTSET [id number] 03/02/202403/02, 03/02/2023, 10/07/2022, Additional history exists CKD PHOS USE SMARTSET 73123 03/02/202402/19, 10/07/2022, 02/21/2022, Additional history exists O2 [...] as of this encounter Visit Diagnoses Diagnosis Benign hypertension with CKD (chronic kidney disease) stage III (HCC)- Primary 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 No Healthcare Agents on File Name Relationship Healthcare Agent Relationshi p Communication Lacy Tong Adult Child Health Care Repr esentative (appointed verbally by patient or by statute hierarchy) Care Teams Cyber Security Manager Relationship Specialty Start Date End Date Roman Ennis III, MD [address] [place] [address] PCP - General Family Medicine 06/28/18 documented as of this encounter
--- OUTSIDE RECORDS SUMMARY | 2023-06-29 05:32 | External Medical Summary | Summary of Care ---
Author Name Unknown Organization [facility] Address [address] [place] [address] Phone [phone] Care Team Providers Care Substitute Teacher Name Role Phone Loli NORWOOD MD, Roman Barraza Primary Care Provider [phone] Reason for Visit * Reason Comments Follow Up Over 2 year follow u p. [facility] 01/11-01/19/23 and well as a few other times that month. Dizziness for a brief period when standing. Edema in LE but has improved some. SOB due to COPD - not worse then prior. Denies chest pain and palpitations. * Evaluate & Treat - Unlimited Visits (Within 30 days (routine)) - Authorized Specialty Diagnoses / Procedures Referred By Xuan bey Referred To Contact Cardiovascular Medicine / Cardiology Diagnoses Chronic atrial fibrillation (HCC) Xuan Xie, [address] [place] [address] Referral ID Status Reason Start Date Expiration Date Visits Requested Visits Authorized [id number] Authorized Specialty Services Required 02/27/2023 [id number] Encounter Details Date Type Department Care Team (Late st Contact Info) Description 03/13/2023 11:30 AM EDT Office Visit Cardiology, [facility] [address] [place] [address] Nikole Crenshaw PA-C [address] [place] [phone] Coronary artery disease involving akhiok coronary artery of [place] heart without angina pectoris*; Hyperkalemia; Dyslipidemia, goal LDL below 70; Essential hypertension with goal blood pressure less than 140/90; Biventricular implantable cardioverter-defibril lator in situ; Paroxysmal atrial fibrillation (HCC); Localized edema Allergies Active Allergy Reactions Criticality Noted Date [...] oxyCODONE HCl 5 MG Oral Tablet (Oxy IR)Indications:Metal Cabinet Finisher fernando pain syndrome Take 1 Tablet [...] before bedtime. 200 Tablet 5 03/13/2023 Active Potassium Chloride Kim ER 20 MEQ Oral [...] /min) 05/11/2018 Coronary artery disease invo lving akhiok coronary artery of akhi[place] heart without angina pectoris 05/08/2018 Anxiety state [...] Overview: Modified by Acute AR Protocol #5. [facility] right coronary bare metal stents S/P angioplasty [...] for Patients with Cardiovascular Disease Project #: [id number] PI: Peyton Conn MD [phone] GENOMICS CARDIO RESEARCH OTHER*[id number] 01/15/2007 06/28/2016 Overview: Renamed Per Clinical Trials Billing Project. Study Title: Genomic Markers for Patients with Cardiovascular Disease Project #: [id number] PI: Peyton Conn MD [phone] LV (left ventricular) mural thrombus 10/30/2006 12/28/2017 Tobacco use disorder 09/07/2006 010 Acute inferior myocardial infarction 08/19/2006 12/11/2008 Overview: Modified by Acute AR Protocol #5. [facility] right coronary bare metal stents EXAMINATION OF PARTICIPANT I N CLINICAL TRIAL - [facility] 08/19/2006 09/04/2009 Overview: Renamed Per Clinical Trials Billing Project. [facility] AMI clinical trial 263 Single blind trial comparing heparin and IIB/IIIA with bivalirudin, and Taxus vs bare metal stent. Patient Follow-up for 5 years Certified Corporate Travel Executive: Trent Verduzco [phone] [facility] Clinical Trial*[id number] 08/19/2006 09/08/2014 Overview: Renamed Per Clinical Trials Billing Project. [facility] AMI clinical trial 263 Single blind trial comparing heparin and IIB/IIIA with bivalirudin, and Taxus vs bare metal stent. Patient Follow-up for 5 years Certified Corporate Travel Executive: Trent Verduzco [phone] Menopause 08/29/2002 02/23/2017 LOC PRIM [id number] 05/29/200206/23 Dyslipidemia, goal to be determined 05/29/2002 [...] Sign Reading Time Taken Comments Blood Pressure 110/64 03/13/2023 11:28 AM EDT Pulse 84 03/13/2023 11:28 AM EDT Temperature - - Respiratory Rate 17 03/13/2023 11:28 AM EDT Oxygen Saturation - - Inhaled Oxygen Concentration - - Weight 64.3 kg (141 lb 12 oz) 03/13/2023 11:28 A M EDT Height - - Body Mass Index 25.95 02/27/2023 4:30 PM EDT documented in this encounter Patient Instructions * Patient Instructions* Nikole Crenshaw PA-C - 03/13/2023 11:55 AM EDT Arrange in clinic device check Blood work today Increase metoprolol to 25 mg - 1 tablet in the morning and 1 tablet in the evening Wear compression stockings for swelling documented in this encounter Progress Notes * Nikole Crenshaw PA-C - 03/13/2023 11:36 AM EDT Images from the original note were not included. 03/13/2023 Cardiology F/U: HPI: Patient is a 77-year-old female today cardiology follow-up. Last evaluation approximately 2 years ago with Ion GONZALEZ. History includes: ICM S/P inferior posterior AR 08/2006 S/P PCI to RCA and 4 BMS 12/2006 Apical thrombus - resolved LBBB BIV ICD 11/24/2008 gent change 08/06/2013 after the gent change the RV coil impedence was elevated andfound to have the high voltage plug not in the port entirely so had a revision the next day; Gen change in November 2020 HTN HLD Chronic tobacco abuse Paroxysmal atrial fib DVT AAA COPD Chronic anemia Patient lost to f/u since 2020. In December 2022 patient was admitted to [facility] after being found on her garage floor for 2 days. Possible seizure event. Hospital records reviewed in detail. She minimally elevated troponin. Cardiology was consulted. Findings were consistent with possible rhabdo with MARIELLA. Lisinopril and furosemide were held. Improved renal function. She was FOBT + with anemia. Eliquisinitially held but resumed prior to discharge. She had episodes of PAF on telemetry, converting to paced rhythm. Metoprolol was reduced on discharge due to hypotension. Device interrogated as well. LV lead thresholds not able to capture (? Due to afib RVR). Echo was done during admission which demonstrated normal LVEF without significant valvular disease She has since resumed lisinopril and furosemide. She is here today with her daughter in law, Nadiya. She notes increased LE edema since hospitalization. Not wearing compression stockings but has at home. She is taking high dose gabapentin. She denies worsening dyspnea, orthopnea, PND or cough. No chest pain. BP controlled. Taking meds. Last labs show hyperkalemia. Stopped potassium. Weight continues to trend upward. She notes intermittent palpitations. Comes and goes. Worse since reduction in metoprolol. No recent in clinic device check. Review of Systems: See HPI for pertinent positives. All others negative, other than those noted in HPI. Patient Active Problem List Diagnosis Code ADVANCE [...] Vaginal atrophy N95.2 Coronary artery disease involving akhiok coronary artery of akhiok heart without angina pectoris I25.10 Anxiety state F41.1 Kidney disease, chronic, stage III (GFR 30-59 ml/min) ([facility]) N18.30 History of ischemic cardiomyopathy Z86.79 COPD, group C, by GOLD 2017 classification ([facility]) J44.9 HTN, goal to be determined I10 Carpal tunnel syndrome, bilateral G56.03 Trigger ring finger of right hand M65.341 Trigger ring finger of left hand M65.342 History of 2019 novel coronavirus disease (COVID-19) Z86.16 Abdominal aortic aneurysm (AAA) without rupture ([facility]) I71.40 Type 2 diabetes mellitus with hemoglobin A1c goal of less than 8.0% ([facility]) E11.9 Benign hypertension with CKD (chronic kidney disease) stage III ([facility]) I12.9, N18.30 Cigarette smoker F17.210 Infrarenal abdominal aortic aneurysm (AAA) without rupture ([facility]) I71.43 Type 2 diabetes mellitus with diabetic chronic kidney disease (HCC) E11.22 Chronic combined systolic and diastolic congestive heart failure (HCC) I50.42 Monoplegia, upper limb, nondominant side S/P CVA (cerebrovascular acc) (HCC) I69.339 Right leg DVT (HCC) I82.401 Hypertensive heart and kidney disease 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 and stage 3 chronic kidney disease (HCC) I13.0, I50.42, N18.30 Atrial fibrillation (HCC) I48.91 Atrial fibrillation (HCC) I48.91 Atrial fibrillation (HCC) I48.91 Other disorders of phosphorus metabolism E83.39 Breakthrough seizure (HCC) G40.919 Social History Tobacco Use Smoking status: Every Day Packs/day: 0.25 Years: 20.00 Additional pack years: 0.00 Total pack years: 5.00 Types: Cigarettes Smokeless tobacco: Never Tobacco comments: "About 6 cigarettes a day." Vaping Use Vaping Use: Never used Substance Use Topics Alcohol use: No Drug use: No Family History Problem Relation Age of [place]set Cancer Mother cervical cancer Heart Disorder Mother CABG Diabetes Mother Cancer Father prostate cancer Heart Disorder Father Thyroid Disorder Father Thyroid Disorder Sister Ear Problems Sister meniers Cancer Brother No Past Hx Brother No Past Hx Daughter No Past Hx Son No Past Hx Son No Past Hx Son No Past Hx Son Past Surgical History: Procedure Laterality Date CARDIAC CATH-CARDIOLOGY ONLY 08/19/2006 right coronary artery 3 bare metal stents, [facility] CARPAL TUNNEL SURGERY Bilateral 02/20/2020 NEUROPLASTY MEDIAN NERVE AT CARPAL TUNNEL performed by Lore Richey DO at OR [facility] INSERT PULSE GENERATOR, EXISTING SINGLE LEAD 08/06/2013 NEW ICD GENERATOR ONLY performed by Tylor Loya MD at CARDIAC LABS [facility] LAP;W/HYSTERECTOMY 02/04/2020 LEFT VENTRICULAR PACING ELECTRODE, ADD-ON 11/24/08 CS LEAD PLACEMENT WITH INITIAL DEVICE performed by TYLOR LOYA at [facility]ARD[facility] MAMMOGRAM - BILATERAL 07/17/02 Birad Code 2 PACEMAKER-DEFIBRILLATOR ELECTRODE INSERT, SINGLE 08/09/2013 REPLACE LEAD (1 LEAD) performed by Monik Arnold IV, MD at [facility]ARDI[facility] REMOVE CATARACT, INSERT LENS PROSTH Right REMOVE GALLBLADDER 1990s Cholecystectomy, [place] TENDON SHEATH INCISION, FINGER Bilateral 02/20/2020 TRIGGER FINGER RELEASE performed by Hithem Rahmi, DO at OR [facility] VAGINAL DELIVERY ONLY times 5 Review of patient's allergies indicates: Allergen Reactions [...] for Wheezing or Dyspnea. 54 g 1 oxyCODONE HCl 5 MG Oral Tablet (Oxy IR) Take 1 Tablet by mouth every 6 hours as needed (pain). 100 Tablet 0 Ondansetron HCl 4 MG Oral Tablet (Zofran) Take 1 Tablet by mouth every 8 hours as needed for Nausea. 20 Tablet 0 Apixaban 5 MG Oral Tablet (Eliquis) Take [...] 1 Tablet before bedtime. 200 Tablet 5 Cyanocobalamin 1000 MCG Oral Tablet (Cyanocobalamin) Take by mouth 1 Tablet in the morning. (Patient not taking: Reported on 03/08/2023) 100 Tablet 5 Nitroglycerin 0.4 MG Sublingual Tablet Sublingual (Nitrostat) DISSOLVE ONE TABLET UNDER THE TONGUE NEEDED FOR CHEST pain, maximum THREE doses (Patient not taking: Reported on 03/13/2023) 25 Tablet5 No current facility-administered medications for this visit. Objective BP 110/64 | Pulse 84 | Resp 17 | Wt 64.3 kg (141 lb 12 oz) | BMI 25.95 kg/m | BSA 1.68 m General: NAD. A+Ox3. HEENT: Normocephalic. Atraumatic. PERRL. EOMI. Conjunctiva and sclera clear. NECK: No carotid bruits. No JVD. Carotid upstrokes are brisk. Heart: RRR. S1 and S2 noted without murmur, rubs, gallops. PMI non displaced. Lungs: Clear to auscultation and percussion. No wheezes, rhonchi, rales. Abdomen: Normal bowel sounds. Soft. Nontender. No masses or organomegaly. No abdominal bruits. Extremities: No edema. No clubbing or cyanosis. Pulses: radial=2/4, posterior tibial=2/4, dorsalis pedis = 2/4. NEURO: No focal deficits. PSYCH: Normal. RESULTS: Device interrogation at [facility] - reviewed, scanned to chart -needs in office device check. Echo report reviewed dated December 2022: Nuclear Stress Test: 01/14/2020: Lexiscan nuclear cardiac stress test is abnormal revealing myocardial scar in the inferior and inferoseptal wall(S). Abnormal gated SPECT imaging demonstrating basal inferior hypokinesis. The LV ejection fraction is calculated at 67%. Compared to prior stress test dated August 28, 2014, there is no significant change. Echocardiogram: 01/14/2020: Calculated LV ejection Fraction = 52% (three dimensional volumes). There is a moderate sized septal, inferior, and posterior wall motion abnormality with hypokinesis of the segments. The septal motion is abnormal consistent with right ventricular pacemaker. Mild aortic valve sclerosis is present. Compared to prior study of 03/09/2017, there is no significant change. Latest Reference Range & Units 02/21/22 15:23 Triglycerides <=174 mg/dL 324 (H) Cholesterol <200 mg/dL 162 Non-HDL Cholesterol <=159 mg/dL 119 HDL Cholesterol >49 mg/dL 43 (L) LDL Cholesterol <=129 mg/dL 54 (H): Data is abnormally high (L): Data is abnormally low Latest Reference Range & Units 03/02/23 09:17 Sodium 135 - 146 mmol/L 138 Potassium 3.5 - 5.1 mmol/L 5.6 (H) Chloride 98 - 107 mmol/L 102 CO2 22 - 32 mmol/L 24 BUN 6 - 20 mg/dL 37 (H) Creatinine 0.5 - 1.0 mg/dL 1.5 (H) Estimated Glomerular Filtration Rate >=60 mL/min 36 (L) Anion Gap 7 - 15 mmol/L 12 Glucose 70 - 120 mg/dL 98 Calcium 8.4 - 10.2 mg/dL 9.3 Phosphorus 2.5 - 4.8 mg/dL 4.8 Protein 6.0 - 8.3 g/dL 6.9 Estimated Average Glucose <126 mg/dL 120 Folic Acid >4.5 ng/mL 10.1 (H): Data is abnormally high (L): Data is abnormally low ASSESSMENT: 1. BIV ICD - Gen change in November 2020 2. PAF 3. ICM S/P BIV ICD 11/24/2008 gent change 08/06/2013 after the gent change the RV coil impedence was elevated and found to have the high voltage plug not in the port entirely so had a revision the next day 4. CAD S/P inferior posterior AR 08/2006 S/P PCI to RCA and 4 BMS 12/2006 5. Apical thrombus - resolved 6. LBBB 7. HTN 8. HLD 9. Prior tobacco use 10. Hepatitis C 11. CKD stage III 12. COPD 13. COVID 19 07/2020 (was hospitalized for 22 days) 14. HFrEF PLAN: Patient with worsening LE edema since hospitalization. Taking furosemide 40 mg daily. LULY stockings advised. Edema may be due to gabapentin use. Repeat BMP today. Pending renal function/electrolytes, consider titration of furosemide. Remain off potassium. Would not use spironolactone with hyperkalemia In office device check scheduled -overdue for threshold testing. ? LV lead status on interrogation at [facility]. Possibly due to afib. Patient symptomatic with PAF. Increase metoprolol to 25 mg BID. Continue Eliquis Patient Instructions Arrange in clinic device check Blood work today Increase metoprolol to 25 mg - 1 tablet in the morning and 1 tablet in the evening Wear compression stockings for swelling I spent a total of 45 minutes on the date of service in preparation, delivery, and documentation ofthe care provided to Radha Tnog excluding any time spent in the performance of separately billed services. The patient agrees to the above plan and will call with additional questions or concerns. ER with all emergencies advised. Follow-up: Return in about 3 months (around 06/13/2023). | Check-out note: Print instructions Arrange in clinic device check with [employer] rep as soon as possible - next available Monday Blood work today 3 month f/u Nikole Crenshaw PA-C Department of Cardiology This chart was completed in part utilizing [employer] Speech Voice Recognition Software. Grammatical errors, random word insertions, prounoun errors, and incomplete sentences are an occasional consequence of this system due to software limitations, ambient noise, and hardware issues. Any formal questions or concerns about the content, text, or information contained within the body of this dictation should be directly addressed to the provider for clarification. documented in this encounter Nursing Notes * Sixto Melissa LPN - 03/13/2023 11:28 AM EDT Patient identified by full name and date of Chief Complaint Patient presents with Follow Up Over 2 year follow up. [facility] 01/11-01/19/23 and well as a few other times that month. Dizziness for a brief period when standing. Edema in LE but has improved some. SOB due to COPD - not worse then prior. Denies chest pain and palpitations. Examination Room: 1 Name: Radha Tong Date of : (1945). Reason for Visit: Follow up Interim Hospitalization(s): [facility] 01/11-01/19/23 Problems/Concerns: See chief complaint Chest Pain/SOB: See chief complaint [facility] Discussed: Yes [facility] is a way you can talk to your provider online through e-mail. Would you like to sign up? I can activate it for you? DECLINES Patient was instructed to not get up on the exam table until directed and assisted by their provider; patient is to remain seated in the chair/ wheelchair/ exam table for fall prevention and safety reasons. Patient is aware to have assistance to step down off exam table with personnel. Patient voiced full comprehension of instructions. documented in this encounter Plan of Treatment Upcoming Encounters Date Type Department Care Team (Late st Contact Info) Description 03/15/2023 9:20 AM EDT Laboratory Lab Mobile Phlebotomy [facility] [address] [place] [address] [facility] Mobile Home Draw [address], [place] [id number] 03/20/2023 10:30 AM EDT Telemedicine [facility], [facility] [address] [facility] [place] [address] Timoteo Duggan PA-C [address] [place] [address] Cortney Benoit, [facility] [address] [place] [address] 03/24/2023 8:30 AM EDT Home Visit [facility], [facility] [address] [place] [address] Areli Washburn RN [address] [facility] [place] [address] 03/31/2023 1:15 PM EST Cardiac Studies Cardiology, [facility] [address] [place] [address] [facility] [address] [place] [address] 04/19/2023 9:30 AM EST Office Visit Pharmacy, [facility] [address] [place] [address] [facility] [address] [place] [address] 06/29/2023 8:30 AM EST Office Visit Cardiology, [facility] [address] [place] [address] Nikole Crenshaw PA-C [address] [place] [address] Pending Results Name Type Priority Associated Diagnoses Date /Time MAGNESIUM Lab Routine Hyperkalemia Dyslipidemia, goal LDL below 70 Coronary artery disease involving akhiok coronary artery of ak[place] heart without angina pectoris Essential hypertension with goal blood pressure less than 140/90 Biventricular implantable cardioverter-defibrillator in situ Paroxysmal atrial fibrillation (HCC) 03/13/2023 12:10 PM EDT BASIC METABOLIC PANEL Lab Routine Hyperkalemia Dyslipidemia, goal LDL below 70 Coronary artery disease involving akhi[place] coronary artery of [place]hi[place] heart without angina pectoris Essential hypertension with goal blood pressure less than 140/90 Biventricular implantable cardioverter-defibrillator in situ Paroxysmal atrial fibrillation (HCC) 03/13/2023 12:10 PM EDT Scheduled Orders Name Type Priority Associated Diagnoses Orde r Schedule MAGNESIUM Lab Routine Hyperkalemia Dyslipidemia, goal LDL below 70 Coronary artery disease involving akhi[place] coronary artery of [place] heart without angina pectoris Essential hypertension with goal blood pressure less than 140/90 Biventricular implantable cardioverter-defibrillator in situ Paroxysmal atrial fibrillation (HCC) Expected: 03/13/2023, Expires: 03/13/2024 BASIC METABOLIC PANEL Lab Routine Hyperkalemia Dyslipidemia, goal LDL below 70 Coronary artery disease involving [place]hi[place] coronary artery of [place]hi[place] heart without angina pectoris Essential hypertension with goal blood pressure less than 140/90 Biventricular implantable cardioverter-defibrillator in situ Paroxysmal atrial fibrillation (HCC) Expected: 03/13/2023, Expires: 03/13/2024 Health Maintenance Due Date Last Done Comments DISCUSS TOBACCO CESSATION (REFER TO SMARTSET #5501) 1945 Alpha-1 Antitrypsin 1965 DIABETES-EYE EXAM 1965 Diabetic Foot Exam 1965 DXA Scan 09/04/2016 09/04/2013, 09/04/2013 *ADVANCE DIRECTIVE NOT ON FILE 06/09/2019 COVID-19 Vaccine ( season) 2023 11/12/2020, 10/01/2020 Depression Screening 06/02/2023 06/02/2022 GFR 09/01/2023 03/02/2023, 09/19, 02/21/2022, Additional history exists HbA1c 09/01/2023 03/02/2023, 12/21, 08/19/2006, Additional history exists Albumin/Creatinine Ratio 03/02/2024 023, 02/21/2022, 07/23/2019 CKD HGB USE SMARTSET 12449 03/02/202403/02, 03/02/2023, 10/07/2022, Additional history exists CKD PHOS USE SMARTSET 79918 03/02/202402/19, 10/07/2022, 02/21/2022, Additional history exists O2 [...] as of this encounter Visit Diagnoses Diagnosis Coronary artery disease involving akhi[place] coronary artery of [place] heart without angina pectoris- Primary Hyperkalemia Hyperpotassemia Dyslipidemia, goal LDL below 70 Other and unspecified hyperlipidemia Essential hypertension with goal blood pressure less than 140/90 Biventricular implantable cardioverter-defibrillator in situ Paroxysmal atrial fibrillation (HCC) Atrial fibrillation Localized edema Edema documented in this encounter Advance Directives Latest [...] the patient have Health Care Power of Flaking Roll Operator? No Healthcare Agents on File Name Relationship Healthcare Agent Relationshi p Communication Lacy Tong Adult Child Health Care Repr esentative (appointed verbally by patient or by statute hierarchy) Care Teams Substitute Teacher Relationship Specialty Start Date End Date Roman Ennis III, MD [address] [place] [address] PCP - General Family Medicine 06/28/18 documented as of this encounter
--- OUTSIDE RECORDS SUMMARY | 2023-06-29 05:32 | External Medical Summary | Summary of Care ---
Author Name Unknown Organization [facility] Address [address] [place] [address] Phone [phone] Care Team Providers Care Medical Claims Representative Name Role Phone Loli NORWOOD MD, Roman Barraza Primary Care Provider [phone] Reason for Referral * Medication Prior Authorization - Closed Specialty Diagnoses / Procedures Referred By Xuan t Referred To Contact Diagnoses Nausea Xuan Xie DO [address] [place] [address] Referral ID Status Reason Start Date Expiration Date Visits Re quested Visits Authorized [id number] Closed 999 999 * Evaluate & Treat - Unlimited Visits (Within 30 days (routine)) - Authorized Specialty Diagnoses / Procedures Referred By Xuan bey Referred To Contact Cardiovascular Medicine / Cardiology Diagnoses Chronic atrial fibrillation (HCC) Xuan Xie DO [address] [place] [address] Referral ID Status Reason Start Date Expiration Date Visits Requested Visits Authorized [id number] Authorized Specialty Services Required 02/27/2023 999 999 Question Answer Referral Priority Within 30 days (routine) Where should this appointment be scheduled? [facility] To which of the following clinics are you referring your patient? General Cardiology [facility] * Evaluate & Treat - Unlimited Visits (Within 30 days (routine)) - Authorized Specialty Diagnoses / Procedures Referred By Xuan t Referred To Contact Neurology Diagnoses Convulsions, unspecified convulsion type (HCC) Xuan Xie DO [address] [facility] [place] [address] Referral ID Status Reason Start Date Expiration Date Visits Requested Visits Authorized [id number] Authorized Specialty Services Required 02/27/2023 999 999 Question Answer Referral Priority Within 30 days (routine) Where should this appointment be scheduled? [facility] REFERRAL QUESTIONS Seizure Reason for Visit * Reason Onset Date Comments Hospital Follow-Up Medication Administration 02/27/2023 Flu an d/or Pneumo Inj Encounter Details Date Type Department Care Team (Late st Contact Info) Description 02/27/2023 4:20 PM EDT Office Visit [facility] [place] [address] [facility] [place] [address] Xuan Xie DO [address] [facility] [place] [address] MARIELLA (acute kidney injury) (HCC)*; Type 2 diabetes mellitus with diabetic mononeuropathy, without long-term current use of insulin (HCC); Convulsions, unspecified convulsion type (HCC); Breakthrough seizure (HCC); Chronic atrial fibrillation (HCC); Atrial fibrillation, unspecified type (HCC); Traumatic rhabdomyolysis, subsequent encounter; Hematochezia; Syncope and collapse; Acute pain of right knee; Chronic pain syndrome; Other disorders of phosphorus metabolism; Vitamin D deficiency; Need for prophylactic vaccination and inoculation against influenza; Nausea Allergies Active Allergy Reactions Criticality Noted Date Comments Isosorbide Mononitrate 12/24/2007 Severe headaches Nsaids 05/29/2002 Tramadol Hcl Nausea/vomiting Low 01/09/2008 UGI distress documented as of this encounter (statuses as of 03/13/2023) Medications Medication Sig Dispensed Refills Start Date End Date Status Anoro Ellipta 62.5-25 MCG/INH Inhalation Aerosol Powder Breath Activated (umeclidinium-eusebia nterol) Inhale 1 Puff by mouth daily. 180 Blister Dosing Unit 1 12/01/202 1 Active Ventolin HFA 108 (90 Base) [...] for Nausea. 20 Tablet 0 3 Active Aspirin 81 MG TabletIndications: F/u of acute inferior myocardial infarction Take 1 Tablet by mouth in the morning. 0 7 023 Discontinued nitroglycerin (NITROSTAT) 0.4 MG SUBLIndications: CVD (arteriosclerotic cardiovascular disease),Chest pain, unspecified type one tab under tongue as needed for chest pain maximum 3 doses 25 Tab 5 9 023 Discontinued Pantoprazole Sodium 40 MG Oral [...] Capsule by mouth at bedtime. 0 023 Discontinued(Me dication List Clean Up) traZODone HCl 50 [...] 30 Tablet 11 3 023 Discontinued(Re fill) Ondansetron HCl 4 MG Oral Tablet (Zofran)Indication [...] /min) 05/11/2018 Coronary artery disease invo lving ute mountain coronary artery of ute mountain heart without angina pectoris 05/08/2018 Anxiety state [...] Overview: Modified by Acute [place] Protocol #5. [facility] right coronary bare metal stents S/P angioplasty [...] for Patients with Cardiovascular Disease Project #: [id number] PI: Peyton Conn MD [phone] GENOMICS CARDIO RESEARCH OTHER*[id number] 01/15/2007 06/28/2016 Overview: Renamed Per Clinical Trials Billing Project. Study Title: Genomic Markers for Patients with Cardiovascular Disease Project #: [id number] PI: Peyton Conn MD [phone] LV (left ventricular) mural thrombus 10/30/2006 12/28/2017 Tobacco use disorder 09/07/2006 010 Acute inferior myocardial infarction 08/19/2006 12/11/2008 Overview: Modified by Acute [place] Protocol #5. [facility] right coronary bare metal stents EXAMINATION OF PARTICIPANT I N CLINICAL TRIAL - [facility] [place] 08/19/2006 09/04/2009 Overview: Renamed Per Clinical Trials Billing Project. [facility] AMI clinical trial 263 Single blind trial comparing heparin and IIB/IIIA with bivalirudin, and Taxus vs bare metal stent. Patient Follow-up for 5 years Vamp Seamer: Trent Verduzco [phone] [facility] [place] Clinical Trial*[id number] 08/19/2006 09/08/2014 Overview: Renamed Per Clinical Trials Billing Project. [facility] AMI clinical trial 263 Single blind trial comparing heparin and IIB/IIIA with bivalirudin, and Taxus vs bare metal stent. Patient Follow-up for 5 years Vamp Seamer: Trent Verduzco [phone] Menopause 08/29/2002 02/23/2017 LOC PRIM [id number] 05/29/200206/23 Dyslipidemia, goal to be determined 05/29/2002 [...] Sign Reading Time Taken Comments Blood Pressure 106/70 02/27/2023 4:30 PM EDT Pulse 96 02/27/2023 4:30 PM EDT Temperature 36.7 C (98 F) 02/27/2023 4:30 PM EDT Respiratory Rate 16 02/27/2023 4:30 PM EDT Oxygen Saturation 100% 02/27/2023 4:30 PM EDT Inhaled Oxygen Concentration - - Weight 60.8 kg (134 lb 0.6 oz) 02/27/2023 4:30 P M EDT Height 157.4 cm (5' 1.97") 02/27/2023 4:30 PM ED T Body Mass Index 24.54 02/27/2023 4:30 PM EDT documented in this encounter Patient Instructions * Patient Instructions* Lisa Escobar LPN - 02/27/2023 4:37 PM EDT ~~PATIENT INSTRUCTIONS FOR FLU SHOT~~ Possible side effects of influenza vaccine, (flu shot), are usually mild and include: 1. Soreness or redness at injection site 2. Low grade fever 3. Body aches You may use Tylenol/Acetaminophen as needed for these symptoms. LET YOUR DOCTOR KNOW IMMEDIATELY IF YOU HAVE DIFFICULTY BREATHING OR SWALLOWING, EXPERIENCE ITCHINGOF FEET OR HANDS, HAVE SWELLING OF EYES, FACE OR INSIDE OF NOSE. documented in this encounter Progress Notes * Xuan Xie DO - 02/27/2023 4:56 PM EDT Subjective: Radha Tong is a 77 year old female. Chief Complaint Patient presents with Hospital Follow-Up Medication Administration Flu and/or Pneumo Inj HPI: Patient presents today for a hospital follow up. She wanted to discuss the pain in her legs. She wanted to discuss if she is truly having seizures. Hospital records, labs, studies, and discharge instructions reviewed with patient PHM: Patient Active Problem List Diagnosis Code ADVANCE [...] Vaginal atrophy N95.2 Coronary artery disease involving ute mountain coronary artery of ute mountain heart without angina pectoris I25.10 Anxiety state F41.1 Kidney disease, chronic, stage III (GFR 30-59 ml/min) ([facility]) N18.30 History of ischemic cardiomyopathy Z86.79 COPD, group C, by GOLD 2017 classification ([facility]) J44.9 Essential hypertension with goal blood pressure less than 140/90 I10 Carpal tunnel syndrome, bilateral G56.03 Trigger ring finger of right hand M65.341 Trigger ring finger of left hand M65.342 History of 2019 novel coronavirus disease (COVID-19) Z86.16 Abdominal aortic aneurysm (AAA) without rupture ([facility]) I71.40 Type 2 diabetes mellitus with hemoglobin A1c goal of less than 8.0% ([facility]) E11.9 Benign hypertension with CKD (chronic kidney disease) stage III ([facility]) I12.9, N18.30 Cigarette smoker F17.210 Infrarenal abdominal aortic aneurysm (AAA) without rupture ([facility]) I71.43 Type 2 diabetes mellitus with diabetic chronic kidney disease ([facility]) E11.22 Chronic combined systolic and diastolic congestive heart failure ([facility]) I50.42 Monoplegia, upper limb, nondominant side S/P CVA (cerebrovascular acc) ([facility]) I69.339 Right leg DVT ([facility]) I82.401 Hypertensive heart and kidney disease 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 and stage 3 chronic kidney disease ([facility]) I13.0, I50.42, N18.30 Atrial fibrillation ([facility]) I48.91 Atrial fibrillation ([facility]) I48.91 Atrial fibrillation ([facility]) I48.91 Other disorders of phosphorus metabolism E83.39 Breakthrough seizure ([facility]) G40.919 Outpatient Medications Prior to Visit Medication Sig Dispense Refill oxyCODONE HCl 5 MG Oral Tablet (Oxy IR) Take 1 Tablet by mouth every 6 hours as needed (pain). 100 Tablet 0 [DISCONTINUED] Apixaban 5 MG Oral Tablet (Eliquis) Take 1 Tablet by mouth 2 times a day. 60 Tablet 1 [DISCONTINUED] Clopidogrel Bisulfate 75 MG Oral Tablet (Plavix) Take 1 Tablet by mouth in the morning. 30 Tablet 5 [DISCONTINUED] hydrOXYzine HCl 25 MG Oral Tablet TAKE ONE TABLET BY MOUTH THREE TIMES DAILY NEEDED FOR ANXIETY 90 Tablet 2 [DISCONTINUED] Potassium Chloride Kim ER 20 MEQ Oral Tablet Extended Release TAKE ONE TABLET BY MOUTH EVERY DAY 30 Tablet 11 [DISCONTINUED] cloNIDine HCl 0.1 MG Oral Tablet (Catapres) Take 0.5 Tablets by mouth in the morning. 15 Tablet 11 [DISCONTINUED] Furosemide 40 MG Oral Tablet (Lasix) Take 1 Tablet by mouth in the morning. 30 Tablet 11 [DISCONTINUED] traZODone HCl 50 MG Oral Tablet (Desyrel) Take 0.5 Tablets by mouth at bedtime. 30 Tablet 5 [DISCONTINUED] Venlafaxine HCl ER 150 MG Oral Capsule Extended Release 24 Hour (Effexor XR) Take 1 Capsule by mouth at bedtime. [DISCONTINUED] levETIRAcetam 500 MG Oral Tablet (Keppra) Take 1 Tablet by mouth in the morning and 1 Tablet before bedtime. [DISCONTINUED] Atorvastatin Calcium 40 MG Oral Tablet (Lipitor) TAKE ONE TABLET BY MOUTH EVERY DAY (Patient taking differently: 0.5 Tablets.) 90 Tablet 1 [DISCONTINUED] Metoprolol Succinate ER 100 MG Oral Tablet Extended Release 24 Hour (toPROL XL) TAKEONE TABLET BY MOUTH EVERY DAY (Patient taking differently: 25 mg.) 90 Tablet 1 [DISCONTINUED] Gabapentin 300 MG Oral Capsule (Neurontin) Take 1 Capsule by mouth in the morning and 1 Capsule at noon and 1 Capsule before bedtime. 90 Capsule 11 [DISCONTINUED] Lisinopril 20 MG Oral Tablet (Prinivil) TAKE ONE TABLET BY MOUTH EVERY DAY 90 Tablet3 [DISCONTINUED] Pantoprazole Sodium 40 MG Oral Tablet Delayed Release (Protonix) TAKE ONE TABLET BY MOUTH DAILY 30 MINUTES BEFORE FIRST meal of THE DAY 90 Tablet 3 Cyanocobalamin 1000 MCG Oral Tablet (Cyanocobalamin) Take by mouth 1 Tablet in the morning. (Patient not taking: Reported on 03/08/2023) 100 Tablet 5 Anoro Ellipta 62.5-25 MCG/INH Inhalation Aerosol Powder Breath Activated (umeclidinium-vilanterol) Inhale 1 Puff by mouth daily. 180 Blister Dosing Unit 1 Ventolin HFA 108 (90 Base) MCG/ACT Inhalation Aerosol Solution Inhale 2 Puffs by mouth every 4 hours as needed for Wheezing or Dyspnea. 54 g 1 [DISCONTINUED] nitroglycerin (NITROSTAT) 0.4 MG SUBL one tab under tongue as needed for chest pain maximum 3 doses 25 Tab 5 [DISCONTINUED] Ondansetron HCl 4 MG Oral Tablet (Zofran) Take 1 Tablet by mouth every 8 hours as needed for Nausea. 20 Tablet 0 [DISCONTINUED] Aspirin 81 MG Tablet Take 1 Tablet by mouth in the morning. No facility-administered medications prior to visit. Last reviewed on 03/13/2023 11:58 AM by Nikole Crenshaw PA-C Review of patient's allergies indicates: Allergen Reactions Imdur [Isosorbide Mononitrate] Severe headaches Nsaids Ultram [Tramadol Hcl] Nausea/vomiting UGI distress Objective: BP 106/70 | Pulse 96 | Temp 36.7 C (98 F) (Tympanic) | Resp 16 | Ht 1.574 m (5' 1.97") | Wt 60.8 kg (134 lb 0.6 oz) | SpO2 100% | BMI 24.54 kg/m | BSA 1.63 m Physical Exam: General: alert, healthy, and no distress Heart: regular rate & rhythm, no murmur, and no gallops Lungs: chest symmetric with normal AP diameter, no chest deformities noted, no chest wall tenderness, lungs clear to auscultation Pulses: carotid=2/4 w/o bruits Extremities: less than 2 second capillary refill, no joint deformities, effusion, or inflammation ASSESSMENT/PLAN: MARIELLA (acute kidney injury) (HCC) (Primary) - COMPREHENSIVE METABOLIC PANEL; Future; Expected date: 02/27/2023 - PTH; Future; Expected date: 02/27/2023 - PHOSPHORUS; Future; Expected date: 02/27/2023 Type 2 diabetes mellitus with diabetic mononeuropathy, without long-term current use of insulin ([facility]) - HEMOGLOBIN A1C; Future; Expected date: 02/27/2023 Convulsions, unspecified convulsion type ([facility]) - NEUROLOGY REFERRAL OP - EEG ROUTINE Breakthrough seizure (HCC) Chronic atrial fibrillation ([facility]) - CARDIOLOGY REFERRAL OP Atrial fibrillation, unspecified type (HCC) Traumatic rhabdomyolysis, subsequent encounter Hematochezia - COMPREHENSIVE METABOLIC PANEL; Future; Expected date: 02/27/2023 - CBC WITH WBC DIFFERENTIAL AND ANEMIA REFLEX WORKUP; Future; Expected date: 02/27/2023 Syncope and collapse - EXTERNAL EKG 8 TO 15 DAYS; Future; Expected date: 02/28/2023 Acute pain of right knee - XR KNEE 4 OR MORE VIEWS Chronic pain syndrome - TOXICOLOGY, URINE SCREEN W/ CONFIRMATION; Future; Expected date: 02/27/2023 Other disorders of phosphorus metabolism Vitamin D deficiency - 25-HYDROXY VITAMIN D; Future; Expected date: 02/27/2023 Need for prophylactic vaccination and inoculation against influenza - INFLUENZA VACC, QUAD, HIGH DOSE (FLUZONE HD) Nausea - Ondansetron HCl 4 MG Oral Tablet (Zofran); Take 1 Tablet by mouth every 8 hours as needed for Nausea. 30 min spent with patient, reviewing history, performing physical exam, reviewing labs, studies, specialist OVNs, and reports, educating and coordinating care, discussing treatment Xuan Xie DO * Lisa Escobar LPN - 02/27/2023 4:36 PM EDT PRE - ADMINISTRATION DOCUMENTATION Are you experiencing any cold symptoms or fever? No Have you had Guillain-Independence Syndrome (an illness that causes paralysis) within the last 6 weeks? No Have you had the flu shot in the past? YES Have you ever had a reaction to the flu shot? No Lisa Escobar LPN, 02/27/2023 4:36 PM Immunization Administration Documentation Time Out Procedure Performed: Yes Patient Identified (Ask Name/Date of ): Yes Does the patient have a fever greater than 101 degrees today? No Patient allergic to latex? No VFC Stock: No Immunization(s) verified: Yes, Immunization Name: Flu, VIS Sheet(s) given: Yes Verified Side and Site: Yes Verified Shot(s) with Parent(s)/Patient: Yes documented in this encounter Nursing Notes * Lisa Escobar LPN - 02/27/2023 4:29 PM EDT Patient presents today for a hospital follow up. She wanted to discuss the pain in her legs. She wanted to discuss if she is truly having seizures. documented in this encounter Plan of Treatment Upcoming Encounters Date Type Department Care Team (Late st Contact Info) Description 03/15/2023 9:20 AM EDT Laboratory Lab Mobile Phlebotomy [facility] [address] [place] [address] [facility], [facility] Mobile Home Draw [address] [place] [address] 03/20/2023 10:30 AM EDT Telemedicine [facility], [facility] [address] [place] [address] Timoteo Duggan PA-C [address] [place] [address] [facility] [address] [place] [address] 03/24/2023 8:30 AM EDT Home Visit [facility], [facility] [address] [place] [address] Areli Washburn, RN [address] [facility] [place] [address] 03/31/2023 1:15 PM EST Cardiac Studies Cardiology, [facility] [address] [place] [address] [facility] [address] [place] [address] 04/19/2023 9:30 AM EST Office Visit Pharmacy, [facility] [address] [place] [address] [facility] [address] [place] [address] 06/29/2023 8:30 AM EST Office Visit Cardiology, [facility] [address] [place] [address] Nikole Crenshaw PA-C [address] [place] [address] Scheduled Orders Name Type Priority Associated Diagnoses Orde r Schedule EEG ROUTINE Procedures Routine Convulsions, unspecified convulsion type (HCC) Ordered: 02/27/2023 EXTERNAL EKG 8 TO 15 DAYS Holter Routine Syncope and collapse Expected: 02/28/2023 (Approximate), Expires: 02/28/2024 Scheduled Referrals Name Type Priority Associated Diagnoses Orde r Schedule NEUROLOGY REFERRAL OP Referral Within 30 days (routine) Convulsions, unspecified convulsion type (HCC) Ordered: 02/27/2023 CARDIOLOGY REFERRAL OP Referral Within 30 days (routine) Chronic atrial fibrillation (HCC) Ordered: 02/27/2023 Health Maintenance Due Date Last Done Comments [...] 023, 02/21/2022, 07/23/2019 CKD HGB USE SMARTSET 44299 03/02/202403/02, 03/02/2023, 10/07/2022, Additional history exists CKD PHOS USE SMARTSET 17259 03/02/202402/19, 10/07/2022, 02/21/2022, Additional history exists O2 [...] Procedure Name Priority Date/Time Associated Diagnosis Comments XR KNEE 4 OR MORE VIEWS Routine 03/02/2023 9:28 AM EDT Acute pain of right knee documented in this encounter Results * XR KNEE 4 OR MORE VIEWS (03/02/2023 9:28 AM EDT) Anatomical Region Laterality Modality Knee, Lower Extremity Computed R adiography 03/04/2023 3:42 PM EDT Impressions 03/04/2023 3:40 PM EDT IMPRESSION Only minimal/mild patellofemoral arthrosis. No acute fracture or joint effusion. Narrative 03/04/2023 3:40 PM EDT EXAM XR KNEE 4 OR MORE VIEWS-03/02/2023 9:28 am HISTORY pain medial right knee COMPARISON None TECHNIQUE Five views of the right knee FINDINGS No acute fracture or dislocation about the right knee. Only minimal/mild patellofemoral compartment arthrosis. No significant joint effusion. Vascular calcifications. Potential slight anterior soft tissue swelling. Procedure Note Sixto Trent MD - 03/04/2023 EXAM XR KNEE 4 OR MORE VIEWS-03/02/2023 9:28 am HISTORY pain medial right knee COMPARISON None TECHNIQUE Five views of the right knee FINDINGS No acute fracture or dislocation about the right knee. Only minimal/mildpatellofemoral compartment arthrosis. No significant joint effusion.Vascular calcifications. Potential slight anterior soft tissueswelling. IMPRESSION IMPRESSION Only minimal/mild patellofemoral arthrosis. No acute fracture or joint effusion. Xuan Xie DO RADIOLOGY (RAD GENERAL) * (ABNORMAL) 25-HYDROXY VITAMIN D (03/02/2023 9:17 AM EDT) Pathologist [facility] 25-Hydroxy Vitamin D 10(L) >19 ng/mL 03/02/2023 10:08 PM EDT LABORATORY [facility] Blood Venous blood specimen / Unknown Venipuncture / Unknown 03/02/2023 9:17 AM EDT 03/02/2023 9:17 AM EDT Narrative LABORATORY [facility] - 03/02/2023 10:08 PM EDT Deficient: <20 ng/mL Insufficient: 20-29 ng/mL Recommended/Optimum:30-50 ng/mL Vitamin D intoxication is rare. If suspicious of Vitamin D toxicity, evaluation of serum Calcium and PTH is recommended. Xuan Xie DO LAB BLOOD ORDER [facility] LABORATORY [facility] [address] [place] [address] * (ABNORMAL) TOXICOLOGY, URINESCREEN W/ CONFIRMATION (03/02/2023 9:17 AM EDT) Amphetamine Negative Negative 03/03/2023 12:24 AM EDT LABORATORY [facility] Benzodiazepines Negative Negative 12:24 AM EDT LABORATORY [facility] Cannabinoids Negative Negative 03/03/2023 12:24 AM EDT LABORATORY [facility] Cocaine Metabolite Negative Negative 2022 12:24 AM EDT [facility] Fentanyl Negative Negative 03/03/2023 12:24 AM EDT [facility] Hydrocodone / Hydromorphone Negative Negative 03/03/2023 12:24 AM EDT [facility] Methadone Metabolite Negative Negative 03/03/2023 12:24 AM EDT [facility] Morphine / Codeine Negative Negative 2022 12:24 AM EDT [facility] Oxycodone / Oxymorphone Positive(A) Negative 03/03/2023 12:24 AM EDT [facility] Urine Urine specimen / Unknown Non-blood Collection / Unknown 03/02/2023 9:17 AM EDT 03/02/2023 9:17 AM EDT Narrative [facility] - 03/03/2023 12:24 AM EDT Cutoff Concentrations: Drug Level Amphetamines 500 ng/mL Benzodiazepines 100 ng/mL Cannabinoids 50 ng/mL Cocaine Metabolite 150 ng/mL Fentanyl 1 ng/mL Hydrocodone / Hydromorphone 300 ng/mL Methadone Metabolite 100 ng/mL Morphine / Codeine 300 ng/mL Oxycodone / Oxymorphone 100 ng/mL Screening results are presumptive and can only be used for medical purposes. Positive screening results are reflexed to confirmatory testing. Xuan Xie DO LAB URINE ORDER [facility] LABORATORY [facility] [address] [place] [address] * PHOSPHORUS (03/02/2023 9:17 AM EDT) Phosphorus 4.8 2.5 - 4.8 mg/dL 03/02/2023 9:33 PM EDT [facility] Blood Venous blood specimen / Unknown Venipuncture / Unknown 03/02/2023 9:17 AM EDT 03/02/2023 9:17 AM EDT Xuan Xie DO LAB BLOOD ORDER [facility] Performing Organization Address City/[facility]/ZIP Co de Phone Number LABORATORY [facility] [address] [place] [address] * (ABNORMAL) PTH (03/02/2023 9:17 AM EDT) PTH 76(H) 15 - 65 pg/mL 03/02/2023 10:08 PM EDT LABORATORY [facility] Blood Venous blood specimen / Unknown Venipuncture / Unknown 03/02/2023 9:17 AM EDT 03/02/2023 9:17 AM EDT Xuan Xie DO LAB BLOOD ORDER [facility] LABORATORY [facility] [address] [place] [address] * (ABNORMAL) COMPREHENSIVE METABOLIC PANEL (03/02/2023 9:17 AM EDT) BUN 37(H) 6 - 20 mg/dL 03/02/2023 9:33 PM EDT [facility] Creatinine 1.5(H) 0.5 - 1.0 mg/dL 03/02/2023 9:33 PM EDT [facility] Estimated Glomerular Filtration Rate 36(L) >=60 mL/min 03/02/2023 9:33 PM EDT [facility] Comment:eGFR is calculated b ased on the CKD-EPI 2020 equation Sodium 138 135 - 146 mmol/L 03/02/2023 9:33 PM EDT [facility] Potassium 5.6(H) 3.5 - 5.1 mmol/L 03/02/2023 9:33 PM EDT [facility] Chloride 102 98 - 107 mmol/L 03/02/2023 9:33 PM EDT [facility] CO2 24 22 - 32 mmol/L 03/02/2023 9:33 PM EDT [facility] Anion Gap 12 7 - 15 mmol/L 03/02/2023 9:33 PM EDT [facility] Glucose 98 70 - 120 mg/dL 03/02/2023 9:33 PM EDT [facility] Albumin 4.6 3.8 - 5.0 g/dL 03/02/2023 9:33 PM EDT [facility] AST 12 10 - 35 U/L 03/02/2023 9:33 PM EDT [facility] Alkaline Phosphatase 64 35 - 130 U/L 03/02/2023 9:33 PM EDT [facility] Bilirubin, Total 0.3 <=1.2 mg/dL 03/02/2023 9:33 PM EDT [facility] Calcium 9.3 8.4 - 10.2 mg/dL 03/02/2023 9:33 PM EDT [facility] Protein 6.9 6.0 - 8.3 g/dL 03/02/2023 9:33 PM EDT [facility] ALT 15 10 - 35 U/L 03/02/2023 9:33 PM EDT [facility] Blood Venous blood specimen / Unknown Venipuncture / Unknown 03/02/2023 9:17 AM EDT 03/02/2023 9:17 AM EDT Xuan Xie DO LAB BLOOD ORDER [facility] LAB[facility] [address] [place] [address] documented in this encounter Visit Diagnoses Diagnosis MARIELLA (acute kidney injury) (HCC)- Primary Acute kidney failure, unspecified Type 2 diabetes mellitus with diabetic mononeuropathy, without long-term current use of insulin (HCC) Convulsions, unspecified convulsion type (HCC) Breakthrough seizure (HCC) Unspecified epilepsy with intractable epilepsy Chronic atrial fibrillation (HCC) Atrial fibrillation Atrial fibrillation, unspecified type (HCC) Traumatic rhabdomyolysis, subsequent encounter Hematochezia Blood in stool Syncope and collapse Acute pain of right knee Chronic pain syndrome Other disorders of phosphorus metabolism Vitamin D deficiency Unspecified vitamin D deficiency Need for prophylactic vaccination and inoculation against influenza Nausea Nausea alone documented in this encounter Advance Directives Latest [...] the patient have Health Care Power of Pipelines Superintendent? No Healthcare Agents on File Name Relationship Healthcare Agent Relationshi p Communication Lacy Tong Adult Child Health Care Repr esentative (appointed verbally by patient or by statute hierarchy) Care Teams Medical Claims Representative Relationship Specialty Start Date End Date Roman Ennis III, MD [address] [place] [address] PCP - General Family Medicine 06/28/18 documented as of this encounter
--- OUTSIDE RECORDS SUMMARY | 2023-06-29 05:33 | External Medical Summary ---
Author Name Unknown Address Unknown Organization K01:[place] [facility] [place] [address] [place] [address] Laboratory Report Ordering Provider Test Date Status ANABELLE BREWER 03/02/2023 09:17:16 Final Observation Date Value Abnormality Reference (Units ) Status HbA1C 03/02/2023 09:17:16 5.8 Above high normal 4. 0-5.6 (%) Final The use of HbA1c to monitor glycemic status is based on normal hemoglobin and HbA composition. This test should not be used in patients with abnormal hemoglobin that affects the half life of the red blood cell or the in vivo glycation rates. Glucose, estimated average 03/02/2023 09:17:16 120 <126 (mg/dL) Final Performing Location [place] [facility] [place] [address] [place] [address]
--- OUTSIDE RECORDS SUMMARY | 2023-06-29 05:33 | External Medical Summary | Summary of Care ---
Author Name Unknown Organization [facility] Address [address] [place] [address] Phone [phone] Care Team Providers Care Interventional Physician Name Role Phone Loli NORWOOD MD, Roman Barraza Primary Care Provider [phone] Reason for Visit * Reason Comments Outpatient Testing Encounter Details Date Type Department Care Team Description 03/02/2023 Laboratory Laboratory [address] [place] [id number] [facility] [address] [place] [id number] HTN, goal to be determined; Stage 3 chronic kidney disease, unspecified whether stage 3a or 3b CKD ([facility]); Type 2 diabetes mellitus with hemoglobin A1c goal of less than 8.0% ([facility]); Diarrhea, unspecified type; Heme positive stool; MARIELLA (acute kidney injury) ([facility]); Hematochezia; Chronic pain syndrome; Type 2 diabetes mellitus with diabetic mononeuropathy, without long-term current use of insulin ([facility]); Vitamin D deficiency Allergies Active Allergy Reactions Severity Noted Date Comments Isosorbide Mononitrate 12/24/2007 Severe headaches Nsaids 05/29/2002 Tramadol Hcl Nausea/vomiting Low 01/09/2008 UGI distress documented as of this encounter (statuses as of 03/02/2023) Medications Medication Sig Dispensed Refills Start Date [...] the morning. 100 Tablet 5 02/24/2022 Active Pantoprazole Sodium 40 MG Oral Tablet Delayed Release (Protonix)Indication s:Abdominal pain, epigastric TAKE ONE TABLET BY MOUTH DAILY 30 MINUTES BEFORE FIRST meal of THE DAY 90 Tablet 3 2022 Active Lisinopril 20 MG Oral Tablet (Prinivil)Indication s:HTN, goal to be determined TAKE ONE TABLET BY MOUTH EVERY DAY 90 Tablet 3 04/26/2022 Active Gabapentin 300 MG Oral Capsule (Neurontin) Take 1 Capsule by mouth in the morning and 1 Capsule at noon and 1 Capsule before bedtime. 90 Capsule 06/02/2022 Active Atorvastatin Calcium 40 MG Oral Tablet (Lipitor) TAKE ONE TABLET BY MOUTH EVERY DAY 90 Tablet 1 06/27/2022 Active Additional Information Patient taking differently: 20 mg, Reported on 10/19/2022 Metoprolol Succinate ER 100 MG Oral Tablet Extended Release 24 Hour (toPROL XL)Indications:Acute inferior myocardial infarction (HCC),ASCVD (arteriosclerotic cardiovascular disease) TAKE ONE TABLET BY MOUTH EVERY DAY 90 Tablet 1 06/27/2022 Active Additional Information Patient taking differently: 25 mg, Reported on 02/27/2023 levETIRAcetam 500 MG Oral Tablet (Keppra) Take 1 Tablet by mouth in the morning and 1 Tablet before bedtime. 0 10/09/2022 Active Venlafaxine HCl ER 150 MG Oral Capsule Extended Release 24 Hour (Effexor XR) Take 1 Capsule by mouth at bedtime. 0 Active traZODone HCl 50 MG Oral Tablet (Desyrel) Take 0.5 Tablets by mouth at bedtime. 30 Tablet 5 10/19/2022 Active cloNIDine HCl 0.1 MG Oral Tablet (Catapres) Take 0.5 Tablets by mouth in the morning. 15 Tablet 10/19/2022 Active Furosemide 40 MG Oral Tablet (Lasix) Take 1 Tablet by mouth in the morning. 30 Tablet 10/19/2022 Active Potassium Chloride Kim ER 20 MEQ Oral Tablet Extended Release TAKE ONE TABLET BY MOUTH EVERY DAY 30 Tablet 11 10/21/2022 Active hydrOXYzine HCl 25 MG Oral Tablet TAKE ONE TABLET BY MOUTH THREE TIMES DAILY NEEDED FOR ANXIETY 90 Tablet 2 01/04/2023 Active Clopidogrel Bisulfate 75 MG Oral Tablet (Plavix) Take 1 Tablet by mouth in the morning. 30 Tablet 5 01/04/2023 Active oxyCODONE HCl 5 MG Oral Tablet (Oxy IR)Indications:Chron ic pain syndrome Take 1 Tablet by mouth every 6 hours as needed (pain). 100 Tablet 0 02/26/2023 Active Apixaban 5 MG Oral Tablet (Eliquis) Take 1 Tablet by mouth 2 times a day. 60 Tablet 1 02/23/2023 Active Ondansetron HCl 4 MG Oral Tablet (Zofran)Indications: Nausea Take 1 Tablet by mouth every 8 hours as needed for Nausea. 20 Tablet 0 02/27/2023 Active Nitroglycerin 0.4 MG Sublingual Tablet Sublingual (Nitrostat)Indicatio ns:ASCVD (arteriosclerotic cardiovascular disease),Chest pain, unspecified type DISSOLVE ONE TABLET UNDER THE TONGUE NEEDED FOR CHEST pain, maximum THREE doses 25 Tablet 5 03/01/2023 Active documented as of this encounter (statuses as of 03/02/2023) Active Problems Problem Noted Date Atrial fibrillation 02/27/2023 Atrial fibrillation 02/27/2023 Atrial fibrillation 02/27/2023 Other disorders of phosphorus metabolism 02/27/2023 Breakthrough seizure 02/27/2023 Hypertensive heart and kidne y disease with chronic combined systolic and diastolic congestive heart failure and stage 3 chronic kidney disease 02/20/2023 Chronic combined systolic and diastolic congestive heart failure 01/04/2023 Monoplegia, upper limb, nondominant side S/P CVA (cerebrovascular acc) 01/04/2023 Right leg DVT 01/04/2023 Infrarenal abdominal aortic aneurysm (AA A) without rupture 10/14/2022 Type 2 diabetes mellitus with diabetic c hronic kidney disease 10/14/2022 Cigarette smoker 08/03/2022 Type 2 diabetes mellitus with hemoglobin A1c goal of less than 8.0% 06/02/2022 Benign hypertension with CKD (chronic ki dney disease) stage III 06/02/2022 Abdominal aortic aneurysm (AAA) without rupture 09/09/2020 History of 2019 novel coronavirus diseas e (COVID-19) 07/29/2020 Carpal tunnel syndrome, bilateral 2019 Trigger ring finger of right hand 2019 Trigger ring finger of left hand 020 HTN, goal to be determined 07/23/2019 COPD, group C, by GOLD 2017 classificati on 06/03/2019 Overview: Per COPD GOLD Classification History of ischemic cardiomyopathy 07/18 Kidney disease, chronic, stage III (GFR 30-59 ml/min) 05/11/2018 Coronary artery disease invo lving kashia coronary artery of kashia heart without angina pectoris 05/08/2018 Anxiety state 05/08/2018 ADVANCE DIRECTIVE INFORMATION 03/23/2018 Overview: No, Advance Directive brochure offered , patient declined. Incomplete uterovaginal prolapse 018 Cystocele, lateral 09/29/2017 Vaginal atrophy 09/29/2017 Hepatitis C antibody test positive 05/09 Overview: HCV treated; SVR Confirmed 03/05/2018 Controlled substance agreement signed Biventricular implantable cardioverter-d efibrillator in situ 08/07/2013 History of colonic polyps 09/04/2012 Overview: 09/01/2012: adenoma, repeat in 3 years ICD-10 update of inactive term DYSLIPIDEMIA, GOAL LDL BELOW 100 009 Overview: Per Lipid Taxonomy. OLD MYOCARDIAL INFARCT 12/11/2008 Overview: Modified by Acute [place] Protocol #5. [facility] [place] right coronary bare metal stents S/P angioplasty with stent 09/07/2006 History of tobacco use documented as of this encounter (statuses as of 03/02/2023) Resolved Problems Problem Noted Date Resolved Date Migraine 10/14/2022 10/14/2022 Acute inferior myocardial infarction 02/17/2020 09/09/2020 COPD, group C, by GOLD 2017 classification 07/2203/31/2020 Chronic hepatitis C without hepatic coma 019 10/14/2022 COPD, moderate 07/18/2018 06/06/2019 Overview: Per COPD GOLD Classification Obstructive lung disease 04/02/2018 018 Hypertensive heart disease with heart failure 07/18/2018 Chronic hepatitis C without hepatic coma 018 03/12/2018 Overview: HCV treated; SVR Confirmed 03/05/2018 Abnormal blood chemistry 08/14/2014 018 HTN, goal below 130/80 10/24/2013 7 Ischemic cardiomyopathy 08/07/2012 07/18/19 19 Warfarin anticoagulation 03/28/2012 017 Abdominal aortic aneurysm 11/04/20102012 Overview: tiny 2.50 cm infrarenal aneurysm seen on xray Repeat US 06/2011 Other nonspecific abnormal c ardiovascular system function study 11/07/2007 10/04/2017 EXAMINATION OF PARTICIPANT IN CLINICAL TRIAL - G ENOMICS 01/15/2007 09/04/2009 Overview: Renamed Per Clinical Trials Billing Project. Study Title: Genomic Markers for Patients with Cardiovascular Disease Project #: [id number] PI: Peyton Conn MD [phone] GENOMICS CARDIO RESEARCH OTHER*[id number] 200606/28/2016 Overview: Renamed Per Clinical Trials Billing Project. Study Title: Genomic Markers for Patients with Cardiovascular Disease Project #: [id number] PI: Peyton Conn MD [phone] LV (left ventricular) mural thrombus 10/30/2006 12/28/2017 Tobacco use disorder 09/07/2006 06/09/2009 Acute inferior myocardial infarction 08/19/2006 12/11/2008 Overview: Modified by Acute [place] Protocol #5. [facility] [place] right coronary bare metal stents EXAMINATION OF PARTICIPANT IN CLINICAL TRIAL - H ORIZONS 08/19/2006 09/04/2009 Overview: Renamed Per Clinical Trials Billing Project. [facility] AMI clinical trial 2004- 0264 Single blind trial comparing heparin and IIB/IIIA with bivalirudin, and Taxus vs bare metal stent. Patient Follow-up for 5 years Category Development Manager: Trent Verduzco [phone] [facility] Clinical Trial*[id number] 08/19/2006 09/08/2014 Overview: Renamed Per Clinical Trials Billing Project. [facility] AMI clinical trial 263 Single blind trial comparing heparin and IIB/IIIA with bivalirudin, and Taxus vs bare metal stent. Patient Follow-up for 5 years Category Development Manager: Trent Verduzco [phone] Menopause 08/29/2002 02/23/2017 LOC PRIM [id number] 05/29/2002 07/18/19 19 Dyslipidemia, goal to be determined 05/29/2002 05/07/2009 Overview: Per Lipid Taxonomy. FAM HX-DIABETES MELLITUS 05/29/2002 017 cystocoele 09/29/2017 Prolapse of vaginal celeste 2017 Overview: ICD-10 update of inactive term LEFT BB BLOCK NEC 07/18/2018 Other specified forms of chronic ischemic heart disease 02/23/2017 documented as of this encounter (statuses as of 03/02/2023) Immunizations Name Administration Dates Next Due COVID-19 [...] drink = 0.6 oz pur e alcohol) Food Insecurity Answer Date Recorded Within the past 12 months, y ou worried that your food would run out before you got money to buy more. Never true 01/31/2019 Within the past 12 months, t he food you bought just didn't last and you didn't have money to get more. Never true 01/31/2019 Sex Assigned at Date Recorded Not on file Job Start Date Occupation Industry Not on file Not on file Not on file documented as of this encounter Plan of Treatment Upcoming Encounters Date Type Specialty Care Team Description 03/07/2023 NeuroDiagnostic Study Neurophysiology Sp, Neurophys Tech [address] [facility] [place] [address] 03/08/2023 Home Visit [facility] Areli Washburn RN [address] [place] [address] 03/20/2023 Telemedicine [facility] Timoteo Duggan PA-C [address] [facility] [place] [address] [address] [place], [employer] Lead [address] [place] [address] 04/19/2023 Office Visit Pharmacy [facility] [address] [place] [address] Pending Results Name Type Priority Associated Diagnoses Date /Time ALBUMIN / CREATININE RATIO, URINE Lab Routine Type 2 diabetes mellitus with hemoglobin A1c goal of less than 8.0% ([facility]) 03/02/2023 9:17 AM EDT HEMOGLOBIN A1C Lab Routine Type 2 diabetes mellitus with hemoglobin A1c goal of less than 8.0% ([facility]) 03/02/2023 9:17 AM EDT CBC WITH WBC DIFFERENTIAL AND ANEMIA REFLEX WORKUP Lab Routine Diarrhea, unspecified type Heme positive stool 03/02/2023 9:17 AM EDT IRON SCREEN, INCLUDING TIBC Lab Routine Diarrhea, unspecified type Heme positive stool 03/02/2023 9:17 AM EDT FERRITIN Lab Routine Diarrhea, unspecified type Heme positive stool 03/02/2023 9:17 AM EDT COMPREHENSIVE METABOLIC PANEL Lab Routine MARIELLA (acute kidney injury) ([facility]) Hematochezia 03/02/2023 9:17 AM EDT PTH Lab Routine MARIELLA (acute kidney injury) ([facility]) 03/02/2023 9:17 AM EDT PHOSPHORUS Lab Routine MARIELLA (acute kidney injury) ([facility]) 03/02/2023 9:17 AM EDT TOXICOLOGY, URINESCREEN W/ CONFIRMATION Lab Routine Chronic pain syndrome 03/02/2023 9:17 AM EDT 25-HYDROXY VITAMIN D Lab Routine Vitamin D deficiency 03/02/2023 9:17 AM EDT ANEMIA CBC Lab Routine Diarrhea, unspecified type Heme positive stool 03/02/2023 9:17 AM EDT DIFFERENTIAL, AUTOMATED Lab Routine Diarrhea, unspecified type Heme positive stool 03/02/2023 9:17 AM EDT ANEMIA REFLEX CHEMISTRY HOLD Lab Routine Diarrhea, unspecified type Heme positive stool 03/02/2023 9:17 AM EDT Health Maintenance Due Date Last Done Comments DISCUSS TOBACCO CESSATION (REFER TO SMARTSET #6005) 1945 Alpha-1 Antitrypsin 1965 DIABETES-EYE EXAM 1965 Diabetic Foot Exam 1965 HbA1c 07/18/2007 01/15/2007, 07/22, 05/29/2002 DXA Scan 09/04/2016 09/04/2013, 09/04/2013 *ADVANCE DIRECTIVE NOT ON FILE 06/09/2019 COVID-19 Vaccine ( season) 2023 11/12/2020, 10/01/2020 Albumin/Creatinine Ratio 02/21/2023 02/21/2022, 07/2019 GFR 04/09/2023 10/07/2022, 07/2021, 12/09/2020, Additional history exists Depression Screening 06/02/2023 06/02/2022 CKD HGB USE SMARTSET 05931 10/08/202310/07, 02/21/2022, 12/09/2020, Additional history exists CKD PHOS USE SMARTSET 05112 10/08/202309/19, 02/21/2022, 07/18/2018 O2 ASSESSMENT COMPLETED IN PAST YEAR FOR COPD 02/28/2024 02/27/2023 DTaP,Tdap,and Td Vaccines (4 - Td or [...] as of this encounter Visit Diagnoses Diagnosis HTN, goal to be determined Unspecified essential hypertension Stage 3 chronic kidney disease, unspecified whether stage 3a or 3b CKD (HCC) Type 2 diabetes mellitus with hemoglobin A1c goal of less than 8.0% (HCC) Diarrhea, unspecified type Heme positive stool Nonspecific abnormal finding in stool contents MARIELLA (acute kidney injury) (HCC) Acute kidney failure, unspecified Hematochezia Blood in stool Chronic pain syndrome Type 2 diabetes mellitus with diabetic mononeuropathy, without long-term current use of insulin (HCC) Vitamin D deficiency Unspecified vitamin D deficiency documented in this encounter Advance Directives Latest [...] the patient have Health Care Power of Magazine Filler? No Healthcare Agents on File Name Relationship Healthcare Agent [facility] Hospital[facility] p Communication Lacy Tong Adult Child Health Care Repr esentative (appointed verbally by patient or by statute hierarchy) Care Teams Interventional Physician Relationship Specialty Start Date End Date Roman Ennis III, MD [address] [facility] [place] [address] PCP - General Family Medicine 06/28/18 documented as of this encounter
--- OUTSIDE RECORDS SUMMARY | 2023-06-29 05:33 | External Medical Summary ---
Author Name Unknown Address Unknown Organization K01:[place] [facility] [place] [address] [facility] [address] Laboratory Report Ordering Provider Test Date Status MARY MENDEZ 03/02/2023 09:17:16 Final Cutoff Concentrations:
Drug Level
Amphetamines 500 ng/mL
Benzodiazepines 100 ng/mL
Cannabinoids 50 ng/mL
Cocaine Metabolite 150 ng/mL
Fentanyl 1 ng/mL
Hydrocodone / Hydromorphone 300 ng/mL
Methadone Metabolite 100 ng/mL
Morphine / Codeine 300 ng/mL
Oxycodone / Oxymorphone 100 ng/mL

Screening results are presumptive and can only be used for medical purposes. Positive screening results are reflexed to confirmatory testing. Observation Date Value Abnormality Reference (Units ) Status Amphetamines, Urine screen 03/02/2023 09:17:16 Negative Negative Final Benzodiazepines, Urine screen 03/02/2023 09:17:16 Negative Negative Final Cannabinoids, Urine screen 03/02/2023 09:17:16 Negative Negative Final Cocaine Metabolite, Urine screen 03/02/2023 09:17:16 Negative Negative Final fentaNYL [Presence] in Urine by Screen method 03/02/2023 09:17:16 Negative Negative Final HYDROcodone [Presence] in Urine by Screen method 03/02/2023 09:17:16 Negative Negative Final 8-Idhukmpdpa-8,5-Dimeth yl-3,3-Diphenylpyrrolid ine (EDDP) [Presence] in Urine 03/02/2023 09:17:16 Negative Negative Final Opiates, Urine screen 03/02/2023 09:17:16 Negative Negative Final oxyCODONE [Presence] in Urine by Screen method 03/02/2023 09:17:16 Positive Abnormal Negative Final Performing Location LABORATORY [facility] - [address] [facility] [address]
--- OUTSIDE RECORDS SUMMARY | 2023-06-29 05:33 | External Medical Summary ---
Author Name Unknown Address Unknown Organization K01:[place] [facility] [place] [address] [place] [address] Laboratory Report Ordering Provider Test Date Status SANTI RAMOS 03/02/2023 09:17:16 Final Observation Date Value Abnormality Reference (Units ) Status Vitamin B12 03/02/2023 09:17:16 [phone] (pg/mL) Final Performing Location [place] [facility] [place] [address] [place] [address]
--- OUTSIDE RECORDS SUMMARY | 2023-06-29 05:33 | External Medical Summary ---
Author Name Unknown Address Unknown Organization K01[place] [facility] [place] [address] [place] [address] Laboratory Report Ordering Provider Test Date Status SANTI RAMOS 03/02/2023 09:17:16 Final Observation Date Value Abnormality Reference (Units ) Status TSH 03/02/2023 09:17:16 0.85 0.27-4.20 (uIU/mL) Final Performing Location LABORATORY [facility] - [address] [place] [address]
--- OUTSIDE RECORDS SUMMARY | 2023-06-29 05:33 | External Medical Summary ---
Author Name Unknown Address Unknown Organization K01[place] [facility] [place] [address] [place] [address] Laboratory Report Ordering Provider Test Date Status MARY MENDEZ 03/02/2023 09:17:16 Final Observation Date Value Abnormality Reference (Units ) Status BUN 03/02/2023 09:17:16 37 Above high normal 6-20 (mg/dL) Final Creatinine 03/02/2023 09:17:16 1.5 Above high normal 0.5-1.0 (mg/dL) Final Glomerular filtration rate/1.73 sq M.predicted [Volume Rate/Area] in Serum, Plasma or Blood by Creatinine-based formula (CKD-EPI) 03/02/2023 09:17:16 36 Below low normal >=60 (mL/min) Final eGFR is calculated based on the CKD-EPI 2020 equation SODIUM 03/02/2023 09:17:16 138 135-146 (m mol/L) Final Potassium 03/02/2023 09:17:16 5.6 Above high normal 3. 5-5.1 (mmol/L) Final Cl 03/02/2023 09:17:16 102 98-107 (mm ol/L) Final CO2 03/02/2023 09:17:16 24 22-32 (mmo l/L) Final Anion gap 03/02/2023 09:17:16 12 7-15 (mmol /L) Final Glucose 03/02/2023 09:17:16 98 70-120 (mg /dL) Final Albumin 03/02/2023 09:17:16 4.6 3.8-5.0 (g /dL) Final AST (Aspartate aminotransferase) 03/02/2023 09:17:16 12 10-35 (U/L) Fin al Alk Phos 03/02/2023 09:17:16 64 35-130 (U/ L) Final Bilirubin, Total 03/02/2023 09:17:16 0.3 <=1 .2 (mg/dL) Final Calcium 03/02/2023 09:17:16 9.3 8.4-10.2 ( mg/dL) Final Protein 03/02/2023 09:17:16 6.9 6.0-8.3 (g /dL) Final ALT (Alanine aminotransferase) 03/02/2023 09:17:16 15 10-35 (U/L) David bailey Performing Location [facility] [place] [facility] [address] [facility] [address]
--- OUTSIDE RECORDS SUMMARY | 2023-06-29 05:33 | External Medical Summary ---
Author Name Unknown Address Unknown Organization K01:[place] [facility] [place] [address] [place] [address] Laboratory Report Ordering Provider Test Date Status SANTI RAMOS 03/02/2023 09:17:16 Final Observation Date Value Abnormality Reference (Units ) Status Iron 03/02/2023 09:17:16 38 33-151 (ug/dL) Final Iron-binding capacity 03/02/2023 09:17:16 498 Above high normal 250-425 (ug/dL) Final Transferrin Sat % 03/02/2023 09:17:16 8 Below low normal 15-55 (%) Final Performing Location [facility] [place] [address] [place] [address]
--- OUTSIDE RECORDS SUMMARY | 2023-06-29 05:33 | External Medical Summary ---
Author Name Unknown Address Unknown Organization K01:[facility] [place] [facility] [address] [place] [address] Laboratory Report Ordering Provider Test Date Status ANABELLE BREWER 03/02/2023 09:17:16 Final Normal: <30 mg/g creatinine< br/>High: 30-300 mg/g creatinine
Very High: >300 mg/g creatinine
Nephrotic: >2200 mg/g creatinine Observation Date Value Abnormality Reference (Units ) Status Albumin, Urine 03/02/2023 09:17:16 2.31 (mg/dL) Final Creatinine, Urine 03/02/2023 09:17:16 85 (mg/dL) Final Albumin/Creatinine [Mass Ratio] in Urine 03/02/2023 09:17:16 27 <30 (mg/g Creat) Final Performing Location LAB[facility] [place] [address] [place] [address]
--- OUTSIDE RECORDS SUMMARY | 2023-06-29 05:33 | External Medical Summary ---
Author Name Unknown Address Unknown Organization K01:LABORATORY [facility] [place] - [address] [place] [address] Laboratory Report Ordering Provider Test Date Status SANTI RAMOS 03/02/2023 09:17:16 Final Observation Date Value Abnormality Reference (Units ) Status Ferritin 03/02/2023 09:17:16 22 13-150 (ng /mL) Final Postmenopausal women have hi gher ferritin levels than pre-menopausal women. The above reference interval is based on pre-menopausal women. Performing Location LABORATORY [facility] [place] - [address] [place] [address]
--- OUTSIDE RECORDS SUMMARY | 2023-06-29 05:33 | External Medical Summary | Summary of Care ---
Author Name Unknown Organization [facility] Address [address] [place] [address] Phone [phone] Care Team Providers Care Credit Support Counselor Name Role Phone Loli NORWOOD MD, Roman Barraza Primary Care Provider [phone] Reason for Visit * Reason Onset Date Comments Follow Up 03/09/2023 Encounter Details Date Type Department Care Team Description 03/09/2023 Telephone [facility] [address] [place] [phone] Areli Washburn RN [address] [place] [address] Follow Up Allergies Active Allergy Reactions Severity Noted Date Comments Isosorbide Mononitrate 12/24/2007 Severe headaches Nsaids 05/29/2002 Tramadol Hcl Nausea/vomiting Low 01/09/2008 UGI distress documented as of this encounter (statuses as of 03/09/2023) Medications Medication Sig Dispensed Refills Start Date [...] THREE doses 25 Tablet 5 3 Active Apixaban 5 MG Oral Tablet (Eliquis) Take 1 Tablet by mouth 2 times a day. 60 Tablet 3 3 Active cloNIDine HCl 0.1 MG Oral Tablet (Catapres) Take 0.5 Tablets by mouth in the morning. 15 Tablet 11 3 Active Clopidogrel Bisulfate 75 MG Oral Tablet (Plavix) Take 1 Tablet by mouth in the morning. 30 Tablet 5 3 Active Furosemide 40 MG Oral Tablet (Lasix) Take 1 Tablet by mouth in the morning. 30 Tablet 11 3 Active Gabapentin 300 MG Oral Capsule (Neurontin) Take 1 Capsule by mouth in the morning and 1 Capsule at noon and 1 Capsule before bedtime. 90 Capsule 11 3 Active hydrOXYzine HCl 25 MG Oral Tablet TAKE ONE TABLET BY MOUTH THREE TIMES DAILY NEEDED FOR ANXIETY 90 Tablet 2 3 Active Lisinopril 20 MG Oral Tablet (Prinivil)Indicati ons:HTN, goal to be determined Take 1 Tablet by mouth in the morning. 90 Tablet 3 3 Active Pantoprazole Sodium 40 MG Oral Tablet Delayed Release (Protonix)Indicati ons:Abdominal pain, epigastric TAKE ONE TABLET BY MOUTH DAILY 30 MINUTES BEFORE FIRST meal of THE DAY 90 Tablet 3 3 Active Potassium Chloride Kim ER 20 MEQ Oral Tablet Extended Release Take 1 Tablet by mouth in the morning. 30 Tablet 11 3 Active traZODone HCl 50 MG Oral [...] the morning. 90 Tablet 5 3 Active Pantoprazole Sodium 40 MG Oral [...] before bedtime. 0 3 023 Discontinued(Re fill) traZODone HCl 50 MG Oral Tablet (Desyrel) [...] as of this encounter (statuses as of 03/09/2023) Active Problems Problem Noted Date Atrial fibrillation [...] 2019 Trigger ring finger of left hand 08/07/2 020 HTN, goal to be determined 07/23/2019 COPD, group C, by GOLD 2017 classificati on 06/03/2019 Overview: Per COPD GOLD Classification History of ischemic cardiomyopathy 07/18 Kidney disease, chronic, stage III (GFR 30-59 ml/min) 05/11/2018 Coronary artery disease invo lving zuni coronary artery of zuni heart without angina pectoris 05/08/2018 Anxiety state [...] Overview: Modified by [place] Protocol [place]5. [facility] bare metal stents S/P angioplasty with stent 09/07/2006 History of tobacco use documented as of this encounter (statuses as of 03/09/2023) Resolved Problems Problem Noted Date Resolved Date [...] for Patients with Cardiovascular Disease Project #: [id number] PI: Peyton Conn MD [phone] GENOMICS CARDIO RESEARCH OTHER*[id number] 200606/28/2016 Overview: Renamed Per Clinical Trials Billing Project. Study Title: Genomic Markers for Patients with Cardiovascular Disease Project #: [id number] PI: Peyton Conn MD [phone] LV (left ventricular) mural thrombus 10/30/2006 12/28/2017 Tobacco use disorder 09/07/2006 06/09/2009 Acute inferior myocardial infarction 08/19/2006 12/11/2008 Overview: Modified by [place] Protocol #5. [facility] [place] coronary bare metal stents EXAMINATION OF PARTICIPANT IN CLINICAL TRIAL - H ORIZONS 08/19/2006 09/04/2009 Overview: Renamed Per Clinical Trials Billing Project. [facility] AMI clinical trial 263 Single blind trial comparing heparin and IIB/IIIA with bivalirudin, and Taxus vs bare metal stent. Patient Follow-up for 5 years Distribution Specialist: Trent Verduzco [phone] [facility] Clinical Trial*[id number] 08/19/2006 09/08/2014 Overview: Renamed Per Clinical Trials Billing Project. [facility] AMI clinical trial 2004- 9255 Single blind trial comparing heparin and IIB/IIIA with bivalirudin, and Taxus vs bare metal stent. Patient Follow-up for 5 years Distribution Specialist: Trent Verduzco [phone] Menopause 08/29/2002 02/23/2017 LOC PRIM [id number] 05/29/2002 07/18/19 19 Dyslipidemia, goal to be determined 05/29/2002 05/07/2009 Overview: Per Lipid Taxonomy. FAM HX-DIABETES MELLITUS 05/29/2002 017 cystocoele 09/29/2017 Prolapse of vaginal celeste 2017 Overview: ICD-10 update of inactive term LEFT BB BLOCK NEC 07/18/2018 Other specified forms of chronic ischemic heart disease 02/23/2017 documented as of this encounter (statuses as of 03/09/2023) Immunizations Name Administration Dates Next Due COVID-19 [...] Telephone Encounter - Areli Washburn RN - 03/09/2023 8:[address] Ennis, Patient seen for [facility] enrollment yesterday. Bottle out medication review- several medications missing. Metoprolol, Gabapentin, Effexor. DIL filling pill boxes weekly. Spoke with patient and DIL- both in agreement to get pill packs from [facility] pharmacy. Patient wishes not to take Effexor at this time as it has been at least 2 months that she knows that she has taken it. Can you please change Metoprolol to 25mg daily and Atorvastatin to 20mg daily? These will need sentonce changed. I pended all the other medications. Please send to [facility] pharmacy. Also, please see 03/02- labs. Potassium level 5.6- We placed her potassium on hold. Hemoglobin 8.9-Mobile lab referral- will be repeating BMP and CBC in one week. Thanks so much! Areli documented in this encounter Plan of Treatment Upcoming Encounters Date Type Specialty Care Team Description 03/10/2023 Laboratory Laboratory Processing [facility] [address] [facility] [address] 03/20/2023 Telemedicine [facility] Timoteo Duggan PA-Geovanny [address] [facility] [place] [address] Cortney Benoit, Community Health Apiculturist [address] [place] [address] [place] [address] 03/24/2023 Home Visit [facility] Areli Washburn RN [address] [place] [address] 04/19/[address] [facility] [address] [place] [address] Health Maintenance Due Date Last Done Comments DISCUSS TOBACCO CESSATION (REFER TO SMARTSET #3500) 1945 Alpha-1 Antitrypsin 1965 DIABETES-EYE EXAM 1965 Diabetic Foot Exam 1965 DXA Scan 09/04/2016 09/04/2013, 09/04/2013 *ADVANCE DIRECTIVE NOT ON FILE 06/09/2019 COVID-19 Vaccine ( season) 2023 11/12/2020, 10/01/2020 Depression Screening 06/02/2023 06/02/2022 GFR 09/01/2023 03/02/2023, 09/19, 02/21/2022, Additional history exists HbA1c 09/01/2023 03/02/2023, 12/21, 08/19/2006, Additional history exists Albumin/Creatinine Ratio 03/02/2024 023, 02/21/2022, 07/23/2019 CKD HGB USE SMARTSET 38285 03/02/202403/02, 03/02/2023, 10/07/2022, Additional history exists CKD PHOS USE SMARTSET 17441 03/02/202402/19, 10/07/2022, 02/21/2022, Additional history exists O2 ASSESSMENT COMPLETED IN PAST YEAR FOR COPD 03/08/2024 03/08/2023 DTaP,Tdap,and Td Vaccines (4 - Td or [...] goal to be determined Unspecified essential hypertension Abdominal pain, epigastric documented in this encounter Advance Directives Latest [...] the patient have Health Care Power of Broadcast Operations Manager? No Healthcare Agents on File Name Relationship Healthcare Agent Relationshi p Communication Lacy Tong Adult Child Health Care Repr esentative (appointed verbally by patient or by statute hierarchy) Care Teams Credit Support Counselor Relationship Specialty Start Date End Date Loli NORWOOD, Roman Barraza MD [address] [place] [address], [place] [address] PCP - General Family Medicine 06/28/18 documented as of this encounter
--- OUTSIDE RECORDS SUMMARY | 2023-06-29 05:33 | External Medical Summary ---
Author Name Unknown Address Unknown Organization [id number]:LABORATORY [facility] [place] - [address] [place] [address] Laboratory Report Ordering Provider Test Date Status SANTI RAMOS 03/02/2023 09:17:16 Final Observation Date Value Abnormality Reference (Units ) Status WBC, Total 03/02/2023 09:17:16 4.58 4.00-10.8 0 (K/uL) Final RBC 03/02/2023 09:17:16 3.04 3.85-5.15 (M/uL) Final Hemoglobin 03/02/2023 09:17:16 8.9 Below low normal 12 .0-15.3 (g/dL) Final Anemia reflex testing trigge rs on a HGB < 12.0 for Females and HGB < 13.0 for Males in accordance with the WHO Anemia Guidelines
Anemia reflex testing triggers on a HGB < 12.0 for Females and HGB < 13.0 for Males in accordance with the WHO Anemia Guidelines HCT 03/02/2023 09:17:16 29.8 Below low normal 36. 0-45.2 (%) Final MCV 03/02/2023 09:17:16 98.0 81.5-97.5 (fL) Final MCH 03/02/2023 09:17:16 29.3 27.0-34.0 (pg) Final MCHC 03/02/2023 09:17:16 29.9 32.0-36.0 (g/dL) Final RDW 03/02/2023 09:17:16 17.0 11.5-15.5 (%) Final Platelets 03/02/2023 09:17:16 276 140-400 (K /uL) Final MPV 03/02/2023 09:17:16 10.7 6.6-11.1 ( fL) Final Nucleated erythrocytes/100 leukocytes [Ratio] in Blood by Automated count 03/02/2023 09:17:16 0 <=0 (/100 WBCs) Final Performing Location LABORATORY [facility] [place] - [address] [facility] [address]
--- OUTSIDE RECORDS SUMMARY | 2023-06-29 05:33 | External Medical Summary ---
Author Name Unknown Address Unknown Organization [id number]:LABORATORY [facility] [place] - [address] [place] [address] Laboratory Report Ordering Provider Test Date Status SANTI RAMOS 03/02/2023 09:17:16 Final Observation Date Value Abnormality Reference (Units ) Status Retic, % (auto) 03/02/2023 09:17:16 2.30 Above high normal 0.80-1.90 (%) Final Reticulocytes, Absolute 03/02/2023 09:17:16 69.5 31.3-100.1 (K/uL) Final Reticulocyte HGB 03/02/2023 09:17:16 25.9 Below low normal 29.7-37.4 (pg) Final Performing Location LABORATORY [facility] - [address] [place] [address]
--- OUTSIDE RECORDS SUMMARY | 2023-06-29 05:33 | External Medical Summary ---
Author Name Unknown Address Unknown Organization [id number]:[facility]AT[facility] - [address] [place] [address] Laboratory Report Ordering Provider Test Date Status SANTI RAMOS 03/02/2023 09:17:16 Final Observation Date Value Abnormality Reference (Units ) Status SYNC LEUKOCYTES IN BLOOD BY AUTOMATED COUNT 03/02/2023 09:17:16 4.58 4.00-10.80 (K/uL) Final Segs 03/02/2023 09:17:16 50.6 40.0-75.0 (%) Final Lymphs % 03/02/2023 09:17:16 31.0 18.0-42.0 (%) Final Monos 03/02/2023 09:17:16 14.4 Above high normal 1.0-11.0 (%) Final Eosinophils 03/02/2023 09:17:16 3.1 0.0-6.0 (%) Final Basos 03/02/2023 09:17:16 0.7 0.0-2.0 (%) Final Immature Granulocyte, Percent 03/02/2023 09:17:16 0.2 0.0-2.0 (%) Final Absolute Segs 03/02/2023 09:17:16 2.32 1.80-7.70 (K/uL) Final Lymphs, absolute 03/02/2023 09:17:16 1.42 1.00-4.80 (K/ul) Final Monos, Abs 03/02/2023 09:17:16 0.66 0.00-1.10 (K/uL) Final Eos, Abs 03/02/2023 09:17:16 0.14 0.00-0.70 (K/uL) Final Basos, Abs 03/02/2023 09:17:16 0.03 0.00-0.20 (K/uL) Final Immature Granulocytes, Number 03/02/2023 09:17:16 0.01 0.00-0.20 (K/uL) Final Performing Location LABORATORY [facility] - [address] [facility] [address]
--- OUTSIDE RECORDS SUMMARY | 2023-06-29 05:33 | External Medical Summary ---
Author Name Unknown Address Unknown Organization K01:[facility]ATORY [facility] - [address] [place] [address] Laboratory Report Ordering Provider Test Date Status MARY MENDEZ 03/02/2023 09:17:16 Final Observation Date Value Abnormality Reference (Units ) Status Phosphate 03/02/2023 09:17:16 4.8 2.5-4.8 (m g/dL) Final Performing Location LABORATORY [facility] - [address] [place] [address]
--- OUTSIDE RECORDS SUMMARY | 2023-06-29 05:33 | External Medical Summary ---
Author Name Unknown Address Unknown Organization K01:LABORATORY [facility] [place] - [facility] [address] [facility] [address] Laboratory Report Ordering Provider Test Date Status MARY MENDEZ 03/02/2023 09:17:16 Final Cutoff Concentrations:
D rug Level
Oxycodone 50 ng/mL
Oxymorphone 50 ng/mL

This test was developed and its performance characteristics determined by [facility]. It has not been cleared or approved by the [place] Food and Drug Administration. Observation Date Value Abnormality Reference (Units ) Status METHODOLOGY 03/02/2023 09:17:16 LC-MS/MS Final oxyCODONE cutoff [Mass/volume] in Urine for Confirmatory method 03/02/2023 09:17:16 2439 Above high normal Negative (ng/mL) Final oxyMORphone cutoff [Mass/volume] in Urine for Confirmatory method 03/02/2023 09:17:16 >4000 Above high normal Negative (ng/mL) Final Performing Location LABORATORY [facility] - [facility] [address] [facility] [address]
--- OUTSIDE RECORDS SUMMARY | 2023-06-29 05:34 | External Medical Summary | Summary of Care ---
Author Name Unknown Organization [facility] Address [address] [place] [address] Phone [phone] Care Team Providers Care Diamond Setter Name Role Phone Loli NORWOOD MD, Marilyn Barraza Primary Care Provider [phone] Reason for Visit * Reason Onset Date Comments Medication Refill 02/22/2023 Encounter Details Date Type Department Care Team Description 02/22/2023 [facility]ill [facility] [address] [place] [address] Marilyn Nogueira III, MD [address] [facility] [place] [address] Allergies Active Allergy Reactions Severity Noted Date Comments Isosorbide Mononitrate 12/24/2007 Severe headaches Nsaids 05/29/2002 Tramadol Hcl Nausea/vomiting Low 01/09/2008 UGI distress documented as of this encounter (statuses as of 02/23/2023) Medications Medication Sig Dispensed Refills Start Date End Date Status Aspirin 81 MG TabletIndications:F /u of acute inferior myocardial infarction Take 1 Tablet by mouth in the morning. 0 03/03/2017 Active nitroglycerin (NITROSTAT) 0.4 MG SUBLIndications:ASC VD (arteriosclerotic cardiovascular disease),Chest pain, unspecified type one tab under tongue as needed for chest pain maximum 3 doses 25 Tab 5 01/04/2019 Active Anoro Ellipta 62.5-25 MCG/INH Inhalation Aerosol [...] 2022 Active Lisinopril 20 MG Oral Tablet (Prinivil)Indicatio ns:HTN, goal to be determined TAKE ONE TABLET BY MOUTH EVERY DAY 90 Tablet 3 04/26/2022 Active Gabapentin 300 MG Oral Capsule (Neurontin) Take 1 Capsule by mouth in the morning and 1 Capsule at noon and 1 Capsule before bedtime. 90 Capsule 11 06/02/2022 Active Atorvastatin Calcium 40 MG Oral Tablet (Lipitor) TAKE ONE TABLET BY MOUTH EVERY DAY 90 Tablet 1 06/27/2022 Active Additional Information Patient taking differently: 20 mg, Reported on 10/19/2022 Metoprolol Succinate ER 100 MG Oral Tablet Extended Release 24 Hour (toPROL XL)Indications:Acut e inferior myocardial infarction (HCC),ASCVD (arteriosclerotic cardiovascular disease) TAKE ONE TABLET BY MOUTH EVERY DAY 90 Tablet 1 06/27/2022 Active levETIRAcetam 500 MG Oral Tablet (Keppra) [...] mouth in the morning. 30 Tablet 11 10/19/2022 Active Potassium Chloride Kim ER 20 MEQ Oral Tablet Extended Release TAKE ONE TABLET BY MOUTH EVERY DAY 30 Tablet 10/21/2022 Active Ondansetron HCl 4 MG Oral Tablet (Zofran)Indications :Nausea Take 1 Tablet by mouth every 8 hours as needed for Nausea. 20 Tablet 0 01/03/2023 Active hydrOXYzine HCl 25 MG Oral Tablet TAKE ONE TABLET BY MOUTH THREE TIMES DAILY NEEDED FOR ANXIETY 90 Tablet 2 01/04/2023 Active Clopidogrel Bisulfate 75 MG Oral Tablet (Plavix) Take 1 Tablet by mouth in the morning. 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 60 Tablet 1 02/23/2023 Active Apixaban 5 MG Oral Tablet (Eliquis) Take 1 Tablet by mouth 2 times a day. 0 10/09/2022 02/23/20 23 Discontinu ed(Refill) documented as of this encounter (statuses as of 02/23/2023) Active Problems Problem Noted Date Hypertensive heart and kidne y disease with [...] ml/min) 05/11/2018 Coronary artery disease invo lving [place] coronary artery of [place] heart without angina pectoris 05/08/2018 Anxiety state [...] MYOCARDIAL INFARCT 12/11/2008 Overview: Modified by Acute [place] Protocol [place] [facility] [place] coronary bare metal stents S/P angioplasty with stent 09/07/2006 History of tobacco use documented as of this encounter (statuses as of 02/23/2023) Resolved Problems Problem Noted Date Resolved Date [...] for Patients with Cardiovascular Disease Project #: [id number] PI: Peyton Conn MD [phone] GENOMICS CARDIO RESEARCH OTHER*[id number] 200606/28/2016 Overview: Renamed Per Clinical Trials Billing Project. Study Title: Genomic Markers for Patients with Cardiovascular Disease Project #: [id number] PI: Peyton Conn MD [phone] LV (left ventricular) mural thrombus 10/30/2006 12/28/2017 Tobacco use disorder 09/07/2006 06/09/2009 Acute inferior myocardial infarction 08/19/2006 12/11/2008 Overview: Modified by Acute [place] Protocol [place]5. [facility] [place] coronary bare metal stents EXAMINATION OF PARTICIPANT IN CLINICAL TRIAL - H ORIZONS 08/19/2006 09/04/2009 Overview: Renamed Per Clinical Trials Billing Project. [facility] AMI clinical trial 263 Single blind trial comparing heparin and IIB/IIIA with bivalirudin, and Taxus vs bare metal stent. Patient Follow-up for 5 years Robotic Technician: Trent Verduzco [phone] [facility] Clinical Trial*[id number] 08/19/2006 09/08/2014 Overview: Renamed Per Clinical Trials Billing Project. Horizon AMI clinical trial 263 Single blind trial comparing heparin and IIB/IIIA with bivalirudin, and Taxus vs bare metal stent. Patient Follow-up for 5 years Robotic Technician: Trent [place] Verduzco [phone] Menopause 08/29/2002 02/23/2017 LOC PRIM [id number] 05/29/2002 07/18/19 19 Dyslipidemia, goal to be determined 05/29/2002 05/07/2009 Overview: Per Lipid Taxonomy. FAM HX-DIABETES MELLITUS 05/29/2002 017 cystocoele 09/29/2017 Prolapse of vaginal celeste 2017 Overview: ICD-10 update of inactive term LEFT BB BLOCK NEC 07/18/2018 Other specified forms of chronic ischemic heart disease 02/23/2017 documented as of this encounter (statuses as of 02/23/2023) Immunizations Name Administration Dates Next Due COVID-19 [...] Encounter - Marilyn Nogueira III, MD - 02/23/2023 7:37 AM EDTSigned Prescriptions: Disp Refills Apixaban 5 MG Oral Tablet (Eliquis) 60 Tab*1 Sig: Take 1 Tabletby mouth 2 times a day.Authorizing Provider: MARILYN NOGUEIRA III * Telephone Encounter - Lisa Escobar LPN - 02/22/2023 4:31 PM EDT Pending Prescriptions: Disp Refills Apixaban 5 MG Oral Tablet (Eliquis) 60 Tab*1 Sig: Take 1 Tablet by mouth 2 times a day. * Telephone Encounter - Lisa Escobar LPN - 02/22/2023 4:31 PM EDT Pending Prescriptions: Disp Refills Apixaban 5 MG Oral Tablet (Eliquis) 60 Tab*1 Sig: Take 1 Tablet by mouth 2 times a day. Last Visit: 01/04/2023 (in office), 08/24/2020 (telemedicine) Next Visit: 02/27/2023 Last date the medication was ordered: 10/09/2022 Patient Active Problem List Diagnosis Code ADVANCE [...] Vaginal atrophy N95.2 Coronary artery disease involving [place] coronary artery of [place] heart without angina pectoris I25.10 Anxiety state F41.1 Kidney disease, chronic, stage III (GFR 30-59 ml/min) ([facility]) N18.30 History of ischemic cardiomyopathy Z86.79 COPD, group C, by GOLD 2017 classification ([facility]) J44.9 HTN, goal to be determined I10 [...] limb, nondominant side S/P CVA (cerebrovascular acc) ([facility]) I69.339 Right leg DVT ([facility]) I82.401 Hypertensive heart and kidney disease 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 and stage 3 chronic kidney disease ([facility]) I13.0, I50.42, N18.30 Labs: Lab Results Component Value Date/Time CREATININE - [facility] 1.4 (H) 02/21/2022 03:23 PM CREATININE - [facility] 1.1 (H) 02/17/2020 01:00 PM CREATININE, RANDOM URINE - [facility] 28 02/21/2022 03:23 PM CREATININE, RANDOM URINE - [facility] 120 07/23/2019 04:48 PM CREATININE-OUTSIDE LAB 0.75 10/07/2022 12:00 AM Lab Results Component Value Date/Time POTASSIUM - [facility] 4.8 02/21/2022 03:23 PM POTASSIUM - [facility] 4.5 02/17/2020 01:00 PM POTASSIUM-OUTSIDE LAB 3.8 10/07/2022 12:00 AM Lab Results Component Value Date/Time TSH - [facility] 0.79 04/04/2017 11:34 AM Lab Results Component Value Date/Time LDL CHOLESTEROL (CALCULATED) - [facility] 54 02/21/2022 03:23 PM LDL CHOLESTEROL (CALCULATED) - [facility] 75 04/04/2017 11:34 AM LDL CHOLESTEROL (CALCULATED) - [facility] 67 04/14/2014 03:31 PM LDL CHOLESTEROL (DIRECT MEASURE) - [facility] 150 (H) 07/18/2018 12:17 PM LDL CHOLESTEROL (DIRECT MEASURE) - [facility] NOT APPLICABLE 04/04/2017 11:34 AM LDL CHOLESTEROL (DIRECT MEASURE) - [facility] 78 04/14/2014 03:31 PM LDL CHOLESTEROL (DIRECT MEASURE) - [facility] NOT APPLICABLE 04/14/2014 03:31 PM Lab Results Component Value Date/Time ALT - [facility] 15 02/21/2022 03:23 PM ALT - [facility] 12 02/17/2020 01:00 PM ALT LIVER FIB PANEL 28 08/03/2017 09:12 AM Hemoglobin AIC Results: Lab Results Component Value Date/Time HEMOGLOBIN A1C - [facility] 6.4 (H) 01/15/2007 11:30 AM HEMOGLOBIN A1C - [facility] 6.2 (H) 08/19/2006 01:46 AM HEMOGLOBIN A1C - [facility] 5.9 05/29/2002 10:33 AM * Telephone Encounter - KRISTIE Duran - 02/22/2023 1:12 PM EDT pt calling requesting the following medication below that is listed as "Historical". The following information was provided: Pt not sure if she is to continue this medication Medication Name: eliquis Strength: 5 mg Directions: bid Preferred Quantity: 60 Previous Prescriber: laci Salinas Pharmacy: Annabelle Huizar Please review and approve if appropriate. Thank you, Ana Santiago, [facility] [employer] [facility])(Formerly Telepharmacy) 02/22/2023,1:13 PM documented in this encounter Plan of Treatment Upcoming Encounters Date Type Specialty Care Team Description 02/27/2023 Scheduled Telephone [facility] [place], [facility] [address] [place] [address] 02/27/2023 Office Visit Family Medicine Xuan Xie, DO [address] [facility] [place] [place] [address] 04/19/2023 Office Visit Pharmacy [facility] [address] [place] [address] Health Maintenance Due Date Last Done Comments DISCUSS TOBACCO CESSATION (REFER TO SMARTSET #4376) 1945 Alpha-1 Antitrypsin 1965 DIABETES-EYE EXAM 1965 Diabetic Foot Exam 1965 HbA1c 07/18/2007 01/15/2007, 07/22, 05/29/2002 DXA Scan 09/04/2016 09/04/2013, 09/04/2013 *ADVANCE DIRECTIVE NOT ON FILE 06/09/2019 COVID-19 Vaccine ( season) 2023 11/12/2020, 10/01/2020 Influenza Vaccine (FLU shot) (#1) 2023 02/21/2022, 02/03/2020, 01/31/2019, Additional history exists Albumin/Creatinine Ratio 02/21/2023 02/21/2022, 07/2019 GFR 04/09/2023 10/07/2022, 07/2021, 12/09/2020, Additional history exists Depression Screening 06/02/2023 06/02/2022 CKD HGB USE SMARTSET 10721 10/08/202310/07, 02/21/2022, 12/09/2020, Additional history exists CKD PHOS USE SMARTSET 22984 10/08/202309/19, 02/21/2022, 07/18/2018 O2 ASSESSMENT COMPLETED IN PAST YEAR FOR COPD 01/05/2024 01/04/2023 DTaP,Tdap,and Td Vaccines (4 - Td or Tdap) 06/02/2032 06/02/2022, 02/11/2011, 05/22/1995 Colonoscopy Discontinued 08/28/2012 Colorectal Cancer Screening Discontinued Pneumococcal Vaccine: 65+ Years Completed 02/23/2017, 10/22/2014, 02/26/2007 Hepatitis B Completed 04/02/2018, 09/19, 07/24/2017 Zoster Vaccines Completed 01/20/2020, 07/23/2019 Cologuard Discontinued Fecal Occult Blood Test Discontinued [...] the patient have Health Care Power of Rail Filler? No Healthcare Agents on File Name Relationship Healthcare Agent Relationshi p Communication Lacy Tong Adult Child Health Care Repr esentative (appointed verbally by patient or by statute hierarchy) Care Teams Diamond Setter Relationship Specialty Start Date End Date Marilyn Nogueira III, MD [address] [place] [address] PCP - General Family Medicine 06/28/18 documented as of this encounter
--- OUTSIDE RECORDS SUMMARY | 2023-06-29 05:34 | External Medical Summary | Summary of Care ---
Author Name Unknown Organization [facility] Address [address] [place] [address] Phone [phone] Care Team Providers Care Rental Representative Name Role Phone Loli NORWOOD MD, Roman Barraza Primary Care Provider [phone] Reason for Visit * Reason Onset Date Comments [facility]: Enrollment 02/27/2023 Encounter Details Date Type Department Care Team Description 02/27/2023 Scheduled Telephone [facility], [facility] [address] [facility] [place] [address] Coordinator, [facility] [address] [facility] [place] [address] Allergies Active Allergy Reactions Severity Noted Date Comments Isosorbide Mononitrate 12/24/2007 Severe headaches Nsaids 05/29/2002 Tramadol Hcl Nausea/vomiting Low 01/09/2008 UGI distress documented as of this encounter (statuses as of 02/27/2023) Medications Medication Sig Dispensed Refills Start Date End Date Status Aspirin 81 MG TabletIndications:F/ u of acute inferior myocardial infarction Take 1 Tablet by mouth in the morning. 0 03/03/2017 Active nitroglycerin (NITROSTAT) 0.4 MG SUBLIndications:ASCV D (arteriosclerotic cardiovascular disease),Chest pain, unspecified type one [...] a day. 60 Tablet 1 02/23/2023 Active documented as of this encounter (statuses as of 02/27/2023) Active Problems Problem Noted Date Hypertensive heart [...] ml/min) 05/11/2018 Coronary artery disease invo lving [place] coronary artery [place] heart without angina pectoris 05/08/2018 [...] Overview: Modified by Acute [place] Protocol #5. [facility] right coronary bare metal stents S/P angioplasty with stent 09/07/2006 History of tobacco use documented as of this encounter (statuses as of 02/27/2023) Resolved Problems Problem Noted Date Resolved Date [...] 130/80 10/24/2013 7 Ischemic cardiomyopathy 08/07/2012 07/18/19 Warfarin anticoagulation 03/28/2012 017 Abdominal aortic aneurysm 11/04/20102012 Overview: tiny 2.50 cm infrarenal aneurysm seen on xray Repeat US 06/2011 Other nonspecific abnormal c ardiovascular system function study 11/07/2007 10/04/2017 EXAMINATION OF PARTICIPANT IN CLINICAL TRIAL - G ENOMICS 01/15/2007 09/04/2009 Overview: Renamed Per Clinical Trials Billing Project. Study Title: Genomic Markers for Patients with Cardiovascular Disease Project #: [id number] PI: Peyton Conn MD [phone] GENOMICS CARDIO RESEARCH OTHER*[id number] 200606/28/2016 Overview: Renamed Per Clinical Trials Billing Project. Study Title: Genomic Markers for Patients with Cardiovascular Disease Project #: [id number] PI: Peyton Conn MD [phone] LV (left ventricular) mural thrombus 10/30/2006 12/28/2017 Tobacco use disorder 09/07/2006 06/09/2009 Acute inferior myocardial infarction 08/19/2006 12/11/2008 Overview: Modified by Acute [place] Protocol #5. [facility] right coronary bare metal stents EXAMINATION OF PARTICIPANT IN CLINICAL TRIAL - H ORIZONS 08/19/2006 09/04/2009 Overview: Renamed Per Clinical Trials Billing Project. Horizon AMI clinical trial 263 Single blind trial comparing heparin and IIB/IIIA with bivalirudin, and Taxus vs bare metal stent. Patient Follow-up for 5 years Mainframe Systems Programmer: Trent Verduzco [phone] [facility] Clinical Trial*[id number] 08/19/2006 09/08/2014 Overview: Renamed Per Clinical Trials Billing Project. Horizon AMI clinical trial 263 Single blind trial comparing heparin and IIB/IIIA with bivalirudin, and Taxus vs bare metal stent. Patient Follow-up for 5 years Mainframe Systems Programmer: Trent Verduzco [phone] Menopause 08/29/2002 02/23/2017 LOC PRIM [id number] 05/29/2002 07/18/19 19 Dyslipidemia, goal to be determined 05/29/2002 05/07/2009 Overview: Per Lipid Taxonomy. FAM HX-DIABETES MELLITUS 05/29/2002 017 cystocoele 09/29/2017 Prolapse of vaginal celeste 2017 Overview: ICD-10 update of inactive term LEFT BB BLOCK NEC 07/18/2018 Other specified forms of chronic ischemic heart disease 02/23/2017 documented as of this encounter (statuses as of 02/27/2023) Immunizations Name Administration Dates Next Due COVID-19 [...] encounter Miscellaneous Notes * Telephone Encounter - OPAL Simmons - 02/27/2023 8:29 AM EDT [facility] Enrollment Form Screening: Referral Source: [facility] Primary Reason for Referral (Select most relevant): No data was found Engagement: Engagement Attempt 1: Contacted - Agreed to home-based services Scheduled appointment information: Scheduled for 03/08/23 at 2pm with LISA Washburn and 03/20/23 at 1030am with Callie Bond Information: No data was found Advance Care Planning (ACP): No data was found Has Living Will or Advance Directive: No data was found Anticipated Sub-Program: Focused Care Management (3-9 months) Confirmation of Sub-Program Type (by care state farm agent team member): No data was found Handoff Information: Current care team notified via: No data was found Current telemonitoring equipment: No data was found documented in this encounter Plan of Treatment Upcoming Encounters Date Type Specialty Care Team Description 02/27/2023 Office Visit Family Medicine Xuan Xie DO [address] [place] [address] 03/08/2023 Home Visit [facility] Demarco RN [address] [place] [address] 03/20/2023 [facility]medicine [facility] Timoteo Duggan PA-C [address] [facility] [place] [address] Cortney Benoit, [facility] General Assembler [address] [place] [address] [place] [address] 04/19/2023 Office Visit Pharmacy [facility] [address] [place] [address] Health Maintenance Due Date Last Done Comments [...] Additional history exists Albumin/Creatinine Ratio 02/21/2023 02/21/2022, 030 07/2019 GFR 04/09/2023 10/07/2022, 07/2021, 12/09/2020, Additional history exists Depression Screening 06/02/2023 06/02/2022 CKD HGB USE SMARTSET 97825 10/08/202310/07, 02/21/2022, 12/09/2020, Additional history exists CKD PHOS USE SMARTSET 52176 10/08/2023 05/1 01/2023, 02/21/2022, 07/18/2018 O2 ASSESSMENT COMPLETED IN PAST [...] the patient have Health Care Power of Emergency Department Aide? No Healthcare Agents on File Name Relationship Healthcare Agent Relationshi p Communication Lacy Tong Adult Child Health Care Repr esentative (appointed verbally by patient or by statute hierarchy) Care Teams Rental Representative Relationship Specialty Start Date End Date Roman Ennis III, MD [address] [facility] [place] [address] PCP - General Family Medicine 06/28/18 documented as of this encounter
--- OUTSIDE RECORDS SUMMARY | 2023-06-29 05:34 | External Medical Summary ---
Author Name Unknown Address Unknown Organization K01:LABORATORY [facility] - [address] [place] [address] Laboratory Report Ordering Provider Test Date Status MARY MENDEZ 03/02/2023 09:17:16 Final Observation Date Value Abnormality Reference (Units ) Status Parathyrin.intact [Mass/volume] in Serum or Plasma 03/02/2023 09:17:16 76 Above high normal 15-65 (pg/mL) Final Performing Location [facility] - [address] [place] [address]
--- OUTSIDE RECORDS SUMMARY | 2023-06-29 05:34 | External Medical Summary | Summary of Care ---
Author Name Unknown Organization [facility] Address [address] [place] [address] Phone [phone] Care Team Providers Care Er Registrar Name Role Phone Loli NORWOOD MD, Marilyn Barraza Primary Care Provider [phone] Reason for Referral * Medication Prior Authorization - Closed Specialty Diagnoses / Procedures Referred By Xuan bey Referred To Contact Diagnoses Chronic pain syndrome Marilyn Nogueira III, MD [address] [facility] [place] [address] Referral ID Status Reason Start Date Expiration Date Visits Re quested Visits Authorized [id number] Closed 999 999 Reason for Visit * Reason Onset Date Comments Medication Refill 02/22/2023 Encounter Details Date Type Department Care Team Description 02/22/2023 [facility]ill [facility] [place] [address] [place] [address] Marilyn Nogueira III, MD 200 [facility] [place] [address] Chronic pain syndrome Allergies Active Allergy Reactions Severity Noted Date [...] mouth in the morning. 15 Tablet 11 10/19/2022 Active Furosemide 40 MG Oral Tablet (Lasix) Take 1 Tablet by mouth in the morning. 30 Tablet 11 10/19/2022 Active Potassium Chloride Kim ER 20 MEQ Oral Tablet Extended Release TAKE ONE TABLET BY MOUTH EVERY DAY 30 Tablet 11 10/21/2022 Active Ondansetron HCl 4 MG Oral [...] oxyCODONE HCl 5 MG Oral Tablet (Oxy IR)Indications:Irrigator fernando pain syndrome Take 1 Tablet by mouth every 6 hours as needed (pain). 100 Tablet 0 02/26/2023 Active oxyCODONE HCl 5 MG Oral Tablet (Oxy IR)Indications:Irrigator fernando pain syndrome TAKE ONE TABLET BY MOUTH EVERY 6 HOURS NEEDED FOR PAIN 100 Tablet 0 02/02/2023 02/23/20 23 Discontinu ed(Refill) documented as of [...] ml/min) 05/11/2018 Coronary artery disease invo lving [place] coronary artery of [place] heart without angina pectoris 05/08/2018 Anxiety state [...] Modified by Acute [place] Protocol #5. [facility] [...] for Patients with Cardiovascular Disease Project #: [id number] PI: Peyton Conn MD [phone] GENOMICS CARDIO RESEARCH OTHER*[id number] 200606/28/2016 Overview: Renamed Per Clinical Trials Billing Project. Study Title: Genomic Markers for Patients with Cardiovascular Disease Project #: [id number] PI: Peyton Conn MD [phone] LV (left ventricular) mural thrombus 10/30/2006 12/28/2017 Tobacco use disorder 09/07/2006 06/09/2009 Acute inferior myocardial infarction 08/19/2006 12/11/2008 Overview: Modified by Acute [place] Protocol #5. [facility] right coronary bare metal stents EXAMINATION OF PARTICIPANT IN CLINICAL TRIAL - H ORIZONS 08/19/2006 09/04/2009 Overview: Renamed Per Clinical Trials Billing Project. [facility] AMI clinical trial 263 Single blind trial comparing heparin and IIB/IIIA with bivalirudin, and Taxus vs bare metal stent. Patient Follow-up for 5 years Airplane Patroller: Trent Verduzco [phone] [facility] Clinical Trial*[id number] 08/19/2006 09/08/2014 Overview: Renamed Per Clinical Trials Billing Project. [facility] AMI clinical trial 263 Single blind trial comparing heparin and IIB/IIIA with bivalirudin, and Taxus vs bare metal stent. Patient Follow-up for 5 years Airplane Patroller: Trent Verduzco [phone] Menopause 08/29/2002 02/23/2017 LOC PRIM [id number] 05/29/2002 07/18/19 19 Dyslipidemia, goal to be [...] Miscellaneous Notes * Telephone Encounter - Jessy Virk LPN - 02/27/2023 8:59 AM EDTSigned Prescriptions: Disp Refills oxyCODONE HCl 5 MG Oral Tablet (Oxy IR) 100 Ta*0 Sig: Take 1 Tablet by mouth every 6 hours as needed (pain).Authorizing Provider: MARILYN NOGUEIRA III * Telephone Encounter - Marilyn Nogueira III, MD - 02/26/2023 8:06 AM EDTSigned Prescriptions: Disp Refills oxyCODONE HCl 5 MG Oral Tablet (Oxy IR) 100 Ta*0 Sig: Take 1 Tablet by mouth every 6 hours as needed (pain). Authorizing Provider: MARILYN NOGUEIRA III * Telephone Encounter - Susi Wong CPhT - 02/25/2023 8:09 AM EDT Pt calling to check status, She will be out of med Monday. Thanks, Susi Wong CPhT, Tech II [facility] ([facility]) (formerly Telepharmacy) [address] [address] * Telephone Encounter - KRISTIE Bryson Tech - 02/24/2023 2:50 PM EDT Pt calling to check on status of refill request. Caller can be reached at [phone]. Thank You, Earl Keys CPhT Operations Professional II [facility] Services (Formerly Telepharmacy) 02/24/2023, 2:50 PM * Telephone Encounter - Forest Chahal [facility] - 02/23/2023 11:37 AM EDTPending Prescriptions: Disp Refills oxyCODONE HCl 5 MG Oral Tablet (Oxy IR) 100 Ta*0 Sig: Take 1 Tablet by mouth every 6 hours as needed (pain). * Telephone Encounter - Forest Chahal [facility] - 02/23/2023 11:36 AM EDT I have reviewed the patients controlled substance dispensing history in the Prescription Drug Monitoring Program in compliance with the [facility] regulations before prescribing a controlled substance. PDMP checked on 02/23/2023. Pending Prescriptions: Disp Refills oxyCODONE HCl 5 MG Oral Tablet (Oxy IR) 100 Ta*0 Sig: Take 1 Tablet by mouth every 6 hours as needed. Last Visit: 01/04/2023 (in office), 08/24/2020 (telemedicine) Next Visit: 02/27/2023 Date medication was last filled: 02/02/23 Date medication is due for refill: 02/26/23 Pharmacy: [facility], [address] [place] Is this request for a controlled substance? Yes and Urine Drug Screen Not completed Toxicology results: Results for orders placed or performed in visit on 07/18/18 TOX SCREEN, URINE, W/ CONFIRMATION Result Value Amphetamine NEGATIVE Barbiturates NEGATIVE Benzodiazepines NEGATIVE Cannabinoids NEGATIVE Cocaine Metabolite NEGATIVE Morphine / Codeine NEGATIVE METHADONE METABOLITE NEGATIVE OXYCODONE POSITIVE (A) TOX COMMENT THE ABOVE SCREENING RESULTS ARE PRESUMPTIVE AND CAN ONLY BE USED FOR MEDICAL PURPOSES. POSITIVE RESULTS REFLEX TO CONFIRMATORY TESTING. Cutoff Concentration *Note: Due to a large number of results and/or encounters for the requested time period, some results have not been displayed. A complete set of results can be found in Results Review. Please approve if appropriate. Thank You, Forest Cordoba [facility] Clinical Pharmacist Centralized Clinical Pharmacy Services ([facility]PS) (formerly Telepharmacy) 02/23/2023, 11:36 AM * Telephone Encounter - KRISTIE Duran Tech - 02/22/2023 1:09 PM EDT Did you pend patient's preferred pharmacy and medication before forwarding?yes Pharmacy: [facility], [address] [place] Pending Prescriptions: Disp Refills oxyCODONE HCl 5 MG Oral Tablet (Oxy IR) 100 Ta*0 Sig: Take 1 Tablet by mouth every 6 hours as needed. Last Visit: 01/04/2023 (in office), 08/24/2020 (telemedicine) Next Visit: 02/27/2023 If no future appointments scheduled, and last appointment is greater than a year ago, please schedule patient for a follow-up appointment Last date the medication was ordered: 02/02/2023 Is this request for a controlled substance?Yes, What was the last refill date 02/02/2023 w/ quantity 100 and dosage 5 mg and Urine Drug Screen was completed Urine Drug Screen: Results for orders placed or performed in visit on 07/18/18 TOX SCREEN, URINE, W/ CONFIRMATION Result Value Amphetamine NEGATIVE Barbiturates NEGATIVE Benzodiazepines NEGATIVE Cannabinoids NEGATIVE Cocaine Metabolite NEGATIVE Morphine / Codeine NEGATIVE METHADONE METABOLITE NEGATIVE OXYCODONE POSITIVE (A) TOX COMMENT THE ABOVE SCREENING RESULTS ARE PRESUMPTIVE AND CAN ONLY BE USED FOR MEDICAL PURPOSES. POSITIVE RESULTS REFLEX TO CONFIRMATORY TESTING. Cutoff Concentration *Note: Due to a large number of results and/or encounters for the requested time period, some results have not been displayed. A complete set of results can be found in Results Review. Patient Phone Numbers Labs: Lab Results Component Value Date/Time CREAT 0.75 10/07/2022 12:00 AM CREAT 1.1 (H) 02/17/2020 01:00 PM POTASSIUM 3.8 10/07/2022 12:00 AM POTASSIUM 4.5 02/17/2020 01:00 PM TSH 0.79 04/04/2017 11:34 AM LDLCALC 54 02/21/2022 03:23 PM LDLCALC 75 04/04/2017 11:34 AM LDLDIRECT 150 (H) 07/18/2018 12:17 PM ALT 15 02/21/2022 03:23 PM ALT 12 02/17/2020 01:00 PM HGBA1C 6.4 (H) 01/15/2007 11:30 AM documented in this encounter Plan of Treatment Upcoming Encounters Date Type Specialty Care Team Description 02/27/2023 Scheduled Telephone [facility], Jose Ying [address] [place] [address] 02/27/2023 Office Visit Family Medicine Xuan Xie, DO [address] [place] [address] 03/08/2023 Home Visit [facility] Areli Washburn, LISA [address] [place] [address] 03/20/2023 Telemedicine [facility] Timoteo Duggan PA-C [address] [facility] [place] [address] Cortney Benoit, Community Health Skid Wrapper [address] [place] [address] [place] [address] 04/19/[address] [facility] Lori [address] [place] [address] Health Maintenance Due Date Last Done Comments DISCUSS TOBACCO CESSATION (REFER TO SMARTSET #3606) 1945 Alpha-1 Antitrypsin 1965 DIABETES-EYE EXAM 1965 Diabetic Foot Exam 1965 HbA1c 07/18/2007 01/15/2007, 07/22, 05/29/2002 DXA Scan 09/04/2016 09/04/2013, 09/04/2013 *ADVANCE DIRECTIVE NOT ON FILE 06/09/2019 COVID-19 Vaccine ( season) 2023 11/12/2020, 10/01/2020 Influenza Vaccine (FLU shot) (#1) 2023 02/21/2022, 02/03/2020, 01/31/2019, Additional history exists Albumin/Creatinine Ratio 02/21/2023 02/21/2022, 03/0 07/2019 GFR 04/09/2023 10/07/2022, 10/0 07/2021, 12/09/2020, Additional history exists Depression Screening 06/02/2023 06/02/2022 CKD HGB USE SMARTSET 17983 10/08/202310/07, 02/21/2022, 12/09/2020, Additional history exists CKD PHOS USE SMARTSET 23549 10/08/202309/19, 02/21/2022, 07/18/2018 O2 ASSESSMENT COMPLETED IN [...] the patient have Health Care Power of Aurist? No Healthcare Agents on File Name Relationship Healthcare Agent Relationshi p Communication Lacy Tong Adult Child Health Care Repr esentative (appointed verbally by patient or by statute hierarchy) Care Teams Er Registrar Relationship Specialty Start Date End Date Marilyn Nogueira III, MD [address] [place] [address], [place] [address] PCP - General Family Medicine 06/28/18 documented as of this encounter
--- OUTSIDE RECORDS SUMMARY | 2023-06-29 05:34 | External Medical Summary | Summary of Care ---
Author Name Unknown Organization [facility] Address [address] [place] [address] Phone [phone] Care Team Providers Care Metal Hanging Helper Name Role Phone Loli NORWOOD MD, Marilyn Barraza Primary Care Provider [phone] Reason for Referral * Medication Prior Authorization - Closed Specialty Diagnoses / Procedures Referred By Xuan bey Referred To Contact Diagnoses Chronic pain syndrome Marilyn Nogueira III, MD 200 [facility] [place] [address] Referral ID Status Reason Start Date Expiration Date Visits Re quested Visits Authorized [id number] Closed 999 999 Reason for Visit * Reason Onset Date Comments Medication Refill 02/22/2023 Encounter Details Date Type Department Care Team Description 02/22/2023 [facility] [place] [address] [place] [address] Marilyn Nogueira III, MD 200 [place] [address] Chronic pain syndrome Allergies Active Allergy Reactions [...] oxyCODONE HCl 5 MG Oral Tablet (Oxy IR)Indications:Production Generalist fernando pain syndrome Take 1 Tablet by mouth every 6 hours as needed (pain). 100 Tablet 0 02/26/2023 Active oxyCODONE HCl 5 MG Oral Tablet (Oxy IR)Indications:Production Generalist fernando pain syndrome TAKE ONE TABLET BY [...] ml/min) 05/11/2018 Coronary artery disease invo lving [place] coronary artery of [place] heart without angina pectoris 05/08/2018 Anxiety state [...] Overview: Modified by Acute [place] Protocol #5. [facility] right coronary [...] for Patients with Cardiovascular Disease Project #: [id number] PI: Peyton Conn MD [phone] GENOMICS CARDIO RESEARCH OTHER*[id number] 200606/28/2016 Overview: Renamed Per Clinical Trials Billing Project. Study Title: Genomic Markers for Patients with Cardiovascular Disease Project #: [id number] PI: Peyton Conn MD [phone] LV (left ventricular) mural thrombus 10/30/2006 12/28/2017 Tobacco use disorder 09/07/2006 06/09/2009 Acute inferior myocardial infarction 08/19/2006 12/11/2008 Overview: Modified by Acute [place] Protocol #5. [facility] right coronary bare metal stents EXAMINATION OF PARTICIPANT IN CLINICAL TRIAL - H ORIZONS 08/19/2006 09/04/2009 Overview: Renamed Per Clinical Trials Billing Project. [facility] AMI clinical trial 263 Single blind trial comparing heparin and IIB/IIIA with bivalirudin, and Taxus vs bare metal stent. Patient Follow-up for 5 years Delivery Room Supervisor: Trent Verduzco [phone] [facility] Clinical Trial*[id number] 08/19/2006 09/08/2014 Overview: Renamed Per Clinical Trials Billing Project. [facility] AMI clinical trial 263 Single blind trial comparing heparin and IIB/IIIA with bivalirudin, and Taxus vs bare metal stent. Patient Follow-up for 5 years Delivery Room Supervisor: Trent Verduzco [phone] Menopause 08/29/2002 02/23/2017 LOC PRIM [id number] 05/29/2002 07/18/19 19 Dyslipidemia, goal to be [...] encounter Miscellaneous Notes * Telephone Encounter - Barbi Liriano CPhT - 02/27/2023 9:36 AM EDT Pt calling to request oxycodone. Informed pt that RX is available at their pharmacy. Pt verbalized understanding and stated they will check with their pharmacy regarding this medication. Thank you, Barbi Liriano CPhT II Board Turner [facility] Services ([facility]PS) (Formerly Telepharmacy) 02/27/2023, 9:36 AM * Telephone Encounter - Jessy Virk LPN [...] [facility] ([facility]) (formerly Telepharmacy) [address] [place] [address] * Telephone Encounter - Earl Keys, elevator installer - 02/24/2023 2:50 PM EDT Pt calling to check on status of refill request. Caller can be reached at [phone]. Thank You, Earl Keys CPhT Artificial Limb Maker II [facility] Pharmacy Services (Formerly Telepharmacy) 02/24/2023, 2:50 PM * Telephone Encounter - Forest Chahal [facility] - 02/23/2023 11:37 AM EDTPending Prescriptions: Disp Refills oxyCODONE HCl 5 MG Oral Tablet (Oxy IR) 100 Ta*0 Sig: Take 1 Tablet by mouth every 6 hours as needed (pain). * Telephone Encounter - Forest Chahal [facility] - 02/23/2023 11:36 AM EDT I have reviewed the patients controlled substance dispensing history in the Prescription Drug Monitoring Program in compliance with the [facility] regulations before prescribing a controlled substance. PDMP checked on 02/23/2023. Pending Prescriptions: Disp Refills oxyCODONE HCl 5 MG Oral Tablet (Oxy IR) 100 Ta*0 Sig: Take 1 Tablet by mouth every 6 hours as needed. Last Visit: 01/04/2023 (in office), 08/24/2020 (telemedicine) Next Visit: 02/27/2023 Date medication was last filled: 02/02/23 Date medication is due for refill: 02/26/23 Pharmacy: [facility], [address] [place] Is this request for [...] approve if appropriate. Thank You, Forest Cordoba [facility] Clinical Pharmacist Centralized Clinical Pharmacy Services (CCPS) (formerly Telepharmacy) 02/23/2023, 11:36 AM * Telephone Encounter - KRISTIE Duran Tech - 02/22/2023 1:09 PM EDT Did you pend patient's preferred pharmacy and medication before forwarding?yes Pharmacy: [facility], [address] [place] Pending Prescriptions: Disp Refills [...] Description 02/27/2023 Office Visit Family Medicine Xuan Xie, [address] [place] [address] 03/08/2023 Home Visit [facility] Areli Washburn RN [address] [place] [address] 03/20/2023 Telemedicine [facility] Timoteo Duggan PA-Geovanny [address] [facility] [place] [id number] Cortney Benoit, Community Health Section Repairer [address] [place] [address] [place] [address] 04/19/2023 Office Visit Pharmacy [facility] Lori [address] [address] Health Maintenance Due Date Last Done Comments DISCUSS TOBACCO CESSATION (REFER TO SMARTSET #8421) 1945 Alpha-1 Antitrypsin 1965 DIABETES-EYE EXAM 1965 [...] Screening 06/02/2023 06/02/2022 CKD HGB USE SMARTSET 98410 10/08/202310/07, 02/21/2022, 12/09/2020, Additional history exists CKD PHOS USE SMARTSET 13505 10/08/202309/19, 02/21/2022, 07/18/2018 O2 ASSESSMENT COMPLETED IN [...] the patient have Health Care Power of Pattern Molder? No Healthcare Agents on File Name Relationship Healthcare Agent Relationshi p Communication Lacy Tong Adult Child Health Care Repr esentative (appointed verbally by patient or by statute hierarchy) Care Teams Metal Hanging Helper Relationship Specialty Start Date End Date Marilyn Nogueira III, MD 200 [place] [address] PCP - General Family Medicine 06/28/18 documented as of this encounter
--- OUTSIDE RECORDS SUMMARY | 2023-06-29 05:34 | External Medical Summary ---
Author Name Unknown Address Unknown Organization K01:[facility] [address] [place] [address] Laboratory Report Ordering Provider Test Date Status SANTI RAMOS 03/02/2023 09:17:16 Final Observation Date Value Abnormality Reference (Units ) Status Folic Acid 03/02/2023 09:17:16 10.1 >4.5 (ng/ mL) Final Performing Location [facility] [address] [place] [address]
--- OUTSIDE RECORDS SUMMARY | 2023-06-29 05:34 | External Medical Summary | Summary of Care ---
Author Name Unknown Organization [facility] Address [address] [place] [address] Phone [phone] Care Team Providers Care Grails Web Application Developer Name Role Phone Loli NORWOOD MD, Marilyn Barraza Primary Care Provider [phone] Reason for Visit * Reason Comments eRx-Medication Refill Encounter Details Date Type Department Care Team Description 02/28/2023 Refill Family Practice [facility] [place] [facility] [place] [address] Marilyn Nogueira III, MD 200 [facility] [place] [address] ASCVD (arteriosclerotic cardiovascular disease); Chest pain, unspecified type Allergies Active Allergy Reactions Severity Noted Date Comments Isosorbide Mononitrate 12/24/2007 Severe headaches Nsaids 05/29/2002 Tramadol Hcl Nausea/vomiting Low 01/09/2008 UGI distress documented as of this encounter (statuses as of 03/01/2023) Medications Medication Sig Dispensed Refills Start Date [...] the morning. 100 Tablet 5 2 Active Pantoprazole Sodium 40 MG Oral Tablet Delayed Release (Protonix)Indicatio ns:Abdominal pain, epigastric TAKE ONE TABLET BY MOUTH DAILY 30 MINUTES BEFORE FIRST meal of THE DAY 90 Tablet 3 2 Active Lisinopril 20 MG Oral Tablet (Prinivil)Indicatio ns:HTN, goal to be determined TAKE ONE TABLET BY MOUTH EVERY DAY 90 Tablet 3 2 Active Gabapentin 300 MG Oral Capsule (Neurontin) Take 1 Capsule by mouth in the morning and 1 Capsule at noon and 1 Capsule before bedtime. 90 Capsule 11 3 Active Atorvastatin Calcium 40 MG Oral Tablet (Lipitor) TAKE ONE TABLET BY MOUTH EVERY DAY 90 Tablet 1 3 Active Additional Information Patient taking differently: 20 mg, Reported on 10/19/2022 Metoprolol Succinate ER 100 MG Oral Tablet Extended Release 24 Hour (toPROL XL)Indications:Acut e inferior myocardial infarction (HCC),ASCVD (arteriosclerotic cardiovascular disease) TAKE ONE TABLET BY MOUTH EVERY DAY 90 Tablet 1 3 Active Additional Information Patient taking differently: 25 mg, Reported on 02/27/2023 levETIRAcetam 500 MG Oral Tablet (Keppra) Take 1 Tablet by mouth in the morning and 1 Tablet before bedtime. 0 3 Active Venlafaxine HCl ER 150 MG Oral Capsule Extended Release 24 Hour (Effexor XR) Take 1 Capsule by mouth at bedtime. 0 Active traZODone HCl 50 MG Oral Tablet (Desyrel) Take 0.5 Tablets by mouth at bedtime. 30 Tablet 3 Active cloNIDine HCl 0.1 MG Oral Tablet (Catapres) Take 0.5 Tablets by mouth in the morning. 15 Tablet 3 Active Furosemide 40 MG Oral Tablet (Lasix) Take 1 Tablet by mouth in the morning. 30 Tablet 3 Active Potassium Chloride Kim ER 20 MEQ Oral Tablet Extended Release TAKE ONE TABLET BY MOUTH EVERY DAY 30 Tablet 3 Active hydrOXYzine HCl 25 MG Oral Tablet TAKE ONE TABLET BY MOUTH THREE TIMES DAILY NEEDED FOR ANXIETY 90 Tablet 2 3 Active Clopidogrel Bisulfate 75 MG Oral Tablet (Plavix) Take 1 Tablet by mouth in the morning. 30 Tablet 5 3 Active oxyCODONE HCl 5 MG Oral Tablet (Oxy IR)Indications:Broom Handle Dipper fernando pain syndrome Take 1 Tablet by mouth every 6 hours as needed (pain). 100 Tablet 0 3 Active Apixaban 5 MG Oral Tablet (Eliquis) Take 1 Tablet by mouth 2 times a day. 60 Tablet 1 3 Active Ondansetron HCl 4 MG Oral Tablet (Zofran)Indications :Nausea Take 1 Tablet by mouth every 8 hours as needed for Nausea. 20 Tablet 0 3 Active Nitroglycerin 0.4 MG Sublingual Tablet Sublingual (Nitrostat)Indicati ons:ASCVD (arteriosclerotic cardiovascular disease),Chest pain, unspecified type DISSOLVE ONE TABLET UNDER THE TONGUE NEEDED FOR CHEST pain, maximum THREE doses 25 Tablet 5 3 Active nitroglycerin (NITROSTAT) 0.4 MG SUBLIndications:ASC VD (arteriosclerotic cardiovascular disease),Chest pain, unspecified type one tab under tongue as needed for chest pain maximum 3 doses 25 Tab 5 9 03/01/20 23 Discontinued documented as of this encounter (statuses as of 03/01/2023) Active Problems Problem Noted Date Atrial fibrillation [...] ml/min) 05/11/2018 Coronary artery disease invo lving tribe coronary artery of tribe heart without angina pectoris 05/08/2018 Anxiety [...] MYOCARDIAL INFARCT 12/11/2008 Overview: Modified by Acute [place] Protocol [place]5. [facility] [place] bare [place] stents S/P angioplasty with stent 09/07/2006 History of tobacco use documented as of this encounter (statuses as of 03/01/2023) Resolved Problems Problem Noted Date Resolved Date [...] for Patients with Cardiovascular Disease Project #: [id number] PI: Peyton Conn MD [phone] GENOMICS CARDIO RESEARCH OTHER*[id number] 200606/28/2016 Overview: Renamed Per Clinical Trials Billing Project. Study Title: Genomic Markers for Patients with Cardiovascular Disease Project #: [id number] PI: Peyton Conn MD [phone] LV (left ventricular) mural thrombus 10/30/2006 12/28/2017 Tobacco use disorder 09/07/2006 06/09/2009 Acute inferior myocardial infarction 08/19/2006 12/11/2008 Overview: Modified by Acute [place] Protocol #5. [facility] [place] coronary bare metal stents EXAMINATION OF PARTICIPANT IN CLINICAL TRIAL - H ORIZONS 08/19/2006 09/04/2009 Overview: Renamed Per Clinical Trials Billing Project. [facility] AMI clinical trial 2004- 4 Single blind trial comparing heparin and IIB/IIIA with bivalirudin, and Taxus vs bare metal stent. Patient Follow-up for 5 years Chief Librarian Branch Or Department: Trent Verduzco [phone] [facility] Clinical Trial*[id number] 08/19/2006 09/08/2014 Overview: Renamed Per Clinical Trials Billing Project. [facility] AMI clinical trial 263 Single blind trial comparing heparin and IIB/IIIA with bivalirudin, and Taxus vs bare metal stent. Patient Follow-up for 5 years Chief Librarian Branch Or Department: Trent Verduzco [phone] Menopause 08/29/2002 02/23/2017 LOC PRIM [id number] 05/29/2002 07/18/19 19 Dyslipidemia, goal to be determined 05/29/2002 05/07/2009 Overview: Per Lipid Taxonomy. FAM HX-DIABETES MELLITUS 05/29/2002 017 cystocoele 09/29/2017 Prolapse of vaginal celeste 2017 Overview: ICD-10 update of inactive term LEFT BB BLOCK NEC 07/18/2018 Other specified forms of chronic ischemic heart disease 02/23/2017 documented as of this encounter (statuses as of 03/01/2023) Immunizations Name Administration Dates Next Due COVID-19 [...] Encounter - Marilyn Nogueira III, MD - 03/01/2023 11:38 AM EDTSigned Prescriptions: Disp Refills Nitroglycerin 0.4 MG Sublingual Tablet Sub*25 Tab*5 Sig: DISSOLVE ONE TABLET UNDER THE TONGUE NEEDED FOR CHEST pain, maximum THREE dosesAuthorizing Provider: MARILYN NOGUEIRA III * Telephone Encounter - Justina Jackson [facility] - 03/01/2023 9:25 AM EDTPending Prescriptions: Disp Refills Nitroglycerin 0.4 MG Sublingual Tablet Sub*25 Tab*5 Sig: DISSOLVE ONE TABLET UNDER THE TONGUE NEEDED FOR CHEST pain, maximum THREE doses * Telephone Encounter - Justina Jackson [facility] - 03/01/2023 9:24 AM EDT Last sent 01/04/19. Please advise/approve if appropriate. Did you pend patient's preferred pharmacy and medication before forwarding?yes Pharmacy: [facility], [address] [place] Pending Prescriptions: Disp Refills Nitroglycerin 0.4 MG Sublingual Tablet Brewster*25 Tab*5 Sig: DISSOLVE ONE TABLET UNDER THE TONGUE NEEDED FOR CHEST pain, maximum THREE doses Last Visit: 02/27/2023 (in office), 08/24/2020 (telemedicine) Next Visit: Visit date not found If no future appointments scheduled, and last appointment is greater than a year ago, please schedule patient for a follow-up appointment Last date the medication was ordered: 01/04/19 Is this request for a controlled substance?No Urine Drug Screen: Results for orders placed [...] NeuroDiagnostic Study Neurophysiology Sp, Neurophys Tech [address] [place] [address] 03/08/2023 Home Visit [facility] Areli Washburn RN [address] [place] [address] 03/20/2023 Telemedicine [facility] Timoteo Duggan PA-Geovanny [address] [facility] [place] [address] Cortney Benoit, Community Health Head Worker [address] [place] [address] [place] [address] 04/19/2023 Office Visit Pharmacy [facility] Lori [address] [place] [address] Health Maintenance Due Date Last Done Comments DISCUSS TOBACCO CESSATION (REFER TO SMARTSET #9292) 1945 Alpha-1 Antitrypsin 1965 DIABETES-EYE EXAM 1965 Diabetic Foot Exam 1965 HbA1c 07/18/2007 01/15/2007, 07/22, 05/29/2002 DXA Scan 09/04/2016 09/04/2013, 09/04/2013 *ADVANCE DIRECTIVE NOT ON FILE 06/09/2019 COVID-19 Vaccine ( season) 2023 11/12/2020, 10/01/2020 Albumin/Creatinine Ratio 02/21/2023 02/21/2022, 03/0 07/2019 GFR 04/09/2023 10/07/2022, 10/0 07/2021, 12/09/2020, Additional history exists Depression Screening 06/02/2023 06/02/2022 CKD HGB USE SMARTSET 28365 10/08/202310/07, 02/21/2022, 12/09/2020, Additional history exists CKD PHOS USE SMARTSET 27179 10/08/202309/19, 02/21/2022, 07/18/2018 O2 ASSESSMENT COMPLETED IN [...] as of this encounter Visit Diagnoses Diagnosis ASCVD (arteriosclerotic cardiovascular disease) Unspecified cardiovascular disease Chest pain, unspecified type documented in this encounter Advance Directives Latest [...] the patient have Health Care Power of Arc Cutter Plasma Arc? No Healthcare Agents on File Name Relationship [facility] Lacy Tong Adult Child Health Care Repr esentative (appointed verbally by patient or by statute hierarchy) Care Teams Grails Web Application Developer Relationship Specialty Start Date End Date Marilyn Nogueira III, MD [address] [place] [address] PCP - General Family Medicine 06/28/18 documented as of this encounter
--- OUTSIDE RECORDS SUMMARY | 2023-06-29 05:34 | External Medical Summary ---
Author Name Unknown Address Unknown Organization K01:[facility] [address] [place] [address] Laboratory Report Ordering Provider Test Date Status MARY MENDEZ 03/02/2023 09:17:16 Final Deficient: <20 ng/mL
Ins ufficient: 20-29 ng/mL
Recommended/Optimum:30-50 ng/mL

Vitamin D intoxication is rare. If suspicious of Vitamin D toxicity, evaluation of serum Calcium and PTH is recommended. Observation Date Value Abnormality Reference (Units ) Status 25-OH Vitamin D total 03/02/2023 09:17:16 10 Below low normal >19 (ng/mL) Final Performing Location [facility] [address] [place] [address]
--- OUTSIDE RECORDS SUMMARY | 2023-06-29 05:36 | External Medical Summary | Summary of Care ---
Author Name Unknown Organization [facility] Address [address] [place] [address] Phone [phone] Care Team Providers Care International Banker Name Role Phone Loli NORWOOD MD, John E Primary Care Provider [phone] Reason for Visit * Reason Onset Date Comments Advice 02/14/2023 Left leg is numb , left heel pain Encounter Details Date Type Department Care Team Description 02/14/2023 Telephone Family Practice [facility] [address] [place] [address] Roman Ennis III, MD [facility] [address] Advice (Left leg is numb, left heel pain) Allergies Active Allergy Reactions Severity Noted Date Comments Isosorbide Mononitrate 12/24/2007 Severe headaches Nsaids 05/29/2002 Tramadol Hcl Nausea/vomiting Low 01/09/2008 UGI distress documented as of this encounter (statuses as of 02/16/2023) Medications Medication Sig Dispensed Refills Start Date [...] EVERY DAY 90 Tablet 1 06/27/2022 Active Apixaban 5 MG Oral Tablet (Eliquis) Take 1 Tablet by mouth 2 times a day. 0 10/09/2022 Active levETIRAcetam 500 MG Oral Tablet (Keppra) Take 1 Tablet by mouth in the morning and 1 Tablet before bedtime. 0 10/09/2022 Active Venlafaxine HCl ER 150 MG Oral Capsule Extended Release 24 Hour (Effexor XR) Take 1 Capsule by mouth at bedtime. 0 Active traZODone HCl 50 MG Oral Tablet (Desyrel) Take 0.5 Tablets by mouth at bedtime. 30 Tablet 10/19/2022 Active cloNIDine HCl 0.1 MG Oral [...] Oral Tablet (Oxy IR)Indications:Chron ic pain syndrome TAKE ONE TABLET BY MOUTH EVERY 6 HOURS NEEDED FOR PAIN 100 Tablet 0 02/02/2023 Active documented as of this encounter (statuses as of 02/16/2023) Active Problems Problem Noted Date Chronic combined systolic and diastolic congestive heart [...] ml/min) 05/11/2018 Coronary artery disease invo lving [place] coronary artery of [place] heart without angina pectoris 05/08/2018 Anxiety state [...] Overview: Modified by Acute [place] Protocol [place]5. [facility] [place] bare metal st[place] S/P angioplasty with stent 09/07/2006 History of tobacco use documented as of this encounter (statuses as of 02/16/2023) Resolved Problems Problem Noted Date Resolved Date [...] for Patients with Cardiovascular Disease Project #: [id number] PI: Peyton Conn MD [phone] GENOMICS CARDIO RESEARCH OTHER*[id number] 200606/28/2016 Overview: Renamed Per Clinical Trials Billing Project. Study Title: Genomic Markers for Patients with Cardiovascular Disease Project #: [id number] PI: Peyton Conn MD [phone] LV (left ventricular) mural thrombus 10/30/2006 12/28/2017 Tobacco use disorder 09/07/2006 06/09/2009 Acute inferior myocardial infarction 08/19/2006 12/11/2008 Overview: Modified by Acute [place] Protocol [place]5. [facility] [place] coronary bare metal stents EXAMINATION OF PARTICIPANT IN CLINICAL TRIAL - H ORIZONS 08/19/2006 09/04/2009 Overview: Renamed Per Clinical Trials Billing Project. [facility] AMI clinical trial 263 Single blind trial comparing heparin and IIB/IIIA with bivalirudin, and Taxus vs bare metal stent. Patient Follow-up for 5 years Public Health Registrar: Trent Verduzco [phone] [facility] Clinical Trial*[id number] 08/19/2006 09/08/2014 Overview: Renamed Per Clinical Trials Billing Project. [facility] AMI clinical trial 263 Single blind trial comparing heparin and IIB/IIIA with bivalirudin, and Taxus vs bare metal stent. Patient Follow-up for 5 years Public Health Registrar: Trent Verduzco [phone] [facility] 08/29/2002 02/23/2017 LOC PRIM [id number] 05/29/2002 07/18/19 19 Dyslipidemia, goal to be determined 05/29/2002 05/07/2009 Overview: Per Lipid Taxonomy. FAM HX-DIABETES MELLITUS 05/29/2002 017 cystocoele 09/29/2017 Prolapse of vaginal celeste 2017 Overview: ICD-10 update of inactive term LEFT BB BLOCK NEC 07/18/2018 Other specified forms of chronic ischemic heart disease 02/23/2017 documented as of this encounter (statuses as of 02/16/2023) Immunizations Name Administration Dates Next Due COVID-19 mRNA, LNP-s, No Pre serve, 2-Dose Series (Moderna) 11/12/2020,10/01/2020 H1N1 2009 Influenza, IM 06/08/2009 HEP A - Hepatitis A (Adult > 18 yrs) 04/02/2018, 07/24/2017 01/24/2018 Hepatitis B, 20+ yrs 04/02/2018,09/29/2017,07/2408/24/2017 Pneumococcal Conjugate Vacc, 13 Valent (Prevnar) 10/22/2014 Pneumococcal Polysaccharide PPV23 (Pneumovax) 02/23/2017,02/26/2007 Seasonal Influenza Intranasal 03/29/2013 Seasonal Influenza, PF, 6 mo ns & Above, IM , (Flulaval) 04/02/2018 Seasonal Influenza, Quadriva lent, No Preserve, IM [...] encounter Miscellaneous Notes * Telephone Encounter - Tia Olmstead RN - 02/16/2023 3:32 PM EDT See message of 02/16/23. * Telephone Encounter - OPAL Hutchison - 02/14/2023 4:36 PM EDT Radha is calling to ask if physician's certification form is completed and sent to [facility].Please contact her dick as her appointment needs to be scheduled yet, preferably after 3pm. * Telephone Encounter - OPAL Jewell - 02/14/2023 8:16 AM EDT Patient calling states she needs to be seen for left leg is numbness and left heel pain. Please contact patient at: [phone] documented in this encounter Plan of Treatment Upcoming Encounters Date Type Specialty Care Team Description 02/22/2023 Office Visit Family Medicine Pamela Lopez PA-C [address] [place] [address] 02/27/2023 Scheduled Telephone [facility], [facility] [address] [place] [address] 04/19/[address] [facility] Lori [address] [place] [address] Health Maintenance Due Date Last Done Comments DISCUSS TOBACCO CESSATION (REFER TO SMARTSET #3291) 1945 Alpha-1 Antitrypsin 1965 DIABETES-EYE EXAM 1965 Diabetic Foot Exam 1965 HbA1c 07/18/2007 01/15/2007, 07/22, 05/29/2002 DXA Scan 09/04/2016 09/04/2013, 09/04/2013 *ADVANCE DIRECTIVE NOT ON FILE 06/09/2019 COVID-19 Vaccine (3 - Moderna series) 01/07/2021 11/12/2020, 10/01/2020 Influenza Vaccine (FLU shot) (#1) 2023 02/21/2022, 02/03/2020, 01/31/2019, Additional history exists Albumin/Creatinine Ratio 02/21/2023 02/21/2022, 03/0 07/2019 GFR 04/09/2023 10/07/2022, 10/0 07/2021, 12/09/2020, Additional history exists Depression Screening 06/02/2023 06/02/2022 CKD HGB USE SMARTSET 60910 10/08/202310/07, 02/21/2022, 12/09/2020, Additional history exists CKD PHOS USE SMARTSET 37633 10/08/202309/19, 02/21/2022, 07/18/2018 O2 ASSESSMENT COMPLETED IN [...] the patient have Health Care Power of Relocation Coordinator? No Healthcare Agents on File Name Relationship Healthcare Agent Relationshi p Communication Lacy Tong Adult Child Health Care Repr esentative (appointed verbally by patient or by statute hierarchy) Care Teams International Banker Relationship Specialty Start Date End Date Roman Ennis III, MD [address] [place] [address], [place] [address] PCP - General Family Medicine 06/28/18 documented as of this encounter
--- OUTSIDE RECORDS SUMMARY | 2023-06-29 05:36 | External Medical Summary | Summary of Care ---
Author Name Unknown Organization [facility] Address [address] [place] [address] Phone [phone] Care Team Providers Care Stores Clerk Name Role Phone Loli NORWOOD MD, Roman Barraza Primary Care Provider [phone] Encounter Details Date Type Department Care Team Description 02/15/2023 Small Equipment OperatorRegistry Rn Practice [facility] [place] [address] [facility] [place] [address] Ciara Menendez, RN Medical home patient encounter* Allergies Active Allergy Reactions Severity Noted Date Comments Isosorbide Mononitrate 12/24/2007 Severe headaches Nsaids 05/29/2002 Tramadol Hcl Nausea/vomiting Low 01/09/2008 UGI distress documented as of this encounter (statuses as of 02/15/2023) Medications Medication Sig Dispensed Refills Start Date [...] as of this encounter (statuses as of 02/15/2023) Active Problems Problem Noted Date Chronic combined [...] ml/min) 05/11/2018 Coronary artery disease invo lving [place] coronary artery of [place] heart without angina pectoris 05/08/2018 Anxiety state [...] Modified by Acute [place] Protocol #5. [facility] [place] coronary bare metal stents S/P angioplasty with stent 09/07/2006 History of tobacco use documented as of this encounter (statuses as of 02/15/2023) Resolved Problems Problem Noted Date Resolved Date [...] for Patients with Cardiovascular Disease Project #: [id number] PI: Peyton Conn MD [phone] GENOMICS CARDIO RESEARCH OTHER*[id number] 200606/28/2016 Overview: Renamed Per Clinical Trials Billing Project. Study Title: Genomic Markers for Patients with Cardiovascular Disease Project #: [id number] PI: Peyton Conn MD [phone] LV (left ventricular) mural thrombus 10/30/2006 12/28/2017 Tobacco use disorder 09/07/2006 06/09/2009 Acute inferior myocardial infarction 08/19/2006 12/11/2008 Overview: Modified by Acute [place] Protocol #5. [facility] [place] coronary bare metal stents EXAMINATION OF PARTICIPANT IN CLINICAL TRIAL - H ORIZONS 08/19/2006 09/04/2009 Overview: Renamed Per Clinical Trials Billing Project. [facility] AMI clinical trial 263 Single blind trial comparing heparin and IIB/IIIA with bivalirudin, and Taxus vs bare metal stent. Patient Follow-up for 5 years Helicopter Pilot: Trent Verduzco [phone] [facility] Clinical Trial*[id number] 08/19/2006 09/08/2014 Overview: Renamed Per Clinical Trials Billing Project. [facility] AMI clinical trial 263 Single blind trial comparing heparin and IIB/IIIA with bivalirudin, and Taxus vs bare metal stent. Patient Follow-up for 5 years Helicopter Pilot: Trent Verduzco [phone] Menopause 08/29/2002 02/23/2017 LOC PRIM [id number] 05/29/2002 07/18/19 19 Dyslipidemia, goal to be determined 05/29/2002 05/07/2009 Overview: Per Lipid Taxonomy. FAM HX-DIABETES MELLITUS 05/29/2002 017 cystocoele 09/29/2017 Prolapse of vaginal celeste 2017 Overview: ICD-10 update of inactive term LEFT BB BLOCK NEC 07/18/2018 Other specified forms of chronic ischemic heart disease 02/23/2017 documented as of this encounter (statuses as of 02/15/2023) Immunizations Name Administration Dates Next Due COVID-19 [...] as of this encounter Progress Notes * Ciara Menendez RN - 02/15/2023 10:51 AM EDT SITUATION: CM received request for assistance from clinic [facility]NDi on certification for waiver services. BACKGROUND: Pt requested forms to be completed on 02/09 to verify she requrires assisted level of care. Pt called and left several messages to this regarding this. ASSESSMENT: CM discussed and explained form to clinic RNDi. Explained that this would be forcommunity based services through aging. She states that PCP will fill out, but he may need to have a face to face visit with patient for this. CM placed f/u call to patient X2 Follow-up Routine Attempted Phone Call First Attempt Call Outcome Unable to Leave Message Plan To attempt another outreach CM requested clinic PCNC nurse attempt to try pt as this CM is currently seated at a different location and it may be pt is not answering as the number would show up differently on caller ID. Per [place] nurse, no answer. RECOMMENDATION: CM will continue to attempt to reach pt for update. ADDENDUM: CM received return call from patient-updated of the above, PCP is working on completing form for pt. CM scheduled pt for hospital d/c appointment with Pamela Lopez PA-C on 02/22/23. CM dicussed with pt [facility] referral and pt is agreeable to follow up with them. Ciara Menendez, gis scientist [facility] [place] [address] [address] [place] [address] documented in this encounter Plan of Treatment Upcoming Encounters Date Type Specialty Care Team Description 02/22/2023 Office Visit Family Medicine Pamela Lopez PA-C [address] [place] [facility] [place] [address] 02/27/2023 Scheduled Telephone [facility], [facility] [address] [place] [address] 04/19/2023 Office Visit Pharmacy [facility] Lori [address] [place] [address] Health Maintenance Due Date Last Done Comments [...] Screening 06/02/2023 06/02/2022 CKD HGB USE SMARTSET 15289 10/08/202310/07, 02/21/2022, 12/09/2020, Additional history exists CKD PHOS USE SMARTSET 58229 10/08/2023 0501/2023, 02/21/2022, 07/18/2018 O2 ASSESSMENT COMPLETED IN PAST [...] as of this encounter Visit Diagnoses Diagnosis Medical home patient encounter- Primary Other specified examination documented in this encounter Advance Directives Latest [...] the patient have Health Care Power of Flatwork Finisher Hand? No Healthcare Agents on File Name Relationship Healthcare Agent Relationshi p Communication Lacy Tong Adult Child Health Care Repr esentative (appointed verbally by patient or by statute hierarchy) Care Teams Stores Clerk Relationship Specialty Start Date End Date Roman Ennis III, MD [address] [place] [address] PCP - General Family Medicine 06/28/18 documented as of this encounter
--- OUTSIDE RECORDS SUMMARY | 2023-06-29 05:36 | External Medical Summary | Summary of Care ---
Author Name Unknown Organization [facility] Address [address] [place] [address] Phone [phone] Care Team Providers Care Taxi Servicer Name Role Phone Loli NORWOOD MD, Roman Barraza Primary Care Provider [phone] Reason for Visit * Reason Onset Date Comments Fax 02/09/2023 [facility]: Maintenance 02/09/2023 Encounter Details Date Type Department Care Team Description 02/09/2023 Telephone Family Practice [facility] [place] [address] [facility] [place] [address] Roman Ennis III, MD [address] [facility] [address] Fax; [facility]: Maintenance Allergies Active Allergy Reactions Severity Noted Date [...] ml/min) 05/11/2018 Coronary artery disease invo lving [place] coronary artery of [place] heart without angina pectoris 05/08/2018 Anxiety state [...] Overview: Modified by Acute [place] Protocol #5. [facility] right coronary bare metal stents S/P angioplasty [...] for Patients with Cardiovascular Disease Project #: [id number] PI: Peyton Conn MD [phone] GENOMICS CARDIO RESEARCH OTHER*[id number] 200606/28/2016 Overview: Renamed Per Clinical Trials Billing Project. Study Title: Genomic Markers for Patients with Cardiovascular Disease Project #: [id number] PI: Peyton Conn MD [phone] LV (left ventricular) mural thrombus 10/30/2006 12/28/2017 Tobacco use disorder 09/07/2006 06/09/2009 Acute inferior myocardial infarction 08/19/2006 12/11/2008 Overview: Modified by Acute [place] Protocol #5. [facility] right coronary bare metal stents EXAMINATION OF PARTICIPANT IN CLINICAL TRIAL - H ORIZONS 08/19/2006 09/04/2009 Overview: Renamed Per Clinical Trials Billing Project. [facility] AMI clinical trial 263 Single blind trial comparing heparin and IIB/IIIA with bivalirudin, and Taxus vs bare metal stent. Patient Follow-up for 5 years Electric Vehicle Electrician: Trent Verduzco [phone] [facility] Clinical Trial*[id number] 08/19/2006 09/08/2014 Overview: Renamed Per Clinical Trials Billing Project. [facility] AMI clinical trial 263 Single blind trial comparing heparin and IIB/IIIA with bivalirudin, and Taxus vs bare metal stent. Patient Follow-up for 5 years Electric Vehicle Electrician: Trent Verduzco [phone] [facility] 08/29/2002 02/23/2017 LOC PRIM [id number] 05/29/2002 07/18/19 19 Dyslipidemia, goal to be [...] Miscellaneous Notes * Telephone Encounter - OPAL Whitley - 02/15/2023 10:26 AM EDT Reason for patient's call: PT is calling in regards to the previous messages regarding the Physician Certification Form. She is requesting to speak to a nurse in the clinic. Spoke to Annamarie in clinic and she told me to make the PT aware the form has been received and wilmer will have Ciara call her back. * Telephone Encounter - OPAL Ruiz - 02/13/2023 8:21 AM EDT Per request, sent [facility] letter to patient and scheduled 2 wk f/u call * Telephone Encounter - Jessy Virk LPN - 02/10/2023 9:44 AM EDT Noted. Checked Dr Ennis's mailbox, not there yet. Will watch for this. * Telephone Encounter - OPAL Martinez - 02/09/2023 3:56 PM EDT Pt calling because area aging is going to be faxing a form for you to fill out regarding the pt's condition (Physican Certification0 Indepen. Enrollment Laboratory Mechanic Helper ) Please call above number after it is filled out Thanks documented in this encounter Plan of Treatment Upcoming Encounters Date Type Specialty Care Team Description 02/27/2023 Scheduled Telephone [facility] Brim Greaser Operator, [facility] [address] [place] [address] 04/19/2023 Office Visit Pharmacy [facility] [address] [place] [address] Health Maintenance Due Date Last Done Comments [...] Additional history exists Albumin/Creatinine Ratio 02/21/2023 02/21/2022, 0307/2019 GFR 04/09/2023 10/07/2022, 07/2021, 12/09/2020, Additional history exists Depression Screening 06/02/2023 06/02/2022 CKD HGB USE SMARTSET 82260 10/08/202310/07, 02/21/2022, 12/09/2020, Additional history exists CKD PHOS USE SMARTSET 14148 10/08/2023 05/01/2023, 02/21/2022, 07/18/2018 O2 ASSESSMENT COMPLETED IN PAST [...] the patient have Health Care Power of Wheat And Oats Flake Miller? No Healthcare Agents on File Name Relationship Healthcare Agent Relationshi p Communication Lacy Tong Adult Child Health Care Repr esentative (appointed verbally by patient or by statute hierarchy) Care Teams Taxi Servicer Relationship Specialty Start Date End Date Roman Ennis III, MD [address] [place] [address], [place] [address] PCP - General Family Medicine 06/28/18 documented as of this encounter
--- OUTSIDE RECORDS SUMMARY | 2023-06-29 05:36 | External Medical Summary | Summary of Care ---
Author Name Unknown Organization [facility] Address [address] [place] [address] Phone [phone] Care Team Providers Care Livestock Judging Coach Name Role Phone Loli NORWOOD MD, Roman Barraza Primary Care Provider [phone] Reason for Visit * Reason Onset Date Comments FYI 02/16/2023 Encounter Details Date Type Department Care Team Description 02/16/2023 Telephone Family Practice [facility] [place] [address] [place] [address] Roman Ennis III, MD [address] [facility] [place] [address] FYI Allergies Active Allergy Reactions Severity Noted Date Comments Isosorbide Mononitrate 12/24/2007 Severe headaches Nsaids 05/29/2002 Tramadol Hcl Nausea/vomiting Low 01/09/2008 UGI distress documented as of this encounter (statuses as of 02/17/2023) Medications Medication Sig Dispensed Refills Start Date [...] as of this encounter (statuses as of 02/17/2023) Active Problems Problem Noted Date Chronic combined [...] ml/min) 05/11/2018 Coronary artery disease invo lving [place] coronary artery of [place] heart without angina pectoris 05/08/2018 Anxiety state [...] MYOCARDIAL INFARCT 12/11/2008 Overview: Modified by Acute [place] Protocol #5. [facility] right coronary bare metal stents S/P angioplasty with stent 09/07/2006 History of tobacco use documented as of this encounter (statuses as of 02/17/2023) Resolved Problems Problem Noted Date Resolved Date [...] for Patients with Cardiovascular Disease Project #: [id number] PI: Peyton Conn MD [phone] GENOMICS CARDIO RESEARCH OTHER*[id number] 200606/28/2016 Overview: Renamed Per Clinical Trials Billing Project. Study Title: Genomic Markers for Patients with Cardiovascular Disease Project #: [id number] PI: Peyton Conn MD [phone] LV (left ventricular) mural thrombus 10/30/2006 12/28/2017 Tobacco use disorder 09/07/2006 06/09/2009 Acute inferior myocardial infarction 08/19/2006 12/11/2008 Overview: Modified by Acute [place] Protocol #5. [facility] right coronary bare metal stents EXAMINATION OF PARTICIPANT IN CLINICAL TRIAL - H ORIZONS 08/19/2006 09/04/2009 Overview: Renamed Per Clinical Trials Billing Project. [facility] AMI clinical trial 263 Single blind trial comparing heparin and IIB/IIIA with bivalirudin, and Taxus vs bare metal stent. Patient Follow-up for 5 years Scrap Carrier: Trent Verduzco [phone] [facility] Clinical Trial*[id number] 08/19/2006 09/08/2014 Overview: Renamed Per Clinical Trials Billing Project. [facility] AMI clinical trial 263 Single blind trial comparing heparin and IIB/IIIA with bivalirudin, and Taxus vs bare metal stent. Patient Follow-up for 5 years Scrap Carrier: Trent Verduzco [phone] Menopause 08/29/2002 02/23/2017 LOC PRIM [id number] 05/29/2002 07/18/19 19 Dyslipidemia, goal to be determined 05/29/2002 05/07/2009 Overview: Per Lipid Taxonomy. FAM HX-DIABETES MELLITUS 05/29/2002 017 cystocoele 09/29/2017 Prolapse of vaginal celeste 2017 Overview: ICD-10 update of inactive term LEFT BB BLOCK NEC 07/18/2018 Other specified forms of chronic ischemic heart disease 02/23/2017 documented as of this encounter (statuses as of 02/17/2023) Immunizations Name Administration Dates Next Due COVID-19 [...] encounter Miscellaneous Notes * Telephone Encounter - Ciara Menendez RN - 02/17/2023 8:53 AM EDT SITUATION: CM received form for completion BACKGROUND: Pt is in process of applying for waiver services ASSESSMENT: CM completed form with Dr. Ennis-pt is eligible for retirement level of care per [facility] evaluation. RECOMMENDATION: Form completed and signed by MD. CM faxed form on this date to [place] Independent enrollment milled rice broker at . Received receipt of successful fax. Form sent to be scanned into pt's chart. Ciara Menendez RN [address] [address] * Telephone Encounter - Tia Olmstead RN - 02/16/2023 3:32 PM EDT Pt needs [place] dept of Human Services, Office of marine oil terminal superintendent living, Physician Certification Form filledout. It will determine what services she can get. Pt can only get appt when her son can bring her so it needs to be a late appt. She has 2 sons and one is estranged from her. She wants her son (the one that is not estranged) to be with her at appt. The form needs to be done by a MD or DO. Form is on Ciara Menendez's desk. documented in this encounter Plan of Treatment Upcoming Encounters Date Type Specialty Care Team Description 02/22/2023 Office Visit Family [facility] [address] 02/27/2023 Scheduled Telephone [facility], [facility] [address] [place] [address] 04/19/2023 Office Visit Pharmacy [facility] [place] [address] [place] [address] Health Maintenance Due Date Last Done Comments [...] Screening 06/02/2023 06/02/2022 CKD HGB USE SMARTSET 83021 10/08/202310/07, 02/21/2022, 12/09/2020, Additional history exists CKD PHOS USE SMARTSET 17695 10/08/2023 0501/2023, 02/21/2022, 07/18/2018 O2 ASSESSMENT COMPLETED [...] patient have Health Care Power of Scrap Drop Crane Operator? No Healthcare Agents on File Name Relationship Healthcare Agent Relationshi p Communication Lacy Tong Adult Child Health Care Repr esentative (appointed verbally by patient or by statute hierarchy) Care Teams Livestock Judging Coach Relationship Specialty Start Date End Date Roman Ennis III, MD [address] [place], [place] [address] [place] [address] PCP - General Family Medicine 06/28/18 documented as of this encounter
--- OUTSIDE RECORDS SUMMARY | 2023-06-29 05:36 | External Medical Summary | Summary of Care ---
Author Name Unknown Organization [facility] Address [address] [place] [address] Phone [phone] Care Team Providers Care Apparatus Operator Name Role Phone Loli NORWOOD MD, Roman Barraza Primary Care Provider [phone] Encounter Details Date Type Department Care Team Description 02/15/2023 Steel FabricatorCandle Maker Practice [facility] [place] [address] [facility] [place] [address] Ciara Menendez, RN Medical home patient encounter* [...] ml/min) 05/11/2018 Coronary artery disease invo lving [place] coronary artery of [place] heart without angina pectoris 05/08/2018 Anxiety state [...] Overview: Modified by Acute [place] Protocol #5. [facility] right coronary bare metal stents S/P angioplasty [...] for Patients with Cardiovascular Disease Project #: [id number] PI: Peyton Conn MD [phone] GENOMICS CARDIO RESEARCH OTHER*[id number] 200606/28/2016 Overview: Renamed Per Clinical Trials Billing Project. Study Title: Genomic Markers for Patients with Cardiovascular Disease Project #: [id number] PI: Peyton Conn MD [phone] LV (left ventricular) mural thrombus 10/30/2006 12/28/2017 Tobacco use disorder 09/07/2006 06/09/2009 Acute inferior myocardial infarction 08/19/2006 12/11/2008 Overview: Modified by Acute [place] Protocol #5. [facility] right coronary bare metal stents EXAMINATION OF PARTICIPANT IN CLINICAL TRIAL - H ORIZONS 08/19/2006 09/04/2009 Overview: Renamed Per Clinical Trials Billing Project. [facility] AMI clinical trial 263 Single blind trial comparing heparin and IIB/IIIA with bivalirudin, and Taxus vs bare metal stent. Patient Follow-up for 5 years Showroom Sales Consultant: Trent Verduzco [phone] [facility] Clinical Trial*[id number] 08/19/2006 09/08/2014 Overview: Renamed Per Clinical Trials Billing Project. [facility] [place] AMI clinical trial 263 Single blind trial comparing heparin and IIB/IIIA with bivalirudin, and Taxus vs bare metal stent. Patient Follow-up for 5 years Showroom Sales Consultant: Trent Verduzco [phone] Menopause 08/29/2002 02/23/2017 LOC PRIM [id number] 05/29/2002 07/18/19 19 Dyslipidemia, goal to be [...] completed on 02/09 to verify she requrires retirement level of care. Pt called and left several messages to this regarding this. ASSESSMENT: CM discussed and explained form to clinic Di GONZALEZ. Explained that this would be forcommunity based [...] show up differently on caller ID. Per PCNC nurse, no answer. RECOMMENDATION: CM will continue to attempt to reach pt for update. Ciara Menendez RN Family Practice [facility] [address] [address] documented in this encounter Plan of Treatment Upcoming Encounters Date Type Specialty Care Team Description 02/27/2023 Scheduled Telephone [facility] Sweater Designer, Jose Ying [address] [place] [address] 04/19/2023 Office Visit [facility] [address] [place] [address] Health Maintenance Due Date Last Done Comments DISCUSS TOBACCO CESSATION (REFER TO SMARTSET #6309) 1945 Alpha-1 Antitrypsin 1965 DIABETES-EYE EXAM 1965 [...] Screening 06/02/2023 06/02/2022 CKD HGB USE SMARTSET 78372 10/08/202310/07, 02/21/2022, 12/09/2020, Additional history exists CKD PHOS USE SMARTSET 52899 10/08/202309/19, 02/21/2022, 07/18/2018 O2 ASSESSMENT COMPLETED IN [...] the patient have Health Care Power of Gold Charmer? No Healthcare Agents on File Name Relationship Healthcare Agent Relationshi p Communication Lacy Tong Adult Child Health Care Repr esentative (appointed verbally by patient or by statute hierarchy) Care Teams Apparatus Operator Relationship Specialty Start Date End Date Roman Ennis III, MD [address] [place] [address] PCP - General Family Medicine 06/28/18 documented as of this encounter
--- OUTSIDE RECORDS SUMMARY | 2023-06-29 05:36 | External Medical Summary | Summary of Care ---
Author Name Unknown Organization [facility] Address [address] [place] [address] Phone [phone] Care Team Providers Care Automotive Starter Repairer Name Role Phone Loli NORWOOD MD, Roman Barraza Primary Care Provider [phone] Reason for Visit * Reason Onset Date Comments [facility]: Screening 02/14/2023 Encounter Details Date Type Department Care Team Description 02/14/2023 Telephone [facility], [facility] [address] [facility] [place] [address] [facility], Nurse [facility] [address] [facility] [place] [address] [facility]: Screening Allergies Active Allergy Reactions Severity Noted Date Comments Isosorbide Mononitrate 12/24/2007 Severe headaches Nsaids 05/29/2002 Tramadol Hcl Nausea/vomiting Low 01/09/2008 UGI distress documented as of this encounter (statuses as of 02/14/2023) Medications Medication Sig Dispensed Refills Start Date [...] as of this encounter (statuses as of 02/14/2023) Active Problems Problem Noted Date Chronic combined [...] ml/min) 05/11/2018 Coronary artery disease invo lving [place] coronary artery of [place] heart without angina pectoris 05/08/2018 Anxiety state [...] Overview: Modified by Acute [place] Protocol #5. [facility] right coronary bare metal stents S/P angioplasty with stent 09/07/2006 History of tobacco use documented as of this encounter (statuses as of 02/14/2023) Resolved Problems Problem Noted Date Resolved Date [...] for Patients with Cardiovascular Disease Project #: [id number] PI: Peyton Conn MD [phone] GENOMICS CARDIO RESEARCH OTHER*[id number] 200606/28/2016 Overview: Renamed Per Clinical Trials Billing Project. Study Title: Genomic Markers for Patients with Cardiovascular Disease Project #: [id number] PI: Peyton Conn MD [phone] LV (left ventricular) mural thrombus 10/30/2006 12/28/2017 Tobacco use disorder 09/07/2006 06/09/2009 Acute inferior myocardial infarction 08/19/2006 12/11/2008 Overview: Modified by Acute [place] Protocol #5. [facility] right coronary bare metal stents EXAMINATION OF PARTICIPANT IN CLINICAL TRIAL - H ORIZONS 08/19/2006 09/04/2009 Overview: Renamed Per Clinical Trials Billing Project. [facility] AMI clinical trial 263 Single blind trial comparing heparin and IIB/IIIA with bivalirudin, and Taxus vs bare metal stent. Patient Follow-up for 5 years Precision Machining Instructor: Trent Verduzco [phone] [facility] Clinical Trial*[id number] 08/19/2006 09/08/2014 Overview: Renamed Per Clinical Trials Billing Project. [facility] AMI clinical trial 263 Single blind trial comparing heparin and IIB/IIIA with bivalirudin, and Taxus vs bare metal stent. Patient Follow-up for 5 years Precision Machining Instructor: Trent Vedruzco [phone] [facility] 08/29/2002 02/23/2017 LOC PRIM [id number] 05/29/2002 07/18/19 19 Dyslipidemia, goal to be determined 05/29/2002 05/07/2009 Overview: Per Lipid Taxonomy. FAM HX-DIABETES MELLITUS 05/29/2002 017 cystocoele 09/29/2017 Prolapse of vaginal celeste 2017 Overview: ICD-10 update of inactive term LEFT BB BLOCK NEC 07/18/2018 Other specified forms of chronic ischemic heart disease 02/23/2017 documented as of this encounter (statuses as of 02/14/2023) Immunizations Name Administration Dates Next Due COVID-19 [...] encounter Miscellaneous Notes * Telephone Encounter - Lin Ayala LPN - 02/14/2023 11:09 AM EDT Radha Tong was referred as a potential candidate for enrollment for [facility]. A review of this chart was completed and: Radha meets criteria for [facility]. Jump to Episodes of Care to create Episode and document smartforms Referring care team was notified via : BackType communication Sent to teams enrollment chat to reach out to pt documented in this encounter Plan of Treatment Upcoming Encounters Date Type Specialty Care Team Description 02/27/2023 Scheduled Telephone [facility] Tissue Technician, Jose [facility] [address] [place] [address] 04/19/2023 Office Visit Pharmacy [facility], [facility] [address] [place] [address] Health Maintenance Due Date Last Done Comments DISCUSS TOBACCO CESSATION (REFER TO SMARTSET #3290) 1945 Alpha-1 Antitrypsin 1965 DIABETES-EYE EXAM 1965 [...] Screening 06/02/2023 06/02/2022 CKD HGB USE SMARTSET 03382 10/08/202310/07, 02/21/2022, 12/09/2020, Additional history exists CKD PHOS USE SMARTSET 86461 10/08/202309/19, 02/21/2022, 07/18/2018 O2 ASSESSMENT COMPLETED IN [...] the patient have Health Care Power of Counter Intelligence Technician? No Healthcare Agents on File Name Relationship Healthcare Agent [facility] Communication Lacy Tong Adult Child Health Care Repr esentative (appointed verbally by patient or by statute hierarchy) Care Teams Automotive Starter Repairer Relationship Specialty Start Date End Date Roman Ennis III, MD [address] [place] [address] PCP - General Family Medicine 06/28/18 documented as of this encounter
--- OUTSIDE RECORDS SUMMARY | 2023-06-29 05:37 | External Medical Summary | Summary of Care ---
Author Name Unknown Organization [facility] Address [address] [place] [address] Phone [phone] Care Team Providers Care Chemistry Quality Control Technician Name Role Phone Loli NORWOOD MD, Roman Barraza Primary Care Provider [phone] Reason for Referral * Evaluate & Treat - Unlimited Visits (Within 3 days (urgent)) - Authorized Specialty Diagnoses / Procedures Referred By Contac t Referred To Contact HOME CARE / [facility] Diagnoses Chronic combined systolic and diastolic congestive heart failure (HCC) COPD exacerbation (HCC) Heme positive stool Monoplegia, upper limb, nondominant side S/P CVA (cerebrovascular acc) (HCC) Pamela Lopez PA-C [address] [place] [address] Referral ID Status Reason Start Date Expiration Date Visits Requested Visits Authorized [id number] Authorized Specialty Services Required 01/04/[phone] Question Answer Referral Priority Within 3 days (urgent) Does patient have multiple co-morbid conditions? Yes Does patient have [facility] insurance? Yes Comments Is referral coming from Care Coordination and Integration? No * Evaluate & Treat - Unlimited Visits (Within 3 days (urgent)) - Authorized Specialty Diagnoses / Procedures Referred By Contac t Referred To Contact Gastroenterology Diagnoses Diarrhea, unspecified type Heme positive stool Pamela Lopez PA-C [address] [place] [address] Referral ID Status Reason Start Date Expiration Date Visits Requested Visits Authorized [id number] Authorized Specialty Services Required 01/04/2023 999 999 Question Answer Referral Priority Within 3 days (urgent) For what condition is the patient being referred? All Gastro Conditions Comments Heme positive stool, diarrhea that is black, abdominal pain Reason for Visit * Reason Comments Hospital Follow-Up Encounter Details Date Type Department Care Team Description 01/04[facility]23 [facility] [place] [address] [facility] [place] [address] Pamela Lopez PA-C [address] [place] [address] Hospital discharge follow-up*; COPD exacerbation (HCC); Diarrhea, unspecified type; Heme positive stool; Chronic combined systolic and diastolic congestive heart failure ([facility]); Monoplegia, upper limb, nondominant side S/P CVA (cerebrovascular acc) ([facility]); Acute deep vein thrombosis (DVT) of proximal vein of right lower extremity ([facility]) Allergies Active Allergy Reactions Severity Noted Date Comments Isosorbide Mononitrate 12/24/2007 Severe headaches Nsaids 05/29/2002 Tramadol Hcl Nausea/vomiting Low 01/09/2008 UGI distress documented as of this encounter (statuses as of 02/12/2023) Medications Medication Sig Dispensed Refills Start Date End Date Status Aspirin 81 MG TabletIndications: F/u of acute inferior myocardial infarction Take 1 Tablet by mouth in the morning. 0 7 Active nitroglycerin (NITROSTAT) 0.4 MG SUBLIndications: CVD (arteriosclerotic cardiovascular disease),Chest pain, unspecified type one tab under tongue as needed for chest pain maximum 3 doses 25 Tab 5 9 Active Anoro Ellipta 62.5-25 MCG/INH Inhalation Aerosol [...] 2 Active Lisinopril 20 MG Oral Tablet (Prinivil)Indicati ons:HTN, goal to be determined TAKE ONE TABLET BY MOUTH EVERY DAY 90 Tablet 3 2 Active Gabapentin 300 MG Oral Capsule (Neurontin) Take 1 Capsule by mouth in the morning and 1 Capsule at noon and 1 Capsule before bedtime. 90 Capsule 3 Active Atorvastatin Calcium 40 MG Oral [...] EVERY DAY 90 Tablet 1 3 Active Apixaban 5 MG Oral Tablet (Eliquis) Take 1 Tablet by mouth 2 times a day. 0 3 Active levETIRAcetam 500 MG Oral Tablet [...] at bedtime. 30 Tablet 5 3 Active cloNIDine HCl 0.1 MG Oral Tablet (Catapres) Take 0.5 Tablets by mouth in the morning. 15 Tablet 3 Active Furosemide 40 MG Oral Tablet (Lasix) Take 1 Tablet by mouth in the morning. 30 Tablet 3 Active Potassium Chloride [facility] 20 MEQ Oral Tablet Extended Release TAKE ONE TABLET BY MOUTH EVERY DAY 30 Tablet 11 3 Active Ondansetron HCl 4 MG Oral Tablet (Zofran)Indication s:Nausea Take 1 Tablet by mouth every 8 hours as needed for Nausea. 20 Tablet 0 3 Active hydrOXYzine HCl 25 MG Oral Tablet TAKE ONE TABLET BY MOUTH THREE TIMES DAILY NEEDED FOR ANXIETY 90 Tablet 2 3 Active Clopidogrel Bisulfate 75 MG Oral Tablet (Plavix) Take 1 Tablet by mouth in the morning. 30 Tablet 5 3 Active hydrOXYzine HCl 25 MG Oral Tablet TAKE ONE TABLET BY MOUTH THREE TIMES DAILY NEEDED FOR ANXIETY 90 Tablet 2 2 023 Discontinued(Re fill) oxyCODONE HCl 5 MG Oral Tablet (Oxy IR)Indications:Chr onic pain syndrome Take 1 Tablet by mouth every 6 hours as needed for Pain, Severe. 100 Tablet 0 3 023 Discontinued documented as of this encounter (statuses as of 02/12/2023) Active Problems Problem Noted Date Chronic combined [...] ml/min) 05/11/2018 Coronary artery disease invo lving [place] [...] Overview: Modified by Acute [place] Protocol #5. [facility] right coronary bare metal stents S/P angioplasty with stent 09/07/2006 History of tobacco use documented as of this encounter (statuses as of 02/12/2023) Resolved Problems Problem Noted Date Resolved Date [...] for Patients with Cardiovascular Disease Project #: [id number] PI: Peyton Conn MD [phone] GENOMICS CARDIO RESEARCH OTHER*[id number] 200606/28/2016 Overview: Renamed Per Clinical Trials Billing Project. Study Title: Genomic Markers for Patients with Cardiovascular Disease Project #: [id number] PI: Peyton Conn MD [phone] LV (left ventricular) mural thrombus 10/30/2006 12/28/2017 Tobacco use disorder 09/07/2006 06/09/2009 Acute inferior myocardial infarction 08/19/2006 12/11/2008 Overview: Modified by Acute [place] Protocol #5. [facility] right coronary bare metal stents EXAMINATION OF PARTICIPANT IN CLINICAL TRIAL - H ORIZONS 08/19/2006 09/04/2009 Overview: Renamed Per Clinical Trials Billing Project. [facility] AMI clinical trial 263 Single blind trial comparing heparin and IIB/IIIA with bivalirudin, and Taxus vs bare metal stent. Patient Follow-up for 5 years Software Configuration Manager: Trent Verduzco [phone] [facility] Clinical Trial*[id number] 08/19/2006 09/08/2014 Overview: Renamed Per Clinical Trials Billing Project. [facility] AMI clinical trial 263 Single blind trial comparing heparin and IIB/IIIA with bivalirudin, and Taxus vs bare metal stent. Patient Follow-up for 5 years Software Configuration Manager: Trent Verduzco [phone] [facility] 08/29/2002 02/23/2017 LOC PRIM [id number] 05/29/2002 07/18/19 19 Dyslipidemia, goal to be determined 05/29/2002 05/07/2009 Overview: Per Lipid Taxonomy. FAM HX-DIABETES MELLITUS 05/29/2002 017 cystocoele 09/29/2017 Prolapse of vaginal celeste 2017 Overview: ICD-10 update of inactive term LEFT BB BLOCK NEC 07/18/2018 Other specified forms of chronic ischemic heart disease 02/23/2017 documented as of this encounter (statuses as of 02/12/2023) Immunizations Name Administration Dates Next Due COVID-19 [...] Day Cigarettes 0.3 20 Smokeless Tobacco: Never Tobacco Cessation:Ready to Q uit: Not Asked; Counseling Given: Not Answered Comments:"About 6 cigarettes a day." Alcohol Use [...] Sign Reading Time Taken Comments Blood Pressure - - Pulse 72 01/04/2023 5:03 PM EDT Temperature 35.9 C (96.6 F) 01/04/2023 5:03 PM ED T Respiratory Rate 16 01/04/2023 5:03 PM EDT Oxygen Saturation 99% 01/04/2023 5:03 PM EDT Inhaled Oxygen Concentration - - Weight 57.6 kg (127 lb) 01/04/2023 5:03 PM EDT Height - - Body Mass Index 23.25 06/02/2022 3:29 PM EST documented in this encounter Progress Notes * Pamela Lopez PA-C - 02/12/2023 3:47 PM EDT Subjective Radha Tong is a 77 year old female that presents for Hospital Follow-Up 77 y/o female presents for hospital discharge follow-up. Pt states she is not doing well, is very weak. She states her breathing at her baseline. She was admitted for COPD exacerbation. She has finished her antibiotics. Is using her oxygen. Overall feeling baseline from a breathing standpoint. She started having black, tarry diarrhea in the hospital. She states that she told her nurses and doctors, but "no one did anything about it." She continues with diarrhea daily and it is dark black, "disgusting." She is on Eliquis for DVT that she had in September and plavix for CAD. Taking both as prescribed. She notes she feels very weak, wobbly on her feet, difficulty keeping her balance. She denies fevers, chills, chest pain, SOB, nausea, vomiting, blood in the vomit. She notes that she has trouble getting to appointments and getting labs done because she doesn't drive. She had a possible seizure, is on Keppra, and now doesn't drive. Relies on others for her appointments. Is interested in [facility] if she qualifies. Objective Pulse 72 | Temp 35.9 C (96.6 F) | Resp 16 | Wt 57.6 kg (127 lb) | SpO2 99% | BMI 23.25 kg/m |BSA 1.59 m Body mass index is 23.25 kg/m. BP Readings from Last 3 Encounters: 10/14/22 114/74 06/02/22 112/60 02/24/22 115/61 Wt Readings from Last 3 Encounters: 01/04/23 57.6 kg (127 lb) 10/14/22 63.4 kg (139 lb 12.8 oz) 06/02/22 61.3 kg (135 lb 1.3 oz) Physical Exam Vitals and nursing note reviewed. Constitutional: General: She is not in acute distress. Appearance: She is ill-appearing. HENT: Head: Normocephalic and atraumatic. Eyes: General: No scleral icterus. Extraocular Movements: Extraocular movements intact. Conjunctiva/sclera: Conjunctivae normal. Pupils: Pupils are equal, round, and reactive to light. Cardiovascular: Rate and Rhythm: Normal rate and regular rhythm. Heart sounds: No murmur heard. No friction rub. No gallop. Pulmonary: Effort: Pulmonary effort is normal. Breath sounds: Normal breath sounds. No stridor. No wheezing, rhonchi or rales. Abdominal: General: Abdomen is flat. Bowel sounds are normal. Palpations: Abdomen is soft. Tenderness: There is abdominal tenderness (diffuse tenderness to light and deep palpation.). There is no right CVA tenderness, left CVA tenderness, guarding or rebound. Genitourinary: Rectum: Guaiac result positive. Skin: Coloration: Skin is pale. Findings: No rash. Neurological: General: No focal deficit present. Mental Status: She is alert and oriented to person, place, and time. Psychiatric: Mood and Affect: Mood normal. Behavior: Behavior normal. Assessment and plan 1. Hospital discharge follow-up 2. COPD exacerbation (HCC) - [facility] 3. Diarrhea, unspecified type - CBC WITH WBC DIFFERENTIAL AND ANEMIA REFLEX WORKUP; Future - IRON SCREEN, INCLUDING TIBC; Future - FERRITIN; Future - GASTROENTEROLOGY REFERRAL OP 4. Heme positive stool - CBC WITH WBC DIFFERENTIAL AND ANEMIA REFLEX WORKUP; Future - IRON SCREEN, INCLUDING TIBC; Future - FERRITIN; Future - GASTROENTEROLOGY REFERRAL OP - [facility] 5. Chronic combined systolic and diastolic congestive heart failure (HCC) - [facility] 6. Monoplegia, upper limb, nondominant side S/P CVA (cerebrovascular acc) ([facility]) - [facility] 7. Acute deep vein thrombosis (DVT) of proximal vein of right lower extremity ([facility]) -complex case given her comorbid conditions -she will get labs done MARCELINA- she has a friend that can take her tomorrow to check her CBC -heme positive- concern for GI bleed, however, it clearly has been ongoing for some time now- will plan to check labs for hgb and get her to GI for evaluation -with recent ABX use could be c diff concern- will await GI thoughts -with recent stroke and DVT, I do not feel safe d/c either of her Eliquis or plavix. We discussed this at length; if she passes out, notices increased Bms or BRBPR she is to go to the ER immediately -will plan to follow-up with her tomorrow once I see lab results re: going back to the hospital or outpatient management -[facility] referral -follow-up in 1 month, sooner if needed Follow up Follow-up: Return in about 4 weeks (around 02/01/2023). | Check-out note: With PCP Total time today including reviewing chart before the visit, pertinent labs, imaging reports, face to face time, and documentation time was 40 minutes. The above was discussed and understanding was expressed. Pamela Lopez PA-C documented in this encounter Plan of Treatment Upcoming Encounters Date Type Specialty Care Team Description 02/13/2023 Home Visit Family Medicine Cortney Benoit, [address] [place] [address] 04/19/2023 Office Visit Pharmacy [facility] [place] [address] Scheduled Orders Name Type Priority Associated Diagnoses Orde r Schedule CBC WITH WBC DIFFERENTIAL AND ANEMIA REFLEX WORKUP Lab Routine Diarrhea, unspecified type Heme positive stool Expected: 01/04/2023 (Approximate), Expires: 01/05/2024 IRON SCREEN, INCLUDING TIBC Lab Routine Diarrhea, unspecified type Heme positive stool Expected: 01/04/2023 (Approximate), Expires: 01/04/2024 FERRITIN Lab Routine Diarrhea, unspecified type Heme positive stool Expected: 01/04/2023 (Approximate), Expires: 01/04/2024 Scheduled Referrals Name Type Priority Associated Diagnoses Orde r Schedule GASTROENTEROLOGY REFERRAL OP Referral Within 3 days (urgent) Diarrhea, unspecified type Heme positive stool Ordered: 01/04/2023 [facility] Referral Within 3 days (urgent) Chronic combined systolic and diastolic congestive heart failure (HCC) COPD exacerbation (HCC) Heme positive stool Monoplegia, upper limb, nondominant side S/P CVA (cerebrovascular acc) (HCC) Ordered: 01/04/2023 Health Maintenance Due Date Last Done Comments DISCUSS TOBACCO CESSATION (REFER TO SMARTSET #0839) 1945 Alpha-1 Antitrypsin 1965 DIABETES-EYE EXAM 1965 Diabetic Foot Exam 1965 HbA1c 07/18/2007 01/15/2007, 07/22, 05/29/2002 DXA Scan 09/04/2016 09/04/2013, 09/04/2013 *ADVANCE DIRECTIVE NOT ON FILE 06/09/2019 COVID-19 Vaccine (3 - Moderna series) 01/07/2021 11/12/2020, 10/01/2020 Influenza Vaccine (FLU shot) (#1) 2023 02/21/2022, 02/03/2020, 01/31/2019, Additional history exists Albumin/Creatinine Ratio 02/21/2023 02/21/2022, 03/0 07/2019 GFR 04/09/2023 10/07/2022, 1007/2021, 12/09/2020, Additional history exists Depression Screening 06/02/2023 06/02/2022 CKD HGB USE SMARTSET 45280 10/08/202310/07, 02/21/2022, 12/09/2020, Additional history exists CKD PHOS USE SMARTSET 87289 10/08/202309/19, 02/21/2022, 07/18/2018 O2 ASSESSMENT COMPLETED IN [...] as of this encounter Visit Diagnoses Diagnosis Hospital discharge follow-up- Primary Other follow-up examination COPD exacerbation (HCC) Obstructive chronic bronchitis with exacerbation Diarrhea, unspecified type Heme positive stool Nonspecific abnormal finding in stool contents Chronic combined systolic and diastolic congestive heart failure (HCC) Chronic combined systolic and diastolic heart failure Monoplegia, upper limb, nondominant side S/P CVA (cerebrovascular acc) (HCC) 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 No Healthcare Agents on File Name Relationship Healthcare Agent Relationshi p Communication Lacy Tong Adult Child Health Care Repr esentative (appointed verbally by patient or by statute hierarchy) Care Teams Chemistry Quality Control Technician Relationship Specialty Start Date End Date Roman Ennis III, MD [address] [place] [address] PCP - General Family Medicine 06/28/18 documented as of this encounter
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
--- OUTSIDE RECORDS SUMMARY | 2023-06-29 05:37 | External Medical Summary | Summary of Care ---
Author Name Unknown Organization [facility] Address [address] [place] [address] Phone [phone] Care Team Providers Care Catalog Specialist Name Role Phone Loli NORWOOD MD, Roman Barraza Primary Care Provider [phone] Encounter Details Date Type Department Care Team Description 01/31/2023 Ciaio Lumite InjectorCommercial Trailer Truck Driver Practice [facility] [place] [address] [facility] [place] [address] Ciara Menendez, RN Medical home patient encounter* Allergies Active Allergy Reactions Severity Noted Date Comments Isosorbide Mononitrate 12/24/2007 Severe headaches Nsaids 05/29/2002 Tramadol Hcl Nausea/vomiting Low 01/09/2008 UGI distress documented as of this encounter (statuses as of 01/31/2023) Medications Medication Sig Dispensed Refills Start Date [...] MOUTH EVERY DAY 30 Tablet 10/21/2022 Active oxyCODONE HCl 5 MG Oral Tablet (Oxy IR)Indications:Chron ic pain syndrome Take 1 Tablet by mouth every 6 hours as needed for Pain, Severe. 100 Tablet 0 01/03/2023 Active Ondansetron HCl 4 MG Oral Tablet [...] the morning. 30 Tablet 5 01/04/2023 Active documented as of this encounter (statuses as of 01/31/2023) Active Problems Problem Noted Date Chronic combined [...] ml/min) 05/11/2018 Coronary artery disease invo lving [place] coronary artery of [place] heart without angina pectoris 05/08/2018 Anxiety state [...] Overview: Modified by Acute [place] Protocol #5. [facility] right coronary bare metal stents S/P angioplasty with stent 09/07/2006 History of tobacco use documented as of this encounter (statuses as of 01/31/2023) Resolved Problems Problem Noted Date Resolved Date [...] for Patients with Cardiovascular Disease Project #: [id number] PI: Peyton Conn MD [phone] GENOMICS CARDIO RESEARCH OTHER*[id number] 200606/28/2016 Overview: Renamed Per Clinical Trials Billing Project. Study Title: Genomic Markers for Patients with Cardiovascular Disease Project #: [id number] PI: Peyton Conn MD [phone] LV (left ventricular) mural thrombus 10/30/2006 12/28/2017 Tobacco use disorder 09/07/2006 06/09/2009 Acute inferior myocardial infarction 08/19/2006 12/11/2008 Overview: Modified by Acute CT Protocol #5. [facility] right coronary bare metal stents EXAMINATION OF PARTICIPANT IN CLINICAL TRIAL - H ORIZONS 08/19/2006 09/04/2009 Overview: Renamed Per Clinical Trials Billing Project. [facility] AMI clinical trial 263 Single blind trial comparing heparin and IIB/IIIA with bivalirudin, and Taxus vs bare metal stent. Patient Follow-up for 5 years Ending Machine Operator: Trent Verduzco [phone] [facility] Clinical Trial*[id number] 08/19/2006 09/08/2014 Overview: Renamed Per Clinical Trials Billing Project. [facility] AMI clinical trial 263 Single blind trial comparing heparin and IIB/IIIA with bivalirudin, and Taxus vs bare metal stent. Patient Follow-up for 5 years Ending Machine Operator: Trent Verduzco [phone] Menopause 08/29/2002 02/23/2017 LOC PRIM [id number] 05/29/2002 07/18/19 19 Dyslipidemia, goal to be determined 05/29/2002 05/07/2009 Overview: Per Lipid Taxonomy. FAM HX-DIABETES MELLITUS 05/29/2002 017 cystocoele 09/29/2017 Prolapse of vaginal celeste 2017 Overview: ICD-10 update of inactive term LEFT BB BLOCK NEC 07/18/2018 Other specified forms of chronic ischemic heart disease 02/23/2017 documented as of this encounter (statuses as of 01/31/2023) Immunizations Name Administration Dates Next Due COVID-19 [...] Progress Notes * Ciara Menendez RN - 01/31/2023 2:46 PM EDT Follow-up Post Discharge Attempted Phone Call Third Attempt Call Outcome Unable to Leave Message Plan To attempt another outreach Sent to [facility] for cold call documented in this encounter Plan of Treatment Upcoming Encounters Date Type Specialty Care Team Description 02/07/2023 Office Visit Neurology Precious Dominguez PA-C [address] [place] [address] 02/13/2023 Home Visit Family Medicine Cortney Benoit, [address] [place] [address] 04/19/2023 Office Visit Pharmacy [facility] [address] [facility] [address] Health Maintenance Due Date Last Done Comments DISCUSS TOBACCO CESSATION (REFER TO SMARTSET #2253) 1945 Alpha-1 Antitrypsin 1965 DIABETES-EYE EXAM 1965 Diabetic Foot Exam 1965 HbA1c 07/18/2007 01/15/2007, 07/22, 05/29/2002 DXA Scan 09/04/2016 09/04/2013, 09/04/2013 *ADVANCE DIRECTIVE NOT ON FILE 06/09/2019 COVID-19 Vaccine (3 - Moderna series) 01/07/2021 11/12/2020, 10/01/2020 Influenza Vaccine (FLU shot) (#1) 2023 02/21/2022, 02/03/2020, 01/31/2019, Additional history exists Albumin/Creatinine Ratio 02/21/2023 02/21/2022, 07/2019 GFR 04/09/2023 10/07/2022, 1007/2021, 12/09/2020, Additional history exists Depression Screening 06/02/2023 06/02/2022 CKD HGB USE SMARTSET 29897 10/08/202310/07, 02/21/2022, 12/09/2020, Additional history exists CKD PHOS USE SMARTSET 33044 10/08/202309/19, 02/21/2022, 07/18/2018 O2 ASSESSMENT COMPLETED IN [...] the patient have Health Care Power of Ending Machine Operator? No Healthcare Agents on File Name Relationship Healthcare Agent Relationshi p Communication Lacy Tong Adult Child Health Care Repr esentative (appointed verbally by patient or by statute hierarchy) Care Teams Catalog Specialist Relationship Specialty Start Date End Date Roman Ennis III, MD [address] [place] [address] PCP - General Family Medicine 06/28/18 documented as of this encounter
--- OUTSIDE RECORDS SUMMARY | 2023-06-29 05:37 | External Medical Summary | Summary of Care ---
Author Name Unknown Organization [facility] Address [address] [place] [address] Phone [phone] Care Team Providers Care Therapeutic Sales Specialist Name Role Phone Loli NORWOOD MD, Roman Barraza Primary Care Provider [phone] Encounter Details Date Type Department Care Team Description 02/10/2023 [facility]el[facility] MakerElementary Secretary Practice [address] [address] Ciara Menendez, RN Medical home patient encounter* Allergies Active Allergy Reactions Severity Noted Date Comments Isosorbide Mononitrate 12/24/2007 Severe headaches Nsaids 05/29/2002 Tramadol Hcl Nausea/vomiting Low 01/09/2008 UGI distress documented as of this encounter (statuses as of 02/10/2023) Medications Medication Sig Dispensed Refills Start Date [...] as of this encounter (statuses as of 02/10/2023) Active Problems Problem Noted Date Chronic combined [...] ml/min) 05/11/2018 Coronary artery disease invo lving [place] coronary artery of [place] heart without angina pectoris 05/08/2018 Anxiety state 05/08/2018 ADVANCE DIRECTIVE INFORMATION 03/23/2018 Overview: No, Advance Directive brochure offered , patient declined. Incomplete uterovaginal prolapse 05/11/2 018 Cystocele, lateral 09/29/2017 Vaginal atrophy 09/29/2017 [...] MYOCARDIAL INFARCT 12/11/2008 Overview: Modified by Acute [place] Protocol #5. [facility] right coronary bare metal stents S/P angioplasty with stent 09/07/2006 History of tobacco use documented as of this encounter (statuses as of 02/10/2023) Resolved Problems Problem Noted Date Resolved Date [...] for Patients with Cardiovascular Disease Project #: [id number] PI: Peyton Conn MD [phone] GENOMICS CARDIO RESEARCH OTHER*[id number] 200606/28/2016 Overview: Renamed Per Clinical Trials Billing Project. Study Title: Genomic Markers for Patients with Cardiovascular Disease Project #: [id number] PI: Peyton Conn MD [phone] LV (left ventricular) mural thrombus 10/30/2006 12/28/2017 Tobacco use disorder 09/07/2006 06/09/2009 Acute inferior myocardial infarction 08/19/2006 12/11/2008 Overview: Modified by Acute [place] Protocol #5. [facility] right coronary bare metal stents EXAMINATION OF PARTICIPANT IN CLINICAL TRIAL - H ORIZONS 08/19/2006 09/04/2009 Overview: Renamed Per Clinical Trials Billing Project. [facility] AMI clinical trial 263 Single blind trial comparing heparin and IIB/IIIA with bivalirudin, and Taxus vs bare metal stent. Patient Follow-up for 5 years Cane Furniture Maker: Trent Verduzco [phone] [facility] Clinical Trial*[id number] 08/19/2006 09/08/2014 Overview: Renamed Per Clinical Trials Billing Project. [facility] AMI clinical trial 263 Single blind trial comparing heparin and IIB/IIIA with bivalirudin, and Taxus vs bare metal stent. Patient Follow-up for 5 years Cane Furniture Maker: Trent Verduzco [phone] Menopause 08/29/2002 02/23/2017 LOC PRIM [id number] 05/29/2002 07/18/19 19 Dyslipidemia, goal to be determined 05/29/2002 05/07/2009 Overview: Per Lipid Taxonomy. FAM HX-DIABETES MELLITUS 05/29/2002 017 cystocoele 09/29/2017 Prolapse of vaginal celeste 2017 Overview: ICD-10 update of inactive term LEFT BB BLOCK NEC 07/18/2018 Other specified forms of chronic ischemic heart disease 02/23/2017 documented as of this encounter (statuses as of 02/10/2023) Immunizations Name Administration Dates Next Due COVID-19 [...] Progress Notes * Ciara Menendez RN - 02/10/2023 1:29 PM EDT Follow-up Post Discharge Attempted Phone Call 4th attempt -phone is "currently not accepting calls" Call Outcome Unable to Leave Message Plan MARILYN cold call scheduled for 02/13. Will continue to attempt to outreach. documented in this encounter Plan of Treatment Upcoming Encounters Date Type Specialty Care Team Description 02/13/2023 Home Visit Family Medicine Cortney Benoit, Community Health Room Service Manager [address] [place] [address] [place] [address] 04/19/2023 Office Visit Pharmacy [facility] [address] [place] [address] Health Maintenance Due Date Last Done Comments DISCUSS TOBACCO CESSATION (REFER TO SMARTSET #0760) 1945 Alpha-1 Antitrypsin 1965 DIABETES-EYE EXAM 1965 [...] Screening 06/02/2023 06/02/2022 CKD HGB USE SMARTSET 84304 10/08/202310/07, 02/21/2022, 12/09/2020, Additional history exists CKD PHOS USE SMARTSET 64701 10/08/202309/19, 02/21/2022, 07/18/2018 O2 ASSESSMENT COMPLETED IN [...] the patient have Health Care Power of Chemist Proteins? No Healthcare Agents on File Name Relationship Healthcare Agent [facility] Communication Lacy Tong Adult Child Health Care Repr esentative (appointed verbally by patient or by statute hierarchy) Care Teams Therapeutic Sales Specialist Relationship Specialty Start Date End Date Roman Ennis III, MD [address] [place] [address] PCP - General Family Medicine 06/28/18 documented as of this encounter
--- OUTSIDE RECORDS SUMMARY | 2023-06-29 05:37 | External Medical Summary | Summary of Care ---
Author Name Unknown Organization [facility] Address [address] [place] [address] Phone [phone] Care Team Providers Care Materials Clerk Name Role Phone Loli NORWOOD MD, Roman Barraza Primary Care Provider [phone] Reason for Visit * Reason Comments [facility] Care Coordination Services Encounter Details Date Type Department Care Team Description 02/13/2023 Home Visit Care Coordination [address], [place] [id number] Cortney Benoit Community Health Lead Auditor [address] [place] [address] [place] [address] Allergies Active Allergy Reactions Severity Noted Date Comments Isosorbide Mononitrate 12/24/2007 Severe headaches Nsaids 05/29/2002 Tramadol Hcl Nausea/vomiting Low 01/09/2008 UGI distress documented as of this encounter (statuses as of 02/13/2023) Medications Medication Sig Dispensed Refills Start Date [...] as of this encounter (statuses as of 02/13/2023) Active Problems Problem Noted Date Chronic combined [...] ml/min) 05/11/2018 Coronary artery disease invo lving [place] coronary artery of [place] heart without angina pectoris 05/08/2018 Anxiety state [...] Overview: Modified by Acute [place] Protocol #5. [facility] right coronary bare metal stents S/P angioplasty with stent 09/07/2006 History of tobacco use documented as of this encounter (statuses as of 02/13/2023) Resolved Problems Problem Noted Date Resolved Date [...] for Patients with Cardiovascular Disease Project #: [id number] PI: Peyton Conn MD [phone] GENOMICS CARDIO RESEARCH OTHER*[id number] 200606/28/2016 Overview: Renamed Per Clinical Trials Billing Project. Study Title: Genomic Markers for Patients with Cardiovascular Disease Project #: [id number] PI: Peyton Conn MD [phone] LV (left ventricular) mural thrombus 10/30/2006 12/28/2017 Tobacco use disorder 09/07/2006 06/09/2009 Acute inferior myocardial infarction 08/19/2006 12/11/2008 Overview: Modified by Acute [place] Protocol #5. [facility] right coronary bare metal stents EXAMINATION OF PARTICIPANT IN CLINICAL TRIAL - H ORIZONS 08/19/2006 09/04/2009 Overview: Renamed Per Clinical Trials Billing Project. [facility] AMI clinical trial 263 Single blind trial comparing heparin and IIB/IIIA with bivalirudin, and Taxus vs bare metal stent. Patient Follow-up for 5 years Tacking Machine Operator: Trent Verduzco [phone] [facility] Clinical Trial*[id number] 08/19/2006 09/08/2014 Overview: Renamed Per Clinical Trials Billing Project. [facility] AMI clinical trial 263 Single blind trial comparing heparin and IIB/IIIA with bivalirudin, and Taxus vs bare metal stent. Patient Follow-up for 5 years Tacking Machine Operator: Trent Verduzco [phone] Menopause 08/29/2002 02/23/2017 LOC PRIM [id number] 05/29/2002 07/18/19 Dyslipidemia, goal to be determined 05/29/2002 05/07/2009 Overview: Per Lipid Taxonomy. FAM HX-DIABETES MELLITUS 05/29/2002 017 cystocoele 09/29/2017 Prolapse of vaginal celeste 2017 Overview: ICD-10 update of inactive term LEFT BB BLOCK NEC 07/18/2018 Other specified forms of chronic ischemic heart disease 02/23/2017 documented as of this encounter (statuses as of 02/13/2023) Immunizations Name Administration Dates Next Due COVID-19 [...] as of this encounter Progress Notes * Karena Adames Health Lead Auditor - 02/13/2023 4:02 PM EDT Cold visit Community Health Lead Auditor attempted to complete cold home visit today. Community Health Lead Auditor: Placed phone call to patient, unable to leave voicemail Left door person pamphlet for patient Arrived to patient's home. All lights out. No car in driveway. No answer at the door. Teams message to RNCM to make aware of above. documented in this encounter Plan of Treatment Upcoming Encounters Date Type Specialty Care Team Description 02/27/2023 Scheduled Telephone [facility] Metallographer, Jose Reynolds [facility] [address] [place] [address] 04/19/2023 Office Visit Pharmacy [facility] Lori [address] [place] [address] Health Maintenance Due Date Last Done Comments DISCUSS TOBACCO CESSATION (REFER TO SMARTSET #7206) 1945 Alpha-1 Antitrypsin 1965 DIABETES-EYE EXAM 1965 [...] Screening 06/02/2023 06/02/2022 CKD HGB USE SMARTSET 55550 10/08/202310/07, 02/21/2022, 12/09/2020, Additional history exists CKD PHOS USE SMARTSET 38155 10/08/202309/19, 02/21/2022, 07/18/2018 O2 ASSESSMENT COMPLETED IN [...] the patient have Health Care Power of Party Plan Dealer? No Healthcare Agents on File Name Relationship Healthcare Agent Relationshi p Communication Lacy Tong Adult Child Health Care Repr esentative (appointed verbally by patient or by statute hierarchy) Care Teams Materials Clerk Relationship Specialty Start Date End Date Roman Ennis III, MD [address] [place] [address] [place] [address] PCP - General Family Medicine 06/28/18 documented as of this encounter
--- OUTSIDE RECORDS SUMMARY | 2023-06-29 05:37 | External Medical Summary | Summary of Care ---
Author Name Unknown Organization [facility] Address [address] [place] [address] Phone [phone] Care Team Providers Care Mental Health Orderly Name Role Phone Loli NORWOOD MD, Roman Barraza Primary Care Provider [phone] Reason for Visit * Reason Onset Date Comments [facility]: Screening 02/14/2023 Encounter Details Date Type Department Care Team Description 02/14/2023 Telephone [facility], [facility] [address] [facility] [place] [address] [facility], Nurse [facility] [address] [facility] [place] [address] [facility]: Screening Allergies Active Allergy [...] ml/min) 05/11/2018 Coronary artery disease invo lving [place] coronary artery of [place] heart without angina pectoris 05/08/2018 Anxiety state [...] MYOCARDIAL INFARCT 12/11/2008 Overview: Modified by Acute [place] Protocol #5. [facility] right coronary bare metal stents S/P angioplasty [...] for Patients with Cardiovascular Disease Project #: [id number] PI: Peyton Conn MD [phone] GENOMICS CARDIO RESEARCH OTHER*[id number] 200606/28/2016 Overview: Renamed Per Clinical Trials Billing Project. Study Title: Genomic Markers for Patients with Cardiovascular Disease Project #: [id number] PI: Peyton Conn MD [phone] LV (left ventricular) mural thrombus 10/30/2006 12/28/2017 Tobacco use disorder 09/07/2006 06/09/2009 Acute inferior myocardial infarction 08/19/2006 12/11/2008 Overview: Modified by Acute [place] Protocol #5. [facility] right coronary bare metal stents EXAMINATION OF PARTICIPANT IN CLINICAL TRIAL - H ORIZONS 08/19/2006 09/04/2009 Overview: Renamed Per Clinical Trials Billing Project. [facility] AMI clinical trial 263 Single blind trial comparing heparin and IIB/IIIA with bivalirudin, and Taxus vs bare metal stent. Patient Follow-up for 5 years Data Virtualization Consultant: Trent Verduzco [phone] [facility] Clinical Trial*[id number] 08/19/2006 09/08/2014 Overview: Renamed Per Clinical Trials Billing Project. [facility] AMI clinical trial 263 Single blind trial comparing heparin and IIB/IIIA with bivalirudin, and Taxus vs bare metal stent. Patient Follow-up for 5 years Data Virtualization Consultant: Trent Verduzco [phone] [facility] 08/29/2002 02/23/2017 LOC PRIM [id number] 05/29/2002 07/18/19 19 Dyslipidemia, goal to be [...] Referring care team was notified via : Tapstream communication documented in this encounter Plan of Treatment Upcoming Encounters Date Type Specialty Care Team Description 02/27/2023 Scheduled Telephone [facility] Supervisor Cook House, Jose [facility] [address] [place] [address] 04/19/2023 Office Visit Pharmacy [facility] [address] [place] [address] Health Maintenance Due Date Last Done Comments [...] 02/21/2023 02/21/2022, 030 07/2019 GFR 04/09/2023 10/07/2022, 1007/2021, 12/09/2020, Additional history exists Depression Screening 06/02/2023 06/02/2022 CKD HGB USE SMARTSET 46512 10/08/202310/07, 02/21/2022, 12/09/2020, Additional history exists CKD PHOS USE SMARTSET 53187 10/08/202309/19, 02/21/2022, 07/18/2018 O2 ASSESSMENT COMPLETED IN [...] the patient have Health Care Power of Insurance Agency Owner? No Healthcare Agents on File Name Relationship Healthcare Agent Relationshi p Communication Lacy Tong Adult Child Health Care Repr esentative (appointed verbally by patient or by statute hierarchy) Care Teams Mental Health Orderly Relationship Specialty Start Date End Date Roman Ennis III, MD [address] [place] [address] PCP - General Family Medicine 06/28/18 documented as of this encounter
--- OUTSIDE RECORDS SUMMARY | 2023-06-29 05:37 | External Medical Summary | Summary of Care ---
Author Name Unknown Organization [facility] Address [address] [place] [address] Phone [phone] Care Team Providers Care Special Warfare Boat Operator Name Role Phone Loli NORWOOD MD, Roman Barraza Primary Care Provider [phone] Reason for Visit * Reason Onset Date Comments Fax 02/09/2023 [facility]: Maintenance 02/09/2023 Encounter Details Date Type Department Care Team Description 02/09/2023 Telephone Family Practice [facility] [place] [address] [facility] [place] [address] Roman Ennis III, MD [address] [facility] [address] Fax; [facility]: Maintenance Allergies Active [...] ml/min) 05/11/2018 Coronary artery disease invo lving [place] coronary artery of [place] heart without angina pectoris 05/08/2018 Anxiety state [...] MYOCARDIAL INFARCT 12/11/2008 Overview: Modified by Acute [place] Protocol #5. [facility] right coronary bare metal stents S/P angioplasty [...] for Patients with Cardiovascular Disease Project #: [id number] PI: Peyton Conn MD [phone] GENOMICS CARDIO RESEARCH OTHER*[id number] 200606/28/2016 Overview: Renamed Per Clinical Trials Billing Project. Study Title: Genomic Markers for Patients with Cardiovascular Disease Project #: [id number] PI: Peyton Conn MD [phone] LV (left ventricular) mural thrombus 10/30/2006 12/28/2017 Tobacco use disorder 09/07/2006 06/09/2009 Acute inferior myocardial infarction 08/19/2006 12/11/2008 Overview: Modified by Acute [place] Protocol #5. [facility] right coronary bare metal stents EXAMINATION OF PARTICIPANT IN CLINICAL TRIAL - H ORIZONS 08/19/2006 09/04/2009 Overview: Renamed Per Clinical Trials Billing Project. [facility] AMI clinical trial 263 Single blind trial comparing heparin and IIB/IIIA with bivalirudin, and Taxus vs bare metal stent. Patient Follow-up for 5 years Banquet Kitchen Supervisor: Trent Verduzco [phone] [facility] Clinical Trial*[id number] 08/19/2006 09/08/2014 Overview: Renamed Per Clinical Trials Billing Project. [facility] AMI clinical trial 263 Single blind trial comparing heparin and IIB/IIIA with bivalirudin, and Taxus vs bare metal stent. Patient Follow-up for 5 years Banquet Kitchen Supervisor: Trent Verduzco [phone] [facility] 08/29/2002 02/23/2017 LOC PRIM [id number] 05/29/2002 07/18/19 19 Dyslipidemia, goal to be [...] Miscellaneous Notes * Telephone Encounter - OPAL Ruiz - 02/13/2023 8:21 AM EDT Per request, sent [facility] letter to patient and scheduled 2 [...] the pt's condition (Physican Certification0 Indepen. Enrollment Customs Verifier ) Please call above number after it is filled out Thanks documented in this encounter Plan of Treatment Upcoming Encounters Date Type Specialty Care Team Description 02/13/2023 Home Visit Family Medicine Cortney Benoit, Community Health Inspector [employer] [address] [place] [address] [place] [address] 02/27/2023 Scheduled Telephone [facility] Building Maintenance Custodian[facility] [address] [place] [address] 04/19/2023 [facility] [address] [place] [address] Health Maintenance Due Date Last Done Comments [...] Screening 06/02/2023 06/02/2022 CKD HGB USE SMARTSET 33782 10/08/202310/07, 02/21/2022, 12/09/2020, Additional history exists CKD PHOS USE SMARTSET 17943 10/08/2023 0501/2023, 02/21/2022, 07/18/2018 O2 ASSESSMENT COMPLETED [...] the patient have Health Care Power of Supervisor Phosphoric Acid? No Healthcare Agents on File Name Relationship Healthcare Agent Relationshi p Communication Lacy Tong Adult Child Health Care Repr esentative (appointed verbally by patient or by statute hierarchy) Care Teams Special Warfare Boat Operator Relationship Specialty Start Date End Date Roman Ennis III, MD [address] [place] [address] PCP - General Family Medicine 06/28/18 documented as of this encounter
--- OUTSIDE RECORDS SUMMARY | 2023-06-29 05:37 | External Medical Summary | Summary of Care ---
Author Name Unknown Organization [facility] Address [address] [place] [address] Phone [phone] Care Team Providers Care Banquet Steward Name Role Phone Loli NORWOOD MD, Roman Barraza Primary Care Provider [phone] Reason for Visit * Reason Comments [facility] Care Coordination Services Encounter Details Date Type Department Care Team Description 02/13/2023 Home Visit Care Coordination [address], [place] [id number] [facility] Photographic Laboratory Technician [address] [place] [address] [place] [address] Allergies Active Allergy Reactions Severity [...] ml/min) 05/11/2018 Coronary artery disease invo lving [place] coronary artery of [place] heart without angina pectoris 05/08/2018 Anxiety [...] Overview: Modified by Acute [place] Protocol #5. [facility] right coronary bare [...] for Patients with Cardiovascular Disease Project #: [id number] PI: Peyton Conn MD [phone] GENOMICS CARDIO RESEARCH OTHER*[id number] 200606/28/2016 Overview: Renamed Per Clinical Trials Billing Project. Study Title: Genomic Markers for Patients with Cardiovascular Disease Project #: [id number] PI: Peyton Conn MD [phone] LV (left ventricular) mural thrombus 10/30/2006 12/28/2017 Tobacco use disorder 09/07/2006 06/09/2009 Acute inferior myocardial infarction 08/19/2006 12/11/2008 Overview: Modified by Acute [place] Protocol #5. [facility] right coronary bare metal stents EXAMINATION OF PARTICIPANT IN CLINICAL TRIAL - H ORIZONS 08/19/2006 09/04/2009 Overview: Renamed Per Clinical Trials Billing Project. [facility] AMI clinical trial 263 Single blind trial comparing heparin and IIB/IIIA with bivalirudin, and Taxus vs bare metal stent. Patient Follow-up for 5 years Forming Roll Operator: Trent Verduzco [phone] [facility] Clinical Trial*[id number] 08/19/2006 09/08/2014 Overview: Renamed Per Clinical Trials Billing Project. [facility] AMI clinical trial 263 Single blind trial comparing heparin and IIB/IIIA with bivalirudin, and Taxus vs bare metal stent. Patient Follow-up for 5 years Forming Roll Operator: Trent Verduzco [phone] Menopause 08/29/2002 02/23/2017 LOC PRIM [id number] 05/29/2002 07/18/19 Dyslipidemia, goal to be determined [...] encounter Progress Notes * [facility] Photographic Laboratory Technician - 02/13/2023 4:02 PM EDT Cold visit [facility] Photographic Laboratory Technician attempted to complete cold home visit today. [facility] Photographic Laboratory Technician: Placed phone call to patient, unable to leave voicemail Left garage door hanger pamphlet for patient Arrived to patient's home. All lights out. No car in driveway. No answer at the door. Teams message to RNCM to make aware of above. documented in this encounter Plan of Treatment Upcoming Encounters Date Type Specialty Care Team Description 02/27/2023 Scheduled Telephone [facility], Jose [facility] [address] [place] [address] 04/19/2023 Office Visit Pharmacy [facility] [address] [place] [address] Health Maintenance Due Date Last Done Comments DISCUSS TOBACCO CESSATION (REFER TO SMARTSET #4604) 1945 Alpha-1 Antitrypsin 1965 DIABETES-EYE EXAM 1965 [...] Screening 06/02/2023 06/02/2022 CKD HGB USE SMARTSET 49216 10/08/202310/07, 02/21/2022, 12/09/2020, Additional history exists CKD PHOS USE SMARTSET 21204 10/08/202309/19, 02/21/2022, 07/18/2018 O2 ASSESSMENT COMPLETED IN [...] the patient have Health Care Power of Tetryl Dissolver Operator? No Healthcare Agents on File Name Relationship Healthcare Agent Relationshi p Communication Lacy Tong Adult Child Health Care Repr esentative (appointed verbally by patient or by statute hierarchy) Care Teams Banquet Steward Relationship Specialty Start Date End Date Roman Ennis III, MD [address] [place] [address] [place] [address] PCP - General Family Medicine 06/28/18 documented as of this encounter
--- OUTSIDE RECORDS SUMMARY | 2023-06-29 05:37 | External Medical Summary | Summary of Care ---
Author Name Unknown Organization [facility] Address [address] [place] [address] Phone [phone] Care Team Providers Care Cosmetology Educator Name Role Phone Loli NORWOOD MD, Marilyn Barraza Primary Care Provider [phone] Reason for Visit * Reason Comments eRx-Medication Refill Encounter Details Date Type Department Care Team Description 01/31/2023 [facility] [place] [address] [facility] [place] [address] Soham Cos[place], [address] [facility] [place] [address] Chronic pain syndrome Allergies Active Allergy Reactions Severity Noted Date Comments Isosorbide Mononitrate 12/24/2007 Severe headaches Nsaids 05/29/2002 Tramadol Hcl Nausea/vomiting Low 01/09/2008 UGI distress documented as of this encounter (statuses as of 02/02/2023) Medications Medication Sig Dispensed Refills Start Date End Date Status Aspirin 81 MG TabletIndications:F /u of acute inferior myocardial infarction Take 1 Tablet by mouth in the morning. 0 7 Active nitroglycerin (NITROSTAT) 0.4 MG SUBLIndications:ASC VD [...] oxyCODONE HCl 5 MG Oral Tablet (Oxy IR)Indications:[place] fernando pain syndrome TAKE ONE TABLET BY MOUTH EVERY 6 HOURS NEEDED FOR PAIN 100 Tablet 0 3 Active oxyCODONE HCl 5 MG Oral Tablet (Oxy IR)Indications:[place] fernando pain syndrome Take 1 Tablet by mouth every 6 hours as needed for Pain, Severe. 100 Tablet 0 3 02/03/20 23 Discontinued documented as of this encounter (statuses as of 02/02/2023) Active Problems Problem Noted Date Chronic combined [...] ml/min) 05/11/2018 Coronary artery disease invo lving [place] coronary artery of [place] heart without angina pectoris 05/08/2018 Anxiety state [...] MYOCARDIAL INFARCT 12/11/2008 Overview: Modified by Acute [place] Protocol #5. [facility] right coronary bare metal stents S/P angioplasty with stent 09/07/2006 History of tobacco use documented as of this encounter (statuses as of 02/02/2023) Resolved Problems Problem Noted Date Resolved Date [...] for Patients with Cardiovascular Disease Project #: [id number] PI: Peyton Conn MD [phone] GENOMICS CARDIO RESEARCH OTHER*[id number] 200606/28/2016 Overview: Renamed Per Clinical Trials Billing Project. Study Title: Genomic Markers for Patients with Cardiovascular Disease Project #: [id number] PI: Peyton Conn MD [phone] LV (left ventricular) mural thrombus 10/30/2006 12/28/2017 Tobacco use disorder 09/07/2006 06/09/2009 Acute inferior myocardial infarction 08/19/2006 12/11/2008 Overview: Modified by Acute [place] Protocol #5. [facility] right coronary bare metal stents EXAMINATION OF PARTICIPANT IN CLINICAL TRIAL - H ORIZONS 08/19/2006 09/04/2009 Overview: Renamed Per Clinical Trials Billing Project. [facility] AMI clinical trial 263 Single blind trial comparing heparin and IIB/IIIA with bivalirudin, and Taxus vs bare metal stent. Patient Follow-up for 5 years Nuclear Licensing Engineer: Trent Verduzco [phone] [facility] Clinical Trial*[id number] 08/19/2006 09/08/2014 Overview: Renamed Per Clinical Trials Billing Project. [facility] AMI clinical trial 263 Single blind trial comparing heparin and IIB/IIIA with bivalirudin, and Taxus vs bare metal stent. Patient Follow-up for 5 years Nuclear Licensing Engineer: Trent Verduzco [phone] Menopause 08/29/2002 02/23/2017 LOC PRIM [id number] 05/29/2002 07/18/19 19 Dyslipidemia, goal to be determined 05/29/2002 05/07/2009 Overview: Per Lipid Taxonomy. FAM HX-DIABETES MELLITUS 05/29/2002 017 cystocoele 09/29/2017 Prolapse of vaginal celeste 2017 Overview: ICD-10 update of inactive term LEFT BB BLOCK NEC 07/18/2018 Other specified forms of chronic ischemic heart disease 02/23/2017 documented as of this encounter (statuses as of 02/02/2023) Immunizations Name Administration Dates Next Due COVID-19 [...] Encounter - Marilyn Nogueira III, MD - 02/02/2023 7:41 AM EDTSigned Prescriptions: Disp Refills oxyCODONE HCl 5 MG Oral Tablet (Oxy IR) 100 Ta*0 Sig: TAKE ONE TABLET BY MOUTH EVERY 6 HOURS NEEDED FOR PAINAuthorizing Provider: MARILYN NOGUEIRA III * Telephone Encounter - Mae Tucker [facility] - 02/01/2023 5:14 PM EDTPending Prescriptions: Disp Refills oxyCODONE HCl 5 MG Oral Tablet [Pharmacy M*100 Ta*0 Sig: TAKE ONE TABLET BY MOUTH EVERY 6 HOURS NEEDED FOR PAIN * Telephone Encounter - Mae Tucker RPh - 02/01/2023 5:13 PM EDT I have reviewed the patients controlled substance dispensing history in the Prescription Drug Monitoring Program in compliance with the [facility] regulations before prescribing a controlled substance. PDMP checked on 02/01/2023. Pending Prescriptions: Disp Refills oxyCODONE HCl 5 MG Oral Tablet (Oxy IR) [*100 Ta*0 Sig: TAKE ONE TABLET BY MOUTH EVERY 6 HOURS NEEDED FOR PAIN Last Visit: 01/04/2023 (in office), 08/24/2020 (telemedicine) Next Visit: Visit date not found Date medication was last filled: 01/03/2023 Date medication is due for refill: 01/27/2023 Pharmacy: [facility], [address] DAMIAN BARNEY Is this request for [...] Review. Please approve if appropriate. Thank you, Mae Tucker [facility] Clinical Pharmacist Centralized Clinical Pharmacy Services (CCPS) (formerly Telepharmacy) 02/01/23 5:13 PM [phone] documented in this encounter Plan of Treatment Upcoming Encounters Date Type Specialty Care Team Description 02/07/2023 Office Visit Neurology Precious Dominguez PA-C [address] [facility] [place] [address] 02/13/2023 Home Visit Family Medicine [facility] [address] [place] [address] 04/19/2023 Office Visit Pharmacy [facility] [address] [place] [address] Health Maintenance Due Date Last Done Comments [...] Ratio 02/21/2023 02/21/2022, 0307/2019 GFR 04/09/2023 10/07/2022, 1007/2021, 12/09/2020, Additional history exists Depression Screening 06/02/2023 06/02/2022 CKD HGB USE SMARTSET 30405 10/08/202310/07, 02/21/2022, 12/09/2020, Additional history exists CKD PHOS USE SMARTSET 90361 10/08/2023 0501/2023, 02/21/2022, 07/18/2018 O2 ASSESSMENT COMPLETED [...] the patient have Health Care Power of Spinner Operator? No Healthcare Agents on File Name Relationship Healthcare Agent Relationshi p Communication Lacy Tong Adult Child Health Care Repr esentative (appointed verbally by patient or by statute hierarchy) Care Teams Cosmetology Educator Relationship Specialty Start Date End Date Marilyn Nogueira III, MD [address] [place] [address] PCP - General Family Medicine 06/28/18 documented as of this encounter
--- OUTSIDE RECORDS SUMMARY | 2023-06-29 05:38 | External Medical Summary | Summary of Care ---
Author Name Unknown Organization [facility] Address [address] [place] [address] Phone [phone] Care Team Providers Care Broom Bundler Name Role Phone Loli NORWOOD MD, Roman Barraza Primary Care Provider [phone] Encounter Details Date Type Department Care Team Description 12/28/2022 Telephone Gastroenterology, [facility] [address] [place] [address] Ramila Quiros CRNP [address] [place] [address] Allergies Active Allergy Reactions Severity Noted Date Comments Isosorbide Mononitrate 12/24/2007 Severe headaches Nsaids 05/29/2002 Tramadol Hcl Nausea/vomiting Low 01/09/2008 UGI distress documented as of this encounter (statuses as of 01/26/2023) Medications Medication Sig Dispensed Refills Start Date [...] DAILY NEEDED FOR ANXIETY 90 Tablet 2 09/16/2021 01/05/20 23 Discontinu ed(Refill) Ondansetron HCl 4 MG Oral Tablet (Zofran)Indications :Nausea Take 1 Tablet by mouth every 8 hours as needed for Nausea. 20 Tablet 0 10/19/2022 01/03/20 23 Discontinu ed(Refill) oxyCODONE HCl 5 MG Oral Tablet (Oxy IR)Indications:[place] fernando pain syndrome Take 1 Tablet by mouth every 6 hours as needed for Pain, Severe. 100 Tablet 0 12/09/2022 01/03/20 Discontinu ed(Refill) documented as of this encounter (statuses as of 01/26/2023) Active Problems Problem Noted Date Chronic combined [...] ml/min) 05/11/2018 Coronary artery disease invo lving [place] coronary artery of [place] heart without angina pectoris 05/08/2018 Anxiety state [...] Overview: Modified by Acute [place] Protocol [place]5. [facility] [place] coronary bare metal stents S/P angioplasty with stent 09/07/2006 History of tobacco use documented as of this encounter (statuses as of 01/26/2023) Resolved Problems Problem Noted Date Resolved Date [...] for Patients with Cardiovascular Disease Project #: [id number] PI: Peyton Conn MD [phone] GENOMICS CARDIO RESEARCH OTHER*[id number] 200606/28/2016 Overview: Renamed Per Clinical Trials Billing Project. Study Title: Genomic Markers for Patients with Cardiovascular Disease Project #: [id number] PI: Peyton Conn MD [phone] LV (left ventricular) mural thrombus 10/30/2006 12/28/2017 Tobacco use disorder 09/07/2006 06/09/2009 Acute inferior myocardial infarction 08/19/2006 12/11/2008 Overview: Modified by Acute [place] Protocol #5. [facility] [place] coronary bare metal stents EXAMINATION OF PARTICIPANT IN CLINICAL TRIAL - H ORIZONS 08/19/2006 09/04/2009 Overview: Renamed Per Clinical Trials Billing Project. [facility] AMI clinical trial 263 Single blind trial comparing heparin and IIB/IIIA with bivalirudin, and Taxus vs bare metal stent. Patient Follow-up for 5 years Press Tender Smoke Signal: Trent Verduzco [phone] [facility] Clinical Trial*[id number] 08/19/2006 09/08/2014 Overview: Renamed Per Clinical Trials Billing Project. [facility] AMI clinical trial 263 Single blind trial comparing heparin and IIB/IIIA with bivalirudin, and Taxus vs bare metal stent. Patient Follow-up for 5 years Press Tender Smoke Signal: Trent Verduzco [phone] [facility] 08/29/2002 02/23/2017 LOC PRIM [id number] 05/29/2002 07/18/19 19 Dyslipidemia, goal to be determined 05/29/2002 05/07/2009 Overview: Per Lipid Taxonomy. FAM HX-DIABETES MELLITUS 05/29/2002 017 cystocoele 09/29/2017 Prolapse of vaginal celeste 2017 Overview: ICD-10 update of inactive term LEFT BB BLOCK NEC 07/18/2018 Other specified forms of chronic ischemic heart disease 02/23/2017 documented as of this encounter (statuses as of 01/26/2023) Immunizations Name Administration Dates Next Due COVID-19 [...] Miscellaneous Notes * Telephone Encounter - OPAL Karimi - 01/26/2023 10:29 AM EDT LMOM for pt to call back to schedule * Telephone Encounter - OPAL Karimi - 01/09/2023 1:30 PM EDT Letter sent * Telephone Encounter - OPAL Karimi - 01/05/2023 11:10 AM EDT LMOM for pt to sagrario back to schedule * Telephone Encounter - OPAL Karimi - 12/30/2022 9:45 AM EDT LMOM for pt to call back to schedule * Telephone Encounter - OSCAR Enrique - 12/28/2022 9:42 AM EDT Op colon for follow up imaging showing colitis, diarrhea and pain resolved Ramila M Sebastianelli, GERIATRIC PSYCHIATRIST 12/28/2022 9:42 AM documented in this encounter Plan of Treatment Upcoming Encounters Date Type Specialty Care Team Description 02/07/2023 Office Visit Neurology Precious Dominguez PA-C [address] [place] [address] 04/19/2023 Office Visit Pharmacy [facility] [address] [facility] [place] [address] Scheduled Orders Name Type Priority Associated Diagnoses Orde r Schedule COLONOSCOPY, DIAGNOSTIC (RECTUM) Procedures Routine Colitis Abnormal finding on GI tract imaging Ordered: 12/28/2022 Health Maintenance Due Date Last Done Comments [...] 02/21/2023 02/21/2022, 03/0 07/2019 GFR 04/09/2023 10/07/2022, 07/2021, 12/09/2020, Additional history exists Depression Screening, Annual for Pts 12 and Over 06/02/2023 06/02/2022 CKD HGB USE SMARTSET 71809 10/08/202310/07, 02/21/2022, 12/09/2020, Additional history exists CKD PHOS USE SMARTSET 42848 10/08/202309/19, 02/21/2022, 07/18/2018 O2 ASSESSMENT COMPLETED IN [...] as of this encounter Visit Diagnoses Diagnosis Colitis- Primary Other and unspecified noninfectious gastroenteritis and colitis Abnormal finding on GI tract imaging Nonspecific (abnormal) findings on radiological and other examination of gastrointestinal tract documented in this encounter Advance Directives Latest Code Status on File Code Status Date Activated Date Inactivated Comments Full Code 02/20/2020 5:50 PM 02/20/2020 11:10 PM Thi s order reflects the patients wishes and were [...] the patient have Health Care Power of Cyber Reverse Engineer? No Healthcare Agents on File Name Relationship Healthcare Agent Relationshi p Communication Lacy Tong Adult Child Health Care Repr esentative (appointed verbally by patient or by statute hierarchy) Care Teams Broom Bundler Relationship Specialty Start Date End Date Roman Ennis III, MD [address] [place] [address] PCP - General Family Medicine 06/28/18 documented as of this encounter
--- OUTSIDE RECORDS SUMMARY | 2023-06-29 05:38 | External Medical Summary | Summary of Care ---
Author Name Unknown Organization [facility] Address [address] [place] [address] Phone [phone] Care Team Providers Care Front Office Secretary Name Role Phone Loli NORWOOD MD, Roman Barraza Primary Care Provider [phone] Encounter Details Date Type Department Care Team Description 01/25/2023 Business AssociateWireless Communications Engineer Practice [facility] [place] [address] [facility] [place] [address] Ciara Menendez, RN Medical home patient encounter* Allergies Active Allergy Reactions Severity Noted Date Comments Isosorbide Mononitrate 12/24/2007 Severe headaches Nsaids 05/29/2002 Tramadol Hcl Nausea/vomiting Low 01/09/2008 UGI distress documented as of this encounter (statuses as of 01/25/2023) Medications Medication Sig Dispensed Refills Start Date [...] as of this encounter (statuses as of 01/25/2023) Active Problems Problem Noted Date Chronic combined [...] ml/min) 05/11/2018 Coronary artery disease invo lving [place] coronary artery of [place] heart without angina pectoris 05/08/2018 Anxiety state [...] Overview: Modified by Acute [place] Protocol #5. [facility] right coronary bare metal stents S/P angioplasty with stent 09/07/2006 History of tobacco use documented as of this encounter (statuses as of 01/25/2023) Resolved Problems Problem Noted Date Resolved Date [...] for Patients with Cardiovascular Disease Project #: [id number] PI: Peyton Conn MD [phone] GENOMICS CARDIO RESEARCH OTHER*[id number] 200606/28/2016 Overview: Renamed Per Clinical Trials Billing Project. Study Title: Genomic Markers for Patients with Cardiovascular Disease Project #: [id number] PI: Peyton Conn MD [phone] LV (left ventricular) mural thrombus 10/30/2006 12/28/2017 Tobacco use disorder 09/07/2006 06/09/2009 Acute inferior myocardial infarction 08/19/2006 12/11/2008 Overview: Modified by Acute [place] Protocol #5. [facility] right coronary bare metal stents EXAMINATION OF PARTICIPANT IN CLINICAL TRIAL - H ORIZONS 08/19/2006 09/04/2009 Overview: Renamed Per Clinical Trials Billing Project. [facility] AMI clinical trial 263 Single blind trial comparing heparin and IIB/IIIA with bivalirudin, and Taxus vs bare metal stent. Patient Follow-up for 5 years Diesel Engine Pipe Fitter: Trent Verduzco [phone] [facility] Clinical Trial*[id number] 08/19/2006 09/08/2014 Overview: Renamed Per Clinical Trials Billing Project. [facility] AMI clinical trial 263 Single blind trial comparing heparin and IIB/IIIA with bivalirudin, and Taxus vs bare metal stent. Patient Follow-up for 5 years Diesel Engine Pipe Fitter: Trent Verduzco [phone] Menopause 08/29/2002 02/23/2017 LOC PRIM [id number] 05/29/2002 07/18/19 19 Dyslipidemia, goal to be determined 05/29/2002 05/07/2009 Overview: Per Lipid Taxonomy. FAM HX-DIABETES MELLITUS 05/29/2002 017 cystocoele 09/29/2017 Prolapse of vaginal celeste 2017 Overview: ICD-10 update of inactive term LEFT BB BLOCK NEC 07/18/2018 Other specified forms of chronic ischemic heart disease 02/23/2017 documented as of this encounter (statuses as of 01/25/2023) Immunizations Name Administration Dates Next Due COVID-19 [...] Progress Notes * Ciara Menendez RN - 01/25/2023 10:34 AM EDT Call for TRAVIS comprehensive/CM follow up/G@H follow up Pt was no-show to hospital d/c appointment. Follow-up Post Discharge Attempted Phone Call Second Attempt Call Outcome Unable to Leave Message Plan Sent to [facility] for cold call documented in this encounter Plan of Treatment Upcoming Encounters Date Type Specialty Care Team Description 01/25/2023 Scheduled Telephone [facility] Irrigation Teacher, [facility] [address] [place] [address] 02/07/2023 Office Visit Neurology Precious Dominguez PA-C [address] [place] [address] 04/19/[address] [facility] [address] [place] [address] Health Maintenance Due Date Last Done Comments DISCUSS TOBACCO CESSATION (REFER TO SMARTSET #6265) 1945 Alpha-1 Antitrypsin 1965 DIABETES-EYE EXAM 1965 Diabetic Foot Exam 1965 HbA1c 07/18/2007 01/15/2007, 07/22, 05/29/2002 DXA Scan 09/04/2016 09/04/2013, 09/04/2013 *ADVANCE DIRECTIVE NOT ON FILE 06/09/2019 COVID-19 Vaccine (3 - Moderna series) 01/07/2021 11/12/2020, 10/01/2020 Influenza Vaccine (FLU shot) (#1) 2023 02/21/2022, 02/03/2020, 01/31/2019, Additional history exists Albumin/Creatinine Ratio 02/21/2023 02/21/2022, 0307/2019 GFR 04/09/2023 10/07/2022, 100 07/2021, 12/09/2020, Additional history exists Depression Screening, Annual for Pts 12 and Over 06/02/2023 06/02/2022 CKD HGB USE SMARTSET 68204 10/08/202310/07, 02/21/2022, 12/09/2020, Additional history exists CKD PHOS USE SMARTSET 64646 10/08/202309/19, 02/21/2022, 07/18/2018 O2 ASSESSMENT COMPLETED IN [...] the patient have Health Care Power of Leak Hunter? No Healthcare Agents on File Name Relationship Healthcare Agent Relationshi p Communication Lacy Tong Adult Child Health Care Repr esentative (appointed verbally by patient or by statute hierarchy) Care Teams Front Office Secretary Relationship Specialty Start Date End Date Roman Ennis III, MD [address] [place] [address] PCP - General Family Medicine 06/28/18 documented as of this encounter
--- OUTSIDE RECORDS SUMMARY | 2023-06-29 05:38 | External Medical Summary | Summary of Care ---
Author Name Unknown Organization [facility] Address [address] [place] [address] Phone [phone] Care Team Providers Care Naturopath Name Role Phone Loli NORWOOD MD, Roman Barraza Primary Care Provider [phone] Reason for Visit * Reason Onset Date Comments [facility]: Engagement 01/25/2023 Encounter Details Date Type Department Care Team Description 01/25/2023 Telephone [facility], [address] [phone] Services, Scheduling [address] [place] [address] [facility]: Engagement Allergies Active Allergy Reactions Severity Noted Date [...] EVERY DAY 30 Tablet 11 10/21/2022 Active oxyCODONE HCl 5 MG Oral [...] ml/min) 05/11/2018 Coronary artery disease invo lving [place] coronary artery of [place] heart without angina pectoris 05/08/2018 Anxiety state [...] Overview: Modified by Acute [place] Protocol #5. [facility] right coronary bare [...] for Patients with Cardiovascular Disease Project #: [id number] PI: Peyton Conn MD [phone] GENOMICS CARDIO RESEARCH OTHER*[id number] 200606/28/2016 Overview: Renamed Per Clinical Trials Billing Project. Study Title: Genomic Markers for Patients with Cardiovascular Disease Project #: [id number] PI: Peyton Conn MD [phone] LV (left ventricular) mural thrombus 10/30/2006 12/28/2017 Tobacco use disorder 09/07/2006 06/09/2009 Acute inferior myocardial infarction 08/19/2006 12/11/2008 Overview: Modified by Acute [place] Protocol #5. [facility] right coronary bare metal stents EXAMINATION OF PARTICIPANT IN CLINICAL TRIAL - H ORIZONS 08/19/2006 09/04/2009 Overview: Renamed Per Clinical Trials Billing Project. [facility] AMI clinical trial 263 Single blind trial comparing heparin and IIB/IIIA with bivalirudin, and Taxus vs bare metal stent. Patient Follow-up for 5 years Supervisor Pleating: Trent Verduzco [phone] [facility] Clinical Trial*[id number] 08/19/2006 09/08/2014 Overview: Renamed Per Clinical Trials Billing Project. [facility] AMI clinical trial 263 Single blind trial comparing heparin and IIB/IIIA with bivalirudin, and Taxus vs bare metal stent. Patient Follow-up for 5 years Supervisor Pleating: Trent Verduzco [phone] Menopause 08/29/2002 02/23/2017 LOC PRIM [id number] 05/29/2002 07/18/19 19 Dyslipidemia, goal to be [...] * Telephone Encounter - OPAL Ruiz - 01/25/2023 11:26 AM EDT [facility] Enrollment Form Screening: Referral Source: PCP/Specialty Primary Reason for Referral (Select most relevant): No data was found Engagement: Engagement Attempt 1: Unable to contact Engagement Attempt 2: Unable to contact Engagement Attempt 3: Unable to contact. Final attempt (send letter & refer via [id number]) Home Information: No data was found Advance Care Planning (ACP): No data was found Has Living Will or Advance Directive: No data was found Anticipated Sub-Program: Focused Care Management (3-9 months) Confirmation of Sub-Program Type (by care steam drier operator): No data was found Handoff Information: Current care team notified via: [employer] communication Current telemonitoring equipment: No data was found Called and no answer for third attempt, same appts if we hear back but scheduling the [facility] letter togo out documented in this encounter Plan of Treatment Upcoming Encounters Date Type Specialty Care Team Description 01/25/2023 Scheduled Telephone [facility]um Pool Install[facility], [address] [place] [address] 02/07/2023 Office Visit Neurology Precious Dominguez PA-C [address] [facility] [place] [address] 04/19/2023 [facility] [place] [address] Health Maintenance Due Date Last Done Comments DISCUSS TOBACCO CESSATION (REFER TO SMARTSET #7009) 1945 Alpha-1 Antitrypsin 1965 DIABETES-EYE EXAM 1965 Diabetic Foot Exam 1965 HbA1c 07/18/2007 01/15/2007, 07/22, 05/29/2002 DXA Scan 09/04/2016 09/04/2013, 09/04/2013 *ADVANCE DIRECTIVE NOT ON FILE 06/09/2019 COVID-19 Vaccine (3 - Moderna series) 01/07/2021 11/12/2020, 10/01/2020 Influenza Vaccine (FLU shot) (#1) 2023 02/21/2022, 02/03/2020, 01/31/2019, Additional history exists Albumin/Creatinine Ratio 02/21/2023 02/21/2022, 030 07/2019 GFR 04/09/2023 10/07/2022, 100 07/2021, 12/09/2020, Additional history exists Depression Screening, Annual for Pts 12 and Over 06/02/2023 06/02/2022 CKD HGB USE SMARTSET 24584 10/08/202310/07, 02/21/2022, 12/09/2020, Additional history exists CKD PHOS USE SMARTSET 40604 10/08/202309/19, 02/21/2022, 07/18/2018 O2 ASSESSMENT COMPLETED IN [...] the patient have Health Care Power of Tower Switch Operator? No Healthcare Agents on File Name Relationship Healthcare Agent Relationshi p Communication Lacy Tong Adult Child Health Care Repr esentative (appointed verbally by patient or by statute hierarchy) Care Teams Naturopath Relationship Specialty Start Date End Date Roman Ennis III, MD [address] [place] [address] PCP - General Family Medicine 06/28/18 documented as of this encounter
--- OUTSIDE RECORDS SUMMARY | 2023-06-29 05:38 | External Medical Summary | Summary of Care ---
Author Name Unknown Organization [facility] Address [address] [place] [address] Phone [phone] Care Team Providers Care Distribution Lead Name Role Phone Loli NORWOOD MD, Roman Barraza Primary Care Provider [phone] Encounter Details Date Type Department Care Team Description 01/30/2023 Trimmer SawyerCustomer Resolution Specialist Practice [facility]ector [address] [facility] [place] [address] Ciara Menendez, RN Medical home patient encounter* Allergies Active Allergy Reactions Severity Noted Date Comments Isosorbide Mononitrate 12/24/2007 Severe headaches Nsaids 05/29/2002 Tramadol Hcl Nausea/vomiting Low 01/09/2008 UGI distress documented as of this encounter (statuses as of 01/30/2023) Medications Medication Sig Dispensed Refills Start Date [...] as of this encounter (statuses as of 01/30/2023) Active Problems Problem Noted Date Chronic combined [...] ml/min) 05/11/2018 Coronary artery disease invo lving [place] coronary artery of [place] heart without angina pectoris 05/08/2018 Anxiety state [...] Overview: Modified by Acute [place] Protocol #5. [facility] [place] right coronary bare metal stents S/P angioplasty with stent 09/07/2006 History of tobacco use documented as of this encounter (statuses as of 01/30/2023) Resolved Problems Problem Noted Date Resolved Date [...] for Patients with Cardiovascular Disease Project #: [id number] PI: Peyton Conn MD [phone] GENOMICS CARDIO RESEARCH OTHER*[id number] 200606/28/2016 Overview: Renamed Per Clinical Trials Billing Project. Study Title: Genomic Markers for Patients with Cardiovascular Disease Project #: [id number] PI: Peyton Conn MD [phone] LV (left ventricular) mural thrombus 10/30/2006 12/28/2017 Tobacco use disorder 09/07/2006 06/09/2009 Acute inferior myocardial infarction 08/19/2006 12/11/2008 Overview: Modified by Acute [place] Protocol #5. [facility] [place] right coronary bare metal stents EXAMINATION OF PARTICIPANT IN CLINICAL TRIAL - H ORIZONS 08/19/2006 09/04/2009 Overview: Renamed Per Clinical Trials Billing Project. [facility] AMI clinical trial 263 Single blind trial comparing heparin and IIB/IIIA with bivalirudin, and Taxus vs bare metal stent. Patient Follow-up for 5 years Ore Washer: Trent Verduzco [phone] [facility] Clinical Trial*[id number] 08/19/2006 09/08/2014 Overview: Renamed Per Clinical Trials Billing Project. [facility] AMI clinical trial 263 Single blind trial comparing heparin and IIB/IIIA with bivalirudin, and Taxus vs bare metal stent. Patient Follow-up for 5 years Ore Washer: Trent Verduzco [phone] Menopause 08/29/2002 02/23/2017 LOC PRIM [id number] 05/29/2002 07/18/19 19 Dyslipidemia, goal to be determined 05/29/2002 05/07/2009 Overview: Per Lipid Taxonomy. FAM HX-DIABETES MELLITUS 05/29/2002 017 cystocoele 09/29/2017 Prolapse of vaginal celeste 2017 Overview: ICD-10 update of inactive term LEFT BB BLOCK NEC 07/18/2018 Other specified forms of chronic ischemic heart disease 02/23/2017 documented as of this encounter (statuses as of 01/30/2023) Immunizations Name Administration Dates Next Due COVID-19 [...] Progress Notes * Ciara Menendez RN - 01/30/2023 2:30 PM EDT Follow-up Post Discharge Attempted Phone Call Third Attempt Call Outcome Unable to Leave Message Plan Sent to [facility] for cold call documented in this encounter Plan of Treatment Upcoming Encounters Date Type Specialty Care Team Description 02/07/2023 Office Visit Neurology Precious Dominguez PA-C [address] [place] [address] 04/19/2023 Office Visit Pharmacy [facility] [address] [facility] [place] [address] Health Maintenance Due Date Last Done Comments DISCUSS TOBACCO CESSATION (REFER TO SMARTSET #0067) 1945 Alpha-1 Antitrypsin 1965 DIABETES-EYE EXAM 1965 Diabetic Foot Exam 1965 HbA1c 07/18/2007 01/15/2007, 07/22, 05/29/2002 DXA Scan 09/04/2016 09/04/2013, 09/04/2013 *ADVANCE DIRECTIVE NOT ON FILE 06/09/2019 COVID-19 Vaccine (3 - Moderna series) 01/07/2021 11/12/2020, 10/01/2020 Influenza Vaccine (FLU shot) (#1) 2023 02/21/2022, 02/03/2020, 01/31/2019, Additional history exists Albumin/Creatinine Ratio 02/21/2023 02/21/2022, 0307/2019 GFR 04/09/2023 10/07/2022, 10/0 07/2021, 12/09/2020, Additional history exists Depression Screening 06/02/2023 06/02/2022 CKD HGB USE SMARTSET 84823 10/08/202310/07, 02/21/2022, 12/09/2020, Additional history exists CKD PHOS USE SMARTSET 39171 10/08/202309/19, 02/21/2022, 07/18/2018 O2 ASSESSMENT COMPLETED IN [...] the patient have Health Care Power of Polyethylene Combiner? No Healthcare Agents on File Name Relationship Healthcare Agent [facility] Communication Lacy Tong Adult Child Health Care Repr esentative (appointed verbally by patient or by statute hierarchy) Care Teams Distribution Lead Relationship Specialty Start Date End Date Loli III, Roman Barraza MD [address] [place] [address] PCP - General Family Medicine 06/28/18 documented as of this encounter
--- OUTSIDE RECORDS SUMMARY | 2023-06-29 05:38 | External Medical Summary | Summary of Care ---
Author Name Unknown Organization [facility] Address [address] [place] [address] Phone [phone] Care Team Providers Care Tanning Wheel Filler Name Role Phone Loli NORWOOD MD, Roman Barraza Primary Care Provider [phone] Reason for Visit * Reason Onset Date Comments Follow Up 01/21/2023 Encounter Details Date Type Department Care Team Description 01/21/2023 Scheduled Telephone [facility] [place], [facility] [address] [facility] [place] [address] [facility] [address] [facility] [place] [address] Allergies Active Allergy Reactions Severity Noted Date Comments Isosorbide Mononitrate 12/24/2007 Severe headaches Nsaids 05/29/2002 Tramadol Hcl Nausea/vomiting Low 01/09/2008 UGI distress documented as of this encounter (statuses as of 01/21/2023) Medications Medication Sig Dispensed Refills Start Date [...] as of this encounter (statuses as of 01/21/2023) Active Problems Problem Noted Date Chronic combined [...] ml/min) 05/11/2018 Coronary artery disease invo lving [place] coronary artery of [place] heart without angina pectoris 05/08/2018 Anxiety state [...] Overview: Modified by Acute [place] Protocol #5. [facility] [place] coronary bare metal stents S/P angioplasty with stent 09/07/2006 History of tobacco use documented as of this encounter (statuses as of 01/21/2023) Resolved Problems Problem Noted Date Resolved Date [...] for Patients with Cardiovascular Disease Project #: [id number] PI: Peyton Conn MD [phone] GENOMICS CARDIO RESEARCH OTHER*[id number] 200606/28/2016 Overview: Renamed Per Clinical Trials Billing Project. Study Title: Genomic Markers for Patients with Cardiovascular Disease Project #: [id number] PI: Peyton Conn MD [phone] LV (left ventricular) mural thrombus 10/30/2006 12/28/2017 Tobacco use disorder 09/07/2006 06/09/2009 Acute inferior myocardial infarction 08/19/2006 12/11/2008 Overview: Modified by Acute [place] Protocol #5. [facility] right coronary bare metal stents EXAMINATION OF PARTICIPANT IN CLINICAL TRIAL - H ORIZONS 08/19/2006 09/04/2009 Overview: Renamed Per Clinical Trials Billing Project. [facility] AMI clinical trial 263 Single blind trial comparing heparin and IIB/IIIA with bivalirudin, and Taxus vs bare metal stent. Patient Follow-up for 5 years Forest Officer: Trent Verduzco [phone] [facility] Clinical Trial*[id number] 08/19/2006 09/08/2014 Overview: Renamed Per Clinical Trials Billing Project. [facility] AMI clinical trial 263 Single blind trial comparing heparin and IIB/IIIA with bivalirudin, and Taxus vs bare metal stent. Patient Follow-up for 5 years Forest Officer: Trent Verduzco [phone] [facility] 08/29/2002 02/23/2017 LOC PRIM [id number] 05/29/2002 07/18/19 19 Dyslipidemia, goal to be determined 05/29/2002 05/07/2009 Overview: Per Lipid Taxonomy. FAM HX-DIABETES MELLITUS 05/29/2002 017 cystocoele 09/29/2017 Prolapse of vaginal celeste 2017 Overview: ICD-10 update of inactive term LEFT BB BLOCK NEC 07/18/2018 Other specified forms of chronic ischemic heart disease 02/23/2017 documented as of this encounter (statuses as of 01/21/2023) Immunizations Name Administration Dates Next Due COVID-19 [...] Telephone Encounter - Areli Washburn RN - 01/21/2023 3:28 PM EDT Phone call to patient- recent hospital stay- discharged 01/19. No answer- went to [employer]. Messageleft providing [phone]# for return call. documented in this encounter Plan of Treatment Upcoming Encounters Date Type Specialty Care Team Description 01/24/2023 Scheduled Telephone [facility] Acid Concentrator, Jose Ying [address] [place] [address] 01/24/2023 Office Visit Family Medicine Loli Roman NORWOOD MD [address] [place] [address] 02/07/2023 Office Visit Neurology Precious Dominguez PA-C [address] [place] [address] 04/19/2023 Office Visit Pharmacy [facility] [address] [place] [address] Health Maintenance Due Date Last Done Comments DISCUSS TOBACCO CESSATION (REFER TO SMARTSET #8054) 1945 Alpha-1 Antitrypsin 1965 DIABETES-EYE EXAM 1965 DIABETES-FOOT EXAM 1965 HbA1c 07/18/2007 01/15/2007, 07/22, 05/29/2002 DXA [...] Over 06/02/2023 06/02/2022 CKD HGB USE SMARTSET 61455 10/08/202310/07, 02/21/2022, 12/09/2020, Additional history exists CKD PHOS USE SMARTSET 90089 10/08/202309/19, 02/21/2022, 07/18/2018 O2 ASSESSMENT COMPLETED IN [...] patient have Health Care Power of Manager Strategic Development? No Healthcare Agents on File Name Relationship Healthcare Agent Relationshi p Communication Lacy Tong Adult Child Health Care Repr esentative (appointed verbally by patient or by statute hierarchy) Care Teams Tanning Wheel Filler Relationship Specialty Start Date End Date Roman Ennis III, MD [address] [place] [place] [address] PCP - General Family Medicine 06/28/18 documented as of this encounter
--- OUTSIDE RECORDS SUMMARY | 2023-06-29 05:38 | External Medical Summary | Summary of Care ---
Author Name Unknown Organization [facility] Address [address] [place] [address] Phone [phone] Care Team Providers Care Radiology Technologist Name Role Phone Loli NORWOOD MD, Roman Barraza Primary Care Provider [phone] Reason for Visit * Reason Onset Date Comments Appointment 01/24/2023 Encounter Details Date Type Department Care Team Description 01/24/2023 Scheduled Telephone [facility], [facility] [address] [place] [address] Coordinator, [facility] [address] [facility] [place] [address] Allergies Active Allergy Reactions Severity Noted Date Comments Isosorbide Mononitrate 12/24/2007 Severe headaches Nsaids 05/29/2002 Tramadol Hcl Nausea/vomiting Low 01/09/2008 UGI distress documented as of this encounter (statuses as of 01/24/2023) Medications Medication Sig Dispensed Refills Start Date [...] as of this encounter (statuses as of 01/24/2023) Active Problems Problem Noted Date Chronic combined [...] ml/min) 05/11/2018 Coronary artery disease invo lving salt [...] Overview: Modified by Acute [place] Protocol #5. [facility] [place] coronary bare metal stents S/P angioplasty with stent 09/07/2006 History of tobacco use documented as of this encounter (statuses as of 01/24/2023) Resolved Problems Problem Noted Date Resolved Date [...] for Patients with Cardiovascular Disease Project #: [id number] PI: Peyton Conn MD [phone] GENOMICS CARDIO RESEARCH OTHER*[id number] 200606/28/2016 Overview: Renamed Per Clinical Trials Billing Project. Study Title: Genomic Markers for Patients with Cardiovascular Disease Project #: [id number] PI: Peyton Conn MD [phone] LV (left ventricular) mural thrombus 10/30/2006 12/28/2017 Tobacco use disorder 09/07/2006 06/09/2009 Acute inferior myocardial infarction 08/19/2006 12/11/2008 Overview: Modified by Acute [place] Protocol #5. [facility] [place] coronary bare metal stents EXAMINATION OF PARTICIPANT IN CLINICAL TRIAL - H ORIZONS 08/19/2006 09/04/2009 Overview: Renamed Per Clinical Trials Billing Project. [facility] AMI clinical trial 263 Single blind trial comparing heparin and IIB/IIIA with bivalirudin, and Taxus vs bare metal stent. Patient Follow-up for 5 years Abrasive Worker: Trent Verduzco [phone] [facility] Clinical Trial*[id number] 08/19/2006 09/08/2014 Overview: Renamed Per Clinical Trials Billing Project. [facility] AMI clinical trial 263 Single blind trial comparing heparin and IIB/IIIA with bivalirudin, and Taxus vs bare metal stent. Patient Follow-up for 5 years Abrasive Worker: Trent Verduzco [phone] [facility] 08/29/2002 02/23/2017 LOC PRIM [id number] 05/29/2002 07/18/19 19 Dyslipidemia, goal to be determined 05/29/2002 05/07/2009 Overview: Per Lipid Taxonomy. FAM HX-DIABETES MELLITUS 05/29/2002 017 cystocoele 09/29/2017 Prolapse of vaginal celeste 2017 Overview: ICD-10 update of inactive term LEFT BB BLOCK NEC 07/18/2018 Other specified forms of chronic ischemic heart disease 02/23/2017 documented as of this encounter (statuses as of 01/24/2023) Immunizations Name Administration Dates Next Due COVID-19 [...] Miscellaneous Notes * Telephone Encounter - OPAL Peraza - 01/24/2023 1:10 PM EDT [facility] Engagement Attempt Engagement: Engagement Attempt 1: Unable to contact Engagement Attempt 2: Unable to contact Engagement Attempt 3: No data was found Home Information: No data was found Advance Care Planning (ACP): No data was found Has Living Will or Advance Directive: No data was found Anticipated Sub-Program: Focused Care Management (3-9 months) Confirmation of Sub-Program Type (by care grocery team member): No data was found Handoff Information: Current care team notified via: [employer] communication Current telemonitoring equipment: No data was found [facility] Can offer 01/27/2023 @ 12:30 Carmen L. 02/08/2023 @ 9:30 am Luis F documented in this encounter Plan of Treatment Upcoming Encounters Date Type Specialty Care Team Description 01/25/2023 Scheduled Telephone [facility] Cost Estimating Clerk, [facility] [address] [place] [address] 02/07/2023 Office Visit Neurology Precious Dominguez PA-C [address] [facility] [place] [address] 04/19/2023 Office Visit Pharmacy [facility] [address] [place] [address] Health Maintenance Due Date Last Done Comments DISCUSS TOBACCO CESSATION (REFER TO SMARTSET #0935) 1945 Alpha-1 Antitrypsin 1965 DIABETES-EYE EXAM 1965 DIABETES-FOOT EXAM 1965 HbA1c 07/18/2007 01/15/2007, 07/22, 05/29/2002 DXA Scan 09/04/2016 09/04/2013, 09/04/2013 *ADVANCE DIRECTIVE NOT ON FILE 06/09/2019 COVID-19 Vaccine (3 - Moderna series) 01/07/2021 11/12/2020, 10/01/2020 Influenza Vaccine (FLU shot) (#1) 2023 02/21/2022, 02/03/2020, 01/31/2019, Additional history exists Albumin/Creatinine Ratio 02/21/2023 02/21/2022, 030 07/2019 GFR 04/09/2023 10/07/2022, 1007/2021, 12/09/2020, Additional history exists Depression Screening, Annual for Pts 12 and Over 06/02/2023 06/02/2022 CKD HGB USE SMARTSET 79070 10/08/202310/07, 02/21/2022, 12/09/2020, Additional history exists CKD PHOS USE SMARTSET 52505 10/08/202309/19, 02/21/2022, 07/18/2018 O2 ASSESSMENT COMPLETED IN [...] the patient have Health Care Power of Ad Terminal Makeup Operator? No Healthcare Agents on File Name Relationship Healthcare Agent Relationshi p Communication Lacy Tong Adult Child Health Care Repr esentative (appointed verbally by patient or by statute hierarchy) Care Teams Radiology Technologist Relationship Specialty Start Date End Date Roman Ennis III, MD [address] [place] [address] PCP - General Family Medicine 06/28/18 documented as of this encounter
--- OUTSIDE RECORDS SUMMARY | 2023-06-29 05:39 | External Medical Summary | Summary of Care ---
Author Name Unknown Organization [facility] Address [address] [place] [address] Phone [phone] Care Team Providers Care Piano Sounding Board Matcher Name Role Phone Loli NORWOOD MD, Roman Barraza Primary Care Provider [phone] Reason for Visit * Reason Onset Date Comments [facility]: Screening 01/20/2023 Encounter Details Date Type Department Care Team Description 01/20/2023 Telephone [facility], [facility] [address] [place] [address] [facility], Nurse [facility] [address] [place] [address] [facility]: Screening Allergies Active Allergy Reactions Severity Noted Date Comments Isosorbide Mononitrate 12/24/2007 Severe headaches Nsaids 05/29/2002 Tramadol Hcl Nausea/vomiting Low 01/09/2008 UGI distress documented as of this encounter (statuses as of 01/20/2023) Medications Medication Sig Dispensed Refills Start Date [...] as of this encounter (statuses as of 01/20/2023) Active Problems Problem Noted Date Chronic combined [...] ml/min) 05/11/2018 Coronary artery disease invo lving [place] coronary artery of [place] heart without angina pectoris 05/08/2018 Anxiety state [...] Overview: Modified by Acute [place] Protocol #5. [facility] [place] right coronary bare metal stents S/P angioplasty with stent 09/07/2006 History of tobacco use documented as of this encounter (statuses as of 01/20/2023) Resolved Problems Problem Noted Date Resolved Date [...] for Patients with Cardiovascular Disease Project #: [id number] PI: Peyton Conn MD [phone] GENOMICS CARDIO RESEARCH OTHER*[id number] 200606/28/2016 Overview: Renamed Per Clinical Trials Billing Project. Study Title: Genomic Markers for Patients with Cardiovascular Disease Project #: [id number] PI: Peyton Conn MD [phone] LV (left ventricular) mural thrombus 10/30/2006 12/28/2017 Tobacco use disorder 09/07/2006 06/09/2009 Acute inferior myocardial infarction 08/19/2006 12/11/2008 Overview: Modified by Acute [place] Protocol #5. [facility] [place] right coronary bare metal stents EXAMINATION OF PARTICIPANT IN CLINICAL TRIAL - H ORIZONS 08/19/2006 09/04/2009 Overview: Renamed Per Clinical Trials Billing Project. [facility] AMI clinical trial 263 Single blind trial comparing heparin and IIB/IIIA with bivalirudin, and Taxus vs bare metal stent. Patient Follow-up for 5 years In Process Inspector: Trent Verduzco [phone] [facility] Clinical Trial*[id number] 08/19/2006 09/08/2014 Overview: Renamed Per Clinical Trials Billing Project. [facility] AMI clinical trial 263 Single blind trial comparing heparin and IIB/IIIA with bivalirudin, and Taxus vs bare metal stent. Patient Follow-up for 5 years In Process Inspector: Trent Verduzco [phone] [facility] 08/29/2002 02/23/2017 LOC PRIM [id number] 05/29/2002 07/18/19 19 Dyslipidemia, goal to be determined 05/29/2002 05/07/2009 Overview: Per Lipid Taxonomy. FAM HX-DIABETES MELLITUS 05/29/2002 017 cystocoele 09/29/2017 Prolapse of vaginal celeste 2017 Overview: ICD-10 update of inactive term LEFT BB BLOCK NEC 07/18/2018 Other specified forms of chronic ischemic heart disease 02/23/2017 documented as of this encounter (statuses as of 01/20/2023) Immunizations Name Administration Dates Next Due COVID-19 [...] encounter Miscellaneous Notes * Telephone Encounter - Jacki Chavez LPN - 01/20/2023 12:55 PM EDT Radha Tong was referred as a potential candidate for enrollment for [facility]. A review of this chart was completed and: Radha meets criteria for [facility]. Jump to Episodes of Care to create Episode and document smartforms Referring care team was notified via : [employer] communication documented in this encounter Plan of Treatment Upcoming Encounters Date Type Specialty Care Team Description 01/21/2023 Scheduled Telephone [facility], Nurse [address] [place] [address] 01/24/2023 Scheduled Telephone [facility] Self Service [place], [place] [address] [place] [address] 01/24/2023 Office Visit Family Medicine LoliRoman basilio III, MD [address] [place] [address] 02/07/2023 Office Visit Neurology Precious Dominguez PA-C [address] [place] [address] 04/19/2023 [facility] Visit [facility] [address] [facility] [place] [address] Health Maintenance Due Date Last Done Comments DISCUSS TOBACCO CESSATION (REFER TO SMARTSET #9487) 1945 Alpha-1 Antitrypsin 1965 DIABETES-EYE EXAM 1965 DIABETES-FOOT EXAM 1965 HbA1c 07/18/2007 01/15/2007, 07/22, 05/29/2002 DXA Scan 09/04/2016 09/04/2013, 09/04/2013 *ADVANCE DIRECTIVE NOT ON FILE 06/09/2019 COVID-19 Vaccine (3 - Moderna series) 01/07/2021 11/12/2020, 10/01/2020 Influenza Vaccine (FLU shot) (#1) 2023 02/21/2022, 02/03/2020, 01/31/2019, Additional history exists Albumin/Creatinine Ratio 02/21/2023 02/21/2022, 03/0 07/2019 GFR 04/09/2023 10/07/2022, 10/0 07/2021, 12/09/2020, Additional history exists Depression Screening, Annual for Pts 12 and Over 06/02/2023 06/02/2022 CKD HGB USE SMARTSET 40221 10/08/202310/07, 02/21/2022, 12/09/2020, Additional history exists CKD PHOS USE SMARTSET 25378 10/08/202309/19, 02/21/2022, 07/18/2018 O2 ASSESSMENT COMPLETED IN [...] the patient have Health Care Power of Office Mover? No Healthcare Agents on File Name Relationship Healthcare Agent Relationshi p Communication Lacy Tong Adult Child Health Care Repr esentative (appointed verbally by patient or by statute hierarchy) Care Teams Piano Sounding Board Matcher Relationship Specialty Start Date End Date Roman Ennis III, MD [address] [place] [address] PCP - General Family Medicine 06/28/18 documented as of this encounter
--- OUTSIDE RECORDS SUMMARY | 2023-06-29 05:39 | External Medical Summary | Summary of Care ---
Author Name Unknown Organization [facility] Address [address] [place] [address] Phone [phone] Care Team Providers Care Service Girl Name Role Phone Loli NORWOOD MD, Roman Barraza Primary Care Provider [phone] Reason for Visit * Reason Comments No Show Encounter Details Date Type Department Care Team Description 01/12/2023 Home Visit Care Coordination [address], [place] [id number] Cortney Benoit Community Health Check Grader [address] [place] [address] [place] [address] Allergies Active Allergy Reactions Severity Noted Date Comments Isosorbide Mononitrate 12/24/2007 Severe headaches Nsaids 05/29/2002 Tramadol Hcl Nausea/vomiting Low 01/09/2008 UGI distress documented as of this encounter (statuses as of 01/12/2023) Medications Medication Sig Dispensed Refills Start Date [...] as of this encounter (statuses as of 01/12/2023) Active Problems Problem Noted Date Chronic combined [...] ml/min) 05/11/2018 Coronary artery disease invo lving [place] coronary artery of [place] heart without angina pectoris 05/08/2018 Anxiety state [...] Overview: Modified by Acute [place] Protocol #5. [facility] right coronary bare metal stents S/P angioplasty with stent 09/07/2006 History of tobacco use documented as of this encounter (statuses as of 01/12/2023) Resolved Problems Problem Noted Date Resolved Date [...] for Patients with Cardiovascular Disease Project #: [id number] PI: Peyton Conn MD [phone] GENOMICS CARDIO RESEARCH OTHER*[id number] 200606/28/2016 Overview: Renamed Per Clinical Trials Billing Project. Study Title: Genomic Markers for Patients with Cardiovascular Disease Project #: [id number] PI: Peyton Conn MD [phone] LV (left ventricular) mural thrombus 10/30/2006 12/28/2017 Tobacco use disorder 09/07/2006 06/09/2009 Acute inferior myocardial infarction 08/19/2006 12/11/2008 Overview: Modified by Acute [place] Protocol #5. [facility] right coronary bare metal stents EXAMINATION OF PARTICIPANT IN CLINICAL TRIAL - H ORIZONS 08/19/2006 09/04/2009 Overview: Renamed Per Clinical Trials Billing Project. [facility] AMI clinical trial 263 Single blind trial comparing heparin and IIB/IIIA with bivalirudin, and Taxus vs bare metal stent. Patient Follow-up for 5 years Farm Laborer: Trent Verduzco [phone] [facility] Clinical Trial*[id number] 08/19/2006 09/08/2014 Overview: Renamed Per Clinical Trials Billing Project. [facility] AMI clinical trial 263 Single blind trial comparing heparin and IIB/IIIA with bivalirudin, and Taxus vs bare metal stent. Patient Follow-up for 5 years Farm Laborer: Trent Verduzco [phone] Menopause 08/29/2002 02/23/2017 LOC PRIM [id number] 05/29/2002 07/18/19 Dyslipidemia, goal to be determined 05/29/2002 05/07/2009 Overview: Per Lipid Taxonomy. FAM HX-DIABETES MELLITUS 05/29/2002 017 cystocoele 09/29/2017 Prolapse of vaginal celeste 2017 Overview: ICD-10 update of inactive term LEFT BB BLOCK NEC 07/18/2018 Other specified forms of chronic ischemic heart disease 02/23/2017 documented as of this encounter (statuses as of 01/12/2023) Immunizations Name Administration Dates Next Due COVID-19 [...] this encounter Progress Notes * Karena Adames - 01/12/2023 3:38 PM EDT MARILYN scheduled for HV. As per appt notes, called to inform patient MARILYN was en route. Phone went straight to . LM stating such. Per chart review, CM trying to reach pt to discuss med dosage and need for repeat labs, however unable to contact. Connected with CM and made aware of situation. casino gaming worker left with CM name and number. Requested for patient to call to discuss med changes and need for labs. documented in this encounter Plan of Treatment Upcoming Encounters Date Type Specialty Care Team Description 01/20/2023 Office Visit Otolaryngology Jose R Kaye DO [address] [place] [address] 01/25/2023 Scheduled Telephone [facility] Services Sales Representative, Jose Ying [address] [place] [address] 02/07/2023 Office Visit Neurology Precious Dominguez PA-C [address] [place] [address] 04/19/2023 Office Visit Pharmacy [facility] Lori [address] [place] [address] Health Maintenance Due Date Last Done Comments DISCUSS TOBACCO CESSATION (REFER TO SMARTSET #5883) 1945 Alpha-1 Antitrypsin 1965 DIABETES-EYE EXAM 1965 [...] Over 06/02/2023 06/02/2022 CKD HGB USE SMARTSET 35377 10/08/202310/07, 02/21/2022, 12/09/2020, Additional history exists CKD PHOS USE SMARTSET 67694 10/08/202309/19, 02/21/2022, 07/18/2018 O2 ASSESSMENT COMPLETED IN [...] the patient have Health Care Power of Coal Trammer? No Healthcare Agents on File Name Relationship Healthcare Agent Relationshi p Communication Lacy Tong Adult Child Health Care Repr esentative (appointed verbally by patient or by statute hierarchy) Care Teams Service Girl Relationship Specialty Start Date End Date Roman Ennis III, MD [address] [place] [address] PCP - General Family Medicine 06/28/18 documented as of this encounter
--- OUTSIDE RECORDS SUMMARY | 2023-06-29 05:39 | External Medical Summary | Summary of Care ---
Author Name Unknown Organization [facility] Address [address] [place] [address] Phone [phone] Care Team Providers Care Oxygen System Tester Name Role Phone Loli NORWOOD MD, Roman Barraza Primary Care Provider [phone] Reason for Visit * Reason Onset Date Comments FYI 01/11/2023 STOP ELIQUIS Encounter Details Date Type Department Care Team Description 01/11/2023 Telephone Family Practice [facility] [address] [facility] [place] [address] Pamela Lopez PA-C [address] [facility] [place] [address] FYI (STOP ELIQUIS) Allergies Active Allergy Reactions Severity Noted Date Comments Isosorbide Mononitrate 12/24/2007 Severe headaches Nsaids 05/29/2002 Tramadol Hcl Nausea/vomiting Low 01/09/2008 UGI distress documented as of this encounter (statuses as of 01/11/2023) Medications Medication Sig Dispensed Refills Start Date [...] as of this encounter (statuses as of 01/11/2023) Active Problems Problem Noted Date Chronic combined [...] ml/min) 05/11/2018 Coronary artery disease invo lving [place] coronary artery of [place] heart without angina pectoris 05/08/2018 Anxiety state [...] Overview: Modified by Acute [place] Protocol #5. [facility] coronary bare metal stents S/P angioplasty with stent 09/07/2006 History of tobacco use documented as of this encounter (statuses as of 01/11/2023) Resolved Problems Problem Noted Date Resolved Date [...] for Patients with Cardiovascular Disease Project #: [id number] PI: Peyton Conn MD [phone] GENOMICS CARDIO RESEARCH OTHER*[id number] 200606/28/2016 Overview: Renamed Per Clinical Trials Billing Project. Study Title: Genomic Markers for Patients with Cardiovascular Disease Project #: [id number] PI: Peyton Conn MD [phone] LV (left ventricular) mural thrombus 10/30/2006 12/28/2017 Tobacco use disorder 09/07/2006 06/09/2009 Acute inferior myocardial infarction 08/19/2006 12/11/2008 Overview: Modified by Acute [place] Protocol #5. [facility] right coronary bare metal stents EXAMINATION OF PARTICIPANT IN CLINICAL TRIAL - H ORIZONS 08/19/2006 09/04/2009 Overview: Renamed Per Clinical Trials Billing Project. [facility] AMI clinical trial 263 Single blind trial comparing heparin and IIB/IIIA with bivalirudin, and Taxus vs bare metal stent. Patient Follow-up for 5 years Cyber Reverse Engineer: Trent Verduzco [phone] [facility] Clinical Trial*[id number] 08/19/2006 09/08/2014 Overview: Renamed Per Clinical Trials Billing Project. [facility] AMI clinical trial 263 Single blind trial comparing heparin and IIB/IIIA with bivalirudin, and Taxus vs bare metal stent. Patient Follow-up for 5 years Cyber Reverse Engineer: Trent Verduzco [phone] [facility] 08/29/2002 02/23/2017 LOC PRIM [id number] 05/29/2002 07/18/19 19 Dyslipidemia, goal to be determined 05/29/2002 05/07/2009 Overview: Per Lipid Taxonomy. FAM HX-DIABETES MELLITUS 05/29/2002 017 cystocoele 09/29/2017 Prolapse of vaginal celeste 2017 Overview: ICD-10 update of inactive term LEFT BB BLOCK NEC 07/18/2018 Other specified forms of chronic ischemic heart disease 02/23/2017 documented as of this encounter (statuses as of 01/11/2023) Immunizations Name Administration Dates Next Due COVID-19 [...] encounter Miscellaneous Notes * Telephone Encounter - Pamela Lopez PA-C - 01/11/2023 12:40 PM EDT Please call patient, verify name and . Please have her get her labs done MARCELINA to check her hemoglobin and STOP her Eliquis. I was able ot discuss her positive blood in stool at her visit last week with Dr. Cosby today, and he thinks this is the best course of action for the time being, and I agree. documented in this encounter Plan of Treatment Upcoming Encounters Date Type Specialty Care Team Description 01/12/2023 Home Visit Family Medicine Cortney Benoit, [address] [place] [address] 01/20/2023 Office Visit Otolaryngology Jose R Kaye DO [address] [place] [address] 01/25/2023 Scheduled Telephone [facility] [place] Sales ManagerJose [address] [place] [address] 02/07/2023 Office Visit Neurology Precious Dominguez PA-C [address] [facility] [place] [address] 04/19/2023 Office Visit Pharmacy [facility] Lori [address] [facility] [place] [address] Health Maintenance Due Date Last Done Comments DISCUSS TOBACCO CESSATION (REFER TO SMARTSET #5707) 1945 Alpha-1 Antitrypsin 1965 DIABETES-EYE EXAM 1965 [...] Over 06/02/2023 06/02/2022 CKD HGB USE SMARTSET 11051 10/08/202310/07, 02/21/2022, 12/09/2020, Additional history exists CKD PHOS USE SMARTSET 07938 10/08/202309/19, 02/21/2022, 07/18/2018 O2 ASSESSMENT COMPLETED IN [...] the patient have Health Care Power of Well Reactivator Operator? No Healthcare Agents on File Name Relationship Healthcare Agent Relationshi p Communication Lacy Tong Adult Child Health Care Repr esentative (appointed verbally by patient or by statute hierarchy) Care Teams Oxygen System Tester Relationship Specialty Start Date End Date Roman Ennis III, MD [address] [place] [address], [place] [address] PCP - General Family Medicine 06/28/18 documented as of this encounter
--- OUTSIDE RECORDS SUMMARY | 2023-06-29 05:39 | External Medical Summary | Summary of Care ---
Author Name Unknown Organization [facility] Address [address] [place] [address] Phone [phone] Care Team Providers Care Chemical Checker Name Role Phone Loli NORWOOD MD, Roman Barraza Primary Care Provider [phone] Reason for Visit * Reason Onset Date Comments FYI 01/11/2023 STOP ELIQUIS Encounter Details Date Type Department Care Team Description 01/11/2023 Telephone [facility] [address] [facility] [place] [address] Pamela Lopez PA-C [address] [facility] [place] [address] FYI (STOP ELIQUIS) Allergies Active Allergy Reactions [...] ml/min) 05/11/2018 Coronary artery disease invo lving [place] coronary artery of [place] heart without angina pectoris 05/08/2018 Anxiety state [...] Overview: Modified by Acute [place] Protocol [place]5. [facility] [place] bare metal stents S/P angioplasty [...] for Patients with Cardiovascular Disease Project #: [id number] PI: Peyton Conn MD [phone] GENOMICS CARDIO RESEARCH OTHER*[id number] 200606/28/2016 Overview: Renamed Per Clinical Trials Billing Project. Study Title: Genomic Markers for Patients with Cardiovascular Disease Project #: [id number] PI: Peyton Conn MD [phone] LV (left ventricular) mural thrombus 10/30/2006 12/28/2017 Tobacco use disorder 09/07/2006 06/09/2009 Acute inferior myocardial infarction 08/19/2006 12/11/2008 Overview: Modified by Acute [place] Protocol #5. [facility] [place] coronary bare metal stents EXAMINATION OF PARTICIPANT IN CLINICAL TRIAL - H ORIZONS 08/19/2006 09/04/2009 Overview: Renamed Per Clinical Trials Billing Project. [facility] AMI clinical trial 263 Single blind trial comparing heparin and IIB/IIIA with bivalirudin, and Taxus vs bare metal stent. Patient Follow-up for 5 years Electrical Helper: Trent Verduzco [phone] [facility] Clinical Trial*[id number] 08/19/2006 09/08/2014 Overview: Renamed Per Clinical Trials Billing Project. [facility] AMI clinical trial 263 Single blind trial comparing heparin and IIB/IIIA with bivalirudin, and Taxus vs bare metal stent. Patient Follow-up for 5 years Electrical Helper: Trent Verduzco [phone] [facility] 08/29/2002 02/23/2017 LOC PRIM [id number] 05/29/2002 07/18/19 19 Dyslipidemia, goal to be [...] Telephone Encounter - Tia Olmstead RN - 01/12/2023 9:10 AM EDT See School Bus Technician message of 01/11/23. * Telephone Encounter - Tia Olmstead RN - 01/11/2023 1:41 PM EDT Provider to address: Stop Eliquis Reason for Call: FYI (STOP ELIQUIS) Contact: Telephone Call Contact Type: Stop Eliquis Outcome: Phone number for pt and son are the same and voicemail box is full. Phone number for daughter cannot be completed at this time. No other contacts listed. Total Time including non face to face (minutes): 5 * Telephone Encounter - Pamela Lopez PA-C [...] 01/12/2023 Home Visit Family Medicine Cortney Benoit, Community Health Director Medicaid [address] [place] [address] [place] [address] 01/20/2023 Office Visit Otolaryngology Jose R Kaye DO [address] [place] [address] 01/25/2023 Scheduled Telephone [facility] Wire Coiler Machine Operator, [facility] [address] [place] [address] 02/07/2023 Office Visit Neurology Precious Dominguez PA-C [address] [facility] [address] 04/19/2023 Office Visit Pharmacy [facility] Lori [address] [place] [address] Health Maintenance Due Date Last Done Comments DISCUSS TOBACCO CESSATION (REFER TO SMARTSET #9231) 1945 Alpha-1 Antitrypsin 1965 DIABETES-EYE EXAM 1965 [...] Over 06/02/2023 06/02/2022 CKD HGB USE SMARTSET 78298 10/08/202310/07, 02/21/2022, 12/09/2020, Additional history exists CKD PHOS USE SMARTSET 00222 10/08/202309/19, 02/21/2022, 07/18/2018 O2 ASSESSMENT COMPLETED IN [...] the patient have Health Care Power of Validation Scientist? No Healthcare Agents on File Name Relationship Healthcare Agent Relationshi p Communication Lacy Tong Adult Child Health Care Repr esentative (appointed verbally by patient or by statute hierarchy) Care Teams Chemical Checker Relationship Specialty Start Date End Date Roman Ennis III, MD [address] [place] [address], [place] [address] PCP - General Family Medicine 06/28/18 documented as of this encounter
--- OUTSIDE RECORDS SUMMARY | 2023-06-29 05:39 | External Medical Summary | Summary of Care ---
Author Name Unknown Organization [facility] Address [address] [place] [address] Phone [phone] Care Team Providers Care Pot Washer Name Role Phone Loli NORWOOD MD, Roman Barraza Primary Care Provider [phone] Reason for Visit * Reason Onset Date Comments FYI 01/11/2023 STOP ELIQUIS Encounter Details Date Type Department Care Team Description 01/11/2023 Telephone Family Practice [facility] [address] [facility] [place] [address] Pamela Lopez PA-C [address] [facility] [place] [address] FYI (STOP ELIQUIS) Allergies Active Allergy Reactions [...] ml/min) 05/11/2018 Coronary artery disease invo lving [place] coronary artery of [place] heart without angina pectoris [...] Overview: Modified by Acute [place]. [facility] [place] bare metal stents S/P angioplasty [...] for Patients with Cardiovascular Disease Project #: [id number] PI: Peyton Conn MD [phone] GENOMICS CARDIO RESEARCH OTHER*[id number] 200606/28/2016 Overview: Renamed Per Clinical Trials Billing Project. Study Title: Genomic Markers for Patients with Cardiovascular Disease Project #: [id number] PI: Peyton Conn MD [phone] LV (left ventricular) mural thrombus 10/30/2006 12/28/2017 Tobacco use disorder 09/07/2006 06/09/2009 Acute inferior myocardial infarction 08/19/2006 12/11/2008 Overview: Modified by Acute [place] Protocol [place]5. [facility] [place] coronary bare metal stents EXAMINATION OF PARTICIPANT IN CLINICAL TRIAL - H ORIZONS 08/19/2006 09/04/2009 Overview: Renamed Per Clinical Trials Billing Project. [facility] AMI clinical trial 263 Single blind trial comparing heparin and IIB/IIIA with bivalirudin, and Taxus vs bare metal stent. Patient Follow-up for 5 years Color Coater: Trent Verduzco [phone] [facility] Clinical Trial*[id number] 08/19/2006 09/08/2014 Overview: Renamed Per Clinical Trials Billing Project. [facility] AMI clinical trial 263 Single blind trial comparing heparin and IIB/IIIA with bivalirudin, and Taxus vs bare metal stent. Patient Follow-up for 5 years Color Coater: Trent Verduzco [phone] [facility] 08/29/2002 02/23/2017 LOC PRIM [id number] 05/29/2002 07/18/19 19 Dyslipidemia, goal to be [...] Miscellaneous Notes * Telephone Encounter - Pamela Loepz PA-C - 01/11/2023 12:40 PM EDT Please [...] 01/12/2023 Home Visit Family Medicine Cortney Benoit, [address] [place] [address] 01/20/2023 Office Visit Otolaryngology Jose R aKye DO [address] [place] [address] 01/25/2023 Scheduled Telephone [facility] [address] [place] [address] 02/07/2023 Office Visit Neurology Precious Dominguez PA-C 200 [facility] [place] [address] 04/19/2023 Office Visit Pharmacy [facility] Lori 132 [facility] [place] [address] Health Maintenance Due Date Last Done Comments DISCUSS TOBACCO CESSATION (REFER TO SMARTSET #3011) 1945 Alpha-1 Antitrypsin 1965 DIABETES-EYE EXAM 1965 [...] Over 06/02/2023 06/02/2022 CKD HGB USE SMARTSET 07635 10/08/202310/07, 02/21/2022, 12/09/2020, Additional history exists CKD PHOS USE SMARTSET 04435 10/08/202309/19, 02/21/2022, 07/18/2018 O2 ASSESSMENT COMPLETED IN [...] the patient have Health Care Power of Field Crop Farming Supervisor? No Healthcare Agents on File Name Relationship Healthcare Agent Relationshi p Communication Lacy Tong Adult Child Health Care Repr esentative (appointed verbally by patient or by statute hierarchy) Care Teams Pot Washer Relationship Specialty Start Date End Date Roman Ennis III, MD [address] [place] [address], [place] [address] PCP - General Family Medicine 06/28/18 documented as of this encounter
--- OUTSIDE RECORDS SUMMARY | 2023-06-29 05:39 | External Medical Summary | Summary of Care ---
Author Name Unknown Organization [facility] Address [address] [place] [address] Phone [phone] Care Team Providers Care Foot Worker Name Role Phone Loli NORWOOD MD, Roman Barraza Primary Care Provider [phone] Encounter Details Date Type Department Care Team Description 01/20/2023 Acid RegeneratorLaborer Construction Or Leak Gang Practice [facility] [place] [address] [facility] [place] [address] Ciara Menendez, RN Medical home patient encounter* [...] ml/min) 05/11/2018 Coronary artery disease invo lving [place] coronary artery of [place] heart without angina pectoris 05/08/2018 Anxiety state [...] Overview: Modified by Acute [place] Protocol [place]5. [facility] [place] coronary bare metal stents S/P angioplasty [...] for Patients with Cardiovascular Disease Project #: [id number] PI: Peyton Conn MD [phone] GENOMICS CARDIO RESEARCH OTHER*[id number] 200606/28/2016 Overview: Renamed Per Clinical Trials Billing Project. Study Title: Genomic Markers for Patients with Cardiovascular Disease Project #: [id number] PI: Peyton Conn MD [phone] LV (left ventricular) mural thrombus 10/30/2006 12/28/2017 Tobacco use disorder 09/07/2006 06/09/2009 Acute inferior myocardial infarction 08/19/2006 12/11/2008 Overview: Modified by Acute [place] Protocol [place]5. [facility] [place] coronary bare metal stents EXAMINATION OF PARTICIPANT IN CLINICAL TRIAL - H ORIZONS 08/19/2006 09/04/2009 Overview: Renamed Per Clinical Trials Billing Project. [facility] AMI clinical trial 263 Single blind trial comparing heparin and IIB/IIIA with bivalirudin, and Taxus vs bare metal stent. Patient Follow-up for 5 years Boating Safety Officer: Trent Verduzco [phone] [facility] Clinical Trial*[id number] 08/19/2006 09/08/2014 Overview: Renamed Per Clinical Trials Billing Project. [facility] AMI clinical trial 263 Single blind trial comparing heparin and IIB/IIIA with bivalirudin, and Taxus vs bare metal stent. Patient Follow-up for 5 years Boating Safety Officer: Trent Verduzco [phone] Menopause 08/29/2002 02/23/2017 LOC PRIM [id number] 05/29/2002 07/18/19 19 Dyslipidemia, goal to be [...] Progress Notes * Ciara Menendez RN - 01/20/2023 11:25 AM EDT Call for TRAVIS comprehensive: Follow-up Post Discharge Attempted Phone Call First Attempt Call Outcome Unable to Leave Message Plan To attempt another outreach documented in this encounter Plan of Treatment Upcoming Encounters Date Type Specialty Care Team Description 01/24/2023 Office Visit Family Medicine [place] NORWOOD, Roman Barraza MD 200 [facility] [place] [address] 01/25/2023 Scheduled Telephone [facility] Product Development Director, [facility] [address] [place] [address] 02/07/2023 Office Visit Neurology Precious Dominguez PA-C 200 [facility] [place] [address] 04/19/2023 Office Visit Pharmacy [facility] Lori [address] [place] [address] Health Maintenance Due Date Last Done Comments [...] Over 06/02/2023 06/02/2022 CKD HGB USE SMARTSET 19843 10/08/202310/07, 02/21/2022, 12/09/2020, Additional history exists CKD PHOS USE SMARTSET 35059 10/08/202309/19, 02/21/2022, 07/18/2018 O2 ASSESSMENT COMPLETED IN [...] the patient have Health Care Power of Mounted Police Officer? No Healthcare Agents on File Name Relationship Healthcare Agent Relationshi p Communication Lacy Tong Adult Child Health Care Repr esentative (appointed verbally by patient or by statute hierarchy) Care Teams Foot Worker Relationship Specialty Start Date End Date Roman Ennis III, MD 200 [place] [address] PCP - General Family Medicine 06/28/18 documented as of this encounter
--- OUTSIDE RECORDS SUMMARY | 2023-06-29 05:39 | External Medical Summary | Summary of Care ---
Author Name Unknown Organization [facility] Address [address] [place] [address] Phone [phone] Care Team Providers Care Personal Lines Insurance Advisor Name Role Phone Loli NORWOOD MD, Roman Barraza Primary Care Provider [phone] Reason for Visit * Reason Onset Date Comments FYI 01/11/2023 STOP ELIQUIS Encounter Details Date Type Department Care Team Description 01/11/[address] [facility] 200 [facility] [place] [address] Pamela Lopez PA-C 200 [facility] [place] [address] FYI (STOP ELIQUIS) Allergies Active Allergy Reactions [...] ml/min) 05/11/2018 Coronary artery disease invo lving [place] [...] Overview: Modified by Acute [place] Protocol #5. [facility] [place] [place] right coronary bare metal stents S/P [...] for Patients with Cardiovascular Disease Project #: [id number] PI: Peyton Conn MD [phone] GENOMICS CARDIO RESEARCH OTHER*[id number] 200606/28/2016 Overview: Renamed Per Clinical Trials Billing Project. Study Title: Genomic Markers for Patients with Cardiovascular Disease Project #: [id number] PI: Peyton Conn MD [phone] LV (left ventricular) mural thrombus 10/30/2006 12/28/2017 Tobacco use disorder 09/07/2006 06/09/2009 Acute inferior myocardial infarction 08/19/2006 12/11/2008 Overview: Modified by Acute [place] Protocol #5. [facility] [place] [place] right coronary bare metal stents EXAMINATION OF PARTICIPANT IN CLINICAL TRIAL - H ORIZONS 08/19/2006 09/04/2009 Overview: Renamed Per Clinical Trials Billing Project. [facility] AMI clinical trial 263 Single blind trial comparing heparin and IIB/IIIA with bivalirudin, and Taxus vs bare metal stent. Patient Follow-up for 5 years Seed Technician: Trent Verduzco [phone] [facility] Clinical Trial*[id number] 08/19/2006 09/08/2014 Overview: Renamed Per Clinical Trials Billing Project. [facility] AMI clinical trial 263 Single blind trial comparing heparin and IIB/IIIA with bivalirudin, and Taxus vs bare metal stent. Patient Follow-up for 5 years Seed Technician: Trent Verduzco [phone] [facility] 08/29/2002 02/23/2017 LOC PRIM [id number] 05/29/2002 07/18/19 19 Dyslipidemia, goal to be [...] 01/11/2023 1:41 PM EDT Provider to address: Emmett Andersen Reason for Call: DAMARIS (STOP ELIQUIS) Contact: Telephone Call Contact Type: [...] Visit Family Medicine Cortney Benoit, Community Health Physiognomist [address] [place] [address] [place] [address] 01/20/2023 Office Visit Otolaryngology Jose R Kaye DO [address] [place] [address] 01/25/2023 Scheduled Telephone [facility] Funeral Prearrangement Counselor, [facility] [address] [place] [address] 02/07/2023 Office Visit Neurology Precious Dominguez PA-C [address] [place] [address] 04/19/2023 Office Visit Pharmacy [facility] Lori [address] [place] [address] Health Maintenance Due Date Last Done Comments [...] Over 06/02/2023 06/02/2022 CKD HGB USE SMARTSET 34167 10/08/202310/07, 02/21/2022, 12/09/2020, Additional history exists CKD PHOS USE SMARTSET 64118 10/08/202309/19, 02/21/2022, 07/18/2018 O2 ASSESSMENT COMPLETED IN [...] the patient have Health Care Power of Director Of Program Management? No Healthcare Agents on File Name Relationship Healthcare Agent Relationshi p Communication Lacymark anthony Tong Adult Child Health Care Repr esentative (appointed verbally by patient or by statute hierarchy) Care Teams Personal Lines Insurance Advisor Relationship Specialty Start Date End Date Roman Ennis III, MD [address] [place] [address] PCP - General Family Medicine 06/28/18 documented as of this encounter
--- OUTSIDE RECORDS SUMMARY | 2023-06-29 05:39 | External Medical Summary | Summary of Care ---
Author Name Unknown Organization [facility] Address [address] [place] [address] Phone [phone] Care Team Providers Care Philosophy And Religion Instructor Name Role Phone Loli NORWOOD MD, Roman Barraza Primary Care Provider [phone] Encounter Details Date Type Department Care Team Description 01/11/2023 Cash ProcessorEducational Advisor Practice [facility] [place] [address] [place] [address] iCara Menendez, RN Medical home patient encounter*; Hospital discharge follow-up Allergies Active Allergy Reactions Severity Noted Date [...] ml/min) 05/11/2018 Coronary artery disease invo lving [place] coronary artery of [place] heart without angina pectoris 05/08/2018 Anxiety state [...] Overview: Modified by Acute [place] Protocol #5. [facility] [place] for Patients with Cardiovascular Disease Project #: [id number] PI: Peyton Conn MD [phone] GENOMICS CARDIO RESEARCH OTHER*[id number] 200606/28/2016 Overview: Renamed Per Clinical Trials Billing Project. Study Title: Genomic Markers for Patients with Cardiovascular Disease Project #: [id number] PI: Peyton Conn MD [phone] LV (left ventricular) mural thrombus 10/30/2006 12/28/2017 Tobacco use disorder 09/07/2006 06/09/2009 Acute inferior myocardial infarction 08/19/2006 12/11/2008 Overview: Modified by Acute [place] Protocol #5. [facility] [place] coronary bare metal stents EXAMINATION OF PARTICIPANT IN CLINICAL TRIAL - H ORIZONS 08/19/2006 09/04/2009 Overview: Renamed Per Clinical Trials Billing Project. [facility] AMI clinical trial 263 Single blind trial comparing heparin and IIB/IIIA with bivalirudin, and Taxus vs bare metal stent. Patient Follow-up for 5 years Emergency Medicine Nurse Practitioner: Trent Verduzco [phone] [facility] Clinical Trial*[id number] 08/19/2006 09/08/2014 Overview: Renamed Per Clinical Trials Billing Project. [facility] AMI clinical trial 263 Single blind trial comparing heparin and IIB/IIIA with bivalirudin, and Taxus vs bare metal stent. Patient Follow-up for 5 years Emergency Medicine Nurse Practitioner: Trent Verduzco [phone] Menopause 08/29/2002 02/23/2017 LOC PRIM [id number] 05/29/2002 07/18/19 Dyslipidemia, goal to be determined [...] of this encounter Progress Notes * Ciara Menendez, LISA - 01/11/2023 1:30 PM EDT CM discussed pt's case with PCP-Pt needs to stop Eliquis r/t blood in stool. requested for [facility] to attempt phone outreach. No answer. CM call-phone goes immediately to [facility] but unable to leave a message d/t voicemail box is full. Follow-up Routine Attempted Phone Call Fourth attempt Call Outcome Unable to Leave Message Plan Sent to [facility] for cold call Pt is scheduled for [facility] visit tomorrow. sent Teams message to NIKKIE Benoit requesting she followup with this CM prior to visit tomorrow. documented in this encounter Plan of Treatment Upcoming Encounters Date Type Specialty Care Team Description 01/12/2023 Home Visit Family Medicine Cortney Benoit, [address] [place] [address] 01/20/2023 Office Visit Otolaryngology Jose R Kaye DO [address] [place] [address] 01/25/2023 Scheduled Telephone [facility] Piece Goods Clerk, Jose Ying [address] [place] [address] 02/07/2023 Office Visit Neurology Precious Dominguez PA-C [address] [place] [address] 04/19/2023 Office Visit Pharmacy [facility] Lori [address] [place] [address] Health Maintenance Due Date Last Done Comments DISCUSS TOBACCO CESSATION (REFER TO SMARTSET #3292) 1945 Alpha-1 Antitrypsin 1965 DIABETES-EYE EXAM 1965 [...] Over 06/02/2023 06/02/2022 CKD HGB USE SMARTSET 69629 10/08/202310/07, 02/21/2022, 12/09/2020, Additional history exists CKD PHOS USE SMARTSET 25206 10/08/202309/19, 02/21/2022, 07/18/2018 O2 ASSESSMENT COMPLETED IN [...] home patient encounter- Primary Other specified examination Hospital discharge follow-up Other follow-up examination documented in this encounter Advance Directives [...] patient have Health Care Power of Manager Personal? No Healthcare Agents on File Name Relationship Healthcare Agent Relationshi p Communication Lacy Tong Adult Child Health Care Repr esentative (appointed verbally by patient or by statute hierarchy) Care Teams Philosophy And Religion Instructor Relationship Specialty Start Date End Date Roman Ennis III, MD [address] [place] [address], [place] [address] PCP - General Family Medicine 06/28/18 documented as of this encounter
--- OUTSIDE RECORDS SUMMARY | 2023-06-29 05:39 | External Medical Summary | Summary of Care ---
Author Name Unknown Organization [facility] Address [address] [place] [address] Phone [phone] Care Team Providers Care Seedling Sorter Name Role Phone Loli NORWOOD MD, Roman Barraza Primary Care Provider [phone] Reason for Visit * Reason Onset Date Comments [facility]: Screening 01/20/2023 [facility]: Engagement 01/20/2023 Encounter Details Date Type Department Care Team Description 01/20/2023 Telephone [facility], [facility] [address] [facility] [place] [address] [facility], Nurse [facility] [address] [facility] [place] [address] [facility]: Screening; [facility]... Allergies Active Allergy Reactions Severity Noted Date [...] ml/min) 05/11/2018 Coronary artery disease invo lving [place] coronary artery of [place] heart without angina pectoris 05/08/2018 Anxiety state [...] Overview: Modified by Acute [place] Protocol #5. [facility] [...] for Patients with Cardiovascular Disease Project #: [id number] PI: Peyton Conn MD [phone] GENOMICS CARDIO RESEARCH OTHER*[id number] 200606/28/2016 Overview: Renamed Per Clinical Trials Billing Project. Study Title: Genomic Markers for Patients with Cardiovascular Disease Project #: [id number] PI: Peyton Conn MD [phone] LV (left ventricular) mural thrombus 10/30/2006 12/28/2017 Tobacco use disorder 09/07/2006 06/09/2009 Acute inferior myocardial infarction 08/19/2006 12/11/2008 Overview: Modified by Acute [place] Protocol #5. [facility] right coronary bare metal stents EXAMINATION OF PARTICIPANT IN CLINICAL TRIAL - H ORIZONS 08/19/2006 09/04/2009 Overview: Renamed Per Clinical Trials Billing Project. [facility] AMI clinical trial 263 Single blind trial comparing heparin and IIB/IIIA with bivalirudin, and Taxus vs bare metal stent. Patient Follow-up for 5 years Feather Drying Machine Operator: Trent Verduzco [phone] [facility] Clinical Trial*[id number] 08/19/2006 09/08/2014 Overview: Renamed Per Clinical Trials Billing Project. [facility] AMI clinical trial 263 Single blind trial comparing heparin and IIB/IIIA with bivalirudin, and Taxus vs bare metal stent. Patient Follow-up for 5 years Feather Drying Machine Operator: Trent Verduzco [phone] Menopause 08/29/2002 02/23/2017 LOC PRIM [id number] 05/29/2002 07/18/19 19 Dyslipidemia, goal to be [...] encounter Miscellaneous Notes * Telephone Encounter - Karena Swanson Health Cafe Or Restaurant Manager - 01/20/2023 1:11 PM EDT [facility] Enrollment Form Screening: Referral Source: PCP/Specialty Primary Reason for Referral (Select most relevant): No data was found Engagement: Engagement Attempt 1: Unable to contact Engagement Attempt 2: No data was found Home Information: No data was found Advance Care Planning (ACP): No data was found Has Living Will or Advance Directive: No data was found Anticipated Sub-Program: Focused Care Management (3-9 months) Confirmation of Sub-Program Type (by care trampoline team coach): No data was found Handoff Information: Current care team notified via: Epic communication Current telemonitoring equipment: No data was found [facility] Can offer 01/27/2023 @ 12:30 Carmen Vang. 02/08/2023 @ 9:30 am Neisha/OPAL Hughes * Telephone Encounter - Jacki Chavez LPN - 01/20/2023 12:55 PM EDT Radha Ciera Tong was referred as a potential candidate for enrollment for [facility]. A review of this chart was completed and: Radha meets criteria for [facility]. Jump to Episodes of Care to create Episode and document smartforms Referring care team was notified via : Postify communication documented in this encounter Plan of Treatment Upcoming Encounters Date Type Specialty Care Team Description 01/21/2023 Scheduled Telephone [facility], Nurse [place] [address] [address] [place] [address] 01/24/2023 Scheduled Telephone [facility] Land Commissioner, [facility] [address] [place] [address] 01/24/2023 Office Visit Family Medicine ShelbyRoman basilio III, MD 200 [facility] [place] [address] 02/07/2023 Office Visit Neurology Precious Dominguez PA-C 200 [facility] [place] [address] 04/19/2023 Office Visit Pharmacy [facility] Lori [address] [place] [address] Health Maintenance Due Date Last Done Comments [...] Over 06/02/2023 06/02/2022 CKD HGB USE SMARTSET 29696 10/08/202310/07, 02/21/2022, 12/09/2020, Additional history exists CKD PHOS USE SMARTSET 84173 10/08/202309/19, 02/21/2022, 07/18/2018 O2 ASSESSMENT COMPLETED IN [...] the patient have Health Care Power of Chief Informatics Officer? No Healthcare Agents on File Name Relationship Healthcare Agent Relationshi p Communication Lacy Tong Adult Child Health Care Repr esentative (appointed verbally by patient or by statute hierarchy) Care Teams Seedling Sorter Relationship Specialty Start Date End Date Roman Ennis III, MD [address] [place] [address] PCP - General Family Medicine 06/28/18 documented as of this encounter
--- OUTSIDE RECORDS SUMMARY | 2023-06-29 05:39 | External Medical Summary | Summary of Care ---
Author Name Unknown Organization [facility] Address [address] [place] [address] Phone [phone] Care Team Providers Care Drying Oven Tender Name Role Phone Loli NORWOOD MD, Roman Barraza Primary Care Provider [phone] Reason for Visit * Reason Comments No Show Encounter Details Date Type Department Care Team Description 01/12/2023 Home Visit Care Coordination [address], [place] [id number] [facility] Integrated Campaign Manager [address] [place] [address] [place] [address] Allergies Active Allergy Reactions Severity Noted Date Comments Isosorbide Mononitrate 12/24/2007 Severe headaches Nsaids 05/29/2002 Tramadol Hcl Nausea/vomiting Low 01/09/2008 UGI distress documented as of this encounter (statuses as of 01/13/2023) Medications Medication Sig Dispensed Refills Start Date [...] as of this encounter (statuses as of 01/13/2023) Active Problems Problem Noted Date Chronic combined [...] ml/min) 05/11/2018 Coronary artery disease invo lving [place] coronary artery of [place] heart without angina pectoris 05/08/2018 Anxiety state [...] Overview: Modified by Acute [place] Protocol [place]5. [facility] [place] coronary bare metal stents S/P angioplasty with stent 09/07/2006 History of tobacco use documented as of this encounter (statuses as of 01/13/2023) Resolved Problems Problem Noted Date Resolved Date [...] for Patients with Cardiovascular Disease Project #: [id number] PI: Peyton Conn MD [phone] GENOMICS CARDIO RESEARCH OTHER*[id number] 200606/28/2016 Overview: Renamed Per Clinical Trials Billing Project. Study Title: Genomic Markers for Patients with Cardiovascular Disease Project #: [id number] PI: Peyton Conn MD [phone] LV (left ventricular) mural thrombus 10/30/2006 12/28/2017 Tobacco use disorder 09/07/2006 06/09/2009 Acute inferior myocardial infarction 08/19/2006 12/11/2008 Overview: Modified by Acute [place] Protocol #5. [facility] [place] coronary bare metal stents EXAMINATION OF PARTICIPANT IN CLINICAL TRIAL - H ORIZONS 08/19/2006 09/04/2009 Overview: Renamed Per Clinical Trials Billing Project. [facility] AMI clinical trial 263 Single blind trial comparing heparin and IIB/IIIA with bivalirudin, and Taxus vs bare metal stent. Patient Follow-up for 5 years Crisis Clinician: Trent Verduzco [phone] [facility] Clinical Trial*[id number] 08/19/2006 09/08/2014 Overview: Renamed Per Clinical Trials Billing Project. [facility] AMI clinical trial 263 Single blind trial comparing heparin and IIB/IIIA with bivalirudin, and Taxus vs bare metal stent. Patient Follow-up for 5 years Crisis Clinician: Trent Verduzco [phone] Menopause 08/29/2002 02/23/2017 LOC PRIM [id number] 05/29/2002 07/18/19 Dyslipidemia, goal to be determined 05/29/2002 05/07/2009 Overview: Per Lipid Taxonomy. FAM HX-DIABETES MELLITUS 05/29/2002 017 cystocoele 09/29/2017 Prolapse of vaginal celeste 2017 Overview: ICD-10 update of inactive term LEFT BB BLOCK NEC 07/18/2018 Other specified forms of chronic ischemic heart disease 02/23/2017 documented as of this encounter (statuses as of 01/13/2023) Immunizations Name Administration Dates Next Due COVID-19 [...] as of this encounter Progress Notes * OSCAR Wilson - 01/13/2023 9:25 AM EDT Pt has been admitted at [facility] since 01/11/2023. OSCAR Reese * Karena Adames - 01/12/2023 3:38 PM EDT MARILYN scheduled for HV. As per appt notes, called to inform patient MARILYN was en route. Phone went straight to . LM stating such. Per chart review, CM trying to reach pt to discuss med dosage and need for repeat labs, however unable to contact. Connected with CM and made aware of situation. record changer tester left with CM name and number. Requested for patient to call to discuss med changes and need for labs. documented in this encounter Plan of Treatment Upcoming Encounters Date Type Specialty Care Team Description 01/20/2023 Office Visit Otolaryngology Jose R Kaye DO [address] [place] [address] 01/25/2023 Scheduled Telephone [facility] Picking Crew Supervisor, [facility] Rodolfo Ying [address] [place] [address] 02/07/2023 Office Visit Neurology Precious Dominguez PA-C [address] [facility] [address] 04/19/2023 Office Visit Pharmacy [facility] Lori [address] [place] [address] Health Maintenance Due Date Last Done Comments [...] Over 06/02/2023 06/02/2022 CKD HGB USE SMARTSET 03708 10/08/202310/07, 02/21/2022, 12/09/2020, Additional history exists CKD PHOS USE SMARTSET 91401 10/08/202309/19, 02/21/2022, 07/18/2018 O2 ASSESSMENT COMPLETED IN [...] the patient have Health Care Power of Florist Designer? No Healthcare Agents on File Name Relationship Healthcare Agent Relationshi p Communication Lacy Tong Adult Child Health Care Repr esentative (appointed verbally by patient or by statute hierarchy) Care Teams Drying Oven Tender Relationship Specialty Start Date End Date Roman Ennis III, MD [address] [place] [address] PCP - General Family Medicine 06/28/18 documented as of this encounter
--- OUTSIDE RECORDS SUMMARY | 2023-06-29 05:39 | External Medical Summary | Summary of Care ---
Author Name Unknown Organization [facility] Address [address] [place] [address] Phone [phone] Care Team Providers Care Electronic Equipment Repairer Name Role Phone Loli NORWOOD MD, John E Primary Care Provider [phone] Reason for Visit * Reason Onset Date Comments FYI 01/19/2023 Home Health brandon mated start of care date Encounter Details Date Type Department Care Team Description 01/19/2023 Telephone Family Practice [facility] [address] [place] [address] Roman Ennis III, MD 200 [place] [address] FYI (Home Health estimated start of care d... Allergies Active Allergy Reactions Severity Noted Date [...] ml/min) 05/11/2018 Coronary artery disease invo lving [place] coronary artery of [place] heart without angina pectoris 05/08/2018 Anxiety state [...] MYOCARDIAL INFARCT 12/11/2008 Overview: Modified by Acute [place] Protocol #5. [facility] [...] for Patients with Cardiovascular Disease Project #: [id number] PI: Peyton Conn MD [phone] GENOMICS CARDIO RESEARCH OTHER*[id number] 200606/28/2016 Overview: Renamed Per Clinical Trials Billing Project. Study Title: Genomic Markers for Patients with Cardiovascular Disease Project #: [id number] PI: Peyton Conn MD [phone] LV (left ventricular) mural thrombus 10/30/2006 12/28/2017 Tobacco use disorder 09/07/2006 06/09/2009 Acute inferior myocardial infarction 08/19/2006 12/11/2008 Overview: Modified by Acute [place] Protocol #5. [facility] right coronary bare metal stents EXAMINATION OF PARTICIPANT IN CLINICAL TRIAL - H ORIZONS 08/19/2006 09/04/2009 Overview: Renamed Per Clinical Trials Billing Project. [facility] AMI clinical trial 263 Single blind trial comparing heparin and IIB/IIIA with bivalirudin, and Taxus vs bare metal stent. Patient Follow-up for 5 years Architectural Engineer: Trent Verduzco [phone] [facility] Clinical Trial*[id number] 08/19/2006 09/08/2014 Overview: Renamed Per Clinical Trials Billing Project. [facility] AMI clinical trial 263 Single blind trial comparing heparin and IIB/IIIA with bivalirudin, and Taxus vs bare metal stent. Patient Follow-up for 5 years Architectural Engineer: Trent Verduzco [phone] [facility] 08/29/2002 02/23/2017 LOC PRIM [id number] 05/29/2002 07/18/19 19 Dyslipidemia, goal to be [...] Miscellaneous Notes * Telephone Encounter - OPAL Huang - 01/19/2023 2:23 PM EDT Daysi from [facility] calling in to advise that patient's home health will beginin 3-5 days from today (01/19/2023). [facility] can be reached at [phone] withquestions or concerns. Thank you, Alanna Serna (Alex) Correctional Counselor I Patient Contact Center documented in this encounter Plan of Treatment Upcoming Encounters Date Type Specialty Care Team Description 01/21/2023 Scheduled Telephone [facility], Nurse [place] [address] [place] [address] 01/24/2023 Scheduled Telephone [facility], [place] [address] [place] [address] 01/24/2023 Office Visit Family Medicine DaviessRoman basilio III, MD [address] [place] [address] 02/07/2023 Office Visit Neurology Precious Dominguez PA-C [address] [place] [address] 04/19/2023 Office Visit Pharmacy [facility] Lori [address] [place] [address] Health Maintenance Due Date Last Done Comments DISCUSS TOBACCO CESSATION (REFER TO SMARTSET #2093) 1945 Alpha-1 Antitrypsin 1965 DIABETES-EYE EXAM 1965 [...] Over 06/02/2023 06/02/2022 CKD HGB USE SMARTSET 32521 10/08/202310/07, 02/21/2022, 12/09/2020, Additional history exists CKD PHOS USE SMARTSET 93582 10/08/202309/19, 02/21/2022, 07/18/2018 O2 ASSESSMENT COMPLETED IN [...] have Health Care Power of Director Of Child Welfare Services? No Healthcare Agents on File Name Relationship Healthcare Agent Relationshi p Communication Lacy Tong Adult Child Health Care Repr esentative (appointed verbally by patient or by statute hierarchy) Care Teams Electronic Equipment Repairer Relationship Specialty Start Date End Date Roman Ennis III, MD [address] [place] [address], [place] [address] PCP - General Family Medicine 06/28/18 documented as of this encounter
--- OUTSIDE RECORDS SUMMARY | 2023-06-29 05:40 | External Medical Summary | Summary of Care ---
Author Name Unknown Organization [facility] Address [address] [place] [address] Phone [phone] Care Team Providers Care Table Assembler Name Role Phone Loli NORWOOD MD, Roman Barraza Primary Care Provider [phone] Reason for Visit * Reason Onset Date Comments [facility]: Screening 01/05/2023 [facility]: Engagement 01/05/2023 Encounter Details Date Type Department Care Team Description 01/05/2023 Telephone [facility], [facility] [address] [facility] [place] [address] [facility], Nurse [facility] [address] [facility] [place] [address] [facility]: Screening; [facility]... Allergies Active Allergy Reactions Severity Noted Date Comments Isosorbide Mononitrate 12/24/2007 Severe headaches Nsaids 05/29/2002 Tramadol Hcl Nausea/vomiting Low 01/09/2008 UGI distress documented as of this encounter (statuses as of 01/06/2023) Medications Medication Sig Dispensed Refills Start Date [...] as of this encounter (statuses as of 01/06/2023) Active Problems Problem Noted Date Chronic combined [...] ml/min) 05/11/2018 Coronary artery disease invo lving [place] coronary artery of [place] heart without angina pectoris 05/08/2018 Anxiety state [...] MYOCARDIAL INFARCT 12/11/2008 Overview: Modified by Acute [place] Protocol #5. [facility] [place] coronary bare metal stents S/P angioplasty with stent 09/07/2006 History of tobacco use documented as of this encounter (statuses as of 01/06/2023) Resolved Problems Problem Noted Date Resolved Date [...] 08/14/2014 018 HTN, goal below 130/80 10/24/2013 10/05/201 7 Ischemic cardiomyopathy 08/07/2012 07/18/19 19 Warfarin [...] for Patients with Cardiovascular Disease Project #: [id number] PI: Peyton Conn MD [phone] GENOMICS CARDIO RESEARCH OTHER*[id number] 200606/28/2016 Overview: Renamed Per Clinical Trials Billing Project. Study Title: Genomic Markers for Patients with Cardiovascular Disease Project #: [id number] PI: Peyton Conn MD [phone] LV (left ventricular) mural thrombus 10/30/2006 12/28/2017 Tobacco use disorder 09/07/2006 06/09/2009 Acute inferior myocardial infarction 08/19/2006 12/11/2008 Overview: Modified by Acute [place] Protocol #5. [facility] right coronary bare metal stents EXAMINATION OF PARTICIPANT IN CLINICAL TRIAL - H ORIZONS 08/19/2006 09/04/2009 Overview: Renamed Per Clinical Trials Billing Project. [facility] AMI clinical trial 263 Single blind trial comparing heparin and IIB/IIIA with bivalirudin, and Taxus vs bare metal stent. Patient Follow-up for 5 years Car Repairer: Trent Verduzco [phone] [facility] Clinical Trial*[id number] 08/19/2006 09/08/2014 Overview: Renamed Per Clinical Trials Billing Project. [facility] AMI clinical trial 263 Single blind trial comparing heparin and IIB/IIIA with bivalirudin, and Taxus vs bare metal stent. Patient Follow-up for 5 years Car Repairer: Trent Verduzco [phone] Menopause 08/29/2002 02/23/2017 LOC PRIM [id number] 05/29/2002 07/18/19 19 Dyslipidemia, goal to be determined 05/29/2002 05/07/2009 Overview: Per Lipid Taxonomy. FAM HX-DIABETES MELLITUS 05/29/2002 017 cystocoele 09/29/2017 Prolapse of vaginal celeste 2017 Overview: ICD-10 update of inactive term LEFT BB BLOCK NEC 07/18/2018 Other specified forms of chronic ischemic heart disease 02/23/2017 documented as of this encounter (statuses as of 01/06/2023) Immunizations Name Administration Dates Next Due COVID-19 [...] encounter Miscellaneous Notes * Telephone Encounter - Lisa Landeros [facility] Health Feed In Worker - 01/05/2023 2:01 PM EDT [facility] Enrollment Form [...] months) Confirmation of Sub-Program Type (by care project manager/team coach): No data was found Handoff Information: Current care team notified via: No data was found Current telemonitoring equipment: No data was found [facility] Left voicemail Can offer 01/11/2023 @ 2:00 pm. Areli L 01/16/2023 @ 9:30 am yC / OPAL Gilbert Electronically signed by Lisa Landeros [facility] Health Feed In Worker at 01/05/2023 2:03 PM EDT * Telephone Encounter - Shannan Mooney LPN - 01/05/2023 8:59 AM EDT Radha Tong was referred as a potential candidate for enrollment for [facility]. A review of this chart was completed and: Radha meets criteria for [facility]. . Sent to enrollment team to reach out to patient for engagement/enrollment Jump to Episodes of Care to create Episode and document smartforms Referring care team was notified via : [employer] Data Management communication documented in this encounter Plan of Treatment Upcoming Encounters Date Type Specialty Care Team Description 01/06/2023 Scheduled Telephone [facility] Cad Cam Programmer, [facility] [address] [place] [address] 01/09/2023 Scheduled Telephone [facility] Cad Cam Programmer, [facility] [address] [place] [address] 01/12/2023 Home Visit Family Medicine Cortney Benoit, [address] [place] [address] 01/20/2023 Office Visit Otolaryngology Jos eR Kaye DO [address] [place] [address] 02/07/2023 Office Visit Neurology Precious Dominguez PA-C [address] [facility] [address] 04/19/2023 Office Visit Pharmacy [facility] Lori [address] [place] [address] Health Maintenance Due Date Last Done Comments [...] Over 06/02/2023 06/02/2022 CKD HGB USE SMARTSET 29908 10/08/202310/07, 02/21/2022, 12/09/2020, Additional history exists CKD PHOS USE SMARTSET 08277 10/08/202309/19, 02/21/2022, 07/18/2018 O2 ASSESSMENT COMPLETED IN [...] the patient have Health Care Power of Tram Inspector? No Healthcare Agents on File Name Relationship Healthcare Agent Relationshi p Communication Lacy Tong Adult Child Health Care Repr esentative (appointed verbally by patient or by statute hierarchy) Care Teams Table Assembler Relationship Specialty Start Date End Date Roman Ennis III, MD [address] [facility] [address] PCP - General Family Medicine 06/28/18 documented as of this encounter
--- OUTSIDE RECORDS SUMMARY | 2023-06-29 05:40 | External Medical Summary | Summary of Care ---
Author Name Unknown Organization [facility] Address [address] [place] [address] Phone [phone] Care Team Providers Care Biology Tutor Name Role Phone Loli NORWOOD MD, Roman Barraza Primary Care Provider [phone] Reason for Visit * Reason Onset Date Comments Appointment 01/09/2023 Encounter Details Date Type Department Care Team Description 01/09/2023 Telephone [facility], [place] [address] [place], [place] [id number] Services, Scheduling [address] [place] [address] Appointment (/) Allergies Active Allergy Reactions Severity Noted Date Comments Isosorbide Mononitrate 12/24/2007 Severe headaches Nsaids 05/29/2002 Tramadol Hcl Nausea/vomiting Low 01/09/2008 UGI distress documented as of this encounter (statuses as of 01/09/2023) Medications Medication Sig Dispensed Refills Start Date [...] as of this encounter (statuses as of 01/09/2023) Active Problems Problem Noted Date Chronic combined [...] ml/min) 05/11/2018 Coronary artery disease invo lving [place] coronary artery of [place] heart without angina pectoris 05/08/2018 Anxiety [...] Overview: Modified by Acute [place] Protocol #5. [facility] right coronary bare metal stents S/P angioplasty with stent 09/07/2006 History of tobacco use documented as of this encounter (statuses as of 01/09/2023) Resolved Problems Problem Noted Date Resolved Date [...] for Patients with Cardiovascular Disease Project #: [id number] PI: Peyton Conn MD [phone] GENOMICS CARDIO RESEARCH OTHER*[id number] 200606/28/2016 Overview: Renamed Per Clinical Trials Billing Project. Study Title: Genomic Markers for Patients with Cardiovascular Disease Project #: [id number] PI: Peyton Conn MD [phone] LV (left ventricular) mural thrombus 10/30/2006 12/28/2017 Tobacco use disorder 09/07/2006 06/09/2009 Acute inferior myocardial infarction 08/19/2006 12/11/2008 Overview: Modified by Acute [place] Protocol #5. [facility] right coronary bare metal stents EXAMINATION OF PARTICIPANT IN CLINICAL TRIAL - H ORIZONS 08/19/2006 09/04/2009 Overview: Renamed Per Clinical Trials Billing Project. [facility] AMI clinical trial 263 Single blind trial comparing heparin and IIB/IIIA with bivalirudin, and Taxus vs bare metal stent. Patient Follow-up for 5 years Vehicle Safety Inspector: Trent Verduzco [phone] [facility] Clinical Trial*[id number] 08/19/2006 09/08/2014 Overview: Renamed Per Clinical Trials Billing Project. [facility] AMI clinical trial 263 Single blind trial comparing heparin and IIB/IIIA with bivalirudin, and Taxus vs bare metal stent. Patient Follow-up for 5 years Vehicle Safety Inspector: Trent Verduzco [phone] Menopause 08/29/2002 02/23/2017 LOC PRIM [id number] 05/29/2002 07/18/19 Dyslipidemia, goal to be determined 05/29/2002 05/07/2009 Overview: Per Lipid Taxonomy. FAM HX-DIABETES MELLITUS 05/29/2002 017 cystocoele 09/29/2017 Prolapse of vaginal celeste 2017 Overview: ICD-10 update of inactive term LEFT BB BLOCK NEC 07/18/2018 Other specified forms of chronic ischemic heart disease 02/23/2017 documented as of this encounter (statuses as of 01/09/2023) Immunizations Name Administration Dates Next Due COVID-19 [...] * Telephone Encounter - OPAL Peraza - 01/09/2023 11:50 AM EDT [facility] Engagement Attempt Engagement: Engagement Attempt 1: Unable to contact Engagement Attempt 2: Unable to contact Engagement Attempt 3: Unable to contact. Final attempt (send letter & refer via [id number]) Home Information: No data was found Advance Care Planning (ACP): No data was found Has Living Will or Advance Directive: No data was found Anticipated Sub-Program: Focused Care Management (3-9 months) Confirmation of Sub-Program Type (by care sales floor team member): No data was found Handoff Information: Current care team notified via: No data was found Current telemonitoring equipment: No data was found 01/09-LMOM for pt asking for a CB, added 2-wk FC, will mail out [facility] x3 letter documented in this encounter Plan of Treatment Upcoming Encounters Date Type Specialty Care Team Description 01/12/2023 Home Visit Family Medicine Cortney Benoit, [address] [place] [address] 01/20/2023 Office Visit Otolaryngology Jose R Kaye DO [address] [place] [address] 01/25/2023 Scheduled Telephone [facility] And Divorce Legal Assistant, [facility] Rodolfo [facility] [address] [place] [address] 02/07/2023 Office Visit Neurology Precious Dominguez PA-C [address] [facility] [place] [address] 04/19/2023 Office Visit Pharmacy [facility] Lori [address] [facility] [place] [address] Health Maintenance Due Date Last Done Comments [...] Over 06/02/2023 06/02/2022 CKD HGB USE SMARTSET 14235 10/08/202310/07, 02/21/2022, 12/09/2020, Additional history exists CKD PHOS USE SMARTSET 13548 10/08/202309/19, 02/21/2022, 07/18/2018 O2 ASSESSMENT COMPLETED IN [...] patient have Health Care Power of Spinner Box? No Healthcare Agents on File Name Relationship Healthcare Agent Relationshi p Communication Lacy Tong Adult Child Health Care Repr esentative (appointed verbally by patient or by statute hierarchy) Care Teams Biology Tutor Relationship Specialty Start Date End Date Roman Ennis III, MD [address] [place] [address] PCP - General Family Medicine 06/28/18 documented as of this encounter
--- OUTSIDE RECORDS SUMMARY | 2023-06-29 05:40 | External Medical Summary | Summary of Care ---
Author Name Unknown Organization [facility] Address [address] [place] [address] Phone [phone] Care Team Providers Care Cane Weigher Name Role Phone Loli NORWOOD MD, Roman Barraza Primary Care Provider [phone] Encounter Details Date Type Department Care Team Description 01/09/2023 Telephone Care Coordination [address] [place] [address] Cristiano, Selina, OPAL Allergies Active Allergy Reactions Severity Noted Date [...] ml/min) 05/11/2018 Coronary artery disease invo lving [place] coronary artery of [place] heart without angina pectoris 05/08/2018 Anxiety state [...] Overview: Modified by Acute [place] Protocol #5. [facility] [place] right coronary [...] for Patients with Cardiovascular Disease Project #: [id number] PI: Peyton Conn MD [phone] GENOMICS CARDIO RESEARCH OTHER*[id number] 200606/28/2016 Overview: Renamed Per Clinical Trials Billing Project. Study Title: Genomic Markers for Patients with Cardiovascular Disease Project #: [id number] PI: Peyton Conn MD [phone] LV (left ventricular) mural thrombus 10/30/2006 12/28/2017 Tobacco use disorder 09/07/2006 06/09/2009 Acute inferior myocardial infarction 08/19/2006 12/11/2008 Overview: Modified by Acute [place] Protocol #5. [facility] [place] right coronary bare metal stents EXAMINATION OF PARTICIPANT IN CLINICAL TRIAL - H ORIZONS 08/19/2006 09/04/2009 Overview: Renamed Per Clinical Trials Billing Project. [facility] AMI clinical trial 263 Single blind trial comparing heparin and IIB/IIIA with bivalirudin, and Taxus vs bare metal stent. Patient Follow-up for 5 years Profile Stitching Machine Operator: Trent Verduzco [phone] [facility] Clinical Trial*[id number] 08/19/2006 09/08/2014 Overview: Renamed Per Clinical Trials Billing Project. [facility] AMI clinical trial 263 Single blind trial comparing heparin and IIB/IIIA with bivalirudin, and Taxus vs bare metal stent. Patient Follow-up for 5 years Profile Stitching Machine Operator: Trent Verduzco [phone] Menopause 08/29/2002 02/23/2017 LOC PRIM [id number] 05/29/2002 07/18/19 19 Dyslipidemia, goal to be [...] Miscellaneous Notes * Telephone Encounter - OPAL Vazquez - 01/09/2023 2:12 PM EDT TICKET PRINTER AND TAGGER NOTE: UT 3 - TICKET PRINTER AND TAGGER unable to reach, LVM requesting call back to further discuss resource needs. TICKET PRINTER AND TAGGER third and final attempt to reacg - pleas re-send task if contact is made and slot manager is still needed. TICKET PRINTER AND TAGGER closing referral. documented in this encounter Plan of Treatment Upcoming Encounters Date Type Specialty Care Team Description 01/12/2023 Home Visit Family Medicine Cortney Benoit, Community Health Corrosion Engineer [address] [place] [address] [place] [address] 01/20/2023 Office Visit Otolaryngology Jose R Kaye DO [address] [place] [address] 01/25/2023 Scheduled Telephone [facility] Job Service Specialist, Jose Ying [address] [place] [address] 02/07/2023 Office Visit Neurology Precious Dominguez PA-C 200 [facility] [employer], [place] [address] 04/19/2023 Office Visit Pharmacy [facility] Lori [address] [place] [address] Health Maintenance Due Date Last Done Comments [...] Over 06/02/2023 06/02/2022 CKD HGB USE SMARTSET 82765 10/08/202310/07, 02/21/2022, 12/09/2020, Additional history exists CKD PHOS USE SMARTSET 37938 10/08/202309/19, 02/21/2022, 07/18/2018 O2 ASSESSMENT COMPLETED IN [...] the patient have Health Care Power of Cutting And Creasing Press Operator? No Healthcare Agents on File Name Relationship Healthcare Agent Relationshi p Communication Lacy Tong Adult Child Health Care Repr esentative (appointed verbally by patient or by statute hierarchy) Care Teams Cane Weigher Relationship Specialty Start Date End Date Roman Ennis III, MD [address] [facility] [place] [facility] [address] PCP - General Family Medicine 06/28/18 documented as of this encounter
--- OUTSIDE RECORDS SUMMARY | 2023-06-29 05:40 | External Medical Summary | Summary of Care ---
Author Name Unknown Organization [facility] Address [address] [place] [address] Phone [phone] Care Team Providers Care Teletypewriter Installer Name Role Phone Loli NORWOOD MD, Roman Barraza Primary Care Provider [phone] Encounter Details Date Type Department Care Team Description 01/10/2023 Orders Only Outcomes Research Department [address] [place] [address] Peyton Quintero CHRA MyCode Research Other*[id number] Allergies Active Allergy Reactions Severity Noted Date Comments Isosorbide Mononitrate 12/24/2007 Severe headaches Nsaids 05/29/2002 Tramadol Hcl Nausea/vomiting Low 01/09/2008 UGI distress documented as of this encounter (statuses as of 01/10/2023) Medications Medication Sig Dispensed Refills Start Date [...] as of this encounter (statuses as of 01/10/2023) Active Problems Problem Noted Date Chronic combined [...] ml/min) 05/11/2018 Coronary artery disease invo lving [place] coronary artery of [place] heart without angina pectoris 05/08/2018 Anxiety state [...] Overview: Modified by Acute [place] Protocol [place]5. [facility] [place] coronary bare metal stents S/P angioplasty with stent 09/07/2006 History of tobacco use documented as of this encounter (statuses as of 01/10/2023) Resolved Problems Problem Noted Date Resolved Date [...] for Patients with Cardiovascular Disease Project #: [id number] PI: Peyton Conn MD [phone] GENOMICS CARDIO RESEARCH OTHER*[id number] 200606/28/2016 Overview: Renamed Per Clinical Trials Billing Project. Study Title: Genomic Markers for Patients with Cardiovascular Disease Project #: [id number] PI: Peyton Conn MD [phone] LV (left ventricular) mural thrombus 10/30/2006 12/28/2017 Tobacco use disorder 09/07/2006 06/09/2009 Acute inferior myocardial infarction 08/19/2006 12/11/2008 Overview: Modified by Acute [place] Protocol #5. [facility] [place] coronary bare metal stents EXAMINATION OF PARTICIPANT IN CLINICAL TRIAL - H ORIZONS 08/19/2006 09/04/2009 Overview: Renamed Per Clinical Trials Billing Project. [facility] AMI clinical trial 263 Single blind trial comparing heparin and IIB/IIIA with bivalirudin, and Taxus vs bare metal stent. Patient Follow-up for 5 years Manufacturing Inspector: Trent Verduzco [phone] [facility] Clinical Trial*[id number] 08/19/2006 09/08/2014 Overview: Renamed Per Clinical Trials Billing Project. [facility] AMI clinical trial 263 Single blind trial comparing heparin and IIB/IIIA with bivalirudin, and Taxus vs bare metal stent. Patient Follow-up for 5 years Manufacturing Inspector: Trent Verduzco [phone] Menopause 08/29/2002 02/23/2017 LOC PRIM [id number] 05/29/2002 07/18/19 19 Dyslipidemia, goal to be determined 05/29/2002 05/07/2009 Overview: Per Lipid Taxonomy. FAM HX-DIABETES MELLITUS 05/29/2002 017 cystocoele 09/29/2017 Prolapse of vaginal celeste 2017 Overview: ICD-10 update of inactive term LEFT BB BLOCK NEC 07/18/2018 Other specified forms of chronic ischemic heart disease 02/23/2017 documented as of this encounter (statuses as of 01/10/2023) Immunizations Name Administration Dates Next Due COVID-19 [...] 01/12/2023 Home Visit Family Medicine Cortney Benoit, [address] [place] [address] 01/20/2023 Office Visit Otolaryngology Jose R Kaye DO [address] [employer] [address] [place] [address] 01/25/2023 Scheduled Telephone [facility] at Research Chief Engineer, Jose Ying [address] [employer] [place] [address] 02/07/2023 Office Visit Neurology Precious [facility]inguez [facility]-C [facility] [address] 04/19/2023 Office Visit Pharmacy [facility] [address] [place] [address] Scheduled Orders Name Type Priority Associated Diagnoses Orde r Schedule MYCODE SUBSEQUENT ADULT Lab Routine MyCode Research Other*[id number] Every 6 Months for 2 Occurrences starting 01/10/2023 until 01/30/2024 Health Maintenance Due Date Last Done Comments DISCUSS TOBACCO CESSATION (REFER TO SMARTSET #3721) 1945 Alpha-1 Antitrypsin 1965 DIABETES-EYE EXAM 1965 [...] Over 06/02/2023 06/02/2022 CKD HGB USE SMARTSET 69150 10/08/202310/07, 02/21/2022, 12/09/2020, Additional history exists CKD PHOS USE SMARTSET 78391 10/08/202309/19, 02/21/2022, 07/18/2018 O2 ASSESSMENT COMPLETED IN [...] as of this encounter Visit Diagnoses Diagnosis MyCode Research Other*[id number] documented in this encounter Advance Directives Latest [...] the patient have Health Care Power of Orthodontic Assistant? No Healthcare Agents on File Name Relationship Healthcare Agent [facility] Lacy Tong Adult Child Health Care Repr esentative (appointed verbally by patient or by statute hierarchy) Care Teams Teletypewriter Installer Relationship Specialty Start Date End Date Roman Ennis III, MD [address] [place] [address] PCP - General Family Medicine 06/28/18 documented as of this encounter
--- OUTSIDE RECORDS SUMMARY | 2023-06-29 05:40 | External Medical Summary | Summary of Care ---
Author Name Unknown Organization [facility] Address [address] [place] [address] Phone [phone] Care Team Providers Care Home Lending Officer Name Role Phone Loli NORWOOD MD, Roman Barraza Primary Care Provider [phone] Encounter Details Date Type Department Care Team Description 12/28/2022 Telephone Gastroenterology, [facility] [address] [place] [address] Ramila Quiros CRNP [address] [place] [address] Allergies Active Allergy Reactions Severity Noted Date [...] oxyCODONE HCl 5 MG Oral Tablet (Oxy IR)Indications:Recreational Leader fernando pain syndrome Take 1 Tablet [...] ml/min) 05/11/2018 Coronary artery disease invo lving [place] coronary artery of [place] heart without angina pectoris 05/08/2018 Anxiety state [...] Overview: Modified by Acute [place] Protocol #5. [facility] [...] for Patients with Cardiovascular Disease Project #: [id number] PI: Peyton Conn MD [phone] GENOMICS CARDIO RESEARCH OTHER*[id number] 200606/28/2016 Overview: Renamed Per Clinical Trials Billing Project. Study Title: Genomic Markers for Patients with Cardiovascular Disease Project #: [id number] PI: Peyton Conn MD [phone] LV (left ventricular) mural thrombus 10/30/2006 12/28/2017 Tobacco use disorder 09/07/2006 06/09/2009 Acute inferior myocardial infarction 08/19/2006 12/11/2008 Overview: Modified by Acute [place] Protocol #5. [facility] coronary bare metal stents EXAMINATION OF PARTICIPANT IN CLINICAL TRIAL - H ORIZONS 08/19/2006 09/04/2009 Overview: Renamed Per Clinical Trials Billing Project. [facility] AMI clinical trial 263 Single blind trial comparing heparin and IIB/IIIA with bivalirudin, and Taxus vs bare metal stent. Patient Follow-up for 5 years Flask Handler: Trent Verduzco [phone] [facility] Clinical Trial*[id number] 08/19/2006 09/08/2014 Overview: Renamed Per Clinical Trials Billing Project. [facility] AMI clinical trial 263 Single blind trial comparing heparin and IIB/IIIA with bivalirudin, and Taxus vs bare metal stent. Patient Follow-up for 5 years Flask Handler: Trent Verduzco [phone] [facility] 08/29/2002 02/23/2017 LOC PRIM [id number] 05/29/2002 07/18/19 19 Dyslipidemia, goal to be [...] imaging showing colitis, diarrhea and pain resolved OSCAR Krishna 12/28/2022 9:42 AM documented in this encounter Plan of Treatment Upcoming Encounters Date Type Specialty Care Team Description 01/12/2023 Home Visit Family Medicine Cortney Benoit, [address] [place] [address] 01/20/2023 Office Visit Otolaryngology Jose R Kaye DO [address] [place] [address] 01/25/2023 Scheduled Telephone [facility] Insulation [facility]lower, [facility] [address] [place] [address] 02/07/2023 Office Visit Neurology Precious Dominguez PA-C [address] [place] [address] 04/19/2023 Office Visit Pharmacy [facility] Lori [address] [place] [address] Scheduled Orders Name Type Priority Associated Diagnoses Orde r Schedule COLONOSCOPY, DIAGNOSTIC (RECTUM) Procedures Routine Colitis Abnormal finding on GI tract imaging Ordered: 12/28/2022 Health Maintenance Due Date Last Done Comments DISCUSS TOBACCO CESSATION (REFER TO SMARTSET #5106) 1945 Alpha-1 Antitrypsin 1965 DIABETES-EYE EXAM 1965 [...] Over 06/02/2023 06/02/2022 CKD HGB USE SMARTSET 69822 10/08/202310/07, 02/21/2022, 12/09/2020, Additional history exists CKD PHOS USE SMARTSET 77319 10/08/202309/19, 02/21/2022, 07/18/2018 O2 ASSESSMENT COMPLETED IN [...] the patient have Health Care Power of Dispensing Operator? No Healthcare Agents on File Name Relationship Healthcare Agent Relationshi p Communication Lacy Tong Adult Child Health Care Repr esentative (appointed verbally by patient or by statute hierarchy) Care Teams Home Lending Officer Relationship Specialty Start Date End Date Roman Ennis III, MD [address] [place] [address], [place] [address] PCP - General Family Medicine 06/28/18 documented as of this encounter
--- OUTSIDE RECORDS SUMMARY | 2023-06-29 05:41 | External Medical Summary | Summary of Care ---
Author Name Unknown Organization [facility] Address [address] [place] [address] Phone [phone] Care Team Providers Care Offshore Wind Operations Manager Name Role Phone Loli NORWOOD MD, Roman Barraza Primary Care Provider [phone] Encounter Details Date Type Department Care Team Description 01/05/2023 Food Service AmbassadorLandscape Designer Practice [facility] [place] [address] [facility] [place] [address] Ciara Menendez, RN Medical home patient encounter* Allergies Active Allergy Reactions Severity Noted Date Comments Isosorbide Mononitrate 12/24/2007 Severe headaches Nsaids 05/29/2002 Tramadol Hcl Nausea/vomiting Low 01/09/2008 UGI distress documented as of this encounter (statuses as of 01/05/2023) Medications Medication Sig Dispensed Refills Start Date [...] as of this encounter (statuses as of 01/05/2023) Active Problems Problem Noted Date Chronic combined [...] ml/min) 05/11/2018 Coronary artery disease invo lving [place] coronary artery of [place] heart without angina pectoris 05/08/2018 Anxiety state [...] Overview: Modified by Acute [place] Protocol #5. [facility] [place] [place] coronary bare metal stents S/P angioplasty with stent 09/07/2006 History of tobacco use documented as of this encounter (statuses as of 01/05/2023) Resolved Problems Problem Noted Date Resolved Date [...] for Patients with Cardiovascular Disease Project #: [id number] PI: Peyton Conn MD [phone] GENOMICS CARDIO RESEARCH OTHER*[id number] 200606/28/2016 Overview: Renamed Per Clinical Trials Billing Project. Study Title: Genomic Markers for Patients with Cardiovascular Disease Project #: [id number] PI: Peyton Conn MD [phone] LV (left ventricular) mural thrombus 10/30/2006 12/28/2017 Tobacco use disorder 09/07/2006 06/09/2009 Acute inferior myocardial infarction 08/19/2006 12/11/2008 Overview: Modified by Acute [place] Protocol #5. [facility] right coronary bare metal stents EXAMINATION OF PARTICIPANT IN CLINICAL TRIAL - H ORIZONS 08/19/2006 09/04/2009 Overview: Renamed Per Clinical Trials Billing Project. [facility] AMI clinical trial 263 Single blind trial comparing heparin and IIB/IIIA with bivalirudin, and Taxus vs bare metal stent. Patient Follow-up for 5 years Puff Iron Operator: Trent Verduzco [phone] [facility] Clinical Trial*[id number] 08/19/2006 09/08/2014 Overview: Renamed Per Clinical Trials Billing Project. [facility] AMI clinical trial 263 Single blind trial comparing heparin and IIB/IIIA with bivalirudin, and Taxus vs bare metal stent. Patient Follow-up for 5 years Puff Iron Operator: Trent Verduzco [phone] Menopause 08/29/2002 02/23/2017 LOC PRIM [id number] 05/29/2002 07/18/19 19 Dyslipidemia, goal to be determined 05/29/2002 05/07/2009 Overview: Per Lipid Taxonomy. FAM HX-DIABETES MELLITUS 05/29/2002 017 cystocoele 09/29/2017 Prolapse of vaginal celeste 2017 Overview: ICD-10 update of inactive term LEFT BB BLOCK NEC 07/18/2018 Other specified forms of chronic ischemic heart disease 02/23/2017 documented as of this encounter (statuses as of 01/05/2023) Immunizations Name Administration Dates Next Due COVID-19 mRNA, LNP-s, No Pre serve, 2-Dose Series (Moderna) 11/12/2020,10/01/2020 H1N1 2009 Influenza, IM 06/08/2009 HEP A - Hepatitis A (Adult > 18 yrs) 04/02/2018, 07/24/2017 01/24/2018 Hepatitis B, 20+ yrs 04/02/2018,09/29/2017,07/2408/24/2017 Pneumococcal Conjugate Vacc, 13 Valent (Prevnar) 10/22/2014 Pneumococcal Polysaccharide PPV23 (Pneumovax) 02/23/2017,02/26/2007 Seasonal Influenza Intranasal 03/29/2013 Seasonal Influenza, Quadriva lent, No Preserve, 6 Mons & Above, IM 04/02/2018 Seasonal Influenza, Quadriva lent, No Preserve, [...] Progress Notes * Ciara Menendez RN - 01/05/2023 2:43 PM EDT CM discussed case with Pamela Lopez PA-C Pt had blood in stool and needs to follow up with GI MARCELINA Pt was also referred to [facility] for follow up-they have not yet reached patient to engage CM placed t/c to pt for [facility] follow up: Follow-up Post Discharge Attempted Phone Call Second Attempt Call Outcome Left Voicemail/Message Plan To attempt another outreach documented in this encounter Plan of Treatment Upcoming Encounters Date Type Specialty Care Team Description 01/06/2023 Scheduled Telephone [facility] Occupational Therapy Asst, Jose Ying [address] [place] [address] 01/12/2023 Home Visit Family Medicine Cortney Benoit, [address] [place] [address] 01/20/2023 Office Visit Otolaryngology Jose R Kaye DO [address] [place] [address] 02/07/2023 Office Visit Neurology Precious Dominguez PA-C [address] [place] [address] 04/19/2023 Office Visit Pharmacy [facility] Lori [address] [place] [address] Health Maintenance Due Date Last Done Comments DISCUSS TOBACCO CESSATION (REFER TO SMARTSET #4538) 1945 Alpha-1 Antitrypsin 1965 DIABETES-EYE EXAM 1965 [...] Over 06/02/2023 06/02/2022 CKD HGB USE SMARTSET 06508 10/08/202310/07, 02/21/2022, 12/09/2020, Additional history exists CKD PHOS USE SMARTSET 95540 10/08/202309/19, 02/21/2022, 07/18/2018 O2 ASSESSMENT COMPLETED IN [...] the patient have Health Care Power of President Ceo & Founder? No Healthcare Agents on File Name Relationship Healthcare Agent Relationshi p Communication Lacy Tong Adult Child Health Care Repr esentative (appointed verbally by patient or by statute hierarchy) Care Teams Offshore Wind Operations Manager Relationship Specialty Start Date End Date Roman Ennis III, MD [address] [place] [address] PCP - General Family Medicine 06/28/18 documented as of this encounter
--- OUTSIDE RECORDS SUMMARY | 2023-06-29 05:41 | External Medical Summary | Summary of Care ---
Author Name Unknown Organization [facility] Address [address] [place] [address] Phone [phone] Care Team Providers Care Implementation Project Manager Name Role Phone Loli NORWOOD MD, Roman Barraza Primary Care Provider [phone] Reason for Referral * Medication Prior Authorization - Closed Specialty Diagnoses / Procedures Referred By Xuan bey Referred To Contact Diagnoses Nausea Beto Cosby DO [address] [place] [address] Referral ID Status Reason Start Date Expiration Date Visits Re quested Visits Authorized [id number] Closed 999 999 * Medication Prior Authorization - Closed Specialty Diagnoses / Procedures Referred By Xuan bey Referred To Contact Diagnoses Chronic pain syndrome Beto Cosby DO [address] [place] [address] Referral ID Status Reason Start Date Expiration Date Visits Re quested Visits Authorized [id number] Closed 999 999 Reason for Visit * Reason Onset Date Comments Medication Refill 01/02/2023 Encounter Details Date Type Department Care Team Description 01/02/2023 Refill Family Practice [facility] [place] [address] [place] [address] Roman Ennis III, MD [address] [place] [address] Chronic pain syndrome; Nausea Allergies Active Allergy Reactions Severity Noted Date Comments Isosorbide Mononitrate 12/24/2007 Severe headaches Nsaids 05/29/2002 Tramadol Hcl Nausea/vomiting Low 01/09/2008 UGI distress documented as of this encounter (statuses as of 01/03/2023) Medications Medication Sig Dispensed Refills Start Date [...] or Dyspnea. 54 g 1 04/21/2021 Active hydrOXYzine HCl 25 MG Oral Tablet TAKE ONE TABLET BY MOUTH THREE TIMES DAILY NEEDED FOR ANXIETY 90 Tablet 2 09/16/2021 Active Cyanocobalamin 1000 MCG Oral Tablet (Cyanocobalamin) [...] oxyCODONE HCl 5 MG Oral Tablet (Oxy IR)Indications:Railway Yard Assistant fernando pain syndrome Take 1 Tablet by mouth every 6 hours as needed for Pain, Severe. 100 Tablet 0 01/03/2023 Active Ondansetron HCl 4 MG Oral Tablet (Zofran)Indications :Nausea Take 1 Tablet by mouth every 8 hours as needed for Nausea. 20 Tablet 0 01/03/2023 Active Ondansetron HCl 4 MG Oral Tablet (Zofran)Indications :Nausea Take 1 Tablet by mouth every 8 hours as needed for Nausea. 20 Tablet 0 10/19/2022 01/03/20 23 Discontinu ed(Refill) oxyCODONE HCl 5 MG Oral Tablet (Oxy IR)Indications:Railway Yard Assistant fernando pain syndrome Take 1 Tablet by mouth every 6 hours as needed for Pain, Severe. 100 Tablet 0 12/09/2022 01/03/20 23 Discontinu ed(Refill) documented as of this encounter (statuses as of 01/03/2023) Active Problems Problem Noted Date Infrarenal abdominal aortic aneurysm (AA A) without [...] Overview: Modified by Acute [place] Protocol #5. [facility] right coronary bare metal stents S/P angioplasty with stent 09/07/2006 History of tobacco use documented as of this encounter (statuses as of 01/03/2023) Resolved Problems Problem Noted Date Resolved Date [...] for Patients with Cardiovascular Disease Project #: [id number] PI: Peyton Conn MD [phone] GENOMICS CARDIO RESEARCH OTHER*[id number] 200606/28/2016 Overview: Renamed Per Clinical Trials Billing Project. Study Title: Genomic Markers for Patients with Cardiovascular Disease Project #: [id number] PI: Peyton Conn MD [phone] LV (left ventricular) mural thrombus 10/30/2006 12/28/2017 Tobacco use disorder 09/07/2006 06/09/2009 Acute inferior myocardial infarction 08/19/2006 12/11/2008 Overview: Modified by Acute [place] Protocol #5. [facility] right coronary bare metal stents EXAMINATION OF PARTICIPANT IN CLINICAL TRIAL - Belle SAAVEDRA 08/19/2006 09/04/2009 Overview: Renamed Per Clinical Trials Billing Project. [facility] AMI clinical trial 263 Single blind trial comparing heparin and IIB/IIIA with bivalirudin, and Taxus vs bare metal stent. Patient Follow-up for 5 years Solder Sprayer: Trent Verduzco [phone] [facility] Clinical Trial*[id number] 08/19/2006 09/08/2014 Overview: Renamed Per Clinical Trials Billing Project. [facility] AMI clinical trial 263 Single blind trial comparing heparin and IIB/IIIA with bivalirudin, and Taxus vs bare metal stent. Patient Follow-up for 5 years Solder Sprayer: Trent Verduzco [phone] Menopause 08/29/2002 02/23/2017 LOC PRIM [id number] 05/29/2002 07/18/19 19 Dyslipidemia, goal to be determined 05/29/2002 05/07/2009 Overview: Per Lipid Taxonomy. FAM HX-DIABETES MELLITUS 05/29/2002 017 cystocoele 09/29/2017 Prolapse of vaginal celeste 2017 Overview: ICD-10 update of inactive term LEFT BB BLOCK NEC 07/18/2018 Other specified forms of chronic ischemic heart disease 02/23/2017 documented as of this encounter (statuses as of 01/03/2023) Immunizations Name Administration Dates Next Due COVID-19 [...] Telephone Encounter - Beto Cosby DO - 01/03/2023 3:56 PM EDTSigned Prescriptions: Disp Refills oxyCODONE HCl 5 MG Oral Tablet (Oxy IR) 100 Ta*0 Sig: Take 1 Tablet by mouth every 6 hours as needed for Pain, Severe.Authorizing Provider: BETO COSBY Ondansetron HCl 4 MG Oral Tablet (Zofran) 20 Tab*0 Sig: Take 1 Tablet by mouth every 8 hours as needed for Nausea.Authorizing Provider: BETO COSBY * Telephone Encounter - Beto oCsby DO - 01/03/2023 3:56 PM EDTSigned Prescriptions: Disp Refills oxyCODONE HCl 5 MG Oral Tablet (Oxy IR) 100 Ta*0 Sig: Take 1 Tablet by mouth every 6 hours as needed for Pain, Severe. Authorizing Provider: BETO COSBY Ondansetron HCl 4 MG Oral Tablet (Zofran) 20 Tab*0 Sig: Take 1 Tablet by mouth every 8 hours as needed for Nausea. Authorizing Provider: BETO COSBY * Telephone Encounter - Bettina Sewell CPhT - 01/03/2023 2:42 PM EDT Pt calling in to check status of refills. She is out. Please advise. Thank you, Bettina Sewell Email Marketing Manager [facility] ([facility]) (formerly Telepharmacy) 01/03/2023, 2:43 PM * Telephone Encounter - Chauncey Mcmullen [facility] - 01/03/2023 8:01 AM EDTPending Prescriptions: Disp Refills oxyCODONE HCl 5 MG Oral Tablet (Oxy IR) 100 Ta*0 Sig: Take 1 Tablet by mouth every 6 hours as needed for Pain, Severe. Ondansetron HCl 4 MG Oral Tablet (Zofran) 20 Tab*0 Sig: Take 1 Tablet by mouth every 8 hours as needed for Nausea. * Telephone Encounter - Chauncey Mcmullen [facility] - 01/03/2023 7:59 AM EDT I have reviewed the patients controlled substance dispensing history in the Prescription Drug Monitoring Program in compliance with the [facility] regulations before prescribing a controlled substance. PDMP checked on 01/03/2023. Pending Prescriptions: Disp Refills oxyCODONE HCl 5 MG Oral Tablet (Oxy IR) 100 Ta*0 Sig: Take 1 Tablet by mouth every 6 hours as needed for Pain, Severe. Last Visit: 10/14/2022 (in office), 08/24/2020 (telemedicine) Next Visit: 01/04/2023 Date medication was last filled: 12/09/2022 Date medication is due for refill: 01/02/2023 Pharmacy: [facility], [address] DAM[place] BARNEY Is this request for [...] Review. Please approve if appropriate. Thank You, Chauncey Mcmullen, Pharm-D Clinical Pharmacist [facility] ([facility]) ([facility]) [phone] 01/03/2023, 8:00 AM * Telephone Encounter - Mercedes Ciera Clinton [facility] - 01/02/2023 10:38 AM EDT Did you pend patient's preferred pharmacy and medication before forwarding?yes Pharmacy: [facility], [address] [place] BARNEY Pending Prescriptions: Disp Refills oxyCODONE HCl 5 MG Oral Tablet (Oxy IR) 100 Ta*0 Sig: Take 1 Tablet by mouth every 6 hours as needed for Pain, Severe. Ondansetron HCl 4 MG Oral Tablet (Zofran) 20 Tab*0 Sig: Take 1 Tablet by mouth every 8 hours as needed for Nausea. Last Visit: 10/14/2022 (in office), 08/24/2020 (telemedicine) Next Visit: 01/04/2023 If no future appointments scheduled, and last appointment is greater than a year ago, please schedule patient for a follow-up appointment Last date the medication was ordered: 10/19/22, 12/09/22 Is this request for a controlled substance?Yes, What was the last refill date 12/09/22 w/ quantity 100 and dosage 5 MG and Urine Drug Screen Not completed Urine Drug Screen: Results for orders [...] Encounters Date Type Specialty Care Team Description 01/04/2023 Office Visit Family Medicine Pamela Lopez PA-C [address] [facility] [place] [address] 01/12/2023 Home Visit Family Medicine Cy [address] [place] [address] 01/20/2023 Office Visit Otolaryngology Jose R Kaye DO [address] [place] [address] 02/07/2023 Office Visit Neurology Precious Dominguez PA-C [address] [place] [address] 04/19/2023 Office Visit Pharmacy [facility]ori [address] [place] [address] Health Maintenance Due Date Last Done Comments [...] Over 06/02/2023 06/02/2022 CKD HGB USE SMARTSET 60788 10/08/202310/07, 02/21/2022, 12/09/2020, Additional history exists CKD PHOS USE SMARTSET 25365 10/08/202309/19, 02/21/2022, 07/18/2018 O2 ASSESSMENT COMPLETED IN PAST YEAR FOR COPD 10/15/2023 10/14/2022 DTaP,Tdap,and Td Vaccines (4 - Td or [...] encounter Visit Diagnoses Diagnosis Chronic pain syndrome Nausea Nausea alone documented in this encounter [...] the patient have Health Care Power of Outpatient Psychiatrist? No Healthcare Agents on File Name Relationship Healthcare Agent Relationshi p Communication Lacy Tong Adult Child Health Care Repr esentative (appointed verbally by patient or by statute hierarchy) Care Teams Implementation Project Manager Relationship Specialty Start Date End Date Roman Ennis III, MD [address] [place] [address] PCP - General Family Medicine 06/28/18 documented as of this encounter
--- OUTSIDE RECORDS SUMMARY | 2023-06-29 05:41 | External Medical Summary | Summary of Care ---
Author Name Unknown Organization [facility] Address [address] [place] [address] Phone [phone] Care Team Providers Care Wire Loop Machine Operator Name Role Phone Loli NORWOOD MD, Roman Barraza Primary Care Provider [phone] Encounter Details Date Type Department Care Team Description 01/04/2023 [facility] [place] [address] [facility] [place] [address] Ciara Menendez, RN Medical home patient encounter* Allergies Active Allergy Reactions Severity Noted Date Comments Isosorbide Mononitrate 12/24/2007 Severe headaches Nsaids 05/29/2002 Tramadol Hcl Nausea/vomiting Low 01/09/2008 UGI distress documented as of this encounter (statuses as of 01/04/2023) Medications Medication Sig Dispensed Refills Start Date [...] for Nausea. 20 Tablet 0 01/03/2023 Active documented as of this encounter (statuses as of 01/04/2023) Active Problems Problem Noted Date Infrarenal abdominal [...] ml/min) 05/11/2018 Coronary artery disease invo lving [place] coronary artery of [place] heart without angina pectoris 05/08/2018 Anxiety state [...] MYOCARDIAL INFARCT 12/11/2008 Overview: Modified by Acute [place] Protocol #5. [facility] right coronary bare metal stents S/P angioplasty with stent 09/07/2006 History of tobacco use documented as of this encounter (statuses as of 01/04/2023) Resolved Problems Problem Noted Date Resolved Date [...] for Patients with Cardiovascular Disease Project #: [id number] PI: Peyton Conn MD [phone] GENOMICS CARDIO RESEARCH OTHER*[id number] 200606/28/2016 Overview: Renamed Per Clinical Trials Billing Project. Study Title: Genomic Markers for Patients with Cardiovascular Disease Project #: [id number] PI: Peyton Conn MD [phone] LV (left ventricular) mural thrombus 10/30/2006 12/28/2017 Tobacco use disorder 09/07/2006 06/09/2009 Acute inferior myocardial infarction 08/19/2006 12/11/2008 Overview: Modified by Acute [place] Protocol #5. [facility] right coronary bare metal stents EXAMINATION OF PARTICIPANT IN CLINICAL TRIAL - H ORIZONS 08/19/2006 09/04/2009 Overview: Renamed Per Clinical Trials Billing Project. [facility] AMI clinical trial 263 Single blind trial comparing heparin and IIB/IIIA with bivalirudin, and Taxus vs bare metal stent. Patient Follow-up for 5 years Full Service Vending Driver: Trent Verduzco [phone] [facility] Clinical Trial*[id number] 08/19/2006 09/08/2014 Overview: Renamed Per Clinical Trials Billing Project. [facility] AMI clinical trial 263 Single blind trial comparing heparin and IIB/IIIA with bivalirudin, and Taxus vs bare metal stent. Patient Follow-up for 5 years Full Service Vending Driver: Trent Verduzco [phone] Menopause 08/29/2002 02/23/2017 LOC PRIM [id number] 05/29/2002 07/18/19 19 Dyslipidemia, goal to be determined 05/29/2002 05/07/2009 Overview: Per Lipid Taxonomy. FAM HX-DIABETES MELLITUS 05/29/2002 017 cystocoele 09/29/2017 Prolapse of vaginal celeste 2017 Overview: ICD-10 update of inactive term LEFT BB BLOCK NEC 07/18/2018 Other specified forms of chronic ischemic heart disease 02/23/2017 documented as of this encounter (statuses as of 01/04/2023) Immunizations Name Administration Dates Next Due COVID-19 [...] Progress Notes * Ciara Menendez RN - 01/04/2023 11:14 AM EDT Call for TRAVIS comprehensive/appt reminder: Follow-up Post Discharge Attempted Phone Call First Attempt Call Outcome Left Voicemail/Message Plan To attempt another outreach documented in this encounter Plan of Treatment Upcoming Encounters Date Type Specialty Care Team Description 01/04/2023 Office Visit Family Medicine Pamela Lopez PA-C [address] [facility] [place] [address] 01/12/2023 Home Visit Family Medicine Cortney Benoit[address] [place] [address] 01/20/2023 Office Visit Otolaryngology Jose R Kaye DO [address] [place] [address] 02/07/2023 Office Visit Neurology Precious Dominguez PA-C [address] [place] [address] 04/19/2023 Office Visit Pharmacy [facility] [address] [place] [address] Health Maintenance Due Date Last Done Comments [...] Over 06/02/2023 06/02/2022 CKD HGB USE SMARTSET 32104 10/08/202310/07, 02/21/2022, 12/09/2020, Additional history exists CKD PHOS USE SMARTSET 92617 10/08/202309/19, 02/21/2022, 07/18/2018 O2 ASSESSMENT COMPLETED IN [...] the patient have Health Care Power of Sales And Leasing Consultant? No Healthcare Agents on File Name Relationship Healthcare Agent Relationshi p Communication Lacy Tong Adult Child Health Care Repr esentative (appointed verbally by patient or by statute hierarchy) Care Teams Wire Loop Machine Operator Relationship Specialty Start Date End Date Roman Ennis III, MD [address] [place] [address] [place] [address] PCP - General Family Medicine 06/28/18 documented as of this encounter
--- OUTSIDE RECORDS SUMMARY | 2023-06-29 05:41 | External Medical Summary | Summary of Care ---
Author Name Unknown Organization [facility] Address [address] [place] [address] Phone [phone] Care Team Providers Care Mat Inspector Name Role Phone Loli NORWOOD MD, Roman Barraza Primary Care Provider [phone] Reason for Visit * Reason Onset Date Comments [facility]: Engagement 01/06/2023 Encounter Details Date Type Department Care Team Description 01/06/2023 Scheduled Telephone [facility], [facility] [address] [facility] [place] [address] Coordinator, [facility] [address] [facility] [place] [address] Allergies Active Allergy Reactions Severity Noted Date [...] ml/min) 05/11/2018 Coronary artery disease invo lving [place] coronary artery of [place] heart without angina pectoris 05/08/2018 Anxiety state [...] Overview: Modified by Acute [place] Protocol #5. [facility] right coronary bare metal stents [...] for Patients with Cardiovascular Disease Project #: [id number] PI: Peyton Conn MD [phone] GENOMICS CARDIO RESEARCH OTHER*[id number] 200606/28/2016 Overview: Renamed Per Clinical Trials Billing Project. Study Title: Genomic Markers for Patients with Cardiovascular Disease Project #: [id number] PI: Peyton Conn MD [phone] LV (left ventricular) mural thrombus 10/30/2006 12/28/2017 Tobacco use disorder 09/07/2006 06/09/2009 Acute inferior myocardial infarction 08/19/2006 12/11/2008 Overview: Modified by Acute [place] Protocol #5. [facility] right coronary bare metal stents EXAMINATION OF PARTICIPANT IN CLINICAL TRIAL - H ORIZONS 08/19/2006 09/04/2009 Overview: Renamed Per Clinical Trials Billing Project. [facility] AMI clinical trial 263 Single blind trial comparing heparin and IIB/IIIA with bivalirudin, and Taxus vs bare metal stent. Patient Follow-up for 5 years Non Garment Sewing Machine Operator: Trent Verduzco [phone] [facility] Clinical Trial*[id number] 08/19/2006 09/08/2014 Overview: Renamed Per Clinical Trials Billing Project. [facility] AMI clinical trial 263 Single blind trial comparing heparin and IIB/IIIA with bivalirudin, and Taxus vs bare metal stent. Patient Follow-up for 5 years Non Garment Sewing Machine Operator: Trent Verduzco [phone] [facility] 08/29/2002 02/23/2017 LOC PRIM [id number] 05/29/2002 07/18/19 19 Dyslipidemia, goal to be [...] encounter Miscellaneous Notes * Telephone Encounter - Shama Lambert LPN - 01/06/2023 8:01 AM EDT [facility] Enrollment Form Screening: Referral Source: PCP/Specialty Primary Reason for Referral (Select most relevant): No data was found Engagement: Engagement Attempt 1: Unable to contact Engagement Attempt 2: Unable to contact Left message to return call to [facility] Engagement Attempt 3: No data was found Home Information: No data was found Advance Care Planning (ACP): No data was found Has Living Will or Advance Directive: No data was found Anticipated Sub-Program: Focused Care Management (3-9 months) Confirmation of Sub-Program Type (by care preanalytics team lead): No data was found Handoff Information: Current care team notified via: No data was found Current telemonitoring equipment: No data was found documented in this encounter Plan of Treatment Upcoming Encounters Date Type Specialty Care Team Description 01/09/2023 Scheduled Telephone [facility] Utilization Management, [address] [place] [address] 01/12/2023 Home Visit Family Medicine Cortney Benoit, [address] [place] [address] 01/20/2023 Office Visit Otolaryngology Jose R Kaye, [address] [place] [address] 02/07/2023 Office Visit Neurology Precious Dominguez PA-C [address] [place] [address] 04/19/2023 Office Visit Pharmacy [facility] [place] [address] [place] [address] Health Maintenance Due Date Last Done Comments [...] Over 06/02/2023 06/02/2022 CKD HGB USE SMARTSET 99955 10/08/202310/07, 02/21/2022, 12/09/2020, Additional history exists CKD PHOS USE SMARTSET 68340 10/08/202309/19, 02/21/2022, 07/18/2018 O2 ASSESSMENT COMPLETED IN [...] the patient have Health Care Power of Material Manager? No Healthcare Agents on File Name Relationship Healthcare Agent Relationshi p Communication Lacy Tong Adult Child Health Care Repr esentative (appointed verbally by patient or by statute hierarchy) Care Teams Mat Inspector Relationship Specialty Start Date End Date Roman Ennis III, MD [facility] [place] [address] PCP - General Family Medicine 06/28/18 documented as of this encounter
--- OUTSIDE RECORDS SUMMARY | 2023-06-29 05:41 | External Medical Summary | Summary of Care ---
Author Name Unknown Organization [facility] Address [address] [place] [address] Phone [phone] Care Team Providers Care Township Clerk Name Role Phone Loli NORWOOD MD, Roman Barraza Primary Care Provider [phone] Reason for Visit * Reason Onset Date Comments [facility]: Screening 01/05/2023 Encounter Details Date Type Department Care Team Description 01/05/2023 Telephone [facility], [facility] [address] [facility] [place] [address] [facility], Nurse [facility] [address] [facility] [place] [address] [facility]: Screening Allergies Active Allergy [...] ml/min) 05/11/2018 Coronary artery disease invo lving [place] [...] Overview: Modified by Acute [place] Protocol #5. [facility] right coronary bare metal stents [...] for Patients with Cardiovascular Disease Project #: [id number] PI: Peyton Conn MD [phone] GENOMICS CARDIO RESEARCH OTHER*[id number] 200606/28/2016 Overview: Renamed Per Clinical Trials Billing Project. Study Title: Genomic Markers for Patients with Cardiovascular Disease Project #: [id number] PI: Peyton Conn MD [phone] LV (left ventricular) mural thrombus 10/30/2006 12/28/2017 Tobacco use disorder 09/07/2006 06/09/2009 Acute inferior myocardial infarction 08/19/2006 12/11/2008 Overview: Modified by Acute [place] Protocol #5. [facility] right coronary bare metal stents EXAMINATION OF PARTICIPANT IN CLINICAL TRIAL - H ORIZOKATHLEEN 08/19/2006 09/04/2009 Overview: Renamed Per Clinical Trials Billing Project. [facility] AMI clinical trial 263 Single blind trial comparing heparin and IIB/IIIA with bivalirudin, and Taxus vs bare metal stent. Patient Follow-up for 5 years Concrete Paving Supervisor: Trent Verduzco [phone] [facility] Clinical Trial*[id number] 08/19/2006 09/08/2014 Overview: Renamed Per Clinical Trials Billing Project. [facility] AMI clinical trial 263 Single blind trial comparing heparin and IIB/IIIA with bivalirudin, and Taxus vs bare metal stent. Patient Follow-up for 5 years Concrete Paving Supervisor: Trent Verduzco [phone] [facility] 08/29/2002 02/23/2017 LOC PRIM [id number] 05/29/2002 07/18/19 19 Dyslipidemia, goal to be [...] encounter Miscellaneous Notes * Telephone Encounter - Shannan Mooney LPN [...] Referring care team was notified via : [employer] communication documented in this encounter Plan of Treatment Upcoming Encounters Date Type Specialty Care Team Description 01/12/2023 Home Visit Family Medicine Cortney [place], [facility] [address] [place] [address] 01/20/2023 Office Visit Otolaryngology Jose R Kaye DO [address] [place] [address] 02/07/2023 Office Visit Neurology Precious Dominguez PA-C [address] [facility] [place] [address] 04/19/2023 Office Visit Pharmacy [facility] [address] [place] [address] Health Maintenance Due Date Last Done Comments DISCUSS TOBACCO CESSATION (REFER TO SMARTSET #8221) 1945 Alpha-1 Antitrypsin 1965 DIABETES-EYE EXAM 1965 [...] Over 06/02/2023 06/02/2022 CKD HGB USE SMARTSET 73935 10/08/202310/07, 02/21/2022, 12/09/2020, Additional history exists CKD PHOS USE SMARTSET 89665 10/08/202309/19, 02/21/2022, 07/18/2018 O2 ASSESSMENT COMPLETED IN [...] the patient have Health Care Power of Bank Messenger? No Healthcare Agents on File Name Relationship Healthcare Agent Relationshi p Communication Lacy Tong Adult Child Health Care Repr esentative (appointed verbally by patient or by statute hierarchy) Care Teams Township Clerk Relationship Specialty Start Date End Date Roman Ennis III, MD [address] [place] [address] PCP - General Family Medicine 06/28/18 documented as of this encounter
--- OUTSIDE RECORDS SUMMARY | 2023-06-29 05:41 | External Medical Summary | Summary of Care ---
Author Name Unknown Organization [facility] Address [address] [place] [address] Phone [phone] Care Team Providers Care Grant Manager Name Role Phone Loli NORWOOD MD, Roman Barraza Primary Care Provider [phone] Encounter Details Date Type Department Care Team Description 12/28/2022 Telephone Gastroenterology, [facility] [address] [place] [address] Ramila Quiros CRNP [address] [place] [address] Allergies Active Allergy Reactions Severity Noted Date [...] oxyCODONE HCl 5 MG Oral Tablet (Oxy IR)Indications:Master Yacht fernando pain syndrome Take 1 Tablet by [...] MYOCARDIAL INFARCT 12/11/2008 Overview: Modified by Acute [place] Protocol #5. [facility] [...] for Patients with Cardiovascular Disease Project #: [id number] PI: Peyton Conn MD [phone] GENOMICS CARDIO RESEARCH OTHER*[id number] 200606/28/2016 Overview: Renamed Per Clinical Trials Billing Project. Study Title: Genomic Markers for Patients with Cardiovascular Disease Project #: [id number] PI: Peyton Conn MD [phone] LV (left ventricular) mural thrombus 10/30/2006 12/28/2017 Tobacco use disorder 09/07/2006 06/09/2009 Acute inferior myocardial infarction 08/19/2006 12/11/2008 Overview: Modified by Acute [place] Protocol #5. [facility] [place] coronary bare metal stents EXAMINATION OF PARTICIPANT IN CLINICAL TRIAL - H ORIZONS 08/19/2006 09/04/2009 Overview: Renamed Per Clinical Trials Billing Project. [facility] clinical trial 263 Single blind trial comparing heparin and IIB/IIIA with bivalirudin, and Taxus vs bare metal stent. Patient Follow-up for 5 years Cashier Assistant: Trent Verduzco [phone] [facility] Clinical Trial*[id number] 08/19/2006 09/08/2014 Overview: Renamed Per Clinical Trials Billing Project. [facility] AM[facility] clinical trial 263 Single blind trial comparing heparin and IIB/IIIA with bivalirudin, and Taxus vs bare metal stent. Patient Follow-up for 5 years Cashier Assistant: Trent Verduzco [phone] [facility] 08/29/2002 02/23/2017 LOC PRIM [id number] 05/29/2002 07/18/19 19 Dyslipidemia, goal to be [...] 01/12/2023 Home Visit Family Medicine Cortney Benoit, [address] [place] [address] 01/20/2023 Office Visit Otolaryngology Jose R Kaye, [address] [place] [address] 02/07/2023 Office Visit Neurology Precious Dominguez PA-C [address] [place] [address] 04/19/2023 Office Visit Pharmacy [facility] Lori [address] [place] [address] Scheduled Orders Name Type Priority Associated Diagnoses [...] 02/21/2023 02/21/2022, 03/0 07/2019 GFR 04/09/2023 10/07/2022, 10/07/2021, 12/09/2020, Additional history exists Depression Screening, Annual for Pts 12 and Over 06/02/2023 06/02/2022 CKD HGB USE SMARTSET 88570 10/08/202310/07, 02/21/2022, 12/09/2020, Additional history exists CKD PHOS USE SMARTSET 91125 10/08/2023 05/1 01/2023, 02/21/2022, 07/18/2018 O2 ASSESSMENT [...] the patient have Health Care Power of Roller Inspector? No Healthcare Agents on File Name Relationship Healthcare Agent Relationshi p Communication Lacy Tong Adult Child Health Care Repr esentative (appointed verbally by patient or by statute hierarchy) Care Teams Grant Manager Relationship Specialty Start Date End Date Roman Ennis III, MD [address] [place] [address], [place] [address] PCP - General Family Medicine 06/28/18 documented as of this encounter
--- OUTSIDE RECORDS SUMMARY | 2023-06-29 05:41 | External Medical Summary | Summary of Care ---
Author Name Unknown Organization [facility] Address [address] [place] [address] Phone [phone] Care Team Providers Care Sales Force Administrator Name Role Phone Loli NORWOOD MD, Roman Barraza Primary Care Provider [phone] Encounter Details Date Type Department Care Team Description 01/06/2023 Full Stack Php DeveloperAnimal Assisted Therapist Practice [facility] [place] [address] [place] [address] Ciara Menendez, RN Medical home patient encounter* [...] Overview: Modified by Acute [place] Protocol #5. [facility] [...] for Patients with Cardiovascular Disease Project #: [id number] PI: Peyton Conn MD [phone] GENOMICS CARDIO RESEARCH OTHER*[id number] 200606/28/2016 Overview: Renamed Per Clinical Trials Billing Project. Study Title: Genomic Markers for Patients with Cardiovascular Disease Project #: [id number] PI: Peyton Conn MD [phone] LV (left ventricular) mural thrombus 10/30/2006 12/28/2017 Tobacco use disorder 09/07/2006 06/09/2009 Acute inferior myocardial infarction 08/19/2006 12/11/2008 Overview: Modified by Acute [place] Protocol #5. [facility] right coronary bare metal stents EXAMINATION OF PARTICIPANT IN CLINICAL TRIAL - H ORIZONS 08/19/2006 09/04/2009 Overview: Renamed Per Clinical Trials Billing Project. [facility] AMI clinical trial 263 Single blind trial comparing heparin and IIB/IIIA with bivalirudin, and Taxus vs bare metal stent. Patient Follow-up for 5 years Specialty Manufacturing Supervisor: Trent Verduzco [phone] [facility] Clinical Trial*[id number] 08/19/2006 09/08/2014 Overview: Renamed Per Clinical Trials Billing Project. [facility] AMI clinical trial 263 Single blind trial comparing heparin and IIB/IIIA with bivalirudin, and Taxus vs bare metal stent. Patient Follow-up for 5 years Specialty Manufacturing Supervisor: Trent Verduzco [phone] Menopause 08/29/2002 02/23/2017 LOC PRIM [id number] 05/29/2002 07/18/19 19 Dyslipidemia, goal to be [...] Progress Notes * Ciara Menendez RN - 01/06/2023 9:49 AM EDT CM attempted to call pt for TRAVIS follow up CM attempted to contact pt's daughter/designated health critical care physician but number in EPIC is out of service: Follow-up Post Discharge Attempted Phone Call Third Attempt Call Outcome Left Voicemail/Message Plan Sent to [facility] for cold call documented in this encounter Plan of Treatment Upcoming Encounters Date Type Specialty Care Team Description 01/06/2023 Scheduled Telephone [facility] Physical Therapist, [facility] [address] [place] [address] 01/09/2023 Scheduled Telephone [facility], [facility] Rodolfo Ying [address] [place] [address] 01/12/2023 Home Visit Family Medicine Cortney Benoit [address] [place] [address] 01/20/2023 Office Visit Otolaryngology Jose R Kaye DO [address] [place] [address] 02/07/2023 Office Visit Neurology Precious Dominguez PA-C [address] [facility] [place] [address] 04/19/2023 Office Visit Pharmacy [facility] Lori [address] [place] [address] Health Maintenance Due Date Last Done Comments DISCUSS TOBACCO CESSATION (REFER TO SMARTSET #1707) 1945 Alpha-1 Antitrypsin 1965 DIABETES-EYE EXAM 1965 [...] Over 06/02/2023 06/02/2022 CKD HGB USE SMARTSET 69267 10/08/202310/07, 02/21/2022, 12/09/2020, Additional history exists CKD PHOS USE SMARTSET 42623 10/08/202309/19, 02/21/2022, 07/18/2018 O2 ASSESSMENT COMPLETED IN [...] the patient have Health Care Power of Oracle Drm Consultant? No Healthcare Agents on File Name Relationship Healthcare Agent Relationshi p Communication Lacy Tong Adult Child Health Care Repr esentative (appointed verbally by patient or by statute hierarchy) Care Teams Sales Force Administrator Relationship Specialty Start Date End Date Roman Ennis III, MD [address] [place] [address], [place] [address] PCP - General Family Medicine 06/28/18 documented as of this encounter
--- OUTSIDE RECORDS SUMMARY | 2023-06-29 05:41 | External Medical Summary | Summary of Care ---
Author Name Unknown Organization [facility] Address [address] [place] [address] Phone [phone] Care Team Providers Care Medical Records Manager Name Role Phone Loli NORWOOD MD, Roman Barraza Primary Care Provider [phone] Reason for Visit * Reason Onset Date Comments [facility]: Screening 01/05/2023 [facility]: Engagement 01/05/2023 Encounter Details Date Type Department Care Team Description 01/05/2023 Telephone [facility], [facility] [address] [facility] [place] [address] [facility], Nurse [facility] [address] [facility] [place] [address] [facility]: Screening; [facility]... Allergies [...] ml/min) 05/11/2018 Coronary artery disease invo lving [place] coronary artery of [place] heart without angina pectoris 05/08/2018 Anxiety state [...] Overview: Modified by Acute [place] Protocol #5. [facility] [place] coronary bare metal stents S/P angioplasty [...] for Patients with Cardiovascular Disease Project #: [id number] PI: Peyton Conn MD [phone] GENOMICS CARDIO RESEARCH OTHER*[id number] 200606/28/2016 Overview: Renamed Per Clinical Trials Billing Project. Study Title: Genomic Markers for Patients with Cardiovascular Disease Project #: [id number] PI: Peyton Conn MD [phone] LV (left ventricular) mural thrombus 10/30/2006 12/28/2017 Tobacco use disorder 09/07/2006 06/09/2009 Acute inferior myocardial infarction 08/19/2006 12/11/2008 Overview: Modified by Acute [place] Protocol #5. [facility] [place] coronary bare metal stents EXAMINATION OF PARTICIPANT IN CLINICAL TRIAL - H ORIZONS 08/19/2006 09/04/2009 Overview: Renamed Per Clinical Trials Billing Project. [facility] clinical trial 263 Single blind trial comparing heparin and IIB/IIIA with bivalirudin, and Taxus vs bare metal stent. Patient Follow-up for 5 years Threading Machine Tender: Trent Verduzco [phone] [facility] Clinical Trial*[id number] 08/19/2006 09/08/2014 Overview: Renamed Per Clinical Trials Billing Project. [facility] clinical trial 263 Single blind trial comparing heparin and IIB/IIIA with bivalirudin, and Taxus vs bare metal stent. Patient Follow-up for 5 years Threading Machine Tender: Trent Verduzco [phone] Menopause 08/29/2002 02/23/2017 LOC PRIM [id number] 05/29/2002 07/18/19 19 Dyslipidemia, goal to be [...] Notes * Telephone Encounter - Lisa Landeros [facility] Health Accounting Tutor - 01/05/2023 2:01 PM EDT [facility] [place] Enrollment Form Screening: Referral Source: PCP/Specialty Primary [...] Confirmation of Sub-Program Type (by care steam fitter supervisor maintenance): No data was found Handoff Information: Current care team notified via: No data was found Current telemonitoring equipment: No data was found [facility] Left voicemail Can offer 01/11/2023 @ 2:00 pm. Areli L 01/16/2023 @ 9:30 am Cy / OPAL Gilbert Electronically signed by Lisa Landeros [facility] Health Accounting Tutor at 01/05/2023 2:03 PM EDT * Telephone [...] Referring care team was notified via : Sendmail communication documented in this encounter Plan of Treatment Upcoming Encounters Date Type Specialty Care Team Description 01/06/2023 Scheduled Telephone [facility] Chain Maker Loom Control, [facility] [address] [place] [address] 01/12/2023 Home Visit Family Medicine Cortney Benoit[address] [place] [address] 01/20/2023 Office Visit Otolaryngology Jose R Kaye DO [address] [place] [address] 02/07/2023 Office Visit Neurology Precious Dominguez PA-C [address] [facility] [address] 04/19/2023 Office Visit Pharmacy [facility] Lori [address] [place] [address] Health Maintenance Due Date Last Done Comments [...] Over 06/02/2023 06/02/2022 CKD HGB USE SMARTSET 56855 10/08/202310/07, 02/21/2022, 12/09/2020, Additional history exists CKD PHOS USE SMARTSET 35094 10/08/202309/19, 02/21/2022, 07/18/2018 O2 ASSESSMENT COMPLETED IN [...] the patient have Health Care Power of Potato Seed Cutter? No Healthcare Agents on File Name Relationship Healthcare Agent Relationshi p Communication Lacy Tong Adult Child Health Care Repr esentative (appointed verbally by patient or by statute hierarchy) Care Teams Medical Records Manager Relationship Specialty Start Date End Date Roman Ennis III, MD [address] [place] [address] PCP - General Family Medicine 06/28/18 documented as of this encounter
--- OUTSIDE RECORDS SUMMARY | 2023-06-29 05:42 | External Medical Summary | Summary of Care ---
Author Name Unknown Organization [facility] Address [address] [place] [address] Phone [phone] Care Team Providers Care Manual Tester Name Role Phone Loli NORWOOD MD, Roman Barraza Primary Care Provider [phone] Encounter Details Date Type Department Care Team Description 01/02/2023 Telephone Care Coordination [address], [place] [id number] [facility] Cameraman [address] [place], [place] [id number] Allergies Active Allergy Reactions Severity Noted Date Comments Isosorbide Mononitrate 12/24/2007 Severe headaches Nsaids 05/29/2002 Tramadol Hcl Nausea/vomiting Low 01/09/2008 UGI distress documented as of this encounter (statuses as of 01/02/2023) Medications Medication Sig Dispensed Refills Start Date [...] in the morning. 30 Tablet 10/19/2022 Active Ondansetron HCl 4 MG Oral Tablet (Zofran)Indications: Nausea Take 1 Tablet by mouth every 8 hours as needed for Nausea. 20 Tablet 0 10/19/2022 Active Potassium Chloride Kim ER 20 MEQ Oral Tablet Extended Release TAKE ONE TABLET BY MOUTH EVERY DAY 30 Tablet 11 10/21/2022 Active oxyCODONE HCl 5 MG Oral Tablet (Oxy IR)Indications:Chron ic pain syndrome Take 1 Tablet by mouth every 6 hours as needed for Pain, Severe. 100 Tablet 0 12/09/2022 Active documented as of this encounter (statuses as of 01/02/2023) Active Problems Problem Noted Date Infrarenal abdominal [...] ml/min) 05/11/2018 Coronary artery disease invo lving [place] coronary artery of [place] heart without angina pectoris 05/08/2018 Anxiety state [...] Overview: Modified by Acute [place] Protocol #5. [facility] [place] coronary bare metal stents S/P angioplasty with stent 09/07/2006 History of tobacco use documented as of this encounter (statuses as of 01/02/2023) Resolved Problems Problem Noted Date Resolved Date [...] for Patients with Cardiovascular Disease Project #: [id number] PI: Peyton Conn MD [phone] GENOMICS CARDIO RESEARCH OTHER*[id number] 200606/28/2016 Overview: Renamed Per Clinical Trials Billing Project. Study Title: Genomic Markers for Patients with Cardiovascular Disease Project #: [id number] PI: Peyton Conn MD [phone] LV (left ventricular) mural thrombus 10/30/2006 12/28/2017 Tobacco use disorder 09/07/2006 06/09/2009 Acute inferior myocardial infarction 08/19/2006 12/11/2008 Overview: Modified by Acute MS Protocol #5. [facility] right coronary bare metal stents EXAMINATION OF PARTICIPANT IN CLINICAL TRIAL - H ORIZONS 08/19/2006 09/04/2009 Overview: Renamed Per Clinical Trials Billing Project. [facility] AMI clinical trial 263 Single blind trial comparing heparin and IIB/IIIA with bivalirudin, and Taxus vs bare metal stent. Patient Follow-up for 5 years Seed Cleaner Operator: Trent Verduzco [phone] [facility] Clinical Trial*[id number] 08/19/2006 09/08/2014 Overview: Renamed Per Clinical Trials Billing Project. [facility] AMI clinical trial 263 Single blind trial comparing heparin and IIB/IIIA with bivalirudin, and Taxus vs bare metal stent. Patient Follow-up for 5 years Seed Cleaner Operator: Trent Verduzco [phone] Menopause 08/29/2002 02/23/2017 LOC PRIM [id number] 05/29/2002 07/18/19 19 Dyslipidemia, goal to be determined 05/29/2002 05/07/2009 Overview: Per Lipid Taxonomy. FAM HX-DIABETES MELLITUS 05/29/2002 017 cystocoele 09/29/2017 Prolapse of vaginal celeste 2017 Overview: ICD-10 update of inactive term LEFT BB BLOCK NEC 07/18/2018 Other specified forms of chronic ischemic heart disease 02/23/2017 documented as of this encounter (statuses as of 01/02/2023) Immunizations Name Administration Dates Next Due COVID-19 [...] Miscellaneous Notes * Telephone Encounter - Karena [facility] Cameraman - 01/02/2023 12:19 PM EDT Arrived to home for scheduled MARILYN visit Patient states she has had N/V for past 2 days and wishes to reschedule visit. Declined PCP appt, stating she has appt on 01/04 and plans to keep. DAMARIS Urbina--Radha was agreeable to rescheduling next week. I'm working with the other MARILYN (Ankit) who covers this area to get visit rescheduled with her. documented in this encounter Plan of Treatment Upcoming Encounters Date Type Specialty Care Team Description 01/04/2023 Office Visit Family Medicine Pamela Lopez PA-C [address] [place] [address] 01/12/2023 Home Visit Family Medicine Cortney Benoit [address] [place] [address] 01/20/2023 Office Visit Otolaryngology Jose R Kaye DO [address] [place] [address] 02/07/2023 Office Visit Neurology Precious Dominguez PA-C [address] [place] [address] 04/19/2023 Office Visit Pharmacy [facility] Lori [address] [place] [address] Health Maintenance Due Date Last Done Comments DISCUSS TOBACCO CESSATION (REFER TO SMARTSET #9678) 1945 Alpha-1 Antitrypsin 1965 DIABETES-EYE EXAM 1965 [...] Over 06/02/2023 06/02/2022 CKD HGB USE SMARTSET 08877 10/08/202310/07, 02/21/2022, 12/09/2020, Additional history exists CKD PHOS USE SMARTSET 00179 10/08/202309/19, 02/21/2022, 07/18/2018 O2 ASSESSMENT COMPLETED IN [...] the patient have Health Care Power of Legal Stenographer? No Healthcare Agents on File Name Relationship Healthcare Agent Relationshi p Communication Lacy Tong Adult Child Health Care Repr esentative (appointed verbally by patient or by statute hierarchy) Care Teams Manual Tester Relationship Specialty Start Date End Date Roman Ennis III, MD [address] [facility] [place] [address] PCP - General Family Medicine 06/28/18 documented as of this encounter
--- OUTSIDE RECORDS SUMMARY | 2023-06-29 05:42 | External Medical Summary | Summary of Care ---
Author Name Unknown Organization [facility] Address [address] [facility] [place] [address] Phone [phone] Care Team Providers Care Cold Mill Inspector Name Role Phone Loli NORWOOD MD, Roman Barraza Primary Care Provider [phone] Reason for Visit * Reason Onset Date Comments Referral 01/03/2023 Encounter Details Date Type Department Care Team Description 01/03/2023 Telephone Pharmacy Call Center [address] [facility] [place] [address] [address] [facility] [address] [place] [address] [facility] [place] [address] Referral Allergies Active Allergy Reactions Severity Noted Date [...] the morning. 30 Tablet 11 10/19/2022 Active Ondansetron HCl 4 MG Oral [...] Overview: Modified by Acute [place] Protocol #5. [facility] right coronary bare metal stents S/P angioplasty [...] for Patients with Cardiovascular Disease Project #: [id number] PI: Peyton Conn MD [phone] GENOMICS CARDIO RESEARCH OTHER*[id number] 200606/28/2016 Overview: Renamed Per Clinical Trials Billing Project. Study Title: Genomic Markers for Patients with Cardiovascular Disease Project #: [id number] PI: Peyton Conn MD [phone] LV (left ventricular) mural thrombus 10/30/2006 12/28/2017 Tobacco use disorder 09/07/2006 06/09/2009 Acute inferior myocardial infarction 08/19/2006 12/11/2008 Overview: Modified by Acute [place] Protocol #5. [facility] right coronary bare metal stents EXAMINATION OF PARTICIPANT IN CLINICAL TRIAL - H ORIZONS 08/19/2006 09/04/2009 Overview: Renamed Per Clinical Trials Billing Project. [facility] AMI clinical trial 263 Single blind trial comparing heparin and IIB/IIIA with bivalirudin, and Taxus vs bare metal stent. Patient Follow-up for 5 years Tag Press Operator: Trent Verduzco [phone] [facility] Clinical Trial*[id number] 08/19/2006 09/08/2014 Overview: Renamed Per Clinical Trials Billing Project. [facility] AMI clinical trial 263 Single blind trial comparing heparin and IIB/IIIA with bivalirudin, and Taxus vs bare metal stent. Patient Follow-up for 5 years Tag Press Operator: Trent Verduzco [phone] Menopause 08/29/2002 02/23/2017 LOC PRIM [id number] 05/29/2002 07/18/19 19 Dyslipidemia, goal to be [...] encounter Miscellaneous Notes * Telephone Encounter - KRISTIE Hahn - 01/03/2023 1:47 PM EDT Radha Tong Patient Phone Numbers Radha is discharged from Medication Therapy Disease Management service at this time and has been made aware to contact the clinic if sh changes her mind. The clinic has tried multiple times to contact the patient to schedule an appointment without success. Will discharge patient at this time. Patient has been made inactive on the roster. Thank you, Elsie Avitia Capacity Manager Centralized Clinical Pharmacy Services 01/03/2023,1:47 PM documented in this encounter Plan of Treatment Upcoming Encounters Date Type Specialty Care Team Description 01/04/2023 Office Visit Family Medicine Pamela Lopez PA-C [address] [place] [address] 01/12/2023 Home Visit Family Medicine Cortney Benoit, [address] [place] [address] 01/20/2023 Office Visit Otolaryngology Jose R Kaye DO [address] [place] [address] 02/07/2023 Office Visit Neurology Precious Dominguez PA-C [address] [place] [address] 04/19/2023 Office Visit Pharmacy [facility] Lori [address] [place] [address] Health Maintenance Due Date Last Done Comments DISCUSS TOBACCO CESSATION (REFER TO SMARTSET #3297) 1945 Alpha-1 Antitrypsin 1965 DIABETES-EYE EXAM 1965 [...] Over 06/02/2023 06/02/2022 CKD HGB USE SMARTSET 94815 10/08/202310/07, 02/21/2022, 12/09/2020, Additional history exists CKD PHOS USE SMARTSET 34136 10/08/202309/19, 02/21/2022, 07/18/2018 O2 ASSESSMENT COMPLETED IN [...] the patient have Health Care Power of Body Repairer? No Healthcare Agents on File Name Relationship Healthcare Agent Relationshi p Communication Lacy Tong Adult Child Health Care Repr esentative (appointed verbally by patient or by statute hierarchy) Care Teams Cold Mill Inspector Relationship Specialty Start Date End Date Roman Ennis III, MD [address] [place] [address] PCP - General Family Medicine 06/28/18 documented as of this encounter
--- OUTSIDE RECORDS SUMMARY | 2023-06-29 05:42 | External Medical Summary | Summary of Care ---
Author Name Unknown Organization [facility] Address [address] [place] [address] Phone [phone] Care Team Providers Care Phlebotomist Medical Lab Assistant Name Role Phone Loli NORWOOD MD, Roman Barraza Primary Care Provider [phone] Reason for Visit * Reason Onset Date Comments Returning Call 12/26/2022 Encounter Details Date Type Department Care Team Description 12/26/2022 Telephone [place] [facility] [place] [address] [place] [address] Roman Ennis III, MD [address] [facility] [place] [address] Returning Call Allergies Active Allergy Reactions Severity Noted Date [...] ml/min) 05/11/2018 Coronary artery disease invo lving [place] coronary artery of [place] heart without angina pectoris 05/08/2018 Anxiety state [...] Overview: Modified by Acute [place] Protocol #5. [facility] [place] [...] for Patients with Cardiovascular Disease Project #: [id number] PI: Peyton Conn MD [phone] GENOMICS CARDIO RESEARCH OTHER*[id number] 200606/28/2016 Overview: Renamed Per Clinical Trials Billing Project. Study Title: Genomic Markers for Patients with Cardiovascular Disease Project #: [id number] PI: Peyton Conn MD [phone] LV (left ventricular) mural thrombus 10/30/2006 12/28/2017 Tobacco use disorder 09/07/2006 06/09/2009 Acute inferior myocardial infarction 08/19/2006 12/11/2008 Overview: Modified by Acute [place] Protocol #5. [facility] [place] coronary bare metal stents EXAMINATION OF PARTICIPANT IN CLINICAL TRIAL - H ORIZONS 08/19/2006 09/04/2009 Overview: Renamed Per Clinical Trials Billing Project. [facility] AMI clinical trial 263 Single blind trial comparing heparin and IIB/IIIA with bivalirudin, and Taxus vs bare metal stent. Patient Follow-up for 5 years Trim Stencil Maker: Trent Verduzco [phone] [facility] Clinical Trial*[id number] 08/19/2006 09/08/2014 Overview: Renamed Per Clinical Trials Billing Project. [facility] AMI clinical trial 263 Single blind trial comparing heparin and IIB/IIIA with bivalirudin, and Taxus vs bare metal stent. Patient Follow-up for 5 years Trim Stencil Maker: Trent Verduzco [phone] Menopause 08/29/2002 02/23/2017 LOC PRIM [id number] 05/29/2002 07/18/19 19 Dyslipidemia, goal to be [...] encounter Miscellaneous Notes * Telephone Encounter - Alessandra Atkinson LPN - 01/02/2023 2:59 PM EDT Patient has upcoming appt 01/04. * Telephone Encounter - Lisa Escobar LPN - 12/27/2022 8:23 AM EDT There isn't a note in that anyone tried to call her, unsure * Telephone Encounter - OPAL Liz - 12/26/2022 5:04 PM EDT Patient is calling, says someone from the office called her. No answer at nurse line or in office. Please call * Telephone Encounter - OPAL Ulloa - 12/26/2022 2:31 PM EDT Pt came in for appt and was getting checked in at 2:02pm 12/26 pts appt was for 1:20 pm Pt was checked in at E1 check out due to pt refusing to go to E2 for check in while E1 check in wasclosed due to the par running to the bathroom. Pt was screaming across the check in desks at pars saying that she was mad that the water fountain was down and she was not walking to E2 Pt was checked in and then nurses informed us that she was late to the appt and that she needed to reschedule. Pt was told that she needed to reschedule and she started screaming again stating that" I WILL be seen today and I Do not care who the Hell they think they are" I went into pts chart to see if there were any openings to see if pt could be seen and there was anopening with Dr Xie at 3:40. Went to the nurses to confirm that I could schedule pt for the time and they stated that she could be seen but would need to wait until 3:40. I took out a bottle of water and went out to make pt aware of above info. Pt stated " I will not wait until 3:40 when I was here. You can tell them and you yourself can all go to hell." I again stated I was sorry and that we had to reschedule due her not being her on time but we couldstill fit her in and she stormed out of the building. FYI documented in this encounter Plan of Treatment Upcoming Encounters Date Type Specialty Care Team Description 01/04/2023 Office Visit Family Medicine Pamela Lopez PA-C [address] [place] [address] 01/12/2023 Home Visit Family Medicine Cortney Benoit, [address] [place] [address] 01/20/2023 Office Visit Otolaryngology Jose R Kaye DO [address] [place] [address] 02/07/2023 Office Visit Neurology Precious Dominguez PA-C [address] [place] [address] 04/19/2023 Office Visit Pharmacy [facility] Lori [address] [place] [address] Health Maintenance Due Date Last Done Comments DISCUSS TOBACCO CESSATION (REFER TO SMARTSET #1955) 1945 Alpha-1 Antitrypsin 1965 DIABETES-EYE EXAM 1965 [...] Over 06/02/2023 06/02/2022 CKD HGB USE SMARTSET 54952 10/08/202310/07, 02/21/2022, 12/09/2020, Additional history exists CKD PHOS USE SMARTSET 70174 10/08/202309/19, 02/21/2022, 07/18/2018 O2 ASSESSMENT COMPLETED IN [...] the patient have Health Care Power of Rd Project Manager? No Healthcare Agents on File Name Relationship Healthcare Agent Relationshi p Communication Lacy Tong Adult Child Health Care Repr esentative (appointed verbally by patient or by statute hierarchy) Care Teams Phlebotomist Medical Lab Assistant Relationship Specialty Start Date End Date Roman Ennis III, MD [address] [place] [address] PCP - General Family Medicine 06/28/18 documented as of this encounter
--- OUTSIDE RECORDS SUMMARY | 2023-06-29 05:42 | External Medical Summary | Summary of Care ---
Author Name Unknown Organization [facility] Address [address] [place] [address] Phone [phone] Care Team Providers Care Ed Case Manager Name Role Phone Loli NORWOOD MD, Roman Barraza Primary Care Provider [phone] Encounter Details Date Type Department Care Team Description 01/02/2023 Diagnostic Sales SpecialistSoftware Quality Specialist Practice [facility] Vero [address] [facility] [place] [address] Ciara Menendez, RN Medical home patient encounter* [...] ml/min) 05/11/2018 Coronary artery disease invo lving [place] coronary artery of [place] heart without angina pectoris 05/08/2018 Anxiety state [...] Overview: Modified by Acute [place] Protocol [place]5. [facility] for Patients with Cardiovascular Disease Project #: [id number] PI: Peyton Conn MD [phone] GENOMICS CARDIO RESEARCH OTHER*[id number] 200606/28/2016 Overview: Renamed Per Clinical Trials Billing Project. Study Title: Genomic Markers for Patients with Cardiovascular Disease Project #: [id number] PI: Peyton Conn MD [phone] LV (left ventricular) mural thrombus 10/30/2006 12/28/2017 Tobacco use disorder 09/07/2006 06/09/2009 Acute inferior myocardial infarction 08/19/2006 12/11/2008 Overview: Modified by Acute [place] Protocol [place]5. [facility] [place] bare metal stents EXAMINATION OF PARTICIPANT IN CLINICAL TRIAL - H ORIZONS 08/19/2006 09/04/2009 Overview: Renamed Per Clinical Trials Billing Project. [facility] AMI clinical trial 263 Single blind trial comparing heparin and IIB/IIIA with bivalirudin, and Taxus vs bare metal stent. Patient Follow-up for 5 years Put In Beat Adjuster: Trent Verduzco [phone] [facility] Clinical Trial*[id number] 08/19/2006 09/08/2014 Overview: Renamed Per Clinical Trials Billing Project. [facility] AMI clinical trial 263 Single blind trial comparing heparin and IIB/IIIA with bivalirudin, and Taxus vs bare metal stent. Patient Follow-up for 5 years Put In Beat Adjuster: Trent Verduzco [phone] Menopause 08/29/2002 02/23/2017 LOC PRIM [id number] 05/29/2002 07/18/19 19 Dyslipidemia, goal to be [...] Progress Notes * Ciara Menendez RN - 01/02/2023 12:15 PM EDT CM call for TRAVIS follow up Pt discharged from [facility] 12/29/22 1. Follow-up Post Discharge 2. Attempted Phone Call First Attempt 3. Call Outcome Unable to Leave Message 4. Plan To attempt another outreach documented in this encounter Plan of Treatment Upcoming Encounters Date Type Specialty Care Team Description 01/04/2023 Office Visit Family Medicine Pamela Lopez PA-C [address] [place] [address] 01/20/2023 Office Visit Otolaryngology Jose R Kaye DO [address] [place] [address] 02/07/2023 Office Visit Neurology Precious Dominguez PA-C [address] [place] [address] 04/19/2023 Office Visit Pharmacy [facility] Lori [address] [place] [address] Health Maintenance Due Date Last Done Comments DISCUSS TOBACCO CESSATION (REFER TO SMARTSET #3294) 1945 Alpha-1 Antitrypsin 1965 DIABETES-EYE EXAM 1965 [...] Over 06/02/2023 06/02/2022 CKD HGB USE SMARTSET 94176 10/08/202310/07, 02/21/2022, 12/09/2020, Additional history exists CKD PHOS USE SMARTSET 76288 10/08/202309/19, 02/21/2022, 07/18/2018 O2 ASSESSMENT COMPLETED IN [...] the patient have Health Care Power of Tanker Truck Driver? No Healthcare Agents on File Name Relationship Healthcare Agent Relationshi p Communication Lacy Tong Adult Child Health Care Repr esentative (appointed verbally by patient or by statute hierarchy) Care Teams Ed Case Manager Relationship Specialty Start Date End Date Roman Ennis III, MD [address] [place] [address] PCP - General Family Medicine 06/28/18 documented as of this encounter
[2023-06-29] MEDS ORDERED: PANTOprazole 40 MG TAB PO SCH (06:30)
[2023-06-29] MEDS: ALBUT/IPRATROP 3MG/0.5MG NEB 3 ML VIAL NEB SCH (07:01)
--- NOTE | 2023-06-29 08:01 | Electrocardiogram Report ---
Test Reason : Blood Pressure : / mmHG Vent. Rate : 089 BPM Atrial Rate : 089 BPM P-R Int : 166 ms QRS Dur : 114 ms QT Int : 418 ms P-R-T Axes : 075 -62 051 degrees QTc Int : 508 ms Atrial-sensed ventricular-paced rhythm Abnormal ECG When compared with ECG of 11-JAN-2023 20:30, Vent. rate has decreased BY 57 BPM Confirmed by Vineet Peoples ([id number]) on 06/29/2023 8:01:31 AM Referred By: REFERRED SELF Confirmed By:Vineet Peoples
[2023-06-29] MEDS: UMECLIDINIUM/VILANTEROL 62.5/25MCG 7 PUFFS/INHALER INH SCH (08:18)
[2023-06-29] MEDS: ATORVASTATIN 20 MG TAB PO SCH (08:18)
[2023-06-29] MEDS: FUROSEMIDE 40 MG TAB PO SCH (08:19)
[2023-06-29] MEDS: levETIRAcetam 500 MG TAB PO SCH (08:19)
[2023-06-29] MEDS: CYANOCOBALAMIN (B-12) 500 MCG TABLET PO SCH (08:19)
[2023-06-29] MEDS: lisinopril 20 MG TAB PO SCH (08:19)
[2023-06-29] MEDS: GABAPENTIN 300 MG CAP PO SCH ×2 (08:19→19:59)
[2023-06-29] MEDS: METOPROLOL SUCC 25MG EXT REL TAB PO SCH (08:20)
--- NOTE | 2023-06-29 08:40 | Gastrointestinal Consultation ---
Date of Consultation June 29, 2023 Assessment & Plan (1) Symptomatic anemia: (2) Generalized weakness: Pt is a 78 yo female who presented with generalized weakness, noted to have iron deficiency anemia on presentation. Past medical hx significant for CAD, CVA, DVT, and Afib on Plavix and Eliquis. No NSAIDs. Her troponin and BNP were also elevated w CXR findings of cardiomegaly + vascular congestion. She denies overt symptoms of GI bleeding - Diet as tolerated - Monitor blood ct and transfuse for goal >8 - PPI BID - Iron supplements. Complete anemia workup - Recommended EGD evaluation today but pt refused. Can offer EGD and colonoscopy for anemia eval in OP setting if pt agreeable. - Pls recall GI prn - Consider Cardiology consult Supervising Physician Co-Signing Physician Notes I saw and evaluated the patient. Gastroenterology was consulted for evaluation of iron deficiency anemia. The patient reports having no hematochezia, dark sticky stools or hematemesis. The patient had a prior patient however these were done in the past. Thus upper endoscopy to the patient, these could certainly be done at. At the present time the patient is declining these evaluations. Recomendations: Iron supplementation OP egd and colonoscopy offered to patient Please call with any question. History of Present Illness Reason for Consultation: Anemia Requesting Physician: Dr. Lam Freed Attending Physician: Dr. Roxy Roberts History of Present Illness Pt is a 78 yo female w PMHx of HLD, HTN, DM II, CKD III, CVA, CAD s/p stent placement, cardiomyopathy, ICD placement, seizure disorder, Afib on Eliquis & Plavis, DVT, COPD, tobacco abuse who presented to ED w c/o weakness for months. She denies light headedness, dizziness, CP, SOB. Have lots of fatigue and leg weakness. No abd pain but has nausea, vomiting wo hematemeis or coffee ground emesis. Stool wo melena or BRBPR. She was noted to be anemic w Hgb of 6.8, given 1U PRBC transfusion overnight. Plt 258, INR 1.1. BUN/Cr normal. She does have low Fe level of 11, Ferritin 3.8. Troponin and BNP elevated. CXR showed cardiomegaly w vascular congestion, CT abd/pelvis showed infrarenal AAA, s/p cholecystectomy, diverticulosis wo diverticulitis. CT head unremarkable. Colonoscopy 2012 unremarkable Denies ASA, NSAIDs, ETOH. + smokes 3-4 cigarettes a day Allergies Allergy/AdvReac Type Severity Reaction Status Date / Time NSAIDS (Non-Steroidal AdvReac Severe GI ISSUES Verified 06/28/23 18:11 Anti-Inflamma Myipwnc-UFN-NzC Reductase AdvReac Severe LIVER Verified 06/28/23 18:11 Inhibitor FUNCTION [Jbwmffg-Gbg-Osi Reductase ELEVATES Inhibitor] isosorbide AdvReac Intermediate VOMIT/HEADA Verified 06/28/23 18:11 CARLOS tramadol AdvReac Intermediate VOMITING Verified 06/28/23 18:11 Home Medications Medication Instructions Recorded Confirmed Type nitroglycerin 0.4 mg sublingual 0.4 mg sublingual DIRECTED PRN 03/30/17 06/28/23 History tablet Chest Pain #0 BTLS pantoprazole 40 mg tablet,delayed 40 mg PO DAILYBB #30 tabs 03/30/17 06/28/23 Hi story release oxycodone 5 mg tablet 5 mg PO Q6H PRN Severe Pain (Scale 08/16/20 06/28/23 History Score 7-10) atorvastatin 40 mg tablet 20 mg PO DAILY 10/05/22 06/28/23 History gabapentin 300 mg capsule See Rx Instructions .Route .COMPLEX 12/17/22 06/28/23 History ondansetron HCl 4 mg tablet 4 mg PO Q8H PRN Nausea 12/17/22 06/28/23 History umeclidinium 62.5 mcg-vilanterol 1 inh inhalation DAILY 12/17/22 06/28/23 History 25 mcg/actuation powdr for inhalation (Anoro Ellipta) apixaban 5 mg tablet (Eliquis) 5 mg PO BID #60 tabs 12/19/22 06/28/23 Rx clopidogrel 75 mg tablet 75 mg PO QAM #30 tabs 12/19/22 06/28/23 Rx levetiracetam 500 mg tablet 500 mg PO AMHS 01/11/23 06/28/23 History cyanocobalamin (vitamin B-12) 1,000 mcg PO QAM 06/28/23 06/28/23 History 1,000 mcg tablet (Vitamin B-12) furosemide 40 mg tablet See Rx Instructions .Route .COMPLEX 06/28/23 06/28/23 History lisinopril 20 mg tablet 20 mg PO QAM 06/28/23 06/28/23 History metoprolol succinate 25 mg 25 mg PO BID 06/28/23 06/28/23 History tablet,extended release 24 hr trazodone 50 mg tablet 25 mg PO HS 06/28/23 06/28/23 History Patient History Medical History History of DVT (deep vein thrombosis) Seizure disorder Paroxysmal atrial fibrillation Diabetes mellitus, type II History of CVA (cerebrovascular accident) Chronic pain Respiratory acidosis Elevated troponin Anxiety Chronic hepatitis C without hepatic coma CKD (chronic kidney disease), stage III COPD, group C, by GOLD 2017 classification Acute anterior wall SC LBBB (left bundle branch block) Migraine GERD (gastroesophageal reflux disease) OA (osteoarthritis) Hyperlipidemia HTN (hypertension) Ischemic cardiomyopathy CAD (coronary artery disease) "SC 2006. S/P PCI/Stent RCA" Hypoxia H/O cardiac pacemaker Surgical History H/O release of tendon History of carpal tunnel surgery H/O: hysterectomy Hx of cataract surgery S/P cardiac cath S/P cholecystectomy History of implantable cardioverter-defibrillator (ICD) placement Family History Father , age 81 of lung cancer Prostate cancer Heart disease Thyroid disorder Lung cancer Mother , age 80 with COPD Cancer Cervical Coronary heart disease s/p CABG Diabetes COPD (chronic obstructive pulmonary disease) Social History Smoking Status: Current every day smoker Tobacco Type: Cigarettes Age Started Using Tobacco: 23; packs per day: 0.5; Cigarettes Per Day: 4; Second Hand Exposure: No; Do You Dip or Chew Tobacco: No; Hx Alcohol Use: No Hx Substance Use: No Preferred Language: Trinidadian Communication Ability: Effective Press Machine Operator Required: No Beliefs That Will Affect Care: None Current Living Situation: Alone current occupational status: retired 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 [employer] Other Information That Helps Us Care for You: No Feels Safe at Home: Yes Safety Concerns: Feels Safe At This Time Assistive Devices: Cane and Glasses Review of Systems Review of Systems: All systems reviewed & are unremarkable except as noted in HPI & below Physical Exam Constitutional: WD/WN, vitals as above well groomed, cooperative and comfortable Eyes: PERRL, conjunctivae normal, anicteric sclerae ENMT: external ear and nose normal, oropharynx normal Respiratory: normal respiratory effort, lungs clear to auscultation (+ ronchi and diminished on bilateral bases) Cardiovascular: RRR, no murmur, no edema Gastrointestinal (Abdomen): normal bowel sounds, soft, nontender, no hepatosplenomegaly Skin: no rashes, warm and dry no jaundice Psychiatric: A+Ox3, euthymic affect Lymphatic: no lymphedema Results & Data Vital Signs (Past 12 Hours) Vital Signs Temp Pulse Pulse Resp BP BP Pulse Ox 06/29/23 08:14 36.8 C 86 18 122/60 97 06/29/23 07:05 84 18 99 06/29/23 02:55 36.9 C 77 18 106/49 L 94 06/29/23 00:30 36.9 C 76 16 146/83 H 95 06/28/23 23:30 06/28/23 23:00 36.9 C 76 16 100/54 L 98 06/28/23 23:00 36.9 C 86 18 146/83 H 98 06/28/23 22:03 80 16 98 06/28/23 22:03 36.9 C 16 98 06/28/23 22:00 36.9 C 80 16 120/59 L 98 06/28/23 21:53 86 06/28/23 21:45 36.9 C 82 16 124/73 97 06/28/23 21:30 37.0 C 83 16 124/74 98 06/28/23 21:15 37.3 C 79 16 121/69 97 06/28/23 21:00 85 23 98 06/28/23 21:00 122/70 06/28/23 20:58 37.0 C 83 18 111/68 97 O2 Del Method O2 Flow Rate 06/29/23 08:14 Nasal Cannula 2 06/29/23 07:05 Nasal Cannula 2 06/29/23 02:55 Nasal Cannula 2 06/29/23 00:30 06/28/23 23:30 Nasal Cannula 2 06/28/23 23:00 06/28/23 23:00 Nasal Cannula 2 06/28/23 22:03 Nasal Cannula 4 06/28/23 22:03 Nasal Cannula 4 06/28/23 22:00 06/28/23 21:53 06/28/23 21:45 06/28/23 21:30 06/28/23 21:15 06/28/23 21:00 06/28/23 21:00 06/28/23 20:58 Laboratory Results Laboratory Results - last 24 hr 06/28/23 06/28/23 06/28/23 18:00 18:01 18:10 WBC 4.54 L RBC 3.21 L Hgb 6.8 L* Hct 24.0 L MCV 74.8 L MCH 21.2 L MCHC 28.3 L RDW Std Deviation 48.5 H RDW Coeff of Julia 18.3 H Plt Count 285 MPV 9.9 Immature Gran % (Auto) 0.7 Neut % (Auto) 75.7 Lymph % (Auto) 11.7 [place] % (Auto) 11.5 Eos % (Auto) 0.0 Baso % (Auto) 0.4 Reticulocyte % (Auto) 2.56 H Neut # (Auto) 3.44 Lymph # (Auto) 0.53 L [place] # (Auto) 0.52 Eos # (Auto) 0.00 Baso # (Auto) 0.02 Reticulocyte # 0.080 Immature Gran # (Auto) 0.03 Absolute Nucleated RBC 0.02 Nucleated RBC % (auto) 0.4 Polychromasia 1+ Hypochromasia Present Tear Drop Cells 1+ Ovalocytes 1+ PT 11.9 INR 1.1 Sodium 139 Potassium 4.2 Chloride 105 Carbon Dioxide 27 Anion Gap 7 BUN 20 Creatinine 0.86 Est Cr Clr Drug Dosing 54.8 Est GFR ( Amer) 76.1 Est GFR (Non-Af Amer) 65.6 BUN/Creatinine Ratio 23.3 H Glucose 123 H Lactate Calcium 8.7 Magnesium 2.2 Iron 11 L Unsaturated IBC 515 H Transferrin 438 H Ferritin 3.8 L Total Bilirubin 0.4 AST 15 ALT 6 L Alkaline Phosphatase 68 Troponin I High Sens 80.4 H* B-Natriuretic Peptide 1031 H Total Protein 6.5 Albumin 3.8 Globulin 2.7 Albumin/Globulin Ratio 1.4 Lipase 9 L Procalcitonin Urine Color Urine Appearance Urine pH Ur Specific [place] Urine Protein Urine Glucose (UA) Urine Ketones Urine Blood Urine Nitrite Urine Bilirubin Urine Urobilinogen Ur Leukocyte Esterase Urine WBC (Auto) Urine RBC (Auto) U Hyaline Cast (Auto) U Epithel Cells (Auto) Urine Bacteria (Auto) Urine Yeast Adenovirus (PCR) Not Detected B. pertussis DNA (PCR) Not Detected B.parapertussis DNA PCR Not Detected C. pneumoniae DNA (PCR) Not Detected Coronavirus OC43 (PCR) Not Detected Coronavirus HKU1 (PCR) Not Detected Coronavirus 229E (PCR) Not Detected SARS-CoV-2 (PCR) Not Detected Coronavirus NL63 (PCR) Not Detected Human Metapneumovir PCR Not Detected Influenza Type A (PCR) Not Detected Influenza Type B (PCR) Not Detected M. pneumoniae (PCR) Not Detected Parainfluenza 1 (PCR) Not Detected Parainfluenza 2 (PCR) Not Detected Parainfluenza 3 (PCR) Not Detected Parainfluenza 4 (PCR) Not Detected RSV (PCR) Not Detected Entero/Rhino (PCR) Not Detected Blood Type Antibody Screen Crossmatch 06/28/23 06/28/23 06/28/23 19:45 20:49 Unknown WBC RBC Hgb Hct MCV MCH MCHC RDW Std Deviation RDW Coeff of Julia Plt Count MPV Immature Gran % (Auto) Neut % (Auto) Lymph % (Auto) [place] % (Auto) Eos % (Auto) Baso % (Auto) Reticulocyte % (Auto) Neut # (Auto) Lymph # (Auto) [place] # (Auto) Eos # (Auto) Baso # (Auto) Reticulocyte # Immature Gran # (Auto) Absolute Nucleated RBC Nucleated RBC % (auto) Polychromasia Hypochromasia Tear Drop Cells Ovalocytes PT INR Sodium Potassium Chloride Carbon Dioxide Anion Gap BUN Creatinine Est Cr Clr Drug Dosing Est GFR ( Amer) Est GFR (Non-Af Amer) BUN/Creatinine Ratio Glucose Lactate 0.9 Calcium Magnesium Iron Unsaturated IBC Transferrin Ferritin Total Bilirubin AST ALT Alkaline Phosphatase Troponin I High Sens 87.8 H* B-Natriuretic Peptide Total Protein Albumin Globulin Albumin/Globulin Ratio Lipase Procalcitonin < 0.05 Urine Color Yellow Urine Appearance Clear Urine pH 6.0 Ur Specific [place] 1.012 Urine Protein Trace H Urine Glucose (UA) Negative Urine Ketones Negative Urine Blood Negative Urine Nitrite Negative Urine Bilirubin Negative Urine Urobilinogen Negative Ur Leukocyte Esterase Negative Urine WBC (Auto) 1-5 Urine RBC (Auto) 0-4 U Hyaline Cast (Auto) 1-5 U Epithel Cells (Auto) >30 H Urine Bacteria (Auto) 1+ H Urine Yeast Not Reportable Adenovirus (PCR) B. pertussis DNA (PCR) B.parapertussis DNA PCR C. pneumoniae DNA (PCR) Coronavirus OC43 (PCR) Coronavirus HKU1 (PCR) Coronavirus 229E (PCR) SARS-CoV-2 (PCR) Coronavirus NL63 (PCR) Human Metapneumovir PCR Influenza Type A (PCR) Influenza Type B (PCR) M. pneumoniae (PCR) Parainfluenza 1 (PCR) Parainfluenza 2 (PCR) Parainfluenza 3 (PCR) Parainfluenza 4 (PCR) RSV (PCR) Entero/Rhino (PCR) Blood Type A Positive Antibody Screen NEGATIVE Crossmatch See Detail 06/29/23 02:35 WBC 5.00 RBC 3.36 L Hgb 7.6 L Hct 25.4 L MCV 75.6 L MCH 22.6 L MCHC 29.9 L RDW Std Deviation 51.3 H RDW Coeff of Julia 18.9 H Plt Count 258 MPV 10.2 Immature Gran % (Auto) Neut % (Auto) Lymph % (Auto) [place] % (Auto) Eos % (Auto) Baso % (Auto) Reticulocyte % (Auto) Neut # (Auto) Lymph # (Auto) [place] # (Auto) Eos # (Auto) Baso # (Auto) Reticulocyte # Immature Gran # (Auto) Absolute Nucleated RBC 0.03 Nucleated RBC % (auto) 0.6 Polychromasia Hypochromasia Tear Drop Cells Ovalocytes PT INR Sodium 140 Potassium 3.9 Chloride 102 Carbon Dioxide 31 Anion Gap 7 BUN 20 Creatinine 0.99 Est Cr Clr Drug Dosing 46.0 Est GFR ( Amer) 64.2 Est GFR (Non-Af Amer) 55.4 BUN/Creatinine Ratio 20.2 H Glucose 100 H Lactate Calcium 8.5 L Magnesium Iron Unsaturated IBC Transferrin Ferritin Total Bilirubin AST ALT Alkaline Phosphatase Troponin I High Sens 94.9 H* B-Natriuretic Peptide Total Protein Albumin Globulin Albumin/Globulin Ratio Lipase Procalcitonin Urine Color Urine Appearance Urine pH Ur Specific [place] Urine Protein Urine Glucose (UA) Urine Ketones Urine Blood Urine Nitrite Urine Bilirubin Urine Urobilinogen Ur Leukocyte Esterase Urine WBC (Auto) Urine RBC (Auto) U Hyaline Cast (Auto) U Epithel Cells (Auto) Urine Bacteria (Auto) Urine Yeast Adenovirus (PCR) B. pertussis DNA (PCR) B.parapertussis DNA PCR C. pneumoniae DNA (PCR) Coronavirus OC43 (PCR) Coronavirus HKU1 (PCR) Coronavirus 229E (PCR) SARS-CoV-2 (PCR) Coronavirus NL63 (PCR) Human Metapneumovir PCR Influenza Type A (PCR) Influenza Type B (PCR) M. pneumoniae (PCR) Parainfluenza 1 (PCR) Parainfluenza 2 (PCR) Parainfluenza 3 (PCR) Parainfluenza 4 (PCR) RSV (PCR) Entero/Rhino (PCR) Blood Type Antibody Screen Crossmatch Diagnostic Findings Exam(s): CT ABDOMEN + PELVIS With Contrast IV Amt: 82 ml optiray 320 EXAM: CT Abdomen and Pelvis With Intravenous Contrast CLINICAL HISTORY: Reason for exam: anemia, weakness, nausea. TECHNIQUE: Axial computed tomography images of the abdomen and pelvis with intravenous contrast. CTDI is 26.31 mGy and DLP is 1139 mGy-cm. Automated exposure control was utilized for the study. A dose lowering technique was utilized adhering to the principles of ALARA. CONTRAST: Patient received 82 ml optiray 320 of IV contrast COMPARISON: CT abdomen and pelvis January 12, 2023. FINDINGS: Lung bases: Unremarkable. No mass. No consolidation. ABDOMEN: Liver: Unremarkable. No mass. Gallbladder and bile ducts: Cholecystectomy. No ductal dilation. Pancreas: Unremarkable. No mass. No ductal dilation. Spleen: Unremarkable. No splenomegaly. Adrenals: Unremarkable. No mass. Kidneys and ureters: Nonobstructing 5 mm RIGHT mid pole renal calculus. Renal cysts. Stomach and bowel: Diverticulosis, without acute diverticulitis. No small bowel obstruction. No free intraperitoneal air. PELVIS: Appendix: No findings to suggest acute appendicitis. Bladder: Unremarkable. No mass. Reproductive: Unremarkable as visualized. ABDOMEN and PELVIS: Intraperitoneal space: Unremarkable. No free air. No significant fluid collection. Bones/joints: Degenerative changes of the spine. No acute fracture. No dislocation. Soft tissues: Unremarkable. Vasculature: Infrarenal abdominal aortic aneurysm, measures 3.0 cm. Atherosclerotic changes of the aorta. Lymph nodes: Unremarkable. No enlarged lymph nodes. Tubes, lines and devices: Pacemaker leads. IMPRESSION: 1. Infrarenal abdominal aortic aneurysm, measures 3.0 cm. 2. Cholecystectomy. 3. Nonobstructing 5 mm RIGHT mid pole renal calculus. 4. Diverticulosis, without acute diverticulitis. No small bowel obstruction. No free intraperitoneal air. Electronically signed by: Sukhdev Callahan MD 06/28/23 20:42 PM
[2023-06-29] MEDS: IRON SUCROSE 300 MG in SODIUM CHLORIDE 0.9% 250 ML IV ONE (11:16)
[2023-06-29] MEDS ORDERED: GLUCAGON FOR INJ 1 MG VIAL SQ PRN (12:33)
[2023-06-29] MEDS ORDERED: CARBOHYDRATES FOR HYPOGLYCEMIA PO PRN (12:33)
[2023-06-29] MEDS ORDERED: GLUCOSE 40% GEL 15 GM TUBE PO PRN (12:33)
[2023-06-29] MEDS ORDERED: GLUCOSE 10 TAB/TUBE PO PRN (12:33)
[2023-06-29] MEDS ORDERED: DEXTROSE 50% 50 ML SYRINGE IV PRN (12:33)
--- NOTE | 2023-06-29 14:19 | Hospitalist Progress Note ---
Date of Service June 29, 2023 Assessment & Plan (1) Symptomatic anemia: (2) Iron deficiency anemia: Plan: Patient 78-year-old female with PMH HTN, HLD, diet-controlled DM II, CKD III, CVA, CAD s/p stent, history of cardiomyopathy, s/p ICD, seizure disorder, paroxysmal atrial fibrillation, anticoagulated on Eliquis, history of DVT 09/2022, COPD, tobacco use, and others listed below presented to ER with complaint of generalized weakness x 1 week. Denies melena or hematochezia. Known iron deficiency anemia on outpatient labs in 02/2023. Symptomatic anemia Iron deficiency anemia Generalized weakness due to above Suspected occult GI bleed --CT ABD: Showed diverticulosis without acute diverticulitis. No small bowel obstruction. No free intraperitoneal air. S/P 1 unit PRBCs Advised to obtain EGD--patient refused Appreciate GI input Monitor H&H and transfuse as needed Continue PPI Advance diet as tolerated Received IV Venofer Patient would benefit from EGD, colonoscopy as outpatient if prefers Plan to resume Plavix, Eliquis if hemoglobin remains stable Will start on oral iron supplements on discharge (3) COPD exacerbation: (4) Acute hypoxic respiratory failure: Plan: Acute on chronic respiratory failure with hypoxia Chronic oxygen dependency--was prescribed 2 L: Patient currently not using as recommended Likely multifactorial secondary to COPD, CHF exacerbation --CXR: Cardiomegaly with pulmonary vascular congestion --Negative biofire respiratory panel. --Procalcitonin: <0.05 Currently no wheezing on exam Continue nebs and antibiotics Supplemental oxygen to keep sats 88 to 92% Will consider adding steroids if develops wheezing Abnormal CT Infrarenal abdominal aortic aneurysm 3 cm Nonobstructing 5 mm right renal calculus Incidental findings on CT Follow-up as outpatient (5) Ischemic cardiomyopathy: Plan: Acute on chronic diastolic heart failure--POA --CXR:Cardiomegaly with pulmonary vascular congestion. --ECHO pending --BNP elevated Monitor I's and O's, daily weight Received IV Lasix Continue home diuretics Will consider cardiology evaluation if needed Recheck BNP tomorrow (6) History of implantable cardioverter-defibrillator (ICD) placement: Plan: Monitor on telemetry Chronic troponin elevation Likely demand ischemia secondary to hypoxia, volume overload Denies any chest pain Echo pending (7) Elevated troponin: (8) CAD (coronary artery disease): Plan: History ischemic cardiomyopathy. S/P ICD. S/P Stent 01/08/2023 echo: EF: 65-70%, mild LVH Troponin: 80-->87. EKG paced rhythm. Denies CP. Possible demand ischemia Trend troponin Echo Continue metoprolol succinate, atorvastatin If uptrending troponins consider cardiology consult (9) Abnormal finding on urinalysis: Plan: Rule out UTI Urine culture pending Empirically on Rocephin (10) Paroxysmal atrial fibrillation: Plan: Anticoagulated on Eliquis Hold Eliquis with possible GI bleed Continue metoprolol succinate (11) HTN (hypertension): Plan: Stable Continue lisinopril, metoprolol succinate (12) Hyperlipidemia: Plan: Continue atorvastatin (13) History of CVA (cerebrovascular accident): Plan: Continue atorvastatin Resume Plavix as able (14) CKD (chronic kidney disease), stage III: Plan: Creatinine at baseline Monitor renal function Avoid nephrotoxic agents as able (15) Diabetes mellitus, type II: Plan: A1c: 5.8 on 03/02/2023 Diet controlled Monitor BGs Insulin sliding scale while hospitalized (16) Seizure disorder: Plan: Denies recent seizure-like activity Continue Keppra (17) History of DVT (deep vein thrombosis): Plan: History lower extremity DVT 09/2022 Resume Eliquis as able (18) Tobacco use: Plan: Ongoing tobacco use disorder Denies nicotine patch Encouraged smoking cessation DVT Px SCDs for now Code Status DNR/DNI Admission and Anticipated Discharge Date Admission Date: June 28, 2023 Subjective Patient is seen and examined at bedside States having generalized weakness Nausea resolved Shortness of breath much improved Admits to have some cough with yellowish expectoration Refused EGD today No obvious bleeding issues today Denies any chest pain, dizziness, abdominal pain, vomiting Review of Systems Review of Systems: All systems reviewed & are unremarkable except as noted in Subjective Physical Exam Physical Exam: Physical Exam: Vitals signs as noted above General Appearance:Moderately built and nourished, no apparent distress Head: normocephalic, Atraumatic Eyes: normal inspection, EOMI, +Pallor Neck: supple, Trachea midline Respiratory/Chest: Decreased breath sounds, CTA, No accessory muscle use Cardiovascular: S1, S2, No murmur,+Pacer Abdomen/GI:Soft, Non tender, Bowel sounds present Extremities/Musculoskeletal:normal inspection, 1+ Pedal edema Neurologic/Psych:AAOX3, grossly no focal neurological deficits Skin: normal color, warm Results & Data Results & Data Vital Signs (Past 12 Hours) Vital Signs Temp Pulse Resp BP Pulse Ox O2 Del Method O2 Flow Rate 06/29/23 12:26 81 18 114/73 97 Nasal Cannula 2 06/29/23 11:07 80 18 93 Room Air 06/29/23 08:14 36.8 C 86 18 122/60 97 Nasal Cannula 2 06/29/23 08:00 Nasal Cannula 2 06/29/23 07:05 84 18 99 Nasal Cannula 2 06/29/23 02:55 36.9 C 77 18 106/49 L 94 Nasal Cannula 2 Laboratory Results Short CBC 06/28/23 06/29/23 Range/Units 18:00 02:35 WBC 4.54 L 5.00 (4.8-10.8) K/ul Hgb 6.8 L* 7.6 L (12.0-16.0) g/dl Hct 24.0 L 25.4 L (37.0-47.0) % Plt Count 285 258 (130-400) K/uL BMP 06/28/23 06/29/23 18:00 02:35 Sodium 139 140 Potassium 4.2 3.9 Chloride 105 102 Carbon Dioxide 27 31 BUN 20 20 Creatinine 0.86 0.99 Glucose 123 H 100 H Calcium 8.7 8.5 L Liver Function 06/28/23 Range/Units 18:00 Total Bilirubin 0.4 (0.2-1.0) mg/dl AST 15 (13-39) U/L ALT 6 L (7-52) U/L Alkaline Phosphatase 68 (34-104) U/L Albumin 3.8 (3.4-5.0) gm/dl Urine 06/28/23 Range/Units Unknown Urine Color Yellow Urine Appearance Clear (Clear) Urine pH 6.0 (4.5-7.5) Ur Specific [place] 1.012 (1.000-1.030) Urine Protein Trace H (Negative) Urine Glucose (UA) Negative (Negative)
[2023-06-29 14:44] LABS: Hematocrit (blood only) 27.4 % (37.0-47.0)
[2023-06-29] MEDS: INSULIN ASPART PER UNIT CHARGE SC SCH (16:28)
[2023-06-29] MEDS: oxyCODONE HCL IR 5 MG TAB (IMMEDIATE RELEASE) PO PRN (20:04)
[2023-06-29] MEDS: traZODone HCL 50 MG TAB PO SCH (23:29)
[2023-06-30 05:08] LABS: Hematocrit (blood only) 25.7 % (37.0-47.0); Hemoglobin 7.3 g/dl (12.0-16.0); Mean Corpuscular Hemoglobin 22.1 pg (25.0-34.0); Mean Corpuscular Hgb Conc 28.4 g/dL (32.0-36.0); Mean Corpuscular Volume 77.6 fL (80.0-100.0); Nucleated RBC # (auto) 0.04 K/uL (0.00-0.12); Nucleated RBC % (auto) 0.7 %; Platelet Count 243 K/uL (130-400); Red Blood Count 3.31 M/uL (4.20-5.40); White Blood Count 5.75 K/ul (4.8-10.8)
[2023-06-30 05:28] LABS: BUN Creatinine Ratio 18.2 (10-20); Calcium 8.5 mg/dl (8.6-10.3); Est GFR (African American) 64.2 ml/min; Est GFR (Non-African American) 55.4 ml/min; Potassium 3.5 mmol/L (3.5-5.1)
--- NOTE | 2023-06-30 11:26 | Cardiology Consultation ---
Date of Consultation June 30, 2023 Assessment & Plan (1) Symptomatic anemia: (2) Elevated troponin: (3) Paroxysmal atrial fibrillation: (4) CAD (coronary artery disease): Plan Patient admitted for signs/symptoms of symptomatic anemia, possible GI bleed. Received 1 unit PRBC on admission with improvement in HBG. Unfortunately HBG trending lower this morning at 7.3 Recommend proceeding with 1 additional unit PRBC today. Message sent to hospitalist. Would recommend one dose IV lasix 20 mg post transfusion to maintain equal I+O's. Originally patient declined EGD/colonoscopy but now agreeable. Scopes to be arranged for Monday. GI notified. She has a long history of anemia/iron deficiency without prior evaluation. Minimally elevated troponin on admission due to demand ischemia in setting of underlying chronic CAD. No anginal complaints. EKG without acute ischemic changes Echo with preserved EF and evidence of old inferior WI, consistent with her history and prior imaging (nuclear study in 2020). Ongoing medical management recommended She has been on Plavix since CVA in 2022 (replaced ASA). Now on hold. Given history CVA, CAD and prior PCI - recommend resuming ASA 81 mg daily for now. She has high [id number] score of 8 and will likely need to resume future anticoagulation with Eliquis. Await EGD/colonoscopy. Hold Eliquis for now. No known recurrent afib on recent device checks. Continue metoprolol. She currently appears well compensated. Continue oral furosemide 40 mg daily. No further cardiac testing warranted prior to planned procedures on Monday. Case discussed with Dr. Healy I spent a total of 60 minutes on the date of service in preparation, delivery, and documentation of the care provided to this patient, excluding any time spent in the performance of separately billed services. Nikole Crenshaw PA-C Department of Cardiology, [facility] This chart was completed in part utilizing Speech Voice Recognition Software. Grammatical errors, random word insertions, pronoun errors, and incomplete sentences are an occasional consequence of this system due to software limitations, ambient noise, and hardware issues. Any formal questions or concerns about the content, text, or information contained within the body of this dictation should be directly addressed to the provider for clarification. Supervising Physician Co-Signing Physician Notes I have reviewed the advance practitioner's documentation, and I agree with, and take responsibility for the plan of care. 78-year-old female admitted with symptomatic anemia. Echocardiogram requested due to elevated high-sensitivity troponin. Denies any chest discomfort. Cough, wheezing, and shortness of breath noted on admission. No orthopnea, PND, or lower extremity edema. Denies signs/symptoms of GI/ blood loss. Eliquis and Plavix placed on hold. Complex history noted above. PE: VSS. Gen: NAD, AAO x3. Heart: Regular rhythm, normal S1-S2. No murmur appreciated. Lungs: Scattered rhonchi with expiratory wheezing. No rales. Extremities: No edema. A/P: 78-year-old female admitted with symptomatic anemia. Cardiology consultation requested due to abnormal echocardiogram demonstrating preserved LV systolic function with an abnormal septal motion basal inferior hypokinesis consistent with pacemaker activation. Inferior wall motion abnormality consistent with history of prior inferior myocardial infarction dating back to 2006. Basal inferior infarct noted on nuclear imaging in 2010. Patient currently without anginal symptoms. Clopidogrel and Eliquis remain on hold due to possible GI bleed and symptomatic anemia. Cautiously restart low-dose aspirin today. Further recommendations regarding antiplatelet, anticoagulation pending results of EGD/colonoscopy. Thank you for allow me to participate in care of your patient. History of Present Illness Reason for Consultation: Symptomatic anemia; abnormal Echo; CHF; history of Afib Requesting Physician: Dr. Freed Attending Physician: Dr. Healy History of Present Illness Patient is a 78 year old female who was admitted to [facility] with nausea, vomiting, weakness. Found to have possible GI bleed, symptomatic anemia, hbg of 6.8. While at home, patient had been vomiting dark substance. Patient thinks this was Oreo cookies, not blood. But family was concerned and brought her to the ER. Patient received 1 unit PRBC upon admission. Also treated with IV iron. Plavix and Eliquis held. GI consulted and recommend EGD/colonoscopy but patient declined initially. HS troponin minimally elevated (80-94), consistent with demand ischemia and similar to past admission. EKG non diagnostic with chronic ventricular pacing, but unchanged. No chest pain reported. Echo completed demonstrating preserved EF, evidence of old inferior WI (consistent with her history and prior imaging). Due to SOB and mild edema, she was initially treated with one dose IV lasix. Now improved. Back on oral diuretics. Also treated for COPD exacerbation. She reports her cough/wheezing has also improved. Currently in the room, she is feeling well. No recurrent nausea/vomiting. no hematochezia or melena. No chest pain. Cough/wheeze improved. She is now agreeable to proceeding with EGD/colonoscopy. Hbg dropped slightly this morning back to 7.3. She is known to [facility]. Complex history includes: ICM S/P inferior posterior WI 08/2006 S/P PCI to RCA and 4 BMS 12/2006 Apical thrombus - resolved LBBB BIV ICD 11/24/2008 gent change 08/06/2013 after the gent change the RV coil impedance was elevated and found to have the high voltage plug not in the port entirely so had a revision the next day; Gen change in November 2020 HTN HLD Chronic tobacco abuse Paroxysmal atrial fib DVT AAA COPD Chronic anemia CVA in 2022 - eliquis and plavix Allergies Allergy/AdvReac Type Severity Reaction Status Date / Time NSAIDS (Non-Steroidal AdvReac Severe GI ISSUES Verified 06/28/23 18:11 Anti-Inflamma Gybhwhj-CVB-NtG Reductase AdvReac Severe LIVER Verified 06/28/23 18:11 Inhibitor FUNCTION [Vkrsilj-Pkw-Sxr Reductase ELEVATES Inhibitor] isosorbide AdvReac Intermediate VOMIT/HEADA Verified 06/28/23 18:11 CARLOS tramadol AdvReac Intermediate VOMITING Verified 06/28/23 18:11 Home Medications Medication Instructions Recorded Confirmed Type nitroglycerin 0.4 mg sublingual 0.4 mg sublingual DIRECTED PRN 03/30/17 06/28/23 History tablet Chest Pain #0 BTLS pantoprazole 40 mg tablet,delayed 40 mg PO DAILYBB #30 tabs 03/30/17 06/28/23 History release oxycodone 5 mg tablet 5 mg PO Q6H PRN Severe Pain (Scale 08/16/20 06/28/23 History Score 7-10) atorvastatin 40 mg tablet 20 mg PO DAILY 10/05/22 06/28/23 History gabapentin 300 mg capsule See Rx Instructions .Route .COMPLEX 12/17/22 06/28/23 History ondansetron HCl 4 mg tablet 4 mg PO Q8H PRN Nausea 12/17/22 06/28/23 History umeclidinium 62.5 mcg-vilanterol 1 inh inhalation DAILY 12/17/22 06/28/23 History 25 mcg/actuation powdr for inhalation (Anoro Ellipta) apixaban 5 mg tablet (Eliquis) 5 mg PO BID #60 tabs 12/19/22 06/28/23 Rx clopidogrel 75 mg tablet 75 mg PO QAM #30 tabs 12/19/22 06/28/23 Rx levetiracetam 500 mg tablet 500 mg PO AMHS 01/11/23 06/28/23 History cyanocobalamin (vitamin B-12) 1,000 mcg PO QAM 06/28/23 06/28/23 History 1,000 mcg tablet (Vitamin B-12) furosemide 40 mg tablet See Rx Instructions .Route .COMPLEX 06/28/23 06/28/23 History lisinopril 20 mg tablet 20 mg PO QAM 06/28/23 06/28/23 History metoprolol succinate 25 mg 25 mg PO BID 06/28/23 06/28/23 History tablet,extended release 24 hr trazodone 50 mg tablet 25 mg PO HS 06/28/23 06/28/23 History Patient History Medical History History of DVT (deep vein thrombosis) Seizure disorder Paroxysmal atrial fibrillation Diabetes mellitus, type II History of CVA (cerebrovascular accident) Chronic pain Respiratory acidosis Elevated troponin Anxiety Chronic hepatitis C without hepatic coma CKD (chronic kidney disease), stage III COPD, group C, by GOLD 2017 classification Acute anterior wall WI LBBB (left bundle branch block) Migraine GERD (gastroesophageal reflux disease) OA (osteoarthritis) Hyperlipidemia HTN (hypertension) Ischemic cardiomyopathy CAD (coronary artery disease) "[place] 2006. S/P PCI/Stent RCA" Hypoxia H/O cardiac pacemaker Surgical History H/O release of tendon History of carpal tunnel surgery H/O: hysterectomy Hx of cataract surgery S/P cardiac cath S/P cholecystectomy History of implantable cardioverter-defibrillator (ICD) placement Family History Father , age 81 of lung cancer Prostate cancer Heart disease Thyroid disorder Lung cancer Mother , age 80 with COPD Cancer Cervical Coronary heart disease s/p CABG Diabetes COPD (chronic obstructive pulmonary disease) Social History Smoking Status: Current every day smoker Tobacco Type: Cigarettes Age Started Using Tobacco: 23; packs per day: 0.5; Cigarettes Per Day: 4; Second Hand Exposure: No; Do You Dip or Chew Tobacco: No; Hx Alcohol Use: No Hx Substance Use: No Preferred Language: Uzbek Communication Ability: Effective Physician Allergist Immunologist Required: No Beliefs That Will Affect Care: None Current Living Situation: Alone current occupational status: retired 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 Other Information That Helps Us Care for You: No Feels Safe at Home: Yes Safety Concerns: Feels Safe At This Time Assistive Devices: Oxygen - Continuous and Walker Review of Systems Review of Systems: All systems reviewed & are unremarkable except as noted in HPI & below Physical Exam Constitutional: WD/WN, vitals as above well nourished; no acute distress Respiratory: no respiratory distress and no labored breathing Auscultation: + diminished lung sounds and + wheezes Cardiovascular: Rate/Rhythm: regular rate and regular rhythm Heart Sounds: + murmur (I/ systolic murmur LSB) Vessels: no JVD Extremities: no edema Gastrointestinal (Abdomen): normal bowel sounds, soft, nontender, no hepatosplenomegaly Neurologic: PERRL, EOMI, accommodation nl, no face palsy, no dysarthria Results & Data Vital Signs (Past 12 Hours) Vital Signs Temp Pulse Resp BP Pulse Ox Pulse Ox O2 Del Method 06/30/23 08:00 92 06/30/23 08:00 Nasal Cannula 06/30/23 07:58 37 C 90 18 102/51 L 91 Nasal Cannula 06/30/23 07:07 86 17 Nasal Cannula 06/30/23 02:07 36.7 C 88 16 126/58 L 91 Nasal Cannula O2 Del Method O2 Flow Rate O2 Flow Rate 06/30/23 08:00 Nasal Cannula 2 06/30/23 08:00 2 06/30/23 07:58 2 06/30/23 07:07 2 06/30/23 02:07 2 Laboratory Results Cardiac Enzymes 06/30/23 Range/Units 04:08 B-Natriuretic Peptide 254 H (0-100) pg/ml Coagulation 06/30/23 Range/Units 04:08 B-Natriuretic Peptide 254 H (0-100) pg/ml CBC 06/29/23 06/30/23 Range/Units 14:18 04:08 WBC 5.75 (4.8-10.8) K/ul RBC 3.31 L (4.20-5.40) M/uL Hgb 8.0 L 7.3 L (12.0-16.0) g/dl Hct 27.4 L 25.7 L (37.0-47.0) % Plt Count 243 (130-400) K/uL Comprehensive Metabolic Panel 06/30/23 Range/Units 04:08 Sodium 140 (136-145) mmol/L Potassium 3.5 (3.5-5.1) mmol/L Chloride 100 (98-107) mmol/L Carbon Dioxide 33 H (21-32) mmol/L BUN 18 (6-23) mg/dl Creatinine 0.99 (0.6-1.2) mg/dl Glucose 94 (70-99(Fasting)) mg/dl Calcium 8.5 L (8.6-10.3) mg/dl Intake and Output 06/29/23 06/30/23 06/30/23 22:59 06:59 14:59 Intake Total 50 / 315 200 / 200 Output Total Balance 50 / 315 199 / 199 Intake: IV 50 / 315 cefTRIAXone SODIUM 2,000 mg In 50 / 50 Dextrose 5 % Mini-B 50 ml @ 100 mls/hr IV Q24H [facility] Rx#: [id number] Oral 200 / 200 Output: # Bowel Movements / Other: # Unmeasured Voids 1 1 Weight 72.1 kg 71.6 kg Weight Measurement Method Built in [facility] Diagnostic Findings Telemetry reviewed: Predominantly Atrial sensed, ventricular paced. Occ atrial sensed and ventricular sensed complex Echo report reviewed dated 06/29/23: LVEF 60-65% abnormal septal and apical wall motion reflects pacemaker activation Base inferior wall is hypokinetic Aortic valve sclerosis mild without significant mild AI Mild TR Estimated pulm pressure - 36 mmHg Diastolic dysfunction, Grade II EKG on admission: Atrial-sensed ventricular-paced rhythm No change from previous Chest xray on admission: Mild pulm vascular congestion Device interrogation reviewed from Mar 2023 - Appropriate function, battery longevity. No recent afib events. 0% atrial paced - 95% BIV paced Prior outpatient nuclear stress test in 12/2019: Interpretation Summary Lexiscan nuclear cardiac stress test is abnormal revealing myocardial scar in the inferior and inferoseptalwall(s). Abnormal gated SPECT imaging demonstrating basal inferior hypokinesis. The LV ejection fraction is calculated at 67%. Compared to prior stress test dated August 28, 2014, there is no significant change. Medications Administered Current Inpatient Medications Acetaminophen (Acetaminophen 325 Mg Tab) 650 mg PO Q4H PRN PRN Reason: Pain or Fever Stop: 07/28/23 22:02 Albuterol (Albut/Ipratrop 3mg/0.5mg Neb 3 Ml Vial) 3 ml NEB QIDR LISHA; Protocol Stop: 07/29/23 06:59 Last Admin: 06/30/23 10:27 Dose: 3 ml Atorvastatin Calcium (Atorvastatin 20 Mg Tab) 20 mg PO DAILY [facility] Stop: 07/29/23 08:59 Last Admin: 06/30/23 08:05 Dose: 20 mg Cyanocobalamin (Cyanocobalamin (B-12) 500 Mcg Tablet) 1,000 mcg PO QAM [facility] Stop: 07/29/23 08:59 Last Admin: 06/30/23 08:05 Dose: 1,000 mcg Dextrose (Dextrose 50% 50 Ml Syringe) 25 - 50 ml IV UD PRN; Protocol PRN Reason: Hypoglycemia Protocol Stop: 07/29/23 12:32 Furosemide (Furosemide 40 Mg Tab) 40 mg PO DAILY [facility] Stop: 07/29/23 08:59 Last Admin: 06/30/23 08:05 Dose: 40 mg Gabapentin (Gabapentin 300 Mg Cap) 300 mg PO 0900,1200 [facility] Stop: 07/29/23 08:59 Last Admin: 06/30/23 08:06 Dose: 300 mg Gabapentin (Gabapentin 300 Mg Cap) 600 mg PO HS [facility] Stop: 07/29/23 20:59 Last Admin: 06/29/23 19:59 Dose: 600 mg Glucagon (Glucagon For Inj 1 Mg Vial) 1 mg SQ UD PRN; Protocol PRN Reason: Hypoglycemia Protocol Stop: 07/29/23 12:32 Glucose (Glucose 10 Tab/Tube) 4 - 8 tab PO UD PRN; Protocol PRN Reason: Hypoglycemia Treatment Stop: 07/29/23 12:32 Glucose (Glucose 40% Gel 15 Gm Tube) 15 - 30 gm PO UD PRN; Protocol PRN Reason: Hypoglycemia Protocol Stop: 07/29/23 12:32 Pantoprazole Sodium 40 mg/ (Syringe) 10 mls @ 5 mls/min IV BID [facility] Stop: 07/28/23 22:59 Last Admin: 06/30/23 08:05 Dose: 5 mls/min Ceftriaxone Sodium 2,000 mg/ (Dextrose) 50 mls @ 100 mls/hr IV Q24H LISHA; Protoc ol Stop: 06/30/23 22:59 Last Infusion: 06/29/23 20:52 Dose: Infused Insulin Aspart (Insulin Aspart Per Unit Charge) 0 units SC ACHS [facility] Stop: 07/29/23 16:29 Last Admin: 06/30/23 08:04 Dose: Not Given Levetiracetam (Levetiracetam 500 Mg Tab) 500 mg PO AMHS [facility] Stop: 07/29/23 08:59 Last Admin: 06/30/23 08:05 Dose: 500 mg Lisinopril (Lisinopril 20 Mg Tab) 20 mg PO QAM [facility] Stop: 07/29/23 08:59 Last Admin: 06/30/23 08:05 Dose: 20 mg Metoprolol Succinate (Metoprolol Succ 25mg Ext Rel Tab) 25 mg PO BID [facility] Stop: 07/29/23 08:59 Last Admin: 06/30/23 08:05 Dose: 25 mg Miscellaneous (Carbohydrates For Hypoglycemia ) 15 - 30 gm PO UD PRN PRN Reason: Hypoglycemia Protocol Stop: 07/29/23 12:32 Oxycodone HCl (Oxycodone Hcl Ir 5 Mg Tab (Immediate Release)) 5 mg PO Q6H PRN PRN Reason: Severe Pain (Scale Score 7-10) Stop: 07/12/23 22:02 Last Admin: 06/30/23 08:05 Dose: 5 mg Polyethylene Glycol (Polyethylene (Miralax) 17 Gm Pack) 17 gm PO DAILY PRN PRN Reason: Constipation Stop: 07/28/23 22:02 Trazodone HCl (Trazodone Hcl 50 Mg Tab) 25 mg PO HS [facility] Stop: 07/29/23 20:59 Last Admin: 06/29/23 23:29 Dose: 25 mg Umeclidinium/Vilanterol (Umeclidinium/Vilanterol 62.5/25mcg 7 Puffs/Inhaler) 1 puffs INH DAILY [facility] Stop: 07/29/23 08:59 Last Admin: 06/30/23 08:15 Dose: 1 puffs
[2023-06-30] MEDS ORDERED: SODIUM CHLORIDE 0.9% 250 ML IV PRN (12:16)
--- NOTE | 2023-06-30 12:37 | Communication Note ---
Date of Service: June 30, 2023 Pt's Hgb 8->7.3 this AM. She isn't having melena or BRBPR. Hemodynamically stable. She is agreeable to endoscopic eval for anemia workup now. Cardiology also recommend EGD/Colonoscopy done in house to determine if Eliquis could be restarted safely. Will schedule EGD and colonoscopy by Dr. Queenie Gonzalez on 07/03/2023. CL diet 07/02; NPO after midnight: 07/03 0001. Bowel prep ordered
[2023-06-30] MEDS: ASPIRIN 81 MG ECTAB PO SCH (13:29)
[2023-06-30] MEDS: NICOTINE 21 MG/24 HR TDSY TD SCH (15:12)
--- NOTE | 2023-06-30 15:12 | Electrocardiogram Report ---
Test Reason : Blood Pressure : / mmHG Vent. Rate : 079 BPM Atrial Rate : 079 BPM P-R Int : 120 ms QRS Dur : 140 ms QT Int : 432 ms P-R-T Axes : 062 -69 077 degrees QTc Int : 495 ms Poor data quality, interpretation may be adversely affected Atrial-sensed ventricular-paced rhythm Biventricular pacemaker detected Abnormal ECG When compared with ECG of 28-JUN-2023 18:09, Vent. rate has decreased BY 10 BPM Confirmed by Rudolph Lerma ([id number]) on 06/30/2023 3:12:18 PM Referred By: REFERRED SELF Confirmed By:Rudolph Lerma
--- NOTE | 2023-06-30 16:26 | Hospitalist Progress Note ---
Date of Service June 30, 2023 Assessment & Plan (1) Symptomatic anemia: (2) Iron deficiency anemia: Plan: Patient 78-year-old female with PMH HTN, HLD, diet-controlled DM II, CKD III, CVA, CAD s/p stent, history of cardiomyopathy, s/p ICD, seizure disorder, paroxysmal atrial fibrillation, anticoagulated on Eliquis, history of DVT 09/2022, COPD, tobacco use, and others listed below presented to ER with complaint of generalized weakness x 1 week. Denies melena or hematochezia. Known iron deficiency anemia on outpatient labs in 02/2023. Symptomatic anemia Iron deficiency anemia Generalized weakness due to above Suspected occult GI bleed --CT ABD: Showed diverticulosis without acute diverticulitis. No small bowel obstruction. No free intraperitoneal air. S/P 1 unit PRBCs Advised to obtain EGD--patient refused initially but currently agrees to proceed Appreciate GI input Monitor H&H and transfuse as needed Continue PPI Advance diet as tolerated Received IV Venofer Plavix, Eliquis held for now (started on aspirin 81 mg daily for now per cardio logy) Will transfuse 1 unit PRBC today Plan for EGD colonoscopy on Monday Monitor CBC--Hb 7.3 today Will give a dose of Lasix 20 mg after blood transfusion today Will consider giving IV Venofer tomorrow (3) COPD exacerbation: (4) Acute hypoxic respiratory failure: Plan: Acute on chronic respiratory failure with hypoxia Chronic oxygen dependency--was prescribed 2 L: Patient currently not using as recommended Likely multifactorial secondary to COPD, CHF exacerbation --CXR: Cardiomegaly with pulmonary vascular congestion --Negative biofire respiratory panel. --Procalcitonin: <0.05 Currently no wheezing on exam Continue nebs and antibiotics Supplemental oxygen to keep sats 88 to 92% Will consider adding steroids if develops wheezing Titrate oxygen as able Abnormal CT Infrarenal abdominal aortic aneurysm 3 cm Nonobstructing 5 mm right renal calculus Incidental findings on CT Follow-up as outpatient (5) Ischemic cardiomyopathy: Plan: Acute on chronic diastolic heart failure--POA --CXR:Cardiomegaly with pulmonary vascular congestion. --ECHO: EF 60 to 65%. Abnormal septal, apical wall motion reflects pacemaker activation. Basal inferior wall is hypokinetic. Mild aortic valve sclerosis. Mild aortic regurgitation. Trace mitral, tricuspid regurgitation. Estimated systolic pulmonary pressure 36 mmHg. Grade 2 diastolic dysfunction --BNP improved after IV Lasix Monitor I's and O's, daily weight Received IV Lasix Continue home diuretics Appreciate cardiology input Monitor volume status closely (6) History of implantable cardioverter-defibrillator (ICD) placement: Plan: Monitor on telemetry Chronic troponin elevation Likely demand ischemia secondary to hypoxia, volume overload Denies any chest pain Echo as above (7) Elevated troponin: (8) CAD (coronary artery disease): Plan: History ischemic cardiomyopathy. S/P ICD. S/P Stent 01/08/2023 echo: EF: 65-70%, mild LVH Troponin: 80-->87. EKG paced rhythm. Denies CP. Possible demand ischemia Trend troponin Echo as above Continue metoprolol succinate, atorvastatin Added aspirin 81 mg daily for now while Plavix held (9) Abnormal finding on urinalysis: Plan: Rule out UTI Urine culture negative Empirically received Rocephin (10) Paroxysmal atrial fibrillation: Plan: Anticoagulated on Eliquis Hold Eliquis with possible GI bleed Continue metoprolol succinate (11) HTN (hypertension): Plan: Stable Continue lisinopril, metoprolol succinate (12) Hyperlipidemia: Plan: Continue atorvastatin (13) History of CVA (cerebrovascular accident): Plan: Continue atorvastatin Resume Plavix as able (14) CKD (chronic kidney disease), stage III: Plan: Creatinine at baseline Monitor renal function Avoid nephrotoxic agents as able (15) Diabetes mellitus, type II: Plan: A1c: 5.8 on 03/02/2023 Diet controlled Monitor BGs Insulin sliding scale while hospitalized (16) Seizure disorder: Plan: Denies recent seizure-like activity Continue Keppra (17) History of DVT (deep vein thrombosis): Plan: History lower extremity DVT 09/2022 Resume Eliquis as able (18) Tobacco use: Plan: Ongoing tobacco use disorder Started on nicotine patch Encouraged smoking cessation DVT Px SCDs for now Code Status DNR/DNI Admission and Anticipated Discharge Date Admission Date: June 28, 2023 Subjective Patient is seen and examined at bedside Noted drop in Hb with no obvious bleeding source Discussed with cardiology and GI today Updated patient's daughter over the phone Reports minimal cough Sitting in chair during my encounter No significant dyspnea today Denies any chest pain, dizziness, abdominal pain, vomiting Review of Systems Review of Systems: All systems reviewed & are unremarkable except as noted in Subjective Physical Exam Physical Exam: Physical Exam: Vitals signs as noted above General Appearance:Moderately built and nourished, no apparent distress Head: normocephalic, Atraumatic Eyes: normal inspection, EOMI, +Pallor Neck: supple, Trachea midline Respiratory/Chest: Decreased breath sounds, CTA, No accessory muscle use Cardiovascular: S1, S2, No murmur,+Pacer Abdomen/GI:Soft, Non tender, Bowel sounds present Extremities/Musculoskeletal:normal inspection, 1+ Pedal edema Neurologic/Psych:AAOX3, grossly no focal neurological deficits Skin: normal color, warm Results & Data Results & Data Vital Signs (Past 12 Hours) Vital Signs Temp Pulse Pulse Resp BP BP Pulse Ox 06/30/23 15:34 74 16 95 06/30/23 14:57 37 C 72 20 112/60 92 06/30/23 14:27 36.9 C 73 20 124/73 92 06/30/23 14:12 36.6 C 73 20 115/54 L 91 06/30/23 13:46 36.7 C 70 18 119/71 90 06/30/23 12:34 36.7 C 06/30/23 12:20 81 18 06/30/23 12:20 115/77 95 06/30/23 12:00 85 19 06/30/23 11:00 79 21 06/30/23 10:30 18 95 06/30/23 08:00 06/30/23 08:00 06/30/23 07:58 37 C 90 18 102/51 L 91 06/30/23 07:07 86 17 Pulse Ox O2 Del Method O2 Del Method O2 Flow Rate O2 Flow Rate 06/30/23 15:34 Nasal Cannula 2 06/30/23 14:57 2 06/30/23 14:27 2 06/30/23 14:12 2 06/30/23 13:46 2 06/30/23 12:34 06/30/23 12:20 06/30/23 12:20 Nasal Cannula 2 06/30/23 12:00 06/30/23 11:00 06/30/23 10:30 Nasal Cannula 2 06/30/23 08:00 92 Nasal Cannula 2 06/30/23 08:00 Nasal Cannula 2 06/30/23 07:58 Nasal Cannula 2 06/30/23 07:07 Nasal Cannula 2 Laboratory Results Short CBC 06/30/23 Range/Units 04:08 WBC 5.75 (4.8-10.8) K/ul Hgb 7.3 L (12.0-16.0) g/dl Hct 25.7 L (37.0-47.0) % Plt Count 243 (130-400) K/uL BMP 06/30/23 04:08 Sodium 140 Potassium 3.5 Chloride 100 Carbon Dioxide 33 H BUN 18 Creatinine 0.99 Glucose 94 Calcium 8.5 L
[2023-06-30] MEDS: FUROSEMIDE INJ 20 MG/2 ML VIAL IV ONE (17:21)
[2023-06-30 20:31] LABS: Hematocrit (blood only) 31.7 % (37.0-47.0); Hemoglobin 9.2 g/dl (12.0-16.0)
[2023-07-01 04:26] LABS: Hematocrit (blood only) 30.8 % (37.0-47.0); Hemoglobin 9.1 g/dl (12.0-16.0); Mean Corpuscular Hemoglobin 23.4 pg (25.0-34.0); Mean Corpuscular Hgb Conc 29.5 g/dL (32.0-36.0); Mean Corpuscular Volume 79.2 fL (80.0-100.0); Mean Platelet Volume 9.9 fL (9.4-12.4); Nucleated RBC # (auto) 0.02 K/uL (0.00-0.12); Nucleated RBC % (auto) 0.3 %; Platelet Count 240 K/uL (130-400); RDW Coefficient of Variation 19.8 % (11.5-14.5); RDW Standard Deviation 55.2 fL (36.4-46.3); Red Blood Count 3.89 M/uL (4.20-5.40); White Blood Count 5.96 K/ul (4.8-10.8)
[2023-07-01 04:32] LABS: BUN Creatinine Ratio 18.8 (10-20); Calcium 8.7 mg/dl (8.6-10.3); Creatinine Clr Calc Pharmacy 38.4 ml/min; Est GFR (African American) 52.4 ml/min; Est GFR (Non-African American) 45.2 ml/min; Potassium 3.8 mmol/L (3.5-5.1)
--- NOTE | 2023-07-01 09:12 | Cardiology Progress Note ---
Date of Service July 01, 2023 Assessment & Plan (1) Symptomatic anemia: (2) Paroxysmal atrial fibrillation: (3) History of CVA (cerebrovascular accident): (4) Iron deficiency anemia: (5) History of implantable cardioverter-defibrillator (ICD) placement: (6) Ischemic cardiomyopathy: (7) Chronic congestive heart failure: (8) Tobacco use: Plan Symptomatic anemia. Status post transfusion of 2 units PRBCs. Eliquis and clopidogrel on hold, currently prescribed low-dose aspirin 81 mg/day. H&H relatively stable this morning. EGD and colonoscopy scheduled for Monday, July 03, 2023 ASCVD, inferoposterior PA in August 2006, ischemic cardiomyopathy with prior apical thrombus, chronic left bundle branch block, status post biventricular pacemaker defibrillator implantation. EF 60-65% on 06/29/2023. Volume status: Normovolemic. Elevated troponin, demand ischemia secondary to the above. Patient asymptomatic in regards to angina. EKG without acute change. Echo with preserved systolic function, evidence of the old inferior PA. Continue medical management. Wide-complex tachycardia. Asymptomatic. Supplement potassium. Check magnesium and replace as needed. Increase metoprolol succinate to 50 mg twice per day. Decrease lisinopril dosing from 20 mg/day to 10 mg/day. Paroxysmal atrial fibrillation. Eliquis on hold; to be resumed when determined to be safe. COPD. Abstaining x 6 days. Ongoing cessation encouraged. Admission and Anticipated Discharge Date Admission Date: June 28, 2023 Supervising Physician Co-Signing Physician Notes I have reviewed the advance practitioner's documentation, and I agree with, and take responsibility for the plan of care. 78-year-old female admitted with symptomatic anemia. Feeling well today without complaints. 2D echocardiogram performed 06/29/2023 demonstrated preserved LV systolic function with basal inferior hypokinesis. Denies any chest discomfort. Cough, wheezing, and shortness of breath noted on admission. No orthopnea, PND, or lower extremity edema. Denies signs/symptoms of GI/ blood loss. Eliquis and Plavix placed on hold. Wide-complex tachycardia on telemetry overnight. PE: VSS. Gen: NAD, AAO x3. Heart: Regular rhythm, normal S1-S2. No murmur appreciated. Lungs: Scattered rhonchi with expiratory wheezing. No rales. Extremities: No edema. A/P: 78-year-old female admitted with symptomatic anemia. Wide-complex tachycardia recorded on telemetry. Repeat echocardiogram demonstrating preserved LV systolic function. Titrate metoprolol with concomitant reduction of BREANNE inhibitor as noted above. Replace electrolyte as indicated. Proceed with EGD/colonoscopy Monday as scheduled. Continue low-dose aspirin. Subjective Patient seen and examined. Chart, medications, and telemetry reviewed. Feeling okay. No chest pain. No palpitations. Breathing at baseline . Cough productive of phlegm, without hemoptysis, fevers, or chills. Cigarettes x 6 days. Denies melena or hematochezia prior to arrival. No bowel movement since admission. Telemetry over the last 24 hours reviewed. Short runs of wide-complex tachycardia earlier this morning, asymptomatic. Review of Systems Review of Systems: Complete review of systems is otherwise as stated above, negative, noncontributory Physical Exam Physical Exam: General: A&Ox3. NAD. HENT: Normocephalic. Atraumatic. Eyes: PER. Conjunctiva pink, sclera pale. Neck: Bilateral carotid bruits. No JVD Heart: RRR, 84 bpm. Soft systolic murmur. No rub. Lungs: Diminished. Decreased. Scattered rhonchi that improved post cough. No current wheeze. Abdomen: +BS. Soft. Nontender. No masses or organomegaly. Extremities: No clubbing, cyanosis, or significant edema. Limited neurological examination is without focal deficits. Pulses: radial=2/4, posterior tibial=1-2/4. Results & Data Vital Signs (Past 12 Hours) Vital Signs Temp Pulse Pulse Resp BP BP Pulse Ox 07/01/23 07:41 36.8 C 77 18 127/59 L 94 07/01/23 07:13 65 16 91 07/01/23 03:33 36.8 C 07/01/23 03:30 125/55 L 07/01/23 03:30 70 24 92 06/30/23 23:47 36.6 C 06/30/23 23:41 119/65 06/30/23 23:41 77 22 90 06/30/23 23:09 81 O2 Del Method O2 Flow Rate 07/01/23 07:41 Nasal Cannula 4 07/01/23 07:13 Nasal Cannula 2 07/01/23 03:33 07/01/23 03:30 07/01/23 03:30 Nasal Cannula 3 06/30/23 23:47 06/30/23 23:41 06/30/23 23:41 Nasal Cannula 3 06/30/23 23:09 Laboratory Results CBC 06/30/23 07/01/23 Range/Units 20:04 03:41 WBC 5.96 (4.8-10.8) K/ul RBC 3.89 L (4.20-5.40) M/uL Hgb 9.2 L 9.1 L (12.0-16.0) g/dl Hct 31.7 L 30.8 L (37.0-47.0) % Plt Count 240 (130-400) K/uL Comprehensive Metabolic Panel 07/01/23 Range/Units 03:41 Sodium 138 (136-145) mmol/L Potassium 3.8 (3.5-5.1) mmol/L Chloride 98 (98-107) mmol/L Carbon Dioxide 34 H (21-32) mmol/L BUN 22 (6-23) mg/dl Creatinine 1.17 (0.6-1.2) mg/dl Glucose 105 H (70-99(Fasting)) mg/dl Calcium 8.7 (8.6-10.3) mg/dl Intake and Output 06/30/23 07/01/23 07/01/23 22:59 06:59 14:59 Intake Total 660 / 1110 250 / 1110 Output Total 300 / 301 Balance 360 / 809 250 / 809 Intake: Oral 350 / 800 250 / 800 Intake (Blood Product) Amt 310 / 310 Packed Cells, Leukoreduced 310 / 310 Unit [id number] Output: Urine 200 / 200 Urine Amount (Catheter) 100 / 100 External 100 / 100 Other: # Unmeasured Voids 1 Weight 70.1 kg Weight Measurement Method Built in [facility] Diagnostic Findings Device interrogation on April 18, 2023 personally reviewed. 2.4 years remaining longevity. Lower rate set at 50 bpm. Time in AT/AF: Less than 0.1%. BiV paced 94%. Elevated OptiVol.
[2023-07-01] MEDS: IRON SUCROSE 300 MG in SODIUM CHLORIDE 0.9% 250 ML IV ONE (10:21)
[2023-07-01] MEDS: POTASSIUM CHLORIDE 10 MEQ TABCR PO ONE (10:21)
[2023-07-01] MEDS: DOXYCYCLINE HYCLATE 100 MG CAP PO SCH (11:55)
--- NOTE | 2023-07-01 13:23 | Hospitalist Progress Note ---
Date of Service July 01, 2023 Assessment & Plan (1) Symptomatic anemia: (2) Iron deficiency anemia: Plan: Patient 78-year-old female with PMH HTN, HLD, diet-controlled DM II, CKD III, CVA, CAD s/p stent, history of cardiomyopathy, s/p ICD, seizure disorder, paroxysmal atrial fibrillation, anticoagulated on Eliquis, history of DVT 09/2022, COPD, tobacco use, and others listed below presented to ER with complaint of generalized weakness x 1 week. Denies melena or hematochezia. Known iron deficiency anemia on outpatient labs in 02/2023. Symptomatic anemia Iron deficiency anemia Generalized weakness due to above Suspected occult GI bleed --CT ABD: Showed diverticulosis without acute diverticulitis. No small bowel obstruction. No free intraperitoneal air. S/P 2 unit PRBCs S/P IV Venofer X 2 Advised to obtain EGD--patient refused initially but currently agrees to proceed Appreciate GI input Monitor H&H and transfuse as needed Continue PPI Received IV Venofer today Plavix, Eliquis held for now (started on aspirin 81 mg daily for now per card iology) Plan for EGD colonoscopy on Monday Hb 9.1 today No acute bleeding issues (3) COPD exacerbation: (4) Acute hypoxic respiratory failure: Plan: Acute on chronic respiratory failure with hypoxia Chronic oxygen dependency--was prescribed 2 L: Patient currently not using as recommended Likely multifactorial secondary to COPD, CHF exacerbation --CXR: Cardiomegaly with pulmonary vascular congestion --Negative biofire respiratory panel. --Procalcitonin: <0.05 Currently no wheezing on exam Continue nebs and doxycycline Supplemental oxygen to keep sats 88 to 92% Will consider adding steroids if develops wheezing Titrate oxygen as able Wide-complex tachycardia H/O P.Afib Asymptomatic Metoprolol dose increased to 50 mg twice a day Abnormal CT Infrarenal abdominal aortic aneurysm 3 cm Nonobstructing 5 mm right renal calculus Incidental findings on CT Follow-up as outpatient (5) Ischemic cardiomyopathy: Plan: Acute on chronic diastolic heart failure--POA --CXR:Cardiomegaly with pulmonary vascular congestion. --ECHO: EF 60 to 65%. Abnormal septal, apical wall motion reflects pacemaker activation. Basal inferior wall is hypokinetic. Mild aortic valve sclerosis. Mild aortic regurgitation. Trace mitral, tricuspid regurgitation. Estimated systolic pulmonary pressure 36 mmHg. Grade 2 diastolic dysfunction --BNP improved after IV Lasix Monitor I's and O's, daily weight Received IV Lasix Continue home diuretics Appreciate cardiology input Monitor volume status closely (6) History of implantable cardioverter-defibrillator (ICD) placement: Plan: Monitor on telemetry Chronic troponin elevation Likely demand ischemia secondary to hypoxia, volume overload Denies any chest pain Echo as above (7) Elevated troponin: (8) CAD (coronary artery disease): Plan: History ischemic cardiomyopathy. S/P ICD. S/P Stent 01/08/2023 echo: EF: 65-70%, mild LVH Troponin: 80-->87. EKG paced rhythm. Denies CP. Possible demand ischemia Trend troponin Echo as above Continue metoprolol succinate, atorvastatin Added aspirin 81 mg daily for now while Plavix held (9) Abnormal finding on urinalysis: Plan: Ruled out UTI Urine culture negative Empirically received Rocephin (10) Paroxysmal atrial fibrillation: Plan: Anticoagulated on Eliquis Hold Eliquis with possible GI bleed Continue metoprolol succinate (11) HTN (hypertension): Plan: Stable Continue lisinopril, metoprolol succinate Lisinopril dose decreased to 10 mg daily Metoprolol dose adjusted as above (12) Hyperlipidemia: Plan: Continue atorvastatin (13) History of CVA (cerebrovascular accident): Plan: Continue atorvastatin Resume Plavix as able (14) CKD (chronic kidney disease), stage III: Plan: Creatinine at baseline Monitor renal function Avoid nephrotoxic agents as able (15) Diabetes mellitus, type II: Plan: A1c: 5.8 on 03/02/2023 Diet controlled Monitor BGs Insulin sliding scale while hospitalized (16) Seizure disorder: Plan: Denies recent seizure-like activity Continue Keppra (17) History of DVT (deep vein thrombosis): Plan: History lower extremity DVT 09/2022 Resume Eliquis as able (18) Tobacco use: Plan: Ongoing tobacco use disorder Continue nicotine patch Encouraged smoking cessation DVT Px SCDs for now Code Status DNR/DNI Admission and Anticipated Discharge Date Admission Date: June 28, 2023 Subjective Patient is seen and examined at bedside Reports chronic lower back pain Cough much improved No bleeding issues Denies any chest pain, dyspnea, dizziness, abdominal pain, vomiting Hb stable Review of Systems Review of Systems: All systems reviewed & are unremarkable except as noted in Subjective Physical Exam Physical Exam: Physical Exam: Vitals signs as noted above General Appearance:Moderately built and nourished, no apparent distress Head: normocephalic, Atraumatic Eyes: normal inspection, EOMI, +Pallor Neck: supple, Trachea midline Respiratory/Chest: Decreased breath sounds, CTA, No accessory muscle use Cardiovascular: S1, S2, No murmur,+Pacer Abdomen/GI:Soft, Non tender, Bowel sounds present Extremities/Musculoskeletal:normal inspection, 1+ Pedal edema Neurologic/Psych:AAOX3, grossly no focal neurological deficits Skin: normal color, warm Results & Data Results & Data Vital Signs (Past 12 Hours) Vital Signs Temp Pulse Pulse Resp BP BP Pulse Ox 07/01/23 11:58 70 16 96 07/01/23 11:24 36.7 C 70 22 115/51 L 90 07/01/23 08:00 07/01/23 08:00 07/01/23 07:41 36.8 C 77 18 127/59 L 94 07/01/23 07:13 65 16 91 07/01/23 03:33 36.8 C 07/01/23 03:30 125/55 L 07/01/23 03:30 70 24 92 O2 Del Method O2 Del Method O2 Flow Rate 07/01/23 11:58 Nasal Cannula 3 07/01/23 11:24 Nasal Cannula 3 07/01/23 08:00 Nasal Cannula 3 07/01/23 08:00 Nasal Cannula 07/01/23 07:41 Nasal Cannula 4 07/01/23 07:13 Nasal Cannula 2 07/01/23 03:33 07/01/23 03:30 07/01/23 03:30 Nasal Cannula 3 Laboratory Results Short CBC 06/30/23 07/01/23 Range/Units 20:04 03:41 WBC 5.96 (4.8-10.8) K/ul Hgb 9.2 L 9.1 L (12.0-16.0) g/dl Hct 31.7 L 30.8 L (37.0-47.0) % Plt Count 240 (130-400) K/uL BMP 07/01/23 03:41 Sodium 138 Potassium 3.8 Chloride 98 Carbon Dioxide 34 H BUN 22 Creatinine 1.17 Glucose 105 H Calcium 8.7
--- NOTE | 2023-07-01 16:02 | XRay Report ---
LUMBAR SPINE 3 VIEWS CLINICAL HISTORY: Low back pain. FINDINGS: 3 views of the lumbar spine are correlated with abdominal CT dated 06/28/2023. The skeletal s tructures are osteopenic. There is no radiographic evidence of fracture or malalignment involving the lumbar spine. Vertebral body height and alignment are maintained. Anterior and lateral marginal oste ophytes are seen throughout. The transverse and spinous processes appear intact. Facet arthropathy is noted in the lower lumbar region. There is moderate disc space narrowing at L3-L4. Mild narrowing is seen at the remaining lumbar levels. The visualized bony pelvis appears intact. Sclerotic change is noted in the sacroiliac joints. Cholecystectomy clips are identified in the right upper quadrant. The re is advanced atherosclerotic calcification of the abdominal aorta. There is a small infrarenal abdo solomon aneurysm, which was better assessed on the recent CT scan. No bowel obstruction is seen. Phlebo liths are noted in the pelvis. The heart is enlarged and pacemaker leads are partially imaged. IMPRESSION: 1. No acute bony abnormality is identified involving the lumbar spine. 2. Osteopenia and mild spondylotic change as above. Dictated: 07/01/2023 3:39 PM Transcribed: 07/01/2023 3:58 PM Jakub [id number] [email or web address] Electronically signed by: Saeed Guallpa M.D. 07/01/2023 4:00 PM
[2023-07-01] MEDS: METOPROLOL SUCC 50MG EXT REL TAB PO SCH (20:25)
[2023-07-02] MEDS: lisinopril 10 MG TAB PO SCH (08:29)
--- NOTE | 2023-07-02 10:42 | Cardiology Progress Note ---
Date of Service July 02, 2023 Assessment & Plan (1) Symptomatic anemia: (2) Paroxysmal atrial fibrillation: (3) History of CVA (cerebrovascular accident): (4) Iron deficiency anemia: (5) History of implantable cardioverter-defibrillator (ICD) placement: (6) Ischemic cardiomyopathy: (7) Chronic congestive heart failure: (8) Tobacco use: Plan Symptomatic anemia, iron deficiency. Status post transfusion of 2 units PRBCs. Eliquis and clopidogrel on hold, currently prescribed low-dose aspirin 81 mg/day. CBC requested. EGD and colonoscopy scheduled for Monday, July 03, 2023. Possible results discussed, including clinical concern for malignancy ASCVD, inferoposterior IA in August 2006, ischemic cardiomyopathy with prior apical thrombus, chronic left bundle branch block, status post biventricular pacemaker defibrillator implantation. EF 60-65% on 06/29/2023. Volume status: Normovolemic. Elevated troponin, demand ischemia secondary to the above. Patient asymptomatic. EKG without acute change. Echo with preserved systolic function, evidence of the old inferior IA. Continue medical management. Transient tachycardia in a.m of 2/10. Asymptomatic. Potassium supplemented. Magnesium ok. LVEF preserved. Device in place. Metoprolol succinate increased to 50 mg twice per day, concurrently decreasing lisinopril to 10 mg/day. Paroxysmal atrial fibrillation. Eliquis on hold; to be resumed when determined to be safe. Admission and Anticipated Discharge Date Admission Date: June 28, 2023 Supervising Physician Co-Signing Physician Notes I have reviewed the advance practitioner's documentation, and I agree with, and take responsibility for the plan of care. 78-year-old female admitted with symptomatic anemia. Transfused 2 units packed red blood cells during hospitalization. Feeling well today without complaints. 2D echocardiogram performed 06/29/2023 demonstrated preserved LV systolic function with basal inferior hypokinesis. Denies any chest discomfort. Respiratory status improved today with less cough and wheezing. No orthopnea, PND, or lower extremity edema. Denies signs/symptoms of GI/ blood loss. Eliquis and Plavix placed on hold. Sinus rhythm on telemetry overnight. PE: VSS. Gen: NAD, AAO x3. Heart: Regular rhythm, normal S1-S2. No murmur appreciated. Lungs: No rales, rhonchi, wheeze. Extremities: No edema. A/P: 78-year-old female admitted with symptomatic anemia. Telemetry stable overnight. BREANNE inhibitor reduced with concomitant titration of beta-ann-marie 07/01/2023. Replace electrolyte as indicated. Proceed with EGD/colonoscopy Monday as scheduled. Continue low-dose aspirin. Further recommendations regarding antiplatelet/anticoagulation pending review of EGD/colonoscopy. Subjective Patient seen and examined. Chart, medications, and telemetry reviewed. Feeling okay. No chest pain. No palpitations. Breathing is at baseline. Cough productive of phlegm, without hemoptysis, fevers, or chills. Tobacco free x 7 days, utilizing nicotine patch which she would like to continue postdischarge. Telemetry reviewed: Paced 60s to 80s. Review of Systems Review of Systems: Complete review of systems is otherwise as stated above, negative, noncontributory Physical Exam Physical Exam: General: A&Ox3. NAD. HENT: Normocephalic. Atraumatic. Eyes: PER. Conjunctiva pink, sclera pale. Neck: Bilateral carotid bruits. No JVD Heart: RRR, 84 bpm. Soft systolic murmur. No rub. Lungs: Diminished. Decreased. Scattered rhonchi that improved post cough. No current wheeze. Abdomen: +BS. Soft. Nontender. No masses or organomegaly. Extremities: No clubbing, cyanosis, or significant edema. Limited neurological examination is without focal deficits. Pulses: radial=2/4, posterior tibial=1-2/4. Results & Data Vital Signs (Past 12 Hours) Vital Signs Temp Pulse Pulse Resp BP Pulse Ox O2 Del Method 07/02/23 10:33 79 20 93 Nasal Cannula 07/02/23 08:00 61 07/02/23 07:39 79 20 98 Nasal Cannula 07/02/23 07:14 36.7 C 65 19 123/63 93 Nasal Cannula 07/02/23 02:52 36.6 C 76 18 145/73 H 95 Nasal Cannula 07/01/23 22:55 36.7 C 75 18 152/74 H 92 Nasal Cannula O2 Flow Rate 07/02/23 10:33 2 07/02/23 08:00 07/02/23 07:39 4 07/02/23 07:14 4 07/02/23 02:52 07/01/23 22:55 Laboratory Results Intake and Output 07/01/23 07/02/2324 22:59 06:59 14:59 Intake Total 200 / 465 Balance 200 / 465 Intake: Oral 200 / 200 Other: Other Intake Source sips Weight 70 kg
[2023-07-02 11:45] LABS: Hematocrit (blood only) 35.7 % (37.0-47.0); Hemoglobin 10.2 g/dl (12.0-16.0); Mean Corpuscular Hemoglobin 22.9 pg (25.0-34.0); Mean Corpuscular Hgb Conc 28.6 g/dL (32.0-36.0); Mean Corpuscular Volume 80.2 fL (80.0-100.0); Mean Platelet Volume 9.6 fL (9.4-12.4); Platelet Count 231 K/uL (130-400); RDW Coefficient of Variation 21.4 % (11.5-14.5); RDW Standard Deviation 57.6 fL (36.4-46.3); Red Blood Count 4.45 M/uL (4.20-5.40); White Blood Count 5.22 K/ul (4.8-10.8)
[2023-07-02 11:50] LABS: Albumin Globulin Ratio 1.5 (0.9-2); Albumin Level 4.3 gm/dl (3.4-5.0); Bilirubin,Total 0.5 mg/dl (0.2-1.0); Calcium 9.3 mg/dl (8.6-10.3); Creatinine Clr Calc Pharmacy 46.8 ml/min; Est GFR (African American) 66.6 ml/min; Est GFR (Non-African American) 57.4 ml/min; Globulin 2.8 gm/dl (2.5-4.0); Magnesium 2.2 mg/dl (1.7-2.4); Potassium 4.2 mmol/L (3.5-5.1); Total Protein 7.1 gm/dl (6.0-8.3)
--- NOTE | 2023-07-02 13:38 | Hospitalist Progress Note ---
Date of Service July 02, 2023 Assessment & Plan (1) Symptomatic anemia: (2) Iron deficiency anemia: Plan: Patient 78-year-old female with PMH HTN, HLD, diet-controlled DM II, CKD III, CVA, CAD s/p stent, history of cardiomyopathy, s/p ICD, seizure disorder, paroxysmal atrial fibrillation, anticoagulated on Eliquis, history of DVT 09/2022, COPD, tobacco use, and others listed below presented to ER with complaint of generalized weakness x 1 week. Denies melena or hematochezia. Known iron deficiency anemia on outpatient labs in 02/2023. Symptomatic anemia Iron deficiency anemia Generalized weakness due to above Suspected occult GI bleed --CT ABD: Showed diverticulosis without acute diverticulitis. No small bowel obstruction. No free intraperitoneal air. S/P 2 unit PRBCs S/P IV Venofer X 2 Advised to obtain EGD--patient refused initially but currently agrees to proceed Appreciate GI input Monitor H&H and transfuse as needed Continue PPI Received IV Venofer today Plavix, Eliquis held for now (started on aspirin 81 mg daily for now per card iology) Hb 10.2 today Liquid diet today N.p.o. after midnight for EGD, colonoscopy tomorrow (3) COPD exacerbation: (4) Acute hypoxic respiratory failure: Plan: Acute on chronic respiratory failure with hypoxia Chronic oxygen dependency--was prescribed 2 L: Patient currently not using as recommended Likely multifactorial secondary to COPD, CHF exacerbation --CXR: Cardiomegaly with pulmonary vascular congestion --Negative biofire respiratory panel. --Procalcitonin: <0.05 Currently no wheezing on exam Continue nebs and doxycycline Supplemental oxygen to keep sats 88 to 92% Will consider adding steroids if develops wheezing Titrate oxygen as able Clinically improving Wide-complex tachycardia H/O P.Afib Asymptomatic Metoprolol dose increased to 50 mg twice a day Abnormal CT Infrarenal abdominal aortic aneurysm 3 cm Nonobstructing 5 mm right renal calculus Incidental findings on CT Follow-up as outpatient Chronic lumbago Lumbar x-ray:No acute bony abnormality is identified involving the lumbar spine. Osteopenia and mild spondylotic change as above. Pain control as needed (5) Ischemic cardiomyopathy: Plan: Acute on chronic diastolic heart failure--POA --CXR:Cardiomegaly with pulmonary vascular congestion. --ECHO: EF 60 to 65%. Abnormal septal, apical wall motion reflects pacemaker activation. Basal inferior wall is hypokinetic. Mild aortic valve sclerosis. Mild aortic regurgitation. Trace mitral, tricuspid regurgitation. Estimated systolic pulmonary pressure 36 mmHg. Grade 2 diastolic dysfunction --BNP improved after IV Lasix Monitor I's and O's, daily weight Received IV Lasix Continue home diuretics Appreciate cardiology input Monitor volume status closely (6) History of implantable cardioverter-defibrillator (ICD) placement: Plan: Monitor on telemetry Chronic troponin elevation Likely demand ischemia secondary to hypoxia, volume overload Denies any chest pain Echo as above (7) Elevated troponin: (8) CAD (coronary artery disease): Plan: History ischemic cardiomyopathy. S/P ICD. S/P Stent 01/08/2023 echo: EF: 65-70%, mild LVH Troponin: 80-->87. EKG paced rhythm. Denies CP. Possible demand ischemia Trend troponin Echo as above Continue metoprolol succinate, atorvastatin Added aspirin 81 mg daily for now while Plavix held (9) Abnormal finding on urinalysis: Plan: Ruled out UTI Urine culture negative Empirically received Rocephin (10) Paroxysmal atrial fibrillation: Plan: Anticoagulated on Eliquis Hold Eliquis with possible GI bleed Continue metoprolol succinate (11) HTN (hypertension): Plan: Stable Continue lisinopril, metoprolol succinate Lisinopril dose decreased to 10 mg daily Metoprolol dose adjusted as above (12) Hyperlipidemia: Plan: Continue atorvastatin (13) History of CVA (cerebrovascular accident): Plan: Continue atorvastatin Resume Plavix as able (14) CKD (chronic kidney disease), stage III: Plan: Creatinine at baseline Monitor renal function Avoid nephrotoxic agents as able (15) Diabetes mellitus, type II: Plan: A1c: 5.8 on 03/02/2023 Diet controlled Monitor BGs Insulin sliding scale while hospitalized (16) Seizure disorder: Plan: Denies recent seizure-like activity Continue Keppra (17) History of DVT (deep vein thrombosis): Plan: History lower extremity DVT 09/2022 Resume Eliquis as able (18) Tobacco use: Plan: Ongoing tobacco use disorder Continue nicotine patch Encouraged smoking cessation DVT Px SCDs for now Code Status DNR/DNI Admission and Anticipated Discharge Date Admission Date: June 28, 2023 Subjective Patient is seen and examined at bedside States feeling well No new complaints Hemoglobin stable Cough continues to improve Denies any chest pain, dyspnea, dizziness, abdominal pain, vomiting Review of Systems Review of Systems: All systems reviewed & are unremarkable except as noted in Subjective Physical Exam Physical Exam: Physical Exam: Vitals signs as noted above General Appearance:Moderately built and nourished, no apparent distress Head: normocephalic, Atraumatic Eyes: normal inspection, EOMI, +Pallor Neck: supple, Trachea midline Respiratory/Chest: Decreased breath sounds, CTA, No accessory muscle use Cardiovascular: S1, S2, No murmur,+Pacer Abdomen/GI:Soft, Non tender, Bowel sounds present Extremities/Musculoskeletal:normal inspection, 1+ Pedal edema Neurologic/Psych:AAOX3, grossly no focal neurological deficits Skin: normal color, warm Results & Data Results & Data Vital Signs (Past 12 Hours) Vital Signs Temp Pulse Pulse Resp BP Pulse Ox O2 Del Method 07/02/23 12:03 36.6 C 64 18 125/72 91 Nasal Cannula 07/02/23 10:33 79 20 93 Nasal Cannula 07/02/23 08:00 61 07/02/23 07:39 79 20 98 Nasal Cannula 07/02/23 07:14 36.7 C 65 19 123/63 93 Nasal Cannula 07/02/23 02:52 36.6 C 76 18 145/73 H 95 Nasal Cannula O2 Flow Rate 07/02/23 12:03 2 07/02/23 10:33 2 07/02/23 08:00 07/02/23 07:39 4 07/02/23 07:14 4 07/02/23 02:52 Laboratory Results Short CBC 07/02/23 Range/Units 11:07 WBC 5.22 (4.8-10.8) K/ul Hgb 10.2 L (12.0-16.0) g/dl Hct 35.7 L (37.0-47.0) % Plt Count 231 (130-400) K/uL BMP 07/02/23 11:07 Sodium 139 Potassium 4.2 Chloride 101 Carbon Dioxide 31 BUN 25 H Creatinine 0.96 Glucose 91 Calcium 9.3 Liver Function 07/02/23 Range/Units 11:07 Total Bilirubin 0.5 (0.2-1.0) mg/dl AST 15 (13-39) U/L ALT 6 L (7-52) U/L Alkaline Phosphatase 69 (34-104) U/L Albumin 4.3 (3.4-5.0) gm/dl
[2023-07-02] MEDS: POLYETHYLENE (MIRALAX) 17 GM PACK PO ONE ×2 (18:10→20:28)
[2023-07-02] MEDS: bisacodyL 5 MG TABEC PO ONE (18:10)
[2023-07-03 04:56] LABS: Hemoglobin 9.9 g/dl (12.0-16.0); Mean Corpuscular Hemoglobin 23.6 pg (25.0-34.0); Mean Corpuscular Hgb Conc 29.1 g/dL (32.0-36.0); Mean Platelet Volume 9.5 fL (9.4-12.4); Platelet Count 200 K/uL (130-400); RDW Coefficient of Variation 22.1 % (11.5-14.5); RDW Standard Deviation 57.6 fL (36.4-46.3); White Blood Count 5.56 K/ul (4.8-10.8)
[2023-07-03 05:09] LABS: Creatinine Clr Calc Pharmacy 59.9 ml/min; Est GFR (African American) 89.7 ml/min; Est GFR (Non-African American) 77.4 ml/min; Potassium 4.3 mmol/L (3.5-5.1)
--- NOTE | 2023-07-03 08:38 | History & Physical Report ---
Date of Service July 03, 2023 Assessment & Plan Admission and Anticipated Discharge Date Admission Date: June 28, 2023 History of Present Illness Chief Complaint: Admitted for anemia - scot seen by GI on 06/29. Cardiology clearance requested prior to scopes. Primary Care Provider: Roman Ennis MD Talkative lady in no acute distress Allergies Allergy/AdvReac Type Severity Reaction Status Date / Time NSAIDS (Non-Steroidal AdvReac Severe GI ISSUES Verified 06/28/23 18:11 Anti-Inflamma Zweiqxt-SZE-OuU Reductase AdvReac Severe LIVER Verified 06/28/23 18:11 Inhibitor FUNCTION [Olvujdc-Skw-Rbk Reductase ELEVATES Inhibitor] isosorbide AdvReac Intermediate VOMIT/HEADA Verified 06/28/23 18:11 CARLOS tramadol AdvReac Intermediate VOMITING Verified 06/28/23 18:11 Home Medications Medication Instructions Recorded Confirmed Type nitroglycerin 0.4 mg sublingual 0.4 mg sublingual DIRECTED PRN 03/30/17 06/28/23 History tablet Chest Pain #0 BTLS pantoprazole 40 mg tablet,delayed 40 mg PO DAILYBB #30 tabs 03/30/17 06/28/23 History release oxycodone 5 mg tablet 5 mg PO Q6H PRN Severe Pain (Scale 08/16/20 06/28/23 History Score 7-10) atorvastatin 40 mg tablet 20 mg PO DAILY 10/05/22 06/28/23 History gabapentin 300 mg capsule See Rx Instructions .Route .COMPLEX 12/17/22 06/28/23 History ondansetron HCl 4 mg tablet 4 mg PO Q8H PRN Nausea 12/17/22 06/28/23 History umeclidinium 62.5 mcg-vilanterol 1 inh inhalation DAILY 12/17/22 06/28/23 History 25 mcg/actuation powdr for inhalation (Anoro Ellipta) apixaban 5 mg tablet (Eliquis) 5 mg PO BID #60 tabs 12/19/22 06/28/23 Rx clopidogrel 75 mg tablet 75 mg PO QAM #30 tabs 12/19/22 06/28/23 Rx levetiracetam 500 mg tablet 500 mg PO AMHS 01/11/23 06/28/23 History cyanocobalamin (vitamin B-12) 1,000 mcg PO QAM 06/28/23 06/28/23 History 1,000 mcg tablet (Vitamin B-12) furosemide 40 mg tablet See Rx Instructions .Route .COMPLEX 06/28/23 06/28/23 History lisinopril 20 mg tablet 20 mg PO QAM 06/28/23 06/28/23 History metoprolol succinate 25 mg 25 mg PO BID 06/28/23 06/28/23 History tablet,extended release 24 hr trazodone 50 mg tablet 25 mg PO HS 06/28/23 06/28/23 History Past Med/Surg History Medical History History of DVT (deep vein thrombosis) Seizure disorder Paroxysmal atrial fibrillation Diabetes mellitus, type II History of CVA (cerebrovascular accident) Chronic pain Respiratory acidosis Elevated troponin Anxiety Chronic hepatitis C without hepatic coma CKD (chronic kidney disease), stage III COPD, group C, by GOLD 2017 classification Acute anterior wall CT LBBB (left bundle branch block) Migraine GERD (gastroesophageal reflux disease) OA (osteoarthritis) Hyperlipidemia HTN (hypertension) Ischemic cardiomyopathy CAD (coronary artery disease) "CT 2006. S/P PCI/Stent RCA" Hypoxia H/O cardiac pacemaker Surgical History H/O release of tendon History of carpal tunnel surgery H/O: hysterectomy Hx of cataract surgery S/P cardiac cath S/P cholecystectomy History of implantable cardioverter-defibrillator (ICD) placement Family History Father , age 81 of lung cancer Prostate cancer Heart disease Thyroid disorder Lung cancer Mother , age 80 with COPD Cancer Cervical Coronary heart disease s/p CABG Diabetes COPD (chronic obstructive pulmonary disease) Social History Smoking Status: Current every day smoker Tobacco Type: Cigarettes Age Started Using Tobacco: 23; packs per day: 0.5; Cigarettes Per Day: 4; Second Hand Exposure: No; Do You Dip or Chew Tobacco: No; Hx Alcohol Use: No Hx Substance Use: No Preferred Language: Czech Communication Ability: Effective 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 Required: No Beliefs That Will Affect Care: None Current Living Situation: Alone current occupational status: retired 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 Other Information That Helps Us Care for You: No Feels Safe at Home: Yes Safety Concerns: Feels Safe At This Time Assistive Devices: Oxygen - Continuous and Walker Physical Exam Physical Exam: Elderly fm in nad Eyes: PERRL, conjunctivae normal, anicteric sclerae Respiratory: Normal respirations Gastrointestinal (Abdomen): Soft nt nd Results & Data Vital Signs (Past 12 Hours) Vital Signs Temp Pulse Pulse Resp BP Pulse Ox O2 Del Method 07/03/23 08:32 68 07/03/23 08:19 36.6 C 78 16 140/62 91 Nasal Cannula 07/03/23 07:02 71 18 89 L Nasal Cannula 07/03/23 06:58 36.7 C 68 19 127/69 91 Nasal Cannula 07/03/23 03:37 36.8 C 70 18 115/68 93 Nasal Cannula 07/02/23 23:18 36.9 C 72 18 134/74 92 Nasal Cannula O2 Flow Rate 07/03/23 08:32 07/03/23 08:19 2 07/03/23 07:02 2 07/03/23 06:58 1 07/03/23 03:37 1.5 07/02/23 23:18 1.5 Code Status & VTE Plan VTE Prophylaxis Plan VTE Prophylaxis will be ordered: Yes Supervising Physician Co-Signing Physician Notes egd/colon for evaluation of anemia blood thinner has been held
--- NOTE | 2023-07-03 08:50 | Anesthesiology Consultation ---
Date of Service July 03, 2023 History Surgery Operation Date: 06/29/23 16:30 Proposed Procedures p Esophagogastroduodenoscopy Dr Armando Roberts DO Operation Date: 07/03/23 16:30 Proposed Procedures p Colonoscopy EGD Dr. Lisa Gonzalez MD Height/Weight Height: 5 ft 3 in Weight: 70.1 kg Allergies Allergy/AdvReac Type Severity Reaction Status Date / Time NSAIDS (Non-Steroidal AdvReac Severe GI ISSUES Verified 06/28/23 18:11 Anti-Inflamma Cbzokya-EDP-HlC Reductase AdvReac Severe LIVER Verified 06/28/23 18:11 Inhibitor FUNCTION [Utrvruk-Apx-Uxd Reductase ELEVATES Inhibitor] isosorbide AdvReac Intermediate VOMIT/HEADA Verified 06/28/23 18:11 CARLOS tramadol AdvReac Intermediate VOMITING Verified 06/28/23 18:11 Medications Home Medications Medication Instructions Recorded Confirmed Last Taken nitroglycerin 0.4 mg sublingual 0.4 mg sublingual DIRECTED PRN 03/30/17 06/28/23 Unknown tablet Chest Pain #0 BTLS pantoprazole 40 mg tablet,delayed 40 mg PO DAILYBB #30 tabs 03/30/17 06/28/23 06/27/23 release oxycodone 5 mg tablet 5 mg PO Q6H PRN Severe Pain (Scale 08/16/20 06/28/23 Unknown Score 7-10) atorvastatin 40 mg tablet 20 mg PO DAILY 10/05/22 06/28/23 06/27/23 gabapentin 300 mg capsule See Rx Instructions .Route .COMPLEX 12/17/22 06/28/23 06/27/23 ondansetron HCl 4 mg tablet 4 mg PO Q8H PRN Nausea 12/17/22 06/28/23 Unknown umeclidinium 62.5 mcg-vilanterol 1 inh inhalation DAILY 12/17/22 06/28/23 06/27/23 25 mcg/actuation powdr for inhalation (Anoro Ellipta) apixaban 5 mg tablet (Eliquis) 5 mg PO BID #60 tabs 12/19/22 06/28/23 06/27/23 clopidogrel 75 mg tablet 75 mg PO QAM #30 tabs 12/19/22 06/28/23 06/27/23 levetiracetam 500 mg tablet 500 mg PO AMHS 01/11/23 06/28/23 06/27/23 cyanocobalamin (vitamin B-12) 1,000 mcg PO QAM 06/28/23 06/28/23 06/27/23 1,000 mcg tablet (Vitamin B-12) furosemide 40 mg tablet See Rx Instructions .Route .COMPLEX 06/28/23 06/28/23 06/27/23 lisinopril 20 mg tablet 20 mg PO QAM 06/28/23 06/28/23 06/27/23 metoprolol succinate 25 mg 25 mg PO BID 06/28/23 06/28/23 06/27/23 tablet,extended release 24 hr trazodone 50 mg tablet 25 mg PO HS 06/28/23 06/28/23 06/27/23 Active Medications Generic Name Dose Route Start Last Admin Trade Name Miltonq PRN Reason Stop Dose Admin Albuterol 3 ml 06/29/23 07:00 07/03/23 07:01 Albut/Ipratrop 3mg/0.5mg Neb 3 Ml Vial NEB 07/29/23 06:59 3 ml QIDR LISHA Administration Protocol Aspirin 81 mg 06/30/23 12:15 07/02/23 08:30 Aspirin 81 Mg Ectab PO 07/30/23 12:14 81 mg QAM LISHA Administration Atorvastatin Calcium 20 mg 06/29/23 09:00 07/02/23 08:30 Atorvastatin 20 Mg Tab PO 07/29/23 08:59 20 mg DAILY LISHA Administration Cyanocobalamin 1,000 mcg 06/29/23 09:00 07/02/23 08:30 Cyanocobalamin (B-12) 500 Mcg Tablet PO 07/29/23 08:59 1,000 mcg QAM LISHA Administration Doxycycline Hyclate 100 mg 07/01/23 11:30 07/02/23 20:26 Doxycycline Hyclate 100 Mg Cap PO 07/03/23 21:01 100 mg BID LISHA Administration Furosemide 40 mg 06/29/23 09:00 07/02/23 08:29 Furosemide 40 Mg Tab PO 07/29/23 08:59 40 mg DAILY LISHA Administration Gabapentin 300 mg 06/29/23 09:00 07/02/23 12:26 Gabapentin 300 Mg Cap PO 07/29/23 08:59 300 mg 0900,1200 LISHA Administration Gabapentin 600 mg 06/29/23 21:00 07/02/23 20:25 Gabapentin 300 Mg Cap PO 07/29/23 20:59 600 mg HS LISHA Administration Pantoprazole Sodium 40 mg/ 10 mls @ 5 mls/min 06/28/23 23:00 07/02/23 20:28 Syringe IV 07/28/23 22:59 5 mls/min BID LISHA Administration Insulin Aspart 0 units 06/29/23 16:30 07/03/23 08:12 Insulin Aspart Per Unit Charge SC 07/29/23 16:29 Not Given ACHS LISHA Levetiracetam 500 mg 06/29/23 09:00 07/02/23 20:27 Levetiracetam 500 Mg Tab PO 07/29/23 08:59 500 mg AMHS LISHA Administration Lisinopril 10 mg 07/02/23 09:00 07/02/23 08:29 Lisinopril 10 Mg Tab PO 08/01/23 08:59 10 mg QAM LISHA Administration Metoprolol Succinate 50 mg 07/01/23 21:00 07/02/23 20:26 Metoprolol Succ 50mg Ext Rel Tab PO 07/31/23 20:59 50 mg BID LISHA Administration Miscellaneous 1 each 07/01/23 08:59 07/02/23 08:39 Remove Nicoderm Patch N/A 07/31/23 08:58 1 each DAILY@0859 LISHA Administration Nicotine 21 mg 06/30/23 14:00 07/02/23 08:29 Nicotine 21 Mg/24 Hr Tdsy TD 07/30/23 13:59 21 mg QAM LISHA Administration Oxycodone HCl 5 mg 06/28/23 22:03 07/02/23 23:24 Oxycodone Hcl Ir 5 Mg Tab (Immediate Release) PO 07/12/23 22:02 5 mg Q6H PRN Administration Severe Pain (Scale Score 7-10) Trazodone HCl 25 mg 06/29/23 21:00 07/02/23 20:29 Trazodone Hcl 50 Mg Tab PO 07/29/23 20:59 25 mg HS LISHA Administration Umeclidinium/Vilanterol 1 puffs 06/29/23 09:00 07/02/23 08:28 Umeclidinium/Vilanterol 62.5/25mcg 7 Puffs/Inhaler INH 07/29/23 08:59 1 puffs DAILY LISHA Administration NPO Date Last Intake of Fluids: 07/02/23 Time Last Intake of Fluids: 19:00 Date Last Intake of Solids: 07/01/23 Time Last Intake of Solids: 18:00 Past Medical History Medical History History of DVT (deep vein thrombosis) Seizure disorder Paroxysmal atrial fibrillation Diabetes mellitus, type II History of CVA (cerebrovascular accident) Chronic pain Respiratory acidosis Elevated troponin Anxiety Chronic hepatitis C without hepatic coma CKD (chronic kidney disease), stage III COPD, group C, by GOLD 2017 classification Acute anterior wall [place] LBBB (left bundle branch block) Migraine GERD (gastroesophageal reflux disease) OA (osteoarthritis) Hyperlipidemia HTN (hypertension) Ischemic cardiomyopathy CAD (coronary artery disease) "ND 2006. S/P PCI/Stent RCA" Hypoxia H/O cardiac pacemaker Past Family History Family History Father , age 81 of lung cancer Prostate cancer Heart disease Thyroid disorder Lung cancer Mother , age 80 with COPD Cancer Cervical Coronary heart disease s/p CABG Diabetes COPD (chronic obstructive pulmonary disease) Past Surgical History Surgical History H/O release of tendon History of carpal tunnel surgery H/O: hysterectomy Hx of cataract surgery S/P cardiac cath S/P cholecystectomy History of implantable cardioverter-defibrillator (ICD) placement Social History Smoking Status: Current every day smoker tobacco type: cigarettes Smoking cigarettes per day: 4 Do You Dip or Chew Tobacco: No Hx Alcohol Use: No Hx Substance Use: No Physical Exam Vital Signs Last Vital Signs Temp 36.6 C 07/03/23 08:19 Pulse 68 07/03/23 08:32 Resp 16 07/03/23 08:19 BP 140/62 07/03/23 08:19 Pulse Ox 91 07/03/23 08:19 O2 Del Method Nasal Cannula 07/03/23 08:19 O2 Flow Rate 2 07/03/23 08:19 Testing Laboratory Results 07/03/23 04:31 07/03/23 04:31 PT 11.9 Seconds (9.0-12.0) 06/28/23 18:01 INR 1.1 (0.9-1.1) 06/28/23 18:01 Urine Color Yellow 06/28/23 Unknown Urine Appearance Clear (Clear) 06/28/23 Unknown Urine pH 6.0 (4.5-7.5) 06/28/23 Unknown Ur Specific [place] 1.012 (1.000-1.030) 06/28/23 Unknown Urine Protein Trace (Negative) H 06/28/23 Unknown Urine Glucose (UA) Negative (Negative) 06/28/23 Unknown Urine Ketones Negative (Negative) 06/28/23 Unknown Urine Nitrite Negative (Negative) 06/28/23 Unknown Ur Leukocyte Esterase Negative (Negative) 06/28/23 Unknown Urine WBC (Auto) 1-5 /hpf (0-5) 06/28/23 Unknown Urine RBC (Auto) 0-4 /hpf (0-4) 06/28/23 Unknown U Hyaline Cast (Auto) 1-5 /lpf (0-5) 06/28/23 Unknown U Epithel Cells (Auto) >30 /lpf (0-5) H 06/28/23 Unknown Urine Bacteria (Auto) 1+ (Negative) H 06/28/23 Unknown Blood Type A Positive 06/28/23 19:45 Antibody Screen NEGATIVE 06/28/23 19:45 06/28/23 18:01 Aerobic Blood Culture - Preliminary Blood No growth in Aerobic bottle after 48 hours. Anaerobic Blood Culture - Preliminary No growth in Anaerobic bottle after 48 hours. 06/28/23 19:45 Aerobic Blood Culture - Preliminary Blood No growth in Aerobic bottle after 48 hours. Anaerobic Blood Culture - Preliminary No growth in Anaerobic bottle after 48 hours. 06/28/23 Unknown Urine Culture - Final Urine,Clean Catch Three types of organisms present, all high counts probable skin alexis. No further identifications or sensitivities to follow. 07/03/23 08:09 POC Glucose 95
--- NOTE | 2023-07-03 09:18 | GI REPORT ---
Patient Name: Radha Tong Procedure Date: 07/03/2023 8:22 AM Date of : 1945 Admit Type: Inpatient Age: 78 Gender: Female Attending MD: Queenie Gonzalez M.d., Procedure: Upper GI endoscopy Providers: Queenie Gonzalez M.d. Referring MD: Lam Freed Md Indications: Iron deficiency anemia Medicines: See the Anesthesia note for documentation of the administered medications Complications: No immediate complications. Estimated Blood Loss: Estimated blood loss: none. Procedure: Pre-Anesthesia Assessment: - Patient identification and proposed procedure were verified prior to the procedure by the physician, the nurse and the anesthesiologist. The procedure was verified in the pre-procedure area. - Prior to the procedure, a History and Physical was performed, and patient medications, allergies and sensitivities were reviewed. The patient's tolerance of previous anesthesia was reviewed. - The risks and benefits of the procedure and the sedation options and risks were discussed with the patient. All questions were answered and informed consent was obtained. After obtaining informed consent, the endoscope was passed under direct vision. Throughout the procedure, the patient's blood pressure, pulse, and oxygen saturations were monitored continuously. The Colonoscope was introduced through the mouth and advanced to the second part of duodenum. The upper GI endoscopy was accomplished without difficulty. The patient tolerated the procedure well. Findings: The examined esophagus appeared normal. The Z-line appeared regular. The examined stomach appeared normal. Biopsies were taken with a cold forceps for Helicobacter pylori testing. The pathology specimen was placed into Bottle B. The duodenal bulb and second portion of the duodenum appeared normal. Biopsies for histology were taken with a cold forceps for evaluation of celiac disease. The pathology specimen was placed into Bottle A. Verification of patient identification for the specimen was done by the physician and nurse using the patient's name and medical record number. Impression: - Normal esophagus. - Z-line regular. - Normal stomach. Biopsied. - Normal duodenal bulb and second portion of the duodenum. Biopsied. Recommendation: - Await pathology results. - Proceed to colonoscopy. Patrice Brooks M.d. 07/03/2023 9:18:25 AM This report has been signed electronically. Note Initiated On: 07/03/2023 8:22 AM Number of Addenda: 0 I attest to the content of the Intraoperative Record and orders documented therein, exceptions below {[id number]}
--- NOTE | 2023-07-03 09:20 | GI REPORT ---
Patient Name: Radha Tong Procedure Date: 07/03/2023 8:21 AM Date of : 1945 Admit Type: Inpatient Age: 78 Gender: Female Attending MD: Queenie Gonzalez M.d., Procedure: Colonoscopy Providers: Queenie Gonzalez M.d. Referring MD: Lam Freed Md Indications: Iron deficiency anemia Medicines: See the Anesthesia note for documentation of the administered medications Complications: No immediate complications. Estimated Blood Loss: Estimated blood loss: none. Procedure: Pre-Anesthesia Assessment: - Patient identification and proposed procedure were verified prior to the procedure by the physician, the nurse and the anesthesiologist. The procedure was verified in the pre-procedure area. - Prior to the procedure, a History and Physical was performed, and patient medications, allergies and sensitivities were reviewed. The patient's tolerance of previous anesthesia was reviewed. - The risks and benefits of the procedure and the sedation options and risks were discussed with the patient. All questions were answered and informed consent was obtained. After I obtained informed consent, the scope was passed under direct vision. Throughout the procedure, the patient's blood pressure, pulse, and oxygen saturations were monitored continuously. The Colonoscope was introduced through the anus and advanced to the terminal ileum. The colonoscopy was performed without difficulty. The patient tolerated the procedure well. The quality of the bowel preparation was adequate to identify polyps greater than 5 mm in size. Findings: The examined terminal ileum appeared normal. The examined colon appeared normal. A 6 mm polyp was found in the descending colon. The polyp was sessile and was removed with a cold snare. Resection and retrieval were complete. The pathology specimen was placed into Bottle C. Verification of patient identification for the specimen was done by the physician and nurse using the patient's name and medical record number. Internal hemorrhoids were found during retroflexion. The exam was otherwise without abnormality on direct and retroflexion views. Impression: - The examined portion of the terminal ileum appeared normal. - The examined colon appeared normal. - One 6 mm polyp in the descending colon, removed with a cold snare. Resected and retrieved. - Internal hemorrhoids. - The examination was otherwise normal on direct and retroflexion views. Recommendation: - Await pathology results. Patrice Brooks M.d. 07/03/2023 9:20:06 AM This report has been signed electronically. Note Initiated On: 07/03/2023 8:21 AM Number of Addenda: 0 I attest to the content of the Intraoperative Record and orders documented therein, exceptions below {[id number]}
--- NOTE | 2023-07-03 09:21 | Communication Note ---
Date of Service: July 03, 2023 egd/colon done for fe deficiency anemia egd/colon were normal egd with biopsies done of duodenum to rule out celiac/stomach for h pylori colon with one polyp removed Patient will be informed of biopsy results Diet per primary team Call if questions
[2023-07-03] MEDS: PROPOFOL IV EMULSION 10 MG/ML 20 ML VIAL IV ONE (10:07)
[2023-07-03] MEDS: LIDOCAINE 2% 2 ML VIAL/AMP(20MG/ML) INFIL ONE (10:07)
--- NOTE | 2023-07-03 11:00 | Anesthesiology Progress Note ---
Date of Service July 03, 2023 Anesthesia Post Procedure Vital Signs Vital Signs: Temp Pulse Pulse Resp BP BP Pulse Ox 07/03/23 10:29 69 15 87 L 07/03/23 09:48 69 16 153/76 H 92 07/03/23 09:33 69 16 141/75 H 92 07/03/23 09:28 71 16 116/63 99 07/03/23 08:32 68 07/03/23 08:19 36.6 C 78 16 140/62 91 07/03/23 07:02 71 18 89 L 07/03/23 06:58 36.7 C 68 19 127/69 91 07/03/23 03:37 36.8 C 70 18 115/68 93 07/02/23 23:18 36.9 C 72 18 134/74 92 07/02/23 19:34 07/02/23 19:32 37.0 C 69 20 148/77 H 96 07/02/23 19:25 53 L 16 97 07/02/23 16:02 37.0 C 73 18 146/78 H 90 07/02/23 15:22 61 07/02/23 14:42 68 18 97 07/02/23 12:03 36.6 C 64 18 125/72 91 O2 Del Method O2 Flow Rate FiO2 07/03/23 10:29 Room Air 07/03/23 09:48 Room Air 07/03/23 09:33 Room Air 07/03/23 09:28 Room Air 07/03/23 08:32 07/03/23 08:19 Nasal Cannula 2 07/03/23 07:02 Nasal Cannula 2 07/03/23 06:58 Nasal Cannula 1 07/03/23 03:37 Nasal Cannula 1.5 07/02/23 23:18 Nasal Cannula 1.5 07/02/23 19:34 Nasal Cannula 2 07/02/23 19:32 Nasal Cannula 2 07/02/23 19:25 Nasal Cannula 2 07/02/23 16:02 Nasal Cannula 2 07/02/23 15:22 07/02/23 14:42 Nasal Cannula 2 07/02/23 12:03 Nasal Cannula 2 Pain Intensity Bilateral Ankle: Pain Intensity: 3 Abdomen: Pain Intensity: 10 Upper Abdomen: Pain Intensity: 3 Transfer of Care Handoff Completed per policy Notes Mental Status: alert / awake / arousable and participated in evaluation Nausea / Vomiting: adequately controlled Pain: adequately controlled Airway Patency, RR, SpO2: stable & adequate BP & HR: stable & adequate Hydration State: stable & adequate Anesthetic Complications: no major complications apparent and Pt Satisfied with anesthetic care
--- NOTE | 2023-07-03 11:54 | Cardiology Progress Note ---
Date of Service July 03, 2023 Assessment & Plan (1) Symptomatic anemia: (2) Paroxysmal atrial fibrillation: (3) History of CVA (cerebrovascular accident): (4) Iron deficiency anemia: (5) History of implantable cardioverter-defibrillator (ICD) placement: (6) Ischemic cardiomyopathy: (7) Chronic congestive heart failure: (8) Tobacco use: Plan Symptomatic anemia, iron deficiency. Status post transfusion of 2 units PRBCs. EGD on 07/03/2023 with a normal esophagus, normal stomach, normal duodenal bulb and second portion of the duodenum. Colonoscopy on 07/03/2023 revealed one 6 mm polyp in the descending colon that was resected and retrieved and internal hemorrhoids. Resume Eliquis and clopidogrel without aspirin when safe. Start Vitron C one tablet daily. 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 EF 60-65% on 06/29/2023. Volume status: Normovolemic. Elevated troponin, demand ischemia secondary to the above. Patient asymptomatic. EKG without acute change. Echo with preserved systolic function, evidence of the old inferior AR. Continue medical management. See above. Ongoing tobacco cessation urged. Nicotine patches discussed along with 1-800 Quit Now. Paroxysmal atrial fibrillation. Resume Eliquis when determined to be safe. Metoprolol succinate increased to 50 mg twice per day this admission Lisinopril dosing decreased to 10 mg/day this admission. OK for discharge from a cardiac standpoint. Outpatient cardiology follow-up. Admission and Anticipated Discharge Date Admission Date: June 28, 2023 Supervising Physician Co-Signing Physician Notes I have reviewed the advance practitioner's documentation, and I agree with, and take responsibility for the plan of care. Patient was personally seen and examined. Full assessment and plan as well outlined Currently asymptomatic with reassuring endoscopy and colonoscopy initially this morning As above recommend resuming Eliquis and clopidogrel, stop aspirin Continue iron supplement with close follow-up hemoglobin and iron level Cardiac medications as outlined Subjective Patient seen and examined. Chart, medications, and telemetry reviewed. Post EGD and colonoscopy. Anxious for discharge prior to the impending winter storm. No chest pain. No palpitations. Breathing is OK. Chronic stable cough. Tobacco free x 8 days, utilizing nicotine patch which she would like to continue postdischarge. Telemetry reviewed: Paced 60s to 80s. Review of Systems Review of Systems: Complete review of systems is otherwise as stated above, negative, noncontributory Physical Exam Physical Exam: General: A&Ox3. NAD. HENT: Normocephalic. Atraumatic. Eyes: PER. Conjunctiva pink, sclera pale. Neck: Bilateral carotid bruits. No JVD Heart: RRR, 74 bpm. Soft systolic murmur. No rub. Lungs: Diminished. Decreased. Scattered rhonchi that improved post cough. No current wheeze. Abdomen: +BS. Soft. Nontender. No masses or organomegaly. Extremities: No clubbing, cyanosis, or significant edema. Limited neurological examination is without focal deficits. Pulses: radial=2/4, posterior tibial=1-2/4. Results & Data Vital Signs (Past 12 Hours) Vital Signs Temp Pulse Pulse Resp BP Pulse Ox O2 Del Method 07/03/23 11:00 37.4 C 80 18 152/75 H 89 L Room Air 07/03/23 10:29 69 15 87 L Room Air 07/03/23 09:48 69 16 153/76 H 92 Room Air 07/03/23 09:33 69 16 141/75 H 92 Room Air 07/03/23 09:28 71 16 116/63 99 Room Air 07/03/23 08:32 68 07/03/23 08:19 36.6 C 78 16 140/62 91 Nasal Cannula 07/03/23 07:02 71 18 89 L Nasal Cannula 07/03/23 06:58 36.7 C 68 19 127/69 91 Nasal Cannula 07/03/23 03:37 36.8 C 70 18 115/68 93 Nasal Cannula O2 Flow Rate FiO2 07/03/23 11:00 07/03/23 10:29 21 07/03/23 09:48 07/03/23 09:33 07/03/23 09:28 07/03/23 08:32 07/03/23 08:19 2 07/03/23 07:02 2 07/03/23 06:58 1 07/03/23 03:37 1.5 Laboratory Results CBC 07/03/23 Range/Units 04:31 WBC 5.56 (4.8-10.8) K/ul RBC 4.20 (4.20-5.40) M/uL Hgb 9.9 L (12.0-16.0) g/dl Hct 34.0 L (37.0-47.0) % Plt Count 200 (130-400) K/uL Comprehensive Metabolic Panel 07/03/23 Range/Units 04:31 Sodium 138 (136-145) mmol/L Potassium 4.3 (3.5-5.1) mmol/L Chloride 102 (98-107) mmol/L Carbon Dioxide 30 (21-32) mmol/L BUN 21 (6-23) mg/dl Creatinine 0.75 (0.6-1.2) mg/dl Glucose 91 (70-99(Fasting)) mg/dl Calcium 9.0 (8.6-10.3) mg/dl Intake and Output 07/02/23 07/03/23 07/03/23 22:59 06:59 14:59 Intake Total 750 / 1270 520 / 1270 Output Total Balance 749 / 1269 520 / 1269 Intake: Oral 750 / 1270 520 / 1270 Output: # Bowel Movements Other: Other Intake Source NPO Weight 70.1 kg 70.1 kg Weight Measurement Method Built in [facility] Patient Weight 07/04/23 06:59 Weight 70.1 kg
[2023-07-03] MEDS: IRON SUCROSE 300 MG in SODIUM CHLORIDE 0.9% 250 ML IV ONE (13:27)
--- NOTE | 2023-07-03 15:27 | Hospitalist Progress Note ---
Date of Service July 03, 2023 Assessment & Plan (1) Symptomatic anemia: (2) Iron deficiency anemia: Plan: Patient 78-year-old female with PMH HTN, HLD, diet-controlled DM II, CKD III, CVA, CAD s/p stent, history of cardiomyopathy, s/p ICD, seizure disorder, paroxysmal atrial fibrillation, anticoagulated on Eliquis, history of DVT 09/2022, COPD, tobacco use, and others listed below presented to ER with complaint of generalized weakness x 1 week. Denies melena or hematochezia. Known iron deficiency anemia on outpatient labs in 02/2023. Symptomatic anemia Iron deficiency anemia Generalized weakness due to above Suspected occult GI bleed --CT ABD: Showed diverticulosis without acute diverticulitis. No small bowel obstruction. No free intraperitoneal air. S/P 2 unit PRBCs S/P IV Venofer X 3 S/P EGD: Normal esophagus. Z-line regular. Normal stomach. Biopsied. Normal duodenal bulb and second portion of the duodenum. Biopsied. S/P Colonoscopy:The examined portion of the terminal ileum appeared normal. The examined colon appeared normal. One 6 mm polyp in the descending colon, removed with a cold snare. Resected and retrieved. Internal hemorrhoids. The examination was otherwise normal on direct and retroflexion views. -- Pathology pending Appreciate GI input Monitor H&H and transfuse as needed Continue PPI Plavix, Eliquis--will resume today. Okay with GI to resume. Discussed on 07/03/23 Hb 9.9 today Monitor CBC/bleeding issues Start on oral iron supplements tomorrow (3) COPD exacerbation: (4) Acute hypoxic respiratory failure: Plan: Acute on chronic respiratory failure with hypoxia Chronic oxygen dependency--was prescribed 2 L: Patient currently not using as recommended Likely multifactorial secondary to COPD, CHF exacerbation --CXR: Cardiomegaly with pulmonary vascular congestion --Negative biofire respiratory panel. --Procalcitonin: <0.05 Currently no wheezing on exam Continue nebs and doxycycline Supplemental oxygen to keep sats 88 to 92% Will consider adding steroids if develops wheezing Titrate oxygen as able Clinically improved Wide-complex tachycardia H/O P.Afib Asymptomatic Metoprolol dose increased to 50 mg twice a day On Eliquis for anticoagulation Abnormal CT Infrarenal abdominal aortic aneurysm 3 cm Nonobstructing 5 mm right renal calculus Incidental findings on CT Follow-up as outpatient Chronic lumbago Lumbar x-ray:No acute bony abnormality is identified involving the lumbar spine. Osteopenia and mild spondylotic change as above. Pain control as needed (5) Ischemic cardiomyopathy: Plan: Acute on chronic diastolic heart failure--POA --CXR:Cardiomegaly with pulmonary vascular congestion. --ECHO: EF 60 to 65%. Abnormal septal, apical wall motion reflects pacemaker activation. Basal inferior wall is hypokinetic. Mild aortic valve sclerosis. Mild aortic regurgitation. Trace mitral, tricuspid regurgitation. Estimated systolic pulmonary pressure 36 mmHg. Grade 2 diastolic dysfunction --BNP improved after IV Lasix Monitor I's and O's, daily weight Received IV Lasix Continue home diuretics Appreciate cardiology input Monitor volume status closely (6) History of implantable cardioverter-defibrillator (ICD) placement: Plan: Monitor on telemetry Chronic troponin elevation Likely demand ischemia secondary to hypoxia, volume overload Denies any chest pain Echo as above (7) Elevated troponin: (8) CAD (coronary artery disease): Plan: History ischemic cardiomyopathy. S/P ICD. S/P Stent 01/08/2023 echo: EF: 65-70%, mild LVH Troponin: 80-->87. EKG paced rhythm. Denies CP. Possible demand ischemia Trend troponin Echo as above Continue metoprolol succinate, atorvastatin, Plavix (9) Abnormal finding on urinalysis: Plan: Ruled out UTI Urine culture negative Empirically received Rocephin (10) Paroxysmal atrial fibrillation: Plan: Anticoagulated on Eliquis Continue metoprolol succinate (11) HTN (hypertension): Plan: Stable Continue lisinopril, metoprolol succinate Lisinopril dose decreased to 10 mg daily Metoprolol dose adjusted as above (12) Hyperlipidemia: Plan: Continue atorvastatin (13) History of CVA (cerebrovascular accident): Plan: Continue atorvastatin, Plavix (14) CKD (chronic kidney disease), stage III: Plan: Creatinine at baseline Monitor renal function Avoid nephrotoxic agents as able (15) Diabetes mellitus, type II: Plan: A1c: 5.8 on 03/02/2023 Diet controlled Monitor BGs Insulin sliding scale while hospitalized (16) Seizure disorder: Plan: Denies recent seizure-like activity Continue Arturo (17) History of DVT (deep vein thrombosis): Plan: History lower extremity DVT 09/2022 on Eliquis (18) Tobacco use: Plan: Ongoing tobacco use disorder Continue nicotine patch Encouraged smoking cessation DVT Px Eliquis Code Status DNR/DNI Admission and Anticipated Discharge Date Admission Date: June 28, 2023 Subjective Patient is seen and examined at bedside States feeling well today No new complaints Had EGD, colonoscopy earlier today Denies any chest pain, dyspnea, dizziness, abdominal pain, vomiting Eager to get discharged Review of Systems Review of Systems: All systems reviewed & are unremarkable except as noted in Subjective Physical Exam Physical Exam: Physical Exam: Vitals signs as noted above General Appearance:Moderately built and nourished, no apparent distress Head: normocephalic, Atraumatic Eyes: normal inspection, EOMI, +Pallor Neck: supple, Trachea midline Respiratory/Chest: Decreased breath sounds, CTA, No accessory muscle use Cardiovascular: S1, S2, No murmur,+Pacer Abdomen/GI:Soft, Non tender, Bowel sounds present Extremities/Musculoskeletal:normal inspection, 1+ Pedal edema Neurologic/Psych:AAOX3, grossly no focal neurological deficits Skin: normal color, warm Results & Data Results & Data Vital Signs (Past 12 Hours) Vital Signs Temp Pulse Pulse Resp BP Pulse Ox O2 Del Method 07/03/23 15:08 73 18 92 Room Air 07/03/23 11:00 37.4 C 80 18 152/75 H 89 L Room Air 07/03/23 10:29 69 15 87 L Room Air 07/03/23 09:48 69 16 153/76 H 92 Room Air 07/03/23 09:33 69 16 141/75 H 92 Room Air 07/03/23 09:28 71 16 116/63 99 Room Air 07/03/23 08:32 68 07/03/23 08:19 36.6 C 78 16 140/62 91 Nasal Cannula 07/03/23 07:02 71 18 89 L Nasal Cannula 07/03/23 06:58 36.7 C 68 19 127/69 91 Nasal Cannula 07/03/23 03:37 36.8 C 70 18 115/68 93 Nasal Cannula O2 Flow Rate FiO2 07/03/23 15:08 07/03/23 11:00 07/03/23 10:29 21 07/03/23 09:48 07/03/23 09:33 07/03/23 09:28 07/03/23 08:32 07/03/23 08:19 2 07/03/23 07:02 2 07/03/23 06:58 1 07/03/23 03:37 1.5 Laboratory Results Short CBC 07/03/23 Range/Units 04:31 WBC 5.56 (4.8-10.8) K/ul Hgb 9.9 L (12.0-16.0) g/dl Hct 34.0 L (37.0-47.0) % Plt Count 200 (130-400) K/uL [facility] 07/03/23 04:31 Sodium 138 Potassium 4.3 Chloride 102 Carbon Dioxide 30 BUN 21 Creatinine 0.75 Glucose 91 Calcium 9.0
[2023-07-03] MEDS: APIXABAN 5 MG TABLET PO SCH (21:25)
[2023-07-04 06:42] LABS: Hematocrit (blood only) 35.1 % (37.0-47.0); Hemoglobin 10.4 g/dl (12.0-16.0); Mean Corpuscular Hgb Conc 29.6 g/dL (32.0-36.0); Mean Corpuscular Volume 80.9 fL (80.0-100.0); Mean Platelet Volume 9.9 fL (9.4-12.4); Platelet Count 205 K/uL (130-400); RDW Coefficient of Variation 23.1 % (11.5-14.5); RDW Standard Deviation 58.5 fL (36.4-46.3); Red Blood Count 4.34 M/uL (4.20-5.40); White Blood Count 5.03 K/ul (4.8-10.8)
[2023-07-04 07:18] LABS: Calcium 9.1 mg/dl (8.6-10.3); Creatinine Clr Calc Pharmacy 45.2 ml/min; Est GFR (African American) 63.4 ml/min; Est GFR (Non-African American) 54.7 ml/min; Potassium 4.3 mmol/L (3.5-5.1)
[2023-07-04] MEDS: CLOPIDOGREL BISULFATE 75 MG TAB PO SCH (08:20)
[2023-07-04] MEDS: PANTOprazole 40 MG TAB PO SCH (08:20)
--- NOTE | 2023-07-04 11:49 | Hospitalist Progress Note ---
Date of Service July 04, 2023 Assessment & Plan (1) Symptomatic anemia: (2) Iron deficiency anemia: Plan: Patient 78-year-old female with PMH HTN, HLD, diet-controlled DM II, CKD III, CVA, CAD s/p stent, history of cardiomyopathy, s/p ICD, seizure disorder, paroxysmal atrial fibrillation, anticoagulated on Eliquis, history of DVT 09/2022, COPD, tobacco use, and others listed below presented to ER with complaint of generalized weakness x 1 week. Denies melena or hematochezia. Known iron deficiency anemia on outpatient labs in 02/2023. Symptomatic anemia Iron deficiency anemia Generalized weakness due to above Suspected occult GI bleed --CT ABD: Showed diverticulosis without acute diverticulitis. No small bowel obstruction. No free intraperitoneal air. S/P 2 unit PRBCs S/P IV Venofer X 3 S/P EGD: Normal esophagus. Z-line regular. Normal stomach. Biopsied. Normal duodenal bulb and second portion of the duodenum. Biopsied. S/P Colonoscopy:The examined portion of the terminal ileum appeared normal. The examined colon appeared normal. One 6 mm polyp in the descending colon, removed with a cold snare. Resected and retrieved. Internal hemorrhoids. The examination was otherwise normal on direct and retroflexion views. -- Pathology: Tubular adenoma Appreciate GI input Monitor H&H and transfuse as needed Continue PPI Plavix, Eliquis--will resume today. Okay with GI to resume. Discussed on 06/22 07/15 Hb 10.4 today Monitor CBC/bleeding issues Plan to discharge home today (3) COPD exacerbation: (4) Acute hypoxic respiratory failure: Plan: Acute on chronic respiratory failure with hypoxia Chronic oxygen dependency--was prescribed 2 L: Patient currently not using as recommended Likely multifactorial secondary to COPD, CHF exacerbation --CXR: Cardiomegaly with pulmonary vascular congestion --Negative biofire respiratory panel. --Procalcitonin: <0.05 Currently no wheezing on exam Continue nebs and doxycycline Supplemental oxygen to keep sats 88 to 92% Will consider adding steroids if develops wheezing Titrate oxygen as able Clinically improved Wide-complex tachycardia H/O P.Afib Asymptomatic Metoprolol dose increased to 50 mg twice a day On Eliquis for anticoagulation Abnormal CT Infrarenal abdominal aortic aneurysm 3 cm Nonobstructing 5 mm right renal calculus Incidental findings on CT Follow-up as outpatient Chronic lumbago Lumbar x-ray:No acute bony abnormality is identified involving the lumbar spine. Osteopenia and mild spondylotic change as above. Pain control as needed (5) Ischemic cardiomyopathy: Plan: Acute on chronic diastolic heart failure--POA --CXR:Cardiomegaly with pulmonary vascular congestion. --ECHO: EF 60 to 65%. Abnormal septal, apical wall motion reflects pacemaker activation. Basal inferior wall is hypokinetic. Mild aortic valve sclerosis. Mild aortic regurgitation. Trace mitral, tricuspid regurgitation. Estimated systolic pulmonary pressure 36 mmHg. Grade 2 diastolic dysfunction --BNP improved after IV Lasix Monitor I's and O's, daily weight Received IV Lasix Continue home diuretics Appreciate cardiology input Monitor volume status closely (6) History of implantable cardioverter-defibrillator (ICD) placement: Plan: Monitor on telemetry Chronic troponin elevation Likely demand ischemia secondary to hypoxia, volume overload Denies any chest pain Echo as above (7) Elevated troponin: (8) CAD (coronary artery disease): Plan: History ischemic cardiomyopathy. S/P ICD. S/P Stent 01/08/2023 echo: EF: 65-70%, mild LVH Troponin: 80-->87. EKG paced rhythm. Denies CP. Possible demand ischemia Trend troponin Echo as above Continue metoprolol succinate, atorvastatin, Plavix (9) Abnormal finding on urinalysis: Plan: Ruled out UTI Urine culture negative Empirically received Rocephin (10) Paroxysmal atrial fibrillation: Plan: Anticoagulated on Eliquis Continue metoprolol succinate (11) HTN (hypertension): Plan: Stable Continue lisinopril, metoprolol succinate Lisinopril dose decreased to 10 mg daily Metoprolol dose adjusted as above (12) Hyperlipidemia: Plan: Continue atorvastatin (13) History of CVA (cerebrovascular accident): Plan: Continue atorvastatin, Plavix (14) CKD (chronic kidney disease), stage III: Plan: Creatinine at baseline Monitor renal function Avoid nephrotoxic agents as able (15) Diabetes mellitus, type II: Plan: A1c: 5.8 on 03/02/2023 Diet controlled Monitor BGs Insulin sliding scale while hospitalized (16) Seizure disorder: Plan: Denies recent seizure-like activity Continue Arturo (17) History of DVT (deep vein thrombosis): Plan: History lower extremity DVT 09/2022 on Eliquis (18) Tobacco use: Plan: Ongoing tobacco use disorder Continue nicotine patch Encouraged smoking cessation DVT Px Eliquis Code Status DNR/DNI Deposition: Home Admission and Anticipated Discharge Date Admission Date: June 28, 2023 Subjective Patient is seen and examined at bedside Doing well Eager to get discharged No bleeding issues Denies any chest pain, dyspnea, dizziness, abdominal pain, vomiting Plan to discharge home today Review of Systems Review of Systems: All systems reviewed & are unremarkable except as noted in Subjective Physical Exam Physical Exam: Physical Exam: Vitals signs as noted above General Appearance:Moderately built and nourished, no apparent distress Head: normocephalic, Atraumatic Eyes: normal inspection, EOMI, +Pallor Neck: supple, Trachea midline Respiratory/Chest: Decreased breath sounds, CTA, No accessory muscle use Cardiovascular: S1, S2, No murmur,+Pacer Abdomen/GI:Soft, Non tender, Bowel sounds present Extremities/Musculoskeletal:normal inspection, 1+ Pedal edema Neurologic/Psych:AAOX3, grossly no focal neurological deficits Skin: normal color, warm Results & Data Results & Data Vital Signs (Past 12 Hours) Vital Signs Temp Pulse Pulse Resp BP Pulse Ox O2 Del Method 07/04/23 10:51 63 18 90 Room Air 07/04/23 08:00 61 07/04/23 08:00 Room Air 07/04/23 07:27 64 18 90 Nasal Cannula 07/04/23 07:24 36.6 C 65 18 124/72 91 Nasal Cannula 07/04/23 04:42 36.8 C 70 20 131/72 95 Nasal Cannula O2 Flow Rate 07/04/23 10:51 07/04/23 08:00 07/04/23 08:00 07/04/23 07:27 1 07/04/23 07:24 1 07/04/23 04:42 2 Laboratory Results Short CBC 07/04/23 Range/Units 05:33 WBC 5.03 (4.8-10.8) K/ul Hgb 10.4 L (12.0-16.0) g/dl Hct 35.1 L (37.0-47.0) % Plt Count 205 (130-400) K/uL BMP 07/04/23 05:33 Sodium 138 Potassium 4.3 Chloride 102 Carbon Dioxide 28 BUN 30 H Creatinine 1.00 Glucose 101 H Calcium 9.1
--- NOTE | 2023-07-04 11:57 | Discharge Summary ---
Date of Service July 04, 2023 Admission HPI Per Admitting Provider Patient 78-year-old female with PMH HTN, HLD, diet-controlled DM II, CKD III, CVA, CAD s/p stent, history of cardiomyopathy, s/p ICD, seizure disorder, paroxysmal atrial fibrillation, anticoagulated on Eliquis, history of DVT 09/2022, COPD, tobacco use, and others listed below presented to ER with complaint of generalized weakness x 1 week. History obtained from patient as well as outpatient and inpatient chart review. Patient states for the past week has had generalized weakness. States can only walk a few steps without becoming quickly fatigued. Patient also reports increased shortness of breath past couple days. Patient states past couple days has had productive cough but is unable to describe sputum, and worsening exertional dyspnea. Feeling lightheaded with ambulating. Denies rhinorrhea. Admits to still smoking but states is trying to cut back. Since feeling SOB states only smoked 2 cigarettes yesterday. She states she has home oxygen to use as needed but doesn't use it. She also reports has gained weight. She states weighed self at home 2 days ago and was 167 pounds and she thinks she weighed around 150 pounds a couple of months ago. Does not weigh herself regularly. States some decreased appetite past couple of days. Denies fever/chills, diaphoresis, N/V/D/C, melena, hematochezia, syncope, vision changes, neck pain, CP, orthopnea, palpitations, hemoptysis, sore throat, otalgia, rhinorrhea, abdominal pain, paresthesias, weakness, extremity weakness, extremity edema, rashes, dysuria, hematuria, urinary frequency. Admission Exam Per Admitting Provider General: no acute distress, WDWN Head: normocephalic, atraumatic Eyes: conjunctiva non-injected, pale conjunctiva, anicteric ENT: normal inspection external ears, nose, mucous membranes moist Neck: supple, trachea midline, non-tender Lungs: clear, no respiratory distress on 3L via NC with O2 sat 99%, +expiratory wheezing, no rhonchi/rales noted CV: RRR, no murmur, 1+ pretibial edema Abd: normal BS, soft, non-tender Ext: no cyanosis, no calf tenderness Neuro: A&O x 3, no focal deficits noted, normal affect Skin: pale, warm, dry Principal Diagnosis Symptomatic anemia Iron deficiency anemia Acute on chronic respiratory failure with hypoxia Acute COPD exacerbation Wide-complex tachycardia Acute on chronic diastolic heart failure Tubular adenoma polyp of colon Discharge Data Allergies Allergy/AdvReac Type Severity Reaction Status Date / Time NSAIDS (Non-Steroidal AdvReac Severe GI ISSUES Verified 06/28/23 18:11 Anti-Inflamma Lvcuujg-KYH-FwY Reductase AdvReac Severe LIVER Verified 06/28/23 18:11 Inhibitor FUNCTION [Gmlutdl-Dbq-Cld Reductase ELEVATES Inhibitor] isosorbide AdvReac Intermediate VOMIT/HEADA Verified 06/28/23 18:11 CARLOS tramadol AdvReac Intermediate VOMITING Verified 06/28/23 18:11 Consultations 06/28/23 20:12 ED Decision to Admit Stat 06/29/23 08:00 Consult Gastroenterology Routine 06/30/23 09:15 Consult Cardiology Routine Procedures Performed Operation Date: 07/03/23 16:30 Actual Procedures p EGD Biopsy Cytology - Queenie Gonzalez MD s Colonoscopy Polypectomy - Queenie Gonzalez MD Laboratory Results WBC 5.03 K/ul (4.8-10.8) 07/04/23 05:33 RBC 4.34 M/uL (4.20-5.40) 07/04/23 05:33 Hgb 10.4 g/dl (12.0-16.0) L 07/04/23 05:33 Hct 35.1 % (37.0-47.0) L 07/04/23 05:33 MCV 80.9 fL (80.0-100.0) 07/04/23 05:33 MCH 24.0 pg (25.0-34.0) L 07/04/23 05:33 MCHC 29.6 g/dL (32.0-36.0) L 07/04/23 05:33 RDW Std Deviation 58.5 fL (36.4-46.3) H 07/04/23 05:33 RDW Coeff of Julia 23.1 % (11.5-14.5) H 07/04/23 05:33 Plt Count 205 K/uL (130-400) 07/04/23 05:33 MPV 9.9 fL (9.4-12.4) 07/04/23 05:33 Immature Gran % (Auto) 0.7 % 06/28/23 18:00 Neut % (Auto) 75.7 % 06/28/23 18:00 Lymph % (Auto) 11.7 % 06/28/23 18:00 Perry % (Auto) 11.5 % 06/28/23 18:00 Eos % (Auto) 0.0 % 06/28/23 18:00 Baso % (Auto) 0.4 % 06/28/23 18:00 Reticulocyte % (Auto) 2.56 % (0.50-2.00) H 06/28/23 18:00 Neut # (Auto) 3.44 K/uL (1.40-6.50) 06/28/23 18:00 Lymph # (Auto) 0.53 K/uL (1.20-3.40) L 06/28/23 18:00 Perry # (Auto) 0.52 K/uL (0.11-0.59) 06/28/23 18:00 Eos # (Auto) 0.00 K/uL (0.00-0.50) 06/28/23 18:00 Baso # (Auto) 0.02 K/uL (0.00-0.20) 06/28/23 18:00 Reticulocyte # 0.080 10^6/uL (0.020-0.100) 06/28/23 18:00 Immature Gran # (Auto) 0.03 K/uL (0.01-0.20) 06/28/23 18:00 Absolute Nucleated RBC 0.02 K/uL (0.00-0.12) 07/01/23 03:41 Nucleated RBC % (auto) 0.3 % 07/01/23 03:41 Polychromasia 1+ 06/28/23 18:00 Hypochromasia Present 06/28/23 18:00 Tear Drop Cells 1+ 06/28/23 18:00 Ovalocytes 1+ 06/28/23 18:00 PT 11.9 Seconds (9.0-12.0) 06/28/23 18:01 INR 1.1 (0.9-1.1) 06/28/23 18:01 Sodium 138 mmol/L (136-145) 07/04/23 05:33 Potassium 4.3 mmol/L (3.5-5.1) 07/04/23 05:33 Chloride 102 mmol/L (98-107) 07/04/23 05:33 Carbon Dioxide 28 mmol/L (21-32) 07/04/23 05:33 Anion Gap 8 (3-11) 07/04/23 05:33 BUN 30 mg/dl (6-23) H 07/04/23 05:33 Creatinine 1.00 mg/dl (0.6-1.2) 07/04/23 05:33 Est Cr Clr Drug Dosing 45.2 ml/min 07/04/23 05:33 Est GFR ( Amer) 63.4 ml/min 07/04/23 05:33 Est GFR (Non-Af Amer) 54.7 ml/min 07/04/23 05:33 BUN/Creatinine Ratio 30.0 (10-20) H 07/04/23 05:33 Glucose 101 mg/dl (70-99(Fasting)) H 07/04/23 05:33 POC Glucose 122 mg/dl (70-99) H 07/04/23 11:48 Lactate 0.9 mmol/L (0.4-2.0) 06/28/23 19:45 Calcium 9.1 mg/dl (8.6-10.3) 07/04/23 05:33 Magnesium 2.2 mg/dl (1.7-2.4) 07/02/23 11:07 Iron 11 mcg/dl (35-150) L 06/28/23 18:00 Unsaturated IBC 515 mcg/dl (155-355) H 06/28/23 18:00 Transferrin 438 mg/dl (200-360) H 06/28/23 18:00 Ferritin 3.8 ng/ml (8-388) L 06/28/23 18:00 Total Bilirubin 0.5 mg/dl (0.2-1.0) 07/02/23 11:07 AST 15 U/L (13-39) 07/02/23 11:07 ALT 6 U/L (7-52) L 07/02/23 11:07 Alkaline Phosphatase 69 U/L (34-104) 07/02/23 11:07 Troponin I High Sens 94.9 pg/ml (0-14) H* 06/29/23 02:35 B-Natriuretic Peptide 254 pg/ml (0-100) H 06/30/23 04:08 Total Protein 7.1 gm/dl (6.0-8.3) 07/02/23 11:07 Albumin 4.3 gm/dl (3.4-5.0) 07/02/23 11:07 Globulin 2.8 gm/dl (2.5-4.0) 07/02/23 11:07 Albumin/Globulin Ratio 1.5 (0.9-2) 07/02/23 11:07 Lipase 9 U/L (11-82) L 06/28/23 18:00 Procalcitonin < 0.05 ng/ml (0-0.5) 06/28/23 19:45 Urine Color Yellow 06/28/23 Unknown Urine Appearance Clear (Clear) 06/28/23 Unknown Urine pH 6.0 (4.5-7.5) 06/28/23 Unknown Ur Specific Twilight 1.012 (1.000-1.030) 06/28/23 Unknown Urine Protein Trace (Negative) H 06/28/23 Unknown Urine Glucose (UA) Negative (Negative) 06/28/23 Unknown Urine Ketones Negative (Negative) 06/28/23 Unknown Urine Blood Negative (Negative) 06/28/23 Unknown Urine Nitrite Negative (Negative) 06/28/23 Unknown Urine Bilirubin Negative (Negative) 06/28/23 Unknown Urine Urobilinogen Negative (Negative) 06/28/23 Unknown Ur Leukocyte Esterase Negative (Negative) 06/28/23 Unknown Urine WBC (Auto) 1-5 /hpf (0-5) 06/28/23 Unknown Urine RBC (Auto) 0-4 /hpf (0-4) 06/28/23 Unknown U Hyaline Cast (Auto) 1-5 /lpf (0-5) 06/28/23 Unknown U Epithel Cells (Auto) >30 /lpf (0-5) H 06/28/23 Unknown Urine Bacteria (Auto) 1+ (Negative) H 06/28/23 Unknown Urine Yeast Not Reportable 06/28/23 Unknown Adenovirus (PCR) Not Detected (NotDetected) 06/28/23 18:10 B. pertussis DNA (PCR) Not Detected (NotDetected) 06/28/23 18:10 B.parapertussis DNA PCR Not Detected (NotDetected) 06/28/23 18:10 C. pneumoniae DNA (PCR) Not Detected (NotDetected) 06/28/23 18:10 Coronavirus OC43 (PCR) Not Detected (NotDetected) 06/28/23 18:10 Coronavirus HKU1 (PCR) Not Detected (NotDetected) 06/28/23 18:10 Coronavirus 229E (PCR) Not Detected (NotDetected) 06/28/23 18:10 SARS-CoV-2 (PCR) Not Detected (NotDetected) 06/28/23 18:10 Coronavirus NL63 (PCR) Not Detected (NotDetected) 06/28/23 18:10 Human Metapneumovir PCR Not Detected (NotDetected) 06/28/23 18:10 Influenza Type A (PCR) Not Detected (NotDetected) 06/28/23 18:10 Influenza Type B (PCR) Not Detected (NotDetected) 06/28/23 18:10 M. pneumoniae (PCR) Not Detected (NotDetected) 06/28/23 18:10 Parainfluenza 1 (PCR) Not Detected (NotDetected) 06/28/23 18:10 Parainfluenza 2 (PCR) Not Detected (NotDetected) 06/28/23 18:10 Parainfluenza 3 (PCR) Not Detected (NotDetected) 06/28/23 18:10 Parainfluenza 4 (PCR) Not Detected (NotDetected) 06/28/23 18:10 RSV (PCR) Not Detected (NotDetected) 06/28/23 18:10 Entero/Rhino (PCR) Not Detected (NotDetected) 06/28/23 18:10 Blood Type A Positive 06/28/23 19:45 Antibody Screen NEGATIVE 06/28/23 19:45 Crossmatch See Detail 06/28/23 19:45 Impressions Chest X-Ray 06/28/23 17:52 XR chest 1V portable HISTORY: 78 years-old Female weakness acute weakness COMPARISON: 01/11/2023 TECHNIQUE: AP view the chest FINDINGS: Cardiac silhouette is enlarged. Left subclavian pacer/AICD. Atherosclerosis of the aorta. Pulmonary vascular congestion. No pneumothorax pleural effusion or airspace consolidation. Bones appear grossly intact. IMPRESSION: Cardiomegaly with pulmonary vascular congestion. ACT 112: Negative or not required by law. The above report was generated using voice recognition software. It may contain grammatical, syntax or spelling errors. Electronically signed by: Gurdeep Claros M.D. 06/28/2023 6:39 PM Abdomen/Pelvis CT 06/28/23 19:29 Exam(s): CT ABDOMEN + PELVIS With Contrast IV Amt: 82 ml optiray 320 EXAM: CT Abdomen and Pelvis With Intravenous Contrast CLINICAL HISTORY: Reason for exam: anemia, weakness, nausea. TECHNIQUE: Axial computed tomography images of the abdomen and pelvis with intravenous contrast. CTDI is 26.31 mGy and DLP is 1139 mGy-cm. Automated exposure control was utilized for the study. A dose lowering technique was utilized adhering to the principles of ALARA. CONTRAST: Patient received 82 ml optiray 320 of IV contrast COMPARISON: CT abdomen and pelvis January 12, 2023. FINDINGS: Lung bases: Unremarkable. No mass. No consolidation. ABDOMEN: Liver: Unremarkable. No mass. Gallbladder and bile ducts: Cholecystectomy. No ductal dilation. Pancreas: Unremarkable. No mass. No ductal dilation. Spleen: Unremarkable. No splenomegaly. Adrenals: Unremarkable. No mass. Kidneys and ureters: Nonobstructing 5 mm RIGHT mid pole renal calculus. Renal cysts. Stomach and bowel: Diverticulosis, without acute diverticulitis. No small bowel obstruction. No free intraperitoneal air. PELVIS: Appendix: No findings to suggest acute appendicitis. Bladder: Unremarkable. No mass. Reproductive: Unremarkable as visualized. ABDOMEN and PELVIS: Intraperitoneal space: Unremarkable. No free air. No significant fluid collection. Bones/joints: Degenerative changes of the spine. No acute fracture. No dislocation. Soft tissues: Unremarkable. Vasculature: Infrarenal abdominal aortic aneurysm, measures 3.0 cm. Atherosclerotic changes of the aorta. Lymph nodes: Unremarkable. No enlarged lymph nodes. Tubes, lines and devices: Pacemaker leads. IMPRESSION: 1. Infrarenal abdominal aortic aneurysm, measures 3.0 cm. 2. Cholecystectomy. 3. Nonobstructing 5 mm RIGHT mid pole renal calculus. 4. Diverticulosis, without acute diverticulitis. No small bowel obstruction. No free intraperitoneal air. Electronically signed by: Sukhdev Callahan MD 06/28/23 20:[address] 06/28/23 19:29 Exam(s): CT HEAD Without Contrast EXAM: CT Head Without Intravenous Contrast CLINICAL HISTORY: Reason for exam: headache. TECHNIQUE: Axial computed tomography images of the head/brain without intravenous contrast. CTDI is 36 mGy and DLP is 546.36 mGy-cm. Automated exposure control was utilized for the study. A dose lowering technique was utilized adhering to the principles of ALARA. COMPARISON: No relevant prior studies available. FINDINGS: No acute intracranial hemorrhage. No midline shift or mass effect. The territorial ramirez-white matter differentiation is maintained throughout. Age-related cerebral volume loss. Periventricular and subcortical white matter hypoattenuation, consistent with chronic microangiopathy. The visualized orbits appear grossly unremarkable. The calvarium is intact. The visualized paranasal sinuses and mastoid air cells are grossly clear. IMPRESSION: No acute intracranial hemorrhage, midline shift, or mass effect. Electronically signed by: Sukhdev Callahan MD 06/28/23 20:40 PM Lumbar Spine X-Ray 07/01/23 11:26 LUMBAR SPINE 3 VIEWS CLINICAL HISTORY: Low back pain. FINDINGS: 3 views of the lumbar spine are correlated with abdominal CT dated 06/28/2023. The skeletal structures are osteopenic. There is no radiographic evidence of fracture or malalignment involving the lumbar spine. Vertebral body height and alignment are maintained. Anterior and lateral marginal osteophytes are seen throughout. The transverse and spinous processes appear intact. Facet arthropathy is noted in the lower lumbar region. There is moderate disc space narrowing at L3-L4. Mild narrowing is seen at the remaining lumbar levels. The visualized bony pelvis appears intact. Sclerotic change is noted in the sac roiliac joints. Cholecystectomy clips are identified in the right upper quadrant. There is advanced atherosclerotic calcification of the abdominal aorta. There is a small infrarenal abdominal aneurysm, which was better assessed on the recent CT scan. No bowel obstruction is seen. Phleboliths are noted in the pelvis. The heart is enlarged and pacemaker leads are partially imaged. IMPRESSION: 1. No acute bony abnormality is identified involving the lumbar spine. 2. Osteopenia and mild spondylotic change as above. Dictated: 07/01/2023 3:39 PM Transcribed: 07/01/2023 3:58 PM Jakub [id number] [email or web address] Electronically signed by: Saeed Guallpa M.D. 07/01/2023 4:00 PM Ordered Studies 06/28/23 19:29 CT abd pelvis IV con only Stat CT head/brain wo con Stat Hospital Course (1) Symptomatic anemia: (2) Iron deficiency anemia: Patient 78-year-old female with PMH HTN, HLD, diet-controlled DM II, CKD III, CVA, CAD s/p stent, history of cardiomyopathy, s/p ICD, seizure disorder, paroxysmal atrial fibrillation, anticoagulated on Eliquis, history of DVT 09/2022, COPD, tobacco use, and others listed below presented to ER with complaint of generalized weakness x 1 week. Denies melena or hematochezia. Known iron deficiency anemia on outpatient labs in 02/2023. Symptomatic anemia Iron deficiency anemia Generalized weakness due to above Suspected occult GI bleed --CT ABD: Showed diverticulosis without acute diverticulitis. No small bowel obstruction. No free intraperitoneal air. S/P 2 unit PRBCs S/P IV Venofer X 3 S/P EGD: Normal esophagus. Z-line regular. Normal stomach. Biopsied. Normal duodenal bulb and second portion of the duodenum. Biopsied. S/P Colonoscopy:The examined portion of the terminal ileum appeared normal. The examined colon appeared normal. One 6 mm polyp in the descending colon, removed with a cold snare. Resected and retrieved. Internal hemorrhoids. The examination was otherwise normal on direct and retroflexion views. -- Pathology: Tubular adenoma Appreciate GI input Monitor H&H and transfuse as needed Continue PPI Plavix, Eliquis--will resume today. Okay with GI to resume. Discussed on 07/03/23 Hb 10.4 today Monitor CBC/bleeding issues Plan to discharge home today (3) COPD exacerbation: (4) Acute hypoxic respiratory failure: Acute on chronic respiratory failure with hypoxia Chronic oxygen dependency--was prescribed 2 L: Patient currently not using as recommended Likely multifactorial secondary to COPD, CHF exacerbation --CXR: Cardiomegaly with pulmonary vascular congestion --Negative biofire respiratory panel. --Procalcitonin: <0.05 Currently no wheezing on exam Continue nebs and doxycycline Supplemental oxygen to keep sats 88 to 92% Will consider adding steroids if develops wheezing Titrate oxygen as able Clinically improved Wide-complex tachycardia H/O P.Afib Asymptomatic Metoprolol dose increased to 50 mg twice a day On Eliquis for anticoagulation Abnormal CT Infrarenal abdominal aortic aneurysm 3 cm Nonobstructing 5 mm right renal calculus Incidental findings on CT Follow-up as outpatient Chronic lumbago Lumbar x-ray:No acute bony abnormality is identified involving the lumbar spine. Osteopenia and mild spondylotic change as above. Pain control as needed (5) Ischemic cardiomyopathy: Acute on chronic diastolic heart failure--POA --CXR:Cardiomegaly with pulmonary vascular congestion. --ECHO: EF 60 to 65%. Abnormal septal, apical wall motion reflects pacemaker activation. Basal inferior wall is hypokinetic. Mild aortic valve sclerosis. Mild aortic regurgitation. Trace mitral, tricuspid regurgitation. Estimated systolic pulmonary pressure 36 mmHg. Grade 2 diastolic dysfunction --BNP improved after IV Lasix Monitor I's and O's, daily weight Received IV Lasix Continue home diuretics Appreciate cardiology input Monitor volume status closely (6) History of implantable cardioverter-defibrillator (ICD) placement: Monitor on telemetry Chronic troponin elevation Likely demand ischemia secondary to hypoxia, volume overload Denies any chest pain Echo as above (7) Elevated troponin: (8) CAD (coronary artery disease): History ischemic cardiomyopathy. S/P ICD. S/P Stent 01/08/2023 echo: EF: 65-70%, mild LVH Troponin: 80-->87. EKG paced rhythm. Denies CP. Possible demand ischemia Trend troponin Echo as above Continue metoprolol succinate, atorvastatin, Plavix (9) Abnormal finding on urinalysis: Ruled out UTI Urine culture negative Empirically received Rocephin (10) Paroxysmal atrial fibrillation: Anticoagulated on Eliquis Continue metoprolol succinate (11) HTN (hypertension): Stable Continue lisinopril, metoprolol succinate Lisinopril dose decreased to 10 mg daily Metoprolol dose adjusted as above (12) Hyperlipidemia: Continue atorvastatin (13) History of CVA (cerebrovascular accident): Continue atorvastatin, Plavix (14) CKD (chronic kidney disease), stage III: Creatinine at baseline Monitor renal function Avoid nephrotoxic agents as able (15) Diabetes mellitus, type II: A1c: 5.8 on 03/02/2023 Diet controlled Monitor BGs Insulin sliding scale while hospitalized (16) Seizure disorder: Denies recent seizure-like activity Continue Keppra (17) History of DVT (deep vein thrombosis): History lower extremity DVT 09/2022 on Eliquis (18) Tobacco use: Ongoing tobacco use disorder Continue nicotine patch Encouraged smoking cessation DVT Px Eliquis Code Status DNR/DNI Deposition: Home Total Time Total Time Spent Total Time Spent (In Minutes): 65 minutes Discharge Plan Discharge Items Patient Disposition: Home - Self-Care Reason For Visit: ANEMIA Discharge Diagnosis: Symptomatic anemia Iron deficiency anemia Acute on chronic respiratory failure with hypoxia Acute COPD exacerbation Wide-complex tachycardia Acute on chronic diastolic heart failure Tubular adenoma polyp of colon Activity: Per Instructions section Exercise/Sports: Wait until after follow-up appointment Non-emergency contact: Primary Care Provider, College And Career Counselor and Electrodynamicist Call non-emergency contact if: you have any medication questions, your symptoms worsen, your pain is concerning for you and you have a fever Follow-up/Referrals: Roman Ennis MD [Primary Care Provider] - (Date & Time 07/07/2023 4:00 PM Provider Erica Marsh MD [facility] ) Diet: Carb Consistent or DM2 Addtl Attending Provider Instructions: Follow-up with your primary care physician Dr. Ennis Follow-up with your merchandise buyer Dr. Gonzalez in 4-6 weeks for further recommendations regarding tubular adenoma polyp of colon Follow-up with your display designer outside Dr. Marks in 3 to 4 weeks --Quit smoking Tobacco as advised. Seek immediate medical attention if your symptoms reoccur or worsen Please take all medications as instructed on discharge list below. Please call if you have any questions or problems. You can reach a [facility] hospitalist on duty at [facility] 24 hours a day by calling [phone] Call your Primary Care doctor if any of the following symptoms or problems start or get worse: * Shortness of breath or difficulty breathing * Wake up at night short of breath * Chest pain * Cough * Swelling of your hands, feet, or legs * More fatigued or tired with your normal activity * Palpitations - sudden fast heart beats WEIGHT * Weigh yourself every morning after using the bathroom. * Use the same scale. * Wear the same amount of clothing. * Write your weight down on a chart. * Call your Primary Care doctor if you gain more than 2-3 pounds in 1-2 days. MEDICATIONS * Use this discharge instruction sheet for medication instructions. * Take your medications at the time your doctor ordered. * Do not skip a dose of your medicines. * If you miss a dose of medicine, take it as soon as possible, but DO NOT DOUBLE A DOSE. * Read your medicine information when you get home. * Know all of the side effects of your medicine. If in doubt, ask your pharmacist * Call your Primary Care doctor's office if you have any side effects. * Be sure all of your doctors know what medicine and herbs you take (including cold, flu, and herbal medicine). Take the following with you to your follow-up doctor appointments: * Weight Chart * Medication List * List of questions Do not drink excessive alcohol, beer or wine. Pending Studies at Discharge: No Stand-Alone Forms: My [facility] Phon[employer], Smoking Cessation Medications and DC Order Prescriptions: New ferrous sulfate 325 mg (65 mg iron) Tablet,Delayed Release (Dr/Ec) 325 mg PO BIDM Qty: 60 1RF metoprolol succinate 50 mg Tablet Extended Release 24 Hr 50 mg PO BID Qty: 60 1RF lisinopril 10 mg Tablet 10 mg PO QAM Qty: 30 1RF Continued pantoprazole 40 mg Tablet,Delayed Release (Dr/Ec) 40 mg PO DAILYBB Qty: 30 nitroglycerin 0.4 mg Tablet, Sublingual 0.4 mg sublingual DIRECTED PRN (Reason: Chest Pain) Qty: 0 ondansetron HCl 4 mg Tablet 4 mg PO Q8H PRN (Reason: Nausea) Anoro Ellipta 62.5-25 mcg/actuation Blister With Device 1 inh INHALATION DAILY gabapentin 300 mg capsule See Rx Instructions .ROUTE .COMPLEX Rx Instructions: TAKES 300 MG QAM & NOON, THEN 600 MG QHS. clopidogrel 75 mg Tablet 75 mg PO QAM Qty: 30 0RF Eliquis 5 mg Tablet 5 mg PO BID Qty: 60 0RF levetiracetam 500 mg tablet 500 mg PO AMHS oxycodone 5 mg tablet 5 mg PO Q6H PRN (Reason: Severe Pain (Scale Score 7-10)) atorvastatin 40 mg tablet 20 mg PO DAILY trazodone 50 mg tablet 25 mg PO HS cyanocobalamin (vitamin B-12) [Vitamin B-12] 1,000 mcg Tablet 1,000 mcg PO QAM furosemide 40 mg tablet See Rx Instructions .ROUTE .COMPLEX Rx Instructions: TAKES 40 MG QAM, THEN 20 MG EVERY DAY AT NOON. Discontinued lisinopril 20 mg tablet 20 mg PO QAM metoprolol succinate 25 mg tablet extended release 24 hr 25 mg PO BID Discharge Orders: Discharge Order (Routine); Ordered 07/04/23 Ordered By: Lam Freed Admission Data Admit Date/Time: 06/28/23 21:02 Attending Provider: Lam Freed Admit Provider: Mackenzie Roach Primary Care Provider: Roman Ennis Other Providers: Mackenzie Raoch; Roxy Roberts; Eunice Davila; Trent Wu; Davis Marks; Timothy Healy; Forest Jones; Joshua Henson; Nikole Crenshaw; Precious Sifuentes; Eunice Mcdaniel; Sean Ferrari; Quintin Levy; Alberta Mills; Clara Geller; Belle Cullen; Sriram Moffett
[2023-07-04] MEDS: oxyCODONE HCL IR 5 MG TAB (IMMEDIATE RELEASE) PO ONE (15:02)
[2023-07-04] MEDS ORDERED: FERROUS SULFATE 325 MG TAB PO SCH (17:00)
== END 2023-07-04 17:06 | disposition home or self-care (01) | DRG 377 ==
LOC: EDSEX → ED 17:26 → EDINP 21:02 → SUATTDRO 21:02 → 1E 22:51 → 4W 07-01 18:44 → UNDODISIN 07-04 12:58

== ENCOUNTER 2023-10-18 04:04 | Inpatient (IN) ==
[2023-10-18] MEDS: MoRPHine SULFATE 4 MG/ML 1 ML CARP\\VIAL IV STA ×2 (04:37→07:31)
[2023-10-18] MEDS: ONDANSETRON INJ 2 MG/ML 2 ML VIAL IV STA (04:37)
[2023-10-18 04:40] LABS: Basophils # (auto) 0.02 K/uL (0.00-0.20); Basophils % (auto) 0.4 %; Eosinophils # (auto) 0.07 K/uL (0.00-0.50); Eosinophils % (auto) 1.3 %; Hematocrit (blood only) 45.4 % (37.0-47.0); Hemoglobin 15.1 g/dl (12.0-16.0); Immature Granulocytes # (auto) 0.02 K/uL (0.01-0.20); Immature Granulocytes % (auto) 0.4 %; Lymphocytes # (auto) 1.05 K/uL (1.20-3.40); Lymphocytes % (auto) 19.1 %; Mean Corpuscular Hgb Conc 33.3 g/dL (32.0-36.0); Mean Corpuscular Volume 99.1 fL (80.0-100.0); Mean Platelet Volume 10.3 fL (9.4-12.4); Monocytes # (auto) 0.47 K/uL (0.11-0.59); Monocytes % (auto) 8.5 %; Neutrophils # (auto) 3.87 K/uL (1.40-6.50); Neutrophils % (auto) 70.3 %; Platelet Count 155 K/uL (130-400); RDW Coefficient of Variation 14.4 % (11.5-14.5); RDW Standard Deviation 49.6 fL (36.4-46.3); Red Blood Count 4.58 M/uL (4.20-5.40)
[2023-10-18 04:55] LABS: Albumin Globulin Ratio 1.6 (0.9-2); Albumin Level 4.1 gm/dl (3.4-5.0); Bilirubin,Total 0.4 mg/dl (0.2-1.0); Creatinine Clr Calc Pharmacy 44.5 ml/min; Est GFR (African American) 63.4 ml/min; Est GFR (Non-African American) 54.7 ml/min; Globulin 2.6 gm/dl (2.5-4.0); Potassium 3.5 mmol/L (3.5-5.1); Total Protein 6.7 gm/dl (6.0-8.3)
[2023-10-18 05:04] LABS: INR 1.1 (0.9-1.1); Partial Thromboplastin Time 28 Seconds (21-31); Prothrombin Time 11.4 Seconds (9.0-12.0)
--- NOTE | 2023-10-18 06:26 | Emergency Department Note ---
Impression & Plan Closed fracture of greater trochanter of left femur, Fall ED Provider Note CHIEF COMPLAINT: Left hip pain, fall HISTORY OF PRESENT ILLNESS: This 62-year-old female patient presents to the emergency department via ambulance for evaluation of left hip pain after fall. The patient states she was walking into her garage to smoke a cigarette. She notes that she stumbled and fell. She states her leg went out from under her and she landed on the left hip. She is complaining of severe pain in the left hip. She was unable to bend her knee or utilize the left lower extremity to get up and had to contact 911. The patient denies any neck or back pain. She did not strike her head. She is on anticoagulants due to a DVT which was diagnosed last year. The patient denies any numbness or tingling different than her normal neuropathy. She did not take any medication for pain. She is having difficulty moving the left lower extremity due to the pain. No history of hip fracture or dislocation. No history of hip replacement. REVIEW OF SYSTEMS: A 10 system review of systems was performed with positives and pertinent negatives listed in the history of present illness. All other systems were reviewed and are negative. ALLERGIES: NSAIDs, statins, isosorbide, tremor PHYSICAL EXAM: VITALS: Vitals are noted on the nurse's note and reviewed by myself. Vital signs stable. GENERAL: This is a 78-year-old female, in no acute distress, nondiaphoretic, well-developed well-nourished. SKIN: The skin was without rashes, erythema, edema, or bruising. There is no tenting of the skin. Capillary refill less than 2 seconds. HEAD: Normocephalic atraumatic. EARS: External auditory canals clear, tympanic membranes pearly ramirez without erythema or effusion bilaterally. No hemotympanum. Negative roper sign EYES: Pupils equal round and reactive to light and accommodation. Conjunctivae without injection, sclerae without icterus. Extraocular movements intact. NOSE: Patent, turbinates without inflammation or discharge. No sinus tenderness. MOUTH: Mucous membranes moist. Tonsils are not enlarged. Pharynx without erythema or exudate. Uvula midline. Airway patent. Tongue does not deviate. NECK: Supple without nuchal rigidity. No lymphadenopathy. Cervical spine is nontender. No JVD. HEART: Regular rate and rhythm without murmurs gallops or rubs. LUNGS: Clear to auscultation bilaterally without wheezes, rales or rhonchi. No retractions or accessory muscle use. ABDOMEN: Positive bowel sounds x 4. Soft, nontender, without masses or organomegaly. Estrada sign negative. No guarding or rebound tenderness. MUSCULOSKELETAL: Tenderness to palpation of the left hip. The patient is unable to flex her left lower extremity at the hip. She is unable to abduct the left lower extremity. No muscle atrophy, erythema, or edema noted. Full range of motion without joint tenderness in all other extremities. Strength 3/5 in the LLE, 5/5 in all other extremities. NEURO: Patient was alert and oriented to person place and time. Normal sensation to light and sharp touch. Deep tendon reflexes 2+ throughout. No focal neurological deficits. VASCULAR: Non-palpable DP pulse in the LLE, which the patient states is chronic. An order was placed for continuous cardiac tech. The monitor showed a normal sinus rhythm at a ventricular rate of 73 bpm, per my interpretation. EKG was reviewed by myself and found to be a paced rhythm at a rate of 76 beats per minute and per my interpretation reveals no ST elevation or depression. No T-wave inversion. When compared to EKG from 06/30/2023, there is no significant change. X-ray of the Chest without acute findings, no pneumothorax, per my interpretation. X-ray of the left hip shows questionable fracture, per my interpretation. CT imaging as interpreted by myself and the radiologist revealed acute nondisplaced fracture of the greater trochanter of the left femur with no intertrochanteric extension by CT, with radiologist interpretation as above. I agree with the radiologist's findings as based upon my independent interpretation. EMERGENCY DEPARTMENT COURSE: The patient was seen and evaluated as above. The patient presents by ambulance for left hip pain in the setting of a fall. She does have tenderness to palpation and is unable to flex or abduct the left hip. IV access was obtained, labs are drawn. Per my interpretation, no leukocytosis, anemia, thrombocytopenia. Renal, hepatic function and electrolytes without significant abnormality. INR 1.1. Initial x-ray of the left hip, per my interpretation, shows questionable fracture. I did discuss this with my attending physician, Dr. Galdamez, who did also review the images. We agreed to complete CT scan of the left hip to further evaluate the injury. CT imaging was concerning for acute nondisplaced fracture within the greater trochanter of the left femur. I discussed findings with the patient at bedside. Recommended admission. The patient was agreeable. I discussed the case with the biomass plant manager. Patient will be evaluated by the [facility] hospitalist service. Please see hospitalist dictation regarding ongoing management care of this patient. While in the department, I personally reevaluated the patient several times and each time the patient was found to be resting comfortably. The patient was educated upon management, educated upon todays findings/results, educated upon importance of follow up from today's visit, educated upon symptoms in which to return, had questions answered prior to discharge, verbalized understanding, and was discharged home in good condition. Case was discussed with the attending physician. I attest that I have personally reviewed the patient medication list. I attest that I have reviewed the patient's blood pressure and it was found to be normal GCS: 15 In the evaluation and treatment of this patient the following differential diagnoses were entertained: Fracture, subluxation, dislocation, contusion, ligamentous injury, neurovascular, compartment syndrome, rhabdomyolysis, as well as other pathologies. The chart was completed utilizing [employer] Speech voice recognition software. Grammatical errors, random word insertions, pronoun errors, and incomplete sentences are an occasional consequence of this system due to software limitations, ambient noise, and hardware issues. Any formal questions or concerns about the content, text, or information contained within the body of this dictation should be directly addressed to the provider for clarification. Past Med/Surg History Problem List Acute bacterial conjunctivitis of left eye Chronic congestive heart failure H/O cardiac pacemaker History of implantable cardioverter-defibrillator (ICD) placement Chronically on opiate therapy History of hepatitis C Peripheral neuropathy Peripheral arterial disease COPD (chronic obstructive pulmonary disease) Left hip pain Fall DDD (degenerative disc disease), lumbar Chronic back pain Tobacco use disorder Closed nondisplaced fracture of greater trochanter of left femur Seizure disorder Paroxysmal atrial fibrillation Diabetes mellitus, type II Iron deficiency anemia Anxiety CKD (chronic kidney disease), stage III GERD (gastroesophageal reflux disease) (Chronic) Hyperlipidemia (Chronic) CAD (coronary artery disease) (Chronic) "MD 2006. S/P PCI/Stent RCA" HTN (hypertension) (Chronic) OA (osteoarthritis) (Chronic) Migraine (Chronic) Medical History COPD, group C, by GOLD 2017 classification Symptomatic anemia History of DVT (deep vein thrombosis) History of CVA (cerebrovascular accident) Symptomatic anemia Atrial fibrillation with RVR Breakthrough seizure Transaminitis Shock circulatory Metabolic encephalopathy ARF (acute renal failure) Colitis COPD exacerbation Acute ischemic right MCA stroke Arm paresthesia, left Idiopathic polyneuropathy Right leg DVT Myoclonic jerking Gait disturbance Chronic pain Rhabdomyolysis MARIELLA (acute kidney injury) Seizure Sinus tachycardia Non-ST elevation MD (NSTEMI) Chronic hepatitis C without hepatic coma Ischemic cardiomyopathy Acute anterior wall MD LBBB (left bundle branch block) Surgical History H/O release of tendon History of carpal tunnel surgery H/O: hysterectomy Hx of cataract surgery S/P cardiac cath S/P cholecystectomy Family History Father , age 81 of lung cancer Prostate cancer Heart disease Thyroid disorder Lung cancer Mother , age 80 with COPD Cancer Cervical Coronary heart disease s/p CABG Diabetes COPD (chronic obstructive pulmonary disease) Social History Smoking Status: Current every day smoker Tobacco Type: Cigarettes Age Started Using Tobacco: 23; packs per day: 0.5; Cigarettes Per Day: 7-8; Second Hand Exposure: Yes; Do You Dip or Chew Tobacco: No; Tobacco Cessation Education Requested by Patient: No Hx Alcohol Use: No Hx Substance Use: No Preferred Language: Latvian Communication Ability: Effective Coal Bagger Required: No Beliefs That Will Affect Care: None Current Living Situation: Alone current occupational status: retired 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 Other Information That Helps Us Care for You: No Feels Safe at Home: Yes Safety Concerns: Feels Safe At This Time Assistive Devices: Denture - Upper, Denture - Lower, Glasses and Oxygen - Continuous Allergies Allergies Allergy/AdvReac Type Severity Reaction Status Date / Time NSAIDS (Non-Steroidal AdvReac Severe GI ISSUES Verified 10/18/23 09:56 Anti-Inflamma [id number] Reductase AdvReac Severe LIVER Verified 10/18/23 09:56 Inhibitor FUNCTION [Yugkzxv-Kyq-Vap Reductase ELEVATES Inhibitor] isosorbide AdvReac Intermediate VOMIT/HEADA Verified 10/18/23 09:56 CARLOS tramadol AdvReac Intermediate VOMITING Verified 10/18/23 09:56 Home Meds Home Medications Medication Instructions Recorded Confirmed nitroglycerin 0.4 mg sublingual 0.4 mg sublingual DIRECTED PRN 03/30/17 10/18/23 tablet Chest Pain #0 BTLS pantoprazole 40 mg tablet,delayed 40 mg PO DAILYBB #30 tabs 03/30/17 10/18/23 release oxycodone 5 mg tablet 5 mg PO Q6H PRN Severe Pain (Scale 08/16/20 10/18/23 Score 7-10) gabapentin 300 mg capsule See Rx Instructions .Route .COMPLEX 12/17/22 10/18/23 ondansetron HCl 4 mg tablet 4 mg PO Q8H PRN Nausea 12/17/22 10/18/23 umeclidinium 62.5 mcg-vilanterol 1 inh inhalation DAILY 12/17/22 10/18/23 25 mcg/actuation powdr for inhalation (Anoro Ellipta) levetiracetam 500 mg tablet 500 mg PO AMHS 01/11/23 10/18/23 cyanocobalamin (vitamin B-12) 1,000 mcg PO QAM 06/28/23 10/18/23 1,000 mcg tablet (Vitamin B-12) furosemide 40 mg tablet See Rx Instructions .Route .COMPLEX 06/28/23 10/18/23 trazodone 50 mg tablet 25 mg PO HS 06/28/23 10/18/23 Previous Rx's Medication Instructions Recorded apixaban 5 mg tablet (Eliquis) 5 mg PO BID #60 tabs 12/19/22 clopidogrel 75 mg tablet 75 mg PO QAM #30 tabs 12/19/22 ferrous sulfate 325 mg (65 mg 325 mg PO BIDM #60 tabs 07/04/23 iron) tablet,delayed release lisinopril 10 mg tablet 10 mg PO QAM #30 tabs 07/04/23 metoprolol succinate 50 mg 50 mg PO BID #60 tabs 07/04/23 tablet,extended release 24 hr Results & Data (ED) Vital Signs Vital Signs - 24 hr 10/18/23 04:10 05/29/24 04:12 10/18/23 04:12 Temperature 37.1 C 37.1 C Temperature Source Oral Oral Pulse Rate 77 78 Pulse Rate [Apical] Pulse Rate [Right Finger] 85 Pulse Rhythm Regular Pulse Rhythm [Apical] Pulse Rhythm [Right Finger] Regular Pulse Strength Normal Pulse Strength [Apical] Pulse Strength [Right Finger] Normal Respiratory Rate 18 20 Respiratory Effort / Characteristics Non-Labored Spontaneous Non-Labored Spontaneous Respiratory Depth Normal Normal Respiratory Pattern Regular Regular Blood Pressure 139/75 Blood Pressure [Right Arm] 152/93 H Blood Pressure Mean 96 Blood Pressure Mean [Right Arm] 112 Blood Pressure Position Lying Blood Pressure Position [Right Arm] Sitting Pulse Oximetry 91 87 L Oxygen Delivery Method Room Air Room Air Oxygen Flow Rate 0 Sepsis Recent Fever Within 48 Hours No Sepsis New/Unexplained Change in Mental Status No Sepsis Action Taken by Nursing No Action Required 10/18/23 05:39 10/18/23 06:00 10/18/23 07:12 Temperature Temperature Source Pulse Rate Pulse Rate [Apical] 77 73 75 Pulse Rate [Right Finger] Pulse Rhythm Pulse Rhythm [Apical] Regular Regular Pulse Rhythm [Right Finger] Pulse Strength Pulse Strength [Apical] Normal Normal Pulse Strength [Right Finger] Respiratory Rate 20 20 20 Respiratory Effort / Characteristics Non-Labored Spontaneous Non-Labored Spontaneous Non-Labored Spontaneous Respiratory Depth Normal Normal Normal Respiratory Pattern Regular Regular Regular Blood Pressure Blood Pressure [Right Arm] 165/113 H 128/67 124/70 Blood Pressure Mean Blood Pressure Mean [Right Arm] 130 87 88 Blood Pressure Position Blood Pressure Position [Right Arm] Lying Lying Pulse Oximetry 95 93 97 Oxygen Delivery Method Nasal Cannula Nasal Cannula Nasal Cannula Oxygen Flow Rate 2 2 2 Sepsis Recent Fever Within 48 Hours Sepsis New/Unexplained Change in Mental Status Sepsis Action Taken by Nursing Laboratory Data 10/19/23 06:05 10/19/23 06:05 Lab Results 10/18/23 10/18/23 Range/Units 04:12 07:22 WBC 5.50 (4.8-10.8) K/ul RBC 4.58 (4.20-5.40) M/uL Hgb 15.1 (12.0-16.0) g/dl Hct 45.4 (37.0-47.0) % MCV 99.1 (80.0-100.0) fL MCH 33.0 (25.0-34.0) pg MCHC 33.3 (32.0-36.0) g/dL RDW Std Deviation 49.6 H (36.4-46.3) fL RDW Coeff of Julia 14.4 (11.5-14.5) % Plt Count 155 (130-400) K/uL MPV 10.3 (9.4-12.4) fL Immature Gran % (Auto) 0.4 % Neut % (Auto) 70.3 % Lymph % (Auto) 19.1 % [place] % (Auto) 8.5 % Eos % (Auto) 1.3 % Baso % (Auto) 0.4 % Neut # (Auto) 3.87 (1.40-6.50) K/uL Lymph # (Auto) 1.05 L (1.20-3.40) K/uL [place] # (Auto) 0.47 (0.11-0.59) K/uL Eos # (Auto) 0.07 (0.00-0.50) K/uL Baso # (Auto) 0.02 (0.00-0.20) K/uL Immature Gran # (Auto) 0.02 (0.01-0.20) K/uL PT 11.4 (9.0-12.0) Seconds INR 1.1 (0.9-1.1) APTT 28 (21-31) Seconds PTT Ratio 1.0 Sodium 141 (136-145) mmol/L Potassium 3.5 (3.5-5.1) mmol/L Chloride 104 (98-107) mmol/L Carbon Dioxide 32 (21-32) mmol/L Anion Gap 5 (3-11) BUN 20 (6-23) mg/dl Creatinine 1.00 (0.6-1.2) mg/dl Est Cr Clr Drug Dosing 44.5 ml/min Est GFR ( Amer) 63.4 ml/min Est GFR (Non-Af Amer) 54.7 ml/min BUN/Creatinine Ratio 20.0 (10-20) Glucose 107 H (70-99(Fasting)) mg/dl Calcium 9.0 (8.6-10.3) mg/dl Total Bilirubin 0.4 (0.2-1.0) mg/dl AST 13 (13-39) U/L ALT 9 (7-52) U/L Alkaline Phosphatase 64 (34-104) U/L Total Protein 6.7 (6.0-8.3) gm/dl Albumin 4.1 (3.4-5.0) gm/dl Globulin 2.6 (2.5-4.0) gm/dl Albumin/Globulin Ratio 1.6 (0.9-2) Urine Color Yellow Urine Appearance Clear (Clear) Urine pH 6.0 (4.5-7.5) Ur Specific [place] 1.015 (1.000-1.030) Urine Protein Trace H (Negative) Urine Glucose (UA) Negative (Negative) Urine Ketones Negative (Negative) Urine Blood Negative (Negative) Urine Nitrite Negative (Negative) Urine Bilirubin Negative (Negative) Urine Urobilinogen Negative (Negative) Ur Leukocyte Esterase Negative (Negative) Urine WBC (Auto) 0-5 (0-5) /hpf Urine RBC (Auto) 0-2 (0-2) /hpf U Hyaline Cast (Auto) 0-2 (0-2) /lpf U Epithel Cells (Auto) 0-2 (0-2) /hpf Urine Bacteria (Auto) None Seen (None Seen) Administered Medications Acetaminophen (Acetaminophen 325 Mg Tab) 650 mg PO Q4H PRN PRN Reason: pain/fever Stop: 11/17/23 10:13 Last Admin: 10/19/23 06:00 Dose: 650 mg Documented By: JEFFREY Apixaban (Apixaban 5 Mg Tablet) 5 mg PO BID [facility] Stop: 11/17/23 20:59 Last Admin: 10/19/23 07:32 Dose: 5 mg Documented By: Admin: 10/18/23 21:06 Dose: 5 mg Documented By: JEFFREY Clopidogrel Bisulfate (Clopidogrel Bisulfate 75 Mg Tab) 75 mg PO QAM [facility] Stop: 11/18/23 08:59 Last Admin: 10/19/23 07:32 Dose: 75 mg Documented By: FRANCHESKA Ferrous Sulfate (Ferrous Sulfate 325 Mg Tab) 325 mg PO BIDM [facility] Stop: 11/17/23 16:59 Last Admin: 10/19/23 07:32 Dose: 325 mg Documented By: Admin: 10/18/23 17:30 Dose: 325 mg Documented By: FRANCHESKA Gabapentin (Gabapentin 300 Mg Cap) 300 mg PO 0900,1200 [facility] Stop: 11/17/23 11:59 Last Admin: 10/19/23 07:31 Dose: 300 mg Documented By: Admin: 10/18/23 12:46 Dose: 300 mg Documented By: FRANCHESKA Gabapentin (Gabapentin 600 Mg Tab) 600 mg PO HS [facility] Stop: 11/17/23 20:59 Last Admin: 10/18/23 20:35 Dose: 600 mg Documented By: JEFFREY Levetiracetam (Levetiracetam 500 Mg Tab) 500 mg PO AMHS [facility] Stop: 11/17/23 20:59 Last Admin: 10/19/23 07:31 Dose: 500 mg Documented By: Admin: 10/18/23 20:34 Dose: 500 mg Documented By: JEFFREY Lisinopril (L[facility]opril 10 Mg Tab) [facility] Stop: 11/18/23 08:59 Last Admin: 10/19/23 07:31 Dose: 10 mg Documented By: FRANCHESKA Metoprolol Succinate (Metoprolol Succ 50mg Ext Rel Tab) 50 mg PO BID [facility] Stop: 11/17/23 20:59 Last Admin: 10/19/23 07:30 Dose: Not Given Documented By: Admin: 10/18/23 20:34 Dose: 50 mg Documented By: JEFFREY Morphine Sulfate (Morphine Sulfate 4 Mg/Ml 1 Ml Carp\\Vial) 4 mg IV Q6H PRN PRN Reason: Severe Pain (Scale 7, 8, 9,10) Stop: 11/01/23 10:44 Last Admin: 10/19/23 10:00 Dose: 4 mg Documented By: Admin: 10/18/23 20:33 Dose: 4 mg Documented By: Admin: 10/18/23 13:01 Dose: 4 mg Documented By: FRANCHESKA Oxycodone HCl (Oxycodone Hcl Ir 5 Mg Tab (Immediate Release)) 5 mg PO Q6H PRN PRN Reason: Severe Pain (Scale 7, 8, 9,10) Stop: 11/01/23 10:26 Last Admin: 10/19/23 06:00 Dose: 5 mg Documented By: Admin: 10/18/23 18:24 Dose: 5 mg Documented By: Admin: 10/18/23 11:24 Dose: 5 mg Documented By: FRANCHESKA Pantoprazole Sodium (Pantoprazole 40 Mg Tab) 40 mg PO DAILYBB [facility] Stop: 11/18/23 06:29 Last Admin: 10/19/23 05:57 Dose: 40 mg Documented By: JEFFREY Polyethylene Glycol (Polyethylene (Miralax) 17 Gm Pack) 17 gm PO DAILY [facility] Stop: 11/18/23 08:59 Last Admin: 10/19/23 07:35 Dose: Not Given Documented By: FRANCHESKA Polymyxin/Trimethoprim Sulfate (Trimethoprim/Polymyxin B) 1 - 2 drops OPL [id number] [facility] Stop: 11/17/23 14:59 Last Admin: 10/19/23 10:02 Dose: 2 drops Documented By: Admin: 10/19/23 05:57 Dose: 2 drops Documented By: Admin: 10/18/23 20:33 Dose: 2 drops Documented By: Admin: 10/18/23 14:13 Dose: 2 drops Documented By: FRANCHESKA Trazodone HCl (Trazodone Hcl 50 Mg Tab) 25 mg PO HS [facility] Stop: 11/17/23 20:59 Last Admin: 10/18/23 20:35 Dose: 25 mg Documented By: JEFFREY Umeclidinium/Vilanterol (Umeclidinium/Vilanterol 62.5/25mcg 7 Puffs/Inhaler) 1 puffs INH DAILY [facility] Stop: 11/18/23 08:59 Last Admin: 10/19/23 07:34 Dose: 1 puffs Documented By: FRANCHESKA Discontinued Medications Morphine Sulfate (Morphine Sulfate 4 Mg/Ml 1 Ml Carp\\Vial) 4 mg IV NOW STA Stop: 10/18/23 04:34 Last Admin: 10/18/23 04:37 Dose: 4 mg Documented By: LAURA Morphine Sulfate (Morphine Sulfate 4 Mg/Ml 1 Ml Carp\\Vial) 4 mg IV NOW STA Stop: 10/18/23 07:27 Last Admin: 10/18/23 07:31 Dose: 4 mg Documented By: CHIOMA Ondansetron HCl (Ondansetron Inj 2 Mg/Ml 2 Ml Vial) 4 mg IV NOW STA Stop: 10/18/23 04:34 Last Admin: 10/18/23 04:37 Dose: 4 mg Documented By: LAURA Imaging Data Radiologist's Impression: Chest X-Ray 10/18/23 04:17 XR chest 1V portable CLINICAL HISTORY: fall, hip pain COMPARISON STUDY: Chest CT August 18, 2020. Chest radiograph June 28, 2023. FINDINGS: Left subclavian biventricular pacer/AICD is in place. Moderate cardiomegaly is unchanged. No evidence for pulmonary edema. No pneumothorax or pleural effusion. No consolidation is present. IMPRESSION: No acute cardiopulmonary findings. No change in appearance of the chest. ACT 112: Negative or not required by law. Electronically signed by: Korey Cobb M.D. 10/18/2023 7:[address] 10/18/23 05:16 CT hip LT wo con CLINICAL HISTORY: fall, pain, possible fx on X-ray COMPARISON STUDY: Pelvis and left hip radiographs performed earlier today. CT of the abdomen and pelvis June 28, 2023. TECHNIQUE: Axial images of the left hip were obtained without IV contrast. Sagittal and coronal reconstructions were viewed. Automated exposure control was utilized for the study. A dose lowering technique was utilized adhering to the principles of ALARA. FINDINGS: Sigmoid diverticulosis is noted. There is no acute fracture within visualized portions of the left hemipelvis. There is an acute nondisplaced fracture of the greater trochanter of the left femur. Fracture extends to the base of the greater trochanter. No intertrochanteric extension is identified by CT. No osseous lesions are identified. Mild joint space narrowing and modest. Osteophytosis of the left hip is present. IMPRESSION: Acute nondisplaced fracture within the greater trochanter of the left femur. No intertrochanteric extension by CT. MRI of the left hip could be obtained to assess for occult intertrochanteric extension. ACT 112: Negative or not required by law. Electronically signed by: Korey Cobb M.D. 10/18/2023 7:00 AM Discharge Plan Visit Data Chief Complaint: Hip Pain Stated Complaint: FALL, LEFT HIP PAIN ED Provider: Lin Galdamez ED Midlevel Provider: Andria Campbell Discharge Problem: Closed fracture of greater trochanter of left femur, Fall Patient Disposition: Admitted As Inpatient Condition: Good Discharge Instructions Interventions: ED Discharge Assessment Last Done: 10/18/23 09:06 Discharge Problem: Fall Qualifiers: Encounter type: initial encounter Qualified Code(s): W19.XXXA - Unspecified fall, initial encounter
--- NOTE | 2023-10-18 07:02 | XRay Report ---
XR chest 1V portable CLINICAL HISTORY: fall, hip pain COMPARISON STUDY: Chest CT August 18, 2020. Chest radiograph June 28, 2023. FINDINGS: Left subclavian biventricular pacer/AICD is in place. Moderate cardiomegaly is unchanged. N o evidence for pulmonary edema. No pneumothorax or pleural effusion. No consolidation is present. IMPRESSION: No acute cardiopulmonary findings. No change in appearance of the chest. ACT 112: Negative or not required by law. Electronically signed by: Korey Cobb M.D. 10/18/2023 7:01 AM
--- NOTE | 2023-10-18 07:02 | CT Scan Report ---
CT hip LT wo con CLINICAL HISTORY: fall, pain, possible fx on X-ray COMPARISON STUDY: Pelvis and left hip radiographs performed earlier today. CT of the abdomen and pel vis June 28, 2023. TECHNIQUE: Axial images of the left hip were obtained without IV contrast. Sagittal and coronal recon structions were viewed. Automated exposure control was utilized for the study. A dose lowering techn ique was utilized adhering to the principles of ALARA. FINDINGS: Sigmoid diverticulosis is noted. There is no acute fracture within visualized portions of t he left hemipelvis. There is an acute nondisplaced fracture of the greater trochanter of the left fem ur. Fracture extends to the base of the greater trochanter. No intertrochanteric extension is identif ied by CT. No osseous lesions are identified. Mild joint space narrowing and modest. Osteophytosis of the left hip is present. IMPRESSION: Acute nondisplaced fracture within the greater trochanter of the left femur. No intertro chanteric extension by CT. MRI of the left hip could be obtained to assess for occult intertrochanter ic extension. ACT 112: Negative or not required by law. Electronically signed by: Korey Cobb M.D. 10/18/2023 7:00 AM
[2023-10-18 07:52] LABS: Appearance Urine Clear (Clear); Bacteria Urine Automated None Seen (None Seen); Bilirubin Urine Negative (Negative); Blood Urine Negative (Negative); Cast Urine Automated 0-2 /lpf (0-2); Color Urine Yellow; Epithelial Cell Urine Auto 0-2 /hpf (0-2); Glucose Urine UA Negative (Negative); Ketones Urine Negative (Negative); Leukocyte Esterase Urine Negative (Negative); Nitrite Urine Negative (Negative); Protein Urine Trace (Negative); RBC Urine Automated 0-2 /hpf (0-2); Specific Gravity Urine 1.015 (1.000-1.030); Urobilinogen Urine Negative (Negative); WBC Urine Automated 0-5 /hpf (0-5)
--- NOTE | 2023-10-18 08:23 | Electrocardiogram Report ---
Test Reason : Blood Pressure : / mmHG Vent. Rate : 076 BPM Atrial Rate : 076 BPM P-R Int : 168 ms QRS Dur : 136 ms QT Int : 440 ms P-R-T Axes : 059 -53 054 degrees QTc Int : 495 ms Atrial-sensed ventricular-paced rhythm Abnormal ECG When compared with ECG of 30-JUN-2023 14:48, Vent. rate has decreased BY 3 BPM Confirmed by Vineet Peoples ([id number]) on 10/18/2023 8:22:54 AM Referred By: REFERRED SELF Confirmed By:Vineet Peoples
--- NOTE | 2023-10-18 08:40 | XRay Report ---
XR hip LT 2V w pelvis CLINICAL HISTORY: left hip pain, fall TECHNIQUE: 2 views of the left hip and single frontal view of the pelvis were obtained. Comparison: Comparison is made to hip radiograph 10/05/2022 FINDINGS: There is no evidence of an acute fracture. Degenerative changes are seen in the hip joint. No soft ti ssue abnormality is seen. IMPRESSION: Degenerative changes without evidence of acute abnormality. ACT 112: Negative or not required by law. Electronically signed by: Dennis Tobar M.D. 10/18/2023 8:39 AM
--- NOTE | 2023-10-18 08:53 | History & Physical Report ---
Date of Service October 18, 2023 Assessment & Plan (1) Closed nondisplaced fracture of greater trochanter of left femur: (2) Fall: (3) Left hip pain: Plan: Radha Tong is a 78y/o F with PMHx of dyslipidemia, diet-controlled DM type II, CKD stage III, COPD, CAD, PVD w/ claudication, HTN, seizure disorder, DDD, anxiety, tobacco use disorder, viral hepatitis C, inferior-posterior ID s/p PCI of the RCA+repeat stenting (2006), CVA, paroxysmal atrial fibrillation [ anticoagulated on Eliquis], DVT (09/2022), osteoarthritis, chronic back pain, chronic anemia, ischemic cardiomyopathy, congestive HF s/p biventricular ICD implantation (2008) and other problems listed below who presented to the ED for evaluation of left hip pain s/p fall and was found to have an acute nondisplaced fracture within the greater trochanter of the left femur. Patient currently endorses 6/10 pain in her left hip, she did receive 8 mg IV morphine in the ED w/ some relief. She also received 4mg of IV Zofran in the ED for prevention of nausea given the severity of her pain. Patient is not currently nauseous. Labs and UA performed in ED are rather unremarkable, no signs of an acute infectious disease process at play. Chest x-ray displayed no acute cardiopulmonary findings. Left hip/pelvis x-ray showed some degenerative changes w/o evidence of an acute abnormality. Left hip CT revealed an acute nondisplaced fracture w/in the greater trochanter of the left femur. Ortho consult was placed. [place] back via [employer] from Dr. Lay, who asked if the patient is able to undergo an MRI of her left hip for further evaluation of the fx. I reached out to her outpatient cardiology DORA (Nikole Crenshaw PA-C), who saw her most recently this past June, to confirm/deny if the patient would be able to have an MRI done given hx of ICD/pacemaker placement. According to Nikole, one of her leads is quite old and does NOT appear to be MRI- compatible. I have relayed this information to Dr. Lay, will await his input regarding next steps regarding management of her fx. -Plan to keep patient NPO until she is evaluated by ortho, r/o need for surgical intervention. -Activity current is bedrest pending ortho evaluation, can advance activity with their recommendations. -Will place her on a regular, carb consistent diet if surgical intervention is not needed. -PRN IV morphine 4mg and po oxycodone 5mg in place for pain management. -Continuous cardiac monitoring in place, fall precautions ordered. -PRN IV Zofran ordered for any bouts of nausea that may occur. -Repeat CBC, BMP in AM. Can continue ANALYTICS CONSULTANT trazodone for sleep. (4) DDD (degenerative disc disease), lumbar: (5) Chronically on opiate therapy: (6) Chronic back pain: Plan: Patient is currently on chronic oral opioid therapy [oxycodone 5mg] for lumbar DDD w/ associated back pain, which is managed by her PCP. PDMP reviewed, prescription last filled 10/12. Patient reports regular use of this medication every 6hrs at home w/ good control of her chronic back pain. Patient denies any issues with her bowel habits at home, such as opioid-induced constipation. -Will continue w/ po 5mg oxycodone therapy for severe pain while hospitalized. -Can use continually interchange use of oral oxycodone and IV morphine for better pain control. -Daily laxative therapy (Miralax) ordered for prevention of opioid-induced constipation while hospitalized. (7) COPD (chronic obstructive pulmonary disease): Plan: Patient is currently on 2L of oxygen via nasal cannula and sating at 92%. She does not use any supplemental oxygen at home. Examination findings: Normal respiratory effort, lungs clear to auscultation, decreased air movement bilaterally. No accessory muscle use. -Chronic, stable. Can continue ANALYTICS CONSULTANT Anoro Ellipta therapy. -Continue to monitor for any signs of respiratory distress. Order placed for PRN DuoNebs given any new-onset SOB, wheezing. (8) Tobacco use disorder: Plan: Patient reports smoking approximately 7-8 cigarettes/day. She has been smoking since the age of 23. She currently lives at home by herself. -Smoking cessation counseling ordered. -Patient denies need for nicotine patches at this time, but could consider adding them on eventually if she does change her mind throughout the hospitalization. (9) Peripheral arterial disease: (10) Peripheral neuropathy: Plan: Patient does have peripheral neuropathy in her left foot, which is unchanged. She denies any new numbness or tingling in her extremities. Patient follows with [facility] at [facility]. She is currently scheduled to undergo left leg revascularization for the treatment of PVD with claudication in that extremity on October 24 w/ Dr. Marr [place] [facility] [place] -Can continue ANALYTICS CONSULTANT gabapentin for neuropathic pain. (11) Hyperlipidemia: (12) History of hepatitis C: Plan: Most recent lipid fasting panel (12/18/2022) revealed the following: triglycerides 216, total cholesterol 134, LDL 58 and HDL 33. -Not currently on statin therapy, was on atorvastatin 20mg in the past. Will repeat fasting lipid panel in AM. -According to documentation, she experiences an elevation in her liver enzymes when using statin therapy. Of note, she does have a hx of viral hepatitis C according to [facility] records. (13) GERD (gastroesophageal reflux disease): Plan: -Continue ANALYTICS CONSULTANT pantoprazole therapy. (14) HTN (hypertension): Plan: -Continue ANALYTICS CONSULTANT metoprolol succinate and lisinopril w/ hold parameters. (15) H/O cardiac pacemaker: (16) History of implantable cardioverter-defibrillator (ICD) placement: Plan: EKG performed in the ED interpreted by Dr. Vineet Peoples and revealed the f ollowing: atrial-sensed ventricular-paced rhythm w/ HR 76bpm, QT/QTc Int 440/495ms and P-R Int 168ms. Compared to her last documented EKG on 06/30/2023, vent rate has decreased by 3bpm. -Order place for pacemaker check, review results when available. (17) Chronic congestive heart failure: Plan: Most recent echo performed 06/29/2023 and revealed the following: EF=60-65%, hypokinetic base inferior wall, mild AV sclerosis w/o significant AV stenosis, mild AVR, trace MVR, mild TVR and grade II diastolic dysfunction. -No need for repeat echo at this time. -Appears dry on exam. Will hold Lasix for now, can reevaluate in the AM. (18) Diabetes mellitus, type II: Plan: Glucose on arrival to ED was 107. Most recent hemoglobin A1C 6.3 (12/18/2022). -Diet controlled, no need to order SSI therapy at this time as she is not on any diabetic medications at home. -Will repeat hemoglobin A1C in AM. (19) CKD (chronic kidney disease), stage III: Plan: Baseline creatinine appears to be ~1.0 according to [facility] records. -Creatinine 1.00, BUN 20 and GFR 54.7 on admission. -Potassium 3.5 on admission, repeat BMP in AM. -As mentioned above, will be holding Lasix for now pending reevaluation in the AM. (20) Iron deficiency anemia: Plan: RBC 4.58, Hgb 15.1, and Hct 454 on admission. No need to order iron panel, ferritin level at this time d/t stability of her levels. -Can continue ANALYTICS CONSULTANT ferrous sulfate therapy. (21) Seizure disorder: Plan: No recent seizures per patient, does NOT drive. Seems [id number] is her primary mode of transportation after talking with her in the ED. Follows w/ [facility] [Dr. Ashlie Swift] per [facility] records. Per their documentation, patient was hospitalized and treated here @ [facility] following new-onset seizure activity in December 2022. -Continue ANALYTICS CONSULTANT levetiracetam therapy while hospitalized. (22) Acute bacterial conjunctivitis of left eye: Plan: Dr. Gonzales went to see the patient after I did this morning, and she was complaining of some L eye burning and itchiness. -Went ahead and ordered her some Trimethoprim-polymyxin B drops per his recommendation to cover for potential infection. (23) Paroxysmal atrial fibrillation: (24) History of DVT (deep vein thrombosis): Plan: EKG performed in the ED interpreted by Dr. Vineet Peoples and revealed the foll owing: atrial-sensed ventricular-paced rhythm w/ HR 76bpm, QT/QTc Int 440/495ms and P-R Int 168ms. Compared to her last documented EKG on 06/30/2023, vent rate has decreased by 3bpm. Patient is currently anticoagulated on Eliquis s/p diagnosis of DVT in her RLE last year, as noted in HPI. Patient states she last took her Eliquis around 7PM yesterday. -Will hold Eliquis for now pending ortho evaluation, r/o any need for surgical intervention of the L greater trochanter fx. Also holding Plavix at this time. DVT Prophylaxis: SCDs - For now. * As per above, will be holding ANALYTICS CONSULTANT Eliquis pending ortho consult. Code Status: DNR/DNI - No Resuscitation PCP: Roman Ennis MD Dispo: Admit to Med/Surg w/ Telemetry Patient seen in collaboration with Dr. Gonzales. Please see addendum. I spent a total of 75 minutes coordinating, documenting, and providing care for this patient excluding time spent in the performance of separately billed services. This included personally reviewing all current laboratories and imaging studies, medical reconciliation, outpatient chart review and discussion with specialists. This chart was completed in part utilizing Speech Voice Recognition Software. Grammatical errors, random word insertions, pronoun errors, and incomplete sentences are an occasional consequence of this system due to software limitations, ambient noise, and hardware issues. Any formal questions or concerns about the content, text, or information contained within the body of this dictation should be directly addressed to the provider for clarification. Plan Attending Addendum: care coordinated with DORA Garcia please refer to her notes for full details, I agree with her notes patient seen and examined, records reviewed by myself as well on exam, patient seen resting in bed, comfortable, hip pain well controlled no other symptoms VS noted and reviewed oriented x 3, not in distress, speaks in sentences with no effort nor accessory muscle use normal rate, regular rhythm, no murmurs clear breath sounds bilaterally non distended, soft, nontender no bipedal edema, erythema, warmth no neuro deficits all labs noted and reviewed ASSESSMENT AND PLAN L Hip Fracture s/p Mechanical Fall - Ortho currently recommending conservative management PT/OT eval, pain control - resume usual Eliquis tomorrow if hemodynamically stable, Hg stable other diagnoses and plan of care as per DORA Pal's notes Vidal Gonzales MD History of Present Illness Chief Complaint: Left Hip Pain Primary Care Provider: Roman Ennis MD Radha Tong is a 78y/o F with PMHx of dyslipidemia, diet-controlled DM type II, CKD stage III, COPD, CAD, PVD w/ claudication, HTN, seizure disorder, DDD, anxiety, tobacco use disorder, viral hepatitis C, inferior-posterior ID s/p PCI of the RCA+repeat stenting (2006), CVA, paroxysmal atrial fibrillation [ anticoagulated on Eliquis], DVT (09/2022), osteoarthritis, chronic back pain, chronic anemia, ischemic cardiomyopathy, congestive HF s/p biventricular ICD implantation (2008) and other problems listed below who presented to the ED for evaluation of left hip pain s/p fall. History obtained from patient, and associated ED/PCP/specialist records. Patient reports that she was walking to her garage earlier this morning to go smoke a cigarette when she suddenly stumbled and fell down on her left hip. Patient denies hitting her head or losing consciousness. She could not get herself up herself off of the ground d/t immobilizing severe pain in her left hip. Patient did have her cell phone on hand and was able to call 911 herself. Patient currently endorses 6/10 pain in her left hip, she did receive 8 mg IV morphine in the ED w/ some relief. She states that she still cannot move her left leg at this time d/t pain. She currently denies any neck pain, dizziness, headache, SOB or chest pain. Patient is currently on 2L of oxygen via nasal cannula and sating at 92%. She does not use any supplemental oxygen at home, and denies any recent illnesses. Patient further denies any current nausea, but did receive 4mg of IV Zofran in the ED for prevention of nausea given the severity of her pain. Patient is currently anticoagulated on Eliquis s/p diagnosis of DVT in her RLE last year, as per above. Patient states she last took her Eliquis around 7PM yesterday. Patient reports that she has not eaten since last night around dinnertime. She reports no current issues with her urinary or bowel habits. She denies any abdominal pain. Patient reports smoking approximately 7-8 cigarettes/day. She has been smoking since the age of 23. She currently lives at home by herself. Patient states that she has a cane and walker available at home, but has not required either assistive walking device recently. She has been ambulating appropriately. Patient does have peripheral neuropathy in her left foot, which is unchanged. She denies any new numbness or tingling in her extremities. Patient follows with [facility] at [facility]. She is currently scheduled to undergo left leg revascularization for the treatment of PVD with claudication in that extremity on October 24 w/ Dr. Marr [place] [facility] [place]. Patient is currently on chronic oral opioid therapy [oxycodone 5mg] for lumbar DDD w/ associated back pain, which is managed by her PCP. PDMP reviewed, prescription last filled 10/12. Patient reports regular use of this medication every 6hrs at home w/ good control of her chronic back pain. Chest x-ray displayed no acute cardiopulmonary findings. Left hip/pelvis x-ray showed some degenerative changes w/o evidence of an acute abnormality. Left hip CT revealed an acute nondisplaced fracture w/in the greater trochanter of the left femur. Allergies Allergy/AdvReac Type Severity Reaction Status Date / Time NSAIDS (Non-Steroidal AdvReac Severe GI ISSUES Verified 10/18/23 09:56 Anti-Inflamma Huujqnn-OYQ-VsE Reductase AdvReac Severe LIVER Verified 10/18/23 09:56 Inhibitor FUNCTION [Znxmikc-Cfw-Bbz Reductase ELEVATES Inhibitor] isosorbide AdvReac Intermediate VOMIT/HEADA Verified 10/18/23 09:56 CARLOS tramadol AdvReac Intermediate VOMITING Verified 10/18/23 09:56 Home Medications Medication Instructions Recorded Confirmed Type nitroglycerin 0.4 mg sublingual 0.4 mg sublingual DIRECTED PRN 03/30/17 10/18/23 History tablet Chest Pain #0 BTLS pantoprazole 40 mg tablet,delayed 40 mg PO DAILYBB #30 tabs 03/30/17 10/18/23 History release oxycodone 5 mg tablet 5 mg PO Q6H PRN Severe Pain (Scale 08/16/20 10/18/23 History Score 7-10) gabapentin 300 mg capsule See Rx Instructions .Route .COMPLEX 12/17/22 10/18/23 History ondansetron HCl 4 mg tablet 4 mg PO Q8H PRN Nausea 12/17/22 10/18/23 History umeclidinium 62.5 mcg-vilanterol 1 inh inhalation DAILY 12/17/22 10/18/23 History 25 mcg/actuation powdr for inhalation (Anoro Ellipta) apixaban 5 mg tablet (Eliquis) 5 mg PO BID #60 tabs 12/19/22 10/18/23 Rx clopidogrel 75 mg tablet 75 mg PO QAM #30 tabs 12/19/22 10/18/23 Rx levetiracetam 500 mg tablet 500 mg PO AMHS 01/11/23 10/18/23 History cyanocobalamin (vitamin B-12) 1,000 mcg PO QAM 06/28/23 10/18/23 History 1,000 mcg tablet (Vitamin B-12) furosemide 40 mg tablet See Rx Instructions .Route .COMPLEX 06/28/23 10/18/23 History trazodone 50 mg tablet 25 mg PO HS 06/28/23 10/18/23 History ferrous sulfate 325 mg (65 mg 325 mg PO BIDM #60 tabs 07/04/23 10/18/23 Rx iron) tablet,delayed release lisinopril 10 mg tablet 10 mg PO QAM #30 tabs 07/04/23 10/18/23 Rx metoprolol succinate 50 mg 50 mg PO BID #60 tabs 07/04/23 10/18/23 Rx tablet,extended release 24 hr Past Med/Surg History Problem List Acute bacterial conjunctivitis of left eye Chronic congestive heart failure H/O cardiac pacemaker History of implantable cardioverter-defibrillator (ICD) placement Chronically on opiate therapy History of hepatitis C Peripheral neuropathy Peripheral arterial disease COPD (chronic obstructive pulmonary disease) Left hip pain Fall DDD (degenerative disc disease), lumbar Chronic back pain Tobacco use disorder Closed nondisplaced fracture of greater trochanter of left femur Seizure disorder Paroxysmal atrial fibrillation Diabetes mellitus, type II Iron deficiency anemia Anxiety CKD (chronic kidney disease), stage III GERD (gastroesophageal reflux disease) (Chronic) Hyperlipidemia (Chronic) CAD (coronary artery disease) (Chronic) "ID 2006. S/P PCI/Stent RCA" HTN (hypertension) (Chronic) OA (osteoarthritis) (Chronic) Migraine (Chronic) Medical History COPD, group C, by GOLD 2017 classification Symptomatic anemia History of DVT (deep vein thrombosis) History of CVA (cerebrovascular accident) Symptomatic anemia Atrial fibrillation with RVR Breakthrough seizure Transaminitis Shock circulatory Metabolic encephalopathy ARF (acute renal failure) Colitis COPD exacerbation Acute ischemic right MCA stroke Arm paresthesia, left Idiopathic polyneuropathy Right leg DVT Myoclonic jerking Gait disturbance Chronic pain Rhabdomyolysis MARIELLA (acute kidney injury) Seizure Sinus tachycardia Non-ST elevation ID (NSTEMI) Chronic hepatitis C without hepatic coma Ischemic cardiomyopathy Acute anterior wall ID LBBB (left bundle branch block) Surgical History H/O release of tendon History of carpal tunnel surgery H/O: hysterectomy Hx of cataract surgery S/P cardiac cath S/P cholecystectomy Family History Father , age 81 of lung cancer Prostate cancer Heart disease Thyroid disorder Lung cancer Mother , age 80 with COPD Cancer Cervical Coronary heart disease s/p CABG Diabetes COPD (chronic obstructive pulmonary disease) Social History Smoking Status: Current every day smoker Tobacco Type: Cigarettes Age Started Using Tobacco: 23; packs per day: 0.5; Cigarettes Per Day: 7-8; Second Hand Exposure: Yes; Do You Dip or Chew Tobacco: No; Tobacco Cessation Education Requested by Patient: No Hx Alcohol Use: No Hx Substance Use: No Preferred Language: Kazakh Communication Ability: Effective Dry Cleaning Attendant Required: No Beliefs That Will Affect Care: None Current Living Situation: Alone current occupational status: retired 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 Physical Exam Physical Exam: General Appearance: WD/WN, vitals as above, NAD, laying down in bed, pleasant, conversing w/ no difficulties. Head: Normocephalic, atraumatic. Eyes: Normal inspection, PERRL, conjunctivae normal, anicteric sclerae. ENT: External ear and nose normal, oropharynx normal. Neck: Normal visual inspection, trachea midline, no thyromegaly. Respiratory: Normal respiratory effort, lungs clear to auscultation, decreased air movement bilaterally. No accessory muscle use. Cardiovascular: Regular rate, rhythm, no murmur, difficulty feeling b/l dorsalis pedis pulses, no BLE edema. Vessels: No JVD. Chest: Normal inspection of chest. Abdomen/GI: Normal bowel sounds, soft, nontender, no hepatosplenomegaly. Extremities/Musculoskeletal: No cyanosis or clubbing, tender to palpation of L hip. Patient is unable to properly move her LLE d/t pain. Neurologic: PERRL, EOMI, accommodation nl, no face palsy, no dysarthria and CN's II-XI grossly intact bilaterally. Psychiatric: A+Ox3, euthymic affect. Skin: No rashes, normal color, warm/dry. Results & Data Results & Data Vital Signs (Past 12 Hours) Vital Signs Temp Pulse Pulse Pulse Resp BP BP 10/18/23 07:12 75 20 124/70 10/18/23 06:00 73 20 128/67 10/18/23 05:39 77 20 165/113 H 10/18/23 04:12 78 10/18/23 04:12 37.1 C 77 20 139/75 10/18/23 04:10 37.1 C 85 18 152/93 H Pulse Ox O2 Del Method O2 Flow Rate 10/18/23 07:12 97 Nasal Cannula 2 10/18/23 06:00 93 Nasal Cannula 2 10/18/23 05:39 95 Nasal Cannula 2 10/18/23 04:12 10/18/23 04:12 87 L Room Air 0 10/18/23 04:10 91 Room Air Laboratory Results Short CBC 10/18/23 Range/Units 04:12 WBC 5.50 (4.8-10.8) K/ul Hgb 15.1 (12.0-16.0) g/dl Hct 45.4 (37.0-47.0) % Plt Count 155 (130-400) K/uL BMP 10/18/23 04:12 Sodium 141 Potassium 3.5 Chloride 104 Carbon Dioxide 32 BUN 20 Creatinine 1.00 Glucose 107 H Calcium 9.0 Liver Function 10/18/23 Range/Units 04:12 Total Bilirubin 0.4 (0.2-1.0) mg/dl AST 13 (13-39) U/L ALT 9 (7-52) U/L Alkaline Phosphatase 64 (34-104) U/L Albumin 4.1 (3.4-5.0) gm/dl Urine 10/18/23 Range/Units 07:22 Urine Color Yellow Urine Appearance Clear (Clear) Urine pH 6.0 (4.5-7.5) Ur Specific [place] 1.015 (1.000-1.030) Urine Protein Trace H (Negative) Urine Glucose (UA) Negative (Negative) Diagnostic Findings Chest X-Ray 10/18/23 04:17 XR chest 1V portable CLINICAL HISTORY: fall, hip pain COMPARISON STUDY: Chest CT August 18, 2020. Chest radiograph June 28, 2023. FINDINGS: Left subclavian biventricular pacer/AICD is in place. Moderate cardiomegaly is unchanged. No evidence for pulmonary edema. No pneumothorax or pleural effusion. No consolidation is present. IMPRESSION: No acute cardiopulmonary findings. No change in appearance of the chest. ACT 112: Negative or not required by law. Electronically signed by: Korey Cobb M.D. 10/18/2023 7:[address] 10/18/23 05:16 CT hip LT wo con CLINICAL HISTORY: fall, pain, possible fx on X-ray COMPARISON STUDY: Pelvis and left hip radiographs performed earlier today. CT of the abdomen and pelvis June 28, 2023. TECHNIQUE: Axial images of the left hip were obtained without IV contrast. Sagittal and coronal reconstructions were viewed. Automated exposure control was utilized for the study. A dose lowering technique was utilized adhering to the principles of ALARA. FINDINGS: Sigmoid diverticulosis is noted. There is no acute fracture within visualized portions of the left hemipelvis. There is an acute nondisplaced fracture of the greater trochanter of the left femur. Fracture extends to the base of the greater trochanter. No intertrochanteric extension is identified by CT. No osseous lesions are identified. Mild joint space narrowing and modest. Osteophytosis of the left hip is present. IMPRESSION: Acute nondisplaced fracture within the greater trochanter of the left femur. No intertrochanteric extension by CT. MRI of the left hip could be obtained to assess for occult intertrochanteric extension. ACT 112: Negative or not required by law. Electronically signed by: Korey Cobb M.D. 10/18/2023 7:00 AM Medications Administered Discontinued Medications Morphine Sulfate (Morphine Sulfate 4 Mg/Ml 1 Ml Carp\\Vial) 4 mg IV NOW STA Stop: 10/18/23 04:34 Last Admin: 10/18/23 04:37 Dose: 4 mg Documented By: LAURA Morphine Sulfate (Morphine Sulfate 4 Mg/Ml 1 Ml Carp\\Vial) 4 mg IV NOW STA Stop: 10/18/23 07:27 Last Admin: 10/18/23 07:31 Dose: 4 mg Documented By: CHIOMA Ondansetron HCl (Ondansetron Inj 2 Mg/Ml 2 Ml Vial) 4 mg IV NOW STA Stop: 10/18/23 04:34 Last Admin: 10/18/23 04:37 Dose: 4 mg Documented By: DESTINEYW ECG Additional Comments: EKG performed in the ED interpreted by Dr. Vineet Peoples and revealed the following: atrial-sensed ventricular-paced rhythm w/ HR 76bpm, QT/QTc Int 440/495ms and P-R Int 168ms. Compared to her last documented EKG on 06/30/2023, vent rate has decreased by 3bpm. Code Status & VTE Plan Code Status DNR/DNI - No resuscitation VTE Prophylaxis Plan VTE Prophylaxis will be ordered: Yes (1) Closed nondisplaced fracture of greater trochanter of left femur Encounter type: initial encounter Qualified Code(s): S72.115A - Nondisplaced fracture of greater trochanter of left femur, initial encounter for closed fracture (2) Fall Encounter type: initial encounter Qualified Code(s): W19.XXXA - Unspecified fall, initial encounter (6) Chronic back pain Back pain laterality: unspecified Back pain location: back pain in unspecified location Qualified Code(s): M54.9 - Dorsalgia, unspecified; G89.29 - Other chronic pain (7) COPD (chronic obstructive pulmonary disease) COPD type: unspecified COPD Qualified Code(s): J44.9 - Chronic obstructive pulmonary disease, unspecified (10) Peripheral neuropathy Peripheral neuropathy type: polyneuropathy, unspecified Qualified Code(s): G62.9 - Polyneuropathy, unspecified (11) Hyperlipidemia Hyperlipidemia type: unspecified Qualified Code(s): E78.5 - Hyperlipidemia, unspecified (13) GERD (gastroesophageal reflux disease) Esophagitis presence: esophagitis presence not specified Qualified Code(s): K21.9 - Gastro-esophageal reflux disease without esophagitis (14) HTN (hypertension) Hypertension type: unspecified Qualified Code(s): I10 - Essential (primary) hypertension (17) Chronic congestive heart failure Heart failure type: unspecified Qualified Code(s): I50.9 - Heart failure, unspecified (18) Diabetes mellitus, type II Diabetes mellitus complication status: without complication Diabetes mellitus seed laboratory assistant insulin use: without seed laboratory assistant use Qualified Code(s): E11.9 - Type 2 diabetes mellitus without complications (19) CKD (chronic kidney disease), stage III Chronic kidney disease stage 3 subtype: stage 3b (GFR 30-44) Qualified Code(s): N18.32 - Chronic kidney disease, stage 3b (20) Iron deficiency anemia Iron deficiency anemia type: unspecified iron deficiency Qualified Code(s): D50.9 - Iron deficiency anemia, unspecified
[2023-10-18] MEDS ORDERED: ALUMINUM/MAGNESIUM SUSP 30 ML UDC PO PRN (10:14)
[2023-10-18] MEDS ORDERED: MAGNESIUM HYDROXIDE SUSP 30 ML UDC PO PRN (10:14)
[2023-10-18] MEDS ORDERED: POLYETHYLENE (MIRALAX) 17 GM PACK PO PRN (10:14)
[2023-10-18] MEDS ORDERED: ONDANSETRON INJ 2 MG/ML 2 ML VIAL IV PRN (10:14)
[2023-10-18] MEDS ORDERED: ALBUT/IPRATROP 3MG/0.5MG NEB 3 ML VIAL NEB PRN (10:38)
[2023-10-18] MEDS: oxyCODONE HCL IR 5 MG TAB (IMMEDIATE RELEASE) PO PRN (11:24)
[2023-10-18] MEDS: GABAPENTIN 300 MG CAP PO SCH (12:46)
[2023-10-18] MEDS: MoRPHine SULFATE 4 MG/ML 1 ML CARP\\VIAL IV PRN (13:01)
[2023-10-18] MEDS: TRIMETHOPRIM/POLYMYXIN B OPL SCH (14:13)
--- NOTE | 2023-10-18 14:53 | Orthopedic Consultation ---
Date of Consultation October 18, 2023 Assessment & Plan (1) Closed nondisplaced fracture of greater trochanter of left femur: PT/OT Ice with easy wrap Nonweightbearing on left lower extremity with walker assistance Pain control with p.o. medication DVT prophylaxis with her prescription Plavix and Eliquis Patient is not able to have MRI study due to pacemaker incompatibility I discussed conservative management with the patient and she elects to proceed with this option Discussed the patient's condition with Dr. Lay Will continue to follow her while she is in our office She will need to follow-up in our clinic 2 weeks after discharge. History of Present Illness Reason for Consultation: Nondisplaced left greater trochanter fracture Requesting Physician: Dr. 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 Allergies Allergy/AdvReac Type Severity Reaction Status Date / Time NSAIDS (Non-Steroidal AdvReac Severe GI ISSUES Verified 10/18/23 09:56 Anti-Inflamma Whkmdqg-FCX-HjK Reductase AdvReac Severe LIVER Verified 10/18/23 09:56 Inhibitor FUNCTION [Oqsrgin-Izk-Vyy Reductase ELEVATES Inhibitor] isosorbide AdvReac Intermediate VOMIT/HEADA Verified 10/18/23 09:56 CARLOS tramadol AdvReac Intermediate VOMITING Verified 10/18/23 09:56 Home Medications Medication Instructions Recorded Confirmed Type nitroglycerin 0.4 mg sublingual 0.4 mg sublingual DIRECTED PRN 03/30/17 10/18/23 History tablet Chest Pain #0 BTLS pantoprazole 40 mg tablet,delayed 40 mg PO DAILYBB #30 tabs 03/30/17 10/18/23 History release oxycodone 5 mg tablet 5 mg PO Q6H PRN Severe Pain (Scale 08/16/20 10/18/23 History Score 7-10) gabapentin 300 mg capsule See Rx Instructions .Route .COMPLEX 12/17/22 10/18/23 History ondansetron HCl 4 mg tablet 4 mg PO Q8H PRN Nausea 12/17/22 10/18/23 History umeclidinium 62.5 mcg-vilanterol 1 inh inhalation DAILY 12/17/22 10/18/23 History 25 mcg/actuation powdr for inhalation (Anoro Ellipta) apixaban 5 mg tablet (Eliquis) 5 mg PO BID #60 tabs 12/19/22 10/18/23 Rx clopidogrel 75 mg tablet 75 mg PO QAM #30 tabs 12/19/22 10/18/23 Rx levetiracetam 500 mg tablet 500 mg PO AMHS 01/11/23 10/18/23 History cyanocobalamin (vitamin B-12) 1,000 mcg PO QAM 06/28/23 10/18/23 History 1,000 mcg tablet (Vitamin B-12) furosemide 40 mg tablet See Rx Instructions .Route .COMPLEX 06/28/23 10/18/23 History trazodone 50 mg tablet 25 mg PO HS 06/28/23 10/18/23 History ferrous sulfate 325 mg (65 mg 325 mg PO BIDM #60 tabs 07/04/23 10/18/23 Rx iron) tablet,delayed release lisinopril 10 mg tablet 10 mg PO QAM #30 tabs 07/04/23 10/18/23 Rx metoprolol succinate 50 mg 50 mg PO BID #60 tabs 07/04/23 10/18/23 Rx tablet,extended release 24 hr Patient History Medical History COPD, group C, by GOLD 2017 classification Symptomatic anemia History of DVT (deep vein thrombosis) History of CVA (cerebrovascular accident) Symptomatic anemia Atrial fibrillation with RVR Breakthrough seizure Transaminitis Shock circulatory Metabolic encephalopathy ARF (acute renal failure) Colitis COPD exacerbation Acute ischemic right MCA stroke Arm paresthesia, left Idiopathic polyneuropathy Right leg DVT Myoclonic jerking Gait disturbance Chronic pain Rhabdomyolysis MARIELLA (acute kidney injury) Seizure Sinus tachycardia Non-ST elevation ME (NSTEMI) Chronic hepatitis C without hepatic coma Ischemic cardiomyopathy Acute anterior wall ME LBBB (left bundle branch block) Surgical History H/O release of tendon History of carpal tunnel surgery H/O: hysterectomy Hx of cataract surgery S/P cardiac cath S/P cholecystectomy Family History Father , age 81 of lung cancer Prostate cancer Heart disease Thyroid disorder Lung cancer Mother , age 80 with COPD Cancer Cervical Coronary heart disease s/p CABG Diabetes COPD (chronic obstructive pulmonary disease) Social History Smoking Status: Current every day smoker Tobacco Type: Cigarettes Age Started Using Tobacco: 23; packs per day: 0.5; Cigarettes Per Day: 7-8; Second Hand Exposure: Yes; Do You Dip or Chew Tobacco: No; Tobacco Cessation Education Requested by Patient: No Hx Alcohol Use: No Hx Substance Use: No Preferred Language: Turkish Communication Ability: Effective Music Engraver Required: No Beliefs That Will Affect Care: None Current Living Situation: Alone current occupational status: retired 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 There is no erythema or ecchymosis. Patient has difficulty performing active straight leg raise test and has significant pain with passive straight leg raise testing. She is able to actively dorsi and plantarflex her foot without issue. She is very hesitant to flex her knee beyond 30 degrees. She is able to detect light sensation to touch over the pads of all digits and over the dermatomes of her left lower extremity. Her peripheral pulses are easily palpable. She is neurovascularly intact. Results & Data Vital Signs (Past 12 Hours) Vital Signs Temp Pulse Pulse Pulse Pulse Resp BP 10/18/23 13:38 77 10/18/23 12:14 36.4 C L 65 16 10/18/23 10:21 10/18/23 10:14 36.9 C 16 10/18/23 09:00 70 20 10/18/23 08:37 77 10/18/23 07:12 75 20 10/18/23 06:00 73 20 10/18/23 05:39 77 20 10/18/23 04:12 78 10/18/23 04:12 37.1 C 77 20 139/75 10/18/23 04:10 37.1 C 85 18 BP Pulse Ox O2 Del Method O2 Flow Rate 10/18/23 13:38 10/18/23 12:14 119/71 91 Nasal Cannula 1 10/18/23 10:21 Nasal Cannula 2 10/18/23 10:14 149/78 H 91 Nasal Cannula 2 10/18/23 09:00 123/68 92 Nasal Cannula 2 10/18/23 08:37 10/18/23 07:12 124/70 97 Nasal Cannula 2 10/18/23 06:00 128/67 93 Nasal Cannula 2 10/18/23 05:39 165/113 H 95 Nasal Cannula 2 10/18/23 04:12 10/18/23 04:12 87 L Room Air 0 10/18/23 04:10 152/93 H 91 Room Air Diagnostic Findings Laboratory Results WBC 5.50 K/ul (4.8-10.8) 10/18/23 04:12 RBC 4.58 M/uL (4.20-5.40) 10/18/23 04:12 Hgb 15.1 g/dl (12.0-16.0) 10/18/23 04:12 Hct 45.4 % (37.0-47.0) 10/18/23 04:12 MCV 99.1 fL (80.0-100.0) 10/18/23 04:12 MCH 33.0 pg (25.0-34.0) 10/18/23 04:12 MCHC 33.3 g/dL (32.0-36.0) 10/18/23 04:12 RDW Std Deviation 49.6 fL (36.4-46.3) H 10/18/23 04:12 RDW Coeff of Julia 14.4 % (11.5-14.5) 10/18/23 04:12 Plt Count 155 K/uL (130-400) 10/18/23 04:12 MPV 10.3 fL (9.4-12.4) 10/18/23 04:12 Immature Gran % (Auto) 0.4 % 10/18/23 04:12 Neut % (Auto) 70.3 % 10/18/23 04:12 Lymph % (Auto) 19.1 % 10/18/23 04:12 [place] % (Auto) 8.5 % 10/18/23 04:12 Eos % (Auto) 1.3 % 10/18/23 04:12 Baso % (Auto) 0.4 % 10/18/23 04:12 Neut # (Auto) 3.87 K/uL (1.40-6.50) 10/18/23 04:12 Lymph # (Auto) 1.05 K/uL (1.20-3.40) L 10/18/23 04:12 [place] # (Auto) 0.47 K/uL (0.11-0.59) 10/18/23 04:12 Eos # (Auto) 0.07 K/uL (0.00-0.50) 10/18/23 04:12 Baso # (Auto) 0.02 K/uL (0.00-0.20) 10/18/23 04:12 Immature Gran # (Auto) 0.02 K/uL (0.01-0.20) 10/18/23 04:12 PT 11.4 Seconds (9.0-12.0) 10/18/23 04:12 INR 1.1 (0.9-1.1) 10/18/23 04:12 APTT 28 Seconds (21-31) 10/18/23 04:12 PTT Ratio 1.0 10/18/23 04:12 Sodium 141 mmol/L (136-145) 10/18/23 04:12 Potassium 3.5 mmol/L (3.5-5.1) 10/18/23 04:12 Chloride 104 mmol/L (98-107) 10/18/23 04:12 Carbon Dioxide 32 mmol/L (21-32) 10/18/23 04:12 Anion Gap 5 (3-11) 10/18/23 04:12 BUN 20 mg/dl (6-23) 10/18/23 04:12 Creatinine 1.00 mg/dl (0.6-1.2) 10/18/23 04:12 Est Cr Clr Drug Dosing 44.5 ml/min 10/18/23 04:12 Est GFR ( Amer) 63.4 ml/min 10/18/23 04:12 Est GFR (Non-Af Amer) 54.7 ml/min 10/18/23 04:12 BUN/Creatinine Ratio 20.0 (10-20) 10/18/23 04:12 Glucose 107 mg/dl (70-99(Fasting)) H 10/18/23 04:12 Calcium 9.0 mg/dl (8.6-10.3) 10/18/23 04:12 Total Bilirubin 0.4 mg/dl (0.2-1.0) 10/18/23 04:12 AST 13 U/L (13-39) 10/18/23 04:12 ALT 9 U/L (7-52) 10/18/23 04:12 Alkaline Phosphatase 64 U/L (34-104) 10/18/23 04:12 Total Protein 6.7 gm/dl (6.0-8.3) 10/18/23 04:12 Albumin 4.1 gm/dl (3.4-5.0) 10/18/23 04:12 Globulin 2.6 gm/dl (2.5-4.0) 10/18/23 04:12 Albumin/Globulin Ratio 1.6 (0.9-2) 10/18/23 04:12 Urine Color Yellow 10/18/23 07:22 Urine Appearance Clear (Clear) 10/18/23 07:22 Urine pH 6.0 (4.5-7.5) 10/18/23 07:22 Ur Specific [place] 1.015 (1.000-1.030) 10/18/23 07:22 Urine Protein Trace (Negative) H 10/18/23 07:22 Urine Glucose (UA) Negative (Negative) 10/18/23 07:22 Urine Ketones Negative (Negative) 10/18/23 07:22 Urine Blood Negative (Negative) 10/18/23 07:22 Urine Nitrite Negative (Negative) 10/18/23 07:22 Urine Bilirubin Negative (Negative) 10/18/23 07:22 Urine Urobilinogen Negative (Negative) 10/18/23 07:22 Ur Leukocyte Esterase Negative (Negative) 10/18/23 07:22 Urine WBC (Auto) 0-5 /hpf (0-5) 10/18/23 07:22 Urine RBC (Auto) 0-2 /hpf (0-2) 10/18/23 07:22 U Hyaline Cast (Auto) 0-2 /lpf (0-2) 10/18/23 07:22 U Epithel Cells (Auto) 0-2 /hpf (0-2) 10/18/23 07:22 Urine Bacteria (Auto) None Seen (None Seen) 10/18/23 07:22 Impressions Hip/Pelvis X-Ray 10/18/23 04:16 XR hip LT 2V w pelvis CLINICAL HISTORY: left hip pain, fall TECHNIQUE: 2 views of the left hip and single frontal view of the pelvis were obtained. Comparison: Comparison is made to hip radiograph 10/05/2022 FINDINGS: There is no evidence of an acute fracture. Degenerative changes are seen in the hip joint. No soft tissue abnormality is seen. IMPRESSION: Degenerative changes without evidence of acute abnormality. ACT 112: Negative or not required by law. Electronically signed by: Dennis Tobar M.D. 10/18/2023 8:39 AM Chest X-Ray 10/18/23 04:17 XR chest 1V portable CLINICAL HISTORY: fall, hip pain COMPARISON STUDY: Chest CT August 18, 2020. Chest radiograph June 28, 2023. FINDINGS: Left subclavian biventricular pacer/AICD is in place. Moderate cardiomegaly is unchanged. No evidence for pulmonary edema. No pneumothorax or pleural effusion. No consolidation is present. IMPRESSION: No acute cardiopulmonary findings. No change in appearance of the chest. ACT 112: Negative or not required by law. Electronically signed by: Korey Cobb M.D. 10/18/2023 7:[address] 10/18/23 05:16 CT hip LT wo con CLINICAL HISTORY: fall, pain, possible fx on X-ray COMPARISON STUDY: Pelvis and left hip radiographs performed earlier today. CT of the abdomen and pelvis June 28, 2023. TECHNIQUE: Axial images of the left hip were obtained without IV contrast. Sagittal and coronal reconstructions were viewed. Automated exposure control was utilized for the study. A dose lowering technique was utilized adhering to the principles of ALARA. FINDINGS: Sigmoid diverticulosis is noted. There is no acute fracture within visualized portions of the left hemipelvis. There is an acute nondisplaced fracture of the greater trochanter of the left femur. Fracture extends to the base of the greater trochanter. No intertrochanteric extension is identified by CT. No osseous lesions are identified. Mild joint space narrowing and modest. Osteophytosis of the left hip is present. IMPRESSION: Acute nondisplaced fracture within the greater trochanter of the left femur. No intertrochanteric extension by CT. MRI of the left hip could be obtained to assess for occult intertrochanteric extension. ACT 112: Negative or not required by law. Electronically signed by: Korey Cobb M.D. 10/18/2023 7:00 AM (1) Closed nondisplaced fracture of greater trochanter of left femur Encounter type: initial encounter Qualified Code(s): S72.115A - Nondisplaced fracture of greater trochanter of left femur, initial encounter for closed fract ure
--- OUTSIDE RECORDS SUMMARY | 2023-10-18 15:30 | External Medical Summary | Summary of Care ---
Author Name Unknown Organization [facility] Address [address] [place] [address] Phone [phone] Care Team Providers Care Poultry And Fish Butcher Name Role Phone Loli NORWOOD MD, Roman Barraza Primary Care Provider [phone] Reason for Visit * Reason Onset Date Comments Medication Refill 10/12/2023 Encounter Details Date Type Department Care Team (Late st Contact Info) Description 10/12/2023 Refill Family Practice [facility] [address] [place] [address] Roman Ennis III, MD [address] [place] [address] Chronic pain syndrome Allergies Active Allergy Reactions Criticality Noted Date Comments Isosorbide Mononitrate 12/24/2007 Severe headaches Nsaids 05/29/2002 Tramadol Hcl Nausea/vomiting Low 01/09/2008 UGI distress documented as of this encounter (statuses as of 10/13/2023) Medications Medication Sig Dispensed Refills Start Date End Date Status Ventolin HFA 108 (90 Base) MCG/ACT Inhalation Aerosol Solution Inhale 2 Puffs by mouth every 4 hours as needed for Wheezing or Dyspnea. 54 g 1 04/21/2021 Active Cyanocobalamin 1000 MCG Oral Tablet (Cyanocobalamin) Take by mouth 1 Tablet in the morning. 100 Tablet 5 02/24/2022 Active Nitroglycerin 0.4 MG Sublingual Tablet Sublingual (Nitrostat)Indicati ons:ASCVD (arteriosclerotic cardiovascular disease),Chest pain, unspecified type DISSOLVE ONE TABLET UNDER THE TONGUE NEEDED FOR CHEST pain, maximum THREE doses 25 Tablet 5 03/01/2023 Active Pantoprazole Sodium 40 MG Oral Tablet Delayed Release (Protonix)Indicatio ns:Abdominal pain, epigastric TAKE ONE TABLET BY MOUTH DAILY 30 MINUTES BEFORE FIRST meal of THE DAY 90 Tablet 3 03/09/2023 Active traZODone HCl 50 MG Oral Tablet (Desyrel) Take 0.5 Tablets by mouth at bedtime. 30 Tablet 5 03/09/2023 Active Atorvastatin Calcium 20 MG Oral Tablet (Lipitor) Take 1 Tablet by mouth in the morning. 90 Tablet 5 03/09/2023 Active Furosemide 40 MG Oral Tablet (Lasix) Take 1 Tablet by mouth daily AND 0.5 Tablets daily at noon. 135 Tablet 3 03/23/2023 Active Anoro Ellipta 62.5-25 MCG/ACT Inhalation Aerosol Powder Breath Activated (umeclidinium-vilan terol) INHALE ONE PUFF EVERY DAY 180 Blister Dosing Unit 1 03/31/2023 Active Gabapentin 300 MG Oral Capsule (Neurontin)Indicati ons:Hip pain, left Take one tablet by mouth in the morning and at noon and two tablets by mouth before bed. 120 Capsule 11 05/03/2023 Active Ondansetron HCl 4 MG Oral Tablet (Zofran)Indications :Nausea Take 1 Tablet by mouth every 8 hours as needed for Nausea. 20 Tablet 07/18/2023 Active Eliquis 5 MG Oral Tablet (Apixaban) TAKE ONE TABLET BY MOUTH TWICE DAILY 180 Tablet 3 08/07/2023 Active Ferrous Sulfate 325 (65 Fe) MG Oral Tablet Delayed Release Take 1 Tablet by mouth in the morning and 1 Tablet before bedtime. 30 Tablet 6 08/09/2023 Active Metoprolol Succinate ER 50 MG Oral Tablet Extended Release 24 Hour (toPROL XL) Take 1 Tablet by mouth in the morning and 1 Tablet before bedtime. 30 Tablet 6 08/09/2023 Active Lisinopril 10 MG Oral Tablet (Prinivil) Take 1 Tablet by mouth in the morning. 30 Tablet 6 08/09/2023 Active Nystatin 929549 UNIT/GM External Powder (Nystop) Apply topically to affected area 3 times a day. Apply to area under breasts 60 g 3 08/24/2023 Active Clopidogrel Bisulfate 75 MG Oral Tablet (Plavix) Take 1 Tablet by mouth in the morning. 30 Tablet 5 09/06/2023 Active levETIRAcetam 500 MG Oral Tablet (Keppra) TAKE ONE TABLET BY MOUTH TWICE DAILY 60 Tablet 6 10/03/2023 Active oxyCODONE HCl 5 MG Oral Tablet (Oxy IR)Indications:Kidney Puller fernando pain syndrome Take 1 Tablet by mouth every 6 hours as needed (pain). 100 Tablet 10/13/2023 Active oxyCODONE HCl 5 MG Oral Tablet (Oxy IR)Indications:Kidney Puller fernando pain syndrome Take 1 Tablet by mouth every 6 hours as needed (pain). 100 Tablet 09/21/2023 Discontinue d(Refill) documented as of this encounter (statuses as of 10/13/2023) Active Problems Problem Noted Date Diagnosed Date PVD (peripheral vascular disease) with claudicat ion 09/20/2023 DDD (degenerative disc disease), lumbar 09/20/19 Seizure disorder, complex pa rtial, without intractable epilepsy 08/29/2023 Chronic kidney disease, stage 3b 07/31/2023 Overview: Per CKD protocol Benign hypertension with stage 3b chronic kidney disease 07/31/2023 Overview: Per CKD protocol Hypertensive heart and kidne y disease with chronic combined systolic and diastolic congestive heart failure and stage 3b chronic kidney disease 07/31/2023 Overview: Per CKD protocol Hypertensive heart and chron ic kidney disease with heart failure and stage 1 through stage 4 chronic kidney disease, or chronic kidney disease 07/28/2023 Chronic obstructive pulmonar y disease with (acute) exacerbation 07/28/2023 Acute deep vein thrombosis ( DVT) of proximal vein of right lower extremity 07/28/2023 New onset seizure 07/28/2023 Viral hepatitis C 07/28/2023 Type 2 diabetes mellitus wit h stage 3b chronic kidney disease, without long-term current use of insulin 07/28/2023 Atherosclerosis of [place] co ronary artery without angina pectoris 07/28/2023 Food insecurity 05/01/2023 Overview: Per [facility] Protocol Hip pain, left 04/28/2023 Atrial fibrillation 02/27/2023 Last Assessment & Plan: Eliquis 5mg BID Other disorders of phosphorus metabolism 023 Breakthrough seizure 02/27/2023 Chronic combined systolic an d diastolic congestive [...] A1c goal of less than 8.0% 06/02/2022 Abdominal aortic aneurysm (AAA) without rupture [...] 40mg IM/IV History of ischemic cardiomyopathy 07/18/2018 Coronary artery disease invo lving [place] coronary artery of [place] heart without angina pectoris 05/08/2018 Anxiety state 05/08/2018 ADVANCE DIRECTIVE INFORMATION 03/23/2018 Overview: No, Advance Directive brochure offered , patient declined. Incomplete uterovaginal prolapse 09/29/2017 Cystocele, lateral 09/29/2017 Vaginal atrophy 09/29/2017 Hepatitis C antibody test positive 05/09/2017 Overview: HCV treated; SVR Confirmed 03/05/2018 Controlled substance agreement signed 02/23/2017 Biventricular implantable ca rdioverter-defibrillator in situ 08/07/2013 Last Assessment & Plan: Followed by [facility] cardiology History of colonic polyps 09/04/2012 Overview: 09/01/2012: adenoma, repeat in 3 years ICD-10 update of inactive term Dyslipidemia, goal LDL below 70 05/07/2009 Overview: Per Lipid Taxonomy. OLD MYOCARDIAL INFARCT 12/11/2008 Overview: Modified by Acute CO Protocol #5. [facility] right coronary bare metal stents S/P angioplasty with stent 09/07/2006 History of tobacco use documented as of this encounter (statuses as of 10/13/2023) Resolved Problems Problem Noted Date Diagnosed Date Resolved Date Chronic kidney disease, stage 3b 07/31/2023 08/31/2023 Overview: Per CKD protocol Stage 3 chronic kidney disease 07/28/2023 08/03/2023 Overview: Per CKD protocol Atrial fibrillation 02/27/2023 03/16/20 23 Atrial fibrillation 02/27/2023 03/16/20 23 Hypertensive heart and kidne y disease with chronic combined systolic and diastolic congestive heart failure and stage 3 chronic kidney disease 02/20/2023 08/03/2023 Overview: Per CKD protocol Last Assessment & Plan: Current Status : [...] IV Lasix dose: 80 mg BMP Pro-BNP Migraine 10/14/2022 10/14/2022 Benign hypertension with CKD (chronic kidney disease) stage III 06/02/2022 08/03/2023 Overview: Per CKD protocol Last Assessment & Plan: HTN - Prinivil 20mg daily, Metoprolol 25mg BID Acute inferior myocardial infarction 02/17/2020 09/09/2020 COPD, group C, by GOLD 2017 classification 07/23/2019 03/31/2020 Chronic hepatitis C without hepatic coma 08/28/2018 10/14/2022 COPD, moderate 07/18/2018 06/06/2019 Overview: Per COPD GOLD Classification Kidney disease, chronic, sta ge III (GFR 30-59 ml/min) 05/11/2018 08/03/2023 Overview: Per CKD protocol Obstructive lung disease 04/02/2018 Hypertensive heart disease [...] for Patients with Cardiovascular Disease Project #: [id number] PI: Peyton Conn MD [phone] GENOMICS CARDIO RESEARCH OTHER*[id number] 01/15/2007 06/28/2016 Overview: Renamed Per Clinical Trials Billing Project. Study Title: Genomic Markers for Patients with Cardiovascular Disease Project #: [id number] PI: Peyton Conn MD [phone] LV (left ventricular) mural thrombus 10/30/2006 12/28/2017 Tobacco use disorder 09/07/2006 010 Acute inferior myocardial infarction 08/19/2006 12/11/2008 Overview: Modified by Acute CO Protocol #5. [facility] right coronary bare metal stents EXAMINATION OF PARTICIPANT I N CLINICAL TRIAL - HORIZONS 08/19/2006 09/04/2009 Overview: Renamed Per Clinical Trials Billing Project. Horizon AMI clinical trial 263 Single blind trial comparing heparin and IIB/IIIA with bivalirudin, and Taxus vs bare metal stent. Patient Follow-up for 5 years Family Services Coordinator: Trent Verduzco [phone] [facility]ORIZON Clinical Trial*[id number] 08/19/2006 09/08/2014 Overview: Renamed Per Clinical Trials Billing Project. Horizon AMI clinical trial 263 Single blind trial comparing heparin and IIB/IIIA with bivalirudin, and Taxus vs bare metal stent. Patient Follow-up for 5 years Family Services Coordinator: Trent Sevilla Verduzco [phone] Menopause 08/29/2002 02/23/2017 LOC PRIM [id number] 05/29/200206/23 Dyslipidemia, goal to be determined 05/29/2002 05/07/2009 Overview: Per Lipid Taxonomy. 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 02/23/2017 documented as of this encounter (statuses as of 10/13/2023) Immunizations Name Administration Dates Next Due COVID-19 mRNA, LNP-s, No Pre serve, 2-Dose Series (Moderna) 11/12/2020,10/01/2020 H1N1 2009 Influenza, IM 06/08/2009 HEP A - Hepatitis A (Adult > 18 yrs) 04/02/2018, 07/24/2017 01/24/2018 Hepatitis B, 20+ yrs 04/02/2018,09/29/2017,07/2408/24/2017 Pneumococcal Conjugate Vacc, 13 Valent (Prevnar) 10/22/2014 Pneumococcal Polysaccharide PPV23 (Pneumovax) 02/23/2017,02/26/2007 Seasonal Influenza Intranasal 03/29/2013 Seasonal Influenza Virus Vac cine, Unspecified Formulation 02/27/2023 Seasonal Influenza, PF, 6 M & above, [...] Smoking Tobacco: Every Day Cigarettes 0.3 20 Last attempted to quit: 06/28/2023 Smokeless Tobacco: Never Comments:10/11/2023 6-7 cigar ettes per day, decline pamphlet. Alcohol Use Standard Drinks/Week Comments No 0 [...] Telephone Encounter - Beto Cosby DO - 10/13/2023 1:06 PM EDTSigned Prescriptions: Disp Refills oxyCODONE HCl 5 MG Oral Tablet (Oxy IR) 100 Ta*0 Sig: Take 1 Tablet by mouth every 6 hours as needed (pain). Authorizing Provider: BETO COSBY * Telephone Encounter - Forest Chahal [facility] - 10/13/2023 9:24 AM EDTPending Prescriptions: Disp Refills oxyCODONE HCl 5 MG Oral Tablet (Oxy IR) 100 Ta*0 Sig: Take 1 Tablet by mouth every 6 hours as needed (pain). * Telephone Encounter - Forest Chahal [facility] - 10/13/2023 9:23 AM EDT I have reviewed the patients controlled substance dispensing history in the Prescription Drug Monitoring Program in compliance with the [facility] regulations before prescribing a controlled substance. PDMP checked on 10/13/2023. Pending Prescriptions: Disp Refills oxyCODONE HCl 5 MG Oral Tablet (Oxy IR) 100 Ta*0 Sig: Take 1 Tablet by mouth every 6 hours as needed (pain). Last Visit: 07/28/2023 (in office), 08/24/2020 (telemedicine) Next Visit: 11/02/2023 Date medication was last filled: 09/21/23 Date medication is due for refill: 10/15/23 Pharmacy: [facility], [address] [place] Is this request for a controlled [...] Please approve if appropriate. Thank You, Forest Corodba [facility] Clinical Pharmacist Centralized Clinical Pharmacy Services (CCPS) (formerly Telepharmacy) 10/13/2023, 9:23 AM * Telephone Encounter - Alberta Heath CPhT - 10/12/2023 9:29 AM EDT Did you pend patient's preferred pharmacy and medication before forwarding?yes [facility], [address] [place] Pending Prescriptions: Disp Refills oxyCODONE HCl 5 MG Oral Tablet (Oxy IR) 100 Ta*0 Sig: Take 1 Tablet by mouth every 6 hours as needed (pain). Last Visit: 07/28/2023 (in office), 08/24/2020 (telemedicine) Next Visit: 11/02/2023 If no future appointments scheduled, and last appointment is greater than a year ago, please schedule patient for a follow-up appointment Last date the medication was ordered: 09/21/2023 Is this request for a controlled substance?Yes, What was the last refill date 09/21/2023 w/ quantity 100 and dosage 5mg and [...] found in Results Review. Patient Phone Numbers Home Phone Labs: Lab Results Component Value Date/Time CREAT 1.0 09/07/2023 11:59 AM CREAT 0.75 10/07/2022 12:00 AM CREAT 1.1 (H) 02/17/2020 01:00 PM POTASSIUM 4.7 07/18/2023 09:59 AM POTASSIUM 3.8 10/07/2022 12:00 AM POTASSIUM 4.5 02/17/2020 01:00 PM TSH 0.85 03/02/2023 09:17 AM TSH 0.79 04/04/2017 11:34 AM LDLCALC 54 02/21/2022 03:23 PM LDLCALC 75 04/04/2017 11:34 AM LDLDIRECT 150 (H) 07/18/2018 12:17 PM ALT 12 07/18/2023 09:59 AM ALT 12 02/17/2020 01:00 PM HGBA1C 5.8 (H) 03/02/2023 09:17 AM HGBA1C 6.4 (H) 01/15/2007 11:30 AM documented in this encounter Plan of Treatment Upcoming Encounters Date Type Department Care Team (Late st Contact Info) Description 10/18/2023 9:00 AM EDT Telemedicine [facility] [address] [address] Kilo Foster PA-C [address] [place] [address] Judy Hunt, [facility] [employer] Tub Machine Operator [address] [place] [address] 10/25/2023 Hospital Encounter [facility], OPERATING ROOM GM, [address] [place] [address] [place] [address] Albin Marr MD [address] [place] [address] 11/02/2023 1:40 PM EDT Office Visit [facility] [address] [place] [address] Erica Marsh MD [address] [place] [address] 11/09/2023 12:30 PM EDT Home Visit [facility], [facility] [address] [place] [address] Areli Washburn RN [address] [place] [address] 11/15/2023 1:30 PM EDT Imaging Vascular Lab, [facility] [address] [place] [address] 11/15/2023 2:30 PM EDT Imaging Vascular Lab, [facility] [address] [address] 11/22/2023 2:50 PM EDT Office Visit Vascular Surgery, [facility] [address] [place] [address] Albin Marr MD [address] [place] [address] 01/02/2024 9:00 AM EDT Office Visit Pharmacy, [facility] [address] [address] [facility] [address] [facility] [place] [address] Scheduled Procedures Name Priority Associated Diagnoses Date/Ti me CATHETER PLACEMENT, ABDOMINAL-LOWER EXTREMITY, FIRST ORDER BRANCH PVD (peripheral vascular disease) with claudication (HCC) ANGIOGRAPHY EXTREMITY BILATERAL PVD (peripheral vascular disease) with claudication (HCC) IMAGING SUPERVISION & INTERPRETATION ABDOMINAL AO PVD (peripheral vascular disease) with claudication (HCC) ILIAC ARTERY REVASC W/ STENT+ANGIOPLASTY PVD (peripheral vascular disease) with claudication (HCC) COLONOSCOPY FLEXIBLE PROXIMA L DIAGNOSTIC Recall History of colonic polyps Health Maintenance Due Date Last Done Comments DISCUSS TOBACCO CESSATION (REFER TO SMARTSET #3291) 1945 Alpha-1 Antitrypsin 1965 Diabetic Foot Exam 1965 DXA Scan 09/04/2016 09/04/2013, 09/04/2013 *ADVANCE DIRECTIVE NOT ON FILE 06/09/2019 COVID-19 Vaccine ( season) 2023 11/12/2020, 10/01/2020 Depression Screening 06/02/2023 06/02/2022 Diabetic Eye Exam 07/21/2023 07/20/2022 HbA1c 09/01/2023 03/02/2023, 12/21, 08/19/2006, Additional history exists Albumin/Creatinine Ratio 03/02/2024 023, 02/21/2022, 07/23/2019 CKD PHOS USE SMARTSET 38167 03/02/202402/19, 10/07/2022, 02/21/2022, Additional history exists GFR 03/08/2024 09/07/2023, 06/23, 04/18/2023, Additional history exists CKD HGB USE SMARTSET 22193 09/06/202409/06, 09/07/2023, 07/18/2023, Additional history exists O2 ASSESSMENT COMPLETED IN PAST YEAR FOR COPD 10/04/2024 10/05/2023 Colonoscopy 07/03/2028 07/03/2023, 08/28/2012 DTaP,Tdap,and Td Vaccines (4 - Td or Tdap) 06/02/2032 06/02/2022, 02/11/2011, 05/22/1995 Pneumococcal Vaccine: 65+ Years Completed 02/23/2017, 10/22/2014, 02/26/2007 Hepatitis B Completed 04/02/2018, 09/19, 07/24/2017 Zoster Vaccines Completed 01/20/2020, 07/23/2019 Influenza Vaccine (FLU shot) Completed 02/27/2023, 02/27/2023, 02/21/2022, Additional history exists RETIRED - COLONOSCOPY-EVERY 5 YRS AGES 18-100 Discontinued 07/03/2023, 08/28/2012 GARDASIL-HPV IMMUNIZATION SERIES Aged Out No longer eligible based on patient's age to complete this topic MENINGOCOCCAL (MENACTRA/MENVEO) Aged Out No longer eligible based on patient's age to complete this topic documented as of this encounter Medical Devices Not on filedocumented as of this encounter Visit Diagnoses Diagnosis PVD (peripheral vascular disease) with claudication (HCC)- Primary Peripheral vascular disease, unspecified PVD (peripheral vascular disease) with claudication (HCC) Peripheral vascular disease, unspecified Chronic pain syndrome documented in this encounter Advance Directives * Full Code (Latest Code Status on File) Date Activated Date Inactivated Comments 02/20/2020 5:50 PM 02/20/2020 11:10 PM This order reflects the patients wishes and were consensually agreed upon. * Full Code Date Activated Date Inactivated Comments 11/24/2008 2:13 PM 11/25/2008 12:53 PM This order re flects the patients wishes and were consensually agreed upon. Question Answer Comments Discussion of Advance Directives occurred with: Patient Does the patient have a Living Will? No Does the patient have Health Care Power of Attor zee? No Care Teams Poultry And Fish Butcher Relationship Specialty Start Date End Date Roman Ennis III, MD [address] [place] [address] PCP - General Family Medicine 06/28/18 documented as of this encounter
--- OUTSIDE RECORDS SUMMARY | 2023-10-18 15:30 | External Medical Summary | Summary of Care ---
Author Name Unknown Organization [facility] Address [address] [place] [facility] [place] [address] Phone [phone] Care Team Providers Care Modern And Contemporary Art Curator Name Role Phone Loli NORWOOD MD, Roman Barraza Primary Care Provider [phone] Reason for Visit * Reason Comments [facility]: Maintenance Encounter Details Date Type Department Care Team (Late st Contact Info) Description 10/05/2023 2:00 PM EDT Home Visit [facility], [facility] [address] [facility] [place] [address] Areli Washburn RN [address] [facility] [place] [address] Advanced care planning/counseling discussion* Allergies Active Allergy Reactions Criticality Noted Date Comments Isosorbide Mononitrate 12/24/2007 Severe headaches Nsaids 05/29/2002 Tramadol Hcl Nausea/vomiting Low 01/09/2008 UGI distress documented as of this encounter (statuses as of 10/05/2023) Medications Medication Sig Dispensed Refills Start Date [...] 03/31/2023 Active Gabapentin 300 MG Oral Capsule (Neurontin)Indicatio ns:Hip pain, left Take one tablet by mouth in the morning and at noon and two tablets by mouth before bed. 120 Capsule 11 05/03/2023 Active Ondansetron HCl 4 MG Oral Tablet (Zofran)Indications: Nausea Take 1 Tablet by mouth every 8 hours as needed for Nausea. 20 Tablet 0 07/18/2023 Active Eliquis 5 MG Oral Tablet [...] morning. 30 Tablet 6 08/09/2023 Active Nystatin 446004 UNIT/GM External Powder (Nystop) Apply topically to affected area 3 times a day. Apply to area under breasts 60 g 3 08/24/2023 Active Clopidogrel Bisulfate 75 MG Oral Tablet (Plavix) Take 1 Tablet by mouth in the morning. 30 Tablet 5 09/06/2023 Active oxyCODONE HCl 5 MG Oral Tablet (Oxy IR)Indications:Chron ic pain syndrome Take 1 Tablet by mouth every 6 hours as needed (pain). 100 Tablet 0 09/21/2023 Active levETIRAcetam 500 MG Oral Tablet (Keppra) TAKE ONE TABLET BY MOUTH TWICE DAILY 60 Tablet 6 10/03/2023 Active documented as of this encounter (statuses as of 10/05/2023) Active Problems Problem Noted Date Diagnosed Date PVD (peripheral vascular disease) with claudicat ion 09/20/2023 DDD (degenerative disc disease), lumbar 09/20/19 24 Seizure disorder, complex pa rtial, without intractable [...] current use of insulin 07/28/2023 Atherosclerosis of [place] co ronary artery without angina pectoris 07/28/2023 [...] cardiomyopathy 07/18/2018 Coronary artery disease invo lving [place] coronary artery of [place] heart without angina pectoris 05/08/2018 Anxiety state 05/08/2018 ADVANCE DIRECTIVE INFORMATION 03/23/2018 Overview: No, Advance Directive brochure offered , patient declined. Incomplete uterovaginal prolapse 09/29/2017 Cystocele, lateral 09/29/2017 Vaginal atrophy 09/29/2017 Hepatitis C antibody test positive 05/09/2017 Overview: HCV treated; SVR Confirmed 03/05/2018 Controlled substance agreement signed 02/23/2017 Biventricular implantable ca rdioverter-defibrillator in situ 08/07/2013 Last Assessment & Plan: [place] [facility] [place] History of colonic polyps 09/04/2012 Overview: 09/01/2012: adenoma, repeat in 3 years ICD-10 update of inactive term Dyslipidemia, goal LDL below 70 05/07/2009 Overview: Per Lipid Taxonomy. OLD MYOCARDIAL INFARCT 12/11/2008 Overview: Modified by Acute [place] Protocol #5. [facility] right coronary bare metal stents S/P angioplasty with stent 09/07/2006 History of tobacco use documented as of this encounter (statuses as of 10/05/2023) Resolved Problems Problem Noted Date Diagnosed Date [...] for Patients with Cardiovascular Disease Project #: [id number] PI: Peyton Conn MD [phone] [employer] CARDIO RESEARCH OTHER*[id number] 01/15/2007 06/28/2016 Overview: Renamed Per Clinical Trials Billing Project. Study Title: Genomic Markers for Patients with Cardiovascular Disease Project #: [id number] PI: Peyton Conn MD [phone] LV (left ventricular) mural thrombus 10/30/2006 12/28/2017 Tobacco use disorder 09/07/2006 010 Acute inferior myocardial infarction 08/19/2006 12/11/2008 Overview: Modified by Acute [place] Protocol #5. [facility] right coronary bare metal stents EXAMINATION OF PARTICIPANT I N CLINICAL TRIAL - [facility] 08/19/2006 09/04/2009 Overview: Renamed Per Clinical Trials Billing Project. [facility] AMI clinical trial 263 Single blind trial comparing heparin and IIB/IIIA with bivalirudin, and Taxus vs bare metal stent. Patient Follow-up for 5 years It Service Continuity Supervisor: Trent Verduzco [phone] [facility] Clinical Trial*[id number] 08/19/2006 09/08/2014 Overview: Renamed Per Clinical Trials Billing Project. [facility] AMI clinical trial 263 Single blind trial comparing heparin and IIB/IIIA with bivalirudin, and Taxus vs bare metal stent. Patient Follow-up for 5 years It Service Continuity Supervisor: Trent Verduzco [phone] Menopause 08/29/2002 02/23/2017 LOC PRIM [id number] 05/29/200206/23 Dyslipidemia, goal to be determined 05/29/2002 05/07/2009 Overview: Per Lipid Taxonomy. 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 Alcohol Use Standard [...] Sign Reading Time Taken Comments Blood Pressure 138/82 10/05/2023 12:28 PM EDT Pulse 60 10/05/2023 12:28 PM EDT irre gular Temperature 36.6 C (97.8 F) 10/05/2023 12:28 PM E DT Respiratory Rate 18 10/05/2023 12:28 PM EDT Oxygen Saturation 94% 10/05/2023 12:28 PM EDT Inhaled Oxygen Concentration - - Weight 71.2 kg (157 lb) 10/05/2023 12:28 PM EDT Height - - Body Mass Index 28.74 09/07/2023 10:51 AM EDT documented in this encounter Progress Notes * Areli Washburn RN - 10/05/2023 12:18 PM EDT [facility] Assistant Visit Date: 10/05/2023 Time: 12:18 PM Name: Radha Tong : 1945 Current Concerns: Patient seen for follow up- COPD, CHF, CKD, Afib, HTN Reports doing well. Son and DIL assist with groceries. Patient now has washer and dryer- doing own laundry- cooking own meals. Does not drive. Active in her hindu. VS wnl Lungs clear slightly diminished Sob with exertion Mild nonpitting edema left foot Voiding without difficulty Bowels wnl- per report Appetite good Taking fluids well. Physical Exam: BP 138/82 (BP Site: Left Arm, BP Position: Sitting, BP Cuff Size: Regular) | Pulse 60 Comment: irregular | Temp 36.6 C (97.8 F) (Tympanic) | Resp 18 | Wt 71.2 kg (157 lb) | SpO2 94% | BMI 28.74 kg/m | BSA 1.76 m Pain 4 Physical Exam Constitutional: Appearance: Normal appearance. Cardiovascular: Rate and Rhythm: Normal rate. Rhythm irregular. Pulses: Normal pulses. Heart sounds: Normal heart sounds. Pulmonary: Effort: Pulmonary effort is normal. Breath sounds: Normal breath sounds. Abdominal: General: Bowel sounds are normal. Palpations: Abdomen is soft. Musculoskeletal: General: Normal range of motion. Left lower leg: Edema present. Skin: General: [...] Cardiovascular: Positive for leg swelling. Gastrointestinal: Negative. Genitourinary: Negative. Musculoskeletal: Positive for arthralgias and gait problem. Skin: Negative. Hematological: Negative. Psychiatric/Behavioral: Negative. Medication Reconciliation: (See medication list) Does patient take medications as ordered: Yes Patient Well Being: PHQ2/9: No questionnaires available. Within normal limits MAHC-10 Completed this Visit: No. No falls since last visit Advanced Care Planning: See ACP note Patient's Goals of Care: Go to hindu every Mon/Mon Stay at home with her cats Reinforcement/Education: Reviewed HF symptom monitoring: -Weigh self daily in am, post-void and record -Do not add salt to food, avoid foods high in sodium -Limit fluids to 2 liters per day -Report the following: ->2 lb weight gain in one day or 5 lbs in a week to PCP -increased edema in feet, abdomen or hands -increased SOB and cough, especially if at night -increased fatigue or vertigo COPD: Pt instructed to: -Call with increased SOB, wheezing, chest tightness, increased cough, increased sputum with change in color or consistency and fever. -Wash hands often -Drink plenty of fluids -Use inhalers as directed, do not stop or skip doses -Avoid stress -Rest when tired or SOB -Avoid triggers -Clean inhalers once a week Reinforced medication regimen. Timing., Dosing., and Purspose. Treatment/Plan: Continue medications as prescribed Keep all upcoming MD appointments Fall precautions Fluids encouraged Weigh daily Low na diet RN CM follow up in 5 weeks. Home Interventions Provided: Reinforced current Plan of Care, including self-management and medication regimen Patient's 'Red Flags': Increase of 2-3lbs/ 24 hours Increase in shortness of breath/ edema Lightheadedness/ dizziness Patient Needs to Remember: Call [facility] with any medical concerns/ red flags Referrals Needed: N/a Follow Up: Is there cellular connectivity/connectivity in the home? Yes Does the patient have internet in the home? No Patient encouraged to call the intake phone number for all urgent but not emergent issues. Is the patient new to [employer] [facility] within the last 30 days? No, Assess appropriateness for upcoming telehealth visits. Cancel telehealth visits & schedule home visit with care support team member(s)as indicated. Provider is in agreement with Plan of Care: Yes Scheduled to follow up with patient in 5 weeks. Areli Coates RN 10/05/2023 12:18 PM documented in this encounter Miscellaneous Notes * ACP (Advance Care Planning) - Areli Washburn, LISA - 10/05/2023 12:48 PM EDT Patient-centered Communication 10/05/2023 The patient/surrogate voluntarily agreed to participate in [...] SmartLink Most Recent Value Past ~10 years 10/05/2023 12:49 Discerning What Matters Most to the Patient In their own words, patient's UNDERSTANDING of their illness is: I have heart disease, COPD and need to quit smoking. Watch my weight and fluid intake. 10/05/2023 I have heart disease, COPD and need to quit smoking. Watch my weight and fluid intake. Their current SYMPTOMS include: Pain 05/25/2023 They say their illness has CHANGED THEIR LIFE by: Feel like a burden to family/loved ones 05/25/2023 The patient thinks COMPLICATIONS in the future may be: More hospitalizations;More pain 05/25/2023 Was PROGNOSIS discussed? No 12/21/2022 The patient's HOPES are: Maintain current functional abilities;Avoid further hospitalization 05/25/2023 The patient defines LIVING WELL as: taking care of my own houshold, cooking for myself- being happ 05/25/2023 The patient's FEARS/WORRIES about illness are: Being a burden to family 05/25/2023 The patient's cultural or spiritual BELIEFS that may affect health care decisions: Voodoo 05/25/2023 Source: Content from [employer] [facility] Aligning Care With What Matters Most: Synopsis SmartLink Most Recent Value Past ~10 years 05/25/2023 11:59 Aligning Care With What Matters Most Interventions/Choices: CPR;Intubation/mechanical ventilation;Non-invasive ventilation or BIPAP;IV hydration;Transport;Dialysis;Lab draws;Blood transfusion;Surgical procedure;Antibiotic therapy;Artificial nutrition;Radiation therapy;Chemotherapy 05/25/2023 CPR;Intubation/mechanical ventilation;Non-invasive ventilation or BIPAP;IV hydration;Transport;Dialysis;Lab draws;Blood transfusion;Surgical procedure;Antibiotic therapy;Artificial nutrition;Radiation therapy;Chemotherapy Rationale for Decisions Source: Content from [employer] [facility] 10 minutes spent in direct [id number] discussion today, Areli Coates, RN documented in this encounter Plan of Treatment Upcoming Encounters Date Type Department Care Team (Late st Contact Info) Description 10/11/2023 1:50 PM EDT Office Visit Vascular Surgery, [facility] [address] [place] [address] Albin Marr MD [address] [place] [facility] [place] [address] 10/18/2023 9:00 AM EDT Telemedicine [facility] [address] [place] [address] Kilo Foster PA-C [address] [place] [address] Judy Hunt, Community Health Hearing Therapy Teacher [address] [place] [address] 11/02/2023 1:40 PM EDT Office Visit Family Practice [facility] [address] [facility] [place] [address] Erica Marsh MD [address] [facility] [place] [address] 11/09/2023 12:30 PM EDT Home Visit [facility] [place], [facility] [address] [place] [address] Areli Washburn, LISA [address] [place] [address] 01/02/2024 9:00 AM EDT Office Visit Pharmacy, [facility] [address] [place] [address] [facility] [address] [place] [address] Scheduled Procedures Name Priority Associated Diagnoses Date/Ti me COLONOSCOPY FLEXIBLE PROXIMA L DIAGNOSTIC Recall History [...] 023, 02/21/2022, 07/23/2019 CKD PHOS USE SMARTSET 36554 03/02/202402/19, 10/07/2022, 02/21/2022, Additional history exists GFR 03/08/2024 09/07/2023, 06/23, 04/18/2023, Additional history exists O2 ASSESSMENT COMPLETED IN PAST YEAR FOR COPD 08/28/2024 08/29/2023 CKD HGB USE SMARTSET 23363 09/06/202409/06, 09/07/2023, 07/18/2023, Additional history exists Colonoscopy 07/03/2028 07/03/2023, 08/28/2012 DTaP,Tdap,and Td Vaccines [...] the patient have Health Care Power of Flight Operations Specialist? No Care Teams Modern And Contemporary Art Curator Relationship Specialty Start Date End Date Roman Ennis III, MD [address] [facility] [place] [address] PCP - General Family Medicine 06/28/18 documented as of this encounter
--- OUTSIDE RECORDS SUMMARY | 2023-10-18 15:30 | External Medical Summary | Summary of Care ---
Author Name Unknown Organization [facility] Address [address] [place] [address] Phone [phone] Care Team Providers Care Burrer Hand Name Role Phone Loli NORWOOD MD, Roman Barraza Primary Care Provider [phone] Reason for Visit * Reason Onset Date Comments Hospital Follow-Up 07/06/2023 Patient cance led HD appt scheduled for 07/0707/06/2023 Encounter Details Date Type Department Care Team (Late st Contact Info) Description 07/06/2023 Telephone Family Practice [facility] [place] 200 [facility] [place] [address] Roman Ennis III, MD [address] [place] [address] Hospital Follow-Up (Patient canceled HD ap... Allergies Active Allergy Reactions Criticality Noted Date [...] Active Nitroglycerin 0.4 MG Sublingual Tablet Sublingual (Nitrostat)Indication s:ASCVD (arteriosclerotic cardiovascular disease),Chest pain, unspecified type DISSOLVE ONE TABLET UNDER THE TONGUE NEEDED FOR CHEST pain, maximum THREE doses 25 Tablet 5 03/01/2023 Active Pantoprazole Sodium 40 MG Oral Tablet Delayed Release (Protonix)Indications :Abdominal pain, epigastric TAKE ONE TABLET BY MOUTH [...] 62.5-25 MCG/ACT Inhalation Aerosol Powder Breath Activated (umeclidinium-vilante rol) INHALE ONE PUFF EVERY DAY 180 Blister Dosing Unit 1 03/31/2023 Active Gabapentin 300 MG Oral Capsule (Neurontin)Indication s:Hip pain, left Take one tablet by mouth in the morning and at noon and two tablets by mouth before bed. 120 Capsule 11 05/03/2023 Active documented as of this encounter (statuses [...] current use of insulin 07/28/2023 Atherosclerosis of [place] co ronary artery without angina pectoris 07/28/2023 [...] cardiomyopathy 07/18/2018 Coronary artery disease invo lving [place] coronary artery of [place] heart without angina pectoris 05/08/2018 Anxiety state 05/08/2018 ADVANCE DIRECTIVE INFORMATION 03/23/2018 Overview: No, Advance Directive brochure offered , patient declined. Incomplete uterovaginal prolapse 09/29/2017 Cystocele, lateral 09/29/2017 Vaginal atrophy 09/29/2017 Hepatitis C antibody test positive 05/09/2017 Overview: HCV treated; SVR Confirmed 03/05/2018 Controlled substance agreement signed 02/23/2017 Biventricular implantable ca rdioverter-defibrillator in situ 08/07/2013 Last Assessment & Plan: Followed by [facility] cardiology History of colonic polyps 09/04/2012 Overview: 09/01/2012: adenoma, repeat in 3 years ICD-10 update of inactive term Dyslipidemia, goal LDL below 70 05/07/2009 Overview: Per Lipid Taxonomy. OLD MYOCARDIAL INFARCT 12/11/2008 Overview: Modified by Acute [place] Protocol #5. [facility] right coronary bare metal stents S/P angioplasty with stent 09/07/2006 History of tobacco use documented as of this encounter (statuses as of 10/05/2023) Resolved Problems Problem Noted Date Diagnosed Date Resolved Date Chronic kidney disease, stage 3b 07/31/2023 08/31/2023 Overview: Per CKD protocol Stage 3 chronic kidney disease 07/28/2023 08/03/2023 Overview: Per CKD protocol Atrial fibrillation 02/27/2023 03/16/20 Atrial fibrillation 02/27/2023 03/16/20 23 Hypertensive heart [...] for Patients with Cardiovascular Disease Project #: [id number] PI: Peyton Conn MD [phone] [employer] CARDIO RESEARCH OTHER*[id number] 01/15/2007 06/28/2016 Overview: Renamed Per Clinical Trials Billing Project. Study Title: Genomic Markers for Patients with Cardiovascular Disease Project #: [id number] PI: Peyton Conn MD [phone] LV (left ventricular) mural thrombus 10/30/2006 12/28/2017 Tobacco use disorder 09/07/2006 010 Acute inferior myocardial infarction 08/19/2006 12/11/2008 Overview: Modified by Acute [place] Protocol #5. [facility] right coronary bare metal stents EXAMINATION OF PARTICIPANT I N CLINICAL TRIAL - [facility] 08/19/2006 09/04/2009 Overview: Renamed Per Clinical Trials Billing Project. [facility] AMI clinical trial 263 Single blind trial comparing heparin and IIB/IIIA with bivalirudin, and Taxus vs bare metal stent. Patient Follow-up for 5 years Machinist Supervisor: Trent Verduzco [phone] [facility] Clinical Trial*[id number] 08/19/2006 09/08/2014 Overview: Renamed Per Clinical Trials Billing Project. [facility] AMI clinical trial 263 Single blind trial comparing heparin and IIB/IIIA with bivalirudin, and Taxus vs bare metal stent. Patient Follow-up for 5 years Machinist Supervisor: Trent Verduzco [phone] Menopause 08/29/2002 02/23/2017 LOC PRIM [id number] 05/29/200206/23 Dyslipidemia, goal to be determined 05/29/2002 [...] encounter Miscellaneous Notes * Telephone Encounter - Peter Mccormick, OPAL - 07/06/2023 4:19 PM EST Patient called in to cancel her Hospital Discharge appointment due to transportation issues. Patient has rescheduled her appointment for 07/28/23 (per pts request) New appointment is scheduled with Dr Marsh documented in this encounter Plan of Treatment Upcoming Encounters Date Type Department Care Team (Late st Contact Info) Description 10/11/2023 1:50 PM EDT Office Visit Vascular Surgery, [facility] [address] [place] [address] Albin Marr MD [address] [place] [address] 10/18/2023 9:00 AM EDT Telemedicine [facility], [facility] [address] [place] [address] Kilo Foster PA-C [address] [place] [address] Judy Hunt, Community Health Data Management Associate [address] [place] [address] 11/02/2023 1:40 PM EDT Office Visit Family Practice [facility] 200 [facility] [place] [address] Erica Marsh MD [address] [facility] [place] [address] 11/09/2023 12:30 PM EDT Home Visit [facility], [facility] [address] [place] [address] Areli Washburn, LISA [address] [place] [address] 01/02/2024 9:00 AM EDT Office Visit Pharmacy, [facility] [address] [place] [address] [facility] [address] [place] [address] Scheduled Procedures Name Priority Associated Diagnoses Date/Ti me COLONOSCOPY FLEXIBLE PROXIMA L DIAGNOSTIC Recall History of colonic polyps Health Maintenance Due Date Last Done Comments DISCUSS TOBACCO CESSATION (REFER TO SMARTSET #3991) 1945 Alpha-1 Antitrypsin 1965 Diabetic Foot Exam 1965 DXA Scan 09/04/2016 09/04/2013, 09/04/2013 *ADVANCE DIRECTIVE NOT ON FILE 06/09/2019 COVID-19 Vaccine ( season) 2023 11/12/2020, 10/01/2020 Depression Screening 06/02/2023 06/02/2022 Diabetic Eye Exam 07/21/2023 07/20/2022 HbA1c 09/01/2023 03/02/2023, 12/21, 08/19/2006, Additional history exists Albumin/Creatinine Ratio 03/02/2024 023, 02/21/2022, 07/23/2019 CKD PHOS USE SMARTSET 51552 03/02/202402/19, 10/07/2022, 02/21/2022, Additional history exists GFR 03/08/2024 09/07/2023, 06/23, 04/18/2023, Additional history exists CKD HGB USE SMARTSET 06181 09/06/202409/06, 09/07/2023, 07/18/2023, Additional history exists O2 [...] the patient have Health Care Power of Firewall Security Engineer? No Care Teams Burrer Hand Relationship Specialty Start Date End Date Roman Ennis III, MD [address] [place] [address] PCP - General Family Medicine 06/28/18 documented as of this encounter
--- OUTSIDE RECORDS SUMMARY | 2023-10-18 15:30 | External Medical Summary | Summary of Care ---
Author Name Unknown Organization [facility] Address [address] [place] [address] Phone [phone] Care Team Providers Care Ethologist Name Role Phone Loli NORWOOD MD, Roman Barraza Primary Care Provider [phone] Encounter Details Date Type Department Care Team (Late st Contact Info) Description 10/10/2023 Population Health External Data Unspecified Department Allergies Active Allergy Reactions Criticality Noted Date Comments Isosorbide Mononitrate 12/24/2007 Severe headaches Nsaids 05/29/2002 Tramadol Hcl Nausea/vomiting Low 01/09/2008 UGI distress documented as of this encounter (statuses as of 10/11/2023) Medications Medication Sig Dispensed Refills Start Date [...] morning. 30 Tablet 6 08/09/2023 Active Nystatin 779413 UNIT/GM External Powder (Nystop) Apply topically to [...] hours as needed (pain). 100 Tablet 09/21/2023 Active levETIRAcetam 500 MG Oral Tablet (Keppra) TAKE ONE TABLET BY MOUTH TWICE DAILY 60 Tablet 6 10/03/2023 Active documented as of this encounter (statuses as of 10/11/2023) Active Problems Problem Noted Date Diagnosed Date [...] current use of insulin 07/28/2023 Atherosclerosis of [place] co ronary artery without angina pectoris 07/28/2023 [...] cardiomyopathy 07/18/2018 Coronary artery disease invo lving [place] coronary artery of [place] heart without angina pectoris 05/08/2018 Anxiety state 05/08/2018 ADVANCE DIRECTIVE INFORMATION 03/23/2018 Overview: No, Advance Directive brochure offered , patient declined. Incomplete uterovaginal prolapse 09/29/2017 Cystocele, lateral 09/29/2017 Vaginal atrophy 09/29/2017 Hepatitis C antibody test positive 05/09/2017 Overview: HCV treated; SVR Confirmed 03/05/2018 Controlled substance agreement signed 02/23/2017 Biventricular implantable ca rdioverter-defibrillator in situ 08/07/2013 Last Assessment & Plan: Followed by [facility] cardiology History of colonic polyps 09/04/2012 Overview: 09/01/2012: adenoma, repeat in 3 years ICD-10 update of inactive term Dyslipidemia, goal LDL below 70 05/07/2009 Overview: Per Lipid Taxonomy. OLD MYOCARDIAL INFARCT 12/11/2008 Overview: Modified by Acute [place] Protocol #5. [facility] right coronary bare metal stents S/P angioplasty with stent 09/07/2006 History of tobacco use documented as of this encounter (statuses as of 10/11/2023) Resolved Problems Problem Noted Date Diagnosed Date [...] for Patients with Cardiovascular Disease Project #: [id number] PI: Peyton Conn MD [phone] GENOMICS CARDIO RESEARCH OTHER*[id number] 01/15/2007 06/28/2016 Overview: Renamed Per Clinical Trials Billing Project. Study Title: Genomic Markers for Patients with Cardiovascular Disease Project #: [id number] PI: Peyton Conn MD [phone] LV (left ventricular) mural thrombus 10/30/2006 12/28/2017 Tobacco use disorder 09/07/2006 010 Acute inferior myocardial infarction 08/19/2006 12/11/2008 Overview: Modified by [facility] [place] Protocol #5. [facility] right coronary bare metal stents EXAMINATION OF PARTICIPANT I N CLINICAL TRIAL - HORIZONS 08/19/2006 09/04/2009 Overview: Renamed Per Clinical Trials Billing Project. [facility] AMI clinical trial 263 Single blind trial comparing heparin and IIB/IIIA with bivalirudin, and Taxus vs bare metal stent. Patient Follow-up for 5 years Director On Air: Trent Verduzco [phone] [facility] Clinical Trial*[id number] 08/19/2006 09/08/2014 Overview: Renamed Per Clinical Trials Billing Project. [facility] AMI clinical trial 263 Single blind trial comparing heparin and IIB/IIIA with bivalirudin, and Taxus vs bare metal stent. Patient Follow-up for 5 years Director On Air: Trent Verduzco [phone] Menopause 08/29/2002 02/23/2017 LOC PRIM [id number] 05/29/200206/23 Dyslipidemia, goal to be determined 05/29/2002 05/07/2009 Overview: Per Lipid Taxonomy. 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 02/23/2017 documented as of this encounter (statuses as of 10/11/2023) Immunizations Name Administration Dates Next Due COVID-19 [...] Info) Description 10/18/2023 9:00 AM EDT Telemedicine [facility] [place], [facility] [address] [facility] [place] [address] Kilo Foster PA-C [address] [facility] [place] [address] Judy Hunt, [facility] Technologist [address] [place] [address] 10/25/2023 Hospital Encounter [facility], OPERATING RO[facility] [address] [place] [facility] [place] [address] Albin Marr MD [address] [place] [facility] [place] [address] 11/02/2023 1:40 PM EDT Office Visit Family Practice [place] Mynor Hunt [address] [place] [address] Erica Marsh MD [address] [place] [address] 11/09/2023 12:30 PM EDT Home Visit [facility] [place], [facility] [address] [facility] [place] [address] Areli Washburn, RN [address] [facility] [place] [address] 11/15/2023 1:30 PM EDT Imaging Vascular Lab, [facility] [place] [address] [facility] [place] [address] 11/15/2023 2:30 PM EDT Imaging Vascular Lab, [facility], [address] [place] [address] 11/22/2023 2:50 PM EDT Office Visit Vascular Surgery, [facility] [address] [facility] [place] [address] Albin Marr MD [address] [place] [address] 01/02/2024 9:00 AM EDT Office Visit Pharmacy, [address] [place] [address] [place], [facility] [address] [place] [address] Scheduled Procedures Name Priority Associated Diagnoses Date/Ti [...] Comments DISCUSS TOBACCO CESSATION (REFER TO SMARTSET #[id number]) 1945 Alpha-1 Antitrypsin 1965 Diabetic Foot Exam 1965 DXA Scan 09/04/2016 09/04/2013, 09/04/2013 *ADVANCE DIRECTIVE NOT ON FILE 06/09/2019 COVID-19 Vaccine ( season) 2023 11/12/2020, 10/01/2020 Depression Screening 06/02/2023 06/02/2022 Diabetic Eye Exam 07/21/2023 07/20/2022 HbA1c 09/01/2023 03/02/2023, 12/21, 08/19/2006, Additional history exists Albumin/Creatinine Ratio 03/02/2024 023, 02/21/2022, 07/23/2019 CKD PHOS USE SMARTSET 92073 03/02/202402/19, 10/07/2022, 02/21/2022, Additional history exists GFR 03/08/2024 09/07/2023, 06/23, 04/18/2023, Additional history exists CKD HGB USE SMARTSET 16209 09/06/202409/06, 09/07/2023, 07/18/2023, Additional history exists O2 [...] filedocumented as of this encounter Advance Directives * Full Code [...] Power of Attor zee? No Care Teams Ethologist Relationship Specialty Start Date End Date Roman Ennis III, MD [address] [place] [address] PCP - General Family Medicine 06/28/18 documented as of this encounter
--- OUTSIDE RECORDS SUMMARY | 2023-10-18 15:30 | External Medical Summary | Summary of Care ---
Author Name Unknown Organization [facility] Address [address] [place] [address] Phone [phone] Care Team Providers Care Doughnut Icer Machine Name Role Phone Loli NORWOOD MD, Roman Barraza Primary Care Provider [phone] Reason for Visit * Reason Comments Follow Up Encounter Details Date Type Department Care Team (Late st Contact Info) Description 10/11/2023 1:50 PM EDT Office Visit Vascular Surgery, [facility] [address] [place] [address] Albin Marr MD [address] [place] [address] PVD (peripheral vascular disease) with claudication (HCC)* Allergies Active Allergy Reactions Criticality Noted [...] morning. 30 Tablet 6 08/09/2023 Active Nystatin 109413 UNIT/GM External Powder (Nystop) Apply topically to [...] current use of insulin 07/28/2023 Atherosclerosis of [place] co ronary artery without angina pectoris 07/28/2023 [...] cardiomyopathy 07/18/2018 Coronary artery disease invo lving [place] [...] 08/07/2013 Last Assessment & Plan: Followed by [facility] cardiology History of colonic polyps 09/04/2012 Overview: 09/01/2012: adenoma, repeat in 3 years ICD-10 update of inactive term Dyslipidemia, goal LDL below 70 05/07/2009 Overview: Per Lipid Taxonomy. OLD MYOCARDIAL INFARCT 12/11/2008 Overview: Modified by Acute [place] Protocol #5. [facility] right coronary bare metal stents [...] for Patients with Cardiovascular Disease Project #: [id number] PI: Peyton Conn MD [phone] GENOMICS CARDIO RESEARCH OTHER*[id number] 01/15/2007 06/28/2016 Overview: Renamed Per Clinical Trials Billing Project. Study Title: Genomic Markers for Patients with Cardiovascular Disease Project #: [id number] PI: Peyton Conn MD [phone] LV (left ventricular) mural thrombus 10/30/2006 12/28/2017 Tobacco use disorder 09/07/2006 010 Acute inferior myocardial infarction 08/19/2006 12/11/2008 Overview: Modified by Acute [place] Protocol #5. [facility] right coronary bare metal stents EXAMINATION OF PARTICIPANT I N CLINICAL TRIAL - HORIZONS 08/19/2006 09/04/2009 Overview: Renamed Per Clinical Trials Billing Project. [facility] [place] AMI clinical trial 263 Single blind trial comparing heparin and IIB/IIIA with bivalirudin, and Taxus vs bare metal stent. Patient Follow-up for 5 years Fourchette Sewer: Trent Verduzco [phone] [facility] Clinical Trial*[id number] 08/19/2006 09/08/2014 Overview: Renamed Per Clinical Trials Billing Project. [facility] AMI clinical trial 263 Single blind trial comparing heparin and IIB/IIIA with bivalirudin, and Taxus vs bare metal stent. Patient Follow-up for 5 years Fourchette Sewer: Trent Verduzco [phone] Menopause 08/29/2002 02/23/2017 LOC PRIM [id number] 05/29/200206/23 Dyslipidemia, goal to be determined 05/29/2002 [...] attempted to quit: 06/28/2023 Smokeless Tobacco: Never Tobacco Cessation:Ready to Q uit: No; Counseling Given: No Comments:10/11/2023 6-7 cigarettes per day, decline pamphlet. Alcohol Use Standard [...] Reading Time Taken Comments Blood Pressure 110/64 10/11/2023 1:45 PM EDT Pulse 66 10/11/2023 1:45 PM EDT Temperature 36.5 C (97.7 F) 10/11/2023 1:45 PM ED T Respiratory Rate - - Oxygen Saturation - - Inhaled Oxygen Concentration - - Weight 70.1 kg (154 lb 9.6 oz) 10/11/2023 1:45 P M EDT Height - - Body Mass Index 28.31 09/07/2023 10:51 AM EDT documented in this encounter Progress Notes * Forest Zarate PA-C - 10/11/2023 1:50 PM EDT Images from the original note were not included. Radha Tnog is a 78 year old female. Patient being seen in consultation at the request of Roman Ennis III, MD Chief Complaint: Return, following CTA w/ runoff to assess degree of PAD Left buttock claudication is unchanged. No rest pain or ulcers feet/toes Followed for small AAA, last seen 07/22/[address] Stewart HPI: Patient is a smoker who incidentaly noted to have a 2.8 cm infrarenal aorta with notation of extensive atherosclerotic disease well on CT scan of 03/19/2020 completed at [facility]. USaorta on 06/03/2020 suggesting a 3 cm AAA. Also nooted to have chronic thrombus to R PTV on 11/24/2014 [facility] venous duplex. ABDOMINAL AORTIC ANEURYSM: Patient denies any symptoms related to AAA. Patient's chronic low back pain is unchanged. Patient denies new abdominal pain, flank pain and back pain. 06/22/2021 AAA 3.1 cm as detected by ultrasound. PAD: Left buttock pain and foot numb at rest. Burning base of foot with feeling of "like I have a corn" Worse with ambulation, worse with prolonged sitting, better is she walks with a support (like a chart when she goes shopping) No rest pain or ulcerations No back surgery but DDD of lumbar spine on XR. Pt admits to H/O right sciatica FAMILY HISTORY: No family history of aortic aneurysms. Patient Active Problem List Diagnosis ADVANCE DIRECTIVE INFORMATION S/P angioplasty with stent OLD MYOCARDIAL INFARCT Dyslipidemia, goal LDL below 70 History of tobacco use History of colonic polyps Biventricular implantable cardioverter-defibrillator in situ Controlled substance agreement signed Hepatitis C antibody test positive Incomplete uterovaginal prolapse Cystocele, lateral Vaginal atrophy Coronary artery disease involving [place] coronary artery of [place] heart without angina pectoris Anxiety state History of ischemic cardiomyopathy COPD, group C, by GOLD 2017 classification ([facility]) Essential hypertension with goal blood pressure less than 140/90 Carpal tunnel syndrome, bilateral Trigger ring finger of right hand Trigger ring finger of left hand History of 2019 novel coronavirus disease (COVID-19) Abdominal aortic aneurysm (AAA) without rupture (HCC) Type 2 diabetes mellitus with hemoglobin A1c goal of less than 8.0% (HCC) Cigarette smoker Infrarenal abdominal aortic aneurysm (AAA) without rupture (HCC) Type 2 diabetes mellitus with diabetic chronic kidney disease (HCC) Chronic combined systolic and diastolic congestive heart failure (HCC) Monoplegia, upper limb, nondominant side S/P CVA (cerebrovascular acc) (HCC) Right leg DVT (HCC) Atrial fibrillation (HCC) Other disorders of phosphorus metabolism Breakthrough seizure (HCC) Hip pain, left Food insecurity Hypertensive heart and chronic kidney disease with heart failure and stage 1 through stage 4 chronic kidney disease, or chronic kidney disease (HCC) Chronic obstructive pulmonary disease with (acute) exacerbation (HCC) Acute deep vein thrombosis (DVT) of proximal vein of right lower extremity (HCC) New onset seizure (HCC) Viral hepatitis C Type 2 diabetes mellitus with stage 3b chronic kidney disease, without long-term current use of insulin (HCC) Atherosclerosis of [place] coronary artery without angina pectoris Chronic kidney disease, stage 3b (HCC) Benign hypertension with stage 3b chronic kidney disease (HCC) Hypertensive heart and kidney disease 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 and stage 3b chronic kidney disease (HCC) Seizure disorder, complex partial, without intractable epilepsy (HCC) PVD (peripheral vascular disease) with claudication (HCC) DDD (degenerative disc disease), lumbar Past Medical History: Diagnosis Date Acute inferior myocardial infarction (HCC) 08/19/2006 [facility] right coronary bare metal stents Automatic implantable cardiac defibrillator in situ 11/24/2008 [facility], Dr Bhavani Loya EF 20-25% COMMON MIGRAINE [...] right coronary artery 3 bare metal stents, [facility] CARPAL TUNNEL SURGERY Bilateral 02/20/2020 NEUROPLASTY MEDIAN NERVE AT CARPAL TUNNEL performed by Lore Richey DO at OR [facility] COLONOSCOPY, DIAGNOSTIC (RECTUM) N/A 07/03/2023 hemorrhoids/biopsies show adenomatous polyps/recall 5 years/Colonoscopy/[place] EGD, FLEXIBLE, DIAGNOSTIC N/A 07/03/2023 biopsies normal/EGD/MN INSERT PULSE GENERATOR, EXISTING SINGLE LEAD 08/06/2013 NEW ICD GENERATOR ONLY performed by Tylor Loya MD at [facility] LAP;W/HYSTERECTOMY 02/04/2020 LEFT VENTRICULAR PACING ELECTRODE, ADD-ON 11/24/2008 CS LEAD PLACEMENT WITH INITIAL DEVICE performed by TYLOR LOYA at [facility] MAMMOGRAM - BILATERAL 07/17/2002 Birad Code 2 PACEMAKER-DEFIBRILLATOR ELECTRODE INSERT, SINGLE 08/09/2013 REPLACE LEAD (1 LEAD) performed by Monik Arnold IV, MD at [facility] REMOVE CATARACT, INSERT LENS PROSTH Right REMOVE GALLBLADDER 1990s Cholecystectomy, [place] TENDON SHEATH INCISION, FINGER Bilateral 02/20/2020 TRIGGER FINGER RELEASE performed by Lore Richey DO at OR [facility] VAGINAL DELIVERY ONLY times 5 Social History Socioeconomic History Marital status: Spouse name: Maurice Number of children: 5 Years of education: 12 Highest education level: Not on file Occupational History Occupation: disabled since 08/18/06, SSI Employer: [employer] Tobacco Use Smoking status: Every Day Current packs/day: 0.00 Average packs/day: 0.3 packs/day for 20.0 years (5.0 ttl pk-yrs) Types: Cigarettes Last attempt to quit: 06/28/2023 Years since quittin.2 Smokeless tobacco: Never Tobacco comments: 10/11/2023 6-7 cigarettes per day, decline pamphlet. Vaping Use Vaping status: Never Used Substance and Sexual Activity Alcohol use: No [...] on file Housing Stability: Not on file COMPLETE REVIEW OF SYSTEMS: Cardiovascular: Reports CAD with h/o [place] s/p PCI/Stenting. ICD placement as well. Currently negativefor chest pain. Does have SOB attributed to COPD. H/O LV Apical Thrombus. Neurological: Negative for stroke, TIA, amaurosis fugax All other systems negative except for those noted above and in the history of present illness (HPI). GENERAL MULTI-SYSTEM PHYSICAL EXAM: General Examination: well-developed, awake, alert Head: neck is supple. No jugular venous distention or thyromegaly. Chest: Clear to auscultation bilaterally. No rales. No wheezes. Cardiac: PMI is not displaced, normal S-1 normal S-2. No gallops. Abdominal examination is nondistended, soft, nontender. No hepatomegaly. Extremities: No pedal edema. No clubbing. Neurologic Examination: nonfocal. Pulses: Fem: R 3+, L 0 AT/PT: R 2+, L 0 DIAGNOSTIC STUDIES: 09/28/23 CTA w/ runoff: 3.3 cm AAA with thrombus. Occlusion of the left common iliac artery. Calcified non-obstructive plaque of RCIA. Moderate atheromatous disease results in approximately 50% luminalnarrowing of the P2 segment of the left popliteal artery. Two vessel runoff of the bilateral lower extremities. LCFA has calcified plaque and small, yet patent The above diagnostic images were directly visualized and independently interpreted by me on 10/11/2023 with results as above 08/23/23 HUBERT: 1.2/0.62, triphasic on R, biphasic on L, flat toe PPGs 08/01/23 Abd Aortic Duplex: 3.3 cm AAA, RCIA 1.1 cm, LCIA 0.8 cm 06/30/22 Abd Aortic Duplex: 3.0 cm AAA 06/30/22 BLE Art Duplex: No fem or pop aneurysms 06/30/22 Carotid Duplex: MAXINE 75/25, LICA 69/23, ante verts 06/22/2021; [facility]; Modality: duplex; AAA measures 3.1 cm in greatest transverse dimension. 06/03/2020; [facility]; Modality: duplex; AAA measures 3.0 cm in greatest transverse dimension. 03/19/2020 CT ([place]): 2.8 cm infrarenal aorta CARDIAC STUDIES: Results for orders placed or performed in visit on 09/07/23 CREATININE Result Value Ref Range Creatinine 1.0 0.5 - 1.0 mg/dL Estimated Glomerular Filtration Rate 56 (L) >=60 mL/min CBC Result Value Ref Range WBC 4.82 4.00 - 10.80 K/uL RBC 4.16 3.85 - 5.15 M/uL HGB 13.0 12.0 - 15.3 g/dL HCT 40.6 36.0 - 45.2 % MCV 97.6 81.5 - 97.5 fL MCH 31.3 27.0 - 34.0 pg MCHC 32.0 32.0 - 36.0 g/dL RDW 23.0 11.5 - 15.5 % PLT 155 140 - 400 K/uL MPV 10.0 6.6 - 11.1 fL DIFFERENTIAL, AUTOMATED Result Value Ref Range WBC 4.82 4.00 - 10.80 K/uL Neutrophils % 61.0 40.0 - 75.0 % Lymphocytes % 27.6 18.0 - 42.0 % Monocytes % 9.8 1.0 - 11.0 % Eosinophils % 1.0 0.0 - 6.0 % Basophils % 0.6 0.0 - 2.0 % Absolute Neutrophils 2.94 1.80 - 7.70 K/uL Absolute Lymphocytes 1.33 1.00 - 4.80 K/ul Absolute Monocytes 0.47 0.00 - 1.10 K/uL Absolute Eosinophils 0.05 0.00 - 0.70 K/uL Absolute Basophils 0.03 0.00 - 0.20 K/uL DIFFERENTIAL, TECHNOLOGIST REVIEW Result Value Ref Range nRBCs *Note: Due to a large number of results and/or encounters for the requested time period, some results have not been displayed. A complete set of results can be found in Results Review. The above clinical labs were reviewed by me on 10/11/2023 IMPRESSIONS: Moderate LLE PAD, with mixed etiology claudication, neurogenic and vascular, more so former. With that said, lack of LEFT fem pulse is of concern. CTA w/ runoff revealed LCIA occlusion No rest pain or ulcerations Asymptomatic 3.3 cm AAA. No fem or pop aneurysms by 2022 duplex Asymptomatic less than 50% B/L carotid stenosis H/O superficial lower extremity thrombophlebitis in 07/2020 for which she was placed on a course ofEliquis to prevent further venous thromboembolic disease. ICM, s/p inferior posterior [place] 08/2006, s/p PCI to RCA and 4 BMS 12/2006 Apical thrombus, on Eliquis (not evident on 2023 TTe) LBBB BiV ICD 11/24/2008 gent change 08/06/2013 with revision following day 07/10/2013. HTN Dyslipidemia. Smoker, about 6 cigarettes per day COPD. Prediabetes. CKD III Hepatitis C Lumbar DDD, Chronic back pain with sciatica on left side PLAN: The patient was counseled regarding the pathophysiology and natural history of peripheral vascular disease, as well as the interventional and noninterventional therapeutic options. Needs surgical intervention The patient was counseled regarding the pathophysiology and natural history of abdominal aortic aneurysms, as well as the signs of rupture and the need to initiate emergency medical attention in thatsituation. Asymptomatic 3.3 cm AAA below threshold for intervention. Continue with routine monitoring. Encouraged good BP control, per PCP Encouraged patient to stop smoking. She expressed understanding. Continue Plavix 75 mg for platelet inhibition, stent patency Continue daily lipitor 40 mg for dyslipidemia On Eliquis for H/O apical LV thrombus Needs LCIA stent, perhaps B/L MARCO "kissing" stents due to degree of calcified plaque of proximal RCIA Consent signed Education booklet given to pt Hold Lisinopril day of OR Hold Eliquis 3 days before surgery Pre op instructions given to pt RTC ~ 1 month post op with HUBERT and BLE Art Duplex 1 wk prior SHERLYN Leung, PA-C Section of Vascular and Endovascular Surgery [address] [address] I have reviewed the advanced practitioner's documentation on the date of service referenced in note, and I agree with, and take responsibility for the plan of care. I have reviewed the advanced practitioner's documentation on the date of service referenced in note, and I agree with, and take responsibility for the plan of care. 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 She is aware that this may not cure all of her ails. Will plan for left (possible bilateral/kissing) iliac stent The patient was counseled at length regarding the indications for the procedure and the alternatives. I have discussed with the patient that they are at very high risk for the following anticipated complications due to the patients co-morbidities including heart attack, respiratory complications, kidney failure requiring dialysis, bleeding requiring transfusion/re-operation, hemorrhage/thrombosis /aneurysm formation at the site of catheter insertion, clot or blockage of blood flow to the extremities/intestines/kidneys, re-operation for limb ischemia or amputation. I have also explained to the patient that other risks of the procedure include, but are not limitedto, radiation injury, allergic reaction to the contrast, stroke, transfusion reaction, infection, nerve damage, or . The patient understands the seriousness of the situation and would like to proceed with the procedure. The patient has had a thorough medical evaluation and management of symptoms as outlined above. Theplan is to proceed initially with angiography and then immediate intervention based upon the results of the angiogram. I plan on proceeding with an endovascular procedure as the only other alternative would be an invasive open surgical procedure (which the patient understands may still be required). If the lesion(s) are amenable to an endovascular approach, angioplasty will be performed first forappropriate lesions. Stenting will be performed for occlusions, lesions that are heavily calcified,or eccentric lesions with risk of embolization. Stenting will also be performed for lesions known to have a poor result from angioplasty alone and those lesions that demonstrate a poor result post angioplasty. The [facility] Vascular Surgery Angiography and Endovascular Procedures Booklet was given to the patient. Albin Marr MD Section of Vascular [place] [address] [phone] documented in this encounter Nursing Notes * Elsie Connor PHARM Tech - 10/11/2023 1:49 PM EDT Reviewed the option of transferring scripts to [facility] pharmacy with patient and / or family. Patient stated no change in medications. KRISTIE Remy documented in this encounter Plan of Treatment Upcoming Encounters Date Type Department Care Team (Late st Contact Info) Description 10/18/2023 9:00 AM EDT [facility]medicine [facility] [address] [facility] [place] [address] Kilo Foster PA-C [address] [place] [address] Judy Hunt, Community Health Clin Nurse [address] [place] [address] 10/25/2023 Hospital Encounter [facility], OPERATING ROOM [facility], [address] [place] [id number] Albin Marr MD [address] [place] [address] 11/02/2023 1:40 PM EDT Office Visit [facility] [address] [facility] [place] [address] Erica Marsh MD [address] [facility] [place] [place] [address] 11/09/2023 12:30 PM EDT [facility] [address] [facility] [place] [address] Areli Washburn RN [address] [place] [address] 11/15/2023 1:30 PM EDT Imaging Vascular Lab, [facility] 2nd [facility] [address] [facility] [place] [address] 11/15/2023 2:30 PM EDT Imaging Vascular Lab, [address] [facility] [place] [address] 11/22/2023 2:50 PM EDT Office Visit Vascular Surgery, [facility] [address] [place] [address] Albin Marr MD [address] [place] [address] 01/02/2024 9:00 AM EDT Office Visit Pharmacy, [facility] [address] [place] [address] [facility] [address] [place] [address] Scheduled Orders Name Type Priority Associated Diagnoses Orde r Schedule VASC ANKLE BRACHIAL INDICES WITHOUT PPG (PAD) Medical Imaging Routine PVD (peripheral vascular disease) with claudication (HCC) Ordered: 10/11/2023 VASC [place] ART DUP BILAT LE Medical Imaging Routine PVD (peripheral vascular disease) with claudication (HCC) Ordered: 10/11/2023 Scheduled Procedures Name Priority Associated Diagnoses Date/Ti [...] 023, 02/21/2022, 07/23/2019 CKD PHOS USE SMARTSET 78370 03/02/202402/19, 10/07/2022, 02/21/2022, Additional history exists GFR 03/08/2024 09/07/2023, 06/23, 04/18/2023, Additional history exists CKD HGB USE SMARTSET 90094 09/06/202409/06, 09/07/2023, 07/18/2023, Additional history exists O2 [...] unspecified PVD (peripheral vascular disease) with claudication (HCC)- Primary Peripheral vascular disease, unspecified PVD (peripheral vascular disease) with claudication (HCC) Peripheral vascular disease, unspecified documented in this encounter Advance Directives * [...] Power of Attor zee? No Care Teams Doughnut Icer Machine Relationship Specialty Start Date End Date Roman Ennis III, MD [address] [facility] [place] [address] PCP - General Family Medicine 06/28/18 documented as of this encounter
--- OUTSIDE RECORDS SUMMARY | 2023-10-18 15:31 | External Medical Summary | Summary of Care ---
Author Name Unknown Organization [facility] Address [address] [place] [address] Phone [phone] Care Team Providers Care Binding Machine Operator Name Role Phone Loli NORWOOD MD, Roman Barraza Primary Care Provider [phone] Reason for Visit * Precert (Within 10 days (routine)) - Pending Review Specialty Diagnoses / Procedures Referred By Contac t Referred To Contact Radiology Diagnoses Nasopharyngeal mass Procedures CT NECK W CONTRAST Laurie Herrmann PA-C [address] [place] [address] Referral ID Status Reason Start Date Expiration Date V isits Requested Visits Authorized [id number] Pending Review 09/07/[phone] Encounter Details Date Type Department Care Team (Late st Contact Info) Description 09/07/2023 1:00 PM EDT Imaging Radiology [address] [place] [id number] Nasopharyngeal mass Allergies Active Allergy Reactions Criticality Noted Date Comments Isosorbide Mononitrate 12/24/2007 Severe headaches Nsaids 05/29/2002 Tramadol Hcl Nausea/vomiting Low 01/09/2008 UGI distress documented as of this encounter (statuses as of 09/15/2023) Medications Medication Sig Dispensed Refills Start Date [...] morning. 30 Tablet 6 08/09/2023 Active Nystatin 250024 UNIT/GM External Powder (Nystop) Apply topically to affected area 3 times a day. Apply to area under breasts 60 g 3 08/24/2023 Active oxyCODONE HCl 5 MG Oral Tablet (Oxy IR)Indications:Chron ic pain syndrome Take 1 Tablet by mouth every 6 hours as needed (pain). 100 Tablet 0 08/29/2023 Active Clopidogrel Bisulfate 75 MG Oral Tablet (Plavix) Take 1 Tablet by mouth in the morning. 30 Tablet 5 09/06/2023 Active Hospital, Clinic, or Other Facility Administered Medication Ordered Dose Route Frequency Start Date End Date Status sodium chloride 0.9 % flush/inj 10 mL 10 mL IV PUSH ONCE 09/07/2023 09/08/2023 Ended documented as of this encounter (statuses as of 09/15/2023) Active Problems Problem Noted Date Diagnosed Date Seizure disorder, complex pa rtial, without intractable [...] current use of insulin 07/28/2023 Atherosclerosis of [place] co ronary artery without angina pectoris 07/28/2023 [...] cardiomyopathy 07/18/2018 Coronary artery disease invo lving [place] coronary artery of [place] heart without angina pectoris 05/08/2018 Anxiety state 05/08/2018 ADVANCE DIRECTIVE INFORMATION 03/23/2018 Overview: No, Advance Directive brochure offered , patient declined. Incomplete uterovaginal prolapse 09/29/2017 Cystocele, lateral 09/29/2017 Vaginal atrophy 09/29/2017 Hepatitis C antibody test positive 05/09/2017 Overview: HCV treated; SVR Confirmed 03/05/2018 Controlled substance agreement signed 02/23/2017 Biventricular implantable ca rdioverter-defibrillator in situ 08/07/2013 Last Assessment & Plan: Followed by [facility] cardiology History of colonic polyps 09/04/2012 Overview: 09/01/2012: adenoma, repeat in 3 years ICD-10 update of inactive term Dyslipidemia, goal LDL below 70 05/07/2009 Overview: Per Lipid Taxonomy. OLD MYOCARDIAL INFARCT 12/11/2008 Overview: Modified by Acute [place] Protocol #5. [facility] right coronary bare metal stents S/P angioplasty with stent 09/07/2006 History of tobacco use documented as of this encounter (statuses as of 09/15/2023) Resolved Problems Problem Noted Date Diagnosed Date [...] for Patients with Cardiovascular Disease Project #: [id number] PI: ePyton Conn MD [phone] GENOMICS CARDIO RESEARCH OTHER*[id number] 01/15/2007 06/28/2016 Overview: Renamed Per Clinical Trials Billing Project. Study Title: Genomic Markers for Patients with Cardiovascular Disease Project #: [id number] PI: Peyton Conn MD [phone] LV (left ventricular) mural thrombus 10/30/2006 12/28/2017 Tobacco use disorder 09/07/2006 010 Acute inferior myocardial infarction 08/19/2006 12/11/2008 Overview: Modified by Acute [place] Protocol #5. [facility] right coronary bare metal stents EXAMINATION OF PARTICIPANT I N CLINICAL TRIAL - HORIZONS 08/19/2006 09/04/2009 Overview: Renamed Per Clinical Trials Billing Project. [facility] AMI clinical trial 263 Single blind trial comparing heparin and IIB/IIIA with bivalirudin, and Taxus vs bare metal stent. Patient Follow-up for 5 years Nurses Director: Trent Verduzco [phone] [facility] Clinical Trial*[id number] 08/19/2006 09/08/2014 Overview: Renamed Per Clinical Trials Billing Project. [facility] AMI clinical trial 2004- 2684 Single blind trial comparing heparin and IIB/IIIA with bivalirudin, and Taxus vs bare metal stent. Patient Follow-up for 5 years Nurses Director: Trent GeovannySarah Verduzco [phone] Menopause 08/29/2002 02/23/2017 LOC PRIM [id number]-P-PRM 05/29/200206/23 Dyslipidemia, goal to be determined 05/29/2002 05/07/2009 Overview: Per Lipid Taxonomy. 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 02/23/2017 documented as of this encounter (statuses as of 09/15/2023) Immunizations Name Administration Dates Next Due COVID-19 [...] attempted to quit: 06/28/2023 Smokeless Tobacco: Never Alcohol Use Standard Drinks/Week Comments No 0 [...] Care Team (Late st Contact Info) Description 09/20/2023 2:50 PM EDT Office Visit Vascular Surgery, [facility] [address] [place] [address] Albin Marr MD [address] [place] [address] 10/05/2023 2:00 PM EDT Home Visit [facility] [address] [place] [address] Areli Washburn, LISA [address] [place] [address] 11/02/2023 1:40 PM EDT Office Visit [facility] [address] [facility] [address] [place] [address] Erica Marsh MD [address] [facility] [place] [address] 01/02/2024 9:00 AM EDT [facility], [facility] [address] [facility] [place] [address] [facility] [address] [place] [address] Scheduled Procedures Name Priority Associated Diagnoses Date/Ti [...] 023, 02/21/2022, 07/23/2019 CKD PHOS USE SMARTSET 78108 03/02/202402/19, 10/07/2022, 02/21/2022, Additional history exists GFR 03/08/2024 09/07/2023, 06/23, 04/18/2023, Additional history exists O2 ASSESSMENT COMPLETED IN PAST YEAR FOR COPD 08/28/2024 08/29/2023 CKD HGB USE SMARTSET 61556 09/06/202409/06, 09/07/2023, 07/18/2023, Additional history exists COLONOSCOPY-EVERY 5 YRS AGES 18-100 07/03/2028 07/03/2023, 08/28/2012 DTaP,Tdap,and Td Vaccines (4 - Td or Tdap) 06/02/2032 06/02/2022, 02/11/2011, 05/22/1995 Pneumococcal Vaccine: 65+ Years Completed 02/23/2017, 10/22/2014, 02/26/2007 Hepatitis B Completed 04/02/2018, 09/19, 07/24/2017 Zoster Vaccines Completed 01/20/2020, 07/23/2019 Influenza Vaccine (FLU shot) Completed 02/27/2023, 02/27/2023, 02/21/2022, Additional history exists Colonoscopy Discontinued 07/03/2023, 08/28/2012 Colorectal Cancer Screening Discontinued Cologuard Discontinued Fecal Occult Blood Test Discontinued GARDASIL-HPV IMMUNIZATION SERIES Aged Out No longer eligible based on patient's age to complete this topic MENINGOCOCCAL (MENACTRA/MENVEO) Aged Out No longer eligible based on patient's age to complete this topic Sigmoidoscopy Discontinued documented as of this encounter Medical Devices Not on filedocumented as of this encounter Procedures Procedure Name Priority Date/Time Associated Diagnosis Comments CT NECK W CONTRAST Routine 09/07/2023 12 :52 PM EDT Nasopharyngeal mass documented in this encounter Results * CT NECK W CONTRAST (09/07/2023 12:52 PM EDT) Anatomical Region Laterality Modality Neck, Head, Sinus Computed Tomog ashvin 09/12/2023 2:54 PM EDT Impressions 09/12/2023 2:51 PM EDT IMPRESSION Approximately 3.4-cm right lateral nasopharyngeal cystic lesion centered on the fossa of Rosenmller extending into the adjacent parapharyngeal space. The cystic appearance favors a benign lesion, such as a retention cyst or nasopharyngeal branchial cyst. No suspicious cervical lymphadenopathy. Narrative 09/12/2023 2:[address] NECK W CONTRAST-09/07/2023 12:52 pm HISTORY nasopharyngeal mass TECHNIQUE CT scan of the neck was performed following the administration of intravenous contrast. COMPARISON None FINDINGS There is a cystic-appearing lesion of the right nasopharynx centered on the fossa of Rosenmller with exophytic projection. The lesion measures up to 3.4 cm in maximal diameter and extends into the adjacent parapharyngeal space with relatively well-defined borders. No evidence of skull base erosion or suspicious cervical lymphadenopathy. The upper aerodigestive tract and major imaged vascular structures are patent. Medial retropharyngeal courses of the internal carotid arteries bilaterally. Atherosclerotic calcifications at the carotid bifurcations without significant stenosis. Mild paranasal sinus mucosal thickening. The mastoid air cells are clear. The maxilla and mandible are edentulous. Heterogeneous thyroid gland with small nodules and cysts. Left chest wall cardiac device noted. No suspicious nodules identified at the imaged lung apices. Multilevel degenerative changes of the cervical spine. Small foreign body noted in the left temporal scalp. Procedure Note Oleg Orr MD - 09/12/[address] NECK W CONTRAST-09/07/2023 12:52 pm HISTORY nasopharyngeal mass TECHNIQUE CT scan of the neck was performed following the administration ofintravenous contrast. COMPARISON None FINDINGS There is a cystic-appearing lesion of the right nasopharynx centered onthe fossa of Rosenmller with exophytic projection. The lesion measuresup to 3.4 cm in maximal diameter and extends into the adjacentparapharyngeal space with relatively well-defined borders. No evidence ofskull base erosion or suspicious cervical lymphadenopathy. The upper aerodigestive tract and major imaged vascular structures arepatent. Medial retropharyngeal courses of the internal carotid arteriesbilaterally. Atherosclerotic calcifications at the carotid bifurcationswithout significant stenosis. Mild paranasal sinus mucosal thickening. The mastoid air cells are clear.The maxilla and mandible are edentulous. Heterogeneous thyroid gland with small nodules and cysts. Left chest wallcardiac device noted. No suspicious nodules identified at the imaged lung apices. Multileveldegenerative changes of the cervical spine. Small foreign body noted in the left temporal scalp. IMPRESSION IMPRESSION Approximately 3.4-cm right lateral nasopharyngeal cystic lesion centeredon the fossa of Rosenmller extending into the adjacent parapharyngealspace. The cystic appearance favors a benign lesion, such as a retentioncyst or nasopharyngeal branchial cyst. No suspicious cervicallymphadenopathy. Laurie BARNEY-Geovanny RAD CT documented in this encounter Visit Diagnoses Diagnosis Nasopharyngeal mass Unspecified disease of pharynx documented in this encounter Administered Medications Inactive Administered Medications - up to 3 most recent administrations Medication Order MAR Action Action Date Dose Rate Site Ioversol (Optiray 320) inj 125 mL 125 mL, Intravenous, ONCE, On Yesica 09/07/23 at 1253, For 1 dose Given 09/07/2023 12:51 PM EDT 125 mL documented in this encounter Advance Directives Latest [...] the patient have Health Care Power of Optometrist Assistant? No Care Teams Binding Machine Operator Relationship Specialty Start Date End Date Loli NORWOOD, Roman Barraza MD [address] [facility] [place] [address] PCP - General Family Medicine 06/28/18 documented as of this encounter
--- OUTSIDE RECORDS SUMMARY | 2023-10-18 15:31 | External Medical Summary | Summary of Care ---
Author Name Unknown Organization [facility] Address [address] [place] [address] Phone [phone] Care Team Providers Care Stage Builder Name Role Phone Loli NORWOOD MD, Roman Barraza Primary Care Provider [phone] Reason for Referral * Precert (Within 10 days (routine)) - Pending Review Specialty Diagnoses / Procedures Referred By Xuan t Referred To Contact Radiology Diagnoses Dyslipidemia, goal LDL below 70 Infrarenal abdominal aortic aneurysm (AAA) without rupture (HCC) Chronic kidney disease, stage 3b (HCC) PVD (peripheral vascular disease) with claudication (HCC) Procedures CTA ABD AORTA/FEM RUNOFF W CONTRAST Forest Zarate PA-C [address] [place] [address] Referral ID Status Reason Start Date Expiration Date V isits Requested Visits Authorized [id number] Pending Review 09/20/2023 999 999 Reason for Visit * Reason Comments Follow Up Encounter Details Date Type Department Care Team (Late st Contact Info) Description 09/20/2023 2:50 PM EDT Office Visit Vascular Surgery, [facility] [address] [place] [address] Albin Marr MD [address] [place] [address] PVD (peripheral vascular disease) with claudication (HCC)*; Dyslipidemia, goal LDL below 70; Infrarenal abdominal aortic aneurysm (AAA) without rupture (HCC); Chronic kidney disease, stage 3b (HCC); DDD (degenerative disc disease), lumbar Allergies Active Allergy Reactions Criticality Noted Date Comments Isosorbide Mononitrate 12/24/2007 Severe headaches Nsaids 05/29/2002 Tramadol Hcl Nausea/vomiting Low 01/09/2008 UGI distress documented as of this encounter (statuses as of 09/20/2023) Medications Medication Sig Dispensed Refills Start Date [...] morning. 30 Tablet 6 08/09/2023 Active Nystatin [id number] UNIT/GM External Powder (Nystop) Apply topically to [...] the morning. 30 Tablet 5 09/06/2023 Active documented as of this encounter (statuses as of 09/20/2023) Active Problems Problem Noted Date Diagnosed Date [...] current use of insulin 07/28/2023 Atherosclerosis of deering co ronary artery without angina pectoris 07/28/2023 [...] cardiomyopathy 07/18/2018 Coronary artery disease invo lving deering coronary artery of deering heart without angina pectoris 05/08/2018 Anxiety state 05/08/2018 ADVANCE DIRECTIVE INFORMATION 03/23/2018 Overview: No, Advance Directive brochure offered , patient declined. Incomplete uterovaginal prolapse 09/29/2017 Cystocele, lateral 09/29/2017 Vaginal atrophy 09/29/2017 Hepatitis C antibody test positive 05/09/2017 Overview: HCV treated; SVR Confirmed 03/05/2018 Controlled substance agreement signed 02/23/2017 Biventricular implantable ca rdioverter-defibrillator in situ 08/07/2013 Last Assessment & Plan: Followed by [facility] cardiology History of colonic polyps 09/04/2012 Overview: 09/01/2012: adenoma, repeat in 3 years ICD-10 update of inactive term Dyslipidemia, goal LDL below 70 05/07/2009 Overview: Per Lipid Taxonomy. OLD MYOCARDIAL INFARCT 12/11/2008 Overview: Modified by Acute [place] Protocol #5. [facility] right coronary bare metal stents S/P angioplasty with stent 09/07/2006 History of tobacco use documented as of this encounter (statuses as of 09/20/2023) Resolved Problems Problem Noted Date Diagnosed Date Resolved Date Chronic kidney disease, stage 3b 07/31/2023 08/31/2023 Overview: Per CKD protocol Stage 3 chronic kidney disease 07/28/2023 08/03/2023 Overview: Per CKD protocol Atrial fibrillation 02/27/2023 03/16/20 Atrial fibrillation 02/27/2023 03/16/20 Hypertensive heart and kidne y disease with [...] for Patients with Cardiovascular Disease Project #: [id number] PI: Peyton Conn MD [phone] GENOMICS CARDIO RESEARCH OTHER*[id number] 01/15/2007 06/28/2016 Overview: Renamed Per Clinical Trials Billing Project. Study Title: Genomic Markers for Patients with Cardiovascular Disease Project #: [id number] PI: Peyton Conn MD [phone] LV (left ventricular) mural thrombus 10/30/2006 12/28/2017 Tobacco use disorder 09/07/2006 010 Acute inferior myocardial infarction 08/19/2006 12/11/2008 Overview: Modified by Acute [place] Protocol #5. [facility] right coronary bare metal stents EXAMINATION OF PARTICIPANT I N CLINICAL TRIAL - [facility] 08/19/2006 09/04/2009 Overview: Renamed Per Clinical Trials Billing Project. [facility] AMI clinical trial 263 Single blind trial comparing heparin and IIB/IIIA with bivalirudin, and Taxus vs bare metal stent. Patient Follow-up for 5 years Piped Pocket Machine Operator: Trent Verduzco [phone] [facility] Clinical Trial*[id number] 08/19/2006 09/08/2014 Overview: Renamed Per Clinical Trials Billing Project. [facility] AMI clinical trial 263 Single blind trial comparing heparin and IIB/IIIA with bivalirudin, and Taxus vs bare metal stent. Patient Follow-up for 5 years Piped Pocket Machine Operator: Trent Verduzco [phone] Menopause 08/29/2002 02/23/2017 LOC PRIM [id number] 05/29/200206/23 Dyslipidemia, goal to be determined 05/29/2002 05/07/2009 Overview: Per Lipid Taxonomy. 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 02/23/2017 documented as of this encounter (statuses as of 09/20/2023) Immunizations Name Administration Dates Next Due COVID-19 [...] to Q uit: No; Counseling Given: No Comments:09/20/2023 6-7 cigarettes per day, decline pamphlet. Alcohol [...] Sign Reading Time Taken Comments Blood Pressure 102/58 09/20/2023 3:04 PM EDT Pulse 62 09/20/2023 3:04 PM EDT Temperature 36.5 C (97.7 F) 09/20/2023 3:04 PM ED T Respiratory Rate - - Oxygen Saturation - - Inhaled Oxygen Concentration - - Weight 70.7 kg (155 lb 12.8 oz) 09/20/2023 3:04 PM EDT Height - - Body Mass Index 28.52 09/07/2023 10:51 AM EDT documented in this encounter Progress Notes * Forest Zarate PA-C - 09/20/2023 2:50 PM EDT Radha Tong is a 78 year old female. Patient being seen in consultation at the request of Roman Ennis III, MD Chief Complaint: Return, after HUBERT to assess degree of PAD Followed for small AAA, last seen 07/22/[address] Stewart HPI: Patient is a smoker who incidentaly noted to have a 2.8 cm infrarenal aorta with notation of extensive atherosclerotic disease well on CT scan of 03/19/2020 completed at [facility]. USaorta on 06/03/2020 suggesting a 3 cm AAA. Also nooted to have chronic thrombus to R PTV on 11/24/2014 [facility] venous duplex. ABDOMINAL AORTIC ANEURYSM: Patient denies [...] aortic aneurysms. Patient Active Problem List Diagnosis Code ADVANCE DIRECTIVE INFORMATION S/P angioplasty with stent Z95.820 OLD MYOCARDIAL INFARCT I25.2 Dyslipidemia, goal LDL below 70 E78.5 History of tobacco use Z87.891 History of colonic polyps Z86.010 Biventricular implantable cardioverter-defibrillator in situ Z95.810 Controlled substance agreement signed Z79.899 Hepatitis C antibody test positive R76.8 Incomplete uterovaginal prolapse N81.2 Cystocele, lateral N81.12 Vaginal atrophy N95.2 Coronary artery disease involving deering coronary artery of deering heart without angina pectoris I25.10 Anxiety state F41.1 History of ischemic cardiomyopathy Z86.79 COPD, group C, by GOLD 2017 classification (HCC) J44.9 Essential hypertension with goal blood pressure less than 140/90 I10 Carpal tunnel syndrome, bilateral G56.03 Trigger ring finger of right hand M65.341 Trigger ring finger of left hand M65.342 History of 2019 novel coronavirus disease (COVID-19) Z86.16 Abdominal aortic aneurysm (AAA) without rupture (HCC) I71.40 Type 2 diabetes mellitus with hemoglobin A1c goal of less than 8.0% (HCC) E11.9 Cigarette smoker F17.210 Infrarenal abdominal aortic aneurysm (AAA) without rupture (HCC) I71.43 Type 2 diabetes mellitus with diabetic chronic kidney disease (HCC) E11.22 Chronic combined systolic and diastolic congestive heart failure (HCC) I50.42 Monoplegia, upper limb, nondominant side S/P CVA (cerebrovascular acc) (HCC) I69.339 Right leg DVT (HCC) I82.401 Atrial fibrillation (HCC) I48.91 Other disorders of phosphorus metabolism E83.39 Breakthrough seizure (HCC) G40.919 Hip pain, left M25.552 Food insecurity Z59.41 Hypertensive heart and chronic kidney disease with heart failure and stage 1 through stage 4 chronic kidney disease, or chronic kidney disease (HCC) I13.0 Chronic obstructive pulmonary disease with (acute) exacerbation (HCC) J44.1 Acute deep vein thrombosis (DVT) of proximal vein of right lower extremity (HCC) I82.4Y1 New onset seizure (HCC) R56.9 Viral hepatitis C B19.20 Type 2 diabetes mellitus with stage 3b chronic kidney disease, without long-term current use of insulin (HCC) E11.22, N18.32 Atherosclerosis of deering coronary artery without angina pectoris I25.10 Chronic kidney disease, stage 3b (HCC) N18.32 Benign hypertension with stage 3b chronic kidney disease (HCC) I12.9, N18.32 Hypertensive heart and kidney disease 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 and stage 3b chronic kidney disease (HCC) I13.0, I50.42, N18.32 Seizure disorder, complex partial, without intractable epilepsy ([facility]) G40.209 Past Medical History: Diagnosis Date Acute inferior myocardial infarction (HCC) 08/19/2006 [facility] right coronary bare metal stents Automatic implantable cardiac defibrillator in situ 11/24/2008 [facility], Dr Bhavani Loya EF 20-25% COMMON MIGRAINE [...] right coronary artery 3 bare metal stents, [facility] CARPAL TUNNEL SURGERY Bilateral 02/20/2020 NEUROPLASTY MEDIAN NERVE AT CARPAL TUNNEL performed by Lore Richey DO at OR [facility] COLONOSCOPY, DIAGNOSTIC (RECTUM) N/A 07/03/2023 hemorrhoids/biopsies show adenomatous polyps/recall 5 years/Colonoscopy/[place] EGD, FLEXIBLE, DIAGNOSTIC N/A 07/03/2023 biopsies normal/EGD/MN INSERT PULSE GENERATOR, EXISTING SINGLE LEAD 08/06/2013 NEW ICD GENERATOR ONLY performed by Tylor Loya MD at [facility] LAP;W/HYSTERECTOMY 02/04/2020 LEFT VENTRICULAR PACING ELECTRODE, ADD-ON 11/24/2008 CS LEAD PLACEMENT WITH INITIAL DEVICE performed by TYLOR LOYA at [facility] MAMMOGRAM - BILATERAL 07/17/2002 Birad Code 2 PACEMAKER-DEFIBRILLATOR ELECTRODE INSERT, SINGLE 08/09/2013 REPLACE LEAD (1 LEAD) performed by Monik Arnold IV, MD at [facility] REMOVE CATARACT, INSERT LENS PROSTH Right REMOVE GALLBLADDER 1990s Cholecystectomy, [place] TENDON SHEATH INCISION, FINGER Bilateral 02/20/2020 TRIGGER FINGER RELEASE performed by Lore Richey DO at OR [facility] VAGINAL DELIVERY ONLY times 5 Social History [...] 06/28/2023 Years since quittin.2 Smokeless tobacco: Never Vaping Use Vaping Use: Never used Substance [...] OF SYSTEMS: Cardiovascular: Reports CAD with h/o [place] s/p PCI/Stenting. ICD placement as well. Currently [...] AT/PT: R 2+, L 0 DIAGNOSTIC STUDIES: 08/23/23 HUBERT: 1.2/0.62, triphasic on R, biphasic on L, flat toe PPGs The above diagnostic images were directly visualized and independently interpreted by me on 09/20/2023 with results as above 08/01/23 Abd Aortic Duplex: 3.3 cm AAA, RCIA 1.1 cm, LCIA 0.8 cm 06/30/22 Abd Aortic Duplex: 3.0 cm AAA 06/30/22 BLE Art Duplex: No fem or pop aneurysms 06/30/22 Carotid Duplex: MAXINE 75/25, LICA 69/23, ante verts 06/22/2021; Location of Study: [facility]; Modality: duplex; AAA measures 3.1 cm in greatest transverse dimension. 06/03/2020; Location of Study: [facility]; Modality: duplex; AAA measures 3.0 cm in greatest transverse dimension. 03/19/2020 CT ([place]): 2.8 cm infrarenal aorta Results for orders placed or performed in [...] clinical labs were reviewed by me on 09/20/23 IMPRESSIONS: Moderate LLE PAD, with mixed etiology claudication, neurogenic and vascular, more so former. With that said, lack of LEFT fem pulse is of concern. Will need to further define degree of LLE PVD No rest pain or ulcerations Asymptomatic 3.3 cm AAA. No fem or pop aneurysms by 2022 duplex Asymptomatic less than 50% B/L carotid stenosis H/O superficial lower extremity thrombophlebitis in 07/2020 for which she was placed on a course ofEliquis to prevent further venous thromboembolic disease. ICM, s/p inferior posterior [place] 08/2006, s/p PCI to RCA and 4 BMS 12/2006 Apical thrombus LBBB BiV ICD 11/24/2008 gent change 08/06/2013 with revision following day 07/10/2013. HTN Dyslipidemia. Smoker, about 6 cigarettes per day COPD. Prediabetes. CKD III Hepatitis C Lumbar DDD, Chronic back pain with sciatica on left side PLAN: The patient was counseled regarding the pathophysiology and natural history of peripheral vascular disease, as well as the interventional and noninterventional therapeutic options. Continue medical management and surveillance The patient was counseled regarding the pathophysiology and natural history of abdominal aortic aneurysms, as well as the signs of rupture and the need to initiate emergency medical attention in thatsituation. Asymptomatic 3.0 cm AAA below threshold for intervention. Continue with routine monitoring. Encouraged good BP control, per PCP Encouraged patient to stop smoking. She expressed understanding. Continue daily ASA 81 mg for platelet inhibition Continue daily lipitor 40 mg for dyslipidemia RTC 10/11/23 with CTA w/ runoff prior. Need to further define degree of LLE PVD. SHERLYN Leung, PA-C Section of Vascular and Endovascular Surgery [facility] [address] [facility] [place] [address] I have reviewed the advanced practitioner's documentation on the date of service referenced in note, and I agree with, and take responsibility for the plan of care. Here today to follow up HUBERT 1.2/0.6 - review of duplexes suggests left common iliac disease which has not been adequately visualized. No left femoral pulse. Discussed that many of her complaints do sound neurogenic in nature, but that she certainly does also have vascular disease. We discussed that even if we do proceed to performing vascular surgery that many of her complaints may remain. Will get CTA to better quantify her arterial anatomy and bring her back in a few weeks. Albin Marr MD Section of Vascular and Endovascular Surgery [place], [place] [id number] [phone] documented in this encounter Nursing Notes * Elsie Connor PHARM Tech - 09/20/2023 3:04 PM EDT Reviewed the option of transferring scripts to [facility] pharmacy with patient and / or family. Patient stated no change in medications. KRISTIE Remy documented in this encounter Plan of Treatment Upcoming Encounters Date Type Department Care Team (Late st Contact Info) Description 09/28/2023 3:30 PM EDT Imaging Radiology [facility] [address] [place] [address] 10/05/2023 2:00 PM EDT Home Visit [facility] at [facility] [address] [place] [address] Areli Washburn, LISA [address] [place] [address] 10/11/2023 2:00 PM EDT Office Visit Vascular Surgery, [facility] [address] [address] Albin Marr MD [address] [facility] [place] [address] 11/02/2023 1:40 PM EDT Office Visit [facility] [address] [facility] [place] [address] Erica Marsh MD [address] [facility] [place] [address] 01/02/2024 9:00 AM EDT Office Visit Pharmacy, [facility] [address] [facility] [place] [address] [facility] [address] [facility] [place] [address] Scheduled Orders Name Type Priority Associated Diagnoses Orde r Schedule CTA ABD AORTA/FEM RUNOFF W CONTRAST Medical Imaging Routine Dyslipidemia, goal LDL below 70 Infrarenal abdominal aortic aneurysm (AAA) without rupture (HCC) Chronic kidney disease, stage 3b (HCC) PVD (peripheral vascular disease) with claudication (HCC) Ordered: 09/20/2023 Scheduled Procedures Name Priority Associated Diagnoses Date/Ti [...] 023, 02/21/2022, 07/23/2019 CKD PHOS USE SMARTSET 84330 03/02/202402/19, 10/07/2022, 02/21/2022, Additional history exists GFR 03/08/2024 09/07/2023, 06/23, 04/18/2023, Additional history exists O2 ASSESSMENT COMPLETED IN PAST YEAR FOR COPD 08/28/2024 08/29/2023 CKD HGB USE SMARTSET 13147 09/06/202409/06, 09/07/2023, 07/18/2023, Additional history exists Colonoscopy [...] claudication (HCC)- Primary Peripheral vascular disease, unspecified Dyslipidemia, goal LDL below 70 Other and unspecified hyperlipidemia Infrarenal abdominal aortic aneurysm (AAA) without rupture (HCC) Chronic kidney disease, stage 3b (HCC) DDD (degenerative disc disease), lumbar Degeneration of lumbar or lumbosacral intervertebral disc documented in this encounter Advance Directives Latest [...] the patient have Health Care Power of Bakeshop Cleaner? No Care Teams Stage Builder Relationship Specialty Start Date End Date Roman Ennis III, MD [address] [place] [address] PCP - General Family Medicine 06/28/18 documented as of this encounter
--- OUTSIDE RECORDS SUMMARY | 2023-10-18 15:31 | External Medical Summary | Summary of Care ---
Author Name Unknown Organization [facility] Address [address] [place] [address] Phone [phone] Care Team Providers Care Time Study Engineer Name Role Phone Loli NORWOOD MD, Roman Barraza Primary Care Provider [phone] Reason for Visit * Reason Onset Date Comments Appointment 09/28/2023 Encounter Details Date Type Department Care Team (Late st Contact Info) Description 09/28/2023 Telephone [facility] [address] [place] [address] Services, Scheduling [address] [place] [address] Appointment Allergies Active Allergy Reactions Criticality Noted Date Comments Isosorbide Mononitrate 12/24/2007 Severe headaches Nsaids 05/29/2002 Tramadol Hcl Nausea/vomiting Low 01/09/2008 UGI distress documented as of this encounter (statuses as of 09/28/2023) Medications Medication Sig Dispensed Refills Start Date [...] morning. 30 Tablet 6 08/09/2023 Active Nystatin 968571 UNIT/GM External Powder (Nystop) Apply topically to [...] needed (pain). 100 Tablet 0 09/21/2023 Active documented as of this encounter (statuses as of 09/28/2023) Active Problems Problem Noted Date Diagnosed Date [...] current use of insulin 07/28/2023 Atherosclerosis of [place] co ronary artery without angina pectoris 07/28/2023 [...] cardiomyopathy 07/18/2018 Coronary artery disease invo lving [place] coronary artery of [place] heart without angina pectoris 05/08/2018 Anxiety state 05/08/2018 ADVANCE DIRECTIVE INFORMATION 03/23/2018 Overview: No, Advance Directive brochure offered , patient declined. Incomplete uterovaginal prolapse 09/29/2017 Cystocele, lateral 09/29/2017 Vaginal atrophy 09/29/2017 Hepatitis C antibody test positive 05/09/2017 Overview: HCV treated; SVR Confirmed 03/05/2018 Controlled substance agreement signed 02/23/2017 Biventricular implantable ca rdioverter-defibrillator in situ 08/07/2013 Last Assessment & Plan: Followed by [facility] History of colonic polyps 09/04/2012 Overview: 09/01/2012: adenoma, repeat in 3 years ICD-10 update of inactive term Dyslipidemia, goal LDL below 70 05/07/2009 Overview: Per Lipid Taxonomy. OLD MYOCARDIAL INFARCT 12/11/2008 Overview: Modified by Acute [place] Protocol #5. [facility] right coronary bare metal stents S/P angioplasty with stent 09/07/2006 History of tobacco use documented as of this encounter (statuses as of 09/28/2023) Resolved Problems Problem Noted Date Diagnosed Date [...] for Patients with Cardiovascular Disease Project #: [id number] PI: Peyton Conn MD [phone] GENOMICS CARDIO RESEARCH OTHER*[id number] 01/15/2007 06/28/2016 Overview: Renamed Per Clinical Trials Billing Project. Study Title: Genomic Markers for Patients with Cardiovascular Disease Project #: [id number] PI: Peyton Conn MD [phone] LV (left ventricular) mural thrombus 10/30/2006 12/28/2017 Tobacco use disorder 09/07/2006 010 Acute inferior myocardial infarction 08/19/2006 12/11/2008 Overview: Modified by Acute [place] Protocol #5. [facility] right coronary bare metal stents EXAMINATION OF PARTICIPANT I N CLINICAL TRIAL - [facility] 08/19/2006 09/04/2009 Overview: Renamed Per Clinical Trials Billing Project. [facility] AMI clinical trial 263 Single blind trial comparing heparin and IIB/IIIA with bivalirudin, and Taxus vs bare metal stent. Patient Follow-up for 5 years Diet Therapist: Trent Verduzco [phone] [facility] Clinical Trial*[id number] 08/19/2006 09/08/2014 Overview: Renamed Per Clinical Trials Billing Project. [facility] AMI clinical trial 263 Single blind trial comparing heparin and IIB/IIIA with bivalirudin, and Taxus vs bare metal stent. Patient Follow-up for 5 years Diet Therapist: Trent Verduzco [phone] Menopause 08/29/2002 02/23/2017 LOC PRIM [id number] 05/29/200206/23 Dyslipidemia, goal to be determined 05/29/2002 05/07/2009 Overview: Per Lipid Taxonomy. 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 02/23/2017 documented as of this encounter (statuses as of 09/28/2023) Immunizations Name Administration Dates Next Due COVID-19 [...] encounter Miscellaneous Notes * Telephone Encounter - Sariah Cordova OSA - 09/28/2023 1:12 PM EDT Request to set up AP appt, appt set for 10/17, reminder sent. documented in this encounter Plan of Treatment Upcoming Encounters Date Type Department Care Team (Late st Contact Info) Description 09/28/2023 3:30 PM EDT Imaging Radiology [address] [place] [address] 10/05/2023 2:00 PM EDT Home Visit [facility] [place], [facility] [address] [place] [address] Areli Washburn, LISA [address] [place] [address] 10/11/2023 1:50 PM EDT Office Visit Vascular Surgery, [facility] [address] [place] [address] Albin Marr MD [address] [place] [address] 10/18/2023 9:00 AM EDT Telemedicine [facility], [facility] [address] [place] [address] Kilo Foster PA-C 132 [facility] [place] [address] Judy Hunt, [facility] [place] [address] [place] [address] 11/02/2023 1:40 PM EDT Office Visit Family Practice [facility] [address] [place] [address] Erica Marsh MD [address] [place] [address] 01/02/2024 9:00 AM EDT Office Visit Pharmacy, [facility] [address] [place] [address] [facility] 132 [facility] [place] [address] Scheduled Procedures Name Priority Associated Diagnoses Date/Ti me COLONOSCOPY FLEXIBLE PROXIMA L DIAGNOSTIC Recall History of colonic polyps Health Maintenance Due Date Last Done Comments DISCUSS TOBACCO CESSATION (REFER TO SMARTSET #5816) 1945 Alpha-1 Antitrypsin 1965 Diabetic Foot Exam 1965 DXA Scan 09/04/2016 09/04/2013, 09/04/2013 *ADVANCE DIRECTIVE NOT ON FILE 06/09/2019 COVID-19 Vaccine ( season) 2023 11/12/2020, 10/01/2020 Depression Screening 06/02/2023 06/02/2022 Diabetic Eye Exam 07/21/2023 07/20/2022 HbA1c 09/01/2023 03/02/2023, 12/21, 08/19/2006, Additional history exists Albumin/Creatinine Ratio 03/02/2024 023, 02/21/2022, 07/23/2019 CKD PHOS USE SMARTSET 60373 03/02/202402/19, 10/07/2022, 02/21/2022, Additional history exists GFR 03/08/2024 09/07/2023, 06/23, 04/18/2023, Additional history exists O2 ASSESSMENT COMPLETED IN PAST YEAR FOR COPD 08/28/2024 08/29/2023 CKD HGB USE SMARTSET 18861 09/06/202409/06, 09/07/2023, 07/18/2023, Additional history exists Colonoscopy [...] patient have Health Care Power of Director Electrical Engineering? No Care Teams Time Study Engineer Relationship Specialty Start Date End Date Roman Ennis III, MD [address] [facility] [place] [address] PCP - General Family Medicine 06/28/18 documented as of this encounter
--- OUTSIDE RECORDS SUMMARY | 2023-10-18 15:31 | External Medical Summary | Summary of Care ---
Author Name Unknown Organization [facility] Address [address] [facility] [address] Phone [phone] Care Team Providers Care Library Specialist Name Role Phone Loli NORWOOD MD, Roman Barraza Primary Care Provider [phone] Encounter Details Date Type Department Care Team (Late st Contact Info) Description 09/13/2023 Population Health External Data Unspecified Department Allergies Active Allergy Reactions Criticality Noted Date Comments Isosorbide Mononitrate 12/24/2007 Severe headaches Nsaids 05/29/2002 Tramadol Hcl Nausea/vomiting Low 01/09/2008 UGI distress documented as of this encounter (statuses as of 09/13/2023) Medications Medication Sig Dispensed Refills Start Date [...] morning. 30 Tablet 6 08/09/2023 Active Nystatin 575162 UNIT/GM External Powder (Nystop) Apply topically to [...] as of this encounter (statuses as of 09/13/2023) Active Problems Problem Noted Date Diagnosed Date [...] current use of insulin 07/28/2023 Atherosclerosis of [place] co ronary artery without angina pectoris 07/28/2023 [...] cardiomyopathy 07/18/2018 Coronary artery disease invo lving [place] coronary artery of [place] heart without angina pectoris 05/08/2018 Anxiety state 05/08/2018 ADVANCE DIRECTIVE INFORMATION 03/23/2018 Overview: No, Advance Directive brochure offered , patient declined. Incomplete uterovaginal prolapse 09/29/2017 Cystocele, lateral 09/29/2017 Vaginal atrophy 09/29/2017 Hepatitis C antibody test positive 05/09/2017 Overview: HCV treated; SVR Confirmed 03/05/2018 Controlled substance agreement signed 02/23/2017 Biventricular implantable ca rdioverter-defibrillator in situ 08/07/2013 Last Assessment & Plan: Followed by [facility] cardi[facility] History of colonic polyps 09/04/2012 Overview: 09/01/2012: adenoma, repeat in 3 years ICD-10 update of inactive term Dyslipidemia, goal LDL below 70 05/07/2009 Overview: Per Lipid Taxonomy. OLD MYOCARDIAL INFARCT 12/11/2008 Overview: Modified by Acute [place] Protocol #5. [facility] right coronary bare metal stents S/P angioplasty with stent 09/07/2006 History of tobacco use documented as of this encounter (statuses as of 09/13/2023) Resolved Problems Problem Noted Date Diagnosed Date [...] for Patients with Cardiovascular Disease Project #: PI: Peyton Conn MD [phone] GENOMICS CARDIO RESEARCH OTHER*[id number] 01/15/2007 06/28/2016 Overview: Renamed Per Clinical Trials Billing Project. Study Title: Genomic Markers for Patients with Cardiovascular Disease Project #: [id number] PI: Peyton Conn MD [phone] LV (left ventricular) mural thrombus 10/30/2006 12/28/2017 Tobacco use disorder 09/07/2006 010 Acute inferior myocardial infarction 08/19/2006 12/11/2008 Overview: Modified by Acute [place] Protocol #5. [facility] right coronary bare metal stents EXAMINATION OF PARTICIPANT I N CLINICAL TRIAL - [facility] 08/19/2006 09/04/2009 Overview: Renamed Per Clinical Trials Billing Project. [facility] AMI clinical trial 263 Single blind trial comparing heparin and IIB/IIIA with bivalirudin, and Taxus vs bare metal stent. Patient Follow-up for 5 years Python Java Developer: Trent Verduzco [phone] [facility] Clinical Trial*[id number] 08/19/2006 09/08/2014 Overview: Renamed Per Clinical Trials Billing Project. [facility] AMI clinical trial 263 Single blind trial comparing heparin and IIB/IIIA with bivalirudin, and Taxus vs bare metal stent. Patient Follow-up for 5 years Python Java Developer: Trent Verduzco [phone] Menopause 08/29/2002 02/23/2017 LOC PRIM [id number] 05/29/200206/23 Dyslipidemia, goal to be determined 05/29/2002 05/07/2009 Overview: Per Lipid Taxonomy. 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 02/23/2017 documented as of this encounter (statuses as of 09/13/2023) Immunizations Name Administration Dates Next Due COVID-19 [...] 2:50 PM EDT Office Visit Vascular Surgery, [facility] [address] [facility] [place] [address] Albin Marr MD [address] [place] [address] 11/02/2023 1:40 PM EDT Office Visit Family Practice [facility] [address] [facility] [place] [address] Erica Marsh MD [address] [facility] [place] [address] 01/02/2024 9:00 AM EDT Office Visit Pharmacy, [facility] [address] [facility] [place] [address] [facility] [address] [place] [address] Scheduled Procedures Name Priority Associated Diagnoses Date/Ti me COLONOSCOPY FLEXIBLE PROXIMA L DIAGNOSTIC Recall History of colonic polyps Health Maintenance Due Date Last Done Comments DISCUSS TOBACCO CESSATION (REFER TO SMARTSET #3908) 1945 Alpha-1 Antitrypsin 1965 Diabetic Foot Exam 1965 DXA Scan 09/04/2016 09/04/2013, 09/04/2013 *ADVANCE DIRECTIVE NOT ON FILE 06/09/2019 COVID-19 Vaccine ( season) 2023 11/12/2020, 10/01/2020 Depression Screening 06/02/2023 06/02/2022 Diabetic Eye Exam 07/21/2023 07/20/2022 HbA1c 09/01/2023 03/02/2023, 12/21, 08/19/2006, Additional history exists Albumin/Creatinine Ratio 03/02/2024 023, 02/21/2022, 07/23/2019 CKD PHOS USE SMARTSET 87795 03/02/202402/19, 10/07/2022, 02/21/2022, Additional history exists GFR 03/08/2024 09/07/2023, 06/23, 04/18/2023, Additional history exists O2 ASSESSMENT COMPLETED IN PAST YEAR FOR COPD 08/28/2024 08/29/2023 CKD HGB USE SMARTSET 61714 09/06/202409/06, 09/07/2023, 07/18/2023, Additional history exists COLONOSCOPY-EVERY [...] the patient have Health Care Power of Staff Midwife? No Care Teams Library Specialist Relationship Specialty Start Date End Date Roman Ennis III, MD [address] [facility] [place] [address] PCP - General Family Medicine 06/28/18 documented as of this encounter
--- OUTSIDE RECORDS SUMMARY | 2023-10-18 15:31 | External Medical Summary | Summary of Care ---
Author Name Unknown Organization [facility] Address [address] [place] [address] Phone [phone] Care Team Providers Care Pharmacy Intern Name Role Phone Loli NORWOOD MD, Marilyn Barraza Primary Care Provider [phone] Reason for Visit * Reason Onset Date Comments Medication Refill 09/20/2023 Encounter Details Date Type Department Care Team (Late st Contact Info) Description 09/20/2023 Refill Family Practice [facility] [address] [place] [address] Marilyn Nogueira III, MD [address] [place] [address] Chronic pain syndrome Allergies Active Allergy Reactions Criticality Noted Date Comments Isosorbide Mononitrate 12/24/2007 Severe headaches Nsaids 05/29/2002 Tramadol Hcl Nausea/vomiting Low 01/09/2008 UGI distress documented as of this encounter (statuses as of 09/21/2023) Medications Medication Sig Dispensed Refills Start Date [...] morning. 30 Tablet 6 08/09/2023 Active Nystatin 949120 UNIT/GM External Powder (Nystop) Apply topically to affected area 3 times a day. Apply to area under breasts 60 g 3 08/24/2023 Active Clopidogrel Bisulfate 75 MG Oral Tablet (Plavix) Take 1 Tablet by mouth in the morning. 30 Tablet 5 09/06/2023 Active oxyCODONE HCl 5 MG Oral Tablet (Oxy IR)Indications:Glass Calibrator fernando pain syndrome Take 1 Tablet by mouth every 6 hours as needed (pain). 100 Tablet 0 09/21/2023 Active oxyCODONE HCl 5 MG Oral Tablet (Oxy IR)Indications:Glass Calibrator fernando pain syndrome Take 1 Tablet by mouth every 6 hours as needed (pain). 100 Tablet 0 08/29/2023 Discontinue d(Refill) documented as of this encounter (statuses as of 09/21/2023) Active Problems Problem Noted Date Diagnosed Date [...] current use of insulin 07/28/2023 Atherosclerosis of [place] co ronary artery without angina pectoris 07/28/2023 [...] cardiomyopathy 07/18/2018 Coronary artery disease invo lving [place] coronary artery of [place] heart without angina pectoris 05/08/2018 Anxiety state 05/08/2018 ADVANCE DIRECTIVE INFORMATION 03/23/2018 Overview: No, Advance Directive brochure offered , patient declined. Incomplete uterovaginal prolapse 09/29/2017 Cystocele, lateral 09/29/2017 Vaginal atrophy 09/29/2017 Hepatitis C antibody test positive 05/09/2017 Overview: HCV treated; SVR Confirmed 03/05/2018 Controlled substance agreement signed 02/23/2017 Biventricular implantable ca rdioverter-defibrillator in situ 08/07/2013 Last Assessment & Plan: Followed by [facility] History of colonic polyps 09/04/2012 Overview: 09/01/2012: adenoma, repeat in 3 years ICD-10 update of inactive term Dyslipidemia, goal LDL below 70 05/07/2009 Overview: Per Lipid Taxonomy. OLD MYOCARDIAL INFARCT 12/11/2008 Overview: Modified by Acute [place] Protocol #5. [facility] right coronary bare metal stents S/P angioplasty with stent 09/07/2006 History of tobacco use documented as of this encounter (statuses as of 09/21/2023) Resolved Problems Problem Noted Date Diagnosed Date [...] for Patients with Cardiovascular Disease Project #: [id number] PI: Peyton Conn MD [phone] GENOMICS CARDIO RESEARCH OTHER*[id number] 01/15/2007 06/28/2016 Overview: Renamed Per Clinical Trials Billing Project. Study Title: Genomic Markers for Patients with Cardiovascular Disease Project #: [id number] PI: Peyton Conn MD [phone] LV (left ventricular) mural thrombus 10/30/2006 12/28/2017 Tobacco use disorder 09/07/2006 010 Acute inferior myocardial infarction 08/19/2006 12/11/2008 Overview: Modified by Acute [place] Protocol #5. [facility] right coronary bare metal stents EXAMINATION OF PARTICIPANT I N CLINICAL TRIAL - [facility] 08/19/2006 09/04/2009 Overview: Renamed Per Clinical Trials Billing Project. [facility] AMI clinical trial 263 Single blind trial comparing heparin and IIB/IIIA with bivalirudin, and Taxus vs bare metal stent. Patient Follow-up for 5 years Linseed Oil Boiler: Trent Verduzco [phone] [facility] Clinical Trial*[id number] 08/19/2006 09/08/2014 Overview: Renamed Per Clinical Trials Billing Project. [facility] AMI clinical trial 2004- 7244 Single blind trial comparing heparin and IIB/IIIA with bivalirudin, and Taxus vs bare metal stent. Patient Follow-up for 5 years Linseed Oil Boiler: Trent GeovannySarah Verduzco [phone] Menopause 08/29/2002 02/23/2017 LOC PRIM [id number] 05/29/200206/23 Dyslipidemia, goal to be determined 05/29/2002 05/07/2009 Overview: Per Lipid Taxonomy. 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 02/23/2017 documented as of this encounter (statuses as of 09/21/2023) Immunizations Name Administration Dates Next Due COVID-19 [...] Encounter - Marilyn Nogueira III, MD - 09/21/2023 12:38 PM EDTSigned Prescriptions: Disp Refills oxyCODONE HCl 5 MG Oral Tablet (Oxy IR) 100 Ta*0 Sig: Take 1 Tablet by mouth every 6 hours as needed (pain).Authorizing Provider: MARILYN NOGUEIRA III * Telephone Encounter - Loan Arboleda [facility] - 09/21/2023 11:06 AM EDT Pending Prescriptions: Disp Refills oxyCODONE HCl 5 MG Oral Tablet (Oxy IR) 100 Ta*0 Sig: Take 1 Tablet by mouth every 6 hours as needed (pain). * Telephone Encounter - Loan Arboleda [facility] - 09/21/2023 11:05 AM EDT I have reviewed the patients controlled substance dispensing history in the Prescription Drug Monitoring Program in compliance with the [facility] regulations before prescribing a controlled substance. PDMP checked on 09/21/2023. Pending Prescriptions: Disp Refills oxyCODONE HCl 5 MG Oral Tablet (Oxy IR) 100 Ta*0 Sig: Take 1 Tablet by mouth every 6 hours as needed (pain). Last Visit: 07/28/2023 (in office), 08/24/2020 (telemedicine) Next Visit: 11/02/2023 Date medication was last filled: 08/29/23 Date medication is due for refill: 09/21/23 Pharmacy: [facility], [address] [place] Is this request for [...] in Results Review. Please approve if appropriate. Loan Witt [facility] Clinical Pharmacist Centralized Clinical Pharmacy Services (CCPS) (Formerly Telepharmacy) [phone] * Telephone Encounter - Shanthi Diaz PHARM Tech - 09/20/2023 9:07 AM EDT Did you pend patient's preferred pharmacy and medication before forwarding?yes Pharmacy: [facility], [address] [place] Pending Prescriptions: Disp Refills [...] appointment Last date the medication was ordered: 08/29/23 Is this request for a controlled substance?Yes, What was the last refill date 08/29/23 w/ quantity 100 and dosage 1 tab every 6 hours and Urine Drug Screen was completed Urine [...] Description 09/28/2023 3:30 PM EDT Imaging Radiology [address] [place] [address] 10/05/2023 2:00 PM EDT Home Visit [facility] [address] [place] [address] Areli Washburn RN [address] [place] [address] 10/11/2023 2:00 PM EDT Office Visit Vascular Surgery, [facility] [address] [place] [address] Albin Marr MD [address] [place] [address] 11/02/2023 1:40 PM EDT Office Visit Family Practice [facility] [address] [facility] [place] [address] Erica Marsh MD [address] [facility] [place] [address] 01/02/2024 9:00 AM EDT Office Visit Pharmacy, [facility] [address] [place] [address] [place] [address] [facility] [place] [address] Scheduled Procedures Name Priority Associated Diagnoses Date/Ti [...] 023, 02/21/2022, 07/23/2019 CKD PHOS USE SMARTSET 93324 03/02/202402/19, 10/07/2022, 02/21/2022, Additional history exists GFR 03/08/2024 09/07/2023, 06/23, 04/18/2023, Additional history exists O2 ASSESSMENT COMPLETED IN PAST YEAR FOR COPD 08/28/2024 08/29/2023 CKD HGB USE SMARTSET 31501 09/06/202409/06, 09/07/2023, 07/18/2023, Additional history exists Colonoscopy [...] the patient have Health Care Power of Stockroom Coordinator? No Care Teams Pharmacy Intern Relationship Specialty Start Date End Date Marilyn Nogueira III, MD [address] [place] [address] PCP - General Family Medicine 06/28/18 documented as of this encounter
--- OUTSIDE RECORDS SUMMARY | 2023-10-18 15:32 | External Medical Summary ---
Author Name Unknown Address Unknown Organization K0G:[facility] [place] [address] [place] [address] Laboratory Report Ordering Provider Test Date Status NUNO SIMPSON 09/07/2023 11:59:50 Final Observation Date Value Abnormality Reference (Units ) Status WBC, Total 09/07/2023 11:59:50 4.82 4.00-10.8 0 (K/uL) Final RBC 09/07/2023 11:59:50 4.16 3.85-5.15 (M/uL) Final Hemoglobin 09/07/2023 11:59:50 13.0 12.0-15.3 (g/dL) Final HCT 09/07/2023 11:59:50 40.6 36.0-45.2 (%) Final MCV 09/07/2023 11:59:50 97.6 81.5-97.5 (fL) Final MCH 09/07/2023 11:59:50 31.3 27.0-34.0 (pg) Final MCHC 09/07/2023 11:59:50 32.0 32.0-36.0 (g/dL) Final RDW 09/07/2023 11:59:50 23.0 11.5-15.5 (%) Final Platelets 09/07/2023 11:59:50 155 140-400 (K /uL) Final MPV 09/07/2023 11:59:50 10.0 6.6-11.1 ( fL) Final Performing Location [facility] [place] [address] [place] [address]
--- OUTSIDE RECORDS SUMMARY | 2023-10-18 15:32 | External Medical Summary ---
Author Name Unknown Address Unknown Organization K0G:[facility] [address] [place] [address] Laboratory Report Ordering Provider Test Date Status ROSSANA STEWARTMargareth 09/07/2023 11:59:50 Final Observation Date Value Abnormality Reference (Units ) Status Creatinine 09/07/2023 11:59:50 1.0 0.5-1.0 (mg/dL) Final Glomerular filtration rate/1.73 sq M.predicted [Volume Rate/Area] in Serum, Plasma or Blood by Creatinine-based formula (CKD-EPI) 09/07/2023 11:59:50 56 Below low normal >=60 (mL/min) Final eGFR is calculated based on the CKD-EPI 2020 equation Performing [facility] [place] [address]
--- OUTSIDE RECORDS SUMMARY | 2023-10-18 15:32 | External Medical Summary | Summary of Care ---
Author Name Unknown Organization [facility] Address [address] [facility] [place] [address] Phone [phone] Care Team Providers Care Tour Manager Name Role Phone Loli NORWOOD MD, Roman Barraza Primary Care Provider [phone] Reason for Visit * Reason Comments Outpatient Testing Encounter Details Date Type Department Care Team (Late st Contact Info) Description 09/07/2023 12:10 PM EDT Laboratory [facility], [facility] [address] [facility] [id number] [facility] [address] [place] [address] Symptomatic anemia; Nasopharyngeal mass Allergies Active Allergy Reactions Criticality Noted Date Comments Isosorbide Mononitrate 12/24/2007 Severe headaches Nsaids 05/29/2002 Tramadol Hcl Nausea/vomiting Low 01/09/2008 UGI distress documented as of this encounter (statuses as of 09/07/2023) Medications Medication Sig Dispensed Refills Start Date [...] morning. 30 Tablet 6 08/09/2023 Active Nystatin 329419 UNIT/GM External Powder (Nystop) Apply topically to [...] as of this encounter (statuses as of 09/07/2023) Active Problems Problem Noted Date Diagnosed Date [...] current use of insulin 07/28/2023 Atherosclerosis of [place] co ronary artery without angina pectoris 07/28/2023 [...] cardiomyopathy 07/18/2018 Coronary artery disease invo lving [place] coronary [...] Last Assessment & Plan: Followed by [facility] cardiology History of colonic polyps 09/04/2012 Overview: 09/01/2012: adenoma, repeat in 3 years ICD-10 update of inactive term Dyslipidemia, goal LDL below 70 05/07/2009 Overview: Per Lipid Taxonomy. OLD MYOCARDIAL INFARCT 12/11/2008 Overview: Modified by Acute [place] Protocol #5. [facility] right coronary bare metal stents S/P angioplasty with stent 09/07/2006 History of tobacco use documented as of this encounter (statuses as of 09/07/2023) Resolved Problems Problem Noted Date Diagnosed Date [...] for Patients with Cardiovascular Disease Project #: [id number] PI: Peyton Conn MD [phone] GENOMICS CARDIO RESEARCH OTHER*[id number] 01/15/2007 06/28/2016 Overview: Renamed Per Clinical Trials Billing Project. Study Title: Genomic Markers for Patients with Cardiovascular Disease Project #: [id number] PI: Peyton Conn MD [phone] LV (left ventricular) mural thrombus 10/30/2006 12/28/2017 Tobacco use disorder 09/07/2006 010 Acute inferior myocardial infarction 08/19/2006 12/11/2008 Overview: Modified by Acute [place] Protocol #5. [facility] right coronary bare metal stents EXAMINATION OF PARTICIPANT I N CLINICAL TRIAL - HORIZONS 08/19/2006 09/04/2009 Overview: Renamed Per Clinical Trials Billing Project. [facility] AMI clinical trial 263 Single blind trial comparing heparin and IIB/IIIA with bivalirudin, and Taxus vs bare metal stent. Patient Follow-up for 5 years Sales Estimator: Trent Verduzco [phone] [facility] Clinical Trial*[id number] 08/19/2006 09/08/2014 Overview: Renamed Per Clinical Trials Billing Project. [facility] AMI clinical trial 263 Single blind trial comparing heparin and IIB/IIIA with bivalirudin, and Taxus vs bare metal stent. Patient Follow-up for 5 years Sales Estimator: Trent Verduzco [phone] [facility] 08/29/2002 02/23/2017 LOC PRIM [id number] 05/29/200206/23 Dyslipidemia, goal to be determined 05/29/2002 05/07/2009 Overview: Per Lipid Taxonomy. 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 [place] [address] Nasopharyngeal mass 09/20/2023 2:50 PM EDT Office Visit Vascular Surgery, [facility] [address] [facility] [place] [address] Albin Marr MD [address] [place] [address] 11/02/2023 1:40 PM EDT Office Visit Family Practice [facility] [address] [place] [address] Erica Marsh MD [address] [place] [address] 01/02/2024 9:00 AM EDT Office Visit Pharmacy, [facility] [address] [facility] [place] [address] [address] [facility] [address] [facility] [place] [address] Pending Results Name Type Priority Associated Diagnoses Date /Time CBC WITH WBC DIFFERENTIAL Lab Routine Symptomatic anemia 09/07/2023 11:59 AM EDT CREATININE Lab Routine Nasopharyngeal mass 09/07/2023 11:59 AM EDT CBC Lab Routine Symptomatic anemia 09/07/2023 11:59 AM EDT DIFFERENTIAL, AUTOMATED Lab Routine Symptomatic anemia 09/07/2023 11:59 AM EDT Scheduled Procedures Name Priority Associated Diagnoses Date/Ti [...] 03/02/2023, 12/21, 08/19/2006, Additional history exists GFR 01/16/2024 07/18/2023, 03/23, 03/15/2023, Additional history exists Albumin/Creatinine Ratio 03/02/2024 023, 02/21/2022, 07/23/2019 CKD PHOS USE SMARTSET 18013 03/02/202402/19, 10/07/2022, 02/21/2022, Additional history exists CKD HGB USE SMARTSET 67400 07/18/202407/18, 03/15/2023, 03/02/2023, Additional history exists O2 ASSESSMENT COMPLETED IN PAST YEAR FOR COPD 08/28/2024 08/29/2023 COLONOSCOPY-EVERY 5 YRS AGES 18-100 07/03/2028 07/03/2023, [...] as of this encounter Visit Diagnoses Diagnosis Nasopharyngeal mass Unspecified disease of pharynx Symptomatic anemia Nasopharyngeal mass Unspecified disease of pharynx documented in this encounter Advance Directives Latest [...] the patient have Health Care Power of Admitting Representative? No Care Teams Tour Manager Relationship Specialty Start Date End Date Roman Ennis III, MD [address] [place] [address] PCP - General Family Medicine 06/28/18 documented as of this encounter
--- OUTSIDE RECORDS SUMMARY | 2023-10-18 15:32 | External Medical Summary ---
Author Name Unknown Address Unknown Organization [facility] [place] [address] [place] [address] Laboratory Report Ordering Provider Test Date Status NUNO SIMPSON 09/07/2023 11:59:50 Final Observation Date Value Abnormality Reference (Units ) Status SYNC LEUKOCYTES IN BLOOD BY AUTOMATED COUNT 09/07/2023 11:59:50 4.82 4.00-10.80 (K/uL) Final Segs 09/07/2023 11:59:50 61.0 40.0-75.0 (%) Final Lymphs % 09/07/2023 11:59:50 27.6 18.0-42.0 (%) Final Monos 09/07/2023 11:59:50 9.8 1.0-11.0 (%) Final Eosinophils 09/07/2023 11:59:50 1.0 0.0-6.0 (%) Final Basos 09/07/2023 11:59:50 0.6 0.0-2.0 (%) Final Absolute Segs 09/07/2023 11:59:50 2.94 1.80-7.70 (K/uL) Final Lymphs, absolute 09/07/2023 11:59:50 1.33 1.00-4.80 (K/ul) Final Monos, Abs 09/07/2023 11:59:50 0.47 0.00-1.10 (K/uL) Final Eos, Abs 09/07/2023 11:59:50 0.05 0.00-0.70 (K/uL) Final Basos, Abs 09/07/2023 11:59:50 0.03 0.00-0.20 (K/uL) Final Performing Location [facility] [address] [place] [address]
--- OUTSIDE RECORDS SUMMARY | 2023-10-18 15:32 | External Medical Summary | Summary of Care ---
Author Name Unknown Organization [facility] Address [address] [facility] [place] [address] Phone [phone] Care Team Providers Care Passenger Barge Master Name Role Phone Loli NORWOOD MD, Roman Barraza Primary Care Provider [phone] Reason for Visit * Reason Comments eRx-Medication Refill Encounter Details Date Type Department Care Team (Late st Contact Info) Description 09/05/2023 Refill [facility] [address] [place] [address] Nikole Crenshaw PA-C [address] [place] [address] Allergies Active Allergy Reactions Criticality Noted Date Comments Isosorbide Mononitrate 12/24/2007 Severe headaches Nsaids 05/29/2002 Tramadol Hcl Nausea/vomiting Low 01/09/2008 UGI distress documented as of this encounter (statuses as of 09/06/2023) Medications Medication Sig Dispensed Refills Start Date [...] morning. 30 Tablet 6 08/09/2023 Active Nystatin 806400 UNIT/GM External Powder (Nystop) Apply topically to affected area 3 times a day. Apply to area under breasts 60 g 3 08/24/2023 Active oxyCODONE HCl 5 MG Oral Tablet (Oxy IR)Indications:Bulb Sorter fernando pain syndrome Take 1 Tablet by mouth every 6 hours as needed (pain). 100 Tablet 0 08/29/2023 Active Clopidogrel Bisulfate 75 MG Oral Tablet (Plavix) Take 1 Tablet by mouth in the morning. 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 OLD MYOCARDIAL INFARCT 12/11/2008 Overview: Modified by Acute [place] Protocol #5. [facility] right coronary bare metal stents S/P angioplasty with stent 09/07/2006 History of tobacco use documented as of this encounter (statuses as of 09/06/2023) Resolved Problems Problem Noted Date Diagnosed Date [...] for Patients with Cardiovascular Disease Project #: [id number] PI: Peyton Conn MD [phone] GENOMICS CARDIO RESEARCH OTHER*[id number] 01/15/2007 06/28/2016 Overview: Renamed Per Clinical Trials Billing Project. Study Title: Genomic Markers for Patients with Cardiovascular Disease Project #: [id number] PI: Peyton Conn MD [phone] LV (left ventricular) mural thrombus 10/30/2006 12/28/2017 Tobacco use disorder 09/07/2006 010 Acute inferior myocardial infarction 08/19/2006 12/11/2008 Overview: Modified by Acute [place] Protocol #5. [facility] right coronary bare metal stents EXAMINATION OF PARTICIPANT I N CLINICAL TRIAL - HORIZONS 08/19/2006 09/04/2009 Overview: Renamed Per Clinical Trials Billing Project. [facility] AMI clinical trial 263 Single blind trial comparing heparin and IIB/IIIA with bivalirudin, and Taxus vs bare metal stent. Patient Follow-up for 5 years Cloud Automation Tester: Trent Verduzco [phone] [facility] Clinical Trial*[id number] 08/19/2006 09/08/2014 Overview: Renamed Per Clinical Trials Billing Project. [facility] AMI clinical trial 263 Single blind trial comparing heparin and IIB/IIIA with bivalirudin, and Taxus vs bare metal stent. Patient Follow-up for 5 years Cloud Automation Tester: Trent Verduzco [phone] Menopause 08/29/2002 02/23/2017 LOC PRIM [id number] 05/29/200206/23 Dyslipidemia, goal to be determined 05/29/2002 05/07/2009 Overview: Per Lipid Taxonomy. 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 Caller can be reached at [phone]. Thank you, Aryan Saldana Public Stenographer [facility]) 09/06/2023,11:35 AM * Telephone Encounter - Lin Ayala LPN - 09/06/2023 8:58 AM EDTPending Prescriptions: Disp Refills Clopidogrel Bisulfate 75 MG Oral Tablet [P*30 Tab*5 Sig: TAKE ONE TABLET BY MOUTH IN THE MORNING * Telephone Encounter - Andria Tamayo LPN - 09/06/2023 8:31 AM EDT Did you pend patient's preferred pharmacy and medication before forwarding?yes Pharmacy: [facility], [address] [place] Pending Prescriptions: Disp Refills Clopidogrel Bisulfate 75 MG Oral Tablet (*30 Tab*5 Sig: TAKE ONE TABLET BY MOUTH IN THE MORNING Last Visit: Visit date not found (in office), Visit date not found (telemedicine) Next Visit: Visit date not found If no future appointments scheduled, and last appointment is greater than a year ago, please schedule patient for a follow-up appointment Last date the medication was ordered: 07/28/23 Is this request for a controlled substance?No [...] Labs: Lab Results Component Value Date/Time CREAT 1.4 (H) 07/18/2023 09:59 AM CREAT 0.75 10/07/2022 12:00 AM CREAT [...] AM HGBA1C 6.4 (H) 01/15/2007 11:30 AM * Telephone Encounter - Rosemarie Ramos RPh - 09/05/2023 5:11 PM EDTPending Prescriptions: Disp Refills Clopidogrel Bisulfate 75 MG Oral Tablet [P*30 Tab*5 Sig: TAKE ONE TABLET BY MOUTH IN THE MORNING documented in this encounter Plan of Treatment Upcoming Encounters Date Type Department Care Team (Late st Contact Info) Description 09/07/2023 11:00 AM EDT Office Visit Otolaryngology [facility] [address] [place] [address] Laurie Herrmann PA-C [address] [place] [address] 09/20/2023 2:50 PM EDT Office Visit Vascular Surgery, [facility] [address] [place] [address] Albin Marr MD [address] [place] [address] 11/02/2023 1:40 PM EDT Office Visit Family Practice [facility] [place] [address] [place] [address] Erica Marsh MD [address] [place] [address] 01/02/2024 9:00 AM EDT Office Visit Pharmacy, [facility] [address] [facility] [place] [address] [facility] [address] [facility] [place] [address] Scheduled Procedures Name Priority Associated Diagnoses Date/Ti me COLONOSCOPY FLEXIBLE PROXIMA L DIAGNOSTIC Recall History of colonic polyps Health Maintenance Due Date Last Done Comments DISCUSS TOBACCO CESSATION (REFER TO SMARTSET #4114) 1945 Alpha-1 Antitrypsin 1965 Diabetic Foot Exam 1965 DXA Scan 09/04/2016 09/04/2013, 09/04/2013 *ADVANCE DIRECTIVE NOT ON FILE 06/09/2019 COVID-19 Vaccine ( season) 2023 11/12/2020, 10/01/2020 Depression Screening 06/02/2023 06/02/2022 Diabetic Eye Exam 07/21/2023 07/20/2022 HbA1c 09/01/2023 03/02/2023, 12/21, 08/19/2006, Additional history exists GFR 01/16/2024 07/18/2023, 03/23, 03/15/2023, Additional history exists Albumin/Creatinine Ratio 03/02/2024 023, 02/21/2022, 07/23/2019 CKD PHOS USE SMARTSET 09412 03/02/202402/19, 10/07/2022, 02/21/2022, Additional history exists CKD HGB USE SMARTSET 04634 07/18/202407/18, 03/15/2023, 03/02/2023, Additional history exists O2 [...] the patient have Health Care Power of Sheltered Workshop Worker? No Care Teams Passenger Barge Master Relationship Specialty Start Date End Date Roman Ennis III, MD [address] [place] [address] PCP - General Family Medicine 06/28/18 documented as of this encounter
--- OUTSIDE RECORDS SUMMARY | 2023-10-18 15:32 | External Medical Summary ---
Author Name Unknown Address Unknown Organization [facility] [place] [address] [place] [address] Laboratory Report Ordering Provider Test Date Status NUNO SIMPSON 09/07/2023 11:59:50 Final Observation Date Value Abnormality Reference (Units ) Status Nucleated erythrocytes/100 leukocytes [Ratio] in Blood by Automated count 09/07/2023 11:59:50 Final Performing Location [facility] [place] [address] [place] [address]
--- OUTSIDE RECORDS SUMMARY | 2023-10-18 15:32 | External Medical Summary | Summary of Care ---
Author Name Unknown Organization [facility] Address [address] [place] [address] Phone [phone] Care Team Providers Care Overhauler Bus Truck Name Role Phone Loli NORWOOD MD, Roman Barraza Primary Care Provider [phone] Reason for Referral * Precert (Within 10 days (routine)) - Pending Review Specialty Diagnoses / Procedures Referred By Contac t Referred To Contact Radiology Diagnoses Nasopharyngeal mass Procedures CT NECK W CONTRAST Laurie Herrmann PA-C [address] [place] [address] Referral ID Status Reason Start Date Expiration Date V isits Requested Visits Authorized [id number] Pending Review 09/07/2023 999 999 * Precert (Within 10 days (routine)) - Pending Review Specialty Diagnoses / Procedures Referred By Contac t Referred To Contact Radiology Diagnoses Nasopharyngeal mass Procedures CT NECK WO CONTRAST Laurie Herrmann PA-C [address] [place] [address] Referral ID Status Reason Start Date Expiration Date V isits Requested Visits Authorized [id number] Pending Review 09/07/2023 999 999 Reason for Visit * Reason Comments NEW PATIENT * Evaluate & Treat - Unlimited Visits (Within 10 days (routine)) - Authorized Specialty Diagnoses / Procedures Referred By Contac t Referred To Contact Otolaryngology Diagnoses Abnormal CT scan of head Roman Ennis III, MD [address] [facility] [place] [address] Referral ID Status Reason Start Date Expiration Date Visits Requested Visits Authorized [id number] Authorized Specialty Services Required 10/14/[phone] Encounter Details Date Type Department Care Team (Late st Contact Info) Description 09/07/2023 11:00 AM EDT Office Visit Otolaryngology [facility] [address] [place] [address] Laurie Herrmann PA-C [address] [place] [address] Nasopharyngeal mass* Allergies Active Allergy Reactions Criticality Noted Date [...] morning. 30 Tablet 6 08/09/2023 Active Nystatin 996880 UNIT/GM External Powder (Nystop) Apply topically to [...] current use of insulin 07/28/2023 Atherosclerosis of [place] co ronary artery without angina pectoris 07/28/2023 [...] cardiomyopathy 07/18/2018 Coronary artery disease invo lving [place] coronary artery of [place] heart without angina pectoris 05/08/2018 Anxiety state 05/08/2018 ADVANCE DIRECTIVE INFORMATION 03/23/2018 Overview: No, Advance Directive brochure offered , patient declined. Incomplete uterovaginal prolapse 09/29/2017 Cystocele, lateral 09/29/2017 Vaginal atrophy 09/29/2017 Hepatitis C antibody test positive 05/09/2017 Overview: HCV treated; SVR Confirmed 03/05/2018 Controlled substance agreement signed 02/23/2017 Biventricular implantable ca rdioverter-defibrillator in situ 08/07/2013 Last Assessment & Plan: Followed by [facility] cardiology History of colonic polyps 09/04/2012 Overview: 09/01/2012: adenoma, repeat in 3 years ICD-10 update of inactive term Dyslipidemia, goal LDL below 70 05/07/2009 Overview: Per Lipid Taxonomy. OLD MYOCARDIAL INFARCT 12/11/2008 Overview: Modified by Acute AR Protocol #5. [facility] right coronary bare metal stents [...] for Patients with Cardiovascular Disease Project #: [id number] PI: Peyton Conn MD [phone] GENOMICS CARDIO RESEARCH OTHER*[id number] 01/15/2007 06/28/2016 Overview: Renamed Per Clinical Trials Billing Project. Study Title: Genomic Markers for Patients with Cardiovascular Disease Project #: [id number] PI: Peyton Conn MD [phone] LV (left ventricular) mural thrombus 10/30/2006 12/28/2017 Tobacco use disorder 09/07/2006 010 Acute inferior myocardial infarction 08/19/2006 12/11/2008 Overview: Modified by Acute AR Protocol #5. [facility] right coronary bare metal stents EXAMINATION OF PARTICIPANT I N CLINICAL TRIAL - [facility] 08/19/2006 09/04/2009 Overview: Renamed Per Clinical Trials Billing Project. [facility]I clinical trial 263 Single blind trial comparing heparin and IIB/IIIA with bivalirudin, and Taxus vs bare metal stent. Patient Follow-up for 5 years Commissioner Of Conciliation: Trent Verduzco [phone] [facility] Clinical Trial*[id number] 08/19/2006 09/08/2014 Overview: Renamed Per Clinical Trials Billing Project. [facility] AMI clinical trial 263 Single blind trial comparing heparin and IIB/IIIA with bivalirudin, and Taxus vs bare metal stent. Patient Follow-up for 5 years Commissioner Of Conciliation: Trent Verduzco [phone] Menopause 08/29/2002 02/23/2017 LOC PRIM [id number] 05/29/200206/23 Dyslipidemia, goal to be determined 05/29/2002 05/07/2009 Overview: Per Lipid Taxonomy. FAM HX-DIABETES MELLITUS 05/29/200209/2016 cystocoele 09/29/2017 Prolapse of vaginal lopez Overview: ICD-10 update of inactive term LEFT [...] Taken Comments Blood Pressure - - Pulse - - Temperature 36 C (96.8 F) 09/07/2023 10:51 AM EDT Respiratory Rate - - Oxygen Saturation - - Inhaled Oxygen Concentration - - Weight 72.3 kg (159 lb 8 oz) 09/07/2023 10:51 AM EDT Height 157.4 cm (5' 1.97") 09/07/2023 10:51 AM E DT Body Mass Index 29.2 09/07/2023 10:51 AM EDT documented in this encounter Progress Notes * Laurie Herrmann PA-C - 09/07/2023 10:57 AM EDT Images from the original note were not included. 09/07/2023 Nursing Notes: Lashawn Lopez LPN 09/07/23 1054 Signed Pt presents today due to being told she has a mass in her right nostril. The mass was found in December 2022. Pt denies having epistaxis episodes but does state she has clear drainage from both nostrils. Pt denies having trouble breathing from nostrils. Pt also reports having a bump in her left ear and states they are always itchy. HISTORY OF PRESENT ILLNESS This 78 year old female is seen at the request of Roman Ennis III, MD for the initial evaluation of right nasal mass. Pt reports that she had CT of the head while admitted to [facility] for seizure activity. 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 Discharge summary stated patient was to see ENT in January. She had an appointment in June with myself which she would to cancel due to being admitted. She reports that she is asymptomatic. She denies any ear symptoms including otalgia, aural fullnessor acute changes in hearing. Denies sore throat, dysphagia. Denies changes in nasal breathing or epistaxis. Past Medical History: Diagnosis Date Acute inferior myocardial infarction (HCC) 08/19/2006 [facility] right coronary bare metal stents Automatic implantable cardiac defibrillator in situ 11/24/2008 [facility], Dr Bhavani Loya EF 20-25% COMMON MIGRAINE [...] artery 3 bare metal stents, [facility] CARPAL TUNNEL SURGERY Bilateral 02/20/2020 NEUROPLASTY MEDIAN NERVE AT CARPAL TUNNEL performed by Lore Richey DO at OR [facility] COLONOSCOPY, DIAGNOSTIC (RECTUM) N/A 07/03/2023 hemorrhoids/biopsies show adenomatous polyps/recall 5 years/Colonoscopy/MN EGD, FLEXIBLE, DIAGNOSTIC N/A 07/03/2023 biopsies normal/EGD/MN INSERT PULSE GENERATOR, EXISTING SINGLE LEAD 08/06/2013 NEW ICD GENERATOR ONLY performed by Tylor Loya MD at [facility] LAP;W/HYSTERECTOMY 02/04/2020 LEFT VENTRICULAR PACING ELECTRODE, ADD-ON 11/24/2008 CS LEAD PLACEMENT WITH INITIAL DEVICE performed by TYLOR LOYA at [facility] MAMMOGRAM - BILATERAL 07/17/2002 Birad Code 2 PACEMAKER-DEFIBRILLATOR ELECTRODE INSERT, SINGLE 08/09/2013 REPLACE LEAD (1 LEAD) performed by Monik Arnold IV, MD at [facility] REMOVE CATARACT, INSERT LENS PROSTH Right REMOVE GALLBLADDER 1990s Cholecystectomy, Walker TENDON SHEATH INCISION, FINGER Bilateral 02/20/2020 TRIGGER FINGER RELEASE performed by Lore Richey DO at OR [facility] VAGINAL DELIVERY ONLY times 5 Medications Current Outpatient Medications Medication Sig Dispense Refill Ventolin HFA 108 (90 Base) MCG/ACT Inhalation Aerosol Solution Inhale 2 Puffs by mouth every 4 hours as needed for Wheezing or Dyspnea. 54 g 1 Cyanocobalamin 1000 MCG Oral Tablet (Cyanocobalamin) Take by mouth 1 Tablet in the morning. 100 Tablet 5 Nitroglycerin 0.4 MG Sublingual Tablet Sublingual (Nitrostat) DISSOLVE ONE TABLET UNDER THE TONGUE NEEDED FOR CHEST pain, maximum THREE doses 25 Tablet 5 Pantoprazole Sodium 40 MG Oral Tablet Delayed [...] mouth in the morning. 90 Tablet 5 Furosemide 40 MG Oral Tablet (Lasix) Take 1 Tablet by mouth daily AND 0.5 Tablets daily at noon. 135 Tablet 3 Anoro Ellipta 62.5-25 MCG/ACT Inhalation Aerosol Powder Breath Activated (umeclidinium-vilanterol) INHALE ONE PUFF EVERY DAY 180 Blister Dosing Unit 1 Gabapentin 300 MG Oral Capsule (Neurontin) Take one tablet by mouth in the morning and at noon and two tablets by mouth before bed. 120 Capsule 11 Ondansetron HCl 4 MG Oral Tablet (Zofran) Take 1 Tablet by mouth every 8 hours as needed for Nausea. 20 Tablet 0 Eliquis 5 MG Oral Tablet (Apixaban) TAKE ONE TABLET BY MOUTH TWICE DAILY 180 Tablet 3 Ferrous Sulfate 325 (65 Fe) MG Oral Tablet Delayed Release Take 1 Tablet by mouth in the morning and 1 Tablet before bedtime. 30 Tablet 6 Metoprolol Succinate ER 50 MG Oral Tablet Extended Release 24 Hour (toPROL XL) Take 1 Tablet by mouth in the morning and 1 Tablet before bedtime. 30 Tablet 6 Lisinopril 10 MG Oral Tablet (Prinivil) Take 1 Tablet by mouth in the morning. 30 Tablet 6 Nystatin 132565 UNIT/GM External Powder (Nystop) Apply topically to affected area 3 times a day. Apply to area under breasts 60 g 3 oxyCODONE HCl 5 MG Oral Tablet (Oxy IR) Take 1 Tablet by mouth every 6 hours as needed (pain). 100 Tablet 0 Clopidogrel Bisulfate 75 MG Oral Tablet (Plavix) Take 1 Tablet by mouth in the morning. 30 Tablet 5 No current facility-administered medications for this visit. Allergies Review of patient's allergies indicates: Allergen Reactions Imdur [Isosorbide Mononitrate] Severe headaches Nsaids Ultram [Tramadol Hcl] Nausea/vomiting UGI distress Family History Family History Problem Relation Age of Onset Cancer Mother cervical cancer Heart Disorder Mother CABG Diabetes Mother Cancer Father prostate cancer Heart Disorder Father Thyroid Disorder Father Thyroid Disorder Sister Ear Problems Sister meniers Cancer Brother No Past Hx Brother No Past Hx Daughter No Past Hx Son No Past Hx Son No Past Hx Son No Past Hx Son Social History Social History Tobacco Use Smoking status: Every Day Current packs/day: 0.00 Average packs/day: 0.3 packs/day for 20.0 years (5.0 ttl pk-yrs) Types: Cigarettes Last attempt to quit: 06/28/2023 Years since quittin.1 Smokeless tobacco: Never Substance Use Topics Alcohol use: No Vaping/E-Cigarette Use Vaping/E-Cigarette Use Never User Passive Exposure No Vaping/E-Cigarette Substances Nicotine No Other No Flavoring No THC No Cannabidiol (CBD) No Vaping/E-Cigarette Devices Disposable No Pre-filled or Refillable Cartridge No Refillable Tank No Pre-filled Pod No REVIEW OF SYSTEMS Negative for constitutional, heart, lung, liver, kidney, digestive, hematologic, neurologic, rheumatologic, or endocrine complaints except as per history of present illness and past medical history. PHYSICAL EXAMINATION: Temp 36 C (96.8 F) (Tympanic) | Ht 1.574 m (5' 1.97") | Wt 72.3 kg (159 lb 8 oz) | BMI 29.20 kg/m | BSA 1.78 m Physical Examination: General: this is a healthy appearing female who appears her stated age. The patient is alert and appropriately verbally conversant without hoarseness. Nose: Septum nonobstructing, turbinates normal, no masses, polyps, or mucopus. Oral Cavity: Examination of the oral cavity revealed no mass lesions nor infection. The palate was noted to be intact without evidence of clefting. The tongue exhibited normal mobility. Mucosa was moist without lesion. The lips were free of lesion. Gums were free of inflammation. Dentition: Unremarkable Oropharynx: The oral pharynx was free of mass lesion or mucosal abnormality. The palate was noted to be without lesions. The uvula was normal appearing. The tonsils were unremarkable Nasopharynx: See procedure Ears: Examination of the ears revealed that the auricles were normally formed with no lesions. The external auditory canals were cleaned of any obstructing cerumen. The tympanic membranes were intactand freely mobile to pneumatoscopy without perforation or significant retraction pockets. Neck: Visualization and palpation of the neck revealed no mass lesions, no thyromegaly or thyroid masses. No skin lesions or inflammatory processes were detected. The cervical musculature was normal to palpation. Lymphatics (cervical): There were no palpable lymph nodes in the posterior triangle, submandibular triangle, jugulodigastric region, or central neck In order to assess the paranasal sinuses, endoscopy of the nose and paranasal sinuses was performed. The nose was decongested with topical oxymetazoline 0.05% spray and then anesthetized with topicalLidocaine 4% spray. The scope was used to examine each side of the nose. There were no masses visualized. The nasal mucosa was without lesion. The middle meatus on each side was clear of mass, polyp,or mucopus. The septum was non-obstructing. The nasopharynx with mass. The patient tolerated the procedure well. Encounter Diagnoses Name Primary? Nasopharyngeal mass Yes Plan; Findings of examination and recommendations were discussed with the patient. CT scan with contrast will be ordered (spoke with radiologist can have CT dye with current kidney function). Will becontacted with results of CT scan and further recommendations, including arranging biopsy. Laurie Herrmann PA-C 09/07/2023 10:58 AM documented in this encounter Nursing Notes * aLshawn Lopez LPN - 09/07/2023 10:50 AM EDT Pt presents today due to being told she has a mass in her right nostril. The mass was found in December 2022. Pt denies having epistaxis episodes but does state she has clear drainage from both nostrils. Pt denies having trouble breathing from nostrils. Pt also reports having a bump in her left ear and states they are always itchy. documented in this encounter Plan of Treatment Upcoming Encounters Date Type Department Care Team (Late st Contact Info) Description 09/07/2023 1:00 PM EDT Imaging Radiology [facility] [address] [place] [address] Nasopharyngeal mass 09/20/2023 2:50 PM EDT Office Visit Vascular Surgery, [facility] [address] [place] [address] Albin Marr MD [address] [place] [address] 11/02/2023 1:40 PM EDT Office Visit Family Practice [facility] [address] [facility] [place] [address] Erica Marsh MD [address] [facility] [place] [address] 01/02/2024 9:00 AM EDT Office Visit Pharmacy, [facility] [address] [facility] [place] [address] [place], [facility] [address] [place] [address] Pending Results Name Type Priority Associated Diagnoses Date /Time CT NECK W CONTRAST Medical Imaging Routine Nasopharyngeal mass 09/07/2023 12:30 PM EDT Scheduled Orders Name Type Priority Associated Diagnoses Orde r Schedule CT NECK WO CONTRAST Medical Imaging Routine Nasopharyngeal mass Expected: 09/07/2023, Expires: 10/06/2024 CT NECK W CONTRAST Medical Imaging Routine Nasopharyngeal mass Expected: 09/07/2023, Expires: 10/06/2024 Scheduled Procedures Name Priority Associated Diagnoses Date/Ti me COLONOSCOPY FLEXIBLE PROXIMA L DIAGNOSTIC Recall History of colonic polyps Health Maintenance Due Date Last Done Comments DISCUSS TOBACCO CESSATION (REFER TO SMARTSET #9214) 1945 Alpha-1 Antitrypsin 1965 Diabetic Foot Exam 1965 DXA Scan 09/04/2016 09/04/2013, 09/04/2013 *ADVANCE DIRECTIVE NOT ON FILE 06/09/2019 COVID-19 Vaccine ( season) 2023 11/12/2020, 10/01/2020 Depression Screening 06/02/2023 06/02/2022 Diabetic Eye Exam 07/21/2023 07/20/2022 HbA1c 09/01/2023 03/02/2023, 12/21, 08/19/2006, Additional history exists Albumin/Creatinine Ratio 03/02/2024 023, 02/21/2022, 07/23/2019 CKD PHOS USE SMARTSET 01640 03/02/202402/19, 10/07/2022, 02/21/2022, Additional history exists GFR 03/08/2024 09/07/2023, 06/23, 04/18/2023, Additional history exists CKD HGB USE SMARTSET 16312 07/18/202407/18, 03/15/2023, 03/02/2023, Additional history exists O2 [...] Not on filedocumented as of this encounter Results * (ABNORMAL) CREATININE (09/07/2023 11:59 AM EDT) Creatinine 1.0 0.5 - 1.0 mg/dL 09/07/2023 12:21 PM EDT [facility] Estimated Glomerular Filtration Rate 56(L) >=60 mL/min 09/07/2023 12:21 PM EDT [facility] Comment:eGFR is calculated b ased on the CKD-EPI 2020 equation Blood Venous blood specimen / Unknown Venipuncture / Unknown 09/07/2023 11:59 AM EDT 09/07/2023 11:59 AM EDT Laurie Herrmann PA-C LAB BLOOD [facility] [address] [place] [address] documented in this encounter Visit Diagnoses Diagnosis Nasopharyngeal mass- Primary Unspecified disease of pharynx Nasopharyngeal mass Unspecified disease of pharynx documented [...] the patient have Health Care Power of Salesforce Trainer? No Care Teams Overhauler Bus Truck Relationship Specialty Start Date End Date Roman Ennis III, MD [address] [facility] [address] [place] [facility] [address] PCP - General Family Medicine 06/28/18 documented as of this encounter
--- OUTSIDE RECORDS SUMMARY | 2023-10-18 15:32 | External Medical Summary | Summary of Care ---
Author Name Unknown Organization [facility] Address [address] [facility] [place] [address] Phone [phone] Care Team Providers Care Chief Human Resources Officer Name Role Phone Loli NORWOOD MD, Marilyn Barraza Primary Care Provider [phone] Reason for Visit * Reason Comments eRx-Medication Refill Encounter Details Date Type Department Care Team (Late st Contact Info) Description 09/05/2023 Refill [facility], [facility] [address] [facility] [place] [address] Marilyn Nogueira III, MD [address] [facility] [address] Allergies Active Allergy Reactions Criticality Noted Date [...] morning. 30 Tablet 6 08/09/2023 Active Nystatin 965387 UNIT/GM External Powder (Nystop) Apply topically to affected area 3 times a day. Apply to area under breasts 60 g 3 08/24/2023 Active oxyCODONE HCl 5 MG Oral Tablet (Oxy IR)Indications:Station Operator fernando pain syndrome Take 1 Tablet by mouth every 6 hours as needed (pain). 100 Tablet 0 08/29/2023 Active Clopidogrel Bisulfate 75 MG Oral Tablet (Plavix) Take 1 Tablet by mouth in the morning. 30 Tablet 5 09/06/2023 Active Clopidogrel Bisulfate 75 MG Oral Tablet (Plavix) Take 1 Tablet by mouth in the morning. 30 Tablet 5 07/28/2023 4 Discontinue d(Refill) documented as of this encounter [...] current use of insulin 07/28/2023 Atherosclerosis of [place] co ronary artery without angina pectoris 07/28/2023 [...] cardiomyopathy 07/18/2018 Coronary artery disease invo lving igiugig coronary artery of ig[place] heart without angina pectoris 05/08/2018 Anxiety state 05/08/2018 ADVANCE DIRECTIVE INFORMATION 03/23/2018 Overview: No, Advance Directive brochure offered , patient declined. Incomplete uterovaginal prolapse 09/29/2017 Cystocele, lateral 09/29/2017 Vaginal atrophy 09/29/2017 Hepatitis C antibody test positive 05/09/2017 Overview: HCV treated; SVR Confirmed 03/05/2018 Controlled substance agreement signed 02/23/2017 Biventricular implantable ca rdioverter-defibrillator in situ 08/07/2013 Last Assessment & Plan: Followed by [facility] History of colonic polyps 09/04/2012 Overview: 09/01/2012: adenoma, repeat in 3 years ICD-10 update of inactive term Dyslipidemia, goal LDL below 70 05/07/2009 Overview: Per Lipid Taxonomy. OLD MYOCARDIAL INFARCT 12/11/2008 Overview: Modified by Acute [place] Protocol #5. [facility] [...] for Patients with Cardiovascular Disease Project #: [id number] PI: Peyton Conn MD [phone] GENOMICS CARDIO RESEARCH OTHER*[id number] 01/15/2007 06/28/2016 Overview: Renamed Per Clinical Trials Billing Project. Study Title: Genomic Markers for Patients with Cardiovascular Disease Project #: [id number] PI: Peyton Conn MD [phone] LV (left ventricular) mural thrombus 10/30/2006 12/28/2017 Tobacco use disorder 09/07/2006 010 Acute inferior myocardial infarction 08/19/2006 12/11/2008 Overview: Modified by Acute [place] Protocol #5. [facility] right coronary bare metal stents EXAMINATION OF PARTICIPANT I N CLINICAL TRIAL - HORIZONS 08/19/2006 09/04/2009 Overview: Renamed Per Clinical Trials Billing Project. [facility] AMI clinical trial 263 Single blind trial comparing heparin and IIB/IIIA with bivalirudin, and Taxus vs bare metal stent. Patient Follow-up for 5 years Pet Caregiver: Trent Verduzco [phone] [facility] Clinical Trial*[id number] 08/19/2006 09/08/2014 Overview: Renamed Per Clinical Trials Billing Project. [facility] AMI clinical trial 263 Single blind trial comparing heparin and IIB/IIIA with bivalirudin, and Taxus vs bare metal stent. Patient Follow-up for 5 years Pet Caregiver: Trent Verduzco [phone] [facility] 08/29/2002 02/23/2017 LOC PRIM [id number] 05/29/200206/23 Dyslipidemia, goal to be determined 05/29/2002 [...] as of this encounter Miscellaneous Notes * Addendum Note - Marilyn Nogueira III, MD - 09/06/2023 1:27 PM EDTAddended by: MARILYN NOGUEIRA on: 09/06/2023 01:27 PM Modules accepted: Orders * Telephone Encounter - Lin Ayala LPN - 09/06/2023 8:58 AM EDTRefused Prescriptions: Disp Refills Clopidogrel Bisulfate 75 MG Oral Tablet (p*30 Tab*5 Sig: TAKE ONE TABLET BY MOUTH IN THE MORNING Refused By: ERICA MARSH Reason for Refusal: Managed by another physician * Telephone Encounter - Erica Marsh MD - 09/05/2023 4:21 PM EDTRefused Prescriptions: Disp Refills Clopidogrel Bisulfate 75 MG Oral Tablet (p*30 Tab*5 Sig: TAKE ONE TABLET BY MOUTH IN THE MORNING Refused By: ERICA MARSH Reason for Refusal: Managed by another physician * Telephone Encounter - Andria Tamayo LPN - 09/05/2023 3:36 PM EDT Did you pend patient's preferred pharmacy and medication before forwarding?yes Pharmacy: [facility], [address] [place] Pending Prescriptions: Disp Refills [...] 01/15/2007 11:30 AM * Telephone Encounter - Nancy Roberts RPh - 09/05/2023 3:31 PM EDT Pending Prescriptions: Disp Refills Clopidogrel Bisulfate 75 MG Oral Tablet [P*30 Tab*5 Sig: TAKE ONE TABLET BY MOUTH IN THE MORNING documented in this encounter Plan of Treatment Upcoming Encounters Date Type Department Care Team (Late st Contact Info) Description 09/07/2023 11:00 AM EDT Office Visit Otolaryngology [facility] [address] [place] [address] Laurie Herrmann PA-C [address] [place] [address] 09/20/2023 2:50 PM EDT Office Visit Vascular Surgery, [facility] [address] [place] [address] Albin Marr MD [address] [place] [address] 11/02/2023 1:40 PM EDT Office Visit Family Practice [facility] [address] [facility] [place] [address] Erica Marsh MD [address] [facility] [place] [address] 01/02/2024 9:00 AM EDT Office Visit Pharmacy, [facility] [address] [place] [address] [facility] [address] [facility] [place] [address] Scheduled Procedures Name Priority Associated Diagnoses Date/Ti [...] 023, 02/21/2022, 07/23/2019 CKD PHOS USE SMARTSET 32546 03/02/202402/19, 10/07/2022, 02/21/2022, Additional history exists CKD HGB USE SMARTSET 64749 07/18/202407/18, 03/15/2023, 03/02/2023, Additional history exists O2 [...] the patient have Health Care Power of End Finder Twisting Department? No Care Teams Chief Human Resources Officer Relationship Specialty Start Date End Date Marilyn Nogueira III, MD [address] [place] [address] PCP - General Family Medicine 06/28/18 documented as of this encounter
--- OUTSIDE RECORDS SUMMARY | 2023-10-18 15:33 | External Medical Summary | Summary of Care ---
Author Name Unknown Organization [facility] Address [address] [facility] [address] Phone [phone] Care Team Providers Care Marketing Agent Name Role Phone Loli NORWOOD MD, Roman Barraza Primary Care Provider [phone] Reason for Visit * Reason Comments Return Neuro Encounter Details Date Type Department Care Team (Late st Contact Info) Description 08/29/2023 3:40 PM EDT Office Visit Neurology [facility] [place] [address] [facility] [place] [address] Ashlie Swift MD [address] [facility] [place] [address] Seizure disorder, complex partial, without intractable epilepsy (HCC)*; Visual hallucination Allergies Active Allergy Reactions Criticality Noted Date Comments Isosorbide Mononitrate 12/24/2007 Severe headaches Nsaids 05/29/2002 Tramadol Hcl Nausea/vomiting Low 01/09/2008 UGI distress documented as of this encounter (statuses as of 08/29/2023) Medications Medication Sig Dispensed Refills Start Date [...] for Nausea. 20 Tablet 0 07/18/2023 Active Clopidogrel Bisulfate 75 MG Oral Tablet (Plavix) Take 1 Tablet by mouth in the morning. 30 Tablet 5 07/28/2023 Active Eliquis 5 MG Oral Tablet (Apixaban) [...] morning. 30 Tablet 6 08/09/2023 Active Nystatin 686658 UNIT/GM External Powder (Nystop) Apply topically to affected area 3 times a day. Apply to area under breasts 60 g 3 08/24/2023 Active oxyCODONE HCl 5 MG Oral Tablet (Oxy IR)Indications:Chron ic pain syndrome Take 1 Tablet by mouth every 6 hours as needed (pain). 100 Tablet 0 08/29/2023 Active documented as of this encounter (statuses as of 08/29/2023) Active Problems Problem Noted Date Diagnosed Date [...] kidney disease 07/31/2023 Overview: Per CKD protocol Chronic kidney disease, stage 3b 07/31/2023 Overview: Per CKD protocol Hypertensive heart [...] current use of insulin 07/28/2023 Atherosclerosis of [place] co ronary artery without angina pectoris 07/28/2023 [...] cardiomyopathy 07/18/2018 Coronary artery disease invo lving seminole coronary artery of seminole heart without angina pectoris 05/08/2018 Anxiety state 05/08/2018 ADVANCE DIRECTIVE INFORMATION 03/23/2018 Overview: No, Advance Directive brochure offered , patient declined. Incomplete uterovaginal prolapse 09/29/2017 Cystocele, lateral 09/29/2017 Vaginal atrophy 09/29/2017 Hepatitis C antibody test positive 05/09/2017 Overview: HCV treated; SVR Confirmed 03/05/2018 Controlled substance agreement signed 02/23/2017 Biventricular implantable ca rdioverter-defibrillator in situ 08/07/2013 Last Assessment & Plan: Followed by [facility] cardiology History of colonic polyps 09/04/2012 Overview: 09/01/2012: adenoma, repeat in 3 years ICD-10 update of inactive term Dyslipidemia, goal LDL below 70 05/07/2009 Overview: Per Lipid Taxonomy. OLD MYOCARDIAL INFARCT 12/11/2008 Overview: Modified by Acute [place] Protocol #5. [facility] right coronary bare metal stents S/P angioplasty with stent 09/07/2006 History of tobacco use documented as of this encounter (statuses as of 08/29/2023) Resolved Problems Problem Noted Date Diagnosed Date Resolved Date Stage 3 chronic kidney disease 07/28/2023 08/03/2023 [...] for Patients with Cardiovascular Disease Project #: [id number] PI: Peyton Conn MD [phone] GENOMICS CARDIO RESEARCH OTHER*[id number] 01/15/2007 06/28/2016 Overview: Renamed Per Clinical Trials Billing Project. Study Title: Genomic Markers for Patients with Cardiovascular Disease Project #: [id number] PI: Peyton Conn MD [phone] LV (left ventricular) mural thrombus 10/30/2006 12/28/2017 Tobacco use disorder 09/07/2006 010 Acute inferior myocardial infarction 08/19/2006 12/11/2008 Overview: Modified by Acute [place] Protocol #5. [facility] right coronary bare metal stents EXAMINATION OF PARTICIPANT I N CLINICAL TRIAL - HORIZONS 08/19/2006 09/04/2009 Overview: Renamed Per Clinical Trials Billing Project. [facility] AMI clinical trial 263 Single blind trial comparing heparin and IIB/IIIA with bivalirudin, and Taxus vs bare metal stent. Patient Follow-up for 5 years Teller Manager: Trent Verduzco [phone] [facility] Clinical Trial*[id number] 08/19/2006 09/08/2014 Overview: Renamed Per Clinical Trials Billing Project. [facility] AMI clinical trial 263 Single blind trial comparing heparin and IIB/IIIA with bivalirudin, and Taxus vs bare metal stent. Patient Follow-up for 5 years Teller Manager: Trent Verduzco [phone] [facility] 08/29/2002 02/23/2017 LOC PRIM [id number] 05/29/200206/23 Dyslipidemia, goal to be determined 05/29/2002 05/07/2009 Overview: Per Lipid Taxonomy. 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 02/23/2017 documented as of this encounter (statuses as of 08/29/2023) Immunizations Name Administration Dates Next Due COVID-19 [...] uit: Not Asked; Counseling Given: Not Answered Alcohol Use Standard Drinks/Week Comments No 0 [...] Sign Reading Time Taken Comments Blood Pressure 104/64 08/29/2023 3:19 PM EDT Pulse 58 08/29/2023 3:19 PM EDT Temperature 36 C (96.8 F) 08/29/2023 3:19 PM EDT Respiratory Rate 20 08/29/2023 3:19 PM EDT Oxygen Saturation 97% 08/29/2023 3:19 PM EDT Inhaled Oxygen Concentration - - Weight 71 kg (156 lb 8 oz) 08/29/2023 3:19 PM ED T Height - - Body Mass Index 28.65 07/28/2023 8:59 AM EST documented in this encounter Progress Notes * Ashlie Swift MD - 08/29/2023 3:44 PM EDT Progress Note - Neurology [address] [address] NAME: Radha Tong Date of : 1945 Date of Visit: 08/29/23 Chief Complaint: Chief Complaint Patient presents with Return Neuro Subjective: f/u seizure; seeing black unformed images in periphery, not formed Neuro ROS: neg for stroke sx HOME MEDICATIONS : Current Outpatient Medications Medication [...] as needed for Nausea. 20 Tablet 0 Clopidogrel Bisulfate 75 MG Oral Tablet (Plavix) Take 1 Tablet by mouth in the morning. 30 Tablet 5 Eliquis 5 MG Oral Tablet (Apixaban) TAKE [...] in the morning. 30 Tablet 6 Nystatin 324227 UNIT/GM External Powder (Nystop) Apply topically to [...] Nsaids Ultram [Tramadol Hcl] Nausea/vomiting UGI distress PHYSICAL EXAMINATION: Vital Signs: BP 104/64 (BP Site: Right Arm, BP Position: Sitting, BP Cuff Size: Regular) | Pulse 58 | Temp 36 C (96.8 F) (Tympanic) | Resp 20 | Wt 71 kg (156 lb 8 oz) | SpO2 97% | BMI 28.65 kg/m | BSA 1.76 m EXAM: Constitutional: appearance normally developed, well nourished. Head and Face: normocephalic and atraumatic Cardiovascular: heart sounds are normal. Rhythm is sinus NEUROLOGIC EXAM Higher integrative is obviously intact. Cranial Nerves: CN 2 - no visual defect on confrontation and pupils round, equal, reactive to light CN 3, 4, 6 - extra-ocular movements intact and no nystagmus CN 7 - no facial asymmetry CN 9, 10 - palate symmetric CN 12 - tongue midline Motor: Normal, without pronator drift Coordination: Normal finger to nose and rapid alternating movement of lower extremities IMPRESSION / PLAN: Seizures stable; same meds Visual hallucinations are likely not neurologic and perhaps related to vitreous detachment. She hasa previous relationship with Carmen Perez. She and her accompanying [id number] voiced crystal clear understanding turn to be in touch with [facility] to have this evaluated. documented in this encounter Nursing Notes * Keyana Enriquez LPN - 08/29/2023 3:18 PM EDT Patient verified identity by spelling of last name and date. Chief Complaint Patient presents with Return Neuro documented in this encounter Plan of Treatment Upcoming Encounters Date Type Department Care Team (Late st Contact Info) Description 09/07/2023 11:00 AM EDT Office Visit Otolaryngology [facility] [address] [place] [address] Laurie Herrmann PA-C [address] [place] [address] 09/20/2023 2:50 PM EDT Office Visit [facility], [facility] [place] [address] Albin Marr MD [address] [place] [address] 11/02/2023 1:40 PM EDT Office Visit Family Practice [facility] [address] [facility] [place] [address] Erica Marsh MD [address] [facility] [place] [address] Scheduled Procedures Name Priority Associated Diagnoses Date/Ti [...] 023, 02/21/2022, 07/23/2019 CKD PHOS USE SMARTSET 70999 03/02/202402/19, 10/07/2022, 02/21/2022, Additional history exists CKD HGB USE SMARTSET 82562 07/18/202407/18, 03/15/2023, 03/02/2023, Additional history exists O2 [...] as of this encounter Visit Diagnoses Diagnosis Seizure disorder, complex partial, 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 No Care Teams Marketing Agent Relationship Specialty Start Date End Date Roman Ennis III, MD [address] [facility] [place] [address] PCP - General Family Medicine 06/28/18 documented as of this encounter
--- OUTSIDE RECORDS SUMMARY | 2023-10-18 15:33 | External Medical Summary | Summary of Care ---
Author Name Unknown Organization [facility] Address [address] [facility] [place] [address] Phone [phone] Care Team Providers Care Tree Pruner Name Role Phone Loli NORWOOD MD, Marilyn Barraza Primary Care Provider [phone] Reason for Visit * Reason Onset Date Comments Medication Refill 08/28/2023 Encounter Details Date Type Department Care Team (Late st Contact Info) Description 08/28/2023 Refill Family Practice [facility] [place] [address] [facility] [place] [place] [address] Marilyn Nogueira III, MD 200 [facility] [place] [address] Chronic pain syndrome Allergies Active Allergy Reactions [...] morning. 30 Tablet 6 08/09/2023 Active Nystatin 996324 UNIT/GM External Powder (Nystop) Apply topically to affected area 3 times a day. Apply to area under breasts 60 g 3 08/24/2023 Active oxyCODONE HCl 5 MG Oral Tablet (Oxy IR)Indications:Airline Hostess fernando pain syndrome Take 1 Tablet by mouth every 6 hours as needed (pain). 100 Tablet 0 08/29/2023 Active oxyCODONE HCl 5 MG Oral Tablet (Oxy IR)Indications:Airline Hostess fernando pain syndrome Take 1 Tablet by mouth every 6 hours as needed (pain). 100 Tablet 0 08/05/2023 Discontinue d(Refill) documented as of this encounter (statuses as of 08/29/2023) Active Problems Problem Noted Date Diagnosed Date Chronic kidney disease, stage 3b 07/31/2023 Overview: [...] current use of insulin 07/28/2023 Atherosclerosis of [place] co ronary artery without angina pectoris 07/28/2023 [...] cardiomyopathy 07/18/2018 Coronary artery disease invo lving [place] coronary artery of [place] heart without angina pectoris 05/08/2018 Anxiety state 05/08/2018 ADVANCE DIRECTIVE INFORMATION 03/23/2018 Overview: No, Advance Directive brochure offered , patient declined. Incomplete uterovaginal prolapse 09/29/2017 Cystocele, lateral 09/29/2017 Vaginal atrophy 09/29/2017 Hepatitis C antibody test positive 05/09/2017 Overview: HCV treated; SVR Confirmed 03/05/2018 Controlled substance agreement signed 02/23/2017 Biventricular implantable ca rdioverter-defibrillator in situ 08/07/2013 Last Assessment & Plan: Follow[place] by [facility] [place] History of colonic polyps 09/04/2012 Overview: 09/01/2012: adenoma, repeat in 3 years ICD-10 update of inactive term Dyslipidemia, goal LDL below 70 05/07/2009 Overview: Per Lipid Taxonomy. OLD MYOCARDIAL INFARCT 12/11/2008 Overview: Modified by Acute [place] Protocol #5. [facility] [...] for Patients with Cardiovascular Disease Project #: [id number] PI: Peyton Conn MD [phone] GENOMICS CARDIO RESEARCH OTHER*[id number] 01/15/2007 06/28/2016 Overview: Renamed Per Clinical Trials Billing Project. Study Title: Genomic Markers for Patients with Cardiovascular Disease Project #: [id number] PI: Peyton Conn MD [phone] LV (left ventricular) mural thrombus 10/30/2006 12/28/2017 Tobacco use disorder 09/07/2006 010 Acute inferior myocardial infarction 08/19/2006 12/11/2008 Overview: Modified by Acute [place] Protocol #5. [facility] [place] right coronary bare metal stents EXAMINATION OF PARTICIPANT I N CLINICAL TRIAL - HORIZONS 08/19/2006 09/04/2009 Overview: Renamed Per Clinical Trials Billing Project. [facility] [place] AMI clinical trial 263 Single blind trial comparing heparin and IIB/IIIA with bivalirudin, and Taxus vs bare metal stent. Patient Follow-up for 5 years Lithography Contact Worker: Trent Verduzco [phone] [facility] Clinical Trial*[id number] 08/19/2006 09/08/2014 Overview: Renamed Per Clinical Trials Billing Project. [facility] [place] AMI clinical trial 263 Single blind trial comparing heparin and IIB/IIIA with bivalirudin, and Taxus vs bare metal stent. Patient Follow-up for 5 years Lithography Contact Worker: Trent Verduzco [phone] Menopause 08/29/2002 02/23/2017 LOC PRIM [id number] 05/29/200206/23 Dyslipidemia, goal to be determined 05/29/2002 [...] Types Packs/Day Years Used Date Smoking Tobacco: Former Cigarettes 0.3 20 Q uit: 06/28/2023 Smokeless Tobacco: Never Alcohol Use Standard [...] Encounter - Marilyn Nogueira III, MD - 08/29/2023 12:48 PM EDTSigned Prescriptions: Disp Refills oxyCODONE HCl 5 MG Oral Tablet (Oxy IR) 100 Ta*0 Sig: Take 1 Tablet by mouth every 6 hours as needed (pain).Authorizing Provider: MARILYN NOGUEIRA III * Telephone Encounter - Hanh Palacios [facility] - 08/29/2023 12:19 PM EDTPending Prescriptions: Disp Refills oxyCODONE HCl 5 MG Oral Tablet (Oxy IR) 100 Ta*0 Sig: Take 1 Tablet by mouth every 6 hours as needed (pain). * Telephone Encounter - Hanh Palacios [facility] - 08/29/2023 12:18 PM EDT I have reviewed the patients controlled substance dispensing history in the Prescription Drug Monitoring Program in compliance with the [facility] regulations before prescribing a controlled substance. PDMP checked on 08/29/2023. Pending Prescriptions: Disp Refills oxyCODONE HCl 5 MG Oral Tablet (Oxy IR) 100 Ta*0 Sig: Take 1 Tablet by mouth every 6 hours as needed (pain). Last Visit: 07/28/2023 (in office), 08/24/2020 (telemedicine) Next Visit: 11/02/2023 Date medication was last filled: 08/05/23 Date medication is due for refill: 08/29/23 Pharmacy: [facility], [address] [place] Is this request for [...] Results Review. Please approve if appropriate. Thanks, Hanh Palacios, PharmD Clinical Pharmacist [facility] ([facility]) [phone] 08/29/2023 12:18 PM * Telephone Encounter - Monserrat Robin PHARM Tech - 08/28/2023 8:51 AM EDT Did you pend patient's preferred pharmacy and medication before forwarding?yes Pharmacy: [facility], [address] [place] Pending Prescriptions: Disp Refills [...] appointment Last date the medication was ordered: 08/05/2023 Is this request for a controlled substance?Yes, What was the last refill date 08/05/2023 w/ quantity 100 and dosage 5mg and [...] 08/29/2023 3:40 PM EDT Office Visit Neurology [facility] [address] [facility] [place] [address] Ashlie Swift MD [facility] [address] 09/07/2023 11:00 AM EDT Office Visit Otolaryngology [facility] [address] [place] [address] Laurie Herrmann PA-C [address] [place] [address] 09/20/2023 2:50 PM EDT Office Visit Vascular Surgery, [facility] [address] [place] [address] Albin Marr MD [address] [place] [address] 11/02/2023 1:40 PM EDT Office Visit Family Practice [facility] [address] [facility] [place] [address] Erica Marsh MD 200 [facility] [place] [address] Scheduled Procedures Name Priority Associated Diagnoses Date/Ti me COLONOSCOPY FLEXIBLE PROXIMA L DIAGNOSTIC Recall History of colonic polyps Health Maintenance Due Date Last Done Comments Alpha-1 Antitrypsin 1965 Diabetic Foot Exam 1965 DXA Scan 09/04/2016 09/04/2013, 09/04/2013 *ADVANCE DIRECTIVE NOT ON FILE 06/09/2019 COVID-19 Vaccine ( season) 2023 11/12/2020, 10/01/2020 Depression Screening 06/02/2023 06/02/2022 Diabetic Eye Exam 07/21/2023 07/20/2022 HbA1c 09/01/2023 03/02/2023, 12/21, 08/19/2006, Additional history exists GFR 01/16/2024 07/18/2023, 03/23, 03/15/2023, Additional history exists Albumin/Creatinine Ratio 03/02/2024 023, 02/21/2022, 07/23/2019 CKD PHOS USE SMARTSET 69265 03/02/202402/19, 10/07/2022, 02/21/2022, Additional history exists CKD HGB USE SMARTSET 72312 07/18/202407/18, 03/15/2023, 03/02/2023, Additional history exists O2 ASSESSMENT COMPLETED IN PAST YEAR FOR COPD 07/27/2024 07/28/2023 COLONOSCOPY-EVERY 5 YRS AGES 18-100 07/03/2028 07/03/2023, [...] the patient have Health Care Power of Home Therapy Teacher? No Care Teams Tree Pruner Relationship Specialty Start Date End Date Marilyn Nogueira III, MD [address] [place] [address] PCP - General Family Medicine 06/28/18 documented as of this encounter
--- OUTSIDE RECORDS SUMMARY | 2023-10-18 15:33 | External Medical Summary | Summary of Care ---
Author Name Unknown Organization [facility] Address [address] [facility] [place] [address] Phone [phone] Care Team Providers Care Supervisor Prop Making Name Role Phone Loli NORWOOD MD, Marilyn Barraza Primary Care Provider [phone] Reason for Visit * Reason Comments eRx-Medication Refill Encounter Details Date Type Department Care Team (Late st Contact Info) Description 09/05/2023 Refill [facility], [facility] 132 [facility] [place] [address] Marilyn Nogueira III, MD 200 [facility] [address] Allergies Active Allergy Reactions Criticality Noted Date [...] morning. 30 Tablet 6 08/09/2023 Active Nystatin 795289 UNIT/GM External Powder (Nystop) Apply topically to affected area 3 times a day. Apply to area under breasts 60 g 3 08/24/2023 Active oxyCODONE HCl 5 MG Oral Tablet (Oxy IR)Indications:[facility] fernando pain syndrome Take 1 Tablet by [...] current use of insulin 07/28/2023 Atherosclerosis of [place] co ronary artery without angina pectoris 07/28/2023 [...] cardiomyopathy 07/18/2018 Coronary artery disease invo lving [place] coronary artery of [place] heart without angina pectoris 05/08/2018 Anxiety state 05/08/2018 ADVANCE DIRECTIVE INFORMATION 03/23/2018 Overview: No, Advance Directive brochure offered , patient declined. Incomplete uterovaginal prolapse 09/29/2017 Cystocele, lateral 09/29/2017 Vaginal atrophy 09/29/2017 Hepatitis C antibody test positive 05/09/2017 Overview: HCV treated; SVR Confirmed 03/05/2018 Controlled substance agreement signed 02/23/2017 Biventricular implantable ca rdioverter-defibrillator in situ 08/07/2013 Last Assessment & Plan: Followed by [facility] cardi[place] History of colonic polyps 09/04/2012 Overview: 09/01/2012: adenoma, repeat in 3 years ICD-10 update of inactive term Dyslipidemia, goal LDL below 70 05/07/2009 Overview: Per Lipid Taxonomy. OLD MYOCARDIAL INFARCT 12/11/2008 Overview: Modified by Acute [place] Protocol [facility]. [facility] for Patients with Cardiovascular Disease Project #: [id number] PI: Peyton Conn MD [phone] GENOMICS CARDIO RESEARCH OTHER*[id number] 01/15/2007 06/28/2016 Overview: Renamed Per Clinical Trials Billing Project. Study Title: Genomic Markers for Patients with Cardiovascular Disease Project #: [id number] PI: Peyton Conn MD [phone] LV (left ventricular) mural thrombus 10/30/2006 12/28/2017 Tobacco use disorder 09/07/2006 010 Acute inferior myocardial infarction 08/19/2006 12/11/2008 Overview: Modified by Acute [place] Protocol #5. [facility] right coronary bare metal stents EXAMINATION OF PARTICIPANT I N CLINICAL TRIAL - HORIZONS 08/19/2006 09/04/2009 Overview: Renamed Per Clinical Trials Billing Project. [facility] [place] AMI clinical trial 263 Single blind trial comparing heparin and IIB/IIIA with bivalirudin, and Taxus vs bare metal stent. Patient Follow-up for 5 years Deck Officer: Trent Verduzco [phone] [facility] Clinical Trial*[id number] 08/19/2006 09/08/2014 Overview: Renamed Per Clinical Trials Billing Project. [facility] [place] AMI clinical trial 263 Single blind trial comparing heparin and IIB/IIIA with bivalirudin, and Taxus vs bare metal stent. Patient Follow-up for 5 years Deck Officer: Trent Verduzco [phone] [facility] 08/29/2002 02/23/2017 LOC PRIM [id number] 05/29/200206/23 Dyslipidemia, goal to be determined 05/29/2002 [...] MOUTH IN THE MORNING Refused By: ERICA MRASH Reason for Refusal: Managed by another physician [...] preferred pharmacy and medication before forwarding?yes Pharmacy: [facility], [address] [place] Pending Prescriptions: Disp Refills [...] 09/07/2023 11:00 AM EDT Office Visit Otolaryngology [facility] [address] [place] [address] Laurie Herrmann PA-C [address] [place] [address] 09/20/2023 2:50 PM EDT Office Visit Vascular Surgery, [facility] [address] [place] [address] Albin Marr MD [address] [place] [address] 11/02/2023 1:40 PM EDT Office Visit Family Practice [facility] [address] [facility] [place] [address] Erica Marsh MD [address] [facility] [place] [address] 01/02/2024 9:00 AM EDT Office Visit Pharmacy, [facility] [address] [place] [address] [facility] 132 [facility] [place] [address] Scheduled Procedures Name Priority Associated Diagnoses Date/Ti [...] 023, 02/21/2022, 07/23/2019 CKD PHOS USE SMARTSET 85050 03/02/202402/19, 10/07/2022, 02/21/2022, Additional history exists CKD HGB USE SMARTSET 30241 07/18/202407/18, 03/15/2023, 03/02/2023, Additional history exists O2 [...] the patient have Health Care Power of Piped Pocket Machine Operator? No Care Teams Supervisor Prop Making Relationship Specialty Start Date End Date Marilyn Nogueira III, MD [address] [place] [address] PCP - General Family Medicine 06/28/18 documented as of this encounter
--- OUTSIDE RECORDS SUMMARY | 2023-10-18 15:33 | External Medical Summary | Summary of Care ---
Author Name Unknown Organization [facility] Address [address] [facility] [place] [address] Phone [phone] Care Team Providers Care Digital Press Operator Name Role Phone Loli NORWODO MD, Roman Barraza Primary Care Provider [phone] Reason for Visit * Reason Onset Date Comments [facility]: Maintenance 08/25/2023 Encounter Details Date Type Department Care Team (Late st Contact Info) Description 08/25/2023 10:45 AM EDT Scheduled Telephone [facility], [facility] [address] [place] [address] Coordinator, [facility] 132 [facility] [place] [address] Allergies Active Allergy Reactions Criticality Noted Date Comments Isosorbide Mononitrate 12/24/2007 Severe headaches Nsaids 05/29/2002 Tramadol Hcl Nausea/vomiting Low 01/09/2008 UGI distress documented as of this encounter (statuses as of 08/25/2023) Medications Medication Sig Dispensed Refills Start Date [...] the morning. 30 Tablet 5 07/28/2023 Active oxyCODONE HCl 5 MG Oral Tablet (Oxy IR)Indications:Chron ic pain syndrome Take 1 Tablet by mouth every 6 hours as needed (pain). 100 Tablet 0 08/05/2023 Active Eliquis 5 MG Oral Tablet (Apixaban) [...] morning. 30 Tablet 6 08/09/2023 Active Nystatin 880181 UNIT/GM External Powder (Nystop) Apply topically to affected area 3 times a day. Apply to area under breasts 60 g 3 08/24/2023 Active documented as of this encounter (statuses as of 08/25/2023) Active Problems Problem Noted Date Diagnosed Date [...] current use of insulin 07/28/2023 Atherosclerosis of [place] co ronary artery without angina pectoris 07/28/2023 [...] cardiomyopathy 07/18/2018 Coronary artery disease invo lving [place] coronary [...] Overview: Modified by Acute [place] Protocol #5. [facility] right coronary bare metal stents S/P angioplasty with stent 09/07/2006 History of tobacco use documented as of this encounter (statuses as of 08/25/2023) Resolved Problems Problem Noted Date Diagnosed Date [...] for Patients with Cardiovascular Disease Project #: [id number] PI: Peyton Conn MD [phone] GENOMICS CARDIO RESEARCH OTHER*[id number] 01/15/2007 06/28/2016 Overview: Renamed Per Clinical Trials Billing Project. Study Title: Genomic Markers for Patients with Cardiovascular Disease Project #: [id number] PI: Peyton Conn MD [phone] LV (left ventricular) mural thrombus 10/30/2006 12/28/2017 Tobacco use disorder 09/07/2006 010 Acute inferior myocardial infarction 08/19/2006 12/11/2008 Overview: Modified by Acute [place] Protocol #5. [facility] right coronary bare metal stents EXAMINATION OF PARTICIPANT I N CLINICAL TRIAL - HORIZONS 08/19/2006 09/04/2009 Overview: Renamed Per Clinical Trials Billing Project. [facility] AMI clinical trial 263 Single blind trial comparing heparin and IIB/IIIA with bivalirudin, and Taxus vs bare metal stent. Patient Follow-up for 5 years Armored Cable Machine Operator: Trent Verduzco [phone] [facility] Clinical Trial*[id number] 08/19/2006 09/08/2014 Overview: Renamed Per Clinical Trials Billing Project. [facility] AMI clinical trial 263 Single blind trial comparing heparin and IIB/IIIA with bivalirudin, and Taxus vs bare metal stent. Patient Follow-up for 5 years Armored Cable Machine Operator: Trent Verduzco [phone] Menopause 08/29/2002 02/23/2017 LOC PRIM [id number] 05/29/200206/23 Dyslipidemia, goal to be determined 05/29/2002 05/07/2009 Overview: Per Lipid Taxonomy. 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 Objective: 08/09/2023 2:43 PM 07/28/2023 8:59 AM 07/18/2023 9:04 AM 07/06/2023 1:25 PM 05/25/2023 12:10 PM VITALS ACROSS ENCOUNTERS BP 98/62 104/64 124/72 98/62 118/60 Pulse 56 53 56 80 76 Weight 72.5 kg 72.2 kg 72.1 kg 68 kg BMI 29.13 BMI 29.27 kg/m2 29.13 kg/m2 29.11 kg/m2 27.46 kg/m2 Remote Patient Monitoring: NONE Oxygen Needs: NO supplemental oxygen needs identified DME Needs: NO DME needs identified Medications: New medication(s) added: Nystatin powder Subjective: Condition Status: No change in symptoms Current Concerns: Phone call to first listed phone number, talked to HERNANDEZ Hearn who requests intake call patient on her mobile number [phone] for follow up. She states if patient did not receive Nystatin powder she will pick it up. Phone call to patient who reports no change in fungal rash under bilateral breasts. Patient states she has had it before and does have "yeast odor". She states fungal rash is length of her breasts. Denies any open areas. +redness, - warmth, -drainage. Denies fever or chills. Patient is using clean cloths under breasts. Patient did not receive Nystatin powder yet, [facility] is going to deliver today. Reinforced instructions to keep skin under the breasts clean and dry, cotton cloths under breasts to prevent skin to skin contact. Monitor for s/s of infection (i.e redness, warmth, fever, chills, drainage, worsening odor). Advised to call [facility] back with any new or worsening symptoms. Disposition: Weekend call scheduled Future Visits Scheduled: Future Appointments-next 60 days Date/Time Provider Specialty Dept Phone 08/25/2023 10:45 AM Coord[facility] [phone] 08/29/2023 3:40 PM (Arrive by 3:25 PM) Ashlie Swift MD Neurology [phone] 09/07/2023 11:00 AM (Arrive by 10:45 AM) Laurie Herrmann PA-C Otolaryngology [phone] 09/20/2023 2:50 PM Albin Marr MD Vascular Surgery [phone] 11/02/2023 1:40 PM (Arrive by 1:25 PM) Erica Marsh MD Family Medicine [phone] Jessy Barillas RN documented in this encounter Plan of Treatment Upcoming Encounters Date Type Department Care Team (Late st Contact Info) Description 08/26/2023 11:30 AM EDT Scheduled Telephone [facility], [facility] 132 [facility] [place] [address] Region, Nurse [facility] 132 [facility] [place] [address] 08/29/2023 3:40 PM EDT Office Visit Neurology [facility] 200 [facility] [place] [address] Ashlie Swift MD 200 [facility] [place] [address] 09/07/2023 11:00 AM EDT Office Visit Otolaryngology [facility] [address] [place] [address] Laurie Herrmann PA-C 132 [place] [address] 09/20/2023 2:50 PM EDT Office Visit Vascular Surgery, [facility] [address] [place] [address] Albin Marr MD [address] [place] [address] 11/02/2023 1:40 PM EDT Office Visit Family Practice [facility] 200 [facility] [place] [address] Erica Marsh MD 200 [facility] [place] [address] Scheduled Procedures Name Priority Associated Diagnoses Date/Ti [...] 023, 02/21/2022, 07/23/2019 CKD PHOS USE SMARTSET 30614 03/02/202402/19, 10/07/2022, 02/21/2022, Additional history exists CKD HGB USE SMARTSET 28892 07/18/202407/18, 03/15/2023, 03/02/2023, Additional history exists O2 [...] the patient have Health Care Power of Lastex Thread Winder? No Care Teams Digital Press Operator Relationship Specialty Start Date End Date Roman Ennis III, MD 200 [place] [address] PCP - General Family Medicine 06/28/18 documented as of this encounter
--- OUTSIDE RECORDS SUMMARY | 2023-10-18 15:33 | External Medical Summary | Summary of Care ---
Author Name Unknown Organization [facility] Address [address] [facility] [place] [address] Phone [phone] Care Team Providers Care Indirect Sales Representative Name Role Phone Loli NORWOOD MD, Roman Barraza Primary Care Provider [phone] Reason for Visit * Reason Onset Date Comments [facility]: Acute 08/24/2023 Encounter Details Date Type Department Care Team (Late st Contact Info) Description 08/24/2023 Telephone [facility], [facility] [address] [place] [address] [facility], Nurse [address] [place] [id number] [facility]: Acute Allergies Active Allergy Reactions Criticality Noted Date Comments Isosorbide Mononitrate 12/24/2007 Severe headaches Nsaids 05/29/2002 Tramadol Hcl Nausea/vomiting Low 01/09/2008 UGI distress documented as of this encounter (statuses as of 08/24/2023) Medications Medication Sig Dispensed Refills Start Date [...] morning. 30 Tablet 6 08/09/2023 Active Nystatin 268370 UNIT/GM External Powder (Nystop) Apply topically to affected area 3 times a day. Apply to area under breasts 60 g 3 08/24/2023 Active documented as of this encounter (statuses as of 08/24/2023) Active Problems Problem Noted Date Diagnosed Date [...] current use of insulin 07/28/2023 Atherosclerosis of [place] co ronary artery without angina pectoris 07/28/2023 [...] cardiomyopathy 07/18/2018 Coronary artery disease invo lving [place] coronary artery of [place] heart without angina pectoris 05/08/2018 Anxiety state 05/08/2018 ADVANCE DIRECTIVE INFORMATION 03/23/2018 Overview: No, Advance Directive brochure offered , patient declined. Incomplete uterovaginal prolapse 09/29/2017 Cystocele, lateral 09/29/2017 Vaginal atrophy 09/29/2017 Hepatitis C antibody test positive 05/09/2017 Overview: HCV treated; SVR Confirmed 03/05/2018 Controlled substance agreement signed 02/23/2017 Biventricular implantable ca rdioverter-defibrillator in situ 08/07/2013 Last Assessment & Plan: Followed by [facility] cardiology History of colonic polyps 09/04/2012 Overview: 09/01/2012: adenoma, repeat in 3 years ICD-10 update of inactive term Dyslipidemia, goal LDL below 70 05/07/2009 Overview: Per Lipid Taxonomy. OLD MYOCARDIAL INFARCT 12/11/2008 Overview: Modified by Acute [place] Protocol #5. [facility] right coronary bare metal stents S/P angioplasty with stent 09/07/2006 History of tobacco use documented as of this encounter (statuses as of 08/24/2023) Resolved Problems Problem Noted Date Diagnosed Date [...] for Patients with Cardiovascular Disease Project #: [id number] PI: Peyton Conn MD [phone] GENOMICS CARDIO RESEARCH OTHER*[id number] 01/15/2007 06/28/2016 Overview: Renamed Per Clinical Trials Billing Project. Study Title: Genomic Markers for Patients with Cardiovascular Disease Project #: [id number] PI: Peyton Conn MD [phone] LV (left ventricular) mural thrombus 10/30/2006 12/28/2017 Tobacco use disorder 09/07/2006 010 Acute inferior myocardial infarction 08/19/2006 12/11/2008 Overview: Modified by Acute [place] Protocol #5. [facility] right coronary bare metal stents EXAMINATION OF PARTICIPANT I N CLINICAL TRIAL - HORIZONS 08/19/2006 09/04/2009 Overview: Renamed Per Clinical Trials Billing Project. [facility] AMI clinical trial 263 Single blind trial comparing heparin and IIB/IIIA with bivalirudin, and Taxus vs bare metal stent. Patient Follow-up for 5 years Ladle Filler: Trent Verduzco [phone] [facility] Clinical Trial*[id number] 08/19/2006 09/08/2014 Overview: Renamed Per Clinical Trials Billing Project. [facility] AMI clinical trial 263 Single blind trial comparing heparin and IIB/IIIA with bivalirudin, and Taxus vs bare metal stent. Patient Follow-up for 5 years Ladle Filler: Trent Verduzco [phone] Menopause 08/29/2002 02/23/2017 LOC PRIM [id number] 05/29/200206/23 Dyslipidemia, goal to be determined 05/29/2002 05/07/2009 Overview: Per Lipid Taxonomy. 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 * Telephone Encounter - Henna Burns RN - 08/24/2023 10:05 AM EDT [facility] participant administrator Acute Call Date: 08/24/2023 Time: 10:05 AM Name: Radha Tong : 1945 Caller: Radha Relationship to pt- self Chief Complaint Patient presents with [facility]: Acute HPI: Radha Tong is a 78 year old female that is calling [facility] to report yeast infection under both breasts and is requesting Nystatin Powder to be prescribed. Nursing Assessment: Patient's chief complaint for this call: Integumentary The pt states that she has yeast under both of her breasts. Onset 3 weeks ago. Despite trying ointment and [place] powder it is not getting any better. She states that Nystatin powdershe knows will work. There are very large areas under both breasts and down the chest. The outside edges are so raw, not bleeding. She is using washcloths under the breasts. She states it does have a "yeast odor". Pain Has pain Pain level: not quantified Location: skin under both breasts Quality of Pain: sore from it being raw Does the pain radiate: No Baseline Assessment Able to performing ADLs at baseline (walking, daily tasks, etc.): Yes Chief Complaint is related to a chronic condition: Unknown Patient prescribed oxygen? No Patient has been ordered DME equipment (assistive devices, respiratory equipment, etc.): No Medication Reconciliation: (See medication list) Received flu shot this season: Yes Taking medication as ordered: Yes Medications ordered/taking to treat reason for call: Yes, PRN medication(s) [place] powder guzman and did not help; an ointment her daughter gave her to try did not help Heart failure symptoms: No COPD exacerbation symptoms: No Reinforcement Education: Keep the skin under the breasts clean and dry Keep cotton cloths under breasts to keep skin off of skin Monitor for worsening symptoms to report: fever, chills, increased redness, warmth, odor, bleeding,spreading of the yeast, bleeding or pus drainage Treatment/Plan: (need to report) Level of call: Non-Acute Recommended treatment plan: Clinical advice given over the phone Will send to Provider for Nystatin powder order per the pt's request F/U call scheduled Call back instructions provided to patient. Henna BONILLA, RN [facility] Intake Triage Coordinator [phone] documented in this encounter Plan of Treatment Upcoming Encounters Date Type Department Care Team (Late st Contact Info) Description 08/25/2023 10:45 AM EDT Scheduled Telephone [facility] at [address] [place] [address] Coordinator, [facility] [address] [facility] [place] [address] 08/29/2023 3:40 PM EDT Office Visit Neurology [facility] [address] [place] [address] Ashlie Swift MD [address] [place] [address] 09/07/2023 11:00 AM EDT Office Visit Otolaryngology [facility] [address] [facility] [place] [address] Laurie Herrmann PA-C [address] [facility] [place] [address] 09/20/2023 2:50 PM EDT Office Visit Vascular Surgery, [facility] [address] [facility] [place] [address] Albin Marr MD [address] [place] [address] 11/02/2023 1:40 PM EDT Office Visit Family Practice [facility] [address] [facility] [place] [address] Erica Marsh MD [address] [facility] [place] [address] Scheduled Procedures Name Priority Associated Diagnoses Date/Ti [...] 023, 02/21/2022, 07/23/2019 CKD PHOS USE SMARTSET 03751 03/02/202402/19, 10/07/2022, 02/21/2022, Additional history exists CKD HGB USE SMARTSET 51442 07/18/202407/18, 03/15/2023, 03/02/2023, Additional history exists O2 [...] the patient have Health Care Power of Health Assessment And Treatment Teacher? No Care Teams Indirect Sales Representative Relationship Specialty Start Date End Date Roman Ennis III, MD [address] [place] [address] PCP - General Family Medicine 06/28/18 documented as of this encounter
--- OUTSIDE RECORDS SUMMARY | 2023-10-18 15:33 | External Medical Summary | Summary of Care ---
Author Name Unknown Organization [facility] Address [address] [facility] [place] [address] Phone [phone] Care Team Providers Care Lactation Nurse Name Role Phone Loli NORWOOD MD, Roman Barraza Primary Care Provider [phone] Reason for Visit * Reason Onset Date Comments [facility]: Maintenance 08/26/2023 Encounter Details Date Type Department Care Team (Late st Contact Info) Description 08/26/2023 11:30 AM EDT Scheduled Telephone [facility], [facility] [address] [facility] [place] [address] [facility], Nurse [facility] [address] [facility] [place] [address] Allergies Active Allergy Reactions Criticality Noted Date Comments Isosorbide Mononitrate 12/24/2007 Severe headaches Nsaids 05/29/2002 Tramadol Hcl Nausea/vomiting Low 01/09/2008 UGI distress documented as of this encounter (statuses as of 08/26/2023) Medications Medication Sig Dispensed Refills Start Date [...] morning. 30 Tablet 6 08/09/2023 Active Nystatin 272662 UNIT/GM External Powder (Nystop) Apply topically to affected area 3 times a day. Apply to area under breasts 60 g 3 08/24/2023 Active documented as of this encounter (statuses as of 08/26/2023) Active Problems Problem Noted Date Diagnosed Date [...] current use of insulin 07/28/2023 Atherosclerosis of [place] co ronary artery without angina pectoris 07/28/2023 [...] cardiomyopathy 07/18/2018 Coronary artery disease invo lving [place] coronary artery of [place] heart without angina pectoris 05/08/2018 Anxiety state 05/08/2018 ADVANCE DIRECTIVE INFORMATION 03/23/2018 Overview: No, Advance Directive brochure offered , patient declined. Incomplete uterovaginal prolapse 09/29/2017 Cystocele, lateral 09/29/2017 Vaginal atrophy 09/29/2017 Hepatitis C antibody test positive 05/09/2017 Overview: HCV treated; SVR Confirmed 03/05/2018 Controlled substance agreement signed 02/23/2017 Biventricular implantable ca rdioverter-defibrillator in situ 08/07/2013 Last Assessment & Plan: Followed by [facility] cardiology History of colonic polyps 09/04/2012 Overview: 09/01/2012: adenoma, repeat in 3 years ICD-10 update of inactive term Dyslipidemia, goal LDL below 70 05/07/2009 Overview: Per Lipid Taxonomy. OLD MYOCARDIAL INFARCT 12/11/2008 Overview: Modified by Acute CT Protocol #5. [facility] right coronary bare metal stents S/P angioplasty with stent 09/07/2006 History of tobacco use documented as of this encounter (statuses as of 08/26/2023) Resolved Problems Problem Noted Date Diagnosed Date [...] for Patients with Cardiovascular Disease Project #: [id number] PI: Peyton Conn MD [phone] GENOMICS CARDIO RESEARCH OTHER*[id number] 01/15/2007 06/28/2016 Overview: Renamed Per Clinical Trials Billing Project. Study Title: Genomic Markers for Patients with Cardiovascular Disease Project #: [id number] PI: Peyton Conn MD [phone] LV (left ventricular) mural thrombus 10/30/2006 12/28/2017 Tobacco use disorder 09/07/2006 010 Acute inferior myocardial infarction 08/19/2006 12/11/2008 Overview: Modified by Acute CT Protocol #5. [facility] right coronary bare metal stents EXAMINATION OF PARTICIPANT I N CLINICAL TRIAL - HORIZONS 08/19/2006 09/04/2009 Overview: Renamed Per Clinical Trials Billing Project. [facility] AMI clinical trial 263 Single blind trial comparing heparin and IIB/IIIA with bivalirudin, and Taxus vs bare metal stent. Patient Follow-up for 5 years Hand Lens Polisher: Trent Verduzco [phone] [facility] Clinical Trial*[id number] 08/19/2006 09/08/2014 Overview: Renamed Per Clinical Trials Billing Project. [facility] AMI clinical trial 263 Single blind trial comparing heparin and IIB/IIIA with bivalirudin, and Taxus vs bare metal stent. Patient Follow-up for 5 years Hand Lens Polisher: Trent Verduzco [phone] Menopause 08/29/2002 02/23/2017 LOC PRIM [id number] 05/29/200206/23 Dyslipidemia, goal to be determined 05/29/2002 05/07/2009 Overview: Per Lipid Taxonomy. 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 Subprogram: Focused Care Management (3-9 months) Follow Up Call Type: Weekend Call 1506:PC to emergency contact M # Nadiya Spoke to HERNANDEZ Hearn. Patient identified by full name and date of . Acute issue requiring follow-up call: Other: yeast under breasts, did she receive nystatin ? Objective: 08/09/2023 2:43 PM 07/28/2023 8:59 AM [...] identified Medications: New medication(s) added: Nystatin powder TID Subjective: Condition Status: No change in symptoms Current Concerns: Just received nystatin powder yesterday DIL is aware to make sure patient washes/dries affected area before applying No new acute concerns Aware of upcoming appointments for August No GAH scheduled currently - sent to [facility] scheduling to help facilitate. Disposition: Issue resolved. All appropriate follow up scheduled. Pt to call [facility] at for any new onset symptoms, illness, questions, or concerns prior to next scheduled follow up with [facility] Lactation Nurse. Future Visits Scheduled: Future Appointments-next 60 days Date/Time Provider Specialty Dept Phone 08/29/2023 3:40 PM (Arrive by 3:25 PM) Ashlie Swift MD Neurology [phone] 09/07/2023 11:00 AM (Arrive by 10:45 AM) Laurie Herrmann PA-C Otolaryngology [phone] 09/20/2023 2:50 PM Albin Marr MD Vascular Surgery [phone] 11/02/2023 1:40 PM (Arrive by 1:25 PM) Erica Marsh MD Family Medicine [phone] Iesha Enriquez RN [facility] Pharmacy Technology Instructor/ [facility] Toll Free Number: documented in this encounter Plan of Treatment Upcoming Encounters Date Type Department Care Team (Late st Contact Info) Description 08/29/2023 3:40 PM EDT Office Visit Neurology [facility] [address] [place] [address] Ashlie Swift MD 200 [facility] [place] [address] 09/07/2023 11:00 AM EDT Office Visit Otolaryngology [facility] [address] [place] [address] Laurie Herrmann PA-C [address] [place] [address] 09/20/2023 2:50 PM EDT Office Visit Vascular Surgery, [facility] [address] [place] [address] Albin Marr MD [address] [place] [address] 11/02/2023 1:40 PM EDT Office Visit Family Practice [facility] [address] [facility] [place] [address] Erica Marsh MD [address] [facility] [place] [address] Scheduled Procedures Name Priority Associated Diagnoses Date/Ti [...] 023, 02/21/2022, 07/23/2019 CKD PHOS USE SMARTSET 98866 03/02/202402/19, 10/07/2022, 02/21/2022, Additional history exists CKD HGB USE SMARTSET 45136 07/18/202407/18, 03/15/2023, 03/02/2023, Additional history exists O2 [...] the patient have Health Care Power of Physiotherapy Aide? No Care Teams Lactation Nurse Relationship Specialty Start Date End Date Roman Ennis III, MD [address] [facility] [place] [address] PCP - General Family Medicine 06/28/18 documented as of this encounter
--- OUTSIDE RECORDS SUMMARY | 2023-10-18 15:34 | External Medical Summary | Summary of Care ---
Author Name Unknown Organization [facility] Address [address] [facility] [address] Phone [phone] Care Team Providers Care Yarrow Gatherer Name Role Phone Loli NORWOOD MD, John E Primary Care Provider [phone] Reason for Visit * Reason Onset Date Comments Med Request 08/09/2023 Encounter Details Date Type Department Care Team (Late st Contact Info) Description 08/09/2023 Telephone Family Practice [facility] [place] [place] [address] [facility] [place] [address] Roman Ennis III, MD [address] [facility] [place] [address] Med Request Allergies Active Allergy Reactions Criticality Noted Date Comments Isosorbide Mononitrate 12/24/2007 Severe headaches Nsaids 05/29/2002 Tramadol Hcl Nausea/vomiting Low 01/09/2008 UGI distress documented as of this encounter (statuses as of 08/09/2023) Medications Medication Sig Dispensed Refills Start Date [...] morning and 1 Tablet before bedtime. 0 4 Discontinue d(Refill) Lisinopril 10 MG Oral Tablet (Prinivil) Take 1 Tablet by mouth in the morning. 0 4 Discontinue d(Refill) Ferrous Sulfate 325 (65 Fe) MG Oral Tablet Delayed Release Take 1 Tablet by mouth in the morning and 1 Tablet before bedtime. 0 07/18/2023 4 Discontinue d(Refill) documented as of this encounter (statuses as of 08/09/2023) Active Problems Problem Noted Date Diagnosed Date [...] current use of insulin 07/28/2023 Atherosclerosis of [place] co ronary artery without angina pectoris 07/28/2023 [...] cardiomyopathy 07/18/2018 Coronary artery disease invo lving [place] coronary artery of [place] heart without angina pectoris 05/08/2018 Anxiety state [...] as of this encounter (statuses as of 08/09/2023) Resolved Problems Problem Noted Date Diagnosed Date [...] for Patients with Cardiovascular Disease Project #: [id number] PI: Peyton Conn MD [phone] GENOMICS CARDIO RESEARCH OTHER*[id number] 01/15/2007 06/28/2016 Overview: Renamed Per Clinical Trials Billing Project. Study Title: Genomic Markers for Patients with Cardiovascular Disease Project #: [id number] PI: Peyton Conn MD [phone] LV (left ventricular) mural thrombus 10/30/2006 12/28/2017 Tobacco use disorder 09/07/2006 010 Acute inferior myocardial infarction 08/19/2006 12/11/2008 Overview: Modified by Acute [place] Protocol #5. [facility] [place] right coronary bare metal stents EXAMINATION OF PARTICIPANT I N CLINICAL TRIAL - [facility] 08/19/2006 09/04/2009 Overview: Renamed Per Clinical Trials Billing Project. [facility] AMI clinical trial 263 Single blind trial comparing heparin and IIB/IIIA with bivalirudin, and Taxus vs bare metal stent. Patient Follow-up for 5 years Rig Mechanic: Trent Verduzco [phone] [facility] Clinical Trial*[id number] 08/19/2006 09/08/2014 Overview: Renamed Per Clinical Trials Billing Project. [facility] AMI clinical trial 263 Single blind trial comparing heparin and IIB/IIIA with bivalirudin, and Taxus vs bare metal stent. Patient Follow-up for 5 years Rig Mechanic: Trent Verduzco [phone] Menopause 08/29/2002 02/23/2017 LOC PRIM [id number] 05/29/200206/23 Dyslipidemia, goal to be determined 05/29/2002 05/07/2009 Overview: Per Lipid Taxonomy. 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 02/23/2017 documented as of this encounter (statuses as of 08/09/2023) Immunizations Name Administration Dates Next Due COVID-19 [...] Miscellaneous Notes * Telephone Encounter - Lisa Escobar, EDITA - 08/09/2023 10:22 AM EDT Pending Prescriptions: Disp Refills Ferrous Sulfate 325 (65 Fe) MG Oral Table*30 Tab*6 Sig: Take 1 Tablet by mouth in the morning and 1 Tablet before bedtime. 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 and stage 3b chronic kidney disease (HCC) I13.0, I50.42, N18.32 Chronic kidney disease, stage 3b (HCC) N18.32 Labs: Lab Results Component Value Date/Time CREATININE - [facility] 1.4 (H) 07/18/2023 09:59 AM CREATININE - [facility] 1.1 (H) 02/17/2020 01:00 PM CREATININE, RANDOM URINE - [facility] 85 03/02/2023 09:17 AM CREATININE, RANDOM URINE - [facility] 120 07/23/2019 04:48 PM CREATININE-OUTSIDE LAB 0.75 10/07/2022 12:00 AM Lab Results Component Value Date/Time POTASSIUM - [facility] 4.7 07/18/2023 09:59 AM POTASSIUM - [facility] 4.5 02/17/2020 01:00 PM POTASSIUM-OUTSIDE LAB 3.8 10/07/2022 12:00 AM Lab Results Component Value Date/Time TSH - [facility] 0.85 03/02/2023 09:17 AM TSH - [facility] 0.79 04/04/2017 11:34 AM [...] Results Component Value Date/Time ALT - [facility] 12 07/18/2023 09:59 AM ALT - [facility] 12 02/17/2020 01:00 PM ALT LIVER FIB PANEL 28 08/03/2017 09:12 AM Hemoglobin AIC Results: Lab Results Component Value Date/Time HEMOGLOBIN A1C - [facility] 5.8 (H) 03/02/2023 09:17 AM HEMOGLOBIN A1C - [facility] 6.4 (H) 01/15/2007 11:30 AM HEMOGLOBIN A1C - [facility] 6.2 (H) 08/19/2006 01:46 AM HEMOGLOBIN A1C - [facility] 5.9 05/29/2002 10:33 AM * Telephone Encounter - Luann Howe, data integration architect - 08/09/2023 9:49 AM EDT Pharmacy calling requesting the following medication below that is listed as "Historical". The following information was provided: Medication Name: Ferrous Sulfate 325 (65 Fe) MG Oral Tablet Delayed Release Strength: 325mg Directions: 1 tablet twice daily Preferred Quantity: 30ds Previous Prescriber: Dr. Freed Preferred Pharmacy: [facility], [address] [place] Please review and approve if appropriate. Thank you, Luann Howe Occup Therapist I Centralized Clinical Pharmacy Services (CCPS)(formerly Telepharmacy) 08/09/2023,9:49 AM documented in this encounter Plan of Treatment Upcoming Encounters Date Type Department Care Team (Late st Contact Info) Description 08/09/2023 2:30 PM EDT Office Visit Vascular Surgery, [facility] [address] [facility] [place] [address] Trent Stewart MD [address] [place] [address] 08/29/2023 3:40 PM EDT Office Visit Neurology [facility] [address] [facility] [place] [address] Ashlie Swift MD [address] [facility] [place] [address] 09/07/2023 11:00 AM EDT Office Visit Otolaryngology [facility] [address] [place] [address] Laurie Herrmann PA-C [address] [facility] [place] [address] 11/02/2023 1:40 PM EDT Office Visit Family Practice [facility] [address] [facility] [place] [address] Erica Marsh MD [address] [facility] [place] [address] Scheduled Procedures Name Priority Associated Diagnoses Date/Ti [...] 023, 02/21/2022, 07/23/2019 CKD PHOS USE SMARTSET 30909 03/02/202402/19, 10/07/2022, 02/21/2022, Additional history exists CKD HGB USE SMARTSET 67333 07/18/202407/18, 03/15/2023, 03/02/2023, Additional history exists O2 [...] the patient have Health Care Power of Spool Carrier? No Care Teams Yarrow Gatherer Relationship Specialty Start Date End Date Roman Ennis III, MD [address] [place] [address] PCP - General Family Medicine 06/28/18 documented as of this encounter
--- OUTSIDE RECORDS SUMMARY | 2023-10-18 15:34 | External Medical Summary | Summary of Care ---
Author Name Unknown Organization [facility] Address [address] [facility] [place] [address] Phone [phone] Care Team Providers Care Director Of Housing And Energy Services Name Role Phone Loli NORWOOD MD, Roman Barraza Primary Care Provider [phone] Reason for Visit * Reason Onset Date Comments [facility]: Acute 08/24/2023 Encounter Details Date Type Department Care Team (Late st Contact Info) Description 08/24/2023 Telephone [facility], [facility] [address] [place] [address] [facility], Nurse [address] [place] [id number] [facility]: Acute Allergies Active Allergy [...] Active Ondansetron HCl 4 MG Oral Tablet (Zofran)Indications:N ausea Take 1 Tablet by mouth every 8 hours as needed for Nausea. 20 Tablet 0 07/18/2023 Active Clopidogrel Bisulfate 75 MG Oral Tablet (Plavix) Take 1 Tablet by mouth in the morning. 30 Tablet 5 07/28/2023 Active oxyCODONE HCl 5 MG Oral Tablet (Oxy IR)Indications:Chroni c pain syndrome Take 1 Tablet by mouth [...] the morning. 30 Tablet 6 08/09/2023 Active documented as of this encounter (statuses [...] current use of insulin 07/28/2023 Atherosclerosis of [place] co ronary artery without angina pectoris 07/28/2023 [...] cardiomyopathy 07/18/2018 Coronary artery disease invo lving [place] coronary artery of [place] heart without angina pectoris 05/08/2018 Anxiety state 05/08/2018 ADVANCE DIRECTIVE INFORMATION 03/23/2018 Overview: No, Advance Directive brochure offered , patient declined. Incomplete uterovaginal prolapse 09/29/2017 Cystocele, lateral 09/29/2017 Vaginal atrophy 09/29/2017 Hepatitis C antibody test positive 05/09/2017 Overview: HCV treated; SVR Confirmed 03/05/2018 Controlled substance agreement signed 02/23/2017 Biventricular implantable ca rdioverter-defibrillator in situ 08/07/2013 Last Assessment & Plan: Followed by [facility] [place] cardi[place] History of colonic polyps 09/04/2012 Overview: 09/01/2012: adenoma, repeat in 3 years ICD-10 update of inactive term Dyslipidemia, goal LDL below 70 05/07/2009 Overview: Per Lipid Taxonomy. OLD MYOCARDIAL INFARCT 12/11/2008 Overview: Modified by Acute [place] Protocol #5. [facility] [...] for Patients with Cardiovascular Disease Project #: [id number] PI: Peyton Conn MD [phone] GENOMICS CARDIO RESEARCH OTHER*[id number] 01/15/2007 06/28/2016 Overview: Renamed Per Clinical Trials Billing Project. Study Title: Genomic Markers for Patients with Cardiovascular Disease Project #: [id number] PI: Peyton Conn MD [phone] LV (left ventricular) mural thrombus 10/30/2006 12/28/2017 Tobacco use disorder 09/07/2006 010 Acute inferior myocardial infarction 08/19/2006 12/11/2008 Overview: Modified by Acute [place] Protocol #5. [facility] [place] right coronary bare metal stents EXAMINATION OF PARTICIPANT I N CLINICAL TRIAL - [facility] 08/19/2006 09/04/2009 Overview: Renamed Per Clinical Trials Billing Project. [facility] AMI clinical trial 263 Single blind trial comparing heparin and IIB/IIIA with bivalirudin, and Taxus vs bare metal stent. Patient Follow-up for 5 years Accounting Bookkeeper: Trent Verduzco [phone] [facility] Clinical Trial*[id number] 08/19/2006 09/08/2014 Overview: Renamed Per Clinical Trials Billing Project. [facility] AMI clinical trial 263 Single blind trial comparing heparin and IIB/IIIA with bivalirudin, and Taxus vs bare metal stent. Patient Follow-up for 5 years Accounting Bookkeeper: Trent Verduzco [phone] Menopause 08/29/2002 02/23/2017 LOC PRIM [id number] 05/29/200206/23 Dyslipidemia, goal to be determined 05/29/2002 [...] encounter Miscellaneous Notes * Telephone Encounter - Henna Burns RN - 08/24/2023 10:05 AM EDT [facility] biological science technician fish Acute Call Date: 08/24/2023 Time: 10:05 AM Name: Radha Tong : 1945 Caller: Radha Relationship to pt- self Chief Complaint Patient presents with [facility]: Acute HPI: Radha Tong is a 78 year old female that is calling [facility] Intake to report yeast infection [...] instructions provided to patient. Henna BONILLA, RN [facility] Intake Triage Coordinator [phone] documented in this encounter Plan of Treatment Upcoming Encounters Date Type Department Care Team (Late st Contact Info) Description 08/25/2023 10:45 AM EDT Scheduled Telephone ising at [facility] [address] [place] [address] Coordinator, [facility] [address] [place] [address] 08/29/2023 3:40 PM EDT Office Visit Neurology [facility] [address] [facility] [place] [address] Ashlie Swift MD [address] [facility] [place] [address] 09/07/2023 11:00 AM EDT Office Visit Otolaryngology [facility] [address] [place] [address] Laurie Herrmann PA-C [address] [place] [address] 09/20/2023 2:50 PM EDT Office Visit Vascular Surgery, [facility] [address] [place] [address] Albin Marr MD [address] [place] [facility] [place] [address] 11/02/2023 1:40 PM EDT Office Visit Family Practice [facility] [address] [facility] [place] [address] Erica Marsh MD [address] [facility] [place] [address] Scheduled Procedures Name Priority Associated Diagnoses Date/Ti [...] 023, 02/21/2022, 07/23/2019 CKD PHOS USE SMARTSET 91376 03/02/202402/19, 10/07/2022, 02/21/2022, Additional history exists CKD HGB USE SMARTSET 76051 07/18/202407/18, 03/15/2023, 03/02/2023, Additional history exists O2 [...] the patient have Health Care Power of Digital Account Supervisor? No Care Teams Director Of Housing And Energy Services Relationship Specialty Start Date End Date Roman Ennis III, MD [address] [place] [address] PCP - General Family Medicine 06/28/18 documented as of this encounter
--- OUTSIDE RECORDS SUMMARY | 2023-10-18 15:34 | External Medical Summary | Summary of Care ---
Author Name Unknown Organization [facility] Address [address] [facility] [address] Phone [phone] Care Team Providers Care Station Cleaning Porter Name Role Phone Loli NORWOOD MD, John E Primary Care Provider [phone] Reason for Visit * Reason Onset Date Comments Med Request 08/09/2023 Encounter Details Date Type Department Care Team (Late st Contact Info) Description 08/09/2023 [facility] [place] [address] [facility] [place] [address] Roman Ennis III, MD [address] [facility] [place] [address] Med Request Allergies Active Allergy Reactions Criticality [...] TWICE DAILY 180 Tablet 3 08/07/2023 Active Lisinopril 10 MG Oral Tablet (Prinivil) Take 1 Tablet by mouth in the morning. 30 Tablet 6 08/09/2023 Active Lisinopril 10 MG Oral Tablet (Prinivil) Take 1 Tablet by mouth in the morning. 0 4 Discontinue d(Refill) documented as of this [...] current use of insulin 07/28/2023 Atherosclerosis of circle co ronary artery without angina pectoris 07/28/2023 [...] cardiomyopathy 07/18/2018 Coronary artery disease invo lving circle coronary artery of circle heart without angina pectoris 05/08/2018 Anxiety state 05/08/2018 ADVANCE DIRECTIVE INFORMATION 03/23/2018 Overview: No, Advance Directive brochure offered , patient declined. Incomplete uterovaginal prolapse 09/29/2017 Cystocele, lateral 09/29/2017 Vaginal atrophy 09/29/2017 Hepatitis C antibody test positive 05/09/2017 Overview: HCV treated; SVR Confirmed 03/05/2018 Controlled substance agreement signed 02/23/2017 Biventricular implantable ca rdioverter-defibrillator in situ 08/07/2013 Last Assessment & Plan: [place] [facility] [place] History of colonic polyps 09/04/2012 Overview: 09/01/2012: adenoma, repeat in 3 years ICD-10 update of inactive term Dyslipidemia, goal LDL below 70 05/07/2009 Overview: Per Lipid Taxonomy. OLD MYOCARDIAL INFARCT 12/11/2008 Overview: Modified by Acute [place] Protocol #5. [facility] [place] coronary bare metal stents [...] for Patients with Cardiovascular Disease Project #: [id number] PI: Peyton Conn MD [phone] GENOMICS CARDIO RESEARCH OTHER*[id number] 01/15/2007 06/28/2016 Overview: Renamed Per Clinical Trials Billing Project. Study Title: Genomic Markers for Patients with Cardiovascular Disease Project #: [id number] PI: Peyton Conn MD [phone] LV (left ventricular) mural thrombus 10/30/2006 12/28/2017 Tobacco use disorder 09/07/2006 010 Acute inferior myocardial infarction 08/19/2006 12/11/2008 Overview: Modified by Acute [place] Protocol #5. [facility] [place] coronary bare metal stents EXAMINATION OF PARTICIPANT I N CLINICAL TRIAL - [facility] 08/19/2006 09/04/2009 Overview: Renamed Per Clinical Trials Billing Project. [facility] AMI clinical trial 263 Single blind trial comparing heparin and IIB/IIIA with bivalirudin, and Taxus vs bare metal stent. Patient Follow-up for 5 years Rail Flaw Detector Operator: Trent Verduzco [phone] [facility] Clinical Trial*[id number] 08/19/2006 09/08/2014 Overview: Renamed Per Clinical Trials Billing Project. [facility] AMI clinical trial 263 Single blind trial comparing heparin and IIB/IIIA with bivalirudin, and Taxus vs bare metal stent. Patient Follow-up for 5 years Rail Flaw Detector Operator: Trent Verduzco [phone] Menopause 08/29/2002 02/23/2017 LOC PRIM [id number] 05/29/200206/23 Dyslipidemia, goal to be determined 05/29/2002 [...] encounter Miscellaneous Notes * Telephone Encounter - Shawn Lisa Elise, EDITA - 08/09/2023 10:25 AM EDT Pending Prescriptions: Disp Refills Lisinopril 10 MG Oral Tablet (Prinivil) 30 Tab*6 Sig: Take 1 Tablet by mouth in the morning. Last Visit: 07/28/2023 (in office), 08/24/2020 (telemedicine) Next Visit: 11/02/2023 Last date the medication was ordered: Historical. Patient Active Problem List Diagnosis Code ADVANCE [...] Vaginal atrophy N95.2 Coronary artery disease involving circle coronary artery of circle heart without angina pectoris I25.10 Anxiety state F41.1 History of ischemic cardiomyopathy Z86.79 COPD, group C, by GOLD 2017 classification ([facility]) J44.9 Essential hypertension with goal blood pressure less than 140/90 I10 Carpal tunnel syndrome, bilateral G56.03 Trigger ring finger of right hand M65.341 Trigger ring finger of left hand M65.342 History of 2019 novel coronavirus disease (COVID-19) Z86.16 Abdominal aortic aneurysm (AAA) without rupture (HCC) I71.40 Type 2 diabetes mellitus with hemoglobin A1c goal of less than 8.0% ([facility]) E11.9 Cigarette smoker F17.210 Infrarenal abdominal aortic aneurysm (AAA) without rupture ([facility]) I71.43 Type 2 diabetes mellitus with diabetic [...] of insulin (HCC) E11.22, N18.32 Atherosclerosis of circle coronary artery without angina pectoris I25.10 Chronic [...] 10:33 AM * Telephone Encounter - Luann Howe sisal picker - 08/09/2023 9:43 AM EDT Pharmacy calling requesting the following medication below that is listed as "Historical". The following information was provided: Medication Name: Lisinopril 10 MG Oral Tablet (Prinivil) Strength: 10mg Directions: 1 tablet in morning Preferred Quantity: 30ds Previous Prescriber: Dr. Freed Preferred Pharmacy: [facility], [address] [place] Please review and approve if appropriate. Thank you, Luann Howe Electronics Maintenance Technician I Centralized Clinical Pharmacy Services (CCPS)(formerly Telepharmacy) 08/09/2023,9:43 AM documented in this encounter Plan of Treatment Upcoming Encounters Date Type Department Care Team (Late st Contact Info) Description 08/09/2023 2:30 PM EDT Office Visit Vascular Surgery, [facility] [address] [place] [address] Trent Stewart MD [address] [place] [address] 08/29/2023 3:40 PM EDT Office Visit Neurology [facility] [address] [facility] [place] [address] Ashlie Swift MD [address] [facility] [place] [address] 09/07/2023 11:00 AM EDT Office Visit [facility] [place] [address] Laurie Herrmann PA-C 132 [facility] [place] [address] 11/02/2023 1:40 PM EDT Office Visit Family Practice [facility] [address] [place] [address] Erica Marsh MD [address] [facility] [place] [address] Scheduled Procedures Name Priority Associated Diagnoses Date/Ti [...] 023, 02/21/2022, 07/23/2019 CKD PHOS USE SMARTSET 21798 03/02/202402/19, 10/07/2022, 02/21/2022, Additional history exists CKD HGB USE SMARTSET 36551 07/18/202407/18, 03/15/2023, 03/02/2023, Additional history exists O2 [...] patient have Health Care Power of Supervisor Maintenance? No Care Teams Station Cleaning Porter Relationship Specialty Start Date End Date Roman Ennis III, MD [address] [place] [address] PCP - General Family Medicine 06/28/18 documented as of this encounter
--- OUTSIDE RECORDS SUMMARY | 2023-10-18 15:34 | External Medical Summary | Summary of Care ---
Author Name Unknown Organization [facility] Address [address] [facility] [place] [address] Phone [phone] Care Team Providers Care Wood Mechanist Name Role Phone Loli NORWOOD MD, Roman Barraza Primary Care Provider [phone] Encounter Details Date Type Department Care Team (Late st Contact Info) Description 08/17/2023 Population Health External Data Unspecified Department Allergies Active Allergy Reactions Criticality Noted Date Comments Isosorbide Mononitrate 12/24/2007 Severe headaches Nsaids 05/29/2002 Tramadol Hcl Nausea/vomiting Low 01/09/2008 UGI distress documented as of this encounter (statuses as of 08/22/2023) Medications Medication Sig Dispensed Refills Start Date [...] as of this encounter (statuses as of 08/22/2023) Active Problems Problem Noted Date Diagnosed Date [...] current use of insulin 07/28/2023 Atherosclerosis of [place] co ronary artery without angina pectoris 07/28/2023 [...] cardiomyopathy 07/18/2018 Coronary artery disease invo lving upper [place] coronary artery of [place] heart without angina pectoris 05/08/2018 Anxiety state 05/08/2018 ADVANCE DIRECTIVE INFORMATION 03/23/2018 Overview: No, Advance Directive brochure offered , patient declined. Incomplete uterovaginal prolapse 09/29/2017 Cystocele, lateral 09/29/2017 Vaginal atrophy 09/29/2017 Hepatitis C antibody test positive 05/09/2017 Overview: HCV treated; SVR Confirmed 03/05/2018 Controlled substance agreement signed 02/23/2017 Biventricular implantable ca rdioverter-defibrillator in situ 08/07/2013 Last Assessment & Plan: Followed by [facility] cardiology History of colonic polyps 09/04/2012 Overview: 09/01/2012: adenoma, repeat in 3 years ICD-10 update of inactive term Dyslipidemia, goal LDL below 70 05/07/2009 Overview: Per Lipid Taxonomy. OLD MYOCARDIAL INFARCT 12/11/2008 Overview: Modified by Acute [place] Protocol #5. [facility] right coronary bare metal stents S/P angioplasty with stent 09/07/2006 History of tobacco use documented as of this encounter (statuses as of 08/22/2023) Resolved Problems Problem Noted Date Diagnosed Date [...] for Patients with Cardiovascular Disease Project #: [id number] PI: Peyton Conn MD [phone] GENOMICS CARDIO RESEARCH OTHER*[id number] 01/15/2007 06/28/2016 Overview: Renamed Per Clinical Trials Billing Project. Study Title: Genomic Markers for Patients with Cardiovascular Disease Project #: [id number] PI: Peyton Conn MD [phone] LV (left ventricular) mural thrombus 10/30/2006 12/28/2017 Tobacco use disorder 09/07/2006 010 Acute inferior myocardial infarction 08/19/2006 12/11/2008 Overview: Modified by Acute [place] Protocol #5. [facility] right coronary bare metal stents EXAMINATION OF PARTICIPANT I N CLINICAL TRIAL - HORIZONS 08/19/2006 09/04/2009 Overview: Renamed Per Clinical Trials Billing Project. [facility] AMI clinical trial 263 Single blind trial comparing heparin and IIB/IIIA with bivalirudin, and Taxus vs bare metal stent. Patient Follow-up for 5 years Plc Technician: Trent Verduzco [phone] [facility] Clinical Trial*[id number] 08/19/2006 09/08/2014 Overview: Renamed Per Clinical Trials Billing Project. [facility] AMI clinical trial 263 Single blind trial comparing heparin and IIB/IIIA with bivalirudin, and Taxus vs bare metal stent. Patient Follow-up for 5 years Plc Technician: Trent Verduzco [phone] Menopause 08/29/2002 02/23/2017 LOC PRIM [id number] 05/29/200206/23 Dyslipidemia, goal to be determined 05/29/2002 05/07/2009 Overview: Per Lipid Taxonomy. 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 02/23/2017 documented as of this encounter (statuses as of 08/22/2023) Immunizations Name Administration Dates Next Due COVID-19 [...] Care Team (Late st Contact Info) Description 08/23/2023 3:30 PM EDT Imaging Vascular Lab, [facility] 2nd Floor, [place] [address] [place] [address] 08/29/2023 3:40 PM EDT Office Visit Neurology [facility] [address] [facility] [place] [address] Ashlie Swift MD [address] [facility] [place] [address] 09/07/2023 11:00 AM EDT Office Visit Otolaryngology [facility] [address] [place] [address] Laurie Herrmann PA-C [address] [place] [address] 09/20/2023 2:50 PM EDT Office Visit Vascular Surgery, [facility] [address] [place] [address] Albin Marr MD [address], [place] [id number] 11/02/2023 1:40 PM EDT Office Visit Family Practice [facility] [address] [facility] [place] [address] Erica Marsh MD [address] [place] [address] Scheduled Procedures Name Priority Associated Diagnoses Date/Ti [...] 023, 02/21/2022, 07/23/2019 CKD PHOS USE SMARTSET 78981 03/02/202402/19, 10/07/2022, 02/21/2022, Additional history exists CKD HGB USE SMARTSET 36811 07/18/202407/18, 03/15/2023, 03/02/2023, Additional history exists O2 [...] the patient have Health Care Power of Machinery Dismantler? No Care Teams Wood Mechanist Relationship Specialty Start Date End Date Randall ENMA, Roman Barraza MD [address] [facility] [place] [place] [address] PCP - General Family Medicine 06/28/18 documented as of this encounter
--- OUTSIDE RECORDS SUMMARY | 2023-10-18 15:34 | External Medical Summary | Summary of Care ---
Author Name Unknown Organization [facility] Address [address] [facility] [place] [address] Phone [phone] Care Team Providers Care Identification And Records Commander Name Role Phone Loli NORWOOD MD, Roman Barraza Primary Care Provider [phone] Reason for Visit * Reason Onset Date Comments Hospital Follow-Up Hospital Follow-Up 07/28/2023 Encounter Details Date Type Department Care Team (Latest Contact Info) Description 07/28/2023 9:00 AM EST Office Visit [facility] [place] [address] [facility] [place] [address] Erica Marsh MD [address] [facility] [place] [address] Hospital discharge follow-up*; Symptomatic anemia; Tubular adenoma of colon; Acute on chronic respiratory failure with hypoxia (HCC); COPD, group C, by GOLD 2017 classification (HCC); Infrarenal abdominal aortic aneurysm (AAA) without rupture (HCC); Acute on chronic heart failure with preserved ejection fraction (HFpEF) (HCC); Ischemic cardiomyopathy; Paroxysmal atrial fibrillation (HCC); History of CVA (cerebrovascular accident); Type 2 diabetes mellitus with stage 3b chronic kidney disease, without long-term current use of insulin (HCC); Seizure disorder (HCC) Allergies Active Allergy Reactions Criticality Noted Date Comments Isosorbide Mononitrate 12/24/2007 Severe headaches Nsaids 05/29/2002 Tramadol Hcl Nausea/vomiting Low 01/09/2008 UGI distress documented as of this encounter (statuses as of 08/18/2023) Medications Medication Sig Dispensed Refills Start Date End Date Status Ventolin HFA 108 (90 Base) MCG/ACT Inhalation Aerosol Solution Inhale 2 Puffs by mouth every 4 hours as needed for Wheezing or Dyspnea. 54 g 1 1 Active Cyanocobalamin 1000 MCG Oral Tablet (Cyanocobalamin) Take by mouth 1 Tablet in the morning. 100 Tablet 5 2 Active Nitroglycerin 0.4 MG Sublingual Tablet Sublingual (Nitrostat)Indicati ons:ASCVD (arteriosclerotic cardiovascular disease),Chest pain, unspecified type DISSOLVE ONE TABLET UNDER THE TONGUE NEEDED FOR CHEST pain, maximum THREE doses 25 Tablet 5 3 Active Pantoprazole Sodium 40 [...] the morning. 90 Tablet 5 3 Active Furosemide 40 MG Oral Tablet (Lasix) Take 1 Tablet by mouth daily AND 0.5 Tablets daily at noon. 135 Tablet 3 3 Active Anoro Ellipta 62.5-25 MCG/ACT Inhalation Aerosol Powder Breath Activated (umeclidinium-vilan terol) INHALE ONE PUFF EVERY DAY 180 Blister Dosing Unit 1 3 Active Gabapentin 300 MG Oral Capsule (Neurontin)Indicati ons:Hip pain, left Take one tablet by mouth in the morning and at noon and two tablets by mouth before bed. 120 Capsule 11 3 Active Ondansetron HCl 4 MG Oral Tablet (Zofran)Indications :Nausea Take 1 Tablet by mouth every 8 hours as needed for Nausea. 20 Tablet 0 4 Active Clopidogrel Bisulfate 75 MG Oral Tablet (Plavix) Take 1 Tablet by mouth in the morning. 30 Tablet 5 4 Active Apixaban 5 MG Oral Tablet (Eliquis) Take 1 Tablet by mouth 2 times a day. 60 Tablet 3 3 08/07/19 24 Discontinued Clopidogrel Bisulfate 75 MG Oral Tablet (Plavix) Take 1 Tablet by mouth in the morning. 30 Tablet 5 3 07/28/19 24 Discontinued(Ref ill) Metoprolol Succinate ER 50 MG Oral Tablet Extended Release 24 Hour (toPROL XL) Take 1 Tablet by mouth in the morning and 1 Tablet before bedtime. 0 08/09/19 24 Discontinued(Ref ill) Lisinopril 10 MG Oral Tablet (Prinivil) Take 1 Tablet by mouth in the morning. 0 08/09/19 24 Discontinued(Ref ill) oxyCODONE HCl 5 MG Oral Tablet (Oxy IR)Indications:Botany Technician fernando pain syndrome Take 1 Tablet by mouth every 6 hours as needed (pain). 100 Tablet 0 4 08/03/19 24 Discontinued(Ref ill) Ferrous Sulfate 325 (65 Fe) MG Oral Tablet Delayed Release Take 1 Tablet by mouth in the morning and 1 Tablet before bedtime. 0 4 08/09/19 24 Discontinued(Ref ill) documented as of this encounter (statuses as of 08/18/2023) Active Problems Problem Noted Date Diagnosed Date [...] current use of insulin 07/28/2023 Atherosclerosis of [place] co ronary artery without angina pectoris 07/28/2023 [...] cardiomyopathy 07/18/2018 Coronary artery disease invo lving [place] coronary [...] 08/07/2013 Last Assessment & Plan: Followed by [facility] cardiology History of colonic polyps 09/04/2012 Overview: 09/01/2012: adenoma, repeat in 3 years ICD-10 update of inactive term Dyslipidemia, goal LDL below 70 05/07/2009 Overview: Per Lipid Taxonomy. OLD MYOCARDIAL INFARCT 12/11/2008 Overview: Modified by Acute [place] Protocol #5. [facility] right coronary bare metal stents S/P angioplasty with stent 09/07/2006 History of tobacco use documented as of this encounter (statuses as of 08/18/2023) Resolved Problems Problem Noted Date Diagnosed Date [...] for Patients with Cardiovascular Disease Project #: [id number] PI: Peyton Conn MD [phone] GENOMICS CARDIO RESEARCH OTHER*[id number] 01/15/2007 06/28/2016 Overview: Renamed Per Clinical Trials Billing Project. Study Title: Genomic Markers for Patients with Cardiovascular Disease Project #: [id number] PI: Peyton Conn MD [phone] LV (left ventricular) mural thrombus 10/30/2006 12/28/2017 Tobacco use disorder 09/07/2006 010 Acute inferior myocardial infarction 08/19/2006 12/11/2008 Overview: Modified by Acute [place] Protocol #5. [facility] right coronary bare metal stents EXAMINATION OF PARTICIPANT I N CLINICAL TRIAL - HORIZONS 08/19/2006 09/04/2009 Overview: Renamed Per Clinical Trials Billing Project. [facility] AMI clinical trial 263 Single blind trial comparing heparin and IIB/IIIA with bivalirudin, and Taxus vs bare metal stent. Patient Follow-up for 5 years Human Geography Instructor: Trent Verduzco [phone] [facility] Clinical Trial*[id number] 08/19/2006 09/08/2014 Overview: Renamed Per Clinical Trials Billing Project. [facility] AMI clinical trial 2004- 8708 Single blind trial comparing heparin and IIB/IIIA with bivalirudin, and Taxus vs bare metal stent. Patient Follow-up for 5 years Human Geography Instructor: Trent GeovannySarah SteeleVerduzco [phone] Menopause 08/29/2002 02/23/2017 LOC PRIM [id number] 05/29/200206/23 Dyslipidemia, goal to be determined 05/29/2002 05/07/2009 Overview: Per Lipid Taxonomy. 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 02/23/2017 documented as of this encounter (statuses as of 08/18/2023) Immunizations Name Administration Dates Next Due COVID-19 [...] Reading Time Taken Comments Blood Pressure 104/64 07/28/2023 8:59 AM EST Pulse 53 07/28/2023 8:59 AM EST Temperature 36.7 C (98.1 F) 07/28/2023 8:59 AM ES T Respiratory Rate 16 07/28/2023 8:59 AM EST Oxygen Saturation 94% 07/28/2023 8:59 AM EST Inhaled Oxygen Concentration - - Weight 72.2 kg (159 lb 1.9 oz) 07/28/2023 8:59 A M EST Height 157.4 cm (5' 1.97") 07/28/2023 8:59 AM ES T Body Mass Index 29.13 07/28/2023 8:59 AM EST documented in this encounter Progress Notes * Erica Marsh MD - 07/28/2023 8:59 AM EST Subjective Chief Complaint Patient presents with Hospital Follow-Up Hospital Follow-Up HPI: Radha Tong is a 78 year old female. The following issues were addressed today: Date of admission: 06/28/23 Date of discharge: 07/04/23 Hospital course: Patient presented to [facility] ER with c/o generalized weakness for 1 week. Fatigue andlightheadedness after walking just a few steps. She was admitted for symptomatic anemia (Hgb 10) and suspected occult GI bleed. CTAP showed diverticulosis without diverticulitis. She received 2 unitsPRBCs and IV Venofer x3. GI was consulted and she underwent EGD and colonoscopy. Normal esophagus and stomach, biopsies taken. One 6mm tubular adenoma removed from descending colon, internal hemorrhoids, otherwise normal. Started on PPI. Plavix and Eliquis resumed prior to discharge. Tests/studies pending at time of discharge: None Home/outpatient services ordered: None Course since hospitalization: Patient reports she is feeling much better. She denies any melena or hematochezia. She is unsure about follow-up with GI; per discharge paperwork, she is to see Dr. Gonzalez in 4-6 weeks and follow-up with school health aide Dr. Marks in 3-4 weeks. She did receive IV Lasix while inpatient and was put on supplemental O2. Has to use at home but she does not wear it. Review of Systems: See HPI Objective BP 104/64 | Pulse 53 | Temp 36.7 C (98.1 F) (Tympanic) | Resp 16 | Ht 1.574 m (5' 1.97") | Wt 72.2 kg (159 lb 1.9 oz) | SpO2 94% | BMI 29.13 kg/m | BSA 1.78 m General: Well-appearing, no acute distress Cardiovascular: Regular rate and rhythm, no murmur Respiratory: Good respiratory effort, decreased air movement, lung sounds clear Abdomen: Soft, non-distended, non-tender, normoactive bowel sounds Extremities: Mild bilateral LE edema Skin: Warm and dry Neurological: Alert and oriented, no focal deficits noted Psychiatric: Appropriate mood and affect Assessment & Plan 1. Hospital discharge follow-up - DISCH MED RECON CUR MED LIS 2. Symptomatic anemia Recheck CBC today. Patient's fatigue and VALLEJO improved. - CBC WITH WBC DIFFERENTIAL; Future 3. Tubular adenoma of colon Follow-up with GI in 4-6 weeks. 4. Acute on chronic respiratory failure with hypoxia ([facility]) 5. COPD, group C, by GOLD 2017 classification ([facility]) Contributing to chronic shortness of breath. No wheezing on exam today. Encouraged to wear supplement O2 at home. Continue current inhalers. 6. Infrarenal abdominal aortic aneurysm (AAA) without rupture ([facility]) Stable. 7. Acute on chronic heart failure with preserved ejection fraction (HFpEF) ([facility]) 8. Ischemic cardiomyopathy S/p IV Lasix while inpatient. TTE completed, shows EF 60-65%, hypokinetic inferior wall. Continue home diuretic regimen. Follow-up with cardiology. 9. Paroxysmal atrial fibrillation ([facility]) Stable. Metoprolol increased to 50mg BID while inpatient. Continue Eliquis. 10. History of CVA (cerebrovascular accident) Stable. 11. Type 2 diabetes mellitus with stage 3b chronic kidney disease, without long- term current use ofinsulin ([facility]) Stable. Continue current medication(s). 12. Seizure disorder ([facility]) Stable. Follow Up: Return in about 3 months (around 10/28/2023) for routine follow-up. This note was electronically signed by Erica Marsh MD documented in this encounter Nursing Notes * Lisa Escobar LPN - 07/28/2023 8:59 AM EST Patient presents today for a hospital follow up. She denies any concerns. documented in this encounter Plan of Treatment Upcoming Encounters Date Type Department Care Team (Late st Contact Info) Description 08/23/2023 3:30 PM EDT Imaging Vascular Lab, [facility] [address] [facility] [place] [address] [facility] [place] [address] 08/29/2023 3:40 PM EDT Office Visit [facility] [address] [place] [address] Ashlie Swift MD [address] [facility] [address] 09/07/2023 11:00 AM EDT Office Visit Otolaryngology [facility] [address] [facility] [place] [address] Laurie Herrmann PA-C [address] [place] [address] 09/20/2023 2:50 PM EDT Office Visit Vascular Surgery, [facility] [address] [place] [address] Albin Marr MD [address] [place] [address] 11/02/2023 1:40 PM EDT Office Visit Family Practice [facility] [address] [facility] [address] Erica Marsh MD [address] [facility] [place] [address] Scheduled Orders Name Type Priority Associated Diagnoses Orde r Schedule CBC WITH WBC DIFFERENTIAL Lab Routine Symptomatic anemia Expected: 08/28/2023 (Approximate), Expires: 07/27/2024 Scheduled Procedures Name Priority Associated Diagnoses Date/Ti [...] 023, 02/21/2022, 07/23/2019 CKD PHOS USE SMARTSET 82824 03/02/202402/19, 10/07/2022, 02/21/2022, Additional history exists CKD HGB USE SMARTSET 23648 07/18/202407/18, 03/15/2023, 03/02/2023, Additional history exists O2 [...] Hospital discharge follow-up- Primary Other follow-up examination Symptomatic anemia Tubular adenoma of colon Benign neoplasm of colon Acute on chronic respiratory failure with hypoxia (HCC) COPD, group C, by GOLD 2017 classification (HCC) Infrarenal abdominal aortic aneurysm (AAA) without rupture (HCC) Acute on chronic heart failure with preserved ejection fraction (HFpEF) (HCC) Ischemic cardiomyopathy Other specified forms of chronic ischemic heart disease Paroxysmal atrial fibrillation (HCC) Atrial fibrillation History of CVA (cerebrovascular accident) Transient ischemic attack (TIA), and cerebral infarction without residual deficits Type 2 diabetes mellitus with stage 3b chronic kidney disease, without long-term current use of insulin (HCC) Seizure disorder (HCC) Unspecified epilepsy without mention of intractable epilepsy documented in this encounter Advance Directives Latest [...] the patient have Health Care Power of Poem Writer? No Care Teams Identification And Records Commander Relationship Specialty Start Date End Date Roman Ennis III, MD [address] [place] [address] PCP - General Family Medicine 06/28/18 documented as of this encounter
--- OUTSIDE RECORDS SUMMARY | 2023-10-18 15:34 | External Medical Summary | Summary of Care ---
Author Name Unknown Organization [facility] Address [address] [place] [address] Phone [phone] Care Team Providers Care Director Presales Name Role Phone Loli NORWOOD MD, Roman Barraza Primary Care Provider [phone] Reason for Visit * Reason Comments Follow Up Encounter Details Date Type Department Care Team (Late st Contact Info) Description 08/09/2023 2:30 PM EDT Office Visit Vascular Surgery, [facility] [address] [facility] [place] [address] Trent Stewart MD [address] [place] [address] Infrarenal abdominal aortic aneurysm (AAA) without rupture (HCC)*; PVD (peripheral vascular disease) with claudication (HCC) Allergies Active Allergy Reactions Criticality Noted [...] current use of insulin 07/28/2023 Atherosclerosis of lummi co ronary artery without angina pectoris 07/28/2023 [...] cardiomyopathy 07/18/2018 Coronary artery disease invo lving lummi coronary artery of lummi heart without angina pectoris 05/08/2018 Anxiety state 05/08/2018 ADVANCE DIRECTIVE INFORMATION 03/23/2018 Overview: No, Advance Directive brochure offered , patient declined. Incomplete uterovaginal prolapse 09/29/2017 Cystocele, lateral 09/29/2017 Vaginal atrophy 09/29/2017 Hepatitis C antibody test positive 05/09/2017 Overview: HCV treated; SVR Confirmed 03/05/2018 Controlled substance agreement signed 02/23/2017 Biventricular implantable ca rdioverter-defibrillator in situ 08/07/2013 Last Assessment & Plan: Followed by [facility] [place] History of colonic polyps 09/04/2012 Overview: 09/01/2012: adenoma, repeat in 3 years ICD-10 update of inactive term Dyslipidemia, goal LDL below 70 05/07/2009 Overview: Per Lipid Taxonomy. OLD MYOCARDIAL INFARCT 12/11/2008 Overview: Modified by Acute SD Protocol #5. [facility] [...] for Patients with Cardiovascular Disease Project #: [id number] PI: Peyton Conn MD [phone] GENOMICS CARDIO RESEARCH OTHER*[id number] 01/15/2007 06/28/2016 Overview: Renamed Per Clinical Trials Billing Project. Study Title: Genomic Markers for Patients with Cardiovascular Disease Project #: [id number] PI: Peyton Conn MD [phone] LV (left ventricular) mural thrombus 10/30/2006 12/28/2017 Tobacco use disorder 09/07/2006 010 Acute inferior myocardial infarction 08/19/2006 12/11/2008 Overview: Modified by Acute SD Protocol #5. [facility] right coronary bare metal stents EXAMINATION OF PARTICIPANT I N CLINICAL TRIAL - [facility] 08/19/2006 09/04/2009 Overview: Renamed Per Clinical Trials Billing Project. [facility] AMI clinical trial 263 Single blind trial comparing heparin and IIB/IIIA with bivalirudin, and Taxus vs bare metal stent. Patient Follow-up for 5 years Stem Cutter: Trent Verduzco [phone] [facility] Clinical Trial*[id number] 08/19/2006 09/08/2014 Overview: Renamed Per Clinical Trials Billing Project. [facility] AMI clinical trial 263 Single blind trial comparing heparin and IIB/IIIA with bivalirudin, and Taxus vs bare metal stent. Patient Follow-up for 5 years Stem Cutter: Trent Verduzco [phone] Menopause 08/29/2002 02/23/2017 LOC PRIM [id number] 05/29/200206/23 Dyslipidemia, goal to be determined 05/29/2002 [...] 20 Q uit: 06/28/2023 Smokeless Tobacco: Never Tobacco Cessation:Counseling Given: No Alcohol Use Standard Drinks/Week Comments No 0 [...] Sign Reading Time Taken Comments Blood Pressure 98/62 08/09/2023 2:43 PM EDT Pulse 56 08/09/2023 2:43 PM EDT Temperature 36.4 C (97.5 F) 08/09/2023 2:43 PM ED T Respiratory Rate - - Oxygen Saturation - - Inhaled Oxygen Concentration - - Weight 72.5 kg (159 lb 14.4 oz) 08/09/2023 2:43 PM EDT Height - - Body Mass Index 29.27 07/28/2023 8:59 AM EST documented in this encounter Progress Notes * Forest Zarate PA-C - 08/09/2023 2:30 PM EDT 08/09/23 Radha Tong is a 78 year old female. Patient being seen in consultation at the request of Roman Ennis III, MD Chief Complaint: F/U for AAA HPI: Patient is a smoker who incidentaly noted to have a 2.8 cm infrarenal aorta with notation of extensive atherosclerotic disease s well on CT scan of 03/19/2020 completed at [facility]. US aorta on 06/03/2020 suggesting a 3 cm AAA. Also nooted to have chronic thrombus to R PTV on 11/24/2014 [facility] venous duplex. ABDOMINAL AORTIC ANEURYSM: Patient denies any symptoms related to AAA. Patient's chronic low back pain is unchanged. Patient denies new abdominal pain, flank pain and back pain. 06/22/2021 Size of aneurysm is 3.1 cm as detected by ultrasound. 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 Breakthrough seizure ([facility]) G40.919 Hip pain, left M25.552 Food insecurity [...] seizure (HCC) R56.9 Viral hepatitis C B19.20 Stage 3 chronic kidney disease (HCC) N18.30 Type 2 diabetes mellitus with stage 3b chronic kidney disease, without long-term current use of insulin (HCC) E11.22, N18.32 Atherosclerosis of lummi coronary artery without angina pectoris I25.10 Past Medical History: Diagnosis Date Acute inferior myocardial infarction (HCC) 08/19/2006 [facility] right coronary bare metal stents Automatic implantable cardiac defibrillator in situ 11/24/2008 [facility], Dr Bhavani Loya EF 20-25% COMMON MIGRAINE [...] right coronary artery 3 bare metal stents, [facility] CARPAL TUNNEL SURGERY Bilateral 02/20/2020 NEUROPLASTY MEDIAN NERVE AT CARPAL TUNNEL performed by Lore Richey DO at OR [facility] COLONOSCOPY, DIAGNOSTIC (RECTUM) N/A 07/03/2023 hemorrhoids/biopsies show adenomatous polyps/recall 5 years/Colonoscopy/[place] EGD, FLEXIBLE, DIAGNOSTIC N/A 07/03/2023 biopsies normal/EGD/[place] INSERT PULSE GENERATOR, EXISTING SINGLE LEAD 08/06/2013 NEW ICD GENERATOR ONLY performed by Tylor Loya MD at [facility] LAP;W/HYSTERECTOMY 02/04/2020 LEFT VENTRICULAR PACING ELECTRODE, ADD-ON 11/24/2008 CS LEAD PLACEMENT WITH INITIAL DEVICE performed by TYLOR LOYA at [facility] MAMMOGRAM - BILATERAL 07/17/2002 Birad Code 2 PACEMAKER-DEFIBRILLATOR ELECTRODE INSERT, SINGLE 08/09/2013 REPLACE LEAD (1 LEAD) performed by Monik Arnold IV, MD at [facility] REMOVE CATARACT, INSERT LENS PROSTH Right REMOVE GALLBLADDER 1990s Cholecystectomy, [facility] TENDON SHEATH INCISION, FINGER Bilateral 02/20/2020 TRIGGER FINGER RELEASE performed by Lore Richey DO at OR [facility] VAGINAL DELIVERY ONLY times 5 Social History Socioeconomic History Marital status: Spouse name: Maurice Number of children: 5 Years of education: 12 Highest education level: Not on file Occupational History Occupation: disabled since 08/18/06, SSI Employer: [employer] Tobacco Use Smoking status: Every Day Current packs/day: 0.25 Average packs/day: 0.3 packs/day for 20.0 years (5.0 ttl pk-yrs) Types: Cigarettes Smokeless tobacco: Never Tobacco comments: [...] OF SYSTEMS: Cardiovascular: Reports CAD with h/o SD s/p PCI/Stenting. ICD placement as well. Currently [...] pedal edema. No clubbing. Neurologic Examination: nonfocal. Good right femoral and pop pulse, no other palp pulses in either leg DIAGNOSTIC STUDIES: 08/01/23 Abd Aortic Duplex: 3.3 cm AAA, RCIA 1.1 cm, LCIA 0.8 cm The above diagnostic images were directly visualized and independently interpreted by me on 08/09/2023 with results as above 06/30/22 Abd Aortic Duplex: 3.0 cm AAA 06/30/22 BLE Art Duplex: No fem or pop aneurysms 06/30/22 Carotid Duplex: MAXINE 75/25, LICA 69/23, ante verts 06/22/2021; Location of Study: [facility]; Modality: duplex; AAA measures 3.1 cm in greatest transverse dimension. 06/03/2020; Location of Study: [facility]; Modality: duplex; AAA measures 3.0 cm in greatest transverse dimension. 03/19/2020 CT ([place]): 2.8 cm infrarenal aorta Results for orders placed or performed in visit on 07/18/23 CBC Result Value Ref Range WBC 4.58 4.00 - 10.80 K/uL RBC 4.40 3.85 - 5.15 M/uL HGB 11.6 (L) 12.0 - 15.3 g/dL HCT 38.9 36.0 - 45.2 % MCV 88.4 81.5 - 97.5 fL MCH 26.4 27.0 - 34.0 pg MCHC 29.8 32.0 - 36.0 g/dL RDW 26.2 11.5 - 15.5 % PLT 165 140 - 400 K/uL MPV 10.6 6.6 - 11.1 fL COMPREHENSIVE METABOLIC PANEL Result Value Ref Range BUN 36 (H) 6 - 20 mg/dL Creatinine 1.4 (H) 0.5 - 1.0 mg/dL Estimated Glomerular Filtration Rate 38 (L) >=60 mL/min Sodium 141 135 - 146 mmol/L Potassium 4.7 3.5 - 5.1 mmol/L Chloride 102 98 - 107 mmol/L CO2 26 22 - 32 mmol/L Anion Gap 13 7 - 15 mmol/L Glucose 89 70 - 120 mg/dL Albumin 4.3 3.8 - 5.0 g/dL AST 17 10 - 35 U/L Alkaline Phosphatase 70 35 - 130 U/L Bilirubin, Total 0.4 <=1.2 mg/dL Calcium 8.9 8.4 - 10.2 mg/dL Protein 6.6 6.0 - 8.3 g/dL ALT 12 10 - 35 U/L MYCODE SST1 Result Value Ref Range MyCode Specimen Freezing of extracted DNA, whole blood and/or serum. MYCODE SST2 Result Value Ref Range MyCode Specimen Freezing of extracted DNA, whole blood and/or serum. *Note: Due to a large number of results and/or encounters for the requested time period, some results have not been displayed. A complete set of results can be found in Results Review. The above clinical labs were reviewed by me on 08/09/23 IMPRESSIONS: Asymptomatic 3.3 cm AAA. No fem or pop aneurysms by 2022 duplex Asymptomatic less than 50% B/L carotid stenosis H/O superficial lower extremity thrombophlebitis in 07/2020 for which she was placed on a course ofEliquis to prevent further venous thromboembolic disease. ICM, s/p inferior posterior SD 08/2006, s/p PCI to RCA and 4 BMS 12/2006 Apical thrombus LBBB BiV ICD 11/24/2008 gent change 08/06/2013 with revision following day 07/10/2013. HTN Dyslipidemia. Smoker, about 6 cigarettes per day COPD. Prediabetes. CKD III Hepatitis C Chronic back pain with sciatica on left [...] Continue daily lipitor 40 mg for dyslipidemia Recommend AAA screening for family members. F/u in next several weeks with paolo to check blood flow to feet and return to see Dr Tejinder Zarate, MPAS, PA-C Section of Vascular and Endovascular Surgery [address] [address] I have reviewed the advanced practitioner's documentation on the date of service referenced in note, and I agree with, and take responsibility for the plan of care. Plan for check of her PAD Has numbness and pain LLE with pallor of left foot for many years Will check paolo to understand the severity of her pad Probably has an element of lumbar disc disease as well but vascular may also be playing a role Trent Stewart MD Section of Vascular [place] [address] [phone] documented in this encounter Nursing Notes * Elsie Connor compliance clerk - 08/09/2023 2:46 PM EDT Reviewed the option of transferring scripts to [facility] pharmacy with patient and / or family. KRISTIE Remy documented in this encounter Plan of Treatment Upcoming Encounters Date Type Department Care Team (Late st Contact Info) Description 08/23/2023 3:30 PM EDT Imaging Vascular Lab, [place] 2nd Floor, [place] [address] [place] [address] 08/29/2023 3:40 PM EDT Office Visit Neurology [facility] [address] [facility] [address] [place] [address] Ashlie Swift MD [address] [facility] [place] [address] 09/07/2023 11:00 AM EDT Office Visit Otolaryngology [facility] [address] [place] [address] Laurie Herrmann PA-C [address] [place] [address] 09/20/2023 2:50 PM EDT Office Visit Vascular Surgery, [facility] [address] [place] [address] Albin Marr MD [address] [facility] [place] [address] 11/02/2023 1:40 PM EDT Office Visit Family Practice [facility] [address] [facility] [place] [address] Erica Marsh MD [address] [facility] [place] [address] Scheduled Orders Name Type Priority Associated Diagnoses Orde r Schedule VASC ANKLE BRACHIAL INDICES WITHOUT PPG (PAD) Medical Imaging Routine PVD (peripheral vascular disease) with claudication (HCC) Expected: 08/23/2023, Expires: 09/08/2024 Scheduled Procedures Name Priority Associated Diagnoses Date/Ti [...] 023, 02/21/2022, 07/23/2019 CKD PHOS USE SMARTSET 96662 03/02/202402/19, 10/07/2022, 02/21/2022, Additional history exists CKD HGB USE SMARTSET 08852 07/18/202407/18, 03/15/2023, 03/02/2023, Additional history exists O2 [...] as of this encounter Visit Diagnoses Diagnosis Infrarenal abdominal aortic aneurysm (AAA) without rupture (HCC)- Primary PVD (peripheral vascular disease) with claudication (HCC) [...] the patient have Health Care Power of Implementation Specialist? No Care Teams Director Presales Relationship Specialty Start Date End Date Roman Ennis III, MD [address] [place] [address] PCP - General Family Medicine 06/28/18 documented as of this encounter
--- OUTSIDE RECORDS SUMMARY | 2023-10-18 15:34 | External Medical Summary | Summary of Care ---
Author Name Unknown Organization [facility] Address [address] [place] [address] Phone [phone] Care Team Providers Care Dielectric Embossing Machine Operator Name Role Phone Loli NORWOOD MD, Roman Barraza Primary Care Provider [phone] Reason for Visit * Reason Onset Date Comments STAIR AAA 08/10/2023 Encounter Details Date Type Department Care Team (Late st Contact Info) Description 08/10/2023 Telephone STAIR AAA [address], [place] [id number] Program, Stair [address] [place] [address] STAIR AAA Allergies Active Allergy Reactions Criticality Noted Date Comments Isosorbide Mononitrate 12/24/2007 Severe headaches Nsaids 05/29/2002 Tramadol Hcl Nausea/vomiting Low 01/09/2008 UGI distress documented as of this encounter (statuses as of 08/10/2023) Medications Medication Sig Dispensed Refills Start Date [...] as of this encounter (statuses as of 08/10/2023) Active Problems Problem Noted Date Diagnosed Date [...] current use of insulin 07/28/2023 Atherosclerosis of eklutna co ronary artery without angina pectoris 07/28/2023 [...] cardiomyopathy 07/18/2018 Coronary artery disease invo lving eklutna coronary artery of eklutna heart without angina pectoris 05/08/2018 Anxiety state 05/08/2018 ADVANCE DIRECTIVE INFORMATION 03/23/2018 Overview: No, Advance Directive brochure offered , patient declined. Incomplete uterovaginal prolapse 09/29/2017 Cystocele, lateral 09/29/2017 Vaginal atrophy 09/29/2017 Hepatitis C antibody test positive 05/09/2017 Overview: HCV treated; SVR Confirmed 03/05/2018 Controlled substance agreement signed 02/23/2017 Biventricular implantable ca rdioverter-defibrillator in situ 08/07/2013 Last Assessment & Plan: Followed by [facility] cardiology History of colonic polyps 09/04/2012 Overview: 09/01/2012: adenoma, repeat in 3 years ICD-10 update of inactive term Dyslipidemia, goal LDL below 70 05/07/2009 Overview: Per Lipid Taxonomy. OLD MYOCARDIAL INFARCT 12/11/2008 Overview: Modified by Acute ME Protocol #5. [facility] right coronary bare metal stents S/P angioplasty with stent 09/07/2006 History of tobacco use documented as of this encounter (statuses as of 08/10/2023) Resolved Problems Problem Noted Date Diagnosed Date [...] for Patients with Cardiovascular Disease Project #: [id number] PI: Peyton Conn MD [phone] GENOMICS CARDIO RESEARCH OTHER*[id number] 01/15/2007 06/28/2016 Overview: Renamed Per Clinical Trials Billing Project. Study Title: Genomic Markers for Patients with Cardiovascular Disease Project #: [id number] PI: Peyton Conn MD [phone] LV (left ventricular) mural thrombus 10/30/2006 12/28/2017 Tobacco use disorder 09/07/2006 010 Acute inferior myocardial infarction 08/19/2006 12/11/2008 Overview: Modified by Acute ME Protocol #5. [facility] right coronary bare metal stents EXAMINATION OF PARTICIPANT I N CLINICAL TRIAL - [facility] 08/19/2006 09/04/2009 Overview: Renamed Per Clinical Trials Billing Project. [facility] AMI clinical trial 263 Single blind trial comparing heparin and IIB/IIIA with bivalirudin, and Taxus vs bare metal stent. Patient Follow-up for 5 years Bradder: Trent Verduzco [phone] [facility] Clinical Trial*[id number] 08/19/2006 09/08/2014 Overview: Renamed Per Clinical Trials Billing Project. [facility] AMI clinical trial 263 Single blind trial comparing heparin and IIB/IIIA with bivalirudin, and Taxus vs bare metal stent. Patient Follow-up for 5 years Bradder: Trent Verduzco [phone] Menopause 08/29/2002 02/23/2017 LOC PRIM [id number] 05/29/200206/23 Dyslipidemia, goal to be determined 05/29/2002 05/07/2009 Overview: Per Lipid Taxonomy. 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 02/23/2017 documented as of this encounter (statuses as of 08/10/2023) Immunizations Name Administration Dates Next Due COVID-19 [...] Miscellaneous Notes * Telephone Encounter - Areli Croft LPN - 08/10/2023 8:04 AM EDT AAA - Clinical Summary Name: Rahda Tong Age: [age] year old AAA Review: Follow-up Follow-up Encounter Provider: Trent Stewart MD Patient Identified by: Problem List Report Imaging Interpretation: Duplex Type of Result: AAA 3.0 to 3.9 cm AAA Care Plan Imaging Recommendation: Aortic Duplex - details below Details: in 2 years AAA Care Plan Visit Recommendation: Return visit in Vascular Surgery Details: in 2 years Next steps: No action needed at this time. Patient was seen by vascular surgery yesterday. Next clinic visit with testing prior Is due in 2 years. Will continue to track. Time spent: 10 minutes Areli Croft LPN Coordinator STAIR (System to Track Abnormalities of Importance Reliably) [facility] AORTIC DUPLEX EVAL-COMPLETE 08/01/2023 Narrative VASCULAR LAB RESULTS DATE OF EXAM: 08/01/23 PRESENTING CONDITIONS: 3.0 cm AAA, smoker This [facility] PHYSICIAN REPORT: Abdominal Aorta Duplex Examination. Immediately before proceeding with the vascular lab procedure reported below, the identity of the patient, the correct exam and the correct procedural site were verified. Roman scale, color flow and spectral doppler were performed for this examination. Spectral Doppler demonstrates evidence of normal waveforms of the abdominal aorta. Peak systolic velocity measurements of the aorta are 41.6 centimeters per second. The maximum diameter of the proximal abdominal aorta measures 2.3 centimeters by 2.3 centimeters. The maximum diameter of the mid abdominal aorta measures 2.4 centimeters by 2.4 centimeters. The maximum diameter of the distal abdominal aorta measures 3.3 centimeters by 3.3 centimeters. The maximum diameter of the proximal right common iliac artery measures 1.1 centimeters by 1.1 centimeters. The maximum diameter of the proximal left common iliac artery measures 0.8 centimeters by 0.8 centimeters. Impression : There is evidence of a 3.3 cm abdominal aortic aneurysm. Color Doppler imaging demonstrates flow consistent with a patent lumen at and distal to the aortic aneurysm. documented in this encounter Plan of Treatment Upcoming Encounters Date Type Department Care Team (Late st Contact Info) Description 08/23/2023 3:30 PM EDT Imaging Vascular Lab, [facility] 2nd [facility] [address] [facility] [place] [address] 08/29/2023 3:40 PM EDT Office Visit Neurology [facility] [address] [facility] [place] [address] Ashlie Swift MD [address] [facility] [place] [address] 09/07/2023 11:00 AM EDT Office Visit Otolaryngology [facility] [address] [facility] [place] [address] Laurie Herrmann PA-C 132 [facility] [address] 09/20/2023 2:50 PM EDT Office Visit Vascular Surgery, [facility] [address] [facility] [place] [address] Albin Marr MD [address] [place] [address] 11/02/2023 1:40 PM EDT Office Visit Family Practice [facility] [address] [facility] [place] [address] Erica Marsh MD [address] [place] [address] Scheduled Procedures Name Priority Associated Diagnoses Date/Ti [...] 023, 02/21/2022, 07/23/2019 CKD PHOS USE SMARTSET 28701 03/02/202402/19, 10/07/2022, 02/21/2022, Additional history exists CKD HGB USE SMARTSET 72473 07/18/202407/18, 03/15/2023, 03/02/2023, Additional history exists O2 [...] the patient have Health Care Power of Tier In? No Care Teams Dielectric Embossing Machine Operator Relationship Specialty Start Date End Date Roman Ennis III, MD [address] [facility] [place] [address] PCP - General Family Medicine 06/28/18 documented as of this encounter
--- OUTSIDE RECORDS SUMMARY | 2023-10-18 15:35 | External Medical Summary | Summary of Care ---
Author Name Unknown Organization [facility] Address [address] [place] [address] Phone [phone] Care Team Providers Care Loan Auditor Name Role Phone Loli NORWOOD MD, Roman Barraza Primary Care Provider [phone] Encounter Details Date Type Department Care Team (Late st Contact Info) Description 07/29/2023 Orders Only PATIENT PORTAL DO NOT DELETE THIS DEPT USED BY [place] [id number] Allergies Active Allergy Reactions Criticality Noted Date Comments Isosorbide Mononitrate 12/24/2007 Severe headaches Nsaids 05/29/2002 Tramadol Hcl Nausea/vomiting Low 01/09/2008 UGI distress documented as of this encounter (statuses as of 07/29/2023) Medications Medication Sig Dispensed Refills Start Date [...] a day. 60 Tablet 3 03/09/2023 Active Pantoprazole Sodium 40 [...] before bed. 120 Capsule 11 05/03/2023 Active Metoprolol Succinate ER 50 MG Oral Tablet Extended Release 24 Hour (toPROL XL) Take 1 Tablet by mouth in the morning and 1 Tablet before bedtime. 0 Active Lisinopril 10 MG Oral Tablet (Prinivil) Take 1 Tablet by mouth in the morning. 0 Active oxyCODONE HCl 5 MG Oral Tablet (Oxy IR)Indications:Chroni c pain syndrome Take 1 Tablet by mouth every 6 hours as needed (pain). 100 Tablet 0 07/14/2023 Active Ondansetron HCl 4 MG Oral Tablet (Zofran)Indications:N ausea Take 1 Tablet by mouth every 8 hours as needed for Nausea. 20 Tablet 0 07/18/2023 Active Ferrous Sulfate 325 (65 Fe) MG Oral Tablet Delayed Release Take 1 Tablet by mouth in the morning and 1 Tablet before bedtime. 0 07/18/2023 Active Clopidogrel Bisulfate 75 MG Oral Tablet (Plavix) Take 1 Tablet by mouth in the morning. 30 Tablet 5 07/28/2023 Active documented as of this encounter (statuses as of 07/29/2023) Active Problems Problem Noted Date Diagnosed Date Hypertensive heart and chron ic kidney disease with heart failure and stage 1 through stage 4 chronic kidney disease, or chronic kidney disease 07/28/2023 Chronic obstructive pulmonar y disease with (acute) exacerbation 07/28/2023 Acute deep vein thrombosis ( DVT) of proximal vein of right lower extremity 07/28/2023 New onset seizure 07/28/2023 Viral hepatitis C 07/28/2023 Stage 3 chronic kidney disease 07/28/2023 Type 2 diabetes mellitus wit h stage 3b chronic kidney disease, without long-term current use of insulin 07/28/2023 Atherosclerosis of [place] ronary artery without angina pectoris 07/28/2023 [...] /min) 05/11/2018 Coronary artery disease invo lving [place] coronary artery of [place] heart without angina pectoris 05/08/2018 Anxiety state [...] Overview: Modified by Acute [place] Protocol #5. [facility] right coronary bare metal stents S/P angioplasty with stent 09/07/2006 History of tobacco use documented as of this encounter (statuses as of 07/29/2023) Resolved Problems Problem Noted Date Diagnosed Date [...] for Patients with Cardiovascular Disease Project #: [id number] PI: Peyton Conn MD [phone] GENOMICS CARDIO RESEARCH OTHER*[id number] 01/15/2007 06/28/2016 Overview: Renamed Per Clinical Trials Billing Project. Study Title: Genomic Markers for Patients with Cardiovascular Disease Project #: [id number] PI: Peyton Conn MD [phone] LV (left ventricular) mural thrombus 10/30/2006 12/28/2017 Tobacco use disorder 09/07/2006 010 Acute inferior myocardial infarction 08/19/2006 12/11/2008 Overview: Modified by Acute [place] Protocol #5. [facility] right coronary bare metal stents EXAMINATION OF PARTICIPANT I N CLINICAL TRIAL - [place] 08/19/2006 09/04/2009 Overview: Renamed Per Clinical Trials Billing Project. [facility] AMI clinical trial 263 Single blind trial comparing heparin and IIB/IIIA with bivalirudin, and Taxus vs bare metal stent. Patient Follow-up for 5 years Director Of Event Sales: Trent Verduzco [phone] [facility] Clinical Trial*[id number] 08/19/2006 09/08/2014 Overview: Renamed Per Clinical Trials Billing Project. [facility] AMI clinical trial 2004- 6817 Single blind trial comparing heparin and IIB/IIIA with bivalirudin, and Taxus vs bare metal stent. Patient Follow-up for 5 years Director Of Event Sales: Trent Verduzco [phone] Menopause 08/29/2002 02/23/2017 LOC PRIM [id number] 05/29/200206/23 Dyslipidemia, goal to be determined 05/29/2002 05/07/2009 Overview: Per Lipid Taxonomy. 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 02/23/2017 documented as of this encounter (statuses as of 07/29/2023) Immunizations Name Administration Dates Next Due COVID-19 [...] Care Team (Late st Contact Info) Description 08/01/2023 9:30 AM EDT [facility] [address] [place] [address] 08/09/2023 2:30 PM EDT Office Visit Vascular Surgery, [facility] [address] [place] [address] Trent Stewart MD [address] [place] [facility] [address] 08/29/2023 3:40 PM EDT Office Visit [facility] [address] [facility] [address] Ashlie Swift MD [address] [facility] [place] [address] 09/07/2023 11:00 AM EDT Office Visit Otolaryngology [facility] [address] [place] [address] Laurie Herrmann PA-C [address] [place] [address] 11/02/2023 1:40 PM EDT Office Visit Family Practice [facility] [address] [facility] [place] [address] Erica Marsh MD [address] [facility] [place] [address] Scheduled Procedures Name Priority Associated Diagnoses Date/Ti [...] 023, 02/21/2022, 07/23/2019 CKD PHOS USE SMARTSET 04650 03/02/202402/19, 10/07/2022, 02/21/2022, Additional history exists CKD HGB USE SMARTSET 30207 07/18/202407/18, 03/15/2023, 03/02/2023, Additional history exists O2 [...] the patient have Health Care Power of Rn Dialysis? No Care Teams Loan Auditor Relationship Specialty Start Date End Date Roman Ennis III, MD [address] [place] [address] PCP - General Family Medicine 06/28/18 documented as of this encounter
--- OUTSIDE RECORDS SUMMARY | 2023-10-18 15:35 | External Medical Summary | Summary of Care ---
Author Name Unknown Organization [facility] Address [address] [place] [address] Phone [phone] Care Team Providers Care Publicity Person Name Role Phone Loli NORWOOD MD, John E Primary Care Provider [phone] Reason for Visit * Reason Onset Date Comments Med Request 08/09/2023 Encounter Details Date Type Department Care Team (Late st Contact Info) Description 08/09/2023 Telephone Family Practice [facility] [place] [address] [facility] [place] [address] Roman Ennis III, MD [address] [facility] [place] [address] Med Request Allergies Active Allergy Reactions Criticality [...] TWICE DAILY 180 Tablet 3 08/07/2023 Active Metoprolol Succinate ER 50 MG Oral [...] current use of insulin 07/28/2023 Atherosclerosis of [place] co ronary artery without angina pectoris 07/28/2023 [...] cardiomyopathy 07/18/2018 Coronary artery disease invo lving [place] coronary artery of [place] heart without angina pectoris 05/08/2018 Anxiety [...] Overview: Modified by Acute [place] Protocol #5. [facility] – [...] for Patients with Cardiovascular Disease Project #: [id number] PI: Peyton Conn MD [phone] GENOMICS CARDIO RESEARCH OTHER*[id number] 01/15/2007 06/28/2016 Overview: Renamed Per Clinical Trials Billing Project. Study Title: Genomic Markers for Patients with Cardiovascular Disease Project #: [id number] PI: Peyton Conn MD [phone] LV (left ventricular) mural thrombus 10/30/2006 12/28/2017 Tobacco use disorder 09/07/2006 010 Acute inferior myocardial infarction 08/19/2006 12/11/2008 Overview: Modified by Acute [place] Protocol #5. [facility] [place] coronary bare metal stents EXAMINATION OF PARTICIPANT I N CLINICAL TRIAL - [facility] 08/19/2006 09/04/2009 Overview: Renamed Per Clinical Trials Billing Project. [facility] AMI clinical trial 263 Single blind trial comparing heparin and IIB/IIIA with bivalirudin, and Taxus vs bare metal stent. Patient Follow-up for 5 years Healthcare Consultant: Trent Verduzco [phone] [facility] Clinical Trial*[id number] 08/19/2006 09/08/2014 Overview: Renamed Per Clinical Trials Billing Project. [facility] AMI clinical trial 263 Single blind trial comparing heparin and IIB/IIIA with bivalirudin, and Taxus vs bare metal stent. Patient Follow-up for 5 years Healthcare Consultant: Trent Verduzco [phone] Menopause 08/29/2002 02/23/2017 LOC PRIM [id number] 05/29/200206/23 Dyslipidemia, goal to be determined 05/29/2002 [...] * Telephone Encounter - Shawn Lisa Elise, AIR TURNING MACHINE FEEDER - 08/09/2023 10:24 AM EDT Pending Prescriptions: Disp Refills Metoprolol Succinate ER 50 MG Oral Tablet*30 Tab*6 Sig: Take 1 Tablet by mouth [...] Vaginal atrophy N95.2 Coronary artery disease involving [place] coronary artery of [place] heart without angina pectoris I25.10 Anxiety state F41.1 History of ischemic cardiomyopathy Z86.79 COPD, group C, by GOLD 2017 classification ([facility]) J44.9 Essential hypertension with goal blood pressure less than 140/90 I10 Carpal tunnel syndrome, bilateral G56.03 Trigger ring finger of right hand M65.341 Trigger ring finger of left hand M65.342 History of 2019 novel coronavirus disease (COVID-19) Z86.16 Abdominal aortic aneurysm (AAA) without rupture ([facility]) I71.40 Type 2 diabetes mellitus with hemoglobin [...] of insulin (HCC) E11.22, N18.32 Atherosclerosis of [place] coronary artery without angina pectoris I25.10 Chronic [...] AM * Telephone Encounter - Luann Howe, broach grinder - 08/09/2023 9:46 AM EDT Pharmacy calling requesting the following medication below that is listed as "Historical". The following information was provided: Medication Name: Metoprolol Succinate ER 50 MG Oral Tablet Extended Release 24 Hour (toPROL XL) Strength: 50mg Directions: 1 tablet in the morning and 1 at bedtime Preferred Quantity: 30ds Previous Prescriber: Dr. Freed Preferred Pharmacy: [facility], [address] [place] Please review and approve if appropriate. Thank you, Luann Howe Buttermaker I [facility] ([facility]formerly Tele[facility]) 08/09/2023,9:47 AM documented in this encounter Plan of Treatment Upcoming Encounters Date Type Department Care Team (Late st Contact Info) Description 08/09/2023 2:30 PM EDT Office Visit Vascular Surgery, [facility] [address] [facility] [place] [address] Trent Stewart MD [address] [place] [address] 08/29/2023 3:40 PM EDT Office Visit Neurology [facility] [address] [place] [address] Ashlie Swift MD [address] [facility] [place] [address] 09/07/2023 11:00 AM EDT Office Visit Otolaryngology [facility] [address] [facility] [place] [address] Laurie Herrmann PA-C [address] [facility] [place] [address] 11/02/2023 1:40 PM EDT Office Visit Family Practice [facility] [address] [place] [address] Erica Marsh MD [address] [place] [address] Scheduled Procedures Name Priority Associated Diagnoses Date/Ti me COLONOSCOPY FLEXIBLE PROXIMA L DIAGNOSTIC Recall History of colonic polyps Health Maintenance Due Date Last Done Comments DISCUSS TOBACCO CESSATION (REFER TO SMARTSET #2146) 1945 Alpha-1 Antitrypsin 1965 Diabetic Foot Exam 1965 DXA Scan 09/04/2016 09/04/2013, 09/04/2013 *ADVANCE DIRECTIVE NOT ON FILE 06/09/2019 COVID-19 Vaccine ( season) 2023 11/12/2020, 10/01/2020 Depression Screening 06/02/2023 06/02/2022 Diabetic Eye Exam 07/21/2023 07/20/2022 HbA1c 09/01/2023 03/02/2023, 12/21, 08/19/2006, Additional history exists GFR 01/16/2024 07/18/2023, 03/23, 03/15/2023, Additional history exists Albumin/Creatinine Ratio 03/02/2024 023, 02/21/2022, 07/23/2019 CKD PHOS USE SMARTSET 40048 03/02/202402/19, 10/07/2022, 02/21/2022, Additional history exists CKD HGB USE SMARTSET 06836 07/18/202407/18, 03/15/2023, 03/02/2023, Additional history exists O2 [...] the patient have Health Care Power of Gis Analyst? No Care Teams Publicity Person Relationship Specialty Start Date End Date Roman Ennis III, MD [address] [place] [address] PCP - General Family Medicine 06/28/18 documented as of this encounter
--- OUTSIDE RECORDS SUMMARY | 2023-10-18 15:35 | External Medical Summary | Summary of Care ---
Author Name Unknown Organization [facility] Address [address] [facility] [place] [address] Phone [phone] Care Team Providers Care Open Tenter Operator Name Role Phone Loli NORWOOD MD, Roman Barraza Primary Care Provider [phone] Reason for Visit * Reason Onset Date Comments Test Results 07/26/2023 Encounter Details Date Type Department Care Team (Late st Contact Info) Description 07/26/2023 Telephone Cardiology, [facility] [address] [place] [address] Nikole Crenshaw PA-C [address] [place] [address] Test Results Allergies Active Allergy Reactions Criticality Noted Date Comments Isosorbide Mononitrate 12/24/2007 Severe headaches Nsaids 05/29/2002 Tramadol Hcl Nausea/vomiting Low 01/09/2008 UGI distress documented as of this encounter (statuses as of 07/26/2023) Medications Medication Sig Dispensed Refills Start Date [...] the morning. 30 Tablet 5 03/09/2023 Active Pantoprazole Sodium 40 MG Oral [...] 1 Tablet before bedtime. 0 07/18/2023 Active documented as of this encounter (statuses as of 07/26/2023) Active Problems Problem Noted Date Diagnosed Date Food insecurity 05/01/2023 Overview: Per [facility] Protocol Hip pain, left 04/28/2023 [...] /min) 05/11/2018 Coronary artery disease invo lving [place] coronary artery of [place] heart without angina pectoris 05/08/2018 Anxiety state 05/08/2018 ADVANCE DIRECTIVE INFORMATION 03/23/2018 Overview: No, Advance Directive brochure offered , patient declined. Incomplete uterovaginal prolapse 09/29/2017 Cystocele, lateral 09/29/2017 Vaginal atrophy 09/29/2017 Hepatitis C antibody test positive 05/09/2017 Overview: HCV treated; SVR Confirmed 03/05/2018 Controlled substance agreement signed 02/23/2017 Biventricular implantable ca rdioverter-defibrillator in situ 08/07/2013 Last Assessment & Plan: Followed by [facility] History of colonic polyps 09/04/2012 Overview: 09/01/2012: adenoma, repeat in 3 years ICD-10 update of inactive term Dyslipidemia, goal LDL below 70 05/07/2009 Overview: Per Lipid Taxonomy. OLD MYOCARDIAL INFARCT 12/11/2008 Overview: Modified by Acute [place] Protocol #5. [facility] right coronary bare metal stents S/P angioplasty with stent 09/07/2006 History of tobacco use documented as of this encounter (statuses as of 07/26/2023) Resolved Problems Problem Noted Date Diagnosed Date [...] for Patients with Cardiovascular Disease Project #: [id number] PI: Peyton Conn MD [phone] GENOMICS CARDIO RESEARCH OTHER*[id number] 01/15/2007 06/28/2016 Overview: Renamed Per Clinical Trials Billing Project. Study Title: Genomic Markers for Patients with Cardiovascular Disease Project #: [id number] PI: Peyton Conn MD [phone] LV (left ventricular) mural thrombus 10/30/2006 12/28/2017 Tobacco use disorder 09/07/2006 010 Acute inferior myocardial infarction 08/19/2006 12/11/2008 Overview: Modified by Acute [place] Protocol #5. [facility] right coronary bare metal stents EXAMINATION OF PARTICIPANT I N CLINICAL TRIAL - [facility] 08/19/2006 09/04/2009 Overview: Renamed Per Clinical Trials Billing Project. [facility] AMI clinical trial 263 Single blind trial comparing heparin and IIB/IIIA with bivalirudin, and Taxus vs bare metal stent. Patient Follow-up for 5 years Travel Clerk: Trent Verduzco [phone] [facility] Clinical Trial*[id number] 08/19/2006 09/08/2014 Overview: Renamed Per Clinical Trials Billing Project. [facility] AMI clinical trial 263 Single blind trial comparing heparin and IIB/IIIA with bivalirudin, and Taxus vs bare metal stent. Patient Follow-up for 5 years Travel Clerk: Trent Verduzco [phone] Menopause 08/29/2002 02/23/2017 LOC PRIM [id number] 05/29/200206/23 Dyslipidemia, goal to be determined 05/29/2002 05/07/2009 Overview: Per Lipid Taxonomy. 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 02/23/2017 documented as of this encounter (statuses as of 07/26/2023) Immunizations Name Administration Dates Next Due COVID-19 [...] Telephone Encounter - Oma Walker CMA - 07/26/2023 9:30 AM EST Letter mailed. * Telephone Encounter - Oma Walker CMA - 07/26/2023 9:29 AM EST ----- Message from Nikole Crenshaw PA-C sent at 07/25/2023 4:25 PM EST ----- Mild renal insufficiency but stable. Potassium improved. Hbg also continues to improve. Good news. No changes at this time documented in this encounter Plan of Treatment Upcoming Encounters Date Type Department Care Team (Late st Contact Info) Description 07/28/2023 9:00 AM EST Office Visit Family Practice [facility] [place] [address] [place], [place] [address] Erica Marsh MD 200 [facility] [place] [address] 08/01/2023 9:30 AM EDT [facility] [address] [facility] [place] [address] 08/09/2023 2:30 PM EDT Office Visit Vascular Surgery, [facility] [address] [facility] [place] [address] Trent Stewart MD [address] [place] [address] 08/29/2023 3:40 PM EDT Office Visit Neurology [facility] [address] [place] [address] Ashlie Swift MD 200 [facility] [place] [address] 09/07/2023 11:00 AM EDT Office Visit Otolaryngology [facility] [address] [facility] [place] [address] Laurie Herrmann PA-C [facility] [place] [address] Scheduled Procedures Name Priority Associated Diagnoses Date/Ti [...] 023, 02/21/2022, 07/23/2019 CKD PHOS USE SMARTSET 68675 03/02/202402/19, 10/07/2022, 02/21/2022, Additional history exists CKD HGB USE SMARTSET 93102 07/18/202407/18, 03/15/2023, 03/02/2023, Additional history exists O2 ASSESSMENT COMPLETED IN PAST YEAR FOR COPD 07/18/2024 07/18/2023 COLONOSCOPY-EVERY 5 YRS AGES 18-100 07/03/2028 07/03/2023, [...] patient have Health Care Power of Implementation Architect? No Care Teams Open Tenter Operator Relationship Specialty Start Date End Date Roman Ennis III, MD [address] [facility] [place] [address] PCP - General Family Medicine 06/28/18 documented as of this encounter
--- OUTSIDE RECORDS SUMMARY | 2023-10-18 15:35 | External Medical Summary | Summary of Care ---
Author Name Unknown Organization [facility] Address [address] [facility] [address] Phone [phone] Care Team Providers Care Black Topper Name Role Phone Loli NORWOOD MD, Marilyn Barraza Primary Care Provider [phone] Reason for Visit * Reason Comments eRx-Medication Refill Encounter Details Date Type Department Care Team (Late st Contact Info) Description 08/04/2023 [facility] [place] [facility] [place] [address] Marilyn Nogueira III, MD 200 [facility] [place] [address] Allergies Active Allergy Reactions Criticality Noted Date Comments Isosorbide Mononitrate 12/24/2007 Severe headaches Nsaids 05/29/2002 Tramadol Hcl Nausea/vomiting Low 01/09/2008 UGI distress documented as of this encounter (statuses as of 08/07/2023) Medications Medication Sig Dispensed Refills Start Date [...] by mouth in the morning. 0 Active Ondansetron HCl 4 MG Oral Tablet [...] oxyCODONE HCl 5 MG Oral Tablet (Oxy IR)Indications:Monitoring Engineer fernando pain syndrome Take 1 Tablet by mouth every 6 hours as needed (pain). 100 Tablet 0 08/05/2023 Active Eliquis 5 MG Oral Tablet (Apixaban) TAKE ONE TABLET BY MOUTH TWICE DAILY 180 Tablet 3 08/07/2023 Active Apixaban 5 MG Oral Tablet (Eliquis) Take 1 Tablet by mouth 2 times a day. 60 Tablet 3 03/09/2023 08/07/19 24 Discontinued documented as of this encounter (statuses as of 08/07/2023) Active Problems Problem Noted Date Diagnosed Date [...] current use of insulin 07/28/2023 Atherosclerosis of [place] co ronary artery without angina pectoris 07/28/2023 [...] cardiomyopathy 07/18/2018 Coronary artery disease invo lving [place] coronary artery of [place] heart without angina pectoris 05/08/2018 Anxiety state 05/08/2018 ADVANCE DIRECTIVE INFORMATION 03/23/2018 Overview: No, Advance Directive brochure offered , patient declined. Incomplete uterovaginal prolapse 09/29/2017 Cystocele, lateral 09/29/2017 Vaginal atrophy 09/29/2017 Hepatitis C antibody test positive 05/09/2017 Overview: HCV treated; SVR Confirmed 03/05/2018 Controlled substance agreement signed 02/23/2017 Biventricular implantable ca rdioverter-defibrillator in situ 08/07/2013 Last Assessment & Plan: Followed by [facility] cardiology History of colonic polyps 09/04/2012 Overview: 09/01/2012: adenoma, repeat in 3 years ICD-10 update of inactive term Dyslipidemia, goal LDL below 70 05/07/2009 Overview: Per Lipid Taxonomy. OLD MYOCARDIAL INFARCT 12/11/2008 Overview: Modified by Acute [place] Protocol #5. [facility] right coronary bare metal stents S/P angioplasty with stent 09/07/2006 History of tobacco use documented as of this encounter (statuses as of 08/07/2023) Resolved Problems Problem Noted Date Diagnosed Date [...] for Patients with Cardiovascular Disease Project #: [id number] PI: Peyton Conn MD [phone] GENOMICS CARDIO RESEARCH OTHER*[id number] 01/15/2007 06/28/2016 Overview: Renamed Per Clinical Trials Billing Project. Study Title: Genomic Markers for Patients with Cardiovascular Disease Project #: [id number] PI: Peyton Conn MD [phone] LV (left ventricular) mural thrombus 10/30/2006 12/28/2017 Tobacco use disorder 09/07/2006 010 Acute inferior myocardial infarction 08/19/2006 12/11/2008 Overview: Modified by Acute [place] Protocol #5. [facility] right coronary bare metal stents EXAMINATION OF PARTICIPANT I N CLINICAL TRIAL - [facility] 08/19/2006 09/04/2009 Overview: Renamed Per Clinical Trials Billing Project. [facility] AMI clinical trial 263 Single blind trial comparing heparin and IIB/IIIA with bivalirudin, and Taxus vs bare metal stent. Patient Follow-up for 5 years Senior Asic Design Engineer: Trent Verduzco [phone] [facility] Clinical Trial*[id number] 08/19/2006 09/08/2014 Overview: Renamed Per Clinical Trials Billing Project. [facility] AMI clinical trial 263 Single blind trial comparing heparin and IIB/IIIA with bivalirudin, and Taxus vs bare metal stent. Patient Follow-up for 5 years Senior Asic Design Engineer: Trent Verduzco [phone] Menopause 08/29/2002 02/23/2017 LOC PRIM [id number] 05/29/200206/23 Dyslipidemia, goal to be determined 05/29/2002 05/07/2009 Overview: Per Lipid Taxonomy. 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 02/23/2017 documented as of this encounter (statuses as of 08/07/2023) Immunizations Name Administration Dates Next Due COVID-19 [...] encounter Miscellaneous Notes * Telephone Encounter - Dolores Giron RPh - 08/07/2023 11:38 AM EDTSigned Prescriptions: Disp Refills Eliquis 5 MG Oral Tablet (Apixaban) 180 Ta*3 Sig: TAKE ONE TABLET BY MOUTH TWICE DAILYAuthorizing Provider: MARILYN NOGUEIRA III User: DOLORES GIRON------ documented in this encounter Plan of Treatment Upcoming Encounters Date Type Department Care Team (Late st Contact Info) Description 08/09/2023 2:30 PM EDT Office Visit Vascular Surgery, [facility] [address] [facility] [place] [address] Trent Stewart MD [address] [facility] [place] [address] 08/29/2023 3:40 PM EDT Office Visit Neu[facility] [address] [place] [address] Ashlie Swift MD 200 [facility] [place] [address] 09/07/2023 11:00 AM EDT Office Visit Otolaryngology [facility] [address] [place] [address] Laurie Herrmann PA-C [address] [place] [address] 11/02/2023 1:40 PM EDT Office Visit Family Practice [facility] 200 [facility] [place] [address] Erica Marsh MD 200 [facility] [place] [address] Scheduled Procedures Name Priority Associated Diagnoses Date/Ti me COLONOSCOPY FLEXIBLE PROXIMA L DIAGNOSTIC Recall History of colonic polyps Health Maintenance Due Date Last Done Comments DISCUSS TOBACCO CESSATION (REFER TO SMARTSET #5378) 1945 Alpha-1 Antitrypsin 1965 Diabetic Foot Exam 1965 DXA Scan 09/04/2016 09/04/2013, 09/04/2013 *ADVANCE DIRECTIVE NOT ON FILE 06/09/2019 COVID-19 Vaccine ( season) 2023 11/12/2020, 10/01/2020 Depression Screening 06/02/2023 06/02/2022 Diabetic Eye Exam 07/21/2023 07/20/2022 HbA1c 09/01/2023 03/02/2023, 12/21, 08/19/2006, Additional history exists GFR 01/16/2024 07/18/2023, 03/23, 03/15/2023, Additional history exists Albumin/Creatinine Ratio 03/02/2024 023, 02/21/2022, 07/23/2019 CKD PHOS USE SMARTSET 79523 03/02/202402/19, 10/07/2022, 02/21/2022, Additional history exists CKD HGB USE SMARTSET 46098 07/18/202407/18, 03/15/2023, 03/02/2023, Additional history exists O2 [...] the patient have Health Care Power of Nat Instructor? No Care Teams Black Topper Relationship Specialty Start Date End Date Marilyn Nogueira III, MD 200 [place] [address] PCP - General Family Medicine 06/28/18 documented as of this encounter
--- OUTSIDE RECORDS SUMMARY | 2023-10-18 15:35 | External Medical Summary | Summary of Care ---
Author Name Unknown Organization [facility] Address [address] [facility] [place] [address] Phone [phone] Care Team Providers Care Flaring Machine Operator Name Role Phone Loli NORWOOD MD, Roman Barraza Primary Care Provider [phone] Encounter Details Date Type Department Care Team (Late st Contact Info) Description 06/29/2023 Result Scan Unspecified Department <No scans attached> Allergies Active Allergy Reactions Criticality Noted Date Comments Isosorbide Mononitrate 12/24/2007 Severe headaches Nsaids 05/29/2002 Tramadol Hcl Nausea/vomiting Low 01/09/2008 UGI distress documented as of this encounter (statuses as of 07/28/2023) Medications Medication Sig Dispensed Refills Start Date [...] as of this encounter (statuses as of 07/28/2023) Active Problems Problem Noted Date Diagnosed Date [...] current use of insulin 07/28/2023 Atherosclerosis of [place] co ronary artery without angina pectoris 07/28/2023 [...] /min) 05/11/2018 Coronary artery disease invo lving [place] coronary artery of [place] heart without angina pectoris 05/08/2018 Anxiety state 05/08/2018 ADVANCE DIRECTIVE INFORMATION 03/23/2018 Overview: No, Advance Directive brochure offered , patient declined. Incomplete uterovaginal prolapse 09/29/2017 Cystocele, lateral 09/29/2017 Vaginal atrophy 09/29/2017 Hepatitis C antibody test positive 05/09/2017 Overview: HCV treated; SVR Confirmed 03/05/2018 Controlled substance agreement signed 02/23/2017 Biventricular implantable ca rdioverter-defibrillator in situ 08/07/2013 Last Assessment & Plan: [place] [facility] [place] History of colonic polyps 09/04/2012 Overview: 09/01/2012: adenoma, repeat in 3 years ICD-10 update of inactive term Dyslipidemia, goal LDL below 70 05/07/2009 Overview: Per Lipid Taxonomy. OLD MYOCARDIAL INFARCT 12/11/2008 Overview: Modified by Acute [place] Protocol #5. [facility] right coronary bare metal stents S/P angioplasty with stent 09/07/2006 History of tobacco use documented as of this encounter (statuses as of 07/28/2023) Resolved Problems Problem Noted Date Diagnosed Date [...] for Patients with Cardiovascular Disease Project #: [id number] PI: Peyton Conn MD [phone] GENOMICS CARDIO RESEARCH OTHER*[id number] 01/15/2007 06/28/2016 Overview: Renamed Per Clinical Trials Billing Project. Study Title: Genomic Markers for Patients with Cardiovascular Disease Project #: [id number] PI: Peyton Conn MD [phone] LV (left ventricular) mural thrombus 10/30/2006 12/28/2017 Tobacco use disorder 09/07/2006 010 Acute inferior myocardial infarction 08/19/2006 12/11/2008 Overview: Modified by Acute [place] Protocol #5. [facility] right coronary bare metal stents EXAMINATION OF PARTICIPANT I N CLINICAL TRIAL - [facility] 08/19/2006 09/04/2009 Overview: Renamed Per Clinical Trials Billing Project. [facility] AMI clinical trial 263 Single blind trial comparing heparin and IIB/IIIA with bivalirudin, and Taxus vs bare metal stent. Patient Follow-up for 5 years Doctor Of Nursing Practice: Trent Verduzco [phone] [facility] Clinical Trial*[id number] 08/19/2006 09/08/2014 Overview: Renamed Per Clinical Trials Billing Project. [facility] AMI clinical trial 263 Single blind trial comparing heparin and IIB/IIIA with bivalirudin, and Taxus vs bare metal stent. Patient Follow-up for 5 years Doctor Of Nursing Practice: Trent Verduzco [phone] Menopause 08/29/2002 02/23/2017 LOC PRIM [id number] 05/29/200206/23 Dyslipidemia, goal to be determined 05/29/2002 05/07/2009 Overview: Per Lipid Taxonomy. 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 02/23/2017 documented as of this encounter (statuses as of 07/28/2023) Immunizations Name Administration Dates Next Due COVID-19 [...] 08/01/2023 9:30 AM EDT Imaging Vascular Lab, [facility] 2nd Floor, [place] [address] [facility] [place] [address] 08/09/2023 2:30 PM EDT Office Visit Vascular Surgery, [facility] 132 [facility] [place] [address] Trent Stewart MD [address] [place] [address] 08/29/2023 3:40 PM EDT Office Visit Neurology [facility] [address] [place] [address] Ashlie Swift MD 200 [facility] [place] [place] [place] [address] 09/07/2023 11:00 AM EDT Office Visit Otolaryngology [facility] 132 [facility] [place] [address] Laurie Herrmann PA-C 132 [facility] [place] [address] 11/02/2023 1:40 PM EDT Office Visit Family Practice [facility] [address] [place] [address] Erica Marsh MD [address] [place] [address] Scheduled Procedures Name Priority Associated Diagnoses Date/Ti [...] 023, 02/21/2022, 07/23/2019 CKD PHOS USE SMARTSET 95017 03/02/202402/19, 10/07/2022, 02/21/2022, Additional history exists CKD HGB USE SMARTSET 03074 07/18/202407/18, 03/15/2023, 03/02/2023, Additional history exists O2 [...] Date/Time Associated Diagnosis Comments ECHOCARDIOLOGY SCANNED RESULT 06/29/2023 documented in this encounter Results * ECHOCARDIOLOGY SCANNED RESULT (06/29/2023) 06/29/2023 No Physician Data Unknown ECHOCARDIOLOGY documented in [...] the patient have Health Care Power of Barrel Lathe Operator Inside? No Care Teams Flaring Machine Operator Relationship Specialty Start Date End Date Roman Ennis III, MD [address] [place] [address] PCP - General Family Medicine 06/28/18 documented as of this encounter
--- OUTSIDE RECORDS SUMMARY | 2023-10-18 15:35 | External Medical Summary | Summary of Care ---
Author Name Unknown Organization [facility] Address [address] [place] [address] Phone [phone] Care Team Providers Care Licensed Tax Consultant Name Role Phone Loli NORWOOD MD, John E Primary Care Provider [phone] Reason for Visit * Reason Onset Date Comments Medication Refill 08/03/2023 Encounter Details Date Type Department Care Team (Late st Contact Info) Description 08/03/2023 Refill [facility] [place] 200 [facility] [place] [address] Marilyn Nogueira III, MD 200 [facility] [place] [address] Chronic pain syndrome Allergies Active Allergy Reactions Criticality Noted Date Comments Isosorbide Mononitrate 12/24/2007 Severe headaches Nsaids 05/29/2002 Tramadol Hcl Nausea/vomiting Low 01/09/2008 UGI distress documented as of this encounter (statuses as of 08/05/2023) Medications Medication Sig Dispensed Refills Start Date [...] needed (pain). 100 Tablet 0 08/05/2023 Active oxyCODONE HCl 5 MG Oral Tablet (Oxy IR)Indications:Chron ic pain syndrome Take 1 Tablet by mouth every 6 hours as needed (pain). 100 Tablet 0 07/14/2023 Discontinue d(Refill) documented as of this encounter (statuses as of 08/05/2023) Active Problems Problem Noted Date Diagnosed Date [...] current use of insulin 07/28/2023 Atherosclerosis of [place] co ronary artery without angina pectoris 07/28/2023 [...] cardiomyopathy 07/18/2018 Coronary artery disease invo lving [place] coronary artery of [place] heart without angina pectoris 05/08/2018 Anxiety state [...] Overview: Modified by Acute [place] Protocol #5. [facility] right coronary bare metal stents S/P angioplasty with stent 09/07/2006 History of tobacco use documented as of this encounter (statuses as of 08/05/2023) Resolved Problems Problem Noted Date Diagnosed Date [...] for Patients with Cardiovascular Disease Project #: [id number] PI: Peyton Conn MD [phone] GENOMICS CARDIO RESEARCH OTHER*[id number] 01/15/2007 06/28/2016 Overview: Renamed Per Clinical Trials Billing Project. Study Title: Genomic Markers for Patients with Cardiovascular Disease Project #: [id number] PI: Peyton Conn MD [phone] LV (left ventricular) mural thrombus 10/30/2006 12/28/2017 Tobacco use disorder 09/07/2006 010 Acute inferior myocardial infarction 08/19/2006 12/11/2008 Overview: Modified by Acute [place] Protocol #5. [facility] right coronary bare metal stents EXAMINATION OF PARTICIPANT I N CLINICAL TRIAL - [facility] 08/19/2006 09/04/2009 Overview: Renamed Per Clinical Trials Billing Project. [facility] AMI clinical trial 263 Single blind trial comparing heparin and IIB/IIIA with bivalirudin, and Taxus vs bare metal stent. Patient Follow-up for 5 years Snag Grinder: Trent Verduzco [phone] [facility] Clinical Trial*[id number] 08/19/2006 09/08/2014 Overview: Renamed Per Clinical Trials Billing Project. [facility] AMI clinical trial 263 Single blind trial comparing heparin and IIB/IIIA with bivalirudin, and Taxus vs bare metal stent. Patient Follow-up for 5 years Snag Grinder: Trent Verduzco [phone] Menopause 08/29/2002 02/23/2017 LOC PRIM [id number] 05/29/200206/23 Dyslipidemia, goal to be determined 05/29/2002 05/07/2009 Overview: Per Lipid Taxonomy. 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 02/23/2017 documented as of this encounter (statuses as of 08/05/2023) Immunizations Name Administration Dates Next Due COVID-19 [...] Encounter - Marilyn Nogueira III, MD - 08/05/2023 10:55 AM EDTSigned Prescriptions: Disp Refills oxyCODONE HCl 5 MG Oral Tablet (Oxy IR) 100 Ta*0 Sig: Take 1 Tablet by mouth every 6 hours as needed (pain).Authorizing Provider: MARILYN NOGUEIRA III * Telephone Encounter - Kriss Card [facility] - 08/05/2023 7:18 AM EDTPending Prescriptions: Disp Refills oxyCODONE HCl 5 MG Oral Tablet (Oxy IR) 100 Ta*0 Sig: Take 1 Tablet by mouth every 6 hours as needed (pain). * Telephone Encounter - Kriss Card RPh - 08/05/2023 7:17 AM EDT I have reviewed the patients controlled substance dispensing history in the Prescription Drug Monitoring Program in compliance with the [facility] regulations before prescribing a controlled substance. PDMP checked on 08/05/2023. Pending Prescriptions: Disp Refills oxyCODONE HCl 5 MG Oral Tablet (Oxy IR) 100 Ta*0 Sig: Take 1 Tablet by mouth every 6 hours as needed (pain). Last Visit: 07/28/2023 (in office), 08/24/2020 (telemedicine) Next Visit: 11/02/2023 Date medication was last filled: 07/14 Date medication is due for refill: 08/06 Pharmacy: [facility], [address] [place] Is this request for [...] Review. Please approve if appropriate. Thank you, Kriss Card, PharmD Clinical Pharmacist [facility] ([facility]) (formerly Telepharmacy) [phone] 08/05/2023, 7:17 AM * Telephone Encounter - Sury Álvarez, director of food and beverage services - 08/03/2023 3:27 PM EDT Did you pend patient's preferred pharmacy and medication before forwarding?yes Pharmacy: [facility], [address] [place] Pending Prescriptions: Disp Refills [...] appointment Last date the medication was ordered: Is this request for a controlled substance?Yes, What was the last refill date w/ quantity 100 and dosage 5mg and [...] 2:30 PM EDT Office Visit Vascular Surgery, [facility] [address] [place] [address] Trent Stewart MD [address] [place] [address] 08/29/2023 3:40 PM EDT Office Visit Neurology [facility] 200 [facility] [place] [address] Ashlie Swift MD 200 [facility] [place] [address] 09/07/2023 11:00 AM EDT Office Visit Otolaryngology [facility] [address] [place] [address] Laurie Herrmann PA-C [address] [place] [address] 11/02/2023 1:40 PM EDT Office Visit [facility] [address] [place] [address] Erica Marsh MD [address] [place] [address] Scheduled Procedures Name Priority Associated Diagnoses Date/Ti [...] 023, 02/21/2022, 07/23/2019 CKD PHOS USE SMARTSET 83204 03/02/202402/19, 10/07/2022, 02/21/2022, Additional history exists CKD HGB USE SMARTSET 43757 07/18/202407/18, 03/15/2023, 03/02/2023, Additional history exists O2 [...] the patient have Health Care Power of Side Door Worker? No Care Teams Licensed Tax Consultant Relationship Specialty Start Date End Date Marilyn Nogueira III, MD [address] [place] [address] PCP - General Family Medicine 06/28/18 documented as of this encounter
--- OUTSIDE RECORDS SUMMARY | 2023-10-18 15:36 | External Medical Summary | Summary of Care ---
Author Name Unknown Organization [facility] Address [address] [facility] [place] [address] Phone [phone] Care Team Providers Care Senior Front End Developer Name Role Phone Loli NORWOOD MD, Roman Barraza Primary Care Provider [phone] Reason for Visit * Reason Comments Outpatient Testing Encounter Details Date Type Department Care Team (Late st Contact Info) Description 07/18/2023 10:10 AM EST Laboratory Laboratory, [facility] [address] [address] [facility] [address] [place] [address] [employer] Other*[id number]; Dyslipidemia, goal LDL below 70; History of ischemic cardiomyopathy; Paroxysmal atrial fibrillation (HCC); Iron deficiency anemia, unspecified iron deficiency anemia type Allergies Active Allergy Reactions Criticality Noted Date Comments Isosorbide Mononitrate 12/24/2007 Severe headaches Nsaids 05/29/2002 Tramadol Hcl Nausea/vomiting Low 01/09/2008 UGI distress documented as of this encounter (statuses as of 07/18/2023) Medications Medication Sig Dispensed Refills Start Date [...] as of this encounter (statuses as of 07/18/2023) Active Problems Problem Noted Date Diagnosed Date [...] /min) 05/11/2018 Coronary artery disease invo lving lower [...] 08/07/2013 Last Assessment & Plan: Followed by [facility] cardiology History of colonic polyps 09/04/2012 Overview: 09/01/2012: adenoma, repeat in 3 years ICD-10 update of inactive term DYSLIPIDEMIA, GOAL LDL BELOW 100 05/07/2009 Overview: Per Lipid Taxonomy. OLD MYOCARDIAL INFARCT 12/11/2008 Overview: Modified by Acute [place] Protocol #5. [facility] right coronary bare metal stents S/P angioplasty with stent 09/07/2006 History of tobacco use documented as of this encounter (statuses as of 07/18/2023) Resolved Problems Problem Noted Date Diagnosed Date [...] for Patients with Cardiovascular Disease Project #: [id number] PI: Peyton Conn MD [phone] [employer] CARDIO RESEARCH OTHER*[id number] 01/15/2007 06/28/2016 Overview: Renamed Per Clinical Trials Billing Project. Study Title: Genomic Markers for Patients with Cardiovascular Disease Project #: [id number] PI: Peyton Conn MD [phone] LV (left ventricular) mural thrombus 10/30/2006 12/28/2017 Tobacco use disorder 09/07/2006 010 Acute inferior myocardial infarction 08/19/2006 12/11/2008 Overview: Modified by Acute [place] Protocol #5. [facility] right coronary bare metal stents EXAMINATION OF PARTICIPANT I N CLINICAL TRIAL - HORIZONS 08/19/2006 09/04/2009 Overview: Renamed Per Clinical Trials Billing Project. [facility] AMI clinical trial 263 Single blind trial comparing heparin and IIB/IIIA with bivalirudin, and Taxus vs bare metal stent. Patient Follow-up for 5 years Ambulatory Analyst: Trent Verduzco [phone] [facility] Clinical Trial*[id number] 08/19/2006 09/08/2014 Overview: Renamed Per Clinical Trials Billing Project. [facility] AMI clinical trial 263 Single blind trial comparing heparin and IIB/IIIA with bivalirudin, and Taxus vs bare metal stent. Patient Follow-up for 5 years Ambulatory Analyst: Trent Verduzco [phone] Menopause 08/29/2002 02/23/2017 LOC PRIM [id number] 05/29/200206/23 Dyslipidemia, goal to be determined 05/29/2002 05/07/2009 Overview: Per Lipid Taxonomy. 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 02/23/2017 documented as of this encounter (statuses as of 07/18/2023) Immunizations Name Administration Dates Next Due COVID-19 [...] 9:00 AM EST Office Visit Family Practice [facility] [address] [facility] [place] [address] Erica Marsh MD [address] [facility] [place] [address] 08/01/2023 9:30 AM EDT Imaging Vascular Lab, [facility] [address] [facility] [address] [facility] [place] [address] 08/09/2023 2:30 PM EDT Office Visit Vascular Surgery, [facility] [address] [facility] [place] [address] Trent Stewart MD [address] [place] [address] 08/29/2023 3:40 PM EDT Office Visit Neurology [facility] [address] [facility] [place] [address] Ashlie Swift MD [address] [facility] [place] [address] 09/07/2023 11:00 AM EDT Office Visit Otolaryngology [facility] [address] [place] [address] Laurie Herrmann PA-C [address] [place] [address] Pending Results Name Type Priority Associated Diagnoses Date /Time MYCODE SUBSEQUENT ADULT Lab Routine [employer] Other*[id number] 07/18/2023 9:59 AM EST CBC Lab Routine Dyslipidemia, goal LDL below 70 History of ischemic cardiomyopathy Paroxysmal atrial fibrillation (HCC) Iron deficiency anemia, unspecified iron deficiency anemia type 07/18/2023 9:59 AM EST COMPREHENSIVE METABOLIC PANEL Lab Routine Dyslipidemia, goal LDL below 70 History of ischemic cardiomyopathy Paroxysmal atrial fibrillation (HCC) Iron deficiency anemia, unspecified iron deficiency anemia type 07/18/2023 9:59 AM EST MYCODE SST1 Lab Routine [employer] Other*[id number] 07/18/2023 9:59 AM EST MYCODE SST2 Lab Routine [employer] Other*[id number] 07/18/2023 9:59 AM EST Scheduled Procedures Name Priority Associated Diagnoses Date/Ti [...] 023, 02/21/2022, 07/23/2019 CKD PHOS USE SMARTSET 27713 03/02/202402/19, 10/07/2022, 02/21/2022, Additional history exists CKD HGB USE SMARTSET 77582 03/15/202403/15, 03/02/2023, 03/02/2023, Additional history exists O2 ASSESSMENT COMPLETED IN PAST YEAR FOR COPD 07/06/2024 07/06/2023 COLONOSCOPY-EVERY 5 YRS AGES 18-100 07/03/2028 07/03/2023, 08/28/2012 DTaP,Tdap,and Td Vaccines (4 - Td or Tdap) 06/02/2032 06/02/2022, 02/11/2011, 05/22/1995 Pneumococcal Vaccine: 65+ Years Completed 02/23/2017, 10/22/2014, 02/26/2007 Hepatitis B Completed 04/02/2018, 09/19, 07/24/2017 Zoster Vaccines Completed 01/20/2020, 07/23/2019 Influenza Vaccine (FLU shot) Completed 02/27/2023, 02/21/2022, 02/03/2020, Additional history exists Colonoscopy Discontinued 07/03/2023, 08/28/2012 [...] this encounter Visit Diagnoses Diagnosis [employer] Other*[id number] Dyslipidemia, goal LDL below 70 Other and unspecified hyperlipidemia History of ischemic cardiomyopathy Paroxysmal atrial fibrillation (HCC) Atrial fibrillation Iron deficiency anemia, unspecified iron deficiency anemia type documented in this encounter Advance Directives [...] the patient have Health Care Power of Magnetic Tape Composer Operator? No Care Teams Senior Front End Developer Relationship Specialty Start Date End Date Roman Ennis III, MD [address] [facility] [place] [address] PCP - General Family Medicine 06/28/18 documented as of this encounter
--- OUTSIDE RECORDS SUMMARY | 2023-10-18 15:36 | External Medical Summary | Summary of Care ---
Author Name Unknown Organization [facility] Address [address] [facility] [address] Phone [phone] Care Team Providers Care Outsole Skiver Name Role Phone Loli NORWOOD MD, Roman Barraza Primary Care Provider [phone] Reason for Visit * Reason Onset Date Comments Appointment 06/29/2023 Encounter Details Date Type Department Care Team (Late st Contact Info) Description 06/29/2023 Telephone Gastroenterology, [facility] [address] [place] [address] Yolanda Pollack CRNP [address] [place] [address] Appointment Allergies Active Allergy Reactions Criticality Noted Date Comments Isosorbide Mononitrate 12/24/2007 Severe headaches Nsaids 05/29/2002 Tramadol Hcl Nausea/vomiting Low 01/09/2008 UGI distress documented as of this encounter (statuses as of 07/20/2023) Medications Medication Sig Dispensed Refills Start Date [...] the morning. 30 Tablet 5 3 Active Pantoprazole Sodium 40 [...] needed for Nausea. 20 Tablet 0 3 07/18/19 24 Discontinued(Ref ill) Lisinopril 20 MG Oral Tablet (Prinivil)Indicatio ns:HTN, goal to be determined Take 1 Tablet by mouth in the morning. 90 Tablet 3 3 07/06/19 24 Discontinued Metoprolol Succinate ER 25 MG Oral Tablet Extended Release 24 Hour (toPROL XL) Take 1 Tablet by mouth in the morning and 1 Tablet before bedtime. 200 Tablet 5 3 07/06/19 24 Discontinued(Med ication List Clean Up) hydrOXYzine HCl 25 MG Oral Tablet Take 1 Tablet by mouth 3 times a day as needed. 0 07/06/19 24 Discontinued(Med ication List Clean Up) oxyCODONE HCl 5 MG Oral Tablet (Oxy IR)Indications:Motor Electrician fernando pain syndrome Take 1 Tablet by mouth every 6 hours as needed (pain). 100 Tablet 0 4 07/13/19 24 Discontinued(Ref ill) documented as of this encounter (statuses as of 07/20/2023) Active Problems Problem Noted Date Diagnosed Date [...] /min) 05/11/2018 Coronary artery disease invo lving kaw coronary artery of kaw heart without angina pectoris 05/08/2018 Anxiety state 05/08/2018 ADVANCE DIRECTIVE INFORMATION 03/23/2018 Overview: No, Advance Directive brochure offered , patient declined. Incomplete uterovaginal prolapse 09/29/2017 Cystocele, lateral 09/29/2017 Vaginal atrophy 09/29/2017 Hepatitis C antibody test positive 05/09/2017 Overview: HCV treated; SVR Confirmed 03/05/2018 Controlled substance agreement signed 02/23/2017 Biventricular implantable ca rdioverter-defibrillator in situ 08/07/2013 Last Assessment & Plan: Followed by [facility] cardiology History of colonic polyps 09/04/2012 Overview: 09/01/2012: adenoma, repeat in 3 years ICD-10 update of inactive term DYSLIPIDEMIA, GOAL LDL BELOW 100 05/07/2009 Overview: Per Lipid Taxonomy. OLD MYOCARDIAL INFARCT 12/11/2008 Overview: Modified by Acute [place] Protocol #5. [facility] right coronary bare metal stents S/P angioplasty with stent 09/07/2006 History of tobacco use documented as of this encounter (statuses as of 07/20/2023) Resolved Problems Problem Noted Date Diagnosed Date [...] for Patients with Cardiovascular Disease Project #: [id number] PI: Peyton Conn MD [phone] GENOMICS CARDIO RESEARCH OTHER*[id number] 01/15/2007 06/28/2016 Overview: Renamed Per Clinical Trials Billing Project. Study Title: Genomic Markers for Patients with Cardiovascular Disease Project #: [id number] PI: Peyton Conn MD [phone] LV (left ventricular) mural thrombus 10/30/2006 12/28/2017 Tobacco use disorder 09/07/2006 010 Acute inferior myocardial infarction 08/19/2006 12/11/2008 Overview: Modified by Acute [place] Protocol #5. [facility] right coronary bare metal stents EXAMINATION OF PARTICIPANT I N CLINICAL TRIAL - HORIZONS 08/19/2006 09/04/2009 Overview: Renamed Per Clinical Trials Billing Project. [facility] AMI clinical trial 263 Single blind trial comparing heparin and IIB/IIIA with bivalirudin, and Taxus vs bare metal stent. Patient Follow-up for 5 years Student Loan Counselor: Trent Verduzco [phone] [facility] Clinical Trial*[id number] 08/19/2006 09/08/2014 Overview: Renamed Per Clinical Trials Billing Project. [facility] AMI clinical trial 2004- 8948 Single blind trial comparing heparin and IIB/IIIA with bivalirudin, and Taxus vs bare metal stent. Patient Follow-up for 5 years Student Loan Counselor: Trent SmallSarah Verduzco [phone] Menopause 08/29/2002 02/23/2017 LOC PRIM [id number] 05/29/200206/23 Dyslipidemia, goal to be determined 05/29/2002 05/07/2009 Overview: Per Lipid Taxonomy. 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 02/23/2017 documented as of this encounter (statuses as of 07/20/2023) Immunizations Name Administration Dates Next Due COVID-19 [...] encounter Miscellaneous Notes * Telephone Encounter - Tiarra Titus OSA - 07/20/2023 10:43 AM EST Letter sent OPAL Hernandez 07/20/2023 10:44 AM * Telephone Encounter - Lisa Mcnulty OSA - 06/29/2023 2:48 PM EST Talked with daughter in law and she is still in and will call the office to set up an egd and a colonoscopy. * Telephone Encounter - Yolanda Pollack CRNP - 06/29/2023 10:46 AM EST Pt admitted at [facility] w anemia wo overt GI bleeding. Pls contact next week to offer EGD and colonoscopy OSCAR Smith documented in this encounter Plan of Treatment Upcoming Encounters Date Type Department Care Team (Late st Contact Info) Description 07/28/2023 9:00 AM EST Office Visit Family Practice [facility] [address] [facility] [place] [address] Erica Marsh MD [address] [facility] [address] 08/01/2023 9:30 AM EDT Imaging Vascular Lab, [facility] 2nd Floor, [place] [address] [facility] [place] [address] 08/09/2023 2:30 PM EDT Office Visit Vascular Surgery, [facility] [address] [facility] [place] [address] Trent Stewart MD [address] [place] [address] 08/29/2023 3:40 PM EDT Office Visit Neurology [facility] [address] [place] [address] Ashlie Swift MD [address] [facility] [place] [address] 09/07/2023 11:00 AM EDT Office Visit Otolaryngology [facility] [address] [facility] [place] [address] Laurie Herrmann PA-C [address] [facility] [place] [address] Scheduled Orders Name Type Priority Associated Diagnoses Orde r Schedule EGD, FLEXIBLE, DIAGNOSTIC Procedures Routine Anemia, unspecified type Ordered: 06/29/2023 COLONOSCOPY, DIAGNOSTIC (RECTUM) Procedures Routine Anemia, unspecified type Ordered: 06/29/2023 Scheduled Procedures Name Priority Associated Diagnoses Date/Ti [...] 023, 02/21/2022, 07/23/2019 CKD PHOS USE SMARTSET 72068 03/02/202402/19, 10/07/2022, 02/21/2022, Additional history exists CKD HGB USE SMARTSET 95483 07/18/202407/18, 03/15/2023, 03/02/2023, Additional history exists O2 [...] as of this encounter Visit Diagnoses Diagnosis Anemia, unspecified type- Primary documented in this encounter Advance Directives [...] the patient have Health Care Power of Loan Counselor? No Care Teams Outsole Skiver Relationship Specialty Start Date End Date Roman Ennis III, MD [address] [place] [address] PCP - General Family Medicine 06/28/18 documented as of this encounter
--- OUTSIDE RECORDS SUMMARY | 2023-10-18 15:36 | External Medical Summary | Summary of Care ---
Author Name Unknown Organization [facility] Address [address] [place] [address] Phone [phone] Care Team Providers Care Dress Designer Name Role Phone Loli NORWOOD MD, Roman Barraza Primary Care Provider [phone] Reason for Visit * Reason Comments Follow Up Encounter Details Date Type Department Care Team (Late st Contact Info) Description 07/18/2023 9:00 AM EST Office Visit Cardiology, [facility] [address] [place] [phone] Nikole Crenshaw PA-C [address] [place] [phone] History of ischemic cardiomyopathy*; Dyslipidemia, goal LDL below 70; Paroxysmal atrial fibrillation (HCC); Iron deficiency anemia, unspecified iron deficiency anemia type Allergies Active Allergy Reactions Criticality Noted Date Comments Isosorbide Mononitrate 12/24/2007 Severe headaches Nsaids 05/29/2002 Tramadol Hcl Nausea/vomiting Low 01/09/2008 UGI distress documented as of this encounter (statuses as of 07/25/2023) Medications Medication Sig Dispensed Refills Start Date [...] needed for Nausea. 20 Tablet 0 02/27/2023 4 Discontinue d(Refill) Ferrous Sulfate 5 MG/20ML Oral Solution Take 325 mg by mouth every afternoon. 0 07/04/2023 4 Discontinue d(Patient preference/ discontinua tion) documented as of this encounter (statuses as of 07/25/2023) Active Problems Problem Noted Date Diagnosed Date [...] [facility] g/dL -- 8.4* Medication Regimen: Beta Ulna Therapy: Metoprolol Succinate (ER) BREANNE Inhibitor/ARB Therapy: [...] /min) 05/11/2018 Coronary artery disease invo lving chilkat coronary artery of chilkat heart without angina pectoris 05/08/2018 Anxiety state [...] Overview: Modified by Acute SC Protocol #5. [facility] right coronary bare metal stents S/P angioplasty with stent 09/07/2006 History of tobacco use documented as of this encounter (statuses as of 07/25/2023) Resolved Problems Problem Noted Date Diagnosed Date [...] for Patients with Cardiovascular Disease Project #: [id number] PI: Peyton Conn MD [phone] GENOMICS CARDIO RESEARCH OTHER*[id number] 01/15/2007 06/28/2016 Overview: Renamed Per Clinical Trials Billing Project. Study Title: Genomic Markers for Patients with Cardiovascular Disease Project #: [id number] PI: Peyton Conn MD [phone] LV (left ventricular) mural thrombus 10/30/2006 12/28/2017 Tobacco use disorder 09/07/2006 010 Acute inferior myocardial infarction 08/19/2006 12/11/2008 Overview: Modified by Acute SC Protocol #5. [facility] right coronary bare metal stents EXAMINATION OF PARTICIPANT I N CLINICAL TRIAL - HORIZONS 08/19/2006 09/04/2009 Overview: Renamed Per Clinical Trials Billing Project. [facility] clinical trial 263 Single blind trial comparing heparin and IIB/IIIA with bivalirudin, and Taxus vs bare metal stent. Patient Follow-up for 5 years Varnish Remover: Trent Verduzco [phone] [facility] Clinical Trial*[id number] 08/19/2006 09/08/2014 Overview: Renamed Per Clinical Trials Billing Project. [facility] AMI clinical trial 263 Single blind trial comparing heparin and IIB/IIIA with bivalirudin, and Taxus vs bare metal stent. Patient Follow-up for 5 years Varnish Remover: Trent Sevilla Verduzco [phone] Menopause 08/29/2002 02/23/2017 LOC PRIM [id number] 05/29/200206/23 Dyslipidemia, goal to be determined 05/29/2002 05/07/2009 Overview: Per Lipid Taxonomy. 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 02/23/2017 documented as of this encounter (statuses as of 07/25/2023) Immunizations Name Administration Dates Next Due COVID-19 [...] Sign Reading Time Taken Comments Blood Pressure 124/72 07/18/2023 9:04 AM EST Pulse 56 07/18/2023 9:04 AM EST Temperature - - Respiratory Rate - - Oxygen Saturation 92% 07/18/2023 9:04 AM EST Inhaled Oxygen Concentration - - Weight 72.1 kg (159 lb) 07/18/2023 9:04 AM EST Height - - Body Mass Index 29.11 02/27/2023 4:30 PM EDT documented in this encounter Progress Notes * Nikole Crenshaw PA-C - 07/18/2023 9:06 AM EST Images from the original note were not included. Cardiology Hospital F/U: HPI: Patient is a 78-year-old female here today for close cardiology hospital f/u. Last clinic evaluation approx 6 months ago with the undersigned. History includes: ICM S/P inferior posterior SC 08/2006 S/P PCI to RCA and 4 [...] fib DVT AAA COPD Chronic anemia Patient admitted to [facility] In June 2023 with worsening shortness of breath. Diagnosed with symptomatic anemia. Hemoglobin was 6.8 on arrival improving to 10.4 after 2 units packed red blood cells. Cardiology was consulted and followed during admission. EKG was without acute change. Echo demonstrated preserved LV systolic function with evidence of old SC. Ongoing medical management recommended. Eliquis was resumed for history of PAF and stroke prophylaxis after anemia improved. Plavix was alsoresumed without aspirin. Metoprolol was increased to 50 mg twice per day due to paroxysmal A-fib. Lisinopril was also reduced to 10 mg daily due to borderline hypotension. Patient presents today feeling great. She reports she has more energy and shortness of breath has resolved. No exertional chest pain. Tolerating medications.No signs or symptoms of recurrent GI bleeding. Blood pressure is well-controlled. No orthopnea, PND, lower extremity edema. Voices no acute cardiac concerns today. Review of Systems: See HPI for pertinent [...] Vaginal atrophy N95.2 Coronary artery disease involving chilkat coronary artery of chilkat heart without angina pectoris I25.10 Anxiety state F41.1 Kidney disease, chronic, stage III (GFR 30-59 ml/min) ([facility]) N18.30 History of ischemic cardiomyopathy Z86.79 COPD, group C, by GOLD 2017 classification ([facility]) J44.9 Essential hypertension with goal blood pressure less than 140/90 I10 Carpal tunnel syndrome, bilateral G56.03 Trigger ring finger of right hand M65.341 Trigger ring finger of left hand M65.342 History of 2019 novel coronavirus disease (COVID-19) Z86.16 Abdominal aortic aneurysm (AAA) without rupture ([facility]) I71.40 Type 2 diabetes mellitus with hemoglobin A1c goal of less than 8.0% (HCC) E11.9 Benign hypertension with CKD (chronic kidney disease) stage III (HCC) I12.9, N18.30 Cigarette smoker F17.210 Infrarenal abdominal aortic aneurysm (AAA) without rupture (HCC) I71.43 Type 2 diabetes mellitus with diabetic chronic kidney disease (HCC) E11.22 Chronic combined systolic and diastolic congestive heart failure ([facility]) I50.42 Monoplegia, upper limb, nondominant side S/P CVA (cerebrovascular acc) ([facility]) I69.339 Right leg DVT ([facility]) I82.401 Hypertensive heart and kidney disease 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 and stage 3 chronic kidney disease (HCC) I13.0, I50.42, N18.30 Atrial fibrillation ([facility]) I48.91 Other disorders of phosphorus metabolism E83.39 Breakthrough seizure ([facility]) G40.919 Hip pain, left M25.552 Food insecurity Z59.41 Social History Tobacco Use Smoking status: Every [...] right coronary artery 3 bare metal stents, [facility] CARPAL TUNNEL SURGERY Bilateral 02/20/2020 NEUROPLASTY MEDIAN NERVE AT CARPAL TUNNEL performed by Lore Richey DO at OR [facility] COLONOSCOPY, DIAGNOSTIC (RECTUM) N/A 07/03/2023 hemorrhoids/biopsies show adenomatous polyps/recall 5 years/Colonoscopy/[place] EGD, FLEXIBLE, DIAGNOSTIC N/A 07/03/2023 biopsies normal/EGD/MN INSERT PULSE GENERATOR, EXISTING SINGLE LEAD 08/06/2013 NEW ICD GENERATOR ONLY performed by Tylor Loya MD at [facility] LAP;W/HYSTERECTOMY 02/04/2020 LEFT VENTRICULAR PACING ELECTRODE, ADD-ON 11/24/2008 CS LEAD PLACEMENT WITH INITIAL DEVICE performed by TYLOR LOYA at [facility] MAMMOGRAM - BILATERAL 07/17/2002 Birad Code 2 PACEMAKER-DEFIBRILLATOR ELECTRODE INSERT, SINGLE 08/09/2013 REPLACE LEAD (1 LEAD) performed by Monik Arnold IV, MD at [facility] REMOVE CATARACT, INSERT LENS PROSTH Right REMOVE GALLBLADDER 1990s Cholecystectomy, [place] TENDON SHEATH INCISION, FINGER Bilateral 02/20/2020 TRIGGER FINGER RELEASE performed by Lore Richey DO at OR [facility] VAGINAL DELIVERY ONLY times 5 Review of [...] mouth in the morning. 30 Tablet 5 Pantoprazole Sodium 40 MG Oral [...] by mouth before bed. 120 Capsule 11 Metoprolol Succinate ER 50 MG Oral Tablet Extended Release 24 Hour (toPROL XL) Take 1 Tablet by mouth in the morning and 1 Tablet before bedtime. Lisinopril 10 MG Oral Tablet (Prinivil) Take 1 Tablet by mouth in the morning. oxyCODONE HCl 5 MG Oral Tablet (Oxy IR) Take 1 Tablet by mouth every 6 hours as needed (pain). 100 Tablet 0 Ferrous Sulfate 5 MG/20ML Oral Solution Take 325 mg by mouth every afternoon. No current facility-administered medications for this visit. Objective BP 124/72 | Pulse 56 | Wt 72.1 kg (159 lb) | SpO2 92% | BMI 29.11 kg/m | BSA 1.78 m General: NAD. A+Ox3. HEENT: Normocephalic. Atraumatic. [...] NEURO: No focal deficits. PSYCH: Normal. RESULTS: Echocardiogram report reviewed dated 06/29/2023 at [facility]: Ejection fraction 60 to 65%. Abnormal septal and apical wall motion abnormality reflects pacemaker activation. Base inferior wall is hypokinetic. Aortic valve sclerosis without significant aortic valvular stenosis. Mild AI. Trace MR. Mild TR. Estimated systolic pulmonary pressure of 36 mmHg. Grade 2 diastolic dysfunction. Device interrogation reviewed from April 2023: See scanned report Echo report reviewed dated December 2022: Nuclear [...] high (L): Data is abnormally low ASSESSMENT: 78 year old female 1. BIV ICD - Gen change in November 2020, appropriate function/battery longevity 2. PAF. Continue metoprolol and Eliquis 3. ICM S/P BIV ICD 11/24/2008 gent change 08/06/2013 after the gent change the RV coil impedence was elevated and found to have the high voltage plug not in the port entirely so had a revision the next day 4. CAD S/P inferior posterior SC 08/2006 S/P PCI to RCA and 4 BMS 12/2006 5. Apical thrombus - resolved 6. LBBB 7. HTN 8. HLD 9. Prior tobacco use 10. Hepatitis C 11. CKD stage III 12. COPD 13. COVID 19 07/2020 (was hospitalized for 22 days) 14. HFpEF 15. Recent admission for anemia. Now on Eliquis and plavix (no ASA) PLAN: Stable cardiac symptoms. Continue metoprolol and Eliquis. Continue plavix for history of CAD Preserved EF on recent echo. Recheck labs today. Monitor CBC with recent anemia. Continue iron. Patient is being evaluated in the cardiology office for ongoing care/risk management for CAD; PAF; CHF. I spent a total of 40 minutes on the date of service in preparation, delivery, and documentation ofthe care provided to Radha Tong excluding any time spent in the performance of separately billed services. The patient agrees to the above plan and will call with additional questions or concerns. ER with all emergencies advised. Follow-up: Return in about 6 months (around 01/16/2024). | Check-out note: Patient has appt downstairs, then is coming back up for labs Nikole Crenshaw PA-C Department of Cardiology This chart was completed in part utilizing [employer] Speech Voice Recognition Software. Grammatical errors, random [...] documented in this encounter Nursing Notes * Oma Walker CMA - 07/18/2023 9:02 AM EST Examination Room: 1 Name: Radha Tong Date of : (1945) Reason for Visit: 6m Interim Hospitalization(s): ER- low H&H 2-7/2-13 Problems/Concerns: denied Chest Pain/SOB: denied My [facility] a way you can [...] 9:00 AM EST Office Visit Family Practice [facility] [address] [place] [address] Erica Marsh MD [address] [facility] [place] [address] 08/01/2023 9:30 AM EDT Imaging Vascular Lab, [facility] 2nd Floor, [place] [address] [facility] [place] [address] 08/09/2023 2:30 PM EDT Office Visit Vascular Surgery, [facility] [address] [facility] [place] [address] Trent Stewart MD [address] [place] [address] 08/29/2023 3:40 PM EDT Office Visit Neurology [facility] [address] [place] [address] Ashlie Swift MD [address] [facility] [place] [address] 09/07/2023 11:00 AM EDT Office Visit Otolaryngology [facility] [address] [facility] [place] [address] Laurie Herrmann PA-C [address] [facility] [place] [address] Scheduled Procedures Name Priority Associated Diagnoses Date/Ti me COLONOSCOPY FLEXIBLE PROXIMA L DIAGNOSTIC Recall History of colonic polyps Health Maintenance Due Date Last Done Comments DISCUSS TOBACCO CESSATION (REFER TO SMARTSET #5481) 1945 Alpha-1 Antitrypsin 1965 Diabetic Foot Exam 1965 DXA Scan 09/04/2016 09/04/2013, 09/04/2013 *ADVANCE DIRECTIVE NOT ON FILE 06/09/2019 COVID-19 Vaccine ( season) 2023 11/12/2020, 10/01/2020 Depression Screening 06/02/2023 06/02/2022 Diabetic Eye Exam 07/21/2023 07/20/2022 HbA1c 09/01/2023 03/02/2023, 12/21, 08/19/2006, Additional history exists GFR 01/16/2024 07/18/2023, 03/23, 03/15/2023, Additional history exists Albumin/Creatinine Ratio 03/02/2024 023, 02/21/2022, 07/23/2019 CKD PHOS USE SMARTSET 37408 03/02/202402/19, 10/07/2022, 02/21/2022, Additional history exists CKD HGB USE SMARTSET 01081 07/18/202407/18, 03/15/2023, 03/02/2023, Additional history exists O2 [...] as of this encounter Results * (ABNORMAL) COMPREHENSIVE METABOLIC PANEL (07/18/2023 9:59 AM EST) BUN 36(H) 6 - 20 mg/dL 07/18/2023 11:45 AM EST [facility] Creatinine 1.4(H) 0.5 - 1.0 mg/dL 07/18/2023 11:45 AM EST [facility] Estimated Glomerular Filtration Rate 38(L) >=60 mL/min 07/18/2023 11:45 AM EST [facility] Comment:eGFR is calculated b ased on the CKD-EPI 2020 equation Sodium 141 135 - 146 mmol/L 07/18/2023 11:45 AM EST [facility] Potassium 4.7 3.5 - 5.1 mmol/L 07/18/2023 11:45 AM EST [facility] Chloride 102 98 - 107 mmol/L 07/18/2023 11:45 AM EST [facility] CO2 26 22 - 32 mmol/L 07/18/2023 11:45 AM EST [facility] Anion Gap 13 7 - 15 mmol/L 07/18/2023 11:45 AM EST [facility] Glucose 89 70 - 120 mg/dL 07/18/2023 11:45 AM EST [facility] Albumin 4.3 3.8 - 5.0 g/dL 07/18/2023 11:45 AM EST [facility] AST 17 10 - 35 U/L 07/18/2023 11:45 AM EST [facility] Alkaline Phosphatase 70 35 - 130 U/L 07/18/2023 11:45 AM EST [facility] Bilirubin, Total 0.4 <=1.2 mg/dL 07/18/2023 11:45 AM EST [facility] Calcium 8.9 8.4 - 10.2 mg/dL 07/18/2023 11:45 AM EST [facility] Protein 6.6 6.0 - 8.3 g/dL 07/18/2023 11:45 AM EST [facility] ALT 12 10 - 35 U/L 07/18/2023 11:45 AM EST LAB[facility]ORY [facility]10 Blood Venous blood specimen / Unknown Venipuncture / Unknown 07/18/2023 9:59 AM EST 07/18/2023 9:59 AM EST Nikole Crenshaw PA-C LAB BLOOD [facility] [address] [facility] [place] [address] * (ABNORMAL) CBC (07/18/2023 9:59 AM EST) WBC 4.58 4.00 - 10.80 K/uL 07/18/2023 10:27 AM EST LABORATORY [facility]10 RBC 4.40 3.85 - 5.15 M/uL 07/18/2023 10:27 AM EST LAB[facility]ORY [facility]10 HGB 11.6(L) 12.0 - 15.3 g/dL 07/18/2023 10:27 AM EST LAB[facility]ORY [facility]10 HCT 38.9 36.0 - 45.2 % 07/18/2023 10:27 AM EST LAB[facility]ORY [facility]10 MCV 88.4 81.5 - 97.5 fL 07/18/2023 10:27 AM EST LAB[facility]ORY [facility]10 MCH 26.4 27.0 - 34.0 pg 07/18/2023 10:27 AM EST LAB[facility]ORY [facility]10 MCHC 29.8 32.0 - 36.0 g/dL 07/18/2023 10:27 AM EST LAB[facility]ORY [facility]10 RDW 26.2 11.5 - 15.5 % 07/18/2023 10:27 AM EST LAB[facility]ORY [facility]10 PLT 165 140 - 400 K/uL 07/18/2023 10:27 AM EST LAB[facility]ORY [facility]10 MPV 10.6 6.6 - 11.1 fL 07/18/2023 10:27 AM EST LAB[facility]ORY [facility]10 Blood Venous blood specimen / Unknown Venipuncture / Unknown 07/18/2023 9:59 AM EST 07/18/2023 9:59 AM EST Nikole Crenshaw PA-C LAB BLOOD [facility] [address] [place] [address] documented in this encounter Visit Diagnoses Diagnosis History of ischemic cardiomyopathy- Primary Dyslipidemia, goal LDL below 70 Other and unspecified hyperlipidemia Paroxysmal atrial fibrillation (HCC) Atrial fibrillation Iron [...] the patient have Health Care Power of Wood Shop Teacher? No Care Teams Dress Designer Relationship Specialty Start Date End Date Roman Ennis III, MD [address] [place] [address] PCP - General Family Medicine 06/28/18 documented as of this encounter
--- OUTSIDE RECORDS SUMMARY | 2023-10-18 15:36 | External Medical Summary | Summary of Care ---
Author Name Unknown Organization [facility] Address [address] [place] [address] Phone [phone] Care Team Providers Care Furniture Decals Inspector Name Role Phone Loli NORWOOD MD, Roman Barraza Primary Care Provider [phone] Encounter Details Date Type Department Care Team (Late st Contact Info) Description 07/18/2023 Medication Management Elaine Palomares [facility] [address] [place] [address] Mable Gonzalez, [facility] [address] [place] [address] Encounter for medication review* Allergies Active Allergy Reactions Criticality Noted Date [...] /min) 05/11/2018 Coronary artery disease invo lving [place] coronary artery of [place] heart without angina pectoris 05/08/2018 Anxiety state 05/08/2018 ADVANCE DIRECTIVE INFORMATION 03/23/2018 Overview: No, Advance Directive brochure offered , patient declined. Incomplete uterovaginal prolapse 09/29/2017 Cystocele, lateral 09/29/2017 Vaginal atrophy 09/29/2017 Hepatitis C antibody test positive 05/09/2017 Overview: HCV treated; SVR Confirmed 03/05/2018 Controlled substance agreement signed 02/23/2017 Biventricular implantable ca rdioverter-defibrillator in situ 08/07/2013 Last Assessment & Plan: Followed by [facility] History of colonic polyps 09/04/2012 Overview: 09/01/2012: adenoma, repeat in 3 years ICD-10 update of inactive term DYSLIPIDEMIA, GOAL LDL BELOW 100 05/07/2009 Overview: Per Lipid Taxonomy. OLD MYOCARDIAL INFARCT 12/11/2008 Overview: Modified by Acute [place] Protocol #5. [facility] right coronary bare metal stents S/P angioplasty [...] for Patients with Cardiovascular Disease Project #: [id number] PI: Peyton Conn MD [phone] GENOMICS CARDIO RESEARCH OTHER*[id number] 01/15/2007 06/28/2016 Overview: Renamed Per Clinical Trials Billing Project. Study Title: Genomic Markers for Patients with Cardiovascular Disease Project #: [id number] PI: Peyton Conn MD [phone] LV (left ventricular) mural thrombus 10/30/2006 12/28/2017 Tobacco use disorder 09/07/2006 010 Acute inferior myocardial infarction 08/19/2006 12/11/2008 Overview: Modified by Acute [place] Protocol #5. [facility] right coronary bare metal stents EXAMINATION OF PARTICIPANT I N CLINICAL TRIAL - HORIZONS 08/19/2006 09/04/2009 Overview: Renamed Per Clinical Trials Billing Project. [facility] AMI clinical trial 263 Single blind trial comparing heparin and IIB/IIIA with bivalirudin, and Taxus vs bare metal stent. Patient Follow-up for 5 years Lube Worker: Trent Verduzco [phone] [facility] [place] Clinical Trial*[id number] 08/19/2006 09/08/2014 Overview: Renamed Per Clinical Trials Billing Project. [facility] AMI clinical trial 263 Single blind trial comparing heparin and IIB/IIIA with bivalirudin, and Taxus vs bare metal stent. Patient Follow-up for 5 years Lube Worker: Trent Verduzco [phone] Menopause 08/29/2002 02/23/2017 LOC PRIM [id number] 05/29/200206/23 Dyslipidemia, goal to be determined 05/29/2002 [...] this encounter Progress Notes * Mable Gonzalez, [facility] - 07/18/2023 10:28 AM EST Radha Tong is a 78 year old female. Objective: Review of patient's allergies indicates: Allergen Reactions Imdur [Isosorbide Mononitrate] Severe headaches Nsaids Ultram [Tramadol Hcl] Nausea/vomiting UGI distress Current Outpatient Medications - WARNING: List may be incomplete due to filtering Medication Sig Dispense Refill Ferrous Sulfate 325 (65 Fe) MG Oral Tablet Delayed Release Take 1 Tablet by mouth in the morning and 1 Tablet before bedtime. Ondansetron HCl 4 MG Oral Tablet (Zofran) Take 1 Tablet by mouth every 8 hours as needed for Nausea. 20 Tablet 0 oxyCODONE HCl 5 MG Oral Tablet (Oxy IR) Take 1 Tablet by mouth every 6 hours as needed (pain). 100 Tablet 0 Lisinopril 10 MG Oral Tablet (Prinivil) Take 1 Tablet by mouth in the morning. Metoprolol Succinate ER 50 MG Oral Tablet Extended Release 24 Hour (toPROL XL) Take 1 Tablet by mouth in the morning and 1 Tablet before bedtime. Gabapentin 300 MG Oral Capsule (Neurontin) Take one tablet by mouth in the morning and at noon and two tablets by mouth before bed. 120 Capsule 11 Anoro Ellipta 62.5-25 MCG/ACT Inhalation Aerosol Powder Breath Activated (umeclidinium-vilanterol) INHALE ONE PUFF EVERY DAY 180 Blister Dosing Unit 1 Furosemide 40 MG Oral Tablet (Lasix) Take 1 Tablet by mouth daily AND 0.5 Tablets daily at noon. 135 Tablet 3 Apixaban 5 MG Oral Tablet (Eliquis) Take 1 Tablet by mouth 2 times a day. 60 Tablet 3 Atorvastatin Calcium 20 MG Oral Tablet (Lipitor) Take 1 Tablet by mouth in the morning. 90 Tablet 5 Clopidogrel Bisulfate 75 MG Oral Tablet (Plavix) Take 1 Tablet by mouth in the morning. 30 Tablet 5 levETIRAcetam 500 MG Oral Tablet (Keppra) Take 1 Tablet by mouth in the morning and 1 Tablet beforebedtime. 60 Tablet 6 Pantoprazole Sodium 40 MG Oral Tablet Delayed Release (Protonix) TAKE ONE TABLET BY MOUTH DAILY 30 MINUTES BEFORE FIRST meal of THE DAY 90 Tablet 3 traZODone HCl 50 MG Oral Tablet (Desyrel) Take 0.5 Tablets by mouth at bedtime. 30 Tablet 5 Nitroglycerin 0.4 MG Sublingual Tablet Sublingual (Nitrostat) DISSOLVE ONE TABLET UNDER THE TONGUE NEEDED FOR CHEST pain, maximum THREE doses 25 Tablet 5 Cyanocobalamin 1000 MCG Oral Tablet (Cyanocobalamin) Take by mouth 1 Tablet in the morning. 100 Tablet 5 Ventolin HFA 108 (90 Base) MCG/ACT Inhalation Aerosol Solution Inhale 2 Puffs by mouth every 4 hours as needed for Wheezing or Dyspnea. 54 g 1 Immunization History Administered Date(s) Administered COVID-19 mRNA, LNP-s, No Preserve, 2-Dose Series (Moderna) 10/01/2020, 11/12/2020 DT - Diptheria/Tetanus (PEDS) 05/22/1995 H1N1 2009 Influenza, IM 06/08/2009 HEP A - Hepatitis A (Adult > 18 yrs) 07/24/2017, 04/02/2018 Hepatitis B, 20+ yrs 07/24/2017, 09/29/2017, 04/02/2018 Pneumococcal Conjugate Vacc, 13 Valent (Prevnar) 10/22/2014 Pneumococcal Polysaccharide PPV23 (Pneumovax) 02/26/2007, 02/23/2017 Seasonal Influenza Intranasal 03/29/2013 Seasonal Influenza Virus Vaccine, Unspecified Formulation 02/27/2023 Seasonal Influenza, PF, 6 M & above, IM , (FluLaval or Fluzone) 04/02/2018 Seasonal Influenza, Quadrivalent Hd (Fluzone Hd) 02/27/2023 Seasonal Influenza, Quadrivalent, No Preserve, IM 02/23/2017 Seasonal Influenza, Split, IIV3, No Preserve, Inj 04/10/2006 Seasonal Influenza, Split, IIV3, With Preserve, Inj 02/26/2007, 06/08/2009, 02/17/2010, 02/10/2011,03/27/2012, 04/20/2013, 03/26/2014 Seasonal Influenza, Trivalent, Adjuvanted, 65+ yrs 01/31/2019, 02/03/2020, 02/21/2022 TDAP (age 10 and older)(Boostrix) 06/02/2022 TDAP (age 11 and older)(Adacel) 02/11/2011 Zoster Vaccine Recombinant (Shingrix) 07/23/2019, 01/20/2020 TMR Interventions TMR Medication Assessment - Maintenance Inhaler Technique: ANORO ELLIPTA,62.5-25 MCG/ACT,EA TMR Patient Education - Safe Medication Use (Opioid Therapy): OXYCODONE TAB 5MG;OXYCODONE HYDROCHLORIDE,5 MG,EA Incomplete Medication Therapy Recommendations No medication therapy recommendations to display Completed Medication Therapy Recommendations COPD, group C, by GOLD 2017 classification ([facility]) Current Medication: Anoro Ellipta 62.5-25 MCG/ACT Inhalation Aerosol Powder Breath Activated (umeclidinium-vilanterol) Rationale: Patient Education Recommendation: Provide Education - Continue to use Anoro inhaler as demonstrated in office today Hip pain, left Current Medication: oxyCODONE HCl 5 MG Oral Tablet (Oxy IR) Rationale: Medication requires monitoring Recommendation: Continue to Monitor Note: Continue to follow with pain clinic and continue to monitor for opioid safety as per pain management protocol Assessment & Plan Indication, effectiveness, safety and convenience of her medications were reviewed today. The patient's medical conditions were assessed, evaluated, and deemed meeting goals of drug therapy, with thefollowing exceptions. Additional Notes: Summary Time Spent: 1-15 min Supervising pharmacist who provided the service: Mable Allan Information Who was the recipient of the CMR service: beneficiary Language Template for the Patient Takeaway: Croatian I attest that I have reviewed and updated the patient's conditions, allergies, and medications to the best of my ability. Mable Gonzalez [facility] 07/18/2023, 10:28 AM documented in this encounter Miscellaneous Notes * MTM Personal Medication List - Mable Gonzalez [facility] - 07/18/2023 10:25 AM EST Medication How I take it Why I use it Prescriber Anoro Ellipta 62.5-25 MCG/ACT Inhalation Aerosol Powder Breath Activated (umeclidinium-vilanterol) INHALE ONE PUFF EVERY DAY COPD Roman Ennis III, MD Apixaban 5 MG Oral Tablet (Eliquis) Take 1 Tablet by mouth two times a day. Blood thinner Roman Ennis III, MD Atorvastatin Calcium 20 MG Oral Tablet (Lipitor) Take 1 Tablet by mouth in the morning. CholesterolRoman Ennis III, MD Clopidogrel Bisulfate 75 MG Oral Tablet (Plavix) Take 1 Tablet by mouth in the morning. Blood thinner Roman Ennis III, MD Cyanocobalamin 1000 MCG Oral Tablet (Cyanocobalamin) Take by mouth 1 Tablet in the morning. Anemia Roman Ennis III, MD Ferrous Sulfate 325 (65 Fe) MG Oral Tablet Delayed Release Take 1 Tablet by mouth in the morning and 1 Tablet before bedtime. Anemia Self Furosemide 40 MG Oral Tablet (Lasix) Take 1 Tablet by mouth daily AND 0.5 Tablets daily at noon. Swelling Nikole Crenshaw PA-C Gabapentin 300 MG Oral Capsule (Neurontin) Take one tablet by mouth in the morning and at noon and two tablets by mouth before bed. Pain in feet Shama Tang PA-C levETIRAcetam 500 MG Oral Tablet (Keppra) Take 1 Tablet by mouth in the morning and 1 Tablet beforebedtime. Seizures Roman Ennis III, MD Lisinopril 10 MG Oral Tablet (Prinivil) Take 1 Tablet by mouth in the morning. Blood pressure Self Metoprolol Succinate ER 50 MG Oral Tablet Extended Release 24 Hour (toPROL XL) Take 1 Tablet by mouth in the morning and 1 Tablet before bedtime. Heart Rate Self Nitroglycerin 0.4 MG Sublingual Tablet Sublingual (Nitrostat) DISSOLVE ONE TABLET UNDER THE TONGUE NEEDED FOR CHEST pain, maximum THREE doses Chest pain Roman Ennis III, MD Ondansetron HCl 4 MG Oral Tablet (Zofran) Take 1 Tablet by mouth every 8 hours as needed for Nausea. Nausea Roman Ennis III, MD oxyCODONE HCl 5 MG Oral Tablet (Oxy IR) Take 1 Tablet by mouth every 6 hours as needed (pain). PainShane Caterina Cosby, Pantoprazole Sodium 40 MG Oral Tablet Delayed Release (Protonix) TAKE ONE TABLET BY MOUTH DAILY 30 MINUTES BEFORE FIRST meal of THE DAY Heart Burn Roman Ennis III, MD traZODone HCl 50 MG Oral Tablet (Desyrel) Take 0.5 Tablets by mouth at bedtime. Sleep Roman Ennis III, MD Ventolin HFA 108 (90 Base) MCG/ACT Inhalation Aerosol Solution Inhale 2 Puffs by mouth every 4 hours as needed for Wheezing or Dyspnea. Breathing Roman Ennis III, MD * MTM To-Do-List - Mable Gonzalez RPh - 07/18/2023 10:24 AM EST Images from the original note were not included. What we talked about: What I should do: The importance of taking your medication as prescribed Your medicine works best when taken as prescribed. It can be hard to remember to take daily medications. Consider making it a part of your daily routine. Pair taking your medication with something you do every day, like brushing your teeth or eating a meal. Consider setting daily alarms to help remind yourself when it is time to take your medicine. Using a pill box can also help you organize your medicines. Pill boxes allow you to fill each day slot with your daily medicine and help you track when your next dose is due. What we talked about: What I should do: Needs Education Education: Continue to use your inhaler daily with the technique discussed at office visit What we talked about: What I should do: Needing additional monitoring Continue to monitor , continue to come to pain mangement appointments documented in this encounter Plan of Treatment Upcoming Encounters Date Type Department Care Team (Late st Contact Info) Description 07/28/2023 9:00 AM EST Office Visit Family Practice [facility] [address] [facility] [place] [address] Erica Marsh MD [address] [facility] [place] [address] 08/01/2023 9:30 AM EDT [facility] [address] [place] [address] 08/09/2023 2:30 PM EDT Office Visit Vascular Surgery, [facility] [address] [place] [address] Trent Stewart MD [address] [place] [address] 08/29/2023 3:40 PM EDT Office Visit Neurology [facility] [address] [facility] [place] [address] Ashlie Swift MD [address] [facility] [place] [address] 09/07/2023 11:00 AM EDT Office Visit Otolaryngology [facility] [address] [facility] [place] [address] Laurie Herrmann PA-C [address] [facility] [place] [address] Scheduled Procedures Name Priority Associated Diagnoses Date/Ti me COLONOSCOPY FLEXIBLE PROXIMA L DIAGNOSTIC Recall History of colonic polyps Health Maintenance Due Date Last Done Comments DISCUSS TOBACCO CESSATION (REFER TO SMARTSET #7831) 1945 Alpha-1 Antitrypsin 1965 Diabetic Foot Exam 1965 DXA Scan 09/04/2016 09/04/2013, 09/04/2013 *ADVANCE DIRECTIVE NOT ON FILE 06/09/2019 COVID-19 Vaccine ( season) 2023 11/12/2020, 10/01/2020 Depression Screening 06/02/2023 06/02/2022 Diabetic Eye Exam 07/21/2023 07/20/2022 HbA1c 09/01/2023 03/02/2023, 12/21, 08/19/2006, Additional history exists GFR 10/17/2023 04/18/2023, 02/20, 03/13/2023, Additional history exists Albumin/Creatinine Ratio 03/02/2024 023, 02/21/2022, 07/23/2019 CKD PHOS USE SMARTSET 40616 03/02/202402/19, 10/07/2022, 02/21/2022, Additional history exists O2 ASSESSMENT COMPLETED IN PAST YEAR FOR COPD 07/06/2024 07/06/2023 CKD HGB USE SMARTSET 60323 07/18/202407/18, 03/15/2023, 03/02/2023, Additional history exists COLONOSCOPY-EVERY 5 YRS AGES [...] this encounter Visit Diagnoses Diagnosis Encounter for medication review- Primary Encounter for long-term (current) use of other medications documented in this encounter Advance Directives Latest [...] the patient have Health Care Power of Major Account Manager? No Care Teams Furniture Decals Inspector Relationship Specialty Start Date End Date Roman Ennis III, MD [address] [place] [address] PCP - General Family Medicine 06/28/18 documented as of this encounter
--- OUTSIDE RECORDS SUMMARY | 2023-10-18 15:36 | External Medical Summary | Summary of Care ---
Author Name Unknown Organization [facility] Address [address] [facility] [address] Phone [phone] Care Team Providers Care Roller Engraver Name Role Phone Loli NORWOOD MD, Roman Barraza Primary Care Provider [phone] Reason for Visit * Reason Comments Dosage Adjustment In Person (Anticoag Cl inic) Pain Encounter Details Date Type Department Care Team (Late st Contact Info) Description 07/18/2023 9:30 AM EST Office Visit [facility], [facility] [address] [facility] [address] [facility] [address] [facility] [place] [address] Hip pain, left*; Nausea Allergies Active Allergy Reactions Criticality Noted [...] 1 Tablet before bedtime. 0 07/18/2023 Active Ondansetron HCl 4 MG Oral Tablet [...] Diagnosed Date Food insecurity 05/01/2023 Overview: Per [facility] Protocol Hip pain, left 04/28/2023 [...] /min) 05/11/2018 Coronary artery disease invo lving tribal coronary artery of tribal heart without angina pectoris 05/08/2018 Anxiety state 05/08/2018 ADVANCE DIRECTIVE INFORMATION 03/23/2018 Overview: No, Advance Directive brochure offered , patient declined. Incomplete uterovaginal prolapse 09/29/2017 Cystocele, lateral 09/29/2017 Vaginal atrophy 09/29/2017 Hepatitis C antibody test positive 05/09/2017 Overview: HCV treated; SVR Confirmed 03/05/2018 Controlled substance agreement signed 02/23/2017 Biventricular implantable ca rdioverter-defibrillator in situ 08/07/2013 Last Assessment & Plan: Followed by [facility] cardiology History of colonic polyps 09/04/2012 Overview: 09/01/2012: adenoma, repeat in 3 years ICD-10 update of inactive term DYSLIPIDEMIA, GOAL LDL BELOW 100 05/07/2009 Overview: Per Lipid Taxonomy. OLD MYOCARDIAL INFARCT 12/11/2008 Overview: Modified by Acute [place] Protocol #5. [facility] for Patients with Cardiovascular Disease Project #: [id number] PI: Peyton Conn MD [phone] GENOMICS CARDIO RESEARCH OTHER*[id number] 01/15/2007 06/28/2016 Overview: Renamed Per Clinical Trials Billing Project. Study Title: Genomic Markers for Patients with Cardiovascular Disease Project #: [id number] PI: Peyton Conn MD [phone] LV (left ventricular) mural thrombus 10/30/2006 12/28/2017 Tobacco use disorder 09/07/2006 010 Acute inferior myocardial infarction 08/19/2006 12/11/2008 Overview: Modified by Acute [place] Protocol #5. [facility] right coronary bare metal stents EXAMINATION OF PARTICIPANT I N CLINICAL TRIAL - HORIZONS 08/19/2006 09/04/2009 Overview: Renamed Per Clinical Trials Billing Project. [facility] AMI clinical trial 2004- 4 Single blind trial comparing heparin and IIB/IIIA with bivalirudin, and Taxus vs bare metal stent. Patient Follow-up for 5 years Nursing Care Partner: Trent Verduzco [phone] [facility] Clinical Trial*[id number] 08/19/2006 09/08/2014 Overview: Renamed Per Clinical Trials Billing Project. [facility] AMI clinical trial 990 Single blind trial comparing heparin and IIB/IIIA with bivalirudin, and Taxus vs bare metal stent. Patient Follow-up for 5 years Nursing Care Partner: Trent [place] Verduzco [phone] Menopause 08/29/2002 02/23/2017 LOC PRIM [id number] 05/29/200206/23 Dyslipidemia, goal to be determined 05/29/2002 [...] this encounter Progress Notes * Mable Gonzalez, [facility] - 07/18/2023 9:29 AM EST Medication Therapy Disease Management Clinic - Chronic Pain Management Progress Note 07/18/2023 Radha Tong, identified by name and date of , is a 78 year old female being seen for chronic pain management/education. Patient presents to pain MTM clinic for return visit. Referring Physician: Dr. Roman Ennis Medication Agreement: on file 07/18/[address] Ennis Patient's Pharmacy: [facility] Chief Complaint: sciatic pain HPI: Doing well Recent hospitalization for low hemocrit and anemia Notes improvement with gabapentin since increased at night Psych History: anxiety state Cardiac Hx: CO Renal Hx: kidney disease Hepatic Hx: Hep C-cured Other: COPD Illicit Substance/Rx/Alcohol Abuse: no Opioid Risk Assessment Tool (BRQ): 0 Functional Goal: QOL Current Pain Level (07/18/23): stable Pain Level (04/18/23): stable Pain Level (10/19/22): stable Pain Level (04/20/22): stable Pain Level (10/19/21):stable Pain Level (05/12/21): stable Pain Level: Stable Pain Level (09/29/20): stable, but the sciatica pain is very bothersome Pain Level (07/28/20): stable Pain Level (06/02/20): stable Pain Level (03/03/20): stable Pain Level (01/21/20):stable Pain Level (01/31/19):improved Pain Level (12/18/18):improving Pain Level (10/30/18):improving Pain Level Initial Visit (09/18/2018): not accessed today due to anxiety Past Pain Medications: Tylenol Percocet vicodin Cymbalta 60 mg daily -nausea Current Pain Medications: Oxycodone 5 mg [id number] max 4 per day/100 per month (03/29/22 for 100 tabs) - feels not helping Gabapentin 300 mg BID and 600 mg HS * eliquis Creatinine Clearance: Serum creatinine: 1.5 mg/dL (H) 04/18/23 1114 Estimated creatinine clearance: 29.6 mL/min (A) Creatinine Results: Recent Labs Units 04/18/23 1114 03/15/23 0738 03/13/23 1210 CREATININE - [facility] mg/dL 1.5* 1.1* 1.0 Hepatic Function (ALT): Recent Labs Units 03/02/23 [...] this visit is Medication Optimization. Current concerns: pain is well controlled Adherence: Reviewed current regimen, patient is adherent to regimen. Treatment options: continue current medications Treatment concerns: none at this time Education provided: reviewed medication list I have evaluated the patient for the appropriateness and necessity of opioid pain medications. Patient has been educated towards the benefits and risks of opioid medications, including dependence, addiction, and overdose. Patient is aware of the requirements set out in the medication use agreement,including the need for routine urine drug screening. No red flags for abuse or misuse have been exhibited. PLAN: Continue current medications Medication changes: no change Pain Medications: Oxycodone 5 mg [id number] max 4 per day/100 per month (03/29/22 for 100 tabs) - feels not helping Gabapentin 300 mg BID and 600 mg HS * eliquis Patient verbalized understanding of the plan. Contact clinic with any issues. FOLLOW UP: Return to clinic in 6 months Visit date not found Mable Gonzalez RPh Clinical Pharmacist - [employer] Person Medication Therapy Management Clinic 07/18/2023, 9:29 AM documented in this encounter Plan of Treatment Upcoming Encounters Date Type Department Care Team (Late st Contact Info) Description 07/18/2023 10:10 AM EST Laboratory Laboratory, [facility] [address] [place] [phone] Marie Tyson [address] [place] [address] [employer] Other*[id number]; Dyslipidemia, goal LDL below 70; History of ischemic cardiomyopathy; Paroxysmal atrial fibrillation (HCC); Iron deficiency anemia, unspecified iron deficiency anemia type 07/28/2023 9:00 AM EST Office Visit Family Practice [facility] [address] [facility] [address] Erica Marsh MD [address] [facility] [address] 08/01/2023 9:30 AM EDT Imaging Vascular Lab, [facility] [facility] [address] [place] [address] 08/09/2023 2:30 PM EDT Office Visit Vascular Surgery, [facility] [address] [place] [address] Trent Stewart MD [address] [place] [address] 08/29/2023 3:40 PM EDT Office Visit Neurology [facility] [address] [facility] [place] [address] Ashlie Swift MD [address] [facility] [place] [address] 09/07/2023 11:00 AM EDT Office Visit Otolaryngology [facility] [address] [place] [address] Laurie Herrmann PA-C [address] [place] [address] Scheduled Procedures Name Priority Associated Diagnoses Date/Ti me COLONOSCOPY FLEXIBLE PROXIMA L DIAGNOSTIC Recall History of colonic polyps Health Maintenance Due Date Last Done Comments DISCUSS TOBACCO CESSATION (REFER TO SMARTSET #0229) 1947 Alpha-1 Antitrypsin 1965 Diabetic Foot Exam 1965 DXA Scan 09/04/2016 09/04/2013, 09/04/2013 *ADVANCE DIRECTIVE NOT ON FILE 06/09/2019 COVID-19 Vaccine ( season) 2023 11/12/2020, 10/01/2020 Depression Screening 06/02/2023 06/02/2022 Diabetic Eye Exam 07/21/2023 07/20/2022 HbA1c 09/01/2023 03/02/2023, 12/21, 08/19/2006, Additional history exists GFR 10/17/2023 04/18/2023, 02/20, 03/13/2023, Additional history exists Albumin/Creatinine Ratio 03/02/2024 023, 02/21/2022, 07/23/2019 CKD PHOS USE SMARTSET 73271 03/02/202402/19, 10/07/2022, 02/21/2022, Additional history exists CKD HGB USE SMARTSET 00265 03/15/202403/15, 03/02/2023, 03/02/2023, Additional history exists O2 [...] Pain in joint, pelvic region and thigh Nausea Nausea alone [employer] Other*[id number] Dyslipidemia, goal LDL below 70 Other and [...] the patient have Health Care Power of Animal Warden? No Care Teams Roller Engraver Relationship Specialty Start Date End Date Roman Ennis III, MD [address] [place] [address] PCP - General Family Medicine 06/28/18 documented as of this encounter
--- OUTSIDE RECORDS SUMMARY | 2023-10-18 15:36 | External Medical Summary ---
Author Name Unknown Address Unknown Organization [id number]:[facility] [place] [address] [place] [address] Laboratory Report Ordering Provider Test Date Status LEE LOZOYA 07/18/2023 09:59:26 Final Observation Date Value Abnormality Reference (Units ) Status MYCODE SPECIMEN-SST 07/18/2023 09:59:26 Freezing of extracted DNA, whole blood and/or serum. Final Performing Location [facility] [place] [address] [place] [address]
--- OUTSIDE RECORDS SUMMARY | 2023-10-18 15:36 | External Medical Summary ---
Author Name Unknown Address Unknown Organization [id number]:[facility]ATORY [facility] [place] - [address] [place] [address] Laboratory Report Ordering Provider Test Date Status LEE LOZOYA 07/18/2023 09:59:26 Final Observation Date Value Abnormality Reference (Units ) Status MYCODE SPECIMEN-SST 07/18/2023 09:59:26 Freezing of extracted DNA, whole blood and/or serum. Final Performing Location LAB[facility]ATORY [facility] [place] - [address] [place] [address]
--- OUTSIDE RECORDS SUMMARY | 2023-10-18 15:36 | External Medical Summary ---
Author Name Unknown Address Unknown Organization K0G:LABORATORY [facility] - [address] [place] [address] Laboratory Report Ordering Provider Test Date Status NAE BEY 07/18/2023 09:59:26 Final Observation Date Value Abnormality Reference (Units ) Status WBC, Total 07/18/2023 09:59:26 4.58 4.00-10.8 0 (K/uL) Final RBC 07/18/2023 09:59:26 4.40 3.85-5.15 (M/uL) Final Hemoglobin 07/18/2023 09:59:26 11.6 Below low normal 12 .0-15.3 (g/dL) Final HCT 07/18/2023 09:59:26 38.9 36.0-45.2 (%) Final MCV 07/18/2023 09:59:26 88.4 81.5-97.5 (fL) Final MCH 07/18/2023 09:59:26 26.4 27.0-34.0 (pg) Final MCHC 07/18/2023 09:59:26 29.8 32.0-36.0 (g/dL) Final RDW 07/18/2023 09:59:26 26.2 11.5-15.5 (%) Final Platelets 07/18/2023 09:59:26 165 140-400 (K /uL) Final MPV 07/18/2023 09:59:26 10.6 6.6-11.1 ( fL) Final Performing Location LABORATORY [facility] - [address] [place] [address]
--- OUTSIDE RECORDS SUMMARY | 2023-10-18 15:36 | External Medical Summary ---
Author Name Unknown Address Unknown Organization K0G:LABORATORY [facility] [address] - [address] [place] [address] Laboratory Report Ordering Provider Test Date Status NAE BEY 07/18/2023 09:59:26 Final Observation Date Value Abnormality Reference (Units ) Status BUN 07/18/2023 09:59:26 36 Above high normal 6-20 (mg/dL) Final Creatinine 07/18/2023 09:59:26 1.4 Above high normal 0.5-1.0 (mg/dL) Final Glomerular filtration rate/1.73 sq M.predicted [Volume Rate/Area] in Serum, Plasma or Blood by Creatinine-based formula (CKD-EPI) 07/18/2023 09:59:26 38 Below low normal >=60 (mL/min) Final eGFR is calculated based on the CKD-EPI 2020 equation SODIUM 07/18/2023 09:59:26 141 135-146 (m mol/L) Final Potassium 07/18/2023 09:59:26 4.7 3.5-5.1 (m mol/L) Final Cl 07/18/2023 09:59:26 102 98-107 (mm ol/L) Final CO2 07/18/2023 09:59:26 26 22-32 (mmo l/L) Final Anion gap 07/18/2023 09:59:26 13 7-15 (mmol /L) Final Glucose 07/18/2023 09:59:26 89 70-120 (mg /dL) Final Albumin 07/18/2023 09:59:26 4.3 3.8-5.0 (g /dL) Final AST (Aspartate aminotransferase) 07/18/2023 09:59:26 17 10-35 (U/L) Final Alk Phos 07/18/2023 09:59:26 70 35-130 (U/ L) Final Bilirubin, Total 07/18/2023 09:59:26 0.4 <=1 .2 (mg/dL) Final Calcium 07/18/2023 09:59:26 8.9 8.4-10.2 ( mg/dL) Final Protein 07/18/2023 09:59:26 6.6 6.0-8.3 (g /dL) Final ALT (Alanine aminotransferase) 07/18/2023 09:59:26 12 10-35 (U/L) Final Performing Location LABORATORY [facility] [address] - [address] [facility] [address]
--- OUTSIDE RECORDS SUMMARY | 2023-10-18 15:36 | External Medical Summary | Summary of Care ---
Author Name Unknown Organization [facility] Address [address] [place] [address] Phone [phone] Care Team Providers Care Salesperson Recreational Vehicles Name Role Phone Loli NORWOOD MD, Roman Barraza Primary Care Provider [phone] Reason for Referral * Medication Prior Authorization - Pending Review Specialty Diagnoses / Procedures Referred By Xuan bey Referred To Contact Diagnoses Chronic pain syndrome Beto Cosby DO [address] [place] [address] Referral ID Status Reason Start Date Expiration Date V isits Requested Visits Authorized [id number] Pending Review [phone] Reason for Visit * Reason Onset Date Comments Medication Refill 07/13/2023 Encounter Details Date Type Department Care Team (Late st Contact Info) Description 07/13/2023 Refill Family Practice State [facility] [address] [place] [address] Roman Ennis III, MD [address] [facility] [place] [address] Chronic pain syndrome Allergies Active Allergy Reactions Criticality Noted Date Comments Isosorbide Mononitrate 12/24/2007 Severe headaches Nsaids 05/29/2002 Tramadol Hcl Nausea/vomiting Low 01/09/2008 UGI distress documented as of this encounter (statuses as of 07/14/2023) Medications Medication Sig Dispensed Refills Start Date [...] oxyCODONE HCl 5 MG Oral Tablet (Oxy IR)Indications:[employer] Certified Network Professional fernando pain syndrome Take 1 Tablet by mouth every 6 hours as needed (pain). 100 Tablet 0 07/14/2023 Active oxyCODONE HCl 5 MG Oral Tablet (Oxy IR)Indications:[employer] Certified Network Professional fernando pain syndrome Take 1 Tablet by mouth every 6 hours as needed (pain). 100 Tablet 0 06/22/2023 07/13/19 24 Discontinu ed(Refill) documented as of this encounter (statuses as of 07/14/2023) Active Problems Problem Noted Date Diagnosed Date [...] /min) 05/11/2018 Coronary artery disease invo lving igiugig coronary [...] 08/07/2013 Last Assessment & Plan: Followed by [facility] History of colonic polyps 09/04/2012 Overview: 09/01/2012: adenoma, repeat in 3 years ICD-10 update of inactive term DYSLIPIDEMIA, GOAL LDL BELOW 100 05/07/2009 Overview: Per Lipid Taxonomy. OLD MYOCARDIAL INFARCT 12/11/2008 Overview: Modified by Acute [place] Protocol #5. [facility] right coronary bare metal stents S/P angioplasty with stent 09/07/2006 History of tobacco use documented as of this encounter (statuses as of 07/14/2023) Resolved Problems Problem Noted Date Diagnosed Date Resolved Date Atrial fibrillation 02/27/2023 03/16/20 Atrial fibrillation 02/27/2023 03/16/20 Migraine 10/14/2022 10/14/2022 Acute inferior myocardial infarction [...] for Patients with Cardiovascular Disease Project #: [id number] PI: Peyton Conn MD [phone] GENOMICS CARDIO RESEARCH OTHER*[id number] 01/15/2007 06/28/2016 Overview: Renamed Per Clinical Trials Billing Project. Study Title: Genomic Markers for Patients with Cardiovascular Disease Project #: [id number] PI: Peyton Conn MD [phone] LV (left ventricular) mural thrombus 10/30/2006 12/28/2017 Tobacco use disorder 09/07/2006 010 Acute inferior myocardial infarction 08/19/2006 12/11/2008 Overview: Modified by Acute OR Protocol #5. [facility] right coronary bare metal stents EXAMINATION OF PARTICIPANT I N CLINICAL TRIAL - HORIZONS 08/19/2006 09/04/2009 Overview: Renamed Per Clinical Trials Billing Project. [facility] [place] AMI clinical trial 263 Single blind trial comparing heparin and IIB/IIIA with bivalirudin, and Taxus vs bare metal stent. Patient Follow-up for 5 years Mannequin Refinisher: Trent Verduzco [phone] [facility] Clinical Trial*[id number] 08/19/2006 09/08/2014 Overview: Renamed Per Clinical Trials Billing Project. [facility] [place] AMI clinical trial 263 Single blind trial comparing heparin and IIB/IIIA with bivalirudin, and Taxus vs bare metal stent. Patient Follow-up for 5 years Mannequin Refinisher: Trent Verduzco [phone] Menopause 08/29/2002 02/23/2017 LOC PRIM [id number] 05/29/200206/23 Dyslipidemia, goal to be determined 05/29/2002 05/07/2009 Overview: Per Lipid Taxonomy. 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 Test claims Approve at this time. Rx released Thank you, Karlos Kaiser ([facility]) Napper Grinder III [facility] ([facility]PS) (formerly Telepharmacy) 07/14/2023, 1:34 PM * Telephone Encounter - Beto Cosby DO - 07/14/2023 12:31 PM ESTSigned Prescriptions: Disp Refills oxyCODONE HCl 5 MG Oral Tablet (Oxy IR) 100 Ta*0 Sig: Take 1 Tablet by mouth every 6 hours as needed (pain). Authorizing Provider: BETO COSBY * Telephone Encounter - Forest Chahal [facility] - 07/13/2023 4:36 PM ESTPending Prescriptions: Disp Refills oxyCODONE HCl 5 MG Oral Tablet (Oxy IR) 100 Ta*0 Sig: Take 1 Tablet by mouth every 6 hours as needed (pain). * Telephone Encounter - Forest Chahal [facility] - 07/13/2023 4:35 PM EST I have reviewed the patients controlled substance dispensing history in the Prescription Drug Monitoring Program in compliance with the [facility] regulations before prescribing a controlled substance. PDMP checked on 07/13/2023. Pending Prescriptions: Disp Refills oxyCODONE HCl 5 MG Oral Tablet (Oxy IR) 100 Ta*0 Sig: Take 1 Tablet by mouth every 6 hours as needed (pain). Last Visit: 02/27/2023 (in office), 08/24/2020 (telemedicine) Next Visit: 07/28/2023 Date medication was last filled: 06/22/23 Date medication is due for refill: 07/16/23 Pharmacy: [facility], [address] [place] Is this request for [...] approve if appropriate. Thank You, Forest Cordoba [facility] Clinical Pharmacist Centralized Clinical Pharmacy Services (CCPS) (formerly Telepharmacy) 07/13/2023, 4:36 PM * Telephone Encounter - Shanthi Diaz PHARM Tech - 07/13/2023 10:56 AM EST Did you pend patient's preferred pharmacy and medication before forwarding?yes Pharmacy: [facility], [address] [place] Pending Prescriptions: Disp Refills oxyCODONE HCl 5 MG Oral Tablet (Oxy IR) 100 Ta*0 Sig: Take 1 Tablet by mouth every 6 hours as needed (pain). Last Visit: 02/27/2023 (in office), 08/24/2020 (telemedicine) Next Visit: 07/28/2023 If no future appointments scheduled, and last appointment is greater than a year ago, please schedule patient for a follow-up appointment Last date the medication was ordered: 06/22/23 Is this request for a controlled substance?Yes, What was the last refill date 06/22/23 w/ quantity 100 and dosage 1 tab [...] 07/18/2023 9:00 AM EST Office Visit Cardiology, [facility] [address] [facility] [place] [address] Nikole Crenshaw PA-C [address] [place] [address] 07/18/2023 9:30 AM EST Office Visit Pharmacy, [facility] [address] [facility] [place] [address] [facility] [address] [facility] [place] [address] 07/28/2023 9:00 AM EST Office Visit Family Practice [facility] [address] [place] [address] Erica Marsh MD [address] [place] [address] 08/01/2023 9:30 AM EDT Imaging Vascular Lab, [facility] 2nd Floor, [place] [address] [place] [address] 08/09/2023 2:30 PM EDT Office Visit Vascular Surgery, [facility] [address] [place] [address] Trent Stewart MD [address] [place] [address] 08/29/2023 3:40 PM EDT Office Visit Neurology [facility] [address] [facility] [place] [address] Ashlie Swift MD [address] [place] [place] [address] 09/07/2023 11:00 AM EDT Office Visit Otolaryngology [facility] [address] [place] [address] Laurie Herrmann PA-C [address] [place] [address] Scheduled Procedures Name Priority Associated Diagnoses Date/Ti me COLONOSCOPY FLEXIBLE PROXIMA L DIAGNOSTIC Recall History of colonic polyps Health Maintenance Due Date Last Done Comments DISCUSS TOBACCO CESSATION (REFER TO SMARTSET #7015) 1945 Alpha-1 Antitrypsin 1965 Diabetic Foot Exam 1965 DXA Scan 09/04/2016 09/04/2013, 09/04/2013 *ADVANCE DIRECTIVE NOT ON FILE 06/09/2019 COVID-19 Vaccine ( season) 2023 11/12/2020, 10/01/2020 Depression Screening 06/02/2023 06/02/2022 Diabetic Eye Exam 07/21/2023 07/20/2022 HbA1c 09/01/2023 03/02/2023, 12/21, 08/19/2006, Additional history exists GFR 10/17/2023 04/18/2023, 02/20, 03/13/2023, Additional history exists Albumin/Creatinine Ratio 03/02/2024 023, 02/21/2022, 07/23/2019 CKD PHOS USE SMARTSET 99296 03/02/202402/19, 10/07/2022, 02/21/2022, Additional history exists CKD HGB USE SMARTSET 09632 03/15/202403/15, 03/02/2023, 03/02/2023, Additional history exists O2 [...] patient have Health Care Power of Gis Web Developer? No Healthcare Agents on File Name Relationship Healthcare Agent Relationshi p Communication Lacy Tong Adult Child Health Care Repr esentative (appointed verbally by patient or by statute hierarchy) Care Teams Salesperson Recreational Vehicles Relationship Specialty Start Date End Date Roman Ennis III, MD [address] [facility] [place] [address] PCP - General Family Medicine 06/28/18 documented as of this encounter
--- OUTSIDE RECORDS SUMMARY | 2023-10-18 15:37 | External Medical Summary | Summary of Care ---
Author Name Unknown Organization [facility] Address [address] [place] [facility] [place] [address] Phone [phone] Care Team Providers Care Healthcare Insurance Sales Agent Name Role Phone Loli NORWOOD MD, Roman Barraza Primary Care Provider [phone] Reason for Referral * Medication Prior Authorization - Pending Review Specialty Diagnoses / Procedures Referred By Xuan bey Referred To Contact Diagnoses Chronic pain syndrome Beto Cosby DO [address] [place] [address] Referral ID Status Reason Start Date Expiration Date V isits Requested Visits Authorized [id number] Pending Review [phone] Reason for Visit * Reason Onset Date Comments Medication Refill 07/13/2023 Encounter Details Date Type Department Care Team (Late st Contact Info) Description 07/13/2023 Refill Family Practice [facility] [address] [place] [address] Roman Ennis III, MD [address] [facility] [place] [address] Chronic pain syndrome Allergies Active Allergy Reactions [...] oxyCODONE HCl 5 MG Oral Tablet (Oxy IR)Indications:Animal Care Assistant fernando pain syndrome Take 1 Tablet by mouth every 6 hours as needed (pain). 100 Tablet 0 07/14/2023 Active oxyCODONE HCl 5 MG Oral Tablet (Oxy IR)Indications:Animal Care Assistant fernando pain syndrome Take 1 Tablet [...] /min) 05/11/2018 Coronary artery disease invo lving [place] coronary artery of [place] heart without angina pectoris 05/08/2018 Anxiety state [...] & Plan: Followed [place] [facility] [place] History of colonic polyps 09/04/2012 Overview: 09/01/2012: adenoma, repeat in 3 years ICD-10 update of inactive term DYSLIPIDEMIA, GOAL LDL BELOW 100 05/07/2009 Overview: Per Lipid Taxonomy. OLD MYOCARDIAL INFARCT 12/11/2008 Overview: Modified by Acute [place] Protocol #5. [facility] [...] for Patients with Cardiovascular Disease Project #: [id number] PI: Peyton Conn MD [phone] GENOMICS CARDIO RESEARCH OTHER*[id number] 01/15/2007 06/28/2016 Overview: Renamed Per Clinical Trials Billing Project. Study Title: Genomic Markers for Patients with Cardiovascular Disease Project #: [id number] PI: Peyton Conn MD [phone] LV (left ventricular) mural thrombus 10/30/2006 12/28/2017 Tobacco use disorder 09/07/2006 010 Acute inferior myocardial infarction 08/19/2006 12/11/2008 Overview: Modified by Acute [place] Protocol #5. [facility] right coronary bare metal stents EXAMINATION OF PARTICIPANT I N CLINICAL TRIAL - HORIZONS 08/19/2006 09/04/2009 Overview: Renamed Per Clinical Trials Billing Project. [facility] AMI clinical trial 263 Single blind trial comparing heparin and IIB/IIIA with bivalirudin, and Taxus vs bare metal stent. Patient Follow-up for 5 years Seed Core Operator: Trent Verduzco [phone] [facility] Clinical Trial*[id number] 08/19/2006 09/08/2014 Overview: Renamed Per Clinical Trials Billing Project. [facility] AMI clinical trial 263 Single blind trial comparing heparin and IIB/IIIA with bivalirudin, and Taxus vs bare metal stent. Patient Follow-up for 5 years Seed Core Operator: Trent Verduzco [phone] Menopause 08/29/2002 02/23/2017 LOC PRIM [id number] 05/29/200206/23 Dyslipidemia, goal to be determined 05/29/2002 [...] BETO COSBY * Telephone Encounter - Forest Chahal, [facility] - 07/13/2023 4:36 PM ESTPending Prescriptions: Disp Refills oxyCODONE HCl 5 MG Oral Tablet (Oxy IR) 100 Ta*0 Sig: Take 1 Tablet by mouth every 6 hours as needed (pain). * Telephone Encounter - Forest Chahal, [facility] - 07/13/2023 4:35 PM EST I have reviewed the patients controlled substance dispensing history in the Prescription Drug Monitoring Program in compliance with the [facility] regulations before prescribing a controlled substance. PDMP checked on 07/13/2023. Pending Prescriptions: Disp Refills oxyCODONE HCl 5 MG Oral Tablet (Oxy IR) 100 Ta*0 Sig: Take 1 Tablet by mouth every 6 hours as needed (pain). Last Visit: 02/27/2023 (in office), 08/24/2020 (telemedicine) Next Visit: 07/28/2023 Date medication was last filled: 06/22/23 Date medication is due for refill: 07/16/23 Pharmacy: [facility], [address] [place] Is this request for [...] approve if appropriate. Thank You, Forest Cordoba [facility] Clinical Pharmacist Centralized Clinical Pharmacy Services (CCPS) (formerly Telepharmacy) 07/13/2023, 4:36 PM * Telephone Encounter - Shanthi Diaz PHARM Tech - 07/13/2023 10:56 AM EST Did you pend patient's preferred pharmacy and medication before forwarding?yes Pharmacy: [facility], [facility] [place] Pending Prescriptions: Disp Refills [...] 07/18/2023 9:00 AM EST Office Visit Cardiology, [facility] [address] [facility] [place] [address] Nikole Crenshaw PA-C [address] [facility] [place] [address] 07/18/2023 9:30 AM EST Office Visit Pharmacy, [facility] [address] [facility] [place] [address] [facility] [address] [facility] [place] [address] 07/28/2023 9:00 AM EST Office Visit Family Practice [facility] [address] [place] [address] Erica Marsh MD [address] [place] [address] 08/01/2023 9:30 AM EDT Imaging [facility] [address] [facility] [place] [address] 08/09/2023 2:30 PM EDT Office Visit Vascular Surgery, [facility] [address] [place] [address] Trent Stewart MD [address] [place] [address] 08/29/2023 3:40 PM EDT Office Visit Neurology [facility] [address] [place] [address] Ashlie Swift MD [address] [place] [address] 09/07/2023 11:00 AM EDT Office Visit Otolaryngology [facility] [address] [facility] [place] [address] Laurie Herrmann PA-C [address] [facility] [place] [address] Scheduled Procedures Name Priority Associated Diagnoses Date/Ti [...] 023, 02/21/2022, 07/23/2019 CKD PHOS USE SMARTSET 56614 03/02/202402/19, 10/07/2022, 02/21/2022, Additional history exists CKD HGB USE SMARTSET 40786 03/15/202403/15, 03/02/2023, 03/02/2023, Additional history exists O2 [...] the patient have Health Care Power of Marketing Assistant Manager? No Healthcare Agents on File Name Relationship Healthcare Agent Relationshi p Communication Lacy Tong Adult Child Health Care Repr esentative (appointed verbally by patient or by statute hierarchy) Care Teams Healthcare Insurance Sales Agent Relationship Specialty Start Date End Date Roman Ennis III, MD [address] [facility] [place] [address] PCP - General Family Medicine 06/28/18 documented as of this encounter
--- OUTSIDE RECORDS SUMMARY | 2023-10-18 15:37 | External Medical Summary | Summary of Care ---
Author Name Unknown Organization [facility] Address [address] [facility] [place] [address] Phone [phone] Care Team Providers Care Shell Machine Operator Name Role Phone Loli NORWOOD MD, Roman Barraza Primary Care Provider [phone] Reason for Visit * Reason Comments [facility]: Maintenance Encounter Details Date Type Department Care Team (Late st Contact Info) Description 07/06/2023 2:00 PM EST [facility] Visit [facility], [facility] [address] [place] [address] Areli Washburn, RN [address] [place] [address] Allergies Active Allergy Reactions Criticality Noted Date Comments Isosorbide Mononitrate 12/24/2007 Severe headaches Nsaids 05/29/2002 Tramadol Hcl Nausea/vomiting Low 01/09/2008 UGI distress documented as of this encounter (statuses as of 07/10/2023) Medications Medication Sig Dispensed Refills Start Date [...] the morning. 100 Tablet 5 2 Active Ondansetron HCl 4 MG Oral Tablet [...] 62.5-25 MCG/ACT Inhalation Aerosol Powder Breath Activated (umeclidinium-eusebia nterol) INHALE ONE PUFF EVERY DAY 180 Blister Dosing Unit 1 3 Active Gabapentin 300 MG Oral Capsule (Neurontin)Indicat ions:Hip pain, left Take one tablet by mouth in the morning and at noon and two tablets by mouth before bed. 120 Capsule 11 3 Active oxyCODONE HCl 5 MG Oral Tablet (Oxy IR)Indications:Chr onic pain syndrome Take 1 Tablet by mouth every 6 hours as needed (pain). 100 Tablet 0 4 Active Metoprolol Succinate ER 50 MG Oral Tablet Extended Release 24 Hour (toPROL XL) Take 1 Tablet by mouth in the morning and 1 Tablet before bedtime. 0 Active Lisinopril 10 MG Oral Tablet (Prinivil) Take 1 Tablet by mouth in the morning. 0 Active Lisinopril 20 MG Oral Tablet (Prinivil)Indicati ons:HTN, goal to be determined Take 1 Tablet by mouth in the morning. 90 Tablet 3 3 024 Discontinued Metoprolol Succinate ER 25 MG Oral Tablet Extended Release 24 Hour (toPROL XL) Take 1 Tablet by mouth in the morning and 1 Tablet before bedtime. 200 Tablet 5 3 024 Discontinued(Me dication List Clean Up) hydrOXYzine HCl 25 MG Oral Tablet Take 1 Tablet by mouth 3 times a day as needed. 0 024 Discontinued(Me dication List Clean Up) documented as of this encounter (statuses as of 07/10/2023) Active Problems Problem Noted Date Diagnosed Date Food insecurity 05/01/2023 Overview: Per [facility] Protocol Hip pain, left 04/28/2023 [...] /min) 05/11/2018 Coronary artery disease invo lving [place] coronary artery of [place] heart without angina pectoris 05/08/2018 Anxiety state 05/08/2018 ADVANCE DIRECTIVE INFORMATION 03/23/2018 Overview: No, Advance Directive brochure offered , patient declined. Incomplete uterovaginal prolapse 09/29/2017 Cystocele, lateral 09/29/2017 Vaginal atrophy 09/29/2017 Hepatitis C antibody test positive 05/09/2017 Overview: HCV treated; SVR Confirmed 03/05/2018 Controlled substance agreement signed 02/23/2017 Biventricular implantable ca rdioverter-defibrillator in situ 08/07/2013 Last Assessment & Plan: Followed by [facility] cardiology History of colonic polyps 09/04/2012 Overview: 09/01/2012: adenoma, repeat in 3 years ICD-10 update of inactive term DYSLIPIDEMIA, GOAL LDL BELOW 100 05/07/2009 Overview: Per Lipid Taxonomy. OLD MYOCARDIAL INFARCT 12/11/2008 Overview: Modified by Acute [place] Protocol #5. [facility] right coronary bare metal stents S/P angioplasty with stent 09/07/2006 History of tobacco use documented as of this encounter (statuses as of 07/10/2023) Resolved Problems Problem Noted Date Diagnosed Date [...] for Patients with Cardiovascular Disease Project #: [id number] PI: Peyton Conn MD [phone] [employer] CARDIO RESEARCH OTHER*[id number] 01/15/2007 06/28/2016 Overview: Renamed Per Clinical Trials Billing Project. Study Title: Genomic Markers for Patients with Cardiovascular Disease Project #: [id number] PI: Peyton Conn MD [phone] LV (left ventricular) mural thrombus 10/30/2006 12/28/2017 Tobacco use disorder 09/07/2006 010 Acute inferior myocardial infarction 08/19/2006 12/11/2008 Overview: Modified by Acute [place] Protocol #5. [facility] right coronary bare metal stents EXAMINATION OF PARTICIPANT I N CLINICAL TRIAL - HORIZONS 08/19/2006 09/04/2009 Overview: Renamed Per Clinical Trials Billing Project. [facility] AMI clinical trial 263 Single blind trial comparing heparin and IIB/IIIA with bivalirudin, and Taxus vs bare metal stent. Patient Follow-up for 5 years Child Welfare Manager: Trent GeovannySarah SteeleVerduzco [phone] [facility] Clinical Trial*[id number] 08/19/2006 09/08/2014 Overview: Renamed Per Clinical Trials Billing Project. [facility] AMI clinical trial 263 Single blind trial comparing heparin and IIB/IIIA with bivalirudin, and Taxus vs bare metal stent. Patient Follow-up for 5 years Child Welfare Manager: Trent Verduzco [phone] Menopause 08/29/2002 02/23/2017 LOC PRIM [id number] 05/29/200206/23 Dyslipidemia, goal to be determined 05/29/2002 05/07/2009 Overview: Per Lipid Taxonomy. 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 02/23/2017 documented as of this encounter (statuses as of 07/10/2023) Immunizations Name Administration Dates Next Due COVID-19 [...] Reading Time Taken Comments Blood Pressure 98/62 07/06/2023 1:25 PM EST Pulse 80 07/06/2023 1:25 PM EST Temperature 36 C (96.8 F) 07/06/2023 1:25 PM EST Respiratory Rate 18 07/06/2023 1:25 PM EST Oxygen Saturation 90% 07/06/2023 1:25 PM EST Inhaled Oxygen Concentration - - Weight - - Height - - Body Mass Index - - documented in this encounter Progress Notes * Areli Washburn, LISA - 07/06/2023 12:57 PM EST [facility] Physician Advisor Visit Date: 07/06/2023 Time: 12:57 PM Name: Radha Tong : 1945 Current Concerns: Patient seen for TRAVIS#1- 06/28- r/t low H&H(symptomatic anemia)- Hemoglobin 6.8. Discharged home 07/03- Metoprolol increased 50mg BID, Lisinopril decreased to 10mg, Ferrous Sulfate 325mg BID. Pill Box med review- awaiting on new pill packs to be delivered. Patient voices understanding of med regimen. DIL assists. Weight today 154lbs- own scale Reports feeling well VS wnl Lungs clear bilaterally Sob with exertion No LE edema Voiding without difficulty Bowels wnl- per report Appetite good Taking fluids well Problems/Symptoms: Review of Systems Constitutional: Negative. HENT: Negative. Eyes: Negative. Respiratory: Positive for shortness of breath. Cardiovascular: Negative. Gastrointestinal: Negative. Endocrine: Negative. Genitourinary: Negative. Musculoskeletal: Positive for gait problem. Skin: Negative. Hematological: Negative. Psychiatric/Behavioral: Negative. Physical Exam: BP 98/62 (BP Site: Left Arm, BP Position: Sitting, BP Cuff Size: Regular) | Pulse 80 | Temp 36 C (96.8 F) (Tympanic) | Resp 18 | SpO2 90% Pain 7- left foot, hip Physical Exam Constitutional: Appearance: Normal appearance. [...] and oriented to person, place, and time. [facility]-10 Completed this Visit: Yes. [facility]-10: Reason Completed: Status post ED visit/hospital admission [facility]-10 Interventions: Fall education provided, reviewed/provided Fall brochure Treatment/Plan: Weigh daily Low na diet Continue medications as prescribed- aware of tomorrow PCP appointment Keep all upcoming MD appointments Fall precautions RN CM follow up in 4 days Home Interventions Provided: Reinforced current Plan of Care, including self-management and medication regimen Patient Needs to Remember: Call [facility] with any medical concerns/ red flags Referrals Needed: N/a Follow Up: Is there cellular connectivity/connectivity in the home? Yes Does the patient have internet in the home? No Patient encouraged to call the intake phone number for all urgent but not emergent issues. Scheduled to follow up with patient in 4 days. Areli Coates RN 07/06/2023 12:57 PM documented in this encounter Plan of Treatment Upcoming Encounters Date Type Department Care Team (Late st Contact Info) Description 07/18/2023 9:00 AM EST Office Visit Cardiology, [facility] [address] [place] [address] Nikole Crenshaw PA-C [address] [place] [address] 07/18/2023 9:30 AM EST Office Visit Pharmacy, [facility] [address] [place] [address] [facility] [address] [facility] [place] [address] 07/28/2023 9:00 AM EST Office Visit Family Practice [facility] [address] [facility] [place] [address] Erica Marsh MD [address] [facility] [place] [address] 08/01/2023 9:30 AM EDT Imaging Vascular Lab, [facility] II 2nd Floor, [place] [address] [place] [address] 08/09/2023 2:30 PM EDT Office Visit Vascular Surgery, [facility] [address] [place] [address] Trent Stewart MD [address] [place], [place] [address] 08/29/2023 3:40 PM EDT Office Visit Neurology [facility] [address] [place] [address] Ashlie Swift MD [address] [place] [address] 09/07/2023 11:00 AM EDT Office Visit Otolaryngology [facility] [address] [place] [address] Laurie Herrmann PA-C [address] [place] [address] Health Maintenance Due Date Last Done Comments [...] 023, 02/21/2022, 07/23/2019 CKD PHOS USE SMARTSET 32689 03/02/202402/19, 10/07/2022, 02/21/2022, Additional history exists CKD HGB USE SMARTSET 93761 03/15/202403/15, 03/02/2023, 03/02/2023, Additional history exists O2 ASSESSMENT COMPLETED IN PAST YEAR FOR COPD 07/06/2024 07/06/2023 DTaP,Tdap,and Td Vaccines (4 - Td or [...] the patient have Health Care Power of Hospital Superintendent? No Healthcare Agents on File Name Relationship Healthcare Agent Relationshi p Communication Lacy Tong Adult Child Health Care Repr esentative (appointed verbally by patient or by statute hierarchy) Care Teams Shell Machine Operator Relationship Specialty Start Date End Date Roman Ennis III, MD [address] [place] [address] PCP - General Family Medicine 06/28/18 documented as of this encounter
--- OUTSIDE RECORDS SUMMARY | 2023-10-18 15:37 | External Medical Summary | Summary of Care ---
Author Name Unknown Organization [facility] Address [address] [place] [facility] [place] [address] Phone [phone] Care Team Providers Care Vocational Psychologist Name Role Phone Loli NORWOOD MD, Roman Barraza Primary Care Provider [phone] Reason for Visit * Reason Onset Date Comments [facility]: Maintenance 07/06/2023 Encounter Details Date Type Department Care Team (Late st Contact Info) Description 07/06/2023 12:00 PM EST Scheduled Telephone [facility], [facility] [address] [place] [address] Coordinator, [facility] [address] [place] [address] Allergies Active Allergy Reactions Criticality Noted Date Comments Isosorbide Mononitrate 12/24/2007 Severe headaches Nsaids 05/29/2002 Tramadol Hcl Nausea/vomiting Low 01/09/2008 UGI distress documented as of this encounter (statuses as of 07/06/2023) Medications Medication Sig Dispensed Refills Start Date [...] needed (pain). 100 Tablet 0 06/22/2023 Active Metoprolol Succinate ER 50 MG Oral Tablet Extended Release 24 Hour (toPROL XL) Take 1 Tablet by mouth in the morning and 1 Tablet before bedtime. 0 Active Lisinopril 10 MG Oral Tablet (Prinivil) Take 1 Tablet by mouth in the morning. 0 Active documented as of this encounter (statuses as of 07/06/2023) Active Problems Problem Noted Date Diagnosed Date Food insecurity 05/01/2023 Overview: Per [facility] Protocol Hip pain, left 04/28/2023 [...] /min) 05/11/2018 Coronary artery disease invo lving [place] coronary artery of [place] heart without angina pectoris 05/08/2018 Anxiety state [...] Overview: Modified by Acute [place] Protocol #5. [facility] right coronary bare metal stents S/P angioplasty with stent 09/07/2006 History of tobacco use documented as of this encounter (statuses as of 07/06/2023) Resolved Problems Problem Noted Date Diagnosed Date [...] for Patients with Cardiovascular Disease Project #: [id number] PI: Peyton Conn MD [phone] [employer] CARDIO RESEARCH OTHER*[id number] 01/15/2007 06/28/2016 Overview: Renamed Per Clinical Trials Billing Project. Study Title: Genomic Markers for Patients with Cardiovascular Disease Project #: [id number] PI: Peyton Conn MD [phone] LV (left ventricular) mural thrombus 10/30/2006 12/28/2017 Tobacco use disorder 09/07/2006 010 Acute inferior myocardial infarction 08/19/2006 12/11/2008 Overview: Modified by Acute [place] Protocol #5. [facility] right coronary bare metal stents EXAMINATION OF PARTICIPANT I N CLINICAL TRIAL - HORIZONS 08/19/2006 09/04/2009 Overview: Renamed Per Clinical Trials Billing Project. [facility] AMI clinical trial 263 Single blind trial comparing heparin and IIB/IIIA with bivalirudin, and Taxus vs bare metal stent. Patient Follow-up for 5 years Meat Stock Clerk: Trent Verduzco [phone] [facility] Clinical Trial*[id number] 08/19/2006 09/08/2014 Overview: Renamed Per Clinical Trials Billing Project. [facility] AMI clinical trial 263 Single blind trial comparing heparin and IIB/IIIA with bivalirudin, and Taxus vs bare metal stent. Patient Follow-up for 5 years Meat Stock Clerk: Trent Verduzco [phone] Menopause 08/29/2002 02/23/2017 LOC PRIM [id number] 05/29/200206/23 Dyslipidemia, goal to be determined 05/29/2002 05/07/2009 Overview: Per Lipid Taxonomy. 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 CHAD Mccormack Animal Physiology Teacher [facility] documented in this encounter Plan of Treatment Upcoming Encounters Date Type Department Care Team (Late st Contact Info) Description 07/07/2023 4:00 PM EST Office Visit Family Practice [facility] [place] [facility] [address] [place] [address] Erica Marsh MD [address] [place] [address] 07/10/2023 10:00 AM EST [facility] Visit [facility] [place], [facility] [address] [place] [address] Areli Washburn, LISA [address] [place] [address] 07/18/2023 9:00 AM EST Office Visit Cardiology, [facility] [address] [place] [address] Nikole Crenshaw PA-C [address] [place] [address] 07/18/2023 9:30 AM EST Office Visit Pharmacy, [facility] [address] [facility] [place] [address] [facility] [address] [facility] [place] [address] 08/01/2023 9:30 AM EDT Imaging Vascular Lab, [facility] II 2nd Floor, [place] [address] [facility] [place] [address] 08/09/2023 2:30 PM EDT Office Visit Vascular Surgery, [facility] [address] [facility] [place] [address] Trent Stewart MD [address] [place] [address] 08/29/2023 3:40 PM EDT Office Visit Neurology [facility] 200 [facility] [place] [address] Ashlie Swift MD [address] [facility] [place], [place] [address] 09/07/2023 11:00 AM EDT Office Visit Otolaryngology [facility] [address] [facility] [place] [address] Laurie Herrmann PA-C [address] [place] [address] Health Maintenance Due Date Last Done Comments [...] 023, 02/21/2022, 07/23/2019 CKD PHOS USE SMARTSET 43404 03/02/202402/19, 10/07/2022, 02/21/2022, Additional history exists CKD HGB USE SMARTSET 77591 03/15/202403/15, 03/02/2023, 03/02/2023, Additional history exists O2 [...] the patient have Health Care Power of Early Interventionist? No Healthcare Agents on File Name Relationship Healthcare Agent Relationshi p Communication Lacy Tong Adult Child Health Care Repr esentative (appointed verbally by patient or by statute hierarchy) Care Teams Vocational Psychologist Relationship Specialty Start Date End Date Roman Ennis III, MD [address] [place] [address] PCP - General Family Medicine 06/28/18 documented as of this encounter
--- OUTSIDE RECORDS SUMMARY | 2023-10-18 15:37 | External Medical Summary | Summary of Care ---
Author Name Unknown Organization [facility] Address [address] [facility] [place] [address] Phone [phone] Care Team Providers Care Land Degradation Analyst Name Role Phone Loli NORWOOD MD, Roman Barraza Primary Care Provider [phone] Encounter Details Date Type Department Care Team (Late st Contact Info) Description 07/11/2023 Population Health External Data Unspecified Department Allergies Active Allergy Reactions Criticality Noted Date Comments Isosorbide Mononitrate 12/24/2007 Severe headaches Nsaids 05/29/2002 Tramadol Hcl Nausea/vomiting Low 01/09/2008 UGI distress documented as of this encounter (statuses as of 07/12/2023) Medications Medication Sig Dispensed Refills Start Date [...] as of this encounter (statuses as of 07/12/2023) Active Problems Problem Noted Date Diagnosed Date [...] /min) 05/11/2018 Coronary artery disease invo lving [place] coronary artery of [place] heart without angina pectoris 05/08/2018 Anxiety state 05/08/2018 ADVANCE DIRECTIVE INFORMATION 03/23/2018 Overview: No, Advance Directive brochure offered , patient declined. Incomplete uterovaginal prolapse 09/29/2017 Cystocele, lateral 09/29/2017 Vaginal atrophy 09/29/2017 Hepatitis C antibody test positive 05/09/2017 Overview: HCV treated; SVR Confirmed 03/05/2018 Controlled substance agreement signed 02/23/2017 Biventricular implantable ca rdioverter-defibrillator in situ 08/07/2013 Last Assessment & Plan: Followed by [facility] cardiology History of colonic polyps 09/04/2012 Overview: 09/01/2012: adenoma, repeat in 3 years ICD-10 update of inactive term DYSLIPIDEMIA, GOAL LDL BELOW 100 05/07/2009 Overview: Per Lipid Taxonomy. OLD MYOCARDIAL INFARCT 12/11/2008 Overview: Modified by Acute [place] Protocol #5. [facility] right coronary bare metal stents S/P angioplasty with stent 09/07/2006 History of tobacco use documented as of this encounter (statuses as of 07/12/2023) Resolved Problems Problem Noted Date Diagnosed Date [...] for Patients with Cardiovascular Disease Project #: [id number] PI: Peyton Conn MD [phone] GENOMICS CARDIO RESEARCH OTHER*[id number] 01/15/2007 06/28/2016 Overview: Renamed Per Clinical Trials Billing Project. Study Title: Genomic Markers for Patients with Cardiovascular Disease Project #: [id number] PI: Peyton Conn MD [phone] LV (left ventricular) mural thrombus 10/30/2006 12/28/2017 Tobacco use disorder 09/07/2006 010 Acute inferior myocardial infarction 08/19/2006 12/11/2008 Overview: Modified by Acute [place] Protocol #5. [facility] right coronary bare metal stents EXAMINATION OF PARTICIPANT I N CLINICAL TRIAL - HORIZONS 08/19/2006 09/04/2009 Overview: Renamed Per Clinical Trials Billing Project. [facility] AMI clinical trial 263 Single blind trial comparing heparin and IIB/IIIA with bivalirudin, and Taxus vs bare metal stent. Patient Follow-up for 5 years Hand Touch Up Painter: Trent Verduzco [phone] [facility] Clinical Trial*[id number] 08/19/2006 09/08/2014 Overview: Renamed Per Clinical Trials Billing Project. [facility] AMI clinical trial 263 Single blind trial comparing heparin and IIB/IIIA with bivalirudin, and Taxus vs bare metal stent. Patient Follow-up for 5 years Hand Touch Up Painter: Trent Verduzco [phone] Menopause 08/29/2002 02/23/2017 LOC PRIM [id number] 05/29/200206/23 Dyslipidemia, goal to be determined 05/29/2002 05/07/2009 Overview: Per Lipid Taxonomy. 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 [address] [facility] [place] [address] Nikole Crenshaw PA-C [address] [place] [address] 07/18/2023 9:30 AM EST Office Visit Pharmacy, [facility] [address] [facility] [place] [address] [facility] [address] [facility] [place] [address] 07/28/2023 9:00 AM EST Office Visit Family Practice [facility] [address] [facility] [address] Erica Marsh MD 200 [facility] [place] [address] 08/01/2023 9:30 AM EDT Imaging Vascular Lab, [facility] II 2nd Floor, [place] [address] [place] [address] 08/09/2023 2:30 PM EDT Office Visit Vascular Surgery, [facility] 132 [facility] [place] [address] Trent Stewart MD [address] [facility] [place] [address] 08/29/2023 3:40 PM EDT Office Visit Neurology [facility] 200 [facility] [place] [address] Ashlie Swift MD [address] [facility] [place] [address] 09/07/2023 11:00 AM EDT Office Visit Otolaryngology [facility] [address] [place] [address] Laurie Herrmann PA-C [address] [place] [address] Scheduled Procedures Name Priority Associated Diagnoses Date/Ti [...] 023, 02/21/2022, 07/23/2019 CKD PHOS USE SMARTSET 42386 03/02/202402/19, 10/07/2022, 02/21/2022, Additional history exists CKD HGB USE SMARTSET 78267 03/15/202403/15, 03/02/2023, 03/02/2023, Additional history exists O2 [...] the patient have Health Care Power of Line Assigner? No Healthcare Agents on File Name Relationship Healthcare Agent Relationshi p Communication Lacy Tong Adult Child Health Care Repr esentative (appointed verbally by patient or by statute hierarchy) Care Teams Land Degradation Analyst Relationship Specialty Start Date End Date Roman Ennis III, MD [address] [facility] [place] [address] PCP - General Family Medicine 06/28/18 documented as of this encounter
--- OUTSIDE RECORDS SUMMARY | 2023-10-18 15:38 | External Medical Summary | Summary of Care ---
Author Name Unknown Organization [facility] Address [address] [place] [place] [address] Phone [phone] Care Team Providers Care Cornice Maker Name Role Phone Loli NORWOOD MD, Roman Barraza Primary Care Provider [phone] Encounter Details Date Type Department Care Team (Late st Contact Info) Description 07/03/2023 Orders Only Gastroenterology, [address] [phone] Queenie Gonzalez MD [address] [place] [phone] Allergies Active Allergy Reactions Criticality Noted Date Comments Isosorbide Mononitrate 12/24/2007 Severe headaches Nsaids 05/29/2002 Tramadol Hcl Nausea/vomiting Low 01/09/2008 UGI distress documented as of this encounter (statuses as of 07/03/2023) Medications Medication Sig Dispensed Refills Start Date [...] Active Nitroglycerin 0.4 MG Sublingual Tablet Sublingual (Nitrostat)Israeltio ns:ASCVD (arteriosclerotic cardiovascular disease),Chest pain, unspecified type [...] 0 Active Gabapentin 300 MG Oral Capsule (Neurontin)Israeltio ns:Hip pain, left Take one tablet by mouth in the morning and at noon and two tablets by mouth before bed. 120 Capsule 11 05/03/2023 Active oxyCODONE HCl 5 MG Oral Tablet (Oxy IR)Indications:Chron ic pain syndrome Take 1 Tablet by mouth every 6 hours as needed (pain). 100 Tablet 0 06/22/2023 Active documented as of this encounter (statuses as of 07/03/2023) Active Problems Problem Noted Date Diagnosed Date [...] Coronary artery disease invo lving [place] coronary artery of [place] heart without angina pectoris 05/08/2018 Anxiety state 05/08/2018 ADVANCE DIRECTIVE INFORMATION 03/23/2018 Overview: No, Advance Directive brochure offered , patient declined. Incomplete uterovaginal prolapse 09/29/2017 Cystocele, lateral 09/29/2017 Vaginal atrophy 09/29/2017 Hepatitis C antibody test positive 05/09/2017 Overview: HCV treated; SVR Confirmed 03/05/2018 Controlled substance agreement signed 02/23/2017 Biventricular implantable ca rdioverter-defibrillator in situ 08/07/2013 Last Assessment & Plan: Followed by [facility] cardiology History of colonic polyps 09/04/2012 Overview: 09/01/2012: adenoma, repeat in 3 years ICD-10 update of inactive term DYSLIPIDEMIA, GOAL LDL BELOW 100 05/07/2009 Overview: Per Lipid Taxonomy. OLD MYOCARDIAL INFARCT 12/11/2008 Overview: Modified by Acute [place] Protocol #5. [facility] right coronary bare metal stents S/P angioplasty with stent 09/07/2006 History of tobacco use documented as of this encounter (statuses as of 07/03/2023) Resolved Problems Problem Noted Date Diagnosed Date [...] for Patients with Cardiovascular Disease Project #: [id number] PI: Peyton Conn MD [phone] GENOMICS CARDIO RESEARCH OTHER*[id number] 01/15/2007 06/28/2016 Overview: Renamed Per Clinical Trials Billing Project. Study Title: Genomic Markers for Patients with Cardiovascular Disease Project #: [id number] PI: Peyton Conn MD [phone] LV (left ventricular) mural thrombus 10/30/2006 12/28/2017 Tobacco use disorder 09/07/2006 010 Acute inferior myocardial infarction 08/19/2006 12/11/2008 Overview: Modified by Acute [place] Protocol #5. [facility] right coronary bare metal stents EXAMINATION OF PARTICIPANT I N CLINICAL TRIAL - HORIZONS 08/19/2006 09/04/2009 Overview: Renamed Per Clinical Trials Billing Project. Horizon AMI clinical trial 263 Single blind trial comparing heparin and IIB/IIIA with bivalirudin, and Taxus vs bare metal stent. Patient Follow-up for 5 years Machine Gun Mechanic: Trent Verduzco [phone] [facility] Clinical Trial*[id number] 08/19/2006 09/08/2014 Overview: Renamed Per Clinical Trials Billing Project. Horizon AMI clinical trial 263 Single blind trial comparing heparin and IIB/IIIA with bivalirudin, and Taxus vs bare metal stent. Patient Follow-up for 5 years Machine Gun Mechanic: Trent Verduzco [phone] Menopause 08/29/2002 02/23/2017 LOC PRIM [id number] 05/29/200206/23 Dyslipidemia, goal to be determined 05/29/2002 05/07/2009 Overview: Per Lipid Taxonomy. 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 02/23/2017 documented as of this encounter (statuses as of 07/03/2023) Immunizations Name Administration Dates Next Due COVID-19 [...] Care Team (Late st Contact Info) Description 07/10/2023 10:00 AM EST Home Visit [facility]bert at [facility] [address] [address] [address] Areli Washburn RN [address] [place] [address] 07/18/2023 9:00 AM EST Office Visit Cardiology, [facility] [address] [address] Nikole Crenshaw PA-C [address] [place] [address] 07/18/2023 9:30 AM EST Office Visit Pharmacy, [facility] [address] [address] [facility] [address] [facility] [place] [address] 08/01/2023 9:30 AM EDT Imaging Vascular Lab, [facility] 2nd Floor, [place] [address] [place] [address] 08/09/2023 2:30 PM EDT Office Visit Vascular Surgery, [facility] [address] [facility] [place] [address] Trent Stewart MD [address] [place] [address] 08/29/2023 3:40 PM EDT Office Visit Neurology [facility] [address] [place] [address] Ashlie Swift MD [address] [place] [address] 09/07/2023 11:00 AM EDT Office Visit Otolaryngology [facility] [address] [facility] [place] [address] Laurie Herrmann PA-C [address] [facility] [place] [address] Health Maintenance Due Date Last Done Comments DISCUSS TOBACCO CESSATION (REFER TO SMARTSET #2421) 1945 Alpha-1 Antitrypsin 1965 Diabetic Foot Exam 1965 DXA Scan 09/04/2016 09/04/2013, 09/04/2013 *ADVANCE DIRECTIVE NOT ON FILE 06/09/2019 COVID-19 Vaccine ( season) 2023 11/12/2020, 10/01/2020 Depression Screening 06/02/2023 06/02/2022 Diabetic Eye Exam 07/21/2023 07/20/2022 HbA1c 09/01/2023 03/02/2023, 12/21, 08/19/2006, Additional history exists GFR 10/17/2023 04/18/2023, 02/20, 03/13/2023, Additional history exists Albumin/Creatinine Ratio 03/02/2024 023, 02/21/2022, 07/23/2019 CKD PHOS USE SMARTSET 12381 03/02/202402/19, 10/07/2022, 02/21/2022, Additional history exists CKD HGB USE SMARTSET 76794 03/15/202403/15, 03/02/2023, 03/02/2023, Additional history exists O2 [...] Procedure Name Priority Date/Time Associated Diagnosis Comments UPPER GI ENDOSCOPY 07/03/2023 COLONOSCOPY 07/03/2023 documented in this encounter Results * UPPER GI ENDOSCOPY (07/03/2023) 07/03/2023 Queenie Gonzalez MD GASTRO UPPER * COLONOSCOPY (07/03/2023) 07/03/2023 Queenie STRAUSS documented in this encounter Advance Directives Latest [...] the patient have Health Care Power of Public Health Internship? No Healthcare Agents on File Name Relationship Healthcare Agent Relationshi p Communication Lacy Tong Adult Child Health Care Repr esentative (appointed verbally by patient or by statute hierarchy) Care Teams Cornice Maker Relationship Specialty Start Date End Date Roman Ennis III, MD [address] [place] [address] PCP - General Family Medicine 06/28/18 documented as of this encounter
--- OUTSIDE RECORDS SUMMARY | 2023-10-18 15:38 | External Medical Summary | Summary of Care ---
Author Name Unknown Organization [facility] Address [address] [facility] [place] [address] Phone [phone] Care Team Providers Care Strength And Conditioning Coach Name Role Phone Loli NORWOOD MD, Roman Barraza Primary Care Provider [phone] Reason for Visit * Reason Onset Date Comments Appointment 06/29/2023 Encounter Details Date Type Department Care Team (Late st Contact Info) Description 06/29/2023 Telephone Gastroenterology, [facility] [address] [place] [address] Yolanda Pollack CRNP [address] [place] [address] Appointment Allergies Active Allergy Reactions Criticality Noted Date Comments Isosorbide Mononitrate 12/24/2007 Severe headaches Nsaids 05/29/2002 Tramadol Hcl Nausea/vomiting Low 01/09/2008 UGI distress documented as of this encounter (statuses as of 06/29/2023) Medications Medication Sig Dispensed Refills Start Date [...] as of this encounter (statuses as of 06/29/2023) Active Problems Problem Noted Date Diagnosed Date [...] /min) 05/11/2018 Coronary artery disease invo lving [place] coronary artery of [place] heart without angina pectoris 05/08/2018 Anxiety state 05/08/2018 ADVANCE DIRECTIVE INFORMATION 03/23/2018 Overview: No, Advance Directive brochure offered , patient declined. Incomplete uterovaginal prolapse 09/29/2017 Cystocele, lateral 09/29/2017 Vaginal atrophy 09/29/2017 Hepatitis C antibody test positive 05/09/2017 Overview: HCV treated; SVR Confirmed 03/05/2018 Controlled substance agreement signed 02/23/2017 Biventricular implantable ca rdioverter-defibrillator in situ 08/07/2013 Last Assessment & Plan: Followed by [facility] cardiology History of colonic polyps [...] as of this encounter (statuses as of 06/29/2023) Resolved Problems Problem Noted Date Diagnosed Date [...] for Patients with Cardiovascular Disease Project #: [id number] PI: Peyton Conn MD [phone] GENOMICS CARDIO RESEARCH OTHER*[id number] 01/15/2007 06/28/2016 Overview: Renamed Per Clinical Trials Billing Project. Study Title: Genomic Markers for Patients with Cardiovascular Disease Project #: [id number] PI: Peyton Conn MD [phone] LV (left ventricular) mural thrombus 10/30/2006 12/28/2017 [...] metal stent. Patient Follow-up for 5 years Manager Php: Trent Verduzco [phone] [facility] Clinical Trial*[id number] 08/19/2006 09/08/2014 Overview: Renamed Per Clinical Trials Billing Project. Horizon AMI clinical trial 263 Single blind trial comparing heparin and IIB/IIIA with bivalirudin, and Taxus vs bare metal stent. Patient Follow-up for 5 years Manager Php: Trent Steeleenship [phone] Menopause 08/29/2002 02/23/2017 LOC PRIM [id number] 05/29/200206/23 Dyslipidemia, goal to be determined 05/29/2002 05/07/2009 Overview: Per Lipid Taxonomy. 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 Pls contact next week to offer EGD and colonoscopy OSCAR Smith documented in this encounter Plan of Treatment Upcoming Encounters Date Type Department Care Team (Late st Contact Info) Description 07/05/2023 3:40 PM EST Office Visit Neurology [facility] [address] [place] [address] Ashlie Swift MD [address] [place] [address] 07/10/2023 10:00 AM EST Home Visit [facility] at [address] [place] [address] Areli Washburn, RN [address] [place] [address] 07/18/2023 9:00 AM EST Office Visit Cardiology, [facility] 132 [facility] [place] [address] Nikole Crenshaw PA-C 132 [facility] [place] [address] 07/18/2023 9:30 AM EST Office Visit Pharmacy, [address] [place] [address] [place] [address] 08/01/2023 9:30 AM EDT Imaging Vascular Lab, [facility] 2nd Floor, [employer] 132 [facility] [place] [address] 08/09/2023 2:30 PM EDT Office Visit Vascular Surgery, [address] [place] [address] Trent Stewart MD [address] [place] [address] 09/07/2023 11:00 AM EDT Office Visit Otolaryngology [facility] 132 [facility] [place] [address] Laurie Herrmann PA-C [facility] [place] [address] Scheduled Orders Name Type Priority Associated Diagnoses Orde r Schedule EGD, FLEXIBLE, DIAGNOSTIC Procedures Routine Anemia, unspecified type Ordered: 06/29/2023 COLONOSCOPY, DIAGNOSTIC (RECTUM) Procedures Routine Anemia, unspecified type Ordered: 06/29/2023 Health Maintenance Due Date Last Done Comments [...] 023, 02/21/2022, 07/23/2019 CKD PHOS USE SMARTSET 64370 03/02/202402/19, 10/07/2022, 02/21/2022, Additional history exists CKD HGB USE SMARTSET 38054 03/15/202403/15, 03/02/2023, 03/02/2023, Additional history exists O2 [...] have Health Care Power of Data Communications Software Consultant? No Healthcare Agents on File Name Relationship Healthcare Agent Relationshi p Communication Lacy Tong Adult Child Health Care Repr esentative (appointed verbally by patient or by statute hierarchy) Care Teams Strength And Conditioning Coach Relationship Specialty Start Date End Date Roman Ennis III, MD [address] [place] [address] PCP - General Family Medicine 06/28/18 documented as of this encounter
--- OUTSIDE RECORDS SUMMARY | 2023-10-18 15:38 | External Medical Summary | Summary of Care ---
Author Name Unknown Organization [facility] Address [address] [facility] [place] [address] Phone [phone] Care Team Providers Care Out Of School Hours Care Worker Name Role Phone Loli NORWOOD MD, Roman Barraza Primary Care Provider [phone] Encounter Details Date Type Department Care Team (Late st Contact Info) Description 07/03/2023 Result Scan Unspecified Department Queenie Gonzalez MD [address] [place] [address] [place] [id number] <No scans attached> Allergies Active Allergy Reactions Criticality Noted Date Comments Isosorbide Mononitrate 12/24/2007 Severe headaches Nsaids 05/29/2002 Tramadol Hcl Nausea/vomiting Low 01/09/2008 UGI distress documented as of this encounter (statuses as of 07/05/2023) Medications Medication Sig Dispensed Refills Start Date [...] as of this encounter (statuses as of 07/05/2023) Active Problems Problem Noted Date Diagnosed Date Food insecurity 05/01/2023 Overview: Per [facility] Protocol Hip pain, left 04/28/2023 [...] /min) 05/11/2018 Coronary artery disease invo lving [place] coronary artery of [place] heart without angina pectoris 05/08/2018 Anxiety state [...] Overview: Modified by Acute [place] Protocol #5. [facility] right coronary bare metal stents S/P angioplasty with stent 09/07/2006 History of tobacco use documented as of this encounter (statuses as of 07/05/2023) Resolved Problems Problem Noted Date Diagnosed Date [...] for Patients with Cardiovascular Disease Project #: [id number] PI: Peyton Conn MD [phone] [employer] CARDIO RESEARCH OTHER*[id number] 01/15/2007 06/28/2016 Overview: Renamed Per Clinical Trials Billing Project. Study Title: Genomic Markers for Patients with Cardiovascular Disease Project #: [id number] PI: Peyton Conn MD [phone] LV (left ventricular) mural thrombus 10/30/2006 12/28/2017 Tobacco use disorder 09/07/2006 010 Acute inferior myocardial infarction 08/19/2006 12/11/2008 Overview: Modified by Acute [place] Protocol #5. [facility] right coronary bare metal stents EXAMINATION OF PARTICIPANT I N CLINICAL TRIAL - HORIZONS 08/19/2006 09/04/2009 Overview: Renamed Per Clinical Trials Billing Project. [facility] AMI clinical trial 263 Single blind trial comparing heparin and IIB/IIIA with bivalirudin, and Taxus vs bare metal stent. Patient Follow-up for 5 years Accounts Receivable Assistant: Trent Verduzco [phone] [facility] Clinical Trial*[id number] 08/19/2006 09/08/2014 Overview: Renamed Per Clinical Trials Billing Project. [facility] AMI clinical trial 263 Single blind trial comparing heparin and IIB/IIIA with bivalirudin, and Taxus vs bare metal stent. Patient Follow-up for 5 years Accounts Receivable Assistant: Trent Verduzco [phone] Menopause 08/29/2002 02/23/2017 LOC PRIM [id number] 05/29/200206/23 Dyslipidemia, goal to be determined 05/29/2002 05/07/2009 Overview: Per Lipid Taxonomy. 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 02/23/2017 documented as of this encounter (statuses as of 07/05/2023) Immunizations Name Administration Dates Next Due COVID-19 [...] 4:00 PM EST Office Visit Family Practice [facility] [place] [address] Erica Marsh MD [address] [facility] [place] [address] 07/10/2023 10:00 AM EST Home Visit [facility] [address] [place] [address] Areli Washburn, LISA [address] [place] [address] 07/18/2023 9:00 AM EST Office Visit Cardiology, [facility] [address] [address] Nikole Crenshaw PA-C [address] [address] 07/18/2023 9:30 AM EST Office Visit Pharmacy, [facility] 132 [facility] [place] [address] [facility] [place] [address] [facility] [place] [address] 08/01/2023 9:30 AM EDT Imaging Vascular Lab, [facility] 2nd Floor, [place] [address] [facility] [place] [address] 08/09/2023 2:30 PM EDT Office Visit Vascular Surgery, [facility] 132 [facility] [place] [address] Trent Stewart MD [address] [place] [address] 08/29/2023 3:40 PM EDT Office Visit Neurology [facility] [address] [place] [address] Ashlie Swift MD [address] [place] [address] 09/07/2023 11:00 AM EDT Office Visit Otolaryngology [facility] [place] [address] Laurie Herrmann PA-C [facility] [address] Health Maintenance Due Date Last Done Comments [...] 023, 02/21/2022, 07/23/2019 CKD PHOS USE SMARTSET 01921 03/02/202402/19, 10/07/2022, 02/21/2022, Additional history exists CKD HGB USE SMARTSET 15381 03/15/202403/15, 03/02/2023, 03/02/2023, Additional history exists O2 [...] Procedure Name Priority Date/Time Associated Diagnosis Comments PATHOLOGY SCANNED RESULT 07/03/2023 documented in this encounter Results * PATHOLOGY SCANNED RESULT (07/03/2023) 07/03/2023 Queenie Gonzalez MD PATHOLOGY documented in this encounter Advance Directives Latest [...] the patient have Health Care Power of Evs Attendant? No Healthcare Agents on File Name Relationship Healthcare Agent Relationshi p Communication Lacy Tong Adult Child Health Care Repr esentative (appointed verbally by patient or by statute hierarchy) Care Teams Out Of School Hours Care Worker Relationship Specialty Start Date End Date Roman Ennis III, MD [address] [place] [address] PCP - General Family Medicine 06/28/18 documented as of this encounter
--- OUTSIDE RECORDS SUMMARY | 2023-10-18 15:38 | External Medical Summary | Summary of Care ---
Author Name Unknown Organization [facility] Address [address] [place] [facility] [place] [address] Phone [phone] Care Team Providers Care Network Solutions Architect Name Role Phone Loli NORWOOD MD, Roman Barraza Primary Care Provider [phone] Reason for Visit * Reason Onset Date Comments Appointment 06/29/2023 Encounter Details Date Type Department Care Team (Late st Contact Info) Description 06/29/2023 Telephone Gastroenterology, [facility] [address] [place] [address] Yolanda Pollack CRNP [address] [place] [address] Appointment Allergies Active Allergy Reactions Criticality Noted [...] /min) 05/11/2018 Coronary artery disease invo lving [place] coronary artery of [place] heart without angina pectoris 05/08/2018 Anxiety state [...] Overview: Modified by Acute [place] Protocol #5. [facility] for Patients with Cardiovascular Disease Project #: [id number] PI: Peyton Conn MD [phone] GENOMICS CARDIO RESEARCH OTHER*[id number] 01/15/2007 06/28/2016 Overview: Renamed Per Clinical Trials Billing Project. Study Title: Genomic Markers for Patients with Cardiovascular Disease Project #: [id number] PI: Peyton Conn MD [phone] LV (left ventricular) mural thrombus 10/30/2006 12/28/2017 Tobacco use disorder 09/07/2006 010 Acute inferior myocardial infarction 08/19/2006 12/11/2008 Overview: Modified by Acute [place] Protocol #5. [facility] right coronary bare metal stents EXAMINATION OF PARTICIPANT I N CLINICAL TRIAL - HORIZONS 08/19/2006 09/04/2009 Overview: Renamed Per Clinical Trials Billing Project. [facility] AMI clinical trial 263 Single blind trial comparing heparin and IIB/IIIA with bivalirudin, and Taxus vs bare metal stent. Patient Follow-up for 5 years Mandate Retail Service Merchandiser: Trent Verduzco [phone] [facility] Clinical Trial*[id number] 08/19/2006 09/08/2014 Overview: Renamed Per Clinical Trials Billing Project. [facility] AMI clinical trial 263 Single blind trial comparing heparin and IIB/IIIA with bivalirudin, and Taxus vs bare metal stent. Patient Follow-up for 5 years Mandate Retail Service Merchandiser: Trent [place] Verduzco [phone] Menopause 08/29/2002 02/23/2017 LOC PRIM [id number] 05/29/200206/23 Dyslipidemia, goal to be determined 05/29/2002 [...] encounter Miscellaneous Notes * Telephone Encounter - iLsa Mcnulty OSA - 06/29/2023 2:48 PM EST Talked with daughter in law and she is still in and will call the office to set up an egd and a colonoscopy. * Telephone Encounter - Yolanda Pollack CRNP - 06/29/2023 10:46 AM EST Pt admitted [facility] w anemia wo overt GI bleeding. Pls contact next week to offer EGD and colonoscopy OSCAR Smith documented in this encounter Plan of Treatment Upcoming Encounters Date Type Department Care Team (Late st Contact Info) Description 07/05/2023 3:40 PM EST Office Visit Neurology [facility] [address] [place] [address] Ashlie Swift MD [address] [place] [address] 07/10/2023 10:00 AM EST [facility] [address] [facility] [place] [address] Areli Washburn, LISA [address] [place] [address] 07/18/2023 9:00 AM EST Office Visit Cardiology, [facility] [address] [facility] [place] [address] Nikole Crenshaw PA-C 132 [facility] [place] [address] 07/18/2023 9:30 AM EST Office Visit Pharmacy, [facility] [address] [facility] [place] [address] [facility] [address] [facility] [place] [address] 08/01/2023 9:30 AM EDT Imaging [facility] [address] [facility] [place] [address] 08/09/2023 2:30 PM EDT Office Visit Vascular Surgery, [facility] [address] [facility] [place] [address] Trent Stewart MD [address] [place] [address] 09/07/2023 11:00 AM EDT Office Visit Otolaryngology [facility] [address] [place] [address] Laurie Herrmann PA-C [address] [place] [address] Scheduled Orders Name Type Priority Associated Diagnoses [...] 023, 02/21/2022, 07/23/2019 CKD PHOS USE SMARTSET 70253 03/02/202402/19, 10/07/2022, 02/21/2022, Additional history exists CKD HGB USE SMARTSET 03180 03/15/202403/15, 03/02/2023, 03/02/2023, Additional history exists O2 [...] the patient have Health Care Power of Fitter Machinist? No Healthcare Agents on File Name Relationship Healthcare Agent Relationshi p Communication Lacymark anthony Tong Adult Child Health Care Repr esentative (appointed verbally by patient or by statute hierarchy) Care Teams Network Solutions Architect Relationship Specialty Start Date End Date Roman Ennis III, MD [address] [place] [address] PCP - General Family Medicine 06/28/18 documented as of this encounter
--- NOTE | 2023-10-18 17:29 | Communication Note ---
Date of Service: October 18, 2023 Patient was seen and evaluated by ortho this afternoon. She was unable to have an MRI of her left hip done d/t pacemaker incompatibility. No surgical intervention required, will treat fx conservatively. -Now OK to continue [employer] Plavix, Eliquis for DVT prophylaxis. -PT/OT consults, can ice left hip as needed. She will need to f/u with their clinic in the outpatient setting 2 weeks after d/c. delayed entry date of service noted above agree with above Vidal Gonzales MD
[2023-10-18] MEDS: FERROUS SULFATE 325 MG TAB PO SCH (17:30)
[2023-10-18] MEDS: METOPROLOL SUCC 50MG EXT REL TAB PO SCH (20:34)
[2023-10-18] MEDS: levETIRAcetam 500 MG TAB PO SCH (20:34)
[2023-10-18] MEDS: traZODone HCL 50 MG TAB PO SCH (20:35)
[2023-10-18] MEDS: GABAPENTIN 600 MG TAB PO SCH (20:35)
[2023-10-18] MEDS: APIXABAN 5 MG TABLET PO SCH (21:06)
[2023-10-19] MEDS: PANTOprazole 40 MG TAB PO SCH (05:57)
[2023-10-19] MEDS: ACETAMINOPHEN 325 MG TAB PO PRN (06:00)
[2023-10-19 06:43] LABS: Hematocrit (blood only) 41.5 % (37.0-47.0); Hemoglobin 13.4 g/dl (12.0-16.0); Mean Corpuscular Hemoglobin 32.4 pg (25.0-34.0); Mean Corpuscular Hgb Conc 32.3 g/dL (32.0-36.0); Mean Corpuscular Volume 100.2 fL (80.0-100.0); Mean Platelet Volume 10.3 fL (9.4-12.4); Platelet Count 135 K/uL (130-400); RDW Coefficient of Variation 14.3 % (11.5-14.5); RDW Standard Deviation 49.5 fL (36.4-46.3); Red Blood Count 4.14 M/uL (4.20-5.40); White Blood Count 4.82 K/ul (4.8-10.8)
[2023-10-19 06:45] LABS: Calcium 8.2 mg/dl (8.6-10.3); Chol HDL Ratio 3.3 (0-5); Creatinine Clr Calc Pharmacy 54.6 ml/min; Est GFR (African American) 81.8 ml/min; Est GFR (Non-African American) 70.5 ml/min; Potassium 3.7 mmol/L (3.5-5.1)
[2023-10-19 07:05] LABS: Estimated Average Glucose 120 mg/dl; Hemoglobin A1C 5.8 % (4.5-5.6)
[2023-10-19] MEDS: lisinopril 10 MG TAB PO SCH (07:31)
[2023-10-19] MEDS: CLOPIDOGREL BISULFATE 75 MG TAB PO SCH (07:32)
[2023-10-19] MEDS: UMECLIDINIUM/VILANTEROL 62.5/25MCG 7 PUFFS/INHALER INH SCH (07:34)
[2023-10-19] MEDS: POLYETHYLENE (MIRALAX) 17 GM PACK PO SCH (07:35)
--- NOTE | 2023-10-19 17:02 | Hospitalist Progress Note ---
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 Patient currently endorses 6/10 pain in her left hip, she did receive 8 mg IV morphine in the ED w/ some relief. She also received 4mg of IV Zofran in the ED for prevention of nausea given the severity of her pain. Patient is not currently nauseous. Labs and UA performed in ED are rather unremarkable, no signs of an acute infectious disease process at play. Chest x-ray displayed no acute cardiopulmonary findings. Left hip/pelvis x-ray showed some degenerative changes w/o evidence of an acute abnormality. Left hip CT revealed an acute nondisplaced fracture w/in the greater trochanter of the left femur. Ortho consult was placed. [place] back via [employer] from Dr. Lay, who asked if the patient is able to undergo an MRI of her left hip for further evaluation of the fx. I reached out to her outpatient cardiology DORA (Nikole Crenshaw PA-C), who saw her most recently this past June, to confirm/deny if the patient would be able to have an MRI done given hx of ICD/pacemaker placement. According to Nikole, one of her leads is quite old and does NOT appear to be MRI- compatible. I have relayed this information to Dr. Lay, will await his input regarding next steps regarding management of her fx. -Plan to keep patient NPO until she is evaluated by ortho, r/o need for surgical intervention. -Activity current is bedrest pending ortho evaluation, can advance activity with their recommendations. -Will place her on a regular, carb consistent diet if surgical intervention is not needed. -PRN IV morphine 4mg and po oxycodone 5mg in place for pain management. -Continuous cardiac monitoring in place, fall precautions ordered. -PRN IV Zofran ordered for any bouts of nausea that may occur. -Repeat CBC, BMP in AM. Can continue SLUBBER HAND trazodone for sleep. 10/18 No surgical intervention as per orthopedic service Pain adequately controlled Toe-touch weightbearing PT OT evaluation, recommending inpatient rehab Patient agreeable Case management on board (4) DDD (degenerative disc disease), lumbar: (5) Chronically on opiate therapy: (6) Chronic back pain: Plan: Patient is currently on chronic oral opioid therapy [oxycodone 5mg] for lumbar DDD w/ associated back pain, which is managed by her PCP. PDMP reviewed, prescription last filled 10/12. Patient reports regular use of this medication every 6hrs at home w/ good control of her chronic back pain. Patient denies any issues with her bowel habits at home, such as opioid-induced constipation. -Will continue w/ po 5mg oxycodone therapy for severe pain while hospitalized. -Can use continually interchange use of oral oxycodone and IV morphine for better pain control. -Daily laxative therapy (Miralax) ordered for prevention of opioid-induced c onstipation while hospitalized. (7) COPD (chronic obstructive pulmonary disease): Plan: Patient is currently on 2L of oxygen via nasal cannula and sating at 92%. She does not use any supplemental oxygen at home. Examination findings: Normal respiratory effort, lungs clear to auscultation, decreased air movement bilaterally. No accessory muscle use. -Chronic, stable. Can continue SLUBBER HAND Anoro Ellipta therapy. -Continue to monitor for any signs of respiratory distress. Order placed for PRN DuoNebs given any new-onset SOB, wheezing. Stable (8) Tobacco use disorder: Plan: Patient reports smoking approximately 7-8 cigarettes/day. She has been smoking since the age of 23. She currently lives at home by herself. -Smoking cessation counseling ordered. -Patient denies need for nicotine patches at this time, but could consider adding them on eventually if she does change her mind throughout the hospitalization. (9) Peripheral arterial disease: (10) Peripheral neuropathy: Plan: Patient does have peripheral neuropathy in her left foot, which is unchanged. She denies any new numbness or tingling in her extremities. Patient follows with [facility]. She is currently scheduled to undergo left leg revascularization for the treatment of PVD with claudication in that extremity on October 24 w/ Dr. Marr @ [facility] [place]. -Can continue SLUBBER HAND gabapentin for neuropathic pain. (11) Hyperlipidemia: (12) History of hepatitis C: Plan: Most recent lipid fasting panel (12/18/2022) revealed the following: triglycerides 216, total cholesterol 134, LDL 58 and HDL 33. -Not currently on statin therapy, was on atorvastatin 20mg in the past. Will repeat fasting lipid panel in AM. -According to documentation, she experiences an elevation in her liver enzymes when using statin therapy. Of note, she does have a hx of viral hepatitis C according to [facility] records. (13) GERD (gastroesophageal reflux disease): Plan: -Continue SLUBBER HAND pantoprazole therapy. (14) HTN (hypertension): Plan: -Continue SLUBBER HAND metoprolol succinate and lisinopril w/ hold parameters. (15) H/O cardiac pacemaker: (16) History of implantable cardioverter-defibrillator (ICD) placement: Plan: EKG performed in the ED interpreted by Dr. Vineet Peoples and revealed the following: atrial-sensed ventricular-paced rhythm w/ HR 76bpm, QT/QTc Int 440/495ms and P-R Int 168ms. Compared to her last documented EKG on 06/30/2023, vent rate has decreased by 3bpm. -Order place for pacemaker check, review results when available. No issues (17) Chronic congestive heart failure: Plan: Most recent echo performed 06/29/2023 and revealed the following: EF=60-65%, hypokinetic base inferior wall, mild AV sclerosis w/o significant AV stenosis, mild AVR, trace MVR, mild TVR and grade II diastolic dysfunction. -No need for repeat echo at this time. -Appears dry on exam. Will hold Lasix for now, can reevaluate in the AM. Resume Lasix (18) Diabetes mellitus, type II: Plan: Glucose on arrival to ED was 107. Most recent hemoglobin A1C 6.3 (12/18/2022). -Diet controlled, no need to order SSI therapy at this time as she is not on any diabetic medications at home. -Will repeat hemoglobin A1C in AM. 10/18 a1c 5.8 (19) CKD (chronic kidney disease), stage III: Plan: Baseline creatinine appears to be ~1.0 according to [facility] records. -Creatinine 1.00, BUN 20 and GFR 54.7 on admission. -Potassium 3.5 on admission, repeat BMP in AM. -As mentioned above, will be holding Lasix for now pending reevaluation in the AM. resume Lasix (20) Iron deficiency anemia: Plan: RBC 4.58, Hgb 15.1, and Hct 454 on admission. No need to order iron panel, ferritin level at this time d/t stability of her levels. -Can continue SLUBBER HAND ferrous sulfate therapy. (21) Seizure disorder: Plan: No recent seizures per patient, does NOT drive. Seems [id number] is her primary mode of transportation after talking with her in the ED. Follows w/ [facility] [Dr. Ashlie Swift] per [facility] records. Per their documentation, patient was hospitalized and treated here @ [facility] following new-onset seizure activity in December 2022. -Continue SLUBBER HAND levetiracetam therapy while hospitalized. (22) Acute bacterial conjunctivitis of left eye: Plan: Dr. Gonzales went to see the patient after I did this morning, and she was complaining of some L eye burning and itchiness. -Went ahead and ordered her some Trimethoprim-polymyxin B drops per his recomme ndation to cover for potential infection. (23) Paroxysmal atrial fibrillation: (24) History of DVT (deep vein thrombosis): Plan: EKG performed in the ED interpreted by Dr. Vineet Peoples and revealed the following: atrial-sensed ventricular-paced rhythm w/ HR 76bpm, QT/QTc Int 440/495ms and P-R Int 168ms. Compared to her last documented EKG on 06/30/2023, vent rate has decreased by 3bpm. Patient is currently anticoagulated on Eliquis s/p diagnosis of DVT in her RLE last year, as noted in HPI. Patient states she last took her Eliquis around 7PM yesterday. -Will hold Eliquis for now pending ortho evaluation, r/o any need for surgical intervention of the L greater trochanter fx. Also holding Plavix at this time. Plavix and Eliquis resumed DVT Prophylaxis: SCDs - For now. * As per above, will be holding SLUBBER HAND Eliquis pending ortho consult. Code Status: DNR/DNI - No Resuscitation PCP: Roman Ennis MD Dispo: Admit to Med/Surg w/ Telemetry Patient seen in collaboration with Dr. Gonzales. Please see addendum. I spent a total of 75 minutes coordinating, documenting, and providing care for this patient excluding time spent in the performance of separately billed services. This included personally reviewing all current laboratories and imaging studies, medical reconciliation, outpatient chart review and discussion with specialists. Admission and Anticipated Discharge Date Admission Date: October 18, 2023 Subjective Follow-up for left hip fracture, etc. Seen resting in bedside chair, comfortable, not in distress Reports left hip pain is adequately controlled Denies new leg weakness or numbness No chest pain, shortness of breath, palpitations, dizziness No other new symptom Review of Systems Review of Systems: all noted and negative except for above Physical Exam Physical Exam: General- oriented x 3, not in distress, speaks in sentences with no effort or accessory muscle use Eyes- anicteric Neck- no JVD Lungs- clear breath sounds bilaterally, no crackles or wheezing Heart- normal rate, regular rhythm; no murmurs Abdomen- normal bowel sounds, nondistended, soft, nontender Extremities- no pretibial edema, no calf tenderness Neuro- alert, oriented x 3; no gross focal neurologic deficits Skin- warm & dry Results & Data Results & Data Vital Signs (Past 12 Hours) Vital Signs Temp Pulse Pulse Pulse Resp BP Pulse Ox 10/19/23 14:46 36.7 C 65 16 92/56 L 92 10/19/23 14:17 64 10/19/23 11:44 36.7 C 63 16 91/46 L 90 10/19/23 07:30 10/19/23 07:28 36.9 C 56 L 18 101/52 L 90 10/19/23 07:00 58 L O2 Del Method O2 Flow Rate 10/19/23 14:46 Nasal Cannula 2 10/19/23 14:17 10/19/23 11:44 Nasal Cannula 2 10/19/23 07:30 Nasal Cannula 2 10/19/23 07:28 Nasal Cannula 2 10/19/23 07:00 all noted and reviewed including below (1) Closed nondisplaced fracture of greater trochanter of left femur Encounter type: initial encounter Qualified Code(s): S72.115A - Nondisplaced fracture of greater trochanter of left femur, initial encounter for closed fracture (2) Fall Encounter type: initial encounter Qualified Code(s): W19.XXXA - Unspecified fall, initial encounter (6) Chronic back pain Back pain location: back pain in unspecified location Back pain laterality: unspecified Qualified Code(s): M54.9 - Dorsalgia, unspecified; G89.29 - Other chronic pain (7) COPD (chronic obstructive pulmonary disease) COPD type: unspecified COPD Qualified Code(s): J44.9 - Chronic obstructive pulmonary disease, unspecified (10) Peripheral neuropathy Peripheral neuropathy type: polyneuropathy, unspecified Qualified Code(s): G62.9 - Polyneuropathy, unspecified (11) Hyperlipidemia Hyperlipidemia type: unspecified Qualified Code(s): E78.5 - Hyperlipidemia, unspecified (13) GERD (gastroesophageal reflux disease) Esophagitis presence: esophagitis presence not specified Qualified Code(s): K21.9 - Gastro-esophageal reflux disease without esophagitis (14) HTN (hypertension) Hypertension type: unspecified Qualified Code(s): I10 - Essential (primary) hypertension (17) Chronic congestive heart failure Heart failure type: unspecified Qualified Code(s): I50.9 - Heart failure, unspecified (18) Diabetes mellitus, type II Diabetes mellitus care home insulin use: without cloth drier use Diabetes mellitus complication status: without complication Qualified Code(s): E11.9 - Type 2 diabetes mellitus without complications (19) CKD (chronic kidney disease), stage III Chronic kidney disease stage 3 subtype: stage 3b (GFR 30-44) Qualified Code(s): N18.32 - Chronic kidney disease, stage 3b (20) Iron deficiency anemia Iron deficiency anemia type: unspecified iron deficiency Qualified Code(s): D50.9 - Iron deficiency anemia, unspecified
--- NOTE | 2023-10-19 17:46 | Orthopedic Progress Note ---
Date of Service October 19, 2023 Assessment & Plan (1) Closed nondisplaced fracture of greater trochanter of left femur: Plan: The patient was educated regarding today's findings. Conservative care measures were discussed. Continue with physical therapy. She will clearly need assistance given her limited participation and significant assistance required in PT. No surgical intervention is required. Toe-touch weightbearing as tolerated on the leg with use of a walker. Continue with ice and oral pain medication. Follow-up in the office for reassessment and new imaging in 10 to 14 days. Admission and Anticipated Discharge Date Admission Date: October 18, 2023 Subjective This 78-year-old female seen today in her room. She has a known trochanteric avulsion fracture. The patient states she continues to get pain when she moves the leg. When she is sitting still there is very little pain. She attended physical therapy this morning. She is currently trying to decide which halfway facility to attend. She has no other complaints. Physical Exam Physical Exam: General: Well-developed, well-nourished, elderly female, in no acute distress. Sitting in a bedside chair. Alert and oriented. Skin: Warm and dry with good turgor. No rashes. No ecchymosis. No palpable edema at the hip. Musculoskeletal: The patient has intact motor function to the left knee and ankle. Flexion and extension of the knee causes pain at her greater trochanter. Passive hip flexion as well as rotation are tolerated, but rotation beyond around 15 degrees in either direction causes pain at her greater trochanter. Hip flexion much beyond 90 also causes increased pain at her greater trochanter. She has no discomfort over the anterior flexion crease or into the groin. Neurologic: Gross sensation is intact across the left leg by soft touch. Results & Data Vital Signs (Past 12 Hours) Vital Signs Temp Pulse Pulse Pulse Resp BP Pulse Ox 10/19/23 14:46 36.7 C 65 16 92/56 L 92 10/19/23 14:17 64 10/19/23 11:44 36.7 C 63 16 91/46 L 90 10/19/23 07:30 10/19/23 07:28 36.9 C 56 L 18 101/52 L 90 10/19/23 07:00 58 L O2 Del Method O2 Flow Rate 10/19/23 14:46 Nasal Cannula 2 10/19/23 14:17 10/19/23 11:44 Nasal Cannula 2 10/19/23 07:30 Nasal Cannula 2 10/19/23 07:28 Nasal Cannula 2 10/19/23 07:00 (1) Closed nondisplaced fracture of greater trochanter of left femur Encounter type: initial encounter Qualified Code(s): S72.115A - Nondisplaced fracture of greater trochanter of left femur, initial encounter for closed fracture
[2023-10-20 06:53] LABS: Hematocrit (blood only) 39.6 % (37.0-47.0); Hemoglobin 13.1 g/dl (12.0-16.0); Mean Corpuscular Hemoglobin 32.8 pg (25.0-34.0); Mean Corpuscular Hgb Conc 33.1 g/dL (32.0-36.0); Mean Corpuscular Volume 99.2 fL (80.0-100.0); Mean Platelet Volume 10.2 fL (9.4-12.4); Platelet Count 133 K/uL (130-400); RDW Standard Deviation 49.1 fL (36.4-46.3); Red Blood Count 3.99 M/uL (4.20-5.40)
[2023-10-20 07:06] LABS: BUN Creatinine Ratio 27.9 (10-20); Calcium 8.2 mg/dl (8.6-10.3); Creatinine Clr Calc Pharmacy 50.4 ml/min; Est GFR (African American) 76.1 ml/min; Est GFR (Non-African American) 65.6 ml/min; Potassium 3.7 mmol/L (3.5-5.1)
[2023-10-20] MEDS: FUROSEMIDE 40 MG TAB PO SCH (08:36)
[2023-10-20] MEDS: FUROSEMIDE 20 MG TAB PO SCH (11:12)
--- NOTE | 2023-10-20 16:53 | Hospitalist Progress Note ---
Date of Service October 20, 2023 Assessment & Plan (1) Closed nondisplaced fracture of greater trochanter of left femur: (2) Fall: (3) Left hip pain: Plan: Radha Tong is a 78y/o F with PMHx of dyslipidemia, diet-controlled DM type II, CKD stage III, COPD, CAD, PVD w/ claudication, HTN, seizure disorder, DDD, anxiety, tobacco use disorder, viral hepatitis C, inferior-posterior PA s/p PCI of the RCA+repeat stenting (2006), CVA, paroxysmal atrial fibrillation [anticoagulated on Eliquis], DVT (09/2022), osteoarthritis, chronic back pain, chronic anemia, ischemic cardiomyopathy, congestive HF s/p biventricular ICD implantation (2008) and other problems listed below who presented to the ED for evaluation of left hip pain s/p fall and was found to have an acute nondisplaced fracture within the greater trochanter of the left femur. Acute closed nondisplaced fracture of greater trochanter of left femur Secondary to fall --Left Hip CT:Acute nondisplaced fracture within the greater trochanter of the left femur. No intertrochanteric extension by CT. MRI of the left hip could be obtained to assess for occult intertrochanteric extension. Fall precautions PT OT Appreciate orthopedics input: Conservative management Toe-touch weightbearing as tolerated on the leg with use of a walker Pain control Bowel regimen to prevent constipation Plan to discharge to rehab facility when accepted Needs follow-up with orthopedics on discharge (4) DDD (degenerative disc disease), lumbar: (5) Chronically on opiate therapy: Plan: Hold narcotics for excess sedation (6) Chronic back pain: Plan: Chronic oral opioid therapy for lumbar DDD w/ associated back pain, which is managed by her PCP. (7) COPD (chronic obstructive pulmonary disease): Plan: No signs of acute exacerbation Continue Anoro Ellipta therapy. PRN DuoNebs (8) Tobacco use disorder: Plan: Patient reports smoking approximately 7-8 cigarettes/day. -Smoking cessation advised (9) Peripheral arterial disease: Plan: Continue Plavix Also on Eliquis (10) Peripheral neuropathy: Plan: Reports chronic peripheral neuropathy of left foot Scheduled to undergo left leg revascularization for the treatment of PVD with claudication in that extremity on October 24 w/ Dr. Marr @ [facility] [place]. -Continue gabapentin (11) Hyperlipidemia: (12) History of hepatitis C: Plan: -Not currently on statin therapy, was on atorvastatin 20mg in the past. -According to record, she has elevation of liver enzymes when using statin therapy (13) GERD (gastroesophageal reflux disease): Plan: -Continue PPI (14) HTN (hypertension): Plan: Continue metoprolol, Lisinopril (15) H/O cardiac pacemaker: (16) History of implantable cardioverter-defibrillator (ICD) placement: Plan: Continue home medications Follows with cardiology as outpatient (17) Chronic congestive heart failure: Plan: Last ECHO:06/29/2023 and revealed the following: EF=60-65%, hypokinetic base inferior wall, mild AV sclerosis w/o significant AV stenosis, mild AVR, trace MVR, mild TVR and grade II diastolic dysfunction. Continue home Lasix Monitor volume status (18) Diabetes mellitus, type II: Plan: Last HbA1c 5.8 Diet controlled Continue insulin while hospitalized if needed Monitor BGs (19) CKD (chronic kidney disease), stage III: Plan: Baseline creatinine appears to be ~1.0 according to [facility] records. Monitor renal function Avoid nephrotoxic agents as able (20) Iron deficiency anemia: Plan: continue ferrous sulfate supplements (21) Seizure disorder: Plan: Follows w/ [facility] [Dr. Ashlie Swift] per [facility] records. -Continue levetiracetam therapy (22) Acute bacterial conjunctivitis of left eye: Plan: Continue Trimethoprim-polymyxin B drops (23) Paroxysmal atrial fibrillation: Plan: Continue metoprolol, Eliquis (24) History of DVT (deep vein thrombosis): Plan: Continue Eliquis DVT Px Eliquis Code Status: DNR/DNI Disposition Rehab as able Admission and Anticipated Discharge Date Admission Date: October 18, 2023 Subjective Patient is seen and examined at bedside States having shoulder, left hip pain secondary to fall Otherwise no complaints Denies any chest pain, dyspnea, dizziness, nausea, vomiting, abdominal pain Waiting for rehab placement Review of Systems Review of Systems: All systems reviewed & are unremarkable except as noted in Subjective Physical Exam Physical Exam: Physical Exam: Vitals signs as noted above General Appearance:Moderately built and nourished, no apparent distress Head: normocephalic, Atraumatic Eyes: normal inspection, EOMI Neck: supple, Trachea midline Respiratory/Chest: Decreased breath sounds, CTA, No accessory muscle use Cardiovascular: S1, S2, No murmur,+Pacer Abdomen/GI:Soft, Non tender, Bowel sounds present Extremities/Musculoskeletal:normal inspection, no edema, decreased left lower extremity ROM Neurologic/Psych:AAOX3, grossly no focal neurological deficits Skin: normal color, warm Results & Data Results & Data Vital Signs (Past 12 Hours) Vital Signs Temp Pulse Pulse Resp BP Pulse Ox O2 Del Method 10/20/23 15:16 37.0 C 63 20 146/84 H 91 Room Air 10/20/23 15:00 61 10/20/23 11:29 36.9 C 69 20 111/74 91 Room Air 10/20/23 08:00 Room Air 10/20/23 07:32 36.8 C 60 20 124/80 90 Nasal Cannula 10/20/23 07:00 58 L O2 Flow Rate 10/20/23 15:16 10/20/23 15:00 10/20/23 11:29 10/20/23 08:00 10/20/23 07:32 2 10/20/23 07:00 Laboratory Results Short CBC 10/20/23 Range/Units 06:27 WBC 4.70 L (4.8-10.8) K/ul Hgb 13.1 (12.0-16.0) g/dl Hct 39.6 (37.0-47.0) % Plt Count 133 (130-400) K/uL BMP 10/20/23 06:27 Sodium 138 Potassium 3.7 Chloride 104 Carbon Dioxide 30 BUN 24 H Creatinine 0.86 Glucose 121 H Calcium 8.2 L (1) Closed nondisplaced fracture of greater trochanter of left femur Encounter type: initial encounter Qualified Code(s): S72.115A - Nondisplaced fracture of greater trochanter of left femur, initial encounter for closed fracture (2) Fall Encounter type: initial encounter Qualified Code(s): W19.XXXA - Unspecified fall, initial encounter (6) Chronic back pain Back pain location: back pain in unspecified location Back pain laterality: unspecified Qualified Code(s): M54.9 - Dorsalgia, unspecified; G89.29 - Other chronic pain (7) COPD (chronic obstructive pulmonary disease) COPD type: unspecified COPD Qualified Code(s): J44.9 - Chronic obstructive pulmonary disease, unspecified (10) Peripheral neuropathy Peripheral neuropathy type: polyneuropathy, unspecified Qualified Code(s): G62.9 - Polyneuropathy, unspecified (11) Hyperlipidemia Hyperlipidemia type: unspecified Qualified Code(s): E78.5 - Hyperlipidemia, unspecified (13) GERD (gastroesophageal reflux disease) Esophagitis presence: esophagitis presence not specified Qualified Code(s): K21.9 - Gastro-esophageal reflux disease without esophagitis (14) HTN (hypertension) Hypertension type: unspecified Qualified Code(s): I10 - Essential (primary) hypertension (17) Chronic congestive heart failure Heart failure type: unspecified Qualified Code(s): I50.9 - Heart failure, unspecified (18) Diabetes mellitus, type II Diabetes mellitus senior care insulin use: without senior care use Diabetes mellitus complication status: without complication Qualified Code(s): E11.9 - Type 2 diabetes mellitus without complications (19) CKD (chronic kidney disease), stage III Chronic kidney disease stage 3 subtype: stage 3b (GFR 30-44) Qualified Code(s): N18.32 - Chronic kidney disease, stage 3b (20) Iron deficiency anemia Iron deficiency anemia type: unspecified iron deficiency Qualified Code(s): D50.9 - Iron deficiency anemia, unspecified
[2023-10-20] MEDS: NICOTINE 7 MG/24 HR TDSY TD SCH (21:02)
[2023-10-21 06:47] LABS: Hematocrit (blood only) 38.6 % (37.0-47.0); Mean Corpuscular Hemoglobin 32.7 pg (25.0-34.0); Mean Corpuscular Hgb Conc 33.7 g/dL (32.0-36.0); Mean Corpuscular Volume 97.2 fL (80.0-100.0); Mean Platelet Volume 10.5 fL (9.4-12.4); Platelet Count 128 K/uL (130-400); RDW Coefficient of Variation 13.7 % (11.5-14.5); Red Blood Count 3.97 M/uL (4.20-5.40); White Blood Count 4.93 K/ul (4.8-10.8)
[2023-10-21 07:55] LABS: BUN Creatinine Ratio 28.6 (10-20); Calcium 8.3 mg/dl (8.6-10.3); Creatinine Clr Calc Pharmacy 51.7 ml/min; Est GFR (African American) 78.2 ml/min; Est GFR (Non-African American) 67.5 ml/min; Potassium 3.7 mmol/L (3.5-5.1)
--- NOTE | 2023-10-21 17:48 | Hospitalist Progress Note ---
Date of Service October 21, 2023 Assessment & Plan (1) Closed nondisplaced fracture of greater trochanter of left femur: (2) Fall: (3) Left hip pain: Plan: Radha Tong is a 78y/o F with PMHx of dyslipidemia, diet-controlled DM type II, CKD stage III, COPD, CAD, PVD w/ claudication, HTN, seizure disorder, DDD, anxiety, tobacco use disorder, viral hepatitis C, inferior-posterior HI s/p PCI of the RCA+repeat stenting (2006), CVA, paroxysmal atrial fibrillation [anticoagulated on Eliquis], DVT (09/2022), osteoarthritis, chronic back pain, chronic anemia, ischemic cardiomyopathy, congestive HF s/p biventricular ICD implantation (2008) and other problems listed below who presented to the ED for evaluation of left hip pain s/p fall and was found to have an acute nondisplaced fracture within the greater trochanter of the left femur. Acute closed nondisplaced fracture of greater trochanter of left femur Secondary to fall --Left Hip CT:Acute nondisplaced fracture within the greater trochanter of the left femur. No intertrochanteric extension by CT. MRI of the left hip could be obtained to assess for occult intertrochanteric extension. Fall precautions PT OT Appreciate orthopedics input: Conservative management Toe-touch weightbearing as tolerated on the leg with use of a walker Pain control Bowel regimen to prevent constipation Needs follow-up with orthopedics on discharge Waiting for rehab placement (4) DDD (degenerative disc disease), lumbar: (5) Chronically on opiate therapy: Plan: Hold narcotics for excess sedation (6) Chronic back pain: Plan: Chronic oral opioid therapy for lumbar DDD w/ associated back pain, which is managed by her PCP. (7) COPD (chronic obstructive pulmonary disease): Plan: No signs of acute exacerbation Continue Anoro Ellipta therapy. PRN DuoNebs (8) Tobacco use disorder: Plan: Patient reports smoking approximately 7-8 cigarettes/day. -Smoking cessation advised (9) Peripheral arterial disease: Plan: Continue Plavix Also on Eliquis (10) Peripheral neuropathy: Plan: Reports chronic peripheral neuropathy of left foot Scheduled to undergo left leg revascularization for the treatment of PVD with claudication in that extremity on October 24 w/ Dr. Marr @ [facility]. -Continue gabapentin (11) Hyperlipidemia: (12) History of hepatitis C: Plan: -Not currently on statin therapy, was on atorvastatin 20mg in the past. -According to record, she has elevation of liver enzymes when using statin therapy (13) GERD (gastroesophageal reflux disease): Plan: -Continue PPI (14) HTN (hypertension): Plan: Continue metoprolol, Lisinopril (15) H/O cardiac pacemaker: (16) History of implantable cardioverter-defibrillator (ICD) placement: Plan: Continue home medications Follows with cardiology as outpatient (17) Chronic congestive heart failure: Plan: Last ECHO:06/29/2023 and revealed the following: EF=60-65%, hypokinetic base inferior wall, mild AV sclerosis w/o significant AV stenosis, mild AVR, trace MVR, mild TVR and grade II diastolic dysfunction. Continue home Lasix Monitor volume status (18) Diabetes mellitus, type II: Plan: Last HbA1c 5.8 Diet controlled Continue insulin while hospitalized if needed Monitor BGs Patient prefers to be on regular diet (19) CKD (chronic kidney disease), stage III: Plan: Baseline creatinine appears to be ~1.0 according to [facility] records. Monitor renal function Avoid nephrotoxic agents as able (20) Iron deficiency anemia: Plan: continue ferrous sulfate supplements (21) Seizure disorder: Plan: Follows w/ [facility] [Dr. Ashlie Swift] per [facility] records. -Continue levetiracetam therapy (22) Acute bacterial conjunctivitis of left eye: Plan: Continue Trimethoprim-polymyxin B drops (23) Paroxysmal atrial fibrillation: Plan: Continue metoprolol, Eliquis (24) History of DVT (deep vein thrombosis): Plan: Continue Eliquis DVT Px Eliquis Code Status: DNR/DNI Disposition Rehab when accepted Admission and Anticipated Discharge Date Admission Date: October 18, 2023 Subjective Patient is seen and examined at bedside Was having PT during my encounter this morning Hip pain is controlled with medications No other new complaints Denies any chest pain, dyspnea, dizziness, nausea, vomiting, abdominal pain Waiting for rehab placement Review of Systems Review of Systems: All systems reviewed & are unremarkable except as noted in Subjective Physical Exam Physical Exam: Physical Exam: Vitals signs as noted above General Appearance:Moderately built and nourished, no apparent distress Head: normocephalic, Atraumatic Eyes: normal inspection, EOMI Neck: supple, Trachea midline Respiratory/Chest: Decreased breath sounds, CTA, No accessory muscle use Cardiovascular: S1, S2, No murmur,+Pacer Abdomen/GI:Soft, Non tender, Bowel sounds present Extremities/Musculoskeletal:normal inspection, no edema, decreased left lower extremity ROM Neurologic/Psych:AAOX3, grossly no focal neurological deficits Skin: normal color, warm Results & Data Results & Data Vital Signs (Past 12 Hours) Vital Signs Temp Pulse Pulse Resp BP Pulse Ox O2 Del Method 10/21/23 15:01 68 10/21/23 11:29 36.8 C 74 16 96/53 L 91 Nasal Cannula 10/21/23 08:08 37.1 C 66 16 147/76 H 94 Nasal Cannula 10/21/23 07:33 Room Air 10/21/23 07:05 51 L O2 Flow Rate 10/21/23 15:01 10/21/23 11:29 3 10/21/23 08:08 2 10/21/23 07:33 10/21/23 07:05 Laboratory Results Short CBC 10/21/23 Range/Units 06:00 WBC 4.93 (4.8-10.8) K/ul Hgb 13.0 (12.0-16.0) g/dl Hct 38.6 (37.0-47.0) % Plt Count 128 L (130-400) K/uL BMP 10/21/23 06:00 Sodium 138 Potassium 3.7 Chloride 102 Carbon Dioxide 31 BUN 24 H Creatinine 0.84 Glucose 91 Calcium 8.3 L (1) Closed nondisplaced fracture of greater trochanter of left femur Encounter type: initial encounter Qualified Code(s): S72.115A - Nondisplaced fracture of greater trochanter of left femur, initial encounter for closed fracture (2) Fall Encounter type: initial encounter Qualified Code(s): W19.XXXA - Unspecified fall, initial encounter (6) Chronic back pain Back pain location: back pain in unspecified location Back pain laterality: unspecified Qualified Code(s): M54.9 - Dorsalgia, unspecified; G89.29 - Other chronic pain (7) COPD (chronic obstructive pulmonary disease) COPD type: unspecified COPD Qualified Code(s): J44.9 - Chronic obstructive pulmonary disease, unspecified (10) Peripheral neuropathy Peripheral neuropathy type: polyneuropathy, unspecified Qualified Code(s): G62.9 - Polyneuropathy, unspecified (11) Hyperlipidemia Hyperlipidemia type: unspecified Qualified Code(s): E78.5 - Hyperlipidemia, unspecified (13) GERD (gastroesophageal reflux disease) Esophagitis presence: esophagitis presence not specified Qualified Code(s): K21.9 - Gastro-esophageal reflux disease without esophagitis (14) HTN (hypertension) Hypertension type: unspecified Qualified Code(s): I10 - Essential (primary) hypertension (17) Chronic congestive heart failure Heart failure type: unspecified Qualified Code(s): I50.9 - Heart failure, unspecified (18) Diabetes mellitus, type II Diabetes mellitus terminal superintendent insulin use: without fci use Diabetes mellitus complication status: without complication Qualified Code(s): E11.9 - Type 2 diabetes mellitus without complications (19) CKD (chronic kidney disease), stage III Chronic kidney disease stage 3 subtype: stage 3b (GFR 30-44) Qualified Code(s): N18.32 - Chronic kidney disease, stage 3b (20) Iron deficiency anemia Iron deficiency anemia type: unspecified iron deficiency Qualified Code(s): D50.9 - Iron deficiency anemia, unspecified
[2023-10-21] MEDS: GABAPENTIN 600 MG TAB PO STA (20:50)
[2023-10-22] MEDS: oxyCODONE HCL IR 5 MG TAB (IMMEDIATE RELEASE) PO PRN (05:59)
--- NOTE | 2023-10-22 16:19 | Hospitalist Progress Note ---
Date of Service October 22, 2023 Assessment & Plan (1) Closed nondisplaced fracture of greater trochanter of left femur: (2) Fall: (3) Left hip pain: Plan: Radha Tong is a 78y/o F with PMHx of dyslipidemia, diet-controlled DM type II, CKD stage III, COPD, CAD, PVD w/ claudication, HTN, seizure disorder, DDD, anxiety, tobacco use disorder, viral hepatitis C, inferior-posterior VA s/p PCI of the RCA+repeat stenting (2006), CVA, paroxysmal atrial fibrillation [anticoagulated on Eliquis], DVT (09/2022), osteoarthritis, chronic back pain, chronic anemia, ischemic cardiomyopathy, congestive HF s/p biventricular ICD implantation (2008) and other problems listed below who presented to the ED for evaluation of left hip pain s/p fall and was found to have an acute nondisplaced fracture within the greater trochanter of the left femur. Acute closed nondisplaced fracture of greater trochanter of left femur Secondary to fall --Left Hip CT:Acute nondisplaced fracture within the greater trochanter of the left femur. No intertrochanteric extension by CT. MRI of the left hip could be obtained to assess for occult intertrochanteric extension. Fall precautions PT OT Appreciate orthopedics input: Conservative management Toe-touch weightbearing as tolerated on the leg with use of a walker Pain control Bowel regimen to prevent constipation Needs follow-up with orthopedics on discharge Waiting for rehab placement Case management to help with discharge planning (4) DDD (degenerative disc disease), lumbar: (5) Chronically on opiate therapy: Plan: Hold narcotics for excess sedation (6) Chronic back pain: Plan: Chronic oral opioid therapy for lumbar DDD w/ associated back pain, which is managed by her PCP. (7) COPD (chronic obstructive pulmonary disease): Plan: No signs of acute exacerbation Continue Anoro Ellipta therapy. PRN DuoNebs (8) Tobacco use disorder: Plan: Patient reports smoking approximately 7-8 cigarettes/day. -Smoking cessation advised (9) Peripheral arterial disease: Plan: Continue Plavix Also on Eliquis (10) Peripheral neuropathy: Plan: Reports chronic peripheral neuropathy of left foot Scheduled to undergo left leg revascularization for the treatment of PVD with claudication in that extremity on October 24 w/ Dr. Marr @ [facility] [place]. -Continue gabapentin (11) Hyperlipidemia: (12) History of hepatitis C: Plan: -Not currently on statin therapy, was on atorvastatin 20mg in the past. -According to record, she has elevation of liver enzymes when using statin therapy (13) GERD (gastroesophageal reflux disease): Plan: -Continue PPI (14) HTN (hypertension): Plan: Continue metoprolol BP variable Hold Lisinopril for now adjust meds as needed (15) H/O cardiac pacemaker: (16) History of implantable cardioverter-defibrillator (ICD) placement: Plan: Continue home medications Follows with cardiology as outpatient (17) Chronic congestive heart failure: Plan: Last ECHO:06/29/2023 and revealed the following: EF=60-65%, hypokinetic base inferior wall, mild AV sclerosis w/o significant AV stenosis, mild AVR, trace MVR, mild TVR and grade II diastolic dysfunction. Continue home Lasix Monitor volume status (18) Diabetes mellitus, type II: Plan: Last HbA1c 5.8 Diet controlled Continue insulin while hospitalized if needed Monitor BGs Patient prefers to be on regular diet (19) CKD (chronic kidney disease), stage III: Plan: Baseline creatinine appears to be ~1.0 according to [facility] records. Monitor renal function Avoid nephrotoxic agents as able (20) Iron deficiency anemia: Plan: continue ferrous sulfate supplements (21) Seizure disorder: Plan: Follows w/ [facility] [Dr. Ashlie Swift] per [facility] records. -Continue levetiracetam therapy (22) Acute bacterial conjunctivitis of left eye: Plan: Continue Trimethoprim-polymyxin B drops (23) Paroxysmal atrial fibrillation: Plan: Continue metoprolol, Eliquis (24) History of DVT (deep vein thrombosis): Plan: Continue Eliquis DVT Px Eliquis Code Status: DNR/DNI Disposition Rehab when accepted Admission and Anticipated Discharge Date Admission Date: October 18, 2023 Subjective Patient is seen and examined at bedside States having neuropathy pain overnight No other complaints this morning Reports hip pain with activity Denies any chest pain, dyspnea, dizziness, nausea, vomiting, abdominal pain Eager to be discharged to rehab facility Review of Systems Review of Systems: All systems reviewed & are unremarkable except as noted in Subjective Physical Exam Physical Exam: Physical Exam: Vitals signs as noted above General Appearance:Moderately built and nourished, no apparent distress Head: normocephalic, Atraumatic Eyes: normal inspection, EOMI Neck: supple, Trachea midline Respiratory/Chest: Decreased breath sounds, CTA, No accessory muscle use Cardiovascular: S1, S2, No murmur,+Pacer Abdomen/GI:Soft, Non tender, Bowel sounds present Extremities/Musculoskeletal:normal inspection, no edema, decreased left lower extremity ROM Neurologic/Psych:AAOX3, grossly no focal neurological deficits Skin: normal color, warm Results & Data Results & Data Vital Signs (Past 12 Hours) Vital Signs Temp Pulse Pulse Pulse Resp BP BP 10/22/23 15:47 36.7 C 62 19 81/44 L 10/22/23 15:37 63 10/22/23 12:12 37.0 C 65 20 101/64 10/22/23 08:12 36.4 C L 52 L 18 110/63 10/22/23 07:31 10/22/23 07:23 55 L 10/22/23 04:25 36.9 C 51 L 16 110/68 Pulse Ox O2 Del Method O2 Flow Rate 10/22/23 15:47 90 Nasal Cannula 2 10/22/23 15:37 10/22/23 12:12 90 Nasal Cannula 2 10/22/23 08:12 91 Nasal Cannula 3 10/22/23 07:31 Nasal Cannula 3 10/22/23 07:23 10/22/23 04:25 95 Nasal Cannula 3 (1) Closed nondisplaced fracture of greater trochanter of left femur Encounter type: initial encounter Qualified Code(s): S72.115A - Nondisplaced fracture of greater trochanter of left femur, initial encounter for closed fracture (2) Fall Encounter type: initial encounter Qualified Code(s): W19.XXXA - Unspecified fall, initial encounter (6) Chronic back pain Back pain location: back pain in unspecified location Back pain laterality: unspecified Qualified Code(s): M54.9 - Dorsalgia, unspecified; G89.29 - Other chronic pain (7) COPD (chronic obstructive pulmonary disease) COPD type: unspecified COPD Qualified Code(s): J44.9 - Chronic obstructive pulmonary disease, unspecified (10) Peripheral neuropathy Peripheral neuropathy type: polyneuropathy, unspecified Qualified Code(s): G62.9 - Polyneuropathy, unspecified (11) Hyperlipidemia Hyperlipidemia type: unspecified Qualified Code(s): E78.5 - Hyperlipidemia, unspecified (13) GERD (gastroesophageal reflux disease) Esophagitis presence: esophagitis presence not specified Qualified Code(s): K21.9 - Gastro-esophageal reflux disease without esophagitis (14) HTN (hypertension) Hypertension type: unspecified Qualified Code(s): I10 - Essential (primary) hypertension (17) Chronic congestive heart failure Heart failure type: unspecified Qualified Code(s): I50.9 - Heart failure, unspecified (18) Diabetes mellitus, type II Diabetes mellitus terminal system operator insulin use: without terminal system operator use Diabetes mellitus complication status: without complication Qualified Code(s): E11.9 - Type 2 diabetes mellitus without complications (19) CKD (chronic kidney disease), stage III Chronic kidney disease stage 3 subtype: stage 3b (GFR 30-44) Qualified Code(s): N18.32 - Chronic kidney disease, stage 3b (20) Iron deficiency anemia Iron deficiency anemia type: unspecified iron deficiency Qualified Code(s): D50.9 - Iron deficiency anemia, unspecified
[2023-10-22] MEDS: GABAPENTIN 600 MG TAB PO SCH (20:43)
[2023-10-22] MEDS: MoRPHine SULFATE 2 MG/ML CARP IV PRN (21:11)
--- NOTE | 2023-10-23 10:12 | Orthopedic Progress Note ---
Date of Service October 23, 2023 Assessment & Plan (1) Closed nondisplaced fracture of greater trochanter of left femur: Plan: 2 views of left hip with AP pelvis x-rays were ordered to be performed tomorrow morning. The patient was educated regarding today's findings. Conservative care measures were discussed. Continue with physical therapy. She will clearly need assistance given her limited participation and significant assistance required in PT. No surgical intervention is required. Toe-touch weightbearing as tolerated on the leg with use of a walker. Continue with ice and oral pain medication. Follow-up in the office for reassessment and new imaging in 10 to 14 days. Admission and Anticipated Discharge Date Admission Date: October 18, 2023 Subjective This 78-year-old female is seen today for follow-up of a nondisplaced left greater trochanter fracture. Patient states she continues to have pain over the lateral aspect of the left hip as well as in her groin with any type of movement of her leg. She states that last night she did have a burning type neuropathic pain in her foot that was well-controlled with oral narcotic pain medication and ice. Patient states that she still has difficulty lifting her leg off of the bed. She understands that she will need to either go to or a rehab facility or senior care facility upon discharge. I advised her that we will be obtaining a new x-ray of her hip tomorrow. Patient is unable to have an MRI due to having a pacemaker that is noncompatible. Currently she denies chest pain, shortness of breath, fever, chills, sweats or numbness or tingling in her left lower extremity. She also denies nausea, vomiting, diarrhea or difficulty voiding. Review of Systems Review of Systems: All systems reviewed & are unremarkable except as noted in Subjective Physical Exam Physical Exam: Left hip: Patient experiences exquisite tenderness to palpation over the left greater trochanter with associated edema. Patient also has some mild tenderness to palpation in the groin. There is no erythema or ecchymosis. Patient has difficulty performing active straight leg raise test and has significant pain with passive straight leg raise testing. Patient also experiences significant pain in the groin with passive logroll testing. She is able to actively dorsi and plantarflex her foot without issue. She was able to flex her knee to 90 degrees during today's visit. She is able to detect light sensation to touch over the pads of all digits and over the dermatomes of her left lower extremity. Her peripheral pulses are easily palpable. She is neurovascularly intact. Results & Data Vital Signs (Past 12 Hours) Vital Signs Temp Pulse Pulse Resp BP Pulse Ox O2 Del Method 10/23/23 08:34 57 L 10/23/23 07:41 37.1 C 58 L 20 131/67 92 Nasal Cannula 10/23/23 07:02 Nasal Cannula 10/23/23 02:51 36.8 C 60 18 126/68 93 Nasal Cannula 10/22/23 23:59 37.0 C 76 20 106/69 92 Nasal Cannula O2 Flow Rate 10/23/23 08:34 10/23/23 07:41 2 10/23/23 07:02 3 10/23/23 02:51 3 10/22/23 23:59 2 Diagnostic Findings Laboratory Results WBC 4.93 K/ul (4.8-10.8) 10/21/23 06:00 RBC 3.97 M/uL (4.20-5.40) L 10/21/23 06:00 Hgb 13.0 g/dl (12.0-16.0) 10/21/23 06:00 Hct 38.6 % (37.0-47.0) 10/21/23 06:00 MCV 97.2 fL (80.0-100.0) 10/21/23 06:00 MCH 32.7 pg (25.0-34.0) 10/21/23 06:00 MCHC 33.7 g/dL (32.0-36.0) 10/21/23 06:00 RDW Std Deviation 47.0 fL (36.4-46.3) H 10/21/23 06:00 RDW Coeff of Julia 13.7 % (11.5-14.5) 10/21/23 06:00 Plt Count 128 K/uL (130-400) L 10/21/23 06:00 MPV 10.5 fL (9.4-12.4) 10/21/23 06:00 Immature Gran % (Auto) 0.4 % 10/18/23 04:12 Neut % (Auto) 70.3 % 10/18/23 04:12 Lymph % (Auto) 19.1 % 10/18/23 04:12 [place] % (Auto) 8.5 % 10/18/23 04:12 Eos % (Auto) 1.3 % 10/18/23 04:12 Baso % (Auto) 0.4 % 10/18/23 04:12 Neut # (Auto) 3.87 K/uL (1.40-6.50) 10/18/23 04:12 Lymph # (Auto) 1.05 K/uL (1.20-3.40) L 10/18/23 04:12 [place] # (Auto) 0.47 K/uL (0.11-0.59) 10/18/23 04:12 Eos # (Auto) 0.07 K/uL (0.00-0.50) 10/18/23 04:12 Baso # (Auto) 0.02 K/uL (0.00-0.20) 10/18/23 04:12 Immature Gran # (Auto) 0.02 K/uL (0.01-0.20) 10/18/23 04:12 PT 11.4 Seconds (9.0-12.0) 10/18/23 04:12 INR 1.1 (0.9-1.1) 10/18/23 04:12 APTT 28 Seconds (21-31) 10/18/23 04:12 PTT Ratio 1.0 10/18/23 04:12 Sodium 138 mmol/L (136-145) 10/21/23 06:00 Potassium 3.7 mmol/L (3.5-5.1) 10/21/23 06:00 Chloride 102 mmol/L (98-107) 10/21/23 06:00 Carbon Dioxide 31 mmol/L (21-32) 10/21/23 06:00 Anion Gap 5 (3-11) 10/21/23 06:00 BUN 24 mg/dl (6-23) H 10/21/23 06:00 Creatinine 0.84 mg/dl (0.6-1.2) 10/21/23 06:00 Est Cr Clr Drug Dosing 51.7 ml/min 10/21/23 06:00 Est GFR ( Amer) 78.2 ml/min 10/21/23 06:00 Est GFR (Non-Af Amer) 67.5 ml/min 10/21/23 06:00 BUN/Creatinine Ratio 28.6 (10-20) H 10/21/23 06:00 Glucose 91 mg/dl (70-99(Fasting)) 10/21/23 06:00 Estimat Average Glucose 120 mg/dl 10/19/23 06:05 Hemoglobin A1c 5.8 % (4.5-5.6) H 10/19/23 06:05 Calcium 8.3 mg/dl (8.6-10.3) L 10/21/23 06:00 Total Bilirubin 0.4 mg/dl (0.2-1.0) 10/18/23 04:12 AST 13 U/L (13-39) 10/18/23 04:12 ALT 9 U/L (7-52) 10/18/23 04:12 Alkaline Phosphatase 64 U/L (34-104) 10/18/23 04:12 Total Protein 6.7 gm/dl (6.0-8.3) 10/18/23 04:12 Albumin 4.1 gm/dl (3.4-5.0) 10/18/23 04:12 Globulin 2.6 gm/dl (2.5-4.0) 10/18/23 04:12 Albumin/Globulin Ratio 1.6 (0.9-2) 10/18/23 04:12 Triglycerides 113 mg/dl (0-150) 10/19/23 06:05 Cholesterol 124 mg/dl (0-200) 10/19/23 06:05 LDL Cholesterol, Calc 63 mg/dl 10/19/23 06:05 VLDL Cholesterol, Calc 23 mg/dl (0-30) 10/19/23 06:05 HDL Cholesterol 38 mg/dl 10/19/23 06:05 Cholesterol/HDL Ratio 3.3 (0-5) 10/19/23 06:05 Urine Color Yellow 10/18/23 07:22 Urine Appearance Clear (Clear) 10/18/23 07:22 Urine pH 6.0 (4.5-7.5) 10/18/23 07:22 Ur Specific [place] 1.015 (1.000-1.030) 10/18/23 07:22 Urine Protein Trace (Negative) H 10/18/23 07:22 Urine Glucose (UA) Negative (Negative) 10/18/23 07:22 Urine Ketones Negative (Negative) 10/18/23 07:22 Urine Blood Negative (Negative) 10/18/23 07:22 Urine Nitrite Negative (Negative) 10/18/23 07:22 Urine Bilirubin Negative (Negative) 10/18/23 07:22 Urine Urobilinogen Negative (Negative) 10/18/23 07:22 Ur Leukocyte Esterase Negative (Negative) 10/18/23 07:22 Urine WBC (Auto) 0-5 /hpf (0-5) 10/18/23 07:22 Urine RBC (Auto) 0-2 /hpf (0-2) 10/18/23 07:22 U Hyaline Cast (Auto) 0-2 /lpf (0-2) 10/18/23 07:22 U Epithel Cells (Auto) 0-2 /hpf (0-2) 10/18/23 07:22 Urine Bacteria (Auto) None Seen (None Seen) 10/18/23 07:22 Impressions Hip/Pelvis X-Ray 10/18/23 04:16 XR hip LT 2V w pelvis CLINICAL HISTORY: left hip pain, fall TECHNIQUE: 2 views of the left hip and single frontal view of the pelvis were obtained. Comparison: Comparison is made to hip radiograph 10/05/2022 FINDINGS: There is no evidence of an acute fracture. Degenerative changes are seen in the hip joint. No soft tissue abnormality is seen. IMPRESSION: Degenerative changes without evidence of acute abnormality. ACT 112: Negative or not required by law. Electronically signed by: Dennis Tobar M.D. 10/18/2023 8:39 AM Chest X-Ray 10/18/23 04:17 XR chest 1V portable CLINICAL HISTORY: fall, hip pain COMPARISON STUDY: Chest CT August 18, 2020. Chest radiograph June 28, 2023. FINDINGS: Left subclavian biventricular pacer/AICD is in place. Moderate cardiomegaly is unchanged. No evidence for pulmonary edema. No pneumothorax or pleural effusion. No consolidation is present. IMPRESSION: No acute cardiopulmonary findings. No change in appearance of the chest. ACT 112: Negative or not required by law. Electronically signed by: Korey Cobb M.D. 10/18/2023 7:[address] 10/18/23 05:16 CT hip LT wo con CLINICAL HISTORY: fall, pain, possible fx on X-ray COMPARISON STUDY: Pelvis and left hip radiographs performed earlier today. CT of the abdomen and pelvis June 28, 2023. TECHNIQUE: Axial images of the left hip were obtained without IV contrast. Sagittal and coronal reconstructions were viewed. Automated exposure control was utilized for the study. A dose lowering technique was utilized adhering to the principles of ALARA. FINDINGS: Sigmoid diverticulosis is noted. There is no acute fracture within visualized portions of the left hemipelvis. There is an acute nondisplaced fracture of the greater trochanter of the left femur. Fracture extends to the base of the greater trochanter. No intertrochanteric extension is identified by CT. No osseous lesions are identified. Mild joint space narrowing and modest. Osteophytosis of the left hip is present. IMPRESSION: Acute nondisplaced fracture within the greater trochanter of the left femur. No intertrochanteric extension by CT. MRI of the left hip could be obtained to assess for occult intertrochanteric extension. ACT 112: Negative or not required by law. Electronically signed by: Korey Cobb M.D. 10/18/2023 7:00 AM (1) Closed nondisplaced fracture of greater trochanter of left femur Encounter type: initial encounter Qualified Code(s): S72.115A - Nondisplaced fracture of greater trochanter of left femur, initial encounter for closed fracture
--- NOTE | 2023-10-23 17:50 | Hospitalist Progress Note ---
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 Acute closed nondisplaced fracture of greater trochanter of left femur Secondary to fall --Left Hip CT:Acute nondisplaced fracture within the greater trochanter of the left femur. No intertrochanteric extension by CT. MRI of the left hip could be obtained to assess for occult intertrochanteric extension. Fall precautions PT OT Appreciate orthopedics input: Conservative management Toe-touch weightbearing as tolerated on the leg with use of a walker Bowel regimen to prevent constipation Needs follow-up with orthopedics on discharge Waiting for rehab placement Plan for repeat hip x-ray tomorrow by Ortho Pain is controlled (4) DDD (degenerative disc disease), lumbar: (5) Chronically on opiate therapy: Plan: Hold narcotics for excess sedation (6) Chronic back pain: Plan: Chronic oral opioid therapy for lumbar DDD w/ associated back pain, which is managed by her PCP. (7) COPD (chronic obstructive pulmonary disease): Plan: No signs of acute exacerbation Continue Anoro Ellipta therapy. PRN DuoNebs (8) Tobacco use disorder: Plan: Patient reports smoking approximately 7-8 cigarettes/day. -Smoking cessation advised (9) Peripheral arterial disease: Plan: Continue Plavix Also on Eliquis (10) Peripheral neuropathy: Plan: Reports chronic peripheral neuropathy of left foot Scheduled to undergo left leg revascularization for the treatment of PVD with claudication in that extremity on October 24 w/ Dr. Marr @ [facility] [place]. -Continue gabapentin (11) Hyperlipidemia: (12) History of hepatitis C: Plan: -Not currently on statin therapy, was on atorvastatin 20mg in the past. -According to record, she has elevation of liver enzymes when using statin therapy (13) GERD (gastroesophageal reflux disease): Plan: -Continue PPI (14) HTN (hypertension): Plan: Continue metoprolol BP variable Hold Lisinopril for now as BP relatively low adjust meds as needed (15) H/O cardiac pacemaker: (16) History of implantable cardioverter-defibrillator (ICD) placement: Plan: Continue home medications Follows with cardiology as outpatient (17) Chronic congestive heart failure: Plan: Last ECHO:06/29/2023 and revealed the following: EF=60-65%, hypokinetic base inferior wall, mild AV sclerosis w/o significant AV stenosis, mild AVR, trace MVR, mild TVR and grade II diastolic dysfunction. Continue home Lasix Monitor volume status (18) Diabetes mellitus, type II: Plan: Last HbA1c 5.8 Diet controlled Continue insulin while hospitalized if needed Monitor BGs Patient prefers to be on regular diet (19) CKD (chronic kidney disease), stage III: Plan: Baseline creatinine appears to be ~1.0 according to [facility] records. Monitor renal function Avoid nephrotoxic agents as able (20) Iron deficiency anemia: Plan: continue ferrous sulfate supplements (21) Seizure disorder: Plan: Follows w/ [facility] [Dr. Ashlie Swift] per [facility] records. -Continue levetiracetam therapy (22) Acute bacterial conjunctivitis of left eye: Plan: Continue Trimethoprim-polymyxin B drops (23) Paroxysmal atrial fibrillation: Plan: Continue metoprolol, Eliquis (24) History of DVT (deep vein thrombosis): Plan: Continue Eliquis DVT Px Eliquis Code Status: DNR/DNI Disposition Rehab when accepted Admission and Anticipated Discharge Date Admission Date: October 18, 2023 Subjective Patient is seen and examined at bedside No new complaints Hip pain is controlled Denies any chest pain, dyspnea, dizziness, nausea, vomiting, abdominal pain Waiting for rehab Review of Systems Review of Systems: All systems reviewed & are unremarkable except as noted in Subjective Physical Exam Physical Exam: Physical Exam: Vitals signs as noted above General Appearance:Moderately built and nourished, no apparent distress Head: normocephalic, Atraumatic Eyes: normal inspection, EOMI Neck: supple, Trachea midline Respiratory/Chest: Decreased breath sounds, CTA, No accessory muscle use Cardiovascular: S1, S2, No murmur,+Pacer Abdomen/GI:Soft, Non tender, Bowel sounds present Extremities/Musculoskeletal:normal inspection, no edema, decreased left lower extremity ROM Neurologic/Psych:AAOX3, grossly no focal neurological deficits Skin: normal color, warm Results & Data Results & Data Vital Signs (Past 12 Hours) Vital Signs Temp Pulse Pulse Resp BP BP Pulse Ox 10/23/23 16:06 78 10/23/23 15:44 36.9 C 76 16 114/76 93 10/23/23 11:43 36.3 C L 76 20 112/72 90 10/23/23 08:34 57 L 10/23/23 07:41 37.1 C 58 L 20 131/67 92 10/23/23 07:02 O2 Del Method O2 Flow Rate 10/23/23 16:06 10/23/23 15:44 Nasal Cannula 2 10/23/23 11:43 Nasal Cannula 2 10/23/23 08:34 10/23/23 07:41 Nasal Cannula 2 10/23/23 07:02 Nasal Cannula 3 (1) Closed nondisplaced fracture of greater trochanter of left femur Encounter type: initial encounter Qualified Code(s): S72.115A - Nondisplaced fracture of greater trochanter of left femur, initial encounter for closed fracture (2) Fall Encounter type: initial encounter Qualified Code(s): W19.XXXA - Unspecified fall, initial encounter (6) Chronic back pain Back pain location: back pain in unspecified location Back pain laterality: unspecified Qualified Code(s): M54.9 - Dorsalgia, unspecified; G89.29 - Other chronic pain (7) COPD (chronic obstructive pulmonary disease) COPD type: unspecified COPD Qualified Code(s): J44.9 - Chronic obstructive pulmonary disease, unspecified (10) Peripheral neuropathy Peripheral neuropathy type: polyneuropathy, unspecified Qualified Code(s): G62.9 - Polyneuropathy, unspecified (11) Hyperlipidemia Hyperlipidemia type: unspecified Qualified Code(s): E78.5 - Hyperlipidemia, unspecified (13) GERD (gastroesophageal reflux disease) Esophagitis presence: esophagitis presence not specified Qualified Code(s): K21.9 - Gastro-esophageal reflux disease without esophagitis (14) HTN (hypertension) Hypertension type: unspecified Qualified Code(s): I10 - Essential (primary) hypertension (17) Chronic congestive heart failure Heart failure type: unspecified Qualified Code(s): I50.9 - Heart failure, unspecified (18) Diabetes mellitus, type II Diabetes mellitus fpc insulin use: without fpc use Diabetes mellitus complication status: without complication Qualified Code(s): E11.9 - Type 2 diabetes mellitus without complications (19) CKD (chronic kidney disease), stage III Chronic kidney disease stage 3 subtype: stage 3b (GFR 30-44) Qualified Code(s): N18.32 - Chronic kidney disease, stage 3b (20) Iron deficiency anemia Iron deficiency anemia type: unspecified iron deficiency Qualified Code(s): D50.9 - Iron deficiency anemia, unspecified
[2023-10-24] MEDS ORDERED: Nursing to Pharmacy Communication SCH (08:30)
--- NOTE | 2023-10-24 12:56 | Hospitalist Progress Note ---
Date of Service October 24, 2023 Assessment & Plan (1) Closed nondisplaced fracture of greater trochanter of left femur: (2) Fall: (3) Left hip pain: Plan: Radha Tong is a 78y/o F with PMHx of dyslipidemia, diet-controlled DM type II, CKD stage III, COPD, CAD, PVD w/ claudication, HTN, seizure disorder, DDD, anxiety, tobacco use disorder, viral hepatitis C, inferior-posterior [place] s/p PCI of the RCA+repeat stenting (2006), CVA, paroxysmal atrial fibrillation [anticoagulated on Eliquis], DVT (09/2022), osteoarthritis, chronic back pain, chronic anemia, ischemic cardiomyopathy, congestive HF s/p biventricular ICD implantation (2008) and other problems listed below who presented to the ED for evaluation of left hip pain s/p fall and was found to have an acute nondisplaced fracture within the greater trochanter of the left femur. Acute closed nondisplaced fracture of greater trochanter of left femur Secondary to fall --Left Hip CT:Acute nondisplaced fracture within the greater trochanter of the left femur. No intertrochanteric extension by CT. MRI of the left hip could be obtained to assess for occult intertrochanteric extension. Fall precautions PT OT Appreciate orthopedics input: Conservative management Toe-touch weightbearing as tolerated on the leg with use of a walker Bowel regimen to prevent constipation Needs follow-up with orthopedics on discharge Pain is controlled Discussed with orthopedics today--okay to discharge to rehab Plan to discharge rehab facility today (4) DDD (degenerative disc disease), lumbar: (5) Chronically on opiate therapy: Plan: Hold narcotics for excess sedation (6) Chronic back pain: Plan: Chronic oral opioid therapy for lumbar DDD w/ associated back pain, which is managed by her PCP. (7) COPD (chronic obstructive pulmonary disease): Plan: No signs of acute exacerbation Continue Anoro Ellipta therapy. PRN DuoNebs (8) Tobacco use disorder: Plan: Patient reports smoking approximately 7-8 cigarettes/day. -Smoking cessation advised (9) Peripheral arterial disease: Plan: Continue Plavix Also on Eliquis (10) Peripheral neuropathy: Plan: Reports chronic peripheral neuropathy of left foot Scheduled to undergo left leg revascularization for the treatment of PVD with claudication in that extremity on October 24 w/ Dr. Marr @ [facility] [place]. -Continue gabapentin (11) Hyperlipidemia: (12) History of hepatitis C: Plan: -Not currently on statin therapy, was on atorvastatin 20mg in the past. -According to record, she has elevation of liver enzymes when using statin therapy (13) GERD (gastroesophageal reflux disease): Plan: -Continue PPI (14) HTN (hypertension): Plan: Continue metoprolol BP variable Hold Lisinopril for now as BP relatively low adjust meds as needed (15) H/O cardiac pacemaker: (16) History of implantable cardioverter-defibrillator (ICD) placement: Plan: Continue home medications Follows with cardiology as outpatient (17) Chronic congestive heart failure: Plan: Last ECHO:06/29/2023 and revealed the following: EF=60-65%, hypokinetic base inferior wall, mild AV sclerosis w/o significant AV stenosis, mild AVR, trace MVR, mild TVR and grade II diastolic dysfunction. Continue home Lasix Monitor volume status (18) Diabetes mellitus, type II: Plan: Last HbA1c 5.8 Diet controlled Continue insulin while hospitalized if needed Monitor BGs Patient prefers to be on regular diet (19) CKD (chronic kidney disease), stage III: Plan: Baseline creatinine appears to be ~1.0 according to [facility] records. Monitor renal function Avoid nephrotoxic agents as able (20) Iron deficiency anemia: Plan: continue ferrous sulfate supplements (21) Seizure disorder: Plan: Follows w/ [facility] [Dr. Ashlie Swift] per [facility] records. -Continue levetiracetam therapy (22) Acute bacterial conjunctivitis of left eye: Plan: Continue Trimethoprim-polymyxin B drops (23) Paroxysmal atrial fibrillation: Plan: Continue metoprolol, Eliquis (24) History of DVT (deep vein thrombosis): Plan: Continue Eliquis DVT Px Eliquis Code Status: DNR/DNI Disposition Rehab Admission and Anticipated Discharge Date Admission Date: October 18, 2023 Subjective Patient is seen and examined at bedside Discussed with orthopedics today--okay to discharge to rehab Denies any chest pain, dyspnea, dizziness, nausea, vomiting, abdominal pain Pain is controlled Offers no new complaints Plan to discharge to rehab facility Review of Systems Review of Systems: All systems reviewed & are unremarkable except as noted in Subjective Physical Exam Physical Exam: Physical Exam: Vitals signs as noted above General Appearance:Moderately built and nourished, no apparent distress Head: normocephalic, Atraumatic Eyes: normal inspection, EOMI Neck: supple, Trachea midline Respiratory/Chest: Decreased breath sounds, CTA, No accessory muscle use Cardiovascular: S1, S2, No murmur,+Pacer Abdomen/GI:Soft, Non tender, Bowel sounds present Extremities/Musculoskeletal:normal inspection, no edema, decreased left lower extremity ROM Neurologic/Psych:AAOX3, grossly no focal neurological deficits Skin: normal color, warm Results & Data Results & Data Vital Signs (Past 12 Hours) Vital Signs Temp Pulse Pulse Resp BP Pulse Ox O2 Del Method 10/24/23 11:34 37.0 C 71 18 116/76 92 Nasal Cannula 10/24/23 08:30 Nasal Cannula 10/24/23 07:45 37.3 C 65 18 137/80 90 Room Air 10/24/23 07:00 61 10/24/23 03:51 55 L 18 127/75 92 Nasal Cannula O2 Flow Rate 10/24/23 11:34 10/24/23 08:30 2 10/24/23 07:45 10/24/23 07:00 10/24/23 03:51 2 (1) Closed nondisplaced fracture of greater trochanter of left femur Encounter type: initial encounter Qualified Code(s): S72.115A - Nondisplaced fracture of greater trochanter of left femur, initial encounter for closed fracture (2) Fall Encounter type: initial encounter Qualified Code(s): W19.XXXA - Unspecified fall, initial encounter (6) Chronic back pain Back pain location: back pain in unspecified location Back pain laterality: unspecified Qualified Code(s): M54.9 - Dorsalgia, unspecified; G89.29 - Other chronic pain (7) COPD (chronic obstructive pulmonary disease) COPD type: unspecified COPD Qualified Code(s): J44.9 - Chronic obstructive pulmonary disease, unspecified (10) Peripheral neuropathy Peripheral neuropathy type: polyneuropathy, unspecified Qualified Code(s): G62.9 - Polyneuropathy, unspecified (11) Hyperlipidemia Hyperlipidemia type: unspecified Qualified Code(s): E78.5 - Hyperlipidemia, unspecified (13) GERD (gastroesophageal reflux disease) Esophagitis presence: esophagitis presence not specified Qualified Code(s): K21.9 - Gastro-esophageal reflux disease without esophagitis (14) HTN (hypertension) Hypertension type: unspecified Qualified Code(s): I10 - Essential (primary) hypertension (17) Chronic congestive heart failure Heart failure type: unspecified Qualified Code(s): I50.9 - Heart failure, unspecified (18) Diabetes mellitus, type II Diabetes mellitus fci insulin use: without intermediate frame tender use Diabetes mellitus complication status: without complication Qualified Code(s): E11.9 - Type 2 diabetes mellitus without complications (19) CKD (chronic kidney disease), stage III Chronic kidney disease stage 3 subtype: stage 3b (GFR 30-44) Qualified Code(s): N18.32 - Chronic kidney disease, stage 3b (20) Iron deficiency anemia Iron deficiency anemia type: unspecified iron deficiency Qualified Code(s): D50.9 - Iron deficiency anemia, unspecified
--- NOTE | 2023-10-24 13:08 | Discharge Summary ---
Date of Service October 24, 2023 Admission HPI Per Admitting Provider aRdha Tong is a 78y/o F with PMHx of dyslipidemia, diet-controlled DM type II, CKD stage III, COPD, CAD, PVD w/ claudication, HTN, seizure disorder, DDD, anxiety, tobacco use disorder, viral hepatitis C, inferior-posterior FL s/p PCI of the RCA+repeat stenting (2006), CVA, paroxysmal atrial fibrillation [ anticoagulated on Eliquis], DVT (09/2022), osteoarthritis, chronic back pain, chronic anemia, ischemic cardiomyopathy, congestive HF s/p biventricular ICD implantation (2008) and other problems listed below who presented to the ED for evaluation of left hip pain s/p fall. History obtained from patient, and associated ED/PCP/specialist records. Patient reports that she was walking to her garage earlier this morning to go smoke a cigarette when she suddenly stumbled and fell down on her left hip. Patient denies hitting her head or losing consciousness. She could not get herself up herself off of the ground d/t immobilizing severe pain in her left hip. Patient did have her cell phone on hand and was able to call 911 herself. Patient currently endorses 6/10 pain in her left hip, she did receive 8 mg IV morphine in the ED w/ some relief. She states that she still cannot move her left leg at this time d/t pain. She currently denies any neck pain, dizziness, headache, SOB or chest pain. Patient is currently on 2L of oxygen via nasal cannula and sating at 92%. She does not use any supplemental oxygen at home, and denies any recent illnesses. Patient further denies any current nausea, but did receive 4mg of IV Zofran in the ED for prevention of nausea given the severity of her pain. Patient is currently anticoagulated on Eliquis s/p diagnosis of DVT in her RLE last year, as per above. Patient states she last took her Eliquis around 7PM yesterday. Patient reports that she has not eaten since last night around dinnertime. She reports no current issues with her urinary or bowel habits. She denies any abdominal pain. Patient reports smoking approximately 7-8 cigarettes/day. She has been smoking since the age of 23. She currently lives at home by herself. Patient states that she has a cane and walker available at home, but has not required either assistive walking device recently. She has been ambulating appropriately. Patient does have peripheral neuropathy in her left foot, which is unchanged. She denies any new numbness or tingling in her extremities. Patient follows with [facility]. She is currently scheduled to undergo left leg revascularization for the treatment of PVD with claudication in that extremity on October 24 w/ Dr. Marr @ [facility]. Patient is currently on chronic oral opioid therapy [oxycodone 5mg] for lumbar DDD w/ associated back pain, which is managed by her PCP. PDMP reviewed, prescription last filled 10/12. Patient reports regular use of this medication every 6hrs at home w/ good control of her chronic back pain. Chest x-ray displayed no acute cardiopulmonary findings. Left hip/pelvis x-ray showed some degenerative changes w/o evidence of an acute abnormality. Left hip CT revealed an acute nondisplaced fracture w/in the greater trochanter of the left femur. Admission Exam Per Admitting Provider General Appearance: WD/WN, vitals as above, NAD, laying down in bed, pleasant, conversing w/ no difficulties. Head: Normocephalic, atraumatic. Eyes: Normal inspection, PERRL, conjunctivae normal, anicteric sclerae. ENT: External ear and nose normal, oropharynx normal. Neck: Normal visual inspection, trachea midline, no thyromegaly. Respiratory: Normal respiratory effort, lungs clear to auscultation, decreased air movement bilaterally. No accessory muscle use. Cardiovascular: Regular rate, rhythm, no murmur, difficulty feeling b/l dorsalis pedis pulses, no BLE edema. Vessels: No JVD. Chest: Normal inspection of chest. Abdomen/GI: Normal bowel sounds, soft, nontender, no hepatosplenomegaly. Extremities/Musculoskeletal: No cyanosis or clubbing, tender to palpation of L hip. Patient is unable to properly move her LLE d/t pain. Neurologic: PERRL, EOMI, accommodation nl, no face palsy, no dysarthria and CN's II-XI grossly intact bilaterally. Psychiatric: A+Ox3, euthymic affect. Skin: No rashes, normal color, warm/dry. Principal Diagnosis Acute nondisplaced fracture of left great trochanter Fall Discharge Data Allergies Allergy/AdvReac Type Severity Reaction Status Date / Time NSAIDS (Non-Steroidal AdvReac Severe GI ISSUES Verified 10/18/23 09:56 Anti-Inflamma Hibfjmd-KFQ-EzF Reductase AdvReac Severe LIVER Verified 10/18/23 09:56 Inhibitor FUNCTION [Bstczlu-Vdc-Nol Reductase ELEVATES Inhibitor] isosorbide AdvReac Intermediate VOMIT/HEADA Verified 10/18/23 09:56 CARLOS tramadol AdvReac Intermediate VOMITING Verified 10/18/23 09:56 Consultations 10/18/23 08:04 ED Decision to Admit Stat 10/18/23 08:17 Consult Orthopedic Surgery Routine Procedures Performed Laboratory Results WBC 4.93 K/ul (4.8-10.8) 10/21/23 06:00 RBC 3.97 M/uL (4.20-5.40) L 10/21/23 06:00 Hgb 13.0 g/dl (12.0-16.0) 10/21/23 06:00 Hct 38.6 % (37.0-47.0) 10/21/23 06:00 MCV 97.2 fL (80.0-100.0) 10/21/23 06:00 MCH 32.7 pg (25.0-34.0) 10/21/23 06:00 MCHC 33.7 g/dL (32.0-36.0) 10/21/23 06:00 RDW Std Deviation 47.0 fL (36.4-46.3) H 10/21/23 06:00 RDW Coeff of Julia 13.7 % (11.5-14.5) 10/21/23 06:00 Plt Count 128 K/uL (130-400) L 10/21/23 06:00 MPV 10.5 fL (9.4-12.4) 10/21/23 06:00 Immature Gran % (Auto) 0.4 % 10/18/23 04:12 Neut % (Auto) 70.3 % 10/18/23 04:12 Lymph % (Auto) 19.1 % 10/18/23 04:12 Sutter % (Auto) 8.5 % 10/18/23 04:12 Eos % (Auto) 1.3 % 10/18/23 04:12 Baso % (Auto) 0.4 % 10/18/23 04:12 Neut # (Auto) 3.87 K/uL (1.40-6.50) 10/18/23 04:12 Lymph # (Auto) 1.05 K/uL (1.20-3.40) L 10/18/23 04:12 Sutter # (Auto) 0.47 K/uL (0.11-0.59) 10/18/23 04:12 Eos # (Auto) 0.07 K/uL (0.00-0.50) 10/18/23 04:12 Baso # (Auto) 0.02 K/uL (0.00-0.20) 10/18/23 04:12 Immature Gran # (Auto) 0.02 K/uL (0.01-0.20) 10/18/23 04:12 PT 11.4 Seconds (9.0-12.0) 10/18/23 04:12 INR 1.1 (0.9-1.1) 10/18/23 04:12 APTT 28 Seconds (21-31) 10/18/23 04:12 PTT Ratio 1.0 10/18/23 04:12 Sodium 138 mmol/L (136-145) 10/21/23 06:00 Potassium 3.7 mmol/L (3.5-5.1) 10/21/23 06:00 Chloride 102 mmol/L (98-107) 10/21/23 06:00 Carbon Dioxide 31 mmol/L (21-32) 10/21/23 06:00 Anion Gap 5 (3-11) 10/21/23 06:00 BUN 24 mg/dl (6-23) H 10/21/23 06:00 Creatinine 0.84 mg/dl (0.6-1.2) 10/21/23 06:00 Est Cr Clr Drug Dosing 51.7 ml/min 10/21/23 06:00 Est GFR ( Amer) 78.2 ml/min 10/21/23 06:00 Est GFR (Non-Af Amer) 67.5 ml/min 10/21/23 06:00 BUN/Creatinine Ratio 28.6 (10-20) H 10/21/23 06:00 Glucose 91 mg/dl (70-99(Fasting)) 10/21/23 06:00 Estimat Average Glucose 120 mg/dl 10/19/23 06:05 Hemoglobin A1c 5.8 % (4.5-5.6) H 10/19/23 06:05 Calcium 8.3 mg/dl (8.6-10.3) L 10/21/23 06:00 Total Bilirubin 0.4 mg/dl (0.2-1.0) 10/18/23 04:12 AST 13 U/L (13-39) 10/18/23 04:12 ALT 9 U/L (7-52) 10/18/23 04:12 Alkaline Phosphatase 64 U/L (34-104) 10/18/23 04:12 Total Protein 6.7 gm/dl (6.0-8.3) 10/18/23 04:12 Albumin 4.1 gm/dl (3.4-5.0) 10/18/23 04:12 Globulin 2.6 gm/dl (2.5-4.0) 10/18/23 04:12 Albumin/Globulin Ratio 1.6 (0.9-2) 10/18/23 04:12 Triglycerides 113 mg/dl (0-150) 10/19/23 06:05 Cholesterol 124 mg/dl (0-200) 10/19/23 06:05 LDL Cholesterol, Calc 63 mg/dl 10/19/23 06:05 VLDL Cholesterol, Calc 23 mg/dl (0-30) 10/19/23 06:05 HDL Cholesterol 38 mg/dl 10/19/23 06:05 Cholesterol/HDL Ratio 3.3 (0-5) 10/19/23 06:05 Urine Color Yellow 10/18/23 07:22 Urine Appearance Clear (Clear) 10/18/23 07:22 Urine pH 6.0 (4.5-7.5) 10/18/23 07:22 Ur Specific [place] 1.015 (1.000-1.030) 10/18/23 07:22 Urine Protein Trace (Negative) H 10/18/23 07:22 Urine Glucose (UA) Negative (Negative) 10/18/23 07:22 Urine Ketones Negative (Negative) 10/18/23 07:22 Urine Blood Negative (Negative) 10/18/23 07:22 Urine Nitrite Negative (Negative) 10/18/23 07:22 Urine Bilirubin Negative (Negative) 10/18/23 07:22 Urine Urobilinogen Negative (Negative) 10/18/23 07:22 Ur Leukocyte Esterase Negative (Negative) 10/18/23 07:22 Urine WBC (Auto) 0-5 /hpf (0-5) 10/18/23 07:22 Urine RBC (Auto) 0-2 /hpf (0-2) 10/18/23 07:22 U Hyaline Cast (Auto) 0-2 /lpf (0-2) 10/18/23 07:22 U Epithel Cells (Auto) 0-2 /hpf (0-2) 10/18/23 07:22 Urine Bacteria (Auto) None Seen (None Seen) 10/18/23 07:22 Impressions Chest X-Ray 10/18/23 04:17 XR chest 1V portable CLINICAL HISTORY: fall, hip pain COMPARISON STUDY: Chest CT August 18, 2020. Chest radiograph June 28, 2023. FINDINGS: Left subclavian biventricular pacer/AICD is in place. Moderate cardiomegaly is unchanged. No evidence for pulmonary edema. No pneumothorax or pleural effusion. No consolidation is present. IMPRESSION: No acute cardiopulmonary findings. No change in appearance of the chest. ACT 112: Negative or not required by law. Electronically signed by: Korey Cobb M.D. 10/18/2023 7:[address] 10/18/23 05:16 CT hip LT wo con CLINICAL HISTORY: fall, pain, possible fx on X-ray COMPARISON STUDY: Pelvis and left hip radiographs performed earlier today. CT of the abdomen and pelvis June 28, 2023. TECHNIQUE: Axial images of the left hip were obtained without IV contrast. Sagittal and coronal reconstructions were viewed. Automated exposure control was utilized for the study. A dose lowering technique was utilized adhering to the principles of ALARA. FINDINGS: Sigmoid diverticulosis is noted. There is no acute fracture within visualized portions of the left hemipelvis. There is an acute nondisplaced fracture of the greater trochanter of the left femur. Fracture extends to the base of the greater trochanter. No intertrochanteric extension is identified by CT. No osseous lesions are identified. Mild joint space narrowing and modest. Osteophytosis of the left hip is present. IMPRESSION: Acute nondisplaced fracture within the greater trochanter of the left femur. No intertrochanteric extension by CT. MRI of the left hip could be obtained to assess for occult intertrochanteric extension. ACT 112: Negative or not required by law. Electronically signed by: Korey Cobb M.D. 10/18/2023 7:00 AM Ordered Studies 10/18/23 05:16 CT hip LT wo con Stat Hospital Course (1) Closed nondisplaced fracture of greater trochanter of left femur: (2) Fall: (3) Left hip pain: Radha Tong is a 78y/o F with PMHx of dyslipidemia, diet-controlled DM type II, CKD stage III, COPD, CAD, PVD w/ claudication, HTN, seizure disorder, DDD, anxiety, tobacco use disorder, viral hepatitis C, inferior-posterior FL s/p PCI of the RCA+repeat stenting (2006), CVA, paroxysmal atrial fibrillation [anticoagulated on Eliquis], DVT (09/2022), osteoarthritis, chronic back pain, chronic anemia, ischemic cardiomyopathy, congestive HF s/p biventricular ICD implantation (2008) and other problems listed below who presented to the ED for evaluation of left hip pain s/p fall and was found to have an acute nondisplaced fracture within the greater trochanter of the left femur. Acute closed nondisplaced fracture of greater trochanter of left femur Secondary to fall --Left Hip CT:Acute nondisplaced fracture within the greater trochanter of the left femur. No intertrochanteric extension by CT. MRI of the left hip could be obtained to assess for occult intertrochanteric extension. Fall precautions PT OT Appreciate orthopedics input: Conservative management Toe-touch weightbearing as tolerated on the leg with use of a walker Bowel regimen to prevent constipation Needs follow-up with orthopedics on discharge Pain is controlled Discussed with orthopedics today--okay to discharge to rehab Plan to discharge rehab facility today (4) DDD (degenerative disc disease), lumbar: (5) Chronically on opiate therapy: Hold narcotics for excess sedation (6) Chronic back pain: Chronic oral opioid therapy for lumbar DDD w/ associated back pain, which is managed by her PCP. (7) COPD (chronic obstructive pulmonary disease): No signs of acute exacerbation Continue Anoro Ellipta therapy. PRN DuoNebs (8) Tobacco use disorder: Patient reports smoking approximately 7-8 cigarettes/day. -Smoking cessation advised (9) Peripheral arterial disease: Continue Plavix Also on Eliquis (10) Peripheral neuropathy: Reports chronic peripheral neuropathy of left foot Scheduled to undergo left leg revascularization for the treatment of PVD with claudication in that extremity on October 24 w/ Dr. Marr @ [facility]. -Continue gabapentin (11) Hyperlipidemia: (12) History of hepatitis C: -Not currently on statin therapy, was on atorvastatin 20mg in the past. -According to record, she has elevation of liver enzymes when using statin therapy (13) GERD (gastroesophageal reflux disease): -Continue PPI (14) HTN (hypertension): Continue metoprolol BP variable Hold Lisinopril for now as BP relatively low adjust meds as needed (15) H/O cardiac pacemaker: (16) History of implantable cardioverter-defibrillator (ICD) placement: Continue home medications Follows with cardiology as outpatient (17) Chronic congestive heart failure: Last ECHO:06/29/2023 and revealed the following: EF=60-65%, hypokinetic base inferior wall, mild AV sclerosis w/o significant AV stenosis, mild AVR, trace MVR, mild TVR and grade II diastolic dysfunction. Continue home Lasix Monitor volume status (18) Diabetes mellitus, type II: Last HbA1c 5.8 Diet controlled Continue insulin while hospitalized if needed Monitor BGs Patient prefers to be on regular diet (19) CKD (chronic kidney disease), stage III: Baseline creatinine appears to be ~1.0 according to [facility] records. Monitor renal function Avoid nephrotoxic agents as able (20) Iron deficiency anemia: continue ferrous sulfate supplements (21) Seizure disorder: Follows w/ [facility] [Dr. Ashlie Swift] per [facility] records. -Continue levetiracetam therapy (22) Acute bacterial conjunctivitis of left eye: Continue Trimethoprim-polymyxin B drops (23) Paroxysmal atrial fibrillation: Continue metoprolol, Eliquis (24) History of DVT (deep vein thrombosis): Continue Eliquis DVT Px Eliquis Code Status: DNR/DNI Disposition Rehab Total Time Total Time Spent Total Time Spent (In Minutes): 51 minutes Discharge Plan Discharge Items Patient Disposition: Transfer [facility] Fac Reason For Visit: ACUTE NONDISPLACED FRACTURE L GREATER TROCHANTER Discharge Diagnosis: Acute nondisplaced fracture of left great trochanter Fall Condition on Discharge: Good Activity: Per Instructions section Weightbearing: Left toe touch Weightbearing Comment: or non weight bearing Non-emergency contact: Primary Care Provider and Surgeon Call non-emergency contact if: you have any medication questions, your pain is not controlled, your temperature is above 101, your wound has increased redness and your wound has increased drainage Follow-up/Referrals: Roman Ennis MD [Primary Care Provider] - Filiberto Lay MD [Surgeon] - 10/30/23 2:00 pm (10-14 days ) Diet: Heart Healthy Add Attending Provider Instructions: Follow-up with your primary care physician Dr. Ennis in 1 week upon discharge from rehab facility Follow-up with your orthopedic surgeon on 10/30/23 at 2:00PM as scheduled Seek immediate medical attention if your symptoms reoccur or worsen Please take all medications as instructed on discharge list below. Please call if you have any questions or problems. You can reach a [facility] hospitalist on duty at [facility] 24 hours a day by calling [phone] [facility] Provider Instructions: Orthopedic Instructions: - Toe touch weight bearing, non weight bearing left lower extremity - Use walker at all times - Ice and elevate left lower extremity/hip as needed - No hip precautions necessary. - Follow up with Dr. Lay in 10-14 days for repeat x-rays Pending Studies at Discharge: No Stand-Alone Forms: My [facility] Skilled Items Patient informed of condition?: Yes DNR: Yes Discharge Level of Care: Skilled Communicable Disease: No Discharge Prognosis: Stable Lines: None Urinary Catheter: No Medications and DC Order Prescriptions: Continued pantoprazole 40 mg Tablet,Delayed Release (Dr/Ec) 40 mg PO DAILYBB Qty: 30 nitroglycerin 0.4 mg Tablet, Sublingual 0.4 mg sublingual DIRECTED PRN (Reason: Chest Pain) Qty: 0 ondansetron HCl 4 mg Tablet 4 mg PO Q8H PRN (Reason: Nausea) Anoro Ellipta 62.5-25 mcg/actuation Blister With Device 1 inh INHALATION DAILY gabapentin 300 mg capsule See Rx Instructions .ROUTE .COMPLEX Rx Instructions: TAKES 300 MG QAM & NOON, THEN 600 MG QHS. clopidogrel 75 mg Tablet 75 mg PO QAM Qty: 30 0RF Eliquis 5 mg Tablet 5 mg PO BID Qty: 60 0RF levetiracetam 500 mg tablet 500 mg PO AMHS trazodone 50 mg tablet 25 mg PO HS cyanocobalamin (vitamin B-12) [Vitamin B-12] 1,000 mcg Tablet 1,000 mcg PO QAM furosemide 40 mg tablet See Rx Instructions .ROUTE .COMPLEX Rx Instructions: TAKES 40 MG QAM, THEN 20 MG EVERY DAY AT NOON. ferrous sulfate 325 mg (65 mg iron) Tablet,Delayed Release (Dr/Ec) 325 mg PO BIDM Qty: 60 1RF metoprolol succinate 50 mg Tablet Extended Release 24 Hr 50 mg PO BID Qty: 60 1RF lisinopril 10 mg Tablet 10 mg PO QAM Qty: 30 1RF oxycodone 5 mg tablet 5 mg PO Q6H PRN (Reason: Severe Pain (Scale Score 7-10)) Qty: 10 0RF Discharge Orders: Discharge Order (Routine); Ordered 10/24/23 Ordered By: Lam Freed Admission Data Admit Date/Time: 10/18/23 08:15 Attending Provider: Lam rFeed Admit Provider: Vidal Gonzales Primary Care Provider: Roman Ennis Other Providers: Filiberto Lay; Vidal Gonzales; [facility]
--- NOTE | 2023-10-24 13:29 | XRay Report ---
XR hip LT 2V w pelvis HISTORY: 78 years-old Female Left hip greater trochanter fx acute left hip pain COMPARISON: CT 10/18/2023 TECHNIQUE: AP view of the pelvis with 2 views of the left hip FINDINGS: Unchanged alignment of the acute nondisplaced greater trochanteric fracture of the left femur. Mild t o moderate osteoarthritis of the hips. Demineralized appearance of the bones. No acute fracture, disl ocation or avascular necrosis. Arterial calcifications. IMPRESSION: Unchanged alignment of the acute nondisplaced left greater trochanteric fracture. ACT 112: Negative or not required by law. The above report was generated using voice recognition software. It may contain grammatical, syntax o r spelling errors. Electronically signed by: Gurdeep Claros M.D. 10/24/2023 1:28 PM
--- NOTE | 2023-10-24 14:01 | Orthopedic Progress Note ---
Date of Service October 24, 2023 Assessment & Plan (1) Closed nondisplaced fracture of greater trochanter of left femur: Plan: 2 views of left hip with AP pelvis x-rays were performed this morning. The patient was educated regarding today's findings. Conservative care measures were discussed. Continue with physical therapy. Patient is being discharged to [facility] for rehab later today No surgical intervention is required. Toe-touch weightbearing as tolerated on the leg with use of a walker. Continue with ice and oral pain medication. Follow-up in the office for reassessment and new imaging in 10 to 14 days. Admission and Anticipated Discharge Date Admission Date: October 18, 2023 Subjective This 78-year-old female seen today for follow-up of a left nondisplaced greater trochanter fracture. Patient states she did very well with therapy today. She states she is scheduled to be discharged to [facility] for rehab later this afternoon. She states that she feels less pain today than she has previously. She currently denies chest pain, shortness of breath, fever, chills, sweats, numbness or tingling in her left lower extremity. She also denies nausea, vomiting, diarrhea or difficulty voiding. Review of Systems Review of Systems: All systems reviewed & are unremarkable except as noted in Subjective Physical Exam Physical Exam: Left hip: Patient experiences moderate tenderness to palpation over the left greater trochanter with slight edema. Patient also has some mild tenderness to palpation in the groin. There is no erythema or ecchymosis. Patient is able to perform an active SLRT this AM. Patient still has pain in the groin with passive logroll testing. Patient tolerated passive hip flexion to 90 degrees and experiences some referred pain to her groin with light passive internal and external hip rotation. She is able to actively dorsi and plantarflex her foot without issue. She was able to flex her knee to 90 degrees during today's visit. She is able to detect light sensation to touch over the pads of all digits and over the dermatomes of her left lower extremity. Her peripheral pulses are easily palpable. She is neurovascularly intact. Results & Data Vital Signs (Past 12 Hours) Vital Signs Temp Pulse Pulse Resp BP BP Pulse Ox 10/24/23 13:44 37.0 C 71 18 116/76 114/76 92 10/24/23 11:34 37.0 C 71 18 116/76 92 10/24/23 08:30 10/24/23 07:45 37.3 C 65 18 137/80 90 10/24/23 07:00 61 10/24/23 03:51 55 L 18 127/75 92 O2 Del Method O2 Flow Rate 10/24/23 13:44 10/24/23 11:34 Nasal Cannula 10/24/23 08:30 Nasal Cannula 2 10/24/23 07:45 Room Air 10/24/23 07:00 10/24/23 03:51 Nasal Cannula 2 Diagnostic Findings Laboratory Results WBC 4.93 K/ul (4.8-10.8) 10/21/23 06:00 RBC 3.97 M/uL (4.20-5.40) L 10/21/23 06:00 Hgb 13.0 g/dl (12.0-16.0) 10/21/23 06:00 Hct 38.6 % (37.0-47.0) 10/21/23 06:00 MCV 97.2 fL (80.0-100.0) 10/21/23 06:00 MCH 32.7 pg (25.0-34.0) 10/21/23 06:00 MCHC 33.7 g/dL (32.0-36.0) 10/21/23 06:00 RDW Std Deviation 47.0 fL (36.4-46.3) H 10/21/23 06:00 RDW Coeff of Julia 13.7 % (11.5-14.5) 10/21/23 06:00 Plt Count 128 K/uL (130-400) L 10/21/23 06:00 MPV 10.5 fL (9.4-12.4) 10/21/23 06:00 Immature Gran % (Auto) 0.4 % 10/18/23 04:12 Neut % (Auto) 70.3 % 10/18/23 04:12 Lymph % (Auto) 19.1 % 10/18/23 04:12 [place] % (Auto) 8.5 % 10/18/23 04:12 Eos % (Auto) 1.3 % 10/18/23 04:12 Baso % (Auto) 0.4 % 10/18/23 04:12 Neut # (Auto) 3.87 K/uL (1.40-6.50) 10/18/23 04:12 Lymph # (Auto) 1.05 K/uL (1.20-3.40) L 10/18/23 04:12 [place] # (Auto) 0.47 K/uL (0.11-0.59) 10/18/23 04:12 Eos # (Auto) 0.07 K/uL (0.00-0.50) 10/18/23 04:12 Baso # (Auto) 0.02 K/uL (0.00-0.20) 10/18/23 04:12 Immature Gran # (Auto) 0.02 K/uL (0.01-0.20) 10/18/23 04:12 PT 11.4 Seconds (9.0-12.0) 10/18/23 04:12 INR 1.1 (0.9-1.1) 10/18/23 04:12 APTT 28 Seconds (21-31) 10/18/23 04:12 PTT Ratio 1.0 10/18/23 04:12 Sodium 138 mmol/L (136-145) 10/21/23 06:00 Potassium 3.7 mmol/L (3.5-5.1) 10/21/23 06:00 Chloride 102 mmol/L (98-107) 10/21/23 06:00 Carbon Dioxide 31 mmol/L (21-32) 10/21/23 06:00 Anion Gap 5 (3-11) 10/21/23 06:00 BUN 24 mg/dl (6-23) H 10/21/23 06:00 Creatinine 0.84 mg/dl (0.6-1.2) 10/21/23 06:00 Est Cr Clr Drug Dosing 51.7 ml/min 10/21/23 06:00 Est GFR ( Amer) 78.2 ml/min 10/21/23 06:00 Est GFR (Non-Af Amer) 67.5 ml/min 10/21/23 06:00 BUN/Creatinine Ratio 28.6 (10-20) H 10/21/23 06:00 Glucose 91 mg/dl (70-99(Fasting)) 10/21/23 06:00 Estimat Average Glucose 120 mg/dl 10/19/23 06:05 Hemoglobin A1c 5.8 % (4.5-5.6) H 10/19/23 06:05 Calcium 8.3 mg/dl (8.6-10.3) L 10/21/23 06:00 Total Bilirubin 0.4 mg/dl (0.2-1.0) 10/18/23 04:12 AST 13 U/L (13-39) 10/18/23 04:12 ALT 9 U/L (7-52) 10/18/23 04:12 Alkaline Phosphatase 64 U/L (34-104) 10/18/23 04:12 Total Protein 6.7 gm/dl (6.0-8.3) 10/18/23 04:12 Albumin 4.1 gm/dl (3.4-5.0) 10/18/23 04:12 Globulin 2.6 gm/dl (2.5-4.0) 10/18/23 04:12 Albumin/Globulin Ratio 1.6 (0.9-2) 10/18/23 04:12 Triglycerides 113 mg/dl (0-150) 10/19/23 06:05 Cholesterol 124 mg/dl (0-200) 10/19/23 06:05 LDL Cholesterol, Calc 63 mg/dl 10/19/23 06:05 VLDL Cholesterol, Calc 23 mg/dl (0-30) 10/19/23 06:05 HDL Cholesterol 38 mg/dl 10/19/23 06:05 Cholesterol/HDL Ratio 3.3 (0-5) 10/19/23 06:05 Urine Color Yellow 10/18/23 07:22 Urine Appearance Clear (Clear) 10/18/23 07:22 Urine pH 6.0 (4.5-7.5) 10/18/23 07:22 Ur Specific [place] 1.015 (1.000-1.030) 10/18/23 07:22 Urine Protein Trace (Negative) H 10/18/23 07:22 Urine Glucose (UA) Negative (Negative) 10/18/23 07:22 Urine Ketones Negative (Negative) 10/18/23 07:22 Urine Blood Negative (Negative) 10/18/23 07:22 Urine Nitrite Negative (Negative) 10/18/23 07:22 Urine Bilirubin Negative (Negative) 10/18/23 07:22 Urine Urobilinogen Negative (Negative) 10/18/23 07:22 Ur Leukocyte Esterase Negative (Negative) 10/18/23 07:22 Urine WBC (Auto) 0-5 /hpf (0-5) 10/18/23 07:22 Urine RBC (Auto) 0-2 /hpf (0-2) 10/18/23 07:22 U Hyaline Cast (Auto) 0-2 /lpf (0-2) 10/18/23 07:22 U Epithel Cells (Auto) 0-2 /hpf (0-2) 10/18/23 07:22 Urine Bacteria (Auto) None Seen (None Seen) 10/18/23 07:22 Impressions Chest X-Ray 10/18/23 04:17 XR chest 1V portable CLINICAL HISTORY: fall, hip pain COMPARISON STUDY: Chest CT August 18, 2020. Chest radiograph June 28, 2023. FINDINGS: Left subclavian biventricular pacer/AICD is in place. Moderate cardiomegaly is unchanged. No evidence for pulmonary edema. No pneumothorax or p leural effusion. No consolidation is present. IMPRESSION: No acute cardiopulmonary findings. No change in appearance of the chest. ACT 112: Negative or not required by law. Electronically signed by: Korey Cobb M.D. 10/18/2023 7:[address] 10/18/23 05:16 CT hip LT wo con CLINICAL HISTORY: fall, pain, possible fx on X-ray COMPARISON STUDY: Pelvis and left hip radiographs performed earlier today. CT of the abdomen and pelvis June 28, 2023. TECHNIQUE: Axial images of the left hip were obtained without IV contrast. Sagittal and coronal reconstructions were viewed. Automated exposure control was utilized for the study. A dose lowering technique was utilized adhering to the principles of ALARA. FINDINGS: Sigmoid diverticulosis is noted. There is no acute fracture within visualized portions of the left hemipelvis. There is an acute nondisplaced fracture of the greater trochanter of the left femur. Fracture extends to the base of the greater trochanter. No intertrochanteric extension is identified by CT. No osseous lesions are identified. Mild joint space narrowing and modest. Osteophytosis of the left hip is present. IMPRESSION: Acute nondisplaced fracture within the greater trochanter of the left femur. No intertrochanteric extension by CT. MRI of the left hip could be obtained to assess for occult intertrochanteric extension. ACT 112: Negative or not required by law. Electronically signed by: Korey Cobb M.D. 10/18/2023 7:00 AM Hip/Pelvis X-Ray 10/24/23 10:08 XR hip LT 2V w pelvis HISTORY: 78 years-old Female Left hip greater trochanter fx acute left hip pain COMPARISON: CT 10/18/2023 TECHNIQUE: AP view of the pelvis with 2 views of the left hip FINDINGS: Unchanged alignment of the acute nondisplaced greater trochanteric fracture of the left femur. Mild to moderate osteoarthritis of the hips. Demineralized appearance of the bones. No acute fracture, dislocation or avascular necrosis. Arterial calcifications. IMPRESSION: Unchanged alignment of the acute nondisplaced left greater trochanteric fracture. ACT 112: Negative or not required by law. The above report was generated using voice recognition software. It may contain grammatical, syntax or spelling errors. Electronically signed by: Gurdeep Claros M.D. 10/24/2023 1:28 PM (1) Closed nondisplaced fracture of greater trochanter of left femur Encounter type: initial encounter Qualified Code(s): S72.115A - Nondisplaced fracture of greater trochanter of left femur, initial encounter for closed fracture
== END 2023-10-24 15:12 | DRG 536 ==
LOC: ED 04:04 → 2W 08:15 → SUATTDRO 08:15 → 2W 09:06

== ENCOUNTER 2024-04-26 20:55 | Inpatient (IN) ==
[2024-04-26 21:42] LABS: Basophils # (auto) 0.02 K/uL (0.00-0.20); Basophils % (auto) 0.3 %; Eosinophils # (auto) 0.01 K/uL (0.00-0.50); Eosinophils % (auto) 0.2 %; Hematocrit (blood only) 47.6 % (37.0-47.0); Hemoglobin 15.6 g/dl (12.0-16.0); Immature Granulocytes # (auto) 0.04 K/uL (0.01-0.20); Immature Granulocytes % (auto) 0.7 %; Lymphocytes # (auto) 0.69 K/uL (1.20-3.40); Mean Corpuscular Hemoglobin 33.3 pg (25.0-34.0); Mean Corpuscular Hgb Conc 32.8 g/dL (32.0-36.0); Mean Corpuscular Volume 101.5 fL (80.0-100.0); Mean Platelet Volume 12.1 fL (9.4-12.4); Monocytes # (auto) 0.23 K/uL (0.11-0.59); Neutrophils # (auto) 4.78 K/uL (1.40-6.50); Neutrophils % (auto) 82.8 %; Platelet Count 119 K/uL (130-400); RDW Coefficient of Variation 13.9 % (11.5-14.5); RDW Standard Deviation 51.3 fL (36.4-46.3); Red Blood Count 4.69 M/uL (4.20-5.40); White Blood Count 5.77 K/ul (4.8-10.8)
[2024-04-26 21:48] LABS: Albumin Globulin Ratio 1.6 (0.9-2); Albumin Level 4.3 gm/dl (3.4-5.0); BUN Creatinine Ratio 19.8 (10-20); Bilirubin,Total 0.6 mg/dl (0.2-1.0); Calcium 8.9 mg/dl (8.6-10.3); Creatinine Clr Calc Pharmacy 39.4 ml/min; Globulin 2.7 gm/dl (2.5-4.0); Potassium 3.3 mmol/L (3.5-5.1)
[2024-04-26] MEDS: ALBUT/IPRATROP 3MG/0.5MG NEB 3 ML VIAL NEB STA (21:50)
[2024-04-26 21:55] LABS: Troponin I High Sensitivity 43.3 pg/ml (0-14)
[2024-04-26 22:01] LABS: INR 1.1 (0.9-1.1); Partial Thromboplastin Time 28 Seconds (21-31); Prothrombin Time 12.2 Seconds (9.0-12.0)
[2024-04-26 22:07] LABS: HCO3 VBG 40 mmol/L; Oxygen Saturation VBG 68.2 %; PCO2 VBG 64 mmHg (38-50); PO2 VBG 37 mmHg
[2024-04-26 22:14] LABS: Adenovirus PCR Not Detected (NotDetected); Bordetella parapertussis PCR Not Detected (NotDetected); Bordetella pertussis PCR Not Detected (NotDetected); Chlamydia pneumoniae PCR Not Detected (NotDetected); Coronavirus 229E PCR Not Detected (NotDetected); Coronavirus CoV-2 (COVID19)PCR Not Detected (NotDetected); Coronavirus HKU1 PCR Not Detected (NotDetected); Coronavirus NL63 PCR Not Detected (NotDetected); Coronavirus OC43PCR Not Detected (NotDetected); Human Metapneumovirus PCR Not Detected (NotDetected); Influenza A PCR Not Detected (NotDetected); Influenza B PCR Not Detected (NotDetected); Mycoplasma pneumoniae PCR Not Detected (NotDetected); Parainfluenza Virus 1 PCR Not Detected (NotDetected); Parainfluenza Virus 2 PCR Not Detected (NotDetected); Parainfluenza Virus 3 PCR Not Detected (NotDetected); Parainfluenza Virus 4 PCR Not Detected (NotDetected); Respiratory Syncytial VirusPCR Not Detected (NotDetected); Rhinovirus/Enterovirus PCR Not Detected (NotDetected)
[2024-04-26] MEDS: FUROSEMIDE 40 MG/4 ML VIAL IV ONE (22:39)
--- NOTE | 2024-04-26 22:58 | CT Scan Report ---
Exam(s): CT HEAD Without Contrast EXAM: CT Head Without Intravenous Contrast CLINICAL HISTORY: Reason for exam: ams. TECHNIQUE: Axial computed tomography images of the head/brain without intravenous contrast. CTDI is 35.65 mGy and DLP is 624.41 mGy-cm. Automated exposure control was utilized for the study. A dose lowering technique was utilized adhering to the principles of ALARA. COMPARISON: June 28, 2023 FINDINGS: Artifacts: Images are degraded by motion artifact. Brain: No intracranial hemorrhage, mass-effect, or cerebral edema. Global parenchymal atrophy. Periventricular and subcortical low attenuation which is nonspecific but favored to represent chronic microvascular ischemic changes. Ventricles: Unremarkable. Bones/joints: Unremarkable. No fracture. Soft tissues: Unremarkable. Sinuses: No acute sinusitis. Mastoid air cells: Unremarkable as visualized. IMPRESSION: 1. No acute intracranial abnormality. Electronically signed by: Juan Avitia MD 04/26/24 22:57 PM
--- NOTE | 2024-04-26 23:05 | Emergency Department Note ---
History of Present Illness General Chief Complaint: Shortness of Breath/Dyspnea Stated Complaint: SHORTNESS OF BREATH Time Seen by Provider: 04/26/24 21:39 History of Present Illness Provider Complaint: shortness of breath Onset (ago): day(s) (1) Consistency/Duration: + progressively worsening Relieved By: + oxygen Exacerbated By: + exertion and + coughing Known history of: COPD and congestive heart failure Associated symptoms: + cough, + sputum production and + chest congestion; no fever or no hemoptysis Treatment prior to arrival: oxygen and bronchodilator Related Data Home oxygen amount: none Home Medications Medication Instructions Recorded Confirmed Type nitroglycerin 0.4 mg sublingual 0.4 mg sublingual DIRECTED PRN 03/30/17 04/26/24 History tablet Chest Pain #0 BTLS pantoprazole 40 mg tablet,delayed 40 mg PO DAILYBB #30 tabs 03/30/17 04/26/24 History release gabapentin 300 mg capsule See Rx Instructions .Route .COMPLEX 12/17/22 10/18/23 History ondansetron HCl 4 mg tablet 4 mg PO Q8H PRN Nausea 12/17/22 10/18/23 History umeclidinium 62.5 mcg-vilanterol 1 inh inhalation DAILY 12/17/22 10/18/23 History 25 mcg/actuation powdr for inhalation (Anoro Ellipta) apixaban 5 mg tablet (Eliquis) 5 mg PO BID #60 tabs 12/19/22 04/26/24 Rx clopidogrel 75 mg tablet 75 mg PO QAM #30 tabs 12/19/22 04/26/24 Rx levetiracetam 500 mg tablet 500 mg PO AMHS 01/11/23 04/26/24 History cyanocobalamin (vitamin B-12) 1,000 mcg PO QAM 06/28/23 04/26/24 History 1,000 mcg tablet (Vitamin B-12) furosemide 40 mg tablet See Rx Instructions .Route .COMPLEX 06/28/23 04/26/24 History trazodone 50 mg tablet 25 mg PO HS 06/28/23 04/26/24 History ferrous sulfate 325 mg (65 mg 325 mg PO BIDM #60 tabs 07/04/23 10/18/23 Rx iron) tablet,delayed release lisinopril 10 mg tablet 10 mg PO QAM #30 tabs 07/04/23 10/18/23 Rx metoprolol succinate 50 mg 50 mg PO BID #60 tabs 07/04/23 10/18/23 Rx tablet,extended release 24 hr oxycodone 5 mg tablet 5 mg PO Q6H PRN Severe Pain (Scale 10/24/23 04/26/24 Rx Score 7-10) #10 tabs Allergies Allergy/AdvReac Type Severity Reaction Status Date / Time NSAIDS (Non-Steroidal AdvReac Severe GI ISSUES Verified 10/18/23 09:56 Anti-Inflamma [id number]-[id number] Reductase AdvReac Severe LIVER Verified 10/18/23 09:56 Inhibitor FUNCTION [Vwsrenn-Srp-Dkf Reductase ELEVATES Inhibitor] isosorbide AdvReac Intermediate VOMIT/HEADA Verified 10/18/23 09:56 CARLOS tramadol AdvReac Intermediate VOMITING Verified 10/18/23 09:56 Past Med/Surg History Problem List (Updated 04/26/24 @ 23:05 by Ran Jorgensen MD) Hypoxia (Acute) CHF exacerbation (Acute) Chronic congestive heart failure H/O cardiac pacemaker History of implantable cardioverter-defibrillator (ICD) placement Chronically on opiate therapy History of hepatitis C Peripheral neuropathy Peripheral arterial disease COPD (chronic obstructive pulmonary disease) Left hip pain Fall DDD (degenerative disc disease), lumbar Chronic back pain Tobacco use disorder Closed nondisplaced fracture of greater trochanter of left femur Seizure disorder Paroxysmal atrial fibrillation Diabetes mellitus, type II Iron deficiency anemia Anxiety CKD (chronic kidney disease), stage III GERD (gastroesophageal reflux disease) (Chronic) Hyperlipidemia (Chronic) CAD (coronary artery disease) (Chronic) "NE 2006. S/P PCI/Stent RCA" HTN (hypertension) (Chronic) OA (osteoarthritis) (Chronic) Migraine (Chronic) Medical History COPD, group C, by GOLD 2017 classification Symptomatic anemia History of DVT (deep vein thrombosis) History of CVA (cerebrovascular accident) Symptomatic anemia Atrial fibrillation with RVR Breakthrough seizure Transaminitis Shock circulatory Metabolic encephalopathy ARF (acute renal failure) Colitis COPD exacerbation Acute ischemic right MCA stroke Arm paresthesia, left Idiopathic polyneuropathy Right leg DVT Myoclonic jerking Gait disturbance Chronic pain Rhabdomyolysis MARIELLA (acute kidney injury) Seizure Sinus tachycardia Non-ST elevation NE (NSTEMI) Chronic hepatitis C without hepatic coma Ischemic cardiomyopathy Acute anterior wall NE LBBB (left bundle branch block) Surgical History H/O release of tendon History of carpal tunnel surgery H/O: hysterectomy Hx of cataract surgery S/P cardiac cath S/P cholecystectomy Family History Father , age 81 of lung cancer Prostate cancer Heart disease Thyroid disorder Lung cancer Mother , age 80 with COPD Cancer Cervical Coronary heart disease s/p CABG Diabetes COPD (chronic obstructive pulmonary disease) Social History Smoking Status: Current every day smoker Tobacco Type: Cigarettes Age Started Using Tobacco: 23; packs per day: 0.5; Cigarettes Per Day: 7-8; Second Hand Exposure: Yes; Do You Dip or Chew Tobacco: No; Hx Alcohol Use: No Hx Substance Use: No Preferred Language: Macanese Communication Ability: Effective Form Setter Steel Forms Required: No Beliefs That Will Affect Care: None Current Living Situation: Alone current occupational status: retired 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 Feels Safe at Home: Yes Assistive Devices: Cane and Walker Physical Exam 2 Vital Signs: Vital Signs - 24 hr 04/26/24 20:58 04/26/24 20:58 04/26/24 20:58 Temperature 37.2 C Temperature Source Oral Pulse Rate 62 Pulse Rate from Sp O2 Sensor Respiratory Rate 20 Respiratory Effort / Characteristics Non-Labored Sponta neous Non-Labored Sponta neous Respiratory Depth Normal Normal Respiratory Patter n Regular Regular Blood Pressure 136/97 Blood Pressure Sidra n 110 Pulse Oximetry 93 86 L Oxygen Delivery Me thod Room Air Nasal Cannula Room Air Oxygen Flow Rate 4 0 Sepsis Recent Feve r Within 48 Hours No Sepsis New/Unexpla ined Change in Men anjum Status N/A Sepsis Action Take n by Nursing No Action Required Oxygen Flow Rate - Titration 4 Fraction of Inspir ed Oxygen - Titrat ion 94 04/26/24 21:03 04/26/24 21:20 04/26/24 21:30 Temperature Temperature Source Pulse Rate 66 62 Pulse Rate from Sp O2 Sensor Respiratory Rate 18 Respiratory Effort / Characteristics Respiratory Depth Respiratory Patter n Blood Pressure 149/77 H Blood Pressure Sidra n 110 Pulse Oximetry 95 94 Oxygen Delivery Me thod Nasal Cannula Nasal Cannula Oxygen Flow Rate 4 4 Sepsis Recent Feve r Within 48 Hours Sepsis New/Unexpla ined Change in Men anjum Status Sepsis Action Take n by Nursing Oxygen Flow Rate - Titration Fraction of Inspir ed Oxygen - Titrat ion 04/26/24 22:09 04/26/24 22:41 Temperature Temperature Source Pulse Rate 65 65 Pulse Rate from Sp O2 Sensor 64 Respiratory Rate 19 18 Respiratory Effort / Characteristics Respiratory Depth Respiratory Patter n Blood Pressure 141/77 H Blood Pressure Sidra n 107 Pulse Oximetry 96 96 Oxygen Delivery Me thod Nasal Cannula Oxygen Flow Rate 4 Sepsis Recent Feve r Within 48 Hours Sepsis New/Unexpla ined Change in Men anjum Status Sepsis Action Take n by Nursing Oxygen Flow Rate - Titration Fraction of Inspir ed Oxygen - Titrat ion Physical Exam: Physical Exam HENT: Exam performed. - Head: Normocephalic and atraumatic. EYES: Conjunctivae and EOM are normal. Right eye exhibits no discharge. Left eye exhibits no discharge. No scleral icterus. NECK: Normal range of motion. Neck supple. JVD present. CV: Normal rate, regular rhythm, normal heart sounds and intact distal pulses. Palpable radial pulses bue. PULM/CHEST: Diminished breath sounds bilaterally. ABD: The abdomen is soft. There is no tenderness. Course Course 2138: The patient was evaluated in room B12. A complete history and physical exam was performed Cardiac monitoring: An order was placed for continuous cardiac monitoring. The monitor shows a rate of 80 with paced rhythm interpreted by me Patient found to be hypoxic on room air. Supplemental oxygen was applied via nasal cannula to improve the patient's oxygen saturation. Patient be given DuoNeb. 2302: Vital signs stable on supplemental oxygen via nasal cannula. BNP and troponin are elevated. Chest x-ray shows mild cardiomegaly and mild cephalization. Patient will be given Lasix and admitted to the [facility] hospitalist team. Administered Medications Discontinued Medications Albuterol (Albut/Ipratrop 3mg/0.5mg Neb 3 Ml Vial) 3 ml NEB NOW STA; Protocol Stop: 04/26/24 21:45 Last Admin: 04/26/24 21:50 Dose: 3 ml Documented By: LIYA Furosemide (Furosemide 40 Mg/4 Ml Vial) 40 mg IV ONE ONE Stop: 04/26/24 22:18 Last Admin: 12/06/24 22:39 Dose: 40 mg Documented By: LIYA Medical Decision Making Laboratory Data Attestation: I reviewed the patient's lab results. 04/26/24 21:15 04/26/24 21:15 Lab Results 04/26/24 04/26/24 Range/Units 21:15 22:01 WBC 5.77 (4.8-10.8) K/ul RBC 4.69 (4.20-5.40) M/uL Hgb 15.6 (12.0-16.0) g/dl Hct 47.6 H (37.0-47.0) % MCV 101.5 H (80.0-100.0) fL MCH 33.3 (25.0-34.0) pg MCHC 32.8 (32.0-36.0) g/dL RDW Std Deviation 51.3 H (36.4-46.3) fL RDW Coeff of Julia 13.9 (11.5-14.5) % Plt Count 119 L (130-400) K/uL MPV 12.1 (9.4-12.4) fL Immature Gran % (Auto) 0.7 % Neut % (Auto) 82.8 % Lymph % (Auto) 12.0 % [place] % (Auto) 4.0 % Eos % (Auto) 0.2 % Baso % (Auto) 0.3 % Neut # (Auto) 4.78 (1.40-6.50) K/uL Lymph # (Auto) 0.69 L (1.20-3.40) K/uL [place] # (Auto) 0.23 (0.11-0.59) K/uL Eos # (Auto) 0.01 (0.00-0.50) K/uL Baso # (Auto) 0.02 (0.00-0.20) K/uL Immature Gran # (Auto) 0.04 (0.01-0.20) K/uL PT 12.2 H (9.0-12.0) Seconds INR 1.1 (0.9-1.1) APTT 28 (21-31) Seconds PTT Ratio 1.0 VBG pH 7.40 (7.36-7.41) VBG pCO2 64 H (38-50) mmHg VBG pO2 37 mmHg VBG HCO3 40 mmol/L VBG O2 Saturation 68.2 % VBG Base Excess 12.0 mEq/L Sodium 143 (136-145) mmol/L Potassium 3.3 L (3.5-5.1) mmol/L Chloride 100 (98-107) mmol/L Carbon Dioxide 35 H (21-32) mmol/L Anion Gap 8 (3-11) BUN 21 (6-23) mg/dl Creatinine 1.06 (0.6-1.2) mg/dl Est Cr Clr Drug Dosing 39.4 ml/min eGFR 54.11 BUN/Creatinine Ratio 19.8 (10-20) Glucose 139 H (70-99(Fasting)) mg/dl Calcium 8.9 (8.6-10.3) mg/dl Total Bilirubin 0.6 (0.2-1.0) mg/dl AST 15 (13-39) U/L ALT 6 L (7-52) U/L Alkaline Phosphatase 55 (34-104) U/L Troponin I High Sens 43.3 H (0-14) pg/ml B-Natriuretic Peptide 365 H (0-100) pg/ml Total Protein 7.0 (6.0-8.3) gm/dl Albumin 4.3 (3.4-5.0) gm/dl Globulin 2.7 (2.5-4.0) gm/dl Albumin/Globulin Ratio 1.6 (0.9-2) Adenovirus (PCR) Not Detected (NotDetected) B. pertussis DNA (PCR) Not Detected (NotDetected) B.parapertussis DNA PCR Not Detected (NotDetected) C. pneumoniae DNA (PCR) Not Detected (NotDetected) Coronavirus OC43 (PCR) Not Detected (NotDetected) Coronavirus HKU1 (PCR) Not Detected (NotDetected) Coronavirus 229E (PCR) Not Detected (NotDetected) SARS-CoV-2 (PCR) Not Detected (NotDetected) Coronavirus NL63 (PCR) Not Detected (NotDetected) Human Metapneumovir PCR Not Detected (NotDetected) Influenza Type A (PCR) Not Detected (NotDetected) Influenza Type B (PCR) Not Detected (NotDetected) M. pneumoniae (PCR) Not Detected (NotDetected) Parainfluenza 1 (PCR) Not Detected (NotDetected) Parainfluenza 2 (PCR) Not Detected (NotDetected) Parainfluenza 3 (PCR) Not Detected (NotDetected) Parainfluenza 4 (PCR) Not Detected (NotDetected) RSV (PCR) Not Detected (NotDetected) Entero/Rhino (PCR) Not Detected (NotDetected) Imaging Data Attestation: I personally reviewed and interpreted this imaging study as follows: My Impression: Chest x-ray: Cardiomegaly with mild cephalization. ECG Data Attestation: I personally reviewed and interpreted this ECG as follows: Interpretation: Paced rhythm with a rate of 71. NE 166 QRS 152. QTc 491. MDM Narrative 2138: The patient was evaluated in room B12. A complete history and physical exam was performed Cardiac monitoring: An order was placed for continuous cardiac monitoring. The monitor shows a rate of 80 with paced rhythm interpreted by me Patient found to be hypoxic on room air. Supplemental oxygen was applied via nasal cannula to improve the patient's oxygen saturation. Patient be given DuoNeb. 2302: Vital signs stable on supplemental oxygen via nasal cannula. BNP and troponin are elevated. Chest x-ray shows mild cardiomegaly and mild cephalization. [facility] Lasix [facility] Impression & Plan CHF exacerbation, Hypoxia Critical Care Time Critical Care Time: Yes Total Critical Care Time: 40 I have personally spent greater than 40 minutes of critical care time in the direct management of this patient. This includes bedside care, interpretation of diagnostic studies, and testing, discussion with consultants, patient, and family members, and other required patient management activities. This 40 minutes is in excess of all separately billable procedures. Discharge Plan Visit Data Chief Complaint: Shortness of Breath/Dyspnea Stated Complaint: SHORTNESS OF BREATH ED Provider: Ran Jorgensen Discharge Problem: CHF exacerbation, Hypoxia Patient Disposition: Admitted As Inpatient Forms Stand Alone Forms: My [facility] Prescriptions Prescriptions: No Action pantoprazole 40 mg Tablet,Delayed Release (Dr/Ec) 40 mg PO DAILYBB Qty: 30 nitroglycerin 0.4 mg Tablet, Sublingual 0.4 mg sublingual DIRECTED PRN (Reason: Chest Pain) Qty: 0 ondansetron HCl 4 mg Tablet 4 mg PO Q8H PRN (Reason: Nausea) Anoro Ellipta 62.5-25 mcg/actuation Blister With Device 1 inh INHALATION DAILY gabapentin 300 mg capsule See Rx Instructions .ROUTE .COMPLEX Rx Instructions: TAKES 300 MG QAM & NOON, THEN 600 MG QHS. clopidogrel 75 mg Tablet 75 mg PO QAM Qty: 30 0RF Eliquis 5 mg Tablet 5 mg PO BID Qty: 60 0RF levetiracetam 500 mg tablet 500 mg PO AMHS trazodone 50 mg tablet 25 mg PO HS cyanocobalamin (vitamin B-12) [Vitamin B-12] 1,000 mcg Tablet 1,000 mcg PO QAM furosemide 40 mg tablet See Rx Instructions .ROUTE .COMPLEX Rx Instructions: TAKES 40 MG QAM, THEN 20 MG EVERY DAY AT NOON. ferrous sulfate 325 mg (65 mg iron) Tablet,Delayed Release (Dr/Ec) 325 mg PO BIDM Qty: 60 1RF metoprolol succinate 50 mg Tablet Extended Release 24 Hr 50 mg PO BID Qty: 60 1RF lisinopril 10 mg Tablet 10 mg PO QAM Qty: 30 1RF oxycodone 5 mg tablet 5 mg PO Q6H PRN (Reason: Severe Pain (Scale Score 7-10)) Qty: 10 0RF Referrals Referrals: Roman Ennis MD [Primary Care Provider] -
--- NOTE | 2024-04-26 23:38 | XRay Report ---
Exam(s): XR CXR 1 VIEW EXAM: XR Chest, 1 View CLINICAL HISTORY: Reason for exam: Chest pain, nonspecific. TECHNIQUE: Frontal view of the chest. COMPARISON: Chest x-ray 10/18/2023 FINDINGS: Lungs: Pulmonary vascular congestion without overt edema. No consolidation. Pleural space: No pleural effusion. No pneumothorax. Heart: Unremarkable. No cardiomegaly. Tubes, lines and devices: Pacemaker leads within the heart. IMPRESSION: Pulmonary vascular congestion without overt edema. Electronically signed by: Juan Avitia MD 04/26/24 23:37 PM
--- NOTE | 2024-04-27 01:49 | History & Physical Report ---
Date of Service April 27, 2024 Assessment & Plan (1) CHF exacerbation: Plan: 79-year-old female with past medical history significant for type 2 diabetes, hyperlipidemia, COPD, CKD stage III, peripheral vascular disease, CAD status post stent, hypertension, abdominal aortic aneurysm, combined systolic and diastolic CHF, atrial fibrillation, viral hepatitis C, cystocele, history of CVA, degenerative disc disease, history of complex partial seizures, anxiety, presents with shortness of breath. Patient was hypoxic in the ER with 86% saturations on room air requiring oxygen. Currently patient is very sleepy and difficult to arouse. As per staff she was sleepy earlier but was alert and oriented. She speaks in single words or nods head and goes back to sleep. She denies any headache. Denies nausea. Denies cough. Currently denies any chest pain or shortness of breath. Denies nausea. Denies abdominal pain. Says she ambulates without support. Hemodynamics are okay currently. Acute on chronic diastolic CHF Hypoxia on presentation requiring oxygen Chest x-ray pulmonary congestion Echo in June 2023 showed EF of 60 to 65% and grade 2 diastolic dysfunction Received IV Lasix 40 mg in the ER We will hold home p.o. Lasix Continue with IV Lasix 40 mg daily Will follow echo Telemetry Daily weights and I's and O's Cardiology consult in a.m. for further recommendations Drowsiness CT head and VBG okay Respiratory bio fire negative We will monitor for now Mild elevation troponin Mostly demand ischemia Follow serial enzymes and echo History of CAD status post stents On statin, Plavix, Eliquis and metoprolol succinate Peripheral vascular disease On statin and Plavix COPD Continue home inhalers Nebs as needed Diabetes Hold home p.o. medications Sliding scale We will monitor History of viral hepatitis C Follow-up History of CVA On Plavix statin and Eliquis History of complex partial seizures On Keppra Abdominal aortic aneurysm Follow-up CKD stage III Presented with creatinine 1.06 We will follow labs Thrombocytopenia Platelets 119 Follow labs DVT prophylaxis On Eliquis Follow platelets Disposition Telemetry Full code History of Present Illness Chief Complaint: Shortness of breath Primary Care Provider: Roman Ennis MD 79-year-old female with past medical history significant for type 2 diabetes, hyperlipidemia, COPD, CKD stage III, peripheral vascular disease, CAD status post stent, hypertension, abdominal aortic aneurysm, combined systolic and diastolic CHF, atrial fibrillation, viral hepatitis C, cystocele, history of CVA, degenerative disc disease, history of complex partial seizures, anxiety, presents with shortness of breath. Patient was hypoxic in the ER with 86% saturations on room air requiring oxygen. Currently patient is very sleepy and difficult to arouse. As per staff she was sleepy earlier but was alert and oriented. She speaks in single words or nods head and goes back to sleep. She denies any headache. Denies nausea. Denies cough. Currently denies any chest pain or shortness of breath. Denies nausea. Denies abdominal pain. Says she ambulates without support. Hemodynamics are okay currently. Past medical history. As mentioned above Past surgical history. Cardiac cath in 3 bare-metal stents to right coronary artery. Bilateral carpal tunnel surgery. Colonoscopy. EGD. Iliac artery revascularization with stent placed angioplasty. Laparoscopy hysterectomy. Pacemaker/defibrillator. Right cataract surgery. Cholecystectomy. Social history. . Quit smoking 2023. Smoked 0.3 pack a day for 20 years. No alcohol use. No drug use. Family history. Brother had cancer. Father had prostate cancer. Heart disorder. Mother had cervical cancer. Diabetes. CABG. Allergies Allergy/AdvReac Type Severity Reaction Status Date / Time NSAIDS (Non-Steroidal AdvReac Severe GI ISSUES Verified 10/18/23 09:56 Anti-Inflamma Vpengwh-XOL-PwB Reductase AdvReac Severe LIVER Verified 10/18/23 09:56 Inhibitor FUNCTION [Lzqkoaa-Mba-Fcg Reductase ELEVATES Inhibitor] isosorbide AdvReac Intermediate VOMIT/HEADA Verified 10/18/23 09:56 CARLOS tramadol AdvReac Intermediate VOMITING Verified 10/18/23 09:56 Home Medications Medication Instructions Recorded Confirmed Type nitroglycerin 0.4 mg sublingual 0.4 mg sublingual DIRECTED PRN 03/30/17 04/26/24 History tablet Chest Pain #0 BTLS pantoprazole 40 mg tablet,delayed 40 mg PO DAILYBB #30 tabs 03/30/17 04/26/24 History release clopidogrel 75 mg tablet 75 mg PO QAM #30 tabs 12/19/22 04/26/24 Rx levetiracetam 500 mg tablet 500 mg PO AMHS 01/11/23 04/26/24 History cyanocobalamin (vitamin B-12) 1,000 mcg PO QAM 06/28/23 04/26/24 History 1,000 mcg tablet (Vitamin B-12) furosemide 40 mg tablet See Rx Instructions .Route .COMPLEX 06/28/23 04/26/24 History trazodone 50 mg tablet 25 mg PO HS 06/28/23 04/26/24 History metoprolol succinate 50 mg 50 mg PO BID #60 tabs 07/04/23 04/26/24 Rx tablet,extended release 24 hr oxycodone 5 mg tablet 5 mg PO Q6H PRN Severe Pain (Scale 10/24/23 04/26/24 Rx Score 7-10) #10 tabs apixaban 5 mg tablet (Eliquis) 5 mg PO AMHS 04/26/24 04/26/24 History atorvastatin 20 mg tablet 20 mg PO QAM 04/26/24 04/26/24 History ferrous sulfate 325 mg (65 mg 325 mg PO AMHS 04/26/24 04/26/24 History iron) tablet,delayed release pregabalin 75 mg capsule 75 mg PO AMHS 04/26/24 04/26/24 History umeclidinium 62.5 mcg-vilanterol 1 ea inhalation DAILY 04/26/24 04/26/24 History 25 mcg/actuation powdr for inhalation (Anoro Ellipta) Past Med/Surg History Problem List (Updated 04/27/24 @ 08:32 by Alberta Mills PA-C) Acute on chronic heart failure with preserved ejection fraction (HFpEF) Hypoxia (Acute) CHF exacerbation (Acute) Chronic congestive heart failure H/O cardiac pacemaker History of implantable cardioverter-defibrillator (ICD) placement Chronically on opiate therapy History of hepatitis C Peripheral neuropathy Peripheral arterial disease COPD (chronic obstructive pulmonary disease) Left hip pain Fall DDD (degenerative disc disease), lumbar Chronic back pain Tobacco use disorder Closed nondisplaced fracture of greater trochanter of left femur Seizure disorder Paroxysmal atrial fibrillation Diabetes mellitus, type II Iron deficiency anemia Anxiety CKD (chronic kidney disease), stage III GERD (gastroesophageal reflux disease) (Chronic) Hyperlipidemia (Chronic) CAD (coronary artery disease) (Chronic) "ND 2006. S/P PCI/Stent RCA" HTN (hypertension) (Chronic) OA (osteoarthritis) (Chronic) Migraine (Chronic) Medical History COPD, group C, by GOLD 2017 classification Symptomatic anemia History of DVT (deep vein thrombosis) History of CVA (cerebrovascular accident) Symptomatic anemia Atrial fibrillation with RVR Breakthrough seizure Transaminitis Shock circulatory Metabolic encephalopathy ARF (acute renal failure) Colitis COPD exacerbation Acute ischemic right MCA stroke Arm paresthesia, left Idiopathic polyneuropathy Right leg DVT Myoclonic jerking Gait disturbance Chronic pain Rhabdomyolysis MARIELLA (acute kidney injury) Seizure Sinus tachycardia Non-ST elevation ND (NSTEMI) Chronic hepatitis C without hepatic coma Ischemic cardiomyopathy Acute anterior wall ND LBBB (left bundle branch block) Surgical History H/O release of tendon History of carpal tunnel surgery H/O: hysterectomy Hx of cataract surgery S/P cardiac cath S/P cholecystectomy Family History Father , age 81 of lung cancer Prostate cancer Heart disease Thyroid disorder Lung cancer Mother , age 80 with COPD Cancer Cervical Coronary heart disease s/p CABG Diabetes COPD (chronic obstructive pulmonary disease) Social History Smoking Status: Current every day smoker Tobacco Type: Cigarettes Age Started Using Tobacco: 23; packs per day: 0.5; Cigarettes Per Day: 1; Second Hand Exposure: Yes; Do You Dip or Chew Tobacco: No; Tobacco Cessation Education Requested by Patient: No Hx Alcohol Use: No Hx Substance Use: No Preferred Language: [place] Communication Ability: Effective Student Support Advisor Required: No Beliefs That Will Affect Care: None Current Living Situation: Alone current occupational status: retired 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 Head- atraumatic ENT- oropharynx clear Neck- supple, no JVD. Lungs- clear to auscultation no wheezing or crackles Heart- regular rhythm; no murmur, no gallop. Abdomen- normal bowel sounds, soft, nontender, no distension. Extremities- trace pretibial edema, no erythema seen. Neuro- drowsy, PERRL, no facial palsy; no dysarthria; Skin- warm & dry Results & Data Results & Data Vital Signs (Past 12 Hours) Vital Signs Temp Pulse Resp BP Pulse Ox O2 Del Method O2 Flow Rate 04/27/24 00:39 68 20 141/68 H 94 04/26/24 22:41 65 18 141/77 H 96 Nasal Cannula 4 04/26/24 22:09 65 19 96 04/26/24 21:30 62 18 149/77 H 94 Nasal Cannula 4 04/26/24 21:20 95 Nasal Cannula 4 04/26/24 21:03 66 04/26/24 20:58 86 L Room Air 0 04/26/24 20:58 Nasal Cannula 4 04/26/24 20:58 37.2 C 62 20 136/97 93 Room Air Diagnostic Findings Laboratory Results WBC 5.77 K/ul (4.8-10.8) 04/26/24 21:15 RBC 4.69 M/uL (4.20-5.40) 04/26/24 21:15 Hgb 15.6 g/dl (12.0-16.0) 04/26/24 21:15 Hct 47.6 % (37.0-47.0) H 04/26/24 21:15 MCV 101.5 fL (80.0-100.0) H 04/26/24 21:15 MCH 33.3 pg (25.0-34.0) 04/26/24 21:15 MCHC 32.8 g/dL (32.0-36.0) 04/26/24 21:15 RDW Std Deviation 51.3 fL (36.4-46.3) H 04/26/24 21:15 RDW Coeff of Julia 13.9 % (11.5-14.5) 04/26/24 21:15 Plt Count 119 K/uL (130-400) L 04/26/24 21:15 MPV 12.1 fL (9.4-12.4) 04/26/24 21:15 Immature Gran % (Auto) 0.7 % 04/26/24 21:15 Neut % (Auto) 82.8 % 04/26/24 21:15 Lymph % (Auto) 12.0 % 04/26/24 21:15 [place] % (Auto) 4.0 % 04/26/24 21:15 Eos % (Auto) 0.2 % 04/26/24 21:15 Baso % (Auto) 0.3 % 04/26/24 21:15 Neut # (Auto) 4.78 K/uL (1.40-6.50) 04/26/24 21:15 Lymph # (Auto) 0.69 K/uL (1.20-3.40) L 04/26/24 21:15 [place] # (Auto) 0.23 K/uL (0.11-0.59) 04/26/24 21:15 Eos # (Auto) 0.01 K/uL (0.00-0.50) 04/26/24 21:15 Baso # (Auto) 0.02 K/uL (0.00-0.20) 04/26/24 21:15 Immature Gran # (Auto) 0.04 K/uL (0.01-0.20) 04/26/24 21:15 PT 12.2 Seconds (9.0-12.0) H 04/26/24 21:15 INR 1.1 (0.9-1.1) 04/26/24 21:15 APTT 28 Seconds (21-31) 04/26/24 21:15 PTT Ratio 1.0 04/26/24 21:15 VBG pH 7.40 (7.36-7.41) 04/26/24 22:01 VBG pCO2 64 mmHg (38-50) H 04/26/24 22:01 VBG pO2 37 mmHg 04/26/24 22:01 VBG HCO3 40 mmol/L 04/26/24 22:01 VBG O2 Saturation 68.2 % 04/26/24 22:01 VBG Base Excess 12.0 mEq/L 04/26/24 22:01 Sodium 143 mmol/L (136-145) 04/26/24 21:15 Potassium 3.3 mmol/L (3.5-5.1) L 04/26/24 21:15 Chloride 100 mmol/L (98-107) 04/26/24 21:15 Carbon Dioxide 35 mmol/L (21-32) H 04/26/24 21:15 Anion Gap 8 (3-11) 04/26/24 21:15 BUN 21 mg/dl (6-23) 04/26/24 21:15 Creatinine 1.06 mg/dl (0.6-1.2) 04/26/24 21:15 Est Cr Clr Drug Dosing 39.4 ml/min 04/26/24 21:15 eGFR 54.11 04/26/24 21:15 BUN/Creatinine Ratio 19.8 (10-20) 04/26/24 21:15 Glucose 139 mg/dl (70-99(Fasting)) H 04/26/24 21:15 Calcium 8.9 mg/dl (8.6-10.3) 04/26/24 21:15 Total Bilirubin 0.6 mg/dl (0.2-1.0) 04/26/24 21:15 AST 15 U/L (13-39) 04/26/24 21:15 ALT 6 U/L (7-52) L 04/26/24 21:15 Alkaline Phosphatase 55 U/L (34-104) 04/26/24 21:15 Troponin I High Sens 43.4 pg/ml (0-14) H 04/26/24 23:12 B-Natriuretic Peptide 365 pg/ml (0-100) H 04/26/24 21:15 Total Protein 7.0 gm/dl (6.0-8.3) 04/26/24 21:15 Albumin 4.3 gm/dl (3.4-5.0) 04/26/24 21:15 Globulin 2.7 gm/dl (2.5-4.0) 04/26/24 21:15 Albumin/Globulin Ratio 1.6 (0.9-2) 04/26/24 21:15 Adenovirus (PCR) Not Detected (NotDetected) 04/26/24 21:15 B. pertussis DNA (PCR) Not Detected (NotDetected) 04/26/24 21:15 B.parapertussis DNA PCR Not Detected (NotDetected) 04/26/24 21:15 C. pneumoniae DNA (PCR) Not Detected (NotDetected) 04/26/24 21:15 Coronavirus OC43 (PCR) Not Detected (NotDetected) 04/26/24 21:15 Coronavirus HKU1 (PCR) Not Detected (NotDetected) 04/26/24 21:15 Coronavirus 229E (PCR) Not Detected (NotDetected) 04/26/24 21:15 SARS-CoV-2 (PCR) Not Detected (NotDetected) 04/26/24 21:15 Coronavirus NL63 (PCR) Not Detected (NotDetected) 04/26/24 21:15 Human Metapneumovir PCR Not Detected (NotDetected) 04/26/24 21:15 Influenza Type A (PCR) Not Detected (NotDetected) 04/26/24 21:15 Influenza Type B (PCR) Not Detected (NotDetected) 04/26/24 21:15 M. pneumoniae (PCR) Not Detected (NotDetected) 04/26/24 21:15 Parainfluenza 1 (PCR) Not Detected (NotDetected) 04/26/24 21:15 Parainfluenza 2 (PCR) Not Detected (NotDetected) 04/26/24 21:15 Parainfluenza 3 (PCR) Not Detected (NotDetected) 04/26/24 21:15 Parainfluenza 4 (PCR) Not Detected (NotDetected) 04/26/24 21:15 RSV (PCR) Not Detected (NotDetected) 04/26/24 21:15 Entero/Rhino (PCR) Not Detected (NotDetected) 04/26/24 21:15 Impressions Chest X-Ray 04/26/24 21:20 Exam(s): XR CXR 1 VIEW EXAM: XR Chest, 1 View CLINICAL HISTORY: Reason for exam: Chest pain, nonspecific. TECHNIQUE: Frontal view of the chest. COMPARISON: Chest x-ray 10/18/2023 FINDINGS: Lungs: Pulmonary vascular congestion without overt edema. No consolidation. Pleural space: No pleural effusion. No pneumothorax. Heart: Unremarkable. No cardiomegaly. Tubes, lines and devices: Pacemaker leads within the heart. IMPRESSION: Pulmonary vascular congestion without overt edema. Electronically signed by: Juan Avitia MD 04/26/24 23:[address] 04/26/24 22:17 Exam(s): CT HEAD Without Contrast EXAM: CT Head Without Intravenous Contrast CLINICAL HISTORY: Reason for exam: ams. TECHNIQUE: Axial computed tomography images of the head/brain without intravenous contrast. CTDI is 35.65 mGy and DLP is 624.41 mGy-cm. Automated exposure control was utilized for the study. A dose lowering technique was utilized adhering to the principles of ALARA. COMPARISON: June 28, 2023 FINDINGS: Artifacts: Images are degraded by motion artifact. Brain: No intracranial hemorrhage, mass-effect, or cerebral edema. Global parenchymal atrophy. Periventricular and subcortical low attenuation which is nonspecific but favored to represent chronic microvascular ischemic changes. Ventricles: Unremarkable. Bones/joints: Unremarkable. No fracture. Soft tissues: Unremarkable. Sinuses: No acute sinusitis. Mastoid air cells: Unremarkable as visualized. IMPRESSION: 1. No acute intracranial abnormality. Electronically signed by: Juan Avitia MD 04/26/24 22:57 PM ECG Additional Comments: ECG atrial sensed ventricular paced rhythm with rate of 71 Code Status & VTE Plan VTE Prophylaxis Plan VTE Prophylaxis will be ordered: Yes
[2024-04-27] MEDS ORDERED: ACETAMINOPHEN 325 MG TAB PO PRN (03:32)
[2024-04-27] MEDS ORDERED: oxyCODONE HCL IR 5 MG TAB (IMMEDIATE RELEASE) PO PRN (03:32)
[2024-04-27] MEDS ORDERED: LEVALBUTEROL 1.25 MG/3 ML NEB NEB PRN (03:32)
[2024-04-27] MEDS ORDERED: NITROGLYCERIN SL 0.4 MG/TAB TAB SL PRN ×2 (03:32)
[2024-04-27] MEDS ORDERED: POLYETHYLENE (MIRALAX) 17 GM PACK PO PRN (03:32)
[2024-04-27] MEDS: PANTOprazole 40 MG TAB PO SCH (06:01)
[2024-04-27 07:41] LABS: Basophils # (auto) 0.01 K/uL (0.00-0.20); Basophils % (auto) 0.2 %; Eosinophils # (auto) 0.01 K/uL (0.00-0.50); Eosinophils % (auto) 0.2 %; Hematocrit (blood only) 43.9 % (37.0-47.0); Hemoglobin 14.6 g/dl (12.0-16.0); Immature Granulocytes # (auto) 0.02 K/uL (0.01-0.20); Immature Granulocytes % (auto) 0.4 %; Lymphocytes # (auto) 1.53 K/uL (1.20-3.40); Lymphocytes % (auto) 29.8 %; Mean Corpuscular Hemoglobin 34.1 pg (25.0-34.0); Mean Corpuscular Hgb Conc 33.3 g/dL (32.0-36.0); Mean Corpuscular Volume 102.6 fL (80.0-100.0); Monocytes % (auto) 9.7 %; Neutrophils # (auto) 3.06 K/uL (1.40-6.50); Neutrophils % (auto) 59.7 %; Platelet Count 122 K/uL (130-400); RDW Coefficient of Variation 14.1 % (11.5-14.5); RDW Standard Deviation 52.4 fL (36.4-46.3); Red Blood Count 4.28 M/uL (4.20-5.40); White Blood Count 5.13 K/ul (4.8-10.8)
[2024-04-27 07:52] LABS: BUN Creatinine Ratio 19.2 (10-20); Calcium 8.7 mg/dl (8.6-10.3); Creatinine Clr Calc Pharmacy 39.1 ml/min; Magnesium 1.8 mg/dl (1.7-2.4); Potassium 3.5 mmol/L (3.5-5.1)
[2024-04-27 07:58] LABS: Troponin I High Sensitivity 39.1 pg/ml (0-14)
--- NOTE | 2024-04-27 08:07 | Cardiology Consultation ---
Date of Consultation April 27, 2024 Assessment & Plan (1) Acute on chronic heart failure with preserved ejection fraction (HFpEF): (2) Hypoxia: (3) History of implantable cardioverter-defibrillator (ICD) placement: (4) CAD (coronary artery disease): Plan 79 year old who presents with shortness of breath and hypoxia. BNP mildly elevated. Chest x-ray shows vascular congestion. - mild hypervolemia on exam, requiring oxygen supplementation at 4L NC - possible acute on chronic HFpEF vs COPD exacerbation - continue furosemide IV 40mg daily - repeat echo pending - UA pending - labs with mild thrombocytopenia, respiratory panel negative - 2 gm sodium restriction and 2 L fluid restriction - daily weights on standing scale if able - strict I and Os - continue Eliquis, plavix, atorvastatin, metoprolol succinate - continue to monitor on telemetry - will need outpatient cardiology follow up after discharge Case discussed with supervising physician, further recommendations per Dr. Marks. I spent a total of 30 minutes on the date of service in preparation, delivery, and documentation of the care provided to this patient excluding any time spent in the performance of separately billed services. This visit was a split-shared visit with the substantial portion of the decision making performed by the supervising filter tip inspector/billing provider. Supervising Physician Co-Signing Physician Notes Patient was seen and personally examined full assessment and plan as outlined by advanced provider above. Care and management discussed in detail and personally endorsed 79-year-old female who presented with signs and symptoms of shortness of breath hypoxia lethargy and mild confusion. Current examination and review of studies consistent with likely COPD exacerbation and hypoxia. Would hold further IV diuretics. Echocardiogram not significantly changed from prior study of June 2023 Patient now more alert than on admission with oxygen supplementation Will continue to follow patient in hospital I spent a total of 30 minutes on the date of service in preparation, delivery, and documentation of the care provided to this patient excluding any time spent in the performance of separately billed services History of Present Illness Reason for Consultation: Acute CHF Requesting Physician: Hospitalist Attending Physician: Jessica Radford MD History of Present Illness Radha Tong is a 79 year old female with past medical history as below, who presents with shortness of breath. Hypoxic in ED with O2 in 80s on room air, was placed on oxygen supplementation. Chest x-ray shows vascular congestion. BNP 365. Was noted to be drowsy in ED. Head CT unremarkable. Given IV furosemide and cardiology consulted for acute CHF. On exam today, she is resting comfortably in bed. Notes she has "not felt well" since yesterday, unable to describe further. Denies shortness of breath, chest pain, palpitations. Lives alone. States compliance with all medications at home. Currently requiring oxygen supplementation, 4L nasal cannula, is not on oxygen at baseline. She is known to [facility]. Complex history includes: ICM S/P inferior posterior AR 08/2006, S/P PCI to RCA and 4 BMS 12/2006 Apical thrombus - resolved LBBB BIV ICD 11/24/2008 gent change 08/06/2013 after the gent change the RV coil impedance was elevated and found to have the high voltage plug not in the port entirely so had a revision the next day; Gen change in November 2020 HTN HLD Chronic tobacco abuse Paroxysmal atrial fib DVT AAA COPD Chronic anemia CVA in 2022 - eliquis and plavix Allergies Allergy/AdvReac Type Severity Reaction Status Date / Time NSAIDS (Non-Steroidal AdvReac Severe GI ISSUES Verified 10/18/23 09:56 Anti-Inflamma Dtlzzjj-TZP-RnP Reductase AdvReac Severe LIVER Verified 10/18/23 09:56 Inhibitor FUNCTION [Tfwqpkl-Hnw-Juh Reductase ELEVATES Inhibitor] isosorbide AdvReac Intermediate VOMIT/HEADA Verified 10/18/23 09:56 CARLOS tramadol AdvReac Intermediate VOMITING Verified 10/18/23 09:56 Home Medications Medication Instructions Recorded Confirmed Type nitroglycerin 0.4 mg sublingual 0.4 mg sublingual DIRECTED PRN 03/30/17 04/26/24 History tablet Chest Pain #0 BTLS pantoprazole 40 mg tablet,delayed 40 mg PO DAILYBB #30 tabs 03/30/17 04/26/24 History release clopidogrel 75 mg tablet 75 mg PO QAM #30 tabs 12/19/22 04/26/24 Rx levetiracetam 500 mg tablet 500 mg PO AMHS 01/11/23 04/26/24 History cyanocobalamin (vitamin B-12) 1,000 mcg PO QAM 06/28/23 04/26/24 History 1,000 mcg tablet (Vitamin B-12) furosemide 40 mg tablet See Rx Instructions .Route .COMPLEX 06/28/23 04/26/24 History trazodone 50 mg tablet 25 mg PO HS 06/28/23 04/26/24 History metoprolol succinate 50 mg 50 mg PO BID #60 tabs 07/04/23 04/26/24 Rx tablet,extended release 24 hr oxycodone 5 mg tablet 5 mg PO Q6H PRN Severe Pain (Scale 10/24/23 04/26/24 Rx Score 7-10) #10 tabs apixaban 5 mg tablet (Eliquis) 5 mg PO AMHS 04/26/24 04/26/24 History atorvastatin 20 mg tablet 20 mg PO QAM 04/26/24 04/26/24 History ferrous sulfate 325 mg (65 mg 325 mg PO AMHS 04/26/24 04/26/24 History iron) tablet,delayed release pregabalin 75 mg capsule 75 mg PO AMHS 04/26/24 04/26/24 History umeclidinium 62.5 mcg-vilanterol 1 ea inhalation DAILY 04/26/24 04/26/24 History 25 mcg/actuation powdr for inhalation (Anoro Ellipta) Patient History Medical History COPD, group C, by GOLD 2017 classification Symptomatic anemia History of DVT (deep vein thrombosis) History of CVA (cerebrovascular accident) Symptomatic anemia Atrial fibrillation with RVR Breakthrough seizure Transaminitis Shock circulatory Metabolic encephalopathy ARF (acute renal failure) Colitis COPD exacerbation Acute ischemic right MCA stroke Arm paresthesia, left Idiopathic polyneuropathy Right leg DVT Myoclonic jerking Gait disturbance Chronic pain Rhabdomyolysis MARIELLA (acute kidney injury) Seizure Sinus tachycardia Non-ST elevation AR (NSTEMI) Chronic hepatitis C without hepatic coma Ischemic cardiomyopathy Acute anterior wall AR LBBB (left bundle branch block) Surgical History H/O release of tendon History of carpal tunnel surgery H/O: hysterectomy Hx of cataract surgery S/P cardiac cath S/P cholecystectomy Family History Father , age 81 of lung cancer Prostate cancer Heart disease Thyroid disorder Lung cancer Mother , age 80 with COPD Cancer Cervical Coronary heart disease s/p CABG Diabetes COPD (chronic obstructive pulmonary disease) Social History Smoking Status: Current every day smoker Tobacco Type: Cigarettes Age Started Using Tobacco: 23; packs per day: 0.5; Cigarettes Per Day: 1; Second Hand Exposure: Yes; Do You Dip or Chew Tobacco: No; Tobacco Cessation Education Requested by Patient: No Hx Alcohol Use: No Hx Substance Use: No Preferred Language: Arabic Communication Ability: Effective Director Of Reimbursement Required: No Beliefs That Will Affect Care: None Current Living Situation: Alone current occupational status: retired 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 PULMONARY: No cough, sputum, or hemoptysis, No wheezing, No shortness of breath and No recent change in breathing. CARDIOVASCULAR: No chest pain, No dyspnea on exertion, No edema, No palpitations and No syncope. GASTROINTESTINAL: No abdominal pain, No change in bowel habits, No significant heartburn, No nausea, No vomiting, No diarrhea, No constipation, No blood in stools or black tarry stools. No dysphagia. HEMATOLOGIC: No abnormal bleeding and No bruising. NEUROLOGICAL: Normal balance, No headaches and No weakness. Physical Exam Physical Exam: General: No acute distress. A+Ox3. HEENT: Normocephalic. Atraumatic. PERRL. EOMI. Conjunctiva and sclera clear. NECK: No carotid bruits. No JVD. Carotid upstrokes are brisk. Heart: RRR. S1 and S2 noted. No murmur. No rubs or gallops. PMI non displaced. Lungs: Clear to auscultation, but diminished throughout. Rhonchorous sounds with cough No rales. Abdomen: Normal bowel sounds. Soft. Nontender. No masses or organomegaly. No abdominal bruits. Extremities: Trace bilateral LE edema. No clubbing or cyanosis. Pulses: radial=2/4, posterior tibial=2/4, dorsalis pedis = 2/4. NEURO: No focal deficits. PSYCH: Appropriate affect and insight. Results & Data Vital Signs (Past 12 Hours) Vital Signs Temp Pulse Resp BP BP Pulse Ox O2 Del Method 04/27/24 04:41 63 04/27/24 04:22 Nasal Cannula 04/27/24 03:32 36.7 C 20 131/77 94 Nasal Cannula 04/27/24 02:59 61 18 103/49 L 97 Nasal Cannula 04/27/24 01:31 62 20 118/78 96 04/27/24 01:16 60 04/27/24 00:39 68 20 141/68 H 94 04/26/24 22:41 65 18 141/77 H 96 Nasal Cannula 04/26/24 22:09 65 19 96 04/26/24 21:30 62 18 149/77 H 94 Nasal Cannula 04/26/24 21:20 95 Nasal Cannula 04/26/24 21:03 66 04/26/24 20:58 86 L Room Air 04/26/24 20:58 Nasal Cannula 04/26/24 20:58 37.2 C 62 20 136/97 93 Room Air O2 Flow Rate 04/27/24 04:41 04/27/24 04:22 4 04/27/24 03:32 4 04/27/24 02:59 4 04/27/24 01:31 04/27/24 01:16 04/27/24 00:39 04/26/24 22:41 4 04/26/24 22:09 04/26/24 21:30 4 04/26/24 21:20 4 04/26/24 21:03 04/26/24 20:58 0 04/26/24 20:58 4 04/26/24 20:58 Laboratory Results Cardiac Enzymes 04/26/24 04/26/24 04/27/24 Range/Units 21:15 23:12 07:10 AST 15 (13-39) U/L Troponin I High Sens 43.3 H 43.4 H 39.1 H (0-14) pg/ml B-Natriuretic Peptide 365 H (0-100) pg/ml Coagulation 04/26/24 Range/Units 21:15 PT 12.2 H (9.0-12.0) Seconds APTT 28 (21-31) Seconds B-Natriuretic Peptide 365 H (0-100) pg/ml CBC 04/26/24 04/27/24 Range/Units 21:15 07:10 WBC 5.77 5.13 (4.8-10.8) K/ul RBC 4.69 4.28 (4.20-5.40) M/uL Hgb 15.6 14.6 (12.0-16.0) g/dl Hct 47.6 H 43.9 (37.0-47.0) % Plt Count 119 L 122 L (130-400) K/uL Neut # (Auto) 4.78 3.06 (1.40-6.50) K/uL Lymph # (Auto) 0.69 L 1.53 (1.20-3.40) K/uL [place] # (Auto) 0.23 0.50 (0.11-0.59) K/uL Eos # (Auto) 0.01 0.01 (0.00-0.50) K/uL Baso # (Auto) 0.02 0.01 (0.00-0.20) K/uL Comprehensive Metabolic Panel 04/26/24 04/27/24 Range/Units 21:15 07:10 Sodium 143 146 H (136-145) mmol/L Potassium 3.3 L 3.5 (3.5-5.1) mmol/L Chloride 100 100 (98-107) mmol/L Carbon Dioxide 35 H 41 H* (21-32) mmol/L BUN 21 20 (6-23) mg/dl Creatinine 1.06 1.04 (0.6-1.2) mg/dl Glucose 139 H 99 (70-99(Fasting)) mg/dl Calcium 8.9 8.7 (8.6-10.3) mg/dl AST 15 (13-39) U/L ALT 6 L (7-52) U/L Alkaline Phosphatase 55 (34-104) U/L Total Protein 7.0 (6.0-8.3) gm/dl Albumin 4.3 (3.4-5.0) gm/dl Intake and Output 04/26/24 04/27/24 04/27/24 22:59 06:59 14:59 Other: Weight 68.8 kg 64.9 kg Weight Measurement Method Built in [facility] Built in [facility] Diagnostic Findings EKG 04/26/24- atrial sensed, ventricular paced rhythm, 71 bpm Telemetry reviewed, ventricular paced rhythm in 60s Echo 06/2023 with EF 60-65%, aortic sclerosis without stenosis, mild AR, mild MR, grade 2 diastolic dysfunction (4) CAD (coronary artery disease) Associated angina: without angina Coronary Disease-Associated Artery/Lesion type: [place] artery [place] vs. transplanted heart: [place] heart Qualified Code(s): I25.10 - Atherosclerotic heart disease of [place] coronary artery without angina pectoris
[2024-04-27] MEDS: CLOPIDOGREL BISULFATE 75 MG TAB PO SCH (08:54)
[2024-04-27] MEDS: METOPROLOL SUCC 50MG EXT REL TAB PO SCH (08:54)
[2024-04-27] MEDS: CYANOCOBALAMIN (B-12) 500 MCG TABLET PO SCH (08:54)
[2024-04-27] MEDS: levETIRAcetam 500 MG TAB PO SCH (08:54)
[2024-04-27] MEDS: ATORVASTATIN 20 MG TAB PO SCH (08:55)
[2024-04-27] MEDS: UMECLIDINIUM/VILANTEROL 62.5/25MCG 7 PUFFS/INHALER INH SCH (08:55)
[2024-04-27] MEDS: APIXABAN 5 MG TABLET PO SCH (08:55)
[2024-04-27] MEDS: FERROUS SULFATE 325 MG TAB PO SCH (08:55)
[2024-04-27] MEDS: PREGABALIN 75 MG CAP PO SCH (08:56)
--- NOTE | 2024-04-27 08:56 | Electrocardiogram Report ---
Test Reason : Blood Pressure : */* mmHG Vent. Rate : 71 BPM Atrial Rate : 71 BPM P-R Int : 166 ms QRS Dur : 152 ms QT Int : 452 ms P-R-T Axes : 58 -69 81 degrees QTcB Int : 491 ms Atrial-sensed ventricular-paced rhythm Abnormal ECG When compared with ECG of 18-Oct-2023 04:30, Vent. rate has decreased by 5 bpm Confirmed by Vineet Peoples ([id number]) on 04/27/2024 8:56:18 AM Referred By: REFERRED SELF Confirmed By: Vineet Peoples
[2024-04-27] MEDS ORDERED: FUROSEMIDE 40 MG/4 ML VIAL IV SCH (09:00)
[2024-04-27] MEDS: guaiFENesin 600 MG TABCR PO SCH (09:03)
[2024-04-27] MEDS: MECLIZINE 12.5 MG TAB PO STA (09:03)
--- NOTE | 2024-04-27 09:58 | Ultrasound Report ---
LEFT LOWER EXTREMITY VENOUS DOPPLER HISTORY: Acute pain and swelling of the left lower leg swelling COMPARISON STUDY: None. FINDINGS: There is normal compressibility, flow, and augmentation within the left lower extremity joby p venous system. IMPRESSION: No DVT within the left lower extremity. ACT 112: Negative or not required by law. Electronically signed by: Gurdeep Claros M.D. 04/27/2024 9:56 AM
--- NOTE | 2024-04-27 14:30 | Communication Note ---
Date of Service: April 27, 2024 Evaluated patient at bedside Reports feeling SOB yesterday, but seems to have resolved RRR, no murmur Wheezing bilaterally scattered 2L O2 #Acute hypoxic, hypercapnic resp failure #Acute COPD exacerbation less suspicious of HFpEF STOP IV lasix started pred x 5 days Azithromycin 500mg x 3 nocturnal oximetry recommended sleep study ECHO reviewed 55-60% stable from 06/2023 Wean O2 as able rest of plan per hp
[2024-04-27] MEDS: predniSONE 20 MG TAB PO STA (14:58)
[2024-04-27] MEDS: AZITHROMYCIN 250 MG TAB PO ONE (14:58)
[2024-04-27 17:48] LABS: Appearance Urine Cloudy (Clear); Bacteria Urine Automated 4+ (None Seen); Bilirubin Urine Negative (Negative); Blood Urine Negative (Negative); Color Urine Yellow; Glucose Urine UA Negative (Negative); Ketones Urine Negative (Negative); Leukocyte Esterase Urine Trace (Negative); Nitrite Urine Negative (Negative); Protein Urine Negative (Negative); RBC Urine Automated 0-2 /hpf (0-2); Specific Gravity Urine 1.018 (1.000-1.030); Urobilinogen Urine Negative (Negative); pH Urine 5.5 (4.5-7.5)
[2024-04-27] MEDS: traZODone HCL 50 MG TAB PO SCH (20:33)
[2024-04-28 07:49] LABS: BUN Creatinine Ratio 29.1 (10-20); Creatinine Clr Calc Pharmacy 41.3 ml/min; Potassium 3.6 mmol/L (3.5-5.1)
[2024-04-28] MEDS: predniSONE 20 MG TAB PO SCH (08:35)
[2024-04-28] MEDS: AZITHROMYCIN 250 MG TAB PO SCH (08:35)
--- NOTE | 2024-04-28 08:40 | Cardiology Progress Note ---
Date of Service April 28, 2024 Assessment & Plan (1) COPD exacerbation: (2) Hypoxia: (3) Chronic congestive heart failure: (4) History of implantable cardioverter-defibrillator (ICD) placement: (5) CAD (coronary artery disease): Plan 79 year old female who presented with signs and symptoms of shortness of breath, hypoxia, lethargy, and mild confusion. - euvolemic on exam - no signs of heart failure on exam, symptoms consistent with COPD exacerbation - hold diuretics - Echo with EF 55-60%, no significant change compared to previous - 2 gm sodium restriction and 2 L fluid restriction - continue Eliquis, plavix, atorvastatin, metoprolol succinate - continue to monitor on telemetry Case discussed with supervising physician, further recommendations per Dr. Marks. I spent a total of 30 minutes on the date of service in preparation, delivery, and documentation of the care provided to this patient excluding any time spent in the performance of separately billed services. This visit was a split-shared visit with the substantial portion of the decision making performed by the supervising guest services representative/billing provider. Admission and Anticipated Discharge Date Admission Date: April 27, 2024 Supervising Physician Co-Signing Physician Notes Full assessment and plan as outlined by advanced provider as above. Recommendations as noted. No further cardiac plans Reconsult with further concerns Subjective 79 year old who was evaluated today in follow up for shortness of breath. No acute events overnight. She states she feels well and is eager to go home. Denies chest pain, palpitations, shortness of breath, edema. Trial of room air, but SpO2 dropped in 80s and was placed back on oxygen supplementation. Review of Systems Review of Systems: CONSTITUTIONAL: No change in weight, No weakness, No fatigue and No fevers, No sweats or chills. PULMONARY: No cough, sputum, or hemoptysis, No wheezing, No shortness of breath and No recent change in breathing. CARDIOVASCULAR: No chest pain, No dyspnea on exertion, No edema, No palpitations and No syncope. GASTROINTESTINAL: No abdominal pain, No change in bowel habits, No significant heartburn, No nausea, No vomiting, No diarrhea, No constipation, No blood in stools or black tarry stools. No dysphagia. HEMATOLOGIC: No abnormal bleeding and No bruising. NEUROLOGICAL: Normal balance, No headaches and No weakness. Physical Exam Physical Exam: General: No acute distress. A+Ox3. HEENT: Normocephalic. Atraumatic. PERRL. EOMI. Conjunctiva and sclera clear. NECK: No carotid bruits. No JVD. Carotid upstrokes are brisk. Heart: RRR. S1 and S2 noted. No murmur. No rubs or gallops. PMI non displaced. Lungs: Diminished, but clear to auscultation. No wheezes. No rhonchi. No rales. Abdomen: Normal bowel sounds. Soft. Nontender. No masses or organomegaly. No abdominal bruits. Extremities: No edema. No clubbing or cyanosis. Pulses: radial=2/4, posterior tibial=2/4, dorsalis pedis = 2/4. NEURO: No focal deficits. PSYCH: Appropriate affect and insight. Results & Data Vital Signs (Past 12 Hours) Vital Signs Temp Pulse Pulse Pulse Resp BP Pulse Ox 04/28/24 05:00 60 04/28/24 04:03 54 L 04/28/24 03:21 56 L 04/28/24 02:21 36.6 C 51 L 18 112/70 94 04/28/24 02:12 52 L 04/27/24 23:05 36.9 C 54 L 18 99/63 L 93 04/27/24 22:59 60 04/27/24 22:47 04/27/24 22:40 56 L 04/27/24 22:34 58 L Pulse Ox O2 Del Method O2 Del Method O2 Flow Rate O2 Flow Rate 04/28/24 05:00 95 Nasal Cannula 2 04/28/24 04:03 95 Nasal Cannula 2 04/28/24 03:21 96 Nasal Cannula 2 04/28/24 02:21 Nasal Cannula 2 04/28/24 02:12 94 Nasal Cannula 2 04/27/24 23:05 Nasal Cannula 2 04/27/24 22:59 04/27/24 22:47 Nasal Cannula 3 04/27/24 22:40 81 L Room Air 04/27/24 22:34 85 L Room Air Laboratory Results Comprehensive Metabolic Panel 04/28/24 Range/Units 07:05 Sodium 141 (136-145) mmol/L Potassium 3.6 (3.5-5.1) mmol/L Chloride 99 (98-107) mmol/L Carbon Dioxide 38 H (21-32) mmol/L BUN 25 H (6-23) mg/dl Creatinine 0.86 (0.6-1.2) mg/dl Glucose 112 H (70-99(Fasting)) mg/dl Calcium 9.0 (8.6-10.3) mg/dl Intake and Output 04/27/24 04/28/24 04/28/24 22:59 06:59 14:59 Intake Total 240 / 240 Balance 240 / 240 Intake: Oral 240 / 240 Other: # Unmeasured Voids 1 1 Weight 56.1 kg Weight Measurement Method Built in [facility] Diagnostic Findings Echo 04/27/24: EF 55-60%, no change compared to echo from 06/2023 (3) Chronic congestive heart failure Heart failure type: unspecified Qualified Code(s): I50.9 - Heart failure, unspecified (5) CAD (coronary artery disease) Associated angina: without angina Coronary Disease-Associated Artery/Lesion type: [place] artery [place] vs. transplanted heart: [place] heart Qualified Code(s): I25.10 - Atherosclerotic heart disease of [place] coronary artery without angina pectoris
[2024-04-28] MEDS: cefTRIAXone SODIUM 2,000 MG/50 ML BAG IV SCH (08:52)
--- NOTE | 2024-04-28 10:20 | Discharge Summary ---
Discharge Summary Date of Service April 28, 2024 Principal Dx & Hospital Course #1 = Principal Diagnosis (1) CHF exacerbation: 79-year-old female with past medical history significant for type 2 diabetes, hyperlipidemia, COPD, CKD stage III, peripheral vascular disease, CAD status post stent, hypertension, abdominal aortic aneurysm, combined systolic and diastolic CHF, atrial fibrillation, viral hepatitis C, cystocele, history of CVA, degenerative disc disease, history of complex partial seizures, anxiety, presents with shortness of breath. Patient was hypoxic in the ER with 86% saturations on room air requiring oxygen. Currently patient is very sleepy and difficult to arouse. As per staff she was sleepy earlier but was alert and oriented. She speaks in single words or nods head and goes back to sleep. She denies any headache. Denies nausea. Denies cough. Currently denies any chest pain or shortness of breath. Denies nausea. Denies abdominal pain. Says she ambulates without support. Hemodynamics are okay currently. Acute on chronic diastolic CHF Hypoxia on presentation requiring oxygen Chest x-ray pulmonary congestion Echo in June 2023 showed EF of 60 to 65% and grade 2 diastolic dysfunction Received IV Lasix 40 mg in the ER We will hold home p.o. Lasix Continue with IV Lasix 40 mg daily Will follow echo Telemetry Daily weights and I's and O's Cardiology consult in a.m. for further recommendations Drowsiness CT head and VBG okay Respiratory bio fire negative We will monitor for now Mild elevation troponin Mostly demand ischemia Follow serial enzymes and echo History of CAD status post stents On statin, Plavix, Eliquis and metoprolol succinate Peripheral vascular disease On statin and Plavix COPD Continue home inhalers Nebs as needed Diabetes Hold home p.o. medications Sliding scale We will monitor History of viral hepatitis C Follow-up History of CVA On Plavix statin and Eliquis History of complex partial seizures On Keppra Abdominal aortic aneurysm Follow-up CKD stage III Presented with creatinine 1.06 We will follow labs Thrombocytopenia Platelets 119 Follow labs DVT prophylaxis On Eliquis Follow platelets Disposition Telemetry Full code Admission HPI Per Admitting Provider 79-year-old female with past medical history significant for type 2 diabetes, hyperlipidemia, COPD, CKD stage III, peripheral vascular disease, CAD status post stent, hypertension, abdominal aortic aneurysm, combined systolic and diastolic CHF, atrial fibrillation, viral hepatitis C, cystocele, history of CVA, degenerative disc disease, history of complex partial seizures, anxiety, presents with shortness of breath. Patient was hypoxic in the ER with 86% saturations on room air requiring oxygen. Currently patient is very sleepy and difficult to arouse. As per staff she was sleepy earlier but was alert and oriented. She speaks in single words or nods head and goes back to sleep. She denies any headache. Denies nausea. Denies cough. Currently denies any chest pain or shortness of breath. Denies nausea. Denies abdominal pain. Says she ambulates without support. Hemodynamics are okay currently. Past medical history. As mentioned above Past surgical history. Cardiac cath in 3 bare-metal stents to right coronary artery. Bilateral carpal tunnel surgery. Colonoscopy. EGD. Iliac artery revascularization with stent placed angioplasty. Laparoscopy hysterectomy. Pacemaker/defibrillator. Right cataract surgery. Cholecystectomy. Social history. . Quit smoking 2023. Smoked 0.3 pack a day for 20 years. No alcohol use. No drug use. Family history. Brother had cancer. Father had prostate cancer. Heart disorder. Mother had cervical cancer. Diabetes. CABG. Updated Medication List Medication Instructions Recorded Confirmed Type nitroglycerin 0.4 mg sublingual 0.4 mg sublingual DIRECTED PRN 03/30/17 04/26/24 History tablet Chest Pain #0 BTLS pantoprazole 40 mg tablet,delayed 40 mg PO DAILYBB #30 tabs 03/30/17 04/26/24 History release clopidogrel 75 mg tablet 75 mg PO QAM #30 tabs 12/19/22 04/26/24 Rx levetiracetam 500 mg tablet 500 mg PO AMHS 01/11/23 04/26/24 History cyanocobalamin (vitamin B-12) 1,000 mcg PO QAM 06/28/23 04/26/24 History 1,000 mcg tablet (Vitamin B-12) furosemide 40 mg tablet See Rx Instructions .Route .COMPLEX 06/28/23 04/26/24 History trazodone 50 mg tablet 25 mg PO HS 06/28/23 04/26/24 History metoprolol succinate 50 mg 50 mg PO BID #60 tabs 07/04/23 04/26/24 Rx tablet,extended release 24 hr oxycodone 5 mg tablet 5 mg PO Q6H PRN Severe Pain (Scale 10/24/23 04/26/24 Rx Score 7-10) #10 tabs apixaban 5 mg tablet (Eliquis) 5 mg PO AMHS 04/26/24 04/26/24 History atorvastatin 20 mg tablet 20 mg PO QAM 04/26/24 04/26/24 History ferrous sulfate 325 mg (65 mg 325 mg PO AMHS 04/26/24 04/26/24 History iron) tablet,delayed release pregabalin 75 mg capsule 75 mg PO AMHS 04/26/24 04/26/24 History umeclidinium 62.5 mcg-vilanterol 1 ea inhalation DAILY 04/26/24 04/26/24 History 25 mcg/actuation powdr for inhalation (Anoro Ellipta) azithromycin 250 mg tablet 500 mg (2 x 250 mg) PO QAM 1 day 04/28/24 Rx #2 tabs prednisone 20 mg tablet 40 mg (2 x 20 mg) PO DAILY 3 days 04/28/24 Rx #6 tabs Hospital Stay Data Consultations 04/26/24 22:17 ED Decision to Admit Stat 04/26/24 22:58 ED Decision to Admit Stat 04/27/24 08:00 Consult Cardiology Routine Diagnostic Imagining Performed 04/26/24 22:17 CT head/brain wo con Stat 04/27/24 08:44 US venous doppler LE LT Routine Pending Results Patient Have Any Pending Studies at Discharge: No Discharge Instructions Given to Patient (Per Discharging Provider) You were admitted for concern for heart failure, however your symptoms were consistent with a COPD exacerbation It is strongly recommended you reconsider Oxygen therapy. You are documented as requiring 2 liters continuous. You have oxygen supplies at home from prior prescriptions. Case Management has provided the contact information for the oxygen therapy. You will continue the following: -Azithromycin 500mg, one final dose tomorrow 04/29 -Prednisone 40mg (2 tablets) for three more days, starting tomorrow morning 04/29 Please continue your home inhalers. Your anoro ellipta is meant to be taken daily It is strongly recommended you follow up for a sleep study and pursue a CPAP. You are at high risk for readmission if you continue smoking and do not consider oxygen therapy
[2024-04-28] MEDS: ALBUT/IPRATROP 3MG/0.5MG NEB 3 ML VIAL NEB STA (11:47)
--- NOTE | 2024-04-28 12:02 | Hospitalist Progress Note ---
Date of Service April 28, 2024 Assessment & Plan (1) CHF exacerbation: Plan Ms. Tong is a 79-year-old female with past medical history significant for type 2 diabetes, hyperlipidemia, COPD, CKD stage III, peripheral vascular disease, CAD status post stent, hypertension, abdominal aortic aneurysm, combined systolic and diastolic CHF, atrial fibrillation, viral hepatitis C, cystocele, history of CVA, degenerative disc disease, history of complex partial seizures, anxiety, presents with shortness of breath. Patient was hypoxic in the ER with 86% saturations on room air requiring oxygen. she was admitted for concern of HFpEF exacberation, however, symptoms more consistent with COPD Adding ICS to LAMA/LABA Continuing steroid burst and azithromycin. Attempted dispo today, but 2 step with 2L at rest and 6L with ambulation Patient has been prescribed oxygen historically, however, does not have access to concentrator as its still at her "old house" This complicates acquiring sufficient supply for her. Case management is working to coordinate with family to get access to concentrator and supplies in order to set up oxygen at home. #Acute on chronic hypoxic, hypercapnic resp failure #Nocturnal hypoxia #Acute COPD exacerbation Chest x-ray pulmonary congestion Echo in June 2023 showed EF of 60 to 65% and grade 2 diastolic dysfunction Received IV Lasix 40 mg in the ER Held lasix for now ECHO stable Suspicious for COPD -Start prednisone burst -Start azithromycin -Add ICS to LAMA/LABA Nocturnal study: 2L at night 2 step: 2L at rest, 6 on exertion #Asymptomatic bacteruria no burning, frequency, irritation noted CTM #Mild elevation troponin Mostly demand ischemia iso hypoxia #CAD status post stents On statin, Plavix, Eliquis and metoprolol succinate #Peripheral vascular disease On statin and Plavix #Diabetes Hold home p.o. medications Sliding scale #History of viral hepatitis C Follow-up OP #History of CVA On Plavix statin and Eliquis #History of complex partial seizures On Keppra #Abdominal aortic aneurysm Follow-up op #CKD stage III Presented with creatinine 1.06 We will follow labs #Thrombocytopenia Platelets 119 Follow labs DVT prophylaxis On Eliquis Follow platelets Disposition Telemetry Admission and Anticipated Discharge Date Admission Date: April 27, 2024 Subjective NAEO Denies any chest pain or any other symptoms Reports feeling ready to go home, however, discussed need for oxygen and patient agreed to stay since it is not able to be coordinated safely at this time Physical Exam Constitutional: WD/WN, vitals as above Respiratory: scattered wheeze, much improved from day prior Cardiovascular: RRR, no murmur, no edema Results & Data Results & Data Vital Signs (Past 12 Hours) Vital Signs Temp Pulse Pulse Pulse Pulse Pulse Pulse 04/28/24 11:48 57 L 04/28/24 09:20 36.6 C 04/28/24 08:21 59 L 61 63 63 04/28/24 08:00 53 L 04/28/24 08:00 04/28/24 05:00 04/28/24 04:03 04/28/24 03:21 04/28/24 02:21 36.6 C 04/28/24 02:12 Pulse Pulse Pulse Resp Resp Resp Resp 04/28/24 11:48 17 04/28/24 09:20 62 18 04/28/24 08:21 56 L 57 L 19 19 20 04/28/24 08:00 04/28/24 08:00 04/28/24 05:00 60 04/28/24 04:03 54 L 04/28/24 03:21 56 L 04/28/24 02:21 51 L 18 04/28/24 02:12 52 L Resp Resp Resp BP Pulse Ox Pulse Ox Pulse Ox 04/28/24 11:48 89 L 04/28/24 09:20 108/71 91 04/28/24 08:21 19 16 17 85 L 86 L 04/28/24 08:00 04/28/24 08:00 04/28/24 05:00 04/28/24 04:03 04/28/24 03:21 04/28/24 02:21 112/70 94 04/28/24 02:12 Pulse Ox Pulse Ox Pulse Ox Pulse Ox O2 Del Method O2 Del Method O2 Flow Rate 04/28/24 11:48 Nasal Cannula 2 04/28/24 09:20 Nasal Cannula 2 04/28/24 08:21 86 L 89 L 90 94 04/28/24 08:00 04/28/24 08:00 Nasal Cannula 2 04/28/24 05:00 95 Nasal Cannula 04/28/24 04:03 95 Nasal Cannula 04/28/24 03:21 96 Nasal Cannula 04/28/24 02:21 Nasal Cannula 2 04/28/24 02:12 94 Nasal Cannula O2 Flow Rate O2 Flow Rate O2 Flow Rate O2 Flow Rate O2 Flow Rate O2 Flow Rate 04/28/24 11:48 04/28/24 09:20 04/28/24 08:21 2 3 4 6 2 04/28/24 08:00 04/28/24 08:00 04/28/24 05:00 2 04/28/24 04:03 2 04/28/24 03:21 2 04/28/24 02:21 04/28/24 02:12 2 Laboratory Results BMP 04/28/24 07:05 Sodium 141 Potassium 3.6 Chloride 99 Carbon Dioxide 38 H BUN 25 H Creatinine 0.86 Glucose 112 H Calcium 9.0 Urine 04/27/24 Range/Units Unknown Urine Color Yellow Urine Appearance Cloudy A (Clear) Urine pH 5.5 (4.5-7.5) Ur Specific [place] 1.018 (1.000-1.030) Urine Protein Negative (Negative) Urine Glucose (UA) Negative (Negative) Medications Administered Home Medications Medication Instructions Recorded Confirmed Last Taken nitroglycerin 0.4 mg sublingual 0.4 mg sublingual DIRECTED PRN 03/30/17 04/26/24 10/17/23 tablet Chest Pain #0 BTLS pantoprazole 40 mg tablet,delayed 40 mg PO DAILYBB #30 tabs 03/30/17 04/26/24 04/26/24 release clopidogrel 75 mg tablet 75 mg PO QAM #30 tabs 12/19/22 04/26/24 04/26/24 levetiracetam 500 mg tablet 500 mg PO AMHS 01/11/23 04/26/24 04/26/24 cyanocobalamin (vitamin B-12) 1,000 mcg PO QAM 06/28/23 04/26/24 04/26/24 1,000 mcg tablet (Vitamin B-12) furosemide 40 mg tablet See Rx Instructions .Route .COMPLEX 06/28/23 04/26/24 04/26/24 trazodone 50 mg tablet 25 mg PO HS 06/28/23 04/26/24 10/17/23 metoprolol succinate 50 mg 50 mg PO BID #60 tabs 07/04/23 04/26/24 04/26/24 tablet,extended release 24 hr oxycodone 5 mg tablet 5 mg PO Q6H PRN Severe Pain (Scale 10/24/23 04/26/24 Unknown Score 7-10) #10 tabs apixaban 5 mg tablet (Eliquis) 5 mg PO AMHS 04/26/24 04/26/24 04/26/24 atorvastatin 20 mg tablet 20 mg PO QAM 04/26/24 04/26/24 04/26/24 ferrous sulfate 325 mg (65 mg 325 mg PO AMHS 04/26/24 04/26/24 04/26/24 iron) tablet,delayed release pregabalin 75 mg capsule 75 mg PO AMHS 04/26/24 04/26/24 04/26/24 umeclidinium 62.5 mcg-vilanterol 1 ea inhalation DAILY 04/26/24 04/26/24 Unknown 25 mcg/actuation powdr for inhalation (Anoro Ellipta) azithromycin 250 mg tablet 500 mg (2 x 250 mg) PO QAM 1 day 04/28/24 Unknown #2 tabs prednisone 20 mg tablet 40 mg (2 x 20 mg) PO DAILY 3 days 04/28/24 Unknown #6 tabs Active Medications Generic Name Dose Route Start Last Admin Trade Name Freq PRN Reason Stop Dose Admin Apixaban 5 mg 04/27/24 09:00 04/28/24 08:34 Apixaban 5 Mg Tablet PO 05/27/24 08:59 5 mg BID LISHA Administration Atorvastatin Calcium 20 mg 04/27/24 09:00 04/28/24 08:34 Atorvastatin 20 Mg Tab PO 05/27/24 08:59 20 mg QAM LISHA Administration Azithromycin 500 mg 04/28/24 09:00 04/28/24 08:35 Azithromycin 250 Mg Tab PO 05/01/24 08:59 500 mg QAM LISHA Administration Clopidogrel Bisulfate 75 mg 04/27/24 09:00 04/28/24 08:34 Clopidogrel Bisulfate 75 Mg Tab PO 05/27/24 08:59 75 mg QAM LISHA Administration Cyanocobalamin 1,000 mcg 04/27/24 09:00 04/28/24 08:34 Cyanocobalamin (B-12) 500 Mcg Tablet PO 05/27/24 08:59 1,000 mcg QAM LISHA Administration Ferrous Sulfate 325 mg 04/27/24 09:00 04/28/24 08:34 Ferrous Sulfate 325 Mg Tab PO 05/27/24 08:59 325 mg BID LISHA Administration Guaifenesin 600 mg 04/27/24 09:00 04/28/24 08:34 Guaifenesin 600 Mg Tabcr PO 05/27/24 08:59 600 mg Q12 LISHA Administration Ceftriaxone Sodium 2,000 mg in 50 mls @ 100 mls/hr 04/28/24 08:00 04/28/24 08:52 Rocephin IV 05/03/24 07:59 100 mls/hr Q24H LISHA Administration Levetiracetam 500 mg 04/27/24 09:00 04/28/24 08:34 Levetiracetam 500 Mg Tab PO 05/27/24 08:59 500 mg BID LISHA Administration Metoprolol Succinate 50 mg 04/27/24 09:00 04/28/24 08:34 Metoprolol Succ 50mg Ext Rel Tab PO 05/27/24 08:59 50 mg BID LISHA Administration Pantoprazole Sodium 40 mg 04/27/24 06:30 04/28/24 06:23 Pantoprazole 40 Mg Tab PO 05/27/24 06:29 40 mg DAILYBB LISHA Administration Prednisone 40 mg 04/28/24 09:00 04/28/24 08:35 Prednisone 20 Mg Tab PO 05/28/24 08:59 40 mg DAILY LISHA Administration Pregabalin 75 mg 04/27/24 09:00 04/28/24 08:55 Pregabalin 75 Mg Cap PO 05/27/24 08:59 75 mg BID LISHA Administration Trazodone HCl 25 mg 04/27/24 21:00 04/27/24 20:33 Trazodone Hcl 50 Mg Tab PO 05/27/24 20:59 25 mg HS LISHA Administration Umeclidinium/Vilanterol 1 puffs 04/27/24 09:00 04/28/24 08:36 Umeclidinium/Vilanterol 62.5/25mcg 7 Puffs/Inhaler INH 05/27/24 08:59 1 puffs DAILY LISHA Administration
[2024-04-28 12:34] VITALS: BP 146/82; RESP 20; TEMP 97.7; O2SAT 90
[2024-04-28] MEDS: FLUTICASONE FUROATE 100MCG 14 PUFFS/INHALER INH SCH (13:19)
--- NOTE | 2024-04-28 13:52 | Discharge Summary ---
Discharge Summary Date of Service April 28, 2024 Principal Dx & Hospital Course #1 = Principal Diagnosis (1) CHF exacerbation: Plan Ms. Tong is a 79-year-old female with past medical history significant for type 2 diabetes, hyperlipidemia, COPD, CKD stage III, peripheral vascular disease, CAD status post stent, hypertension, abdominal aortic aneurysm, combined systolic and diastolic CHF, atrial fibrillation, viral hepatitis C, cystocele, history of CVA, degenerative disc disease, history of complex partial seizures, anxiety, presents with shortness of breath. Patient was hypoxic in the ER with 86% saturations on room air requiring oxygen. she was admitted for concern of HFpEF exacerbation, however, symptoms more consistent with COPD Adding ICS to LAMA/LABA--Trelegy to pharmacy Continuing steroid burst and azithromycin. Oxygen company able to coordinate getting concentrator to patient. Patient encouraged to follow up closely with PCP and complete course of steroids. #Acute on chronic hypoxic, hypercapnic resp failure #Nocturnal hypoxia #Acute COPD exacerbation Chest x-ray pulmonary congestion Echo in June 2023 showed EF of 60 to 65% and grade 2 diastolic dysfunction Received IV Lasix 40 mg in the ER Held lasix for now ECHO stable Suspicious for COPD -Start prednisone burst -Start azithromycin -Add ICS to LAMA/LABA--trelegy sent to [facility] Nocturnal study: 2L at night 2 step: 2L at rest, 6 on exertion #Asymptomatic bacteruria no burning, frequency, irritation noted CTM #Mild elevation troponin Mostly demand ischemia iso hypoxia #CAD status post stents On statin, Plavix, Eliquis and metoprolol succinate #Peripheral vascular disease On statin and Plavix #Diabetes Hold home p.o. medications Sliding scale #History of viral hepatitis C Follow-up OP #History of CVA On Plavix statin and Eliquis #History of complex partial seizures On Keppra #Abdominal aortic aneurysm Follow-up op #CKD stage III Presented with creatinine 1.06 We will follow labs #Thrombocytopenia Platelets 119 Follow labs Notes For Next Care Provider Medication Changes From Visit Trelegy inhaler 1 puff daily Prednisone x3 more days Azithromycin x 1 days Admission Exam Per Admitting Provider General- Sleepy. Head- atraumatic ENT- oropharynx clear Neck- supple, no JVD. Lungs- clear to auscultation no wheezing or crackles Heart- regular rhythm; no murmur, no gallop. Abdomen- normal bowel sounds, soft, nontender, no distension. Extremities- trace pretibial edema, no erythema seen. Neuro- drowsy, PERRL, no facial palsy; no dysarthria; Skin- warm & dry Discharge Exam Constitutional WD/WN, vitals as above Respiratory improved after neb, no wheezing Cardiovascular RRR, no murmur, no edema Updated Medication List Medication Instructions Recorded Confirmed Type nitroglycerin 0.4 mg sublingual 0.4 mg sublingual DIRECTED PRN 03/30/17 04/26/24 History tablet Chest Pain #0 BTLS pantoprazole 40 mg tablet,delayed 40 mg PO DAILYBB #30 tabs 03/30/17 04/26/24 History release clopidogrel 75 mg tablet 75 mg PO QAM #30 tabs 12/19/22 04/26/24 Rx levetiracetam 500 mg tablet 500 mg PO AMHS 01/11/23 04/26/24 History cyanocobalamin (vitamin B-12) 1,000 mcg PO QAM 06/28/23 04/26/24 History 1,000 mcg tablet (Vitamin B-12) furosemide 40 mg tablet See Rx Instructions .Route .COMPLEX 06/28/23 04/26/24 History trazodone 50 mg tablet 25 mg PO HS 06/28/23 04/26/24 History metoprolol succinate 50 mg 50 mg PO BID #60 tabs 07/04/23 04/26/24 Rx tablet,extended release 24 hr oxycodone 5 mg tablet 5 mg PO Q6H PRN Severe Pain (Scale 10/24/23 04/26/24 Rx Score 7-10) #10 tabs apixaban 5 mg tablet (Eliquis) 5 mg PO AMHS 04/26/24 04/26/24 History atorvastatin 20 mg tablet 20 mg PO QAM 04/26/24 04/26/24 History ferrous sulfate 325 mg (65 mg 325 mg PO AMHS 04/26/24 04/26/24 History iron) tablet,delayed release pregabalin 75 mg capsule 75 mg PO AMHS 04/26/24 04/26/24 History azithromycin 250 mg tablet 500 mg (2 x 250 mg) PO QAM 1 day 04/28/24 Rx #2 tabs fluticasone fur. 100 mcg-umeclid 1 inh inhalation DAILY #60 ea 04/28/24 Rx 62.5 mcg-vilant 25 mcg inhalat.powder (Trelegy Ellipta) prednisone 20 mg tablet 40 mg (2 x 20 mg) PO DAILY 3 days 04/28/24 Rx #6 tabs Hospital Stay Data Consultations 04/26/24 22:17 ED Decision to Admit Stat 04/26/24 22:58 ED Decision to Admit Stat 04/27/24 08:00 Consult Cardiology Routine Diagnostic Imagining Performed 04/26/24 22:17 CT head/brain wo con Stat 04/27/24 08:44 US venous doppler LE LT Routine Pending Results Patient Have Any Pending Studies at Discharge: No Discharge Instructions Given to Patient (Per Discharging Provider) You were admitted for concern for heart failure, however your symptoms were consistent with a COPD exacerbation It is strongly recommended continue Oxygen therapy. You are documented as requiring 2 liters continuous. You have oxygen supplies at home from prior prescriptions. Case Management has provided the contact information for the oxygen therapy. You will continue the following: -Azithromycin 500mg, one final dose tomorrow 04/29 -Prednisone 40mg (2 tablets) for three more days, starting tomorrow morning 04/29 -New inhaler was prescribed: Trelegy Inhaler 1puff daily in morning It is strongly recommended you follow up for a sleep study and pursue a CPAP. Total Time Total Time Spent Total Time Spent (In Minutes): 35
[2024-04-28 14:52] VITALS: PULSE 62
--- OUTSIDE RECORDS SUMMARY | 2024-04-28 22:56 | External Medical Summary | Summary of Care ---
Author Name Unknown Organization [facility] Address [address] [place] [address] Phone [phone] Care Team Providers Care Mental Health Program Manager Name Role Phone Loli NORWOOD MD, Marilyn Barraza Primary Care Provider [phone] Reason for Visit * Reason Onset Date Comments Medication Refill 04/16/2024 Encounter Details Date Type Department Care Team (Late st Contact Info) Description 04/16/2024 Refill Family Practice [facility] [place] [address] [facility] [place] [address] [place] [address] Marilyn Nogueira III, MD [address] [facility] [place] [address] Chronic pain syndrome Allergies Active Allergy Reactions Criticality Noted Date Comments Isosorbide Mononitrate 12/24/2007 Severe headaches Nsaids 05/29/2002 Tramadol Hcl Nausea/vomiting Low 01/09/2008 UGI distress documented as of this encounter (statuses as of 04/17/2024) Medications Nystatin 586946 UNIT/GM External Powder (Nystop) Apply topically to affected area 3 times a day. Apply to area under breasts 60 g 3 08/24/19 24 Active Anoro Ellipta 62.5-25 MCG/ACT Inhalation Aerosol Powder Breath Activated (umeclidinium-eusebia nterol) INHALE ONE PUFF EVERY DAY 180 Blister Dosing Unit 11/02/19 24 Active Clopidogrel Bisulfate 75 MG Oral Tablet (Plavix) Take 1 Tablet by mouth in the morning. 30 Tablet 11/02/19 24 Active Cyanocobalamin 1000 MCG Oral Tablet (Cyanocobalamin) Take 1 Tablet by mouth in the morning. 30 Tablet 11/02/19 24 Active Apixaban 5 MG Oral Tablet (Eliquis) Take 1 Tablet by mouth in the morning and 1 Tablet before bedtime. 60 Tablet 11/02/19 24 Active levETIRAcetam 500 MG Oral Tablet (Keppra) Take 1 Tablet by mouth in the morning and 1 Tablet before bedtime. 60 Tablet 11/02/19 24 Active Nitroglycerin 0.4 MG Sublingual Tablet Sublingual (Nitrostat)Indicat ions:ASCVD (arteriosclerotic cardiovascular disease),Chest pain, unspecified type DISSOLVE ONE TABLET UNDER THE TONGUE NEEDED FOR CHEST pain, maximum THREE doses 25 Tablet 11/02/19 24 Active Ondansetron HCl 4 MG Oral Tablet (Zofran)Indication s:Nausea Take 1 Tablet by mouth every 8 hours as needed for Nausea. 20 Tablet 11/02/19 24 Active Vitamin D3 250 MCG (51692 UT) Oral Tablet Take by mouth. Active Atorvastatin Calcium 20 MG Oral Tablet (Lipitor) TAKE ONE TABLET AT BEDTIME 30 Tablet 5 12/20/19 24 Active Metoprolol Succinate ER 50 MG Oral Tablet Extended Release 24 Hour (toPROL XL) TAKE ONE TABLET BY MOUTH TWICE DAILY 56 Tablet 5 03/13/20 24 Active Pregabalin 75 MG Oral Capsule (Lyrica) Take 1 Capsule by mouth in the morning and 1 Capsule before bedtime. 60 Capsule 5 03/27/20 24 Active Furosemide 40 MG Oral Tablet (Lasix) TAKE ONE TABLET EVERY DAY and TAKE 1/2 TABLET AT NOON 135 Tablet 3 04/10/20 24 Active Pantoprazole Sodium 40 MG Oral Tablet Delayed Release (Protonix)Indicati ons:Abdominal pain, epigastric TAKE ONE TABLET IN THE MORNING 30 Tablet 5 04/11/20 24 Active FeroSul 325 (65 Fe) MG Oral Tablet (Ferrous Sulfate) TAKE ONE TABLET TWICE DAILY 60 Tablet 5 04/11/20 24 Active traZODone HCl 50 MG Oral Tablet (Desyrel) TAKE 1/2 TABLET AT BEDTIME 15 Tablet 5 04/11/20 24 Active oxyCODONE HCl 5 MG Oral Tablet (Oxy IR)Indications:Chr onic pain syndrome Take 1 Tablet by mouth every 6 hours as needed for Pain, Severe. 100 Tablet 04/17/20 24 Active oxyCODONE HCl 5 MG Oral Tablet (Oxy IR)Indications:Chr onic pain syndrome Take 1 Tablet by mouth every 6 hours as needed for Pain, Severe. 100 Tablet 03/27/20 24 024 Discontin ued(Refil l) documented as of this encounter (statuses as of 04/17/2024) Active Problems Problem Noted Date Diagnosed Date Type 2 diabetes mellitus with peripheral vascula r disease 11/28/2023 Retention cyst of nasal cavity 10/24/2023 Left lower lobe pulmonary nodule 10/24/2023 Closed nondisplaced fracture of greater trochanter of left femur with routine healing 10/24/2023 DNR (do not resuscitate) 10/24/2023 PVD (peripheral vascular disease) with claudicat ion 09/20/2023 DDD (degenerative disc disease), lumbar 09/20/19 Seizure disorder, complex pa rtial, without intractable epilepsy 08/29/2023 Chronic kidney disease, stage 3b 07/31/2023 Overview: Per CKD protocol Hypertensive heart and kidne y disease with chronic combined systolic and diastolic congestive heart failure and stage 3b chronic kidney disease 07/31/2023 Overview: Per CKD protocol New onset seizure 07/28/2023 Viral hepatitis C 07/28/2023 Type 2 diabetes mellitus wit h stage 3b chronic kidney disease, without long-term current use of insulin 07/28/2023 Food insecurity 05/01/2023 Overview: Per [facility] Protocol Atrial fibrillation 02/27/2023 Assessment & Plan (05/03/2023 4:09 PM EST): Eliquis 5mg BID Other disorders of phosphorus metabolism 023 Breakthrough seizure 02/27/2023 Chronic combined systolic an d diastolic congestive heart failure 01/04/2023 Monoplegia, upper limb, nond ominant side S/P CVA (cerebrovascular acc) 01/04/2023 Infrarenal abdominal aortic aneurysm (AAA) witho ut rupture 10/14/2022 Cigarette smoker 08/03/2022 Type 2 diabetes [...] classification 06/03 Overview: Per COPD GOLD Classification Assessment & Plan (05/03/2023 4:16 PM EST): Current Status : "Stable" for patient / [...] cardiomyopathy 07/18/2018 Coronary artery disease invo lving [place] coronary artery of [place] heart without angina pectoris 05/08/2018 Anxiety state 05/08/2018 Incomplete uterovaginal prolapse 09/29/2017 Cystocele, lateral 09/29/2017 Vaginal atrophy 09/29/2017 Hepatitis C antibody test positive 05/09/2017 Overview (03/12/2018): HCV treated; SVR Confirmed 03/05/2018 Controlled substance agreement signed 02/23/2017 Biventricular implantable ca rdioverter-defibrillator in situ 08/07/2013 Assessment & Plan (05/03/2023 4:10 PM EST): [place] [facility] [place] History of colonic polyps 09/04/2012 Overview (02/20/2017): 09/01/2012: adenoma, repeat in 3 years ICD-10 update of inactive term Dyslipidemia, goal LDL below 70 05/07/2009 Overview (05/07/2009): Per Lipid Taxonomy. OLD MYOCARDIAL INFARCT 12/11/2008 Overview (12/11/2008): Modified by Acute [place] Protocol #5. [facility] [place] coronary bare metal stents S/P angioplasty with stent 09/07/2006 History of tobacco use documented as of this encounter (statuses as of 04/17/2024) Resolved Problems Problem Noted Date Diagnosed Date Resolved Date Benign hypertension with sta ge 3b chronic kidney disease 07/31/2023 11/28/2023 Overview: Per CKD protocol Chronic kidney disease, stage 3b 07/31/2023 08/31/2023 Overview: Per CKD protocol Hypertensive heart and chron ic kidney disease with heart failure and stage 1 through stage 4 chronic kidney disease, or chronic kidney disease 07/28/2023 11/28/2023 Chronic obstructive pulmonar y disease with (acute) exacerbation 07/28/2023 11/06/2023 Overview (11/06/2023): acute Acute deep vein thrombosis ( DVT) of proximal vein of right lower extremity 07/28/2023 11/06/2023 Overview (11/06/2023): History - September 2022 admission Stage 3 chronic kidney disease 07/28/2023 08/03/2023 Overview: Per CKD protocol Atherosclerosis of [place] co ronary artery without angina pectoris 07/28/2023 11/06/2023 Overview (11/06/2023): duplicate Hip pain, left 04/28/2023 11/28/2023 Atrial fibrillation 02/27/2023 03/16/20 23 Atrial fibrillation 02/27/2023 03/16/20 23 Hypertensive heart and kidne y disease with chronic combined systolic and diastolic congestive heart failure and stage 3 chronic kidney disease 02/20/2023 08/03/2023 Overview: Per CKD protocol Assessment & Plan (05/03/2023 4:12 PM EST): Current Status : "Stable" for patient / [...] IV Lasix dose: 80 mg BMP Pro-BNP Right leg DVT 01/04/2023 11/06/2023 Overview (11/06/2023): History - September 2022 admission Migraine 10/14/2022 10/14/2022 Type 2 diabetes mellitus wit h diabetic chronic kidney disease 10/14/2022 11/28/2023 Assessment & Plan (05/03/2023 4:17 PM EST): DM2 - diet controlled CKD - 3b, GFR 37 Benign hypertension with CKD (chronic kidney disease) stage III 06/02/2022 08/03/2023 Overview: Per CKD protocol Assessment & Plan (05/03/2023 4:10 PM EST): HTN - Prinivil 20mg daily, Metoprolol 25mg [...] disease with heart failure 04/02/20 18 07/18/2018 ADVANCE DIRECTIVE INFORMATION 03/23/2018 2024 Overview (03/29/2005): No, Advance Directive brochure offered , patient declined. Chronic hepatitis C without hepatic coma 08/02/2017 03/12/2018 Overview (03/12/2018): HCV treated; SVR Confirmed 03/05/2018 Abnormal blood chemistry 08/14/2014 HTN, goal below 130/80 10/24/201302/23 Ischemic cardiomyopathy 08/07/201206/23 Warfarin anticoagulation 03/28/201209/2016 Abdominal aortic aneurysm 11/04/2010 Overview (07/30/2012): tiny 2.50 cm infrarenal aneurysm seen on xray Repeat US 06/2011 Other nonspecific abnormal c ardiovascular system function study 11/07/2007 10/04/2017 EXAMINATION OF PARTICIPANT I N CLINICAL TRIAL - GENOMICS 01/15/2007 09/04/2009 Overview (09/04/2009): Renamed Per Clinical Trials Billing Project. Study Title: Genomic Markers for Patients with Cardiovascular Disease Project #: [id number] PI: Peyton Conn MD [phone] GENOMICS CARDIO RESEARCH OTHER*[id number] 01/15/2007 06/28/2016 Overview (09/04/2009): Renamed Per Clinical Trials Billing Project. Study Title: Genomic Markers for Patients with Cardiovascular Disease Project #: [id number] PI: Peyton Conn MD [phone] LV (left ventricular) mural thrombus 10/30/2006 12/28/2017 Tobacco use disorder 09/07/2006 010 Acute inferior myocardial infarction 08/19/2006 12/11/2008 Overview (12/11/2008): Modified by Acute [place] Protocol [place]5. [facility] [place] coronary bare metal stents EXAMINATION OF PARTICIPANT I N CLINICAL TRIAL - [facility] 08/19/2006 09/04/2009 Overview (09/04/2009): Renamed Per Clinical Trials Billing Project. [facility] [place] clinical trial 263 Single blind trial comparing heparin and IIB/IIIA with bivalirudin, and Taxus vs bare metal stent. Patient Follow-up for 5 years Black Pickler: Trent Verduzco [phone] [facility] Clinical Trial*[id number] 08/19/2006 09/08/2014 Overview (09/04/2009): Renamed Per Clinical Trials Billing Project. [facility] [place] clinical trial 263 Single blind trial comparing heparin and IIB/IIIA with bivalirudin, and Taxus vs bare metal stent. Patient Follow-up for 5 years Black Pickler: Trent Verduzco [phone] Menopause 08/29/2002 02/23/2017 LOC PRIM [id number] 05/29/200206/23 Dyslipidemia, goal to be determined 05/29/2002 05/07/2009 Overview (05/07/2009): Per Lipid Taxonomy. 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 02/23/2017 documented as of this encounter (statuses as of 04/17/2024) Immunizations Name Administration Dates Next Due COVID-19 mRNA, LNP-s, No Pre serve, 2-Dose Series (Moderna) 11/12/2020,10/01/2020 H1N1 2009 Influenza, IM 06/08/2009 HEP A - Hepatitis A (Adult > 18 yrs) 04/02/2018, 07/24/2017 01/24/2018 Hepatitis B, 20+ yrs 04/02/2018,09/29/2017,07/2408/24/2017 Influenza Vaccine, Live, Int ranasal, Trivalent (Flumist) 03/29/2013 Pneumococcal Conjugate Vacc, 13 Valent (Prevnar) 10/22/2014 Pneumococcal Polysaccharide PPV23 (Pneumovax) 02/23/2017,02/26/2007 Seasonal Influenza Vac., MDV , IM, 0.5 mL (Fluzone) 03/26/2014,04/20/2013,03/27/2012,01/21,02/17/2010,06/08/2009,02/27/20 07 Seasonal Influenza Virus Vac cine, Unspecified Formulation 02/27/2023 Seasonal Influenza, High Dos e, Trivalent, PF, IM (Fluzone HD) 03/27/2024 Seasonal Influenza, PF, 6 M & above, IM , (FluLaval or Fluzone) 04/02/2018 Seasonal Influenza, Quadriva lent Hd (Fluzone Hd) 02/27/2023 Seasonal Influenza, Quadriva lent, No Preserve, IM 02/23/2017 Seasonal Influenza, Trivalen t, (IIV3), PF, (Fluzone) 04/10/2006 Seasonal Influenza, Trivalen t, Adjuvanted, 65+ YRS, PF, (Fluad) 02/21/2022,02/03/2020,01/31/2019 TDAP (age 10 and older)(Boostrix) 06/02/2022 TDAP, Age 7 and older, IM (Adacel) 02/11/2011 Zoster Vaccine Recombinant (Shingrix) 01/20/2020 ,07/23/2019 documented as of this encounter Social History Tobacco Use Types Packs/Day Years Used Date Smoking Tobacco: Every Day Cigarettes 0.3 20 Last attempted to quit: 06/28/2023 Smokeless Tobacco: Never Comments:02/07/2024 6 cigaret david per day, decline pamphlet. Alcohol Use Standard Drinks/Week Comments No 0 (1 standard drink = 0.6 oz pur e alcohol) PHQ-2 Answer Date Recorded PHQ Adult Total Score 0 06/02/2022 Hunger Vital Sign Answer Date Recorded Within the past 12 months, y ou worried that your food would run out before you got the money to buy more. Never true 04/04/20 24 Within the past 12 months, t he food you bought just didn't last and you didn't have money to get more. Never true 04/04/2024 Childcare Answer Date Recorded Do you feel overwhelmed with taking care of a child, family member or friend? No 04/04/2024 Does your family need help f inding childcare? (Household - for ages 0-17 years) Not on file 04/04/2024 Clothing Answer Date Recorded Have you been unable to get clothing when it was really needed? No 04/04/2024 Is your family able to get c lothes or diapers when needed? (Household - for ages 0-17 years) Not on file 04/04/2024 Personal Safety Answer Date Recorded Do you feel unsafe or have concerns for your saf ety? No 04/04/2024 Do you have concerns for you r family's safety? (Household - for ages 0-17 years) Not on file 04/04/2024 Utilities Answer Date Recorded Do you have trouble paying y our heating, water, or electric bill? No 04/04/2024 Is your family able to pay t he heat, water, or electric bill? (Household - for ages 0-17 years) Not on file 04/04/2024 Does your family have access to good internet? (Household - for ages 0-17 years) Not on file 04/04/2024 Employment Status Answer Date Recorded Are you unemployed or without regular income? No 04/04/2024 Does the household have a re gular source of income? (Household - for ages 0-17 years) Not on file 04/04/2024 Social Connections Answer Date Recorded How often do you feel lonely or isolated from th ose around you? Never 04/04/2024 Financial Resource Strain Answer Date R ecorded Do you have any trouble payi ng for your medications, or do you think you might in the future? No 04/04/2024 Does your family have troubl e paying for medicine? (Household - for ages 0-17 years) Not on file 04/04/2024 Transportation Needs Answer Date Record ed Do you have trouble getting a ride to medical visits or work? (Adult - for ages 18 years and over) Not on file 04/04/2024 Does your family have a hard time getting a ride to doctors visits? (Household - for ages 0-17 years) Not on file 04/04/2024 Has lack of transportation k ept you from medical appointments, meetings, work, or from getting things needed for daily living? Check all that apply. No 04/04/2024 Do you (or your family) have trouble finding or paying for a ride (transportation)? (Household - for ages 0-17 years) Not on file 04/04/2024 Housing Stability Answer Date Recorded Do you currently live in a s helter or have no steady place to sleep at night? No 04/04/2024 Do you think you are at risk of becoming homeless? (Adult - for ages 18 years and over) Not on file 04/04/2024 Does your family worry about paying for your home or becoming homeless? (Household - for ages 0-17 years) Not on file 1 06/04/2023 Are you homeless or worried that you might be in the future? No 04/04/2024 Are you (or your family) obed eless or worried that you might be in the future? (Household - for ages 0-17 years) Not on file Food Insecurity Answer Date Recorded Do you need food for this week? No 04/04/2024 Are you able to get enough f ood for your family? (Household - for ages 0-17 years) Not on file 04/04/2024 Does your family need food t his week? (Household - for ages 0-17 years) Not on file 04/04/2024 Do you always have enough fo od for your family? (Household - for ages 0-17 years) Not on file 04/04/2024 Comments No Sex and Gender Information Value Date Recorded Sex Assigned at Female 11/28/2023 10:11 AM EDT Legal Sex Female 7:17 AM EST Gender Identity Female 11/28/2023 10:11 AM EDT Sexual Orientation Straight 11/28/2023 10 :11 AM EDT Occupation Industry Job Start Date Job End Date disabled since 08/18/06, SSI Not on file Not on file Not on file documented as of this encounter Miscellaneous Notes * Telephone Encounter - Marilyn Nogueira III, MD - 04/17/2024 12:48 PM ESTSigned Prescriptions: Disp Refills oxyCODONE HCl 5 MG Oral Tablet (Oxy IR) 100 Ta*0 Sig: Take 1 Tablet by mouth every 6 hours as needed for Pain, Severe.Authorizing Provider: MARILYN NOGUEIRA III-------- * Telephone Encounter - Stephani Becerril [facility] - 04/17/2024 11:06 AM ESTPending Prescriptions: Disp Refills oxyCODONE HCl 5 MG Oral Tablet (Oxy IR) 100 Ta*0 Sig: Take 1 Tablet by mouth every 6 hours as needed for Pain, Severe. * Telephone Encounter - Stephani Becerril [facility] - 04/17/2024 10:58 AM EST I have reviewed the patients controlled substance dispensing history in the Prescription Drug Monitoring Program in compliance with the [facility] regulations before prescribing a controlled substance. PDMP checked on 04/17/2024. Pending Prescriptions: Disp Refills oxyCODONE HCl 5 MG Oral Tablet (Oxy IR) 100 Ta*0 Sig: Take 1 Tablet by mouth every 6 hours as needed for Pain, Severe. Last Visit: 12/22/2023 (in office), 08/24/2020 (telemedicine) Next Visit: 06/25/2024 Date medication was last filled: 03/27 Date medication is due for refill: 04/20 [facility] [place] Is this request for a controlled substance? Yes and Urine Drug Screen was completed Toxicology results: Results for orders placed or performed in visit on 11/29/23 TOXICOLOGY, URINE SCREEN W/ CONFIRMATION Result Value Amphetamines Screen, U Negative Benzodiazepines Screen, U Negative Cannabinoids Screen, U Negative Cocaine Metabolite Screen, U Negative Fentanyl Screen, U Negative Hydrocodone Screen, U Negative Methadone Metabolite Screen, U Negative Morphine/Codeine Screen, U Negative Oxycodone Screen, U Negative Narrative Cutoff Concentrations: Drug Level Amphetamines 500 [...] Review. Please approve if appropriate. Thank you, Stephani Becerril, [place] Clinical Pharmacist [facility]) 04/17/24 10:58 AM [phone] * Telephone Encounter - Lianna Scott PHARM Tech - 04/16/2024 10:12 AM EST Did you pend patient's preferred pharmacy and medication before forwarding?yes Pharmacy: [facility] [place] Pending Prescriptions: Disp Refills oxyCODONE HCl 5 MG Oral Tablet (Oxy IR) 100 Ta*0 Sig: Take 1 Tablet by mouth every 6 hours as needed for Pain, Severe. Last Visit: 12/22/2023 (in office), 08/24/2020 (telemedicine) Next Visit: 06/25/2024 If no future appointments scheduled, and last appointment is greater than a year ago, please schedule patient for a follow-up appointment Last date the medication was ordered: 03/27/2024 Is this request for a controlled substance?Yes, What was the last refill date 03/27/2024 w/ quantity 100 and dosage 5 mg and Urine Drug Screen was completed Urine Drug Screen: Results for orders placed or performed in visit on 11/29/23 TOXICOLOGY, URINE SCREEN W/ CONFIRMATION Result Value Amphetamines Screen, U Negative Benzodiazepines Screen, U Negative Cannabinoids Screen, U Negative Cocaine Metabolite Screen, U Negative Fentanyl Screen, U Negative Hydrocodone Screen, U Negative Methadone Metabolite Screen, U Negative Morphine/Codeine Screen, U Negative Oxycodone Screen, U Negative Narrative Cutoff Concentrations: Drug Level Amphetamines 500 [...] found in Results Review. Patient Phone Numbers [employer] [phone] Labs: Lab Results Component Value Date/Time CREAT 1.4 (H) 10/27/2023 05:19 AM CREAT 0.75 10/07/2022 12:00 AM CREAT 1.1 (H) 02/17/2020 01:00 PM POTASSIUM 4.1 10/27/2023 05:19 AM POTASSIUM 3.8 10/07/2022 12:00 AM POTASSIUM 4.5 02/17/2020 01:00 PM TSH 0.85 03/02/2023 09:17 AM TSH 0.79 04/04/2017 11:34 AM LDL 54 02/21/2022 03:23 PM LDL 150 (H) 07/18/2018 12:17 PM LDL 75 04/04/2017 11:34 AM ALT 9 (L) 10/27/2023 05:19 AM ALT 12 02/17/2020 01:00 PM HGBA1C 6.2 (H) 11/29/2023 12:07 PM HGBA1C 6.4 (H) 01/15/2007 11:30 AM documented in this encounter Plan of Treatment Upcoming Encounters Date Type Department Care Team (Late st Contact Info) Description 05/20/2024 2:30 PM EST Home Visit [facility], [facility] [address] [place] [address] Areli Washburn, RN [address] [place] [address] 05/29/2024 11:30 AM EST Office Visit Pharmacy, [facility] [address] [place] [address] [facility] [address] [place] [address] 06/21/2024 9:30 AM EST Office Visit Cardiology, [facility] [address] [place] [address] Joshua Henson PAOlivaC [address] [place] [address] 06/25/2024 11:00 AM EST Office Visit Family Practice [facility] [address] [place] [address] Erica Marsh MD [address] [place] [address] 07/30/2024 9:00 AM EDT Imaging Vascular Lab, [facility] [address] [facility] [address] [place] [address] 07/30/2024 10:00 AM EDT Imaging Vascular Lab, [address] [place] [address] 07/30/2024 11:00 AM EDT Imaging Vascular Lab, [facility] [address] [facility] [address] [place] [address] 08/07/2024 12:50 PM EDT Office Visit Vascular Surgery, [facility] [address] [place] [address] Albin Marr MD [address] [place] [facility] [place] [address] Scheduled Procedures Name Priority Associated Diagnoses Date/Ti me COLONOSCOPY FLEXIBLE PROXIMA L DIAGNOSTIC Recall History of colonic polyps Health Maintenance Due Date Last Done Comments DISCUSS TOBACCO CESSATION (REFER TO SMARTSET #3291) 1945 Alpha-1 Antitrypsin 1965 Diabetic Foot Exam 1965 Adult Wellness Visit 2013 DXA Scan 09/04/2016 09/04/2013, 09/04/2013 *ADVANCE DIRECTIVE NOT ON FILE 06/09/2019 Depression Screening 06/02/2023 06/02/2022 Diabetic Eye Exam 07/21/2023 07/20/2022 COVID-19 Vaccine ( season) 2024 11/12/2020, 10/01/2020 Albumin/Creatinine Ratio 03/02/2024 023, 02/21/2022, 07/23/2019 CKD PHOS USE SMARTSET 28926 03/02/202402/19, 10/07/2022, 02/21/2022, Additional history exists GFR 04/27/2024 10/27/2023, 08/20, 07/18/2023, Additional history exists HbA1c 05/31/2024 11/29/2023, 02/19, 01/15/2007, Additional history exists CKD HGB USE SMARTSET 42083 10/26/202410/26, 10/27/2023, 09/07/2023, Additional history exists O2 ASSESSMENT COMPLETED IN PAST YEAR FOR COPD 01/11/2025 01/12/2024 Colonoscopy 07/03/2028 07/03/2023, 08/28/2012 DTap/Tdap Vaccines (4 - Td or Tdap) 06/02/2032 06/02/2022, 02/11/2011, 05/22/1995 Pneumococcal Vaccine: 65+ Years Completed 02/23/2017, 10/22/2014, 02/26/2007 Hepatitis B Vaccine Completed 04/02/2018, 09/29/2017, 07/24/2017 Zoster Vaccines Completed 01/20/2020, 07/23/2019 RETIRED - COLONOSCOPY-EVERY 5 YRS AGES 18-100 Discontinued 07/03/2023, 08/28/2012 Influenza Vaccine (FLU shot) Completed 03/27/2024, 02/27/2023, 02/27/2023, Additional history exists HPV (Gardasil) Vaccine Aged Out No lo nger eligible based on patient's age to complete this topic MENINGOCOCCAL (MENACTRA/MENVEO) Aged Out No longer eligible based on patient's age to complete this topic documented as of this encounter Medical Devices Implanted Type Area Transfer Iron Operator Device Identifier Shelf Expiration Date Model / Serial / Lot Graft Stent Balloon Expandable Endoprosthesis , 7 Mm 39 Mm 6 Fr 135 Cm Cath Heparin - [id number] Implanted:Qty: 1 on 01/12/2024 by Albin Marr MD at OR [facility] [place] I[place]ac [employer] [id number] 07/18/2026 [id number] / [id number] / [id number] Graft Stent Balloon Expandable Endoprosthesis , 7 Mm 59 Mm 6 Fr 135 Cm Cath Heparin - [id number] Implanted:Qty: 1 on 01/12/2024 by Albin Marr [place] [facility] [place] Iliac [employer] [id number] 07/07/2026 [id number] / [id number] / [id number] documented as of this encounter Visit Diagnoses Diagnosis [...] without long-term current use of insulin (HCC) Chronic pain syndrome documented in this encounter [...] Power of Attor zee? No Care Teams Mental Health Program Manager Relationship Specialty Start Date End Date Loli NORWOOD, Marilyn Barraza MD [address] [place] [address] PCP - General Family Medicine 11/22/23 documented as of this encounter
--- OUTSIDE RECORDS SUMMARY | 2024-04-28 22:57 | External Medical Summary | Summary of Care ---
Author Name Unknown Organization [facility] Address [address] [facility] [address] Phone [phone] Care Team Providers Care Route Returner Name Role Phone Loli NORWOOD MD, Roman Barraza Primary Care Provider Encounter Details Date Type Department Care Team (Late st Contact Info) Description 04/04/2024 4:00 PM EST Home Visit [facility], [facility] [address] [place] [address] Areli Washburn, RN [address] [place] [address] Allergies Active Allergy Reactions Criticality Noted Date Comments Isosorbide Mononitrate 12/24/2007 Severe headaches Nsaids 05/29/2002 Tramadol Hcl Nausea/vomiting Low 01/09/2008 UGI distress documented as of this encounter (statuses as of 04/05/2024) Medications Furosemide 40 MG Oral Tablet (Lasix) Take 1 Tablet by mouth daily AND 0.5 Tablets daily at noon. 135 Tablet 3 3 Active Nystatin 695200 UNIT/GM External Powder (Nystop) Apply topically to affected area 3 times a day. Apply to area under breasts 60 g 3 4 Active Anoro Ellipta 62.5-25 MCG/ACT Inhalation Aerosol Powder Breath Activated (umeclidinium-eusebia nterol) INHALE ONE PUFF EVERY DAY 180 Blister Dosing Unit 4 Active Clopidogrel Bisulfate 75 MG Oral Tablet (Plavix) Take 1 Tablet by mouth in the morning. 30 Tablet 4 Active Cyanocobalamin 1000 MCG Oral Tablet (Cyanocobalamin) Take 1 Tablet by mouth in the morning. 30 Tablet 4 Active Apixaban 5 MG Oral Tablet (Eliquis) Take 1 Tablet by mouth in the morning and 1 Tablet before bedtime. 60 Tablet 4 Active Ferrous Sulfate 325 (65 Fe) MG Oral Tablet Delayed Release Take 1 Tablet by mouth in the morning and 1 Tablet before bedtime. 60 Tablet 4 Active levETIRAcetam 500 MG Oral Tablet (Keppra) Take 1 Tablet by mouth in the morning and 1 Tablet before bedtime. 60 Tablet 4 Active Nitroglycerin 0.4 MG Sublingual Tablet Sublingual (Nitrostat)Indicat ions:ASCVD (arteriosclerotic cardiovascular disease),Chest pain, unspecified type DISSOLVE ONE TABLET UNDER THE TONGUE NEEDED FOR CHEST pain, maximum THREE doses 25 Tablet 4 Active Ondansetron HCl 4 MG Oral Tablet (Zofran)Indication s:Nausea Take 1 Tablet by mouth every 8 hours as needed for Nausea. 20 Tablet 4 Active Pantoprazole Sodium 40 MG Oral Tablet Delayed Release (Protonix)Indicati ons:Abdominal pain, epigastric TAKE ONE TABLET BY MOUTH DAILY 30 MINUTES BEFORE FIRST meal of THE DAY 30 Tablet 4 Active traZODone HCl 50 MG Oral Tablet (Desyrel) Take 0.5 Tablets by mouth at bedtime. 15 Tablet 4 Active Vitamin D3 250 MCG (58527 UT) Oral Tablet Take by mouth. Active Atorvastatin Calcium 20 MG Oral Tablet (Lipitor) TAKE ONE TABLET AT BEDTIME 30 Tablet 5 4 Active Metoprolol Succinate ER 50 MG Oral Tablet Extended Release 24 Hour (toPROL XL) TAKE ONE TABLET BY MOUTH TWICE DAILY 56 Tablet 5 4 Active oxyCODONE HCl 5 MG Oral Tablet (Oxy IR)Indications:Chr onic pain syndrome Take 1 Tablet by mouth every 6 hours as needed for Pain, Severe. 100 Tablet 4 Active Pregabalin 75 MG Oral Capsule (Lyrica) Take 1 Capsule by mouth in the morning and 1 Capsule before bedtime. 60 Capsule 5 4 Active documented as of this encounter (statuses as of 04/05/2024) Active Problems Problem Noted Date Diagnosed Date [...] cardiomyopathy 07/18/2018 Coronary artery disease invo lving [facility] coronary artery of [facility] heart without angina pectoris 05/08/2018 Anxiety state 05/08/2018 Incomplete uterovaginal prolapse 09/29/2017 Cystocele, lateral 09/29/2017 Vaginal atrophy 09/29/2017 Hepatitis C antibody test positive 05/09/2017 Overview (03/12/2018): HCV treated; SVR Confirmed 03/05/2018 Controlled substance agreement signed 02/23/2017 Biventricular implantable ca rdioverter-defibrillator in situ 08/07/2013 Assessment & Plan (05/03/2023 4:10 PM EST): Followed by [facility] [place] History of colonic polyps 09/04/2012 Overview (02/20/2017): 09/01/2012: adenoma, repeat in 3 years ICD-10 update of inactive term Dyslipidemia, goal LDL below 70 05/07/2009 Overview (05/07/2009): Per Lipid Taxonomy. OLD MYOCARDIAL INFARCT 12/11/2008 Overview (12/11/2008): Modified by [place] Protocol #5. [facility] [place] right coronary bare metal stents S/P angioplasty with stent 09/07/2006 History of tobacco use documented as of this encounter (statuses as of 04/05/2024) Resolved Problems Problem Noted Date Diagnosed Date [...] 08/03/2023 Overview: Per CKD protocol Atherosclerosis of [facility] [place] co ronary artery without angina pectoris 07/28/2023 [...] for Patients with Cardiovascular Disease Project #: [id number] PI: Peyton Conn MD [phone] GENOMICS CARDIO RESEARCH OTHER*[id number] 01/15/2007 06/28/2016 Overview (09/04/2009): Renamed Per Clinical Trials Billing Project. Study Title: Genomic Markers for Patients with Cardiovascular Disease Project #: [id number] PI: Peyton Conn MD [phone] LV (left ventricular) mural thrombus 10/30/2006 12/28/2017 Tobacco use disorder 09/07/2006 010 Acute inferior myocardial infarction 08/19/2006 12/11/2008 Overview (12/11/2008): Modified by [place] Protocol #5. [facility] [place] right coronary bare metal stents EXAMINATION OF PARTICIPANT I N CLINICAL TRIAL - [facility] 08/19/2006 09/04/2009 Overview (09/04/2009): Renamed Per Clinical Trials Billing Project. [facility] AMI clinical trial 263 Single blind trial comparing heparin and IIB/IIIA with bivalirudin, and Taxus vs bare metal stent. Patient Follow-up for 5 years Mantel Craftsman: Trent Verduzco [phone] [facility] Clinical Trial*[id number] 08/19/2006 09/08/2014 Overview (09/04/2009): Renamed Per Clinical Trials Billing Project. [facility] AMI clinical trial 263 Single blind trial comparing heparin and IIB/IIIA with bivalirudin, and Taxus vs bare metal stent. Patient Follow-up for 5 years Mantel Craftsman: Trent Verduzco [phone] Menopause 08/29/2002 02/23/2017 LOC PRIM [id number] 05/29/200206/23 Dyslipidemia, goal to be determined 05/29/2002 05/07/2009 Overview (05/07/2009): Per Lipid Taxonomy. 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 (Household - for ages [...] Sign Reading Time Taken Comments Blood Pressure 92/62 04/04/2024 1:59 PM EST Pulse 70 04/04/2024 1:59 PM EST Temperature 36.3 C (97.3 F) 04/04/2024 1:59 PM ES T Respiratory Rate 18 04/04/2024 1:59 PM EST Oxygen Saturation 90% 04/04/2024 1:59 PM EST Inhaled Oxygen Concentration - - Weight - - Height - - Body Mass Index - - documented in this encounter Progress Notes * Areli Washburn RN - 04/04/2024 1:49 PM EST Current Concerns: Patient seen for follow up- COPD, CHF, CKD, Afib, HTN Recent vascular surgery 01/12/24- BLE angioplasty with stent placement Reports feeling well Will be moving to the Towers(apartment) next week. Vs wnl Lungs clear bilaterally Sob with exertion No LE edema Voiding without difficulty Bowels wnl- per report Appetite good Taking fluids well. Denies pain Physical Exam: Physical Exam Constitutional: Appearance: Normal appearance. Cardiovascular: [...] and Affect: Mood normal. Behavior: Behavior normal. Review of Systems: Review of Systems Constitutional: Negative. Respiratory: Negative. Cardiovascular: Negative. Gastrointestinal: Negative. Genitourinary: Negative. Musculoskeletal: Negative. Skin: Negative. Hematological: Negative. Psychiatric/Behavioral: Negative. Care Plan Goal Progress: GS - Patient/caregiver will verbalize an understanding of diagnosis, treatment and self management of chronic obstructive pulmonary disease (COPD) (Progressing) Start: 04/05/24 Expected End: 06/04/24 Orders Placed: No orders of the defined types were placed in this encounter. Medications Given: Care Gaps: Care Gaps Care gaps closed this contact:: Education (04/05/241641) Type of education: Clinical/disease (04/05/241641) documented in this encounter Plan of Treatment Upcoming Encounters Date Type Department Care Team (Late st Contact Info) Description 05/20/2024 2:30 PM EST Home Visit [facility], [facility] [address] [place] [address] Areli Washburn, RN [address] [place] [phone] 05/29/2024 11:30 AM EST Office Visit Pharmacy, [facility] [address] [place] [address] [facility] [address] [place] [address] 06/21/2024 9:30 AM EST Office Visit Cardiology, [facility] [address] [place] [address] Joshua Henson PAOlivaC [address] [place] [address] 06/25/2024 11:00 AM EST Office Visit [place] [facility] [address] [facility] [place] [facility] [place] [address] Erica Marsh MD [address] [facility] [place] [facility] [place] [address] 07/30/2024 9:00 AM EDT Imaging Vascular Lab, [address] [place] [address] 07/30/2024 10:00 AM EDT Imaging Vascular Lab, [address] [place] [address] 07/30/2024 11:00 AM EDT Imaging Vascular Lab, [facility] 2nd Floor, [place] [address] [facility] [place] [address] 08/07/2024 12:50 PM EDT Office Visit Vascular Surgery, [facility] [address] [place] [address] Albin Marr MD [address] [place] [address] Scheduled Procedures Name Priority Associated Diagnoses Date/Ti [...] 023, 02/21/2022, 07/23/2019 CKD PHOS USE SMARTSET 52313 03/02/202402/19, 10/07/2022, 02/21/2022, Additional history exists GFR 04/27/2024 10/27/2023, 08/20, 07/18/2023, Additional history exists HbA1c 05/31/2024 11/29/2023, 02/19, 01/15/2007, Additional history exists CKD HGB USE SMARTSET 03177 10/26/202410/26, 10/27/2023, 09/07/2023, Additional history exists O2 [...] this encounter Medical Devices Implanted Type Area Ward Clerk Device Identifier Shelf Expiration Date Model / Serial / Lot Graft Stent Balloon Expandable Endoprosthesis , 7 Mm 39 Mm 6 Fr 135 Cm Cath Heparin - [id number] Implanted:Qty: 1 on 01/12/2024 by Albin Marr MD at [place] [facility] [place] Right: Iliac [employer] [id number] 07/18/2026 [id number] / [id number] / [id number] Graft Stent Balloon Expandable Endoprosthesis , 7 Mm 59 Mm 6 Fr 135 Cm Cath Heparin - [id number] Implanted:Qty: 1 on 01/12/2024 by Albin Marr MD at [place] [facility] [place] Left: Iliac [employer] [id number] 07/07/2026 [id number] / [id number] / [id number] documented as of this encounter Advance Directives * [...] Power of Attor zee? No Care Teams Route Returner Relationship Specialty Start Date End Date Roman Ennis III, MD [address] [facility] [place] [address] PCP - General Family Medicine 11/22/23 documented as of this encounter
--- OUTSIDE RECORDS SUMMARY | 2024-04-28 22:57 | External Medical Summary | Summary of Care ---
Author Name Unknown Organization [facility] Address [address] [place] [address] Phone [phone] Care Team Providers Care Administration Clerk Name Role Phone Loli NORWOOD MD, Marilyn Barraza Primary Care Provider [phone] Reason for Visit * Reason Onset Date Comments Medication Refill 03/26/2024 Encounter Details Date Type Department Care Team (Late st Contact Info) Description 03/26/2024 Refill Family Practice [facility] [place] [address] [facility] [place] [place] [address] Marilyn Nogueira III, MD [address] [facility] [place] [address] Chronic pain syndrome Allergies Active Allergy Reactions Criticality Noted Date Comments Isosorbide Mononitrate 12/24/2007 Severe headaches Nsaids 05/29/2002 Tramadol Hcl Nausea/vomiting Low 01/09/2008 UGI distress documented as of this encounter (statuses as of 03/27/2024) Medications Medication Sig Dispensed Refills Start Date End Date Status Furosemide 40 MG Oral Tablet (Lasix) Take 1 Tablet by mouth daily AND 0.5 Tablets daily at noon. 135 Tablet 3 03/23/2023 Active Nystatin 206583 UNIT/GM External Powder (Nystop) Apply topically to affected area 3 times a day. Apply to area under breasts 60 g 3 08/24/2023 Active Anoro Ellipta 62.5-25 MCG/ACT Inhalation Aerosol Powder Breath Activated (umeclidinium-vilan terol) INHALE ONE PUFF EVERY DAY 180 Blister Dosing Unit 11/02/2023 Active Clopidogrel Bisulfate 75 MG Oral Tablet (Plavix) Take 1 Tablet by mouth in the morning. 30 Tablet 11/02/2023 Active Cyanocobalamin 1000 MCG Oral Tablet (Cyanocobalamin) Take 1 Tablet by mouth in the morning. 30 Tablet 11/02/2023 Active Apixaban 5 MG Oral Tablet (Eliquis) Take 1 Tablet by mouth in the morning and 1 Tablet before bedtime. 60 Tablet 11/02/2023 Active Ferrous Sulfate 325 (65 Fe) MG Oral Tablet Delayed Release Take 1 Tablet by mouth in the morning and 1 Tablet before bedtime. 60 Tablet 11/02/2023 Active levETIRAcetam 500 MG Oral Tablet (Keppra) Take 1 Tablet by mouth in the morning and 1 Tablet before bedtime. 60 Tablet 11/02/2023 Active Nitroglycerin 0.4 MG Sublingual Tablet Sublingual (Nitrostat)Indicati ons:ASCVD (arteriosclerotic cardiovascular disease),Chest pain, unspecified type DISSOLVE ONE TABLET UNDER THE TONGUE NEEDED FOR CHEST pain, maximum THREE doses 25 Tablet 11/02/2023 Active Ondansetron HCl 4 MG Oral Tablet (Zofran)Indications :Nausea Take 1 Tablet by mouth every 8 hours as needed for Nausea. 20 Tablet 11/02/2023 Active Pantoprazole Sodium 40 MG Oral Tablet Delayed Release (Protonix)Indicatio ns:Abdominal pain, epigastric TAKE ONE TABLET BY MOUTH DAILY 30 MINUTES BEFORE FIRST meal of THE DAY 30 Tablet 11/02/2023 Active traZODone HCl 50 MG Oral Tablet (Desyrel) Take 0.5 Tablets by mouth at bedtime. 15 Tablet 11/02/2023 Active Vitamin D3 250 MCG (72[address] UT) Oral Tablet Take by mouth. Active Gabapentin 300 MG Oral Capsule (Neurontin) Take 1 Capsule by mouth daily AND 2 Capsules at bedtime. 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 100 Tablet 03/01/2024 Discontinue d(Refill) documented as of this encounter (statuses as of 03/27/2024) Active Problems Problem Noted Date Diagnosed Date [...] [facility] Protocol Atrial fibrillation 02/27/2023 Last Assessment & Plan: [...] Overview: Modified by Acute DC Protocol #5. [facility] right coronary bare metal stents S/P angioplasty with stent 09/07/2006 History of tobacco use documented as of this encounter (statuses as of 03/27/2024) Resolved Problems Problem Noted Date Diagnosed Date [...] y disease with (acute) exacerbation 07/28/2023 11/06/2023 Overview: acute Acute deep vein thrombosis ( DVT) of proximal vein of right lower extremity 07/28/2023 11/06/2023 Overview: History - September 2022 admission Stage 3 chronic kidney disease 07/28/2023 08/03/2023 Overview: Per CKD protocol Atherosclerosis of [place] co ronary artery without angina pectoris 07/28/2023 11/06/2023 Overview: duplicate Hip pain, left 04/28/2023 11/28/2023 Atrial [...] BMP Pro-BNP Right leg DVT 01/04/2023 11/06/2023 Overview: History - September 2022 admission Migraine 10/14/2022 10/14/2022 Type 2 diabetes mellitus wit h diabetic chronic kidney disease 10/14/2022 11/28/2023 Last Assessment & Plan: DM2 - diet [...] 18 07/18/2018 ADVANCE DIRECTIVE INFORMATION 03/23/2018 2024 Overview: No, Advance Directive brochure offered , [...] for Patients with Cardiovascular Disease Project #: [id number] PI: Peyton Conn MD [phone] GENOMICS CARDIO RESEARCH OTHER*[id number] 01/15/2007 06/28/2016 Overview: Renamed Per Clinical Trials Billing Project. Study Title: Genomic Markers for Patients with Cardiovascular Disease Project #: [id number] PI: Peyton Conn MD [phone] LV (left ventricular) mural thrombus 10/30/2006 12/28/2017 Tobacco use disorder 09/07/2006 010 Acute inferior myocardial infarction 08/19/2006 12/11/2008 Overview: Modified by Acute DC Protocol #5. [facility] right coronary bare metal stents EXAMINATION OF PARTICIPANT I N CLINICAL TRIAL - HORIZONS 08/19/2006 09/04/2009 Overview: Renamed Per Clinical Trials Billing Project. [facility] AMI clinical trial 263 Single blind trial comparing heparin and IIB/IIIA with bivalirudin, and Taxus vs bare metal stent. Patient Follow-up for 5 years Hairspring Ii Inspector: Trent Verduzco [phone] [facility] Clinical Trial*[id number] 08/19/2006 09/08/2014 Overview: Renamed Per Clinical Trials Billing Project. [facility] AMI clinical trial 263 Single blind trial comparing heparin and IIB/IIIA with bivalirudin, and Taxus vs bare metal stent. Patient Follow-up for 5 years Hairspring Ii Inspector: Trent Verduzco [phone] Menopause 08/29/2002 02/23/2017 LOC PRIM [id number] 05/29/200206/23 Dyslipidemia, goal to be determined 05/29/2002 05/07/2009 Overview: Per Lipid Taxonomy. 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 Often true 12/21/2022 Childcare Answer Date Recorded Do you feel overwhelmed with taking care of a child, family member or friend? No 12/21/2022 Does your family need help f inding childcare? (Household - for ages 0-17 years) Not on file 12/21/2022 Clothing Answer Date Recorded Have you been unable to get clothing when it was really needed? No 12/21/2022 Is your family able to get c lothes or diapers when needed? (Household - for ages 0-17 years) Not on file 12/21/2022 Personal Safety Answer Date Recorded Do you feel unsafe or have concerns for your saf ety? No 12/21/2022 Do you have concerns for you r family's safety? (Household - for ages 0-17 years) Not on file 12/21/2022 Utilities Answer Date Recorded Do you have trouble paying y our heating, water, or electric bill? No 12/21/2022 Is your family able to pay t he heat, water, or electric bill? (Household - for ages 0-17 years) Not on file 12/21/2022 Does your family have access to good internet? (Household - for ages 0-17 years) Not on file 12/21/2022 Employment Status Answer Date Recorded Are you unemployed or without regular income? No 12/21/2022 Does the household have a gular source of income? (Household - for ages 0-17 years) Not on file 12/21/2022 Social Connections Answer Date Recorded How often do you feel lonely or isolated from th ose around you? Never 12/21/2022 Financial Resource Strain Answer Date R ecorded Do you have any trouble payi ng for your medications, or do you think you might in the future? Yes 12/21/2022 Does your family have troubl e paying for medicine? (Household - for ages 0-17 years) Not on file 12/21/2022 Transportation Needs Answer Date Record ed READ ONLY Do you have troubl e getting a ride to medical visits or work? Sometimes True 12/21/2022 Does your family have a hard time getting a ride to doctors visits? (Household - for ages 0-17 years) Not on file 12/21/2022 Has lack of transportation k ept you from medical appointments, meetings, work, or from getting things needed for daily living? Check all that apply. (Adult - for ages 18 years and over) Not on file 12/21/2022 Do you (or your family) have trouble finding or paying for a ride (transportation)? (Household - for ages 0-17 years) Not on file 12/21/2022 Housing Stability Answer Date Recorded Do you currently live in a s helter or have no steady place to sleep at night? No 12/21/2022 READ ONLY Do you think you a re at risk of becoming homeless? No 12/21/2022 Does your family worry about paying for your home or becoming homeless? (Household - for ages 0-17 years) Not on file 0 12/21/2022 Are you homeless or worried that you might be in the future? (Adult - for ages 18 years and over) Not on file Are you (or your family) obed eless or worried that you might be in the future? (Household - for ages 0-17 years) Not on file Food Insecurity Answer Date Recorded Do you need food for this week? No 12/21/2022 Are you able to get enough f ood for your family? (Household - for ages 0-17 years) Not on file 12/21/2022 Does your family need food t his week? (Household - for ages 0-17 years) Not on file 12/21/2022 Do you always have enough fo od for your family? (Household - for ages 0-17 years) Not on file 12/21/2022 Sex and Gender Information Value Date Recorded Sex Assigned at Female 11/28/2023 10:11 AM EDT Gender Identity Female 11/28/2023 10:11 AM EDT Sexual Orientation Straight 11/28/2023 10 :11 AM EDT Job Start Date Occupation Industry Not on file Not on file Not on file documented as of this encounter Miscellaneous Notes * Telephone Encounter - Marilyn Nogueira III, MD - 03/27/2024 10:51 AM ESTSigned Prescriptions: Disp Refills oxyCODONE HCl 5 MG Oral Tablet (Oxy IR) 100 Ta*0 Sig: Take 1 Tablet by mouth every 6 hours as needed for Pain, Severe.Authorizing Provider: MARILYN NOGUEIRA III------- * Telephone Encounter - Kriss Card [facility] - 03/27/2024 10:23 AM ESTPending Prescriptions: Disp Refills oxyCODONE HCl 5 MG Oral Tablet (Oxy IR) 100 Ta*0 Sig: Take 1 Tablet by mouth every 6 hours as needed for Pain, Severe. * Telephone Encounter - Kriss Card [facility] - 03/27/2024 10:22 AM EST I have reviewed the patients controlled substance dispensing history in the Prescription Drug Monitoring Program in compliance with the [place] regulations before prescribing a controlled substance. PDMP checked on 03/27/2024. Pending Prescriptions: Disp Refills oxyCODONE HCl 5 MG Oral Tablet (Oxy IR) 100 Ta*0 Sig: Take 1 Tablet by mouth every 6 hours as needed for Pain, Severe. Last Visit: 12/22/2023 (in office), 08/24/2020 (telemedicine) Next Visit: 06/25/2024 Date medication was last filled: 03/04 Date medication is due for refill: 03/28 Pharmacy: [facility], [address] [place] Is this request for [...] approve if appropriate. Thank you, Kriss Card, Lazara Clinical Pharmacist [facility] ([facility]) [phone] 03/27/2024, 10:22 AM * Telephone Encounter - Earl Keys pattern marker - 03/26/2024 9:18 AM EST Did you pend patient's preferred pharmacy and medication before forwarding?yes Pharmacy: [facility], [address] [place] Pending Prescriptions: Disp Refills [...] appointment Last date the medication was ordered: 03/01/2024 Is this request for a controlled substance?Yes, What was the last refill date 03/01/2024 w/ quantity 100 tabs and dosage 5 mg and Urine Drug Screen Not completed Urine [...] Care Team (Late st Contact Info) Description 03/27/2024 11:20 AM EST Office Visit Pharmacy, [facility] [address] [place] [address] [facility] [address] [place] [address] Medication Therapy Disease Management - Chronic Pain 04/04/2024 4:00 PM EST Home Visit [facility] [address] [place] [address] Areli Washburn RN [address] [place] [address] 06/21/2024 9:30 AM EST Office Visit Cardiology, [facility] [address] [place] [address] Joshua Henson PAOliavC [address] [facility] [place] [address] 06/25/2024 11:00 AM EST Office Visit Family Practice [facility] [address] [facility] [place] [address] Erica Marsh MD [address] [facility] [place] [address] 07/30/2024 9:00 AM EDT Imaging Vascular Lab, [address] [facility] [place] [address] 07/30/2024 10:00 AM EDT Imaging Vascular Lab, [address] [facility] [place] [address] 07/30/2024 11:00 AM EDT Imaging Vascular Lab, [address] [facility] [place] [address] 08/07/2024 12:50 PM EDT Office Visit Vascular Surgery, [facility] [address] [facility] [place] [address] Albin Marr MD [address] [place] [address] Scheduled Procedures Name Priority Associated Diagnoses Date/Ti me COLONOSCOPY FLEXIBLE PROXIMA L DIAGNOSTIC Recall History of colonic polyps Health Maintenance Due Date Last Done Comments DISCUSS TOBACCO CESSATION (REFER TO SMARTSET #6279) 1945 Alpha-1 Antitrypsin 1965 Diabetic Foot Exam 1965 Adult Wellness Visit 2013 DXA Scan 09/04/2016 09/04/2013, 09/04/2013 *ADVANCE DIRECTIVE NOT ON FILE 06/09/2019 Depression Screening 06/02/2023 06/02/2022 Diabetic Eye Exam 07/21/2023 07/20/2022 COVID-19 Vaccine ( season) 2024 11/12/2020, 10/01/2020 Influenza Vaccine (FLU shot) (#1) 2024 02/27/2023, 02/27/2023, 02/21/2022, Additional history exists Albumin/Creatinine Ratio 03/02/2024 023, 02/21/2022, 07/23/2019 CKD PHOS USE SMARTSET 19688 03/02/202402/19, 10/07/2022, 02/21/2022, Additional history exists GFR 04/27/2024 10/27/2023, 08/20, 07/18/2023, Additional history exists HbA1c 05/31/2024 11/29/2023, 02/19, 01/15/2007, Additional history exists CKD HGB USE SMARTSET 71282 10/26/202410/26, 10/27/2023, 09/07/2023, Additional history exists O2 ASSESSMENT COMPLETED IN PAST YEAR FOR COPD 01/11/2025 01/12/2024 Colonoscopy 07/03/2028 07/03/2023, 08/28/2012 DTap/Tdap Vaccines (4 - Td or Tdap) 06/02/2032 06/02/2022, 02/11/2011, 05/22/1995 Pneumococcal Vaccine: 65+ Years Completed 02/23/2017, 10/22/2014, 02/26/2007 Hepatitis B Vaccine Completed 04/02/2018, 09/29/2017, 07/24/2017 Zoster Vaccines Completed 01/20/2020, 07/23/2019 RETIRED - COLONOSCOPY-EVERY 5 YRS AGES 18-100 Discontinued 07/03/2023, 08/28/2012 HPV (Gardasil) Vaccine Aged Out No lo nger eligible based on patient's age to complete this topic MENINGOCOCCAL (MENACTRA/MENVEO) Aged Out No longer eligible based on patient's age to complete this topic documented as of this encounter Medical Devices Implanted Type Area Licensed Massage Practitioner Device Identifier Shelf Expiration Date Model / Serial / Lot Graft Stent Balloon Expandable Endoprosthesis , 7 Mm 39 Mm 6 Fr 135 Cm Cath Heparin - [id number] Implanted:Qty: 1 on 01/12/2024 by Albin Marr MD at OR [facility] Right: Iliac [employer] [id number] 07/18/2026 [id number] / [id number] / [id number] Graft Stent Balloon Expandable Endoprosthesis , 7 Mm 59 Mm 6 Fr 135 Cm Cath Heparin - [id number] Implanted:Qty: 1 on 01/12/2024 by Albin Marr MD at OR [facility] Left: Iliac [employer] [id number] 07/07/2026 [id number] / [id number] / [id number] documented as of this encounter Visit Diagnoses [...] Power of Attor zee? No Care Teams Administration Clerk Relationship Specialty Start Date End Date Marilyn Nogueira III, MD [address] [facility] [place] [address] PCP - General Family Medicine 11/22/23 documented as of this encounter
--- OUTSIDE RECORDS SUMMARY | 2024-04-28 22:57 | External Medical Summary | Summary of Care ---
Author Name Unknown Organization [facility] Address [address] [facility] [place] [address] Phone [phone] Care Team Providers Care Tax Services Intern Name Role Phone Loli NORWOOD MD, Roman Barraza Primary Care Provider Reason for Visit * Reason Comments eRx-Medication Refill Encounter Details Date Type Department Care Team (Late st Contact Info) Description 04/09/2024 Refill Cardiology, [facility] [place] [address] [place] [phone] Clara Zamorano CRNP [address] [place] [address] Encounter for long-term (current) use of medications* Allergies Active Allergy Reactions Criticality Noted Date Comments Isosorbide Mononitrate 12/24/2007 Severe headaches Nsaids 05/29/2002 Tramadol Hcl Nausea/vomiting Low 01/09/2008 UGI distress documented as of this encounter (statuses as of 04/10/2024) Medications Nystatin 896252 UNIT/GM External Powder (Nystop) Apply topically to affected area 3 times a day. Apply to area under breasts 60 g 3 08/24/19 24 Active Anoro Ellipta 62.5-25 MCG/ACT Inhalation Aerosol Powder Breath Activated (umeclidinium-francis anterol) INHALE ONE PUFF EVERY DAY 180 Blister [...] before bedtime. 60 Tablet 11/02/19 24 Active Ferrous Sulfate 325 (65 Fe) MG Oral Tablet Delayed Release Take 1 Tablet by mouth in the morning and 1 Tablet before bedtime. 60 Tablet 11/02/19 24 Active levETIRAcetam 500 MG Oral Tablet (Keppra) Take 1 Tablet by mouth in the morning and 1 Tablet before bedtime. 60 Tablet 11/02/19 24 Active Nitroglycerin 0.4 MG Sublingual Tablet Sublingual (Nitrostat)Indica tions:ASCVD (arteriosclerotic cardiovascular disease),Chest pain, unspecified type DISSOLVE ONE TABLET UNDER THE TONGUE NEEDED FOR CHEST pain, maximum THREE doses 25 Tablet 11/02/19 24 Active Ondansetron HCl 4 MG Oral Tablet (Zofran)Indicatio ns:Nausea Take 1 Tablet by mouth every 8 hours as needed for Nausea. 20 Tablet 11/02/19 24 Active Pantoprazole Sodium 40 MG Oral Tablet Delayed Release (Protonix)Indicat ions:Abdominal pain, epigastric TAKE ONE TABLET BY MOUTH DAILY 30 MINUTES BEFORE FIRST meal of THE DAY 30 Tablet 11/02/19 24 Active traZODone HCl 50 MG Oral Tablet (Desyrel) Take 0.5 Tablets by mouth at bedtime. 15 Tablet 11/02/19 24 Active Vitamin D3 250 MCG (66847 UT) Oral Tablet Take by mouth. Active Atorvastatin Calcium 20 MG Oral Tablet (Lipitor) TAKE ONE TABLET AT BEDTIME 30 Tablet 5 12/20/19 24 Active Metoprolol Succinate ER 50 MG Oral Tablet Extended Release 24 Hour (toPROL XL) TAKE ONE TABLET BY MOUTH TWICE DAILY 56 Tablet 5 03/13/20 24 Active oxyCODONE HCl 5 MG Oral Tablet (Oxy IR)Indications:Ch ronic pain syndrome Take 1 Tablet by mouth every 6 hours as needed for Pain, Severe. 100 Tablet 03/27/20 24 Active Pregabalin 75 MG Oral Capsule (Lyrica) Take 1 Capsule by mouth in the morning and 1 Capsule before bedtime. 60 Capsule 5 11/06/20 24 Active Furosemide 40 MG Oral Tablet (Lasix) TAKE ONE TABLET EVERY DAY and TAKE 1/2 TABLET AT NOON 135 Tablet 3 04/10/20 24 Active Furosemide 40 MG Oral Tablet (Lasix) Take 1 Tablet by mouth daily AND 0.5 Tablets daily at noon. 135 Tablet 3 03/23/20 23 024 Discontinued documented as of this encounter (statuses as of 04/10/2024) Active Problems Problem Noted Date Diagnosed Date [...] 07/18/2018 Coronary artery disease invo lving [place] coronary artery of [place] heart without angina pectoris 05/08/2018 Anxiety state 05/08/2018 Incomplete uterovaginal prolapse 09/29/2017 Cystocele, lateral 09/29/2017 Vaginal atrophy 09/29/2017 Hepatitis C antibody test positive 05/09/2017 Overview (03/12/2018): HCV treated; SVR Confirmed 03/05/2018 Controlled substance agreement signed 02/23/2017 Biventricular implantable ca rdioverter-defibrillator in situ 08/07/2013 Assessment & Plan (05/03/2023 4:10 PM EST): Followed by [facility] cardiology History of colonic polyps 09/04/2012 Overview (02/20/2017): 09/01/2012: adenoma, repeat in 3 years ICD-10 update of inactive term Dyslipidemia, goal LDL below 70 05/07/2009 Overview (05/07/2009): Per Lipid Taxonomy. OLD MYOCARDIAL INFARCT 12/11/2008 Overview (12/11/2008): Modified by Acute CA Protocol #5. [facility] right coronary bare metal stents S/P angioplasty with stent 09/07/2006 History of tobacco use documented as of this encounter (statuses as of 04/10/2024) Resolved Problems Problem Noted Date Diagnosed Date [...] 08/03/2023 Overview: Per CKD protocol Atherosclerosis of [place] co ronary artery without angina pectoris 07/28/2023 11/06/2023 Overview (11/06/2023): duplicate Hip pain, left 04/28/2023 11/28/2023 Atrial fibrillation 02/27/2023 03/16/20 23 Atrial fibrillation 02/27/2023 03/16/20 Hypertensive heart and [...] for Patients with Cardiovascular Disease Project #: [id number] PI: Peyton Conn MD [phone] GENOMICS CARDIO RESEARCH OTHER*[id number] 01/15/2007 06/28/2016 Overview (09/04/2009): Renamed Per Clinical Trials Billing Project. Study Title: Genomic Markers for Patients with Cardiovascular Disease Project #: [id number] PI: Peyton Conn MD [phone] LV (left ventricular) mural thrombus 10/30/2006 12/28/2017 Tobacco use disorder 09/07/2006 010 Acute inferior myocardial infarction 08/19/2006 12/11/2008 Overview (12/11/2008): Modified by Acute CA Protocol #5. [facility] right coronary bare metal stents EXAMINATION OF PARTICIPANT I N CLINICAL TRIAL - [place] 08/19/2006 09/04/2009 Overview (09/04/2009): Renamed Per Clinical Trials Billing Project. [facility] AMI clinical trial 263 Single blind trial comparing heparin and IIB/IIIA with bivalirudin, and Taxus vs bare metal stent. Patient Follow-up for 5 years Agriculture Internship: Trent Verduzco [phone] [facility] Clinical Trial*[id number] 08/19/2006 09/08/2014 Overview (09/04/2009): Renamed Per Clinical Trials Billing Project. [facility] AMI clinical trial 263 Single blind trial comparing heparin and IIB/IIIA with bivalirudin, and Taxus vs bare metal stent. Patient Follow-up for 5 years Agriculture Internship: Trent Verduzco [phone] Menopause 08/29/2002 02/23/2017 LOC PRIM GEHOORIF-Z-NEB 05/29/200206/23 Dyslipidemia, goal to be determined 05/29/2002 05/07/2009 Overview (05/07/2009): Per Lipid Taxonomy. 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 Caller can be reached at [phone]. Thank you, Beata Clinton CPhT Marketing Support Assistant III [facility] [address] [place] [address], [facility] [address] [phone] * Telephone Encounter - William Mccoy RPh - 04/09/2024 2:38 PM ESTPending Prescriptions: Disp Refills Furosemide 40 MG Oral Tablet (Lasix) 135 Ta*3 Sig: TAKE ONE TABLET EVERY DAY and TAKE 1/2 TABLET AT NOON * Telephone Encounter - William Mccoy [facility] - 04/09/2024 2:36 PM EST Unable to authorize medication refills for pended medication(s) at this time. Part of the protocol criteria used for refill authorization was not satisfied. Patient's last Scr was elevated again. Magnesium lab ordered for next routine lab work. Please approve if appropriate. Component Latest Ref Rng 07/18/2023 09/07/2023 10/27/2023 CREATININE 0.5 - 1.0 mg/dL 1.4 (H) 1.0 1.4 (H) William Mccoy, Pharm.D. Clinical Pharmacist [facility]) 04/09/2024, 2:36 PM [phone] documented in this encounter Plan of Treatment Upcoming Encounters Date Type Department Care Team (Late st Contact Info) Description 05/20/2024 2:30 PM EST Home Visit [facility] [address] [place] [address] Areli Washburn RN [address] [place] [address] 05/29/2024 11:30 AM EST Office Visit Pharmacy, [facility] [place] [address] [place] [address] [facility] [address] [place] [address] 06/21/2024 9:30 AM EST Office Visit Cardiology, [facility] [place] [address] [place] [address] Joshua Henson PA-C [address] [place] [address] 06/25/2024 11:00 AM EST Office Visit Family [facility] [address] [facility] [place] [address] Erica Marsh MD [address] [place] [address] 07/30/2024 9:00 AM EDT Imaging Vascular Lab, [address] [place] [address] 07/30/2024 10:00 AM EDT Imaging Vascular Lab, [address] [place] [address] 07/30/2024 11:00 AM EDT Imaging Vascular Lab, [address] [place] [address] 08/07/2024 12:50 PM EDT Office Visit Vascular Surgery, [facility] [place] [address] [place] [address] Albin Marr MD [address] [place] [address] Scheduled Orders Name Type Priority Associated Diagnoses Orde r Schedule MAGNESIUM Lab Routine Encounter for long-term (current) use of medications Expected: 04/09/2024 (Approximate), Expires: 04/09/2025 Scheduled Procedures Name Priority Associated Diagnoses Date/Ti [...] 023, 02/21/2022, 07/23/2019 CKD PHOS USE SMARTSET 54107 03/02/202402/19, 10/07/2022, 02/21/2022, Additional history exists GFR 04/27/2024 10/27/2023, 08/20, 07/18/2023, Additional history exists HbA1c 05/31/2024 11/29/2023, 02/19, 01/15/2007, Additional history exists CKD HGB USE SMARTSET 90519 10/26/202410/26, 10/27/2023, 09/07/2023, Additional history exists O2 [...] this encounter Medical Devices Implanted Type Area Steelworker Device Identifier Shelf Expiration Date Model / Serial / Lot Graft Stent Balloon Expandable Endoprosthesis , 7 Mm 39 Mm 6 Fr 135 Cm Cath Heparin - [id number] Implanted:Qty: 1 on 01/12/2024 by Albin Marr MD at OR [facility] Right: Iliac [employer] [id number] 07/18/2026 [id number] / [id number] / [id number] Graft Stent Balloon Expandable Endoprosthesis , 7 Mm 59 Mm 6 Fr 135 Cm Cath Heparin - [id number] Implanted:Qty: 1 on 01/12/2024 by Albin Marr MD at OR [facility] Left: Iliac [employer] [id number] 07/07/2026 [id number] / [id number] / [id number] documented as of this encounter Visit Diagnoses [...] without long-term current use of insulin (HCC) Encounter for long-term (current) use of medications- Primary Encounter for long-term (current) use of other medications documented in this encounter Advance Directives * [...] Power of Attor zee? No Care Teams Tax Services Intern Relationship Specialty Start Date End Date Roman Ennis III, MD [address] [place] [address] PCP - General Family Medicine 11/22/23 documented as of this encounter
--- OUTSIDE RECORDS SUMMARY | 2024-04-28 22:57 | External Medical Summary | Summary of Care ---
Author Name Unknown Organization [facility] Address [address] [facility] [place] [address] Phone [phone] Care Team Providers Care Lav Crewman Name Role Phone Loli NORWOOD MD, Roman Barraza Primary Care Provider Encounter Details Date Type Department Care Team (Late st Contact Info) Description 03/28/2024 Population Health External Data Unspecified Department Allergies Active Allergy Reactions Criticality Noted Date Comments Isosorbide Mononitrate 12/24/2007 Severe headaches Nsaids 05/29/2002 Tramadol Hcl Nausea/vomiting Low 01/09/2008 UGI distress documented as of this encounter (statuses as of 04/04/2024) Medications Furosemide 40 MG Oral Tablet (Lasix) Take 1 Tablet by mouth daily AND 0.5 Tablets daily at noon. 135 Tablet 3 3 Active Nystatin 325838 UNIT/GM External Powder (Nystop) Apply topically to [...] Tablet 4 Active Vitamin D3 250 MCG (09819 UT) Oral Tablet Take by mouth. Active [...] as of this encounter (statuses as of 04/04/2024) Active Problems Problem Noted Date Diagnosed Date [...] cardiomyopathy 07/18/2018 Coronary artery disease invo lving [place] coronary artery of [place] heart without angina pectoris 05/08/2018 Anxiety state 05/08/2018 Incomplete uterovaginal prolapse 09/29/2017 Cystocele, lateral 09/29/2017 Vaginal atrophy 09/29/2017 Hepatitis C antibody test positive 05/09/2017 Overview (03/12/2018): HCV treated; SVR Confirmed 03/05/2018 Controlled substance agreement signed 02/23/2017 Biventricular implantable ca rdioverter-defibrillator in situ 08/07/2013 Assessment & Plan (05/03/2023 4:10 PM EST): Followed by [facility] cardiology History of colonic polyps 09/04/2012 Overview (02/20/2017): 09/01/2012: adenoma, repeat in 3 years ICD-10 update of inactive term Dyslipidemia, goal LDL below 70 05/07/2009 Overview (05/07/2009): Per Lipid Taxonomy. OLD MYOCARDIAL INFARCT 12/11/2008 Overview (12/11/2008): Modified by Acute ID Protocol #5. [facility] right coronary bare metal stents S/P angioplasty with stent 09/07/2006 History of tobacco use documented as of this encounter (statuses as of 04/04/2024) Resolved Problems Problem Noted Date Diagnosed Date [...] 08/03/2023 Overview: Per CKD protocol Atherosclerosis of [place] co ronary artery without angina pectoris 07/28/2023 [...] for Patients with Cardiovascular Disease Project #: [id number] PI: Peyton Conn MD [phone] GENOMICS CARDIO RESEARCH OTHER*[id number] 01/15/2007 06/28/2016 Overview (09/04/2009): Renamed Per Clinical Trials Billing Project. Study Title: Genomic Markers for Patients with Cardiovascular Disease Project #: [id number] PI: Peyton Conn MD [phone] LV (left ventricular) mural thrombus 10/30/2006 12/28/2017 Tobacco use disorder 09/07/2006 010 Acute inferior myocardial infarction 08/19/2006 12/11/2008 Overview (12/11/2008): Modified by Acute ID Protocol #5. C right coronary bare metal stents EXAMINATION OF PARTICIPANT I N CLINICAL TRIAL - [facility] 08/19/2006 09/04/2009 Overview (09/04/2009): Renamed Per Clinical Trials Billing Project. [facility] AMI clinical trial 263 Single blind trial comparing heparin and IIB/IIIA with bivalirudin, and Taxus vs bare metal stent. Patient Follow-up for 5 years Offal Trimmer: Trent Verduzco [phone] [facility] Clinical Trial*[id number] 08/19/2006 09/08/2014 Overview (09/04/2009): Renamed Per Clinical Trials Billing Project. [facility] AMI clinical trial 263 Single blind trial comparing heparin and IIB/IIIA with bivalirudin, and Taxus vs bare metal stent. Patient Follow-up for 5 years Offal Trimmer: Trent Verduzco [phone] Menopause 08/29/2002 02/23/2017 LOC PRIM [id number] 05/29/200206/23 Dyslipidemia, goal to be determined 05/29/2002 05/07/2009 Overview (05/07/2009): Per Lipid Taxonomy. 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 (Household - for ages [...] ages 0-17 years) Not on file 12/21/2022 Comments No Sex and Gender Information Value [...] Description 04/04/2024 4:00 PM EST Home Visit [facility], [address] [place] [id number] Areli Washburn RN [address] [place] [address] 05/29/2024 11:30 AM EST Office Visit Pharmacy, [facility] [address] [facility] [place] [address] [facility] [address] [facility] [facility] [place] [address] 06/21/2024 9:30 AM EST Office Visit Cardiology, [facility] [address] [facility] [place] [address] Joshua Henson PA-C [facility] [place] [address] 06/25/2024 11:00 AM EST Office Visit Family Practice [facility] [address] [place] [address] Erica Marsh MD 200 [facility] [place] [address] 07/30/2024 9:00 AM EDT Imaging Vascular Lab, [address] [facility] [place] [address] 07/30/2024 10:00 AM EDT Imaging Vascular Lab, [address] [facility] [place] [address] 07/30/2024 11:00 AM EDT Imaging Vascular Lab, [address] [facility] [place] [address] 08/07/2024 12:50 PM EDT Office Visit Vascular Surgery, [facility] [address] [facility] [place] [address] Albin Marr MD [address] [place] [address] Scheduled Procedures Name Priority Associated Diagnoses Date/Ti me COLONOSCOPY FLEXIBLE PROXIMA L DIAGNOSTIC Recall History of colonic polyps Health Maintenance Due Date Last Done Comments DISCUSS TOBACCO CESSATION (REFER TO SMARTSET #4281) 1945 Alpha-1 Antitrypsin 1965 Diabetic Foot Exam 1965 Adult Wellness Visit 2013 DXA Scan 09/04/2016 09/04/2013, 09/04/2013 *ADVANCE DIRECTIVE NOT ON FILE 06/09/2019 Depression Screening 06/02/2023 06/02/2022 Diabetic Eye Exam 07/21/2023 07/20/2022 COVID-19 Vaccine ( season) 2024 11/12/2020, 10/01/2020 Albumin/Creatinine Ratio 03/02/2024 023, 02/21/2022, 07/23/2019 CKD PHOS USE SMARTSET 83292 03/02/202402/19, 10/07/2022, 02/21/2022, Additional history exists GFR 04/27/2024 10/27/2023, 08/20, 07/18/2023, Additional history exists HbA1c 05/31/2024 11/29/2023, 02/19, 01/15/2007, Additional history exists CKD HGB USE SMARTSET 39416 10/26/202410/26, 10/27/2023, 09/07/2023, Additional history exists O2 [...] this encounter Medical Devices Implanted Type Area Military Pay Technician Device Identifier Shelf Expiration Date Model / Serial / Lot Graft Stent Balloon Expandable Endoprosthesis , 7 Mm 39 Mm 6 Fr 135 Cm Cath Heparin - [id number] Implanted:Qty: 1 on 01/12/2024 by Albin Marr MD at OR [facility] Right: Iliac [employer] [id number] 07/18/2026 [id number] / [id number] / [id number] Graft Stent Balloon Expandable Endoprosthesis , 7 Mm 59 Mm 6 Fr 135 Cm Cath Heparin - [id number] Implanted:Qty: 1 on 01/12/2024 by Albin Marr MD at OR [facility] Left: Iliac [employer] [id number] 07/07/2026 [id number] / [id number] / [id number] documented as of this encounter Advance Directives [...] Power of Attor zee? No Care Teams Lav Crewman Relationship Specialty Start Date End Date Roman Ennis III, MD [address] [place] [address] PCP - General Family Medicine 11/22/23 documented as of this encounter
--- OUTSIDE RECORDS SUMMARY | 2024-04-28 22:57 | External Medical Summary | Summary of Care ---
Author Name Unknown Organization [facility] Address [address] [place] [address] Phone [phone] Care Team Providers Care Direct Care Professional Name Role Phone Loli NORWOOD MD, Roman Barraza Primary Care Provider [phone] Reason for Visit * Reason Onset Date Comments New Med Request 03/27/2024 Encounter Details Date Type Department Care Team (Late st Contact Info) Description 03/27/2024 Telephone Pharmacy, [facility] [address] [facility] [place] [address] Mable Gonzalez, Formerly [facility] [address] [facility] [place] [id number] New Med Request Allergies Active Allergy Reactions Criticality [...] noon. 135 Tablet 3 03/23/2023 Active Nystatin 297992 UNIT/GM External Powder (Nystop) Apply topically to [...] Tablet 11/02/2023 Active Vitamin D3 250 MCG (29426 UT) Oral Tablet Take by mouth. Active Atorvastatin Calcium 20 MG Oral Tablet (Lipitor) TAKE ONE TABLET AT BEDTIME 30 Tablet 5 12/20/2023 Active Metoprolol Succinate ER 50 MG Oral Tablet Extended Release 24 Hour (toPROL XL) TAKE ONE TABLET BY MOUTH TWICE DAILY 56 Tablet 5 03/13/2024 Active oxyCODONE HCl 5 MG Oral Tablet (Oxy IR)Indications:Tear Down Man fernando pain syndrome Take 1 Tablet by mouth every 6 hours as needed for Pain, Severe. 100 Tablet 03/27/2024 Active Pregabalin 75 MG Oral Capsule (Lyrica) Take 1 Capsule by mouth in the morning and 1 Capsule before bedtime. 60 Capsule 5 03/27/2024 Active Gabapentin 300 MG Oral Capsule (Neurontin) Take 1 Capsule by mouth daily AND 2 Capsules at bedtime. 90 Capsule 11 12/07/2023 Discontinue d(Medicatio n/Dose Changed) documented as of this encounter (statuses as [...] cardiomyopathy 07/18/2018 Coronary artery disease invo lving [place] coronary artery of [place] heart without angina pectoris 05/08/2018 Anxiety state 05/08/2018 Incomplete uterovaginal prolapse 09/29/2017 Cystocele, lateral 09/29/2017 Vaginal atrophy 09/29/2017 Hepatitis C antibody test positive 05/09/2017 Overview: HCV treated; SVR Confirmed 03/05/2018 Controlled substance agreement signed 02/23/2017 Biventricular implantable ca rdioverter-defibrillator in situ 08/07/2013 Last Assessment & Plan: Followed by [facility] cardiology History of colonic polyps 09/04/2012 Overview: 09/01/2012: adenoma, repeat in 3 years ICD-10 update of inactive term Dyslipidemia, goal LDL below 70 05/07/2009 Overview: Per Lipid Taxonomy. OLD MYOCARDIAL INFARCT 12/11/2008 Overview: Modified by Acute [place] Protocol #5. [facility] right coronary bare metal [...] 08/03/2023 Overview: Per CKD protocol Atherosclerosis of [place] ronary artery without angina pectoris 07/28/2023 [...] for Patients with Cardiovascular Disease Project #: [id number] PI: Peyton Conn MD [phone] GENOMICS CARDIO RESEARCH OTHER*[id number] 01/15/2007 06/28/2016 Overview: Renamed Per Clinical Trials Billing Project. Study Title: Genomic Markers for Patients with Cardiovascular Disease Project #: [id number] PI: Peyton Conn MD [phone] LV (left ventricular) mural thrombus 10/30/2006 12/28/2017 Tobacco use disorder 09/07/2006 010 Acute inferior myocardial infarction 08/19/2006 12/11/2008 Overview: Modified by Acute [place] Protocol #5. [facility] right coronary bare metal stents EXAMINATION OF PARTICIPANT I N CLINICAL TRIAL - HORIZONS 08/19/2006 09/04/2009 Overview: Renamed Per Clinical Trials Billing Project. [facility] AMI clinical trial 263 Single blind trial comparing heparin and IIB/IIIA with bivalirudin, and Taxus vs bare metal stent. Patient Follow-up for 5 years Junior Marketing Associate: Trent GeovannySarah Verduzco [phone] [facility] Clinical Trial*[id number] 08/19/2006 09/08/2014 Overview: Renamed Per Clinical Trials Billing Project. [facility] AMI clinical trial 263 Single blind trial comparing heparin and IIB/IIIA with bivalirudin, and Taxus vs bare metal stent. Patient Follow-up for 5 years Junior Marketing Associate: Trent Verduzco [phone] Menopause 08/29/2002 02/23/2017 LOC PRIM [id number] 05/29/200206/23 Dyslipidemia, goal to be determined 05/29/2002 [...] No 12/21/2022 Does the household have a [facility] source of income? (Household - for ages [...] encounter Miscellaneous Notes * Telephone Encounter - Mable Gonzalez RPh - 03/27/2024 11:52 AM EST Nikki, Patient seen in MTM pain today. Recommending to rotate gabapentin to lyrica. Prescription pended for your approval. Thank you, Mable Gonzalez, Pharm D, BCACP Clinical Pharmacist 03/27/2024, 11:53 AM documented in this encounter Plan of Treatment Upcoming Encounters Date Type Department Care Team (Late st Contact Info) Description 04/04/2024 4:00 PM EST [facility] [address] [place] [address] Areli Washburn RN [address] [place] [address] 05/29/2024 11:30 AM EST Office Visit Pharmacy, [facility] [address] [facility] [place] [address] [facility] [address] [place] [address] 06/21/2024 9:30 AM EST Office Visit Cardiology, [facility] [address] [facility] [place] [address] Joshua Henson PA-C [address] [place] [address] 06/25/2024 11:00 AM EST Office Visit Family Practice [facility] [address] [place], [place] [address] Erica Marsh MD [address] [place], [place] [address] 07/30/2024 9:00 AM EDT Imaging Vascular Lab, [address] [facility] [place] [address] 07/30/2024 10:00 AM EDT Imaging Vascular Lab, [address] [facility] [place] [address] 07/30/2024 11:00 AM EDT Imaging Vascular Lab, [address] [facility] [place] [address] 08/07/2024 12:50 PM EDT Office Visit Vascular Surgery, [facility] [address] [facility] [place] [address] Albin Marr MD [address] [place] [address] Scheduled Procedures Name Priority Associated Diagnoses Date/Ti me COLONOSCOPY FLEXIBLE PROXIMA L DIAGNOSTIC Recall History of colonic polyps Health Maintenance Due Date Last Done Comments DISCUSS TOBACCO CESSATION (REFER TO SMARTSET #7893) 1945 Alpha-1 Antitrypsin 1965 Diabetic Foot Exam 1965 Adult Wellness Visit 2013 DXA Scan 09/04/2016 09/04/2013, 09/04/2013 *ADVANCE DIRECTIVE NOT ON FILE 06/09/2019 Depression Screening 06/02/2023 06/02/2022 Diabetic Eye Exam 07/21/2023 07/20/2022 COVID-19 Vaccine ( season) 2024 11/12/2020, 10/01/2020 Albumin/Creatinine Ratio 03/02/2024 023, 02/21/2022, 07/23/2019 CKD PHOS USE SMARTSET 98483 03/02/202402/19, 10/07/2022, 02/21/2022, Additional history exists GFR 04/27/2024 10/27/2023, 08/20, 07/18/2023, Additional history exists HbA1c 05/31/2024 11/29/2023, 02/19, 01/15/2007, Additional history exists CKD HGB USE SMARTSET 32489 10/26/202410/26, 10/27/2023, 09/07/2023, Additional history exists O2 [...] this encounter Medical Devices Implanted Type Area [employer]ator [employer] Device Identifier Shelf Expiration Date Model / Serial / Lot Graft Stent Balloon Expandable Endoprosthesis , 7 Mm 39 Mm 6 Fr 135 Cm Cath Heparin - [id number] Implanted:Qty: 1 on 01/12/2024 by Albin Marr MD at OR [facility] Right: Iliac [employer] [id number] 07/18/2026 [id number] / [id number] / [id number] Graft Stent Balloon Expandable Endoprosthesis , 7 Mm 59 Mm 6 Fr 135 Cm Cath Heparin - [id number] Implanted:Qty: 1 on 01/12/2024 by Albin Marr MD at OR [facility] Left: Iliac [employer] [id number] 07/07/2026 [id number] / [id number] / [id number] documented as of this encounter Advance Directives [...] Power of Attor zee? No Care Teams Direct Care Professional Relationship Specialty Start Date End Date Roman Ennis III, MD [address] [place] [address] PCP - General Family Medicine 11/22/23 documented as of this encounter
--- OUTSIDE RECORDS SUMMARY | 2024-04-28 22:57 | External Medical Summary | Summary of Care ---
Author Name Unknown Organization [facility] Address [address] [facility] [place] [address] Phone [phone] Care Team Providers Care Employment Recruiter Name Role Phone Loli NORWOOD MD, Roman Barraza Primary Care Provider [phone] Encounter Details Date Type Department Care Team (Late st Contact Info) Description 04/12/2024 Orders Only PATIENT PORTAL DO NOT DELETE THIS DEPT USED BY [place] [address] Allergies Active Allergy Reactions Criticality Noted Date Comments Isosorbide Mononitrate 12/24/2007 Severe headaches Nsaids 05/29/2002 Tramadol Hcl Nausea/vomiting Low 01/09/2008 UGI distress documented as of this encounter (statuses as of 04/12/2024) Medications Nystatin 076775 UNIT/GM External Powder (Nystop) Apply topically to [...] needed for Nausea. 20 Tablet 4 Active Vitamin D3 250 MCG (70977 UT) Oral Tablet Take by mouth. Active [...] before bedtime. 60 Capsule 5 4 Active Furosemide 40 MG Oral Tablet (Lasix) TAKE ONE TABLET EVERY DAY and TAKE 1/2 TABLET AT NOON 135 Tablet 3 4 Active Pantoprazole Sodium 40 MG Oral Tablet Delayed Release (Protonix)Indicati ons:Abdominal pain, epigastric TAKE ONE TABLET IN THE MORNING 30 Tablet 5 4 Active FeroSul 325 (65 Fe) MG Oral Tablet (Ferrous Sulfate) TAKE ONE TABLET TWICE DAILY 60 Tablet 5 4 Active traZODone HCl 50 MG Oral Tablet (Desyrel) TAKE 1/2 TABLET AT BEDTIME 15 Tablet 5 4 Active documented as of this encounter (statuses as of 04/12/2024) Active Problems Problem Noted Date Diagnosed Date [...] cardiomyopathy 07/18/2018 Coronary artery disease invo lving [place] coronary artery of [place] heart without angina pectoris 05/08/2018 Anxiety state 05/08/2018 Incomplete uterovaginal prolapse 09/29/2017 Cystocele, lateral 09/29/2017 Vaginal atrophy 09/29/2017 Hepatitis C antibody test positive 05/09/2017 Overview (03/12/2018): HCV treated; SVR Confirmed 03/05/2018 Controlled substance agreement signed 02/23/2017 Biventricular implantable ca rdioverter-defibrillator in situ 08/07/2013 Assessment & Plan (05/03/2023 4:10 PM EST): Followed by [facility] cardiology History of colonic polyps 09/04/2012 Overview (02/20/2017): 09/01/2012: adenoma, repeat in 3 years ICD-10 update of inactive term Dyslipidemia, goal LDL below 70 05/07/2009 Overview (05/07/2009): Per Lipid Taxonomy. OLD MYOCARDIAL INFARCT 12/11/2008 Overview (12/11/2008): Modified by Acute [place] Protocol #5. [facility] right coronary bare metal stents S/P angioplasty with stent 09/07/2006 History of tobacco use documented as of this encounter (statuses as of 04/12/2024) Resolved Problems Problem Noted Date Diagnosed Date [...] 08/03/2023 Overview: Per CKD protocol Atherosclerosis of [place] co ronary artery without angina pectoris 07/28/2023 [...] for Patients with Cardiovascular Disease Project #: [id number] PI: Peyton Conn MD [phone] GENOMICS CARDIO RESEARCH OTHER*[id number] 01/15/2007 06/28/2016 Overview (09/04/2009): Renamed Per Clinical Trials Billing Project. Study Title: Genomic Markers for Patients with Cardiovascular Disease Project #: [id number] PI: Peyton Conn MD [phone] LV (left ventricular) mural thrombus 10/30/2006 12/28/2017 Tobacco use disorder 09/07/2006 010 Acute inferior myocardial infarction 08/19/2006 12/11/2008 Overview (12/11/2008): Modified by Acute [place] Protocol #5. [facility] right coronary bare metal stents EXAMINATION OF PARTICIPANT I N CLINICAL TRIAL - HORIZONS 08/19/2006 09/04/2009 Overview (09/04/2009): Renamed Per Clinical Trials Billing Project. [facility] AMI clinical trial 263 Single blind trial comparing heparin and IIB/IIIA with bivalirudin, and Taxus vs bare metal stent. Patient Follow-up for 5 years X Ray Tech: Trent Verduzco [phone] [facility] Clinical Trial*[id number] 08/19/2006 09/08/2014 Overview (09/04/2009): Renamed Per Clinical Trials Billing Project. [facility] AMI clinical trial 263 Single blind trial comparing heparin and IIB/IIIA with bivalirudin, and Taxus vs bare metal stent. Patient Follow-up for 5 years X Ray Tech: Trent Verduzco [phone] Menopause 08/29/2002 02/23/2017 LOC PRIM [id number] 05/29/200206/23 Dyslipidemia, goal to be determined 05/29/2002 05/07/2009 Overview (05/07/2009): Per Lipid Taxonomy. 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 [place] [address] Areli Washburn RN [address] [place] [address] 05/29/2024 11:30 AM EST Office Visit Pharmacy, [facility] [address] [facility] [place] [address] [facility] [address] [facility] [place] [address] 06/21/2024 9:30 AM EST Office Visit Cardiology, [facility] [address] [facility] [place] [address] Joshua Henson PA-C [address] [facility] [place] [address] 06/25/2024 11:00 AM EST Office Visit Family Practice [facility] [address] [facility] [place] [address] Erica Marsh MD [address] [facility] [place] [address] 07/30/2024 9:00 AM EDT Imaging Vascular Lab, [address] [facility] [facility] [place] [address] 07/30/2024 10:00 AM EDT Imaging Vascular Lab, [address] [place] [address] 07/30/2024 11:00 AM EDT Imaging Vascular Lab, [address] [facility] [facility] [place] [address] 08/07/2024 12:50 PM EDT Office Visit Vascular Surgery, [facility] [address] [facility] [place] [address] Albin Marr MD [address] [place] [address] Scheduled Procedures Name Priority Associated Diagnoses Date/Ti me COLONOSCOPY FLEXIBLE PROXIMA L DIAGNOSTIC Recall History of colonic polyps Health Maintenance Due Date Last Done Comments DISCUSS TOBACCO CESSATION (REFER TO SMARTSET #7724) 1945 Alpha-1 Antitrypsin 1965 Diabetic Foot Exam 1965 Adult Wellness Visit 2013 DXA Scan 09/04/2016 09/04/2013, 09/04/2013 *ADVANCE DIRECTIVE NOT ON FILE 06/09/2019 Depression Screening 06/02/2023 06/02/2022 Diabetic Eye Exam 07/21/2023 07/20/2022 COVID-19 Vaccine ( season) 2024 11/12/2020, 10/01/2020 Albumin/Creatinine Ratio 03/02/2024 023, 02/21/2022, 07/23/2019 CKD PHOS USE SMARTSET 30331 03/02/202402/19, 10/07/2022, 02/21/2022, Additional history exists GFR 04/27/2024 10/27/2023, 08/20, 07/18/2023, Additional history exists HbA1c 05/31/2024 11/29/2023, 02/19, 01/15/2007, Additional history exists CKD HGB USE SMARTSET 61613 10/26/202410/26, 10/27/2023, 09/07/2023, Additional history exists O2 [...] this encounter Medical Devices Implanted Type Area Bulldogger Device Identifier Shelf Expiration Date Model / Serial / Lot Graft Stent Balloon Expandable Endoprosthesis , 7 Mm 39 Mm 6 Fr 135 Cm Cath Heparin - [id number] Implanted:Qty: 1 on 01/12/2024 by Albin Marr MD at OR [facility] Right: Iliac [employer] [id number] 07/18/2026 [id number] / [id number] / [id number] Graft Stent Balloon Expandable Endoprosthesis , 7 Mm 59 Mm 6 Fr 135 Cm Cath Heparin - [id number] Implanted:Qty: 1 on 01/12/2024 by Albin Marr MD at OR [facility] Left: Iliac [employer] [id number] 07/07/2026 [id number] / [id number] / [id number] documented as of this encounter Advance Directives [...] Power of Attor zee? No Care Teams Employment Recruiter Relationship Specialty Start Date End Date Roman Ennis III, MD [address] [place] [address] PCP - General Family Medicine 11/22/23 documented as of this encounter
--- OUTSIDE RECORDS SUMMARY | 2024-04-28 22:57 | External Medical Summary | Summary of Care ---
Author Name Unknown Organization [facility] Address [address] [facility] [place] [address] Phone [phone] Care Team Providers Care Energy Professional Name Role Phone Loli NORWOOD MD, Roman Barraza Primary Care Provider [phone] Reason for Visit * Reason Onset Date Comments Dosage Adjustment In Person (Anticoag Clinic) Pain Medication Administration 03/27/2024 Flu an d/or Pneumo Inj Encounter Details Date Type Department Care Team (Late st Contact Info) Description 03/27/2024 11:20 AM EST Office Visit Pharmacy, [facility] [address] [facility] [place] [address] [place] [address] Need for prophylactic vaccination and inoculation against influenza* Allergies Active Allergy Reactions Criticality Noted Date [...] noon. 135 Tablet 3 03/23/2023 Active Nystatin 279814 UNIT/GM External Powder (Nystop) Apply topically to [...] Tablet 11/02/2023 Active Vitamin D3 250 MCG (63456 UT) Oral Tablet Take by mouth. Active [...] for Pain, Severe. 100 Tablet 03/27/2024 Active documented as of this encounter (statuses [...] cardiomyopathy 07/18/2018 Coronary artery disease invo lving blackfeet coronary [...] Overview: Modified by Acute [place] Protocol #5. [facility] right [...] 08/03/2023 Overview: Per CKD protocol Atherosclerosis of blackfeet co ronary artery without angina pectoris 07/28/2023 [...] for Patients with Cardiovascular Disease Project #: [id number] PI: Peyton Conn MD [phone] GENOMICS CARDIO RESEARCH OTHER*[id number] 01/15/2007 06/28/2016 Overview: Renamed Per Clinical Trials Billing Project. Study Title: Genomic Markers for Patients with Cardiovascular Disease Project #: [id number] PI: Peyton Conn MD [phone] LV (left ventricular) mural thrombus 10/30/2006 12/28/2017 Tobacco use disorder 09/07/2006 010 Acute inferior myocardial infarction 08/19/2006 12/11/2008 Overview: Modified by Acute [place] Protocol #5. [facility] right coronary bare metal stents EXAMINATION OF PARTICIPANT I N CLINICAL TRIAL - HORIZONS 08/19/2006 09/04/2009 Overview: Renamed Per Clinical Trials Billing Project. [facility] AMI clinical trial 263 Single blind trial comparing heparin and IIB/IIIA with bivalirudin, and Taxus vs bare metal stent. Patient Follow-up for 5 years Domestic Cleaner: Trent Verduzco [phone] [facility] Clinical Trial*[id number] 08/19/2006 09/08/2014 Overview: Renamed Per Clinical Trials Billing Project. [facility] AMI clinical trial 2004- 6294 Single blind trial comparing heparin and IIB/IIIA with bivalirudin, and Taxus vs bare metal stent. Patient Follow-up for 5 years Domestic Cleaner: Trent GeovannySarah SteeleVerduzco [phone] Menopause 08/29/2002 02/23/2017 LOC PRIM [id number] 05/29/200206/23 Dyslipidemia, goal to be determined 05/29/2002 [...] No 12/21/2022 Does the household have a re gular [...] on file documented as of this encounter Patient Instructions * Patient Instructions* Mable Gonzalez RPh - 03/27/2024 11:55 AM EST ~~PATIENT INSTRUCTIONS FOR FLU SHOT~~ Possible side [...] documented in this encounter Progress Notes * Mable Gonzalez RPh - 03/27/2024 10:35 AM EST Images from the original note were not included. Medication Therapy Disease Management - Chronic Pain History of Presenting Illness This visit occurred in person. Radha Tong, identified by name and date of , is a 79 year old female presents to the [facility] for return visit. Chief Complaint Patient presents with Dosage Adjustment In Person (Antico Clinic) Pain Chronic Pain History Medication Use Agreement: Yes Current Pain Medications: Oxycodone 5 mg V2fqeva max 4 per day/100 per month (03/29/22 for 100 tabs) Gabapentin 300 mg BID and 600 mg HS * eliquis Activity/Exercise: Able to walk now more than 6 steps due to having her arteries unclogged Functional Goal(s) QOL Interval History Notes her hip still bothers her Notes that still having neuropathy in her feet, notes gabapentin is not helping Notes sciatica acting up with the weather Doing well overall, continues to be active with [employer], eating good home cooked meals and applied to move to [place] with transportation Continues with her two cats History of Presenting Illness & Review of Systems Diagnosis: Back pain, neuropathy Chronicity: Chronic Onset: More than a 1 year ago Frequency: Daily Pain location: Lower back, hip and foot Pain quality: Burning, numbness and stiffness Radiates to: Generalized Pain is worse: At bedtime and at rest Aggravated by: Activity and change in weather Treatment(s) tried: Acetaminophen, antidepressants, heat, ice, NSAIDs, opioids and physical therapy Problem List Reviewed and updated in the EHR during the visit Substance Use Reviewed and updated in the EHR during the visit Objective Imaging History Controlled Substance Compliance Monitoring Total Score for Opioid Risk Assessment Tool (BRQ): 3-8 points (Medium Risk) Total Score for CAGE-AID (03/27/2024): 0 points (Unlikely Problem) Daily MME: 30 PDMP Reviewed (03/27/2024): I have reviewed the patient's controlled substance dispensing history in the Prescription Drug Monitoring Program in compliance with the [facility] regulations. Most recent answers to PEG-3 scale: PEG-3 Synopsis Last Urine Toxicology Screening Results for orders placed or performed in [...] results can be found in Results Review. Creatinine Clearance: Serum creatinine: 1.4 mg/dL (H) 10/27/23 0519 Estimated creatinine clearance: 29.8 mL/min (A) Creatinine Results: Recent Labs Units 10/27/23 0519 09/07/23 1159 07/18/23 0959 CREATININE - [facility] mg/dL 1.4* 1.0 1.4* Hepatic Function (ALT): Recent Labs Units 10/27/23 0519 07/18/23 0959 03/02/23 0917 ALT - [facility] U/L 9* 12 15 Comprehensive Metabolic Panel Results: Results for orders placed or performed in visit on 10/27/23 COMPREHENSIVE METABOLIC PANEL Result Value Ref Range BUN 43 (H) 6 - 20 mg/dL CREATININE 1.4 (H) 0.5 - 1.0 mg/dL EGFR 39 (L) >=60 mL/min SODIUM 138 135 - 146 mmol/L POTASSIUM 4.1 3.5 - 5.1 mmol/L CHLORIDE 98 98 - 107 mmol/L CO2 30 22 - 32 mmol/L ANION GAP 10 7 - 15 mmol/L GLUCOSE 104 70 - 120 mg/dL Albumin 3.6 (L) 3.8 - 5.0 g/dL AST 15 10 - 35 U/L Alkaline Phosphatase 67 35 - 130 U/L Bilirubin, Total 0.3 <=1.2 mg/dL CALCIUM 9.0 8.4 - 10.2 mg/dL Protein 5.8 (L) 6.0 - 8.3 g/dL ALT 9 (L) 10 - 35 U/L Assessment & Plan Patient aware MTM is a clinical pharmacist visit, with focus on medication options for current diagnoses referred by Primary Care Provider for review and optimization. The focus of this visit is: Medication optimization. Current regimen reviewed, patient is: Adherent to regimen. Treatment Options Rotate gabapentin to lyrica to help with neuropathy Treatment Concerns None at this time Education Provided Discussed rotation schedule for gabapentin Recommendations Week 1: Gabapentin 300 mg Am and 600 mg PM plus 75 mg HS Week 2: Gabapentin 300 mg AM and 75 mg BID Week 3: Lyrica 75 mg BID Patient verbalized understanding of the plan. Contact clinic with any issues. Visit date not found I spent a total of 30-39 minutes (exact time 32 mins) on the date of service in preparation, delivery, and documentation of the care provided to Radha Tong excluding any time spent in the performance of separately billed services or time spent by another provider/QHP. Mable Gonzalez [facility] Clinical Pharmacist - [facility] 03/27/2024 - 10:35 AM PRE - ADMINISTRATION DOCUMENTATION Are you experiencing any cold symptoms or fever? No Have you had Guillain-Hamburg Syndrome (an illness that causes paralysis) within the last 6 weeks? No Have you had the flu shot in the past? YES Have you ever had a reaction to the flu shot? No Mable Gonzalez RPh, 03/27/2024 11:55 AM Immunization Administration Documentation Time Out Procedure Performed: Yes Patient Identified (Ask Name/Date of ): Yes Does the patient have a fever greater than 101 degrees today? No Patient allergic to latex? No VFC Stock: No Immunization(s) verified: Yes, Immunization Name: Flu, VIS Sheet(s) given: Yes Verified Side and Site: Yes Verified Shot(s) with Parent(s)/Patient: Yes documented in this encounter Plan of Treatment Upcoming Encounters Date Type Department Care Team (Late st Contact Info) Description 04/04/2024 4:00 PM EST Home Visit [facility] [address] [place] [address] Areli Washburn RN [address] [place] [address] 05/29/2024 11:30 AM EST Office Visit Pharmacy, [facility] [address] [place] [address] [facility] [address] [place] [address] 06/21/2024 9:30 AM EST Office Visit Cardiology, [facility] [address] [place] [address] Joshua Henson PA-C [address] [place] [address] 06/25/2024 11:00 AM EST Office Visit Family [facility] [address] [facility] [place] [address] Erica Marsh MD [address] [facility] [place] [address] 07/30/2024 9:00 AM EDT Imaging Vascular Lab, [address] [place] [address] 07/30/2024 10:00 AM EDT Imaging Vascular Lab, [address] [facility] [place] [address] 07/30/2024 11:00 AM EDT Imaging Vascular Lab, [address] [place] [address] 08/07/2024 12:50 PM EDT Office Visit Vascular Surgery, [facility] [address] [facility] [place] [address] Albin Marr MD [address] [place], [place] [id number] Scheduled Procedures Name Priority Associated Diagnoses Date/Ti me COLONOSCOPY FLEXIBLE PROXIMA L DIAGNOSTIC Recall History of colonic polyps Health Maintenance Due Date Last Done Comments DISCUSS TOBACCO CESSATION (REFER TO SMARTSET #7911) 1945 Alpha-1 Antitrypsin 1965 Diabetic Foot Exam 1965 Adult Wellness Visit 2013 DXA Scan 09/04/2016 09/04/2013, 09/04/2013 *ADVANCE DIRECTIVE NOT ON FILE 06/09/2019 Depression Screening 06/02/2023 06/02/2022 Diabetic Eye Exam 07/21/2023 07/20/2022 COVID-19 Vaccine ( season) 2024 11/12/2020, 10/01/2020 Albumin/Creatinine Ratio 03/02/2024 023, 02/21/2022, 07/23/2019 CKD PHOS USE SMARTSET 71682 03/02/202402/19, 10/07/2022, 02/21/2022, Additional history exists GFR 04/27/2024 10/27/2023, 08/20, 07/18/2023, Additional history exists HbA1c 05/31/2024 11/29/2023, 02/19, 01/15/2007, Additional history exists CKD HGB USE SMARTSET 40543 10/26/202410/26, 10/27/2023, 09/07/2023, Additional history exists O2 [...] this encounter Medical Devices Implanted Type Area Convertible Top Installer Device Identifier Shelf Expiration Date Model / Serial / Lot Graft Stent Balloon Expandable Endoprosthesis , 7 Mm 39 Mm 6 Fr 135 Cm Cath Heparin - [id number] Implanted:Qty: 1 on 01/12/2024 by Albin Marr MD at [place] [facility] Right: Iliac [employer] [id number] 07/18/2026 [id number] / [id number] / [id number] Graft Stent Balloon Expandable Endoprosthesis , 7 Mm 59 Mm 6 Fr 135 Cm Cath Heparin - [id number] Implanted:Qty: 1 on 01/12/2024 by Albin Marr MD at OR [facility] Left: Iliac [employer] [id number] 07/07/2026 [id number] / [id number] / [id number] documented as of this encounter Visit Diagnoses Diagnosis Need for prophylactic vaccination and inoculation against influenza- Primary documented in this encounter Advance Directives * [...] Power of Attor zee? No Care Teams Energy Professional Relationship Specialty Start Date End Date Roman Ennis III, MD [address] [place] [address] PCP - General Family Medicine 11/22/23 documented as of this encounter
--- OUTSIDE RECORDS SUMMARY | 2024-04-28 22:57 | External Medical Summary | Summary of Care ---
Author Name Unknown Organization [facility] Address [address] [facility] [address] Phone [phone] Care Team Providers Care Neuroscientist Name Role Phone Loli NORWOOD MD, Marilyn Barraza Primary Care Provider [phone] Reason for Visit * Reason Comments eRx-Medication Refill Encounter Details Date Type Department Care Team (Late st Contact Info) Description 03/11/2024 Refill Family Practice [facility] 200 [facility] [place] [address] Marilyn Nogueira III, MD [facility] [address] Allergies Active Allergy Reactions Criticality Noted Date Comments Isosorbide Mononitrate 12/24/2007 Severe headaches Nsaids 05/29/2002 Tramadol Hcl Nausea/vomiting Low 01/09/2008 UGI distress documented as of this encounter (statuses as of 03/13/2024) Medications Medication Sig Dispensed Refills Start Date End Date Status Furosemide 40 MG Oral Tablet (Lasix) Take 1 Tablet by mouth daily AND 0.5 Tablets daily at noon. 135 Tablet 3 3 Active Nystatin 285143 UNIT/GM External Powder (Nystop) Apply topically to [...] Tablet 4 Active Vitamin D3 250 MCG (22313 UT) Oral Tablet Take by mouth. Active Gabapentin 300 MG Oral Capsule (Neurontin) Take 1 Capsule by mouth daily AND 2 Capsules at bedtime. 90 Capsule 11 4 Active Atorvastatin Calcium 20 MG Oral Tablet (Lipitor) TAKE ONE TABLET AT BEDTIME 30 Tablet 5 4 Active oxyCODONE HCl 5 MG Oral Tablet (Oxy IR)Indications:Hatchery Attendant fernando pain syndrome Take 1 Tablet by mouth every 6 hours as needed for Pain, Severe. 100 Tablet 4 Active Metoprolol Succinate ER 50 MG Oral Tablet Extended Release 24 Hour (toPROL XL) TAKE ONE TABLET BY MOUTH TWICE DAILY 56 Tablet 5 4 Active Metoprolol Succinate ER 50 MG Oral Tablet Extended Release 24 Hour (toPROL XL) Take 1 Tablet by mouth in the morning and 1 Tablet before bedtime. 30 Tablet 4 03/13/20 24 Discontinued documented as of this encounter (statuses as of 03/13/2024) Active Problems Problem Noted Date Diagnosed Date [...] cardiomyopathy 07/18/2018 Coronary artery disease invo lving kiana coronary artery of kiana heart without angina pectoris 05/08/2018 Anxiety state 05/08/2018 ADVANCE DIRECTIVE INFORMATION 03/23/2018 Overview: No, Advance Directive brochure offered , patient declined. Incomplete uterovaginal prolapse 09/29/2017 Cystocele, lateral 09/29/2017 Vaginal atrophy 09/29/2017 Hepatitis C antibody test positive 05/09/2017 Overview: HCV treated; SVR Confirmed 03/05/2018 Controlled substance agreement signed 02/23/2017 Biventricular implantable ca rdioverter-defibrillator in situ 08/07/2013 Last Assessment & Plan: Followed by [facility] cardiology History of colonic polyps 09/04/2012 Overview: 09/01/2012: adenoma, repeat in 3 years ICD-10 update of inactive term Dyslipidemia, goal LDL below 70 05/07/2009 Overview: Per Lipid Taxonomy. OLD MYOCARDIAL INFARCT 12/11/2008 Overview: Modified by Acute [place] Protocol #5. [facility] right coronary bare metal stents S/P angioplasty with stent 09/07/2006 History of tobacco use documented as of this encounter (statuses as of 03/13/2024) Resolved Problems Problem Noted Date Diagnosed Date [...] 08/03/2023 Overview: Per CKD protocol Atherosclerosis of kiana co ronary artery without angina pectoris 07/28/2023 [...] for Patients with Cardiovascular Disease Project #: [id number] PI: Peyton Conn MD [phone] GENOMICS CARDIO RESEARCH OTHER*[id number] 01/15/2007 06/28/2016 Overview: Renamed Per Clinical Trials Billing Project. Study Title: Genomic Markers for Patients with Cardiovascular Disease Project #: [id number] PI: Peyton Conn MD [phone] LV (left ventricular) mural thrombus 10/30/2006 12/28/2017 Tobacco use disorder 09/07/2006 010 Acute inferior myocardial infarction 08/19/2006 12/11/2008 Overview: Modified by Acute [place] Protocol #5. [facility] right coronary bare metal stents EXAMINATION OF PARTICIPANT I N CLINICAL TRIAL - HORIZONS 08/19/2006 09/04/2009 Overview: Renamed Per Clinical Trials Billing Project. [facility] AMI clinical trial 2004- 0264 Single blind trial comparing heparin and IIB/IIIA with bivalirudin, and Taxus vs bare metal stent. Patient Follow-up for 5 years Senior Software Architect: Trent Verduzco [phone] [facility] Clinical Trial*[id number] 08/19/2006 09/08/2014 Overview: Renamed Per Clinical Trials Billing Project. [facility] AMI clinical trial 263 Single blind trial comparing heparin and IIB/IIIA with bivalirudin, and Taxus vs bare metal stent. Patient Follow-up for 5 years Senior Software Architect: Trent Verduzco [phone] Menopause 08/29/2002 02/23/2017 LOC PRIM [id number] 05/29/200206/23 Dyslipidemia, goal to be determined 05/29/2002 05/07/2009 Overview: Per Lipid Taxonomy. 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 (Household - [...] encounter Miscellaneous Notes * Telephone Encounter - Tatianna Goff [facility] - 03/13/2024 2:12 AM EDTSigned Prescriptions: Disp Refills Metoprolol Succinate ER 50 MG Oral Tablet *56 Tab*5 Sig: TAKE ONE TABLET BY MOUTH TWICE DAILYAuthorizing Provider: MARILYN NOGUEIRA III User: TATIANNA GOFF- documented in this encounter Plan of Treatment Upcoming Encounters Date Type Department Care Team (Late st Contact Info) Description 03/20/2024 10:00 AM EDT Home Visit [facility] 132 [facility] [place] [address] Areli Washburn, LISA [address] [place] [address] 03/22/2024 10:30 AM EDT Cardiac Studies Cardiology, [facility] [address] [place] [address] [facility] [address] [place] [address] 03/27/2024 11:20 AM EST Office Visit Pharmacy, [facility] [address] [place] [address] [facility] [address] [place] [address] 06/21/2024 9:30 AM EST Office Visit Cardiology, [facility] [address] [place] [address] Joshua Henson PA-C [address] [place] [address] 06/25/2024 11:00 AM EST Office Visit Family Practice [facility] [address] [place] [address] Erica Marsh MD [address] [place] [address] 07/30/2024 9:00 AM EDT Imaging Vascular Lab, [address], [place] [address] [facility] [place] [address] 07/30/2024 10:00 AM EDT Imaging Vascular Lab, [address] [facility] [place] [address] 07/30/2024 11:00 AM EDT Imaging Vascular Lab, [address] [employer] [address] [facility] [place] [address] 08/07/2024 12:50 PM EDT Office Visit Vascular Surgery, [facility] [address] [facility] [place] [address] Albin Marr MD [address] [place] [address] Scheduled Procedures Name Priority Associated Diagnoses [...] 023, 02/21/2022, 07/23/2019 CKD PHOS USE SMARTSET 93452 03/02/202402/19, 10/07/2022, 02/21/2022, Additional history exists GFR 04/27/2024 10/27/2023, 08/20, 07/18/2023, Additional history exists HbA1c 05/31/2024 11/29/2023, 02/19, 01/15/2007, Additional history exists CKD HGB USE SMARTSET 56158 10/26/202410/26, 10/27/2023, 09/07/2023, Additional history exists O2 [...] this encounter Medical Devices Implanted Type Area Rand Cementer Device Identifier Shelf Expiration Date Model / Serial / Lot Graft Stent Balloon Expandable Endoprosthesis , 7 Mm 39 Mm 6 Fr 135 Cm Cath Heparin - [id number] Implanted:Qty: 1 on 01/12/2024 by Albin Marr MD at OR [facility] Right: Iliac [employer] [id number] 07/18/2026 [id number] / [id number] / [id number] Graft Stent Balloon Expandable Endoprosthesis , 7 Mm 59 Mm 6 Fr 135 Cm Cath Heparin - [id number] Implanted:Qty: 1 on 01/12/2024 by Albin Marr MD at OR [facility] Left: Iliac [employer] [id number] 07/07/2026 [id number] / [id number] / [id number] documented as of this encounter Advance Directives [...] Power of Attor zee? No Care Teams Neuroscientist Relationship Specialty Start Date End Date Marilyn Nogueira III, MD [address] [place] [address] PCP - General Family Medicine 11/22/23 documented as of this encounter
--- OUTSIDE RECORDS SUMMARY | 2024-04-28 22:57 | External Medical Summary | Summary of Care ---
Author Name Unknown Organization [facility] Address [address] [place] [facility] [place] [address] Phone [phone] Care Team Providers Care Can Dragger Name Role Phone Loli NORWOOD MD, Marilyn Barraza Primary Care Provider [phone] Reason for Visit * Reason Comments eRx-Medication Refill Encounter Details Date Type Department Care Team (Late st Contact Info) Description 04/09/2024 Refill Family Practice [facility] [address] [facility] [place] [address] Marilyn Nogueira III, MD [address] [facility] [place] [address] Abdominal pain, epigastric Allergies Active Allergy Reactions Criticality Noted Date Comments Isosorbide Mononitrate 12/24/2007 Severe headaches Nsaids 05/29/2002 Tramadol Hcl Nausea/vomiting Low 01/09/2008 UGI distress documented as of this encounter (statuses as of 04/11/2024) Medications Nystatin 197480 UNIT/GM External Powder (Nystop) Apply topically to [...] 11/02/19 24 Active Vitamin D3 250 MCG (62033 UT) Oral Tablet Take by mouth. Active [...] bedtime. 60 Capsule 5 03/27/20 24 Active Pantoprazole Sodium 40 MG Oral Tablet Delayed Release (Protonix)Indicat ions:Abdominal pain, epigastric TAKE ONE TABLET IN THE MORNING 30 Tablet 5 04/11/20 24 Active FeroSul 325 (65 Fe) MG Oral Tablet (Ferrous Sulfate) TAKE ONE TABLET TWICE DAILY 60 Tablet 5 04/11/20 24 Active traZODone HCl 50 MG Oral Tablet (Desyrel) TAKE 1/2 TABLET AT BEDTIME 15 Tablet 5 04/11/20 24 Active Ferrous Sulfate 325 (65 Fe) MG Oral Tablet Delayed Release Take 1 Tablet by mouth in the morning and 1 Tablet before bedtime. 60 Tablet 11/02/19 24 024 Discontinued Pantoprazole Sodium 40 MG Oral Tablet Delayed Release (Protonix)Indicat ions:Abdominal pain, epigastric TAKE ONE TABLET BY MOUTH DAILY 30 MINUTES BEFORE FIRST meal of THE DAY 30 Tablet 11/02/19 024 Discontinued traZODone HCl 50 MG Oral Tablet (Desyrel) Take 0.5 Tablets by mouth at bedtime. 15 Tablet 11/02/19 024 Discontinued documented as of this encounter (statuses as of 04/11/2024) Active Problems Problem Noted Date Diagnosed Date [...] cardiomyopathy 07/18/2018 Coronary artery disease invo lving [place] coronary artery of [place] heart without angina pectoris 05/08/2018 Anxiety state 05/08/2018 Incomplete uterovaginal prolapse 09/29/2017 Cystocele, lateral 09/29/2017 Vaginal atrophy 09/29/2017 Hepatitis C antibody test positive 05/09/2017 Overview (03/12/2018): HCV treated; SVR Confirmed 03/05/2018 Controlled substance agreement signed 02/23/2017 Biventricular implantable ca rdioverter-defibrillator in situ 08/07/2013 Assessment & Plan (05/03/2023 4:10 PM EST): Followed by [facility] [place] History of colonic polyps 09/04/2012 Overview (02/20/2017): 09/01/2012: adenoma, repeat in 3 years ICD-10 update of inactive term Dyslipidemia, goal LDL below 70 05/07/2009 Overview (05/07/2009): Per Lipid Taxonomy. OLD MYOCARDIAL INFARCT 12/11/2008 Overview (12/11/2008): Modified by Acute [place] Protocol #5. [facility] right coronary bare metal stents S/P angioplasty with stent 09/07/2006 History of tobacco use documented as of this encounter (statuses as of 04/11/2024) Resolved Problems Problem Noted Date Diagnosed Date [...] 08/03/2023 Overview: Per CKD protocol Atherosclerosis of [place] co ronary artery without angina pectoris 07/28/2023 [...] for Patients with Cardiovascular Disease Project #: [id number] PI: Peyton Conn MD [phone] GENOMICS CARDIO RESEARCH OTHER*[id number] 01/15/2007 06/28/2016 Overview (09/04/2009): Renamed Per Clinical Trials Billing Project. Study Title: Genomic Markers for Patients with Cardiovascular Disease Project #: [id number] PI: Peyton Conn MD [phone] LV (left ventricular) mural thrombus 10/30/2006 12/28/2017 Tobacco use disorder 09/07/2006 010 Acute inferior myocardial infarction 08/19/2006 12/11/2008 Overview (12/11/2008): Modified by Acute [place] Protocol #5. [facility] right coronary bare metal stents EXAMINATION OF PARTICIPANT I N CLINICAL TRIAL - [facility] 08/19/2006 09/04/2009 Overview (09/04/2009): Renamed Per Clinical Trials Billing Project. [facility] AMI clinical trial 263 Single blind trial comparing heparin and IIB/IIIA with bivalirudin, and Taxus vs bare metal stent. Patient Follow-up for 5 years Telecommunicator: Trent Verduzco [phone] [facility] Clinical Trial*[id number] 08/19/2006 09/08/2014 Overview (09/04/2009): Renamed Per Clinical Trials Billing Project. [facility] AMI clinical trial 263 Single blind trial comparing heparin and IIB/IIIA with bivalirudin, and Taxus vs bare metal stent. Patient Follow-up for 5 years Telecommunicator: Trent Verduzco [phone] Menopause 08/29/2002 02/23/2017 LOC PRIM [id number] 05/29/200206/23 Dyslipidemia, goal to be determined 05/29/2002 05/07/2009 Overview (05/07/2009): Per Lipid Taxonomy. 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 02/23/2017 documented as of this encounter (statuses as of 04/11/2024) Immunizations Name Administration Dates Next Due COVID-19 [...] Encounter - Marilyn Nogueira III, MD - 04/11/2024 9:08 AM ESTSigned Prescriptions: Disp Refills Pantoprazole Sodium 40 MG Oral Tablet Yvette*30 Tab*5 Sig: TAKE ONE TABLET IN THE MORNINGAuthorizing Provider: MARILYN NOGUEIRA III FeroSul 325 (65 Fe) MG Oral Tablet (Ferrou*60 Tab*5 Sig: TAKE ONE TABLET TWICE DAILYAuthorizing Provider: MARILYN NOGUEIRA III traZODone HCl50 MG Oral Tablet (Desyrel) 15 Tab*5 Sig: TAKE 1/2 TABLET AT BEDTIMEAuthorizing Provider: MARILYN GIMENEZ * Telephone Encounter - Adriano Carney [facility] - 04/10/2024 5:55 PM ESTPending Prescriptions: Disp Refills Pantoprazole Sodium 40 MG Oral Tablet Yvette*30 Tab*5 Sig: TAKE ONE TABLET IN THE MORNING FeroSul 325 (65 Fe) MG Oral Tablet (Ferrou*60 Tab*5 Sig: TAKE ONE TABLET TWICE DAILY traZODone HCl 50 MG Oral Tablet (Desyrel) 15 Tab*5 Sig: TAKE 1/2 TABLET AT BEDTIME * Telephone Encounter - Adriano Carney [facility] - 04/10/2024 5:55 PM ESTPending Prescriptions: Disp Refills Pantoprazole Sodium 40 MG Oral Tablet Yvette*30 Tab*5 Sig: TAKE ONE TABLET IN THE MORNING FeroSul 325 (65 Fe) MG Oral Tablet (Ferrou*60 Tab*5 Sig: TAKE ONE TABLET TWICE DAILY traZODone HCl 50 MG Oral Tablet (Desyrel) 15 Tab*5 Sig: TAKE 1/2 TABLET AT BEDTIME * Telephone Encounter - Sury Álvarez [facility] - 04/09/2024 3:27 PM EST Did you pend patient's preferred pharmacy and medication before forwarding?yes Pharmacy: [facility], [address] [place] Pending Prescriptions: Disp Refills Pantoprazole Sodium 40 MG Oral Tablet Del*30 Tab*0 Sig: TAKE ONE TABLET IN THE MORNING FeroSul 325 (65 Fe) MG Oral Tablet (Ange*60 Tab*0 Sig: TAKE ONE TABLET TWICE DAILY traZODone HCl 50 MG Oral Tablet (Desyrel)*15 Tab*0 Sig: TAKE 1/2 TABLET AT BEDTIME Last Visit: 11/10/2023 (in office), Visit date not found (telemedicine) Next Visit: Visit date not found If no future appointments scheduled, and last appointment is greater than a year ago, please schedule patient for a follow-up appointment Last date the medication was ordered: [id number] Is this request for a controlled substance?No [...] found in Results Review. Patient Phone Numbers [employer] [phone] Labs: Lab Results Component Value Date/Time CREAT [...] 2:30 PM EST [facility] Visit [facility] [address] [place] [address] Areli Washburn RN [address] [place], [place] [address] 05/29/2024 11:30 AM EST Office Visit Pharmacy, [facility] [address] [facility] [place] [address] [facility] [address] [place] [address] 06/21/2024 9:30 AM EST Office Visit Cardiology, [facility] [address] [facility] [place] [address] Joshua Henson PA-C [address] [facility] [place] [address] 06/25/2024 11:00 AM EST Office Visit [facility] [address] [place] [address] Erica Marsh MD [address] [facility] [place] [address] 07/30/2024 9:00 AM EDT Imaging Vascular Lab, [address] [facility] [place] [address] 07/30/2024 10:00 AM EDT Imaging Vascular Lab, [address] [facility] [place] [address] 07/30/2024 11:00 AM EDT Imaging Vascular Lab, [address] [facility] [place] [address] 08/07/2024 12:50 PM EDT Office Visit Vascular Surgery, [facility] [address] [facility] [place] [address] Albin Mrar MD [address] [facility] [place] [address] Scheduled Procedures Name Priority Associated Diagnoses Date/Ti me COLONOSCOPY FLEXIBLE PROXIMA L DIAGNOSTIC Recall History of colonic polyps Health Maintenance Due Date Last Done Comments DISCUSS TOBACCO CESSATION (REFER TO SMARTSET #9481) 1945 Alpha-1 Antitrypsin 1965 Diabetic Foot Exam 1965 Adult Wellness Visit 2013 DXA Scan 09/04/2016 09/04/2013, 09/04/2013 *ADVANCE DIRECTIVE NOT ON FILE 06/09/2019 Depression Screening 06/02/2023 06/02/2022 Diabetic Eye Exam 07/21/2023 07/20/2022 COVID-19 Vaccine ( season) 2024 11/12/2020, 10/01/2020 Albumin/Creatinine Ratio 03/02/2024 023, 02/21/2022, 07/23/2019 CKD PHOS USE SMARTSET 21184 03/02/202402/19, 10/07/2022, 02/21/2022, Additional history exists GFR 04/27/2024 10/27/2023, 08/20, 07/18/2023, Additional history exists HbA1c 05/31/2024 11/29/2023, 02/19, 01/15/2007, Additional history exists CKD HGB USE SMARTSET 16746 10/26/202410/26, 10/27/2023, 09/07/2023, Additional history exists O2 [...] this encounter Medical Devices Implanted Type Area Police Department Secretary Device Identifier Shelf Expiration Date Model / Serial / Lot Graft Stent Balloon Expandable Endoprosthesis , 7 Mm 39 Mm 6 Fr 135 Cm Cath Heparin - [id number] Implanted:Qty: 1 on 01/12/2024 by Albin Marr MD at [place] [facility] Right: Iliac [employer] [id number] 07/18/2026 [id number] / [id number] / [id number] Graft Stent Balloon Expandable Endoprosthesis , 7 Mm 59 Mm 6 Fr 135 Cm Cath Heparin - [id number] Implanted:Qty: 1 on 01/12/2024 by Albin Marr MD at [place] [facility] Left: Iliac [employer] [id number] 07/07/2026 [id number] / [id number] / [id number] documented as of this encounter Visit Diagnoses [...] without long-term current use of insulin (HCC) Abdominal pain, epigastric documented in this encounter Advance Directives * [...] Power of Attor zee? No Care Teams Can Dragger Relationship Specialty Start Date End Date Marilyn Nogueira III, MD [address] [place] [address] PCP - General Family Medicine 11/22/23 documented as of this encounter
--- OUTSIDE RECORDS SUMMARY | 2024-04-28 22:58 | External Medical Summary | Summary of Care ---
Author Name Unknown Organization [facility] Address [address] [place] [facility] [place] [address] Phone [phone] Care Team Providers Care Synthetic Gem Press Operator Name Role Phone Loli NORWOOD MD, Marilyn Barraza Primary Care Provider [phone] Reason for Referral * Medication Prior Authorization - Closed Specialty Diagnoses / Procedures Referred By Xuan bey Referred To Contact Diagnoses Chronic pain syndrome Marilyn Nogueira III, MD [address] [place] [address] Referral ID Status Reason Start Date Expiration Date Visits Re quested Visits Authorized [id number] Closed 999 999 Reason for Visit * Reason Onset Date Comments Medication Refill 02/29/2024 Encounter Details Date Type Department Care Team (Late st Contact Info) Description 02/29/2024 Refill Family Practice [facility] [place] [address] [place] [address] Marilyn Nogueira III, MD [address] [place] [address] Chronic pain syndrome Allergies Active Allergy Reactions Criticality Noted Date Comments Isosorbide Mononitrate 12/24/2007 Severe headaches Nsaids 05/29/2002 Tramadol Hcl Nausea/vomiting Low 01/09/2008 UGI distress documented as of this encounter (statuses as of 03/01/2024) Medications Medication Sig Dispensed Refills Start Date End Date Status Furosemide 40 MG Oral Tablet (Lasix) Take 1 Tablet by mouth daily AND 0.5 Tablets daily at noon. 135 Tablet 3 03/23/2023 Active Nystatin 835962 UNIT/GM External Powder (Nystop) Apply topically to [...] Tablet before bedtime. 60 Tablet 11/02/2023 Active Metoprolol Succinate ER 50 MG Oral Tablet Extended Release 24 Hour (toPROL XL) Take 1 Tablet by mouth in the morning and 1 Tablet before bedtime. 30 Tablet 11/02/2023 Active Nitroglycerin 0.4 MG Sublingual [...] Tablet 11/02/2023 Active Vitamin D3 250 MCG (35607 UT) Oral Tablet Take by mouth. Active Gabapentin 300 MG Oral Capsule (Neurontin) Take 1 Capsule by mouth daily AND 2 Capsules at bedtime. 90 Capsule 11 12/07/2023 Active Atorvastatin Calcium 20 MG Oral Tablet (Lipitor) TAKE ONE TABLET AT BEDTIME 30 Tablet 5 12/20/2023 Active oxyCODONE HCl 5 MG Oral Tablet (Oxy IR)Indications:Saddle Maker fernando pain syndrome Take 1 Tablet by mouth every 6 hours as needed for Pain, Severe. 100 Tablet 03/01/2024 Active oxyCODONE HCl 5 MG Oral Tablet (Oxy IR)Indications:Saddle Maker fernando pain syndrome Take 1 Tablet by mouth every 6 hours as needed for Pain, Severe. 100 Tablet 02/08/2024 Discontinue d(Refill) documented as of this encounter (statuses as of 03/01/2024) Active Problems Problem Noted Date Diagnosed Date [...] cardiomyopathy 07/18/2018 Coronary artery disease invo lving [place] [...] 08/07/2013 Last Assessment & Plan: [place] [facility] [place] History of colonic polyps 09/04/2012 Overview: 09/01/2012: adenoma, repeat in 3 years ICD-10 update of inactive term Dyslipidemia, goal LDL below 70 05/07/2009 Overview: Per Lipid Taxonomy. OLD MYOCARDIAL INFARCT 12/11/2008 Overview: Modified by Acute [place] Protocol #5. [facility] right coronary bare metal stents S/P angioplasty with stent 09/07/2006 History of tobacco use documented as of this encounter (statuses as of 03/01/2024) Resolved Problems Problem Noted Date Diagnosed Date [...] 08/03/2023 Overview: Per CKD protocol Atherosclerosis of [place] co ronary artery without angina pectoris 07/28/2023 11/06/2023 Overview: duplicate Hip pain, left 04/28/2023 11/28/2023 Atrial fibrillation 02/27/2023 03/16/20 Atrial fibrillation 02/27/2023 [...] for Patients with Cardiovascular Disease Project #: [id number] PI: Peyton Conn MD [phone] GENOMICS CARDIO RESEARCH OTHER*[id number] 01/15/2007 06/28/2016 Overview: Renamed Per Clinical Trials Billing Project. Study Title: Genomic Markers for Patients with Cardiovascular Disease Project #: [id number] PI: Peyton Conn MD [phone] LV (left ventricular) mural thrombus 10/30/2006 12/28/2017 Tobacco use disorder 09/07/2006 010 Acute inferior myocardial infarction 08/19/2006 12/11/2008 Overview: Modified by Acute [place] Protocol #5. [facility] right coronary bare metal stents EXAMINATION OF PARTICIPANT I N CLINICAL TRIAL - [facility] 08/19/2006 09/04/2009 Overview: Renamed Per Clinical Trials Billing Project. [facility] AMI clinical trial 263 Single blind trial comparing heparin and IIB/IIIA with bivalirudin, and Taxus vs bare metal stent. Patient Follow-up for 5 years Diabetes Specialist: Trent Verduzco [phone] [facility] Clinical Trial*[id number] 08/19/2006 09/08/2014 Overview: Renamed Per Clinical Trials Billing Project. [facility] AMI clinical trial 263 Single blind trial comparing heparin and IIB/IIIA with bivalirudin, and Taxus vs bare metal stent. Patient Follow-up for 5 years Diabetes Specialist: Trent Verduzco [phone] Menopause 08/29/2002 02/23/2017 LOC PRIM [id number] 05/29/200206/23 Dyslipidemia, goal to be determined 05/29/2002 05/07/2009 Overview: Per Lipid Taxonomy. 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 (Household - for ages [...] Encounter - Marilyn Nogueira III, MD - 03/01/2024 4:05 PM EDTSigned Prescriptions: Disp Refills oxyCODONE HCl 5 MG Oral Tablet (Oxy IR) 100 Ta*0 Sig: Take 1 Tablet by mouth every 6 hours as needed for Pain, Severe.Authorizing Provider: MARILYN NOGUEIRA III------- * Telephone Encounter - Hanh Walsh [facility] - 03/01/2024 1:05 PM EDTPending Prescriptions: Disp Refills oxyCODONE HCl 5 MG Oral Tablet (Oxy IR) 100 Ta*0 Sig: Take 1 Tablet by mouth every 6 hours as needed for Pain, Severe. * Telephone Encounter - Hanh Walsh [facility] - 03/01/2024 1:04 PM EDT I have reviewed the patients controlled substance dispensing history in the Prescription Drug Monitoring Program in compliance with the [facility] regulations before prescribing a controlled substance. PDMP checked on 03/01/2024. Pending Prescriptions: Disp Refills oxyCODONE HCl 5 MG Oral Tablet (Oxy IR) 100 Ta*0 Sig: Take 1 Tablet by mouth every 6 hours as needed for Pain, Severe. Last Visit: 12/22/2023 (in office), 08/24/2020 (telemedicine) Next Visit: 06/25/2024 Date medication was last filled: 02/09/24 Date medication is due for refill: 03/04/24 Pharmacy: [facility], [address] [place] Is this request for [...] Review. Please approve if appropriate. Thanks, Hanh Walsh, NakulD Clinical Pharmacist [facility] [phone] 03/01/2024 1:04 PM * Telephone Encounter - Latonia Villegas roller maker - 02/29/2024 10:55 AM EDT Did you pend patient's preferred pharmacy and medication before forwarding?yes Pharmacy: [facility], [address] [place] Pending Prescriptions: Disp Refills [...] substance?Yes, What was the last refill date 02/07 w/ quantity 100 and dosage 5 mg [...] found in Results Review. Patient Phone Numbers [facility] [phone] Labs: Lab Results Component Value Date/Time CREAT [...] Description 03/20/2024 10:00 AM EDT Home Visit [facility], [address] [place] [address] Areli Washburn, LISA [address] [place] [address] 03/22/2024 10:30 AM EDT Cardiac Studies Cardiology, [facility] [address] [place] [address] [facility] [address] [place] [address] 03/27/2024 11:20 AM EST Office Visit Pharmacy, [facility] [address] [place] [address] [facility] [address] [place] [address] 06/21/2024 9:30 AM EST Office Visit Cardiology, [facility] [address] [place] [address] Joshua Henson PA-C [address] [place] [address] 06/25/2024 11:00 AM EST Office Visit [facility] [address] [facility] [place], [place] [address] Erica Marsh MD 200 [facility] [place], [place] [address] 07/30/2024 9:00 AM EDT Imaging Vascular Lab, [facility], [place] 132 [facility] [place] [address] 07/30/2024 10:00 AM EDT Imaging Vascular Lab, [facility], [place] [address] [place] [address] 07/30/2024 11:00 AM EDT Imaging Vascular Lab, [address], [place] [address] [place] [address] 08/07/2024 12:50 PM EDT Office Visit Vascular Surgery, [facility] [address] [place] [address] Albin Marr MD [address] [facility] [place] [address] Scheduled Procedures Name Priority Associated Diagnoses Date/Ti [...] 023, 02/21/2022, 07/23/2019 CKD PHOS USE SMARTSET 67399 03/02/202402/19, 10/07/2022, 02/21/2022, Additional history exists GFR 04/27/2024 10/27/2023, 08/20, 07/18/2023, Additional history exists HbA1c 05/31/2024 11/29/2023, 02/19, 01/15/2007, Additional history exists CKD HGB USE SMARTSET 11168 10/26/202410/26, 10/27/2023, 09/07/2023, Additional history exists O2 [...] this encounter Medical Devices Implanted Type Area Valet Attendant Device Identifier Shelf Expiration Date Model / Serial / Lot Graft Stent Balloon Expandable Endoprosthesis , 7 Mm 39 Mm 6 Fr 135 Cm Cath Heparin - [id number] Implanted:Qty: 1 on 01/12/2024 by Albin Marr MD [place] [facility] [place]: Iliac [employer] [id number] 07/18/2026 [id number] / [id number] / [id number] Graft Stent Balloon Expandable Endoprosthesis , 7 Mm 59 Mm 6 Fr 135 Cm Cath Heparin - [id number] Implanted:Qty: 1 on 01/12/2024 by Albin Marr MD [place] [facility] Left: Iliac [employer] [id number] 07/07/2026 [id number] / [id number] / [id number] documented as of this encounter Visit Diagnoses [...] Power of Attor zee? No Care Teams Synthetic Gem Press Operator Relationship Specialty Start Date End Date Marilyn Nogueira III, MD [address] [facility] [place] [address] PCP - General Family Medicine 11/22/23 documented as of this encounter
--- OUTSIDE RECORDS SUMMARY | 2024-04-28 22:58 | External Medical Summary | Summary of Care ---
Author Name Unknown Organization [facility] Address [address] [place] [address] Phone [phone] Care Team Providers Care Cargo And Ramp Services Manager Name Role Phone Loli NORWOOD MD, Marilyn Barraza Primary Care Provider [phone] Reason for Referral * Medication Prior Authorization - Closed Specialty Diagnoses / Procedures Referred By Xuan bey Referred To Contact Diagnoses Chronic pain syndrome Marilyn Nogueira III, MD [address] [place] [address] Referral ID Status Reason Start Date Expiration Date Visits Re quested Visits Authorized [id number] Closed 999 999 Reason for Visit * Reason Onset Date Comments Medication Refill 02/07/2024 Encounter Details Date Type Department Care Team (Late st Contact Info) Description 02/07/2024 Refill Family Practice [facility] [place] [address] [place] [address] Marilyn Nogueira III, MD [address] [place] [address] Chronic pain syndrome Allergies Active Allergy Reactions Criticality Noted Date Comments Isosorbide Mononitrate 12/24/2007 Severe headaches Nsaids 05/29/2002 Tramadol Hcl Nausea/vomiting Low 01/09/2008 UGI distress documented as of this encounter (statuses as of 02/08/2024) Medications Medication Sig Dispensed Refills Start Date End Date Status Furosemide 40 MG Oral Tablet (Lasix) Take 1 Tablet by mouth daily AND 0.5 Tablets daily at noon. 135 Tablet 3 03/23/2023 Active Nystatin 023010 UNIT/GM External Powder (Nystop) Apply topically to [...] Tablet 11/02/2023 Active Vitamin D3 250 MCG (20588 UT) Oral Tablet Take by mouth. Active Gabapentin 300 MG Oral Capsule (Neurontin) Take 1 Capsule by mouth daily AND 2 Capsules at bedtime. 90 Capsule 11 12/07/2023 Active Atorvastatin Calcium 20 MG Oral Tablet (Lipitor) TAKE ONE TABLET AT BEDTIME 30 Tablet 5 12/20/2023 Active oxyCODONE HCl 5 MG Oral Tablet (Oxy IR)Indications:Wall Taper Helper fernando pain syndrome Take 1 Tablet by mouth every 6 hours as needed for Pain, Severe. 100 Tablet 02/08/2024 Active oxyCODONE HCl 5 MG Oral Tablet (Oxy IR)Indications:Wall Taper Helper fernando pain syndrome Take 1 Tablet by mouth every 6 hours as needed for Pain, Severe. 100 Tablet 01/17/2024 Discontinue d(Refill) documented as of this encounter (statuses as of 02/08/2024) Active Problems Problem Noted Date Diagnosed Date [...] cardiomyopathy 07/18/2018 Coronary artery disease invo lving [place] coronary [...] Overview: Modified by Acute [place] Protocol #5. [facility] right coronary bare metal stents S/P angioplasty with stent 09/07/2006 History of tobacco use documented as of this encounter (statuses as of 02/08/2024) Resolved Problems Problem Noted Date Diagnosed Date [...] 08/03/2023 Overview: Per CKD protocol Atherosclerosis of [place] co ronary artery without angina pectoris 07/28/2023 [...] for Patients with Cardiovascular Disease Project #: [id number] PI: Peyton Conn MD [phone] GENOMICS CARDIO RESEARCH OTHER*[id number] 01/15/2007 06/28/2016 Overview: Renamed Per Clinical Trials Billing Project. Study Title: Genomic Markers for Patients with Cardiovascular Disease Project #: [id number] PI: Peyton Conn MD [phone] LV (left ventricular) mural thrombus 10/30/2006 12/28/2017 Tobacco use disorder 09/07/2006 010 Acute inferior myocardial infarction 08/19/2006 12/11/2008 Overview: Modified by Acute [place] Protocol #5. [facility] right coronary bare metal stents EXAMINATION OF PARTICIPANT I N CLINICAL TRIAL - [facility] 08/19/2006 09/04/2009 Overview: Renamed Per Clinical Trials Billing Project. [facility] AMI clinical trial 263 Single blind trial comparing heparin and IIB/IIIA with bivalirudin, and Taxus vs bare metal stent. Patient Follow-up for 5 years Edi Specialist: Trent Verduzco [phone] [facility] Clinical Trial*[id number] 08/19/2006 09/08/2014 Overview: Renamed Per Clinical Trials Billing Project. [facility] AMI clinical trial 263 Single blind trial comparing heparin and IIB/IIIA with bivalirudin, and Taxus vs bare metal stent. Patient Follow-up for 5 years Edi Specialist: Trent Verduzco [phone] Menopause 08/29/2002 02/23/2017 LOC PRIM [id number] 05/29/200206/23 Dyslipidemia, goal to be determined 05/29/2002 05/07/2009 Overview: Per Lipid Taxonomy. 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 02/23/2017 documented as of this encounter (statuses as of 02/08/2024) Immunizations Name Administration Dates Next Due COVID-19 mRNA, LNP-s, No Pre serve, 2-Dose Series (Moderna) 11/12/2020,10/01/2020 H1N1 2009 Influenza, IM 06/08/2009 HEP A - Hepatitis A (Adult > 18 yrs) 04/02/2018, 07/24/2017 01/24/2018 Hepatitis B, 20+ yrs 04/02/2018,09/29/2017,07/2408/24/2017 Influenza Vaccine, Live, Int ranasal, Trivalent (Flumist) 03/29/2013 Pneumococcal Conjugate Vacc, 13 Valent (Prevnar) 10/22/2014 Pneumococcal Polysaccharide PPV23 (Pneumovax) 02/23/2017,02/26/2007 Seasonal Influenza Virus Vac cine, Unspecified Formulation 02/27/2023 Seasonal Influenza, PF, 6 M & above, IM , (FluLaval or Fluzone) 04/02/2018 Seasonal Influenza, Quadriva lent Hd (Fluzone Hd) 02/27/2023 Seasonal Influenza, Quadriva lent, No Preserve, IM 02/23/2017 Seasonal Influenza, Trivalen t, (IIV3), PF, (Fluzone) 04/10/2006 Seasonal Influenza, Trivalen t, (IIV3), with Preserv, (Fluzone) 03/26/2014,04/20/2013,03/27/2012,01/21,02/17/2010,06/08/2009,02/27/20 07 Seasonal Influenza, Trivalen t, Adjuvanted, 65+ YRS, [...] Encounter - Marilyn Nogueira III, MD - 02/08/2024 8:52 AM EDTSigned Prescriptions: Disp Refills oxyCODONE HCl 5 MG Oral Tablet (Oxy IR) 100 Ta*0 Sig: Take 1 Tablet by mouth every 6 hours as needed for Pain, Severe.Authorizing Provider: MARILYN NOGUEIRA III-------- * Telephone Encounter - Max Park [facility] - 02/08/2024 8:50 AM EDT Pending Prescriptions: Disp Refills oxyCODONE HCl 5 MG Oral Tablet (Oxy IR) 100 Ta*0 Sig: Take 1 Tablet by mouth every 6 hours as needed for Pain, Severe. * Telephone Encounter - Max Park [facility] - 02/08/2024 8:50 AM EDT I have reviewed the patients controlled substance dispensing history in the Prescription Drug Monitoring Program in compliance with the [facility] regulations before prescribing a controlled substance. PDMP checked on 02/08/2024. Pending Prescriptions: Disp Refills oxyCODONE HCl 5 MG Oral Tablet (Oxy IR) 100 Ta*0 Sig: Take 1 Tablet by mouth every 6 hours as needed for Pain, Severe. Last Visit: 12/22/2023 (in office), 08/24/2020 (telemedicine) Next Visit: 06/25/2024 Date medication was last filled: 01/16 Date medication is due for refill: 02/09 Pharmacy: [facility], [address] [place] Is this request for [...] Results Review. Please approve if appropriate. Thanks, Max Park PharmD Clinical Pharmacist [facility] ([facility]) [phone] 02/08/2024,8:50 AM * Telephone Encounter - Alessandra Owusu CPhT - 02/07/2024 8:25 AM EDT Did you pend patient's preferred pharmacy and medication before forwarding?yes [email or web address], [address] [place] Pending Prescriptions: Disp Refills [...] appointment Last date the medication was ordered: 01/17/24 Is this request for a controlled substance?Yes, What was the last refill date 01/17/24 w/ quantity 100 and dosage 5mg and [...] Care Team (Late st Contact Info) Description 03/07/2024 10:00 AM EDT Office Visit Pharmacy, [facility] [address] [place] [address] [facility] [address] [place], [place] [address] 03/20/2024 10:00 AM EDT Home Visit [facility], [facility] [address] [place] [address] Areli Washburn, LISA [address] [place] [address] 03/22/2024 10:30 AM EDT Cardiac Studies Cardiology, [facility] [address] [place] [address] Rossy Parham [facility] [address] [place] [address] 06/21/2024 9:30 AM EST Office Visit Cardiology, [facility] [address] [place] [address] Joshua Henson, PAOlivaC [address] [place] [address] 06/25/2024 11:00 AM EST Office Visit [facility] [address] [place], [place] [address] Erica Marsh MD [address] [place] [address] 07/30/2024 9:00 AM EDT Imaging Vascular Lab, [address], [place] [address] [place] [address] 07/30/2024 10:00 AM EDT Imaging Vascular Lab, [address], [place] [address] [place] [address] 07/30/2024 11:00 AM EDT Imaging Vascular Lab, [address], [place] [address] [place] [address] 08/07/2024 12:50 PM EDT Office Visit Vascular Surgery, [facility] [address] [place] [address] Albin Marr MD [address] [place] [address] Scheduled Procedures Name Priority Associated [...] 023, 02/21/2022, 07/23/2019 CKD PHOS USE SMARTSET 25171 03/02/202402/19, 10/07/2022, 02/21/2022, Additional history exists GFR 04/27/2024 10/27/2023, 08/20, 07/18/2023, Additional history exists HbA1c 05/31/2024 11/29/2023, 02/19, 01/15/2007, Additional history exists CKD HGB USE SMARTSET 37867 10/26/202410/26, 10/27/2023, 09/07/2023, Additional history exists O2 [...] this encounter Medical Devices Implanted Type Area Hand Silvering Supervisor Device Identifier Shelf Expiration Date Model / Serial / Lot Graft Stent Balloon Expandable Endoprosthesis , 7 Mm 39 Mm 6 Fr 135 Cm Cath Heparin - [id number] Implanted:Qty: 1 on 01/12/2024 by Albin Marr MD at OR [facility] Right: Iliac [employer] [id number] 07/18/2026 [id number] / [id number] / [id number] Graft Stent Balloon Expandable Endoprosthesis , 7 Mm 59 Mm 6 Fr 135 Cm Cath Heparin - [id number] Implanted:Qty: 1 on 01/12/2024 by Albin Marr MD at OR [facility] Left: Iliac [employer] [id number] 07/07/2026 [id number] / [id number] / [id number] documented as of this encounter Visit Diagnoses [...] Power of Attor zee? No Care Teams Cargo And Ramp Services Manager Relationship Specialty Start Date End Date Marilyn Nogueira III, MD [address] [facility] [place] [address] PCP - General Family Medicine 11/22/23 documented as of this encounter
--- OUTSIDE RECORDS SUMMARY | 2024-04-28 22:58 | External Medical Summary | Summary of Care ---
Author Name Unknown Organization [facility] Address [address] [place] [address] Phone [phone] Care Team Providers Care Legislative Analyst Name Role Phone Loli NORWOOD MD, Roman Barraza Primary Care Provider Encounter Details Date Type Department Care Team (Late st Contact Info) Description 02/06/2024 Orders Only Outcomes Research Department [address], [place] [id number] Peyton Quintero CHRA [employer] Research Other*[id number] Allergies Active Allergy Reactions Criticality Noted Date Comments Isosorbide Mononitrate 12/24/2007 Severe headaches Nsaids 05/29/2002 Tramadol Hcl Nausea/vomiting Low 01/09/2008 UGI distress documented as of this encounter (statuses as of 02/06/2024) Medications Medication Sig Dispensed Refills Start Date End Date Status Furosemide 40 MG Oral Tablet (Lasix) Take 1 Tablet by mouth daily AND 0.5 Tablets daily at noon. 135 Tablet 3 03/23/2023 Active Nystatin 925224 UNIT/GM External Powder (Nystop) Apply topically to [...] Tablet 11/02/2023 Active Vitamin D3 250 MCG (15826 UT) Oral Tablet Take by mouth. Active [...] needed for Pain, Severe. 100 Tablet 01/17/2024 Active documented as of this encounter (statuses as of 02/06/2024) Active Problems Problem Noted Date Diagnosed Date [...] cardiomyopathy 07/18/2018 Coronary artery disease invo lving [place] coronary artery of que[place] heart without angina pectoris 05/08/2018 Anxiety state 05/08/2018 ADVANCE DIRECTIVE INFORMATION 03/23/2018 Overview: No, Advance Directive brochure offered , patient declined. Incomplete uterovaginal prolapse 09/29/2017 Cystocele, lateral 09/29/2017 Vaginal atrophy 09/29/2017 Hepatitis C antibody test positive 05/09/2017 Overview: HCV treated; SVR Confirmed 03/05/2018 Controlled substance agreement signed 02/23/2017 Biventricular implantable ca rdioverter-defibrillator in situ 08/07/2013 Last Assessment & Plan: Followed by [facility] cardiology History of colonic polyps 09/04/2012 Overview: 09/01/2012: adenoma, repeat in 3 years ICD-10 update of inactive term Dyslipidemia, goal LDL below 70 05/07/2009 Overview: Per Lipid Taxonomy. OLD MYOCARDIAL INFARCT 12/11/2008 Overview: Modified by Acute [place] Protocol #5. [facility] right coronary bare metal stents S/P angioplasty with stent 09/07/2006 History of tobacco use documented as of this encounter (statuses as of 02/06/2024) Resolved Problems Problem Noted Date Diagnosed Date [...] 08/03/2023 Overview: Per CKD protocol Atherosclerosis of [place] co ronary artery without angina pectoris 07/28/2023 [...] for Patients with Cardiovascular Disease Project #: [id number] PI: Peyton Conn MD [phone] GENOMICS CARDIO RESEARCH OTHER*[id number] 01/15/2007 06/28/2016 Overview: Renamed Per Clinical Trials Billing Project. Study Title: Genomic Markers for Patients with Cardiovascular Disease Project #: [id number] PI: Peyton Conn MD [phone] LV (left ventricular) mural thrombus 10/30/2006 12/28/2017 Tobacco use disorder 09/07/2006 010 Acute inferior myocardial infarction 08/19/2006 12/11/2008 Overview: Modified by Acute [place] Protocol #5. [facility] right coronary bare metal stents EXAMINATION OF PARTICIPANT I N CLINICAL TRIAL - [facility] 08/19/2006 09/04/2009 Overview: Renamed Per Clinical Trials Billing Project. [facility] AMI clinical trial 263 Single blind trial comparing heparin and IIB/IIIA with bivalirudin, and Taxus vs bare metal stent. Patient Follow-up for 5 years Butcherette: Trent Verduzco [phone] [facility] Clinical Trial*[id number] 08/19/2006 09/08/2014 Overview: Renamed Per Clinical Trials Billing Project. [facility] AMI clinical trial 263 Single blind trial comparing heparin and IIB/IIIA with bivalirudin, and Taxus vs bare metal stent. Patient Follow-up for 5 years [place]cherette: Trent Verduzco [phone] Menopause 08/29/2002 02/23/2017 LOC PRIM [id number] 05/29/200206/23 Dyslipidemia, goal to be determined 05/29/2002 05/07/2009 Overview: Per Lipid Taxonomy. 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 Alcohol [...] Team (Late st Contact Info) Description 02/07/2024 10:30 AM EDT Office Visit Vascular Surgery, [facility] [address] [place] [address] Albin Marr MD [address] [place] [address] 03/07/2024 10:00 AM EDT Office Visit Pharmacy, [facility] [address] [place] [address] [facility] [address] [place] [address] 03/20/2024 10:00 AM EDT [facility], [facility] [address] [place] [address] Areli Washburn, RN [address] [place] [address] 03/22/2024 10:30 AM EDT Cardiac Studies Cardiology, [facility] [address] [facility] [place] [address] [place] [address] [place] [address] 06/21/2024 9:30 AM EST Office Visit Cardiology, [facility] [address] [facility] [place] [address] Joshua Henson PA-C [address] [place] [address] 06/25/2024 11:00 AM EST Office Visit Family Practice [facility] [address] [facility] [place] [address] Erica Marsh MD [address] [facility] [place] [address] Scheduled Orders Name Type Priority Associated Diagnoses Orde r Schedule MYCODE SUBSEQUENT ADULT Lab Routine My[employer] Research Other*[id number] Every 6 Months for 2 Occurrences starting 02/06/2024 until 02/25/2025 Scheduled Procedures Name Priority Associated Diagnoses Date/Ti me COLONOSCOPY FLEXIBLE PROXIMA L DIAGNOSTIC Recall History of colonic polyps Health Maintenance Due Date Last Done Comments DISCUSS TOBACCO CESSATION (REFER TO SMARTSET #8920) 1945 Alpha-1 Antitrypsin 1965 Diabetic Foot Exam 1965 Adult Wellness Visit 2013 DXA Scan 09/04/2016 09/04/2013, 09/04/2013 *ADVANCE DIRECTIVE NOT ON FILE 06/09/2019 Depression Screening 06/02/2023 06/02/2022 Diabetic Eye Exam 07/21/2023 07/20/2022 COVID-19 Vaccine ( season) 2024 11/12/2020, 10/01/2020 Influenza Vaccine (FLU shot) (#1) 2024 02/27/2023, 02/27/2023, 02/21/2022, Additional history exists Albumin/Creatinine Ratio 03/02/202403/02/ 023, 02/21/2022, 07/23/2019 CKD PHOS USE SMARTSET 13584 03/02/202402/19, 10/07/2022, 02/21/2022, Additional history exists GFR 04/27/2024 10/27/2023, 08/20, 07/18/2023, Additional history exists HbA1c 05/31/2024 11/29/2023, 02/19, 01/15/2007, Additional history exists CKD HGB USE SMARTSET 50895 10/26/202410/26, 10/27/2023, 09/07/2023, Additional history exists O2 [...] this encounter Medical Devices Implanted Type Area Pulp Screen Operator Device Identifier Shelf Expiration Date Model / Serial / Lot Graft Stent Balloon Expandable Endoprosthesis , 7 Mm 39 Mm 6 Fr 135 Cm Cath Heparin - [id number] Implanted:Qty: 1 on 01/12/2024 by Albin Marr MD at OR [facility] Right: Iliac [employer] [id number] 07/18/2026 [id number] / [id number] / [id number] Graft Stent Balloon Expandable Endoprosthesis , 7 Mm 59 Mm 6 Fr 135 Cm Cath Heparin - [id number] Implanted:Qty: 1 on 01/12/2024 by Albin Marr MD at OR [facility] Left: [employer] [facility] [id number] 07/07/2026 [id number] / [id number] / [id number] documented as of this encounter Visit Diagnoses Diagnosis [employer] Research Other*[id number] documented in this encounter Advance Directives * [...] Power of Attor zee? No Care Teams Legislative Analyst Relationship Specialty Start Date End Date Roman Ennis III, MD [address] [place] [address] PCP - General Family Medicine 11/22/23 documented as of this encounter
--- OUTSIDE RECORDS SUMMARY | 2024-04-28 22:58 | External Medical Summary | Summary of Care ---
Author Name Unknown Organization [facility] Address [address] [facility] [place] [address] Phone [phone] Care Team Providers Care Associate Name Role Phone Loli NORWOOD MD, Roman Barraza Primary Care Provider Encounter Details Date Type Department Care Team (Late st Contact Info) Description 03/05/2024 Population Health External Data Unspecified Department Allergies Active Allergy Reactions Criticality Noted Date Comments Isosorbide Mononitrate 12/24/2007 Severe headaches Nsaids 05/29/2002 Tramadol Hcl Nausea/vomiting Low 01/09/2008 UGI distress documented as of this encounter (statuses as of 03/06/2024) Medications Medication Sig Dispensed Refills Start Date End Date Status Furosemide 40 MG Oral Tablet (Lasix) Take 1 Tablet by mouth daily AND 0.5 Tablets daily at noon. 135 Tablet 3 03/23/2023 Active Nystatin 750801 UNIT/GM External Powder (Nystop) Apply topically to [...] Tablet 11/02/2023 Active Vitamin D3 250 MCG (38833 UT) Oral Tablet Take by mouth. Active [...] for Pain, Severe. 100 Tablet 03/01/2024 Active documented as of this encounter (statuses as of 03/06/2024) Active Problems Problem Noted Date Diagnosed Date [...] cardiomyopathy 07/18/2018 Coronary artery disease invo lving [place] coronary artery of [place] heart without angina pectoris 05/08/2018 Anxiety state 05/08/2018 ADVANCE DIRECTIVE INFORMATION 03/23/2018 Overview: No, Advance Directive brochure offered , patient declined. Incomplete uterovaginal prolapse 09/29/2017 Cystocele, lateral 09/29/2017 Vaginal atrophy 09/29/2017 Hepatitis C antibody test positive 05/09/2017 Overview: HCV treated; SVR Confirmed 03/05/2018 Controlled substance agreement signed 02/23/2017 Biventricular implantable ca rdioverter-defibrillator in situ 08/07/2013 Last Assessment & Plan: Followed by [facility] cardiology History of colonic polyps 09/04/2012 Overview: 09/01/2012: adenoma, repeat in 3 years ICD-10 update of inactive term Dyslipidemia, goal LDL below 70 05/07/2009 Overview: Per Lipid Taxonomy. OLD MYOCARDIAL INFARCT 12/11/2008 Overview: Modified by Acute [place] Protocol #5. [facility] right coronary bare metal stents S/P angioplasty with stent 09/07/2006 History of tobacco use documented as of this encounter (statuses as of 03/06/2024) Resolved Problems Problem Noted Date Diagnosed Date [...] 08/03/2023 Overview: Per CKD protocol Atherosclerosis of [place] co ronary artery without angina pectoris 07/28/2023 [...] for Patients with Cardiovascular Disease Project #: [id number] PI: Peyton Conn MD [phone] GENOMICS CARDIO RESEARCH OTHER*[id number] 01/15/2007 06/28/2016 Overview: Renamed Per Clinical Trials Billing Project. Study Title: Genomic Markers for Patients with Cardiovascular Disease Project #: [id number] PI: Peyton Conn MD [phone] LV (left ventricular) mural thrombus 10/30/2006 12/28/2017 Tobacco use disorder 09/07/2006 010 Acute inferior myocardial infarction 08/19/2006 12/11/2008 Overview: Modified by Acute [place] Protocol #5. [facility] right coronary bare metal stents EXAMINATION OF PARTICIPANT I N CLINICAL TRIAL - HORIZONS 08/19/2006 09/04/2009 Overview: Renamed Per Clinical Trials Billing Project. [facility] AMI clinical trial 263 Single blind trial comparing heparin and IIB/IIIA with bivalirudin, and Taxus vs bare metal stent. Patient Follow-up for 5 years Magazine Feeder: Trent Verduzco [phone] [facility] Clinical Trial*[id number] 08/19/2006 09/08/2014 Overview: Renamed Per Clinical Trials Billing Project. [facility] AMI clinical trial 263 Single blind trial comparing heparin and IIB/IIIA with bivalirudin, and Taxus vs bare metal stent. Patient Follow-up for 5 years Magazine Feeder: Trent Verduzco [phone] Menopause 08/29/2002 02/23/2017 LOC PRIM [id number] 05/29/200206/23 Dyslipidemia, goal to be determined 05/29/2002 05/07/2009 Overview: Per Lipid Taxonomy. 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 02/23/2017 documented as of this encounter (statuses as of 03/06/2024) Immunizations Name Administration Dates Next Due COVID-19 [...] Description 03/20/2024 10:00 AM EDT [facility] [address] [place] [address] Areli Washburn, RN [address] [place] [address] 03/22/2024 10:30 AM EDT Cardiac Studies Cardiology, [facility] [address] [place] [address] [facility] [address] [place] [address] 03/27/2024 11:20 AM EST Office Visit Pharmacy, [facility] [address] [place] [address] [facility] [address] [place] [address] 06/21/2024 9:30 AM EST Office Visit Cardiology, [facility] [address] [address] Joshua Henson, PAOlivaC [address] [place] [address] 06/25/2024 11:00 AM EST Office Visit Family [facility] [address] [facility] [place] [address] Erica Marsh MD [address] [facility] [place] [address] 07/30/2024 9:00 AM EDT Imaging Vascular Lab, [address] 132 [facility] [place] [address] 07/30/2024 10:00 AM EDT Imaging Vascular Lab, [address] 132 [facility] [place] [address] 07/30/2024 11:00 AM EDT Imaging Vascular Lab, [address] 132 [facility] [place] [address] 08/07/2024 12:50 PM EDT Office Visit Vascular Surgery, [facility] [address] [facility] [place] [address] Albin Marr MD [address] [place] [address] Scheduled Procedures Name Priority Associated Diagnoses Date/Ti [...] 023, 02/21/2022, 07/23/2019 CKD PHOS USE SMARTSET 25168 03/02/202402/19, 10/07/2022, 02/21/2022, Additional history exists GFR 04/27/2024 10/27/2023, 08/20, 07/18/2023, Additional history exists HbA1c 05/31/2024 11/29/2023, 02/19, 01/15/2007, Additional history exists CKD HGB USE SMARTSET 76403 10/26/202410/26, 10/27/2023, 09/07/2023, Additional history exists O2 [...] this encounter Medical Devices Implanted Type Area Lock Up Worker Device Identifier Shelf Expiration Date Model / Serial / Lot Graft Stent Balloon Expandable Endoprosthesis , 7 Mm 39 Mm 6 Fr 135 Cm Cath Heparin - [id number] Implanted:Qty: 1 on 01/12/2024 by Albin Marr MD at OR [facility] Right: Iliac [employer] [id number] 07/18/2026 [id number] / [id number] / [id number] Graft Stent Balloon Expandable Endoprosthesis , 7 Mm 59 Mm 6 Fr 135 Cm Cath Heparin - [id number] Implanted:Qty: 1 on 01/12/2024 by Albin Marr MD at OR [facility] Left: Iliac [employer] [id number] 07/07/2026 [id number] / [id number] / [id number] documented as of this encounter Advance Directives [...] Power of Attor zee? No Care Teams Associate Relationship Specialty Start Date End Date Roman Ennis III, MD [address] [facility] [place] [address] PCP - General Family Medicine 11/22/23 documented as of this encounter
--- OUTSIDE RECORDS SUMMARY | 2024-04-28 22:58 | External Medical Summary | Summary of Care ---
Author Name Unknown Organization [facility] Address [address] [place] [facility] [place] [address] Phone [phone] Care Team Providers Care Pro Shop Attendant Name Role Phone Loli NORWOOD MD, Romna Barraza Primary Care Provider Encounter Details Date Type Department Care Team (Late st Contact Info) Description 02/08/2024 Population Health External Data Unspecified Department Allergies Active Allergy Reactions Criticality Noted Date Comments Isosorbide Mononitrate 12/24/2007 Severe headaches Nsaids 05/29/2002 Tramadol Hcl Nausea/vomiting Low 01/09/2008 UGI distress documented as of this encounter (statuses as of 02/12/2024) Medications Medication Sig Dispensed Refills Start Date End Date Status Furosemide 40 MG Oral Tablet (Lasix) Take 1 Tablet by mouth daily AND 0.5 Tablets daily at noon. 135 Tablet 3 03/23/2023 Active Nystatin 612126 UNIT/GM External Powder (Nystop) Apply topically to [...] Tablet 11/02/2023 Active Vitamin D3 250 MCG (80642 UT) Oral Tablet Take by mouth. Active [...] for Pain, Severe. 100 Tablet 02/08/2024 Active documented as of this encounter (statuses as of 02/12/2024) Active Problems Problem Noted Date Diagnosed Date [...] 08/07/2013 Last Assessment & Plan: Followed by [facility] cardiology History of colonic polyps 09/04/2012 Overview: 09/01/2012: adenoma, repeat in 3 years ICD-10 update of inactive term Dyslipidemia, goal LDL below 70 05/07/2009 Overview: Per Lipid Taxonomy. OLD MYOCARDIAL INFARCT 12/11/2008 Overview: Modified by Acute [place] Protocol #5. [facility] right coronary bare metal stents S/P angioplasty with stent 09/07/2006 History of tobacco use documented as of this encounter (statuses as of 02/12/2024) Resolved Problems Problem Noted Date Diagnosed Date [...] 08/03/2023 Overview: Per CKD protocol Atherosclerosis of [place] co ronary artery [...] for Patients with Cardiovascular Disease Project #: [id number] PI: Peyton Conn MD [phone] GENOMICS CARDIO RESEARCH OTHER*[id number] 01/15/2007 06/28/2016 Overview: Renamed Per Clinical Trials Billing Project. Study Title: Genomic Markers for Patients with Cardiovascular Disease Project #: [id number] PI: Peyton Conn MD [phone] LV (left ventricular) mural thrombus 10/30/2006 12/28/2017 Tobacco use disorder 09/07/2006 010 Acute inferior myocardial infarction 08/19/2006 12/11/2008 Overview: Modified by Acute [place] Protocol #5. [facility] metal stent. Patient Follow-up for 5 years Coverstitch Machine Operator: Trent Verduzco [phone] [facility] Clinical Trial*[id number] 08/19/2006 09/08/2014 Overview: Renamed Per Clinical Trials Billing Project. [facility] [place] AMI clinical trial 263 Single blind trial comparing heparin and IIB/IIIA with bivalirudin, and Taxus vs bare metal stent. Patient Follow-up for 5 years Coverstitch Machine Operator: Trent Verduzco [phone] Menopause 08/29/2002 02/23/2017 LOC PRIM [id number] 05/29/200206/23 Dyslipidemia, goal to be determined 05/29/2002 05/07/2009 Overview: Per Lipid Taxonomy. 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 02/23/2017 documented as of this encounter (statuses as of 02/12/2024) Immunizations Name Administration Dates Next Due COVID-19 [...] 03/07/2024 10:00 AM EDT Office Visit Pharmacy, [facility] [address] [place] [address] [facility] [address] [place] [address] 03/20/2024 10:00 AM EDT [facility] [address] [place] [address] Areli Washburn, RN [address] [place] [address] 03/22/2024 10:30 AM EDT Cardiac Studies Cardiology, [facility] [address] [place] [address] [facility] [address] [place] [address] 06/21/2024 9:30 AM EST Office Visit Cardiology, [facility] [address] [place] [address] Joshua Henson PA-C [address] [place] [address] 06/25/2024 11:00 AM EST Office Visit Family [facility] [address] [facility] [place] [address] Erica Marsh MD [address] [facility] [place] [address] 07/30/2024 9:00 AM EDT Imaging Vascular Lab, [address] 132 [facility] [place] [address] 07/30/2024 10:00 AM EDT Imaging Vascular Lab, [address] [facility] [place] [address] 07/30/2024 11:00 AM EDT Imaging Vascular Lab, [address] [facility] [place] [address] 08/07/2024 12:50 PM EDT Office Visit Vascular Surgery, [facility] [address] [facility] [place] [address] Albin Marr MD [address] [place] [address] Scheduled Procedures Name Priority Associated Diagnoses Date/Ti [...] 023, 02/21/2022, 07/23/2019 CKD PHOS USE SMARTSET 27531 03/02/202402/19, 10/07/2022, 02/21/2022, Additional history exists GFR 04/27/2024 10/27/2023, 08/20, 07/18/2023, Additional history exists HbA1c 05/31/2024 11/29/2023, 02/19, 01/15/2007, Additional history exists CKD HGB USE SMARTSET 86474 10/26/202410/26, 10/27/2023, 09/07/2023, Additional history exists O2 [...] this encounter Medical Devices Implanted Type Area Sales Support Representative Device Identifier Shelf Expiration Date Model / Serial / Lot Graft Stent Balloon Expandable Endoprosthesis , 7 Mm 39 Mm 6 Fr 135 Cm Cath Heparin - [id number] Implanted:Qty: 1 on 01/12/2024 by Albin Marr MD at OR [facility] Right: Iliac [employer] [id number] 07/18/2026 [id number] / [id number] / [id number] Graft Stent Balloon Expandable Endoprosthesis , 7 Mm 59 Mm 6 Fr 135 Cm Cath Heparin - [id number] Implanted:Qty: 1 on 01/12/2024 by Albin Marr MD at OR [facility] Left: Iliac [employer] [id number] 07/07/2026 [id number] / [id number] / [id number] documented as of this encounter Advance Directives [...] Power of Attor zee? No Care Teams Pro Shop Attendant Relationship Specialty Start Date End Date Roman Ennis III, MD [address] [facility] [place], [place] [address] PCP - General Family Medicine 11/22/23 documented as of this encounter
--- OUTSIDE RECORDS SUMMARY | 2024-04-28 22:58 | External Medical Summary | Summary of Care ---
Author Name Unknown Organization [facility] Address [address] [place] [address] Phone [phone] Care Team Providers Care Hair Machine Operator Name Role Phone Loli NORWOOD MD, Roman Barraza Primary Care Provider [phone] Reason for Visit * Reason Comments Follow Up Encounter Details Date Type Department Care Team (Late st Contact Info) Description 02/07/2024 10:30 AM EDT Office Visit Vascular Surgery, [facility] [address] [facility] [place] [address] Albin Marr MD [address] [place] [address] PVD (peripheral vascular disease) with claudication (HCC)*; Cigarette smoker; Dyslipidemia, goal LDL below 70; Infrarenal abdominal aortic aneurysm (AAA) without rupture (HCC); Chronic kidney disease, stage 3b (HCC) Allergies Active Allergy Reactions Criticality Noted Date Comments Isosorbide Mononitrate 12/24/2007 Severe headaches Nsaids 05/29/2002 Tramadol Hcl Nausea/vomiting Low 01/09/2008 UGI distress documented as of this encounter (statuses as of 02/07/2024) Medications Medication Sig Dispensed Refills Start Date End Date Status Furosemide 40 MG Oral Tablet (Lasix) Take 1 Tablet by mouth daily AND 0.5 Tablets daily at noon. 135 Tablet 3 03/23/2023 Active Nystatin 246433 UNIT/GM External Powder (Nystop) Apply topically to [...] Tablet 11/02/2023 Active Vitamin D3 250 MCG (61354 UT) Oral Tablet Take by mouth. Active [...] as of this encounter (statuses as of 02/07/2024) Active Problems Problem Noted Date Diagnosed Date [...] cardiomyopathy 07/18/2018 Coronary artery disease invo lving siletz tribe [...] 08/07/2013 Last Assessment & Plan: Followed by [facility] cardiology History of colonic polyps 09/04/2012 Overview: 09/01/2012: adenoma, repeat in 3 years ICD-10 update of inactive term Dyslipidemia, goal LDL below 70 05/07/2009 Overview: Per Lipid Taxonomy. OLD MYOCARDIAL INFARCT 12/11/2008 Overview: Modified by Acute [place] Protocol #5. [facility] right coronary bare metal stents S/P angioplasty with stent 09/07/2006 History of tobacco use documented as of this encounter (statuses as of 02/07/2024) Resolved Problems Problem Noted Date Diagnosed Date [...] 08/03/2023 Overview: Per CKD protocol Atherosclerosis of siletz tribe co ronary artery without angina pectoris [...] for Patients with Cardiovascular Disease Project #: [id number] PI: Peyton Conn MD [phone] GENOMICS CARDIO RESEARCH OTHER*[id number] 01/15/2007 06/28/2016 Overview: Renamed Per Clinical Trials Billing Project. Study Title: Genomic Markers for Patients with Cardiovascular Disease Project #: [id number] PI: Peyton Conn MD [phone] LV (left ventricular) mural thrombus 10/30/2006 12/28/2017 Tobacco use disorder 09/07/2006 010 Acute inferior myocardial infarction 08/19/2006 12/11/2008 Overview: Modified by Acute [place] Protocol #5. [facility] right coronary bare metal stents EXAMINATION OF PARTICIPANT I N CLINICAL TRIAL - HORIZONS 08/19/2006 09/04/2009 Overview: Renamed Per Clinical Trials Billing Project. [facility] AMI clinical trial 263 Single blind trial comparing heparin and IIB/IIIA with bivalirudin, and Taxus vs bare metal stent. Patient Follow-up for 5 years Hand Icer: Trent Verduzco [phone] [facility] Clinical Trial*[id number] 08/19/2006 09/08/2014 Overview: Renamed Per Clinical Trials Billing Project. [facility] AMI clinical trial 263 Single blind trial comparing heparin and IIB/IIIA with bivalirudin, and Taxus vs bare metal stent. Patient Follow-up for 5 years Hand Icer: Trent Verduzco [phone] Menopause 08/29/2002 02/23/2017 LOC PRIM [id number] 05/29/200206/23 Dyslipidemia, goal to be determined 05/29/2002 05/07/2009 Overview: Per Lipid Taxonomy. 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 02/23/2017 documented as of this encounter (statuses as of 02/07/2024) Immunizations Name Administration Dates Next Due COVID-19 [...] Tobacco: Never Tobacco Cessation:Ready to Q uit: Yes; Counseling Given: No Comments:02/07/2024 6 cigarettes per day, decline pamphlet. Alcohol Use [...] Sign Reading Time Taken Comments Blood Pressure 132/74 02/07/2024 10:12 AM EDT Pulse 68 02/07/2024 10:12 AM EDT Temperature 36.3 C (97.4 F) 02/07/2024 10:12 AM E DT Respiratory Rate - - Oxygen Saturation - - Inhaled Oxygen Concentration - - Weight 66 kg (145 lb 6.4 oz) 02/07/2024 10:12 AM EDT Height - - Body Mass Index 26.81 01/12/2024 10:04 AM EDT documented in this encounter Progress Notes * Forest Zarate PA-C - 02/07/2024 10:30 AM EDT Images from the original note were not included. Radha Tong is a 78 year old female. Patient being seen in consultation at the request of Roman Ennis III, MD Chief Complaint: Post op visit S/P B/L MARCO stents, angioplasty DAVION for LCIA occlusion & stenosis of DAVION/RCIA on 01/12/[address] Marr Since surgery pt has stopped smoking, with help from nicotine patches Her walking now is unlimited, going shopping, doing ADLs around the home. HPI: Patient is a smoker who incidentaly noted to have a 2.8 cm infrarenal aorta with notation of extensive atherosclerotic disease well on CT scan of 03/19/2020 completed at [facility]. USaorta on 06/03/2020 suggesting a 3 cm AAA. Also nooted to have chronic thrombus to R PTV on 11/24/2014 [facility] venous duplex. ABDOMINAL AORTIC ANEURYSM: [...] lateral Vaginal atrophy Coronary artery disease involving siletz tribe coronary artery of siletz tribe heart without angina pectoris Anxiety state History of ischemic cardiomyopathy COPD, group C, by GOLD 2017 classification (HCC) Essential hypertension with goal blood pressure less than 140/90 Carpal tunnel syndrome, bilateral Trigger ring finger of right hand Trigger ring finger of left hand History of 2019 novel coronavirus disease (COVID-19) Abdominal aortic aneurysm (AAA) without rupture (HCC) Type 2 diabetes mellitus with hemoglobin A1c goal of less than 8.0% (HCC) Cigarette smoker Infrarenal abdominal aortic aneurysm (AAA) without rupture (HCC) Chronic combined systolic and diastolic congestive heart failure (HCC) Monoplegia, upper limb, nondominant side S/P CVA (cerebrovascular acc) (HCC) Atrial fibrillation (HCC) Other disorders of phosphorus metabolism Breakthrough seizure (HCC) Food insecurity New onset seizure (HCC) Viral hepatitis C Type 2 diabetes mellitus with stage 3b chronic kidney disease, without long-term current use of insulin (HCC) Chronic kidney disease, stage 3b (HCC) Hypertensive heart and kidney disease 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 and stage 3b chronic kidney disease (HCC) Seizure disorder, complex partial, without intractable epilepsy (HCC) PVD (peripheral vascular disease) with claudication (HCC) DDD (degenerative disc disease), lumbar Retention cyst of nasal cavity Left lower lobe pulmonary nodule Closed nondisplaced fracture of greater trochanter of left femur with routine healing DNR (do not resuscitate) Type 2 diabetes mellitus with peripheral vascular disease (HCC) Past Medical History: Diagnosis Date Acute deep vein thrombosis (DVT) of proximal vein of right lower extremity (HCC) 07/28/2023 History - September 2022 admission Acute inferior myocardial infarction (HCC) 08/19/2006 [facility] right coronary bare metal stents Automatic implantable cardiac defibrillator in situ 11/24/2008 [facility], Dr Bhavani Loya EF 20-25% Chronic obstructive pulmonary disease with (acute) exacerbation (HCC) 07/28/2023 acute COMMON MIGRAINE WITHOUT MENTION OF INTRACTABLE MIGRAINE Dyslipidemia, goal to be determined 05/29/2002 Echocardiogram abnormal 07/01/2011 EF improved slightly to 30-35% Family history of diabetes mellitus 05/29/2002 Hip pain, left 04/28/2023 History of 2019 novel coronavirus disease (COVID-19) 07/29/2020 History of tobacco use stopped 2006 Hyperplastic colon polyp 08/28/2012 Dr. Spencer GILMORE Left bundle branch block 2004 Menopause Osteoarthrosis, unspecified whether generalized or localized, lower leg knee Other specified forms of chronic ischemic heart disease Personal history of colonic polyps 09/04/2012 09/01/2012: adenoma, repeat in 3 years Primary localized osteoarthrosis of shoulder region Right leg DVT (HCC) 01/04/2023 History - September 2022 admission Past Surgical History: Procedure Laterality Date AORTOGRAM ABDOMINAL-TECH ONLY Bilateral 01/12/2024 IMAGING SUPERVISION & INTERPRETATION ABDOMINAL AO performed by Albin Marr MD at OR [facility] CARDIAC CATH-CARDIOLOGY ONLY 08/19/2006 right coronary artery 3 bare metal stents, [facility] CARPAL TUNNEL SURGERY Bilateral 02/20/2020 NEUROPLASTY MEDIAN NERVE AT CARPAL TUNNEL performed by Lore Richey DO at OR [facility] COLONOSCOPY, DIAGNOSTIC (RECTUM) N/A 07/03/2023 hemorrhoids/biopsies show adenomatous polyps/recall 5 years/Colonoscopy/[place] EGD, FLEXIBLE, DIAGNOSTIC N/A 07/03/2023 biopsies normal/EGD/[place] ILIAC ART. REVASC W/ STENT+ANGIOPLASTY Bilateral 01/12/2024 ILIAC ARTERY REVASC W/ STENT+ANGIOPLASTY performed by Albin Marr MD at OR [facility] INSERT PULSE GENERATOR, EXISTING SINGLE LEAD 08/06/2013 NEW ICD GENERATOR ONLY performed by Tylor Loya MD at CARDIAC LABS [facility] INTRAVASC US, NONCORONARY, DX/THERAPEUTIC, 1ST VESSEL 01/12/2024 INTRAVASCULAR ULTRASOUND (NONCORONARY VESSEL) DURING DIAGNOSTIC EVALUATION AND/OR THERAPEUTIC INTERVENTION, INCLUDING RADIOLOGICAL SUPERVISION AND INTERPRETATION; INITIAL NONCORONARY VESSEL performedby Albin Marr MD at OR [facility] IR ARTERIOGRAM EXTREMITY BILATERAL Bilateral 01/12/2024 ANGIOGRAPHY EXTREMITY BILATERAL performed by Albin Marr MD at OR [facility] LAP;W/HYSTERECTOMY 02/04/2020 LEFT VENTRICULAR PACING ELECTRODE, ADD-ON 11/24/2008 CS LEAD PLACEMENT WITH INITIAL DEVICE performed by TYLOR LOYA at CARDIAC LABS [facility] MAMMOGRAM - BILATERAL 07/17/2002 Birad Code 2 PACEMAKER-DEFIBRILLATOR ELECTRODE INSERT, SINGLE 08/09/2013 REPLACE LEAD (1 LEAD) performed by Monik Arnold IV, MD at CARDIAC LABS [facility] PLACE CATHETER IN ARTERY, FIRST Bilateral 01/12/2024 CATHETER PLACEMENT, ABDOMINAL-LOWER EXTREMITY, FIRST ORDER BRANCH performed by Albin Marr MD at OR [facility] REMOVE CATARACT, INSERT LENS PROSTH Right REMOVE GALLBLADDER 1990s Cholecystectomy, [place] TENDON SHEATH INCISION, FINGER Bilateral 02/20/2020 TRIGGER FINGER RELEASE performed by Lore Richey DO at OR [facility] VAGINAL DELIVERY ONLY times 5 Social History [...] Last attempt to quit: 06/28/2023 Years since quittin.6 Smokeless tobacco: Never Tobacco comments: 02/07/2024 6 cigarettes per day, decline pamphlet. Vaping Use [...] Social Determinants of Health Financial Resource Strain: High Risk (12/21/2022) Financial Resource Strain Do you have any trouble paying for your medications, or do you think you might in the future? (Adult - for ages 18 years and over): Yes Does your family have trouble paying for medicine? (Household - for ages 0-17 years): Not on file Food Insecurity: No Food Insecurity (12/21/2022) Food Insecurity Do you need food for this week? (Adult - for ages 18 years and over): No Are you able to get enough food for your family? (Household - for ages 0-17 years): Not on file Does your family need food this week? (Household - for ages 0-17 years): Not on file Do you always have enough food for your family? (Household - for ages 0-17 years): Not on file Recent Concern: Food Insecurity - Food Insecurity Present (12/21/2022) Hunger Vital Sign Worried About Running Out of Food in the Last Year: Often true Ran Out of Food in the Last Year: Often true Transportation Needs: Unmet Transportation Needs (12/21/2022) Transportation Needs Do you have trouble getting a ride to medical visits or work? (Adult - for ages 18 years and over):Sometimes True Does your family have a hard time getting a ride to doctors visits? (Household - for ages 0-17 years): Not on file Has lack of transportation kept you from medical appointments, meetings, work, or from getting things needed for daily living? Check all that apply. (Adult - for ages 18 years and over): Not on file Do you (or your family) have trouble finding or paying for a ride (transportation)? (Household - for ages 0-17 years): Not on file Social Connections: Unknown (02/07/2024) Social Connections How often do you feel lonely or isolated from those around you? (Adult - for ages 18 years and over): Not on file Housing Stability: Low Risk (12/21/2022) Housing Stability Do you currently live in a skilled nursing or have no steady place to sleep at night? (Adult - for ages 18 years and over): No Do you think you are at risk of becoming homeless? (Adult - for ages 18 years and over): No Does your family worry about paying for your home or becoming homeless? (Household - for ages 0-17 years): Not on file Are you homeless or worried that you might be in the future? (Adult - for ages 18 years and over): Not on file Are you (or your family) homeless or worried that you might be in the future? (Household - for ages0-17 years): Not on file COMPLETE REVIEW OF SYSTEMS: Cardiovascular: Reports CAD with h/o TN s/p PCI/Stenting. ICD placement as well. Currently [...] Examination: nonfocal. Pulses: Fem: R 3+, L 2 AT/PT: R 2+, L 2 DIAGNOSTIC STUDIES: 01/31/24 HUBERT: 0.94/0.82 01/31/24 BLE Art Duplex: REIA 107, RCFA 79, RDFA 63, RSFA 110/81/86/117, R Pop 78. DAVION 408, LCFA 84, LDFA 40, LSFA 69/75/59/74, L Pop 46 01/31/24 Abd Ao Dupelx: Mid Ao 3.2 cm, Prox/Distal Ao and CIAs UI due to bowel gas The above diagnostic images were directly visualized and independently interpreted by me on 02/07/2024 with results as above 09/28/23 CTA w/ runoff: 3.3 cm AAA with thrombus. Occlusion of the left common iliac artery. Calcified non-obstructive plaque of RCIA. Moderate atheromatous disease results in approximately 50% luminalnarrowing of the P2 segment of the left popliteal artery. Two vessel runoff of the bilateral lower extremities. LCFA has calcified plaque and small, yet patent 08/23/23 HUBERT: 1.2/0.62, triphasic on R, biphasic on L, flat toe PPGs 08/01/23 Abd Aortic Duplex: 3.3 cm AAA, RCIA 1.1 cm, LCIA 0.8 cm 06/30/22 Abd Aortic Duplex: 3.0 cm AAA 06/30/22 BLE Art Duplex: No fem or pop aneurysms 06/30/22 Carotid Duplex: MAXINE 75/25, LICA 69/23, ante verts 06/22/21; Location of Study: [facility]; Modality: duplex; AAA measures 3.1 cm in greatest transverse dimension. 06/03/20; Location of Study: [facility]; Modality: duplex; AAA measures 3.0 cm in greatest transversedimension. 03/19/20 CT ([place]): 2.8 cm infrarenal aorta Echocardiogram report reviewed dated 06/29/23 at [facility]: Ejection fraction 60 to 65%. Abnormal septal and apical wall motion abnormality reflects pacemaker activation. Base inferior wall is hypokinetic. Aortic valve sclerosis without significant aortic valvular stenosis. Mild AI. Trace MR. Mild TR. Estimated systolic pulmonary pressure of 36 mmHg. Grade 2 diastolic dysfunction. IMPRESSIONS: S/P B/L MARCO stents, angioplasty DAVION for LCIA occlusion & stenosis of DAVION/RCIA on 01/12/[address] Marr Greatly improved LLE HUBERT post op, yet ^ velocity of DAVION noted Pre op claudication completely resolved. Patient is content with her post op recovery and outcome Pre operatively, pt w/ moderate LLE PAD, with mixed etiology claudication, neurogenic and vascular,more so former. With that said, lack of LEFT fem pulse was a concern. CTA w/ runoff revealed LCIA occlusion No rest pain or ulcerations Asymptomatic 3.3 cm AAA. No fem or pop aneurysms by 2022 duplex Asymptomatic less than 50% B/L carotid stenosis H/O superficial lower extremity thrombophlebitis in 08/09 for which she was placed on a course of Eliquis to prevent further venous thromboembolic disease. ICM, s/p inferior posterior TN 08/2006, s/p PCI to RCA and 4 BMS 12/2006 Apical thrombus, on Eliquis (not evident on 2023 TTe) LBBB BiV ICD 11/24/2008 gent change 08/06/2013 with revision following day 07/10/2013. Seen by [facility] Cardiology 12/14/23, cleared for surgery 1. Pre-operative cardiovascular examination -Doing well from a cardiac perspective. No change in her functional capacity outside of recent orthopedic concerns. -per Ben Criteria, patient was counseled that she would be placed at a low- intermediate risk for any adverse perioperative cardiovascular events associated with vascular intervention surgery. Patientis on a good medication regimen and no other cardiac testing or interventions would further lower that risk. Patient states he understands and is accepting of that risk and wishes to proceed with surgery. HTN Dyslipidemia. Recently reformed smoker, was about 6 cigarettes per day COPD. Prediabetes. CKD III Hepatitis C Lumbar DDD, Chronic back pain with sciatica on left side PLAN: The patient was counseled regarding the pathophysiology and natural history of peripheral vascular disease, as well as the interventional and noninterventional therapeutic options. The patient was counseled regarding the pathophysiology and natural history of abdominal aortic aneurysms, as well as the signs of rupture and the need to initiate emergency medical attention in thatsituation. Asymptomatic 3.3 cm AAA below threshold for intervention, which is ~ 5.0 cms for females Continue with routine monitoring, per protocol Congratulated pt on her ability to stop smoking, continue nicotine patch Continue Plavix 75 mg for platelet inhibition, stent patency Continue daily lipitor 40 mg for dyslipidemia On Eliquis for H/O apical LV thrombus RTC 6 months with HUBERT, BLE Art Duplex, Abd Aor Duplex 1 wk prior The patient was seen and examined with Albin Marr MD. SHERLYN Leung, PA-C Section of Vascular and Endovascular Surgery [address] [address] I have reviewed the advanced practitioner's documentation on the date of service referenced in note, and I agree with, and take responsibility for the plan of care. 78 year old woman with history of lifestyle limiting claudication and left leg numbness now s/p kissing iliac stents Her symptoms are resolved, she is very happy Has elevated velocities external iliac on duplex (angioplasty during initial case) but markedly improved ABIs Based on my prior imaging suspect would need stent down to inguinal ligament to make these velocities look better on duplex For now, will continue to monitor Repeat duplex 6 months Albin Marr MD Section of Vascular and Endovascular Surgery [place], [place] [id number] [phone] documented in this encounter Nursing Notes * Elsie Connor CMA - 02/07/2024 10:14 AM EDT Reviewed the option of transferring scripts to [facility] pharmacy with patient and / or family. Patient stated no change in medications. Elsie Connor CMA documented in this encounter Plan of Treatment Upcoming Encounters Date Type Department Care Team (Late st Contact Info) Description 03/07/2024 10:00 AM EDT Office Visit Pharmacy, [facility] [address] [place] [phone] [facility] [address] [place] [address] 03/20/2024 10:00 AM EDT Home Visit [facility] at [facility] [address] [place] [phone] Areli Washburn, RN [address] [place] [address] 03/22/2024 10:30 AM EDT Cardiac Studies Cardiology, [facility] [address] [place] [phone] Rossy Parham [facility] [address] [place] [id number] 06/21/2024 9:30 AM EST Office Visit Cardiology, [facility] [address] [place] [address] Joshua Henson PAOlivaC [address] [place] [id number] 06/25/2024 11:00 AM EST Office Visit [facility] [address] [facility] [place] [address] Erica Marsh MD [address] [facility] [place] [address] 07/30/2024 9:00 AM EDT Imaging Vascular Lab, [facility] 2nd [facility] [address] [facility] [place] [address] 07/30/2024 10:00 AM EDT Imaging Vascular Lab, [address] [facility] [place] [address] 07/30/2024 11:00 AM EDT Imaging Vascular Lab, [address] [place] [address] 08/07/2024 12:50 PM EDT Office Visit Vascular Surgery, [facility] [address] [facility] [place] [address] Albin Marr MD [address] [place] [address] Scheduled Orders Name Type Priority Associated Diagnoses Orde r Schedule VASC AORTIC DUPLEX EVAL-COMPLETE Medical Imaging Routine PVD (peripheral vascular disease) with claudication (HCC) Cigarette smoker Dyslipidemia, goal LDL below 70 Infrarenal abdominal aortic aneurysm (AAA) without rupture (HCC) Chronic kidney disease, stage 3b (HCC) Ordered: 02/07/2024 VASC ANKLE BRACHIAL INDICES WITHOUT PPG (PAD) Medical Imaging Routine PVD (peripheral vascular disease) with claudication (HCC) Cigarette smoker Dyslipidemia, goal LDL below 70 Infrarenal abdominal aortic aneurysm (AAA) without rupture (HCC) Chronic kidney disease, stage 3b (HCC) Ordered: 02/07/2024 VASC [place] ART ELIANA BILAT LE Medical Imaging Routine PVD (peripheral vascular disease) with claudication (HCC) Cigarette smoker Dyslipidemia, goal LDL below 70 Infrarenal abdominal aortic aneurysm (AAA) without rupture (HCC) Chronic kidney disease, stage 3b (HCC) Ordered: 02/07/2024 Scheduled Procedures Name Priority Associated Diagnoses Date/Ti [...] 023, 02/21/2022, 07/23/2019 CKD PHOS USE SMARTSET 00932 03/02/202402/19, 10/07/2022, 02/21/2022, Additional history exists GFR 04/27/2024 10/27/2023, 08/20, 07/18/2023, Additional history exists HbA1c 05/31/2024 11/29/2023, 02/19, 01/15/2007, Additional history exists CKD HGB USE SMARTSET 57610 10/26/202410/26, 10/27/2023, 09/07/2023, Additional history exists O2 [...] this encounter Medical Devices Implanted Type Area Knitting Machine Operator Helper Device Identifier Shelf Expiration Date Model / Serial / Lot Graft Stent Balloon Expandable Endoprosthesis , 7 Mm 39 Mm 6 Fr 135 Cm Cath Heparin - [id number] Implanted:Qty: 1 on 01/12/2024 by Albin Marr MD at OR [facility] Right: Iliac [employer] [id number] 07/18/2026 [id number] / [id number] / [id number] Graft Stent Balloon Expandable Endoprosthesis , 7 Mm 59 Mm 6 Fr 135 Cm Cath Heparin - [id number] Implanted:Qty: 1 on 01/12/2024 by Albin Marr MD at OR [facility] Left: Iliac [employer] [id number] 07/07/2026 [id number] / [id number] / [id number] documented as of this encounter Visit Diagnoses Diagnosis PVD (peripheral vascular disease) with claudication (HCC)- Primary Peripheral vascular disease, unspecified Cigarette smoker Tobacco use disorder Dyslipidemia, goal LDL below 70 Other and unspecified hyperlipidemia Infrarenal abdominal aortic aneurysm (AAA) without rupture (HCC) Chronic kidney disease, stage 3b (HCC) documented in this encounter Advance Directives * [...] Power of Attor zee? No Care Teams Hair Machine Operator Relationship Specialty Start Date End Date Roman Ennis III, MD [address] [facility] [place] [address] PCP - General Family Medicine 11/22/23 documented as of this encounter
--- OUTSIDE RECORDS SUMMARY | 2024-04-28 22:58 | External Medical Summary | Summary of Care ---
Author Name Unknown Organization [facility] Address [address] [place] [address] Phone [phone] Care Team Providers Care Fourdrinier Machine Tender Name Role Phone Loli NORWOOD MD, Roman Barraza Primary Care Provider [phone] Reason for Visit * Reason Onset Date Comments FYI 11/06/2023 Encounter Details Date Type Department Care Team (Late st Contact Info) Description 11/06/2023 Telephone Family Practice [facility] [place] [address] [facility] [place] [address] Roman Ennis III, MD [address] [facility] [facility] [place] [address] FYI Allergies Active Allergy Reactions Criticality Noted Date Comments Isosorbide Mononitrate 12/24/2007 Severe headaches Nsaids 05/29/2002 Tramadol Hcl Nausea/vomiting Low 01/09/2008 UGI distress documented as of this encounter (statuses as of 02/05/2024) Medications Medication Sig Dispensed Refills Start Date End Date Status Furosemide 40 MG Oral Tablet (Lasix) Take 1 Tablet by mouth daily AND 0.5 Tablets daily at noon. 135 Tablet 3 3 Active Nystatin 448021 UNIT/GM External Powder (Nystop) Apply topically to [...] Tablet before bedtime. 60 Tablet 4 Active Metoprolol Succinate ER 50 MG Oral Tablet Extended Release 24 Hour (toPROL XL) Take 1 Tablet by mouth in the morning and 1 Tablet before bedtime. 30 Tablet 4 Active Nitroglycerin 0.4 MG Sublingual [...] mouth at bedtime. 15 Tablet 4 Active oxyCODONE HCl 5 MG Oral Tablet (Oxy IR)Indications:Lead Etl Developer fernando pain syndrome Take 1 Tablet by mouth every 6 hours as needed for Pain, Moderate (pain). 60 Tablet 4 11/08/19 24 Discontinued oxyCODONE HCl 5 MG Oral Tablet (Oxy IR) Take 2 Tablets by mouth every 6 hours as needed for Pain, Severe. 20 Tablet 4 11/08/19 24 Discontinued Atorvastatin Calcium 20 MG Oral Tablet (Lipitor) Take 1 Tablet by mouth every night at bedtime. 30 Tablet 4 12/20/19 24 Discontinued Gabapentin 300 MG Oral Capsule (Neurontin)Indicati ons:Hip pain, left Take one tablet by mouth in the morning and at noon and two tablets by mouth before bed. 120 Capsule 4 12/07/19 24 Discontinued Lisinopril 10 MG Oral Tablet (Prinivil) Take 1 Tablet by mouth in the morning. 30 Tablet 4 11/29/19 24 Discontinued documented as of this encounter (statuses as of 02/05/2024) Active Problems Problem Noted Date Diagnosed Date [...] cardiomyopathy 07/18/2018 Coronary artery disease invo lving hopi coronary [...] 08/07/2013 Last Assessment & Plan: Followed by [facility] [place] History of colonic polyps 09/04/2012 Overview: 09/01/2012: adenoma, repeat in 3 years ICD-10 update of inactive term Dyslipidemia, goal LDL below 70 05/07/2009 Overview: Per Lipid Taxonomy. OLD MYOCARDIAL INFARCT 12/11/2008 Overview: Modified by Acute [place] Protocol #5. [facility] right coronary bare metal stents S/P angioplasty with stent 09/07/2006 History of tobacco use documented as of this encounter (statuses as of 02/05/2024) Resolved Problems Problem Noted Date Diagnosed Date [...] 08/03/2023 Overview: Per CKD protocol Atherosclerosis of hopi co ronary artery without angina pectoris 07/28/2023 [...] for Patients with Cardiovascular Disease Project #: [id number] PI: Peyton Conn MD [phone] GENOMICS CARDIO RESEARCH OTHER*[id number] 01/15/2007 06/28/2016 Overview: Renamed Per Clinical Trials Billing Project. Study Title: Genomic Markers for Patients with Cardiovascular Disease Project #: [id number] PI: Peyton Conn MD [phone] LV (left ventricular) mural thrombus 10/30/2006 12/28/2017 Tobacco use disorder 09/07/2006 010 Acute inferior myocardial infarction 08/19/2006 12/11/2008 Overview: Modified by Acute [place] Protocol #5. [facility] right coronary bare metal stents EXAMINATION OF PARTICIPANT I N CLINICAL TRIAL - HORIZONS 08/19/2006 09/04/2009 Overview: Renamed Per Clinical Trials Billing Project. [facility] AMI clinical trial 263 Single blind trial comparing heparin and IIB/IIIA with bivalirudin, and Taxus vs bare metal stent. Patient Follow-up for 5 years Lead Machinist: Trent Verduzco [phone] [facility] Clinical Trial*[id number] 08/19/2006 09/08/2014 Overview: Renamed Per Clinical Trials Billing Project. [facility] AMI clinical trial 263 Single blind trial comparing heparin and IIB/IIIA with bivalirudin, and Taxus vs bare metal stent. Patient Follow-up for 5 years Lead Machinist: Trent Verduzco [phone] Menopause 08/29/2002 02/23/2017 LOC PRIM [id number] 05/29/200206/23 Dyslipidemia, goal to be determined 05/29/2002 05/07/2009 Overview: Per Lipid Taxonomy. 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 (Household - for ages [...] encounter Miscellaneous Notes * Telephone Encounter - Soham Cosby DO - 11/08/2023 4:32 PM EDT Mustapha Justice - It looks like you're set up for a tough visit here with her transition to your office. It's probably the right time to stop her oxycodone though before you get committed to it skilled nursing. Itook it off of her med list. She may not be happy but it sure sounds like she is taking too much ofit. * Telephone Encounter - Candi Trinh, EDITA - 11/08/2023 10:40 AM EDT HH Admission/Start of Care Admission/Start of Care: will RN, Calling from: Joel Patient was Admitted to: [facility], for: left femur fx from 10/17 to 10/24/23 Then 10/23 to [facility]. Discharged 11/04/23 Referral ordered by: Carisa Crawford Referral received for: Mcfp, PT, and OT Planned start of care date:Yes, Date 11/05/23 Start of care completed on: 11/05/23 Report/Concerns of:Fall Symptoms: none Vitals: T 97.8 P 79 RR 18 BP 100/62 SP O2 89 to 90 - Hx COPD Lung sounds diminished Weight 156 Blood sugar does not check her sugars Narrative: When Will got there on 11/05/23, patient was lying half on chair and half on the concrete floor in the garage. Her legs were numb. Will picked her up. Eyes pinpoint. Got her situated,opened the patient. Left. Patient told her not to call her daughter. Will called the daughter. Daughter says that her mother takes too many oxycodone at one time. She has a lot of pain. She was very sleepy when Will left. Called the daughter and she was already at the house. Informed her of the fall. Daughter was not surprised. Said she falls all the time. Patient called the Home Health nurse, Will back and was very angry that her daughter was informed of the fall. Informed patient she signed a HIPAA form allowing her to speak to her daughter and son in law. Patient hung up. Patient has COPD. She is supposed to wear oxygen at 2 lpm as needed. Reported to the nurse she never wears it. Will was not concerned her sat was 89 to 90. Patient was in no distress. She was at her baseline. Will reports She has pacemaker wires that are loose and she was scheduled to have angioplasty ofleft leg for an occlusion. Both of these had been delayed because of for her femur fracture. left ankle 25.5 cm left leg pain 8 out of 10 Called [facility] office. Spoke to Mili. Message sent to Dr. Ennis. She will make covering provider aware. Called patients daughter in law Nadiya to make a hospital discharge appointment. Requesting to switch to [place] since Dr. Ennis retiring and it is closer for them. Placed with Reshma Anton on 11/10/23 @ 11:20 a.m. New appt. On 12/26/23 @ 9:45 a.m. in [place] to get established with [facility] Next PT visit(s) on 11/08/23 They will call with any updates or additional concerns from the upcoming HH visit. Last Office Visit: 07/28/2023 Has patient been scheduled or seen in the office for a follow up visit: Yes- on11/10/23 Advised that orders will be signed by Dr. Ennis and to fax to the office for signature. Call back Will with advice or orders at [phone] Please fax orders to [phone] * Telephone Encounter - Mercedes Rush OSA - 11/06/2023 3:10 PM EDT Will needs to go over the plan of care. Please advise. documented in this encounter Plan of Treatment Upcoming Encounters Date Type Department Care Team (Late st Contact Info) Description 02/07/2024 10:30 AM EDT Office Visit Vascular Surgery, [facility] [address] [place] [address] Albin Marr MD [address] [place] [address] 03/07/2024 10:00 AM EDT Office Visit Pharmacy, [facility] [address] [place] [address] [facility] [address] [place] [address] 03/20/2024 10:00 AM EDT Home Visit [facility] at [facility] [address] [place] [address] Areli Washburn, RN [address] [place] [address] 03/22/2024 10:30 AM EDT Cardiac Studies Cardiology, [facility] [address] [facility] [place] [address] [facility] [address] [place] [address] 06/21/2024 9:30 AM EST Office Visit Cardiology, [facility] [address] [facility] [place] [address] Joshua Henson PA-C [address] [place] [address] 06/25/2024 11:00 AM EST Office Visit Family Practice [facility] [address] [facility] [place] [address] Erica Marsh MD [address] [facility] [place] [address] Scheduled Procedures Name Priority Associated Diagnoses Date/Ti me COLONOSCOPY FLEXIBLE PROXIMA L DIAGNOSTIC Recall History of colonic polyps Health Maintenance Due Date Last Done Comments DISCUSS TOBACCO CESSATION (REFER TO SMARTSET #8070) 1945 Alpha-1 Antitrypsin 1965 Diabetic Foot Exam 1965 Adult Wellness Visit 2013 DXA Scan 09/04/2016 09/04/2013, 09/04/2013 *ADVANCE DIRECTIVE NOT ON FILE 06/09/2019 Depression Screening 06/02/2023 06/02/2022 Diabetic Eye Exam 07/21/2023 07/20/2022 COVID-19 Vaccine ( season) 2024 11/12/2020, 10/01/2020 Influenza Vaccine (FLU shot) (#1) 2024 02/27/2023, 02/27/2023, 02/21/2022, Additional history exists Albumin/Creatinine Ratio 03/02/2024 023, 02/21/2022, 07/23/2019 CKD PHOS USE SMARTSET 10836 03/02/202402/19, 10/07/2022, 02/21/2022, Additional history exists GFR 04/27/2024 10/27/2023, 08/20, 07/18/2023, Additional history exists HbA1c 05/31/2024 11/29/2023, 02/19, 01/15/2007, Additional history exists CKD HGB USE SMARTSET 32677 10/26/202410/26, 10/27/2023, 09/07/2023, Additional history exists O2 [...] this encounter Medical Devices Implanted Type Area Director Ehs Device Identifier Shelf Expiration Date Model / Serial / Lot Graft Stent Balloon Expandable Endoprosthesis , 7 Mm 39 Mm 6 Fr 135 Cm Cath Heparin - [id number] Implanted:Qty: 1 on 01/12/2024 by Albin Marr MD at [place] [facility] Right: Iliac [employer] [id number] 07/18/2026 [id number] / [id number] / [id number] Graft Stent Balloon Expandable Endoprosthesis , 7 Mm 59 Mm 6 Fr 135 Cm Cath Heparin - [id number] Implanted:Qty: 1 on 01/12/2024 by Albin Marr MD at [place] [facility] Left: Iliac [employer] [id number] 07/07/2026 [id number] / [id number] / [id number] documented as of this encounter Advance Directives [...] Power of Attor zee? No Care Teams Fourdrinier Machine Tender Relationship Specialty Start Date End Date Roman Ennis III, MD [address] [place] [address] PCP - General Family Medicine 11/22/23 documented as of this encounter
--- OUTSIDE RECORDS SUMMARY | 2024-04-28 22:58 | External Medical Summary | Summary of Care ---
Author Name Unknown Organization [facility] Address [address] , [place] Care Team Providers Care Legal Examiner Name Role Phone Loli NORWOOD MD, Roman Barraza Primary Care Provider [phone] Reason for Visit * Reason Onset Date Comments Other 11/21/2023 Encounter Details Date Type Department Care Team (Late st Contact Info) Description 11/21/2023 Telephone Pharmacy, [facility] [address] [facility] [place] [phone] [facility] [address] [facility] [place] [address] Other Allergies Active Allergy Reactions Criticality Noted Date Comments Isosorbide Mononitrate 12/24/2007 Severe headaches Nsaids 05/29/2002 Tramadol Hcl Nausea/vomiting Low 01/09/2008 UGI distress documented as of this encounter (statuses as of 02/19/2024) Medications Medication Sig Dispensed Refills Start Date End Date Status Furosemide 40 MG Oral Tablet (Lasix) Take 1 Tablet by mouth daily AND 0.5 Tablets daily at noon. 135 Tablet 3 03/23/2023 Active Nystatin 520940 UNIT/GM External Powder (Nystop) Apply topically to [...] Tablet 11/02/2023 Active Vitamin D3 250 MCG (59116 UT) Oral Tablet Take by mouth. Active documented as of this encounter (statuses as of 02/19/2024) Active Problems Problem Noted Date Diagnosed Date [...] Assessment & Plan: Followed [place] [facility] [place] History of colonic polyps 09/04/2012 Overview: 09/01/2012: adenoma, repeat in 3 years ICD-10 update of inactive term Dyslipidemia, goal LDL below 70 05/07/2009 Overview: Per Lipid Taxonomy. OLD MYOCARDIAL INFARCT 12/11/2008 Overview: Modified by Acute [place] Protocol #5. [facility] right coronary bare metal stents S/P angioplasty with stent 09/07/2006 History of tobacco use documented as of this encounter (statuses as of 02/19/2024) Resolved Problems Problem Noted Date Diagnosed Date [...] for Patients with Cardiovascular Disease Project #: [id number] PI: Peyton Conn MD [phone] GENOMICS CARDIO RESEARCH OTHER*[id number] 01/15/2007 06/28/2016 Overview: Renamed Per Clinical Trials Billing Project. Study Title: Genomic Markers for Patients with Cardiovascular Disease Project #: [id number] PI: Peyton Conn MD [phone] LV (left ventricular) mural thrombus 10/30/2006 12/28/2017 Tobacco use disorder 09/07/2006 010 Acute inferior myocardial infarction 08/19/2006 12/11/2008 Overview: Modified by Acute [place] Protocol #5. [facility] right coronary bare metal stents EXAMINATION OF PARTICIPANT I N CLINICAL TRIAL - HORIZONS 08/19/2006 09/04/2009 Overview: Renamed Per Clinical Trials Billing Project. [facility] AMI clinical trial 263 Single blind trial comparing heparin and IIB/IIIA with bivalirudin, and Taxus vs bare metal stent. Patient Follow-up for 5 years Child Day Care Provider: Trent Verduzco [phone] [facility] Clinical Trial*[id number] 08/19/2006 09/08/2014 Overview: Renamed Per Clinical Trials Billing Project. [facility] AMI clinical trial 263 Single blind trial comparing heparin and IIB/IIIA with bivalirudin, and Taxus vs bare metal stent. Patient Follow-up for 5 years Child Day Care Provider: Trent Verduzco [phone] Menopause 08/29/2002 02/23/2017 LOC PRIM [id number] 05/29/200206/23 Dyslipidemia, goal to be determined 05/29/2002 05/07/2009 Overview: Per Lipid Taxonomy. 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 02/23/2017 documented as of this encounter (statuses as of 02/19/2024) Immunizations Name Administration Dates Next Due COVID-19 [...] encounter Miscellaneous Notes * Telephone Encounter - Francisco Kearns CPhT - 11/21/2023 9:17 AM EDT Caller's name: Radha Brad call back number(OFFICE NUMBER FOR ): [phone] Reason for call: Pt requesting to speak to pain mgmt about RX Oxycodone Thank you, Francisco Kearns CPhT Tool Marker [facility] 11/21/2023,9:17 AM documented in this encounter Plan of Treatment Upcoming Encounters Date Type Department Care Team (Late st Contact Info) Description 03/07/2024 10:00 AM EDT Office Visit Pharmacy, [facility] [address] [place] [address] [facility] [address] [place] [address] 03/20/2024 10:00 AM EDT Home Visit Elaine at [facility] [address] [place] [address] Areli Washburn, RN [address] [place] [address] 03/22/2024 10:30 AM EDT Cardiac Studies Cardiology, [facility] [address] [place] [address] [facility] [address] [place] [address] 06/21/2024 9:30 AM EST Office Visit Cardiology, [facility] [address] [place] [address] Joshua Henson PA-C [address] [place] [address] 06/25/2024 11:00 AM EST Office Visit Family Practice [facility] [address] [place] [address] Erica Marsh MD [address] [facility] [place] [address] 07/30/2024 9:00 AM EDT Imaging Vascular Lab, [address] [facility] [place] [address] 07/30/2024 10:00 AM EDT Imaging Vascular Lab, [address] [facility] [place] [address] 07/30/2024 11:00 AM EDT Imaging Vascular Lab, [address] [facility] [place] [address] 08/07/2024 12:50 PM EDT Office Visit Vascular Surgery, [facility] [address] [facility] [place] [address] [facility] [address] [facility] [id number] Scheduled Procedures Name Priority Associated Diagnoses Date/Ti me COLONOSCOPY FLEXIBLE PROXIMA L DIAGNOSTIC Recall History of colonic polyps Health Maintenance Due Date Last Done Comments DISCUSS TOBACCO CESSATION (REFER TO SMARTSET #9878) 1945 Alpha-1 Antitrypsin 1965 Diabetic Foot Exam 1965 Adult Wellness Visit 2013 DXA Scan 09/04/2016 09/04/2013, 09/04/2013 *ADVANCE DIRECTIVE NOT ON FILE 06/09/2019 Depression Screening 06/02/2023 06/02/2022 Diabetic Eye Exam 07/21/2023 07/20/2022 COVID-19 Vaccine ( season) 2024 11/12/2020, 10/01/2020 Influenza Vaccine (FLU shot) (#1) 2024 02/27/2023, 02/27/2023, 02/21/2022, Additional history exists Albumin/Creatinine Ratio 03/02/2024 023, 02/21/2022, 07/23/2019 CKD PHOS USE SMARTSET 80999 03/02/202402/19, 10/07/2022, 02/21/2022, Additional history exists GFR 04/27/2024 10/27/2023, 08/20, 07/18/2023, Additional history exists HbA1c 05/31/2024 11/29/2023, 02/19, 01/15/2007, Additional history exists CKD HGB USE SMARTSET 40250 10/26/202410/26, 10/27/2023, 09/07/2023, Additional history exists O2 [...] this encounter Medical Devices Implanted Type Area Strategic Partner Development Manager Device Identifier Shelf Expiration Date Model / Serial / Lot Graft Stent Balloon Expandable Endoprosthesis , 7 Mm 39 Mm 6 Fr 135 Cm Cath Heparin - [id number] Implanted:Qty: 1 on 01/12/2024 by Albin Marr MD [place] [facility] Right: Iliac [employer] [id number] 07/18/2026 [id number] / [id number] / [id number] Graft Stent Balloon Expandable Endoprosthesis , 7 Mm 59 Mm 6 Fr 135 Cm Cath Heparin - [id number] Implanted:Qty: 1 on 01/12/2024 by Albin Marr MD at [place] [facility] Left: Iliac [employer] [id number] 07/07/2026 [id number] / [id number] / [id number] documented as of this encounter Advance Directives [...] Power of Attor zee? No Care Teams Legal Examiner Relationship Specialty Start Date End Date Roman Ennis III, MD [address] [place] [address] PCP - General Family Medicine 11/22/23 documented as of this encounter
--- OUTSIDE RECORDS SUMMARY | 2024-04-28 22:59 | External Medical Summary | Summary of Care ---
Author Name Unknown Organization [facility] Address [address] [facility] [address] Phone [phone] Care Team Providers Care Die Cutting Machine Operator Name Role Phone Loli NORWOOD MD, Roman Barraza Primary Care Provider [phone] Reason for Visit * Reason Comments Re-Check Encounter Details Date Type Department Care Team (Late st Contact Info) Description 12/22/2023 1:00 PM EDT Office Visit Family Practice [facility] [place] [address] [facility] [place] [address] Erica Marsh MD 200 [facility] [place] [address] Chronic pain syndrome*; DDD (degenerative disc disease), lumbar; Closed nondisplaced fracture of greater trochanter of left femur with routine healing; PVD (peripheral vascular disease) with claudication (HCC) Allergies Active Allergy Reactions Criticality Noted Date Comments Isosorbide Mononitrate 12/24/2007 Severe headaches Nsaids 05/29/2002 Tramadol Hcl Nausea/vomiting Low 01/09/2008 UGI distress documented as of this encounter (statuses as of 01/08/2024) Medications Medication Sig Dispensed Refills Start Date End Date Status Furosemide 40 MG Oral Tablet (Lasix) Take 1 Tablet by mouth daily AND 0.5 Tablets daily at noon. 135 Tablet 3 03/23/2023 Active Nystatin 561009 UNIT/GM External Powder (Nystop) Apply topically to [...] Tablet 11/02/2023 Active Vitamin D3 250 MCG (17680 UT) Oral Tablet Take by mouth. Active Gabapentin 300 MG Oral Capsule (Neurontin) Take 1 Capsule by mouth daily AND 2 Capsules at bedtime. 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 100 Tablet 11/30/2023 Discontinue d(Refill) documented as of this encounter (statuses as of 01/08/2024) Active Problems Problem Noted Date Diagnosed Date [...] cardiomyopathy 07/18/2018 Coronary artery disease invo lving ugashik coronary artery of ugashik heart without angina pectoris 05/08/2018 Anxiety state [...] Overview: Modified by Acute [place] Protocol #5. [facility] right coronary bare metal stents S/P angioplasty with stent 09/07/2006 History of tobacco use documented as of this encounter (statuses as of 01/08/2024) Resolved Problems Problem Noted Date Diagnosed Date [...] 08/03/2023 Overview: Per CKD protocol Atherosclerosis of ugashik co ronary artery without angina pectoris 07/28/2023 [...] for Patients with Cardiovascular Disease Project #: [id number] PI: Peyton Conn MD [phone] GENOMICS CARDIO RESEARCH OTHER*[id number] 01/15/2007 06/28/2016 Overview: Renamed Per Clinical Trials Billing Project. Study Title: Genomic Markers for Patients with Cardiovascular Disease Project #: [id number] PI: Peyton Conn MD [phone] LV (left ventricular) mural thrombus 10/30/2006 12/28/2017 Tobacco use disorder 09/07/2006 010 Acute inferior myocardial infarction 08/19/2006 12/11/2008 Overview: Modified by Acute [place] Protocol #5. [facility] right coronary bare metal stents EXAMINATION OF PARTICIPANT I N CLINICAL TRIAL - HORIZONS 08/19/2006 09/04/2009 Overview: Renamed Per Clinical Trials Billing Project. [facility] AMI clinical trial 263 Single blind trial comparing heparin and IIB/IIIA with bivalirudin, and Taxus vs bare metal stent. Patient Follow-up for 5 years Tile Molder Hand: Trent Verduzco [phone] [facility] Clinical Trial*[id number] 08/19/2006 09/08/2014 Overview: Renamed Per Clinical Trials Billing Project. [facility] AMI clinical trial 263 Single blind trial comparing heparin and IIB/IIIA with bivalirudin, and Taxus vs bare metal stent. Patient Follow-up for 5 years Tile Molder Hand: Trent Verduzco [phone] Menopause 08/29/2002 02/23/2017 LOC PRIM [id number] 05/29/200206/23 Dyslipidemia, goal to be determined 05/29/2002 05/07/2009 Overview: Per Lipid Taxonomy. 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 02/23/2017 documented as of this encounter (statuses as of 01/08/2024) Immunizations Name Administration Dates Next Due COVID-19 [...] Sign Reading Time Taken Comments Blood Pressure 140/80 12/22/2023 1:01 PM EDT Pulse 61 12/22/2023 1:01 PM EDT Temperature 36.7 C (98 F) 12/22/2023 1:01 PM EDT Respiratory Rate 16 12/22/2023 1:01 PM EDT Oxygen Saturation 93% 12/22/2023 1:01 PM EDT Inhaled Oxygen Concentration - - Weight 66.7 kg (147 lb 1.9 oz) 12/22/2023 1:01 P M EDT Height - - Body Mass Index 26.94 09/07/2023 10:51 AM EDT documented in this encounter Progress Notes * Erica Marsh MD - 12/22/2023 1:09 PM EDT Subjective Chief Complaint Patient presents with Re-Check HPI: Radha Tong is a 78 year old female. Patient is unaccompanied. The following issues were addressed today: Here for follow-up. Requesting refill of her oxycodone. Had appointment with Dr. Cosby on 11/29/23 to discuss opioiduse and recent overdose. Had hip fracture after fall in her garage, was found down with pupils pinpoint. Treated non-operatively. Has chronic pain, worst in the left hip and knees. Has to use a walker to ambulate. She is taking oxycodone 1 tablet in the morning, 1 at lunch time, 1 at dinner time, and 1 in the middle of the night when she wakes up. She gets 100 tablets every 30 days. Was last filled on 11/30/23. She saw [facility] pharmacy on 12/07/23 who recommended no changes to current regimen. Otherwise has no concerns today. Review of Systems: See HPI Objective BP 140/80 | Pulse 61 | Temp 36.7 C (98 F) (Tympanic) | Resp 16 | Wt 66.7 kg (147 lb 1.9 oz) | SpO2 93% | BMI 26.94 kg/m | BSA 1.71 m Wt Readings from Last 3 Encounters: 12/27/23 67.7 kg (149 lb 3.2 oz) 12/22/23 66.7 kg (147 lb 1.9 oz) 12/14/23 68 kg (150 lb) BP Readings from Last 3 Encounters: 12/27/23 102/58 12/22/23 140/80 12/14/23 138/84 General: Well-appearing, no acute distress Cardiovascular: Regular rate and rhythm, no murmur Respiratory: Good respiratory effort, breath sounds equal and clear to auscultation bilaterally Neurological: Alert and oriented, no focal deficits noted Psychiatric: Appropriate mood and affect Assessment & Plan 1. Chronic pain syndrome Continue current pain regimen. - oxyCODONE HCl 5 MG Oral Tablet (Oxy IR); Take 1 Tablet by mouth every 6 hours as needed for Pain,Severe. Dispense: 100 Tablet; Refill: 0 2. DDD (degenerative disc disease), lumbar Continue current pain regimen. 3. Closed nondisplaced fracture of greater trochanter of left femur with routine healing Continue current pain regimen. 4. PVD (peripheral vascular disease) with claudication (HCC) Follow-up as scheduled with vascular surgery 12/27/23. Continue current medications including statin, Plavix, Eliquis. Recommended smoking cessation. Return for follow-up as scheduled or sooner as needed. This note was electronically signed by Erica Marsh MD I spent a total of 30-39 minutes (exact time 35 mins) on the date of service in preparation, delivery, and documentation of the care provided to Radha Tong excluding any time spent in the performance of separately billed services or time spent by another provider/QHP. documented in this encounter Nursing Notes * Mili Landers LPN - 12/22/2023 12:58 PM EDT Radha Tong presents for 1 month recheck. Medications & HM reviewed. Denies any concerns at this time documented in this encounter Plan of Treatment Upcoming Encounters Date Type Department Care Team (Latest Contact Info) Description 01/12/2024 7:15 AM EDT Hospital Encounter OR C, OPERATING ROOM [facility] [address] [place] [phone] Albin Marr MD [address], [place] [id number] 01/12/2024 7:15 AM EDT - 01/12/2024 9:50 AM EDT Surgery [place] [facility] [facility] [address] [place] [phone] Albin Marr MD [address] [place] [address] CATHETER PLACEMENT, ABDOMINAL-LOWER EXTREMITY, FIRST ORDER BRANCH 01/25/2024 8:30 AM EDT Home Visit [facility], [facility] [address] [facility] [place] [address] Areli Washburn, RN [address] [place] [address] 01/31/2024 1:00 PM EDT Imaging Vascular Lab, [address] [facility] [place] [address] 01/31/2024 2:00 PM EDT Imaging Vascular Lab, [address] [place] [address] 01/31/2024 3:00 PM EDT Imaging Vascular Lab, [address] [facility] [place] [address] 02/07/2024 10:50 AM EDT Office Visit Vascular Surgery, [facility] [place] [address] Albin Marr MD [address] [place] [address] 03/07/2024 10:00 AM EDT Office Visit Pharmacy, [facility] [place] [address] [place] [address] [facility] [place] [address] 03/22/2024 10:30 AM EDT Cardiac Studies Cardiology, [facility] [address] [place] [address] [facility] [address] [place] [address] 06/21/2024 9:30 AM EST Office Visit Cardiology, [facility] [address] [place] [address] Joshua Henson PA-C [address] [place] [address] 06/25/2024 11:00 AM EST Office Visit Family Practice [facility] [address] [place] [address] Erica Marsh MD [address] [place] [address] Scheduled Procedures Name Priority Associated Diagnoses Date/Ti me CATHETER PLACEMENT, ABDOMINAL-LOWER EXTREMITY, FIRST ORDER BRANCH PVD (peripheral vascular disease) with claudication (HCC) 01/12/2024 7:15 AM EDT ANGIOGRAPHY EXTREMITY BILATERAL PVD (peripheral vascular disease) with claudication ([facility]) 01/12/2024 7:15 AM EDT IMAGING SUPERVISION & INTERPRETATION ABDOMINAL AO PVD (peripheral vascular disease) with claudication ([facility]) 01/12/2024 7:15 AM EDT ILIAC ARTERY REVASC W/ STENT+ANGIOPLASTY PVD (peripheral vascular disease) with claudication ([facility]) 01/12/2024 7:15 AM EDT COLONOSCOPY FLEXIBLE PROXIMAL DIAGNOSTIC Recall History of colonic polyps Health Maintenance Due Date Last Done Comments DISCUSS TOBACCO CESSATION (REFER TO SMARTSET #3291) 1945 Alpha-1 Antitrypsin 1965 Diabetic Foot Exam 1965 Adult Wellness Visit 2013 DXA Scan 09/04/2016 09/04/2013, 09/04/2013 *ADVANCE DIRECTIVE NOT ON FILE 06/09/2019 COVID-19 Vaccine ( season) 2023 11/12/2020, 10/01/2020 Depression Screening 06/02/2023 06/02/2022 Diabetic Eye Exam 07/21/2023 07/20/2022 Influenza Vaccine (FLU shot) (#1) 2024 02/27/2023, 02/27/2023, 02/21/2022, Additional history exists Albumin/Creatinine Ratio 03/02/202403/02/ 023, 02/21/2022, 07/23/2019 CKD PHOS USE SMARTSET 41159 03/02/202402/19, 10/07/2022, 02/21/2022, Additional history exists GFR 04/27/2024 10/27/2023, 08/20, 07/18/2023, Additional history exists HbA1c 05/31/2024 11/29/2023, 02/19, 01/15/2007, Additional history exists CKD HGB USE SMARTSET 25140 10/26/202410/26, 10/27/2023, 09/07/2023, Additional history exists O2 ASSESSMENT COMPLETED IN PAST YEAR FOR COPD 12/21/2024 12/22/2023 Colonoscopy 07/03/2028 07/03/2023, 08/28/2012 DTaP,Tdap,and Td Vaccines [...] Visit Diagnoses Diagnosis Chronic pain syndrome- Primary DDD (degenerative disc disease), lumbar Degeneration of lumbar or lumbosacral intervertebral disc Closed nondisplaced fracture of greater trochanter of left femur with routine healing Aftercare for healing traumatic fracture of hip PVD (peripheral vascular disease) with claudication (HCC) Peripheral vascular disease, unspecified PVD (peripheral vascular disease) with claudication (HCC)- Primary Peripheral vascular disease, unspecified PVD (peripheral vascular disease) with claudication (HCC) Peripheral vascular disease, unspecified PVD (peripheral vascular [...] Power of Attor zee? No Care Teams Die Cutting Machine Operator Relationship Specialty Start Date End Date Loli III, Roman Barraza MD [address] [place] [address] PCP - General Family Medicine 11/22/23 documented as of this encounter
--- OUTSIDE RECORDS SUMMARY | 2024-04-28 22:59 | External Medical Summary | Summary of Care ---
Author Name Unknown Organization [facility] Address [address] [place] [address] Phone [phone] Care Team Providers Care Mid Level Developer Name Role Phone Loli NORWOOD MD, Roman Barraza Primary Care Provider [phone] Reason for Visit * Reason Onset Date Comments Advice 10/19/2023 Encounter Details Date Type Department Care Team (Late st Contact Info) Description 10/19/[address] [facility] [place] 200 [facility] [place] [address] Roman Ennis III, MD 200 [facility] [place] [address] Advice Allergies Active Allergy Reactions Criticality Noted Date Comments Isosorbide Mononitrate 12/24/2007 Severe headaches Nsaids 05/29/2002 Tramadol Hcl Nausea/vomiting Low 01/09/2008 UGI distress documented as of this encounter (statuses as of 01/18/2024) Medications Medication Sig Dispensed Refills Start Date End Date Status Furosemide 40 MG Oral Tablet (Lasix) Take 1 Tablet by mouth daily AND 0.5 Tablets daily at noon. 135 Tablet 3 3 Active Nystatin 042990 UNIT/GM External Powder (Nystop) Apply topically to affected area 3 times a day. Apply to area under breasts 60 g 3 4 Active Ventolin HFA 108 (90 Base) MCG/ACT Inhalation Aerosol Solution Inhale 2 Puffs by mouth every 4 hours as needed for Wheezing or Dyspnea. 54 g 1 1 10/24/19 24 Discontinued Cyanocobalamin 1000 MCG Oral Tablet (Cyanocobalamin) Take by mouth 1 Tablet in the morning. 100 Tablet 5 2 11/02/19 24 Discontinued(Ref ill) Nitroglycerin 0.4 MG Sublingual Tablet Sublingual (Nitrostat)Indicat ions:ASCVD (arteriosclerotic cardiovascular disease),Chest pain, unspecified type DISSOLVE ONE TABLET UNDER THE TONGUE NEEDED FOR CHEST pain, maximum THREE doses 25 Tablet 5 3 11/02/19 24 Discontinued(Ref ill) Pantoprazole Sodium 40 MG Oral Tablet Delayed Release (Protonix)Indicati ons:Abdominal pain, epigastric TAKE ONE TABLET BY MOUTH DAILY 30 MINUTES BEFORE FIRST meal of THE DAY 90 Tablet 3 3 11/02/19 24 Discontinued(Ref ill) traZODone HCl 50 MG Oral Tablet (Desyrel) Take 0.5 Tablets by mouth at bedtime. 30 Tablet 5 3 11/02/19 24 Discontinued(Ref ill) Atorvastatin Calcium 20 MG Oral Tablet (Lipitor) Take 1 Tablet by mouth in the morning. 90 Tablet 5 3 10/24/19 24 Discontinued Anoro Ellipta 62.5-25 MCG/ACT Inhalation Aerosol Powder Breath Activated (umeclidinium-eusebia nterol) INHALE ONE PUFF EVERY DAY 180 Blister Dosing Unit 1 3 11/02/19 24 Discontinued(Ref ill) Gabapentin 300 MG Oral Capsule (Neurontin)Indicat ions:Hip pain, left Take one tablet by mouth in the morning and at noon and two tablets by mouth before bed. 120 Capsule 11 3 11/02/19 24 Discontinued(Ref ill) Ondansetron HCl 4 MG Oral Tablet (Zofran)Indication s:Nausea Take 1 Tablet by mouth every 8 hours as needed for Nausea. 20 Tablet 4 11/02/19 24 Discontinued(Ref ill) Eliquis 5 MG Oral Tablet (Apixaban) TAKE ONE TABLET BY MOUTH TWICE DAILY 180 Tablet 3 4 11/02/19 24 Discontinued(Ref ill) Ferrous Sulfate 325 (65 Fe) MG Oral Tablet Delayed Release Take 1 Tablet by mouth in the morning and 1 Tablet before bedtime. 30 Tablet 6 4 11/02/19 24 Discontinued(Ref ill) Metoprolol Succinate ER 50 MG Oral Tablet Extended Release 24 Hour (toPROL XL) Take 1 Tablet by mouth in the morning and 1 Tablet before bedtime. 30 Tablet 6 4 11/02/19 24 Discontinued(Ref ill) Lisinopril 10 MG Oral Tablet (Prinivil) Take 1 Tablet by mouth in the morning. 30 Tablet 6 4 11/02/19 24 Discontinued(Ref ill) Clopidogrel Bisulfate 75 MG Oral Tablet (Plavix) Take 1 Tablet by mouth in the morning. 30 Tablet 5 4 11/02/19 24 Discontinued(Ref ill) levETIRAcetam 500 MG Oral Tablet (Keppra) TAKE ONE TABLET BY MOUTH TWICE DAILY 60 Tablet 6 4 11/02/19 24 Discontinued(Ref ill) oxyCODONE HCl 5 MG Oral Tablet (Oxy IR)Indications:Chr onic pain syndrome Take 1 Tablet by mouth every 6 hours as needed (pain). 100 Tablet 4 10/24/19 24 Discontinued(Ref ill) documented as of this encounter (statuses as of 01/18/2024) Active Problems Problem Noted Date Diagnosed Date [...] cardiomyopathy 07/18/2018 Coronary artery disease invo lving sioux coronary artery of sioux heart without angina pectoris 05/08/2018 Anxiety [...] Modified by Acute [place] Protocol #5. [facility] right coronary bare metal stents S/P angioplasty with stent 09/07/2006 History of tobacco use documented as of this encounter (statuses as of 01/18/2024) Resolved Problems Problem Noted Date Diagnosed Date [...] 08/03/2023 Overview: Per CKD protocol Atherosclerosis of sioux co ronary artery without angina pectoris [...] for Patients with Cardiovascular Disease Project #: [id number] PI: Peyton Conn MD [phone] GENOMICS CARDIO RESEARCH OTHER*[id number] 01/15/2007 06/28/2016 Overview: Renamed Per Clinical Trials Billing Project. Study Title: Genomic Markers for Patients with Cardiovascular Disease Project #: [id number] PI: Peyton Conn MD [phone] LV (left ventricular) mural thrombus 10/30/2006 12/28/2017 Tobacco use disorder 09/07/2006 010 Acute inferior myocardial infarction 08/19/2006 12/11/2008 Overview: Modified by Acute [place] Protocol #5. [facility] [place] right coronary bare metal stents EXAMINATION OF PARTICIPANT I N CLINICAL TRIAL - HORIZONS 08/19/2006 09/04/2009 Overview: Renamed Per Clinical Trials Billing Project. [facility] AMI clinical trial 263 Single blind trial comparing heparin and IIB/IIIA with bivalirudin, and Taxus vs bare metal stent. Patient Follow-up for 5 years Vocational Instructor: Trent Verduzco [phone] [facility] Clinical Trial*[id number] 08/19/2006 09/08/2014 Overview: Renamed Per Clinical Trials Billing Project. [facility] AMI clinical trial 263 Single blind trial comparing heparin and IIB/IIIA with bivalirudin, and Taxus vs bare metal stent. Patient Follow-up for 5 years Vocational Instructor: Trent Verduzco [phone] Menopause 08/29/2002 02/23/2017 LOC PRIM [id number] 05/29/200206/23 Dyslipidemia, goal to be determined 05/29/2002 05/07/2009 Overview: Per Lipid Taxonomy. 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 (Household - for ages [...] Telephone Encounter - Xuan Xie DO - 10/23/2023 2:05 PM EDT [facility]- you have an appt with patient 11/08. Consider get UDS and do pill count. PCP Dr. Ennis out for prolonged medical leave. * Telephone Encounter - Kelly Tracy LPN - 10/19/2023 4:13 PM EDT There is no release on file allowing us to discuss patient's care with her daughter in law. There is an H&P that was scanned in yesterday from [facility]- pt with left hip fracture after a fall. They are looking to discharge her to SNF. Routing to [facility] Care team as well as PCP. * Telephone Encounter - Tiki Jiang OSA - 10/19/2023 3:36 PM EDT Spoke with Daughter in law / Nadiya she is asking for a call back from PCP to discuss patient over using her Oxy Nadiya stated patient got script filled on 10/12 100 pills and within 5 days patient had taken 40 ofthem. Nadiya also went on to say that patient will run out and will then substitute with Tylenol until she can get script refilled. Nadiya also stated that when patient gets these the 1st few days she will be tired/lethargic and has even had issues with vomiting and diarrhea. Nadiya stated patient had recently fallen and is currently in [facility] waiting for placement in rehab Please contact and advise TY documented in this encounter Plan of Treatment Upcoming Encounters Date Type Department Care Team (Late st Contact Info) Description 01/25/2024 8:30 AM EDT Home Visit [facility] [address] [facility] [place] [address] Areli Washburn, LISA [address] [place] [address] 01/31/2024 1:00 PM EDT Imaging Vascular Lab, [address] 132 [facility] [place] [address] 01/31/2024 2:00 PM EDT Imaging Vascular Lab, [address], [address] [place] [address] 01/31/2024 3:00 PM EDT Imaging Vascular Lab, [address], [place] 132 [facility] [place] [address] 02/07/2024 10:50 AM EDT Office Visit Vascular Surgery, [facility] 132 [facility] [place] [address] Albin Marr MD [address] [place] [address] 03/07/2024 10:00 AM EDT Office Visit Pharmacy, [address] [place] [address] [facility] [address] [place] [address] 03/22/2024 10:30 AM EDT Cardiac Studies Cardiology, [address] [place] [address] [facility] 132 [facility] [place] [address] 06/21/2024 9:30 AM EST Office Visit Cardiology, [facility] 132 [facility] [place] [address] Joshua Henson PA-C [address] [place] [address] 06/25/2024 11:00 AM EST Office Visit Family Practice [facility] [address] [place], [place] [address] Erica Marsh MD [address] [place], [place] [address] Scheduled Procedures Name Priority Associated Diagnoses Date/Ti [...] 023, 02/21/2022, 07/23/2019 CKD PHOS USE SMARTSET 62913 03/02/202402/19, 10/07/2022, 02/21/2022, Additional history exists GFR 04/27/2024 10/27/2023, 08/20, 07/18/2023, Additional history exists HbA1c 05/31/2024 11/29/2023, 02/19, 01/15/2007, Additional history exists CKD HGB USE SMARTSET 60924 10/26/202410/26, 10/27/2023, 09/07/2023, Additional history exists O2 [...] this encounter Medical Devices Implanted Type Area Mangle Press Catcher Device Identifier Shelf Expiration Date Model / Serial / Lot Graft Stent Balloon Expandable Endoprosthesis , 7 Mm 39 Mm 6 Fr 135 Cm Cath Heparin - [id number] Implanted:Qty: 1 on 01/12/2024 by Albin Marr MD at OR [facility] [place] Right: Iliac [employer] [id number] 07/18/2026 [id number] / [id number] / [id number] Graft Stent Balloon Expandable Endoprosthesis , 7 Mm 59 Mm 6 Fr 135 Cm Cath Heparin - [id number] Implanted:Qty: 1 on 01/12/2024 by Albin Marr MD at OR [facility] [place] Left: Iliac [employer] [id number] 07/07/2026 [id number] / [id number] / [id number] documented as of this encounter Advance Directives [...] Power of Attor zee? No Care Teams Mid Level Developer Relationship Specialty Start Date End Date Roman Ennis III, MD [address] [place] [address] PCP - General Family Medicine 11/22/23 documented as of this encounter
--- OUTSIDE RECORDS SUMMARY | 2024-04-28 22:59 | External Medical Summary ---
Author Name Unknown Address Unknown Organization : Laboratory Report Ordering Provider Test Date Status URI [email or web address] 01/12/2024 11:22:43 Final Observation Date Value Abnormality Reference (Units ) Status Glucose Point of Care 01/12/2024 11:22:43 89 70-120 (mg/dL) Final Performing Location
--- OUTSIDE RECORDS SUMMARY | 2024-04-28 22:59 | External Medical Summary | Summary of Care ---
Author Name Unknown Organization [facility] Address [address] [place] [address] Phone [phone] Care Team Providers Care Fire Support Specialist Name Role Phone Loli NORWOOD MD, Roman Barraza Primary Care Provider [phone] Reason for Visit * Auth/Cert Specialty Diagnoses / Procedures Referred By Xuan t Referred To Contact Diagnoses PVD (peripheral vascular disease) with claudication (HCC) PVD (peripheral vascular disease) with claudication (HCC) [I73.9] Procedures PLACE CATHETER IN ARTERY, FIRST IR ARTERIOGRAM EXTREMITY BILATERAL AORTOGRAM ABDOMINAL-TECH ONLY ILIAC ART. REVASC W/ STENT+ANGIOPLASTY CATHETER PLACEMENT, ABDOMINAL-LOWER EXTREMITY, FIRST ORDER BRANCH ANGIOGRAPHY EXTREMITY BILATERAL IMAGING SUPERVISION & INTERPRETATION ABDOMINAL AO ILIAC ARTERY REVASC W/ STENT+ANGIOPLASTY Albin Marr MD [address] [place] [address] Or Ip [facility] [address] [place] [address] Referral ID Status Reason Start Date Expiration Date Visits Re quested Visits Authorized [id number] Encounter Details Date Type Department Care Team (Latest Contact Info) Description 01/12/2024 10:00 AM EDT - 01/12/2024 6:26 PM EDT Hospital Encounter [facility], OPERATING ROOM [facility], YAMILETH PENDLETON [address] [place] [address] Albin Marr MD [address] [place] [address] Discharge Disposition: Home - Self Care Allergies Active Allergy Reactions Criticality Noted Date Comments Isosorbide Mononitrate 12/24/2007 Severe headaches Nsaids 05/29/2002 Tramadol Hcl Nausea/vomiting Low 01/09/2008 UGI distress documented as of this encounter (statuses as of 01/13/2024) Medications Medication Sig Dispensed Refills Start Date End Date Status Furosemide 40 MG Oral Tablet (Lasix) Take 1 Tablet by mouth daily AND 0.5 Tablets daily at noon. 135 Tablet 3 03/23/2023 Active Nystatin 038334 UNIT/GM External Powder (Nystop) Apply topically to [...] Tablet 11/02/2023 Active Vitamin D3 250 MCG (28047 UT) Oral Tablet Take by mouth. Active [...] for Pain, Severe. 100 Tablet 12/22/2023 Active documented as of this encounter (statuses as of 01/13/2024) Active Problems Problem Noted Date Diagnosed Date [...] cardiomyopathy 07/18/2018 Coronary artery disease invo lving chemehuevi coronary [...] Overview: Modified by Acute [place] Protocol #5. [facility] right coronary bare metal stents S/P angioplasty with stent 09/07/2006 History of tobacco use documented as of this encounter (statuses as of 01/13/2024) Resolved Problems Problem Noted Date Diagnosed Date [...] 08/03/2023 Overview: Per CKD protocol Atherosclerosis of chemehuevi co ronary artery without angina pectoris 07/28/2023 [...] for Patients with Cardiovascular Disease Project #: [id number] PI: Peyton Conn MD [phone] GENOMICS CARDIO RESEARCH OTHER*[id number] 01/15/2007 06/28/2016 Overview: Renamed Per Clinical Trials Billing Project. Study Title: Genomic Markers for Patients with Cardiovascular Disease Project #: [id number] PI: Peyton Conn MD [phone] LV (left ventricular) mural thrombus 10/30/2006 12/28/2017 Tobacco use disorder 09/07/2006 010 Acute inferior myocardial infarction 08/19/2006 12/11/2008 Overview: Modified by Acute [place] Protocol #5. [facility] right coronary bare metal stents EXAMINATION OF PARTICIPANT I N CLINICAL TRIAL - [facility] 08/19/2006 09/04/2009 Overview: Renamed Per Clinical Trials Billing Project. [facility] AMI clinical trial 263 Single blind trial comparing heparin and IIB/IIIA with bivalirudin, and Taxus vs bare metal stent. Patient Follow-up for 5 years Rehabilitation Services Coordinator: Trent Verduzco [phone] [facility] Clinical Trial*[id number] 08/19/2006 09/08/2014 Overview: Renamed Per Clinical Trials Billing Project. [facility] AMI clinical trial 263 Single blind trial comparing heparin and IIB/IIIA with bivalirudin, and Taxus vs bare metal stent. Patient Follow-up for 5 years Rehabilitation Services Coordinator: Trent Verduzco [phone] Menopause 08/29/2002 02/23/2017 LOC PRIM [id number] 05/29/200206/23 Dyslipidemia, goal to be determined 05/29/2002 05/07/2009 Overview: Per Lipid Taxonomy. 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 02/23/2017 documented as of this encounter (statuses as of 01/13/2024) Immunizations Name Administration Dates Next Due COVID-19 [...] Sign Reading Time Taken Comments Blood Pressure 165/94 01/12/2024 6:15 PM EDT Pulse 80 01/12/2024 6:15 PM EDT Temperature 36.4 C (97.5 F) 01/12/2024 5:30 PM ED T Respiratory Rate 23 01/12/2024 6:15 PM EDT Oxygen Saturation 95% 01/12/2024 6:15 PM EDT Inhaled Oxygen Concentration - - Weight 67.5 kg (148 lb 12.8 oz) 024 10:04 AM EDT Height 156.8 cm (5' 1.75") 01/12/2024 1 0:04 AM EDT Body Mass Index 27.44 01/12/2024 10:04 AM EDT documented in this encounter Discharge Summaries * Andria Adams MD - 01/12/2024 3:33 PM EDT [facility] [address] [facility] [address] OUTPATIENT SURGERY DISCHARGE SUMMARY NOTE Name: Radha Tong Location: OR [facility]/[place] Date: 01/12/2024 Time: 3:34 PM Date and Time of Procedure: 01/12/2024 at 3:34 PM Surgery Date: 01/12/2024 Procedure(s): CATHETER PLACEMENT, ABDOMINAL-LOWER EXTREMITY, FIRST ORDER BRANCH (Bilateral) ANGIOGRAPHY EXTREMITY BILATERAL (Bilateral) IMAGING SUPERVISION & INTERPRETATION ABDOMINAL AO (Bilateral) ILIAC ARTERY REVASC W/ STENT+ANGIOPLASTY (Bilateral) INTRAVASCULAR ULTRASOUND (NONCORONARY VESSEL) DURING DIAGNOSTIC EVALUATION AND/OR THERAPEUTIC INTERVENTION, INCLUDING RADIOLOGICAL SUPERVISION AND INTERPRETATION; INITIAL NONCORONARY VESSEL Surgeon: Albin Marr MD Discharge Diagnosis: PVD (peripheral vascular disease) with claudication (HCC) After examination of this patient, I have determined she is ready for discharge to home when the patient meets criteria. Discharge instructions were given to the patient. Andria Adams MD Vascular Surgery Fellow documented in this encounter Discharge Instructions * Discharge Instr - AVS* Andria Adams MD - 01/12/2024 3:32 PM EDT Discharge Date: 01/12/2024 You may call Albin Marr MD of the department of Vascular Surgery at the [facility] office in [place] [phone] option 2. After business hours, you may call with emergency questions to [phone] and ask that the on-call Vascular Surgery provider be paged. The information below provides you with the instructions and the list of medications you need to betaking following discharge from the hospital. If you have any questions, please ask before leaving.Please carry this letter with you when you see your doctor in the clinic. If you have questions, you can reach us at the numbers above. Brief summary of your inpatient care: Bilateral common iliac stents Your primary diagnosis at discharge was peripheral arterial disease. Your doctors during this hospitalization included: Albin Marr MD Inpatient test results pending: None Complications: none significant Advance Directive Documented: Advance Directive Does the Patient have an Advance Directive? No SUPPLEMENTAL INSTRUCTIONS: You underwent endovascular lower extremity revascularization. Should you experience any increased pain, drainage/redness, fever greater than 101 degrees, or increased swelling in your groin or arm incisions, please call [phone] to discuss with an advanced practitioner or physician ironer machine. If you leave with any bandages, remove those 24 hours following your surgery. Do not drive a car until you are walking normally and pain free (usually 5 to 7 days) and have stopped taking narcotic pain medicine. If you leave with any bandages, remove those tomorrow. You may take a shower and wash over the incision with soap and water. Do not soak the incision (i.e. take a bath) until the incision is completely healed. Any invasive procedure, such as dental work, endoscopy, colonoscopy, cystoscopy, etc. should be avoided in the first 3 months following surgery. If an urgent procedure is required, you should receive prophylactic antibiotics to prevent arterialgraft infection. The [employer] endocarditis prophylaxis regimen may be used for this purpose. Special Instructions: Restart Ciaranis on Saturday, January 13, 2024 For routine questions, your [facility] Vascular Surgery Team prefers the use of Crunched. Crunched is an online internet tool to help you meet your health care needs quickly by providing a secure, confidential way to view your health records and communicate with your [facility] Vascular SurgeryTeam. To sign up for Crunched go to [email or web address], "Click" Lamy Now on the right side o f the screen and complete the user registration information. documented in this encounter H&P Notes * Noe Mata MD - 01/12/2024 11:01 AM EDT HISTORY & PHYSICAL INTERVAL NOTE - General Surgery [address] [address] History and Physical Update: Name: Radha Tong Location: OR [facility] Date: 01/12/2024 Time: 11:01 AM DATE OF HISTORY AND PHYSICAL: 12/27/23 BP: 161 mmHg/82 mmHg (01/12/24 1107) Pulse: 60 (01/12/24 1107) Resp: 15 (01/12/24 110) Temp: 36 C (01/12/24 110) Temp Summary: Temp Min: 36 C (96.8 F) Max: 36 C (96.8 F) SpO2: 98 % (01/12/241106) O2 flow rate: Supplemental O2 Delivery: Room Air, None (01/12/241106) Does patient take a beta luna? Yes - medication: Metoprolol 50mg; date and time of last dose: yesterday Did patient stop anticoagulants: Plavix yesterday morning Heart Exam: regular rate and rhythm Lung Exam: clear to auscultation bilaterally Other Pertinent Physical Exam: Bilateral PT and DP signals found I have reviewed the H&P previously performed and examined the patient today. There are no new findings noted. * Noe Mata MD - 12/27/2023 10:59 AM EDT Images from the original note were not included. HISTORY AND PHYSICAL EXAMINATION - Vascular surgery [address] [address] Name: Radha Tong Location: OR [facility]/[place] Date: 01/12/2024 Time: 10:59 AM Radha Tong is a 78 year old female. Patient being seen in consultation at the request of Roman Ennis III, MD Chief Complaint: Return, to re-schedule for iliac stent placement Pt suffered left femur fracture end of September Admitted to [facility] 10/14-10/24/23 Treated non-operatively Now home following short rehab stay With today's visit, left buttock claudication is unchanged. No rest pain or ulcers feet/toes Seen by s Cardiology 12/14/23, cleared for surgery 1. Pre-operative [...] risk and wishes to proceed with surgery. Followed for small AAA HPI: Patient is a smoker who incidentaly noted to have a 2.8 cm infrarenal aorta with notation of extensive atherosclerotic disease well on CT scan of 03/19/2020 completed at [facility]. USaorta on 06/03/2020 suggesting a 3 cm AAA. 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 ABDOMINAL AORTIC ANEURYSM: Patient denies [...] HISTORY: No family history of aortic aneurysms. Problem List Patient Active Problem List Diagnosis ADVANCE DIRECTIVE INFORMATION S/P angioplasty with stent OLD MYOCARDIAL INFARCT Dyslipidemia, goal LDL below 70 History of tobacco use History of colonic polyps Biventricular implantable cardioverter-defibrillator in situ Controlled substance agreement signed Hepatitis C antibody test positive Incomplete uterovaginal prolapse Cystocele, lateral Vaginal atrophy Coronary artery disease involving chemehuevi coronary artery of chemehuevi heart without angina pectoris Anxiety state History [...] with peripheral vascular disease (HCC) Past Medical History Past Medical History: Diagnosis Date Acute deep vein thrombosis (DVT) of proximal vein of right lower extremity (HCC) 07/28/2023 History - September 2022 admission Acute inferior myocardial infarction (HCC) 08/19/2006 [facility] right coronary bare metal stents Automatic implantable cardiac defibrillator in situ 11/24/2008 [facility], Dr Bhavani Loya EF 20-25% Chronic obstructive [...] History - September 2022 admission Past Surgical History Past Surgical History: Procedure Laterality Date CARDIAC CATH-CARDIOLOGY ONLY 08/19/2006 right coronary artery 3 bare metal stents, [facility] CARPAL TUNNEL SURGERY Bilateral 02/20/2020 NEUROPLASTY MEDIAN NERVE AT CARPAL TUNNEL performed by Lore Richey DO at OR [facility] COLONOSCOPY, DIAGNOSTIC (RECTUM) N/A 07/03/2023 hemorrhoids/biopsies show adenomatous polyps/recall 5 years/Colonoscopy/MN EGD, FLEXIBLE, DIAGNOSTIC N/A 07/03/2023 biopsies normal/EGD/MN INSERT PULSE GENERATOR, EXISTING SINGLE LEAD 08/06/2013 NEW ICD GENERATOR ONLY performed by Tylor Loya MD at CARDIAC LABS [facility] LAP;W/HYSTERECTOMY 02/04/2020 LEFT VENTRICULAR PACING ELECTRODE, ADD-ON 11/24/2008 CS LEAD PLACEMENT WITH INITIAL DEVICE performed by TYLOR LOYA at CARDIAC LABS [facility] MAMMOGRAM - BILATERAL 07/17/2002 Birad Code 2 PACEMAKER-DEFIBRILLATOR ELECTRODE INSERT, SINGLE 08/09/2013 REPLACE LEAD (1 LEAD) performed by Monik Arnold IV, MD at CARDIAC LABS [facility] REMOVE CATARACT, INSERT LENS PROSTH Right REMOVE GALLBLADDER 1990s Cholecystectomy, [place] TENDON SHEATH INCISION, FINGER Bilateral 02/20/2020 TRIGGER FINGER RELEASE performed by Lore Richey DO at OR [facility] VAGINAL DELIVERY ONLY times 5 Social [...] Last attempt to quit: 06/28/2023 Years since quittin.4 Smokeless tobacco: Never Tobacco comments: 12/27/2023 7-8 cigarettes per day, decline pamphlet. Vaping Use [...] years): Not on file Social Connections: Unknown (12/27/2023) Social Connections How often do you feel lonely or isolated from those around you? (Adult - for ages 18 years and over): Not on file Housing Stability: Low Risk (12/21/2022) Housing Stability Do you currently live in a usp or have no steady place to sleep [...] OF SYSTEMS: Cardiovascular: Reports CAD with h/o AK s/p PCI/Stenting. ICD placement as well. Currently [...] 69/23, ante verts 06/22/2021; Location of Study: [facility]; Modality: duplex; AAA measures 3.1 cm in greatest transverse dimension. 06/03/2020; [facility]; Modality: duplex; AAA measures 3.0 cm in greatest transverse dimension. 03/19/2020 CT ([place]): 2.8 cm infrarenal aorta CARDIAC STUDIES: Device interrogation 11/30/2023: Normal Device Function Left pectoral device pocket is healthy without erythema, swelling, pain, or drainage. Alerts or events: None Battery: 2.96 V Sensing, impedance and thresholds reviewed and tested Fluid index reveals a baseline thoracic impedance indicating normal fluid status. Presenting Rhythm: ASVP Underlying Rhythm: SR Heart Rate Histograms reviewed Pacing and Detection Parameters were evaluated Echocardiogram report reviewed dated 06/29/2023 at [facility]: Ejection fraction 60 to 65%. Abnormal septal and apical wall motion abnormality reflects pacemaker activation. Base inferior wall is hypokinetic. Aortic valve sclerosis without significant aortic valvular stenosis. Mild AI. Trace MR. Mild TR. Estimated systolic pulmonary pressure of 36 mmHg. Grade 2 diastolic dysfunction. Results Results for orders placed or performed in visit on 11/29/23 HEMOGLOBIN A1C Result Value Ref Range Hemoglobin A1C 6.2 (H) 4.0 - 5.6 % Estimated Average Glucose 131 (H) <126 mg/dL TOXICOLOGY, URINE SCREEN W/ CONFIRMATION Result Value Ref Range Amphetamines Screen, U Negative Negative Benzodiazepines Screen, U Negative Negative Cannabinoids Screen, U Negative Negative Cocaine Metabolite Screen, U Negative Negative Fentanyl Screen, U Negative Negative Hydrocodone Screen, U Negative Negative Methadone Metabolite Screen, U Negative Negative Morphine/Codeine Screen, U Negative Negative Oxycodone Screen, U Negative Negative *Note: Due to a large number of results and/or encounters for the requested time period, some results have not been displayed. A complete set of results can be found in Results Review. The above clinical labs were reviewed by me on 12/27/23 IMPRESSIONS: Moderate LLE PAD, with mixed etiology [...] venous thromboembolic disease. ICM, s/p inferior posterior AK 08/2006, s/p PCI to RCA and 4 BMS 12/2006 Apical thrombus, on Eliquis (not evident on 2023 TTe) LBBB BiV ICD 11/24/2008 gent change 08/06/2013 with revision following day 07/10/2013. Seen by [facility] Cardiology 12/14/23, cleared for surgery 1. Pre-operative [...] wishes to proceed with surgery. HTN Dyslipidemia. Smoker, about 6 cigarettes per [...] degree of calcified plaque of proximal RCIA Updated consent signed Education booklet previously given to pt Hold Eliquis 2 days before surgery Pre op instructions re-given to pt RTC ~ 1 month post op with HUBERT, Abd Aor Duplex, BLE Art Duplex 1 wk prior SHERLYN Leung, PA-C Section of Vascular [place] [address] I have reviewed the advanced practitioner's documentation [...] plan for left (possible bilateral/kissing) iliac stent - 01/11 Since we last saw her she broke her hip - has recovered and is full weight bearing Cleared from cardiology perspective The patient was counseled at length regarding [...] demonstrate a poor result post angioplasty. The [facility] Vascular Surgery Angiography and Endovascular Procedures Booklet was given to the patient. Albin Marr MD Section of Vascular [place] [address] [phone] documented in this encounter Nursing Notes * Vandana Connor RN - 01/12/2024 3:30 PM EDT Dual Licensed Skin Assessment completed by Vandana Cortez and Loyda Espitia. The patient is/has a N/A Skin Breakdown (includes non blanchable erythema): Yes - Surgical/Procedural changes only. * Sukhdev Ferreira RN - 01/12/2024 12:00 PM EDT Dual Licensed Skin Assessment completed by LISA Ayala and LISA North. The patient is/has a N/A Skin Breakdown (includes non blanchable erythema): No Small red leblanc under breasts * Quynh Mar RN - 01/10/2024 4:47 PM EDT Presurgery instructions sent to patient via Crunched message. Pre-operative chart review completed-instructions provided based on current medication list in [facility]. NO ANESTHESIA EVAL REQUESTED PER CASE DOCUMENTATION. Per Vascular Surgery Letter: PATIENT INSTRUCTIONS: Surgical Procedure: Left leg revascularization, possible angioplasty, possible stent placement, possible bilateral iliac stent placement, other procedures as required Surgical Date: 01/12/24 Surgeon: Dr. Tejinder MD Advanced Practitioner: Forest Zarate PA-C Clinic phone number: [phone] You will receive a phone call the night before surgery telling you what time to arrive to the Surgery Check-In Unit on the 1st floor of the hospital, Main Entrance. Nothing to eat or drink by mouth after midnight the night before surgery including no food, no gum/hard candy, coffee, tea, other drink, or tobacco product. Continue all of your normal morning medications with a few sips of water on day of surgery unless otherwise instructed. CONTINUE your ASPIRIN & PLAVIX, including morning of surgery. STOP your Eliquis 2 days before surgery Please follow the pre-operative instructions provided by your vascular surgeon. If you have any questions regarding these instructions please contact your surgeon's office at [phone]. 24 hours prior to surgery/procedure DO NOT consume any alcohol. DO NOT use medical marijuana. DO NOT smoke or use tobacco products of any kind after midnight prior to surgery. *Using any of these products may increase your risks of procedural complications. Contact your surgeon's office if you develop any of the following within 2 weeks of surgery: A cold Infection Fever Shingles Chicken pox or exposure to chicken pox Open areas such as scrapes, cuts, guzman or other skin conditions Rashes GENERAL INSTRUCTIONS FOR PREPARING FOR SURGERY: BATHING INSTRUCTIONS: Bathe the evening prior to and the morning of surgery/procedure. Cleanse your body using ONLY anti-bacterial soap (eg, Dial, Safeguard) or any specific soap/cleansers and instructions provided by your surgeon (eg, Chlorhexidine). -You should brush your teeth the morning of surgery. Do NOT apply any lotions, powders, sprays, creams, oils, make-up, or deodorants after bathing. No hairspray, or nail rwandan on fingers or toes. Day of surgery/procedure do not use tampons. If you wear contacts wear your eyeglasses if available otherwise bring your contact supplies with you to remove them prior to your surgery/procedure. If you wear glasses or dentures, please bring cases in which you can store them during your surgery. Please remove all piercings and jewelry and leave them at home. Wear comfortable and loose clothing. -Please leave all valuables at home. -If you use a CPAP and are staying overnight, please bring your mask and tubing with you to the hospital. -If you use an assistive mobility device (walker, cane, etc), please label it with your name and bring to hospital. -An escort regional company flatbed truck driver is required if you are being discharged the same day of the surgery. You should have a responsible adult over the age of 18 [address] you home. This person should be present with youin the hospital at the time of discharge and for the first 24 hours after the surgery to support your needs. If you are taking a taxi home, you must have your responsible green party accompany you in the taxi ride home at the time of discharge. OR times subject to change. Please check voicemail messages the day/evening before your surgery forany updates. PRE-OP: You will be taken to the pre-op area where your vital signs (blood pressure, pulse and temperature)will be taken. Any preparations that need to be done will be done there. When it is time for your surgery, you will be taken to the operating room. PARENTS OF PEDIATRIC PATIENTS WILL BE ALLOWED TO STAY WITH THEIR CHILDREN UNTIL THEY ARE ESCORTED TO THE OPERATING ROOM OUTPATIENT SURGERY PATIENTS: After your surgery you will be taken to the Same Day Surgery Unit when you are awake and will go home from there. You will get instructions about your home care before you leave. Arrange to have someone drive you home from the hospital. You may not drive for 24 hours after anesthesia. You must havean adult stay with you at home for 24 hours after your operation. This is very important. If you are not able to comply with these guidelines, your Short Stay surgery cannot be done. ADMISSION PATIENTS: After your stay in the recovery area, you will be taken to your room. Your family may visit you in your room based on current visitation policy. If a next day discharge is expected, it is important to make arrangements for a regional company flatbed truck driver to take you home. Please be aware our visitation policies are subject to change Professionals, attendants, caregivers or family members are allowable visitors for patients with intellectual, developmental or cognitive disabilities, communication barriers or behavioral concerns. Because patients' and families' needs vary, they will be taken into account when applying visitation restrictions. ANESTHESIA INFORMATION This information has been prepared to help you and your family better understand the process of anesthesia, so that you may help make well-informed decisions about your care. This information is alsoprovided to guide your completion of the [facility] anesthesia consent form which addresses real, but infrequent, problems associated with anesthesia. IMPORTANT INFORMATION TO PREVENT YOUR SURGERY FROM BEING CANCELLED/ RESCHEDULED: --You are required to have a regional company flatbed truck driver to take you home whether you are admitted to the hospital following your surgery or not --You are required to have a responsible adult with you for the first 24 hours after surgery to support your needs Types of Anesthesia: Local Anesthesia Local anesthetic drugs (numbing drugs) are usually injected into the tissues to numb just the specific location of your body requiring minor surgery, such as an area of your hand or foot. Regional Anesthesia -Regional anesthesia involves the use of local anesthetics (numbing drugs) to numb larger areas of your body by blocking nerves to those areas. This is commonly referred to as a nerve block. Another way of performing regional anesthesia is by blocking nerves of the spinal cord by injecting numbing m edicines with great exactness around those nerves. This is called spinal or epidural anesthesia depending on exactly where the medication is injected. The type of regional anesthesia selected dependson the type of surgery and whether regional anesthesia is being done to help with pain after surgery or as a part of the anesthesia for surgery. You may remain awake, be sedated, or be given a general anesthetic depending on the type of surgery and the type of regional anesthesia performed Monitored Anesthesia Care (MAC) -Describes a range of sedation that can be given to a patient undergoing a procedure. The level of sedation usually depends on what is needed for the procedure being performed. A patient could be awake and aware of the procedure being performed but be relaxed and able to follow instructions as needed or may be unaware of what is happening and only rouse to significant stimulation. A patient may be able to speak, hear things around them, and answer questions and follow commands but is not in pain or anxious. A patient may experience varying depths of sedation during the procedure. The use of general anesthesia could result if this type of anesthesia is ineffective. General Anesthesia - Occurs by using a combination of medications to put a patient into a deep, sleep-like, unresponsive state for surgery. This is required for many surgical procedures. Under general anesthesia, a patient does not feel pain and is unaware of what is happening during the procedure. Systems in the body may not function normally while a patient is under general anesthesia. They are monitored by the anesthesia provider and may need to be assisted while a patient is under general anesthesia. For example, a breathing device may need to be placed in the airway to assist breathing and medications may need to be given to ensure that your blood pressure and heart rate remain normal. Risks of Anesthesia: Regional/Local/Nerve Blocks -Include but are not limited to, , cardiac or respiratory arrest, permanent complete paralysis, permanent nerve injury, seizure, spinal headache, backache, pain in buttocks and legs, infection, bleeding, leakage of spinal fluid, inadequate pain relief, bowel or bladder dysfunction, prolonged numbness or pain, temporary drop in blood pressure, or allergic reaction to the medications. Monitored Anesthesia Care (MAC) -Common risks include temporary dizziness, light-headedness, nausea and/or vomiting, and leakage ofintravenous fluid into the tissues with swelling or discoloration of the area or residual pain. Less common risks include, but are not limited to, , heart attack, permanent brain damage, stroke,pneumonia, blood clots, awareness, nerve stretch injury of your arm, neck or leg, permanent liver damage and allergic reaction to the medications. General Anesthesia -More common risks include temporary sore throat, pain in the neck or other muscles, dizziness, light-headedness, nausea and/or vomiting, and leakage of intravenous fluid into the tissues with swelling or discoloration of the area or residual pain. Less common risks include, but are not limited to,, heart attack, permanent brain damage, stroke, pneumonia, blood clots, irritation of the cornea of your eye, vision loss, loosened or broken teeth, or other oral injuries, awareness, nerve stretch injury of the arm, neck or leg, hoarseness, laryngospasm, permanent liver damage and allergic reaction to the medications. History of anesthesia complications: If you or a family member have had a complication related to anesthesia such as difficulty with placement of a breathing tube or a serious reaction to a medication administered for anesthesia, pleasetell your anesthesia provider. Having this information will help keep you safe while under anesthesia Nausea: A common side effect of anesthesia is nausea, but some patients do experience both nausea and vomiting. If you have experienced nausea or vomiting after anesthesia in the past, be sure to tell your anesthesia provider so medication can be given to help prevent it from happening again. Patient safety/consenting process: All surgical procedures and anesthetics have some small risks. They are dependent upon many factorsincluding the type of surgery and your medical condition. That is why it is important to know aboutany underlying medical problems, how they are treated and how they can be managed to reduce the risks of anesthesia and surgery. Thus, it is important for your anesthesia provider to ask detailed questions about your medical history, and to know what prescription medications you are taking, including dosages and schedules, as well as any over the counter or herbal medicines and supplements. You must notify the doctor of any of the following: -if you are or possibly -if you have any sensitivity to medications -present mental and physical condition -if recently consumed alcohol or non-clear liquids -if you are presently on psychiatric mood-altering drugs or other medications If you are a female of child-bearing age and you use any form of hormone-based contraception, please continue to use it and, in addition, use an alternative form of contraception, such as condoms andspermicide for a month after discharge from the hospital. This is because during the hospitalization you might receive one or more medications that may render hormone-based contraceptives ineffectivefor several days or weeks. The affected contraceptives include, but are not limited to, the usual contraceptive pills, most types of intrauterine devices, Depo-Provera shots, hormonal patches, and hormonal vaginal rings. If you are not sure, contact your primary care physician, your cashier supervisor, or your surgeon to check if this warning applies to you. You may need to have invasive monitoring, which includes the insertion of catheters into your veinsand arteries. This is done to measure pressures, to take blood samples, and may be used in emergentsituations for intravenous access. This monitoring has risks including, but not limited to, injury to your arteries, lung collapse, bleeding, nerve injury as well as the risks related to anesthesia. An esophageal probe may be used to monitor your heart, this monitor has risks which include sore throat, hoarseness, difficulty with swallowing, loosened or broken teeth and esophageal injury. Major complications are rare but could include , respiratory distress, an abnormal heartbeat, infection, and bleeding. As part of the consent to administer anesthesia authorization you will discuss the following with the anesthesia doctor and his/her associates: -your present condition and diagnosis as it pertains to anesthesia or sedation administration -a description of the proposed anesthetic/sedation technique or procedure to be used -significant risks and benefits of the proposed anesthetic/sedation technique or procedure -any applicable alternatives, including their risks and benefits -if applicable, use of back-up method of contraception for 30 days after discharge -if applicable, the option of having no treatment and the potential results of this -if your procedure is in an outpatient surgery setting-the risk associated with having this procedure in this type of setting should be discussed as well as the potential need for transfer to the hospital if necessary Please be sure to have all questions that you have answered prior to signing the consent to administer anesthesia. You can make your care safer by being an active, informed patient. It is important that you are involved in your health care. Being a good patient does not mean being a silent one. If you have questions, problems, safety concerns or unmet needs, please let us know if you would like further clarification of the "Patient Rights and Responsibilities" as they pertain to you, or would like more information regarding our complaint and for grievance process, please call the site where you receive care and request to speak withthe patient advocate line. [facility] [place]: Contact # [phone] Directions to Surgical Suite in from the [address] Entrance The Surgical Waiting Room can be found in the Lobby of [facility]. Enter through Main Lobby Entrance and the Waiting Room is directly in front of you. Proceed to check in and give them your name. Directions to Surgical Suite from the East Entrance Enter the East entrance and follow the hallway to the J elevator. Take the J elevator up to Level 1. Continue down the long hallway to the main [facility] Lobby. The Surgical Waiting Room will be on your Right. Proceed to check in and give them your Name. Directions to Surgical Suite from the Parking Garage Enter the [facility] lobby and proceed down the helm to the left. At the end of the helm, turn right. Continue down the long hallway to the main [facility] Lobby. The Surgical Waiting Room will be on your Right. Proceed to check in and give them your Name. THANK YOU FOR CHOOSING [facility]! documented in this encounter OR Notes * OR Surgeon - Albin Marr MD - 01/12/2024 3:04 PM EDT [address] [address] OPERATIVE REPORT Name: Radha Tong Date: 01/12/2024 Time: 3:04 PM Location: OR [facility] Service: Vascular Surgery Date of Operation: 01/12/2024 Pre-op Diagnosis: Left lower extremity peripheral arterial disease and claudication Post-op Diagnosis: Same. Surgeon: Albin Marr MD Assistants: Andria Adams MD Anesthesia: Monitored local anesthesia with sedation Operation: Abdominal aortogram Stenting of the right common iliac artery (7 mm x 39 mm stent) Stenting of the left common iliac artery (7 mm x 59 mm stent) Angioplasty left external iliac artery (6 mm x 80 mm balloon) Intravascular ultrasound guided re-entry left common iliac artery (PIONEER) Findings: Patent infrarenal aorta with small aortic aneurysm. 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 Left external iliac artery stenosis. Patent bilateral internal iliac arteries. Patent bilateral common femoral arteries. Unable to gain luminal re-entry left common iliac with large dissection plane extending up infrarenal aorta despite attempted septal disruption with balloon angioplasty, therefore PIONEER re-entry performed. After stenting and angioplasty widely patent bilateral iliacsystems. Specimen and Disposition: None Estimated Blood Loss: 25 ml Fluids: 400 mL crystalloid Urine Output: None Drains/Implants: Implant Name Type Inv. Item Serial No. Brass Plater Lot No. [id number] No. Used Action Graft Stent Balloon Expandable Endoprosthesis, 7 mm 39 mm 6 Fr 135 cm Cath Heparin - [id number] Graft Stent Balloon Expandable Endoprosthesis, 7 mm 39 mm 6 Fr 135 cm Cath Heparin [id number] [id number] Right 1 Implanted Graft Stent Balloon Expandable Endoprosthesis, 7 mm 59 mm 6 Fr 135 cm Cath Heparin - [id number] Graft Stent Balloon Expandable Endoprosthesis, 7 mm 59 mm 6 Fr 135 cm Cath Heparin [id number] [employer] [id number] Left 1 Implanted Complications: None Postoperative Condition: Stable Indications and History: Radha Tong presents with peripheral arterial disease and claudication. The plan is to proceed with angiography and revascularization. The patient has a history of disabling claudication. The patient has had a recent CT angiography confirming the extent of the severe vascular disease mandating this intervention. Description of Operation: The patient was identified by name (Radha Tong), MRN, and date of , and the procedure verified. In the operating room, a Time Out was held and the above information confirmed. After satisfactory anesthesia, the bilateral groins were prepped and draped in the usual sterile fashion. Following the administration of satisfactory anesthesia, the left common femoral artery was accessed using a micropuncture kit needle and ultrasound guidance. After up-sizing from the micropuncture needle to the 4 Anguillan introducer, a wire was threaded into the external iliac artery and a 5 Anguillan sheath placed. Retrograde angiogram was then performed. We attempted retrograde crossing of the occluded left common iliac artery. We entered a dissection plane and were unable to gain proximal luminal re-entry. Therefore contralateral access was obtainedin a similar manner as above. An Omniflush catheter was advanced into the infrarenal aorta and aortogram performed. We attempted antegrade crossing of the occluded left common iliac artery but were unsuccessful. We attempted to disrupt the dissection plane with 6 mm balloon angioplasty but were unable to create a fenestration into the true lumen. We then placed bilateral 6 bahamian sheaths. An 0.014 wire was advanced into the aortic dissection plane. The PIONEER device was advanced into the dissection plane. Utilizing intravascular ultrasound guidance an appropriate crossing point was identified. The needle was advanced into the true lumen and another 0.014 wire was advanced into the true lumen. The PIONEER was removed and a catheter advanced over the 0.014 wire into the true lumen. Midstream aortography performed. We then placed bilateral VBX balloon expandable covered stents in kissing fashion, raising the bifurcation above our re-entry point and ending prior to the internal iliac arteries. We then performed balloon angioplasty of the left external iliac artery. Satisfied with the completion angiography, guidewire, catheter and sheath were removed. Hemostasis at the femoral access sites were achieved with a Mynx device. Heparin was reversed with protamine. Hemostasis was good. Sponge count and needle counts were correct. The patient was transported in stable condition to the Recovery Room. Attestation: I was present and scrubbed for the entire procedure documented in this encounter Miscellaneous Notes * Progress Notes - Non-Billable - Andria Adams MD - 01/12/2024 5:23 PM EDT VASCULAR SURGERY POSTOPERATIVE PROGRESS NOTE [facility] [place]-[address] [address] Name: Radha Tong Location: [facility]/OR Date: 01/12/2024 Time: 5:13 PM SUBJECTIVE: No acute events postop, patient is resting comfortably. Pain is well-controlled. She islooking forward to being able to bend at the waist. OBJECTIVE: Most Recent Vital Signs: BP: 134 mmHg/75 mmHg (01/12/241614) Pulse: 59 (01/12/24 1615) Resp: 18 (01/12/241614) Temp: 36.39 C (01/12/24 1530) Temp Summary: Temp Min: 36 C (96.8 F) Max: 36.4 C (97.5 F) SpO2: 97 % (01/12/241614) O2 flow rate: 2 L/MIN (01/12/241614) Supplemental O2 Delivery: Nasal Cannula (01/12/241614) Vital Signs Last 24 Hours: Most Recent Systolic BP Av.8 mmHg Min: 102 mmHg Max: 161 mmHg Most Recent Temperature Av.2 C Min: 36 C Max: 36.39 C Pulse Av.2 Min: 59 Max: 69 Resp Av.8 Min: 13 Max: 19 SpO2 Av.8 % Min: 95 % Max: 99 % Intake/Output Summary (Last 24 hours) at 01/12/2024 1713 Last data filed at 01/12/2024 1540 Gross per 24 hour Intake 540 ml Output -- Net 540 ml Physical Exam: Constitutional: No acute distress HEENT: Normocephalic, Cardiac: Normal sinus rhythm. Resp: No increased WOB Abdomen/Pelvis: soft, nondistended Extremities: no overlying skin changes Neuro: gross sensation and motor function intact bilaterally with mild stocking neuropathy Vascular: multiphasic signals in DP/PT bilaterally, L>R. Improved from pre-op LABS: No results in the last 7 days - inpatent use only Recent Cultures (2 Weeks) No lab values to display. IMPRESSION and PLAN: 78F POD0 from kissing iliac stents with bilateral percutaneous groin access. She is doing well post-operatively with soft and hemostatic groins and improved doppler signals compared to pre-op. PLAN: - discharge to home - resume Eliquis tomorrow (POD1) - RTC ~ 1 month post op with HUBERT, Abd Aor Duplex, BLE Art Duplex 1 wk prior JOSELYN Deluna Vascular Surgery Patient seen with JOSELYN Deluna. Agree with note. Patient doing well and can discharge home at 6 PM. Andria Adams MD Vascular Surgery Fellow documented in this encounter Plan of Treatment Upcoming Encounters Date Type Department Care Team (Late st Contact Info) Description 01/25/2024 8:30 AM EDT Home Visit [facility] at Home, [facility] [address] [place] [address] Areli Washburn RN [address] [place] [address] 01/31/2024 1:00 PM EDT Imaging Vascular Lab, [address] [facility] [place] [address] 01/31/2024 2:00 PM EDT Imaging Vascular Lab, [address], [place] [address] [facility] [place] [address] 01/31/2024 3:00 PM EDT Imaging Vascular Lab, [address] [facility] [place] [address] 02/07/2024 10:50 AM EDT Office Visit Vascular Surgery, [facility] [address] [facility] [place] [address] Albin Marr MD [address] [place] [address] 03/07/2024 10:00 AM EDT Office Visit Pharmacy, [facility] [address] [facility] [place] [address] [facility] [address] [place] [address] 03/22/2024 10:30 AM EDT Cardiac Studies Cardiology, [facility] [address] [facility] [place] [address] [facility] [address] [facility] [place] [address] 06/21/2024 9:30 AM EST Office Visit Cardiology, [facility] [address] [place] [address] Joshua Henson PA-C [address] [place] [address] 06/25/2024 11:00 AM EST Office Visit Family Practice [facility] [address] [facility] [place] [address] Erica Marsh MD [address] [facility] [place] [address] Scheduled Procedures Name Priority Associated Diagnoses Date/Ti me COLONOSCOPY FLEXIBLE PROXIMA L DIAGNOSTIC Recall History of colonic polyps Health Maintenance Due Date Last Done Comments DISCUSS TOBACCO CESSATION (REFER TO SMARTSET #7069) 1945 Alpha-1 Antitrypsin 1965 Diabetic Foot Exam 1965 Adult Wellness Visit 2013 DXA Scan 09/04/2016 09/04/2013, 09/04/2013 *ADVANCE DIRECTIVE NOT ON FILE 06/09/2019 COVID-19 Vaccine ( season) 2023 11/12/2020, 10/01/2020 Depression Screening 06/02/2023 06/02/2022 Diabetic Eye Exam 07/21/2023 07/20/2022 Influenza Vaccine (FLU shot) (#1) 2024 02/27/2023, 02/27/2023, 02/21/2022, Additional history exists Albumin/Creatinine Ratio 03/02/20242 023, 02/21/2022, 07/23/2019 CKD PHOS USE SMARTSET 92134 03/02/202402/19, 10/07/2022, 02/21/2022, Additional history exists GFR 04/27/2024 10/27/2023, 08/20, 07/18/2023, Additional history exists HbA1c 05/31/2024 11/29/2023, 02/19, 01/15/2007, Additional history exists CKD HGB USE SMARTSET 47135 10/26/202410/26, 10/27/2023, 09/07/2023, Additional history exists O2 ASSESSMENT COMPLETED IN PAST YEAR FOR COPD 01/11/2025 01/12/2024 Colonoscopy 07/03/2028 07/03/2023, 08/28/2012 DTaP,Tdap,and Td Vaccines [...] this encounter Medical Devices Implanted Type Area Brass Plater Device Identifier Shelf Expiration Date Model / Serial / Lot Graft Stent Balloon Expandable Endoprosthesis , 7 Mm 39 Mm 6 Fr 135 Cm Cath Heparin - [id number] Implanted:Qty: 1 on 01/12/2024 by Albin Marr MD at OR [facility] Right: Iliac [employer] [id number] 07/18/2026 [id number] / [id number] / [id number] Graft Stent Balloon Expandable Endoprosthesis , 7 Mm 59 Mm 6 Fr 135 Cm Cath Heparin - [id number] Implanted:Qty: 1 on 01/12/2024 by Albin Marr MD at OR [facility] Left: Iliac [employer] [id number] 07/07/2026 [id number] / [id number] / [id number] documented as of this encounter Procedures Procedure Name Priority Date/Time Associated Diagnosis Comments VASC PROCEDURE IN VASCULAR ANGIO SUITE Routine 01/12/2024 3:17 PM EDT GLUCOSE METER, POINT OF CARE MARCELINA 01/12/2024 11:22 AM EDT documented in this encounter Results * VASC PROCEDURE IN VASCULAR ANGIO SUITE (01/12/2024 3:17 PM EDT) Narrative Scheduling, Silent - 01/12/2024 3:17 PM EDT This procedure will not be read by a Radiologist. Please see operative note. Albin Marr MD RAD SPECIAL PROCED URES * GLUCOSE METER, POINT OF CARE (01/12/2024 11:22 AM EDT) Glucose Meter 89 70 - 120 mg/dL 01/12/2024 11:24 AM EDT [facility] Blood Whole blood specimen / Unknown 01/12/2024 11:22 AM EDT 01/12/2024 11:24 AM EDT Albin Marr MD LAB POINT OF CARE TEST DOCKED DEVICE UNSOLICITED RESULTS [facility] [address] [place] [address] documented in this encounter Visit Diagnoses Diagnosis PVD (peripheral vascular disease) with claudication (HCC)- Primary Peripheral vascular disease, unspecified PVD (peripheral vascular disease) with claudication (HCC) Peripheral vascular disease, unspecified documented in this encounter Administered Medications Inactive Administered Medications - up to 3 most recent administrations Medication Order MAR Action Action Date Dose Rate Site fentaNYL (PF) inj 25 mcg 25 mcg, IV Push, ONCE, On Mon01/12/24 at 1730, For 1 dose, When given IV Push its recommended that the dose be given over 3 to 5 minutes., PACU Given 01/12/2024 4:58 PM EDT 25 mcg isolyte-S pH 7.4 infusion Intravenous, at 25 mL/hr, Plasma-LYTE 148, isolyte-S, and isolyte-S pH 7.4 are considered equivalent - including for MAR barcode scanning., CONTINUOUS, Starting on Mon01/12/24 at 1130, Until Mon01/12/24 at 2226, Pre-Op Restarted 01/12/2024 2:41 PM EDT New Bag 01/12/2024 1:07 PM EDT 100 mL/hr documented in this encounter Active and Recently Administered Medications Times are shown in EDT. Scheduled Medication Order 01/10/2024 01/11/2024 01/12/2024 Acetaminophen (Tylenol) tab 975 mg 975 mg, Oral, PREOP, First dose on Mon01/12/24 at 1130, Last dose on Mon01/12/24 at 1130, For 1 dose, Maximum 4 g acetaminophen/day. Avoid in patients with severe hepatic impairment or severe active liver disease. Administer 60 minutes prior to OR., Pre-Op 1130 (Not Given - Pr ovider: Sukhdev Ferreira RN - Reason: Refused-Notify Provider - Comment: Dr. Tejinder GILMORE aware. patient states it causes diarhea) ceFAZolin in dextrose (Ancef) ivpb 2 g (COMPLETED) 2 g, IV Piggyback, PREOP, 1 dose, First dose on Mon01/12/24 at 1130, Administer 60 minutes prior to skin incision, Pre-Op 1322 (Given - Provid er: George Arriaga, KT) chlorhexidine gluconate cloth 2 % pad 1 Pad 1 Pad, External, PREOP, First dose on Mon01/12/24 at 1130, Last dose on Mon01/12/24 at 1130, For 1 dose, Cleanse surgical site area immediately before transferring intra-op, Pre-Op 1130 (Due) fentaNYL (PF) inj 25 mcg (COMPLETED) 25 mcg, IV Push, ONCE, On Mon01/12/24 at 1730, For 1 dose, When given IV Push its recommended that the dose be given over 3 to 5 minutes., PACU 1658 (Given - Provid er: Vandana Connor RN) Continuous Medication Order 01/10/2024 01/11/2024 01/12/2024 isolyte-S pH 7.4 infusion Intravenous, at 25 mL/hr, Plasma-LYTE 148, isolyte-S, and isolyte-S pH 7.4 are considered equivalent - including for MAR barcode scanning., CONTINUOUS, Starting on Mon01/12/24 at 1130, Until Mon01/12/24 at 2226, Pre-Op 1307 (New Bag - Prov ider: George Arriaga, SRNA)1440 (Paused - Provider: Adriano Flores CRNA - Comment: Switch to gravity)1441 (Restarted - Provider: Adriano Flores CRNA) PRN Medication Order 01/10/2024 01/11/2024 01/12/2024 bupivacaine HCl 30 mL, lidocaine 1 % 30 mL inj (CANCELED) ONCE PRN INTRA PROCEDURE, Starting on Mon01/12/24 at 1459, Until Mon01/12/24 at 1515, Intra-Op 1459 (Given - Provid er: Albin Marr MD) hEParin 5,000 Units in NSS 500 mL infusion (CANCELED) ONCE PRN INTRA PROCEDURE, Starting on Mon01/12/24 at 1400, Until Mon01/12/24 at 1515, Intra-Op 1400 (Given - Provid er: Andria Adams MD) Iopamidol (Isovue M 300) inj (CANCELED) ONCE PRN INTRA PROCEDURE, Starting on Mon01/12/24 at 1459, Until Mon01/12/24 at 1515, Intra-Op 1459 (Given - Provid er: Albin Marr MD - Comment: injected directly into vessel via catheter) documented in this encounter Advance Directives * [...] Power of Attor zee? No Care Teams Fire Support Specialist Relationship Specialty Start Date End Date Roman Ennis III, MD [address] [place] [address] PCP - General Family Medicine 11/22/23 documented as of this encounter
--- OUTSIDE RECORDS SUMMARY | 2024-04-28 22:59 | External Medical Summary | Summary of Care ---
Author Name Unknown Organization [facility] Address [address] [facility] [address] Phone [phone] Care Team Providers Care Pulp Grinder Feeder Name Role Phone Loli NORWOOD MD, Roman Barraza Primary Care Provider Reason for Visit * Reason Comments [facility]: Maintenance Encounter Details Date Type Department Care Team (Late st Contact Info) Description 01/25/2024 10:00 AM EDT [facility] Visit [facility], [facility] [address] [place] [address] Areli Washburn, RN [address] [place] [address] Allergies Active Allergy Reactions Criticality Noted Date Comments Isosorbide Mononitrate 12/24/2007 Severe headaches Nsaids 05/29/2002 Tramadol Hcl Nausea/vomiting Low 01/09/2008 UGI distress documented as of this encounter (statuses as of 01/26/2024) Medications Medication Sig Dispensed Refills Start Date End Date Status Furosemide 40 MG Oral Tablet (Lasix) Take 1 Tablet by mouth daily AND 0.5 Tablets daily at noon. 135 Tablet 3 03/23/2023 Active Nystatin 131511 UNIT/GM External Powder (Nystop) Apply topically to [...] Tablet 11/02/2023 Active Vitamin D3 250 MCG (09502 UT) Oral Tablet Take by mouth. Active [...] as of this encounter (statuses as of 01/26/2024) Active Problems Problem Noted Date Diagnosed Date [...] cardiomyopathy 07/18/2018 Coronary artery disease invo lving [place] coronary artery of [place] heart without angina pectoris 05/08/2018 Anxiety state [...] [place] [facility] [place] History of colonic polyps 09/04/2012 Overview: 09/01/2012: adenoma, repeat in 3 years ICD-10 update of inactive term Dyslipidemia, goal LDL below 70 05/07/2009 Overview: Per Lipid Taxonomy. OLD MYOCARDIAL INFARCT 12/11/2008 Overview: Modified by Acute [place] Protocol #5. [facility] right coronary bare metal stents S/P angioplasty with stent 09/07/2006 History of tobacco use documented as of this encounter (statuses as of 01/26/2024) Resolved Problems Problem Noted Date Diagnosed Date [...] 08/03/2023 Overview: Per CKD protocol Atherosclerosis of [place] co ronary artery without angina pectoris 07/28/2023 [...] for Patients with Cardiovascular Disease Project #: [id number] PI: Peyton Conn MD [phone] GENOMICS CARDIO RESEARCH OTHER*[id number] 01/15/2007 06/28/2016 Overview: Renamed Per Clinical Trials Billing Project. Study Title: Genomic Markers for Patients with Cardiovascular Disease Project #: [id number] PI: Peyton Conn MD [phone] LV (left ventricular) mural thrombus 10/30/2006 12/28/2017 Tobacco use disorder 09/07/2006 010 Acute inferior myocardial infarction 08/19/2006 12/11/2008 Overview: Modified by Acute [place] Protocol #5. [facility] [place] coronary bare metal stents EXAMINATION OF PARTICIPANT I N CLINICAL TRIAL - HORIZONS 08/19/2006 09/04/2009 Overview: Renamed Per Clinical Trials Billing Project. [facility] AMI clinical trial 263 Single blind trial comparing heparin and IIB/IIIA with bivalirudin, and Taxus vs bare metal stent. Patient Follow-up for 5 years Environmental Health And Safety Manager: Trent Verduzco [phone] [facility] Clinical Trial*[id number] 08/19/2006 09/08/2014 Overview: Renamed Per Clinical Trials Billing Project. [facility] AMI clinical trial 263 Single blind trial comparing heparin and IIB/IIIA with bivalirudin, and Taxus vs bare metal stent. Patient Follow-up for 5 years Environmental Health And Safety Manager: Trent Verduzco [phone] Menopause 08/29/2002 02/23/2017 LOC PRIM [id number] 05/29/200206/23 Dyslipidemia, goal to be determined 05/29/2002 05/07/2009 Overview: Per Lipid Taxonomy. 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 02/23/2017 documented as of this encounter (statuses as of 01/26/2024) Immunizations Name Administration Dates Next Due COVID-19 [...] Sign Reading Time Taken Comments Blood Pressure 102/68 01/25/2024 9:40 AM EDT Pulse 68 01/25/2024 9:40 AM EDT Temperature 36 C (96.8 F) 01/25/2024 9:40 AM EDT Respiratory Rate 18 01/25/2024 9:40 AM EDT Oxygen Saturation 92% 01/25/2024 9:40 AM EDT Inhaled Oxygen Concentration - - Weight 67.1 kg (148 lb) 01/25/2024 9:40 AM EDT Height - - Body Mass Index 27.29 01/12/2024 10:04 AM EDT documented in this encounter Progress Notes * Areli Washburn RN - 01/25/2024 9:38 AM EDT [facility] Screen Printing Press Operator Visit Date: 01/25/2024 Time: 9:39 AM Name: Radha Tong : 1945 Current Concerns: Patient seen for follow up- COPD, CHF, CKD, Afib, HTN Recent vascular surgery 01/12/24- BLE angioplasty with stent placement Reports legs feel wonderful- gait steady- is able to clean and mop floor in home. VS wnl Lungs clear bilaterally Sob with exertion No LE edema Voiding without difficulty Bowels wnl- per report Appetite good Taking fluids well Problems/Symptoms: Review of Systems Constitutional: Negative. HENT: Negative. Respiratory: Positive for shortness of breath. Cardiovascular: Negative. Gastrointestinal: Negative. Genitourinary: Negative. Musculoskeletal: Negative. Neurological: Negative. Hematological: Bruises/bleeds easily. Psychiatric/Behavioral: Negative. Physical Exam: BP 102/68 (BP Site: Left Arm, BP Position: Sitting, BP Cuff Size: Regular) | Pulse 68 | Temp 36 C(96.8 F) (Tympanic) | Resp 18 | Wt 67.1 kg (148 lb) | SpO2 92% | BMI 27.29 kg/m | BSA 1.71 m Pain 0- Oxycodone prn pain Physical Exam Constitutional: Appearance: Normal appearance. Cardiovascular: [...] and Affect: Mood normal. Behavior: Behavior normal. [facility]-10 Completed this Visit: No. No falls since last visit Treatment/Plan: Weigh daily- keep log Continue medications as prescribed Keep all upcoming MD appointments Fall precautions Fluids encouraged Low na diet RN CM follow up in 8 weeks Home Interventions Provided: Reinforced current Plan of Care, including self-management and medication regimen Patient's Goals of Care: Go to [facility] every Mon/Mon Stay at home with my cats Patient's 'Red Flags': Increase of 2-3lbs/ 24 hours Increase in shortness of breath/ edema Lightheadedness/ dizziness Patient Needs to Remember: Call [facility] at with any new or worsening health concerns or problems, red flag symptoms. Referrals Needed: N/a Follow Up: Is there cellular connectivity/connectivity in the home? Yes Does the patient have internet in the home? No Patient encouraged to call the intake phone number for all urgent but not emergent issues. Scheduled to follow up with patient in 8 weeks. Areli Coates RN 01/25/2024 9:39 AM documented in this encounter Plan of Treatment Upcoming Encounters Date Type Department Care Team (Late st Contact Info) Description 01/31/2024 1:00 PM EDT Imaging Vascular Lab, [address] [place] [address] 01/31/2024 2:00 PM EDT Imaging Vascular Lab, [address] [place] [address] 01/31/2024 3:00 PM EDT Imaging Vascular Lab, [address] [facility] [place] [address] 02/07/2024 10:30 AM EDT Office Visit Vascular Surgery, [facility] [address] [place] [address] Albin Marr MD [address] [place] [address] 03/07/2024 10:00 AM EDT Office Visit Pharmacy, [facility] [address] [facility] [place] [address] [facility] [address] [place] [address] 03/20/2024 10:00 AM EDT Home Visit [facility] [place], [facility] [address] [place] [address] Areli Washburn RN [address] [facility] [place] [address] 03/22/2024 10:30 AM EDT Cardiac Studies Cardiology, [facility] [address] [place] [address] [facility] [address] [place] [address] 06/21/2024 9:30 AM EST Office Visit Cardiology, [facility] [address] [place] [address] Joshua Henson PA-C [address] [place] [address] 06/25/2024 11:00 AM EST Office Visit Family Practice [facility] [address] [facility] [place] [address] Erica Marsh MD [address] [facility] [place] [address] Scheduled Procedures Name Priority Associated Diagnoses Date/Ti me COLONOSCOPY FLEXIBLE PROXIMA L DIAGNOSTIC Recall History of colonic polyps Health Maintenance Due Date Last Done Comments DISCUSS TOBACCO CESSATION (REFER TO SMARTSET #9642) 1945 Alpha-1 Antitrypsin 1965 Diabetic Foot Exam 1965 Adult Wellness Visit 2013 DXA Scan 09/04/2016 09/04/2013, 09/04/2013 *ADVANCE DIRECTIVE NOT ON FILE 06/09/2019 Depression Screening 06/02/2023 06/02/2022 Diabetic Eye Exam 07/21/2023 07/20/2022 COVID-19 Vaccine ( season) 2024 11/12/2020, 10/01/2020 Influenza Vaccine (FLU shot) (#1) 2024 02/27/2023, 02/27/2023, 02/21/2022, Additional history exists Albumin/Creatinine Ratio 03/02/202403/02/ 023, 02/21/2022, 07/23/2019 CKD PHOS USE SMARTSET 65962 03/02/202402/19, 10/07/2022, 02/21/2022, Additional history exists GFR 04/27/2024 10/27/2023, 08/20, 07/18/2023, Additional history exists HbA1c 05/31/2024 11/29/2023, 02/19, 01/15/2007, Additional history exists CKD HGB USE SMARTSET 98027 10/26/202410/26, 10/27/2023, 09/07/2023, Additional history exists O2 [...] this encounter Medical Devices Implanted Type Area Dance Teacher Device Identifier Shelf Expiration Date Model / Serial / Lot Graft Stent Balloon Expandable Endoprosthesis , 7 Mm 39 Mm 6 Fr 135 Cm Cath Heparin - [id number] Implanted:Qty: 1 on 01/12/2024 by Albin Marr MD at [facility] Right: Iliac [employer] [id number] 07/18/2026 [id number] / [id number] / [id number] Graft Stent Balloon Expandable Endoprosthesis , 7 Mm 59 Mm 6 Fr 135 Cm Cath Heparin - [id number] Implanted:Qty: 1 on 01/12/2024 by Albin Marr MD [place] [facility] Left: Fabien [employer] [facility] [id number] 07/07/2026 [id number] / [id number] / [id number] documented as of this encounter Advance Directives [...] Power of Attor zee? No Care Teams Pulp Grinder Feeder Relationship Specialty Start Date End Date Roman Ennis III, MD [address] [facility] [place] [address] PCP - General Family Medicine 11/22/23 documented as of this encounter
--- OUTSIDE RECORDS SUMMARY | 2024-04-28 22:59 | External Medical Summary | Summary of Care ---
Author Name Unknown Organization [facility] Address [address] [place] [address] Phone [phone] Care Team Providers Care Glove Operator Name Role Phone Loli NORWOOD MD, Roman Barraza Primary Care Provider [phone] Reason for Visit * Reason Comments Follow Up Encounter Details Date Type Department Care Team (Late st Contact Info) Description 12/27/2023 10:10 AM EDT Office Visit Vascular Surgery, [facility] [address] [facility] [place] [address] Albin Marr MD [address] [place] [address] PVD (peripheral vascular disease) with claudication (HCC)*; Cigarette smoker; Dyslipidemia, goal LDL below 70 Allergies Active Allergy Reactions Criticality Noted Date Comments Isosorbide Mononitrate 12/24/2007 Severe headaches Nsaids 05/29/2002 Tramadol Hcl Nausea/vomiting Low 01/09/2008 UGI distress documented as of this encounter (statuses as of 12/28/2023) Medications Medication Sig Dispensed Refills Start Date End Date Status Furosemide 40 MG Oral Tablet (Lasix) Take 1 Tablet by mouth daily AND 0.5 Tablets daily at noon. 135 Tablet 3 03/23/2023 Active Nystatin 204469 UNIT/GM External Powder (Nystop) Apply topically to [...] Tablet 11/02/2023 Active Vitamin D3 250 MCG (41771 UT) Oral Tablet Take by mouth. Active [...] as of this encounter (statuses as of 12/28/2023) Active Problems Problem Noted Date Diagnosed Date [...] cardiomyopathy 07/18/2018 Coronary artery disease invo lving [place] coronary artery of [place] heart without angina pectoris 05/08/2018 Anxiety state [...] Overview: Modified by Acute [place] Protocol #5. [facility] right coronary bare metal stents S/P angioplasty with stent 09/07/2006 History of tobacco use documented as of this encounter (statuses as of 12/28/2023) Resolved Problems Problem Noted Date Diagnosed Date [...] 08/03/2023 Overview: Per CKD protocol Atherosclerosis of [place] co ronary artery without angina pectoris 07/28/2023 [...] for Patients with Cardiovascular Disease Project #: [id number] PI: Peyton Conn MD [phone] GENOMICS CARDIO RESEARCH OTHER*[id number] 01/15/2007 06/28/2016 Overview: Renamed Per Clinical Trials Billing Project. Study Title: Genomic Markers for Patients with Cardiovascular Disease Project #: [id number] PI: Peyton Conn MD [phone] LV (left ventricular) mural thrombus 10/30/2006 12/28/2017 Tobacco use disorder 09/07/2006 010 Acute inferior myocardial infarction 08/19/2006 12/11/2008 Overview: Modified by Acute [place] Protocol #5. [facility] right coronary bare metal stents EXAMINATION OF PARTICIPANT I N CLINICAL TRIAL - HORIZONS 08/19/2006 09/04/2009 Overview: Renamed Per Clinical Trials Billing Project. [facility] AMI clinical trial 2004- 0264 Single blind trial comparing heparin and IIB/IIIA with bivalirudin, and Taxus vs bare metal stent. Patient Follow-up for 5 years Apprentice Stylist: Trent Verduzco [phone] [facility] Clinical Trial*[id number] 08/19/2006 09/08/2014 Overview: Renamed Per Clinical Trials Billing Project. [facility] AMI clinical trial 263 Single blind trial comparing heparin and IIB/IIIA with bivalirudin, and Taxus vs bare metal stent. Patient Follow-up for 5 years Apprentice Stylist: Trent GeovannySarah Verduzco [phone] Menopause 08/29/2002 02/23/2017 LOC PRIM [id number] 05/29/200206/23 Dyslipidemia, goal to be determined 05/29/2002 05/07/2009 Overview: Per Lipid Taxonomy. 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 Alcohol Use [...] Reading Time Taken Comments Blood Pressure 102/58 12/27/2023 9:52 AM EDT Pulse 66 12/27/2023 9:52 AM EDT Temperature 36 C (96.8 F) 12/27/2023 9:52 AM EDT Respiratory Rate - - Oxygen Saturation - - Inhaled Oxygen Concentration - - Weight 67.7 kg (149 lb 3.2 oz) 12/27/2023 9:52 A M EDT Height - - Body Mass Index 27.32 09/07/2023 10:51 AM EDT documented in this encounter Progress Notes * Tatianna Zarate PA-C - 12/27/2023 10:10 AM EDT Images from the original note were not included. Radha Tong is a 78 year old female. Patient being seen in consultation at the request of Roman Ennis III, MD Chief Complaint: Return, to re-schedule for iliac stent placement Pt suffered left femur fracture end of September Admitted to [facility] 10/14-10/24/23 Treated non-operatively Now home following short [...] on CT scan of 03/19/2020 completed at [facility]. USaorta on 06/03/2020 suggesting a 3 cm AAA. 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 ABDOMINAL AORTIC ANEURYSM: Patient [...] lateral Vaginal atrophy Coronary artery disease involving [place] coronary artery of [place]ki[place] heart without angina pectoris Anxiety state History [...] admission Acute inferior myocardial infarction (HCC) 08/19/2006 [facility] right coronary bare metal stents Automatic implantable cardiac defibrillator in situ 11/24/2008 [facility], Dr Bhavani Loya EF 20-25% Chronic obstructive [...] admission Past Surgical History: Procedure Laterality Date CARDIAC CATH-CARDIOLOGY ONLY 08/19/2006 right coronary artery 3 bare metal stents, [facility] CARPAL TUNNEL SURGERY Bilateral 02/20/2020 NEUROPLASTY MEDIAN NERVE AT CARPAL TUNNEL performed by Lore Richey DO at OR [facility] COLONOSCOPY, DIAGNOSTIC (RECTUM) N/A 07/03/2023 hemorrhoids/biopsies show adenomatous polyps/recall 5 years/Colonoscopy/MN EGD, FLEXIBLE, DIAGNOSTIC N/A 07/03/2023 biopsies normal/EGD/MN INSERT PULSE GENERATOR, EXISTING SINGLE LEAD 08/06/2013 NEW ICD GENERATOR ONLY performed by Tylor Loya MD at CARDIAC LABS [facility] LAP;W/HYSTERECTOMY 02/04/2020 LEFT VENTRICULAR PACING ELECTRODE, ADD-ON 11/24/2008 CS LEAD PLACEMENT WITH INITIAL DEVICE performed by TYLOR LOYA at [facility]ARD[facility]S [facility] MAMMOGRAM - BILATERAL 07/17/2002 [facility] Code 2 PACEMAKER-DEFIBRILLATOR ELECTRODE INSERT, SINGLE 08/09/2013 REPLACE LEAD (1 LEAD) performed by Monik Arnold IV, MD at [facility] REMOVE CATARACT, INSERT LENS PROSTH Right REMOVE GALLBLADDER 1990s Cholecystectomy, [place] TENDON SHEATH INCISION, FINGER Bilateral 02/20/2020 TRIGGER FINGER RELEASE performed by Lore Richey DO at OR [facility] VAGINAL DELIVERY ONLY times 5 [...] Stability Do you currently live in a chcf or have no steady place to sleep [...] OF SYSTEMS: Cardiovascular: Reports CAD with h/o TX s/p PCI/Stenting. ICD placement as well. Currently [...] 69/23, ante verts 06/22/2021; Location of Study: [facility]; Modality: duplex; AAA measures 3.1 cm in greatest transverse dimension. 06/03/2020; Location of Study: [facility]; Modality: duplex; AAA measures 3.0 cm in greatest transverse dimension. 03/19/2020 CT ([place]): 2.8 cm infrarenal aorta CARDIAC STUDIES: Device [...] evaluated Echocardiogram report reviewed dated 06/29/2023 at [facility]: Ejection fraction 60 to 65%. Abnormal septal and apical wall motion abnormality reflects pacemaker activation. Base inferior wall is hypokinetic. Aortic valve sclerosis without significant aortic valvular stenosis. Mild AI. Trace MR. Mild TR. Estimated systolic pulmonary pressure of 36 mmHg. Grade 2 diastolic dysfunction. Results for orders placed or performed in [...] venous thromboembolic disease. ICM, s/p inferior posterior TX 08/2006, s/p PCI to RCA and 4 BMS 12/2006 Apical thrombus, on Eliquis (not evident on 2023 TTe) LBBB BiV ICD 11/24/2008 gent change 08/06/2013 with revision following day 07/10/2013. Seen by s Cardiology 12/14/23, cleared for [...] PA-C Section of Vascular and Endovascular Surgery [address] [address] I have reviewed the advanced [...] demonstrate a poor result post angioplasty. The [facility] Vascular Surgery Angiography and Endovascular Procedures Booklet was given to the patient. Albin Marr MD Section of Vascular and [place] [address] [phone] documented in this encounter Nursing Notes * Elsie Connro CMA - 12/27/2023 9:55 AM EDT Reviewed the option of transferring scripts to [facility] pharmacy with patient and / or family. Patient stated no change in medications. Elsie Connor CMA documented in this encounter Miscellaneous Notes * Addendum Note - Tatianna Zarate PA-C - 12/28/2023 2:56 PM EDTAddended by: TATIANNA ZARATE on: 12/28/2023 02:56 PM Modules accepted: Orders documented in this encounter Plan of Treatment Upcoming Encounters Date Type Department Care Team (Late st Contact Info) Description 01/12/2024 Hospital Encounter [facility], OPERATING ROOM [facility], [address] [place] [address] Albin Marr MD [address] [place] [address] 01/25/2024 12:30 PM EDT Home Visit [facility] at [facility] [address] [place] [address] Areli Washburn, RN 132 [facility] [place] [address] 01/31/2024 1:00 PM EDT Imaging Vascular Lab, [address] [place] [address] 01/31/2024 2:00 PM EDT Imaging Vascular Lab, [address] [place] [address] 01/31/2024 3:00 PM EDT Imaging Vascular Lab, [address] [place] [address] 02/07/2024 10:50 AM EDT Office Visit Vascular Surgery, [facility] [address] [place] [address] Albin Marr MD [address] [place] [address] 03/07/2024 10:00 AM EDT Office Visit Pharmacy, [facility] [address] [place] [address] [facility] [address] [place] [address] 03/22/2024 10:30 AM EDT Cardiac Studies Cardiology, [facility] [address] [place] [address] [facility] [address] [place] [address] 06/21/2024 9:30 AM EST Office Visit Cardiology, [facility] [address] [place] [address] Joshua Henson PA-C [address] [facility] [place] [address] 06/25/2024 11:00 AM EST Office Visit Family Practice [facility] [address] [facility] [place] [address] Erica Marsh MD [address] [facility] [place] [address] Scheduled Orders Name Type Priority Associated Diagnoses Orde r Schedule VAS ANKLE BRACHIAL INDICES WITHOUT PPG (PAD) Medical Imaging Routine PVD (peripheral vascular disease) with claudication (HCC) Cigarette smoker Dyslipidemia, goal LDL below 70 Ordered: 12/27/2023 [facility] AORTIC DUPLEX EVAL-COMPLETE Medical Imaging Routine PVD (peripheral vascular disease) with claudication (HCC) Cigarette smoker Dyslipidemia, goal LDL below 70 Ordered: 12/27/2023 [facility] [place] ART DUP BILAT LE Medical Imaging Routine PVD (peripheral vascular disease) with claudication (HCC) Cigarette smoker Dyslipidemia, goal LDL below 70 Ordered: 12/27/2023 Scheduled Procedures Name Priority Associated Diagnoses Date/Ti [...] 023, 02/21/2022, 07/23/2019 CKD PHOS USE SMARTSET 69158 03/02/202402/19, 10/07/2022, 02/21/2022, Additional history exists GFR 04/27/2024 10/27/2023, 08/20, 07/18/2023, Additional history exists HbA1c 05/31/2024 11/29/2023, 02/19, 01/15/2007, Additional history exists CKD HGB USE SMARTSET 13872 10/26/202410/26, 10/27/2023, 09/07/2023, Additional history exists O2 [...] LDL below 70 Other and unspecified hyperlipidemia PVD (peripheral vascular disease) with claudication (HCC)- [...] Power of Attor zee? No Care Teams Glove Operator Relationship Specialty Start Date End Date Roman Ennis III, MD [address] [place], [place] [address] PCP - General Family Medicine 11/22/23 documented as of this encounter
--- OUTSIDE RECORDS SUMMARY | 2024-04-28 22:59 | External Medical Summary | Summary of Care ---
Author Name Unknown Organization [facility] Address [address] [place] [place] [address] Phone [phone] Team Providers Care Road Oiling Truck Driver Name Role Phone Loli NORWOOD MD, Marilyn Barraza Primary Care Provider [phone] Reason for Visit * Reason Onset Date Comments Medication Refill 01/15/2024 Encounter Details Date Type Department Care Team (Late st Contact Info) Description 01/15/2024 Refill Family Practice [facility] [place] [address] [facility] [place] [place] [address] Mrailyn Nogueira III, MD 200 [facility] [place] [address] Chronic pain syndrome Allergies Active Allergy Reactions Criticality Noted Date Comments Isosorbide Mononitrate 12/24/2007 Severe headaches Nsaids 05/29/2002 Tramadol Hcl Nausea/vomiting Low 01/09/2008 UGI distress documented as of this encounter (statuses as of 01/17/2024) Medications Medication Sig Dispensed Refills Start Date End Date Status Furosemide 40 MG Oral Tablet (Lasix) Take 1 Tablet by mouth daily AND 0.5 Tablets daily at noon. 135 Tablet 3 03/23/2023 Active Nystatin 891151 UNIT/GM External Powder (Nystop) Apply topically to [...] Tablet 11/02/2023 Active Vitamin D3 250 MCG (76462 UT) Oral Tablet Take by mouth. Active Gabapentin 300 MG Oral Capsule (Neurontin) Take 1 Capsule by mouth daily AND 2 Capsules at bedtime. 90 Capsule 11 12/07/2023 Active Atorvastatin Calcium 20 MG Oral Tablet (Lipitor) TAKE ONE TABLET AT BEDTIME 30 Tablet 5 12/20/2023 Active oxyCODONE HCl 5 MG Oral Tablet (Oxy IR)Indications:Cardiothoracic Anesthesia Technician fernando pain syndrome Take 1 Tablet by mouth every 6 hours as needed for Pain, Severe. 100 Tablet 01/17/2024 Active oxyCODONE HCl 5 MG Oral Tablet (Oxy IR)Indications:Cardiothoracic Anesthesia Technician fernando pain syndrome Take 1 Tablet by mouth every 6 hours as needed for Pain, Severe. 100 Tablet 12/22/2023 Discontinue d(Refill) documented as of this encounter (statuses as of 01/17/2024) Active Problems Problem Noted Date Diagnosed Date [...] 07/18/2018 Coronary artery disease invo lving [place] coronary artery of [place] heart without angina pectoris 05/08/2018 Anxiety state 05/08/2018 ADVANCE DIRECTIVE INFORMATION 03/23/2018 Overview: No, Advance Directive brochure offered , patient declined. Incomplete uterovaginal prolapse 09/29/2017 Cystocele, lateral 09/29/2017 Vaginal atrophy 09/29/2017 Hepatitis C antibody test positive 05/09/2017 Overview: HCV treated; SVR Confirmed 03/05/2018 Controlled substance agreement signed 02/23/2017 Biventricular implantable ca rdioverter-defibrillator in situ 08/07/2013 Last Assessment & Plan: Followed by [facility] History of colonic polyps 09/04/2012 Overview: 09/01/2012: adenoma, repeat in 3 years ICD-10 update of inactive term Dyslipidemia, goal LDL below 70 05/07/2009 Overview: Per Lipid Taxonomy. OLD MYOCARDIAL INFARCT 12/11/2008 Overview: Modified by Acute [place] Protocol #5. [facility] right coronary bare metal stents S/P angioplasty with stent 09/07/2006 History of tobacco use documented as of this encounter (statuses as of 01/17/2024) Resolved Problems Problem Noted Date Diagnosed Date [...] Overview: Per CKD protocol Atherosclerosis of [place] co ronary artery without angina pectoris 07/28/2023 [...] for Patients with Cardiovascular Disease Project #: [id number] PI: Peyton Conn MD [phone] GENOMICS CARDIO RESEARCH OTHER*[id number] 01/15/2007 06/28/2016 Overview: Renamed Per Clinical Trials Billing Project. Study Title: Genomic Markers for Patients with Cardiovascular Disease Project #: [id number] PI: Peyton Conn MD [phone] LV (left ventricular) mural thrombus 10/30/2006 12/28/2017 Tobacco use disorder 09/07/2006 010 Acute inferior myocardial infarction 08/19/2006 12/11/2008 Overview: Modified by Acute [place] Protocol #5. [facility] right coronary bare metal stents EXAMINATION OF PARTICIPANT I N CLINICAL TRIAL - HORIZONS 08/19/2006 09/04/2009 Overview: Renamed Per Clinical Trials Billing Project. [facility] AMI clinical trial 263 Single blind trial comparing heparin and IIB/IIIA with bivalirudin, and Taxus vs bare metal stent. Patient Follow-up for 5 years Grants Assistant: Trent Verduzco [phone] [facility] Clinical Trial*[id number] 08/19/2006 09/08/2014 Overview: Renamed Per Clinical Trials Billing Project. [facility] AMI clinical trial 263 Single blind trial comparing heparin and IIB/IIIA with bivalirudin, and Taxus vs bare metal stent. Patient Follow-up for 5 years Grants Assistant: Trent Verduzco [phone] Menopause 08/29/2002 02/23/2017 LOC PRIM [id number] 05/29/200206/23 Dyslipidemia, goal to be determined 05/29/2002 05/07/2009 Overview: Per Lipid Taxonomy. 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 Often true 12/22/19 Within the past 12 months, t he [...] Encounter - Marilyn Nogueira III, MD - 01/17/2024 10:27 AM EDTSigned Prescriptions: Disp Refills oxyCODONE HCl 5 MG Oral Tablet (Oxy IR) 100 Ta*0 Sig: Take 1 Tablet by mouth every 6 hours as needed for Pain, Severe.Authorizing Provider: MARILYN NOGUEIRA III-------- * Telephone Encounter - Pretty Sargent [facility] - 01/17/2024 8:34 AM EDT Pending Prescriptions: Disp Refills oxyCODONE HCl 5 MG Oral Tablet (Oxy IR) 100 Ta*0 Sig: Take 1 Tablet by mouth every 6 hours as needed for Pain, Severe. * Telephone Encounter - Pretty Sargent [facility] - 01/17/2024 8:33 AM EDT I have reviewed the patients controlled substance dispensing history in the Prescription Drug Monitoring Program in compliance with the [facility] regulations before prescribing a controlled substance. PDMP checked on 01/17/2024. Pending Prescriptions: Disp Refills oxyCODONE HCl 5 MG Oral Tablet (Oxy IR) 100 Ta*0 Sig: Take 1 Tablet by mouth every 6 hours as needed for Pain, Severe. Last Visit: 12/22/2023 (in office), 08/24/2020 (telemedicine) Next Visit: 06/25/2024 Date medication was last filled: 12/24/23 Date medication is due for refill: 01/17/24 Pharmacy: [facility], [address] [place] Is this request for [...] Review. Please approve if appropriate. Thank you, Pretty Sargent, PharmD Clinical Pharmacist [facility] ([facility]) 01/17/24 8:34 AM [phone] * Telephone Encounter - Alessandra Owusu CPhT - 01/15/2024 9:04 AM EDT Did you pend patient's preferred pharmacy and medication before forwarding?yes Pharmacy: [facility], [address] [place] Pending Prescriptions: Disp Refills [...] appointment Last date the medication was ordered: 12/22/23 Is this request for a controlled substance?Yes, What was the last refill date 12/22/23 w/ quantity 100 and dosage 5mg and [...] LDLDIRECT 150 (H) 07/18/2018 12:17 PM ALT 9 (L) 10/27/2023 05:19 AM ALT 12 02/17/2020 01:00 PM HGBA1C 6.2 (H) 11/29/2023 12:07 PM HGBA1C 6.4 (H) 01/15/2007 11:30 AM documented in this encounter Plan of Treatment Upcoming Encounters Date Type Department Care Team (Late st Contact Info) Description 01/25/2024 8:30 AM EDT Home Visit [facility] [address] [place] [address] Areli Washburn, LISA [address] [place] [address] 01/31/2024 1:00 PM EDT Imaging Vascular Lab, [address] [place] [address] 01/31/2024 2:00 PM EDT Imaging Vascular Lab, [address] 132 [facility] [place] [address] 01/31/2024 3:00 PM EDT Imaging Vascular Lab, [facility] [place] [facility] [place] [address] 02/07/2024 10:50 AM EDT Office Visit Vascular Surgery, [facility] [address] [place] [address] Albin Marr MD [address] [place] [address] 03/07/2024 10:00 AM EDT Office Visit Pharmacy, [facility] [place] [address] [facility] [place] [address] [facility] [place] [address] 03/22/2024 10:30 AM EDT Cardiac Studies Cardiology, [facility] [address] [facility] [place] [address] [facility] [address] [facility] [place] [address] 06/21/2024 9:30 AM EST Office Visit Cardiology, [facility] [address] [facility] [place] [address] Joshua Henson PA-C [facility] [place] [address] 06/25/2024 11:00 AM EST Office Visit Family Practice [facility] [place] [address] [place], [place] [address] Erica Marsh MD [address] [place], [place] [address] Scheduled Procedures Name Priority Associated Diagnoses Date/Ti me COLONOSCOPY FLEXIBLE PROXIMA L DIAGNOSTIC Recall History of colonic polyps Health Maintenance Due Date Last Done Comments DISCUSS TOBACCO CESSATION (REFER TO SMARTSET #3891) 1945 Alpha-1 Antitrypsin 1965 Diabetic Foot Exam 1965 Adult Wellness Visit 2013 DXA Scan 09/04/2016 09/04/2013, 09/04/2013 *ADVANCE DIRECTIVE NOT ON FILE 06/09/2019 COVID-19 Vaccine ( season) 2023 11/12/2020, 10/01/2020 Depression Screening 06/02/2023 06/02/2022 Diabetic Eye Exam 07/21/2023 07/20/2022 Influenza Vaccine (FLU shot) (#1) 2024 02/27/2023, 02/27/2023, 02/21/2022, Additional history exists Albumin/Creatinine Ratio 03/02/2024 023, 02/21/2022, 07/23/2019 CKD PHOS USE SMARTSET 06421 03/02/202402/19, 10/07/2022, 02/21/2022, Additional history exists GFR 04/27/2024 10/27/2023, 08/20, 07/18/2023, Additional history exists HbA1c 05/31/2024 11/29/2023, 02/19, 01/15/2007, Additional history exists CKD HGB USE SMARTSET 15784 10/26/202410/26, 10/27/2023, 09/07/2023, Additional history exists O2 [...] this encounter Medical Devices Implanted Type Area Mine Wirer Device Identifier Shelf Expiration Date Model / Serial / Lot Graft Stent Balloon Expandable Endoprosthesis , 7 Mm 39 Mm 6 Fr 135 Cm Cath Heparin - [id number] Implanted:Qty: 1 on 01/12/2024 by Albin Marr MD at [place] [facility] Right: Iliac [employer] [id number] 07/18/2026 [id number] / [id number] / [id number] Graft Stent Balloon Expandable Endoprosthesis , 7 Mm 59 Mm 6 Fr 135 Cm Cath Heparin - [id number] Implanted:Qty: 1 on 01/12/2024 by Albin Marr MD at OR [facility] Left: Iliac [employer] [id number] 07/07/2026 [id number] / [id number] / [id number] documented as of this encounter Visit Diagnoses [...] Power of Attor zee? No Care Teams Road Oiling Truck Driver Relationship Specialty Start Date End Date Marilyn Nogueira III, MD 200 [facility] [place] [address] PCP - General Family Medicine 11/22/23 documented as of this encounter
--- OUTSIDE RECORDS SUMMARY | 2024-04-28 22:59 | External Medical Summary | Summary of Care ---
Author Name Unknown Organization [facility] Address [address] [place] [address] Phone [phone] Care Team Providers Care Tube Sizer Operator Name Role Phone Loli NORWOOD MD, Roman Barraza Primary Care Provider [phone] Reason for Visit * Reason Comments Follow Up Encounter Details Date Type Department Care Team (Late st Contact Info) Description 12/27/2023 10:10 AM EDT Office Visit Vascular Surgery, [facility] [address] [facility] [place] [address] Albin Marr MD [address] [place] [address] PVD (peripheral vascular disease) with claudication (HCC)*; Cigarette smoker; Dyslipidemia, goal LDL below 70 Allergies Active Allergy Reactions Criticality Noted Date Comments Isosorbide Mononitrate 12/24/2007 Severe headaches Nsaids 05/29/2002 Tramadol Hcl Nausea/vomiting Low 01/09/2008 UGI distress documented as of this encounter (statuses as of 12/27/2023) Medications Medication Sig Dispensed Refills Start Date End Date Status Furosemide 40 MG Oral Tablet (Lasix) Take 1 Tablet by mouth daily AND 0.5 Tablets daily at noon. 135 Tablet 3 03/23/2023 Active Nystatin 578417 UNIT/GM External Powder (Nystop) Apply topically to [...] Tablet 11/02/2023 Active Vitamin D3 250 MCG (30044 UT) Oral Tablet Take by mouth. Active [...] as of this encounter (statuses as of 12/27/2023) Active Problems Problem Noted Date Diagnosed Date [...] cardiomyopathy 07/18/2018 Coronary artery disease invo lving [place] coronary artery of [place] heart without angina pectoris 05/08/2018 Anxiety [...] Modified by Acute [place] Protocol #5. [facility] right coronary bare metal stents S/P angioplasty with stent 09/07/2006 History of tobacco use documented as of this encounter (statuses as of 12/27/2023) Resolved Problems Problem Noted Date Diagnosed Date [...] 08/03/2023 Overview: Per CKD protocol Atherosclerosis of [place] co ronary artery without angina pectoris [...] for Patients with Cardiovascular Disease Project #: [id number] PI: Peyton Conn MD [phone] GENOMICS CARDIO RESEARCH OTHER*[id number] 01/15/2007 06/28/2016 Overview: Renamed Per Clinical Trials Billing Project. Study Title: Genomic Markers for Patients with Cardiovascular Disease Project #: [id number] PI: Peyton Conn MD [phone] LV (left ventricular) mural thrombus 10/30/2006 12/28/2017 Tobacco use disorder 09/07/2006 010 Acute inferior myocardial infarction 08/19/2006 12/11/2008 Overview: Modified by Acute [place] Protocol #5. [facility] right coronary bare metal stents EXAMINATION OF PARTICIPANT I N CLINICAL TRIAL - HORIZONS 08/19/2006 09/04/2009 Overview: Renamed Per Clinical Trials Billing Project. [facility] AMI clinical trial 2004- 0264 Single blind trial comparing heparin and IIB/IIIA with bivalirudin, and Taxus vs bare metal stent. Patient Follow-up for 5 years Distributor Publications: Trent Verduzco [phone] [facility] Clinical Trial*[id number] 08/19/2006 09/08/2014 Overview: Renamed Per Clinical Trials Billing Project. [facility] AMI clinical trial 263 Single blind trial comparing heparin and IIB/IIIA with bivalirudin, and Taxus vs bare metal stent. Patient Follow-up for 5 years Distributor Publications: Trent GeovannySarah Verduzco [phone] Menopause 08/29/2002 02/23/2017 LOC PRIM [id number] 05/29/200206/23 Dyslipidemia, goal to be determined 05/29/2002 05/07/2009 Overview: Per Lipid Taxonomy. 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 Radha Tong is a 78 year old female. Patient being seen in consultation at the request of Roman Ennis III, MD Chief Complaint: Return, to re-schedule for iliac stent placement Pt suffered left femur fracture end of September Admitted to [facility] 10/14-10/24/23 Treated non-operatively Now home following short rehab stay With today's visit, left buttock claudication is unchanged. No rest pain or ulcers feet/toes Seen by [facility] 12/14/23, cleared for surgery 1. Pre-operative [...] on CT scan of 03/19/2020 completed at [facility]. USaorta on 06/03/2020 suggesting a 3 cm AAA. 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 ABDOMINAL AORTIC ANEURYSM: Patient denies [...] lateral Vaginal atrophy Coronary artery disease involving [place] coronary artery of [place] heart without angina pectoris Anxiety state History [...] admission Acute inferior myocardial infarction (HCC) 08/19/2006 [facility] right coronary bare metal stents Automatic implantable cardiac defibrillator in situ 11/24/2008 [facility], Dr Bhavani Loya EF 20-25% Chronic obstructive [...] right coronary artery 3 bare metal stents, [facility] CARPAL TUNNEL SURGERY Bilateral 02/20/2020 NEUROPLASTY MEDIAN NERVE AT CARPAL TUNNEL performed by Lore Richey DO at OR [facility] COLONOSCOPY, DIAGNOSTIC (RECTUM) N/A 07/03/2023 hemorrhoids/biopsies show adenomatous polyps/recall 5 years/Colonoscopy/[place] EGD, FLEXIBLE, DIAGNOSTIC N/A 07/03/2023 biopsies normal/EGD/[place] INSERT PULSE GENERATOR, EXISTING SINGLE LEAD 08/06/2013 NEW ICD GENERATOR ONLY performed by Tylor Loya MD at [facility] LAP;W/HYSTERECTOMY 02/04/2020 LEFT VENTRICULAR PACING ELECTRODE, ADD-ON 11/24/2008 CS LEAD PLACEMENT WITH INITIAL DEVICE performed by TYLOR LOYA at [facility] MAMMOGRAM - BILATERAL 07/17/2002 Birad Code 2 PACEMAKER-DEFIBRILLATOR ELECTRODE INSERT, SINGLE 08/09/2013 REPLACE LEAD (1 LEAD) performed by Monik Arnold IV, MD at [facility] REMOVE CATARACT, INSERT LENS PROSTH Right REMOVE GALLBLADDER 1990s Cholecystectomy, [place] TENDON SHEATH INCISION, FINGER Bilateral 02/20/2020 TRIGGER FINGER RELEASE performed by Lore Richey DO at OR [facility] VAGINAL DELIVERY ONLY times 5 Social [...] Stability Do you currently live in a assisted or have no steady place to sleep [...] OF SYSTEMS: Cardiovascular: Reports CAD with h/o [place] s/p PCI/Stenting. ICD placement as well. Currently [...] 69/23, ante verts 06/22/2021; Location of Study: [facility]; Modality: duplex; AAA measures 3.1 cm in greatest transverse dimension. 06/03/2020; Location of Study: [facility]; Modality: duplex; AAA measures 3.0 cm in greatest transverse dimension. 03/19/2020 CT ([place]): 2.8 cm infrarenal aorta CARDIAC STUDIES: Device [...] evaluated Echocardiogram report reviewed dated 06/29/2023 at [facility]: Ejection fraction 60 to 65%. Abnormal septal [...] venous thromboembolic disease. ICM, s/p inferior posterior [place] 08/2006, s/p PCI to RCA and 4 BMS 12/2006 Apical thrombus, on Eliquis (not evident on 2023 TTe) LBBB BiV ICD 11/24/2008 gent change 08/06/2013 with revision following day 07/10/2013. Seen by [facility] 12/14/23, cleared for surgery 1. Pre-operative [...] PA-C Section of Vascular and Endovascular Surgery [address] [address] I have reviewed the advanced [...] demonstrate a poor result post angioplasty. The [facility] Vascular Surgery Angiography and Endovascular Procedures Booklet was given to the patient. Albin Marr MD Section of Vascular [place] [address] [phone] documented in this encounter Nursing Notes * Elsie Connor CMA - 12/27/2023 9:55 AM EDT Reviewed the option of transferring scripts to [facility] pharmacy with patient and / or family. Patient stated no change in medications. Elsie Connor CMA documented in this encounter Plan of Treatment Upcoming Encounters Date Type Department Care Team (Late st Contact Info) Description 12/27/2023 4:00 PM EDT Home Visit [facility], [facility] 132 [facility] [place] [address] Areli Washburn RN [address] [place] [address] 01/31/2024 1:00 PM EDT Imaging Vascular Lab, [facility] [address] [facility] 132 [facility] [place] [address] 01/31/2024 2:00 PM EDT Imaging Vascular Lab, [address], [address] [place] [address] 01/31/2024 3:00 PM EDT Imaging Vascular Lab, [address], [place] [address] [facility] [place] [address] 02/07/2024 10:50 AM EDT Office Visit Vascular Surgery, [facility] 132 [facility] [place] [address] Albin Marr MD [address] [place] [address] 03/07/2024 10:00 AM EDT Office Visit Pharmacy, [address] [place] [address] [facility] [address] [place] [address] 03/22/2024 10:30 AM EDT Cardiac Studies Cardiology, [address] [place] [address] [facility] [address] [place] [address] 06/21/2024 9:30 AM EST Office Visit Cardiology, [facility] [address] [place] [address] Joshua Henson PA-C [address] [place] [address] 06/25/2024 11:00 AM EST Office Visit Family Practice [facility] [address] [place] [address] Erica Marsh MD [address] [place] [address] Scheduled Orders Name Type Priority Associated Diagnoses Orde r Schedule VASC ANKLE BRACHIAL INDICES WITHOUT PPG (PAD) Medical Imaging Routine PVD (peripheral vascular disease) with claudication (HCC) Cigarette smoker Dyslipidemia, goal LDL below 70 Ordered: 12/27/2023 VAS AORTIC DUPLEX EVAL-COMPLETE Medical Imaging Routine PVD (peripheral vascular disease) with claudication (HCC) Cigarette smoker Dyslipidemia, goal LDL below 70 Ordered: 12/27/2023 VASC MESA GRANDE ART DUP BILAT LE Medical Imaging Routine PVD (peripheral vascular disease) with claudication (HCC) Cigarette smoker Dyslipidemia, goal LDL below 70 Ordered: 12/27/2023 Scheduled Procedures Name Priority Associated Diagnoses Date/Ti me COLONOSCOPY FLEXIBLE PROXIMA L DIAGNOSTIC Recall History of colonic polyps Health Maintenance Due Date Last Done Comments DISCUSS TOBACCO CESSATION (REFER TO SMARTSET #3294) 1945 Alpha-1 Antitrypsin 1965 Diabetic Foot Exam 1965 Adult Wellness Visit 2013 DXA Scan 09/04/2016 09/04/2013, 09/04/2013 *ADVANCE DIRECTIVE NOT ON FILE 06/09/2019 COVID-19 Vaccine ( season) 2023 11/12/2020, 10/01/2020 Depression Screening 06/02/2023 06/02/2022 Diabetic Eye Exam 07/21/2023 07/20/2022 Influenza Vaccine (FLU shot) (#1) 2024 02/27/2023, 02/27/2023, 02/21/2022, Additional history exists Albumin/Creatinine Ratio 03/02/2024 023, 02/21/2022, 07/23/2019 CKD PHOS USE SMARTSET 59383 03/02/202402/19, 10/07/2022, 02/21/2022, Additional history exists GFR 04/27/2024 10/27/2023, 08/20, 07/18/2023, Additional history exists HbA1c 05/31/2024 11/29/2023, 02/19, 01/15/2007, Additional history exists CKD HGB USE SMARTSET 64633 10/26/202410/26, 10/27/2023, 09/07/2023, Additional history exists O2 [...] LDL below 70 Other and unspecified hyperlipidemia documented in this encounter Advance Directives * [...] Power of Attor zee? No Care Teams Tube Sizer Operator Relationship Specialty Start Date End Date Roman Ennis III, MD [address] [place] [address] PCP - General Family Medicine 11/22/23 documented as of this encounter
--- OUTSIDE RECORDS SUMMARY | 2024-04-28 22:59 | External Medical Summary | Summary of Care ---
Author Name Unknown Organization [facility] Address [address] [place] [address] Phone [phone] Care Team Providers Care Security Systems Administrator Name Role Phone Loli NORWOOD MD, Roman Barraza Primary Care Provider [phone] Reason for Visit * Reason Comments Follow Up Encounter Details Date Type Department Care Team (Late st Contact Info) Description 12/27/2023 10:10 AM EDT Office Visit Vascular Surgery, [facility] [address] [facility] [place] [address] Albin Marr MD [address] [place] [address] PVD (peripheral vascular disease) with [...] noon. 135 Tablet 3 03/23/2023 Active Nystatin 185381 UNIT/GM External Powder (Nystop) Apply topically to [...] Tablet 11/02/2023 Active Vitamin D3 250 MCG (79201 UT) Oral Tablet Take by mouth. Active [...] cardiomyopathy 07/18/2018 Coronary artery disease invo lving [place] coronary artery of [place] heart without angina pectoris 05/08/2018 Anxiety [...] Overview: Modified by Acute [place] Protocol #5. [facility] [...] 08/03/2023 Overview: Per CKD protocol Atherosclerosis of [place] co ronary artery without angina pectoris 07/28/2023 [...] for Patients with Cardiovascular Disease Project #: [id number] PI: Peyton Conn MD [phone] GENOMICS CARDIO RESEARCH OTHER*[id number] 01/15/2007 06/28/2016 Overview: Renamed Per Clinical Trials Billing Project. Study Title: Genomic Markers for Patients with Cardiovascular Disease Project #: [id number] PI: Peyton Conn MD [phone] LV (left ventricular) mural thrombus 10/30/2006 12/28/2017 Tobacco use disorder 09/07/2006 010 Acute inferior myocardial infarction 08/19/2006 12/11/2008 Overview: Modified by Acute [place] Protocol #5. [facility] right coronary bare metal stents EXAMINATION OF PARTICIPANT I N CLINICAL TRIAL - HORIZONS 08/19/2006 09/04/2009 Overview: Renamed Per Clinical Trials Billing Project. [facility] AMI clinical trial 2004- 0264 Single blind trial comparing heparin and IIB/IIIA with bivalirudin, and Taxus vs bare metal stent. Patient Follow-up for 5 years Laboratory Animal Facility Supervisor: Trent Verduzco [phone] [facility] Clinical Trial*[id number] 08/19/2006 09/08/2014 Overview: Renamed Per Clinical Trials Billing Project. [facility] AMI clinical trial 263 Single blind trial comparing heparin and IIB/IIIA with bivalirudin, and Taxus vs bare metal stent. Patient Follow-up for 5 years Laboratory Animal Facility Supervisor: Trent GeovannySarah Verduzco [phone] Menopause 08/29/2002 02/23/2017 LOC PRIM [id number] 05/29/200206/23 Dyslipidemia, goal to be determined 05/29/2002 [...] femur fracture end of September Admitted to [facility] 10/14-10/24/23 Treated non-operatively Now home following short [...] on CT scan of 03/19/2020 completed at [facility]. USaorta on 06/03/2020 suggesting a 3 cm AAA. 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 ABDOMINAL AORTIC ANEURYSM: Patient denies [...] lateral Vaginal atrophy Coronary artery disease involving [place] coronary artery of [place] heart without angina pectoris Anxiety state History [...] performed by Lore Richey DO at OR [facility] COLONOSCOPY, DIAGNOSTIC (RECTUM) N/A 07/03/2023 hemorrhoids/biopsies [...] LENS PROSTH Right REMOVE GALLBLADDER 1990s Cholecystectomy, [place] TENDON SHEATH INCISION, FINGER Bilateral 02/20/2020 TRIGGER FINGER RELEASE performed by Lore Richey DO at OR [facility] VAGINAL DELIVERY ONLY times 5 Social [...] Stability Do you currently live in a alf or have no steady place to sleep [...] OF SYSTEMS: Cardiovascular: Reports CAD with h/o [place] s/p PCI/Stenting. ICD placement as well. Currently [...] 69/23, ante verts 06/22/2021; Location of Study: [employer]; Modality: duplex; AAA measures 3.1 cm in greatest transverse dimension. 06/03/2020; Location of Study: [employer]; Modality: duplex; AAA measures 3.0 cm in greatest transverse dimension. 03/19/2020 CT ([place]): 2.8 cm infrarenal aorta CARDIAC STUDIES: Device [...] evaluated Echocardiogram report reviewed dated 06/29/2023 at [facility]: Ejection fraction 60 to 65%. [...] venous thromboembolic disease. ICM, s/p inferior posterior [place] 08/2006, s/p PCI to RCA and 4 [...] PA-C Section of Vascular and Endovascular Surgery [address] [address] I have reviewed the advanced [...] demonstrate a poor result post angioplasty. The [facility] Vascular Surgery Angiography and Endovascular Procedures Booklet was given to the patient. Albin Marr MD Section of Vascular and [place] [address] [phone] documented in this encounter Nursing Notes * Elsie Connor CMA - 12/27/2023 9:55 AM EDT Reviewed the option of transferring scripts to [facility] pharmacy with patient and / or family. Patient stated no change in medications. Elsie Connor CMA documented in this encounter Plan of Treatment Upcoming Encounters Date Type Department Care Team (Late st Contact Info) Description 12/27/2023 4:00 PM EDT Home Visit [place], [facility] [address] [facility] [place] [address] Areli Washburn, LISA [address] [place] [address] 01/25/2024 12:30 PM EDT Home Visit [place], [facility] [address] [facility] [place] [address] Areli Washburn RN 132 [facility] [place] [address] 01/31/2024 1:00 PM EDT Imaging Vascular Lab, [facility] [address] [place] [address] 01/31/2024 2:00 PM EDT Imaging Vascular Lab, [address], [address] [place] [address] 01/31/2024 3:00 PM EDT Imaging Vascular Lab, [address], [address] [address] 02/07/2024 10:50 AM EDT Office Visit Vascular Surgery, [address] [place] [address] Albin Marr MD [address] [place] [address] 03/07/2024 10:00 AM EDT Office Visit Pharmacy, [address] [place] [address] [facility] [address] [place] [address] 03/22/2024 10:30 AM EDT Cardiac Studies Cardiology, [facility] [address] [place] [address] [place] [address] [place] [address] 06/21/2024 9:30 AM EST Office Visit Cardiology, [facility] [address] [place] [address] Joshua Henson PA-C [address] [place] [address] 06/25/2024 11:00 AM EST Office Visit Family Practice [facility] [address] [facility] [place], [place] [address] Erica Marsh MD [address] [facility] [place] [address] Scheduled Orders Name Type Priority Associated Diagnoses Orde r Schedule VASC ANKLE BRACHIAL INDICES WITHOUT PPG (PAD) Medical Imaging Routine PVD (peripheral vascular disease) with claudication (HCC) Cigarette smoker Dyslipidemia, goal LDL below 70 Ordered: 12/27/2023 VASC AORTIC DUPLEX EVAL-COMPLETE Medical Imaging Routine PVD (peripheral vascular disease) with claudication (HCC) Cigarette smoker Dyslipidemia, goal LDL below 70 Ordered: 12/27/2023 VASC NARRAGANSETT ART DUP BILAT LE Medical Imaging Routine PVD (peripheral vascular disease) with claudication (HCC) Cigarette smoker Dyslipidemia, goal LDL below 70 Ordered: 12/27/2023 Scheduled Procedures Name Priority Associated Diagnoses Date/Ti me COLONOSCOPY FLEXIBLE PROXIMA L DIAGNOSTIC Recall History of colonic polyps Health Maintenance Due Date Last Done Comments DISCUSS TOBACCO CESSATION (REFER TO SMARTSET #7212) 1945 Alpha-1 Antitrypsin 1965 Diabetic Foot Exam 1965 Adult Wellness Visit 2013 DXA Scan 09/04/2016 09/04/2013, 09/04/2013 *ADVANCE DIRECTIVE NOT ON FILE 06/09/2019 COVID-19 Vaccine ( season) 2023 11/12/2020, 10/01/2020 Depression Screening 06/02/2023 06/02/2022 Diabetic Eye Exam 07/21/2023 07/20/2022 Influenza Vaccine (FLU shot) (#1) 2024 02/27/2023, 02/27/2023, 02/21/2022, Additional history exists Albumin/Creatinine Ratio 03/02/2024 023, 02/21/2022, 07/23/2019 CKD PHOS USE SMARTSET 84468 03/02/202402/19, 10/07/2022, 02/21/2022, Additional history exists GFR 04/27/2024 10/27/2023, 08/20, 07/18/2023, Additional history exists HbA1c 05/31/2024 11/29/2023, 02/19, 01/15/2007, Additional history exists CKD HGB USE SMARTSET 82258 10/26/202410/26, 10/27/2023, 09/07/2023, Additional history exists O2 [...] Power of Attor zee? No Care Teams Security Systems Administrator Relationship Specialty Start Date End Date Roman Ennis III, MD [address] [place] [address] PCP - General Family Medicine 11/22/23 documented as of this encounter
--- OUTSIDE RECORDS SUMMARY | 2024-04-28 23:00 | External Medical Summary | Summary of Care ---
Author Name Unknown Organization [facility] Address [address] [place] [address] Phone [phone] Care Team Providers Care Fagoting Machine Operator Name Role Phone Loli NORWOOD MD, Roman Barraza Primary Care Provider [phone] Reason for Visit * Reason Onset Date Comments Surgery 10/19/2023 Encounter Details Date Type Department Care Team (Late st Contact Info) Description 10/19/2023 Telephone Vascular Surg [facility] [address] [place] [address] Albin Marr MD [address] [place] [address] Surgery Allergies Active Allergy Reactions Criticality Noted Date Comments Isosorbide Mononitrate 12/24/2007 Severe headaches Nsaids 05/29/2002 Tramadol Hcl Nausea/vomiting Low 01/09/2008 UGI distress documented as of this encounter (statuses as of 12/19/2023) Medications Medication Sig Dispensed Refills Start Date End Date Status Furosemide 40 MG Oral Tablet (Lasix) Take 1 Tablet by mouth daily AND 0.5 Tablets daily at noon. 135 Tablet 3 3 Active Nystatin 842988 UNIT/GM External Powder (Nystop) Apply topically to [...] as of this encounter (statuses as of 12/19/2023) Active Problems Problem Noted Date Diagnosed Date [...] Assessment & Plan: Followed by [facility] cardiology History of colonic polyps 09/04/2012 Overview: 09/01/2012: adenoma, repeat in 3 years ICD-10 update of inactive term Dyslipidemia, goal LDL below 70 05/07/2009 Overview: Per Lipid Taxonomy. OLD MYOCARDIAL INFARCT 12/11/2008 Overview: Modified by Acute [place] Protocol #5. [facility] right coronary bare metal stents S/P angioplasty with stent 09/07/2006 History of tobacco use documented as of this encounter (statuses as of 12/19/2023) Resolved Problems Problem Noted Date Diagnosed Date [...] 08/03/2023 Overview: Per CKD protocol Atherosclerosis of [place] co ronary artery without [...] for Patients with Cardiovascular Disease Project #: [id number] PI: Peyton Conn MD [phone] GENOMICS CARDIO RESEARCH OTHER*[id number] 01/15/2007 06/28/2016 Overview: Renamed Per Clinical Trials Billing Project. Study Title: Genomic Markers for Patients with Cardiovascular Disease Project #: [id number] PI: Peyton Conn MD [phone] LV (left ventricular) mural thrombus 10/30/2006 12/28/2017 Tobacco use disorder 09/07/2006 010 Acute inferior myocardial infarction 08/19/2006 12/11/2008 Overview: Modified by Acute [place] Protocol #5. [facility] right coronary bare metal stents EXAMINATION OF PARTICIPANT I N CLINICAL TRIAL - HORIZONS 08/19/2006 09/04/2009 Overview: Renamed Per Clinical Trials Billing Project. [facility] AMI clinical trial 263 Single blind trial comparing heparin and IIB/IIIA with bivalirudin, and Taxus vs bare metal stent. Patient Follow-up for 5 years Geophysical Data Technician: Trent Verduzco [phone] [facility] Clinical Trial*[id number] 08/19/2006 09/08/2014 Overview: Renamed Per Clinical Trials Billing Project. [facility] AMI clinical trial 263 Single blind trial comparing heparin and IIB/IIIA with bivalirudin, and Taxus vs bare metal stent. Patient Follow-up for 5 years Geophysical Data Technician: Trent Verduzco [phone] Menopause 08/29/2002 02/23/2017 LOC PRIM [id number] 05/29/200206/23 Dyslipidemia, goal to be determined 05/29/2002 05/07/2009 Overview: Per Lipid Taxonomy. 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 Agreeable to come in 12/[address] Marr schedule (ok per [place]). Please add appt for around 10am that day please Thanks OPAL [place] * Telephone Encounter - Joey Morales OSA - 12/15/2023 4:04 PM EDT Lm for pt to call back Will be ok to overbook 12/26 Dr Marr at per Janusz and OPAL Barbosa 12/15/2023 4:05 PM * Telephone Encounter - Janusz Louis CRNP - 12/15/2023 6:27 AM EDT Please see prior telephone encounter: Please schedule a return visit with Dr. Marr at [facility] on 12/27/23, at which time patient willbe evaluated for re-scheduling surgery. * Telephone Encounter - Joey Morales OSA - 12/14/2023 5:16 PM EDT Spoke to pt. She is ready to proceed with surgery. Is healing well after hip break. She saw her dish cloth inspector today and was cleared Please advise on surgery and call pt Per PT, Nadiya or Maurice Tong are to have NO information nor make any decisions on her behalf OPAL [place] * Telephone Encounter - Joey Morales OSA - 11/09/2023 4:17 PM EDT Spoke to Nadiya about pt status and a 6 week appt Pt is having home health come in, however an issue has developed with pt defibrolator and she needsseen by her dish cloth inspector Nadiya said they are overwhelmed with everything going on and did not wish to schedule an appt withvascular and asked for a call back in about 4-6 weeks, or if pt doing better, Nadiya would call OPAL Jackson\\ * Telephone Encounter - Rosalva Jorge PA-C - 10/19/2023 3:26 PM EDT Please schedule office visit in 6 weeks * Telephone Encounter - Artis Smith OSA - 10/19/2023 2:54 PM EDT Surgery and post op canceled * Telephone Encounter - Rachana Christina CRNP - 10/19/2023 2:42 PM EDT Ok, Perhaps we should arrange an office visit 6 weeks out to see how the patient is doing and rebook surgery at . Please cancel his 11/22/23 appt, and please cancel surgery. * Telephone Encounter - Joey Morales OSA - 10/19/2023 1:57 PM EDT Pt daughter in law called Pt in [facility] for broken hip. Being taken for 4-6 weeks of therapy after discharge Have to cx surgery with Dr Marr and followup Nadiya would like a callback week of October about r/s procedure Thanks OPAL Jackson documented in this encounter Plan of Treatment Upcoming Encounters Date Type Department Care Team (Late st Contact Info) Description 12/22/2023 1:00 PM EDT Office Visit [facility] M[place] Hunt [address] [facility] [place] [address] Erica Marsh MD [address] [facility] [place] [address] 12/27/2023 4:00 PM EDT [facility] Visit [facility], [facility] [address] [place] [address] Areli Washburn, RN [address] [place] [address] 03/07/2024 10:00 AM EDT Office Visit Pharmacy, [facility] 132 [facility] [place] [address] [facility] 132 [facility] [place] [address] 03/22/2024 10:30 AM EDT Cardiac Studies Cardiology, [facility] 132 [facility] [place] [address] [facility] [address] [facility] [place] [address] 06/20/2024 9:30 AM EST Office Visit Cardiology, [facility] [address] [facility] [place] [address] Joshua Henson PA-C 132 [facility] [place] [address] 06/25/2024 11:00 AM EST Office Visit Family Practice [facility] [address] [place] [address] Erica Marsh MD [address] [place] [address] Scheduled Procedures Name Priority Associated Diagnoses Date/Ti [...] 06/02/2023 06/02/2022 Diabetic Eye Exam 07/21/2023 07/20/2022 *COPD SEVERITY VERIFIED BY PFT 12/03/2023 *CXR OR CT FOR COPD EVER 12/03/2023 Influenza Vaccine (FLU shot) (#1) 2024 02/27/2023, 02/27/2023, 02/21/2022, Additional history exists Albumin/Creatinine Ratio 03/02/2024 023, 02/21/2022, 07/23/2019 CKD PHOS USE SMARTSET 04978 03/02/202402/19, 10/07/2022, 02/21/2022, Additional history exists GFR 04/27/2024 10/27/2023, 08/20, 07/18/2023, Additional history exists HbA1c 05/31/2024 11/29/2023, 02/19, 01/15/2007, Additional history exists CKD HGB USE SMARTSET 13172 10/26/202410/26, 10/27/2023, 09/07/2023, Additional history exists O2 ASSESSMENT COMPLETED IN PAST YEAR FOR COPD 12/13/2024 12/14/2023 Colonoscopy 07/03/2028 07/03/2023, 08/28/2012 DTaP,Tdap,and Td Vaccines [...] Power of Attor zee? No Care Teams Fagoting Machine Operator Relationship Specialty Start Date End Date Roman Ennis III, MD [address] [facility] [place] [address] PCP - General Family Medicine 11/22/23 documented as of this encounter
--- OUTSIDE RECORDS SUMMARY | 2024-04-28 23:00 | External Medical Summary | Summary of Care ---
Author Name Unknown Organization [facility] Address [address] [place] [address] Phone [phone] Care Team Providers Care Lining Caser Name Role Phone Loli NORWOOD MD, Roman Barraza Primary Care Provider [phone] Reason for Visit * Reason Onset Date Comments Surgery 10/19/2023 Encounter Details Date Type Department Care Team (Late st Contact Info) Description 10/19/2023 Telephone Vascular [facility]urg [facility] [address] [place] [address] Albin Marr MD [address] [place] [address] Surgery Allergies Active Allergy Reactions Criticality Noted Date Comments Isosorbide Mononitrate 12/24/2007 Severe headaches Nsaids 05/29/2002 Tramadol Hcl Nausea/vomiting Low 01/09/2008 UGI distress documented as of this encounter (statuses as of 12/15/2023) Medications Medication Sig Dispensed Refills Start Date End Date Status Furosemide 40 MG Oral Tablet (Lasix) Take 1 Tablet by mouth daily AND 0.5 Tablets daily at noon. 135 Tablet 3 3 Active Nystatin 811299 UNIT/GM External Powder (Nystop) Apply topically to [...] as of this encounter (statuses as of 12/15/2023) Active Problems Problem Noted Date Diagnosed Date [...] cardiomyopathy 07/18/2018 Coronary artery disease invo lving [place] coronary artery of [place] heart without angina pectoris 05/08/2018 Anxiety state [...] MYOCARDIAL INFARCT 12/11/2008 Overview: Modified by Acute [place] Protocol #5. [facility] right coronary bare metal stents S/P angioplasty with stent 09/07/2006 History of tobacco use documented as of this encounter (statuses as of 12/15/2023) Resolved Problems Problem Noted Date Diagnosed Date [...] 08/03/2023 Overview: Per CKD protocol Atherosclerosis of [place] co ronary artery without angina pectoris 07/28/2023 [...] for Patients with Cardiovascular Disease Project #: [id number] PI: Peyton Conn MD [phone] GENOMICS CARDIO RESEARCH OTHER*[id number] 01/15/2007 06/28/2016 Overview: Renamed Per Clinical Trials Billing Project. Study Title: Genomic Markers for Patients with Cardiovascular Disease Project #: [id number] PI: Peyton Conn MD [phone] LV (left ventricular) mural thrombus 10/30/2006 12/28/2017 Tobacco use disorder 09/07/2006 010 Acute inferior myocardial infarction 08/19/2006 12/11/2008 Overview: Modified by Acute [place] Protocol #5. [facility] right coronary bare metal stents EXAMINATION OF PARTICIPANT I N CLINICAL TRIAL - HORIZONS 08/19/2006 09/04/2009 Overview: Renamed Per Clinical Trials Billing Project. [facility] AMI clinical trial 263 Single blind trial comparing heparin and IIB/IIIA with bivalirudin, and Taxus vs bare metal stent. Patient Follow-up for 5 years Aquaculture And Fisheries Professor: Trent Verduzco [phone] [facility] Clinical Trial*[id number] 08/19/2006 09/08/2014 Overview: Renamed Per Clinical Trials Billing Project. [facility] AMI clinical trial 263 Single blind trial comparing heparin and IIB/IIIA with bivalirudin, and Taxus vs bare metal stent. Patient Follow-up for 5 years Aquaculture And Fisheries Professor: Trent Verduzco [phone] Menopause 08/29/2002 02/23/2017 LOC PRIM [id number] 05/29/200206/23 Dyslipidemia, goal to be determined 05/29/2002 05/07/2009 Overview: Per Lipid Taxonomy. 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 Marr at [facility] on 12/27/23, at which time patient willbe evaluated for re-scheduling surgery. * Telephone Encounter - Joey Morales OSA - 12/14/2023 5:16 PM EDT Spoke to pt. She is ready to proceed with surgery. Is healing well after hip break. She saw her tool supervisor today and was cleared Please advise on [...] pt defibrolator and she needsseen by her tool supervisor Nadiya said they are overwhelmed with everything [...] Pt daughter in law called Pt in [facility] for broken hip. Being taken for 4-6 weeks of therapy after discharge Have to cx surgery with Dr Marr and followup Nadiya would like a callback October about r/s procedure Thanks OPAL Jackson documented in this encounter Plan of Treatment Upcoming Encounters Date Type Department Care Team (Late st Contact Info) Description 12/22/2023 1:00 PM EDT Office Visit Family Practice [facility] [address] [facility] [place] [address] Erica Marsh MD [address] [facility] [place] [address] 12/27/2023 4:00 PM EDT Home Visit [facility] [place], [facility] [place] [address] Areli Washburn, LISA [address] [place] [address] 03/07/2024 10:00 AM EDT Office Visit Pharmacy, [facility] [place] [address] [place], [facility] [address] [facility] [place] [address] 03/22/2024 10:30 AM EDT Cardiac Studies Cardiology, [facility] [address] [facility] [place] [address] [place], [facility] [address] [facility] [place] [address] 06/20/2024 9:30 AM EST Office Visit Cardiology, [facility] [address] [facility] [place] [address] Joshua Henson PA-C [facility] [place] [address] 06/25/2024 11:00 AM EST Office Visit Family Practice [facility] [address] [facility] [place] [address] Erica Marsh MD [address] [facility] [place], [place] [address] Scheduled Procedures Name Priority Associated Diagnoses Date/Ti [...] 023, 02/21/2022, 07/23/2019 CKD PHOS USE SMARTSET 42530 03/02/202402/19, 10/07/2022, 02/21/2022, Additional history exists GFR 04/27/2024 10/27/2023, 08/20, 07/18/2023, Additional history exists HbA1c 05/31/2024 11/29/2023, 02/19, 01/15/2007, Additional history exists CKD HGB USE SMARTSET 39696 10/26/202410/26, 10/27/2023, 09/07/2023, Additional history exists O2 ASSESSMENT COMPLETED IN PAST YEAR FOR COPD 12/13/2024 12/14/2023 Colonoscopy 07/03/2028 07/03/2023, 08/28/2012 DTaP,Tdap,and Td Vaccines (4 - Td or Tdap) 06/02/2032 06/02/2022, 02/11/2011, 05/22/1995 Pneumococcal Vaccine: 65+ Years Completed 02/23/2017, 10/22/2014, 02/26/2007 Hepatitis B Vaccine Completed 04/02/2018, 09/29/2017, 07/24/2017 Zoster Vaccines Completed 01/20/2020, 07/23/2019 RETIRED - COLONOSCOPY-EVERY 5 YRS AGES 18-100 Discontinued 07/03/2023, 08/28/2012 *BASELINE EKG FOR HTN Completed 12/14/2023 , 01/01/2020, 08/09/2013, Additional history exists HPV (Gardasil) Vaccine Aged [...] Power of Attor zee? No Care Teams Lining Caser Relationship Specialty Start Date End Date Roman Ennis III, MD [address] [place] [address] PCP - General Family Medicine 11/22/23 documented as of this encounter
--- OUTSIDE RECORDS SUMMARY | 2024-04-28 23:00 | External Medical Summary | Summary of Care ---
Author Name Unknown Organization [facility] Address [address] [facility] [place] [address] Phone [phone] Care Team Providers Care Watchmaker Apprentice Name Role Phone Loli NORWOOD MD, Roman Barraza Primary Care Provider Encounter Details Date Type Department Care Team (Late st Contact Info) Description 12/26/2023 Population Health External Data Unspecified Department Allergies Active Allergy Reactions Criticality Noted Date Comments Isosorbide Mononitrate 12/24/2007 Severe headaches Nsaids 05/29/2002 Tramadol Hcl Nausea/vomiting Low 01/09/2008 UGI distress documented as of this encounter (statuses as of 12/26/2023) Medications Medication Sig Dispensed Refills Start Date End Date Status Furosemide 40 MG Oral Tablet (Lasix) Take 1 Tablet by mouth daily AND 0.5 Tablets daily at noon. 135 Tablet 3 03/23/2023 Active Nystatin 317525 UNIT/GM External Powder (Nystop) Apply topically to [...] Tablet 11/02/2023 Active Vitamin D3 250 MCG (15830 UT) Oral Tablet Take by mouth. Active [...] as of this encounter (statuses as of 12/26/2023) Active Problems Problem Noted Date Diagnosed Date [...] cardiomyopathy 07/18/2018 Coronary artery disease invo lving [place] coronary artery of [place] heart without angina pectoris 05/08/2018 Anxiety state [...] & Plan: [place] [facility] [place] History of colonic polyps 09/04/2012 Overview: 09/01/2012: adenoma, repeat in 3 years ICD-10 update of inactive term Dyslipidemia, goal LDL below 70 05/07/2009 Overview: Per Lipid Taxonomy. OLD MYOCARDIAL INFARCT 12/11/2008 Overview: Modified by Acute [place] Protocol #5. [facility] [place] coronary bare metal stents S/P angioplasty with stent 09/07/2006 History of tobacco use documented as of this encounter (statuses as of 12/26/2023) Resolved Problems Problem Noted Date Diagnosed Date [...] 08/03/2023 Overview: Per CKD protocol Atherosclerosis of [place] co ronary artery without angina pectoris 07/28/2023 [...] for Patients with Cardiovascular Disease Project #: [id number] PI: Peyton Conn MD [phone] GENOMICS CARDIO RESEARCH OTHER*[id number] 01/15/2007 06/28/2016 Overview: Renamed Per Clinical Trials Billing Project. Study Title: Genomic Markers for Patients with Cardiovascular Disease Project #: [id number] PI: Peyton Conn MD [phone] LV (left ventricular) mural thrombus 10/30/2006 12/28/2017 Tobacco use disorder 09/07/2006 010 Acute inferior myocardial infarction 08/19/2006 12/11/2008 Overview: Modified by Acute [place] Protocol #5. [facility] [place] coronary bare metal stents EXAMINATION OF PARTICIPANT I N CLINICAL TRIAL - HORIZONS 08/19/2006 09/04/2009 Overview: Renamed Per Clinical Trials Billing Project. [facility] AMI clinical trial 263 Single blind trial comparing heparin and IIB/IIIA with bivalirudin, and Taxus vs bare metal stent. Patient Follow-up for 5 years Critical Systems Technician: Trent Verduzco [phone] [facility] Clinical Trial*[id number] 08/19/2006 09/08/2014 Overview: Renamed Per Clinical Trials Billing Project. [facility] AMI clinical trial 263 Single blind trial comparing heparin and IIB/IIIA with bivalirudin, and Taxus vs bare metal stent. Patient Follow-up for 5 years Critical Systems Technician: Trent Verduzco [phone] Menopause 08/29/2002 02/23/2017 LOC PRIM [id number] 05/29/200206/23 Dyslipidemia, goal to be determined 05/29/2002 05/07/2009 Overview: Per Lipid Taxonomy. 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 02/23/2017 documented as of this encounter (statuses as of 12/26/2023) Immunizations Name Administration Dates Next Due COVID-19 [...] 10:10 AM EDT Office Visit Vascular Surgery, [facility] [address] [facility] [place] [address] Albin Marr MD [address] [place] [address] 12/27/2023 4:00 PM EDT [facility] [address] [facility] [place] [address] Areli Washburn RN 132 [facility] [place] [address] 03/07/2024 10:00 AM EDT Office Visit Pharmacy, [facility] [address] [facility] [place] [address] [facility] [address] [place] [address] 03/22/2024 10:30 AM EDT Cardiac Studies Cardiology, [facility] [address] [facility] [place] [address] [facility] [address] [facility] [place] [address] 06/21/2024 9:30 AM EST Office Visit Cardiology, [facility] [address] [place] [address] Joshua Henson PAOlivaC [address] [place] [address] 06/25/2024 11:00 AM EST Office Visit Family Practice [facility] [address] [facility] [place] [address] Erica Marsh MD [address] [facility] [place] [address] Scheduled Procedures Name Priority Associated Diagnoses Date/Ti [...] 023, 02/21/2022, 07/23/2019 CKD PHOS USE SMARTSET 19742 03/02/202402/19, 10/07/2022, 02/21/2022, Additional history exists GFR 04/27/2024 10/27/2023, 08/20, 07/18/2023, Additional history exists HbA1c 05/31/2024 11/29/2023, 02/19, 01/15/2007, Additional history exists CKD HGB USE SMARTSET 16779 10/26/202410/264, 10/27/2023, 09/07/2023, Additional history exists O2 ASSESSMENT [...] Power of Attor zee? No Care Teams Watchmaker Apprentice Relationship Specialty Start Date End Date Roman Ennis III, MD [address] [facility] [place] [address] PCP - General Family Medicine 11/22/23 documented as of this encounter
--- OUTSIDE RECORDS SUMMARY | 2024-04-28 23:00 | External Medical Summary | Summary of Care ---
Author Name Unknown Organization [facility] Address [address] [facility] [place] [address] Phone [phone] Care Team Providers Care Power Tong Operator Name Role Phone Loli NORWOOD MD, Roman Barraza Primary Care Provider [phone] Reason for Visit * Reason Comments eRx-Medication Refill Encounter Details Date Type Department Care Team (Late st Contact Info) Description 12/19/2023 Refill Family Medicine [address] [phone] Bear Cabrera MD [address] [place] [address] [place] [address] Allergies Active Allergy Reactions Criticality Noted Date Comments Isosorbide Mononitrate 12/24/2007 Severe headaches Nsaids 05/29/2002 Tramadol Hcl Nausea/vomiting Low 01/09/2008 UGI distress documented as of this encounter (statuses as of 12/20/2023) Medications Medication Sig Dispensed Refills Start Date End Date Status Furosemide 40 MG Oral Tablet (Lasix) Take 1 Tablet by mouth daily AND 0.5 Tablets daily at noon. 135 Tablet 3 3 Active Nystatin 676635 UNIT/GM External Powder (Nystop) Apply topically to [...] maximum THREE doses 25 Tablet 4 Active Additional Information Patient not taking.Reported on 12/14/2023 Ondansetron HCl 4 MG Oral Tablet (Zofran)Indications [...] Tablet 4 Active Vitamin D3 250 MCG (79197 UT) Oral Tablet Take by mouth. Active oxyCODONE HCl 5 MG Oral Tablet (Oxy IR)Indications:Label Operator fernando pain syndrome Take 1 Tablet by mouth every 6 hours as needed for Pain, Severe. 100 Tablet 4 Active Gabapentin 300 MG Oral Capsule (Neurontin) Take 1 Capsule by mouth daily AND 2 Capsules at bedtime. 90 Capsule 11 4 Active Atorvastatin Calcium 20 MG Oral Tablet (Lipitor) TAKE ONE TABLET AT BEDTIME 30 Tablet 5 4 Active Atorvastatin Calcium 20 MG Oral Tablet (Lipitor) Take 1 Tablet by mouth every night at bedtime. 30 Tablet 4 12/20/19 24 Discontinued documented as of this encounter (statuses as of 12/20/2023) Active Problems Problem Noted Date Diagnosed Date [...] cardiomyopathy 07/18/2018 Coronary artery disease invo lving [place] coronary artery of red [place] heart without angina pectoris 05/08/2018 Anxiety state 05/08/2018 ADVANCE DIRECTIVE INFORMATION 03/23/2018 Overview: No, Advance Directive brochure offered , patient declined. Incomplete uterovaginal prolapse 09/29/2017 Cystocele, lateral 09/29/2017 Vaginal atrophy 09/29/2017 Hepatitis C antibody test positive 05/09/2017 Overview: HCV treated; SVR Confirmed 03/05/2018 Controlled substance agreement signed 02/23/2017 Biventricular implantable ca rdioverter-defibrillator in situ 08/07/2013 Last Assessment & Plan: [place] [facility] [place] History of colonic polyps 09/04/2012 Overview: 09/01/2012: adenoma, repeat in 3 years ICD-10 update of inactive term Dyslipidemia, goal LDL below 70 05/07/2009 Overview: Per Lipid Taxonomy. OLD MYOCARDIAL INFARCT 12/11/2008 Overview: Modified by Acute [place] Protocol #5. [facility] right coronary bare metal stents S/P angioplasty with stent 09/07/2006 History of tobacco use documented as of this encounter (statuses as of 12/20/2023) Resolved Problems Problem Noted Date Diagnosed Date [...] 08/03/2023 Overview: Per CKD protocol Atherosclerosis of [place] co ronary artery without angina pectoris 07/28/2023 [...] for Patients with Cardiovascular Disease Project #: [id number] PI: Peyton Conn MD [phone] GENOMICS CARDIO RESEARCH OTHER*[id number] 01/15/2007 06/28/2016 Overview: Renamed Per Clinical Trials Billing Project. Study Title: Genomic Markers for Patients with Cardiovascular Disease Project #: [id number] PI: Peyton Conn MD [phone] LV (left ventricular) mural thrombus 10/30/2006 12/28/2017 Tobacco use disorder 09/07/2006 010 Acute inferior myocardial infarction 08/19/2006 12/11/2008 Overview: Modified by Acute [place] Protocol #5. [facility] right coronary bare metal stents EXAMINATION OF PARTICIPANT I N CLINICAL TRIAL - HORIZONS 08/19/2006 09/04/2009 Overview: Renamed Per Clinical Trials Billing Project. [facility] AMI clinical trial 2004- 0264 Single blind trial comparing heparin and IIB/IIIA with bivalirudin, and Taxus vs bare metal stent. Patient Follow-up for 5 years Hot Car Charger: Trent Verduzco [phone] [facility] Clinical Trial*[id number] 08/19/2006 09/08/2014 Overview: Renamed Per Clinical Trials Billing Project. [facility] AMI clinical trial 263 Single blind trial comparing heparin and IIB/IIIA with bivalirudin, and Taxus vs bare metal stent. Patient Follow-up for 5 years Hot Car Charger: Trent Verduzco [phone] Menopause 08/29/2002 02/23/2017 LOC PRIM [id number] 05/29/200206/23 Dyslipidemia, goal to be determined 05/29/2002 05/07/2009 Overview: Per Lipid Taxonomy. 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 02/23/2017 documented as of this encounter (statuses as of 12/20/2023) Immunizations Name Administration Dates Next Due COVID-19 [...] Telephone Encounter - Beto Cosby DO - 12/20/2023 2:02 PM EDTSigned Prescriptions: Disp Refills Atorvastatin Calcium 20 MG Oral Tablet (Li*30 Tab*5 Sig: TAKE ONE TABLET AT BEDTIME Authorizing Provider: BETO COSBY * Telephone Encounter - Vineet Landa [facility] - 12/20/2023 9:21 AM EDT Pending Prescriptions: Disp Refills Atorvastatin Calcium 20 MG Oral Tablet (Li*30 Tab*5 Sig: TAKE ONE TABLET AT BEDTIME * Telephone Encounter - LcmyraVineet [facility] - 12/20/2023 9:19 AM EDT One month supply given for discharge from [facility] on 11/02/23. Please approve if you wish to continue. Pending Prescriptions: Disp Refills Atorvastatin Calcium 20 MG Oral Tablet (L*30 Tab*0 Sig: TAKE ONE TABLET AT BEDTIME Last Visit: 11/10/2023 (in office), Visit date not found (telemedicine) Next Visit: Visit date not found If no future appointments scheduled, and last appointment is greater than a year ago, please schedule patient for a follow-up appointment Last date the medication was ordered: 11/02/23 Pharmacy: [facility], [address] [place] Is this request for a controlled substance? No Urine Drug Screen: Results for orders placed [...] 1:00 PM EDT Office Visit Family Practice [facility] [address] [place] [address] Erica Marsh MD [address] [place] [address] 12/27/2023 10:10 AM EDT Office Visit Vascular Surgery, [facility] [address] [facility] [place] [address] Albin Marr MD [address] [place] [address] 12/27/2023 4:00 PM EDT [facility] Visit [facility] [place], [facility] 132 [facility] [place] [address] Areli Washburn RN 132 [facility] [place] [address] 03/07/2024 10:00 AM EDT Office Visit Pharmacy, [facility] [address] [facility] [place] [address] [facility] [place] [address] 03/22/2024 10:30 AM EDT Cardiac Studies Cardiology, [facility] [address] [facility] [place] [address] Dione Pacer [facility] [address] [facility] [place] [address] 06/21/2024 9:30 AM EST Office Visit Cardiology, [facility] [address] [facility] [place] [address] Joshua Henson PA-C [address] [facility] [place] [address] 06/25/2024 11:00 AM EST Office Visit Family Practice [facility] [address] [place] [address] Erica Marsh MD [address] [facility] [place], [place] [address] Scheduled Procedures Name Priority Associated Diagnoses Date/Ti [...] 023, 02/21/2022, 07/23/2019 CKD PHOS USE SMARTSET 72098 03/02/202402/19, 10/07/2022, 02/21/2022, Additional history exists GFR 04/27/2024 10/27/2023, 08/20, 07/18/2023, Additional history exists HbA1c 05/31/2024 11/29/2023, 02/19, 01/15/2007, Additional history exists CKD HGB USE SMARTSET 08166 10/26/202410/26, 10/27/2023, 09/07/2023, Additional history exists O2 [...] Power of Attor zee? No Care Teams Power Tong Operator Relationship Specialty Start Date End Date Roman Ennis III, MD [address] [facility] [place] [address] PCP - General Family Medicine 11/22/23 documented as of this encounter
--- OUTSIDE RECORDS SUMMARY | 2024-04-28 23:00 | External Medical Summary | Summary of Care ---
Author Name Unknown Organization [facility] Address [address] [place] [address] Phone [phone] Care Team Providers Care Indexer Name Role Phone Loli NORWOOD MD, Roman Barraza Primary Care Provider [phone] Reason for Visit * Reason Onset Date Comments Surgery 10/19/2023 Encounter Details Date Type Department Care Team (Late st Contact Info) Description 10/19/2023 Telephone Vascular Surg [facility] [address] [place] [address] Albin Marr MD [address] [place] [address] Surgery Allergies Active Allergy Reactions [...] noon. 135 Tablet 3 3 Active Nystatin 209518 UNIT/GM External Powder (Nystop) Apply topically to [...] & Plan: Followed by [facility] cardiology History of colonic polyps 09/04/2012 Overview: 09/01/2012: adenoma, repeat in 3 years ICD-10 update of inactive term Dyslipidemia, goal LDL below 70 05/07/2009 Overview: Per Lipid Taxonomy. OLD MYOCARDIAL INFARCT 12/11/2008 Overview: Modified by Acute [place] Protocol #5. [facility] [...] 08/03/2023 Overview: Per CKD protocol Atherosclerosis of [place] co ronary artery without [...] for Patients with Cardiovascular Disease Project #: [id number] PI: Peyton Conn MD [phone] GENOMICS CARDIO RESEARCH OTHER*[id number] 01/15/2007 06/28/2016 Overview: Renamed Per Clinical Trials Billing Project. Study Title: Genomic Markers for Patients with Cardiovascular Disease Project #: [id number] PI: Peyton Conn MD [phone] LV (left ventricular) mural thrombus 10/30/2006 12/28/2017 Tobacco use disorder 09/07/2006 010 Acute inferior myocardial infarction 08/19/2006 12/11/2008 Overview: Modified by Acute [place] Protocol #5. [facility] right coronary bare metal stents EXAMINATION OF PARTICIPANT I N CLINICAL TRIAL - HORIZONS 08/19/2006 09/04/2009 Overview: Renamed Per Clinical Trials Billing Project. [facility] AMI clinical trial 263 Single blind trial comparing heparin and IIB/IIIA with bivalirudin, and Taxus vs bare metal stent. Patient Follow-up for 5 years Senior Oracle Database Developer: Trent Verduzco [phone] [facility] Clinical Trial*[id number] 08/19/2006 09/08/2014 Overview: Renamed Per Clinical Trials Billing Project. [facility] AMI clinical trial 263 Single blind trial comparing heparin and IIB/IIIA with bivalirudin, and Taxus vs bare metal stent. Patient Follow-up for 5 years Senior Oracle Database Developer: Trent Verduzco [phone] Menopause 08/29/2002 02/23/2017 LOC PRIM [id number] 05/29/200206/23 Dyslipidemia, goal to be determined 05/29/2002 [...] a return visit with Dr. Marr at [facility] on 12/27/23, at which time patient willbe evaluated for re-scheduling surgery. * Telephone Encounter - Joey Morales OSA - 12/14/2023 5:16 PM EDT Spoke to pt. She is ready to proceed with surgery. Is healing well after hip break. She saw her equipment maintenance tech today and was cleared Please advise on [...] pt defibrolator and she needsseen by her equipment maintenance tech Nadiya said they are overwhelmed with everything [...] Pt daughter in law called Pt in [facility] for broken hip. Being taken for 4-6 weeks of therapy after discharge Have to cx surgery with Dr Marr and followup Nadiya would like a callback October about r/s procedure Thanks OPAL Jackson documented in this encounter Plan of Treatment Upcoming Encounters Date Type Department Care Team (Late st Contact Info) Description 12/22/2023 1:00 PM EDT Office Visit Family Practice [facility] [address] [facility] [place] [address] Erica Marsh MD [address] [facility] [place] [address] 12/27/2023 4:00 PM EDT Home Visit Elaine [facility] [place], [facility] [place] [address] Areli Washburn, LISA [address] [place] [address] 03/07/2024 10:00 AM EDT Office Visit Pharmacy, [facility] [place] [address] [place], Mtm [facility] [address] [facility] [address] 03/22/2024 10:30 AM EDT Cardiac Studies Cardiology, [facility] 132 [facility] [place] [address] [place], Pacer Clinic [facility] [address] [facility] [address] 06/20/2024 9:30 AM EST Office Visit Cardiology, [facility] [address] [facility] [place] [address] Joshua Henson PA-C [facility] [place] [address] 06/25/2024 11:00 AM EST Office Visit Family Practice [facility] [address] [facility] [place] [address] Erica Marsh MD [address] [facility] [place], [place] [address] Scheduled Procedures Name Priority Associated Diagnoses Date/Ti [...] 023, 02/21/2022, 07/23/2019 CKD PHOS USE SMARTSET 25303 03/02/202402/19, 10/07/2022, 02/21/2022, Additional history exists GFR 04/27/2024 10/27/2023, 08/20, 07/18/2023, Additional history exists HbA1c 05/31/2024 11/29/2023, 02/19, 01/15/2007, Additional history exists CKD HGB USE SMARTSET 02476 10/26/202410/26, 10/27/2023, 09/07/2023, Additional history exists O2 [...] Power of Attor zee? No Care Teams Indexer Relationship Specialty Start Date End Date Roman Ennis III, MD [address] [place] [address] PCP - General Family Medicine 11/22/23 documented as of this encounter
--- OUTSIDE RECORDS SUMMARY | 2024-04-28 23:00 | External Medical Summary | Summary of Care ---
Author Name Unknown Organization [facility] Address [address] [place] [address] Phone [phone] Care Team Providers Care Commercial Lines Assistant Name Role Phone Loli NORWOOD MD, Roman Barraza Primary Care Provider [phone] Reason for Visit * Reason Onset Date Comments Surgery 10/19/2023 Encounter Details Date Type Department Care Team (Late st Contact Info) Description 10/19/2023 Telephone Vascular Surg [facility] [address] [place] [address] Albin Marr MD [address] [place] [address] Surgery Allergies Active Allergy Reactions [...] noon. 135 Tablet 3 3 Active Nystatin 691861 UNIT/GM External Powder (Nystop) Apply topically to [...] cardiomyopathy 07/18/2018 Coronary artery disease invo lving [place] coronary artery of [place] heart without angina pectoris 05/08/2018 Anxiety state 05/08/2018 ADVANCE DIRECTIVE INFORMATION 03/23/2018 Overview: No, Advance Directive brochure offered , patient declined. Incomplete uterovaginal prolapse 09/29/2017 Cystocele, lateral 09/29/2017 Vaginal atrophy 09/29/2017 Hepatitis C antibody test positive 05/09/2017 Overview: HCV treated; SVR Confirmed 03/05/2018 Controlled substance agreement signed 02/23/2017 Biventricular implantable ca rdioverter-defibrillator in situ 08/07/2013 Last Assessment & Plan: Followed by [facility] cardiology History of colonic polyps 09/04/2012 Overview: 09/01/2012: adenoma, repeat in 3 years ICD-10 update of inactive term Dyslipidemia, goal LDL below 70 05/07/2009 Overview: Per Lipid Taxonomy. OLD MYOCARDIAL INFARCT 12/11/2008 Overview: Modified by Acute [place] Protocol #5. [facility] [...] 08/03/2023 Overview: Per CKD protocol Atherosclerosis of [place] co ronary artery without angina [...] for Patients with Cardiovascular Disease Project #: [id number] PI: Peyton Conn MD [phone] GENOMICS CARDIO RESEARCH OTHER*[id number] 01/15/2007 06/28/2016 Overview: Renamed Per Clinical Trials Billing Project. Study Title: Genomic Markers for Patients with Cardiovascular Disease Project #: [id number] PI: Peyton Conn MD [phone] LV (left ventricular) mural thrombus 10/30/2006 12/28/2017 Tobacco use disorder 09/07/2006 010 Acute inferior myocardial infarction 08/19/2006 12/11/2008 Overview: Modified by Acute [place] Protocol #5. [facility] right coronary bare metal stents EXAMINATION OF PARTICIPANT I N CLINICAL TRIAL - HORIZONS 08/19/2006 09/04/2009 Overview: Renamed Per Clinical Trials Billing Project. [facility] AMI clinical trial 263 Single blind trial comparing heparin and IIB/IIIA with bivalirudin, and Taxus vs bare metal stent. Patient Follow-up for 5 years Manufacturing Scheduler: Trent Verduzco [phone] [facility] Clinical Trial*[id number] 08/19/2006 09/08/2014 Overview: Renamed Per Clinical Trials Billing Project. [facility] AMI clinical trial 263 Single blind trial comparing heparin and IIB/IIIA with bivalirudin, and Taxus vs bare metal stent. Patient Follow-up for 5 years Manufacturing Scheduler: Trent Verduzco [phone] Menopause 08/29/2002 02/23/2017 LOC PRIM [id number] 05/29/200206/23 Dyslipidemia, goal to be determined 05/29/2002 [...] encounter Miscellaneous Notes * Telephone Encounter - Saumya Leon OSA - 12/20/2023 10:30 AM EDT Pt scheduled * Telephone Encounter - Joey Morales OSA - 12/19/2023 4:52 PM EDT Spoke with pt. [facility] (ok per [place]). [...] a return visit with Dr. Marr at [facility] on 12/27/23, at which time patient willbe evaluated for re-scheduling surgery. * Telephone Encounter - Joey Morales OSA - 12/14/2023 5:16 PM EDT Spoke to pt. She is ready to proceed with surgery. Is healing well after hip break. She saw her jukebox routeman today and was cleared Please advise on [...] pt defibrolator and she needsseen by her jukebox routeman Nadiya said they are overwhelmed with everything [...] Pt daughter in law called Pt in [facility] for broken hip. Being taken for 4-6 weeks of therapy after discharge Have to cx surgery with Dr Marr and followup Nadiya would like a callback week october about r/s procedure Thanks OPAL Jackson documented in this encounter Plan of Treatment Upcoming Encounters Date Type Department Care Team (Late st Contact Info) Description 12/22/2023 1:00 PM EDT Office Visit Family Practice [facility] [address] [facility] [place] [address] Erica Marsh MD 200 [facility] [place] [address] 12/27/2023 10:10 AM EDT Office Visit Vascular Surgery, [facility] [address] [facility] [place] [address] Albin Marr MD [address] [place] [address] 12/27/2023 4:00 PM EDT Home Visit [facility], [facility] [address] [place] [address] Areli Washburn RN 132 [facility] [place] [address] 03/07/2024 10:00 AM EDT Office Visit Pharmacy, [facility] [address] [facility] [place] [address] [facility] [place] [address] 03/22/2024 10:30 AM EDT Cardiac Studies Cardiology, [facility] [address] [facility] [place] [address] [facility] [place] [address] 06/20/2024 9:30 AM EST Office Visit Cardiology, [facility] [address] [place] [address] Joshua Henson PABo [address] [place] [address] 06/25/2024 11:00 AM EST Office Visit [facility] [address] [place] [address] Erica Marsh MD [address] [place] [address] Scheduled Procedures Name Priority Associated Diagnoses Date/Ti me COLONOSCOPY FLEXIBLE PROXIMA L DIAGNOSTIC Recall History of colonic polyps Health Maintenance Due Date Last Done Comments DISCUSS TOBACCO CESSATION (REFER TO SMARTSET #0175) 1945 Alpha-1 Antitrypsin 1965 Diabetic Foot Exam [...] 023, 02/21/2022, 07/23/2019 CKD PHOS USE SMARTSET 54381 03/02/202402/19, 10/07/2022, 02/21/2022, Additional history exists GFR 04/27/2024 10/27/2023, 08/20, 07/18/2023, Additional history exists HbA1c 05/31/2024 11/29/2023, 02/19, 01/15/2007, Additional history exists CKD HGB USE SMARTSET 84998 10/26/202410/26, 10/27/2023, 09/07/2023, Additional history exists O2 [...] Power of Attor zee? No Care Teams Commercial Lines Assistant Relationship Specialty Start Date End Date Roman Ennis III, MD [address] [place] [address] PCP - General Family Medicine 11/22/23 documented as of this encounter
--- OUTSIDE RECORDS SUMMARY | 2024-04-28 23:01 | External Medical Summary | Summary of Care ---
Author Name Unknown Organization [facility] Address [address] [place] [address] Phone [phone] Care Team Providers Care Paper Mill Manager Name Role Phone Loli NORWOOD MD, Roman Barraza Primary Care Provider Encounter Details Date Type Department Care Team (Late st Contact Info) Description 12/12/2023 Population Health External Data Unspecified Department Allergies [...] noon. 135 Tablet 3 03/23/2023 Active Nystatin 728283 UNIT/GM External Powder (Nystop) Apply topically to affected area 3 times a day. Apply to area under breasts 60 g 3 08/24/2023 Active Anoro Ellipta 62.5-25 MCG/ACT Inhalation Aerosol Powder Breath Activated (umeclidinium-vilant gaurav) INHALE ONE PUFF EVERY DAY 180 Blister Dosing Unit 11/02/2023 Active Atorvastatin Calcium 20 MG Oral Tablet (Lipitor) Take 1 Tablet by mouth every night at bedtime. 30 Tablet 11/02/2023 Active Clopidogrel Bisulfate 75 MG Oral [...] maximum THREE doses 25 Tablet 11/02/2023 Active Additional Information Patient not taking.Reported on 12/14/2023 Ondansetron HCl 4 MG Oral Tablet (Zofran)Indications: [...] Tablet 11/02/2023 Active Vitamin D3 250 MCG (87169 UT) Oral Tablet Take by mouth. Active oxyCODONE HCl 5 MG Oral Tablet (Oxy IR)Indications:Chron ic pain syndrome Take 1 Tablet by mouth every 6 hours as needed for Pain, Severe. 100 Tablet 11/30/2023 Active Gabapentin 300 MG Oral Capsule (Neurontin) Take 1 Capsule by mouth daily AND 2 Capsules at bedtime. 90 Capsule 11 12/07/2023 Active documented as of this encounter (statuses [...] cardiomyopathy 07/18/2018 Coronary artery disease invo lving [place] coronary artery of [place] heart without angina pectoris 05/08/2018 Anxiety state [...] Overview: Modified by Acute [place] Protocol #5. [facility] [...] 08/03/2023 Overview: Per CKD protocol Atherosclerosis of [place] co ronary artery without angina pectoris 07/28/2023 [...] as doing housework, yard work or shopping ([employer] CLASS II) Diagnostic Review: Recent [...] for Patients with Cardiovascular Disease Project #: [id number] PI: Peyton Conn MD [phone] GENOMICS CARDIO RESEARCH OTHER*[id number] 01/15/2007 06/28/2016 Overview: Renamed Per Clinical Trials Billing Project. Study Title: Genomic Markers for Patients with Cardiovascular Disease Project #: [id number] PI: Peyton Conn MD [phone] LV (left ventricular) mural thrombus 10/30/2006 12/28/2017 Tobacco use disorder 09/07/2006 010 Acute inferior myocardial infarction 08/19/2006 12/11/2008 Overview: Modified by Acute [place] Protocol #5. [facility] [place] [place] right coronary bare metal stents EXAMINATION OF PARTICIPANT I N CLINICAL TRIAL - HORIZONS 08/19/2006 09/04/2009 Overview: Renamed Per Clinical Trials Billing Project. [facility] AMI clinical trial 263 Single blind trial comparing heparin and IIB/IIIA with bivalirudin, and Taxus vs bare metal stent. Patient Follow-up for 5 years Parachute Taper: Trent Verduzco [phone] [facility] Clinical Trial*[id number] 08/19/2006 09/08/2014 Overview: Renamed Per Clinical Trials Billing Project. [facility] AMI clinical trial 263 Single blind trial comparing heparin and IIB/IIIA with bivalirudin, and Taxus vs bare metal stent. Patient Follow-up for 5 years Parachute Taper: Trent Espinozahip [phone] Menopause 08/29/2002 02/23/2017 LOC PRIM [id number] 05/29/200206/23 Dyslipidemia, goal to be determined 05/29/2002 [...] 1:00 PM EDT Office Visit Family Practice [facility] 200 [facility] [place] [address] Erica Marsh MD 200 [facility] [place] [address] 12/27/2023 4:00 PM EDT Home Visit [facility] [address] [place] [address] Areli Washburn, RN [address] [place] [address] 03/07/2024 10:00 AM EDT Office Visit Pharmacy, [facility] [address] [place] [address] [facility] [address] [place] [address] 03/22/2024 10:30 AM EDT Cardiac Studies Cardiology, [facility] [address] [place] [address] [facility] [address] [place] [address] 06/20/2024 9:30 AM EST Office Visit Cardiology, [facility] [address] [place] [address] Joshua Henson PA-C [address] [place] [address] 06/25/2024 11:00 AM EST Office Visit Family Practice [facility] 200 [facility] [place] [address] Erica Marsh MD 200 [facility] [place] [address] Scheduled Procedures Name Priority Associated Diagnoses Date/Ti me COLONOSCOPY FLEXIBLE PROXIMA L DIAGNOSTIC Recall History of colonic polyps Health Maintenance Due Date Last Done Comments DISCUSS TOBACCO CESSATION (REFER TO SMARTSET #5021) 1945 Alpha-1 Antitrypsin 1965 Diabetic Foot Exam [...] 023, 02/21/2022, 07/23/2019 CKD PHOS USE SMARTSET 89237 03/02/202402/19, 10/07/2022, 02/21/2022, Additional history exists GFR 04/27/2024 10/27/2023, 08/20, 07/18/2023, Additional history exists HbA1c 05/31/2024 11/29/2023, 02/19, 01/15/2007, Additional history exists CKD HGB USE SMARTSET 80385 10/26/202410/26, 10/27/2023, 09/07/2023, Additional history exists O2 [...] Power of Attor zee? No Care Teams Paper Mill Manager Relationship Specialty Start Date End Date Roman Ennis III, MD [address] [place] [address] PCP - General Family Medicine 11/22/23 documented as of this encounter
--- OUTSIDE RECORDS SUMMARY | 2024-04-28 23:01 | External Medical Summary | Summary of Care ---
Author Name Unknown Organization [facility] Address [address] [place] [address] Phone [phone] Care Team Providers Care Medical Unit Secretary Name Role Phone Loli NORWOOD MD, Roman Barraza Primary Care Provider [phone] Reason for Visit * Reason Onset Date Comments Surgery 10/19/2023 Encounter Details Date Type Department Care Team (Late st Contact Info) Description 10/19/2023 Telephone Vascular Surg [facility] [address] [place] [address] Albin Marr MD [address] [place] [address] Surgery Allergies Active Allergy Reactions [...] noon. 135 Tablet 3 3 Active Nystatin 705063 UNIT/GM External Powder (Nystop) Apply topically to [...] cardiomyopathy 07/18/2018 Coronary artery disease invo lving [place] [...] Overview: Modified by Acute [place] Protocol #5. [facility] [...] 08/03/2023 Overview: Per CKD protocol Atherosclerosis of [place] co ronary artery without angina pectoris 07/28/2023 [...] for Patients with Cardiovascular Disease Project #: [id number] PI: Peyton Conn MD [phone] GENOMICS CARDIO RESEARCH OTHER*[id number] 01/15/2007 06/28/2016 Overview: Renamed Per Clinical Trials Billing Project. Study Title: Genomic Markers for Patients with Cardiovascular Disease Project #: [id number] PI: Peyton Conn MD [phone] LV (left ventricular) mural thrombus 10/30/2006 12/28/2017 Tobacco use disorder 09/07/2006 010 Acute inferior myocardial infarction 08/19/2006 12/11/2008 Overview: Modified by Acute [place] Protocol #5. [facility] right coronary bare metal stents EXAMINATION OF PARTICIPANT I N CLINICAL TRIAL - HORIZONS 08/19/2006 09/04/2009 Overview: Renamed Per Clinical Trials Billing Project. [facility] AMI clinical trial 263 Single blind trial comparing heparin and IIB/IIIA with bivalirudin, and Taxus vs bare metal stent. Patient Follow-up for 5 years Machine Folder: Trent Verduzco [phone] [facility] Clinical Trial*[id number] 08/19/2006 09/08/2014 Overview: Renamed Per Clinical Trials Billing Project. [facility] AMI clinical trial 263 Single blind trial comparing heparin and IIB/IIIA with bivalirudin, and Taxus vs bare metal stent. Patient Follow-up for 5 years Machine Folder: Trent Verduzco [phone] Menopause 08/29/2002 02/23/2017 LOC PRIM [id number] 05/29/200206/23 Dyslipidemia, goal to be determined 05/29/2002 [...] a return visit with Dr. Marr at [facility] on 12/27/23, at which time patient willbe evaluated for re-scheduling surgery. * Telephone Encounter - Joey Morales OSA - 12/14/2023 5:16 PM EDT Spoke to pt. She is ready to proceed with surgery. Is healing well after hip break. She saw her stamping die try out worker today and was cleared Please advise on [...] pt defibrolator and she needsseen by her stamping die try out worker Nadiya said they are overwhelmed with everything [...] Pt daughter in law called Pt in [facility] for broken hip. Being taken for 4-6 weeks of therapy after discharge Have to cx surgery with Dr Marr and followup Nadiya would like a callback October about r/s procedure Thanks OPAL Jackson documented in this encounter Plan of Treatment Upcoming Encounters Date Type Department Care Team (Late st Contact Info) Description 12/22/2023 1:00 PM EDT Office Visit Family Practice [facility] [address] [facility] [place] [address] Erica Marsh MD [address] [facility] [place] [address] 12/27/2023 4:00 PM EDT Home Visit Elaine [facility] [place], [facility] [place] [address] Areli Washburn, LISA [address] [place] [address] 03/07/2024 10:00 AM EDT Office Visit Pharmacy, [facility] [address] [place] [address] [place], Mtm [facility] [address] [facility] [place] [address] 03/22/2024 10:30 AM EDT Cardiac Studies Cardiology, [facility] 132 [facility] [place] [address] [place], Pacer Clinic [facility] [address] [facility] [place] [address] 06/20/2024 9:30 AM EST Office Visit Cardiology, [facility] [address] [facility] [place] [address] Joshua Henson PA-C [facility] [place] [address] 06/25/2024 11:00 AM EST Office Visit Family Practice [facility] 200 [facility] [place] [address] Erica Marsh MD 200 [facility] [place], [place] [address] Scheduled Procedures Name Priority Associated Diagnoses Date/Ti [...] 023, 02/21/2022, 07/23/2019 CKD PHOS USE SMARTSET 76433 03/02/202402/19, 10/07/2022, 02/21/2022, Additional history exists GFR 04/27/2024 10/27/2023, 08/20, 07/18/2023, Additional history exists HbA1c 05/31/2024 11/29/2023, 02/19, 01/15/2007, Additional history exists CKD HGB USE SMARTSET 84016 10/26/202410/26, 10/27/2023, 09/07/2023, Additional history exists O2 [...] Power of Attor zee? No Care Teams Medical Unit Secretary Relationship Specialty Start Date End Date Roman Ennis III, MD 200 [place] [address] PCP - General Family Medicine 11/22/23 documented as of this encounter
--- OUTSIDE RECORDS SUMMARY | 2024-04-28 23:02 | External Medical Summary | Summary of Care ---
Author Name Unknown Organization [facility] Address [address] [place] [address] Phone [phone] Care Team Providers Care Cut Out Operator Name Role Phone Loli NORWOOD MD, Roman Barraza Primary Care Provider [phone] Reason for Visit * Reason Onset Date Comments Surgery 10/19/2023 Encounter Details Date Type Department Care Team (Late st Contact Info) Description 10/19/2023 Telephone Vascular Surg [facility] [address] [place] [address] Albin Marr MD [address] [place] [address] Surgery Allergies Active Allergy Reactions Criticality Noted Date Comments Isosorbide Mononitrate 12/24/2007 Severe headaches Nsaids 05/29/2002 Tramadol Hcl Nausea/vomiting Low 01/09/2008 UGI distress documented as of this encounter (statuses as of 12/14/2023) Medications Medication Sig Dispensed Refills Start Date End Date Status Furosemide 40 MG Oral Tablet (Lasix) Take 1 Tablet by mouth daily AND 0.5 Tablets daily at noon. 135 Tablet 3 3 Active Nystatin 661669 UNIT/GM External Powder (Nystop) Apply topically to [...] as of this encounter (statuses as of 12/14/2023) Active Problems Problem Noted Date Diagnosed Date [...] cardiomyopathy 07/18/2018 Coronary artery disease invo lving [place] coronary [...] Last Assessment & Plan: Followed by [facility] cardiology History of colonic polyps 09/04/2012 Overview: 09/01/2012: adenoma, repeat in 3 years ICD-10 update of inactive term Dyslipidemia, goal LDL below 70 05/07/2009 Overview: Per Lipid Taxonomy. OLD MYOCARDIAL INFARCT 12/11/2008 Overview: Modified by Acute [place] Protocol #5. [facility] right coronary bare metal stents S/P angioplasty with stent 09/07/2006 History of tobacco use documented as of this encounter (statuses as of 12/14/2023) Resolved Problems Problem Noted Date Diagnosed Date [...] 08/03/2023 Overview: Per CKD protocol Atherosclerosis of [place] co ronary artery without [...] for Patients with Cardiovascular Disease Project #: [id number] PI: Peyton Conn MD [phone] GENOMICS CARDIO RESEARCH OTHER*[id number] 01/15/2007 06/28/2016 Overview: Renamed Per Clinical Trials Billing Project. Study Title: Genomic Markers for Patients with Cardiovascular Disease Project #: [id number] PI: Peyton Conn MD [phone] LV (left ventricular) mural thrombus 10/30/2006 12/28/2017 Tobacco use disorder 09/07/2006 010 Acute inferior myocardial infarction 08/19/2006 12/11/2008 Overview: Modified by Acute [place] Protocol #5. [facility] right coronary bare metal stents EXAMINATION OF PARTICIPANT I N CLINICAL TRIAL - HORIZONS 08/19/2006 09/04/2009 Overview: Renamed Per Clinical Trials Billing Project. [facility] AMI clinical trial 263 Single blind trial comparing heparin and IIB/IIIA with bivalirudin, and Taxus vs bare metal stent. Patient Follow-up for 5 years Making Line Worker: Trent Verduzco [phone] [facility] Clinical Trial*[id number] 08/19/2006 09/08/2014 Overview: Renamed Per Clinical Trials Billing Project. [facility] AMI clinical trial 263 Single blind trial comparing heparin and IIB/IIIA with bivalirudin, and Taxus vs bare metal stent. Patient Follow-up for 5 years Making Line Worker: Trent Verduzco [phone] Menopause 08/29/2002 02/23/2017 LOC PRIM [id number] 05/29/200206/23 Dyslipidemia, goal to be determined 05/29/2002 05/07/2009 Overview: Per Lipid Taxonomy. 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 She saw her district commercial superintendent today and was cleared Please advise on [...] pt defibrolator and she needsseen by her district commercial superintendent Nadiya said they are overwhelmed with everything [...] daughter in law called Pt in [facility] for broken hip. Being taken for 4-6 weeks of therapy after discharge Have to cx surgery with Dr Marr and followup Nadiya would like a callback October about r/s procedure Thanks [facility] documented in this encounter Plan of Treatment Upcoming Encounters Date Type Department Care Team (Late st Contact Info) Description 12/22/2023 1:00 PM EDT Office Visit [facility] [address] [place] [address] Erica Marsh MD [address] [place] [address] 12/27/2023 4:00 PM EDT Home Visit [facility] [address] [place] [address] Areli Washburn, LISA [address] [place] [address] 03/07/2024 10:00 AM EDT Office Visit Pharmacy, [facility] [address] [place] [address] [facility] [address] [place] [address] 03/22/2024 10:30 AM EDT Cardiac Studies Cardiology, [facility] [address] [place] [address] Rossy [place] [address] [place] [address] 06/20/2024 9:30 AM EST Office Visit Cardiology, [facility] [address] [place] [address] Joshua Henson PA-C [address] [place] [address] 06/25/2024 11:00 AM EST Office Visit [facility] [address] [place] [address] Erica Marsh MD [address] [place] [address] Scheduled Procedures Name Priority Associated Diagnoses Date/Ti me COLONOSCOPY FLEXIBLE PROXIMA L DIAGNOSTIC Recall History of colonic polyps Health Maintenance Due Date Last Done Comments DISCUSS TOBACCO CESSATION (REFER TO SMARTSET #7663) 1945 Alpha-1 Antitrypsin 1965 Diabetic Foot Exam [...] 023, 02/21/2022, 07/23/2019 CKD PHOS USE SMARTSET 56275 03/02/202402/19, 10/07/2022, 02/21/2022, Additional history exists GFR 04/27/2024 10/27/2023, 08/20, 07/18/2023, Additional history exists HbA1c 05/31/2024 11/29/2023, 02/19, 01/15/2007, Additional history exists CKD HGB USE SMARTSET 82017 10/26/202410/26, 10/27/2023, 09/07/2023, Additional history exists O2 [...] Power of Attor zee? No Care Teams Cut Out Operator Relationship Specialty Start Date End Date Roman Ennis III, MD [address] [place], [place] [address] PCP - General Family Medicine 11/22/23 documented as of this encounter
--- OUTSIDE RECORDS SUMMARY | 2024-04-28 23:02 | External Medical Summary | Summary of Care ---
Author Name Unknown Organization [facility] Address [address] [place] [address] Phone [phone] Care Team Providers Care Voting Machine Mechanic Name Role Phone Loli NORWOOD MD, Roman Barraza Primary Care Provider [phone] Reason for Visit * Reason Onset Date Comments Surgery 10/19/2023 Encounter Details Date Type Department Care Team (Late st Contact Info) Description 10/19/2023 Telephone Vascular Surg [facility] [address] [place] [address] Albin Marr MD [address] [place] [address] Surgery Allergies Active Allergy Reactions [...] noon. 135 Tablet 3 3 Active Nystatin 594031 UNIT/GM External Powder (Nystop) Apply topically to [...] cardiomyopathy 07/18/2018 Coronary artery disease invo lving [place] coronary artery of [place] heart without angina pectoris 05/08/2018 Anxiety state [...] Overview: Modified by Acute [place] Protocol #5. [facility] [...] 08/03/2023 Overview: Per CKD protocol Atherosclerosis of [place] co ronary artery without angina pectoris 07/28/2023 [...] for Patients with Cardiovascular Disease Project #: [id number] PI: Peyton Conn MD [phone] GENOMICS CARDIO RESEARCH OTHER*[id number] 01/15/2007 06/28/2016 Overview: Renamed Per Clinical Trials Billing Project. Study Title: Genomic Markers for Patients with Cardiovascular Disease Project #: [id number] PI: Peyton Conn MD [phone] LV (left ventricular) mural thrombus 10/30/2006 12/28/2017 Tobacco use disorder 09/07/2006 010 Acute inferior myocardial infarction 08/19/2006 12/11/2008 Overview: Modified by Acute [place] Protocol #5. [facility] right coronary bare metal stents EXAMINATION OF PARTICIPANT I N CLINICAL TRIAL - HORIZONS 08/19/2006 09/04/2009 Overview: Renamed Per Clinical Trials Billing Project. [facility] AMI clinical trial 263 Single blind trial comparing heparin and IIB/IIIA with bivalirudin, and Taxus vs bare metal stent. Patient Follow-up for 5 years Estimator Printing Plate Making: Trent Verduzco [phone] [facility] Clinical Trial*[id number] 08/19/2006 09/08/2014 Overview: Renamed Per Clinical Trials Billing Project. [facility] AMI clinical trial 263 Single blind trial comparing heparin and IIB/IIIA with bivalirudin, and Taxus vs bare metal stent. Patient Follow-up for 5 years Estimator Printing Plate Making: Trent Verduzco [phone] Menopause 08/29/2002 02/23/2017 LOC PRIM [id number] 05/29/200206/23 Dyslipidemia, goal to be determined 05/29/2002 [...] on file Are you (or your family) oebd eless or worried that you might be [...] encounter Miscellaneous Notes * Telephone Encounter - Janusz Louis CRNP - 12/15/2023 6:27 AM EDT Please see prior telephone encounter: Please schedule a return visit with Dr. Marr at [facility] on 12/27/23, at which time patient willbe evaluated for re-scheduling surgery. * Telephone Encounter - Joey Morales OSA - 12/14/2023 5:16 PM EDT Spoke to pt. She is ready to proceed with surgery. Is healing well after hip break. She saw her rod welder today and was cleared Please advise on [...] pt defibrolator and she needsseen by her rod welder Nadiya said they are overwhelmed with everything going on and did not wish to schedule an appt withvascular and asked for a call back in about 4-6 weeks, or if pt doing better, Nadiya would call [facility]\\ * Telephone Encounter - Rosalva Jorge [...] Pt daughter in law called Pt in [facility] for broken hip. Being taken for 4-6 weeks of therapy after discharge Have to cx surgery with Dr Marr and shiv Hearn would like a callback October about r/s procedure Thanks [facility] documented in this encounter Plan of Treatment Upcoming Encounters Date Type Department Care Team (Late st Contact Info) Description 12/22/2023 1:00 PM EDT Office Visit Family Practice [facility] [address] [place] [address] Erica Marsh MD [address] [facility] [address] [facility] [place] [address] 12/27/2023 4:00 PM EDT Home Visit [facility] [address] [place] [address] Areli Washburn, RN [address] [place] [address] 03/07/2024 10:00 AM EDT Office Visit Pharmacy, [facility] [address] [place] [address] [facility] [address] [place] [address] 03/22/2024 10:30 AM EDT Cardiac Studies Cardiology, [facility] [address] [place] [address] Rossy [facility] [address] [place] [address] 06/20/2024 9:30 AM EST Office Visit Cardiology, [facility] [address] [place] [address] Joshua Henson [facility] [address] [place] [address] 06/25/2024 11:00 AM EST Office Visit Family [facility] [address] [facility] [place] [address] Erica Marsh MD [address] [facility] [place] [address] Scheduled Procedures Name Priority Associated Diagnoses Date/Ti me COLONOSCOPY FLEXIBLE PROXIMA L DIAGNOSTIC Recall History of colonic polyps Health Maintenance Due Date Last Done Comments DISCUSS TOBACCO CESSATION (REFER TO SMARTSET #2114) 1945 Alpha-1 Antitrypsin 1965 Diabetic Foot Exam [...] 023, 02/21/2022, 07/23/2019 CKD PHOS USE SMARTSET 08326 03/02/202402/19, 10/07/2022, 02/21/2022, Additional history exists GFR 04/27/2024 10/27/2023, 08/20, 07/18/2023, Additional history exists HbA1c 05/31/2024 11/29/2023, 02/19, 01/15/2007, Additional history exists CKD HGB USE SMARTSET 56619 10/26/202410/26, 10/27/2023, 09/07/2023, Additional history exists O2 [...] Power of Attor zee? No Care Teams Voting Machine Mechanic Relationship Specialty Start Date End Date Loli NORWOOD, Roman Barraza MD [address] [place] [address] PCP - General Family Medicine 11/22/23 documented as of this encounter
--- OUTSIDE RECORDS SUMMARY | 2024-04-28 23:02 | External Medical Summary | Summary of Care ---
Author Name Unknown Organization [facility] Address [address] [place] [address] Phone [phone] Care Team Providers Care Front Desk Representative Name Role Phone Loli NORWOOD MD, Roman Barraza Primary Care Provider [phone] Reason for Visit * Reason Comments Follow Up Encounter Details Date Type Department Care Team (Late st Contact Info) Description 12/14/2023 10:30 AM EDT Office Visit Cardiology, [facility] [address] [place] [address] Clara Geller CRNP [address] [place] [address] Pre-operative cardiovascular examination*; Paroxysmal atrial fibrillation (HCC); Coronary artery disease involving iroquois coronary artery of iroquois heart without angina pectoris; History of ischemic cardiomyopathy; Biventricular implantable cardioverter-defibrilla tor in situ; Essential hypertension with goal blood pressure less than 140/90; Dyslipidemia, goal LDL below 70 Allergies Active [...] noon. 135 Tablet 3 03/23/2023 Active Nystatin 339793 UNIT/GM External Powder (Nystop) Apply topically to [...] Tablet 11/02/2023 Active Vitamin D3 250 MCG (85890 UT) Oral Tablet Take by mouth. Active [...] cardiomyopathy 07/18/2018 Coronary artery disease invo lving iroquois coronary [...] 08/07/2013 Last Assessment & Plan: Followed by [facility] cardiology History of colonic polyps 09/04/2012 Overview: 09/01/2012: adenoma, repeat in 3 years ICD-10 update of inactive term Dyslipidemia, goal LDL below 70 05/07/2009 Overview: Per Lipid Taxonomy. OLD MYOCARDIAL INFARCT 12/11/2008 Overview: Modified by Acute [place] Protocol #5. [facility] right coronary bare [...] 08/03/2023 Overview: Per CKD protocol Atherosclerosis of iroquois co ronary artery without angina pectoris 07/28/2023 [...] for Patients with Cardiovascular Disease Project #: [id number] PI: Peyton Conn MD [phone] GENOMICS CARDIO RESEARCH OTHER*[id number] 01/15/2007 06/28/2016 Overview: Renamed Per Clinical Trials Billing Project. Study Title: Genomic Markers for Patients with Cardiovascular Disease Project #: [id number] PI: Peyton Conn MD [phone] LV (left ventricular) mural thrombus 10/30/2006 12/28/2017 Tobacco use disorder 09/07/2006 010 Acute inferior myocardial infarction 08/19/2006 12/11/2008 Overview: Modified by Acute [place] Protocol #5. [facility] right coronary bare metal stents EXAMINATION OF PARTICIPANT I N CLINICAL TRIAL - HORIZONS 08/19/2006 09/04/2009 Overview: Renamed Per Clinical Trials Billing Project. [facility] AMI clinical trial 263 Single blind trial comparing heparin and IIB/IIIA with bivalirudin, and Taxus vs bare metal stent. Patient Follow-up for 5 years Coal Trimmer Machine Operator: Trent Verduzco [phone] [facility] Clinical Trial*[id number] 08/19/2006 09/08/2014 Overview: Renamed Per Clinical Trials Billing Project. [facility] AMI clinical trial 263 Single blind trial comparing heparin and IIB/IIIA with bivalirudin, and Taxus vs bare metal stent. Patient Follow-up for 5 years Coal Trimmer Machine Operator: Trent Verduzco [phone] Menopause 08/29/2002 02/23/2017 LOC PRIM [id number] 05/29/200206/23 Dyslipidemia, goal to be determined 05/29/2002 [...] uit: Not Asked; Counseling Given: Not Answered Comments:10/11/2023 6-7 cigarettes per day, decline pamphlet. [...] Sign Reading Time Taken Comments Blood Pressure 138/84 12/14/2023 10:27 AM EDT Pulse 74 12/14/2023 10:27 AM EDT Temperature - - Respiratory Rate - - Oxygen Saturation 88% 12/14/2023 10:27 AM EDT Inhaled Oxygen Concentration - - Weight 68 kg (150 lb) 12/14/2023 10:27 AM EDT Height - - Body Mass Index 27.46 09/07/2023 10:51 AM EDT documented in this encounter Progress Notes * Clara Geller CRNP - 12/14/2023 10:30 AM EDT Images from the original note were not included. 12/14/2023 Cardiology Follow Up Primary Brine Process Operator: TBD Cardiac Problems: ICM S/P inferior posterior LA 08/2006 S/P PCI to RCA and 4 [...] atrial fib DVT AAA COPD Chronic anemia HPI: Radha Tong is a 78 year old female presents for preoperative cardiac clearance. She is tohave a Bilateral lower extremity angiography with iliac artery revascularization with stent and angioplasty with Dr. Marr. Date TBD. Patient was last seen in our office by Avani Crenshaw PA-C 07/18/23 for hospital discharge close follow up. She was admitted with symptomatic anemia with a HgB 6.8 which improved to 10.4 following 2 units of PRBC's. No acute changes on EKG. Echo demonstrated preserved LVEF with evidence of old LA. Ultimately her eliquis was restarted and patient reported feeling great at the time of follow up. She presents today feeling well overall. She was to have this procedure done in October, but unfortunately fell and broke her hip which placed this procedure on hold. BP well controlled. EKG today A-sensed/V-paced rhythm 64bpm Patient denies any change in her functional capacity outside of recovery from her hip surgery. She reports that she has been cleared by Dr. Lay. Denies any chest pain, pressure, palpitations,no exertional chest pain. No shortness of breath or change in breathing. Compliant on all mediations therapies with no untoward effects. REVIEW OF SYSTEMS: See HPI for pertinent positives. All others negative other than those noted in the HPI. CONSTITUTIONAL: No change in weight, No weakness, No fatigue and No fevers, No sweats or chills. PULMONARY: No cough, sputum, or hemoptysis, No wheezing, No shortness or breath and No recent change in breathing. CARDIOVASCULAR: No chest pain, No dyspnea on exertion, No edema, No palpitations and No syncope. GASTROINTESTINAL: No abdominal pain, No change in bowel habits, No significant heartburn, No nausea, No vomiting, No diarrhea, No constipation, No blood in stools or black tarry stools. No dysphagia. HEMATOLOGIC: No abnormal bleeding and No bruising. NEUROLOGICAL: Normal balance, No headaches and No weakness. Review of patient's allergies indicates: Allergen Reactions Imdur [Isosorbide Mononitrate] Severe headaches Nsaids Ultram [Tramadol Hcl] Nausea/vomiting UGI distress Current Outpatient Medications Medication Sig Dispense Refill Furosemide 40 MG Oral Tablet (Lasix) Take 1 Tablet by mouth daily AND 0.5 Tablets daily at noon. 135 Tablet 3 Nystatin 415100 UNIT/GM External Powder (Nystop) Apply topically to affected area 3 times a day. Apply to area under breasts 60 g 3 Anoro Ellipta 62.5-25 MCG/ACT Inhalation Aerosol Powder Breath Activated (umeclidinium-vilanterol) INHALE ONE PUFF EVERY DAY 180 Blister Dosing Unit 0 Atorvastatin Calcium 20 MG Oral Tablet (Lipitor) Take 1 Tablet by mouth every night at bedtime. 30 Tablet 0 Clopidogrel Bisulfate 75 MG Oral Tablet (Plavix) Take 1 Tablet by mouth in the morning. 30 Tablet 0 Cyanocobalamin 1000 MCG Oral Tablet (Cyanocobalamin) Take 1 Tablet by mouth in the morning. 30 Tablet 0 Apixaban 5 MG Oral Tablet (Eliquis) Take 1 Tablet by mouth in the morning and 1 Tablet before bedtime. 60 Tablet 0 Ferrous Sulfate 325 (65 Fe) MG Oral Tablet Delayed Release Take 1 Tablet by mouth in the morning and 1 Tablet before bedtime. 60 Tablet 0 levETIRAcetam 500 MG Oral Tablet (Keppra) Take 1 Tablet by mouth in the morning and 1 Tablet beforebedtime. 60 Tablet 0 Metoprolol Succinate ER 50 MG Oral Tablet Extended Release 24 Hour (toPROL XL) Take 1 Tablet by mouth in the morning and 1 Tablet before bedtime. 30 Tablet 0 Ondansetron HCl 4 MG Oral Tablet (Zofran) Take 1 Tablet by mouth every 8 hours as needed for Nausea. 20 Tablet 0 Pantoprazole Sodium 40 MG Oral Tablet Delayed Release (Protonix) TAKE ONE TABLET BY MOUTH DAILY 30 MINUTES BEFORE FIRST meal of THE DAY 30 Tablet 0 traZODone HCl 50 MG Oral Tablet (Desyrel) Take 0.5 Tablets by mouth at bedtime. 15 Tablet 0 Vitamin D3 250 MCG (17900 UT) Oral Tablet Take by mouth. oxyCODONE HCl 5 MG Oral Tablet (Oxy IR) Take 1 Tablet by mouth every 6 hours as needed for Pain, Severe. 100 Tablet 0 Gabapentin 300 MG Oral Capsule (Neurontin) Take 1 Capsule by mouth daily AND 2 Capsules at bedtime.90 Capsule 11 Nitroglycerin 0.4 MG Sublingual Tablet Sublingual (Nitrostat) DISSOLVE ONE TABLET UNDER THE TONGUE NEEDED FOR CHEST pain, maximum THREE doses (Patient not taking: Reported on 12/14/2023) 25 Tablet 0 No current facility-administered medications for this visit. Past Medical History: Diagnosis Date Acute deep vein thrombosis (DVT) of proximal vein of right lower extremity (HCC) 07/28/2023 History - September 2022 admission Acute inferior myocardial infarction (HCC) 08/19/2006 [facility] right coronary bare metal stents Automatic implantable cardiac defibrillator in situ 11/24/2008 [facility], Dr Bhavani Oliveros EF 20-25% Chronic obstructive pulmonary disease with [...] (HCC) 01/04/2023 History - September 2022 admission Family History Problem Relation Name Age of Onset Cancer Mother cervical cancer [...] of children: 5 Years of education: 12 Occupational History Occupation: disabled since 08/18/06, SSI Employer: [employer] Tobacco Use Smoking status: Every Day Current packs/day: 0.00 Average packs/day: 0.3 packs/day for 20.0 years (5.0 ttl pk-yrs) Types: Cigarettes Last attempt to quit: 06/28/2023 Years since quittin.4 Smokeless tobacco: Never Tobacco comments: 10/11/2023 6-7 [...] Diet No Back Care No Exercise No Seat Belt Yes Self-Exams Yes Social Determinants of Health Financial Resource Strain: High Risk (12/21/2022) Financial Resource Strain Do you have any trouble paying for your medications, or do you think you might in the future? (Adult - for ages 18 years and over): Yes Food Insecurity: No Food Insecurity (12/21/2022) Food Insecurity Do you need food for this week? (Adult - for ages 18 years and over): No Recent Concern: Food Insecurity - Food Insecurity Present (12/21/2022) Hunger Vital Sign Worried About Running Out of Food in the Last Year: Often true Ran Out of Food in the Last Year: Often true Transportation Needs: Unmet Transportation Needs (12/21/2022) Transportation Needs Do you have trouble getting a ride to medical visits or work? (Adult - for ages 18 years and over):Sometimes True Social Connections: Socially Integrated (12/21/2022) Social Connections How often do you feel lonely or isolated from those around you? (Adult - for ages 18 years and over): Never Housing Stability: Low Risk (12/21/2022) Housing Stability Do you currently live in a snf or have no steady place to sleep at night? (Adult - for ages 18 years and over): No Do you think you are at risk of becoming homeless? (Adult - for ages 18 years and over): No OBJECTIVE/PHYSICAL EXAMINATION: BP 138/84 | Pulse 74 | Wt 68 kg (150 lb) | SpO2 88% | BMI 27.46 kg/m | BSA 1.72 m General: No acute distress. A+Ox3. HEENT: Normocephalic. Atraumatic. PERRL. EOMI. Conjunctiva and sclera clear. NECK: No carotid bruits. No JVD. Carotid upstrokes are brisk. Heart: RRR. S1 and S2 noted. No murmur. No rubs or gallops. PMI non displaced. Lungs: Clear to auscultation. No wheezes.No rhonchi. No rales. Abdomen: Normal bowel sounds. Soft. Nontender. No masses or organomegaly. No abdominal bruits. Extremities: No edema. No clubbing or cyanosis. Pulses: radial=2/4, posterior tibial=2/4, dorsalis pedis = 2/4. NEURO: No focal deficits. PSYCH: Appropriate affect and insight. DATA Labs & Imaging Reviewed Below: Device interrogation 11/30/2023: Normal Device Function Left [...] evaluated Echocardiogram report reviewed dated 06/29/2023 at [facility]: Ejection fraction 60 to 65%. Abnormal septal [...] of 03/09/2017, there is no significant change. ASSESSMENT/PLAN: 78 year old year old female 1. Pre-operative cardiovascular examination -Doing well from [...] risk and wishes to proceed with surgery. - EKG 2. Paroxysmal atrial fibrillation (HCC) -Asymptomatic. -Continue Eliquis as per current regimen. No bleeding concerns. -Patient was advised that she should hold her Eliquis for 2 days prior to her scheduled procedure date, and plan to resume her Eliquis the day after procedure unless vascular surgery would dictate otherwise. -Continue Metoprolol succinate 3. Coronary artery disease involving iroquois coronary artery of iroquois heart without angina pectoris 4. History of ischemic cardiomyopathy 5. Biventricular implantable cardioverter-defibrillator in situ -No new or changing concerns/symptoms. -Recent device interrogation demonstrates normal function with no events. -Continue Toprol xl, Atorvastatin, Plavix, furosemide 6. Essential hypertension with goal blood pressure less than 140/90 -Continue toprol xl and furosemide 7. Dyslipidemia, goal LDL below 70 -Continue Atorvastatin -yearly lipid panel DISPOSITION: Follow up 6 months or if symptoms worsen/fail to improve. All questions were answered to the patients satisfaction. Patient advised to report to ED with any and all emergencies. The patient agrees to the above plan and will call with additional questions or concerns. [facility], [address] [address] I spent a total of 38 minutes on the date of service in preparation, delivery, and documentation ofthe care provided to Radha Tong excluding any time spent in the performance of separately billed services. This chart was completed in part utilizing freee Speech Voice Recognition Software. Grammatical errors, random word insertions, pronoun errors, and incomplete sentences are an occasional consequence of this system due to software limitations, ambient noise, and hardware issues. Any formal questions or concerns about the content, text, or information contained within the body of this dictation should be directly addressed to the provider for clarification. documented in this encounter Procedure Notes * Trent Wu DO - 12/14/2023 10:39 AM EDTAssociated Order(s): EKG REASON FOR STUDY: routine;routine CONCLUSIONS: Atrial-sensed ventricular-paced rhythm Abnormal ECG When compared with ECG of 10-Aug-2023 15:14, No significant change Ventricular Rate: 64 Atrial Rate: 64 NJ Interval: 138 QRS Duration: 144 QT/QTc: 482/497 ms P-R-T [place]: 56 : -47 : 39 degrees documented in this encounter Nursing Notes * Oma Walker CMA - 12/14/2023 10:25 AM EDT Examination Room: 1 Name: Radha Tong Date of : (1945) Reason for Visit: pre op Interim Hospitalization(s): none Problems/Concerns: denied Chest Pain/SOB: denied [facility] is a way you can talk to your provider online through e-mail. Would you like to sign up? I can activate it for you? ALREADY ACTIVE Patient was instructed to not get up [...] 1:00 PM EDT Office Visit [facility] [address] [place] [address] Erica Marsh MD [address] [place] [address] 12/27/2023 4:00 PM EDT Home Visit [facility], [address] [place] [address] Areli Washburn, RN [address] [place] [address] 03/07/2024 10:00 AM EDT Office Visit Pharmacy, [facility] [address] [place] [address] [facility] [address] [place] [address] 03/22/2024 10:30 AM EDT Cardiac Studies Cardiology, [facility] [address] [place] [address] [facility] [address] [place] [address] 06/20/2024 9:30 AM EST Office Visit Cardiology, [facility] [address] [place] [address] Joshua Henson, PAOlivaC [address] [place] [address] 06/25/2024 11:00 AM EST Office Visit Family Practice [facility] [address] [facility] [place] [address] Erica Marsh MD [address] [place] [address] Scheduled Procedures Name Priority Associated Diagnoses Date/Ti me COLONOSCOPY FLEXIBLE PROXIMA L DIAGNOSTIC Recall History of colonic polyps Health Maintenance Due Date Last Done Comments DISCUSS TOBACCO CESSATION (REFER TO SMARTSET #0848) 1945 Alpha-1 Antitrypsin 1965 Diabetic Foot Exam [...] 023, 02/21/2022, 07/23/2019 CKD PHOS USE SMARTSET 49421 03/02/202402/19, 10/07/2022, 02/21/2022, Additional history exists GFR 04/27/2024 10/27/2023, 08/20, 07/18/2023, Additional history exists HbA1c 05/31/2024 11/29/2023, 02/19, 01/15/2007, Additional history exists CKD HGB USE SMARTSET 61922 10/26/202410/26, 10/27/2023, 09/07/2023, Additional history exists O2 [...] Procedure Name Priority Date/Time Associated Diagnosis Comments NJ ECG ROUTINE ECG W/LEAST 12 LDS W/I&R Routine 12/14/2023 10:39 AM EDT Pre-operative cardiovascular examination documented in this encounter Results * EKG (12/14/2023 10:39 AM EDT) 12/14/2023 10:3 9 AM EDT Narrative Procedure Note Trent Wu, DO - 12/14/2023 10:39 AM EDT REASON FOR STUDY: routine;routine CONCLUSIONS: Atrial-sensed ventricular-paced rhythm Abnormal ECG When compared with ECG of 10-Aug-2023 15:14, No significant change Ventricular Rate: 64 Atrial Rate: 64 NJ Interval: 138 QRS Duration: 144 QT/QTc: 482/497 ms P-R-T [place]: 56 : -47 : 39 degrees Clara MOORE EKG [facility] documented in this encounter Visit Diagnoses Diagnosis Pre-operative cardiovascular examination- Primary Paroxysmal atrial fibrillation (HCC) Atrial fibrillation Coronary artery disease involving iroquois coronary artery of iroquois heart without angina pectoris History of ischemic cardiomyopathy Biventricular implantable cardioverter-defibrillator in situ Essential hypertension with goal blood pressure less than 140/90 Dyslipidemia, goal LDL below 70 Other and [...] Power of Attor zee? No Care Teams Front Desk Representative Relationship Specialty Start Date End Date Roman Ennis III, MD [address] [place] [address] PCP - General Family Medicine 11/22/23 documented as of this encounter
--- OUTSIDE RECORDS SUMMARY | 2024-04-28 23:03 | External Medical Summary | Summary of Care ---
Author Name Unknown Organization [facility] Address [address] [address] Phone [phone] Care Team Providers Care Mixer Whipped Topping Name Role Phone Loli NORWOOD MD, Roman Barraza Primary Care Provider [phone] Reason for Visit * Reason Comments Dosage Adjustment In Person (Anticoag Cl inic) Pain Encounter Details Date Type Department Care Team (Late st Contact Info) Description 12/07/2023 9:00 AM EDT Office Visit Pharmacy, [facility] [address] [facility] [place] [address] [facility] [address] [facility] [place] [address] Hip pain, left* Allergies Active Allergy Reactions Criticality Noted Date Comments Isosorbide Mononitrate 12/24/2007 Severe headaches Nsaids 05/29/2002 Tramadol Hcl Nausea/vomiting Low 01/09/2008 UGI distress documented as of this encounter (statuses as of 12/07/2023) Medications Medication Sig Dispensed Refills Start Date End Date Status Furosemide 40 MG Oral Tablet (Lasix) Take 1 Tablet by mouth daily AND 0.5 Tablets daily at noon. 135 Tablet 3 3 Active Nystatin 292007 UNIT/GM External Powder (Nystop) Apply topically to affected area 3 times a day. Apply to area under breasts 60 g 3 4 Active Anoro Ellipta 62.5-25 MCG/ACT Inhalation Aerosol Powder Breath Activated (umeclidinium-vilan terol) INHALE ONE PUFF EVERY DAY 180 Blister Dosing Unit 4 Active Atorvastatin Calcium 20 MG Oral Tablet (Lipitor) Take 1 Tablet by mouth every night at bedtime. 30 Tablet 4 Active Clopidogrel Bisulfate 75 MG Oral [...] Tablet 4 Active Vitamin D3 250 MCG (87167 UT) Oral Tablet Take by mouth. 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 100 Tablet 4 Active Gabapentin 300 MG Oral Capsule (Neurontin) Take 1 Capsule by mouth daily AND 2 Capsules at bedtime. 90 Capsule 11 4 Active Gabapentin 300 MG Oral Capsule (Neurontin)Indicati ons:Hip pain, left Take one tablet by mouth in the morning and at noon and two tablets by mouth before bed. 120 Capsule 4 12/07/19 24 Discontinued documented as of this encounter (statuses as of 12/07/2023) Active Problems Problem Noted Date Diagnosed Date [...] cardiomyopathy 07/18/2018 Coronary artery disease invo lving [place] coronary artery of [place] heart without angina pectoris 05/08/2018 Anxiety state [...] Overview: Modified by Acute [place] Protocol #5. [facility] right coronary bare metal stents S/P angioplasty with stent 09/07/2006 History of tobacco use documented as of this encounter (statuses as of 12/07/2023) Resolved Problems Problem Noted Date Diagnosed Date [...] 08/03/2023 Overview: Per CKD protocol Atherosclerosis of [place] co ronary artery without angina pectoris 07/28/2023 [...] for Patients with Cardiovascular Disease Project #: [id number] PI: Peyton Conn MD [phone] GENOMICS CARDIO RESEARCH OTHER*[id number] 01/15/2007 06/28/2016 Overview: Renamed Per Clinical Trials Billing Project. Study Title: Genomic Markers for Patients with Cardiovascular Disease Project #: [id number] PI: Peyton Conn MD [phone] LV (left ventricular) mural thrombus 10/30/2006 12/28/2017 Tobacco use disorder 09/07/2006 010 Acute inferior myocardial infarction 08/19/2006 12/11/2008 Overview: Modified by Acute NM Protocol #5. [facility] right coronary bare metal stents EXAMINATION OF PARTICIPANT I N CLINICAL TRIAL - HORIZONS 08/19/2006 09/04/2009 Overview: Renamed Per Clinical Trials Billing Project. [facility] AMI clinical trial 4 Single blind trial comparing heparin and IIB/IIIA with bivalirudin, and Taxus vs bare metal stent. Patient Follow-up for 5 years Tangled Yarn Worker: Trent Verduzco [phone] [facility] Clinical Trial*[id number] 08/19/2006 09/08/2014 Overview: Renamed Per Clinical Trials Billing Project. [facility] AMI clinical trial 263 Single blind trial comparing heparin and IIB/IIIA with bivalirudin, and Taxus vs bare metal stent. Patient Follow-up for 5 years Tangled Yarn Worker: Trent Verduzco [phone] Menopause 08/29/2002 02/23/2017 LOC PRIM [id number] 05/29/200206/23 Dyslipidemia, goal to be determined 05/29/2002 05/07/2009 Overview: Per Lipid Taxonomy. 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 Patient presents to pain RIM clinic for return visit. Referring Physician: Dr. Roman Ennis Medication Agreement: on file 07/18/[address] Ennis Patient's Pharmacy: [facility] Chief Complaint: sciatic pain HPI: Notes had a hip fracture after suffering a fall in her garage while having a cigarette Notes she was stopped on oxycodone due to fear of overuse which was reported by her daughter in law Notes she is having some issues with her daughter in law and son who would like her to move to a prison home verus living alone Notes she will need surgery for an occulusion Notes she can no longer drive but is having issues with transportation, recommending ride service Notes she takes 1 tablet in the morning, 1 at lunch time and 1 at dinner time and then 1 in the middle of the night when she wakes up for pain Notes she attends [employer] on Monday and Monday and is active in the woman's group Notes she has been cleaning/cooking for herself Psych History: anxiety state Cardiac Hx: NM Renal Hx: kidney disease Hepatic Hx: Hep C-cured Other: COPD Illicit Substance/Rx/Alcohol Abuse: no Opioid Risk Assessment Tool (BRQ): 0 Functional Goal: QOL Current Pain Level (09/07/23): stable Pain Level (07/18/23): stable Pain Level (04/18/23): [...] -nausea Current Pain Medications: Oxycodone 5 mg [id number] max 4 per day/100 per month (03/29/22 for 100 tabs) Gabapentin 300 mg BID and 600 mg HS * elishais Creatinine Clearance: Serum creatinine: 1.4 mg/dL (H) 10/27/23 0519 Estimated creatinine clearance: 31 mL/min (A) Creatinine Results: Recent Labs Units [...] BUN 43 (H) 6 - 20 mg/dL Creatinine 1.4 (H) 0.5 - 1.0 mg/dL Estimated Glomerular Filtration Rate 39 (L) >=60 mL/min Sodium 138 135 - 146 mmol/L Potassium 4.1 3.5 - 5.1 mmol/L Chloride 98 98 - 107 mmol/L CO2 30 22 - 32 mmol/L Anion Gap 10 7 - 15 mmol/L Glucose 104 70 - 120 mg/dL Albumin 3.6 (L) 3.8 - 5.0 g/dL AST 15 10 - 35 U/L Alkaline Phosphatase 67 35 - 130 U/L Bilirubin, Total 0.3 <=1.2 mg/dL Calcium 9.0 8.4 - 10.2 mg/dL Protein 5.8 (L) 6.0 - 8.3 g/dL ALT 9 (L) 10 - 35 U/L ASSESSMENT: Patient aware MTM is a clinical pharmacist visit, with focus on medication options for current diagnoses referred by Primary Care Provider for review and optimization. Focus of this visit is Medication Optimization. Current concerns: continued chronic pain Adherence: Reviewed current regimen, patient is adherent to regimen. Treatment options: continued current medication as pain is controlled Treatment concerns: concern for reported overuse, but patient disabuses this notion and states compliance with medication and UDS shows compliance as well Education provided: .discussed risks of opioid use and risk of misuse/abuse I have evaluated the patient for the [...] no change Pain Medications: Oxycodone 5 mg L3nwicx max 4 per day/100 per month (03/29/22 for 100 tabs) Gabapentin 300 mg BID and 600 mg HS * [email or web address] Patient verbalized understanding of the plan. Contact clinic with any issues. I spent a total of 30-39 minutes (exact time 31 mins) on the date of service in preparation, delivery, and documentation of the care provided to Radha Tong excluding any time spent in the performance of separately billed services. FOLLOW UP: Return to clinic in 12 weeks 03/07/2024 Mable Gonzalez [facility] Clinical Pharmacist - Saw Cleaner Medication Therapy Management Clinic 12/07/2023, 8:47 AM documented in this encounter Plan of Treatment Upcoming Encounters Date Type Department Care Team (Late st Contact Info) Description 12/12/2023 10:00 AM EDT Home Visit [facility] [address] [place] [address] Areli Washburn, LISA [address] [place] [address] 12/14/2023 10:30 AM EDT Office Visit Cardiology, [facility] [address] [place] [address] Clara Geller CRNP [address] [place] [address] 12/22/2023 1:00 PM EDT Office Visit Family Practice [facility] [address] [facility] [place] [address] Erica Marsh MD [address] [facility] [place], [place] [address] 03/07/2024 10:00 AM EDT Office Visit Pharmacy, [facility] [address] [facility] [place] [address] [facility] [address] [facility] [place] [address] 03/22/2024 10:30 AM EDT Cardiac Studies Cardiology, [facility] [address] [place] [address] [facility] [address] [facility] [place] [address] 06/25/2024 11:00 AM EST Office Visit [facility] [address] [place] [address] Erica Marsh MD [address] [place] [address] Scheduled Procedures Name Priority Associated Diagnoses Date/Ti [...] 023, 02/21/2022, 07/23/2019 CKD PHOS USE SMARTSET 36332 03/02/202402/19, 10/07/2022, 02/21/2022, Additional history exists GFR 04/27/2024 10/27/2023, 08/20, 07/18/2023, Additional history exists HbA1c 05/31/2024 11/29/2023, 02/19, 01/15/2007, Additional history exists CKD HGB USE SMARTSET 15631 10/26/202410/26, 10/27/2023, 09/07/2023, Additional history exists O2 ASSESSMENT COMPLETED IN PAST YEAR FOR COPD 11/28/2024 11/29/2023 Colonoscopy 07/03/2028 07/03/2023, 08/28/2012 DTaP,Tdap,and Td Vaccines (4 - Td or Tdap) 06/02/2032 06/02/2022, 02/11/2011, 05/22/1995 Pneumococcal Vaccine: 65+ Years Completed 02/23/2017, 10/22/2014, 02/26/2007 Hepatitis B Vaccine Completed 04/02/2018, 09/29/2017, 07/24/2017 *BASELINE EKG FOR HTN Completed 01/01/2020 , 08/09/2013, 07/30/2012 Zoster Vaccines Completed 01/20/2020, 07/23/2019 RETIRED - [...] thigh documented in this encounter Advance Directives * [...] Power of Attor zee? No Care Teams Mixer Whipped Topping Relationship Specialty Start Date End Date Roman Ennis III, MD [address] [place] [address] PCP - General Family Medicine 11/22/23 documented as of this encounter
--- OUTSIDE RECORDS SUMMARY | 2024-04-28 23:03 | External Medical Summary | Summary of Care ---
Author Name Unknown Organization [facility] Address [address] [facility] [address] Phone [phone] Care Team Providers Care Librarian Name Role Phone Loli NORWOOD MD, Roman Barraza Primary Care Provider [phone] Reason for Visit * Reason Comments Hospital Follow-Up Encounter Details Date Type Department Care Team (Late st Contact Info) Description 11/29/2023 11:00 AM EDT Office Visit Family Practice [facility] [address] [facility] [place] [address] Soham Cosby, DO [address] [facility] [place] [address] Monoplegia, upper limb, nondominant side S/P CVA (cerebrovascular acc) ([facility])*; DDD (degenerative disc disease), lumbar; Type 2 diabetes mellitus with peripheral vascular disease ([facility]) Allergies Active Allergy Reactions Criticality Noted Date Comments Isosorbide Mononitrate 12/24/2007 Severe headaches Nsaids 05/29/2002 Tramadol Hcl Nausea/vomiting Low 01/09/2008 UGI distress documented as of this encounter (statuses as of 12/08/2023) Medications Medication Sig Dispensed Refills Start Date End Date Status Furosemide 40 MG Oral Tablet (Lasix) Take 1 Tablet by mouth daily AND 0.5 Tablets daily at noon. 135 Tablet 3 3 Active Nystatin 902104 UNIT/GM External Powder (Nystop) Apply topically to affected area 3 times a day. Apply to area under breasts 60 g 3 4 Active Anoro Ellipta 62.5-25 MCG/ACT Inhalation Aerosol Powder Breath Activated (umeclidinium-vilan terol) INHALE ONE PUFF EVERY DAY 180 Blister Dosing Unit 06/13/202 4 Active Atorvastatin Calcium 20 MG Oral [...] Tablet 4 Active Vitamin D3 250 MCG (43384 UT) Oral Tablet Take by mouth. Active Gabapentin 300 MG Oral Capsule (Neurontin)Indicati ons:Hip pain, left Take one tablet by mouth in the morning and at noon and two tablets by mouth before bed. 120 Capsule 4 12/07/19 24 Discontinued Lisinopril 10 MG Oral Tablet (Prinivil) Take 1 Tablet by mouth in the morning. 30 Tablet 4 11/29/19 24 Discontinued documented as of this encounter (statuses as of 12/08/2023) Active Problems Problem Noted Date Diagnosed Date [...] cardiomyopathy 07/18/2018 Coronary artery disease invo lving [place] coronary artery of [place] heart without angina pectoris 05/08/2018 Anxiety state [...] Overview: Modified by Acute [place] Protocol #5. [facility] right coronary bare metal stents S/P angioplasty with stent 09/07/2006 History of tobacco use documented as of this encounter (statuses as of 12/08/2023) Resolved Problems Problem Noted Date Diagnosed Date [...] 08/03/2023 Overview: Per CKD protocol Atherosclerosis of [place] co ronary artery without angina pectoris 07/28/2023 [...] for Patients with Cardiovascular Disease Project #: [id number] PI: Peyton Conn MD [phone] GENOMICS CARDIO RESEARCH OTHER*[id number] 01/15/2007 06/28/2016 Overview: Renamed Per Clinical Trials Billing Project. Study Title: Genomic Markers for Patients with Cardiovascular Disease Project #: [id number] PI: Peyton Conn MD [phone] LV (left ventricular) mural thrombus 10/30/2006 12/28/2017 Tobacco use disorder 09/07/2006 010 Acute inferior myocardial infarction 08/19/2006 12/11/2008 Overview: Modified by Acute [place] Protocol #5. [facility] right coronary bare metal stents EXAMINATION OF PARTICIPANT I N CLINICAL TRIAL - HORIZONS 08/19/2006 09/04/2009 Overview: Renamed Per Clinical Trials Billing Project. [employer] AMI clinical trial 2004- 0264 Single blind trial comparing heparin and IIB/IIIA with bivalirudin, and Taxus vs bare metal stent. Patient Follow-up for 5 years Architecture Department Chair: Trent Espinozahip [phone] [facility] Clinical Trial*[id number] 08/19/2006 09/08/2014 Overview: Renamed Per Clinical Trials Billing Project. [facility] AMI clinical trial 263 Single blind trial comparing heparin and IIB/IIIA with bivalirudin, and Taxus vs bare metal stent. Patient Follow-up for 5 years Architecture Department Chair: Trent GeovannySarah Verduzco [phone] Menopause 08/29/2002 02/23/2017 LOC PRIM [id number] 05/29/200206/23 Dyslipidemia, goal to be determined 05/29/2002 05/07/2009 Overview: Per Lipid Taxonomy. 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 02/23/2017 documented as of this encounter (statuses as of 12/08/2023) Immunizations Name Administration Dates Next Due COVID-19 [...] Sign Reading Time Taken Comments Blood Pressure 130/86 11/29/2023 10:56 AM EDT Pulse 80 11/29/2023 10:56 AM EDT Temperature 36.9 C (98.4 F) 11/29/2023 10:56 AM E DT Respiratory Rate 18 11/29/2023 10:56 AM EDT Oxygen Saturation 92% 11/29/2023 10:56 AM EDT Inhaled Oxygen Concentration - - Weight 68.5 kg (151 lb) 11/29/2023 10:56 AM EDT Height - - Body Mass Index 27.65 09/07/2023 10:51 AM EDT documented in this encounter Progress Notes * Soham Cosby, - 11/29/2023 11:20 AM EDT Subjective: Radha Tong is a 78 year old female. Chief Complaint Patient presents with Hospital Follow-Up HPI: Pt here for hospital follow-up. We discussed her hip fracture. We discussed her vascular disease. We discussed how she was found in her garage. She was out there to smoke. The came in and found her on the floor. She does not rmember how she got out there. Per report from her daughter she was overusing her oxucodone. Her pupils were pinpoint. We disucssed that she has not seen Mable since June. She sees her in December. She cancelled her last visit. When she takes one pill in the morning of oxycodone. She then takes one around noon. 6 PM and then 11:30 to 12 midnight she takes one. She last took an oxycodone on 11/12. She hs better and worse days with pain. Terible in the morning. USes a walker. The pain is in her Lhip. She blames in on an occluded artery. 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 She says gabapentin doesnot help. She has been having knee pain also. PMHx, meds, and allergies reviewed Patient Active Problem List Diagnosis ADVANCE DIRECTIVE INFORMATION S/P angioplasty with stent OLD MYOCARDIAL INFARCT Dyslipidemia, goal LDL below 70 History of tobacco use History of colonic polyps Biventricular implantable cardioverter-defibrillator in situ Controlled substance agreement signed Hepatitis C antibody test positive Incomplete uterovaginal prolapse Cystocele, lateral Vaginal atrophy Coronary artery disease involving [place] coronary artery of [place] heart without angina pectoris Anxiety state History [...] diabetes mellitus with peripheral vascular disease (HCC) Current Outpatient Medications Medication Sig Dispense Refill Furosemide 40 MG Oral Tablet (Lasix) Take 1 Tablet by mouth daily AND 0.5 Tablets daily at noon. 135 Tablet 3 Nystatin 900579 UNIT/GM External Powder (Nystop) Apply topically to [...] 1 Tablet before bedtime. 60 Tablet 0 Gabapentin 300 MG Oral Capsule (Neurontin) Take one tablet by mouth in the morning and at noon and two tablets by mouth before bed. 120 Capsule 0 levETIRAcetam 500 MG Oral Tablet (Keppra) Take 1 Tablet by mouth in the morning and 1 Tablet beforebedtime. 60 Tablet 0 Metoprolol Succinate ER 50 MG Oral Tablet Extended Release 24 Hour (toPROL XL) Take 1 Tablet by mouth in the morning and 1 Tablet before bedtime. 30 Tablet 0 Nitroglycerin 0.4 MG Sublingual Tablet Sublingual (Nitrostat) DISSOLVE ONE TABLET UNDER THE TONGUE NEEDED FOR CHEST pain, maximum THREE doses 25 Tablet 0 Ondansetron HCl 4 MG Oral [...] 15 Tablet 0 Vitamin D3 250 MCG (04513 UT) Oral Tablet Take by mouth. No current facility-administered medications for this visit. Review of patient's allergies indicates: Allergen Reactions Imdur [Isosorbide Mononitrate] Severe headaches Nsaids Ultram [Tramadol Hcl] Nausea/vomiting UGI distress OBJECTIVE: BP 130/86 | Pulse 80 | Temp 36.9 C (98.4 F) (Tympanic) | Resp 18 | Wt 68.5 kg (151 lb) | SpO2 92% | BMI 27.65 kg/m | BSA 1.73 m Estimated body mass index is 27.65 kg/m as calculated from the following: Height as of 09/07/23: 1.574 m (5' 1.97"). Weight as of this encounter: 68.5 kg (151 lb). BP Readings from Last 3 Encounters: 11/29/23 130/86 11/10/23 110/60 11/09/23 88/58 Wt Readings from Last 3 Encounters: 11/29/23 68.5 kg (151 lb) 11/10/23 70.8 kg (156 lb) 10/11/23 70.1 kg (154 lb 9.6 oz) ROS: Negative except for above PHYSICAL EXAM: General: alert, healthy, and no distress Head: Normocephalic, No masses, lesions, tenderness or abnormalities ASSESSMENT/Plan Monoplegia, upper limb, nondominant side S/P CVA (cerebrovascular acc) (HCC) (Primary) - TOXICOLOGY, URINE SCREEN W/ CONFIRMATION; Future; Expected date: 11/29/2023 DDD (degenerative disc disease), lumbar - TOXICOLOGY, URINE SCREEN W/ CONFIRMATION; Future; Expected date: 11/29/2023 Type 2 diabetes mellitus with peripheral vascular disease (HCC) - HEMOGLOBIN A1C; Future; Expected date: 11/29/2023 I spent a total of 45 minutes on the date of service in preparation, delivery, and documentation ofthe care provided to this patient, excluding any time spent on the performance of any procedure or separately billable services. We had a long discussion about her pain history, her Oxycodone use and a plan going forward. I recognize that she does have a fractured hip but also fear another episode of passing out on the floor due to too much of this medication. We reviewd in detail the appropriate use. One pill at a time. I'll have her do a UDS today to make sure it is clear. If so I will restart her oxycodone. I also reached out to the [facility] pharmacy to have them schedule a sooner visits and review more about safe use of this drug. The above was discussed and understanding was expressed. Soham Cosby DO documented in this encounter Nursing Notes * Mili Landers LPN - 11/29/2023 10:53 AM EDT Radha Tong presents for hospital follow up. Medications & HM reviewed. documented in this encounter Plan of Treatment Upcoming Encounters Date Type Department Care Team (Late st Contact Info) Description 12/12/2023 10:00 AM EDT Home Visit [facility] [address] [address] Areli Washburn RN [address] [place] [address] 12/14/2023 10:30 AM EDT Office Visit Cardiology, [facility] [address] [address] Clara Geller CRNP [address] [place] [address] 12/22/2023 1:00 PM EDT Office Visit Family Practice [facility] [place] [address] [place] [address] Erica Marsh MD [address] [place] [address] 03/07/2024 10:00 AM EDT Office Visit Pharmacy, [facility] [address] [facility] [place] [address] Bam Tyson [facility] [address] [facility] [place] [address] 03/22/2024 10:30 AM EDT Cardiac Studies Cardiology, [facility] [address] [facility] [place] [address] [facility] [address] [facility] [place] [address] 06/25/2024 11:00 AM EST Office Visit Family Practice [facility] [address] [facility] [place] [address] Erica Marsh MD [address] [facility] [place] [address] Scheduled Procedures Name Priority Associated Diagnoses Date/Ti me COLONOSCOPY FLEXIBLE PROXIMA L DIAGNOSTIC Recall History of colonic polyps Health Maintenance Due Date Last Done Comments DISCUSS TOBACCO CESSATION (REFER TO SMARTSET #0403) 1947 Alpha-1 Antitrypsin 1965 Diabetic Foot Exam [...] 023, 02/21/2022, 07/23/2019 CKD PHOS USE SMARTSET 76813 03/02/202402/19, 10/07/2022, 02/21/2022, Additional history exists GFR 04/27/2024 10/27/2023, 08/20, 07/18/2023, Additional history exists HbA1c 05/31/2024 11/29/2023, 02/19, 01/15/2007, Additional history exists CKD HGB USE SMARTSET 71060 10/26/202410/26, 10/27/2023, 09/07/2023, Additional history exists O2 [...] as of this encounter Results * (ABNORMAL) HEMOGLOBIN A1C (11/29/2023 12:07 PM EDT) Hemoglobin A1C 6.2(H) 4.0 - 5.6 % 11/29/2023 9:43 PM EDT LABORATORY C Comment:The use of HbA1c to monitor glycemic status is based on normal hemoglobin and HbA composition. This test should not be used in patients with abnormal hemoglobin that affects the half life of the red blood cell or the in vivo glycation rates. Estimated Average Glucose 131(H) <126 mg/dL 11/29/2023 9:43 PM EDT LABORATORY [facility] Blood Venous blood specimen / Unknown Venipuncture / Unknown 11/29/2023 12:07 PM EDT 11/29/2023 12:07 PM EDT Shoam Diggs Alea DO LAB BLOOD ORDERABLE S LABORATORY [facility] [address] [place] [address] * TOXICOLOGY, URINESCREEN W/ CONFIRMATION (11/29/2023 12:07 PM EDT) [facility] Amphetamines Screen, U Negative Negative 11/29/2023 5:26 PM EDT LABORATORY [facility] Benzodiazepines Screen, U Negative Negative 11/29/2023 5:26 PM EDT LABORATORY [facility] Cannabinoids Screen, U Negative Negative 11/29/2023 5:26 PM EDT LABORATORY [facility] Cocaine Metabolite Screen, U Negative Negative 11/29/2023 5:26 PM EDT LABORATORY [facility] Fentanyl Screen, U Negative Negative 2023 5:26 PM EDT LABORATORY [facility] Hydrocodone Screen, U Negative Negative 11/29/2023 5:26 PM EDT LABORATORY [facility] Methadone Metabolite Screen, U Negative Negative 11/29/2023 5:26 PM EDT LABORATORY [facility] Morphine/Codeine Screen, U Negative Negative 11/29/2023 5:26 PM EDT LABORATORY [facility] Oxycodone Screen, U Negative Negative 11/28 5:26 PM EDT LABORATORY [facility] Urine Urine specimen obtained by clean catch procedure / Unknown Non-blood Collection / Unknown 11/29/2023 12:07 PM EDT 11/29/2023 12:07 PM EDT Narrative LABORATORY C - 11/29/2023 5:26 PM EDT Cutoff Concentrations: Drug Level Amphetamines 500 ng/mL Benzodiazepines 100 ng/mL Cannabinoids 50 ng/mL Cocaine Metabolite 150 ng/mL Fentanyl 1 ng/mL Hydrocodone / Hydromorphone 300 ng/mL Methadone Metabolite 100 ng/mL Morphine / Codeine 300 ng/mL Oxycodone / Oxymorphone 100 ng/mL Screening results are presumptive and can only be used for medical purposes. Positive screening results are reflexed to confirmatory testing. 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 No Care Teams Librarian Relationship Specialty Start Date End Date Roman Ennis III, MD [address] [place] [address] PCP - General Family Medicine 11/22/23 documented as of this encounter
--- OUTSIDE RECORDS SUMMARY | 2024-04-28 23:03 | External Medical Summary | Summary of Care ---
Author Name Unknown Organization [facility] Address [address] [place] [address] Phone [phone] Care Team Providers Care Dump Attendant Name Role Phone Loli NORWOOD MD, Roman Barraza Primary Care Provider [phone] Reason for Visit * Reason Onset Date Comments Appointment 12/12/2023 Encounter Details Date Type Department Care Team (Late st Contact Info) Description 12/12/2023 Telephone [facility] [address] [place], [place] [id number] Services, Scheduling [address] [place] [address] Appointment Allergies Active Allergy Reactions Criticality Noted Date Comments Isosorbide Mononitrate 12/24/2007 Severe headaches Nsaids 05/29/2002 Tramadol Hcl Nausea/vomiting Low 01/09/2008 UGI distress documented as of this encounter (statuses as of 12/12/2023) Medications Medication Sig Dispensed Refills Start Date End Date Status Furosemide 40 MG Oral Tablet (Lasix) Take 1 Tablet by mouth daily AND 0.5 Tablets daily at noon. 135 Tablet 3 03/23/2023 Active Nystatin 149664 UNIT/GM External Powder (Nystop) Apply topically to [...] Tablet 11/02/2023 Active Vitamin D3 250 MCG (71829 UT) Oral Tablet Take by mouth. Active [...] as of this encounter (statuses as of 12/12/2023) Active Problems Problem Noted Date Diagnosed Date [...] cardiomyopathy 07/18/2018 Coronary artery disease invo lving [place] coronary artery of [place] heart without angina pectoris 05/08/2018 Anxiety state 05/08/2018 ADVANCE DIRECTIVE INFORMATION 03/23/2018 Overview: No, Advance Directive brochure offered , patient declined. Incomplete uterovaginal prolapse 09/29/2017 Cystocele, lateral 09/29/2017 Vaginal atrophy 09/29/2017 Hepatitis C antibody test positive 05/09/2017 Overview: HCV treated; SVR Confirmed 03/05/2018 Controlled substance agreement signed 02/23/2017 Biventricular implantable ca rdioverter-defibrillator in situ 08/07/2013 Last Assessment & Plan: Followed by [facility] [place] cardiology History of colonic polyps 09/04/2012 Overview: 09/01/2012: adenoma, repeat in 3 years ICD-10 update of inactive term Dyslipidemia, goal LDL below 70 05/07/2009 Overview: Per Lipid Taxonomy. OLD MYOCARDIAL INFARCT 12/11/2008 Overview: Modified by Acute [place] Protocol #5. [facility] [place] right coronary bare metal stents S/P angioplasty with stent 09/07/2006 History of tobacco use documented as of this encounter (statuses as of 12/12/2023) Resolved Problems Problem Noted Date Diagnosed Date [...] 08/03/2023 Overview: Per CKD protocol Atherosclerosis of [place] co ronary artery without angina pectoris 07/28/2023 [...] for Patients with Cardiovascular Disease Project #: [id number] PI: Peyton Conn MD [phone] GENOMICS CARDIO RESEARCH OTHER*[id number] 01/15/2007 06/28/2016 Overview: Renamed Per Clinical Trials Billing Project. Study Title: Genomic Markers for Patients with Cardiovascular Disease Project #: [id number] PI: Peyton Conn MD [phone] LV (left ventricular) mural thrombus 10/30/2006 12/28/2017 Tobacco use disorder 09/07/2006 010 Acute inferior myocardial infarction 08/19/2006 12/11/2008 Overview: Modified by Acute [place] Protocol #5. [facility] [place] right coronary bare metal stents EXAMINATION OF PARTICIPANT I N CLINICAL TRIAL - HORIZONS 08/19/2006 09/04/2009 Overview: Renamed Per Clinical Trials Billing Project. [employer] AMI clinical trial 263 Single blind trial comparing heparin and IIB/IIIA with bivalirudin, and Taxus vs bare metal stent. Patient Follow-up for 5 years Structural Worker: Trent Verduzco [phone] [facility] Clinical Trial*[id number] 08/19/2006 09/08/2014 Overview: Renamed Per Clinical Trials Billing Project. [facility] AMI clinical trial 2004- 7475 Single blind trial comparing heparin and IIB/IIIA with bivalirudin, and Taxus vs bare metal stent. Patient Follow-up for 5 years Structural Worker: Trent Verduzco [phone] Menopause 08/29/2002 02/23/2017 LOC PRIM [id number] 05/29/200206/23 Dyslipidemia, goal to be determined 05/29/2002 05/07/2009 Overview: Per Lipid Taxonomy. 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 02/23/2017 documented as of this encounter (statuses as of 12/12/2023) Immunizations Name Administration Dates Next Due COVID-19 [...] Telephone Encounter - Sariah Cordova OSA - 12/12/2023 2:07 PM EDT Request to move appt today due to RN off, appt set for first available 12/26, lmom documented in this encounter Plan of Treatment Upcoming Encounters Date Type Department Care Team (Late st Contact Info) Description 12/14/2023 10:30 AM EDT Office Visit Cardiology, [facility] [address] [address] Clara Geller CRNP [address] [place] [address] 12/22/2023 1:00 PM EDT Office Visit Family Practice [facility] [place] [address] [place] [address] Erica Marsh MD [address] [place] [address] 12/27/2023 4:00 PM EDT Home Visit [facility] at [facility] [address] [place] [address] Areli Washburn, LISA [address] [place] [address] 03/07/2024 10:00 AM EDT Office Visit Pharmacy, [facility] [address] [facility] [place] [address] [place] [address] 03/22/2024 10:30 AM EDT Cardiac Studies Cardiology, [facility] [address] [facility] [place] [address] [facility] [place] [address] 06/25/2024 11:00 AM EST Office Visit Family Practice [facility] [address] [place] [address] Erica Marsh MD [address] [place] [address] Scheduled Procedures Name Priority Associated Diagnoses Date/Ti me COLONOSCOPY FLEXIBLE PROXIMA L DIAGNOSTIC Recall History of colonic polyps Health Maintenance Due Date Last Done Comments DISCUSS TOBACCO CESSATION (REFER TO SMARTSET #4600) 1947 Alpha-1 Antitrypsin 1965 Diabetic Foot Exam [...] 023, 02/21/2022, 07/23/2019 CKD PHOS USE SMARTSET 36373 03/02/202402/19, 10/07/2022, 02/21/2022, Additional history exists GFR 04/27/2024 10/27/2023, 08/20, 07/18/2023, Additional history exists HbA1c 05/31/2024 11/29/2023, 02/19, 01/15/2007, Additional history exists CKD HGB USE SMARTSET 46870 10/26/202410/26, 10/27/2023, 09/07/2023, Additional history exists O2 [...] Power of Attor zee? No Care Teams Dump Attendant Relationship Specialty Start Date End Date Roman Ennis III, MD [address] [place] [address] PCP - General Family Medicine 11/22/23 documented as of this encounter
--- OUTSIDE RECORDS SUMMARY | 2024-04-28 23:03 | External Medical Summary | Continuity of Care Document ---
Author Name Unknown Organization [id number] Address [address] [place] [phone] Care Team Providers Care Manufacturing Controls Engineer Name Role Phone Roman Ennis Primary Care Physician [phone] [id number] Date(s): 12/06/23 - 12/06/23 [id number] [address] [place] [id number] Encounter Diagnosis Fracture of greater trochanter of left femur(Discharge Diagnosis) - 12/06/23 Discharge Disposition: Home or Self Care Attending Physician: MD Rosanne, Filiberto Angulo Allergies, Adverse Reactions, Alerts Substance Criticality Severity Reaction Reaction Severity Status Imdur headaches Active NSAIDs stomach issues Activ e traMADol vomit Active Medications Anoro Ellipta 62.5 mcg-25 mcg/inh inhalation powder Start: 11/07/23 8:44:00 AM EDT Start Date: 11/07/23 Status: Ordered atorvastatin 20 mg oral tablet Start: 11/07/23 8:45:00 AM EDT Start Date: 11/07/23 Status: Ordered clopidogrel 75 mg oral tablet Start: 11/07/23 8:44:00 AM EDT Start Date: 11/07/23 Status: Ordered Eliquis 5 mg oral tablet Start: 11/07/23 8:44:00 AM EDT Start Date: 11/07/23 Status: Ordered ferrous sulfate 325 mg (65 mg elemental iron) oral tablet Start: 11/07/23 8:44:00 AM EDT Start Date: 11/07/23 Status: Ordered furosemide 40 mg oral tablet Start: 11/07/23 8:44:00 AM EDT Start Date: 11/07/23 Status: Ordered gabapentin 300 mg oral capsule Start: 11/07/23 8:45:00 AM EDT Start Date: 11/07/23 Status: Ordered levETIRAcetam 500 mg oral tablet Start: 11/07/23 8:44:00 AM EDT Start Date: 11/07/23 Status: Ordered lisinopril 10 mg oral tablet Start: 11/07/23 8:45:00 AM EDT Start Date: 11/07/23 Status: Ordered Metoprolol Succinate ER 50 mg oral tablet, extended release Start: 11/07/23 8:45:00 AM EDT Start Date: 11/07/23 Status: Ordered nitroglycerin 0.4 mg sublingual tablet Start: 11/07/23 8:43:00 AM EDT Start Date: 11/07/23 Status: Ordered ondansetron 4 mg oral tablet Start: 11/07/23 8:43:00 AM EDT Start Date: 11/07/23 Status: Ordered oxyCODONE 5 mg oral tablet Start: 11/07/23 8:44:00 AM EDT, Refills: 0 Start Date: 11/07/23 Status: Ordered pantoprazole 40 mg oral delayed release tablet Start: 11/07/23 8:45:00 AM EDT Start Date: 11/07/23 Status: Ordered traZODone 50 mg oral tablet Start: 11/07/23 8:45:00 AM EDT Start Date: 11/07/23 Status: Ordered Vitamin B-12 1000 mcg oral tablet Start: 11/07/23 8:44:00 AM EDT Start Date: 11/07/23 Status: Ordered Mental Status 12/06/23 Barriers to Learning one year None evide nt Mandatory Health Literacy Documentation Yes Health Literacy Communication Barriers N ever Primary Language Uzbek Problem List Condition Confirmation Course Effective Dates Status H ealth Status Informant Fracture of greater trochanter of left femur Confirmed Active Postmenopause Confirmed Active Diagnosis Diagnosis Type Effective Dates Health Status Clinical Service Informant Fracture of greater trochanter of left femur Discharge Diagnosis 12/06/23 Non-Specified Social History Social History Type Response Smoking Status Never smoked cigaret david Sex Female Ortho Outpt Note * Kamala Guaman: TANNER Lay MD, Filiberto Angulo: MODIFY Event Display: Ortho Outpt Note Authored Date: [id number] Name:JEAN-CLAUDE MIRELES Patient Number:[id number] :[id number] Date of Service:12/06/2023 CHIEF COMPLAINT: Follow-up left greatertrochanteric fracture; DOI: 10/18/2023 HPI: Farooq Espana presents today forthe above notedinjury. Patientstates she is ambulating well with her cane and regular weightbearing. She only notes pain ifstanding for extended periods of time. She is getting at-home PT and is pleased with her progress. Patient does have peripheral artery disease and surgery to address the occlusion in her left lowerextremity is delay due to her current fracture. She is on Eliquis and Plavix. She istaking any Vitamin D supplementation. PHYSICAL EXAM: Focus on the left lower Short stride leg movements Non-antalgic gait using cane Good hip motion without pain 5/5 strength: knee flexion and extension, hip flexion/extension/abduction/adduction Active leg raise intact Slight tenderness over the left greater trochanter DIAGNOSTIC REVIEW: I obtained and personally interpretedAP pelvis and AP and lateral views of theleft hip, stored in [facility], which shows ano evidence of fracture. No hip arthritis. 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 Scattered radiodensities in the pelvis and right hip area. IMPRESSION: Left greater trochanter fracture, nondisplaced, healed PLAN: Continue with cane and full weightbearing Continue with Eliquis as prescribed. Her family doctor wants her to continue this because of her vascular situation. May begin process of proceeding with vascular surgery Continue Vitamin D3 supplement 1,000-2,000 IU daily. Check vitamin D level Continue PT until goals are met Follow-up in 6 weeks with PA. No x-rays needed ATTESTATION: Kamala Sloan, scribing for and in the presence of, Filiberto Lay, on this date,0:06:30. Electronic Signature on File Electronically Reviewed/Signed by: Kamala Guaman Author Signature Dt/Tm:12/06/2023 10:12 AM Electronically Reviewed/Signed by: Filiberto Lay MD Cosigner Signature Dt/Tm: 12/06/2023 03:51 PM Division of Sports Medicine [place] Patient Care team information Care Team Personnel Name: Burnett, MD, Roman E Position: Referring DIRECT Member Role: Primary Care Provider Address: Address: [address] [place] [address] [place]
--- NOTE | 2024-04-29 09:35 | Electrocardiogram Report ---
Test Reason : Blood Pressure : */* mmHG Vent. Rate : 57 BPM Atrial Rate : 57 BPM P-R Int : 152 ms QRS Dur : 138 ms QT Int : 498 ms P-R-T Axes : 60 -50 31 degrees QTcB Int : 484 ms Atrial-sensed ventricular-paced rhythm Abnormal ECG When compared with ECG of 26-Apr-2024 21:01, Vent. rate has decreased by 14 bpm Confirmed by Vineet Peoples ([id number]) on 04/29/2024 9:34:52 AM Referred By: REFERRED SELF Confirmed By: Vineet Peoples
== END 2024-04-28 15:50 | disposition home or self-care (01) | DRG 291 ==
LOC: ED 20:55 → 4W 04-27 01:39